=== PATIENT | male | born 1985 | race Caucasian/White ===

== ENCOUNTER 2023-04-19 08:51 | Observation (INO) ==
--- NOTE | 2023-04-19 09:10 | Emergency Department Note ---
Impression & Plan AMS (altered mental status), Acute hyperglycemia, Abnormal results of thyroid function studies, Acute urinary retention ED Provider Note NAME: CLAIRE VILLASENOR AGE: 38 SEX: M : 1985 ARRIVES VIA: Ambulance INFORMANT: Patient, ED PROVIDER(S): Brody Lino DO CHIEF COMPLAINT: Altered mental status HPI: The patient is a 38-year-old male who presented to the emergency department for an evaluation of altered mental status. The patient recently was at his methadone clinic appointment. He did receive his methadone. He had an episode where he became very confused. 911 was called. The patient at this time is awake and alert. The patient states he had a syncopal episode yesterday. He denies having any neck pain or back pain. He does complain of some abdominal pain. He denies chest pain or fever. He denies any alcohol or IV drug use. ROS: See above HPI for pertinent positives & negatives. A total of 10 systems reviewed and were otherwise negative. PAST MEDICAL HISTORY: See Below PAST SURGICAL HISTORY: See Below FAMILY HISTORY: See Below SOCIAL HISTORY: See Below HOME MEDICATIONS: See Below ALLERGIES: See Below VITALS: See Below PHYSICAL EXAMINATION: GENERAL: Patient is awake alert in no acute distress patient is resting comfortably and showing no signs of anxiety EYES: The conjunctivae are clear. The pupils are round and reactive. EARS, NOSE, MOUTH AND THROAT: The nose is without any evidence of any deformity. Mucous membranes are moist. Tongue is midline. NECK: The neck is nontender and supple. RESPIRATORY: Normal respiratory effort is noted there is no evidence of wheezing rhonchi or rales CARDIOVASCULAR: Regular rate and rhythm noted there no murmurs rubs or gallops normal S1 normal S2. GASTROINTESTINAL: The abdomen is soft. There is diffuse tenderness to palpation. There is no guarding rigidity. BACK: No midline tenderness or or step-off noted range of motion in flexion extension as well as rotation no signs of muscle spasm noted MUSCULOSKELETAL/EXTREMITIES: There is no evidence of gross deformity full range of motion is noted in the hips and shoulders. SKIN: There is no obvious evidence of any rash. There are no petechiae, pallor or cyanosis noted. NEUROLOGIC: Patient is awake alert and oriented x3 strength is symmetric patellar reflexes are 2+ bilaterally MEDICAL DECISION MAKING: The patient is a 38-year-old male who presented to the emergency department for an evaluation of altered mental status. The patient reportedly had an altered mental status after he received his methadone. He normally does not have this much lethargy afterwards. I discussed the patient's laboratory and radiographic studies with him. He was treated with IV fluids in the emergency department. He was also treated with IV insulin for hyperglycemia. The patient was found to have urinary retention. He was treated with a Rasheed catheter. Given the patient's findings I do not feel he would be a good candidate for outpatient management. For this reason I discussed his condition with the on-call [facility]ist. They have agreed to evaluate the patient in the emergency department for further management and disposition. Triage Nursing notes reviewed. Prior medical records reviewed Vital Signs: reviewed and remarkable for no significant abnormalities Differential diagnosis: Infection, hypoglycemia, electrolyte abnormalities, overdose, toxicologic, cardiac sources, intracerebral event, neurologic, trauma, as well as other pathologies. ER treatment provided: See below Diagnostics interpreted by me: ECG: EKG was obtained in the emergency department. My interpretation is normal sinus rhythm at 73 bpm. There is no ectopy. There is no acute ST segment abnormalities noted. No previous tracing was available. Cardiac Monitoring: An order was placed for continuous cardiac monitoring. The monitor shows a rate of 66 bpm with sinus rhythm. Laboratory studies: As stated above and show below. Imaging studies: See below. Radiographic imaging was reviewed by myself Consultation(s): I discussed this case with Sabine who is on-call for the [facility] Hospitalist group. Past Med/Surg History Medical History (Updated 04/19/23 @ 14:44 by Brody Lino DO) No significant past medical history Social History Smoking Status: Current every day smoker Preferred Language: Slovak Feels Safe at Home: Yes Allergies Allergies Allergy/AdvReac Type Severity Reaction Status Date / Time No Known Allergies Allergy Unverified 04/19/23 11:05 Home Meds Home Medications Medication Instructions Recorded Confirmed Methadone 114 mg PO UD 04/19/23 04/19/23 Results & Data (ED) Vital Signs Vital Signs - 24 hr 04/19/23 08:56 04/19/23 08:58 04/19/23 09:00 Temperature 36.9 C Temperature Source Oral Pulse Rate 75 75 74 Pulse Rate [Apical] Pulse Rate [Right Finger] Pulse Rate from SpO2 Sensor 75 74 Pulse Rhythm Regular Pulse Rhythm [Apical] Pulse Strength Normal Pulse Strength [Apical] Respiratory Rate 15 14 20 Respiratory Effort / Characteristics Non-Labored Respiratory Depth Normal Respiratory Pattern Regular Blood Pressure 125/90 Blood Pressure [Right Arm] Blood Pressure Mean 101 Blood Pressure Mean [Right Arm] Blood Pressure Position Sitting Blood Pressure Position [Right Arm] Pulse Oximetry 100 100 100 Oxygen Delivery Method Room Air Room Air Room Air Sepsis Recent Fever Within 48 Hours No Sepsis New/Unexplained Change in Mental Status No Sepsis Action Taken by Nursing No Action Required 04/19/23 09:10 04/19/23 09:12 04/19/23 09:17 Temperature Temperature Source Pulse Rate 73 72 Pulse Rate [Apical] Pulse Rate [Right Finger] Pulse Rate from SpO2 Sensor 75 Pulse Rhythm Pulse Rhythm [Apical] Pulse Strength Pulse Strength [Apical] Respiratory Rate 18 Respiratory Effort / Characteristics Respiratory Depth Respiratory Pattern Blood Pressure Blood Pressure [Right Arm] Blood Pressure Mean Blood Pressure Mean [Right Arm] Blood Pressure Position Blood Pressure Position [Right Arm] Pulse Oximetry 92 98 Oxygen Delivery Method Room Air Room Air Sepsis Recent Fever Within 48 Hours Sepsis New/Unexplained Change in Mental Status Sepsis Action Taken by Nursing 04/19/23 09:20 04/19/23 09:30 04/19/23 09:40 Temperature Temperature Source Pulse Rate 71 73 70 Pulse Rate [Apical] Pulse Rate [Right Finger] Pulse Rate from SpO2 Sensor 71 73 70 Pulse Rhythm Pulse Rhythm [Apical] Pulse Strength Pulse Strength [Apical] Respiratory Rate 12 13 14 Respiratory Effort / Characteristics Respiratory Depth Respiratory Pattern Blood Pressure Blood Pressure [Right Arm] Blood Pressure Mean Blood Pressure Mean [Right Arm] Blood Pressure Position Blood Pressure Position [Right Arm] Pulse Oximetry 100 99 98 Oxygen Delivery Method Room Air Room Air Room Air Sepsis Recent Fever Within 48 Hours Sepsis New/Unexplained Change in Mental Status Sepsis Action Taken by Nursing 04/19/23 09:50 04/19/23 10:29 04/19/23 10:30 Temperature Temperature Source Pulse Rate 70 73 69 Pulse Rate [Apical] Pulse Rate [Right Finger] Pulse Rate from SpO2 Sensor 70 70 69 Pulse Rhythm Pulse Rhythm [Apical] Pulse Strength Pulse Strength [Apical] Respiratory Rate 16 14 12 Respiratory Effort / Characteristics Respiratory Depth Respiratory Pattern Blood Pressure 110/84 108/80 Blood Pressure [Right Arm] Blood Pressure Mean 92 89 Blood Pressure Mean [Right Arm] Blood Pressure Position Blood Pressure Position [Right Arm] Pulse Oximetry 100 100 98 Oxygen Delivery Method Room Air Room Air Room Air Sepsis Recent Fever Within 48 Hours Sepsis New/Unexplained Change in Mental Status Sepsis Action Taken by Nursing 04/19/23 11:06 04/19/23 13:19 04/19/23 13:37 Temperature Temperature Source Pulse Rate 67 Pulse Rate [Apical] Pulse Rate [Right Finger] 68 Pulse Rate from SpO2 Sensor Pulse Rhythm Pulse Rhythm [Apical] Pulse Strength Pulse Strength [Apical] Respiratory Rate 14 Respiratory Effort / Characteristics Non-Labored Respiratory Depth Normal Respiratory Pattern Blood Pressure Blood Pressure [Right Arm] 117/84 112/78 Blood Pressure Mean Blood Pressure Mean [Right Arm] 95 89 Blood Pressure Position Blood Pressure Position [Right Arm] Semi-fowlers Pulse Oximetry 97 Oxygen Delivery Method Room Air Sepsis Recent Fever Within 48 Hours Sepsis New/Unexplained Change in Mental Status Sepsis Action Taken by Nursing 04/19/23 15:00 Temperature Temperature Source Pulse Rate Pulse Rate [Apical] 66 Pulse Rate [Right Finger] Pulse Rate from SpO2 Sensor Pulse Rhythm Pulse Rhythm [Apical] Regular Pulse Strength Pulse Strength [Apical] Normal Respiratory Rate 18 Respiratory Effort / Characteristics Non-Labored Respiratory Depth Normal Respiratory Pattern Regular Blood Pressure Blood Pressure [Right Arm] 123/88 Blood Pressure Mean Blood Pressure Mean [Right Arm] 99 Blood Pressure Position Blood Pressure Position [Right Arm] Pulse Oximetry 97 Oxygen Delivery Method Room Air Sepsis Recent Fever Within 48 Hours Sepsis New/Unexplained Change in Mental Status Sepsis Action Taken by [facility] Medications Current Medication List: was personally reviewed by me Laboratory Data Attestation: I reviewed the patient's lab results. 04/19/23 09:12 04/19/23 09:12 Lab Results 04/19/23 04/19/23 04/19/23 Range/Units 09:00 09:12 09:12 WBC 5.60 (4.8-10.8) K/ul RBC 3.97 L (4.70-6.10) M/uL Hgb 12.2 L (14.0-18.0) g/dl Hct 36.3 L (42.0-52.0) % MCV 91.4 (80.0-100.0) fL MCH 30.7 (25.0-34.0) pg MCHC 33.6 (32.0-36.0) g/dL RDW Std Deviation 44.2 (36.4-46.3) fL RDW Coeff of Nick 13.2 (11.5-14.5) % Plt Count 326 (130-400) K/uL MPV 9.6 (9.4-12.4) fL Immature Gran % (Auto) 0.2 % Neut % (Auto) 61.3 % Lymph % (Auto) 31.6 % [place] % (Auto) 5.0 % Eos % (Auto) 1.4 % Baso % (Auto) 0.5 % Neut # (Auto) 3.43 (1.40-6.50) K/uL Lymph # (Auto) 1.77 (1.20-3.40) K/uL [place] # (Auto) 0.28 (0.11-0.59) K/uL Eos # (Auto) 0.08 (0.00-0.50) K/uL Baso # (Auto) 0.03 (0.00-0.20) K/uL Immature Gran # (Auto) 0.01 (0.01-0.20) K/uL VBG pH (7.36-7.41) VBG pCO2 (38-50) mmHg VBG pO2 mmHg VBG HCO3 mmol/L VBG O2 Saturation % VBG Base Excess mEq/L Sodium 131 L (136-145) mmol/L Potassium 4.6 (3.5-5.1) mmol/L Chloride 95 L (98-107) mmol/L Carbon Dioxide 28 (21-32) mmol/L Anion Gap 8 (3-11) BUN 37 H (6-23) mg/dl Creatinine 1.27 (0.6-1.4) mg/dl Est Cr Clr Drug Dosing 57.6 ml/min Est GFR ( Amer) 83.7 ml/min Est GFR (Non-Af Amer) 72.2 ml/min BUN/Creatinine Ratio 29.1 H (10-20) Glucose 329 H* (70-99(Fasting)) mg/dl POC Glucose 367 H* (70-99) mg/dl Calcium 9.5 (8.6-10.3) mg/dl Magnesium 2.1 (1.7-2.4) mg/dl Total Bilirubin 0.4 (0.2-1.0) mg/dl AST 26 (13-39) U/L ALT 75 H (7-52) U/L Alkaline Phosphatase 102 (34-104) U/L Ammonia 19.0 (18-72) umol/L Total Creatine Kinase 88 (30-223) U/L Troponin I High Sens < 2.3 Cancelled (0-20) pg/ml Total Protein 8.2 (6.0-8.3) gm/dl Albumin 4.2 (3.4-5.0) gm/dl Globulin 4.0 (2.5-4.0) gm/dl Albumin/Globulin Ratio 1.1 (0.9-2) TSH 150.058 H (0.300-4.500) uIu/ml Free T4 0.52 L (0.61-1.60) ng/dl Urine Color Urine Appearance (Clear) Urine pH (4.5-7.5) Ur Specific [place] (1.000-1.030) Urine Protein (Negative) Urine Glucose (UA) (Negative) Urine Ketones (Negative) Urine Blood (Negative) Urine Nitrite (Negative) Urine Bilirubin (Negative) Urine Urobilinogen (Negative) Ur Leukocyte Esterase (Negative) Urine WBC (Auto) (0-5) /hpf Urine RBC (Auto) (0-4) /hpf U Hyaline Cast (Auto) (0-5) /lpf U Epithel Cells (Auto) (0-5) /lpf Urine Bacteria (Auto) (Negative) Urine Opiates Screen (Neg) Ur Methadone, Qual (Neg) Urine Barbiturates (Neg) Ur Phencyclidine (PCP) (Neg) U Amphetamin/Meth Scrn (Neg) MDMA (Ecstasy) Screen (Neg) U Benzodiazepines Scrn (Neg) Ur Cocaine Metabolite (Neg) U Marijuana (THC) Screen (Neg) Ethyl Alcohol mg/dL (<10.0) mg/dl 04/19/23 04/19/23 04/19/23 Range/Units 09:21 11:49 12:15 WBC (4.8-10.8) K/ul RBC (4.70-6.10) M/uL Hgb (14.0-18.0) g/dl Hct (42.0-52.0) % MCV (80.0-100.0) fL MCH (25.0-34.0) pg MCHC (32.0-36.0) g/dL RDW Std Deviation (36.4-46.3) fL RDW Coeff of Nick (11.5-14.5) % Plt Count (130-400) K/uL MPV (9.4-12.4) fL Immature Gran % (Auto) % Neut % (Auto) % Lymph % (Auto) % [place] % (Auto) % Eos % (Auto) % Baso % (Auto) % Neut # (Auto) (1.40-6.50) K/uL Lymph # (Auto) (1.20-3.40) K/uL [place] # (Auto) (0.11-0.59) K/uL Eos # (Auto) (0.00-0.50) K/uL Baso # (Auto) (0.00-0.20) K/uL Immature Gran # (Auto) (0.01-0.20) K/uL VBG pH 7.37 (7.36-7.41) VBG pCO2 53 H (38-50) mmHg VBG pO2 48 mmHg VBG HCO3 31 mmol/L VBG O2 Saturation 80.2 % VBG Base Excess 4.2 mEq/L Sodium (136-145) mmol/L Potassium (3.5-5.1) mmol/L Chloride (98-107) mmol/L Carbon Dioxide (21-32) mmol/L Anion Gap (3-11) BUN (6-23) mg/dl Creatinine (0.6-1.4) mg/dl Est Cr Clr Drug Dosing ml/min Est GFR ( Amer) ml/min Est GFR (Non-Af Amer) ml/min BUN/Creatinine Ratio (10-20) Glucose (70-99(Fasting)) mg/dl POC Glucose 273 H (70-99) mg/dl Calcium (8.6-10.3) mg/dl Magnesium (1.7-2.4) mg/dl Total Bilirubin (0.2-1.0) mg/dl AST (13-39) U/L ALT (7-52) U/L Alkaline Phosphatase (34-104) U/L Ammonia (18-72) umol/L Total Creatine Kinase (30-223) U/L Troponin I High Sens (0-20) pg/ml Total Protein (6.0-8.3) gm/dl Albumin (3.4-5.0) gm/dl Globulin (2.5-4.0) gm/dl Albumin/Globulin Ratio (0.9-2) TSH (0.300-4.500) uIu/ml Free T4 (0.61-1.60) ng/dl Urine Color Yellow Urine Appearance Clear (Clear) Urine pH 6.0 (4.5-7.5) Ur Specific [place] 1.029 (1.000-1.030) Urine Protein Trace H (Negative) Urine Glucose (UA) 3+ H (Negative) Urine Ketones Trace H (Negative) Urine Blood Negative (Negative) Urine Nitrite Negative (Negative) Urine Bilirubin Negative (Negative) Urine Urobilinogen Negative (Negative) Ur Leukocyte Esterase Negative (Negative) Urine WBC (Auto) 0 (0-5) /hpf Urine RBC (Auto) 0-4 (0-4) /hpf U Hyaline Cast (Auto) 0 (0-5) /lpf U Epithel Cells (Auto) 0-5 (0-5) /lpf Urine Bacteria (Auto) Negative (Negative) Urine Opiates Screen Neg (Neg) Ur Methadone, Qual Pos H (Neg) Urine Barbiturates Neg (Neg) Ur Phencyclidine (PCP) Neg (Neg) U Amphetamin/Meth Scrn Pos H (Neg) MDMA (Ecstasy) Screen Pos H (Neg) U Benzodiazepines Scrn Neg (Neg) Ur Cocaine Metabolite Neg (Neg) U Marijuana (THC) Screen Neg (Neg) Ethyl Alcohol mg/dL < 10.0 (<10.0) mg/dl Administered Medications Discontinued Medications Sodium Chloride (Nss) 1,000 mls @ 999 mls/hr IV .Q1H1M TERRY Stop: 04/19/23 10:15 Last Infusion: 04/19/23 10:34 Dose: Infused Documented By: Admin: 04/19/23 09:28 Dose: 999 mls/hr Documented By: TONO Sodium Chloride (Nss) 1,000 mls @ 999 mls/hr IV .Q1H1M ONE Stop: 04/19/23 12:04 Last Infusion: 04/19/23 12:12 Dose: Infused Documented By: MARY BETH Admin: 04/19/23 11:11 Dose: 999 mls/hr Documented By: ANIL Insulin Human Regular (Novolin-R Insulin Per Unit Charge) 5 units IV NOW STA Stop: 04/19/23 11:05 Last Admin: 04/19/23 11:11 Dose: 5 units Documented By: ANIL Co-signed By: MARY BETH Ioversol (Optiray 320 500ml) 94 ml IV ONCE ONE Stop: 04/19/23 10:45 Last Admin: 04/19/23 10:44 Dose: 94 ml Documented By: JUAN Imaging Data Attestation: I personally reviewed and interpreted this imaging study as follows: My Impression: CT of the brain was obtained in the emergency department. My interpretation is no intracranial hemorrhage or mass effect, final report below. CT of the abdomen and pelvis was obtained in the emergency department. My interpretation is no free air or signs of bowel obstruction, distended bladder was noted. Final report below. 1 view chest x-ray was obtained in the emergency department. My interpretation is no free air or definite infiltrate, final report below. Radiologist's Impression: Abdomen/Pelvis CT 04/19/23 09:[address] WITH IV CONTRAST CT DOSE: 1255.24 mGy.cm HISTORY: Lower abdominal pain. TECHNIQUE: Multiaxial CT images of the abdomen and pelvis were performed following the use of intravenous contrast. A dose lowering technique was utilized adhering to the principles of ALARA. COMPARISON STUDY: None. FINDINGS: Mild bronchiectasis and a few linear scarlike density seen within the periphery of the lung bases. This is likely chronic. No pneumoperitoneum. No pneumatosis. Subtle deformity and sclerosis at the superior endplates of T9 and T10 likely represent chronic compression deformities. No acute fractures identified. Mild body wall edema. The liver, gallbladder, pancreas, spleen, and adrenal glands are unremarkable. There is a punctate stone within the upper pole the right kidney. The kidneys enhance normally. There is mild bilateral hydronephrosis. This is likely due to the severely distended bladder. No ureteral stones identified. There is mild bladder wall thickening for the degree of distention. Trace ascites within the right lower quadrant is noted. No retroperitoneal or pelvic lymphadenopathy. Mild calcified plaque within the normal caliber abdominal aorta. The main portal vein is patent. Moderate fecal retention. Questionable mild thickening throughout the colon and rectum. This could represent a low-grade proctocolitis. Normal appendix. No dilated loops of bowel to suggest an obstruction. IMPRESSION: 1. Severely distended bladder with mild bladder wall thickening. This could be due to chronic outlet obstruction and/or an associated cystitis. Rasheed catheterization recommended for decompression. In addition, a urinalysis is suggested to assess for a cystitis. 2. Mild bilateral hydronephrosis which is likely due to the severely distended bladder. 3. Right-sided nephrolithiasis. 4. Normal appendix. 5. No evidence for a bowel obstruction. 6. Trace ascites. 7. Questionable mild thickening throughout the colon and rectum. This could represent a low-grade proctocolitis. 8. Additional findings as described above. ACT 112: Negative or not required by law. Electronically signed by: Evgeny Scott M.D. 04/19/2023 11:22 AM Chest X-Ray 04/19/23 09:06 XR chest 1V portable CLINICAL HISTORY: weakness TECHNIQUE: Single frontal radiograph of the chest was obtained. Comparison: None available at the time of this dictation. FINDINGS: No lines and tubes are seen. The cardiomediastinal silhouette is normal. The lungs are clear. No evidence of pleural effusion or pneumothorax. IMPRESSION: No acute chest disease. ACT 112: Negative or not required by law. Electronically signed by: Enrico Hamilton M.D. 04/19/2023 9:[address] 04/19/23 09:07 CT head/brain wo con CLINICAL HISTORY: ams Technique: Contiguous axial CT images of the head were acquired from the base of the skull to the vertex without intravenous contrast administration. Images were viewed in brain, subdural and bone windows. Automated dose lowering techniques and/or adjustment according to patient size were utilized for this exam. Comparison: None available at the time of this dictation. Findings: The ventricles, basal cisterns, and cerebral sulci are normal. There is no acute intracranial hemorrhage or evidence of acute territorial infarction. Neither mass effect, shift of the midline structures, nor abnormal extra-axial fluid collections are shown. Imaged portions of the paranasal sinuses and mastoid air cells are clear. The orbits appear normal. There are no acute fractures of the calvaria or scalp swelling. Impression: No acute intracranial hemorrhage, no evidence of acute territorial infarction or other acute intracranial disease process. ACT 112: Negative or not required by law. Electronically signed by: Enrico Hamilton M.D. 04/19/2023 11:13 AM Discharge Plan Visit Data Chief Complaint: Illness Stated Complaint: CONFUSION ED Provider: Brody Lino Discharge Problem: AMS (altered mental status), Acute hyperglycemia, Abnormal results of thyroid function studies, Acute urinary retention Patient Disposition: Being Evaluated by Hospitalist Forms Stand Alone Forms: My [facility], Important Visit Information Prescriptions Prescriptions: No Action Methadone 114 mg PO UD Rx Instructions: Per caregiver, pt visits clinic for his doses. Referrals Referrals: PCP,NO [Physician] - Discharge Problem: AMS (altered mental status) Qualifiers: Altered mental status type: unspecified Qualified Code(s): R41.82 - Altered mental status, unspecified
[2023-04-19] MEDS: SODIUM CHLORIDE 0.9% 1,000 ML IV SCH ×2 (09:28→17:56)
[2023-04-19 09:40] LABS: Basophils # (auto) 0.03 K/uL (0.00-0.20); Basophils % (auto) 0.5 %; Eosinophils # (auto) 0.08 K/uL (0.00-0.50); Eosinophils % (auto) 1.4 %; Hematocrit (blood only) 36.3 % (42.0-52.0); Hemoglobin 12.2 g/dl (14.0-18.0); Immature Granulocytes # (auto) 0.01 K/uL (0.01-0.20); Immature Granulocytes % (auto) 0.2 %; Lymphocytes # (auto) 1.77 K/uL (1.20-3.40); Lymphocytes % (auto) 31.6 %; Mean Corpuscular Hemoglobin 30.7 pg (25.0-34.0); Mean Corpuscular Hgb Conc 33.6 g/dL (32.0-36.0); Mean Corpuscular Volume 91.4 fL (80.0-100.0); Mean Platelet Volume 9.6 fL (9.4-12.4); Monocytes # (auto) 0.28 K/uL (0.11-0.59); Neutrophils # (auto) 3.43 K/uL (1.40-6.50); Neutrophils % (auto) 61.3 %; Platelet Count 326 K/uL (130-400); RDW Coefficient of Variation 13.2 % (11.5-14.5); RDW Standard Deviation 44.2 fL (36.4-46.3); Red Blood Count 3.97 M/uL (4.70-6.10)
[2023-04-19 09:41] LABS: Base Excess VBG 4.2 mEq/L; HCO3 VBG 31 mmol/L; Oxygen Saturation VBG 80.2 %; PCO2 VBG 53 mmHg (38-50); PO2 VBG 48 mmHg; pH VBG 7.37 (7.36-7.41)
[2023-04-19 09:57] LABS: Alanine Aminotransferase 75 U/L (7-52); Albumin Globulin Ratio 1.1 (0.9-2); Albumin Level 4.2 gm/dl (3.4-5.0); Alkaline Phosphatase 102 U/L (34-104); Anion Gap 8 (3-11); Aspartate Aminotransferase 26 U/L (13-39); BUN Creatinine Ratio 29.1 (10-20); Bilirubin,Total 0.4 mg/dl (0.2-1.0); Blood Urea Nitrogen 37 mg/dl (6-23); Calcium 9.5 mg/dl (8.6-10.3); Carbon Dioxide 28 mmol/L (21-32); Chloride 95 mmol/L (98-107); Creatine Kinase 88 U/L (30-223); Creatinine Clr Calc Pharmacy 57.6 ml/min; Est GFR (African American) 83.7 ml/min; Est GFR (Non-African American) 72.2 ml/min; Glucose 329 mg/dl (70-99(Fasting)); Magnesium 2.1 mg/dl (1.7-2.4); Potassium 4.6 mmol/L (3.5-5.1); Sodium 131 mmol/L (136-145); Total Protein 8.2 gm/dl (6.0-8.3)
--- NOTE | 2023-04-19 09:57 | XRay Report ---
XR chest 1V portable CLINICAL HISTORY: weakness TECHNIQUE: Single frontal radiograph of the chest was obtained. Comparison: None available at the time of this dictation. FINDINGS: No lines and tubes are seen. The cardiomediastinal silhouette is normal. The lungs are clear. No evid ence of pleural effusion or pneumothorax. IMPRESSION: No acute chest disease. ACT 112: Negative or not required by law. Electronically signed by: Enrico Hamilton M.D. 04/19/2023 9:55 AM
[2023-04-19] MEDS: OPTIRAY 320 500ml IV ONE (10:44)
[2023-04-19] MEDS: NovoLIN-R INSULIN PER UNIT CHARGE IV STA (11:11)
[2023-04-19] MEDS: SODIUM CHLORIDE 0.9% 1,000 ML IV ONE (11:11)
--- NOTE | 2023-04-19 11:14 | CT Scan Report ---
CT head/brain wo con CLINICAL HISTORY: ams Technique: Contiguous axial CT images of the head were acquired from the base of the skull to the robbie ludy without intravenous contrast administration. Images were viewed in brain, subdural and [facility]. Automated dose lowering techniques and/or adjustment according to patient size were utilized for this exam. Comparison: None available at the time of this dictation. Findings: The ventricles, basal cisterns, and cerebral sulci are normal. There is no acute intracranial hemorrh age or evidence of acute territorial infarction. Neither mass effect, shift of the midline structures , nor abnormal extra-axial fluid collections are shown. Imaged portions of the paranasal sinuses and mastoid air cells are clear. The orbits appear normal. There are no acute fractures of the calvaria or scalp swelling. Impression: No acute intracranial hemorrhage, no evidence of acute territorial infarction or other acute intracra nial disease process. ACT 112: Negative or not required by law. Electronically signed by: Enrico Hamilton M.D. 04/19/2023 11:13 AM
[2023-04-19 11:23] LABS: Thyroid Stimulating Hormone 150.058 uIu/ml (0.300-4.500); Troponin I High Sensitivity < 2.3 pg/ml (0-20)
--- NOTE | 2023-04-19 11:24 | CT Scan Report ---
ABDOMEN AND PELVIS CT WITH IV CONTRAST CT DOSE: 1255.24 mGy.cm HISTORY: Lower abdominal pain. TECHNIQUE: Multiaxial CT images of the abdomen and pelvis were performed following the use of intrave nous contrast. A dose lowering technique was utilized adhering to the principles of ALARA. COMPARISON STUDY: None. FINDINGS: Mild bronchiectasis and a few linear scarlike density seen within the periphery of the lung bases. This is likely chronic. No pneumoperitoneum. No pneumatosis. Subtle deformity and sclerosis a t the superior endplates of T9 and T10 likely represent chronic compression deformities. No acute fra ctures identified. Mild body wall edema. The liver, gallbladder, pancreas, spleen, and adrenal glands are unremarkable. There is a punctate stone within the upper pole the right kidney. The kidneys enha nce normally. There is mild bilateral hydronephrosis. This is likely due to the severely distended bl adder. No ureteral stones identified. There is mild bladder wall thickening for the degree of distent ion. Trace ascites within the right lower quadrant is noted. No retroperitoneal or pelvic lymphadenop athy. Mild calcified plaque within the normal caliber abdominal aorta. The main portal vein is patent . Moderate fecal retention. Questionable mild thickening throughout the colon and rectum. This could represent a low-grade proctocolitis. Normal appendix. No dilated loops of bowel to suggest an obstruc tion. IMPRESSION: 1. Severely distended bladder with mild bladder wall thickening. This could be due to chronic outlet obstruction and/or an associated cystitis. Rasheed catheterization recommended for decompression. In ad dition, a urinalysis is suggested to assess for a cystitis. 2. Mild bilateral hydronephrosis which is likely due to the severely distended bladder. 3. Right-sided nephrolithiasis. 4. Normal appendix. 5. No evidence for a bowel obstruction. 6. Trace ascites. 7. Questionable mild thickening throughout the colon and rectum. This could represent a low-grade pro ctocolitis. 8. Additional findings as described above. ACT 112: Negative or not required by law. Electronically signed by: Evgeny Scott M.D. 04/19/2023 11:22 AM
--- NOTE | 2023-04-19 11:53 | Electrocardiogram Report ---
Test Reason : Blood Pressure : / mmHG Vent. Rate : 073 BPM Atrial Rate : 073 BPM P-R Int : 126 ms QRS Dur : 084 ms QT Int : 438 ms P-R-T Axes : 081 087 066 degrees QTc Int : 482 ms Normal sinus rhythm ST elevation, consider early repolarization, pericarditis, or injury Prolonged QT Abnormal ECG No previous ECGs available Confirmed by Brody Nguyễn ([id number]) on 04/19/2023 11:52:56 AM Referred By: REFERRED SELF Confirmed By:rBody Nguyễn
[2023-04-19 12:00] LABS: T4 Free Thyroxine 0.52 ng/dl (0.61-1.60)
[2023-04-19 12:48] LABS: Appearance Urine Clear (Clear); Bacteria Urine Automated Negative (Negative); Bilirubin Urine Negative (Negative); Blood Urine Negative (Negative); Cast Urine Automated 0 /lpf (0-5); Color Urine Yellow; Epithelial Cell Urine Auto 0-5 /lpf (0-5); Glucose Urine UA 3+ (Negative); Ketones Urine Trace (Negative); Leukocyte Esterase Urine Negative (Negative); Nitrite Urine Negative (Negative); Protein Urine Trace (Negative); RBC Urine Automated 0-4 /hpf (0-4); Specific Gravity Urine 1.029 (1.000-1.030); Urobilinogen Urine Negative (Negative); WBC Urine Automated 0 /hpf (0-5)
[2023-04-19 13:31] LABS: Amphetamines+Metham, Urine Pos (Neg); Barbiturates, Urine Neg (Neg); Benzodiazepine, Urine Neg (Neg); Cocaine, Urine Neg (Neg); MDMA (Ecstacy), Urine Pos (Neg); Marijuana, Urine Neg (Neg); Methadone, Urine Pos (Neg); Opiate, Urine Neg (Neg); Phencyclidine, Urine Neg (Neg)
--- NOTE | 2023-04-19 15:09 | History & Physical Report ---
Date of Service April 19, 2023 Assessment & Plan (1) AMS (altered mental status): (2) Methamphetamine use: (3) Methadone use: Plan: This is a 38 yo M with a PMH of poorly controlled type 1 diabetes, hypothyroidism, mood disorder, history of opioid use disorder now on methadone, methamphetamine abuse, tobacco use and other medical problems listed below who was sent over from a methadone clinic in [place] with altered mental status. Developed AMS while at methadone clinic after dose, sent to [facility] ED CT head No acute intracranial hemorrhage, no evidence of acute territorial infarction or other acute intracranial disease process VSS, no leukocytosis, initial glucose 329, no anion gap Endorses smoking meth 5 days ago, UDS positive for methadone, meth and ecstasy/mdma Initially concerned for possible serotonin syndrome but not taking his ser traline or Seroquel on his outpatient med list - only taking insulin somewhat regularly Lethargic but awakens and answers questions appropriately, A&Ox3 Afebrile, no tremulousness, no focal neuro deficit Continue gentle fluids, blood cultures pending, monitor on tele, reassess resuming methadone in AM based on mentation (4) Diabetes type I: Plan: A1c 11.3 in Jan 2023, repeat a1c tomorrow AM Hold home agents SSI while in-patient Glycemic consult placed given poor compliance BSG AC HS (5) Abnormal results of thyroid function studies: (6) Hypothyroidism: Plan: TSH 150, free T4 0.52 Last took levothyroxine 1 week ago and since ran out Outpatient TFTs consistently abnormal in setting of noncompliance Given missed home dose, continue Follow up with PCP for repeat TFTs (7) Acute urinary retention: Plan: Denies history of urinary retention CT abd/pelvis with severely distended bladder with mild bladder wall thickening. This could be due to chronic outlet obstruction and/or an associated cystitis. Bansal catheterization recommended for decompression. In addition, a urinalysis is suggested to assess for a cystitis. Mild bilateral hydronephrosis which is likely due to the severely distended bladder. Abdominal fullness resolved since bansal placed Routine urology consult given urinary retention UA without evidence of UTI (8) Bipolar disorder: Plan: Not currently on any psych medications (9) Tobacco use disorder: Plan: Smoking cessation recommended. Declined offer for nicotine patch (10) Underweight: Plan: Underweight with BMI of 18 Nutrition assessment, likely protein calorie malnutrition (11) Non compliance w medication regimen: Plan: DVT Ppx: SQ heparin Code status: FULL PCP: [facility]: admitted to pcu Patient seen in collaboration with Dr. Ceja. Please see addendum. I spent a total of 75 minutes coordinating, documenting, and providing care for this patient excluding time spent in the performance of separately billed services. History of Present Illness Chief Complaint: Altered mental status Primary Care Provider: vA Graves MD This is a 38 yo M with a PMH of poorly controlled type 1 diabetes, hypothyroidism, mood disorder, history of opioid use disorder now on methadone, methamphetamine abuse, tobacco use and other medical problems listed below who was sent over from a methadone clinic in [place] with altered mental status. Patient is currently residing at a homeless fpc in [place]. Ambulates with a cane at baseline due to left foot drop thought to be due to n erve damage from a prolonged hospitalization. Is prescribed multiple medications including gabapentin, Zoloft and Seroquel but has not taking those currently. Only medications he takes is insulin, which she states he last took this morning and levothyroxine which she last took 1 week ago and since ran out. Endorses smoking methamphetamine 5 days ago and felt okay afterwards until his time at the methadone clinic this morning. After receiving medication this morning, had a reportedly acute episode of confusion and did not return to baseline so was sent to the ED for further evaluation. States he smoked meth in the setting of taking methadone a few months prior and did not have a reaction like this. Denies any IV drug use. Currently feels worn out and sleepy but no longer endorsing confusion. No hallucinations. No headache, visual changes, lightheadedness, chest pain, palpitations, shortness of breath, nausea, vomiting, abdominal pain, dysuria, hematuria, diarrhea or constipation. States he did have some lower abdominal discomfort prior to arrival that is since resolved with Bansal catheter placement. Allergies Allergy/AdvReac Type Severity Reaction Status Date / Time No Known Allergies Allergy Unverified 04/19/23 11:05 Home Medications Medication Instructions Recorded Confirmed Type Methadone 114 mg PO DAILY 04/19/23 04/19/23 History insulin aspart U-100 100 unit/mL 0 - 12 unit subcut QID 04/19/23 04/19/23 History subcutaneous solution (Novolog U-100 Insulin aspart) insulin glargine 100 unit/mL (3 18 unit subcut PM 04/19/23 04/19/23 History mL) subcutaneous pen (Lantus Solostar U-100 Insulin) levothyroxine 88 mcg tablet 88 mcg PO DAILY 04/19/23 04/19/23 History Past Med/Surg History Medical History (Updated 04/19/23 @ 16:47 by Sabine Leblanc PA-C) Opioid use disorder Bipolar disorder Tobacco use disorder Non compliance w medication regimen Hypothyroidism Diabetes type I No significant past medical history Surgical History (Updated 04/19/23 @ 16:13 by Sabine Leblanc PA-C) No pertinent past surgical history Family History Other Alcohol dependence with other alcohol-induced disorder Mood disorder Social History Smoking Status: Current every day smoker Tobacco Type: Cigarettes packs per day: 0.5; Hx Alcohol Use: No Hx Substance Use: Yes Non-Prescribed Medications: Methamphetamines Last Used Substance: Days (ago) Preferred Language: Mauritian [employer] Required: No Beliefs That Will Affect Care: None Current Living Situation: Homeless Current Living Situation Comment: homeless fpc Other Information That Helps Us Care for You: No Feels Safe at Home: Yes Safety Concerns: Feels Safe At This Time Assistive Devices: Cane Review of Systems Review of Systems: At least ten systems reviewed and negative except as noted in the HPI. Physical Exam Physical Exam: General Appearance: WD/WN, vitals as above, NAD, sitting up in bed, lethargic but awakens and answers questions appropriately, thin and frail appearing Head: normocephalic, atraumatic Eyes: normal inspection, PERRL, conjunctivae normal, anicteric sclerae ENT: external ear and nose normal, oropharynx with dry mucous membranes, edentulous Neck: normal visual inspection, trachea midline, no thyromegaly Respiratory: normal respiratory effort, lungs clear to auscultation, no wheeze, rales, rhonchi. No accessory muscle use Cardiovascular: regular rate, rhythm, no murmur, normal peripheral pulses, no BLE edema. Vessels: no JVD Chest: normal inspection of chest Abdomen/GI: normal bowel sounds, soft, nontender, no hepatosplenomegaly : Bansal Extremities/Musculoskeletal: no cyanosis or clubbing, extremities motor strength 5/5 Neurologic: PERRL, EOMI, accommodation nl, no face palsy, no dysarthria, CN's II-XI intact bilaterally and moves all extremities Psychiatric: A+Ox3, euthymic affect Skin: no rashes, normal color, warm/dry Results & Data Results & Data Vital Signs (Past 12 Hours) Vital Signs Temp Pulse Pulse Pulse Resp BP BP 04/19/23 15:00 66 18 123/88 04/19/23 13:37 112/78 04/19/23 13:19 67 04/19/23 11:06 68 14 117/84 04/19/23 10:30 69 12 108/80 04/19/23 10:29 73 14 110/84 04/19/23 09:50 70 16 04/19/23 09:40 70 14 04/19/23 09:30 73 13 04/19/23 09:20 71 12 04/19/23 09:17 04/19/23 09:12 72 04/19/23 09:10 73 18 04/19/23 09:00 74 20 04/19/23 08:58 75 14 04/19/23 08:56 36.9 C 75 15 125/90 Pulse Ox O2 Del Method 04/19/23 15:00 97 Room Air 04/19/23 13:37 04/19/23 13:19 04/19/23 11:06 97 Room Air 04/19/23 10:30 98 Room Air 04/19/23 10:29 100 Room Air 04/19/23 09:50 100 Room Air 04/19/23 09:40 98 Room Air 04/19/23 09:30 99 Room Air 04/19/23 09:20 100 Room Air 04/19/23 09:17 98 Room Air 04/19/23 09:12 04/19/23 09:10 92 Room Air 04/19/23 09:00 100 Room Air 04/19/23 08:58 100 Room Air 04/19/23 08:56 100 Room Air Laboratory Results Short CBC 04/19/23 Range/Units 09:12 WBC 5.60 (4.8-10.8) K/ul Hgb 12.2 L (14.0-18.0) g/dl Hct 36.3 L (42.0-52.0) % Plt Count 326 (130-400) K/uL BMP 04/19/23 09:12 Sodium 131 L Potassium 4.6 Chloride 95 L Carbon Dioxide 28 BUN 37 H Creatinine 1.27 Glucose 329 H* Calcium 9.5 Cardiac Enzymes 04/19/23 Range/Units 09:12 Total Creatine Kinase 88 (30-223) U/L Liver Function 04/19/23 Range/Units 09:12 Total Bilirubin 0.4 (0.2-1.0) mg/dl AST 26 (13-39) U/L ALT 75 H (7-52) U/L Alkaline Phosphatase 102 (34-104) U/L Albumin 4.2 (3.4-5.0) gm/dl Urine 04/19/23 Range/Units 12:15 Urine Color Yellow Urine Appearance Clear (Clear) Urine pH 6.0 (4.5-7.5) Ur Specific [place] 1.029 (1.000-1.030) Urine Protein Trace H (Negative) Urine Glucose (UA) 3+ H (Negative) Diagnostic Findings Abdomen/Pelvis CT 04/19/23 09:[address] WITH IV CONTRAST CT DOSE: 1255.24 mGy.cm HISTORY: Lower abdominal pain. TECHNIQUE: Multiaxial CT images of the abdomen and pelvis were performed following the use of intravenous contrast. A dose lowering technique was utilized adhering to the principles of ALARA. COMPARISON STUDY: None. FINDINGS: Mild bronchiectasis and a few linear scarlike density seen within the periphery of the lung bases. This is likely chronic. No pneumoperitoneum. No pneumatosis. Subtle deformity and sclerosis at the superior endplates of T9 and T10 likely represent chronic compression deformities. No acute fractures identified. Mild body wall edema. The liver, gallbladder, pancreas, spleen, and adrenal glands are unremarkable. There is a punctate stone within the upper pole the right kidney. The kidneys enhance normally. There is mild bilateral hydronephrosis. This is likely due to the severely distended bladder. No ureteral stones identified. There is mild bladder wall thickening for the degree of distention. Trace ascites within the right lower quadrant is noted. No retroperitoneal or pelvic lymphadenopathy. Mild calcified plaque within the normal caliber abdominal aorta. The main portal vein is patent. Moderate fecal retention. Questionable mild thickening throughout the colon and rectum. This could represent a low-grade proctocolitis. Normal appendix. No dilated loops of bowel to suggest an obstruction. IMPRESSION: 1. Severely distended bladder with mild bladder wall thickening. This could be due to chronic outlet obstruction and/or an associated cystitis. Bansal catheterization recommended for decompression. In addition, a urinalysis is suggested to assess for a cystitis. 2. Mild bilateral hydronephrosis which is likely due to the severely distended bladder. 3. Right-sided nephrolithiasis. 4. Normal appendix. 5. No evidence for a bowel obstruction. 6. Trace ascites. 7. Questionable mild thickening throughout the colon and rectum. This could represent a low-grade proctocolitis. 8. Additional findings as described above. ACT 112: Negative or not required by law. Electronically signed by: Evgeny Scott M.D. 04/19/2023 11:22 AM Chest X-Ray 04/19/23 09:06 XR chest 1V portable CLINICAL HISTORY: weakness TECHNIQUE: Single frontal radiograph of the chest was obtained. Comparison: None available at the time of this dictation. FINDINGS: No lines and tubes are seen. The cardiomediastinal silhouette is normal. The chun ngs are clear. No evidence of pleural effusion or pneumothorax. IMPRESSION: No acute chest disease. ACT 112: Negative or not required by law. Electronically signed by: Enrico Hamilton M.D. 04/19/2023 9:[address] 04/19/23 09:07 CT head/brain wo con CLINICAL HISTORY: ams Technique: Contiguous axial CT images of the head were acquired from the base of the skull to the vertex without intravenous contrast administration. Images were viewed in brain, subdural and bone windows. Automated dose lowering techniques and/or adjustment according to patient size were utilized for this exam. Comparison: None available at the time of this dictation. Findings: The ventricles, basal cisterns, and cerebral sulci are normal. There is no acute intracranial hemorrhage or evidence of acute territorial infarction. Neither mass effect, shift of the midline structures, nor abnormal extra-axial fluid collections are shown. Imaged portions of the paranasal sinuses and mastoid air cells are clear. The orbits appear normal. There are no acute fractures of the calvaria or scalp swelling. Impression: No acute intracranial hemorrhage, no evidence of acute territorial infarction or other acute intracranial disease process. ACT 112: Negative or not required by law. Electronically signed by: Enrico Hamilton M.D. 04/19/2023 11:13 AM Supervising Physician Co-Signing Physician Notes Pt seen and examined by myself, Ysabel Ceja MD on the day of service. Care was coordinated with Sabine Leblanc PA-C. Pt was AAOx3 when prompted but very drowsy. Admits to using meth and methadone. Denies any previous urinary issues, feels like he has more diarrhea than constipation currently. Hgb 12.2, Na 131 Glucose 329, ALT 75, TSH 150 with T4 0.52, VBG with normal pH, pCO2 of 53 UA with glucose, ketones, protein, Tox screen + for methamphetamines, methadone, MDMA, Head CT unremarkable, Chest XR with no acute changes, Abd/pelvis CT concerning for hydronephrosis, moderate fecal retention and possible proctocolitis, EKG NSR qtc 482. On exam, drowsy, AAOx3, RRR, breath sounds clear, abdomen nontender, no swelling in lower extremities Acute metabolic/toxic encephalopathy- resolved at the time of exam, AAOx3, but drowsy. Head CT unremarkable, tox screen positive, vbg grossly unremarkable. Continue to monitor Uncontrolled DMII- glucose of 329, normal anion gap, Basal/bolus per protocol, Glycemic consult, IV hydration Hydronephrosis- bansal placement in the ED, possibly medication/substance use related, urology consult placed for further recs. Low concern for UTI at this time. Moderate fecal retention, possible proctocolitis- in setting of chronic methadone use, bowel regimen, ?stercoral colitis? Otherwise as above. (1) AMS (altered mental status) Altered mental status type: unspecified Qualified Code(s): R41.82 - Altered mental status, unspecified
[2023-04-19] MEDS ORDERED: ACETAMINOPHEN 325 MG TAB PO PRN (15:21)
[2023-04-19] MEDS ORDERED: GLUCAGON FOR INJ 1 MG VIAL SQ PRN (15:21)
[2023-04-19] MEDS ORDERED: ONDANSETRON INJ 2 MG/ML 2 ML VIAL IV PRN (15:21)
[2023-04-19] MEDS ORDERED: GLUCOSE 10 TAB/TUBE PO PRN (15:21)
[2023-04-19] MEDS ORDERED: POLYETHYLENE (MIRALAX) 17 GM PACK PO PRN (15:21)
[2023-04-19] MEDS ORDERED: DEXTROSE 50% 50 ML SYRINGE IV PRN (15:21)
[2023-04-19] MEDS ORDERED: PHARMACY GLYCEMIC MGMT CONSULT PRN (15:24)
[2023-04-19] MEDS: LEVOTHYROXINE SODIUM 88 MCG TABLET PO ONE (16:53)
[2023-04-19] MEDS: LANTUS PER UNIT CHARGE SQ SCH (16:53)
[2023-04-19] MEDS: INSULIN ASPART PER UNIT CHARGE SC SCH (16:53)
[2023-04-19] MEDS ORDERED: DOCUSATE SODIUM 100 MG CAP PO PRN (17:40)
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
--- OUTSIDE RECORDS SUMMARY | 2023-04-19 19:46 | External Medical Summary | Summary of Care ---
Author Name Unknown Organization [facility] Address [address] [place] [address] Phone [phone] Care Team Providers Care Hop Farm Worker Name Role Phone Jerzy Wayne MD Primary Care Provider [phone] Reason for Referral * Medication Prior Authorization - Pending Review Specialty Diagnoses / Procedures Referred By Contac t Referred To Contact Diagnoses Type 1 diabetes mellitus with hemoglobin A1c goal of less than 8.0% ([facility]) Jerzy Wayne MD [address] [place] [address] Referral ID Status Reason Start Date Expiration Date V isits Requested Visits Authorized [id number] Pending Review 999 999 Reason for Visit * Reason Onset Date Comments Medication Question 03/27/202303/28 Encounter Details Date Type Department Care Team (Late st Contact Info) Description [facility] [place] [address] Jerzy Wayne MD [address] [place] [address] Medication Question (03/28) Allergies No known active allergiesdocumented as of this encounter (statuses as of 03/28/2023) Medications Medication Sig Dispensed Refills Start Date End Date Status Methadone HCl 10 MG/ML Oral Concentrate Take 10.7 mL by mouth in the morning. 0 11/01/2021 Active ViewdleTouch Verio w/Device KitIndications:Type 1 diabetes mellitus with hemoglobin A1c goal of less than 8.0% ([facility]) Use up to 4 times a day E11.9 1 Kit 0 12/02/2021 Active BD Pen Needle Mini U/F 31G X 5 MM (Insulin Pen Needle)Indications: Type 1 diabetes mellitus with hemoglobin A1c goal of less than 8.0% ([facility]) USE THREE TIMES DAILY WITH HUMALOG KWIK [...] Oral Tablet (SEROquel)Indicatio ns:Bipolar 1 disorder, depressed ([facility]) Take 1 Tablet by mouth at bedtime. [...] hemoglobin A1c goal of less than 8.0% ([facility]) Inject 0-12 Units under the skin 4 times a day. 15 mL 5 03/28/2023 Active Lantus SoloStar 100 UNIT/ML Subcutaneous Solution Pen-injectorIndicat ions:Type 1 diabetes mellitus with hemoglobin A1c goal of less than 8.0% ([facility]) Inject 18 Units under the skin at bedtime. 15 mL 5 03/28/2023 Active Levothyroxine Sodium 88 MCG Oral Tablet (Levoxyl)Indication s:Acquired hypothyroidism Take 1 Tablet by mouth daily first thing in the morning. 30 Tablet 5 03/28/2023 Active Midodrine HCl 10 MG Oral Tablet (Proamatine)Indicat ions:Orthostatic hypotension Take 1 Tablet by mouth in the morning and 1 Tablet at noon and 1 Tablet before bedtime. 90 Tablet 03/28/2023 Active OneTouch Delica Plus [id number] s:Type 1 diabetes mellitus with hemoglobin A1c [...] in the morning. 30 Tablet 03/28/2023 Active OneTouch Delica Plus [id number] s:Type 1 diabetes mellitus with hemoglobin A1c [...] January 19, 2023. 14 Tablet 0 01/19/2023 Discontinu ed(Refill) Sertraline HCl 25 MG Oral Tablet (Zoloft) Take 1 Tablet by mouth in the morning. 14 Tablet 0 01/18/2023 Discontinu ed(Refill) Lantus SoloStar 100 UNIT/ML Subcutaneous Solution Pen-injector Inject 18 Units under the skin at bedtime. 15 mL 0 01/18/2023 Discontinu ed(Refill) Insulin Aspart 100 UNIT/ML Subcutaneous Solution Pen-injector (novoLOG) Inject 1-4 units four times daily (morning, noon, evening and bedtime) per sliding scale 15 mL 0 01/18/2023 Discontinu ed(Refill) Mirtazapine 15 MG Oral Tablet (Remeron) Take 1 Tablet by mouth at bedtime. 30 Tablet 1 02/06/2023 Discontinu ed(Refill) documented as of this encounter (statuses as of 03/28/2023) Active Problems Problem Noted Date Diagnosed Date [...] as of this encounter (statuses as of 03/28/2023) Resolved Problems Problem Noted Date Diagnosed Date [...] as of this encounter (statuses as of 03/28/2023) Immunizations Name Administration Dates Next Due Seasonal [...] EST signed * Addendum Note - Marlene Blanco LPN - 03/28/2023 5:08 PM ESTAddended by: MARLENE BLANCO on: 03/28/2023 05:08 PM Modules accepted: Orders * Telephone Encounter - Marelne Blanco LPN - 03/28/2023 5:07 PM EST Pended, pt has appt with PCP on 04/16. * Telephone Encounter - Kelly Green CPhT - 03/27/2023 2:14 PM EST Patient ec [...] calling requesting refills for OneTouch Delica Plus [id number] . Upon chart review, medicationwas last prescribed [...] the patient. Thank you, Kelly Green CPht [employer]ation [employer] [facility] ([facility]) 03/27/2023, 2:17 PM documented in this encounter Plan of Treatment Upcoming Encounters Date Type Department Care Team (Late st Contact Info) Description 04/16/2023 2:20 PM EST Office Visit [facility] [address] [place] [phone] Jerzy Wayne MD [address] [place] [address] 06/22/2023 4:20 PM EDT [facility] [address] [place] [address] Angy Miller MD [address] [place] [address] Health Maintenance Due Date Last Done Comments DISCUSS TOBACCO CESSATION (REFER TO SMARTSET #7345) 1987 Hepatitis B (1 of 3 - [...] the patient have Health Care Power of Industrial Therapist? No Full Code 12/25/2021 1:35 PM 01/06/2022 6:52 PM This order reflects the patients wishes and were consensually agreed upon. Question Answer Comments Discussion of Advance Directives occurred with: Family Does the patient have a Living Will? No Does the patient have Health Care Power of Industrial Therapist? No Care Teams Hop Farm Worker Relationship Specialty Start Date End Date Jerzy Wayne MD [address] [address] PCP - General Family Medicine 06/27/22 documented as of this encounter
--- OUTSIDE RECORDS SUMMARY | 2023-04-19 19:46 | External Medical Summary | Summary of Care ---
Author Name Unknown Organization [facility] Address [address] [place] [address] Phone [phone] Care Team Providers Care Sales Support Technician Name Role Phone Av Wayne MD Primary Care Provider [phone] [phone] Reason for Referral * Medication Prior Authorization - Closed Specialty Diagnoses / Procedures Referred By Contac t Referred To Contact Diagnoses Type 1 diabetes mellitus with hemoglobin A1c goal of less than 8.0% ([facility]) Av Wayne MD [address] [place] [address] Referral ID Status Reason Start Date Expiration Date Visits Re quested Visits Authorized [id number] Closed 999 999 Reason for Visit * Reason Onset Date Comments Medication Question 03/27/202303/28 Encounter Details Date Type Department Care Team (Late st Contact Info) Description 03/27/2023 Telephone [facility] [address] [place] [address] Av Wayne MD [address] [place] [address] Medication Question (03/28) Allergies No known active allergiesdocumented as of this encounter (statuses as of 03/29/2023) Medications Medication Sig Dispensed Refills Start Date End Date Status Methadone HCl 10 MG/ML Oral Concentrate Take 10.7 mL by mouth in the morning. 0 11/01/2021 Active OneTouch Verio w/Device KitIndications:Type 1 diabetes mellitus with hemoglobin A1c goal of less than 8.0% ([facility]) Use up to 4 times a day E11.9 1 Kit 0 12/02/2021 Active BD Pen Needle Mini U/F 31G X 5 MM (Insulin Pen Needle)Indications: Type 1 diabetes mellitus with hemoglobin A1c goal of less than 8.0% ([facility]) USE THREE TIMES DAILY WITH HUMALOG KWIK [...] Oral Tablet (SEROquel)Indicatio ns:Bipolar 1 disorder, depressed ([facility]) Take 1 Tablet by mouth at bedtime. [...] hemoglobin A1c goal of less than 8.0% ([facility]) Inject 0-12 Units under the skin 4 times a day. 15 mL 5 03/28/2023 Active Lantus SoloStar 100 UNIT/ML Subcutaneous Solution Pen-injectorIndicat ions:Type 1 diabetes mellitus with hemoglobin A1c goal of less than 8.0% ([facility]) Inject 18 Units under the skin at [...] 90 Tablet 03/28/2023 Active OneTouch Delica Plus [id number] s:Type 1 diabetes mellitus with hemoglobin A1c [...] 30 Tablet 03/28/2023 Active OneTouch Delica Plus [id number] s:Type 1 diabetes mellitus with hemoglobin A1c [...] as of this encounter Miscellaneous Notes * Telephone Encounter - Arianna Jones, well cleaner - 03/29/2023 10:40 AM EST Pharmacy called asking if pt is to be on both the 100 mg and 25 mg of the sertraline, asking for a call back at [phone], please advise Thank you, Arianna Jones CPhT Child Care Coordinator II [facility] ([facility]) 03/29/2023,10:41 AM * Addendum Note - Av Wayne MD - 03/28/2023 5:17 PM ESTAddended by: AV WAYNE on: 03/28/2023 05:17 PM Modules accepted: Orders * Telephone Encounter - vA Wayne MD - 03/28/2023 5:17 PM EST [...] calling requesting refills for OneTouch Delica Plus [id number] . Upon chart review, medicationwas last prescribed [...] the patient. Thank you, Kelly Green CPht Child Care Coordinator II [facility] ([facility] ([facility]) 03/27/2023, 2:17 PM documented in this encounter Plan of Treatment Upcoming Encounters Date Type Department Care Team (Late st Contact Info) Description 04/16/2023 2:20 PM EST Office Visit [facility] [place] [phone] Av Wayne MD [address] [address] 06/22/2023 4:20 PM EDT Telemedicine Neurology, [place] [address] [place] [address] Angy Miller MD [address] [place] [address] Health Maintenance Due Date Last Done Comments DISCUSS TOBACCO CESSATION (REFER TO SMARTSET #2496) 1987 Hepatitis B (1 of 3 - [...] the patient have Health Care Power of Travel Assistant? No Full Code 12/25/2021 1:35 PM 01/06/2022 6:52 PM This order reflects the patients wishes and were consensually agreed upon. Question Answer Comments Discussion of Advance Directives occurred with: Family Does the patient have a Living Will? No Does the patient have Health Care Power of Travel Assistant? No Care Teams Sales Support Technician Relationship Specialty Start Date End Date Av Wayne MD [address] [address] PCP - General Family Medicine 06/27/22 documented as of this encounter
--- OUTSIDE RECORDS SUMMARY | 2023-04-19 19:46 | External Medical Summary | Summary of Care ---
Author Name Unknown Organization [facility] Address [address] [place] [address] Phone [phone] Care Team Providers Care Bellmaker Name Role Phone Av Wayne MD Primary Care Provider [phone] Reason for Referral * Medication Prior Authorization - Closed Specialty Diagnoses / Procedures Referred By Contac t Referred To Contact Diagnoses Type 1 diabetes mellitus with hemoglobin A1c goal of less than 8.0% ([facility]) Av Wayne MD [address] [place] [address] Referral ID Status Reason Start Date Expiration Date Visits Re quested Visits Authorized [id number] Closed 999 999 Reason for Visit * Reason Onset Date Comments Medication Question 03/27/202303/28 Encounter Details Date Type Department Care Team (Late st Contact Info) Description 03/27/2023 Telephone [facility] [address] [place] [address] Av Wayne MD [address] [place] [address] Medication Question (03/28) Allergies No known active allergiesdocumented as of this encounter (statuses as of 03/29/2023) Medications Medication Sig Dispensed Refills Start Date End Date Status Methadone HCl 10 MG/ML Oral Concentrate Take 10.7 mL by mouth in the morning. 0 11/01/2021 Active OneTouch Verio w/Device KitIndications:Type 1 diabetes mellitus with hemoglobin A1c goal of less than 8.0% ([facility]) Use up to 4 times a day E11.9 1 Kit 0 12/02/2021 Active BD Pen Needle Mini U/F 31G X 5 MM (Insulin Pen Needle)Indications: Type 1 diabetes mellitus with hemoglobin A1c goal of less than 8.0% ([facility]) USE THREE TIMES DAILY WITH HUMALOG [...] Oral Tablet (SEROquel)Indicatio ns:Bipolar 1 disorder, depressed ([facility]) Take 1 Tablet by mouth at [...] hemoglobin A1c goal of less than 8.0% ([facility]) Inject 0-12 Units under the skin 4 times a day. 15 mL 5 03/28/2023 Active Lantus SoloStar 100 UNIT/ML Subcutaneous Solution Pen-injectorIndicat ions:Type 1 diabetes mellitus with hemoglobin A1c goal of less than 8.0% ([facility]) Inject 18 Units under the skin [...] 90 Tablet 03/28/2023 Active OneTouch Delica Plus [id number] s:Type 1 diabetes mellitus with hemoglobin A1c [...] 30 Tablet 03/28/2023 Active OneTouch Delica Plus [id number] s:Type 1 diabetes mellitus with hemoglobin A1c [...] Notes * Telephone Encounter - Arianna Jones, multifocal button generator - 03/29/2023 10:40 AM EST Pharmacy called asking if pt is to be on both the 100 mg and 25 mg of the sertraline, asking for a call back at [phone], please advise Thank you, Arianna Jones CPhT Senior Design Engineer II [facility] ([facility]) 03/29/2023,10:41 AM * Addendum Note - Av Wayne MD - 03/28/2023 5:17 PM ESTAddended by: AV WAYNE on: 03/28/2023 05:17 PM Modules accepted: Orders * Telephone Encounter - Av Wayne MD - 03/28/2023 5:17 PM EST [...] calling requesting refills for OneTouch Delica Plus [id number] . Upon chart review, medicationwas last prescribed [...] the patient. Thank you, Kelly Green CPht Senior Design Engineer II [facility] ([facility]) 03/27/2023, 2:17 PM documented in this encounter Plan of Treatment Upcoming Encounters Date Type Department Care Team (Late st Contact Info) Description 04/16/2023 2:20 PM EST Office Visit [facility] [place] [phone] Av Wayne MD [address] [address] 06/22/2023 4:20 PM EDT Telemedicine Neurology, [place] [address] [place] [address] Angy Miller MD [address] [place] [address] Health Maintenance Due Date Last Done Comments DISCUSS TOBACCO CESSATION (REFER TO SMARTSET #2122) 1987 Hepatitis B (1 of 3 - [...] the patient have Health Care Power of Musical String Maker? No Full Code 12/25/2021 1:35 PM 01/06/2022 6:52 PM This order reflects the patients wishes and were consensually agreed upon. Question Answer Comments Discussion of Advance Directives occurred with: Family Does the patient have a Living Will? No Does the patient have Health Care Power of Musical String Maker? No Care Teams Bellmaker Relationship Specialty Start Date End Date Av Wayne MD [address] [address] PCP - General Family Medicine 06/27/22 documented as of this encounter
--- OUTSIDE RECORDS SUMMARY | 2023-04-19 19:46 | External Medical Summary | Summary of Care ---
Author Name Unknown Organization [facility] Address [address] [place] [address] Phone [phone] Care Team Providers Care Visual Merchandising Coordinator Name Role Phone Av Graves MD Primary Care Provider [phone] [phone] Reason for Visit * Reason Onset Date Comments Order Request 04/09/202304/10 Glucometer and supplies Encounter Details Date Type Department Care Team (Late st Contact Info) Description [facility] [place] [address] Av Graves MD [address] [place] [address] Order Request (04/10 Glucometer and supplies) Allergies No known active allergiesdocumented as of this encounter (statuses as of 04/12/2023) Medications Medication Sig Dispensed Refills Start Date End Date Status Methadone HCl 10 MG/ML Oral Concentrate Take 10.7 mL by mouth in the morning. 0 11/01/2021 Active BD Pen Needle Mini U/F 31G [...] Oral Tablet (SEROquel)Indicatio ns:Bipolar 1 disorder, depressed ([facility]) Take 1 Tablet by mouth at bedtime. [...] before bedtime. 90 Capsule 5 03/27/2023 Active Mirtazapine 15 MG Oral Tablet (Remeron) Take 1 Tablet by mouth at bedtime. 30 Tablet 1 03/28/2023 Active Insulin Aspart 100 UNIT/ML Subcutaneous Solution Pen-injector (novoLOG)Indication s:Type 1 diabetes mellitus with hemoglobin A1c goal of less than 8.0% ([facility]) Inject 0-12 Units under the skin 4 times a day. 15 mL 03/28/2023 Active Lantus SoloStar 100 UNIT/ML Subcutaneous Solution Pen-injectorIndicat ions:Type 1 diabetes mellitus with hemoglobin A1c goal of less than 8.0% ([facility]) Inject 18 Units under the skin at [...] 90 Tablet 03/28/2023 Active OneTouch Delica Plus [id number] s:Type 1 diabetes mellitus with hemoglobin A1c goal of less than 8.0% ([facility]) test blood sugars FOUR TIMES DAILY E10.9 100 Each 03/28/2023 Active OneTouch Verio In Vitro Strip (Glucose Blood)Indications:T ype 1 diabetes mellitus with hemoglobin A1c goal of less than 8.0% ([facility]) Use up to 4 times a day E10.9 100 Strip 5 03/28/2023 Active Sertraline HCl 100 MG Oral Tablet (Zoloft)Indications :Depression, major, recurrent, moderate ([facility]) Take 1 Tablet by mouth in the morning. 30 Tablet 5 03/28/2023 Active Sertraline HCl 25 MG Oral Tablet (Zoloft)Indications :Depression, major, recurrent, moderate ([facility]) Take 1 Tablet by mouth in the morning. With 100mg tablet for 125mg total dose. 30 Tablet 5 03/29/2023 Active OneTouch Verio w/Device KitIndications:Type 1 diabetes mellitus with hemoglobin A1c goal of less than 8.0% ([facility]) Use up to 4 times a day E10.9 1 Kit 0 04/12/2023 Active OneTouch Verio w/Device KitIndications:Type 1 diabetes mellitus with hemoglobin A1c goal of less than 8.0% ([facility]) Use up to 4 times a day E11.9 1 Kit 0 12/02/2021 Discontinu ed(Medicat ion/Dose Changed) documented as of this encounter (statuses as of 04/12/2023) Active Problems Problem Noted Date Diagnosed Date [...] Scalp laceration 07/17/2015 Depression, major, recurrent, moderate Mixed dyslipidemia 12/31/2012 Type 1 diabetes mellitus wit h hemoglobin A1c goal of less than 8.0% 12/17/2012 Overview: ICD-10 update of inactive term Neuropathy 12/17/2012 Hypothyroidism 08/30/2012 documented as of this encounter (statuses as of 04/12/2023) Resolved Problems Problem Noted Date Diagnosed Date [...] as of this encounter (statuses as of 04/12/2023) Immunizations Name Administration Dates Next Due Seasonal [...] encounter Miscellaneous Notes * Telephone Encounter - Ria Jc LPN - 04/10/2023 8:06 AM EST Glucometer pended, please review. Strips and lancets sent on 03/28. * Telephone Encounter - Adamaris Larkin OSA - 04/09/2023 12:50 PM EST An order was requested for this patient. Name of Requesting Provider: patient Order Requested: glucose meter and supplies Diagnosis/Reason for Request: uncontrolled sugar levels What location AND department does the patient wish to have their order completed at? Fax Number, if applicable: Call Back Number: [phone] If the caller is not a current patient, please advise the patient to call their current PCP to havethe order's prior to being seen in our office. The patient was informed that our providers would not order anything (medication, labs, etc.) prior to being seen. documented in this encounter Plan of Treatment Upcoming Encounters Date Type Department Care Team (Late st Contact Info) Description 04/16/2023 2:20 PM EST Office Visit [facility] [address] [place] [phone] Av Graves MD [address] [place] [address] 06/22/2023 4:20 PM EDT [facility] [address] [place] [address] Angy Miller MD [address] [place] [address] Health Maintenance Due Date Last Done Comments DISCUSS TOBACCO CESSATION (REFER TO SMARTSET #9000) 1987 Hepatitis B (1 of 3 - [...] as of this encounter Visit Diagnoses Diagnosis Type 1 diabetes mellitus with hemoglobin A1c goal of less than 8.0% ([facility])- Primary documented in this encounter Advance Directives Latest [...] the patient have Health Care Power of Automotive Software Engineer? No Full Code 12/25/2021 1:35 PM 01/06/2022 6:52 PM This order reflects the patients wishes and were consensually agreed upon. Question Answer Comments Discussion of Advance Directives occurred with: Family Does the patient have a Living Will? No Does the patient have Health Care Power of Automotive Software Engineer? No Care Teams Visual Merchandising Coordinator Relationship Specialty Start Date End Date Av Graves MD [address] [address] PCP - General Family Medicine 06/27/22 documented as of this encounter
--- OUTSIDE RECORDS SUMMARY | 2023-04-19 19:46 | External Medical Summary | Summary of Care ---
Author Name Unknown Organization [facility] Address [address] [place] [address] Phone [phone] Care Team Providers Care Circulation Supervisor Name Role Phone Av Graves MD Primary Care Provider [phone] [phone] Reason for Visit * Reason Onset Date Comments Medication Question 03/27/202303/28 Encounter Details Date Type Department Care Team (Late st Contact Info) Description 03/27[facility]2023 [facility] [place] [address] Av Graves MD [address] [place] [address] Medication Question (03/28) Allergies No known active allergiesdocumented as of this encounter (statuses as of 03/28/2023) Medications Medication Sig Dispensed Refills Start Date End Date Status Methadone HCl 10 MG/ML Oral Concentrate Take 10.7 mL by mouth in the morning. 0 11/01/2021 Active OneTouch Verio w/Device KitIndications:Ty pe 1 diabetes mellitus with hemoglobin A1c goal of less than 8.0% ([facility]) Use up to 4 times a day E11.9 1 Kit 0 12/02/2021 Active BD Pen Needle Mini U/F 31G X 5 MM (Insulin Pen Needle)Indication s:Type 1 diabetes mellitus with hemoglobin A1c goal of less than 8.0% ([facility]) USE THREE TIMES DAILY WITH HUMALOG KWIK PEN E10.9 100 Each 0 12/13/2022 Active OneTouch Delica Plus [id number] ons:Type 1 diabetes mellitus with hemoglobin A1c goal of less than 8.0% ([facility]) test blood sugars FOUR TIMES DAILY E10.9 100 Each 0 12/13/2022 Active OneTouch Verio In Vitro Strip (Glucose Blood)Indications :Type 1 diabetes mellitus with hemoglobin A1c goal of less than 8.0% ([facility]) Use up to 4 times a day E10.9 100 Strip 0 12/13/2022 Active Levothyroxine Sodium 88 MCG Oral Tablet (Levoxyl) Take 1 Tablet by mouth daily first thing in the morning. 14 Tablet 0 01/18/2023 Active Midodrine HCl 10 MG Oral Tablet (Proamatine) Take 1 Tablet by mouth in the morning and 1 Tablet at noon and 1 Tablet before bedtime. 42 Tablet 0 01/18/2023 Active Nicotine 14 MG/24HR Transdermal Patch 24 Hour (Nicoderm CQ) Place 1 Patch over 24 hours topically on the skin in the morning. 0 01/19/2023 Active Additional Information Patient not taking.Reported on 02/05/2023 Nutrisource Fiber Oral Packet Take 1 Packet by mouth in the morning. 14 Packet 0 01/19/2023 Active Additional Information Patient not taking.Reported on 02/05/2023 Sertraline HCl 100 MG Oral Tablet (Zoloft) Take 1 Tablet by mouth in the morning. Do not start before January 19, 2023. 14 Tablet 0 01/19/2023 Active Sertraline HCl 25 MG Oral Tablet (Zoloft) Take 1 Tablet by mouth in the morning. 14 Tablet 0 01/18/2023 Active Lantus SoloStar 100 UNIT/ML Subcutaneous Solution Pen-injector Inject 18 Units under the skin at bedtime. 15 mL 0 01/18/2023 Active Additional Information Patient taking differently:18 Units Subcutaneous HS,02/05/23 Pt states he is on a sliding scale, Reported on 02/05/2023 Insulin Aspart 100 UNIT/ML Subcutaneous Solution Pen-injector (novoLOG) Inject 1-4 units four times daily (morning, noon, evening and bedtime) per sliding scale 15 mL 0 01/18/2023 Active QUEtiapine Fumarate 200 MG Oral Tablet (SEROquel)Indicat ions:Bipolar 1 disorder, depressed ([facility]) Take 1 Tablet by mouth at [...] mouth at bedtime. 30 Tablet 1 02/06/2023 Discontinue d(Refill) documented as of this encounter (statuses as [...] encounter Miscellaneous Notes * Addendum Note - Marlene Blanco LPN - 03/28/2023 5:08 PM ESTAddended by: MARLENE BLANCO on: 03/28/2023 05:08 PM Modules accepted: Orders * Telephone Encounter - Marlene Blanco LPN - 03/28/2023 5:07 PM EST [...] calling requesting refills for OneTouch Delica Plus [id number] . Upon chart review, medicationwas last prescribed [...] therapy for the patient. Thank you, Kelly Green, [facility] Rotary Operator II [facility] ([facility] (formerly [facility]) 03/27/2023, 2:17 PM documented in this encounter Plan of Treatment Upcoming Encounters Date Type Department Care Team (Late st Contact Info) Description 04/16/2023 2:20 PM EST Office Visit [facility] [address] [place] [phone] Av Graves MD 21 [facility] [place] [address] 06/22/2023 4:20 PM EDT Telemedicine Neurology, [place] [address] [place] [address] Angy Miller MD [address] [place] [address] Health Maintenance Due Date Last Done Comments DISCUSS TOBACCO CESSATION (REFER TO SMARTSET #4225) 1987 Hepatitis B (1 of 3 - [...] hemoglobin A1c goal of less than 8.0% ([facility]) documented in this encounter Advance Directives Latest [...] the patient have Health Care Power of Intelligence Clerk? No Full Code 12/25/2021 1:35 PM 01/06/2022 6:52 PM This order reflects the patients wishes and were consensually agreed upon. Question Answer Comments Discussion of Advance Directives occurred with: Family Does the patient have a Living Will? No Does the patient have Health Care Power of Intelligence Clerk? No Care Teams Circulation Supervisor Relationship Specialty Start Date End Date Av Graves MD [address] [address] PCP - General Family Medicine 06/27/22 documented as of this encounter
--- OUTSIDE RECORDS SUMMARY | 2023-04-19 19:46 | External Medical Summary | Summary of Care ---
Author Name Unknown Organization [facility] Address [address] [place] [address] Phone [phone] Care Team Providers Care Accounts Payable Associate Name Role Phone Jerzy Wayne MD Primary Care Provider [phone] Reason for Referral * Medication Prior Authorization - Closed Specialty Diagnoses / Procedures Referred By Contac t Referred To Contact Diagnoses Type 1 diabetes mellitus with hemoglobin A1c goal of less than 8.0% ([facility]) Jerzy Wayne MD [address] [place] [address] Referral ID Status Reason Start Date Expiration Date Visits Re quested Visits Authorized [id number] Closed 999 999 Reason for Visit * Reason Onset Date Comments Medication Question 03/27/2023 Encounter Details Date Type Department Care Team (Late st Contact Info) Description 03/27[facility]2023 [facility] [address] [place] [address] Jerzy Wayne MD [address] [place] [address] Medication Question () Allergies No known active allergiesdocumented as of this encounter (statuses as of 03/30/2023) Medications Medication Sig Dispensed Refills Start Date End Date Status Methadone HCl 10 MG/ML Oral Concentrate Take 10.7 mL by mouth in the morning. 0 11/01/2021 Active Plum DistrictTouch Verio w/Device KitIndications:Type 1 diabetes mellitus with hemoglobin A1c goal of less than 8.0% ([facility]) Use up to 4 times a day E11.9 1 Kit 0 12/02/2021 Active BD Pen Needle Mini U/F 31G X 5 MM (Insulin Pen Needle)Indications: Type 1 diabetes mellitus with hemoglobin A1c goal of less than 8.0% ([facility]) USE THREE TIMES DAILY WITH HUMALOG [...] Oral Tablet (SEROquel)Indicatio ns:Bipolar 1 disorder, depressed ([facility]) Take 1 Tablet by mouth at [...] goal of less than 8.0% ([facility]) Inject 0-12 Units under the skin 4 times a day. 15 mL 5 03/28/2023 Active Lantus SoloStar 100 UNIT/ML Subcutaneous Solution Pen-injectorIndicat ions:Type 1 diabetes mellitus with hemoglobin A1c goal of less than 8.0% ([facility]) Inject 18 Units under the skin [...] 90 Tablet 03/28/2023 Active OneTouch Delica Plus [id number] s:Type 1 diabetes mellitus with hemoglobin A1c [...] 30 Tablet 03/29/2023 Active OneTouch Delica Plus [id number] s:Type 1 diabetes mellitus with hemoglobin A1c [...] as of this encounter (statuses as of 03/30/2023) Active Problems Problem Noted Date Diagnosed Date [...] as of this encounter (statuses as of 03/30/2023) Resolved Problems Problem Noted Date Diagnosed Date [...] as of this encounter (statuses as of 03/30/2023) Immunizations Name Administration Dates Next Due Seasonal [...] encounter Miscellaneous Notes * Telephone Encounter - Marlene Jc LPN - 03/30/2023 10:34 AM EST Below message relayed to [place] [facility]. * Addendum Note - Jerzy Wayne MD - 03/29/2023 8:44 PM ESTAddended by: JERZY WAYNE on: 03/29/2023 08:44 PM Modules accepted: Orders * Telephone Encounter - Jerzy Wayne MD - 03/29/2023 8:43 PM EST Yes, his dose is 125mg. New rx for 25mg dose sent to say to take with 100mg tablet. Thanks! Jerzy Wayne MD, [facility] [place] [place] * Telephone Encounter - Arianna Jones mail handler sorter - 03/29/2023 10:40 AM EST Pharmacy called asking if pt is to be on both the 100 mg and 25 mg of the sertraline, asking for a call back at [phone], please advise Thank you, Arianna Jones,[facility] Audit Analyst II [facility] ([facility] [...] calling requesting refills for OneTouch Delica Plus [id number] . Upon chart review, medicationwas last prescribed [...] the patient. Thank you, Kelly Green CPht Audit Analyst II [facility] ([facility]) 03/27/2023, 2:17 PM documented in this encounter Plan of Treatment Upcoming Encounters Date Type Department Care Team (Late st Contact Info) Description 04/16/2023 2:20 PM EST Office Visit [facility] [address] [place] [phone] Jerzy Wayne MD [address] [place] [address] 06/22/2023 4:20 PM EDT Telemedicine [facility] [address] [place] [address] Angy Miller MD [address], [place] [id number] Health Maintenance Due Date Last Done Comments DISCUSS TOBACCO CESSATION (REFER TO SMARTSET #[id number]) 1985 Hepatitis B (1 of 3 - [...] the patient have Health Care Power of Outside Industrial Sales Representative? No Full Code 12/25/2021 1:35 PM 01/06/2022 6:52 PM This order reflects the patients wishes and were consensually agreed upon. Question Answer Comments Discussion of Advance Directives occurred with: Family Does the patient have a Living Will? No Does the patient have Health Care Power of Outside Industrial Sales Representative? No Care Teams Accounts Payable Associate Relationship Specialty Start Date End Date Jerzy Wayne MD [address] [address] PCP - General Family Medicine 06/27/22 documented as of this encounter
--- OUTSIDE RECORDS SUMMARY | 2023-04-19 19:47 | External Medical Summary | Summary of Care ---
Author Name Unknown Organization [facility] Address [address] [place] [address] Phone [phone] Care Team Providers Care Network Communications Engineer Name Role Phone Av Graves MD Primary Care Provider [phone] Reason for Visit * Reason Onset Date Comments Medication Refill 03/06/2023 Refill not nacho ropriate. Encounter Details Date Type Department Care Team (Late st Contact Info) Description 03/06[facility] [place] [address] Av Graves MD [address] [place] [address] Medication Refill (Refill not appropriate. ) Allergies No known active allergiesdocumented as of this encounter (statuses as of 03/06/2023) Medications Medication Sig Dispensed Refills Start Date [...] Each 0 12/13/2022 Active OneTouch Delica Plus [id number] s:Type 1 diabetes mellitus with hemoglobin A1c goal of less than 8.0% ([facility]) test blood sugars FOUR TIMES DAILY E10.9 100 Each 0 12/13/2022 Active OneTouch Verio In Vitro Strip (Glucose Blood)Indications:T ype 1 diabetes mellitus with hemoglobin A1c goal of less than 8.0% ([facility]) Use up to 4 times a [...] Active QUEtiapine Fumarate 200 MG Oral Tablet (SEROquel)Indicatio ns:Bipolar 1 disorder, depressed (HCC) Take 1 Tablet by mouth at bedtime. 14 Tablet 0 02/05/2023 Active ProAir HFA 108 (90 Base) MCG/ACT Inhalation Aerosol Solution Inhale 2 Puffs by mouth every 4 hours as needed for Wheezing. 18 g 1 02/05/2023 Active Mirtazapine 15 MG Oral Tablet (Remeron) Take 1 Tablet by mouth at bedtime. 30 Tablet 1 02/06/2023 Active Gabapentin 300 MG Oral Capsule (Neurontin) Take 1 Capsule by mouth in the morning and 1 Capsule at noon and 1 Capsule before bedtime. 90 Capsule 1 02/06/2023 Active documented as of this encounter (statuses as of 03/06/2023) Active Problems Problem Noted Date Diagnosed Date [...] as of this encounter (statuses as of 03/06/2023) Resolved Problems Problem Noted Date Diagnosed Date [...] as of this encounter (statuses as of 03/06/2023) Immunizations Name Administration Dates Next Due Seasonal [...] encounter Miscellaneous Notes * Telephone Encounter - Rubina Huertas LPN - 03/06/2023 12:35 PM EST Rupert, pharmacist calling from [place] pharmacy. Patient requested a refill for Seroquel 200mg. Informed that the script was to be a 14 day supply until patient saw Psych the week of 02/05 per ERF/U office visit notes with [place] Mccormick on 02/05. Rupert will inform patient of this. documented in this encounter Plan of Treatment Upcoming Encounters Date Type Department Care Team (Late st Contact Info) Description 04/16/2023 2:20 PM EST Office Visit [facility] [address] [address] Av Graves MD [address] [place] [address] 06/22/2023 4:20 PM EDT Telemedicine Neurology, [place] [address] [place] [address] Angy Miller MD [address] [place] [address] Health Maintenance Due Date Last Done Comments DISCUSS TOBACCO CESSATION (REFER TO SMARTSET #8947) 1987 Hepatitis B (1 of 3 - [...] Not on filedocumented as of this encounter Advance Directives Latest Code Status [...] the patient have Health Care Power of Cosmetics Machine Operator? No Full Code 12/25/2021 1:35 PM 01/06/2022 6:52 PM This order reflects the patients wishes and were consensually agreed upon. Question Answer Comments Discussion of Advance Directives occurred with: Family Does the patient have a Living Will? No Does the patient have Health Care Power of Cosmetics Machine Operator? No Care Teams Network Communications Engineer Relationship Specialty Start Date End Date Av Graves MD [address] [address] PCP - General Family Medicine 06/27/22 documented as of this encounter
--- OUTSIDE RECORDS SUMMARY | 2023-04-19 19:47 | External Medical Summary | Summary of Care ---
Author Name Unknown Organization [facility] Address [address] [place] [address] Phone [phone] Care Team Providers Care Kiln Stacker Name Role Phone Jerzy Wayne MD Primary Care Provider [phone] Reason for Visit * Reason Onset Date Comments Medication Refill 03/27/2023 Encounter Details Date Type Department Care Team (Late st Contact Info) Description 03/27/2023 Refill [facility] [address] [place] [address] Jerzy Wayne MD [address] [place] [address] Allergies No known active allergiesdocumented as of this encounter (statuses as of 03/28/2023) Medications Medication Sig Dispensed Refills Start Date End Date Status Methadone HCl 10 MG/ML Oral Concentrate Take 10.7 mL by mouth in the morning. 0 11/01/2021 Active OneTouch Verio w/Device KitIndications:Ty pe 1 diabetes mellitus with hemoglobin A1c goal of less than 8.0% ([facility]) Use up to 4 times a day E11.9 1 Kit 0 12/02/2021 Active BD Pen Needle Mini U/F 31G X 5 MM (Insulin Pen Needle)Indication s:Type 1 diabetes mellitus with hemoglobin A1c goal of less than 8.0% (HCC) USE THREE TIMES DAILY WITH HUMALOG KWIK PEN E10.9 100 Each 0 12/13/2022 Active OneTouch Delica Plus [id number] ons:Type 1 diabetes mellitus with hemoglobin A1c goal of less than 8.0% ([facility]) test blood sugars FOUR TIMES DAILY E10.9 100 Each 0 12/13/2022 Active OneTouch Verio In Vitro Strip (Glucose Blood)Indications :Type 1 diabetes mellitus with hemoglobin A1c goal of less than 8.0% ([facility]) Use up to 4 times a day [...] Oral Tablet (SEROquel)Indicat ions:Bipolar 1 disorder, depressed ([facility]) Take 1 Tablet by mouth at bedtime. [...] at bedtime. 30 Tablet 1 03/28/2023 Active Mirtazapine 15 MG Oral Tablet (Remeron) [...] the money to buy more. Never true 10/12/20 22 Within the past 12 months, t [...] encounter Miscellaneous Notes * Telephone Encounter - Jerzy Wayne MD - 03/28/2023 1:30 PM ESTSigned Prescriptions: Disp Refills Mirtazapine 15 MG Oral Tablet (Remeron) 30 Tab*1 Sig: Take 1 Tablet by mouth at bedtime. Authorizing Provider: JERZY WAYNE * Telephone Encounter - Itz Harrington [facility] - 03/28/2023 12:04 PM EST Pending Prescriptions: Disp Refills Mirtazapine 15 MG Oral Tablet (Remeron) 30 Tab*1 Sig: Take 1 Tablet by mouth at bedtime. * Telephone Encounter - Itz Harrington [facility] - 03/28/2023 12:03 PM EST Unable to authorize medication refills for pended medication(s) at this time. Part of the protocol criteria used for refill authorization was not satisfied. Patient needs ALT and LDL with normal limits. ALT Date Value Ref Range Status 01/31/2023 118 (H) 10 - 50 U/L Final 01/12/2023 53 (H) 10 - 50 U/L Final 12/28/2022 123 (H) 10 - 50 U/L Final LDLCALC Date Value Ref Range Status 12/29/2022 134 (H) <=129 mg/dL Final Comment: LDL Cholesterol Reference Ranges (mg/dL): <70 Target level for high risk ASCVD patient <100 Optimal for general population 100-129 Near optimal for general population 130-159 Borderline high 160-189 High >=190 Very high Please approve if appropriate. Thanks, Itz Harrington Pharm.D. Clinical Pharmacist [facility] ([facility]) [phone] 03/28/2023, 12:03 PM Did you pend patient's preferred pharmacy and medication before forwarding?yes Pharmacy: [facility] [place] [facility] [address] [place] [address] Pending Prescriptions: Disp Refills Mirtazapine 15 MG Oral Tablet (Remeron) 30 Tab*1 Sig: Take 1 Tablet by mouth at bedtime. Last Visit: 02/05/2023 (in office), 02/04/2021 (telemedicine) Next Visit: 04/16/2023 If no future appointments scheduled, and last appointment is greater than a year ago, please schedule patient for a follow-up appointment Last date the medication was ordered: 02/06/2023 Is this request for a controlled substance?No Urine Drug Screen: Results for orders placed or performed during the hospital encounter of 01/31/23 TOXICOLOGY, URINE SCREEN W/O CONFIRMATION Result Value Amphetamines Screen, U Negative Benzodiazepines Screen, U Negative Cannabinoids Screen, U Positive (A) Cocaine Metabolite Screen, U Negative Fentanyl Screen, U Negative Hydrocodone Screen, U Negative Methadone Metabolite Screen, U Positive (A) Morphine/Codeine Screen, U Negative Oxycodone Screen, U Negative Narrative Cutoff Concentrations: Drug Level Amphetamines 500 ng/mL Benzodiazepines 100 ng/mL Cannabinoids 50 ng/mL Cocaine Metabolite 150 ng/mL Fentanyl 1 ng/mL Hydrocodone / Hydromorphone 300 ng/mL Methadone Metabolite 100 ng/mL Morphine / Codeine 300 ng/mL Oxycodone / Oxymorphone 100 ng/mL Screening results are presumptive and can only be used for medical purposes. Confirmatory testing is available upon request. Results for orders placed or performed during the hospital encounter of 07/16/15 TOX SCREEN, URINE, W/ CONFIRMATION Result Value Amphetamine NEGATIVE Barbiturates NEGATIVE Benzodiazepines NEGATIVE Cannabinoids NEGATIVE Cocaine Metabolite NEGATIVE Morphine / Codeine NEGATIVE METHADONE METABOLITE POSITIVE (A) OXYCODONE NEGATIVE TOX COMMENT THE ABOVE SCREENING RESULTS ARE PRESUMPTIVE AND CAN ONLY BE USED FOR MEDICAL PURPOSES. POSITIVE RESULTS REFLEX TO CONFIRMATORY TESTING. Cutoff Concentration Results for orders placed or performed during the hospital encounter of 12/07/14 TOX URINE DRUG SCREEN ([facility] ONLY) Result Value AMPHETAMINES NEGATIVE BARBITURATES NEGATIVE BENZODIAZEPINES NEGATIVE CANNABINOIDS NEGATIVE COCAINE METABOLITE NEGATIVE MORPHINE/ CODEINE NEGATIVE METHADONE MEDICAL POSITIVE (A) OXYCODONE NEGATIVE LETITIA COMMENT THE ABOVE SCREENING RESULTS ARE PRESUMPTIVE AND CAN ONLY BE USED FOR MEDICAL PURPOSES. CONFIRMATORY TESTING IS AVAILABLE UPON REQUEST. CUTOFF CONCENTRATION Patient Phone Numbers Labs: Lab Results Component Value Date/Time CREAT 1.4 (H) 01/31/2023 07:47 AM CREAT 1.1 12/21/2019 01:49 PM POTASSIUM 4.5 01/31/2023 07:47 AM POTASSIUM 4.5 12/21/2019 01:49 PM TSH 60.20 (H) 01/04/2023 09:42 AM TSH 9.35 (H) 12/07/2014 07:41 PM LDLCALC 134 (H) 12/29/2022 12:05 PM LDLCALC 241 (H) 12/30/2012 11:27 AM LDLDIRECT 116 06/28/2022 05:57 PM LDLDIRECT NOT APPLICABLE 12/30/2012 11:27 AM ALT 118 (H) 01/31/2023 07:47 AM ALT 19 12/21/2019 01:49 PM HGBA1C 11.3 (H) 12/29/2022 05:17 AM HGBA1C 11.0 (H) 12/09/2014 06:53 AM * Telephone Encounter - Kelly Green CPhT - 03/27/2023 2:19 PM EST Did you pend patient's preferred pharmacy and medication before forwarding?yes [facility] [place] [address] Pending Prescriptions: Disp Refills Mirtazapine 15 MG Oral Tablet (Remeron) 30 Tab*1 Sig: Take 1 Tablet by mouth at bedtime. Last Visit: 02/05/2023 (in office), 02/04/2021 (telemedicine) Next Visit: 04/16/2023 If no future appointments scheduled, and last appointment is greater than a year ago, please schedule patient for a follow-up appointment Last date the medication was ordered: 02/06/23 Is this request for a controlled substance?No Urine Drug Screen: Results for orders placed or performed during the hospital encounter of 01/31/23 TOXICOLOGY, URINE SCREEN W/O CONFIRMATION Result Value Amphetamines Screen, U Negative Benzodiazepines Screen, U Negative Cannabinoids Screen, U Positive (A) Cocaine Metabolite Screen, U Negative Fentanyl Screen, U Negative Hydrocodone Screen, U Negative Methadone Metabolite Screen, U Positive (A) Morphine/Codeine Screen, U Negative Oxycodone Screen, U Negative Narrative Cutoff Concentrations: Drug Level Amphetamines 500 ng/mL Benzodiazepines 100 ng/mL Cannabinoids 50 ng/mL Cocaine Metabolite 150 ng/mL Fentanyl 1 ng/mL Hydrocodone / Hydromorphone 300 ng/mL Methadone Metabolite 100 ng/mL Morphine / Codeine 300 ng/mL Oxycodone / Oxymorphone 100 ng/mL Screening results are presumptive and can only be used for medical purposes. Confirmatory testing is available upon request. Results for orders placed or performed during the hospital encounter of 07/16/15 TOX SCREEN, URINE, W/ CONFIRMATION Result Value Amphetamine NEGATIVE Barbiturates NEGATIVE Benzodiazepines NEGATIVE Cannabinoids NEGATIVE Cocaine Metabolite NEGATIVE Morphine / Codeine NEGATIVE METHADONE METABOLITE POSITIVE (A) OXYCODONE NEGATIVE TOX COMMENT THE ABOVE SCREENING RESULTS ARE PRESUMPTIVE AND CAN ONLY BE USED FOR MEDICAL PURPOSES. POSITIVE RESULTS REFLEX TO CONFIRMATORY TESTING. Cutoff Concentration Results for orders placed or performed during the hospital encounter of 12/07/14 TOX URINE DRUG SCREEN ([facility] ONLY) Result Value AMPHETAMINES NEGATIVE BARBITURATES NEGATIVE BENZODIAZEPINES NEGATIVE CANNABINOIDS NEGATIVE COCAINE METABOLITE NEGATIVE MORPHINE/ CODEINE NEGATIVE METHADONE MEDICAL POSITIVE (A) OXYCODONE NEGATIVE LETITIA COMMENT THE ABOVE SCREENING RESULTS ARE PRESUMPTIVE AND CAN ONLY BE USED FOR MEDICAL PURPOSES. CONFIRMATORY TESTING IS AVAILABLE UPON REQUEST. CUTOFF CONCENTRATION Patient Phone Numbers Labs: Lab Results Component Value Date/Time CREAT 1.4 (H) 01/31/2023 07:47 AM CREAT 1.1 12/21/2019 01:49 PM POTASSIUM 4.5 01/31/2023 07:47 AM POTASSIUM 4.5 12/21/2019 01:49 PM TSH 60.20 (H) 01/04/2023 09:42 AM TSH 9.35 (H) 12/07/2014 07:41 PM LDLCALC 134 (H) 12/29/2022 12:05 PM LDLCALC 241 (H) 12/30/2012 11:27 AM LDLDIRECT 116 06/28/2022 05:57 PM LDLDIRECT NOT APPLICABLE 12/30/2012 11:27 AM ALT 118 (H) 01/31/2023 07:47 AM ALT 19 12/21/2019 01:49 PM HGBA1C 11.3 (H) 12/29/2022 05:17 AM HGBA1C 11.0 (H) 12/09/2014 06:53 AM documented in this encounter Plan of Treatment Upcoming Encounters Date Type Department Care Team (Late st Contact Info) Description 04/16/2023 2:20 PM EST Office Visit [facility] [address] [place] [id number] Jerzy Wayne MD 21 [facility] [place] [address] 06/22/2023 4:20 PM EDT Telemedicine Neurology, [place] [address] [place] [address] Angy Miller MD [address] [place] [address] Health Maintenance Due Date Last Done Comments DISCUSS TOBACCO CESSATION (REFER TO SMARTSET #1897) 1985 Hepatitis B (1 of 3 - [...] the patient have Health Care Power of Food And Nutrition Services Supervisor? No Full Code 12/25/2021 1:35 PM 01/06/2022 6:52 PM This order reflects the patients wishes and were consensually agreed upon. Question Answer Comments Discussion of Advance Directives occurred with: Family Does the patient have a Living Will? No Does the patient have Health Care Power of Food And Nutrition Services Supervisor? No Care Teams Kiln Stacker Relationship Specialty Start Date End Date Jerzy Wayne MD [address] [address] PCP - General Family Medicine 06/27/22 documented as of this encounter
--- OUTSIDE RECORDS SUMMARY | 2023-04-19 19:47 | External Medical Summary | Summary of Care ---
Author Name Unknown Organization [facility] Address [address] [place] [address] Phone [phone] Care Team Providers Care Lens Polisher Hand Name Role Phone Av Graves MD Primary Care Provider [phone] Reason for Visit * Reason Onset Date Comments Med Request 02/05/2023 Encounter Details Date Type Department Care Team (Late st Contact Info) Description 02/05/2023 Telephone [facility] [address] Av Graves MD 21 [place] [address] Med Request Allergies No known active allergiesdocumented as of this encounter (statuses as of 02/06/2023) Medications Medication Sig Dispensed Refills Start Date End Date Status Methadone HCl 10 MG/ML Oral Concentrate Take 10.7 mL by mouth in the morning. 0 11/01/2021 Active OneTouch Verio w/Device KitIndications:Ty pe 1 diabetes mellitus with hemoglobin A1c goal of less than 8.0% ([facility]) Use up to 4 times a day E11.9 1 Kit 0 12/02/2021 Active BD Pen Needle Mini U/F 31G X 5 MM (Insulin Pen Needle)Indication s:Type 1 diabetes mellitus with hemoglobin A1c goal of less than 8.0% ([facility]) USE THREE TIMES DAILY WITH HUMALOG KWIK PEN E10.9 100 Each 0 12/13/2022 Active OneTouch Delica Plus [id number] ons:Type 1 diabetes mellitus with hemoglobin A1c goal of less than 8.0% ([facility]) test blood sugars FOUR TIMES DAILY E10.9 100 Each 0 12/13/2022 Active OneTouch Verio In Vitro Strip (Glucose Blood)Indications :Type 1 diabetes mellitus with hemoglobin A1c goal of less than 8.0% ([facility]) Use up to 4 times [...] Oral Tablet (SEROquel)Indicat ions:Bipolar 1 disorder, depressed ([facility]) Take 1 Tablet by mouth [...] before bedtime. 90 Capsule 1 02/06/2023 Active Gabapentin 300 MG Oral Capsule (Neurontin) Take 1 Capsule by mouth in the morning and 1 Capsule at noon and 1 Capsule before bedtime. 42 Capsule 0 01/18/2023 3 Discontinue d(Refill) Mirtazapine 15 MG Oral Tablet (Remeron) Take 1 Tablet by mouth at bedtime. 14 Tablet 0 01/18/2023 3 Discontinue d(Refill) documented as of this encounter (statuses as of 02/06/2023) Active Problems Problem Noted Date Diagnosed Date [...] as of this encounter (statuses as of 02/06/2023) Resolved Problems Problem Noted Date Diagnosed Date [...] as of this encounter (statuses as of 02/06/2023) Immunizations Name Administration Dates Next Due SEASONAL INFLUENZA, PF, 6 M & Above, IM , (FLULAVAL or FLUZONE) 01/06/2022(Deferred: Patient Refused) Seasonal Influenza, Split, I [...] encounter Miscellaneous Notes * Addendum Note - Nikia De PA-C - 02/06/2023 6:26 AM ESTAddended by: NIKIA DE on: 02/06/2023 06:26 AM Modules accepted: Orders * Telephone Encounter - Nikia De PA-C - 02/06/2023 6:24 AM EST Nikia De PA-C covering for Dr. Graves. Agreeable to refilling mirtazapine and gabapentin. Please advise pt follow up as scheduled. * Telephone Encounter - Arianna Jones PHARM Tech - 02/05/2023 3:54 PM EST Pt's ec calling to check on status of rx. Thank you, Arianna Jones CPhT Dividing Machine Operator [facility] ([facility]) (formerly Telepharmacy) 02/05/2023,3:54 PM * Telephone Encounter - Billy Kern LPN - 02/05/2023 2:03 PM EST Please advise on below message. Thank you. * Telephone Encounter - Tanja Hernandez CPhT - 02/05/2023 1:48 PM EST Pt's calling to request a refill on Mirtazapine 15 MG Oral Tablet (Remeron) and Gabapentin 300MG Oral Capsule (Neurontin) . Medication was last prescribed by [facility] 7th Floor butpatient is asking if PCP can take over the medication. Please advise if this is appropriate and send to [facility] [place] [facility] [address] [place] [address] [place] if agreeable. Thank you, Ana Hernandez Injection Molding Supervisor I [facility] ([facility]) (Formerly Telepharmacy) 02/05/2023,1:48 PM documented in this encounter Plan of Treatment Upcoming Encounters Date Type Department Care Team (Late st Contact Info) Description 04/16/2023 2:20 PM EST [facility] [address] [address] Av Graves MD [address] [address] Health Maintenance Due Date Last Done Comments DISCUSS TOBACCO CESSATION (REFER TO SMARTSET #6232) 1987 Hepatitis B (1 of 3 - [...] Not on filedocumented as of this encounter Additional Health Concerns Infection Onset Date Last Indicated Resolved Time Enterovirus (resp)/Rhinovirus 01/31/2023 01/31/2023 documented as of this encounter Advance Directives Latest [...] the patient have Health Care Power of Calculating Machine Operator? No Full Code 12/25/2021 1:35 PM 01/06/2022 6:52 PM This order reflects the patients wishes and were consensually agreed upon. Question Answer Comments Discussion of Advance Directives occurred with: Family Does the patient have a Living Will? No Does the patient have Health Care Power of Calculating Machine Operator? No Care Teams Lens Polisher Hand Relationship Specialty Start Date End Date Av Graves MD [address] [address] PCP - General Family Medicine 06/27/22 documented as of this encounter
--- OUTSIDE RECORDS SUMMARY | 2023-04-19 19:47 | External Medical Summary | Summary of Care ---
Author Name Unknown Organization [facility] Address [address] [place] [address] Phone [phone] Care Team Providers Care Farm Implement Engine Mechanic Name Role Phone Av Graves MD Primary Care Provider [phone] Reason for Visit * Reason Onset Date Comments Med Request 02/05/202302/06 Encounter Details Date Type Department Care Team (Late st Contact Info) Description 02/05/2023 Telephone [facility] [address] Av Graves MD 21 [place] [address] Med Request (02/06) Allergies No known active allergiesdocumented as of [...] Each 0 12/13/2022 Active OneTouch Delica Plus [id number] ons:Type 1 diabetes mellitus with hemoglobin A1c goal of less than 8.0% ([facility]) test blood sugars FOUR TIMES DAILY E10.9 100 Each 0 12/13/2022 Active OneTouch Verio In Vitro Strip (Glucose Blood)Indications :Type 1 diabetes mellitus with hemoglobin A1c goal of less than 8.0% ([facility]) Use up to 4 times [...] Oral Tablet (SEROquel)Indicat ions:Bipolar 1 disorder, depressed ([facility]) Take 1 Tablet by mouth [...] encounter Miscellaneous Notes * Telephone Encounter - Felicia Baum CMA - 02/06/2023 8:43 AM EST Attempted to contact patient, line states that number is not accepting calls at this time. Unable to leave message * Addendum Note - Nikia De PA-C - 02/06/2023 6:26 AM ESTAddended by: NIKIA DE on: 02/06/2023 06:26 AM Modules accepted: Orders * Telephone Encounter - Nikia De PA-C - 02/06/2023 6:24 AM EST Nikia De PA-C covering for Dr. Graves. Agreeable to refilling mirtazapine and gabapentin. Please advise pt follow up as scheduled. * Telephone Encounter - Arianna Jones book salesman - 02/05/2023 3:54 PM EST Pt's ec calling to check on status of rx. Thank you, Arianna Jones CPhT Community Arts Officer [facility] ([facility]) (formerly Telepharmacy) [...] (Neurontin) . Medication was last prescribed by [address] [place] [address] 7th Floor butpatient is asking if PCP can take over the medication. Please advise if this is appropriate and send to [facility] [place] [facility] [place] if agreeable. Thank you, Ana Hernandez Grain Oilseed Or Pasture Farm Worker I [facility] ([facility]) (Formerly Telepharmacy) 02/05/2023,1:48 PM documented in this encounter Plan of Treatment Upcoming Encounters Date Type Department Care Team (Late st Contact Info) Description 04/16/2023 2:20 PM EST Office Visit [facility] [address] [address] Av Graves MD [address] [phone] Health Maintenance Due Date Last Done Comments DISCUSS TOBACCO CESSATION (REFER TO SMARTSET #9009) 1987 Hepatitis B (1 of 3 - [...] the patient have Health Care Power of Oil Filters Inspector? No Full Code 12/25/2021 1:35 PM 01/06/2022 6:52 PM This order reflects the patients wishes and were consensually agreed upon. Question Answer Comments Discussion of Advance Directives occurred with: Family Does the patient have a Living Will? No Does the patient have Health Care Power of Oil Filters Inspector? No Care Teams Farm Implement Engine Mechanic Relationship Specialty Start Date End Date Av Graves MD [address] [id number] PCP - General Family Medicine 06/27/22 documented as of this encounter
--- OUTSIDE RECORDS SUMMARY | 2023-04-19 19:47 | External Medical Summary | Summary of Care ---
Author Name Unknown Organization [facility] Address [address] [place] [address] Phone [phone] Care Team Providers Care Tumbling Instructor Name Role Phone Jerzy Wayne MD Primary Care Provider [phone] Reason for Visit * Reason Onset Date Comments Medication Refill 03/27/2023 Encounter Details Date Type Department Care Team (Late st Contact Info) Description 03/27/2023 Refill [facility] 21 [place] [address] Jerzy Wayne MD 21 [place] [address] Allergies No known active allergiesdocumented as of this encounter (statuses as of 03/27/2023) Medications Medication Sig Dispensed Refills Start Date End Date Status Methadone HCl 10 MG/ML Oral Concentrate Take 10.7 mL by mouth in the morning. 0 11/01/2021 Active OneTouch Verio w/Device KitIndications:Ty pe 1 diabetes mellitus with hemoglobin A1c goal of less than 8.0% ([facility]) Use up to 4 times a day E11.9 1 Kit 0 12/02/2021 Active BD Pen Needle Mini U/F 31G X 5 MM (Insulin Pen Needle)Indication s:Type 1 diabetes mellitus with hemoglobin A1c goal of less than 8.0% ([facility]) USE THREE TIMES DAILY WITH HUMALOG KWIK PEN E10.9 100 Each 0 12/13/2022 Active OneTouch Delica Plus [id number] ons:Type 1 diabetes mellitus with hemoglobin A1c goal of less than 8.0% ([facility]) test blood sugars FOUR TIMES DAILY E10.9 100 Each 0 12/13/2022 Active OneTouch Verio In Vitro Strip (Glucose Blood)Indications :Type 1 diabetes mellitus with hemoglobin A1c goal of less than 8.0% ([facility]) Use up to 4 times a day [...] Oral Tablet (SEROquel)Indicat ions:Bipolar 1 disorder, depressed ([facility]) Take 1 Tablet by mouth at bedtime. [...] before bedtime. 90 Capsule 5 03/27/2023 Active Gabapentin 300 MG Oral Capsule (Neurontin) Take 1 Capsule by mouth in the morning and 1 Capsule at noon and 1 Capsule before bedtime. 90 Capsule 1 02/06/2023 Discontinue d(Refill) documented as of this encounter (statuses as of 03/27/2023) Active Problems Problem Noted Date Diagnosed Date [...] as of this encounter (statuses as of 03/27/2023) Resolved Problems Problem Noted Date Diagnosed Date [...] as of this encounter (statuses as of 03/27/2023) Immunizations Name Administration Dates Next Due Seasonal [...] Telephone Encounter - Jerzy Wayne MD - 03/27/2023 2:47 PM ESTSigned Prescriptions: Disp Refills Gabapentin 300 MG Oral Capsule (Neurontin) 90 Cap*5 Sig: Take 1 Capsule by mouth in the morning and 1 Capsule at noon and 1 Capsule before bedtime. Authorizing Provider: JERZY WAYNE * Telephone Encounter - Kelly Green desulphurizer operator - 03/27/2023 2:18 PM EST Did you pend patient's preferred pharmacy and medication before forwarding?yes Pharmacy: [facility] [place] [address] [place] [address] Pending Prescriptions: Disp Refills Gabapentin 300 MG Oral Capsule (Neurontin)90 Cap*1 Sig: Take 1 Capsule by mouth in the morning and 1 Capsule at noon and 1 Capsule before bedtime. Last Visit: 02/05/2023 (in office), 02/04/2021 [...] Description 04/16/2023 2:20 PM EST Office Visit [facility] [place] [address] Jerzy Wayne MD [address] [phone] 06/22/2023 4:20 PM EDT Telemedicine [facility] [address] [place] [address] Angy Miller MD [address] [place] [address] Health Maintenance Due Date Last Done Comments DISCUSS TOBACCO CESSATION (REFER TO SMARTSET #[id number]) 1987 Hepatitis B (1 of 3 - [...] the patient have Health Care Power of Program Advocate? No Full Code 12/25/2021 1:35 PM 01/06/2022 6:52 PM This order reflects the patients wishes and were consensually agreed upon. Question Answer Comments Discussion of Advance Directives occurred with: Family Does the patient have a Living Will? No Does the patient have Health Care Power of Program Advocate? No Care Teams Tumbling Instructor Relationship Specialty Start Date End Date Jerzy Wayne MD [address] [address] PCP - General Family Medicine 06/27/22 documented as of this encounter
--- OUTSIDE RECORDS SUMMARY | 2023-04-19 19:47 | External Medical Summary | Summary of Care ---
Author Name Unknown Organization [facility] Address [address] [place] [address] Phone [phone] Care Team Providers Care Flight Engineer Name Role Phone Av Graves MD Primary Care Provider [phone] Reason for Visit * Reason Onset Date Comments Medication Question 03/27/2023 Encounter Details Date Type Department Care Team (Late st Contact Info) Description [facility] [address] [facility] [place] [place] [address] Av Graves MD 21 [place] [address] Medication Question Allergies No known active allergiesdocumented as of [...] Each 0 12/13/2022 Active OneTouch Delica Plus [id number] s:Type 1 diabetes mellitus with hemoglobin A1c goal of less than 8.0% ([facility]) test blood sugars FOUR TIMES DAILY E10.9 100 Each 0 12/13/2022 Active OneTouch Verio In Vitro Strip (Glucose Blood)Indications:T ype 1 diabetes mellitus with hemoglobin A1c goal of less than 8.0% ([facility]) Use up to 4 times a day [...] Oral Tablet (SEROquel)Indicatio ns:Bipolar 1 disorder, depressed ([facility]) Take 1 Tablet by mouth at bedtime. [...] before bedtime. 90 Capsule 5 03/27/2023 Active documented as of this encounter (statuses [...] encounter Miscellaneous Notes * Telephone Encounter - Kelly Green, de alcoholizer - 03/27/2023 2:14 PM EST Patient ec [...] calling requesting refills for OneTouch Delica Plus [id number] . Upon chart review, medicationwas last prescribed [...] the patient. Thank you, Kelly Green CPht Kitchen Stewardess II [facility] ([facility]) (formerly Telepharmacy) 03/27/2023, 2:17 PM documented in this encounter Plan of Treatment Upcoming Encounters Date Type Department Care Team (Late st Contact Info) Description 04/16/2023 2:20 PM EST Office Visit [facility] [address] [address] [phone] Av Graves MD [address] [place] [address] [address] 06/22/2023 4:20 PM EDT [facility] [address] [facility] [place] [address] Angy Miller MD [address] [place] [address] Health Maintenance Due Date Last Done Comments DISCUSS TOBACCO CESSATION (REFER TO SMARTSET #7799) 1987 Hepatitis B (1 of 3 - [...] the patient have Health Care Power of Assistant Unit Forester? No Full Code 12/25/2021 1:35 PM 01/06/2022 6:52 PM This order reflects the patients wishes and were consensually agreed upon. Question Answer Comments Discussion of Advance Directives occurred with: Family Does the patient have a Living Will? No Does the patient have Health Care Power of Assistant Unit Forester? No Care Teams Flight Engineer Relationship Specialty Start Date End Date Av Graves MD [address] [address] PCP - General Family Medicine 06/27/22 documented as of this encounter
--- OUTSIDE RECORDS SUMMARY | 2023-04-19 19:47 | External Medical Summary | Summary of Care ---
Author Name Unknown Organization [facility] Address [address] [place] [address] Phone [phone] Care Team Providers Care Landscape Crew Member Name Role Phone Av Graves MD Primary Care Provider [phone] Reason for Visit * Reason Onset Date Comments Med Request 02/05/202302/06 Encounter Details Date Type Department Care Team (Late st Contact Info) Description 02/05/[address] [facility] [place] [address] Av Graves MD 21 [place] [address] Med Request (02/06) Allergies No [...] Each 0 12/13/2022 Active OneTouch Delica Plus [id number] ons:Type 1 diabetes mellitus with hemoglobin A1c goal of less than 8.0% ([facility]) test blood sugars FOUR TIMES DAILY E10.9 100 Each 0 12/13/2022 Active OneTouch Verio In Vitro Strip (Glucose Blood)Indications :Type 1 diabetes mellitus with hemoglobin A1c goal of less than 8.0% ([facility]) Use up to 4 times a [...] (SEROquel)Indicat ions:Bipolar 1 disorder, depressed ([facility]) Take 1 Tablet by mouth at [...] Notes * Telephone Encounter - Arianna Jones, information security manager - 02/06/2023 10:17 AM EST Pt calling to request gabapentin . Informed pt that RX is available at their pharmacy. Pt verbalized understanding and stated they will check with their pharmacy regarding this medication. Thank you, [facility] Belt Builder Helper [facility] ([facility]) (formerly Telepharmacy) 02/06/2023,10:17 AM * Telephone Encounter - Felicia Baum CMA [...] scheduled. * Telephone Encounter - Arianna Jones information security manager - 02/05/2023 3:54 PM EST Pt's ec calling to check on status of rx. Thank you, Arianna Jones CPhT Belt Builder Helper [facility] ([facility]) (formerly Telepharmacy) [...] (Neurontin) . Medication was last prescribed by [facility] 7th Floor butpatient is asking if PCP can take over the medication. Please advise if this is appropriate and send to [facility] [place] [facility] [address] [place] [address] if agreeable. Thank you, Ana Hernandez Dyer Assistant I [facility] ([facility]) (Formerly Telepharmacy) 02/05/2023,1:48 PM documented in this encounter Plan of Treatment Upcoming Encounters Date Type Department Care Team (Late st Contact Info) Description 04/16/2023 2:20 PM EST Office Visit [facility] [address] [address] Av Graves MD [address] [address] Health Maintenance Due Date Last Done Comments DISCUSS TOBACCO CESSATION (REFER TO SMARTSET #0800) 1987 Hepatitis B (1 of 3 - [...] the patient have Health Care Power of Mft? No Full Code 12/25/2021 1:35 PM 01/06/2022 6:52 PM This order reflects the patients wishes and were consensually agreed upon. Question Answer Comments Discussion of Advance Directives occurred with: Family Does the patient have a Living Will? No Does the patient have Health Care Power of Mft? No Care Teams Landscape Crew Member Relationship Specialty Start Date End Date Av Graves MD [address] [phone] PCP - General Family Medicine 06/27/22 documented as of this encounter
--- OUTSIDE RECORDS SUMMARY | 2023-04-19 19:48 | External Medical Summary ---
Author Name Unknown Address Unknown Organization K1[facility] [address] [place] [address] Laboratory Report Ordering Provider Test Date Status BARON OTOOLE 01/31/2023 07:47:00 Final Observation Date Value Abnormality Reference (Units ) Status Body temperature 01/31/2023 07:47:00 37.0 (C) Final pH of Venous blood 01/31/2023 07:47:00 7.219 Below low normal 7.320-7.430 (units) Final Carbon dioxide [Partial pressure] in Venous blood 01/31/2023 07:47:00 58.4 40.0-60.0 (mmHg) Final Oxygen [Partial pressure] in Venous blood 01/31/2023 07:47:00 24.4 Below low normal 25.0-50.0 (mmHg) Final Base excess, Capillary 01/31/2023 07:47:00 -4.8 Below low normal -2.0-2.0 (mmol/L) Final Hemoglobin [Mass/volume] in Blood by Oximetry 01/31/2023 07:47:00 10.8 Below low normal 14.0-16.8 (g/dL) Final Oxyhemoglobin, Venous (FO2HB) 01/31/2023 07:47:00 35.9 Below low normal 40.0-85.0 (% total Hgb) Final Carboxyhemoglobin 01/31/2023 07:47:00 1.5 <=1.5 (% total Hgb) Final Smokers: 0-9.0 % Methemoglobin 01/31/2023 07:47:00 0.8 <= 1.5 (% total Hgb) Final Deoxyhemoglobin/Hemoglo bin.total in Venous blood 01/31/2023 07:47:00 61.8 (% total Hgb) Final Oxygen content in Venous blood 01/31/2023 07:47:00 5.4 Below low normal 7.0-18.0 (%vol) F inal Bicarbonate, Venous, POC (i-STAT) 01/31/2023 07:47:00 23.0 23.0-31.0 (mmol/L) Final Performing Location [facility] - [address] [place] [address]
--- OUTSIDE RECORDS SUMMARY | 2023-04-19 19:48 | External Medical Summary | Summary of Care ---
Author Name Unknown Organization [facility] Address [address] [place] [address] Care Team Providers Care Commercial Illustrator Name Role Phone Av Graves MD Primary Care Provider [phone] Reason for Visit * Reason Comments Nutritional Services Documentation Encounter Details Date Type Department Care Team (Late st Contact Info) Description 2023 2:30 PM EST Nutrition Services [facility] [address] [facility], [address] [place] [address] Nola Sorensen, RDN [address] [place] [address] Allergies No known active allergiesdocumented as of this encounter (statuses as of 2023) Medications Medication Sig Dispensed Refills Start Date End Date Status Methadone HCl 10 MG/ML Oral Concentrate Take 10.7 mL by mouth in the morning. 0 11/01/2021 Active OneTouch Verio w/Device KitIndications:Type 1 diabetes mellitus with hemoglobin A1c goal of less than 8.0% ([facility]) Use up to 4 times a day E11.9 1 Kit 0 12/02/2021 Active ProAir HFA 108 (90 Base) MCG/ACT Inhalation Aerosol SolutionIndications: Pneumonia of both upper lobes due to infectious organism Inhale by mouth 2 Puffs every 4 hours as needed for Wheezing. 18 g 1 01/10/2022 Active BD Pen Needle Mini U/F 31G X 5 MM (Insulin Pen Needle)Indications:T ype 1 diabetes mellitus with hemoglobin A1c goal of less than 8.0% ([facility]) USE THREE TIMES DAILY WITH HUMALOG KWIK PEN E10.9 100 Each 0 12/13/2022 Active OneTouch Delica Plus [id number] :Type 1 diabetes mellitus with hemoglobin A1c goal of less than 8.0% ([facility]) test blood sugars FOUR TIMES DAILY E10.9 100 Each 0 12/13/2022 Active OneTouch Verio In Vitro Strip (Glucose Blood)Indications:Ty pe 1 diabetes mellitus with hemoglobin A1c goal of less than 8.0% ([facility]) Use up to 4 times a day E10.9 100 Strip 0 12/13/2022 Active Amoxicillin-Pot Clavulanate 875-125 MG Oral Tablet (Augmentin) Take 1 Tablet by mouth in the morning and 1 Tablet before bedtime. 28 Tablet 0 01/18/2023 Active Gabapentin 300 MG Oral Capsule (Neurontin) Take 1 Capsule by mouth in the morning and 1 Capsule at noon and 1 Capsule before bedtime. 42 Capsule 0 01/18/2023 Active Levothyroxine Sodium 88 MCG Oral Tablet (Levoxyl) Take 1 Tablet by mouth daily first thing in the morning. 14 Tablet 0 01/18/2023 Active Midodrine HCl 10 MG Oral Tablet (Proamatine) Take 1 Tablet by mouth in the morning and 1 Tablet at noon and 1 Tablet before bedtime. 42 Tablet 0 01/18/2023 Active Mirtazapine 15 MG Oral Tablet (Remeron) Take 1 Tablet by mouth at bedtime. 14 Tablet 0 01/18/2023 Active QUEtiapine Fumarate 200 MG Oral Tablet (SEROquel)Indication s:Bipolar 1 disorder, depressed (HCC) Take 1 Tablet by mouth at bedtime. 14 Tablet 0 01/18/2023 Active Sulfamethoxazole-Tri methoprim 800-160 MG Oral Tablet (Bactrim DS) Take 1 Tablet by mouth in the morning and 1 Tablet before bedtime. 28 Tablet 0 01/18/2023 Active Culturelle Oral Capsule Take 1 Capsule by mouth at noon and 1 Capsule in the evening. 28 Capsule 0 01/18/2023 Active Nicotine 14 MG/24HR Transdermal Patch 24 Hour (Nicoderm CQ) Place 1 Patch over 24 hours topically on the skin in the morning. 0 01/19/2023 Active Nutrisource Fiber Oral Packet Take 1 Packet by mouth in the morning. 14 Packet 0 01/19/2023 Active Sertraline HCl 100 MG Oral Tablet (Zoloft) [...] at bedtime. 15 mL 0 01/18/2023 Active Insulin Aspart 100 UNIT/ML Subcutaneous Solution Pen-injector (novoLOG) Inject 1-4 units four times daily (morning, noon, evening and bedtime) per sliding scale 15 mL 0 01/18/2023 Active documented as of this encounter (statuses as of 2023) Active Problems Problem Noted Date Diagnosed Date Nocturnal diarrhea 01/08/2023 Bipolar 2 disorder, major [...] as of this encounter (statuses as of 2023) Resolved Problems Problem Noted Date Diagnosed Date [...] as of this encounter (statuses as of 2023) Immunizations Name Administration Dates Next Due SEASONAL [...] or making decisions? (5 years old or older Yes 12/27/2022 documented as of this encounter Progress Notes * Nola Sorensen RDN - 2023 2:07 PM EST "Second attempt to outreach to patient" Patient assessed with severe malnutrition during recent inpatient stay. Patient contacted via telephone to discuss current nutritional risk. Patient not able to be reached by DINESH. Voicemail left for patient. Patient sent "Take Charge of your Nutrition" brochur e via [employer] and/or postal mail. documented in this encounter Plan of Treatment Upcoming Encounters Date Type Department Care Team (Late st Contact Info) Description 01/26/2023 11:00 AM EST Office Visit [facility] [place] [address] [address] Av Graves MD [address] [address] Health Maintenance Due Date Last Done Comments DISCUSS TOBACCO CESSATION (REFER TO SMARTSET #8259) 1987 Hepatitis B (1 of 3 - 3-dose series) 1987 COVID-19 Vaccine (#1) 1987 Pneumococcal Vaccine: Pediatrics (0 to 5 Years) and At-Risk Patients (6 to 64 Years) (1 - PCV) 1993 Diabetic Eye Exam 12/31/2021 12/31/2020, 12/31/2012 Albumin/Creatinine Ratio 11/01/2022 11/01/2021 Influenza Vaccine (FLU shot) (#1) 2022 Diabetic Foot Exam 12/02/2022 12/02/2021, 12/31/2020 HbA1c 06/30/2023 12/29/2022, 10/17, 06/28/2022, Additional history exists TSH 01/05/2024 01/04/2023, 10/17, 06/28/2022, Additional history exists GFR 01/13/2024 01/12/2023, 12/18, 01/04/2023, Additional history exists Depression Screening 01/19/2024 01/18/2023 DTaP,Tdap,and Td Vaccines (3 - Td or [...] the patient have Health Care Power of Material Yard Clerk? No Full Code 12/25/2021 1:35 PM 01/06/2022 6:52 PM Thi s order reflects the patients wishes and were consensually agreed upon. Question Answer Comments Discussion of Advance Directives occurred with: Family Does the patient have a Living Will? No Does the patient have Health Care Power of Material Yard Clerk? No Care Teams Commercial Illustrator Relationship Specialty Start Date End Date Av Graves MD [address] [address] PCP - General Family Medicine 06/27/22 documented as of this encounter
--- OUTSIDE RECORDS SUMMARY | 2023-04-19 19:48 | External Medical Summary ---
Author Name Unknown Address Unknown Organization K1F:[facility] - [address] [address] Laboratory Report Ordering Provider Test Date Status BARON OTOOLE 01/31/2023 07:47:00 Final Observation Date Value Abnormality Reference (Units ) Status BUN 01/31/2023 07:47:00 32 Above high normal 6-20 (mg/dL) Final Creatinine 01/31/2023 07:47:00 1.4 Above high normal 0.6-1.2 (mg/dL) Final Glomerular filtration rate/1.73 sq M.predicted [Volume Rate/Area] in Serum, Plasma or Blood by Creatinine-based formula (CKD-EPI) 01/31/2023 07:47:00 67 >=60 (mL/min) Final eGFR is calculated based on the CKD-EPI 2020 equation SODIUM 01/31/2023 07:47:00 126 Below low normal 135 -146 (mmol/L) Final Potassium 01/31/2023 07:47:00 4.5 3.5-5.1 (m mol/L) Final Cl 01/31/2023 07:47:00 92 Below low normal 98- 107 (mmol/L) Final CO2 01/31/2023 07:47:00 21 Below low normal 22- 32 (mmol/L) Final Anion gap 01/31/2023 07:47:00 13 7-15 (mmol /L) Final Glucose 01/31/2023 07:47:00 314 Above high normal 70 -120 (mg/dL) Final Albumin 01/31/2023 07:47:00 4.1 3.8-5.0 (g /dL) Final AST (Aspartate aminotransferase) 01/31/2023 07:47:00 109 Above high normal 10-50 (U/L) Final Alk Phos 01/31/2023 07:47:00 131 Above high normal 35 -130 (U/L) Final Bilirubin, Total 01/31/2023 07:47:00 0.2 <=1 .2 (mg/dL) Final Calcium 01/31/2023 07:47:00 9.7 8.4-10.2 ( mg/dL) Final Protein 01/31/2023 07:47:00 7.1 6.0-8.3 (g /dL) Final ALT (Alanine aminotransferase) 01/31/2023 07:47:00 118 Above high normal 10-50 (U/L) Final Performing Location [facility] - [facility] [address] [place] [address]
--- OUTSIDE RECORDS SUMMARY | 2023-04-19 19:48 | External Medical Summary ---
Author Name Unknown Address Unknown Organization K1F:[facility] - [address] [place] [address] Laboratory Report Ordering Provider Test Date Status BARON OTOOLE 01/31/2023 09:06:00 Final Observation Date Value Abnormality Reference (Units ) Status Troponin T 01/31/2023 09:06:00 23 Above high normal < =22 (ng/L) Final Performing Location [facility] - [address] [place] [address]
--- OUTSIDE RECORDS SUMMARY | 2023-04-19 19:48 | External Medical Summary ---
Author Name Unknown Address Unknown Organization [facility] - [address] [place] [address] Laboratory Report Ordering Provider Test Date Status BARON OTOOLE 01/31/2023 07:47:00 Final Observation Date Value Abnormality Reference (Units ) Status Lactic Acid 01/31/2023 07:47:00 2.3 Above high normal 0.4-2.0 (mmol/L) Final Performing Location [facility] - [address] [place] [address]
--- OUTSIDE RECORDS SUMMARY | 2023-04-19 19:48 | External Medical Summary | Summary of Care ---
Author Name Unknown Organization [facility] Address [address] [place] [address] Phone [phone] Care Team Providers Care Tufting Supervisor Name Role Phone Av Graves MD Primary Care Provider [phone] Reason for Visit * Reason Onset Date Comments Med Request 02/05/2023 Encounter Details Date Type Department Care Team (Late st Contact Info) Description 02/05/2023 Telephone [facility] [address] [facility] [place] [address] Av Graves MD 21 [place] [address] Med Request Allergies No known active allergiesdocumented as of this encounter (statuses as of 02/05/2023) Medications Medication Sig Dispensed Refills Start Date [...] Each 0 12/13/2022 Active OneTouch Delica Plus [id number] s:Type 1 diabetes mellitus with hemoglobin A1c goal of less than 8.0% ([facility]) test blood sugars FOUR TIMES DAILY E10.9 100 Each 0 12/13/2022 Active OneTouch Verio In Vitro Strip (Glucose Blood)Indications:T ype 1 diabetes mellitus with hemoglobin A1c goal of less than 8.0% ([facility]) Use up to 4 times a day E10.9 100 Strip 0 12/13/2022 Active Gabapentin 300 MG Oral Capsule (Neurontin) [...] at bedtime. 14 Tablet 0 01/18/2023 Active Nicotine 14 MG/24HR [...] for Wheezing. 18 g 1 02/05/2023 Active documented as of this encounter (statuses as of 02/05/2023) Active Problems Problem Noted Date Diagnosed Date [...] as of this encounter (statuses as of 02/05/2023) Resolved Problems Problem Noted Date Diagnosed Date [...] as of this encounter (statuses as of 02/05/2023) Immunizations Name Administration Dates Next Due SEASONAL [...] Miscellaneous Notes * Telephone Encounter - Arianna Jones PHARM Tech - 02/05/2023 3:54 PM EST Pt's ec calling to check on status of rx. Thank you, Arianna Jones CPhT Graphotype Operator [facility] ([facility] (formerly [...] (Neurontin) . Medication was last prescribed by [facility] butpatient is asking if PCP can take over the medication. Please advise if this is appropriate and send to [facility] [place] [facility] [place] [address] if agreeable. Thank you, Ana Hernandez Purchasing Agent I [facility] ([facility]) (Formerly [facility]pharm[facility]) 02/05/2023,1:48 PM documented in this encounter Plan of Treatment Upcoming Encounters Date Type Department Care Team (Late st Contact Info) Description 04/16/2023 2:20 PM EST Office Visit [facility] [address] [phone] Av Graves MD [address] [address] Health Maintenance Due Date Last Done Comments DISCUSS TOBACCO CESSATION (REFER TO SMARTSET #0965) 1987 Hepatitis B (1 of 3 - [...] the patient have Health Care Power of Computer Forensics Technician? No Full Code 12/25/2021 1:35 PM 01/06/2022 6:52 PM This order reflects the patients wishes and were consensually agreed upon. Question Answer Comments Discussion of Advance Directives occurred with: Family Does the patient have a Living Will? No Does the patient have Health Care Power of Computer Forensics Technician? No Care Teams Tufting Supervisor Relationship Specialty Start Date End Date Av Graves MD [address] [phone] PCP - General Family Medicine 06/27/22 documented as of this encounter
--- OUTSIDE RECORDS SUMMARY | 2023-04-19 19:48 | External Medical Summary ---
Author Name Unknown Address Unknown Organization K1F:[facility] - [address] [place] [address] [address] [place] [address] Laboratory Report Ordering Provider Test Date Status BINH OTOOLEMAURI 01/31/2023 11:45:01 Final Cutoff Concentrations:
Drug Level
Amphetamines 500 ng/mL
Benzodiazepines 100 ng/mL
Cannabinoids 50 ng/mL
Cocaine Metabolite 150 ng/mL
Fentanyl 1 ng/mL
Hydrocodone / Hydromorphone 300 ng/mL
Methadone Metabolite 100 ng/mL
Morphine / Codeine 300 ng/mL
Oxycodone / Oxymorphone 100 ng/mL

Screening results are presumptive and can only be used for medical purposes. Confirmatory testing is available upon request. Observation Date Value Abnormality Reference (Units ) Status Amphetamines, Urine screen 01/31/2023 11:45:01 Negative Negative Final Benzodiazepines, Urine screen 01/31/2023 11:45:01 Negative Negative Final Cannabinoids, Urine screen 01/31/2023 11:45:01 Positive Abnormal Negative Final Cocaine Metabolite, Urine screen 01/31/2023 11:45:01 Negative Negative Final fentaNYL [Presence] in Urine by Screen method 01/31/2023 11:45:01 Negative Negative Final HYDROcodone [Presence] in Urine by Screen method 01/31/2023 11:45:01 Negative Negative Final 0-Ypgqhozmmj-2,5-Dimeth yl-3,3-Diphenylpyrrolid ine (EDDP) [Presence] in Urine 01/31/2023 11:45:01 Positive Abnormal Negative Final Opiates, Urine screen 01/31/2023 11:45:01 Negative Negative Final oxyCODONE [Presence] in Urine by Screen method 01/31/2023 11:45:01 Negative Negative Final Performing Location [facility] - [address] [place] [address]
--- OUTSIDE RECORDS SUMMARY | 2023-04-19 19:48 | External Medical Summary | Summary of Care ---
Author Name Unknown Organization [facility] Address [address] [place] [address] Phone [phone] Care Team Providers Care It Compliance Analyst Name Role Phone Av Graves MD Primary Care Provider [phone] Reason for Visit * Reason Onset Date Comments Scan To Read 02/05/2023 Encounter Details Date Type Department Care Team (Late st Contact Info) Description 02/05/2023 Telephone [facility] 21 [facility] [place] [address] Av Graves MD [address] [place] [address] Scan To Read Allergies No known active allergiesdocumented as of [...] Each 0 12/13/2022 Active OneTouch Delica Plus [id number] s:Type 1 diabetes mellitus with hemoglobin A1c goal of less than 8.0% ([facility]) test blood sugars FOUR TIMES DAILY E10.9 100 Each 0 12/13/2022 Active OneTouch Verio In Vitro Strip (Glucose Blood)Indications:T ype 1 diabetes mellitus with hemoglobin A1c goal of less than 8.0% ([facility]) Use up to 4 times a day [...] encounter Miscellaneous Notes * Telephone Encounter - Binta Hoyt LPN - 02/05/2023 1:28 PM EST A Diabetic Telemed Eye image was taken and requires your interpretation for HANNAH Ramsey. Please check your inbasket for image. Patient prefers to be seen at [facility] if a follow-up appointmentis needed. documented in this encounter Plan of Treatment Upcoming Encounters Date Type Department Care Team (Late st Contact Info) Description 04/16/2023 2:20 PM EST [facility] [address] [phone] Av Graves MD [address] [address] Health Maintenance Due Date Last Done Comments DISCUSS TOBACCO CESSATION (REFER TO SMARTSET #9804) 1987 Hepatitis B (1 of 3 - [...] the patient have Health Care Power of Diploma Medical Assistant? No Full Code 12/25/2021 1:35 PM 01/06/2022 6:52 PM This order reflects the patients wishes and were consensually agreed upon. Question Answer Comments Discussion of Advance Directives occurred with: Family Does the patient have a Living Will? No Does the patient have Health Care Power of Diploma Medical Assistant? No Care Teams It Compliance Analyst Relationship Specialty Start Date End Date Av Graves MD [address] [phone] PCP - General Family Medicine 06/27/22 documented as of this encounter
--- OUTSIDE RECORDS SUMMARY | 2023-04-19 19:48 | External Medical Summary ---
Author Name Unknown Address Unknown Organization K1F:[facility] - [address] [place] [address] Laboratory Report Ordering Provider Test Date Status BARON OTOOLE 01/31/2023 07:47:00 Final Observation Date Value Abnormality Reference (Units ) Status SYNC LEUKOCYTES IN BLOOD BY AUTOMATED COUNT 01/31/2023 07:47:00 6.13 4.00-10.80 (K/uL) Final Segs 01/31/2023 07:47:00 76.4 Above high normal 40.0-75.0 (%) Final Lymphs % 01/31/2023 07:47:00 19.1 18.0-42.0 (%) Final Monos 01/31/2023 07:47:00 3.6 1.0-11.0 (%) Final Eosinophils 01/31/2023 07:47:00 0.3 0.0-6.0 (%) Final Basos 01/31/2023 07:47:00 0.3 0.0-2.0 (%) Final Immature Granulocyte, Percent 01/31/2023 07:47:00 0.3 0.0-2.0 (%) Final Absolute Segs 01/31/2023 07:47:00 4.68 1.80-7.70 (K/uL) Final Lymphs, absolute 01/31/2023 07:47:00 1.17 1.00-4.80 (K/ul) Final Monos, Abs 01/31/2023 07:47:00 0.22 0.00-1.10 (K/uL) Final Eos, Abs 01/31/2023 07:47:00 0.02 0.00-0.70 (K/uL) Final Basos, Abs 01/31/2023 07:47:00 0.02 0.00-0.20 (K/uL) Final Immature Granulocytes, Number 01/31/2023 07:47:00 0.02 0.00-0.20 (K/uL) Final Performing Location [facility] [address] [facility] [facility] [address] [address]
--- OUTSIDE RECORDS SUMMARY | 2023-04-19 19:48 | External Medical Summary | Summary of Care ---
Author Name Unknown Organization [facility] Address [address] [place] [address] Phone [phone] Care Team Providers Care Building Services Engineer Name Role Phone Av Graves MD Primary Care Provider [phone] Reason for Visit * Reason Onset Date Comments Med Request 02/05/2023 Encounter Details Date Type Department Care Team (Late st Contact Info) Description 02/05/2023 Telephone [facility] [address] [place] [address] Av Graves MD [address] [place] [address] Med Request Allergies No known [...] Each 0 12/13/2022 Active OneTouch Delica Plus [id number] s:Type 1 diabetes mellitus with hemoglobin A1c goal of less than 8.0% ([facility]) test blood sugars FOUR TIMES DAILY E10.9 100 Each 0 12/13/2022 Active OneTouch Verio In Vitro Strip (Glucose Blood)Indications:T ype 1 diabetes mellitus with hemoglobin A1c goal of less than 8.0% ([facility]) Use up to 4 times [...] encounter Miscellaneous Notes * Telephone Encounter - Billy Kern LPN - 02/05/2023 2:03 PM EST Please advise on below message. Thank you. * Telephone Encounter - Tanja Hernandez CPhT - 02/05/2023 1:48 PM EST Pt's calling to request a refill on Mirtazapine 15 MG Oral Tablet (Remeron) and Gabapentin 300MG Oral Capsule (Neurontin) . Medication was last prescribed by [address] [place], [place] [address] [address] butpatient is asking if PCP can take over the medication. Please advise if this is appropriate and send to [facility] [place] [facility] [address] [place] [address] [place] if agreeable. Thank you, Ana Hernandez Technical Photographer I [facility] ([facility]) (Formerly Tele[facility]) 02/05/2023,1:48 PM documented in this encounter Plan of Treatment Upcoming Encounters Date Type Department Care Team (Late st Contact Info) Description 04/16/2023 2:20 PM EST Office Visit [facility] [address] [phone] Av Graves MD [address] [address] Health Maintenance Due Date Last Done Comments DISCUSS TOBACCO CESSATION (REFER TO SMARTSET #5011) 1987 Hepatitis B (1 of 3 - [...] the patient have Health Care Power of Vocational School Teacher? No Full Code 12/25/2021 1:35 PM 01/06/2022 6:52 PM This order reflects the patients wishes and were consensually agreed upon. Question Answer Comments Discussion of Advance Directives occurred with: Family Does the patient have a Living Will? No Does the patient have Health Care Power of Vocational School Teacher? No Care Teams Building Services Engineer Relationship Specialty Start Date End Date Av Graves MD [address] [address] PCP - General Family Medicine 06/27/22 documented as of this encounter
--- OUTSIDE RECORDS SUMMARY | 2023-04-19 19:48 | External Medical Summary | Summary of Care ---
Author Name Unknown Organization [facility] Address [address] [place] [address] Phone [phone] Care Team Providers Care Php Wordpress Developer Name Role Phone Av Graves MD Primary Care Provider [phone] Reason for Visit * Reason Comments Seizure Hyperglycemia * Auth/Cert Specialty Diagnoses / Procedures Referred By Leticia nash Referred To Contact Referral ID Status Reason Start Date Expiration Date Visits Re quested Visits Authorized [id number] Encounter Details Date Type Department Care Team (Late st Contact Info) Description 01/31/2023 7:11 AM EST - 01/31/2023 1:46 PM EST Emergency [facility] Emergency [facility] ([facility]) [address] [place] [address] Bakari Aviles MD [address] [place] [address] Rhinovirus (Primary Dx) Discharge Disposition: Home - Self Care Allergies No known active allergiesdocumented as of this encounter (statuses as of 02/01/2023) Medications Medication Sig Dispensed Refills Start Date [...] of less than 8.0% ([facility]) USE THREE TIMES DAILY WITH HUMALOG KWIK PEN E10.9 100 Each 0 12/13/2022 Active [employer] Delica Plus [id number] :Type 1 diabetes mellitus with hemoglobin A1c goal of less than 8.0% ([facility]) test blood sugars FOUR TIMES DAILY E10.9 100 Each 0 12/13/2022 Active [employer] Verio In Vitro Strip (Glucose Blood)Indications:Ty pe [...] Oral Tablet (SEROquel)Indication s:Bipolar 1 disorder, depressed ([facility]) Take [...] as of this encounter (statuses as of 02/01/2023) Active Problems Problem Noted Date Diagnosed Date [...] as of this encounter (statuses as of 02/01/2023) Resolved Problems Problem Noted Date Diagnosed Date [...] as of this encounter (statuses as of 02/01/2023) Immunizations Name Administration Dates Next Due SEASONAL [...] on file documented as of this encounter Last Filed Vital Signs Vital Sign Reading Time Taken Comments Blood Pressure 105/76 01/31/2023 1:26 PM EST Pulse 89 01/31/2023 1:26 PM EST Temperature 36 C (96.8 F) 01/31/2023 7:15 AM EST Respiratory Rate 18 01/31/2023 1:26 PM EST Oxygen Saturation 96% 01/31/2023 7:15 AM EST Inhaled Oxygen Concentration - - Weight 49.9 kg (110 lb) 01/31/2023 7:15 AM EST Height - - Body Mass Index 17.75 12/11/2022 8:50 PM EDT documented in this encounter Functional Status Functional Status Response [...] Yes 12/27/2022 documented as of this encounter Discharge Instructions * Discharge Instructions* Bakari Aviles MD - 01/31/2023 1:06 PM EST You have rhinovirus which is a common cold virus. Please stay well hydrated. Please follow a bland diet for the next few days. Return with worsening back pain, abdominal pain, nausea, vomiting, inability eat or drink, chest pain, shortness of breath Please return to this Emergency Department or seek emergent care if your symptoms change, worsen significantly, or concern you in any way. Concerning symptoms that would require re-evaluation include, but are not necessarily limited to: - Fevers or shaking chills - Chest pain or difficulty breathing - Severe headache, numbness or tingling, or confusion - Persistent vomiting, severe abdominal pain, abdominal bloating, or bloody bowel movements - Inability to urinate or if your urine is significantly decreased Let us know if you have any questions regarding these instructions or the care you received here before leaving the Emergency Department. Please read the attached pamphlet for more information about your diagnosis and treatment. documented in this encounter Procedure Notes * Kalpesh Rich DO - 01/31/2023 7:50 AM ESTAssociated Order(s): EKG REASON FOR STUDY: ABD PAIN CONCLUSIONS: Normal sinus rhythm Possible Left atrial enlargement Rightward axis Nonspecific ST abnormality Abnormal ECG When compared with ECG of 27-DEC-2022 12:28, No significant change was found Ventricular Rate: 95 Atrial Rate: 95 MA Interval: 124 QRS Duration: 80 QT/QTc: 348/437 ms P-R-T [place]: 82 : 98 : 81 degrees documented in this encounter ED Notes * Bakari Aviles MD - 01/31/2023 7:41 AM EST HISTORY OF PRESENT ILLNESS Gil Irby is a 38 year old male who presents to the ED for evaluation of Seizure and Hyperglycemia. The patient was seen at 01/31/23 0712. History provided by: patient and EMS History provided by comment: And sisterCalli 38 y/o M presents to the ED with numerous complaints. Patient states he felt lightheaded last nightand currently feels this way. He states he had 2 episodes of shaking. He states he has had some seizures before. He urinated himself last evening. He states his daughter told him about the shaking episodes. He states his blood sugars have been high in the 400-500 range. He also has lower back pain. Denies any trauma. Endorses some nausea and vomiting. Endorses some chest pain and shortness of breath. He states he has been urinating frequently. Denies any fevers or chills. He is plans for aright 5th digit amputation soon. He is currently taking 2 antibiotics. He states he last used methamphetamines 1 week ago. Denies any additional drug or alcohol use. EMS reports seizure-like activitytoday for them with a approx 5 minute postictal phase. SisterCalli mentions that patient had a recent 7A admission. He has been having difficulties finding a place to stay although she has not talked to him a few weeks. He was recently using methamphetamines and fentanyl. The patient's allergies, past history, and medications were reviewed. PHYSICAL EXAM Initial Vitals (see all): BP 91/66 | Pulse 89 | Resp 20 | Temp 96.8 | O2 96 %, Room Air, None | Weight 49.9 kg | Height 167.6cm | BMI 17.75 kg/m2 Initial Pain Assessment (see all): 8 (severe pain)/103/10 ([facility] Adult Scale 0-10) Physical Exam Vitals and nursing note reviewed. Constitutional: General: He is not in acute distress. Appearance: He is cachectic. He is ill-appearing. Comments: Somewhat sleepy, answers questions appropriate HENT: Head: Normocephalic and atraumatic. Cardiovascular: Rate and Rhythm: Normal rate and regular rhythm. Pulmonary: Effort: Pulmonary effort is normal. No respiratory distress. Abdominal: Palpations: Abdomen is soft. Tenderness: There is no abdominal tenderness. There is no guarding or rebound. Musculoskeletal: Comments: No tenderness to the L-spine Skin: General: Skin is warm and dry. Coloration: Skin is pale. Neurological: Mental Status: He is alert. Mental status is at baseline. PROCEDURES AND TREATMENTS ED Orders | ED Results MEDICAL DECISION MAKING Nursing notes and vital signs were reviewed. Differential Diagnoses Based on my history, physical exam, and evaluation, the differential includes, but is not limited, to the following diagnoses: Electrolyte disturbance, DKA, occult infectious process, polysubstance abuse, seizure, ICH. Patient presents to the emergency department numerous complaints including lightheadedness, fatigue, concern for seizure, as well as hyperglycemia. Patient exam appears ill and pale; triage vitals notable for hypotension at 91/66. Fluids have been ordered. Patient has a complex medical history including history of polysubstance abuse. Broad workup will be pursued. Patient will be provided with fluids here. Consider DKA. Electrolyte disturbance certainly possible. Head CT has been ordered. Amount and/or Complexity of Data Reviewed Independent Historian: EMS Labs: ordered. Decision-making details documented in ED Course. Radiology: ordered. ECG/medicine tests: ordered. Risk Prescription drug management. ED Course as of 01/31/23 1750 SunJan 31, 2023 0753 My EKG interpretation: Normal sinus rhythm at 95 beats per minute. No evidence of STEMI or obvious dysrhythmia. [DR] 0858 Troponin T, High Sensitivity(!): 29 [DR] 0858 Lactate(!): 2.3 [DR] 0858 Glucose(!): 314 [DR] 0858 Sodium(!): 126 [DR] 0858 Renal function similar 2 weeks ago [DR] 0859 LFTs elevated [DR] 0859 CT head: IMPRESSION: 1. No definite acute intracranial abnormality. 2. No hemorrhage, mass lesion, acute infarction. 3. Chronic findings as above. 4. Additional findings, as described above. [DR] 0859 pH, Venous(!): 7.219 [DR] 0913 Rhinovirus/Enterovirus by PCR(!): Positive [DR] 0913 CXR IMPRESSION: 1. Somewhat patchy bibasilar opacification. Considerations include widespread infection or aspiration, edema, among additional possibilities. Superimposed reactive airways disease and/or viral infection could be considered. Please correlate clinically. 2. Additional findings, as described above. I independently reviewed the image(s) [DR] 1038 ABD US: IMPRESSION: Moderate right hydroureteronephrosis [DR] 1136 Troponin T, High Sensitivity(!): 23 [DR] 1136 Pt ambulated from bed 7 to bathroom with one-man assist (could not keep balance otherwise). Pulse 106 and O2 sat 96% for the duration of the exercise. It should be noted that patient does ambulate with a cane at home but we do not have a cane here soa one man assist was used in lieu of the cane [DR] 1237 Cannabinoids(!): Positive [DR] 1237 Methadone Metabolite(!): Positive [DR] 1237 Blood, Urine(!): Trace [DR] 1237 Lactate: 1.0 cleared [DR] 1300 CT a/p: IMPRESSION: 1. Air-fluid levels within the colon which may reflect a diarrheal state 2. Distended bladder 3. No hydronephrosis 4. Fibrosis with ill-defined opacities at the lung bases [DR] 1304 Patient reassessed. He is requesting his methadone. He receives 107 mg of methadone daily. This will be ordered as his distributor in [place] is closed [DR] ED Course User Index [DR] Bakari Aviles MD Patient was clinically stable for discharge upon reassessment; return precautions were discussed - patient verbalized understanding and was agreeable; all their questions were answered prior to discharge; patient was instructed to return to the ED if they were at all concerned or if they felt their signs/symptoms were worsening Clinical Impressions Rhinovirus Disposition Discharged. The patient's condition at disposition was: stable. Bakari Aviles * Hue Gonzalez RN - 01/31/2023 7:16 AM EST FAME ALS Report: Pt has had n/v over the past few days, diabetic with BSBS over 400 at home. Pt is currently on 2 antibiotics in preparation for amputation of right fifth finger. Last used meth 1 week ago. EMS reports seizure activity when trying to get pt onto litter, states that the pt had constriction of muscle but no convulsions. EMS reports that this only last for a few seconds and then the pt had a 5 minute post-ictal period, states that pt is still lethargic. EMS reports that the pt as initially 65/45. Cam up to 89 SBP after 500 mL NSS. Pt reports 2 seizure last night. 20 gauge PIV in LAC. documented in this encounter Miscellaneous Notes * ED Package Handler Note - Mindy Trinh RN - 01/31/2023 1:31 PM EST Pt verbalized understanding of D/C instructions. Advised of return precautions. Pt awaiting ride atthis time. 1345: Pt assisted to wheelchair and escorted to waiting room. Pt stated his ride should be here anyminute. * ED Package Handler Note - Daniel Stevens TECH - 01/31/2023 11:03 AM EST Pt ambulated from bed 7 to bathroom with one-man assist (could not keep balance otherwise). Pulse 106 and O2 sat 96% for the duration of the exercise. * ED Package Handler Note - Bean Baxter RN - 01/31/2023 7:24 AM EST Patient arrives to the ED with complaints of back pain that started last night. Patient noted to belethargic and is a poor historian at this time. States he started with N/V and back pain last nightin which he has not had any exposures to anyone who has been sick. Per EMS patient's BSBS was 400 upon their arrival. Currently on 2 antibiotics in preparation to have his fifth digit of his R hand amputated. EMS reports 3 episodes of seizure like activity since last night in which one of the episodes was witnessed by EMS. Reports patient's muscles were constricted without any convulsions noted while they were attempting to get patient in the litter for transport. Also states patient was post-ictal for 5 minutes after the witnessed seizure like activity. Denies any seizure history at this time. Hx of meth and fentanyl use but verbalizes he has used any drugs in the past week. No other complaints verbalized. Patient is ill appearing with dried lips and pale skin. PERRLA noted bilaterally. Speech is clear and coherent. Answering orientation questions appropriately. NSR noted on EKG with HR in the 90's. Lung sounds clear bilaterally to the bases. Respirations even and unlabored. SpO2 noted to be 96% on room air. Sensation and movement present in all extremities. Bed low with side railsup and call dahl in reach. documented in this encounter Plan of Treatment Health Maintenance Due Date Last Done Comments DISCUSS TOBACCO CESSATION (REFER TO SMARTSET #[id number]) 1985 Hepatitis B (1 of 3 - [...] 02/01/2024 01/31/2023, 12/18, 01/09/2023, Additional history exists DTaP,Tdap,and Td Vaccines (3 - Td or Tdap) 01/11/2032 01/10/2022, 05/18/2011 GARDASIL-HPV IMMUNIZATION SERIES Aged Out No longer eligible based on patient's age to complete this topic MENINGOCOCCAL (MENACTRA/MENVEO) Aged Out No longer eligible based on patient's age to complete this topic documented as of this encounter Medical Devices Not on filedocumented as of this encounter Procedures Procedure Name Priority Date/Time Associated Diagnosis Comments CT ABD/PELVIS WO IV/ORAL CONTRAST STAT 01/31/2023 12:22 PM EST URINALYSIS WITH MICROSCOPIC EXAM STAT 01/31/2023 11:45 AM EST TOXICOLOGY, URINESCREEN W/O CONFIRMATION STAT 01/31/2023 11:45 AM EST LACTATE STAT 01/31/2023 11:41 AM EST US ABDOMEN LIMITED STAT 01/31/2023 10 :12 AM EST TROPONIN T, HIGH SENSITIVITY STAT 01/31/2023 9:[address] HEAD/BRAIN WO CONTRAST STAT 01/31/2023 8:30 AM EST RESPIRATORY PATHOGEN PANEL, PCR STAT 01/31/2023 7:59 AM EST XR CHEST 1 VIEW STAT 01/31/2023 7:58 AM EST MA ECG ROUTINE ECG W/LEAST 12 LDS I&R ONLY STAT 01/31/2023 7:50 AM EST EXTRA HOANG TOP Routine 01/31/2023 7:47 AM EST DIFFERENTIAL, AUTOMATED STAT 01/31/2023 7:47 AM EST TROPONIN T, HIGH SENSITIVITY STAT 01/31/2023 7:47 AM EST BLOOD GAS, VENOUS STAT 01/31/2023 7:4 7 AM EST COMPREHENSIVE METABOLIC PANEL STAT 01/31/2023 7:47 AM EST CK Add-on 01/31/2023 7:47 AM EST CBC STAT 01/31/2023 7:47 AM EST LIPASE STAT 01/31/2023 7:47 AM EST LACTATE STAT 01/31/2023 7:47 AM EST CBC STAT 01/31/2023 7:47 AM EST GLUCOSE METER, POINT OF CARE ADARSH 01/31/2023 7:35 AM EST documented in this encounter Results * CT ABD/PELVIS WO IV/ORAL CONTRAST (01/31/2023 12:22 PM EST) Anatomical Region Laterality Modality Body, Abdomen, Pelvis Computed T omography 01/31/2023 12:1 2 PM EST Impressions 01/31/2023 12:45 PM EST IMPRESSION: 1. Air-fluid levels within the colon which may reflect a diarrheal state 2. Distended bladder 3. No hydronephrosis 4. Fibrosis with ill-defined opacities at the lung bases THIS DOCUMENT HAS BEEN ELECTRONICALLY SIGNED BY JERI HOLBROOK MD Narrative 01/31/2023 12:45 PM EST PROCEDURE INFORMATION: Exam: CT Abdomen And Pelvis Without Contrast Exam date and time: 01/31/2023 12:12 PM Age: 38 years old Clinical indication: Abdominal pain; Flank; Right; Additional info: Assess right-sided hydronephrosis; Patient with back discomfort as well as nausea vomiting TECHNIQUE: Imaging protocol: Computed tomography of the abdomen and pelvis without contrast. Radiation optimization: All CT scans at this facility use at least one of these dose optimization techniques: automated exposure control; mA and/or kV adjustment per patient size (includes targeted exams where dose is matched to clinical indication); or iterative reconstruction. REPORTING DATA: Count of CT and Cardiac NM exams in prior 12 months: This patient has received 0 known CTs and 0 known cardiac nuclear medicine studies in the 12 months prior to the current study. COMPARISON: DX (ABD AP X-RENTERIA, ABDOMEN, ABD AP GRID Crosswise) 12/31/2021 4:51 PM FINDINGS: Lungs: There are coarse interstitial markings at the lung bases suggesting fibrosis and bronchiectasis. There are ill-defined opacities at the lung bases which may be due to superimposed pneumonia. Liver: No suspicious abnormality is seen within the liver Gallbladder and bile ducts: The gallbladder is contracted Pancreas: The pancreas does not a focal abnormality Spleen: Spleen is not enlarged Adrenal glands: The adrenal glands are unremarkable Kidneys and ureters: There is no hydronephrosis. The hydronephrosis has resolved since the prior ultrasound Stomach and bowel: The small bowel stool and gas pattern is nonspecific. There are short air-fluid levels within the colon. Is there diarrhea? The gastric outline is normal Appendix: There is no evidence of acute appendicitis Intraperitoneal space: There is no free intraperitoneal air Vasculature: Atheromatous change is seen Lymph nodes: No lymphadenopathy is seen Urinary bladder: The bladder is fairly distended. Reproductive: The prostate is unremarkable Bones/joints: No acute abnormality is seen within the bones Soft tissues: The soft tissues are unremarkable Procedure Note Jeri Holbrook MD - 01/31/2023 PROCEDURE INFORMATION: Exam: CT Abdomen And Pelvis Without Contrast Exam date and time: 01/31/2023 12:12 PM Age: 38 years old Clinical indication: Abdominal pain; Flank; Right; Additional info: Assess right-sided hydronephrosis; Patient with back discomfort as well as nausea vomiting TECHNIQUE: Imaging protocol: Computed tomography of the abdomen and pelvis without contrast. Radiation optimization: All CT scans at this facility use at least one ofthese dose optimization techniques: automated exposure control; mA and/or kV adjustment per patient size (includes targeted exams where dose is matchedto clinical indication); or iterative reconstruction. REPORTING DATA: Count of CT and Cardiac NM exams in prior 12 months: This patient hasreceived 0 known CTs and 0 known cardiac nuclear medicine studies in the 12 monthsprior to the current study. COMPARISON: DX (ABD AP X-RENTERIA, ABDOMEN, ABD AP GRID Crosswise) 12/31/2021 4:51 PM FINDINGS: Lungs: There are coarse interstitial markings at the lung bases suggesting fibrosis and bronchiectasis. There are ill-defined opacities at the lungbases which may be due to superimposed pneumonia. Liver: No suspicious abnormality is seen within the liver Gallbladder and bile ducts: The gallbladder is contracted Pancreas: The pancreas does not a focal abnormality Spleen: Spleen is not enlarged Adrenal glands: The adrenal glands are unremarkable Kidneys and ureters: There is no hydronephrosis. The hydronephrosis has resolved since the prior ultrasound Stomach and bowel: The small bowel stool and gas pattern is nonspecific.There are short air-fluid levels within the colon. Is there diarrhea? Thegastric outline is normal Appendix: There is no evidence of acute appendicitis Intraperitoneal space: There is no free intraperitoneal air Vasculature: Atheromatous change is seen Lymph nodes: No lymphadenopathy is seen Urinary bladder: The bladder is fairly distended. Reproductive: The prostate is unremarkable Bones/joints: No acute abnormality is seen within the bones Soft tissues: The soft tissues are unremarkable IMPRESSION IMPRESSION: 1. Air-fluid levels within the colon which may reflect a diarrheal state 2. Distended bladder 3. No hydronephrosis 4. Fibrosis with ill-defined opacities at the lung bases THIS DOCUMENT HAS BEEN ELECTRONICALLY SIGNED BY JERI HOLBROOK MD Bakari Aviles MD RAD CT * (ABNORMAL) TOXICOLOGY, URINESCREEN W/O CONFIRMATION (01/31/2023 11:45 AM EST) Amphetamine Negative Negative 01/31/2023 12:19 PM EST [facility] Benzodiazepines Negative Negative 12:19 PM EST [facility] Cannabinoids Positive(A) Negative 01/31/2023 12:19 PM EST [facility] Cocaine Metabolite Negative Negative 2022 12:19 PM EST [facility] Fentanyl Negative Negative 01/31/2023 12:19 PM EST [facility] Hydrocodone / Hydromorphone Negative Negative 01/31/2023 12:19 PM EST [facility] Methadone Metabolite Positive(A) Negative 01/31/2023 12:19 PM EST [facility] Morphine / Codeine Negative Negative 2022 12:19 PM EST [facility] Oxycodone / Oxymorphone Negative Negative 01/31/2023 12:19 PM EST [facility] Urine Non-blood Collection / Unknown 01/31/2023 11:45 AM EST 01/31/2023 11:51 AM EST Narrative [facility] - 01/31/2023 12:19 PM EST Cutoff Concentrations: Drug Level Amphetamines 500 ng/mL Benzodiazepines 100 ng/mL Cannabinoids 50 ng/mL Cocaine Metabolite 150 ng/mL Fentanyl 1 ng/mL Hydrocodone / Hydromorphone 300 ng/mL Methadone Metabolite 100 ng/mL Morphine / Codeine 300 ng/mL Oxycodone / Oxymorphone 100 ng/mL Screening results are presumptive and can only be used for medical purposes. Confirmatory testing is available upon request. Bakari Aviles MD LAB URINE ORDERA [facility] [address] [place] [address] * (ABNORMAL) URINALYSIS WITH MICROSCOPIC EXAM (01/31/2023 11:45 AM EST) Color, Urine Yellow Light Yellow, Yellow, Dark Yellow 01/31/2023 12:12 PM EST [facility] Clarity, Urine Clear Clear 01/31/2023 12:12 PM EST [facility] Glucose, Urine >=1000(A) Negative mg/dL 01/31/2023 12:12 PM EST [facility] Bilirubin, Urine Negative Negative 01/31/2023 12:12 PM EST [facility] Ketone, Urine Negative Negative mg/dL 01/31/2023 12:12 PM EST [facility] Specific [place], Urine 1.021 1.003 - 1.030 01/31/2023 12:12 PM EST [facility] Blood, Urine Trace(A) Negative 01/31/2023 12:12 PM EST [facility] pH, Urine 6.0 5.0 - 7.5 Units 01/31/2023 12:12 PM EST [facility] Protein, Urine Negative Negative mg/dL 01/31/2023 12:12 PM EST [facility] Urobilinogen, Urine 0.2 0.2, 1.0 mg/dL 01/31/2023 12:12 PM EST [facility] Nitrite, Urine Negative Negative 01/31/2023 12:12 PM EST [facility] Esterase, Urine Negative Negative 01/31/2023 12:12 PM EST [facility] RBC, Urine 0-2 0 - 2 /HPF 01/31/2023 12:12 PM EST [facility] WBC, Urine 0-2 0 - 2 /HPF 01/31/2023 12:12 PM EST [facility] Bacteria, Urine 26-50(A) 0 - 25 /HPF 01/31/2023 12:12 PM EST [facility] Amorphous Crystals, Urine Many(A) None /HPF 01/31/2023 12:12 PM EST [facility] Urine Urine specimen obtained by clean catch procedure / Unknown Non-blood Collection / Unknown 01/31/2023 11:45 AM EST 01/31/2023 11:50 AM EST Bakari Aviles MD LAB URINE ORDERA BLES Performing Organization Address [facility] Co de Phone Number LABORATORY [address] [address] * LACTATE (01/31/2023 11:41 AM EST) Lactate 1.0 0.4 - 2.0 mmol/L 01/31/2023 11:59 AM EST LAB[facility]ATORY [facility] Blood Venous blood specimen / Unknown Venipuncture / Unknown 01/31/2023 11:41 AM EST 01/31/2023 11:44 AM EST Bakari Aviles MD LAB BLOOD ORDERA BLES Performing Organization Address [facility] Co de Phone Number LABORATORY [address] [address] * US ABDOMEN LIMITED (01/31/2023 10:12 AM EST) Anatomical Region Laterality Modality Abdomen, Body Ultrasound 01/31/2023 9:46 AM EST Impressions 01/31/2023 10:21 AM EST IMPRESSION: Moderate right hydroureteronephrosis THIS DOCUMENT HAS BEEN ELECTRONICALLY SIGNED BY JERI HOLBROOK MD Narrative 01/31/2023 10:21 AM EST PROCEDURE INFORMATION: Exam: US Abdomen, Limited; Right Upper Quadrant Exam date and time: 01/31/2023 9:46 AM Age: 38 years old Clinical indication: Pain and abnormal findings; Abnormal lab test; Elevated liver enzymes; Abdominal pain; Localized; Right upper quadrant (ruq); Additional info: Elevated lfts TECHNIQUE: Imaging protocol: Real time ultrasound of the abdomen with image documentation. Limited exam focused on the right upper quadrant. COMPARISON: DX (ABD AP X-RENTERIA, ABDOMEN, ABD AP GRID Crosswise) 12/31/2021 4:51 PM FINDINGS: Liver: No focal abnormality was seen within the liver Gallbladder: The gallbladder was contracted. No shadowing gallstones were demonstrated. The gallbladder wall measures 3 mm Biliary ducts: The common bile duct measured 4 mm Pancreas: The pancreas is normal Right kidney: The right kidney measures 12.2 x 6.4 x 7.1 cm. There is moderate right hydroureteronephrosis. Inferior vena cava: The inferior vena cava measures 2.2 cm Portal venous: The main portal vein was patent Procedure Note Jeri Holbrook MD - 01/31/2023 PROCEDURE INFORMATION: Exam: US Abdomen, Limited; Right Upper Quadrant Exam date and time: 01/31/2023 9:46 AM Age: 38 years old Clinical indication: Pain and abnormal findings; Abnormal lab test;Elevated liver enzymes; Abdominal pain; Localized; Right upper quadrant (ruq); Additional info: Elevated lfts TECHNIQUE: Imaging protocol: Real time ultrasound of the abdomen with imagedocumentation. Limited exam focused on the right upper quadrant. COMPARISON: DX (ABD AP X-RENTERIA, ABDOMEN, ABD AP GRID Crosswise) 12/31/2021 4:51 PM FINDINGS: Liver: No focal abnormality was seen within the liver Gallbladder: The gallbladder was contracted. No shadowing gallstones were demonstrated. The gallbladder wall measures 3 mm Biliary ducts: The common bile duct measured 4 mm Pancreas: The pancreas is normal Right kidney: The right kidney measures 12.2 x 6.4 x 7.1 cm. There ismoderate right hydroureteronephrosis. Inferior vena cava: The inferior vena cava measures 2.2 cm Portal venous: The main portal vein was patent IMPRESSION IMPRESSION: Moderate right hydroureteronephrosis THIS DOCUMENT HAS BEEN ELECTRONICALLY SIGNED BY JERI HOLBROOK MD Bakari Aviles MD RAD ULTRASOUND * (ABNORMAL) TROPONIN T, HIGH SENSITIVITY (01/31/2023 9:06 AM EST) Troponin T, High Sensitivity 23(H) <=22 ng/L 01/31/2023 9:38 AM EST LABORATORY [facility] Blood Venous blood specimen / Unknown Venipuncture / Unknown 01/31/2023 9:06 AM EST 01/31/2023 9:10 AM EST Bakari Aviles MD LAB BLOOD ORDERA BLES LABORATORY [facility] [address] [id number] * CT HEAD/BRAIN WO CONTRAST (01/31/2023 8:30 AM EST) Anatomical Region Laterality Modality Head Computed Tomogra phy 01/31/2023 8:26 AM EST Impressions 01/31/2023 8:44 AM EST IMPRESSION: 1. No definite acute intracranial abnormality. 2. No hemorrhage, mass lesion, acute infarction. 3. Chronic findings as above. 4. Additional findings, as described above. THIS DOCUMENT HAS BEEN ELECTRONICALLY SIGNED BY MAXI ELAM MD Narrative 01/31/2023 8:44 AM EST PROCEDURE INFORMATION: Exam: CT Head Without Contrast Exam date and time: 01/31/2023 8:26 AM Age: 38 years old Clinical indication: Other: Sz TECHNIQUE: Imaging protocol: Computed tomography of the head without contrast. Radiation optimization: All CT scans at this facility use at least one of these dose optimization techniques: automated exposure control; mA and/or kV adjustment per patient size (includes targeted exams where dose is matched to clinical indication); or iterative reconstruction. Other technique: Coronal reformations were performed. Sagittal reformations were performed. REPORTING DATA: Count of CT and Cardiac NM exams in prior 12 months: This patient has received 0 known CTs and 0 known cardiac nuclear medicine studies in the 12 months prior to the current study. COMPARISON: CT HEAD/BRAIN WO CONTRAST 01/02/2022 5:53 PM FINDINGS: Brain: No midline shift at level of foramen Monro. Basal cisterns patent. Newman-white differentiation appears preserved. No intracranial hemorrhage. No extra-axial fluid collection. Cerebral ventricles: Ventricles, sulci, fissures unremarkable. Cavum septum pellucidum. Paranasal sinuses: Minimal paranasal sinus mucosal thickening. Left maxillary sinus mucus retention cyst versus polyp formation or nodular mucosal thickening. Mastoid air cells: Mastoid air cells demonstrate no significant opacification. Bones/joints: Calvarium demonstrates no acute abnormality. Chronic appearing nasal bone fracture deformity. Bones are demineralized within portions. Chronic right medial orbital wall fracture with herniation of fat and portion medial rectus musculature into associated defect. Visualized orbits otherwise unremarkable. Soft tissues: Extracranial soft tissues unremarkable. Vasculature: Suggestion of hemoconcentration. Procedure Note Maxi Elam MD - 01/31/2023 PROCEDURE INFORMATION: Exam: CT Head Without Contrast Exam date and time: 01/31/2023 8:26 AM Age: 38 years old Clinical indication: Other: Sz TECHNIQUE: Imaging protocol: Computed tomography of the head without contrast. Radiation optimization: All CT scans at this facility use at least one ofthese dose optimization techniques: automated exposure control; mA and/or kV adjustment per patient size (includes targeted exams where dose is matchedto clinical indication); or iterative reconstruction. Other technique: Coronal reformations were performed. Sagittalreformations were performed. REPORTING DATA: Count of CT and Cardiac NM exams in prior 12 months: This patient hasreceived 0 known CTs and 0 known cardiac nuclear medicine studies in the 12 monthsprior to the current study. COMPARISON: CT HEAD/BRAIN WO CONTRAST 01/02/2022 5:53 PM FINDINGS: Brain: No midline shift at level of foramen Monro. Basal cisterns patent. Newman-white differentiation appears preserved. No intracranial hemorrhage.No extra-axial fluid collection. Cerebral ventricles: Ventricles, sulci, fissures unremarkable. Cavumseptum pellucidum. Paranasal sinuses: Minimal paranasal sinus mucosal thickening. Leftmaxillary sinus mucus retention cyst versus polyp formation or nodular mucosal thickening. Mastoid air cells: Mastoid air cells demonstrate no significantopacification. Bones/joints: Calvarium demonstrates no acute abnormality. Chronicappearing nasal bone fracture deformity. Bones are demineralized within portions.Chronic right medial orbital wall fracture with herniation of fat and portionmedial rectus musculature into associated defect. Visualized orbits otherwise unremarkable. Soft tissues: Extracranial soft tissues unremarkable. Vasculature: Suggestion of hemoconcentration. IMPRESSION IMPRESSION: 1. No definite acute intracranial abnormality. 2. No hemorrhage, mass lesion, acute infarction. 3. Chronic findings as above. 4. Additional findings, as described above. THIS DOCUMENT HAS BEEN ELECTRONICALLY SIGNED BY MAXI ELAM MD Bakari Aviles MD RAD CT * (ABNORMAL) RESPIRATORY PATHOGEN PANEL, PCR (01/31/2023 7:59 AM EST) Adenovirus by PCR Negative Negative 023 9:01 AM EST LABORATORY [facility] Coronavirus 229E by PCR Negative Negative 01/31/2023 9:01 AM EST LABORATORY [facility] Coronavirus HKU1 by PCR Negative Negative 01/31/2023 9:01 AM EST LABORATORY [facility] Coronavirus NL63 by PCR Negative Negative 01/31/2023 9:01 AM EST LABORATORY [facility] Coronavirus OC43 by PCR Negative Negative 01/31/2023 9:01 AM EST LABORATORY [facility] Coronavirus SARS-CoV-2 by PCR Negative Negative 01/31/2023 9:01 AM EST LABORATORY [facility] Human Metapneumovirus by PCR Negative Negative 01/31/2023 9:01 AM EST LABORATORY [facility] Rhinovirus/Enterov irus by PCR Positive(A) Negative 01/31/2023 9:01 AM EST LABORATORY [facility] Comment: Rhinovirus/Enterovirus detected by PCR (amplified probe). Influenza A Virus by PCR Negative Negative 01/31/2023 9:01 AM EST LABORATORY [facility] Influenza B Virus by PCR Negative Negative 01/31/2023 9:01 AM EST LABORATORY [facility] Parainfluenza Virus 1 by PCR Negative Negative 01/31/2023 9:01 AM EST LABORATORY [facility] Parainfluenza Virus 2 by PCR Negative Negative 01/31/2023 9:01 AM EST LABORATORY [facility] Parainfluenza Virus 3 by PCR Negative Negative 01/31/2023 9:01 AM EST LABORATORY [facility] Parainfluenza Virus 4 by PCR Negative Negative 01/31/2023 9:01 AM EST LABORATORY [facility] Respiratory Syncytial Virus by PCR Negative Negative 01/31/2023 9:01 AM EST LABORATORY [facility] Bordetella pertussis by PCR Negative Negative 01/31/2023 9:01 AM EST LABORATORY [facility] Chlamydia pneumoniae by PCR Negative Negative 01/31/2023 9:01 AM EST LABORATORY [facility] Mycoplasma pneumoniae by PCR Negative Negative 01/31/2023 9:01 AM EST LABORATORY [facility] Bordetella parapertussis by PCR Negative Negative 01/31/2023 9:01 AM EST LABORATORY [facility] Comment: The primers that detect Rhinovirus may cross react with some Enterorviruses. The validation of bronchial specimens, tracheal aspirates, and throats for this assay was developed and performance characteristics determined by [employer]. The validation of alternate specimen types has not been cleared or approved by the U.S. Food and Drug Administration (FDA). It has been determined that such clearance or approval is not necessary. Upper Respiratory Mid-turbinate nasal swab / Unknown Non-blood Collection / Unknown 01/31/2023 7:59 AM EST 01/31/2023 8:08 AM EST Bakari Aviles MD LAB MICRO - GENE RAL [place] [address] * XR CHEST 1 VIEW (01/31/2023 7:58 AM EST) Anatomical Region Laterality Modality Chest Digital Radiogra phy 01/31/2023 7:47 AM EST Impressions 01/31/2023 8:17 AM EST IMPRESSION: 1. Somewhat patchy bibasilar opacification. Considerations include widespread infection or aspiration, edema, among additional possibilities. Superimposed reactive airways disease and/or viral infection could be considered. Please correlate clinically. 2. Additional findings, as described above. THIS DOCUMENT HAS BEEN ELECTRONICALLY SIGNED BY MAXI ELAM MD Narrative 01/31/2023 8:17 AM EST PROCEDURE INFORMATION: Exam: XR Chest Exam date and time: 01/31/2023 7:47 AM Age: 38 years old Clinical indication: Other: Seizure; Fatigue; Additional info: Sz fatigue TECHNIQUE: Imaging protocol: Radiologic exam of the chest. Views: 1 view. COMPARISON: DX XR CHEST 1 VIEW 12/27/2022 12:22 PM FINDINGS: Limitations: Overlying material slightly limits evaluation. Patient rotated. Lungs: Lung volumes mildly hyperinflated. Mild to moderate bronchial wall thickening. Somewhat patchy bibasilar opacification. Redemonstration some areas of scarring. Pleural spaces: No definite pleural effusion. No definite pneumothorax. Heart/Mediastinum: Heart size similar, not enlarged. Mediastinal contour similar, unremarkable. Bones/joints: No definite acute bony abnormality. Soft tissues: No definite acute soft tissue abnormality. Procedure Note Maxi Elam MD - 01/31/2023 PROCEDURE INFORMATION: Exam: XR Chest Exam date and time: 01/31/2023 7:47 AM Age: 38 years old Clinical indication: Other: Seizure; Fatigue; Additional info: Sz fatigue TECHNIQUE: Imaging protocol: Radiologic exam of the chest. Views: 1 view. COMPARISON: DX XR CHEST 1 VIEW 12/27/2022 12:22 PM FINDINGS: Limitations: Overlying material slightly limits evaluation. Patientrotated. Lungs: Lung volumes mildly hyperinflated. Mild to moderate bronchial wall thickening. Somewhat patchy bibasilar opacification. Redemonstration someareas of scarring. Pleural spaces: No definite pleural effusion. No definite pneumothorax. Heart/Mediastinum: Heart size similar, not enlarged. Mediastinal contour similar, unremarkable. Bones/joints: No definite acute bony abnormality. Soft tissues: No definite acute soft tissue abnormality. IMPRESSION IMPRESSION: 1. Somewhat patchy bibasilar opacification. Considerations includewidespread infection or aspiration, edema, among additional possibilities.Superimposed reactive airways disease and/or viral infection could be considered.Please correlate clinically. 2. Additional findings, as described above. THIS DOCUMENT HAS BEEN ELECTRONICALLY SIGNED BY MAXI ELAM MD Bakari Aviles MD RADIOLOGY (RAD G ENERAL) * EKG (01/31/2023 7:50 AM EST) 01/31/2023 7:50 AM EST Narrative Procedure Note Kalpesh Rich, DO - 01/31/2023 7:50 AM EST REASON FOR STUDY: ABD PAIN CONCLUSIONS: Normal sinus rhythm Possible Left atrial enlargement Rightward axis Nonspecific ST abnormality Abnormal ECG When compared with ECG of 27-DEC-2022 12:28, No significant change was found Ventricular Rate: 95 Atrial Rate: 95 MA Interval: 124 QRS Duration: 80 QT/QTc: 348/437 ms P-R-T Cary: 82 : 98 : 81 degrees Bakari Aviles MD EKG [facility] * CK (01/31/2023 7:47 AM EST) CK 89 39 - 308 U/L 01/31/2023 9:43 AM EST LABORATORY [facility] Blood Venous blood specimen / Unknown Venipuncture / Unknown 01/31/2023 7:47 AM EST 01/31/2023 7:54 AM EST Bakari Aviles MD LAB BLOOD ORDERA BLES LABORATORY [facility] [address] [place] [address] * (ABNORMAL) DIFFERENTIAL, AUTOMATED (01/31/2023 7:47 AM EST) WBC 6.13 4.00 - 10.80 K/uL 01/31/2023 7:58 AM EST LABORATORY [facility] Neutrophils % 76.4(H) 40.0 - 75.0 % 01/31/2023 7:58 AM EST LAB[facility]ATORY [facility] Lymphocytes % 19.1 18.0 - 42.0 % 01/31/2023 7:58 AM EST LAB[facility]ATORY [facility] Monocytes % 3.6 1.0 - 11.0 % 01/31/2023 7:58 AM EST LAB[facility]ATORY [facility] Eosinophils % 0.3 0.0 - 6.0 % 01/31/2023 7:58 AM EST LAB[facility]ORY [facility] Basophils % 0.3 0.0 - 2.0 % 01/31/2023 7:58 AM EST LAB[facility]ATORY [facility] Immature Granulocytes % 0.3 0.0 - 2.0 % 01/31/2023 7:58 AM EST LAB[facility]ORY [facility] Absolute Neutrophils 4.68 1.80 - 7.70 K/uL 01/31/2023 7:58 AM EST LAB[facility]ATORY [facility] Absolute Lymphocytes 1.17 1.00 - 4.80 K/ul 01/31/2023 7:58 AM EST LAB[facility]ATORY [facility] Absolute Monocytes 0.22 0.00 - 1.10 K/uL 01/31/2023 7:58 AM EST LAB[facility]ATORY [facility] Absolute Eosinophils 0.02 0.00 - 0.70 K/uL 01/31/2023 7:58 AM EST LAB[facility]ORY [facility] Absolute Basophils 0.02 0.00 - 0.20 K/uL 01/31/2023 7:58 AM EST LAB[facility]ORY [facility] Absolute Immature Granulocytes 0.02 0.00 - 0.20 K/uL 01/31/2023 7:58 AM EST LAB[facility] Blood Venous blood specimen / Unknown Venipuncture / Unknown 01/31/2023 7:47 AM EST 01/31/2023 7:55 AM EST Bakari Aviles MD LAB BLOOD ORDERA BLES Performing Organization Address City/State/[facility] Co de Phone Number LABORATORY [facility] [address] [place] [address] * (ABNORMAL) CBC (01/31/2023 7:47 AM EST) Pathologist [facility] WBC 6.13 4.00 - 10.80 K/uL 01/31/2023 7:58 AM EST LABORATORY GL RBC 3.37 4.50 - 5.25 M/uL 01/31/2023 7:58 AM EST LABORATORY GL HGB 10.8(L) 14.0 - 16.8 g/dL 01/31/2023 7:58 AM EST LABORATORY GL HCT 30.8(L) 40.0 - 48.4 % 01/31/2023 7:58 AM EST LABORATORY GL MCV 91.4 82.0 - 99.5 fL 01/31/2023 7:58 AM EST LABORATORY GL MCH 32.0 27.0 - 34.0 pg 01/31/2023 7:58 AM EST LABORATORY GL MCHC 35.1 32.0 - 36.0 g/dL 01/31/2023 7:58 AM EST LABORATORY GL RDW 13.5 11.5 - 15.5 % 01/31/2023 7:58 AM EST LABORATORY GL PLT 278 140 - 400 K/uL 01/31/2023 7:58 AM EST LABORATORY GL MPV 9.3 6.6 - 11.1 fL 01/31/2023 7:58 AM EST LABORATORY GL nRBCs 0 <=0 /100 WBCs 01/31/2023 7:58 AM EST LABORATORY GL Blood Venous blood specimen / Unknown Venipuncture / Unknown 01/31/2023 7:47 AM EST 01/31/2023 7:55 AM EST Bakari Aviles MD LAB BLOOD ORDERA BLES Performing Organization Address City/[facility] de Phone Number LABORATORY [address] [phone] * EXTRA HOANG TOP (01/31/2023 7:47 AM EST) Blood Venous blood specimen / Unknown Venipuncture / Unknown 01/31/2023 7:47 AM EST 01/31/2023 7:55 AM EST Bakari Aviles MD LAB BLOOD ORDERA BLES Performing Organization Address [facility] de Phone Number LABORATORY [address] [phone] * (ABNORMAL) LACTATE (01/31/2023 7:47 AM EST) Lactate 2.3(H) 0.4 - 2.0 mmol/L 01/31/2023 8:08 AM EST LABORATORY [facility] Blood Venous blood specimen / Unknown Venipuncture / Unknown 01/31/2023 7:47 AM EST 01/31/2023 7:55 AM EST Bakari Aviles MD LAB BLOOD ORDERA BLES Performing Organization Address [facility] de Phone Number LABORATORY [address] [address] * (ABNORMAL) BLOOD GAS, VENOUS (01/31/2023 7:47 AM EST) Temperature 37.0 C 01/31/2023 7:54 AM EST LABORATORY [facility] pH, Venous 7.219(L) 7.320 - 7.430 units 01/31/2023 7:54 AM EST LABORATORY [facility] pCO2, Venous 58.4 40.0 - 60.0 mmHg 01/31/2023 7:54 AM EST LABORATORY [facility] pO2, Venous 24.4(L) 25.0 - 50.0 mmHg 01/31/2023 7:54 AM EST LABORATORY [facility] Base Excess, Venous -4.8(L) -2.0 - 2.0 mmol/L 01/31/2023 7:54 AM EST LABORATORY [facility] Hemoglobin, Whole Blood 10.8(L) 14.0 - 16.8 g/dL 01/31/2023 7:54 AM EST LAB[facility]ATORY [facility] Oxyhemoglobin, Venous 35.9(L) 40.0 - 85.0 % total Hgb 01/31/2023 7:54 AM EST LABORATORY [facility] Carboxyhemoglobi n, Whole Blood 1.5 <=1.5 % total Hgb 01/31/2023 7:54 AM EST LABORATORY [facility] Comment:Smokers: 0-9.0 % Methemoglobin, Whole Blood 0.8 <=1.5 % total Hgb 01/31/2023 7:54 AM EST LABORATORY [facility] Reduced Hemoglobin, Venous 61.8 % total Hgb 01/31/2023 7:54 AM EST LABORATORY [facility] O2 Content, Venous 5.4(L) 7.0 - 18.0 %vol 01/31/2023 7:54 AM EST LABORATORY [facility] Bicarbonate, Whole Blood 23.0 23.0 - 31.0 mmol/L 01/31/2023 7:54 AM EST LAB[facility]ATORY [facility] Blood Venous blood specimen / Unknown Venipuncture / Unknown 01/31/2023 7:47 AM EST 01/31/2023 7:51 AM EST Bakari Aviles MD LAB BLOOD ORDERA BLES Performing Organization Address City/[facility]/ZIP Co de Phone Number LABORATORY [address] [address] * (ABNORMAL) TROPONIN T, HIGH SENSITIVITY (01/31/2023 7:47 AM EST) Troponin T, High Sensitivity 29(H) <=22 ng/L 01/31/2023 8:12 AM EST LABORATORY GL Blood Venous blood specimen / Unknown Venipuncture / Unknown 01/31/2023 7:47 AM EST 01/31/2023 7:55 AM EST Bakari Aviles MD LAB BLOOD ORDERA BLES Performing Organization Address City/[facility]/ZIP Co de Phone Number LABORATORY [address] [address] * LIPASE (01/31/2023 7:47 AM EST) Lipase 42 13 - 60 U/L 01/31/2023 8:28 AM EST LABORATORY GL Blood Venous blood specimen / Unknown Venipuncture / Unknown 01/31/2023 7:47 AM EST 01/31/2023 7:54 AM EST Bakari Aviles MD LAB BLOOD ORDERA BLES LABORATORY [address] [place] [address] * (ABNORMAL) COMPREHENSIVE METABOLIC PANEL (01/31/2023 7:47 AM EST) BUN 32(H) 6 - 20 mg/dL 01/31/2023 8:28 AM EST LABORATORY GL Creatinine 1.4(H) 0.6 - 1.2 mg/dL 01/31/2023 8:28 AM EST LABORATORY GL Estimated Glomerular Filtration Rate 67 >=60 mL/min 01/31/2023 8:28 AM EST LABORATORY [facility] Comment:eGFR is calculated b ased on the CKD-EPI 2020 equation Sodium 126(L) 135 - 146 mmol/L 01/31/2023 8:28 AM EST LABORATORY [facility] Potassium 4.5 3.5 - 5.1 mmol/L 01/31/2023 8:28 AM EST LAB[facility]ATORY [facility] Chloride 92(L) 98 - 107 mmol/L 01/31/2023 8:28 AM EST LAB[facility]ATORY [facility] CO2 21(L) 22 - 32 mmol/L 01/31/2023 8:28 AM EST LAB[facility]ATORY [facility] Anion Gap 13 7 - 15 mmol/L 01/31/2023 8:28 AM EST LAB[facility]ATORY [facility] Glucose 314(H) 70 - 120 mg/dL 01/31/2023 8:28 AM EST LAB[facility]ATORY [facility] Albumin 4.1 3.8 - 5.0 g/dL 01/31/2023 8:28 AM EST LAB[facility]ATORY [facility] AST 109(H) 10 - 50 U/L 01/31/2023 8:28 AM EST LAB[facility]ATORY [facility] Alkaline Phosphatase 131(H) 35 - 130 U/L 01/31/2023 8:28 AM EST LABORATORY GL Bilirubin, Total 0.2 <=1.2 mg/dL 01/31/2023 8:28 AM EST LABORATORY [facility] Calcium 9.7 8.4 - 10.2 mg/dL 01/31/2023 8:28 AM EST LAB[facility]ATORY [facility] Protein 7.1 6.0 - 8.3 g/dL 01/31/2023 8:28 AM EST LAB[facility]ATORY [facility] ALT 118(H) 10 - 50 U/L 01/31/2023 8:28 AM EST LABORATORY GL Blood Venous blood specimen / Unknown Venipuncture / Unknown 01/31/2023 7:47 AM EST 01/31/2023 7:54 AM EST Bakari Aviles MD LAB BLOOD ORDERA BLES Performing Organization Address City/[facility] Co de Phone Number LABORATORY [address] [address] * (ABNORMAL) GLUCOSE METER, POINT OF CARE (01/31/2023 7:35 AM EST) [facility] Signature Glucose Meter 297(H) 70 - 120 mg/dL 01/31/2023 7:37 AM EST [facility] Blood Whole blood specimen / Unknown 01/31/2023 7:35 AM EST 01/31/2023 7:37 AM EST Bakari Aviles MD LAB POINT OF CAR E TEST DOCKED DEVICE UNSOLICITED RESULTS Performing Organization Address City/[facility] Co de Phone Number [facility] [address] [place] [phone] documented in this encounter Visit Diagnoses Diagnosis Rhinovirus- Primary Rhinovirus infection in conditions classified elsewhere and of unspecified site documented in this encounter Administered Medications Inactive Administered Medications - up to 3 most recent administrations Medication Order MAR Action Action Date Dose Rate Site methADONE CONCentrated 10 mg/mL oral conc 107 mg 107 mg, Oral, ONCE, On Sun01/31/23 at 1345, For 1 dose, Note Concentration! Shake Well! Given 01/31/2023 1:16 PM EST 107 mg NSS 0.9% 1,000 mL bolus infusion Intravenous, at 1,000 mL/hr Administer over 60 Minutes, Wide open, This infusion may be completed in less than 1 hour, since it will be a wide open rate, ONCE, 1 dose, On Sun01/31/23 at 0830 New Bag 01/31/2023 7:58 AM EST 1,000 mL 1000 mL/hr NSS 0.9% 1,000 mL bolus infusion Intravenous, at 1,000 mL/hr Administer over 60 Minutes, Wide open, This infusion may be completed in less than 1 hour, since it will be a wide open rate, ONCE, 1 dose, On Sun01/31/23 at 0900 New Bag 01/31/2023 8:47 AM EST 1,000 mL 1000 mL/hr documented in this encounter Active and Recently Administered Medications Times are shown in EST. Scheduled Medication Order 01/29/2023 01/30/2023 01/31/2023 albuterol-ipratropium (Duoneb) inhalation solution 3 mL 3 mL, Nebulizer, Q20 MINUTES, First dose on Sun01/31/23 at 1215, Last dose on Sun01/31/23 at 1235, For 2 doses, 3 mL = 0.5 mg ipratropium/ 2.5 mg albuterol 1215 (Not Given - Pr ovider: Rianna Love, [employer] - Reason: Other-Notify Provider - Comment: pt refused)1235 (Not Given - Provider: Rianna Love, [employer] - Reason: Other-Notify Provider - Comment: pt refused) methADONE CONCentrated 10 mg/mL oral conc 107 mg (COMPLETED) 107 mg, Oral, ONCE, On Sun01/31/23 at 1345, For 1 dose, Note Concentration! Shake Well! 1316 (Given - Provid er: Mindy Trinh RN) NSS 0.9% 1,000 mL bolus infusion (COMPLETED) Intravenous, at 1,000 mL/hr Administer over 60 Minutes, Wide open, This infusion may be completed in less than 1 hour, since it will be a wide open rate, ONCE, 1 dose, On Sun01/31/23 at 0830 0758 (New Bag - Prov ider: Bean Baxter RN)0857 (Stopped - Provider: Bean Baxter RN) NSS 0.9% 1,000 mL bolus infusion (COMPLETED) Intravenous, at 1,000 mL/hr Administer over 60 Minutes, Wide open, This infusion may be completed in less than 1 hour, since it will be a wide open rate, ONCE, 1 dose, On Sun01/31/23 at 0900 0847 (New Bag - Prov ider: Bean Baxter, DAVION)0948 (Stopped - Provider: Bean Baxter RN) documented in this encounter Additional Health Concerns Infection Onset Date Last Indicated Resolved Time Respiratory Rule-Out 01/31/2023 01/31/2023 023 9:01 AM EST COVID-19 Rule-Out 01/31/2023 01/31/2023 01/31/2023 9:01 AM EST Enterovirus (resp)/Rhinovirus 01/31/2023 01/31/2023 documented as of [...] the patient have Health Care Power of Director Global Development? No Full Code 12/25/2021 1:35 PM 01/06/2022 6:52 PM This order reflects the patients wishes and were consensually agreed upon. Question Answer Comments Discussion of Advance Directives occurred with: Family Does the patient have a Living Will? No Does the patient have Health Care Power of Director Global Development? 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
--- OUTSIDE RECORDS SUMMARY | 2023-04-19 19:48 | External Medical Summary | Summary of Care ---
Author Name Unknown Organization [facility] Address [address] [place] [address] Phone [phone] Care Team Providers Care Vocational Training Director Name Role Phone Av Graves MD Primary Care Provider [phone] Encounter Details Date Type Department Care Team (Late st Contact Info) Description 01/18/2023 Telephone Orthopaedics, [place] [place] [address] [place], [place] [phone] Services, Scheduling [address] [place] [address] Allergies No known active allergiesdocumented as of this encounter (statuses as of 01/23/2023) Medications Medication Sig Dispensed Refills Start Date End Date Status Methadone HCl 10 MG/ML Oral Concentrate Take 10.7 mL by mouth in the morning. 0 11/01/2021 Active OneTouch Verio w/Device KitIndications:Type 1 diabetes mellitus with hemoglobin A1c goal of less than 8.0% ([facility]) Use up to 4 times [...] Each 0 12/13/2022 Active OneTouch Delica Plus [id number] :Type 1 diabetes mellitus with hemoglobin A1c goal of less than 8.0% ([facility]) test blood sugars FOUR TIMES DAILY E10.9 100 Each 0 12/13/2022 Active OneTouch Verio In Vitro Strip (Glucose Blood)Indications:Ty pe 1 diabetes mellitus with hemoglobin A1c goal of less than 8.0% ([facility]) Use up to 4 times [...] Oral Tablet (SEROquel)Indication s:Bipolar 1 disorder, depressed ([facility]) Take 1 Tablet by mouth [...] as of this encounter (statuses as of 01/23/2023) Active Problems Problem Noted Date Diagnosed Date [...] as of this encounter (statuses as of 01/23/2023) Resolved Problems Problem Noted Date Diagnosed Date [...] as of this encounter (statuses as of 01/23/2023) Immunizations Name Administration Dates Next Due SEASONAL [...] encounter Miscellaneous Notes * Telephone Encounter - Stephanie Ortega RN - 01/23/2023 1:06 PM EST Will offer appt next week with Dr Parson at Stephanie Ortega RN [facility] Upper Extremity Nurse Coordinator * Telephone Encounter - Soni Cruz OSA - 01/18/2023 1:49 PM EDT 7A calling about an appointment for patients hand possible amputation, patient to be discharged this afternoon . Patient needing to see someone for this however they need to be able to use [employer] for transportationto visit. Please advise, Thank you 7A number is [phone] documented in this encounter Plan of Treatment Upcoming Encounters Date Type Department Care Team (Late st Contact Info) Description 01/26/2023 11:00 AM EST Office Visit [facility] [address] [phone] Av Graves MD [address] [address] Health Maintenance Due Date Last Done Comments DISCUSS TOBACCO CESSATION (REFER TO SMARTSET #[id number]) 1985 Hepatitis B (1 of 3 - [...] the patient have Health Care Power of Ctrs? No Full Code 12/25/2021 1:35 PM 01/06/2022 6:52 PM This order reflects the patients wishes and were consensually agreed upon. Question Answer Comments Discussion of Advance Directives occurred with: Family Does the patient have a Living Will? No Does the patient have Health Care Power of Ctrs? No Care Teams Vocational Training Director Relationship Specialty Start Date End Date Av Graves MD [address] [address] PCP - General Family Medicine 06/27/22 documented as of this encounter
--- OUTSIDE RECORDS SUMMARY | 2023-04-19 19:48 | External Medical Summary ---
Author Name Unknown Address Unknown Organization K1F:[facility] - [address] [place] [address] Laboratory Report Ordering Provider Test Date Status BARON OTOOLE 01/31/2023 07:47:00 Final Observation Date Value Abnormality Reference (Units ) Status Troponin T 01/31/2023 07:47:00 29 Above high normal < =22 (ng/L) Final Performing Location [facility] - [address] [place] [address]
--- OUTSIDE RECORDS SUMMARY | 2023-04-19 19:48 | External Medical Summary ---
Author Name Unknown Address Unknown Organization K1F:[facility] - [address] [place] [address] [address] [place] [address] Laboratory Report Ordering Provider Test Date Status BINH OTOOLEMAURI 01/31/2023 07:47:00 Final Observation Date Value Abnormality Reference (Units ) Status WBC, Total 01/31/2023 07:47:00 6.13 4.00-10.80 (K/uL) Final RBC 01/31/2023 07:47:00 3.37 4.50-5.25 (M/uL) Final Hemoglobin 01/31/2023 07:47:00 10.8 Below low normal 14.0-16.8 (g/dL) Final HCT 01/31/2023 07:47:00 30.8 Below low normal 40.0-48.4 (%) Final MCV 01/31/2023 07:47:00 91.4 82.0-99.5 (fL) Final MCH 01/31/2023 07:47:00 32.0 27.0-34.0 (pg) Final MCHC 01/31/2023 07:47:00 35.1 32.0-36.0 (g/dL) Final RDW 01/31/2023 07:47:00 13.5 11.5-15.5 (%) Final Platelets 01/31/2023 07:47:00 278 140-400 (K/uL) Final MPV 01/31/2023 07:47:00 9.3 6.6-11.1 (fL) Final Nucleated erythrocytes/100 leukocytes [Ratio] in Blood by Automated count 01/31/2023 07:47:00 0 <=0 (/100 WBCs) Final Performing Location [facility] - [address] [place] [address]
--- OUTSIDE RECORDS SUMMARY | 2023-04-19 19:48 | External Medical Summary | Summary of Care ---
Author Name Unknown Organization [facility] Address [address] [place] [address] Phone [phone] Care Team Providers Care Utility Porter Name Role Phone Av Graves MD Primary Care Provider [phone] Encounter Details Date Type Department Care Team (Late st Contact Info) Description 01/18/2023 Telephone Orthopaedics, [facility], [place] [address] [place], [place] [phone] Services, Scheduling [address] [place] [address] Allergies No known active allergiesdocumented as of this encounter (statuses as of 01/23/2023) Medications Medication Sig Dispensed Refills Start Date End Date Status Methadone HCl 10 MG/ML Oral Concentrate Take 10.7 mL by mouth in the morning. 0 11/01/2021 Active OneTouch Verio w/Device KitIndications:Type 1 diabetes mellitus with hemoglobin A1c goal of less than 8.0% ([facility]) Use up to 4 times [...] Each 0 12/13/2022 Active OneTouch Delica Plus [id number] :Type 1 diabetes mellitus with hemoglobin A1c goal of less than 8.0% ([facility]) test blood sugars FOUR TIMES DAILY E10.9 100 Each 0 12/13/2022 Active OneTouch Verio In Vitro Strip (Glucose Blood)Indications:Ty pe 1 diabetes mellitus with hemoglobin A1c goal of less than 8.0% ([facility]) Use up to 4 times [...] Oral Tablet (SEROquel)Indication s:Bipolar 1 disorder, depressed ([facility]) Take 1 Tablet by mouth [...] encounter Miscellaneous Notes * Telephone Encounter - Soni Cruz OSA - 01/18/2023 1:49 PM EDT 7A calling about an appointment for patients hand possible amputation, patient to be discharged this afternoon . Patient needing to see someone for this however they need to be able to use [employer] for transportationto visit. Please advise, Thank you 7A number is [phone] documented in this encounter Plan of Treatment Upcoming Encounters Date Type Department Care Team (Late st Contact Info) Description 01/26/2023 11:00 AM EST Office Visit [facility] [place] [address] [phone] Av Graves MD [address] [address] Health Maintenance Due Date Last Done Comments DISCUSS TOBACCO CESSATION (REFER TO SMARTSET #[id number]) 1985 Hepatitis B (1 of 3 - [...] the patient have Health Care Power of Brick Picker? No Full Code 12/25/2021 1:35 PM 01/06/2022 6:52 PM This order reflects the patients wishes and were consensually agreed upon. Question Answer Comments Discussion of Advance Directives occurred with: Family Does the patient have a Living Will? No Does the patient have Health Care Power of Brick Picker? No Care Teams Utility Porter Relationship Specialty Start Date End Date Av Graves MD [address] [address] PCP - General Family Medicine 06/27/22 documented as of this encounter
--- OUTSIDE RECORDS SUMMARY | 2023-04-19 19:48 | External Medical Summary ---
Author Name Unknown Address Unknown Organization K1F:[facility] [address] [place] [address] Laboratory Report Ordering Provider Test Date Status BARON OTOOLE 01/31/2023 07:59:45 Final ADMITTED patient Observation Date Value Abnormality Reference (Units ) Status Adenovirus DNA [Presence] in Nasopharynx by JAVED with non-probe detection 01/31/2023 07:59:45 Negative Negative Final Human coronavirus 229E RNA [Presence] in Nasopharynx by JAVED with non-probe detection 01/31/2023 07:59:45 Negative Negative Final Human coronavirus HKU1 RNA [Presence] in Nasopharynx by JAVED with non-probe detection 01/31/2023 07:59:45 Negative Negative Final Human coronavirus NL63 RNA [Presence] in Nasopharynx by JAVED with non-probe detection 01/31/2023 07:59:45 Negative Negative Final Human coronavirus OC43 RNA [Presence] in Nasopharynx by JAVED with non-probe detection 01/31/2023 07:59:45 Negative Negative Final SARS-CoV-2 (COVID-19) RNA [Presence] in Nasopharynx by JAVED with non-probe detection 01/31/2023 07:59:45 Negative Negative Final Human metapneumovirus RNA [Presence] in Nasopharynx by JAVED with non-probe detection 01/31/2023 07:59:45 Negative Negative Final Rhinovirus+Enterovirus RNA [Presence] in Nasopharynx by JAVED with non-probe detection 01/31/2023 07:59:45 Positive Abnormal Negative Final Rhinovirus/Enterovirus detec uriel by PCR (amplified probe).

Influenza virus A RNA [Prese nce] in Nasopharynx by JAVED with non-probe detection 01/31/2023 07:59:45 Negative Negative Final Influenza virus B RNA [Prese nce] in Nasopharynx by JAVED with non-probe detection 01/31/2023 07:59:45 Negative Negative Final Parainfluenza virus 1 RNA [P resence] in Nasopharynx by JAVED with non-probe detection 01/31/2023 07:59:45 Negative Negative Final Parainfluenza virus 2 RNA [P resence] in Nasopharynx by JAVED with non-probe detection 01/31/2023 07:59:45 Negative Negative Final Parainfluenza virus 3 RNA [P resence] in Nasopharynx by JAVED with non-probe detection 01/31/2023 07:59:45 Negative Negative Final Parainfluenza virus 4 RNA [P resence] in Nasopharynx by JAVED with non-probe detection 01/31/2023 07:59:45 Negative Negative Final Respiratory syncytial virus RNA [Presence] in Nasopharynx by JAVED with non-probe detection 01/31/2023 07:59:45 Negative Negative F inal Bordetella pertussis.pertuss is toxin promoter region [Presence] in Nasopharynx by JAVED with non-probe detection 01/31/2023 07:59:45 Negative Negative Final Chlamydophila pneumoniae DNA [Presence] in Nasopharynx by JAVED with non-probe detection 01/31/2023 07:59:45 Negative Negative Final Mycoplasma pneumoniae DNA [P resence] in Nasopharynx by JAVED with non-probe detection 01/31/2023 07:59:45 Negative Negative Final Bordetella parapertussis IS1 001 DNA [Presence] in Nasopharynx by JAVED with non-probe detection 01/31/2023 07:59:45 Negative Negative F inal
The primers that detect Rhinovirus may cross react with some Enterorviruses. The validation of bronchial specimens, tracheal aspirates, and throats for this assay was developed and performance characteristics determined by [employer]. The validation of alternate specimen types has not been cleared or approved by the U.S. Food and Drug Administration (FDA). It has been determined that such clearance or approval is not necessary. [facility] [address] [place] [address]
--- OUTSIDE RECORDS SUMMARY | 2023-04-19 19:48 | External Medical Summary | Summary of Care ---
Author Name Unknown Organization [facility] Address [address] [place] [address] Phone [phone] Care Team Providers Care Sail Repairer Name Role Phone Av Graves MD Primary Care Provider [phone] Encounter Details Date Type Department Care Team (Late st Contact Info) Description 02/05/2023 Telephone [facility] [address] [place] [address] [place] Mccormick CRNP [address] [place] [address] Allergies No known active allergiesdocumented as of [...] Each 0 12/13/2022 Active OneTouch Delica Plus [id number] s:Type 1 diabetes mellitus with hemoglobin A1c goal of less than 8.0% ([facility]) test blood sugars FOUR TIMES DAILY E10.9 100 Each 0 12/13/2022 Active OneTouch Verio In Vitro Strip (Glucose Blood)Indications:T ype 1 diabetes mellitus with hemoglobin A1c goal of less than 8.0% ([facility]) Use up to 4 times [...] encounter Miscellaneous Notes * Telephone Encounter - Vanesa Cronin OSA - 02/05/2023 1:07 PM EST Please assist with Neuro referral, unable to find any openings. Thank you! documented in this encounter Plan of Treatment Upcoming Encounters Date Type Department Care Team (Late st Contact Info) Description 04/16/2023 2:20 PM EST [facility] [place] [address] [phone] Av Graves MD [address] [phone] Health Maintenance Due Date Last Done Comments DISCUSS TOBACCO CESSATION (REFER TO SMARTSET #[id number]) 1985 Hepatitis B (1 of 3 - [...] the patient have Health Care Power of [employer] Make Up Helper? No Full Code 12/25/2021 1:35 PM 01/06/2022 6:52 PM This order reflects the patients wishes and were consensually agreed upon. Question Answer Comments Discussion of Advance Directives occurred with: Family Does the patient have a Living Will? No Does the patient have Health Care Power of [employer] Storage [employer] Make Up Helper? No Care Teams Sail Repairer Relationship Specialty Start Date End Date Av Graves MD [address] [address] PCP - General Family Medicine 06/27/22 documented as of this encounter
--- OUTSIDE RECORDS SUMMARY | 2023-04-19 19:48 | External Medical Summary | Summary of Care ---
Author Name Unknown Organization [facility] Address [address] [place] [address] Phone [phone] Care Team Providers Care Cnc Set Up Operator Name Role Phone Av Graves MD Primary Care Provider [phone] Reason for Referral * Evaluate & Treat - Unlimited Visits (Within 10 days (routine)) - Pending Review Specialty Diagnoses / Procedures Referred By Leticia nash Referred To Contact Neurology Diagnoses Seizure-like activity (HCC) [place] Mccormick CRNP [address] [place] [phone] Referral ID Status Reason Start Date Expiration Date Visits Requested Visits Authorized [id number] Pending Review Specialty Services Required [phone] Question Answer Referral Priority Within 10 days (routine) Where should this appointment be scheduled? [facility] This patient already has care established with Neurology. Do not place this order. Please use Ask A Doc to expedite care. Acknowledge [facility] NEUROLOGY REFERRAL QUESTIONS Seizure If this is for an initial diagnosis of a new seizure disorder, please place an order for an updated EEG Routine [[id number]] Acknowledge Reason for Visit * Reason Comments Emergency Department Follow-Up Encounter Details Date Type Department Care Team (Late st Contact Info) Description 02/05/2023 12:20 PM EST Office Visit [facility] [address] [facility] [place] [phone] [place] Mccormick CRNP [address] [place] [phone] Type 1 diabetes mellitus with hemoglobin A1c goal of less than 8.0% (HCC)*; Rhinovirus; Seizure-like activity (HCC); Bipolar 1 disorder, depressed (HCC); Wheezing; Tobacco use Allergies No known active allergiesdocumented as of this encounter (statuses as of 02/05/2023) Medications Medication Sig Dispensed Refills Start Date End Date Status Methadone HCl 10 MG/ML Oral Concentrate Take 10.7 mL by mouth in the morning. 0 11/01/2021 Active Diligent Board Member ServicesTouch Verio w/Device KitIndications:Ty pe 1 diabetes mellitus [...] PEN E10.9 100 Each 0 12/13/2022 Active Diligent Board Member ServicesTouch Delica Plus [id number] ons:Type 1 diabetes mellitus with hemoglobin A1c [...] Oral Tablet (SEROquel)Indicat ions:Bipolar 1 disorder, depressed (HCC) Take 1 Tablet by mouth at bedtime. 14 Tablet 0 02/05/2023 Active ProAir HFA 108 (90 Base) MCG/ACT Inhalation Aerosol Solution Inhale 2 Puffs by mouth every 4 hours as needed for Wheezing. 18 g 1 02/05/2023 Active ProAir HFA 108 (90 Base) MCG/ACT Inhalation Aerosol SolutionIndicatio ns:Pneumonia of both upper lobes due to infectious organism Inhale by mouth 2 Puffs every 4 hours as needed for Wheezing. 18 g 1 01/10/2022 3 Discontinue d(Refill) Amoxicillin-Pot Clavulanate 875-125 MG Oral Tablet (Augmentin) Take 1 Tablet by mouth in the morning and 1 Tablet before bedtime. 28 Tablet 0 01/18/2023 3 Discontinue d(End of Procedure) QUEtiapine Fumarate 200 MG Oral Tablet (SEROquel)Indicat ions:Bipolar 1 disorder, depressed (HCC) Take 1 Tablet by mouth at bedtime. 14 Tablet 0 01/18/2023 3 Discontinue d(Refill) Sulfamethoxazole- Trimethoprim 800-160 MG Oral Tablet (Bactrim DS) Take 1 Tablet by mouth in the morning and 1 Tablet before bedtime. 28 Tablet 0 01/18/2023 3 Discontinue d(Medicatio n List Clean Up) Culturelle Oral Capsule Take 1 Capsule by mouth at noon and 1 Capsule in the evening. 28 Capsule 0 01/18/2023 3 Discontinue d(End of Procedure) documented as of this encounter (statuses as [...] Day Cigarettes 0.5 7 Smokeless Tobacco: Never Tobacco Cessation:Ready to Q uit: Not Asked; Counseling Given: Not Answered Alcohol Use Standard Drinks/Week Comments No 0 [...] Sign Reading Time Taken Comments Blood Pressure - - Pulse - - Temperature 36.8 C (98.3 F) 02/05/2023 12:[address] Respiratory Rate - - Oxygen Saturation - - Inhaled Oxygen Concentration - - Weight 47.2 kg (104 lb) 02/05/2023 12:35 PM EST Height - - Body Mass Index 16.79 12/11/2022 8:50 PM EDT documented in this [...] Yes 12/27/2022 documented as of this encounter Patient Instructions * Patient Instructions* Binta Hoyt LPN - 02/05/2023 12:41 PM EST Images from the original note were not included. Dear Gil Irby, The care of your Diabetes is very important to us. A yearly diabetic eye exam is important to protect your vision. If youre getting an eye exam done outside of [facility] please tell your Eye Doctor to fax or mail us the results of your Diabetic Eye Exam at your next visit. Our Address and Fax Number are listed below to help. Thank you for helping us to improve your Diabetes Care Our Office Address and Fax Number: Av Graves MD [address] [phone] Diabetic Retinopathy: Evaluating Your Eyes Diabetic retinopathy is a condition that happens when diabetes damages blood vessels in the rear ofthe eye. It can lead to vision loss. To help catch it early, have a complete dilated eye exam at least once a year. During the exam, the eye healthcare provider will review your medical history, examine your eyes, and check your vision. Women who are and have pre-existing type 1 or type 2 diabetes have an increased risk of retinopathy. Women with diabetes should have an eye exam before or in the first trimester. They should continue to be monitored every trimester and for 1 year after delivery, depending on the severity of the retinopathy. The retina is the light-sensitive part of the eye that allows you to see. High blood sugar can damage blood vessels of the retina and cause them to leak or bleed. This damage can lead to abnormal blood vessel growth. This condition is called diabetic retinopathy. You may not have symptoms early in the disease. Later, there may be floaters, blurred vision, or poor night vision. There may also be partial or complete vision loss. Early cases of diabetic retinopathy can be treated by carefully controlling blood sugar, blood pressure, and cholesterol. Surgery or laser treatments may help restore lost vision. Laser surgery can shrink abnormal blood vessels or close ones that are leaking. Medicines injected in the eye can help decrease swelling of the retina. Home care Take all medicines, including insulin or oral diabetic medicine, exactly as prescribed. Follow the diet advised by your healthcare provider. If you have high cholesterol, follow a low-fat, low-cholesterol diet. Monitor blood sugars as advised. Try to achieve your ideal weight. If you smoke, quit smoking. Tobacco use worsens the effect of diabetes on your blood vessels. If you have high blood pressure, consider buying an automatic blood pressure machine. These are available at most pharmacies. Use this to monitor your blood pressure. Report your blood pressure readings to your healthcare provider. Exercise regularly. Follow-up care Follow up with your healthcare provider, or as advised. You must have a complete eye exam at least once a year, more often if needed. Untreated diabetic retinopathy can lead to complete loss of vision. Occupational therapists can help you adapt to any vision loss you have, including learning techniques to safely administer insulin. When to seek medical advice Call your healthcare provider right away if any of these occur. Increasing blurriness or any sudden changes in your vision Sudden flashes of light inside your eye New floaters (small dots or strings that seem to be moving across your field of vision) Eye pain, redness, or discharge from your eyelid New dark spots appearing in your field of vision Halos around lights Dimness of vision Partial or complete loss of vision Women with diabetes should have a complete eye exam before becoming , or as soon as possible when they find out they are . Retinopathy sometimes worsens during . Your eye exam Your eye healthcare provider uses an eye chart and other tools to check your vision. Then he or sheexamines your eyes for signs of disease. You are given eye drops to widen (dilate) your pupils. Youmay have one or more of the following tests: Tonometry to measure fluid pressure inside the eye. Slit lamp exam to allow the healthcare provider to view the structures of your eye. Ultrasound to create an image of the eye using sound waves. Ultrasound may be used if blood is found in the clear gel that fills the eye (vitreous). Ocular coherence tomography (OCT) to create an image of the retina using light waves. This shows ifthere is fluid leaking into certain parts of the eye. It can also measure the thickness of the retina. Fluorescein angiography This test may be done to check the health of the inside lining of the eye (retina). It also checks the tiny blood vessels (capillaries) that carry blood to the retina. During the test: Photographs are taken of the retina. A dye is then injected into the bloodstream through the arm or hand. The dye travels to the capillaries in the eye. More photographs are taken of the retina. The dye causes the capillaries to stand out on the photographs. You may feel brief nausea during the procedure. For a few hours after the test, your skin, eyes, and urine may appear yellow. Talk with your healthcare provider for more information about this test. Date Last Reviewed: 08/18/201519991332-1046 [employer]. [address] [place] [address]. All rights reserved. This information is not intended as a substitute for professional medical care. Always follow your healthcare professional's instructions. documented in this encounter Progress Notes * Binta Hoyt LPN - 02/05/2023 12:41 PM EST The importance of having a yearly diabetic eye exam has been discussed with patient. Order and/or Referral placed along with patient instructions. Provider made aware. Binta Hoyt LPN * [place] Mccormick CRNP - 02/05/2023 12:36 PM EST ER Follow up Family Medicine Visit CC: Chief Complaint Patient presents with Emergency Department Follow-Up History of Present Illness: Gil Irby is a 38 year old male presenting to ED with multiple complaints which included possible seizure like activity and hyperglycemia. He ran out of [employer] meds yesterday. In the last 2 days blood sugars have been 200s. Noted to be positive for rhinovirus Actively using methodone- seeing them weekly. He has been on methodone for the last 14-15 years. Hedid not miss any doses. Social History Socioeconomic History Marital status: Spouse name: Not on file Number of children: Not on file Years of education: Not on file Highest education level: Not on file Occupational History Not on file Tobacco Use Smoking status: Every Day Packs/day: 0.50 Years: 7.00 Additional pack years: 0.00 Total pack years: 3.50 Types: Cigarettes Smokeless tobacco: Never Vaping Use Vaping Use: Some days Substances: Nicotine, THC, Flavoring Devices: Disposable, Pre-filled or refillable cartridge Substance and Sexual Activity Alcohol use: No Drug use: Yes Types: Methamphetamines, Fentanyl Comment: periodically Sexual activity: Yes Other Topics Concern Not on file Social History Narrative Not on file Social Determinants of Health Financial Resource Strain: Not on file Food Insecurity: No Food Insecurity (12/28/2021) Hunger Vital Sign Worried About Running Out of Food in the Last Year: Never true Ran Out of Food in the Last Year: Never true Transportation Needs: Not on file Physical Activity: Not on file Stress: Not on file Social Connections: Not on file Intimate Partner Violence: Not on file Housing Stability: Not on file PMH: Past Medical History: Diagnosis Date ADHD Anxiety Bipolar disorder (HCC) Depression Diabetes mellitus (HCC) 2011 Hypothyroid Malnutrition of moderate degree (HCC) 12/02/2021 Protein-calorie malnutrition (HCC) 02/04/2021 Past Surgical History: Procedure Laterality Date NONE No outpatient medications have been marked as taking for the 02/05/23 encounter (Office Visit) [place] Wilkinson CRNP. Review of patient's allergies indicates: No Known Allergies Most Recent Immunizations Administered Date(s) Administered TDAP (age 10 and older)(Boostrix) 01/10/2022 TDAP (age 11 and older)(Adacel) 05/18/2011 Review of Systems: Review of Systems Constitutional: Positive for fatigue. Negative for chills, diaphoresis and fever. HENT: Positive for congestion, postnasal drip and rhinorrhea. Respiratory: Positive for cough and wheezing. Negative for shortness of breath. Cardiovascular: Negative for chest pain. Gastrointestinal: Negative for abdominal pain. Neurological: Positive for seizures. Negative for dizziness and headaches. Psychiatric/Behavioral: Feels stable Physical Exam: Temp 36.8 C (98.3 F) (Tympanic) | Wt 47.2 kg (104 lb) | BMI 16.79 kg/m | BSA 1.48 m Physical Exam HENT: Head: Normocephalic. Cardiovascular: Rate and Rhythm: Normal rate and regular rhythm. Pulmonary: Effort: Pulmonary effort is normal. Breath sounds: Decreased breath sounds, wheezing and rhonchi present. Neurological: Mental Status: He is alert and oriented to person, place, and time. Psychiatric: Attention and Perception: Attention normal. Mood and Affect: Mood normal. Speech: Speech normal. Behavior: Behavior normal. Behavior is cooperative. Thought Content: Thought content normal. Cognition and Memory: Cognition and memory normal. Judgment: Judgment normal. Assessment and Plan: 1. Type 1 diabetes mellitus with hemoglobin A1c goal of less than 8.0% (HCC) Blood sugars improved the last 2 days and in the 200s - [facility] DIAB[facility] 2. Rhinovirus Positive in ED Recommend supportive care 3. Seizure-like activity (HCC) No new episodes since ER visit - NEUROLOGY REFERRAL OP 4. Bipolar 1 disorder, depressed (HCC) Out of seroquel- refilled for short term supply until he can get back into psych this week per his report - QUEtiapine Fumarate 200 MG Oral Tablet (SEROquel); Take 1 Tablet by mouth at bedtime. Dispense: 14 Tablet; Refill: 0 5. Wheezing On exam Add albuterol hfa every 4 hours HOld on steroid given uncontrolled recent blood sugars 6. Tobacco use Still smoking I have advised the patient to call our office incase of any worsening or new symptoms. I spent a total of 20-29 minutes (exact time 25 mins) on the date of service in preparation, delivery, and documentation of the care provided to Gil Irby excluding any time spent in the performance of separately billed services. JUMANA Mena, HANNAH [facility] documented in this encounter Nursing Notes * Binta Hoyt LPN - 02/05/2023 12:39 PM EST Chief Complaint Patient presents with Emergency Department Follow-Up Pt was in [facility] ER 01/31. + for rhinovirus. States he is starting to fel better. Patient has been verbally educated on the need or importance of Diabetic Foot Exam and Immunizations: Flu, Pneumonia documented in this encounter Plan of Treatment Upcoming Encounters Date Type Department Care Team (Late st Contact Info) Description 04/16/2023 2:20 PM EST Office Visit [facility] [place] [address] [place] [phone] Av Graves MD [address] [place] [phone] Scheduled Referrals Name Type Priority Associated Diagnoses Orde r Schedule NEUROLOGY REFERRAL OP Referral Within 10 days (routine) Seizure-like activity (HCC) Ordered: 02/05/2023 Health Maintenance Due Date Last Done Comments DISCUSS TOBACCO CESSATION (REFER TO SMARTSET #5565) 1987 Hepatitis B (1 of 3 - [...] hemoglobin A1c goal of less than 8.0% (HCC)- Primary Rhinovirus Rhinovirus infection in conditions classified elsewhere and of unspecified site Seizure-like activity (HCC) Other convulsions Bipolar 1 disorder, depressed (HCC) Bipolar I disorder, most recent episode (or current) depressed, unspecified Wheezing Tobacco use Tobacco use disorder documented in this encounter Additional Health Concerns [...] the patient have Health Care Power of Controls Designer? No Full Code 12/25/2021 1:35 PM 01/06/2022 6:52 PM This order reflects the patients wishes and were consensually agreed upon. Question Answer Comments Discussion of Advance Directives occurred with: Family Does the patient have a Living Will? No Does the patient have Health Care Power of Controls Designer? No Care Teams Cnc Set Up Operator Relationship Specialty Start Date End Date Av Graves MD [address] [place] [phone] PCP - General Family Medicine 06/27/22 documented as of this encounter"
--- OUTSIDE RECORDS SUMMARY | 2023-04-19 19:48 | External Medical Summary ---
Author Name Unknown Address Unknown Organization K1F:[facility] - [address] [place] [address] Laboratory Report Ordering Provider Test Date Status BARON OTOOLE 01/31/2023 07:47:00 Final Observation Date Value Abnormality Reference (Units ) Status Lipase 01/31/2023 07:47:00 42 13-60 (U/L ) Final Performing Location [facility] - [address] [place] [address]
--- OUTSIDE RECORDS SUMMARY | 2023-04-19 19:48 | External Medical Summary ---
Author Name Unknown Address Unknown Organization K1F:[facility] - [address] [place] [address] Laboratory Report Ordering Provider Test Date Status BARON OTOOLE 01/31/2023 11:41:00 Final Observation Date Value Abnormality Reference (Units ) Status Lactic Acid 01/31/2023 11:41:00 1.0 0.4-2.0 (mmol/L) Final Performing Location [facility] - [address] [place] [address]
--- OUTSIDE RECORDS SUMMARY | 2023-04-19 19:48 | External Medical Summary ---
Author Name Unknown Address Unknown Organization K1F:[facility] - [address] [place] [address] Laboratory Report Ordering Provider Test Date Status BARON OTOOLE 01/31/2023 11:45:01 Final Observation Date Value Abnormality Reference (Units ) Status Color of Urine by Auto 01/31/2023 11:45:01 Yellow Light Yellow, Yellow, Dark Yellow Final Clarity, Urine 01/31/2023 11:45:01 Clear Clear Final Glucose [Mass/volume] in Urine by Automated test strip 01/31/2023 11:45:01 >=1000 Abnormal Negative (mg/dL) Final Bilirubin.total [Presence] in Urine by Automated test strip 01/31/2023 11:45:01 Negative Negative Final Ketones [Mass/volume] in Urine by Automated test strip 01/31/2023 11:45:01 Negative Negative (mg/dL) Final Specific gravity, Urine 01/31/2023 11:45:01 1.021 1.003-1.030 Final Hemoglobin [Presence] in Urine by Automated test strip 01/31/2023 11:45:01 Trace Abnormal Negative Final pH, Urine 01/31/2023 11:45:01 6.0 5.0-7.5 (Units) Final Protein [Mass/volume] in Urine by Automated test strip 01/31/2023 11:45:01 Negative Negative (mg/dL) Final Urobilinogen [Mass/volume] in Urine by Automated test strip 01/31/2023 11:45:01 0.2 0.2, 1.0 (mg/dL) Final Nitrite [Presence] in Urine by Automated test strip 01/31/2023 11:45:01 Negative Negative Final Leukocyte esterase [Presence] in Urine by Automated test strip 01/31/2023 11:45:01 Negative Negative Final RBC, Urine 01/31/2023 11:45:01 0-2 0-2 (/HPF) Final WBC, Urine 01/31/2023 11:45:01 0-2 0-2 (/HPF) Final Bacteria [#/area] in Urine sediment by Microscopy high power field 01/31/2023 11:45:01 26-50 Abnormal 0-25 (/HPF) Final Crystals.amorphous [#/area] in Urine sediment by Microscopy high power field 01/31/2023 11:45:01 Many Abnormal None (/HPF) Final Performing Location LAB[address]ATORY [address] [place] [address]
--- OUTSIDE RECORDS SUMMARY | 2023-04-19 19:48 | External Medical Summary | Summary of Care ---
Author Name Unknown Organization [facility] Address [address] [place] [address] Phone [phone] Care Team Providers Care Green Building Materials Designer Name Role Phone Av Graves MD Primary Care Provider [phone] Reason for Visit * Reason Onset Date Comments Scan To Read 02/05/2023 Encounter Details Date Type Department Care Team (Late st Contact Info) Description 02/05/2023 Telephone [facility] [address] [facility] [place] [address] Av Graves MD [address] [place] [address] Scan To Read Allergies No [...] Each 0 12/13/2022 Active OneTouch Delica Plus [id number] s:Type 1 diabetes mellitus with hemoglobin A1c goal of less than 8.0% ([facility]) test blood sugars FOUR TIMES DAILY E10.9 100 Each 0 12/13/2022 Active OneTouch Verio In Vitro Strip (Glucose Blood)Indications:T ype 1 diabetes mellitus with hemoglobin A1c goal of less than 8.0% ([facility]) Use up to 4 times a day [...] encounter Miscellaneous Notes * Telephone Encounter - Jimenez Mayorga MD - 02/05/2023 4:40 PM EST Retinal Scan Imaging Gil Irby [phone] Retinal Scan Interpretation: There is no retinopathy in both eyes Diabetes Retinal Imaging Care Plan: The retinal scan results are normal - I will forward this encounter to the Ophthalmology DM Letter Pool [[id number]], they will send a normal retinal scan letter to the patient, and the patient will be seen back for a yearly scan. Jimenez Mayorga MD 02/05/2023 4:40 PM * Telephone Encounter - Binta Hoyt LPN - 02/05/2023 1:28 PM EST A Diabetic Telemed Eye image was taken and requires your interpretation for HANNAH Ramsey. Please check your inbasket for image. Patient prefers to be seen at [facility] if a follow-up appointmentis needed. documented in this encounter Plan of Treatment Upcoming Encounters Date Type Department Care Team (Late st Contact Info) Description 04/16/2023 2:20 PM EST Office Visit [facility] [address] [facility] [place] [phone] Av Graves MD [address] [facility] [place] [address] Health Maintenance Due Date Last Done Comments DISCUSS TOBACCO CESSATION (REFER TO SMARTSET #[id number]) 1987 Hepatitis B (1 of 3 - [...] the patient have Health Care Power of Gate Shear Operator? No Full Code 12/25/2021 1:35 PM 01/06/2022 6:52 PM This order reflects the patients wishes and were consensually agreed upon. Question Answer Comments Discussion of Advance Directives occurred with: Family Does the patient have a Living Will? No Does the patient have Health Care Power of Gate Shear Operator? No Care Teams Green Building Materials Designer Relationship Specialty Start Date End Date Av Graves MD [address] [place] [address] PCP - General Family Medicine 06/27/22 documented as of this encounter
--- OUTSIDE RECORDS SUMMARY | 2023-04-19 19:48 | External Medical Summary ---
Author Name Unknown Address Unknown Organization : Laboratory Report Ordering Provider Test Date Status BARON OTOOLE 01/31/2023 07:35:42 Final Observation Date Value Abnormality Reference (Units ) Status Glucose Point of Care 01/31/2023 07:35:42 297 Above high normal 70-120 (mg/dL) Final Performing Location
--- OUTSIDE RECORDS SUMMARY | 2023-04-19 19:48 | External Medical Summary ---
Author Name Unknown Address Unknown Organization K1F:[facility] - [address] [place] [address] Laboratory Report Ordering Provider Test Date Status BARON OTOOLE 01/31/2023 07:47:00 Final Observation Date Value Abnormality Reference (Units ) Status CK 01/31/2023 07:47:00 89 39-308 (U/ L) Final Performing Location [facility] - [address] [place] [address]
--- OUTSIDE RECORDS SUMMARY | 2023-04-19 19:49 | External Medical Summary | Summary of Care ---
Author Name Unknown Organization [facility] Address [address] [place] [address] Phone [phone] Care Team Providers Care Heel Boom Operator Name Role Phone Av Graves MD Primary Care Provider [phone] Reason for Visit * Reason Onset Date Comments Hospital Follow-Up 01/19/2023 Encounter Details Date Type Department Care Team (Late st Contact Info) Description 01/19/2023 Telephone [facility] [address] [place] [address] Cornelia Cr, RN Hospital Follow-Up Allergies No known active allergiesdocumented as of this encounter (statuses as of 01/19/2023) Medications Medication Sig Dispensed Refills Start Date End Date Status Methadone HCl 10 MG/ML Oral Concentrate Take 10.7 mL by mouth in the morning. 0 11/01/2021 Active OneTouch Verio w/Device KitIndications:Type 1 diabetes mellitus with hemoglobin A1c goal of less than 8.0% ([facility]) Use up to 4 times a day [...] A1c goal of less than 8.0% ([facility]) USE THREE TIMES DAILY WITH HUMALOG KWIK PEN E10.9 100 Each 0 12/13/2022 Active OneTouch Delica Plus [id number] :Type 1 diabetes mellitus with hemoglobin A1c goal of less than 8.0% ([facility]) test blood sugars FOUR TIMES DAILY E10.9 100 Each 0 12/13/2022 Active OneTouch Verio In Vitro Strip (Glucose Blood)Indications:Ty pe 1 diabetes mellitus with hemoglobin A1c goal of less than 8.0% ([facility]) Use up to 4 times a day [...] Oral Tablet (SEROquel)Indication s:Bipolar 1 disorder, depressed ([facility]) Take 1 Tablet by mouth at bedtime. [...] as of this encounter (statuses as of 01/19/2023) Active Problems Problem Noted Date Diagnosed Date [...] as of this encounter (statuses as of 01/19/2023) Resolved Problems Problem Noted Date Diagnosed Date [...] as of this encounter (statuses as of 01/19/2023) Immunizations Name Administration Dates Next Due SEASONAL [...] encounter Miscellaneous Notes * Telephone Encounter - Cornelia Cr RN - 01/19/2023 10:08 AM EDT Transitions of Care Note Reason for Referral:Recent Admission Phone visit for follow up: SANDI Admitted to: [facility], Date: 12/27/2022 Discharged to: Home, Date: 01/18/2023 Diagnosis driving hospitalization: Bipolar 2 disorder, major depressive episode SANDI call not indicated per protocol due to psychiatric admission. Cornelia Cr RN documented in this encounter Plan of Treatment Upcoming Encounters Date Type Department Care Team (Late st Contact Info) Description 01/26/2023 11:00 AM EST Office Visit [address] [place] [id number] Av Graves MD [address] [facility] [address] [facility] [address] [place] [id number] Health Maintenance Due Date Last Done Comments DISCUSS TOBACCO CESSATION (REFER TO SMARTSET #0010) 1985 Hepatitis B (1 of 3 - [...] the patient have Health Care Power of Condenser Cleaner? No Full Code 12/25/2021 1:35 PM 01/06/2022 6:52 PM This order reflects the patients wishes and were consensually agreed upon. Question Answer Comments Discussion of Advance Directives occurred with: Family Does the patient have a Living Will? No Does the patient have Health Care Power of Condenser Cleaner? No Care Teams Heel Boom Operator Relationship Specialty Start Date End Date Av Graves MD [address] [id number] PCP - General Family Medicine 06/27/22 documented as of this encounter
--- OUTSIDE RECORDS SUMMARY | 2023-04-19 19:49 | External Medical Summary | Summary of Care ---
Author Name Unknown Organization [facility] Address [address] [place] [address] Phone [phone] Care Team Providers Care Cutting Pressman Name Role Phone Av Graves MD Primary Care Provider [phone] Reason for Visit * Reason Onset Date Comments Referral 01/22/2023 Encounter Details Date Type Department Care Team (Late st Contact Info) Description 01/22/2023 Telephone Endocrinology, [place] [address] [place] [address] [place], Pharmacist Endocrinology [address] [place] [address] Referral Allergies No known active allergiesdocumented as of this encounter (statuses as of 01/22/2023) Medications Medication Sig Dispensed Refills Start Date End Date Status Methadone HCl 10 MG/ML Oral Concentrate Take 10.7 mL by mouth in the morning. 0 11/01/2021 Active OneTouch Verio w/Device KitIndications:Type 1 diabetes mellitus with hemoglobin A1c goal of less than 8.0% ([facility]) Use up to 4 times [...] hemoglobin A1c goal of less than 8.0% ([facility]) USE THREE TIMES DAILY WITH HUMALOG KWIK PEN E10.9 100 Each 0 12/13/2022 Active OneTouch Delica Plus [id number] :Type 1 diabetes mellitus with hemoglobin A1c goal of less than 8.0% ([facility]) test blood sugars FOUR TIMES DAILY E10.9 100 Each 0 12/13/2022 Active OneTouch Verio In Vitro Strip (Glucose Blood)Indications:Ty pe 1 diabetes mellitus with hemoglobin A1c goal of less than 8.0% ([facility]) Use up to 4 times [...] Oral Tablet (SEROquel)Indication s:Bipolar 1 disorder, depressed ([facility]) Take 1 Tablet by mouth [...] as of this encounter (statuses as of 01/22/2023) Active Problems Problem Noted Date Diagnosed Date [...] as of this encounter (statuses as of 01/22/2023) Resolved Problems Problem Noted Date Diagnosed Date [...] as of this encounter (statuses as of 01/22/2023) Immunizations Name Administration Dates Next Due SEASONAL [...] encounter Miscellaneous Notes * Telephone Encounter - Chacha Parham RPh - 01/22/2023 4:19 PM EST Patient is not currently followed by endocrinology. Due to collaborative practice agreement, patient must be following with endocrinology provider in order to be seen by endo MTM. Please place endocrinology referral. Thank you * Telephone Encounter - Amanda Echavarria CPhT - 01/22/2023 3:18 PM EST Comments Pharmacist Medication Therapy Management: Minimum frequency patient should be seen in person for medication management: as appropriate per clinical condition and patient status By my signature, I understand that my patient Gil Irby will have his medication therapy managed by the [facility] ([facility]) per established policies, procedures, and protocols. I also certify that this referral may serve as an initiation of service for the management of drug therapy in the above noted patient. [facility] providers will be responsible for scheduling patient visits, obtaining appropriate laboratory studies, and adjusting medication management therapy per patient's need, in addition to those roles spelled out in the clinic policy, procedures, and drug management protocols. I understand that the service provided by the [facility] is voluntary and have informed patient that they can refuse the service at their discretion. I am aware that the [facility] will provide me with a copy of the patient encounter via my [employer]. I authorize the [facility] to carry out these activities on my behalf. I consider this program to be a necessary part of the patient's medical care. Palak Arroyo PA-C Discharge Order Order Specific Questions Referral Priority Within 3 days (urgent) Where should this appointment be scheduled? [facility] Department: Specialist Specialty: Endo Reason for Referral: DM Target A1c: < 8 documented in this encounter Plan of Treatment Upcoming Encounters Date Type Department Care Team (Late st Contact Info) Description 01/26/2023 11:00 AM EST Office Visit [facility] [address] [id number] Av Graves MD [address] [address] Health Maintenance Due Date Last Done Comments DISCUSS TOBACCO CESSATION (REFER TO SMARTSET #5843) 1985 Hepatitis B (1 of 3 - [...] the patient have Health Care Power of Party Bus Driver? No Full Code 12/25/2021 1:35 PM 01/06/2022 6:52 PM This order reflects the patients wishes and were consensually agreed upon. Question Answer Comments Discussion of Advance Directives occurred with: Family Does the patient have a Living Will? No Does the patient have Health Care Power of Party Bus Driver? No Care Teams Cutting Pressman Relationship Specialty Start Date End Date Av Graves MD [address] [id number] PCP - General Family Medicine 06/27/22 documented as of this encounter
--- OUTSIDE RECORDS SUMMARY | 2023-04-19 19:50 | External Medical Summary ---
Author Name Unknown Address Unknown Organization : Laboratory Report Ordering Provider Test Date Status DAYANARA MORA 01/17/2023 11:20:49 Final Observation Date Value Abnormality Reference (Units ) Status Glucose Point of Care 01/17/2023 11:20:49 73 70-120 (mg/dL) Final Performing Location
--- OUTSIDE RECORDS SUMMARY | 2023-04-19 19:50 | External Medical Summary ---
Author Name Unknown Address Unknown Organization : Laboratory Report Ordering Provider Test Date Status DAYANARA MORA 01/17/2023 06:04:12 Final Observation Date Value Abnormality Reference (Units) Status Glucose Point of Care 01/17/2023 06:04:12 31 Below lower panic limits 70-120 (mg/dL) Final POCT DEVICE COMMENT 01/17/2023 06:04:12 Notified Provider Final Performing Location
--- OUTSIDE RECORDS SUMMARY | 2023-04-19 19:50 | External Medical Summary ---
Author Name Unknown Address Unknown Organization : Laboratory Report Ordering Provider Test Date Status DAYANARA MORA 01/17/2023 07:21:47 Final Observation Date Value Abnormality Reference (Units ) Status Glucose Point of Care 01/17/2023 07:21:47 280 Above high normal 70-120 (mg/dL) Final Performing Location
--- OUTSIDE RECORDS SUMMARY | 2023-04-19 19:50 | External Medical Summary ---
Author Name Unknown Address Unknown Organization : Laboratory Report Ordering Provider Test Date Status DAYANARA MORA 01/16/2023 17:00:52 Final Observation Date Value Abnormality Reference (Units ) Status Glucose Point of Care 01/16/2023 17:00:52 128 Above high normal 70-120 (mg/dL) Final Performing Location
--- OUTSIDE RECORDS SUMMARY | 2023-04-19 19:50 | External Medical Summary | Summary of Care ---
Author Name Unknown Organization [facility] Address [address] [place] [address] Phone [phone] Care Team Providers Care Barbering Instructor Name Role Phone Av Graves MD Primary Care Provider [phone] Reason for Referral * Evaluate & Treat - Unlimited Visits (Within 3 days (urgent)) - Pending Review Specialty Diagnoses / Procedures Referred By Leticia nash Referred To Contact Pharmacist / Pharmacy Diagnoses Uncontrolled other specified diabetes mellitus with hyperglycemia (HCC) Sample, Palak Sahu PA-C [address] [place] [address] Referral ID Status Reason Start Date Expiration Date Visits Requested Visits Authorized [id number] Pending Review Specialty Services Required 01/18/2023 99 99 Question Answer Referral Priority Within 3 days (urgent) Where should this appointment be scheduled? [facility] Department: Specialist Specialty: Endo Reason for Referral: DM Target A1c: < 8 Comments Pharmacist Medication Therapy Management: Minimum frequency patient should be seen in person for medication management: as appropriate per clinical condition and patient status By my signature, I understand that my patient Gil Irby will have his medication therapy managed by the [facility] ([facility]) per established policies, procedures, and protocols. I also certify that this referral may serve as an initiation of service for the management of drug therapy in the above noted patient. [facility] providers will be responsible for scheduling patient visits, obtaining appropriate laboratory studies, and adjusting medication management therapy per patient's need, in addition to those roles spelled out in the clinic policy, procedures, and drug management protocols. I understand that the service provided by the [facility] is voluntary and have informed patient that they can refuse the service at their discretion. I am aware that the [facility] Clinic will provide me with a copy of the patient encounter via [facility]. I authorize the [facility] to carry out these activities on my behalf. I consider this program to be a necessary part of the patient's medical care. Palak Arroyo PA-C Discharge Order Reason for Visit * Reason Comments Weakness, Generalized * Auth/Cert Specialty Diagnoses / Procedures Referred By Leticia nash Referred To Contact Referral ID Status Reason Start Date Expiration Date Visits Re quested Visits Authorized [id number] Encounter Details Date Type Department Care Team (Late st Contact Info) Description 12/27/2022 12:11 PM EDT - 01/18/2023 2:37 PM EDT Hospital Encounter 7A [facility] 7th Floor [address] [place], [place] [id number] Bonifacio Ratliff MD [address] [place] [address] Denise Mcmillan MD [address] [place] [address] Marlon Banda MD [address] [place] [address] [id number] Coco Jean MD [address] [place] [address] Various: CDIQDC,EKG Discharge Disposition: Home with Services Allergies No known active allergiesdocumented as of this encounter (statuses as of 01/19/2023) Medications Medication Sig Dispensed Refills Start Date End Date Status Methadone HCl 10 MG/ML Oral Concentrate Take 10.7 mL by mouth in the morning. 0 2 Active OneTouch Verio w/Device KitIndications:Ty pe 1 diabetes mellitus with hemoglobin A1c goal of less than 8.0% (HCC) Use up to 4 times a day E11.9 1 Kit 0 2 Active ProAir HFA 108 (90 Base) MCG/ACT Inhalation Aerosol SolutionIndicatio ns:Pneumonia of both upper lobes due to infectious organism Inhale by mouth 2 Puffs every 4 hours as needed for Wheezing. 18 g 1 2 Active BD Pen Needle Mini U/F 31G X 5 MM (Insulin Pen Needle)Indication s:Type 1 diabetes mellitus with hemoglobin A1c goal of less than 8.0% (HCC) USE THREE TIMES DAILY WITH HUMALOG KWIK PEN E10.9 100 Each 0 3 Active OneTouch Delica Plus [id number] ons:Type 1 diabetes mellitus with hemoglobin A1c goal of less than 8.0% (HCC) test blood sugars FOUR TIMES DAILY E10.9 100 Each 0 3 Active OneTouch Verio In Vitro Strip (Glucose Blood)Indications :Type 1 diabetes mellitus with hemoglobin A1c goal of less than 8.0% (HCC) Use up to 4 times a day E10.9 100 Strip 0 3 Active Amoxicillin-Pot Clavulanate 875-125 MG Oral Tablet (Augmentin) Take 1 Tablet by mouth in the morning and 1 Tablet before bedtime. 28 Tablet 0 3 Active Gabapentin 300 MG Oral Capsule (Neurontin) Take 1 Capsule by mouth in the morning and 1 Capsule at noon and 1 Capsule before bedtime. 42 Capsule 0 3 Active Levothyroxine Sodium 88 MCG Oral Tablet (Levoxyl) Take 1 Tablet by mouth daily first thing in the morning. 14 Tablet 0 3 Active Midodrine HCl 10 MG Oral Tablet (Proamatine) Take 1 Tablet by mouth in the morning and 1 Tablet at noon and 1 Tablet before bedtime. 42 Tablet 0 3 Active Mirtazapine 15 MG Oral Tablet (Remeron) Take 1 Tablet by mouth at bedtime. 14 Tablet 0 3 Active QUEtiapine Fumarate 200 MG Oral Tablet (SEROquel)Indicat ions:Bipolar 1 disorder, depressed (HCC) Take 1 Tablet by mouth at bedtime. 14 Tablet 0 3 Active Sulfamethoxazole- Trimethoprim 800-160 MG Oral Tablet (Bactrim DS) Take 1 Tablet by mouth in the morning and 1 Tablet before bedtime. 28 Tablet 0 3 Active Culturelle Oral Capsule Take 1 Capsule by mouth at noon and 1 Capsule in the evening. 28 Capsule 0 3 Active Nicotine 14 MG/24HR Transdermal Patch 24 Hour (Nicoderm CQ) Place 1 Patch over 24 hours topically on the skin in the morning. 0 3 Active Nutrisource Fiber Oral Packet Take 1 Packet by mouth in the morning. 14 Packet 0 3 Active Sertraline HCl 100 MG Oral Tablet (Zoloft) Take 1 Tablet by mouth in the morning. Do not start before January 19, 2023. 14 Tablet 0 3 Active Sertraline HCl 25 MG Oral Tablet (Zoloft) Take 1 Tablet by mouth in the morning. 14 Tablet 0 3 Active Lantus SoloStar 100 UNIT/ML Subcutaneous Solution Pen-injector Inject 18 Units under the skin at bedtime. 15 mL 0 3 Active Insulin Aspart 100 UNIT/ML Subcutaneous Solution Pen-injector (novoLOG) Inject 1-4 units four times daily (morning, noon, evening and bedtime) per sliding scale 15 mL 0 3 Active Amoxicillin-Pot Clavulanate 875-125 MG Oral Tablet (Augmentin) Take 1 Tablet by mouth in the morning and 1 Tablet before bedtime. 60 Tablet 0 3 01/19/20 23 Discontinued Sulfamethoxazole- Trimethoprim 800-160 MG Oral Tablet (Bactrim DS) Take 1 Tablet by mouth in the morning and 1 Tablet before bedtime. 60 Tablet 0 3 01/19/20 23 Discontinued Gabapentin 300 MG Oral Capsule (Neurontin) Take 1 Capsule by mouth in the morning and 1 Capsule at noon and 1 Capsule before bedtime. 90 Capsule 0 3 01/19/20 23 Discontinued(Ref ill) Insulin Aspart 100 UNIT/ML Subcutaneous Solution Pen-injector (novoLOG) Check blood sugar before each meal and at bedtime then inject insulin aspart based on the sliding scale -- Glucose 150-200: 2 units, Glucose 201-250: 4 units, Glucose 251-300: 6 units, Glucose 301-350: 8 units, Glucose 351-400: 10 units, Glucose greater than 400: 12 units 3 Each 0 3 01/19/20 23 Discontinued(Ref ill) Lantus SoloStar 100 UNIT/ML Subcutaneous Solution Pen-injector Inject 12 Units under the skin at bedtime. 3 mL 0 3 01/19/20 23 Discontinued(Ref ill) Levothyroxine Sodium 88 MCG Oral Tablet (Levoxyl) Take 1 Tablet by mouth daily first thing in the morning. 30 Tablet 0 3 01/19/20 23 Discontinued(Ref ill) Mirtazapine 15 MG Oral Tablet (Remeron) Take 1 Tablet by mouth at bedtime. 30 Tablet 0 3 01/19/20 23 Discontinued(Ref ill) QUEtiapine Fumarate 200 MG Oral Tablet (SEROquel)Indicat ions:Bipolar 1 disorder, depressed (HCC) Take 1 Tablet by mouth at bedtime. 30 Tablet 0 3 01/19/20 23 Discontinued(Ref ill) Sulfamethoxazole- Trimethoprim 800-160 MG Oral Tablet (Bactrim DS) Take 1 Tablet by mouth in the morning and 1 Tablet before bedtime. 28 Tablet 0 3 01/19/20 23 Discontinued(Ref ill) Amoxicillin-Pot Clavulanate 875-125 MG Oral Tablet (Augmentin) Take 1 Tablet by mouth in the morning and 1 Tablet before bedtime. 28 Tablet 0 3 01/19/20 23 Discontinued(Ref ill) Midodrine HCl 10 MG Oral Tablet (Proamatine) Take 1 Tablet by mouth in the morning and 1 Tablet at noon and 1 Tablet before bedtime. 90 Tablet 0 3 01/19/20 23 Discontinued(Ref ill) Insulin Aspart 100 UNIT/ML Subcutaneous Solution Pen-injector (novoLOG) Check blood sugar before each meal and at bedtime then inject insulin aspart based on the sliding scale -- Glucose 80-150: 0 units, Glucose 151-200: 1 units, Glucose 201-250: 2 units, Glucose 251-300: 3 units, Glucose greater than 300: 4 units. With breakfast, inject 1unit for every 15 grams of carbs consumed. With lunch and dinner, inject 1 unit for every 18grams of carbs consumed. 2 Each 0 3 01/19/20 Discontinued(Ref ill) Lantus SoloStar 100 UNIT/ML Subcutaneous Solution Pen-injector Inject 18 Units under the skin at bedtime. 15 mL 0 3 01/19/20 Discontinued(Ref ill) Sertraline HCl 25 MG Oral Tablet (Zoloft) Take 5 Tablets by mouth in the morning. 70 Tablet 0 3 01/19/20 Discontinued(Ref ill) Insulin Aspart 100 UNIT/ML Subcutaneous Solution Pen-injector (novoLOG) Check blood sugar before each meal and at bedtime then inject insulin aspart based on the sliding scale -- Glucose 80-150: 0 units, Glucose 151-200: 1 units, Glucose 201-250: 2 units, Glucose 251-300: 3 units, Glucose greater than 300: 4 units. With breakfast, inject 1unit for every 15 grams of carbs consumed. With lunch and dinner, inject 1 unit for every 18grams of carbs consumed. 2 Each 0 3 01/19/20 Discontinued(Ref ill) Insulin Aspart 100 UNIT/ML Subcutaneous Solution Pen-injector (novoLOG) Check blood sugar before each meal and at bedtime then inject insulin aspart based on the sliding scale -- Glucose 80-150: 0 units, Glucose 151-200: 1 units, Glucose 201-250: 2 units, Glucose 251-300: 3 units, Glucose greater than 300: 4 units. With breakfast, inject 1unit for every 15 grams of carbs consumed. With lunch and dinner, inject 1 unit for every 18grams of carbs consumed. 2 Each 0 3 01/19/20 Discontinued(Ref ill) Insulin Aspart 100 UNIT/ML Subcutaneous Solution Pen-injector (novoLOG) Inject 0-4 Units under the skin 4 times a day. Check blood sugar before each meal and at bedtime then inject insulin aspart based on the sliding scale -- Glucose 80-150: 0 units, Glucose 151-200: 1 units, Glucose 201-250: 2 units, Glucose 251-300: 3 units, Glucose greater than 300: 4 units. With breakfast, inject 1unit for every 15 grams of carbs consumed. With lunch and dinner, inject 1 unit for every 18grams of carbs consumed. 2 Each 0 3 01/19/20 Discontinued Insulin Aspart 100 UNIT/ML Subcutaneous Solution Pen-injector (novoLOG) Inject 0-4 Units under the skin 4 times a day. 2 Each 0 3 01/19/20 Discontinued documented as of this encounter (statuses as [...] Sign Reading Time Taken Comments Blood Pressure 92/64 01/18/2023 6:00 AM EDT Pulse 86 01/18/2023 6:00 AM EDT Temperature 36.4 C (97.5 F) 01/18/2023 6:00 AM ED T Respiratory Rate 14 01/18/2023 6:00 AM EDT Oxygen Saturation 95% 01/06/2023 6:00 AM EDT Inhaled Oxygen Concentration - - Weight 53.7 kg (118 lb 4.8 oz) 01/15/2023 6:00 P M EDT Height - - Body Mass Index 19.09 12/11/2022 8:50 PM EDT documented in this [...] of this encounter Discharge Instructions * Discharge Instr - AVS* Halina Stewart BS - 01/18/2023 9:17 AM EDT Discharge Date: 01/18/2023 If the condition for which you were treated on the psychiatric unit worsens, fails to improve or you feel suicidal or homicidal, please call [facility]: or go to the nearest emergency room. The information below provides you with the instructions and the list of medications you need to betaking following discharge from the hospital. If you have any questions, please ask before leaving. Please carry this letter with you when you see your doctor in the clinic. If you have questions about your hospital stay or test results, you can reach us at [phone]. Destination: Home of daughter on the [facility] Primary Diagnosis at discharge: Major Depressive Disorder Recurrent Episode Unspecified. Stimulant use disorder/methamphetamine use disorder severe. Opiate use disorder on maintenance therapies. Brief summary of your inpatient care: The reason you were admitted to inpatient psychiatric treatment was due to change in mental status and decline in overall functioning. During your hospitalization, you were treated with a combination of medication and psycho-education therapy. Follow up treatment appointments have been scheduled for you and are noted below. Please attend scheduled appointments after discharge. Inpatient test results pending: None Operations & Procedures: None Complications: none applicable Diet: Follow the same diet as that followed prior to admission. Activity: As safely tolerated. Driving: You may drive if you can walk normally and firmly apply the brake and as long as your medications do not make you drowsy or dizzy. Date you may return to work or school: Upon discharge. See your primary care physician as listed below. SALES STOCK ASSOCIATE SECTION: Complaint Manager Instructions: - Go to all scheduled follow-up appointments. - Please take your medications everyday as prescribed. - Do not take more than as prescribed because this can be dangerous. - Do not drink alcohol, this can make depression worse by blocking the effects of antidepressants. Do not use illicit drugs as this makes your mood worse and can be toxic to your body in may ways. - Avoid tobacco, which contains nicotine. Limit caffeine use. Nicotine and caffeine are stimulants that can cause you to have difficulty sleeping. If you don't sleep, you can experience anxiety and worsening depression. Recommended Outpatient Treatment Plan: (please call to cancel or reschedule if unable to keep appointments) [facility] [address] [place] [address] Please call between the hours of 8:00 am and 4:00 pm on Sunday-Sunday to schedule or cancel a ride.You must call to schedule a ride before noon on the day before appointment, or cancel within 2 hours of appointment. [facility] (M[facility]adone [facility]) [address] [place] [address] Sunday-Sunday (6:00-12:00) Sunday-Sunday (6:15-9:30) You have requested to contact [facility] to schedule a date and time of aftercare appointment. [facility] [address] [place] [address] Phone#: Fax#: Intake appointment is scheduled with Karon Brandt on 01/22/2023 @ 3:00 pm for drug and alcohol counseling. [facility] [address] [facility] [address] [place] [address] Intake appointment is scheduled with Tashi Pedro on 01/23/2023 @ 9:30 am to assist with recovery needs and relapse prevention. [facility] [address] [place] [address] Psychiatry appointment is scheduled with HANNAH Valderrama on 2023 @ 10:15 am inthe office for medication management. [facility] [address] [place] [address] Phone #: [phone] Primary Care Provider appointment is scheduled with Dr. Av Graves M.D. on 01/26/2023 @ 11:00 am for hospital follow-up. [facility]) [address] [place] [address] Phone #: [phone] Referral submitted by [facility]; you will be contacted with date and time of intake appointment. [facility] Referral submitted by [facility]; you will be contacted with date and time of hospital follow-up appointment. [facility] [place] [facility] [address] [place] [address] [place] [address] Please discuss need for inpatient drug and alcohol rehab with [facility] Patient being discharged to another Inpatient Facility: No Complaint Manager Section Completed By: MICHAEL Murdock Patient is a tobacco user: yes Nicotine replacement prescription given at discharge: no, patient declined at this time Patient scheduled for tobacco use treatment appointment: no, patient declined outpatient tobacco use program referral at this time Pt received tobacco cessation education on . * Pharmacy Instr - AVS* Blaise Ac [facility] - 01/18/2023 11:01 AM EDT Novolog sliding scale: Check blood sugar before each meal and at bedtime then inject insulin aspart based on the sliding scale -- Glucose 150-200: 2 units, Glucose 201-250: 4 units, Glucose 251-300: 6 units, Glucose 301-350: 8 units, Glucose 351-400: 10 units, Glucose greater than 400: 12 units documented in this encounter Progress Notes * Blaise Ac RPh - 01/18/2023 9:43 AM EDT PHARMACY DISCHARGE MEDICATION RECONCILIATION REVIEW [facility]-[address] [place] [address] Name: Gil Irby Location: [facility] [id number] Date: 01/18/2023 Time: 9:43 AM This discharge medication reconciliation was reviewed by a pharmacist and no corrections or interventions were required. * Palak Arroyo PA-C - 01/17/2023 8:50 AM EDT PHYSICIAN PROGRESS NOTE INPATIENT PSYCHIATRY [address] [address] Name: Gil Irby Location: [facility] [id number] Date: 01/17/2023 Time: 8:50 AM Commitment Status: 201 Review: Case Reviewed in Treatment Team and Nursing Notes Past 24 Hours Reviewed SUBJECTIVE: Gil Irby is seen for follow up today. Chart reviewed. No acute events through the night. Gil is feeling good today. Looking forward to discharge tomorrow. Depression is improved since admission. Rated a 2/10 (with 10 being the worst). Anxiety is also improved since admission, but increase in anticipation of discharge. Rated a 5/10 (with 10 being the worst). Denies suicidal ideation, homicidal ideation, auditory or visual hallucinations, or delusions. Reports good sleep and appetite. Diarrhea is improving as well. Denies other medication side effects such as fatigue, headache, dizziness, changes in vision, chest pain, shortness of breath, nausea, vomiting, dysuria, constipation, abdominal pain, tremors, abnormal facial movements, or restlessness. He plans to stay at his daughter's home after discharge and participate in IOP drug/alcohol programming. He also accepted a referral to the [facility] to assist with further managing his diabetes. Medication Compliance: compliant with all prescribed medicines PRN Medication Utilization: None in the last 24 hours. Participating in Treatment: Improved participation in milieu programming/investment in treatment Current Medication List: Current Facility-Administered Medications Medication Dose Route Frequency Provider dicyclomine (Bentyl) cap 10 mg 10 mg Oral TID PRN Palak Arroyo PA-C sertraline (Zoloft) tab 125 mg 125 mg Oral Daily(AM) Palak Arroyo PA-C Hydrocortisone 2.5 % cream Rectal TID PRN Coco Jean MD Cholestyramine Light (Prevalite) oral powder 4 g 4 g Oral TID(AM/NOON/HS) Kishor Bermudez CRNP house antacid (Mi-Acid II) oral susp 15 mL 15 mL Oral Q4H PRN Coco Jean MD insulin aspart (NovoLOG) inj Subcutaneous With Meals and HS Reji Brothers MD Insulin Glargine (Lantus) inj 18 Units 18 Units Subcutaneous HS insulin Reji Brothers MD insulin aspart (NovoLOG) inj Subcutaneous Lunch Nery Collier PA-C Lactobacillus (Culturelle) cap 1 Capsule 1 Capsule Oral BID (Noon, 1700) Nery Collier PA-C Nutrisource (soluble fiber packet) 1 Packet Oral Daily(AM) Nery Collier PA-C insulin aspart (NovoLOG) inj Subcutaneous Breakfast Jordy Chowdhury Ed, DO insulin aspart (NovoLOG) inj Subcutaneous Dinner Jordy Chowdhury Ed, DO levothyroxine (Levoxyl) tab 100 mcg 100 mcg Oral Daily 0630 Jordy Chowdhury, DO ondansetron (Zofran) tab 4 mg 4 mg Oral Q6H PRN Coco Jean MD home medication stored in pharmacy Does Not Apply Daily(AM) Coco Jean MD Nicotine (Nicoderm CQ) 14 MG/24HR patch 1 Patch 1 Patch Transdermal Daily(AM) Coco Jean MD methADONE CONCentrated 10 mg/mL oral conc 107 mg 107 mg Oral Daily(AM) Marlon Banda MD mirtazapine ODT (Remeron Soltab) tab 30 mg 30 mg Oral HS Marlon Banda MD Acetaminophen (Tylenol) tab 975 mg 975 mg Oral Q6H PRN Cari Navarro PA-C amoxicillin-clavulanate (Augmentin) tab 875 mg 875 mg Oral BID(AM/PM) Cari Navarro PA-C dextrose 50 % inj 25 mL 25 mL IV Push PRN Cari Navarro PA-C dextrose 50 % inj 50 mL 50 mL IV Push PRN Cari Navarro PA-C Gabapentin (Neurontin) cap 300 mg 300 mg Oral TID(AM/NOON/HS) Cari Navarro PA-C glucagon (Glucagen) inj 1 mg 1 mg Intramuscular PRN Cari Navarro PA-C Glucose (Glutose 15) 40 % gel 15 g of glucose 15 g of glucose Oral PRN Cari Navarro PA-C Glucose (Glutose 15) 40 % gel 30 g of glucose 30 g of glucose Oral PRN Cari Navarro PA-C glucose chew tab 16 g 16 g Oral PRN Cari Navarro PA-C guaiFENesin-dm (Robitussin DM) oral syrup 10 mL 10 mL Oral Q6H PRN Cari Navarro PA-C melatonin tab 3 mg 3 mg Oral HS PRN Cari Navarro PA-C midodrine (Proamatine) tab 10 mg 10 mg Oral TID(AM/NOON/HS) Cari Navarro PA-C QUEtiapine (SEROquel) tab 200 mg 200 mg Oral HS Cari Navarro PA-C sulfamethoxazole-trimethoprim DS (Bactrim DS) 800-160 MG 1 Tablet 1 Tablet Oral BID(AM/PM) Cari Navarro PA-C MENTAL STATUS EVALUATION: Appearance: age-appropriate, bearded, and casually dressed Muscle strength and tone: normal muscle strength and tone Gait and Station: steady with use of cane and leg brace Personal Presentation: candid and cooperative Behavior: appropriate and cooperative, good eye contact Speech: normal, rate, tone and volume Mood: "good" Affect: type - anxious; range - restricted ; lability - no Associations: intact Thought Process: goal directed and logical Abstract Reasoning: not tested Thought Content: (-) SI, HI, no overt paranoia or delusions Perception: (-) AVH no disturbances appreciated Orientation: alert and oriented to person, place, time and situation Recent and remote memory as evidenced by recall of recent circumstances and remote life events: intact Language as evidenced by ability to repeat phrase and name object: intact Fund of knowledge as evidenced by vocabulary and current/historical events: intact Attention span/concentration as evidenced by: ability to sustain attention to examiner - intact Insight: good as evidenced by help-seeking behavior and willingness to participate/continue in treatment Judgment: good as evidenced by help-seeking behavior and willingness to participate in treatment PHYSICAL/CONSULT/LAB FINDINGS: BP: 100 mmHg/63 mmHg (01/17/23599) Pulse: 103 (01/17/23599) Temp: 37.39 C (01/17/23599) Resp: 18 (01/17/23599) SpO2: 95 % (01/06/23599) Labs reviewed as indicated below: Recent Results (from the past 48 hour(s)) GLUCOSE METER, POINT OF CARE Collection Time: 01/15/23 4:13 PM Result Value Ref Range Glucose Meter 44 (LL) 70 - 120 mg/dL GLUCOSE METER, POINT OF CARE Collection Time: 01/15/23 4:43 PM Result Value Ref Range Glucose Meter 139 (H) 70 - 120 mg/dL GLUCOSE METER, POINT OF CARE Collection Time: 01/15/23 8:28 PM Result Value Ref Range Glucose Meter 379 (H) 70 - 120 mg/dL GLUCOSE METER, POINT OF CARE Collection Time: 01/15/23 9:54 PM Result Value Ref Range Glucose Meter >500 (HH) 70 - 120 mg/dL Device Comment Notified Provider GLUCOSE METER, POINT OF CARE Collection Time: 01/15/23 11:43 PM Result Value Ref Range Glucose Meter 339 (H) 70 - 120 mg/dL GLUCOSE METER, POINT OF CARE Collection Time: 01/16/23 5:22 AM Result Value Ref Range Glucose Meter 37 (LL) 70 - 120 mg/dL GLUCOSE METER, POINT OF CARE Collection Time: 01/16/23 5:53 AM Result Value Ref Range Glucose Meter 138 (H) 70 - 120 mg/dL GLUCOSE METER, POINT OF CARE Collection Time: 01/16/23 7:57 AM Result Value Ref Range Glucose Meter 171 (H) 70 - 120 mg/dL GLUCOSE METER, POINT OF CARE Collection Time: 01/16/23 11:40 AM Result Value Ref Range Glucose Meter 121 (H) 70 - 120 mg/dL GLUCOSE METER, POINT OF CARE Collection Time: 01/16/23 5:00 PM Result Value Ref Range Glucose Meter 128 (H) 70 - 120 mg/dL GLUCOSE METER, POINT OF CARE Collection Time: 01/16/23 7:51 PM Result Value Ref Range Glucose Meter 144 (H) 70 - 120 mg/dL GLUCOSE METER, POINT OF CARE Collection Time: 01/17/23 6:04 AM Result Value Ref Range Glucose Meter 31 (LL) 70 - 120 mg/dL Device Comment Notified Provider GLUCOSE METER, POINT OF CARE Collection Time: 01/17/23 6:35 AM Result Value Ref Range Glucose Meter 184 (H) 70 - 120 mg/dL GLUCOSE METER, POINT OF CARE Collection Time: 01/17/23 7:21 AM Result Value Ref Range Glucose Meter 280 (H) 70 - 120 mg/dL GLUCOSE METER, POINT OF CARE Collection Time: 01/17/23 11:20 AM Result Value Ref Range Glucose Meter 73 70 - 120 mg/dL GLUCOSE METER, POINT OF CARE Collection Time: 01/17/23 11:51 AM Result Value Ref Range Glucose Meter 52 (L) 70 - 120 mg/dL GLUCOSE METER, POINT OF CARE Collection Time: 01/17/23 1:12 PM Result Value Ref Range Glucose Meter 213 (H) 70 - 120 mg/dL DANGEROUSNESS TO SELF/OTHERS ASSESSMENT UPDATE: dangerousness to self/others has lessened and is now rated minimal risk PATIENT REPORTED DEPRESSION SCREENING (PHQ9): PHQ9 Survey Results Last 24hours (since 01/16/2023) None DIAGNOSIS: Principal Problem: Bipolar 2 disorder, major depressive episode (HCC) Active Problems: Hypothyroidism Severe protein-calorie malnutrition (HCC) Opioid use disorder Compulsive skin picking Methamphetamine abuse (HCC) Chronic osteomyelitis of right hand including fingers (HCC) Uncontrolled diabetes mellitus with hyperglycemia (HCC) Social anxiety disorder Nocturnal diarrhea BRBPR (bright red blood per rectum) Resolved Problems: Dehydration Orthostatic hypotension Syncope ASSESSMENT: Gil Irby is a 37 year old male with a past psychiatric history of ADHD and depression who was admitted to the 7A Inpatient Psychiatric Unit at [facility] ([facility]) on 12/27/2022 on a 201 (voluntary) commitment for depression with suicidal ideation. Gil continues to struggle with depression and anxiety and did not feel the addition of Buspar was helpful. He was agreeable to trying Zoloft instead to target both complaints. He is compliant with medications and showing improved participation in milieu programming. Would like to go to inpatient rehab after hospital discharge. PLAN: Reviewed with Dr. Jean and treatment team. Inpatient psychiatric care is necessary because of suicidal potential . Plan of care includes: 1) 201 (voluntary) commitment 2) Safety Q15 minute checks 3) Supportive milieu and group therapy 4) Safe discharge planning arranged discharge with [facility] drug/alcohol rehab. Referral for outpatient healthcare educator/MTM program Referral for OP orthopaedic f/u appointment 5) Psychotropic Medications Discontinue Buspar 10mg BID d/t ineffectiveness Gabapentin 300mg TID Remeron Soltab 30mg QHS Seroquel 200mg QHS Zoloft 125mg Daily for depression/anxiety 6) Medical Needs Continue home medications as prescribed Appreciate internal medicine's and endocrinologies co management of hyperglycemia. Insulin regimen changed to address persistent hyperglycemia. Increased dose of Synthroid from 88mcg to 100mcg as TSH was 60 on labs today. Bentyl for abdominal cramping 7) Labs/Imaging None pending. On antipsychotic therapy: HgbA1c 12/29/22 - 11.3% Lipid panel 12/29/22 - mildly elevated LDL Treatment options and alternatives reviewed with patient and they agree with the above plan. Information about current medications was provided to the patient including reasons why medicationsare being used, risks, benefits, side effects and alternatives to treatment (including no treatment). Signature: Palak Arroyo PA-C 01/17/2023 2:54 PM Associated attestation - Coco Jean MD - 01/17/2023 4:40 PM EDT I saw and evaluated the patient on date of service referenced in note and have supervised the performance of a medically appropriate history and/or exam by the Physician Real Estate Transaction Coordinator. I have reviewed the documentation and agree, with exceptions/additions as noted below: none Coco Jean MD Attending psychiatrist 01/17/23 4:35 PM * Palak Arroyo PA-C - 01/16/2023 7:44 AM EDT PHYSICIAN PROGRESS NOTE INPATIENT PSYCHIATRY [facility] [address] Name: Gil Irby Location: [facility] [id number] Date: 01/16/2023 Time: 7:44 AM Commitment Status: 201 Review: Case Reviewed in Treatment Team and Nursing Notes Past 24 Hours Reviewed SUBJECTIVE: Gil Irby is seen for follow up today. Chart reviewed. No acute events through the night. Gil is feeling "hopeful" today. Depression is improving and is mild today. Rated a 2/10 (with 10 being the worst). Anxiety is moderate. Rated a 5/10 (with 10 being the worst). Anxiety is mostly anticipatory in nature and regarding where he will go next. Expresses he would like to move forward with IOP drug/alcohol rehab if he does not get accepted for IP rehab. Denies suicidal ideation,homicidal ideation, auditory or visual hallucinations, or delusions. Reports good sleep and appetite. He was weighed yesterday and is happy to be gaining weight again. Bentyl was successful at reducing stomach cramping. Denies other medication side effects such as fatigue, headache, dizziness, changes in vision, chest pain, shortness of breath, nausea, vomiting, dysuria, constipation, abdominal pain, tremors, abnormal facial movements, or restlessness. Medication Compliance: compliant with all prescribed medicines PRN Medication Utilization: None in the last 24 hours. Participating in Treatment: Improved participation in milieu programming/investment in treatment Current Medication List: Current Facility-Administered Medications Medication Dose Route Frequency Provider dicyclomine (Bentyl) cap 10 mg 10 mg Oral TID PRN Sample, Palak Sahu PA-C sertraline (Zoloft) tab 125 mg 125 mg Oral Daily(AM) Sample, Palak Sahu PA-C Hydrocortisone 2.5 % cream Rectal TID PRN Coco Jean MD Cholestyramine Light (Prevalite) oral powder 4 g 4 g Oral TID(AM/NOON/HS) Kishor Bermudez CRNP house antacid (Mi-Acid II) oral susp 15 mL 15 mL Oral Q4H PRN Coco Jean MD insulin aspart (NovoLOG) inj Subcutaneous With Meals and HS Reji Brothers MD Insulin Glargine (Lantus) inj 18 Units 18 Units Subcutaneous HS insulin Reji Brothers MD insulin aspart (NovoLOG) inj Subcutaneous Lunch Nery Collier PA-C Lactobacillus (Culturelle) cap 1 Capsule 1 Capsule Oral BID (Noon, 1700) Nery Collier PA-C Nutrisource (soluble fiber packet) 1 Packet Oral Daily(AM) Nery Collier PA-C insulin aspart (NovoLOG) inj Subcutaneous Breakfast Jordy Chowdhury Ed, DO insulin aspart (NovoLOG) inj Subcutaneous Dinner Luciana, Jordy Ed, DO levothyroxine (Levoxyl) tab 100 mcg 100 mcg Oral Daily 0630 Jordy Chowdhury Ed, DO ondansetron (Zofran) tab 4 mg 4 mg Oral Q6H PRN Coco Jean MD home medication stored in pharmacy Does Not Apply Daily(AM) Coco Jean MD Nicotine (Nicoderm CQ) 14 MG/24HR patch 1 Patch 1 Patch Transdermal Daily(AM) Coco Jean MD methADONE CONCentrated 10 mg/mL oral conc 107 mg 107 mg Oral Daily(AM) Marlon Banda MD mirtazapine ODT (Remeron Soltab) tab 30 mg 30 mg Oral HS Marlon Banda MD Acetaminophen (Tylenol) tab 975 mg 975 mg Oral Q6H PRN Cari Navarro PA-C amoxicillin-clavulanate (Augmentin) tab 875 mg 875 mg Oral BID(AM/PM) Cari Navarro PA-C dextrose 50 % inj 25 mL 25 mL IV Push PRN Cari Navarro PA-C dextrose 50 % inj 50 mL 50 mL IV Push PRN Cari Navarro PA-C Gabapentin (Neurontin) cap 300 mg 300 mg Oral TID(AM/NOON/HS) Cari Navarro PA-C glucagon (Glucagen) inj 1 mg 1 mg Intramuscular PRN Cari Navarro PA-C Glucose (Glutose 15) 40 % gel 15 g of glucose 15 g of glucose Oral PRN Cari Navarro PA-C Glucose (Glutose 15) 40 % gel 30 g of glucose 30 g of glucose Oral PRN Cari Navarro PA-C glucose chew tab 16 g 16 g Oral PRN Cari Navarro PA-C guaiFENesin-dm (Robitussin DM) oral syrup 10 mL 10 mL Oral Q6H PRN Cari Navarro PA-C melatonin tab 3 mg 3 mg Oral HS PRN Cari Navarro PA-C midodrine (Proamatine) tab 10 mg 10 mg Oral TID(AM/NOON/HS) Cari Navarro PA-C QUEtiapine (SEROquel) tab 200 mg 200 mg Oral HS Cari Navarro PA-C sulfamethoxazole-trimethoprim DS (Bactrim DS) 800-160 MG 1 Tablet 1 Tablet Oral BID(AM/PM) Cari Navarro PA-C MENTAL STATUS EVALUATION: Appearance: age-appropriate, bearded, and casually dressed, wearing beanie hat Muscle strength and tone: normal muscle strength and tone Gait and Station: steady with use of cane and leg brace Personal Presentation: candid and cooperative Behavior: appropriate and cooperative, fair eye contact Speech: normal, rate, tone and volume Mood: "hopeful" Affect: type - dysphoric and anxious; range - restricted ; lability - no Associations: intact Thought Process: goal directed and logical Abstract Reasoning: not tested Thought Content: (-) SI, HI, no overt paranoia or delusions Perception: (-) AVH no disturbances appreciated Orientation: alert and oriented to person, place, time and situation Recent and remote memory as evidenced by recall of recent circumstances and remote life events: intact Language as evidenced by ability to repeat phrase and name object: intact Fund of knowledge as evidenced by vocabulary and current/historical events: intact Attention span/concentration as evidenced by: ability to sustain attention to examiner - intact Insight: good as evidenced by help-seeking behavior and willingness to participate/continue in treatment Judgment: good as evidenced by help-seeking behavior and willingness to participate in treatment PHYSICAL/CONSULT/LAB FINDINGS: BP: 105 mmHg/73 mmHg (01/16/23530) Pulse: 106 (01/16/23530) Temp: 36.61 C (01/15/23 0700) Resp: 18 (01/16/23530) SpO2: 95 % (01/06/23 0600) Labs reviewed as indicated below: Recent Results (from the past 48 hour(s)) GLUCOSE METER, POINT OF CARE Collection Time: 01/14/23 4:56 PM Result Value Ref Range Glucose Meter 166 (H) 70 - 120 mg/dL GLUCOSE METER, POINT OF CARE Collection Time: 01/14/23 8:01 PM Result Value Ref Range Glucose Meter 126 (H) 70 - 120 mg/dL GLUCOSE METER, POINT OF CARE Collection Time: 01/15/23 6:46 AM Result Value Ref Range Glucose Meter 230 (H) 70 - 120 mg/dL GLUCOSE METER, POINT OF CARE Collection Time: 01/15/23 11:15 AM Result Value Ref Range Glucose Meter 267 (H) 70 - 120 mg/dL GLUCOSE METER, POINT OF CARE Collection Time: 01/15/23 4:13 PM Result Value Ref Range Glucose Meter 44 (LL) 70 - 120 mg/dL GLUCOSE METER, POINT OF CARE Collection Time: 01/15/23 4:43 PM Result Value Ref Range Glucose Meter 139 (H) 70 - 120 mg/dL GLUCOSE METER, POINT OF CARE Collection Time: 01/15/23 8:28 PM Result Value Ref Range Glucose Meter 379 (H) 70 - 120 mg/dL GLUCOSE METER, POINT OF CARE Collection Time: 01/15/23 9:54 PM Result Value Ref Range Glucose Meter >500 (HH) 70 - 120 mg/dL Device Comment Notified Provider GLUCOSE METER, POINT OF CARE Collection Time: 01/15/23 11:43 PM Result Value Ref Range Glucose Meter 339 (H) 70 - 120 mg/dL GLUCOSE METER, POINT OF CARE Collection Time: 01/16/23 5:22 AM Result Value Ref Range Glucose Meter 37 (LL) 70 - 120 mg/dL GLUCOSE METER, POINT OF CARE Collection Time: 01/16/23 5:53 AM Result Value Ref Range Glucose Meter 138 (H) 70 - 120 mg/dL GLUCOSE METER, POINT OF CARE Collection Time: 01/16/23 7:57 AM Result Value Ref Range Glucose Meter 171 (H) 70 - 120 mg/dL GLUCOSE METER, POINT OF CARE Collection Time: 01/16/23 11:40 AM Result Value Ref Range Glucose Meter 121 (H) 70 - 120 mg/dL DANGEROUSNESS TO SELF/OTHERS ASSESSMENT UPDATE: dangerousness to self/others has lessened and is now rated minimal risk PATIENT REPORTED DEPRESSION SCREENING (PHQ9): PHQ9 Survey Results Last 24hours (since 01/15/2023) None DIAGNOSIS: Principal Problem: Bipolar 2 disorder, major depressive episode (HCC) Active Problems: Hypothyroidism Severe protein-calorie malnutrition (HCC) Opioid use disorder Compulsive skin picking Methamphetamine abuse (HCC) Chronic osteomyelitis of right hand including fingers (HCC) Uncontrolled diabetes mellitus with hyperglycemia (HCC) Social anxiety disorder Nocturnal diarrhea BRBPR (bright red blood per rectum) Resolved Problems: Dehydration Orthostatic hypotension Syncope ASSESSMENT: Gil Irby is a 37 year old male with a past psychiatric history of ADHD and depression who was admitted to the Inpatient Psychiatric Unit at [facility] ([facility]) on 12/27/2022 on a 201 (voluntary) commitment for depression with suicidal ideation. Gil continues to struggle with depression and anxiety and did not feel the addition of Buspar was helpful. He was agreeable to trying Zoloft instead to target both complaints. He is compliant with medications and showing improved participation in milieu programming. Would like to go to inpatient rehab after hospital discharge. PLAN: Reviewed with Dr. Jean and treatment team. Inpatient psychiatric care is necessary because of suicidal potential . Plan of care includes: 1) 201 (voluntary) commitment 2) Safety Q15 minute checks 3) Supportive milieu and group therapy 4) Safe discharge planning Referrals to inpatient rehab not successful. CM to arrange discharge with [facility] drug/alcohol rehab. Referral for outpatient healthcare educator Referral for OP orthopaedic f/u appointment 5) Psychotropic Medications Discontinue Buspar 10mg BID d/t ineffectiveness Gabapentin 300mg TID Remeron Soltab 30mg QHS Seroquel 200mg QHS Zoloft 125mg Daily for depression/anxiety 6) Medical Needs Continue home medications as prescribed Appreciate internal medicine's and endocrinologies co management of hyperglycemia. Insulin regimen changed to address persistent hyperglycemia. Increased dose of Synthroid from 88mcg to 100mcg as TSH was 60 on labs today. Bentyl for abdominal cramping 7) Labs/Imaging None pending. On antipsychotic therapy: HgbA1c 12/29/22 - 11.3% Lipid panel 12/29/22 - mildly elevated LDL Treatment options and alternatives reviewed with patient and they agree with the above plan. Information about current medications was provided to the patient including reasons why medicationsare being used, risks, benefits, side effects and alternatives to treatment (including no treatment). Signature: Palak Arroyo PA-C 01/16/2023 3:12 PM Associated attestation - Coco Jean MD - 01/16/2023 3:14 PM EDT I saw and evaluated the patient on date of service referenced in note and have supervised the performance of a medically appropriate history and/or exam by the Physician Real Estate Transaction Coordinator. I have reviewed the documentation and agree, with exceptions/additions as noted below: none Coco Jean MD Attending psychiatrist 01/16/23 3:14 PM * Sample, Palak Sahu PA-C - 01/15/2023 8:53 AM EDT PHYSICIAN PROGRESS NOTE INPATIENT PSYCHIATRY [facility]-[address] [address] Name: Gil Irby Location: [facility] [id number] Date: 01/15/2023 Time: 8:53 AM Commitment Status: 201 Review: Case Reviewed in Treatment Team and Nursing Notes Past 24 Hours Reviewed SUBJECTIVE: Gil Irby is seen for follow up today. Chart reviewed. No acute events through the night. Gil is not feeling well physically today. Experiencing a lot of abdominal cramping and pain with an increase in diarrhea. He has been in bed all morning. Explains he had one episode of hematochezia on Sunday evening, but this has not persisted. Despite feeling physically sick, his mood has also been down most of the weekend. Depression is moderate. Rated a 6/10 (with 10 being the worst). Anxiety is also moderate. Rated a 5/10 (with 10 being the worst). Had several visits with his wifethat did not go well. He did not feel like discussing why today. Offered support to which he was thankful. Last evening, the visit with so poorly, Gil was slamming doors and visibly upset. He deescalated with nursing staff and found this to be helpful for him. Feels he could come to nursing staffshould he feel this way again. Denies suicidal ideation, homicidal ideation, auditory or visual hallucinations, or delusions. Reports sleep has been "rough" the last few nights due to increased anxiety and diarrhea. Despite all that is going on, his appetite has remained good. Tolerating titration of Zoloft well and Denies medication side effects such as fatigue, headache, dizziness, changes in vision, chest pain, shortness of breath, nausea, vomiting, dysuria, constipation, tremors, abnormal facial movements, or restlessness. He is agreeable to increasing his Zoloft to help his mood. Medication Compliance: compliant with all prescribed medicines PRN Medication Utilization: None in the last 24 hours. Participating in Treatment: Improved participation in milieu programming/investment in treatment Current Medication List: Current Facility-Administered Medications Medication Dose Route Frequency Provider dicyclomine (Bentyl) cap 10 mg 10 mg Oral TID PRN Palak Arroyo PA-C [START ON 01/16/2023] sertraline (Zoloft) tab 125 mg 125 mg Oral Daily(AM) Palak Arroyo PA-C Hydrocortisone 2.5 % cream Rectal TID PRN Coco Jean MD Cholestyramine Light (Prevalite) oral powder 4 g 4 g Oral TID(AM/NOON/HS) Kishor Bermudez CRNP house antacid (Mi-Acid II) oral susp 15 mL 15 mL Oral Q4H PRN Coco Jean MD insulin aspart (NovoLOG) inj Subcutaneous With Meals and HS Reji Brothers MD Insulin Glargine (Lantus) inj 18 Units 18 Units Subcutaneous HS insulin Reji Brothers MD insulin aspart (NovoLOG) inj Subcutaneous Lunch Nery Collier PA-C Lactobacillus (Culturelle) cap 1 Capsule 1 Capsule Oral BID (Noon, 1700) Nery Collier PA-C Nutrisource (soluble fiber packet) 1 Packet Oral Daily(AM) Nery Collier PA-C insulin aspart (NovoLOG) inj Subcutaneous Breakfast LucianaJordy pantoja Ed, DO insulin aspart (NovoLOG) inj Subcutaneous Dinner Luciana, Jordy Ed, DO levothyroxine (Levoxyl) tab 100 mcg 100 mcg Oral Daily 0630 Jordy Chowdhury Ed, DO ondansetron (Zofran) tab 4 mg 4 mg Oral Q6H PRN Coco Jean MD home medication stored in pharmacy Does Not Apply Daily(AM) Coco Jean MD Nicotine (Nicoderm CQ) 14 MG/24HR patch 1 Patch 1 Patch Transdermal Daily(AM) Coco Jean MD methADONE CONCentrated 10 mg/mL oral conc 107 mg 107 mg Oral Daily(AM) Marlon Banda MD mirtazapine ODT (Remeron Soltab) tab 30 mg 30 mg Oral HS Marlon Banda MD Acetaminophen (Tylenol) tab 975 mg 975 mg Oral Q6H PRN Cari Navarro PA-C amoxicillin-clavulanate (Augmentin) tab 875 mg 875 mg Oral BID(AM/PM) Cari Navarro PA-C dextrose 50 % inj 25 mL 25 mL IV Push PRN Cari Navarro PA-C dextrose 50 % inj 50 mL 50 mL IV Push PRN Cari Navarro PA-C Gabapentin (Neurontin) cap 300 mg 300 mg Oral TID(AM/NOON/HS) Cari Navarro PA-C glucagon (Glucagen) inj 1 mg 1 mg Intramuscular PRN Cari Navarro PA-C Glucose (Glutose 15) 40 % gel 15 g of glucose 15 g of glucose Oral PRN Cari Navarro PA-C Glucose (Glutose 15) 40 % gel 30 g of glucose 30 g of glucose Oral PRN Cari Navarro PA-C glucose chew tab 16 g 16 g Oral PRN Cari Navarro PA-C guaiFENesin-dm (Robitussin DM) oral syrup 10 mL 10 mL Oral Q6H PRN Cari Navarro PA-C melatonin tab 3 mg 3 mg Oral HS PRN Cari Navarro PA-C midodrine (Proamatine) tab 10 mg 10 mg Oral TID(AM/NOON/HS) Cari Navarro PA-C QUEtiapine (SEROquel) tab 200 mg 200 mg Oral HS Cari Navarro PA-C sulfamethoxazole-trimethoprim DS (Bactrim DS) 800-160 MG 1 Tablet 1 Tablet Oral BID(AM/PM) Cari Navarro PA-C MENTAL STATUS EVALUATION: Appearance: age-appropriate, bearded, and casually dressed, wearing beanie hat Muscle strength and tone: normal muscle strength and tone Gait and Station: steady with use of cane and leg brace Personal Presentation: candid and cooperative Behavior: appropriate and cooperative, fair eye contact Speech: normal, rate, tone and volume Mood: depressed Affect: type - dysphoric; range - blunted ; lability - no Associations: intact Thought Process: goal directed and logical Abstract Reasoning: not tested Thought Content: (-) SI, HI, no overt paranoia or delusions Perception: (-) AVH no disturbances appreciated Orientation: alert and oriented to person, place, time and situation Recent and remote memory as evidenced by recall of recent circumstances and remote life events: intact Language as evidenced by ability to repeat phrase and name object: intact Fund of knowledge as evidenced by vocabulary and current/historical events: intact Attention span/concentration as evidenced by: ability to sustain attention to examiner - intact Insight: good as evidenced by help-seeking behavior and willingness to participate/continue in treatment Judgment: good as evidenced by help-seeking behavior and willingness to participate in treatment PHYSICAL/CONSULT/LAB FINDINGS: BP: 91 mmHg/62 mmHg (01/15/23 0700) Pulse: 89 (01/15/23 0700) Temp: 36.61 C (01/15/23 07) Resp: 16 (01/15/23 0700) SpO2: 95 % (01/06/23 0600) Labs reviewed as indicated below: Recent Results (from the past 48 hour(s)) GLUCOSE METER, POINT OF CARE Collection Time: 01/13/23 4:50 PM Result Value Ref Range Glucose Meter 179 (H) 70 - 120 mg/dL FECAL OCCULT BLOOD, EIA Collection Time: 01/13/23 6:16 PM Result Value Ref Range iFOBT Negative Negative GLUCOSE METER, POINT OF CARE Collection Time: 01/13/23 7:56 PM Result Value Ref Range Glucose Meter 118 70 - 120 mg/dL GLUCOSE METER, POINT OF CARE Collection Time: 01/14/23 7:20 AM Result Value Ref Range Glucose Meter 177 (H) 70 - 120 mg/dL GLUCOSE METER, POINT OF CARE Collection Time: 01/14/23 12:03 PM Result Value Ref Range Glucose Meter 90 70 - 120 mg/dL GLUCOSE METER, POINT OF CARE Collection Time: 01/14/23 4:56 PM Result Value Ref Range Glucose Meter 166 (H) 70 - 120 mg/dL GLUCOSE METER, POINT OF CARE Collection Time: 01/14/23 8:01 PM Result Value Ref Range Glucose Meter 126 (H) 70 - 120 mg/dL GLUCOSE METER, POINT OF CARE Collection Time: 01/15/23 6:46 AM Result Value Ref Range Glucose Meter 230 (H) 70 - 120 mg/dL GLUCOSE METER, POINT OF CARE Collection Time: 01/15/23 11:15 AM Result Value Ref Range Glucose Meter 267 (H) 70 - 120 mg/dL DANGEROUSNESS TO SELF/OTHERS ASSESSMENT UPDATE: dangerousness to self/others has lessened and is now rated minimal risk PATIENT REPORTED DEPRESSION SCREENING (PHQ9): PHQ9 Survey Results Last 24hours (since 01/14/2023) None DIAGNOSIS: Principal Problem: Bipolar 2 disorder, major depressive episode (HCC) Active Problems: Hypothyroidism Severe protein-calorie malnutrition (HCC) Opioid use disorder Compulsive skin picking Methamphetamine abuse (HCC) Chronic osteomyelitis of right hand including fingers (HCC) Uncontrolled diabetes mellitus with hyperglycemia (HCC) Social anxiety disorder Nocturnal diarrhea BRBPR (bright red blood per rectum) Resolved Problems: Dehydration Orthostatic hypotension Syncope ASSESSMENT: Gil Irby is a 37 year old male with a past psychiatric history of ADHD and depression who was admitted to the 7A Inpatient Psychiatric Unit at [facility] ([facility]) on 12/27/2022 on a 201 (voluntary) commitment for depression with suicidal ideation. Gil continues to struggle with depression and anxiety and did not feel the addition of Buspar was helpful. He was agreeable to trying Zoloft instead to target both complaints. He is compliant with medications and showing improved participation in milieu programming. Would like to go to inpatient rehab after hospital discharge. PLAN: Reviewed with Dr. Jean and treatment team. Inpatient psychiatric care is necessary because of suicidal potential . Plan of care includes: 1) 201 (voluntary) commitment 2) Safety Q15 minute checks 3) Supportive milieu and group therapy 4) Safe discharge planning Referrals to inpatient rehab being pursued by CM Proving difficult due to medical needs of patient - awaiting decision from several medical based rehab's Referral for outpatient healthcare educator Referral for OP orthopaedic f/u appointment 5) Psychotropic Medications Discontinue Buspar 10mg BID d/t ineffectiveness Gabapentin 300mg TID Remeron Soltab 30mg QHS Seroquel 200mg QHS Increase: Zoloft 125mg Daily for depression/anxiety 6) Medical Needs Continue home medications as prescribed Appreciate internal medicine's and endocrinologies co management of hyperglycemia. Insulin regimen changed to address persistent hyperglycemia. Increased dose of Synthroid from 88mcg to 100mcg as TSH was 60 on labs today. Added Bentyl for abdominal cramping 7) Labs/Imaging None pending. On antipsychotic therapy: HgbA1c 12/29/22 - 11.3% Lipid panel 12/29/22 - mildly elevated LDL Treatment options and alternatives reviewed with patient and they agree with the above plan. Information about current medications was provided to the patient including reasons why medicationsare being used, risks, benefits, side effects and alternatives to treatment (including no treatment). Signature: Palak Arroyo PA-C 01/15/2023 3:20 PM Associated attestation - Coco Jean MD - 01/16/2023 8:14 AM EDT I saw and evaluated the patient on date of service referenced in note and have supervised the performance of a medically appropriate history and/or exam by the Physician Real Estate Transaction Coordinator. I have reviewed the documentation and agree, with exceptions/additions as noted below: none Coco Jean MD Attending psychiatrist 01/16/23 8:13 AM * Servando Ratliff MD - 01/14/2023 7:50 AM EDT PHYSICIAN PROGRESS NOTE INPATIENT PSYCHIATRY [facility] [address] Name: Gil Irby Location: [facility] [id number] Date: 01/14/2023 Time: 7:51 AM Patient location: HOSPITAL. I was not in a hospital or clinic location. After connecting through [employer], patient was identified by name and date of and/or wristband checked. Patient (or authorized legal novelties sales representative) was then informed that this was a Telemedicine visit and was being conducted confidentially over secure lines. My office door was closed. No one else was in the room with me.. Patient acknowledged consent and understanding of privacy and security of the Telemedicine visit and gave permission to have a telemedicine presenter stay in the room in order to assist with the history and to conduct the exam as needed. I informed the patient that I have reviewed their record in [employer] and presented the opportunity for them to ask any questions regarding the visit today. The patient agreed to participate. Commitment Status: 201 Patient seen in Treatment Team: seen by psychiatrist/physician Review: Nursing Notes Past 24 Hours Reviewed SUBJECTIVE: Patient seen, case discussed with staff and records reviewed. Patient had no behavior issues in the last 24 hours on the unit. Patient stated that he does not feel good with still had diarrhea last night. However he reports that his depression better with slept well last night and has agood appetite. He denies any depressive symptoms with no suicidal or homicidal ideation reported. Patient denies any AV hallucinations, paranoid delusions or manic symptoms. Patient has been tolerating his psychotropic medication without any side effects. Medication Compliance: compliant with all prescribed medicines Participating in Treatment: Attends programs, groups and activities MENTAL STATUS EVALUATION: Appearance: casually dressed Muscle strength and tone: Not tested Gait and Station: no abnormalities noted Personal Presentation: candid and cooperative. Behavior: appropriate within the milieu and cooperative Speech: normal, rate, tone and volume and goal directed Mood: anxious Affect: type - anxious; range - constricted; lability - no Associations: loose Thought Process: goal directed Abstract Reasoning: not tested Thought Content: denies suicidal ideations, homicidal ideations, auditory hallucinations, visual hallucinations, delusions, impulsivity to act out or preoccupation with violence Orientation: alert and oriented to person, place, time and situation Recent and remote memory as evidenced by recall of recent circumstances and remote life events: intact Language as evidenced by ability to repeat phrase and name object: intact Fund of knowledge as evidenced by vocabulary and current/historical events: intact Attention span/concentration as evidenced by: ability to sustain attention to examiner - intact Insight: fair Judgment: fair PHYSICAL/CONSULT/LAB FINDINGS: BP: 105 mmHg/69 mmHg (01/14/23599) Pulse: 89 (01/14/23599) Temp: 36.72 C (01/14/23599) Resp: 16 (10/29/23 0600) SpO2: 95 % (01/06/23 0600) Labs reviewed as indicated below: Results for orders placed or performed during the hospital encounter of 12/27/22 LIPID PANEL WITH DIRECT LDL IF TG IS HIGH Result Value Ref Range Triglycerides 96 <=174 mg/dL Cholesterol 196 <200 mg/dL HDL Cholesterol 43 >39 mg/dL Non-HDL Cholesterol 153 <=159 mg/dL LDL Cholesterol 134 (H) <=129 mg/dL Results for orders placed or performed in visit on 06/28/22 LDL CHOLESTEROL (DIRECT MEASURE) Result Value Ref Range LDL Cholesterol (Direct Measure) 116 <=129 mg/dL Lab Results Component Value Date/Time HDL CHOLESTEROL - [facility] 43 12/29/2022 12:05 PM HDL CHOLESTEROL - [facility] 44 12/30/2012 11:27 AM Lab Results Component Value Date/Time CHOLESTEROL - [facility] 196 12/29/2022 12:05 PM CHOLESTEROL - [facility] 313 (H) 12/30/2012 11:27 AM CHOLESTEROL-HDL RATIO - [facility] 7.1 12/30/2012 11:27 AM Lab Results Component Value Date/Time GLUCOSE - [facility] 216 (H) 01/12/2023 08:34 PM GLUCOSE - [facility] 193 (H) 12/21/2019 01:49 PM GLUCOSE METER POCT - [facility] 177 (H) 01/14/2023 07:20 AM GLUCOSE METER POCT - [facility] 295 (H) 12/21/2019 12:40 PM GLUCOSE POCT - [facility] 378 (H) 07/16/2015 10:14 AM GLUCOSE, URINE - [facility] 500 (A) 12/27/2022 02:32 PM GLUCOSE, URINE - [facility] 1,000 (A) 07/16/2015 12:30 PM Lab Results Component Value Date/Time HEMOGLOBIN A1C - [facility] 11.3 (H) 12/29/2022 05:17 AM HEMOGLOBIN A1C - [facility] 11.0 (H) 12/09/2014 06:53 AM HEMOGLOBIN I-STAT POCT - [facility] 16.0 07/16/2015 10:14 AM HEMOGLOBIN, [id number] 11.4 (A) 04/28/2013 12:00 AM HEMOGLOBIN, WHOLE BLOOD - [facility] 12.9 (L) 12/27/2022 12:35 PM HEMOGLOBIN, WHOLE BLOOD - [facility] 15.3 07/16/2015 10:10 AM No components found for: "[id number]" No results found for: "MICROALBU" Lab Results Component Value Date/Time CREATININE - [facility] 1.4 (H) 01/12/2023 08:34 PM CREATININE - [facility] 1.1 12/21/2019 01:49 PM CREATININE, RANDOM URINE - [facility] 49 11/01/2021 03:01 PM Lab Results Component Value Date/Time ALT - [facility] 53 (H) 01/12/2023 08:34 PM ALT - [facility] 19 12/21/2019 01:49 PM Hydrocortisone 2.5 % cream Cholestyramine Light (Prevalite) oral powder 4 g house antacid (Mi-Acid II) oral susp 15 mL insulin aspart (NovoLOG) inj Insulin Glargine (Lantus) inj 18 Units insulin aspart (NovoLOG) inj Lactobacillus (Culturelle) cap 1 Capsule Nutrisource (soluble fiber packet) insulin aspart (NovoLOG) inj insulin aspart (NovoLOG) inj levothyroxine (Levoxyl) tab 100 mcg ondansetron (Zofran) tab 4 mg sertraline (Zoloft) tab 100 mg home medication stored in pharmacy Nicotine (Nicoderm CQ) 14 MG/24HR patch 1 Patch methADONE CONCentrated 10 mg/mL oral conc 107 mg mirtazapine ODT (Remeron Soltab) tab 30 mg Acetaminophen (Tylenol) tab 975 mg amoxicillin-clavulanate (Augmentin) tab 875 mg dextrose 50 % inj 25 mL dextrose 50 % inj 50 mL Gabapentin (Neurontin) cap 300 mg glucagon (Glucagen) inj 1 mg Glucose (Glutose 15) 40 % gel 15 g of glucose Glucose (Glutose 15) 40 % gel 30 g of glucose glucose chew tab 16 g guaiFENesin-dm (Robitussin DM) oral syrup 10 mL melatonin tab 3 mg midodrine (Proamatine) tab 10 mg QUEtiapine (SEROquel) tab 200 mg sulfamethoxazole-trimethoprim DS (Bactrim DS) 800-160 MG 1 Tablet DANGEROUSNESS TO SELF/OTHERS ASSESSMENT UPDATE: no change PATIENT REPORTED DEPRESSION SCREENING (PHQ9): PHQ9 Survey Results Last 24hours (since 01/13/2023) None Patient is a 37-year-old male with past history of ADHD and depression admitted to inpatient unit as a voluntary patient for depressed mood and suicidal ideation currently showing improvement. He hasbeen sleeping well with good appetite and tolerating medication without any side effects. He has insight into his underlying substance abuse. DIAGNOSIS: Bipolar 1 disorder with recent episode depressed severe without psychotic features. Hypothyroidism. Opioids use disorder. Social anxiety disorder. TREATMENT PLAN: Continue with inpatient treatment as a voluntary patient because of suicidal potential. Supportive milieu and group therapy. Safety checks Q 15 minutes. Continue with medication management that includes Gabapentin 300 mg three times daily. Mirtazapine 30 mg p.o. q.h.s.. Quetiapine 200 mg p.o. q.h.s.. Sertraline 100 mg p.o. daily. P.r.n. medications for anxiety, insomnia and agitation. Drug and alcohol rehab referral. Safe discharge and aftercare plan. Information about current medications was provided to the patient including reasons why medicationsare being used: yes Signature: Physician - Servando Ratliff MD * Servando Ratliff MD - 01/13/2023 8:19 AM EDT PHYSICIAN PROGRESS NOTE INPATIENT PSYCHIATRY [facility] [address] Name: Gil Irby Location: [facility] [id number] Date: 01/13/2023 Time: 8:20 AM Patient location: HOSPITAL. I was not in a hospital or clinic location. After connecting through [employer], patient was identified by name and date of and/or wristband checked. Patient (or authorized legal novelties sales representative) was then informed that this was a Telemedicine visit and was being conducted confidentially over secure lines. My office door was closed. No one else was in the room with me.. Patient acknowledged consent and understanding of privacy and security of the Telemedicine visit and gave permission to have a telemedicine presenter stay in the room in order to assist with the history and to conduct the exam as needed. I informed the patient that I have reviewed their record in [employer] and presented the opportunity for them to ask any questions regarding the visit today. The patient agreed to participate. Commitment Status: 201 Patient seen in Treatment Team: seen by psychiatrist/physician Review: Nursing Notes Past 24 Hours Reviewed SUBJECTIVE: Patient seen, case discussed with staff and records reviewed. Staff reported that patient in the last 24 hours had no behavior issues had been doing well. Patient stated that he has beendoing pretty good although had diarrhea yesterday. He reports he has been sleeping well good appetite with depression manageable. He denies any suicidal or homicidal ideation with no AV hallucinations or manic symptoms reported. Patient talked about his disposition plan with awaiting acceptance to a drug and alcohol rehab facility. Discussed with him the results of his C diff which came back negative. Encouraged patient to attend groups. Medication Compliance: compliant with all prescribed medicines Participating in Treatment: Attends programs, groups and activities MENTAL STATUS EVALUATION: Appearance: casually dressed Muscle strength and tone: Not tested. Gait and Station: no abnormalities noted Personal Presentation: candid and cooperative. Behavior: appropriate within the milieu and cooperative Speech: normal, rate, tone and volume and goal directed Mood: depressed Affect: type - anxious; range - full range; lability - no Associations: intact Thought Process: goal directed Abstract Reasoning: not tested Thought Content: denies suicidal ideations, homicidal ideations, auditory hallucinations, visual hallucinations, delusions, impulsivity to act out or preoccupation with violence Orientation: alert and oriented to person, place, time and situation Recent and remote memory as evidenced by recall of recent circumstances and remote life events: intact Language as evidenced by ability to repeat phrase and name object: intact Fund of knowledge as evidenced by vocabulary and current/historical events: intact Attention span/concentration as evidenced by: ability to sustain attention to examiner - intact Insight: fair Judgment: fair PHYSICAL/CONSULT/LAB FINDINGS: BP: 95 mmHg/3 mmHg (01/13/23 0500) Pulse: 92 (01/13/23 0500) Temp: 36.72 C (01/13/23 0500) Resp: 17 (01/13/23 0500) SpO2: 95 % (01/06/23 0600) Labs reviewed as indicated below: Results for orders placed or performed during the hospital encounter of 12/27/22 LIPID PANEL WITH DIRECT LDL IF TG IS HIGH Result Value Ref Range Triglycerides 96 <=174 mg/dL Cholesterol 196 <200 mg/dL HDL Cholesterol 43 >39 mg/dL Non-HDL Cholesterol 153 <=159 mg/dL LDL Cholesterol 134 (H) <=129 mg/dL Results for orders placed or performed in visit on 06/28/22 LDL CHOLESTEROL (DIRECT MEASURE) Result Value Ref Range LDL Cholesterol (Direct Measure) 116 <=129 mg/dL Lab Results Component Value Date/Time HDL CHOLESTEROL - [facility] 43 12/29/2022 12:05 PM HDL CHOLESTEROL - [facility] 44 12/30/2012 11:27 AM Lab Results Component Value Date/Time CHOLESTEROL - [facility] 196 12/29/2022 12:05 PM CHOLESTEROL - [facility] 313 (H) 12/30/2012 11:27 AM CHOLESTEROL-HDL RATIO - [facility] 7.1 12/30/2012 11:27 AM Lab Results Component Value Date/Time GLUCOSE - [facility] 216 (H) 01/12/2023 08:34 PM GLUCOSE - [facility] 193 (H) 12/21/2019 01:49 PM GLUCOSE METER POCT - [facility] 82 01/13/2023 07:06 AM GLUCOSE METER POCT - [facility] 295 (H) 12/21/2019 12:40 PM GLUCOSE POCT - [facility] 378 (H) 07/16/2015 10:14 AM GLUCOSE, URINE - [facility] 500 (A) 12/27/2022 02:32 PM GLUCOSE, URINE - [facility] 1,000 (A) 07/16/2015 12:30 PM Lab Results Component Value Date/Time HEMOGLOBIN A1C - [facility] 11.3 (H) 12/29/2022 05:17 AM HEMOGLOBIN A1C - [facility] 11.0 (H) 12/09/2014 06:53 AM HEMOGLOBIN I-STAT POCT - [facility] 16.0 07/16/2015 10:14 AM HEMOGLOBIN, [id number] 11.4 (A) 04/28/2013 12:00 AM HEMOGLOBIN, WHOLE BLOOD - [facility] 12.9 (L) 12/27/2022 12:35 PM HEMOGLOBIN, WHOLE BLOOD - [facility] 15.3 07/16/2015 10:10 AM No components found for: "[id number]" No results found for: "MICROALBU" Lab Results Component Value Date/Time CREATININE - [facility] 1.4 (H) 01/12/2023 08:34 PM CREATININE - [facility] 1.1 12/21/2019 01:49 PM CREATININE, RANDOM URINE - [facility] 49 11/01/2021 03:01 PM Lab Results Component Value Date/Time ALT - [facility] 53 (H) 01/12/2023 08:34 PM ALT - [facility] 19 12/21/2019 01:49 PM Cholestyramine Light (Prevalite) oral powder 4 g Hydrocortisone 2.5 % cream house antacid (Mi-Acid II) oral susp 15 mL insulin aspart (NovoLOG) inj Insulin Glargine (Lantus) inj 18 Units insulin aspart (NovoLOG) inj Lactobacillus (Culturelle) cap 1 Capsule Nutrisource (soluble fiber packet) insulin aspart (NovoLOG) inj insulin aspart (NovoLOG) inj levothyroxine (Levoxyl) tab 100 mcg ondansetron (Zofran) tab 4 mg sertraline (Zoloft) tab 100 mg home medication stored in pharmacy Nicotine (Nicoderm CQ) 14 MG/24HR patch 1 Patch methADONE CONCentrated 10 mg/mL oral conc 107 mg mirtazapine ODT (Remeron Soltab) tab 30 mg Acetaminophen (Tylenol) tab 975 mg amoxicillin-clavulanate (Augmentin) tab 875 mg dextrose 50 % inj 25 mL dextrose 50 % inj 50 mL Gabapentin (Neurontin) cap 300 mg glucagon (Glucagen) inj 1 mg Glucose (Glutose 15) 40 % gel 15 g of glucose Glucose (Glutose 15) 40 % gel 30 g of glucose glucose chew tab 16 g guaiFENesin-dm (Robitussin DM) oral syrup 10 mL melatonin tab 3 mg midodrine (Proamatine) tab 10 mg QUEtiapine (SEROquel) tab 200 mg sulfamethoxazole-trimethoprim DS (Bactrim DS) 800-160 MG 1 Tablet DANGEROUSNESS TO SELF/OTHERS ASSESSMENT UPDATE: no change PATIENT REPORTED DEPRESSION SCREENING (PHQ9): PHQ9 Survey Results Last 24hours (since 01/12/2023) None Patient is a 37-year-old male with past history of ADHD and depression admitted to inpatient unit as a voluntary patient for depressed mood and suicidal ideation currently showing improvement. He hasbeen sleeping well with good appetite and tolerating medication without any side effects. He has insight into his underlying substance abuse. DIAGNOSIS: Bipolar 1 disorder with recent episode depressed severe without psychotic features. Hypothyroidism. Opioids use disorder. Social anxiety disorder. TREATMENT PLAN: Continue with inpatient treatment as a voluntary patient because of suicidal potential. Supportive milieu and group therapy. Safety checks Q 15 minutes. Continue with medication management that includes Gabapentin 300 mg three times daily. Mirtazapine 30 mg p.o. q.h.s.. Quetiapine 200 mg p.o. q.h.s.. Sertraline 100 mg p.o. daily. Drug and alcohol rehab referral. Safe discharge and aftercare plan. Information about current medications was provided to the patient including reasons why medicationsare being used: yes Signature: Physician - Servando Ratliff MD * Sample, Palak Sahu PA-C - 01/12/2023 1:26 PM EDT PHYSICIAN PROGRESS NOTE INPATIENT PSYCHIATRY [address] [address] Name: Gil Irby Location: [facility] [id number] Date: 01/12/2023 Time: 1:26 PM Commitment Status: 201 Review: Case Reviewed in Treatment Team and Nursing Notes Past 24 Hours Reviewed SUBJECTIVE: Gil Irby is seen for follow up today. Chart reviewed. No acute events through the night. Gil is doing well overall. Has been withdrawn to his room more in the las 48 hours as he feels physically ill. Endorses body aches, rhinorrhea, and nausea, and diarrhea. Encouraged him to speak with medicine when they see him as follow up about persistent diarrhea. His mood is described as "doing good". Depression is mild. Rated a 2/10 (with 10 being the worst). Anxiety is mild. Rated a2/10 (with 10 being the worst). He is coping well and these are manageable numbers for him. Denies suicidal ideation, homicidal ideation, auditory or visual hallucinations, or delusions. Sleep is good. Appetite is "awesome." He is attending groups when able, but has been feeling ill. Tolerating hismedications well without side effects. Denies fatigue, headache, dizziness, changes in vision, chest pain, shortness of breath, vomiting, dysuria, constipation, abdominal pain, tremors, abnormal facia l movements, or restlessness. Visits with his have been going well. He is hoping to be discharged to rehab soon. Medication Compliance: compliant with all prescribed medicines PRN Medication Utilization: None in the last 24 hours. Participating in Treatment: Improved participation in milieu programming/investment in treatment Current Medication List: Current Facility-Administered Medications Medication Dose Route Frequency Provider house antacid (Mi-Acid II) oral susp 15 mL 15 mL Oral Q4H PRN Coco Jean MD insulin aspart (NovoLOG) inj Subcutaneous With Meals and HS Reji Brothers MD Insulin Glargine (Lantus) inj 18 Units 18 Units Subcutaneous HS insulin Reji Brothers MD loperamide (Imodium) cap 4 mg 4 mg Oral TID(AM/NOON/HS) Nery Collier PA-C insulin aspart (NovoLOG) inj Subcutaneous Lunch Nery Collier PA-C Lactobacillus (Culturelle) cap 1 Capsule 1 Capsule Oral BID (Noon, 1700) Nery Collier PA-C Nutrisource (soluble fiber packet) 1 Packet Oral Daily(AM) Nery Collier PA-C insulin aspart (NovoLOG) inj Subcutaneous Breakfast Jordy Chowdhury, DO insulin aspart (NovoLOG) inj Subcutaneous Dinner Jordy Chwodhury Ed, DO levothyroxine (Levoxyl) tab 100 mcg 100 mcg Oral Daily 0630 Jordy Chowdhury, DO ondansetron (Zofran) tab 4 mg 4 mg Oral Q6H PRN Coco Jean MD sertraline (Zoloft) tab 100 mg 100 mg Oral Daily(AM) Palak Arroyo PA-C home medication stored in pharmacy Does Not Apply Daily(AM) Coco Jean MD Nicotine (Nicoderm CQ) 14 MG/24HR patch 1 Patch 1 Patch Transdermal Daily(AM) Coco Jean MD methADONE CONCentrated 10 mg/mL oral conc 107 mg 107 mg Oral Daily(AM) Marlon Banda MD mirtazapine ODT (Remeron Soltab) tab 30 mg 30 mg Oral HS Marlon Banda MD Acetaminophen (Tylenol) tab 975 mg 975 mg Oral Q6H PRN Cari Navarro PA-C amoxicillin-clavulanate (Augmentin) tab 875 mg 875 mg Oral BID(AM/PM) Cari Navarro PA-C dextrose 50 % inj 25 mL 25 mL IV Push PRN Cari Navarro PA-C dextrose 50 % inj 50 mL 50 mL IV Push PRN Cari Navarro PA-C Gabapentin (Neurontin) cap 300 mg 300 mg Oral TID(AM/NOON/HS) Cari Navarro PA-C glucagon (Glucagen) inj 1 mg 1 mg Intramuscular PRN Cari Navarro PA-C Glucose (Glutose 15) 40 % gel 15 g of glucose 15 g of glucose Oral PRN Cari Navarro PA-C Glucose (Glutose 15) 40 % gel 30 g of glucose 30 g of glucose Oral PRN Cari Navarro PA-C glucose chew tab 16 g 16 g Oral PRN Cari Navarro PA-C guaiFENesin-dm (Robitussin DM) oral syrup 10 mL 10 mL Oral Q6H PRN Cari Navarro PA-C melatonin tab 3 mg 3 mg Oral HS PRN Cari Navarro PA-C midodrine (Proamatine) tab 10 mg 10 mg Oral TID(AM/NOON/HS) Cari Navarro PA-C QUEtiapine (SEROquel) tab 200 mg 200 mg Oral HS Cari Navarro PA-C sulfamethoxazole-trimethoprim DS (Bactrim DS) 800-160 MG 1 Tablet 1 Tablet Oral BID(AM/PM) Cari Navarro PA-C MENTAL STATUS EVALUATION: Appearance: age-appropriate, bearded, and casually dressed, wearing beanie hat Muscle strength and tone: normal muscle strength and tone Gait and Station: steady with use of cane and leg brace Personal Presentation: candid and cooperative Behavior: appropriate and cooperative, good eye contact Speech: normal, rate, tone and volume Mood: "doing good" Affect: type - euthymic; range - restricted ; lability - no Associations: intact Thought Process: goal directed and logical Abstract Reasoning: not tested Thought Content: (-) SI, HI, no overt paranoia or delusions Perception: (-) AVH no disturbances appreciated Orientation: alert and oriented to person, place, time and situation Recent and remote memory as evidenced by recall of recent circumstances and remote life events: intact Language as evidenced by ability to repeat phrase and name object: intact Fund of knowledge as evidenced by vocabulary and current/historical events: intact Attention span/concentration as evidenced by: ability to sustain attention to examiner - intact Insight: good as evidenced by help-seeking behavior and willingness to participate/continue in treatment Judgment: good as evidenced by help-seeking behavior and willingness to participate in treatment PHYSICAL/CONSULT/LAB FINDINGS: BP: 84 mmHg/62 mmHg (01/12/23599) Pulse: 94 (01/12/23599) Temp: 37.61 C (01/12/23599) Resp: 16 (01/12/23599) SpO2: 95 % (01/06/23599) Labs reviewed as indicated below: Recent Results (from the past 48 hour(s)) GLUCOSE METER, POINT OF CARE Collection Time: 01/10/23 4:26 PM Result Value Ref Range Glucose Meter 218 (H) 70 - 120 mg/dL GLUCOSE METER, POINT OF CARE Collection Time: 01/10/23 7:44 PM Result Value Ref Range Glucose Meter 122 (H) 70 - 120 mg/dL GLUCOSE METER, POINT OF CARE Collection Time: 01/10/23 8:51 PM Result Value Ref Range Glucose Meter 200 (H) 70 - 120 mg/dL GLUCOSE METER, POINT OF CARE Collection Time: 01/11/23 2:24 AM Result Value Ref Range Glucose Meter 267 (H) 70 - 120 mg/dL GLUCOSE METER, POINT OF CARE Collection Time: 01/11/23 7:39 AM Result Value Ref Range Glucose Meter 222 (H) 70 - 120 mg/dL GLUCOSE METER, POINT OF CARE Collection Time: 01/11/23 12:03 PM Result Value Ref Range Glucose Meter 153 (H) 70 - 120 mg/dL GLUCOSE METER, POINT OF CARE Collection Time: 01/11/23 4:51 PM Result Value Ref Range Glucose Meter 252 (H) 70 - 120 mg/dL GLUCOSE METER, POINT OF CARE Collection Time: 01/11/23 8:45 PM Result Value Ref Range Glucose Meter 212 (H) 70 - 120 mg/dL GLUCOSE METER, POINT OF CARE Collection Time: 01/12/23 2:06 AM Result Value Ref Range Glucose Meter 303 (H) 70 - 120 mg/dL GLUCOSE METER, POINT OF CARE Collection Time: 01/12/23 7:19 AM Result Value Ref Range Glucose Meter 150 (H) 70 - 120 mg/dL GLUCOSE METER, POINT OF CARE Collection Time: 01/12/23 12:04 PM Result Value Ref Range Glucose Meter 157 (H) 70 - 120 mg/dL DANGEROUSNESS TO SELF/OTHERS ASSESSMENT UPDATE: dangerousness to self/others has lessened and is now rated minimal risk PATIENT REPORTED DEPRESSION SCREENING (PHQ9): PHQ9 Survey Results Last 24hours (since 01/11/2023) None DIAGNOSIS: Principal Problem: Bipolar 2 disorder, major depressive episode (HCC) Active Problems: Hypothyroidism Severe protein-calorie malnutrition (HCC) Opioid use disorder Compulsive skin picking Methamphetamine abuse ([facility]) Chronic osteomyelitis of right hand including fingers ([facility]) Uncontrolled diabetes mellitus with hyperglycemia ([facility]) Social anxiety disorder Nocturnal diarrhea Resolved Problems: Dehydration Orthostatic hypotension Syncope ASSESSMENT: Gil Irby is a 37 year old male with a past psychiatric history of ADHD and depression who was admitted to the 7A Inpatient Psychiatric Unit at [facility] ([facility]) on 12/27/2022 on a 201 (voluntary) commitment for depression with suicidal ideation. Gil continues to struggle with depression and anxiety and did not feel the addition of Buspar was helpful. He was agreeable to trying Zoloft instead to target both complaints. He is compliant with medications and showing improved participation in milieu programming. Would like to go to inpatient rehab after hospital discharge. PLAN: Reviewed with Dr. Jean and treatment team. Inpatient psychiatric care is necessary because of suicidal potential . Plan of care includes: 1) 201 (voluntary) commitment 2) Safety Q15 minute checks 3) Supportive milieu and group therapy 4) Safe discharge planning Referrals to inpatient rehab being pursued by CM Proving difficult due to medical needs of patient Referral for outpatient healthcare educator Referral for OP orthopaedic f/u appointment 5) Psychotropic Medications Discontinue Buspar 10mg BID d/t ineffectiveness Gabapentin 300mg TID Remeron Soltab 30mg QHS Seroquel 200mg QHS Zoloft 100mg Daily for depression/anxiety 6) Medical Needs Continue home medications as prescribed Appreciate internal medicine's and endocrinologies co management of hyperglycemia. Insulin regimen changed to address persistent hyperglycemia. Increased dose of Synthroid from 88mcg to 100mcg as TSH was 60 on labs today. 7) Labs/Imaging None pending. On antipsychotic therapy: HgbA1c 12/29/22 - 11.3% Lipid panel 12/29/22 - mildly elevated LDL Treatment options and alternatives reviewed with patient and they agree with the above plan. Information about current medications was provided to the patient including reasons why medicationsare being used, risks, benefits, side effects and alternatives to treatment (including no treatment). Signature: Palak Arroyo PA-C 01/12/2023 1:31 PM Associated attestation - Coco Jean MD - 01/13/2023 12:56 AM EDT I saw and evaluated the patient on date of service referenced in note and have supervised the performance of a medically appropriate history and/or exam by the Physician Real Estate Transaction Coordinator. I have reviewed the documentation and agree, with exceptions/additions as noted below: none Coco Jean MD Attending psychiatrist 01/13/23 12:55 AM * Palak Arroyo PA-C - 01/11/2023 7:52 AM EDT PHYSICIAN PROGRESS NOTE INPATIENT PSYCHIATRY [facility] [id number] Name: Gil Irby Location: [facility] [id number] Date: 01/11/2023 Time: 7:52 AM Commitment Status: 201 Review: Case Reviewed in Treatment Team and Nursing Notes Past 24 Hours Reviewed SUBJECTIVE: Gil Irby is seen for follow up today. Chart reviewed. No acute events through the night. Gil continues to do well on the unit. Depression is mild. Rated a 2/10 (with 10 being theworst). Anxiety is also mild. Rated a 2/10 (with 10 being the worst). Denies suicidal ideation, homicidal ideation, auditory or visual hallucinations, or delusions. Reports good sleep and appetite. Continues to complain of nocturnal diarrhea, refractory to imodium. Encouraged he let internal medicine know this when they see him today. Denies other side effects such as fatigue, headache, dizziness, changes in vision, chest pain, shortness of breath, nausea, vomiting, dysuria, constipation, abdominal pain, tremors, abnormal facial movements, or restlessness. He visited with his last night and it was a very good visit. He is ready to take the next step in his treatment and go to inpatient rehab. Medication Compliance: compliant with all prescribed medicines PRN Medication Utilization: None in the last 24 hours. Participating in Treatment: Improved participation in milieu programming/investment in treatment Current Medication List: Current Facility-Administered Medications Medication Dose Route Frequency Provider house antacid (Mi-Acid II) oral susp 15 mL 15 mL Oral Q4H PRN Coco Jean MD insulin aspart (NovoLOG) inj Subcutaneous With Meals and HS Reji Brothers MD Insulin Glargine (Lantus) inj 18 Units 18 Units Subcutaneous HS insulin Reji Brothers MD loperamide (Imodium) cap 4 mg 4 mg Oral TID(AM/NOON/HS) Nery Collier PA-C insulin aspart (NovoLOG) inj Subcutaneous Lunch Nery Collier PA-C Lactobacillus (Culturelle) cap 1 Capsule 1 Capsule Oral BID (Noon, 1700) Nery Collier PA-C Nutrisource (soluble fiber packet) 1 Packet Oral Daily(AM) Nery Collier PA-C insulin aspart (NovoLOG) inj Subcutaneous Breakfast Jordy Ednate Chowdhury, DO insulin aspart (NovoLOG) inj Subcutaneous Dinner Jordy Ed Luciana, DO levothyroxine (Levoxyl) tab 100 mcg 100 mcg Oral Daily 0630 Jordy Ednate Voray, DO ondansetron (Zofran) tab 4 mg 4 mg Oral Q6H PRN Coco Jean MD sertraline (Zoloft) tab 100 mg 100 mg Oral Daily(AM) Palak Arroyo PA-C home medication stored in pharmacy Does Not Apply Daily(AM) Coco Jean MD Nicotine (Nicoderm CQ) 14 MG/24HR patch 1 Patch 1 Patch Transdermal Daily(AM) Coco Jean MD methADONE CONCentrated 10 mg/mL oral conc 107 mg 107 mg Oral Daily(AM) Marlon Banda MD mirtazapine ODT (Remeron Soltab) tab 30 mg 30 mg Oral HS Marlon Banda MD Acetaminophen (Tylenol) tab 975 mg 975 mg Oral Q6H PRN Cari Navarro PA-C amoxicillin-clavulanate (Augmentin) tab 875 mg 875 mg Oral BID(AM/PM) Cari Navarro PA-C dextrose 50 % inj 25 mL 25 mL IV Push PRN Cari Navarro PA-C dextrose 50 % inj 50 mL 50 mL IV Push PRN Cari Navarro PA-C Gabapentin (Neurontin) cap 300 mg 300 mg Oral TID(AM/NOON/HS) Cari Navarro PA-C glucagon (Glucagen) inj 1 mg 1 mg Intramuscular PRN Cari Navarro PA-C Glucose (Glutose 15) 40 % gel 15 g of glucose 15 g of glucose Oral PRN Cari Navarro PA-C Glucose (Glutose 15) 40 % gel 30 g of glucose 30 g of glucose Oral PRN Cari Navarro PA-C glucose chew tab 16 g 16 g Oral PRN Cari Navarro PA-C guaiFENesin-dm (Robitussin DM) oral syrup 10 mL 10 mL Oral Q6H PRN Cari Navarro PA-C melatonin tab 3 mg 3 mg Oral HS PRN Cari Navarro PA-C midodrine (Proamatine) tab 10 mg 10 mg Oral TID(AM/NOON/HS) Cari Navarro PA-C QUEtiapine (SEROquel) tab 200 mg 200 mg Oral HS Cari Navarro PA-C sulfamethoxazole-trimethoprim DS (Bactrim DS) 800-160 MG 1 Tablet 1 Tablet Oral BID(AM/PM) Cari Navarro PA-C MENTAL STATUS EVALUATION: Appearance: age-appropriate, bearded, and casually dressed, wearing beanie hat Muscle strength and tone: normal muscle strength and tone Gait and Station: steady with use of cane and leg brace Personal Presentation: candid and cooperative Behavior: appropriate and cooperative, good eye contact Speech: normal, rate, tone and volume Mood: "good" Affect: type - euthymic, with appropriate brightening; range - restricted ; lability - no Associations: intact Thought Process: goal directed and logical Abstract Reasoning: not tested Thought Content: (-) SI, HI, no overt paranoia or delusions Perception: (-) AVH no disturbances appreciated Orientation: alert and oriented to person, place, time and situation Recent and remote memory as evidenced by recall of recent circumstances and remote life events: intact Language as evidenced by ability to repeat phrase and name object: intact Fund of knowledge as evidenced by vocabulary and current/historical events: intact Attention span/concentration as evidenced by: ability to sustain attention to examiner - intact Insight: good as evidenced by help-seeking behavior and willingness to participate/continue in treatment Judgment: good as evidenced by help-seeking behavior and willingness to participate in treatment PHYSICAL/CONSULT/LAB FINDINGS: BP: 84 mmHg/55 mmHg (01/11/23599) Pulse: 92 (01/11/23599) Temp: 36.67 C (01/11/23599) Resp: 16 (01/11/23599) SpO2: 95 % (01/06/23599) Labs reviewed as indicated below: Recent Results (from the past 48 hour(s)) GLUCOSE METER, POINT OF CARE Collection Time: 01/09/23 11:33 AM Result Value Ref Range Glucose Meter 204 (H) 70 - 120 mg/dL GASTROINTESTINAL PATHOGEN PANEL PCR Collection Time: 01/09/23 1:49 PM Result Value Ref Range Campylobacter group by PCR Negative Negative Salmonella species by PCR Negative Negative Shigella species by PCR Negative Negative Vibrio group by PCR Negative Negative Yersinia enterocolitica by PCR Negative Negative Shiga Toxin 1 Gene by PCR Negative Negative Shiga Toxin 2 Gene by PCR Negative Negative Norovirus by PCR Negative Negative Rotavirus by PCR Negative Negative INFLUENZA A/B RSV SARS-COV2,PCR Collection Time: 01/09/23 1:49 PM Result Value Ref Range SARS-CoV-2 (COVID-19) Result Negative Negative Influenza A PCR Result Negative Negative Influenza B PCR Result Negative Negative RSV PCR Result Negative Negative GLUCOSE METER, POINT OF CARE Collection Time: 01/09/23 4:42 PM Result Value Ref Range Glucose Meter 139 (H) 70 - 120 mg/dL GLUCOSE METER, POINT OF CARE Collection Time: 01/09/23 7:59 PM Result Value Ref Range Glucose Meter 160 (H) 70 - 120 mg/dL GLUCOSE METER, POINT OF CARE Collection Time: 01/10/23 7:19 AM Result Value Ref Range Glucose Meter 111 70 - 120 mg/dL GLUCOSE METER, POINT OF CARE Collection Time: 01/10/23 11:35 AM Result Value Ref Range Glucose Meter 184 (H) 70 - 120 mg/dL GLUCOSE METER, POINT OF CARE Collection Time: 01/10/23 4:26 PM Result Value Ref Range Glucose Meter 218 (H) 70 - 120 mg/dL GLUCOSE METER, POINT OF CARE Collection Time: 01/10/23 7:44 PM Result Value Ref Range Glucose Meter 122 (H) 70 - 120 mg/dL GLUCOSE METER, POINT OF CARE Collection Time: 01/10/23 8:51 PM Result Value Ref Range Glucose Meter 200 (H) 70 - 120 mg/dL GLUCOSE METER, POINT OF CARE Collection Time: 01/11/23 2:24 AM Result Value Ref Range Glucose Meter 267 (H) 70 - 120 mg/dL GLUCOSE METER, POINT OF CARE Collection Time: 01/11/23 7:39 AM Result Value Ref Range Glucose Meter 222 (H) 70 - 120 mg/dL DANGEROUSNESS TO SELF/OTHERS ASSESSMENT UPDATE: dangerousness to self/others has lessened and is now rated minimal risk PATIENT REPORTED DEPRESSION SCREENING (PHQ9): PHQ9 Survey Results Last 24hours (since 01/10/2023) None DIAGNOSIS: Principal Problem: Bipolar 2 disorder, major depressive episode (HCC) Active Problems: Hypothyroidism Severe protein-calorie malnutrition (HCC) Opioid use disorder Compulsive skin picking Methamphetamine abuse (HCC) Chronic osteomyelitis of right hand including fingers (HCC) Uncontrolled diabetes mellitus with hyperglycemia (HCC) Social anxiety disorder Nocturnal diarrhea Resolved Problems: Dehydration Orthostatic hypotension Syncope ASSESSMENT: Gil Irby is a 37 year old male with a past psychiatric history of ADHD and depression who was admitted to the 7A Inpatient Psychiatric Unit at [facility] ([facility]) on 12/27/2022 on a 201 (voluntary) commitment for depression with suicidal ideation. Gil continues to struggle with depression and anxiety and did not feel the addition of Buspar was helpful. He was agreeable to trying Zoloft instead to target both complaints. He is compliant with medications and showing improved participation in milieu programming. Would like to go to inpatient rehab after hospital discharge. PLAN: Reviewed with Dr. Jean and treatment team. Inpatient psychiatric care is necessary because of suicidal potential . Plan of care includes: 1) 201 (voluntary) commitment 2) Safety Q15 minute checks 3) Supportive milieu and group therapy 4) Safe discharge planning Referrals to inpatient rehab being pursued by CM Proving difficult due to medical needs of patient Referral for outpatient healthcare educator Referral for OP orthopaedic f/u appointment 5) Psychotropic Medications Discontinue Buspar 10mg BID d/t ineffectiveness Gabapentin 300mg TID Remeron Soltab 30mg QHS Seroquel 200mg QHS Zoloft 100mg Daily for depression/anxiety 6) Medical Needs Continue home medications as prescribed Appreciate internal medicine's and endocrinologies co management of hyperglycemia. Insulin regimen changed to address persistent hyperglycemia. Increased dose of Synthroid from 88mcg to 100mcg as TSH was 60 on labs today. 7) Labs/Imaging None pending. On antipsychotic therapy: HgbA1c 12/29/22 - 11.3% Lipid panel 12/29/22 - mildly elevated LDL Treatment options and alternatives reviewed with patient and they agree with the above plan. Information about current medications was provided to the patient including reasons why medicationsare being used, risks, benefits, side effects and alternatives to treatment (including no treatment). Signature: Palak Arroyo PA-C 01/11/2023 11:26 AM Associated attestation - Coco Jean MD - 01/11/2023 11:58 AM EDT I saw and evaluated the patient on date of service referenced in note and have supervised the performance of a medically appropriate history and/or exam by the Physician Real Estate Transaction Coordinator. I have reviewed the documentation and agree, with exceptions/additions as noted below: none Coco Jean MD Attending psychiatrist 01/11/23 11:58 AM * Palak Arroyo PA-C - 01/10/2023 7:37 AM EDT PHYSICIAN PROGRESS NOTE INPATIENT PSYCHIATRY [facility] [address] Name: Gil Irby Location: [facility] [id number] Date: 01/10/2023 Time: 7:37 AM Commitment Status: 201 Review: Case Reviewed in Treatment Team and Nursing Notes Past 24 Hours Reviewed SUBJECTIVE: Gil Ibry is seen for follow up today. Chart reviewed. No acute events through the night. Gil is experiencing increased levels of stress this morning as his was [facility] yesterday and has been reaching out to him via phone. He explains that prior to him coming to the hospital he and his had . Says they have a lot to talk through that they could notdo when she was in [facility]. She plans to come for visitation today to continue talking through things,He is looking forward to this as he prefers to speak to her in person. One of the phone calls last evening was incredibly stressful as he could hear his fighting with his oldest daughter in the background. This was very stressful for him as there was nothing he could do to help the situation. He chose not to accept more phone calls from her last night because he could not handle the stress. He is feeling better about everything this morning and has been able to talk to his a few times. Today, despite aforementioned stressors, he is doing well and feels he is coping successfully. Depression is mild. Rated a 2/10 (with 10 being the worst). Anxiety is also mild. Rated a 4/10 (with 10 being the worst). Denies suicidal ideation, homicidal ideation, auditory or visual hallucinations, or delusions. Sleep and appetite are good. Tolerating medications well. Endorses body aches and rhinorrhea this morning that are new. Denies other side effects such as fatigue, headache, dizziness, changes in vision, chest pain, shortness of breath, nausea, vomiting, dysuria, constipation, abdominal pain, tremors, abnormal facial movements, or restlessness. Diarrhea is improving. Medication Compliance: compliant with all prescribed medicines PRN Medication Utilization: None in the last 24 hours. Participating in Treatment: Improved participation in milieu programming/investment in treatment Current Medication List: Current Facility-Administered Medications Medication Dose Route Frequency Provider insulin aspart (NovoLOG) inj Subcutaneous With Meals and HS Reji Brothers MD Insulin Glargine (Lantus) inj 18 Units 18 Units Subcutaneous HS insulin Reji Brothers MD loperamide (Imodium) cap 4 mg 4 mg Oral TID(AM/NOON/HS) Nery Collier PA-C insulin aspart (NovoLOG) inj Subcutaneous Lunch Nery Collier PA-C Lactobacillus (Culturelle) cap 1 Capsule 1 Capsule Oral BID (Noon, 1700) Nery Collier PA-C Nutrisource (soluble fiber packet) 1 Packet Oral Daily(AM) Nery Collier PA-C insulin aspart (NovoLOG) inj Subcutaneous Breakfast Jordy Ed Luciana, DO insulin aspart (NovoLOG) inj Subcutaneous Dinner Jordy Ed Luciana, DO levothyroxine (Levoxyl) tab 100 mcg 100 mcg Oral Daily 0630 Jordy Ed Luciana, DO ondansetron (Zofran) tab 4 mg 4 mg Oral Q6H PRN Coco Jean MD sertraline (Zoloft) tab 100 mg 100 mg Oral Daily(AM) Palak Arroyo PA-C home medication stored in pharmacy Does Not Apply Daily(AM) Coco Jean MD house antacid (Mi-Acid II) oral susp 15 mL 15 mL Oral Q4H PRN Coco Jean MD Nicotine (Nicoderm CQ) 14 MG/24HR patch 1 Patch 1 Patch Transdermal Daily(AM) Coco Jean MD methADONE CONCentrated 10 mg/mL oral conc 107 mg 107 mg Oral Daily(AM) Marlon Banda MD mirtazapine ODT (Remeron Soltab) tab 30 mg 30 mg Oral HS Marlon Banda MD Acetaminophen (Tylenol) tab 975 mg 975 mg Oral Q6H PRN Cari Navarro PA-C amoxicillin-clavulanate (Augmentin) tab 875 mg 875 mg Oral BID(AM/PM) Cari Navarro PA-C dextrose 50 % inj 25 mL 25 mL IV Push PRN Cari Navarro PA-C dextrose 50 % inj 50 mL 50 mL IV Push PRN Cari Navarro PA-C Gabapentin (Neurontin) cap 300 mg 300 mg Oral TID(AM/NOON/HS) Cari Navarro PA-C glucagon (Glucagen) inj 1 mg 1 mg Intramuscular PRN Cari Navarro PA-C Glucose (Glutose 15) 40 % gel 15 g of glucose 15 g of glucose Oral PRN Cari Navarro PA-C Glucose (Glutose 15) 40 % gel 30 g of glucose 30 g of glucose Oral PRN Cari Navarro PA-C glucose chew tab 16 g 16 g Oral PRN Cari Navarro PA-C guaiFENesin-dm (Robitussin DM) oral syrup 10 mL 10 mL Oral Q6H PRN Cari Navarro PA-C melatonin tab 3 mg 3 mg Oral HS PRN Cari Navarro PA-C midodrine (Proamatine) tab 10 mg 10 mg Oral TID(AM/NOON/HS) Cari Navarro PA-C QUEtiapine (SEROquel) tab 200 mg 200 mg Oral HS Cari Navarro PA-C sulfamethoxazole-trimethoprim DS (Bactrim DS) 800-160 MG 1 Tablet 1 Tablet Oral BID(AM/PM) Cari Navarro PA-C MENTAL STATUS EVALUATION: Appearance: age-appropriate, bearded, and casually dressed, wearing beanie hat Muscle strength and tone: normal muscle strength and tone Gait and Station: steady with use of cane and leg brace Personal Presentation: candid and cooperative Behavior: appropriate and cooperative, good eye contact Speech: normal, rate, tone and volume Mood: "good" Affect: type - euthymic, but anxious; range - restricted ; lability - no Associations: intact Thought Process: goal directed and logical Abstract Reasoning: not tested Thought Content: (-) SI, HI, no overt paranoia or delusions Perception: (-) AVH no disturbances appreciated Orientation: alert and oriented to person, place, time and situation Recent and remote memory as evidenced by recall of recent circumstances and remote life events: intact Language as evidenced by ability to repeat phrase and name object: intact Fund of knowledge as evidenced by vocabulary and current/historical events: intact Attention span/concentration as evidenced by: ability to sustain attention to examiner - intact Insight: fair as evidenced by help-seeking behavior and willingness to participate in treatment Judgment: good as evidenced by help-seeking behavior and willingness to participate in treatment PHYSICAL/CONSULT/LAB FINDINGS: BP: 88 mmHg/52 mmHg (01/10/23599) Pulse: 93 (01/10/23599) Temp: 36.78 C (01/10/23599) Resp: 17 (01/10/23599) SpO2: 95 % (01/06/23599) Labs reviewed as indicated below: Recent Results (from the past 48 hour(s)) GLUCOSE METER, POINT OF CARE Collection Time: 01/08/23 11:55 AM Result Value Ref Range Glucose Meter 260 (H) 70 - 120 mg/dL GLUCOSE METER, POINT OF CARE Collection Time: 01/08/23 4:55 PM Result Value Ref Range Glucose Meter 202 (H) 70 - 120 mg/dL GLUCOSE METER, POINT OF CARE Collection Time: 01/08/23 7:13 PM Result Value Ref Range Glucose Meter 206 (H) 70 - 120 mg/dL GLUCOSE METER, POINT OF CARE Collection Time: 01/09/23 2:03 AM Result Value Ref Range Glucose Meter 321 (H) 70 - 120 mg/dL BASIC METABOLIC PANEL Collection Time: 01/09/23 6:21 AM Result Value Ref Range BUN 26 (H) 6 - 20 mg/dL Creatinine 0.9 0.6 - 1.2 mg/dL Estimated Glomerular Filtration Rate >90 >=60 mL/min Sodium 144 135 - 146 mmol/L Potassium 4.5 3.5 - 5.1 mmol/L Chloride 110 (H) 98 - 107 mmol/L CO2 27 22 - 32 mmol/L Anion Gap 7 7 - 15 mmol/L Glucose 40 (LL) 70 - 120 mg/dL Calcium 9.5 8.4 - 10.2 mg/dL CBC Collection Time: 01/09/23 6:21 AM Result Value Ref Range WBC 8.92 4.00 - 10.80 K/uL RBC 3.10 4.50 - 5.25 M/uL HGB 9.5 (L) 14.0 - 16.8 g/dL HCT 30.0 (L) 40.0 - 48.4 % MCV 96.8 82.0 - 99.5 fL MCH 30.6 27.0 - 34.0 pg MCHC 31.7 32.0 - 36.0 g/dL RDW 14.1 11.5 - 15.5 % PLT 331 140 - 400 K/uL MPV 8.9 6.6 - 11.1 fL nRBCs 0 <=0 /100 WBCs GLUCOSE METER, POINT OF CARE Collection Time: 01/09/23 6:25 AM Result Value Ref Range Glucose Meter 41 (LL) 70 - 120 mg/dL GLUCOSE METER, POINT OF CARE Collection Time: 01/09/23 6:53 AM Result Value Ref Range Glucose Meter 199 (H) 70 - 120 mg/dL GLUCOSE METER, POINT OF CARE Collection Time: 01/09/23 11:33 AM Result Value Ref Range Glucose Meter 204 (H) 70 - 120 mg/dL GASTROINTESTINAL PATHOGEN PANEL PCR Collection Time: 01/09/23 1:49 PM Result Value Ref Range Campylobacter group by PCR Negative Negative Salmonella species by PCR Negative Negative Shigella species by PCR Negative Negative Vibrio group by PCR Negative Negative Yersinia enterocolitica by PCR Negative Negative Shiga Toxin 1 Gene by PCR Negative Negative Shiga Toxin 2 Gene by PCR Negative Negative Norovirus by PCR Negative Negative Rotavirus by PCR Negative Negative INFLUENZA A/B RSV SARS-COV2,PCR Collection Time: 01/09/23 1:49 PM Result Value Ref Range SARS-CoV-2 (COVID-19) Result Negative Negative Influenza A PCR Result Negative Negative Influenza B PCR Result Negative Negative RSV PCR Result Negative Negative GLUCOSE METER, POINT OF CARE Collection Time: 01/09/23 4:42 PM Result Value Ref Range Glucose Meter 139 (H) 70 - 120 mg/dL GLUCOSE METER, POINT OF CARE Collection Time: 01/09/23 7:59 PM Result Value Ref Range Glucose Meter 160 (H) 70 - 120 mg/dL GLUCOSE METER, POINT OF CARE Collection Time: 01/10/23 7:19 AM Result Value Ref Range Glucose Meter 111 70 - 120 mg/dL DANGEROUSNESS TO SELF/OTHERS ASSESSMENT UPDATE: dangerousness to self/others has lessened and is now rated minimal risk PATIENT REPORTED DEPRESSION SCREENING (PHQ9): PHQ9 Survey Results Last 24hours (since 01/09/2023) None DIAGNOSIS: Principal Problem: Bipolar 2 disorder, major depressive episode (HCC) Active Problems: Hypothyroidism Severe protein-calorie malnutrition (HCC) Opioid use disorder Compulsive skin picking Methamphetamine abuse (HCC) Chronic osteomyelitis of right hand including fingers (HCC) Uncontrolled diabetes mellitus with hyperglycemia (HCC) Social anxiety disorder Nocturnal diarrhea Resolved Problems: Dehydration Orthostatic hypotension Syncope ASSESSMENT: Gil Irby is a 37 year old male with a past psychiatric history of ADHD and depression who was admitted to the 7A Inpatient Psychiatric Unit at [facility] ([facility]) on 12/27/2022 on a 201 (voluntary) commitment for depression with suicidal ideation. Gil continues to struggle with depression and anxiety and did not feel the addition of Buspar was helpful. He was agreeable to trying Zoloft instead to target both complaints. He is compliant with medications and showing improved participation in milieu programming. Would like to go to inpatient rehab after hospital discharge. PLAN: Reviewed with Dr. Jean and treatment team. Inpatient psychiatric care is necessary because of suicidal potential . Plan of care includes: 1) 201 (voluntary) commitment 2) Safety Q15 minute checks 3) Supportive milieu and group therapy 4) Safe discharge planning Referrals to inpatient rehab being pursued by CM Proving difficult due to medical needs of patient Referral for outpatient healthcare educator Referral for OP orthopaedic f/u appointment 5) Psychotropic Medications Discontinue Buspar 10mg BID d/t ineffectiveness Gabapentin 300mg TID Remeron Soltab 30mg QHS Seroquel 200mg QHS Zoloft 100mg Daily for depression/anxiety 6) Medical Needs Continue home medications as prescribed Appreciate internal medicine's and endocrinologies co management of hyperglycemia. Insulin regimen changed to address persistent hyperglycemia. Increased dose of Synthroid from 88mcg to 100mcg as TSH was 60 on labs today. 7) Labs/Imaging None pending. On antipsychotic therapy: HgbA1c 12/29/22 - 11.3% Lipid panel 12/29/22 - mildly elevated LDL Treatment options and alternatives reviewed with patient and they agree with the above plan. Information about current medications was provided to the patient including reasons why medicationsare being used, risks, benefits, side effects and alternatives to treatment (including no treatment). Signature: Palak Arroyo PA-C 01/10/2023 1:15 PM Associated attestation - Coco Jean MD - 01/10/2023 1:19 PM EDT I saw and evaluated the patient on date of service referenced in note and have supervised the performance of a medically appropriate history and/or exam by the Physician Real Estate Transaction Coordinator. I have reviewed the documentation and agree, with exceptions/additions as noted below: none Coco Jean MD Attending psychiatrist 01/10/23 1:19 PM * Nery Collier PA-C - 01/09/2023 10:50 AM EDT Images from the original note were not included. [facility] [id number] Clinical Summary: 37 yo male patient with PMHx DM1, chronic osteomyelitis right hand, methamphetamine abuse, recurrent syncope, depression and anxiety currently admitted to inpatient psychiatry unit due to depression with suicidal ideation. General internal medicine following hyperglycemia and new consult placed for diarrhea. INTERVAL HISTORY: This morning received 8 units novolog for BG 321 @ 0203. BG dropped to 41 @ 0600. Night team decreased lantus to 18 units HS Notes diarrhea 3-4 times a night x 7 days. 3 episodes of diarrhea with 2 episodes of incontinence last night. Denies bloody stool, abdominal pain, fever, chills, poor appetite. No improvement with lactobacillus BID, imodium BID, fiber once daily. Stool negative for c diff 01/01/23. Objective Physical Exam Most Recent Vital Signs: BP: 85 mmHg/59 mmHg (01/09/23 06) Pulse: 70 (01/09/23 0600) Temp: 36.39 C (01/09/23 06) Resp: 18 (01/09/23 06) SpO2: 95 % (01/06/23 06) Physical Exam Constitutional: General: He is not in acute distress. Appearance: He is not ill-appearing. Cardiovascular: Rate and Rhythm: Normal rate and regular rhythm. Heart sounds: No murmur heard. Pulmonary: Effort: No respiratory distress. Breath sounds: No wheezing, rhonchi or rales. Abdominal: General: Abdomen is flat. Palpations: There is no mass. Tenderness: There is no abdominal tenderness. There is no guarding or rebound. Musculoskeletal: General: Deformity (light erythema R DIP 5 with ROM intact and no open wound/drainage) present. Right lower leg: No edema. Left lower leg: No edema. STUDIES: Encounter Orders Labs and other studies reviewed with pertinent findings noted below: Lab results within last 7 days (see chart for full results) Units 01/09/23 0621 01/04/23 0942 Sodium mmol/L 144 133* Potassium mmol/L 4.5 4.3 Chloride mmol/L 110* 100 CO2 mmol/L 27 24 BUN mg/dL 26* 29* Creatinine mg/dL 0.9 1.0 Latest Reference Range & Units 12/28/22 04:42 12/29/22 05:17 01/09/23 06:21 WBC 4.00 - 10.80 K/uL 9.52 10.48 8.92 HGB 14.0 - 16.8 g/dL 10.6 (L) 10.7 (L) 9.5 (L) HCT 40.0 - 48.4 % 32.7 (L) 33.7 (L) 30.0 (L) MCV 82.0 - 99.5 fL 94.8 96.3 96.8 PLT 140 - 400 K/uL 348 349 331 Latest Reference Range & Units 01/01/23 22:05 Clostridium difficile Result Negative Negative. No C. difficile toxin B gene DNA detected by PCR (Amplified Probe). Stool Consistency Semi-liquid Assessment and Plan IMPRESSION/PLAN: Principal Problem: Bipolar 2 disorder, major depressive episode (HCC) Active Problems: Hypothyroidism Severe protein-calorie malnutrition (HCC) Opioid use disorder Compulsive skin picking Methamphetamine abuse (HCC) Chronic osteomyelitis of right hand including fingers (HCC) Uncontrolled diabetes mellitus with hyperglycemia (HCC) Social anxiety disorder Nocturnal diarrhea Resolved Problems: Dehydration Orthostatic hypotension Syncope I have examined the patient and consistent with the dietitian's findings found malnutrition presentof Severe (12/29/22 1555) degree. This is consistent with such due to Fat loss;Muscle loss;Weight loss (12/29/22 1555). I have also reviewed and agree with the dietitian's plan of care which include Diet change ordered;EPIC message sent to pharmacy regarding Vitamin K content of supplement;Oral nutritional supplement ordered/adjusted (01/03/23 1020). Increase Imodium 4 mg 3 times daily Continue Lactobacillus to 1 capsule at noon and 1700 and daily fiber supplement Obtain stool culture for GI pathogens Continue bactrim and augmentin for chronic osteomyelitis of R finger 5 (wound culture grew MRSA, strep A and bacteroides 10/27/22); suspect antibiotic associated diarrhea so may need to consider discontinuation of augmentin should above measures fail to improve diarrhea Document accurate stool frequency/consistency Will need outpatient follow up with hand surgeon regarding amputation of R finger 5 Dose of synthroid increased to 100 mcg starting 01/05/23 Update BMP, CBC tomorrow Agree with decrease lantus to 18 units HS Novolog CR 1:15 at breakfast, 1:18 at lunch and supper plus low dose sliding scale Bedtime snack containing 30 carbs Adjusted nursing communication to reflect call for blood sugar >450 as extra dose of insulin overnight resulted in hypoglycemia PHARMACOLOGIC VTE PROPHYLAXIS: This patient does not have an active medication from one of the medication groupers. CODE STATUS: Full Code EXPECTED DISCHARGE DATE: 01/09/2023 Case and plan of care were discussed with Dr. Chowdhury. I spent a total of 27 minutes coordinating, documenting, and providing care for this patient excluding time spent in the performance of separately billed services. * Sample, Palak Sahu PA-C - 01/09/2023 8:32 AM EDT PHYSICIAN PROGRESS NOTE INPATIENT PSYCHIATRY [address] [address] Name: Gil Irby Location: [facility] [id number] Date: 01/09/2023 Time: 8:33 AM Commitment Status: 201 Review: Case Reviewed in Treatment Team and Nursing Notes Past 24 Hours Reviewed SUBJECTIVE: Gil Irby is seen for follow up today. Chart reviewed. No acute events through the night. Gil continues to improve slowly on the unit. Today, Depression is mild. Rated a 3/10 (with 10 being the worst). Anxiety is also moderate. Rated a 5/10 (with 10 being the worst). Feels both depression and anxiety are increased today because his is incarcerated and his oldest daughter is driving his car with no previous driving experience. He is worried for the safety of his daughter. Overall, feels like he is coping with the stress well. Denies suicidal ideation, homicidal ideation, auditory or visual hallucinations, or delusions. Sleep is alright, but the persistent diarrhea is disruptive to sleep. He was seen by medical and tests ordered yesterday. Appetite is "awesome." He is attending group therapy when social anxiety is tolerable. Feels this is improving everyday. Tolerating the medication well and denies side effects such as fatigue, headache, dizziness, changes in vision, chest pain, shortness of breath, nausea, vomiting, dysuria, diarrhea, constipation, abdominalpain, tremors, abnormal facial movements, or restlessness. He feels his medications are effective and dose not want to change their dosages. Medication Compliance: compliant with all prescribed medicines PRN Medication Utilization: None in the last 24 hours. Participating in Treatment: Improved participation in milieu programming/investment in treatment Current Medication List: Current Facility-Administered Medications Medication Dose Route Frequency Provider insulin aspart (NovoLOG) inj Subcutaneous With Meals and HS Reji Brothers MD Insulin Glargine (Lantus) inj 18 Units 18 Units Subcutaneous HS insulin Reji Brothers MD loperamide (Imodium) cap 4 mg 4 mg Oral TID(AM/NOON/HS) Nery Collier PA-C insulin aspart (NovoLOG) inj Subcutaneous Lunch Nery Collier PA-C Lactobacillus (Culturelle) cap 1 Capsule 1 Capsule Oral BID (Noon, 1700) Nery Collier PA-C Nutrisource (soluble fiber packet) 1 Packet Oral Daily(AM) Nery Collier PA-C insulin aspart (NovoLOG) inj Subcutaneous Breakfast Jordy Ed Luciana, DO insulin aspart (NovoLOG) inj Subcutaneous Dinner Jordy Ed Luciana, DO levothyroxine (Levoxyl) tab 100 mcg 100 mcg Oral Daily 0630 Jordy Ednate Chowdhury, DO ondansetron (Zofran) tab 4 mg 4 mg Oral Q6H PRN Coco Jean MD sertraline (Zoloft) tab 100 mg 100 mg Oral Daily(AM) Palak Arroyo PA-C home medication stored in pharmacy Does Not Apply Daily(AM) Coco Jean MD house antacid (Mi-Acid II) oral susp 15 mL 15 mL Oral Q4H PRN Coco Jean MD Nicotine (Nicoderm CQ) 14 MG/24HR patch 1 Patch 1 Patch Transdermal Daily(AM) Coco Jean MD methADONE CONCentrated 10 mg/mL oral conc 107 mg 107 mg Oral Daily(AM) Marlon Banda MD mirtazapine ODT (Remeron Soltab) tab 30 mg 30 mg Oral HS Marlon Banda MD Acetaminophen (Tylenol) tab 975 mg 975 mg Oral Q6H PRN Cari Navarro PA-C amoxicillin-clavulanate (Augmentin) tab 875 mg 875 mg Oral BID(AM/PM) Cari Navarro PA-C dextrose 50 % inj 25 mL 25 mL IV Push PRN Cari Navarro PA-C dextrose 50 % inj 50 mL 50 mL IV Push PRN Cari Navarro PA-C Gabapentin (Neurontin) cap 300 mg 300 mg Oral TID(AM/NOON/HS) Cari Navarro PA-C glucagon (Glucagen) inj 1 mg 1 mg Intramuscular PRN Cari Navarro PA-C Glucose (Glutose 15) 40 % gel 15 g of glucose 15 g of glucose Oral PRN Cari Navarro PA-C Glucose (Glutose 15) 40 % gel 30 g of glucose 30 g of glucose Oral PRN Cari Navarro PA-C glucose chew tab 16 g 16 g Oral PRN Cari Navarro PA-C guaiFENesin-dm (Robitussin DM) oral syrup 10 mL 10 mL Oral Q6H PRN Cari Navarro PA-C melatonin tab 3 mg 3 mg Oral HS PRN Cari Navarro PA-C midodrine (Proamatine) tab 10 mg 10 mg Oral TID(AM/NOON/HS) Cari Navarro PA-C QUEtiapine (SEROquel) tab 200 mg 200 mg Oral HS Cari Navarro PA-C sulfamethoxazole-trimethoprim DS (Bactrim DS) 800-160 MG 1 Tablet 1 Tablet Oral BID(AM/PM) Cari Navarro PA-C MENTAL STATUS EVALUATION: Appearance: age-appropriate, bearded, and casually dressed, wearing beanie hat Muscle strength and tone: normal muscle strength and tone Gait and Station: steady with use of cane and leg brace Personal Presentation: candid and cooperative Behavior: appropriate and cooperative, good eye contact Speech: normal, rate, tone and volume Mood: "alright" Affect: type - euthymic; range - restricted ; lability - no Associations: intact Thought Process: goal directed and logical Abstract Reasoning: not tested Thought Content: (-) SI, HI, no overt paranoia or delusions Perception: (-) AVH no disturbances appreciated Orientation: alert and oriented to person, place, time and situation Recent and remote memory as evidenced by recall of recent circumstances and remote life events: intact Language as evidenced by ability to repeat phrase and name object: intact Fund of knowledge as evidenced by vocabulary and current/historical events: intact Attention span/concentration as evidenced by: ability to sustain attention to examiner - intact Insight: fair as evidenced by help-seeking behavior and willingness to participate in treatment Judgment: good as evidenced by help-seeking behavior and willingness to participate in treatment PHYSICAL/CONSULT/LAB FINDINGS: BP: 85 mmHg/59 mmHg (01/09/23 06) Pulse: 70 (01/09/23 06) Temp: 36.39 C (01/09/23599) Resp: 18 (01/09/23 06) SpO2: 95 % (01/06/23599) Labs reviewed as indicated below: Recent Results (from the past 48 hour(s)) GLUCOSE METER, POINT OF CARE Collection Time: 01/07/23 11:17 AM Result Value Ref Range Glucose Meter 155 (H) 70 - 120 mg/dL GLUCOSE METER, POINT OF CARE Collection Time: 01/07/23 4:22 PM Result Value Ref Range Glucose Meter 307 (H) 70 - 120 mg/dL GLUCOSE METER, POINT OF CARE Collection Time: 01/07/23 7:23 PM Result Value Ref Range Glucose Meter 202 (H) 70 - 120 mg/dL GLUCOSE METER, POINT OF CARE Collection Time: 01/08/23 2:31 AM Result Value Ref Range Glucose Meter 147 (H) 70 - 120 mg/dL GLUCOSE METER, POINT OF CARE Collection Time: 01/08/23 6:55 AM Result Value Ref Range Glucose Meter 35 (LL) 70 - 120 mg/dL Device Comment Notified Provider GLUCOSE METER, POINT OF CARE Collection Time: 01/08/23 8:02 AM Result Value Ref Range Glucose Meter 224 (H) 70 - 120 mg/dL GLUCOSE METER, POINT OF CARE Collection Time: 01/08/23 11:55 AM Result Value Ref Range Glucose Meter 260 (H) 70 - 120 mg/dL GLUCOSE METER, POINT OF CARE Collection Time: 01/08/23 4:55 PM Result Value Ref Range Glucose Meter 202 (H) 70 - 120 mg/dL GLUCOSE METER, POINT OF CARE Collection Time: 01/08/23 7:13 PM Result Value Ref Range Glucose Meter 206 (H) 70 - 120 mg/dL GLUCOSE METER, POINT OF CARE Collection Time: 01/09/23 2:03 AM Result Value Ref Range Glucose Meter 321 (H) 70 - 120 mg/dL BASIC METABOLIC PANEL Collection Time: 01/09/23 6:21 AM Result Value Ref Range BUN 26 (H) 6 - 20 mg/dL Creatinine 0.9 0.6 - 1.2 mg/dL Estimated Glomerular Filtration Rate >90 >=60 mL/min Sodium 144 135 - 146 mmol/L Potassium 4.5 3.5 - 5.1 mmol/L Chloride 110 (H) 98 - 107 mmol/L CO2 27 22 - 32 mmol/L Anion Gap 7 7 - 15 mmol/L Glucose 40 (LL) 70 - 120 mg/dL Calcium 9.5 8.4 - 10.2 mg/dL CBC Collection Time: 01/09/23 6:21 AM Result Value Ref Range WBC 8.92 4.00 - 10.80 K/uL RBC 3.10 4.50 - 5.25 M/uL HGB 9.5 (L) 14.0 - 16.8 g/dL HCT 30.0 (L) 40.0 - 48.4 % MCV 96.8 82.0 - 99.5 fL MCH 30.6 27.0 - 34.0 pg MCHC 31.7 32.0 - 36.0 g/dL RDW 14.1 11.5 - 15.5 % PLT 331 140 - 400 K/uL MPV 8.9 6.6 - 11.1 fL nRBCs 0 <=0 /100 WBCs GLUCOSE METER, POINT OF CARE Collection Time: 01/09/23 6:53 AM Result Value Ref Range Glucose Meter 199 (H) 70 - 120 mg/dL DANGEROUSNESS TO SELF/OTHERS ASSESSMENT UPDATE: dangerousness to self/others has lessened and is now rated minimal risk PATIENT REPORTED DEPRESSION SCREENING (PHQ9): PHQ9 Survey Results Last 24hours (since 01/08/2023) None DIAGNOSIS: Principal Problem: Bipolar 2 disorder, major depressive episode (HCC) Active Problems: Hypothyroidism Severe protein-calorie malnutrition (HCC) Opioid use disorder Compulsive skin picking Methamphetamine abuse (HCC) Chronic osteomyelitis of right hand including fingers (HCC) Uncontrolled diabetes mellitus with hyperglycemia (HCC) Social anxiety disorder Nocturnal diarrhea Resolved Problems: Dehydration Orthostatic hypotension Syncope ASSESSMENT: Gil Irby is a 37 year old male with a past psychiatric history of ADHD and depression who was admitted to the Inpatient Psychiatric Unit at [facility] ([facility]) on 12/27/2022 on a 201 (voluntary) commitment for depression with suicidal ideation. Gil continues to struggle with depression and anxiety and did not feel the addition of Buspar was helpful. He was agreeable to trying Zoloft instead to target both complaints. He is compliant with medications and showing improved participation in milieu programming. Would like to go to inpatient rehab after hospital discharge. PLAN: Reviewed with Dr. Jean and treatment team. Inpatient psychiatric care is necessary because of suicidal potential . Plan of care includes: 1) 201 (voluntary) commitment 2) Safety Q15 minute checks 3) Supportive milieu and group therapy 4) Safe discharge planning Referrals to inpatient rehab being pursued by CM Proving difficult due to medical needs of patient Referral for outpatient healthcare educator Referral for OP orthopaedic f/u appointment 5) Psychotropic Medications Discontinue Buspar 10mg BID d/t ineffectiveness Gabapentin 300mg TID Remeron Soltab 30mg QHS Seroquel 200mg QHS Zoloft 100mg Daily for depression/anxiety 6) Medical Needs Continue home medications as prescribed Appreciate internal medicine's and endocrinologies co management of hyperglycemia. Insulin regimen changed to address persistent hyperglycemia. Increased dose of Synthroid from 88mcg to 100mcg as TSH was 60 on labs today. 7) Labs/Imaging None pending. On antipsychotic therapy: HgbA1c 12/29/22 - 11.3% Lipid panel 12/29/22 - mildly elevated LDL Treatment options and alternatives reviewed with patient and they agree with the above plan. Information about current medications was provided to the patient including reasons why medicationsare being used, risks, benefits, side effects and alternatives to treatment (including no treatment). Signature: Paalk Arroyo PA-C 01/09/2023 3:45 PM Associated attestation - Coco Jean MD - 01/09/2023 8:19 PM EDT I saw and evaluated the patient on date of service referenced in note and have supervised the performance of a medically appropriate history and/or exam by the Physician Real Estate Transaction Coordinator. I have reviewed the documentation and agree, with exceptions/additions as noted below: none Coco Jean MD Attending psychiatrist 01/09/23 8:18 PM * Sample, Palak Sahu PA-C - 01/08/2023 10:45 AM EDT PHYSICIAN PROGRESS NOTE INPATIENT PSYCHIATRY [facility] [address] Name: Gil Irby Location: [facility] [id number] Date: 01/08/2023 Time: 10:45 AM Commitment Status: 201 Review: Case Reviewed in Treatment Team and Nursing Notes Past 24 Hours Reviewed SUBJECTIVE: Gil Irby is seen for follow up today. Chart reviewed. No acute events through the night. Gil had a good weekend. Endorses further improvement in mood symptoms. Depression is mild. Rated a 2/10 (with 10 being the worst). This is a tolerable level for him. He anticipates this would be less if he were out of the hospital and with his family. Talking to his family, specifically his daughter, on the phone is helpful while he is here. Says he is working on "not holding it in." Anxiety is not bothersome today. Rated a 0/10 (with 10 being the worst). Denies suicidal ideation, homicidal ideation, auditory or visual hallucinations, or delusions. Reports good sleep and appetite. He is attending group therapy, but admits at times his becomes too anxious in that social environmentand retreats to his room for a quiet space. Overall, feels his anxiety is improved since admission.Continues to experience diarrhea and now having incontinence of bowel at night. Says the diarrhea begins each night after dinner and lasts through the night. Reports approximately 3-4 loose stools every evening. This has happened before, but it has never lasted this long. Historically, this resolves without treatment. He is using imodium, but does not find this medication helpful. Denies hematochezia. Agreeable to speaking to medicine about this complaint. He feels he could be successful outside of the acute psychiatric hospital and would like to go to rehab soon. Medication Compliance: compliant with all prescribed medicines PRN Medication Utilization: None in the last 24 hours. Participating in Treatment: Improved participation in milieu programming/investment in treatment Current Medication List: Current Facility-Administered Medications Medication Dose Route Frequency Provider insulin aspart (NovoLOG) inj Subcutaneous Lunch Nery Collier PA-C insulin aspart (NovoLOG) inj Subcutaneous BID (AM/PM meals) Nery Collier PA-C Insulin Glargine (Lantus) inj 22 Units 22 Units Subcutaneous HS insulin Nery Collier PA-C Lactobacillus (Culturelle) cap 1 Capsule 1 Capsule Oral BID (Noon, 1700) Nery Collier PA-C loperamide (Imodium) cap 2 mg 2 mg Oral BID (AM/PM meals) Nery Collier PA-C Nutrisource (soluble fiber packet) 1 Packet Oral Daily(AM) Nery Collier PA-C insulin aspart (NovoLOG) inj Subcutaneous Breakfast Jordy Ed Luciana, DO insulin aspart (NovoLOG) inj Subcutaneous Dinner Jordy Ed Luciana, DO levothyroxine (Levoxyl) tab 100 mcg 100 mcg Oral Daily 0630 Jordy Ed Luciana, DO ondansetron (Zofran) tab 4 mg 4 mg Oral Q6H PRN Coco Jean MD sertraline (Zoloft) tab 100 mg 100 mg Oral Daily(AM) Palak Arroyo PA-C home medication stored in pharmacy Does Not Apply Daily(AM) Coco Jean MD house antacid (Mi-Acid II) oral susp 15 mL 15 mL Oral Q4H PRN Coco Jean MD milk of magnesia (Mom) oral susp 30 mL 30 mL Oral Daily PRN Coco Jean MD Nicotine (Nicoderm CQ) 14 MG/24HR patch 1 Patch 1 Patch Transdermal Daily(AM) Coco Jean MD methADONE CONCentrated 10 mg/mL oral conc 107 mg 107 mg Oral Daily(AM) Marlon Banda MD mirtazapine ODT (Remeron Soltab) tab 30 mg 30 mg Oral HS Marlon Banda MD Acetaminophen (Tylenol) tab 975 mg 975 mg Oral Q6H PRN Cari Navarro PA-C amoxicillin-clavulanate (Augmentin) tab 875 mg 875 mg Oral BID(AM/PM) Cari Navarro PA-C dextrose 50 % inj 25 mL 25 mL IV Push PRN Cari Navarro PA-C dextrose 50 % inj 50 mL 50 mL IV Push PRN Cari Navarro PA-C Gabapentin (Neurontin) cap 300 mg 300 mg Oral TID(AM/NOON/HS) Cari Navarro PA-C glucagon (Glucagen) inj 1 mg 1 mg Intramuscular PRN Cari Navarro PA-C Glucose (Glutose 15) 40 % gel 15 g of glucose 15 g of glucose Oral PRN Cari Navarro PA-C Glucose (Glutose 15) 40 % gel 30 g of glucose 30 g of glucose Oral PRN Cari Navarro PA-C glucose chew tab 16 g 16 g Oral PRN Cari Navarro PA-C guaiFENesin-dm (Robitussin DM) oral syrup 10 mL 10 mL Oral Q6H PRN Cari Navarro PA-C melatonin tab 3 mg 3 mg Oral HS PRN Cari Navarro PA-C midodrine (Proamatine) tab 10 mg 10 mg Oral TID(AM/NOON/HS) Cari Navarro PA-C QUEtiapine (SEROquel) tab 200 mg 200 mg Oral HS Cari Navarro PA-C senna-docusate (Senokot-S) 1 Tablet 1 Tablet Oral Daily PRN Cari Navarro PA-C sulfamethoxazole-trimethoprim DS (Bactrim DS) 800-160 MG 1 Tablet 1 Tablet Oral BID(AM/PM) Cari Navarro PA-C MENTAL STATUS EVALUATION: Appearance: age-appropriate, bearded, and casually dressed, wearing beanie hat Muscle strength and tone: normal muscle strength and tone Gait and Station: steady with use of cane and leg brace Personal Presentation: candid and cooperative Behavior: appropriate and cooperative, good eye contact Speech: normal, rate, tone and volume Mood: "good" Affect: type - euthymic, with appropriate brightening; range - restricted ; lability - no Associations: intact Thought Process: goal directed and logical Abstract Reasoning: not tested Thought Content: (-) SI, HI, no overt paranoia or delusions Perception: (-) AVH no disturbances appreciated Orientation: alert and oriented to person, place, time and situation Recent and remote memory as evidenced by recall of recent circumstances and remote life events: intact Language as evidenced by ability to repeat phrase and name object: intact Fund of knowledge as evidenced by vocabulary and current/historical events: intact Attention span/concentration as evidenced by: ability to sustain attention to examiner - intact Insight: fair as evidenced by help-seeking behavior and willingness to participate in treatment Judgment: good as evidenced by help-seeking behavior and willingness to participate in treatment PHYSICAL/CONSULT/LAB FINDINGS: BP: 87 mmHg/65 mmHg (01/08/23599) Pulse: 92 (01/08/23599) Temp: 36.78 C (01/08/23599) Resp: 16 (01/08/23599) SpO2: 95 % (01/06/23599) Labs reviewed as indicated below: Recent Results (from the past 48 hour(s)) GLUCOSE METER, POINT OF CARE Collection Time: 01/06/23 11:29 AM Result Value Ref Range Glucose Meter 123 (H) 70 - 120 mg/dL GLUCOSE METER, POINT OF CARE Collection Time: 01/06/23 4:29 PM Result Value Ref Range Glucose Meter 191 (H) 70 - 120 mg/dL GLUCOSE METER, POINT OF CARE Collection Time: 01/06/23 7:29 PM Result Value Ref Range Glucose Meter 303 (H) 70 - 120 mg/dL GLUCOSE METER, POINT OF CARE Collection Time: 01/07/23 7:18 AM Result Value Ref Range Glucose Meter 134 (H) 70 - 120 mg/dL GLUCOSE METER, POINT OF CARE Collection Time: 01/07/23 11:17 AM Result Value Ref Range Glucose Meter 155 (H) 70 - 120 mg/dL GLUCOSE METER, POINT OF CARE Collection Time: 01/07/23 4:22 PM Result Value Ref Range Glucose Meter 307 (H) 70 - 120 mg/dL GLUCOSE METER, POINT OF CARE Collection Time: 01/07/23 7:23 PM Result Value Ref Range Glucose Meter 202 (H) 70 - 120 mg/dL GLUCOSE METER, POINT OF CARE Collection Time: 01/08/23 2:31 AM Result Value Ref Range Glucose Meter 147 (H) 70 - 120 mg/dL GLUCOSE METER, POINT OF CARE Collection Time: 01/08/23 8:02 AM Result Value Ref Range Glucose Meter 224 (H) 70 - 120 mg/dL DANGEROUSNESS TO SELF/OTHERS ASSESSMENT UPDATE: dangerousness to self/others has lessened and is now rated minimal risk PATIENT REPORTED DEPRESSION SCREENING (PHQ9): PHQ9 Survey Results Last 24hours (since 01/07/2023) None DIAGNOSIS: Principal Problem: Bipolar 2 disorder, major depressive episode (HCC) Active Problems: Hypothyroidism Severe protein-calorie malnutrition (HCC) Opioid use disorder Compulsive skin picking Methamphetamine abuse (HCC) Chronic osteomyelitis of right hand including fingers ([facility]) Uncontrolled diabetes mellitus with hyperglycemia ([facility]) Social anxiety disorder Resolved Problems: Dehydration Orthostatic hypotension Syncope ASSESSMENT: Gil Irby is a 37 year old male with a past psychiatric history of ADHD and depression who was admitted to the 7A Inpatient Psychiatric Unit at [facility] ([facility]) on 12/27/2022 on a 201 (voluntary) commitment for depression with suicidal ideation. Gil continues to struggle with depression and anxiety and did not feel the addition of Buspar was helpful. He was agreeable to trying Zoloft instead to target both complaints. He is compliant with medications and showing improved participation in milieu programming. Would like to go to inpatient rehab after hospital discharge. PLAN: Reviewed with Dr. Jean and treatment team. Inpatient psychiatric care is necessary because of suicidal potential . Plan of care includes: 1) 201 (voluntary) commitment 2) Safety Q15 minute checks 3) Supportive milieu and group therapy 4) Safe discharge planning Referrals to inpatient rehab being pursued by CM Referral for outpatient healthcare educator Referral for OP orthopaedic f/u appointment 5) Psychotropic Medications Discontinue Buspar 10mg BID d/t ineffectiveness Gabapentin 300mg TID Remeron Soltab 30mg QHS Seroquel 200mg QHS Zoloft 100mg Daily for depression/anxiety 6) Medical Needs Continue home medications as prescribed Appreciate internal medicine's and endocrinologies co management of hyperglycemia. Insulin regimen changed to address persistent hyperglycemia. Increased dose of Synthroid from 88mcg to 100mcg as TSH was 60 on labs today. 7) Labs/Imaging None pending. On antipsychotic therapy: HgbA1c 12/29/22 - 11.3% Lipid panel 12/29/22 - mildly elevated LDL Treatment options and alternatives reviewed with patient and they agree with the above plan. Information about current medications was provided to the patient including reasons why medicationsare being used, risks, benefits, side effects and alternatives to treatment (including no treatment). Signature: Palak Arroyo PA-C 01/08/2023 2:12 PM Associated attestation - Coco Jean MD - 01/08/2023 2:53 PM EDT I saw and evaluated the patient on date of service referenced in note and have supervised the performance of a medically appropriate history and/or exam by the Physician Real Estate Transaction Coordinator. I have reviewed the documentation and agree, with exceptions/additions as noted below: none Coco Jean MD Attending psychiatrist 01/08/23 2:53 PM * Nery Collier PA-C - 01/08/2023 10:12 AM EDT Images from the original note were not included. [facility] 7A-7105/A Clinical Summary: 37 yo male patient with PMHx DM1, chronic osteomyelitis right hand, methamphetamine abuse, recurrent syncope, depression and anxiety currently admitted to inpatient psychiatry unit due to depression with suicidal ideation. General internal medicine following hyperglycemia and new consult placed for diarrhea. INTERVAL HISTORY: States appetite is good, eating 75-120 g carbs per meal. BG dropped to 35 this morning and he felt hot, sweaty and shaky. Currently on lantus 26 units HS, novolog SS with meals and novolog CR 1:15 with breakfast and 1:18 evening meal. BG >300 before supper yesterday and after supper 01/06. Notes diarrhea 3-4 times a night x 7 days. Fecal incontinence noted. Denies bloody stool, abdominal pain, fever, chills, poor appetite. No improvement with lactobacillus once daily, imodium 2 mg once daily. Stool negative for c diff 01/01/23. Objective Physical Exam Most Recent Vital Signs: BP: 87 mmHg/65 mmHg (01/08/23 06) Pulse: 92 (01/08/23599) Temp: 36.78 C (01/08/23599) Resp: 16 (01/08/23599) SpO2: 95 % (01/06/23599) Physical Exam Constitutional: General: He is not in acute distress. Appearance: He is not ill-appearing. Cardiovascular: Rate and Rhythm: Normal rate and regular rhythm. Heart sounds: No murmur heard. Pulmonary: Effort: No respiratory distress. Breath sounds: No wheezing, rhonchi or rales. Abdominal: General: Abdomen is flat. Palpations: There is no mass. Tenderness: There is no abdominal tenderness. There is no guarding or rebound. Musculoskeletal: General: Deformity (light erythema R DIP 5 with ROM intact and no open wound/drainage) present. Right lower leg: No edema. Left lower leg: No edema. STUDIES: Encounter Orders Labs and other studies reviewed with pertinent findings noted below: Latest Reference Range & Units 01/04/23 09:42 Sodium 135 - 146 mmol/L 133 (L) Potassium 3.5 - 5.1 mmol/L 4.3 Chloride 98 - 107 mmol/L 100 CO2 22 - 32 mmol/L 24 BUN 6 - 20 mg/dL 29 (H) Creatinine 0.6 - 1.2 mg/dL 1.0 Estimated Glomerular Filtration Rate >=60 mL/min >90 Anion Gap 7 - 15 mmol/L 9 Glucose 70 - 120 mg/dL 575 (HH) Calcium 8.4 - 10.2 mg/dL 8.9 Latest Reference Range & Units 12/29/22 05:17 WBC 4.00 - 10.80 K/uL 10.48 HGB 14.0 - 16.8 g/dL 10.7 (L) HCT 40.0 - 48.4 % 33.7 (L) MCV 82.0 - 99.5 fL 96.3 PLT 140 - 400 K/uL 349 Latest Reference Range & Units 01/01/23 22:05 Clostridium difficile Result Negative Negative. No C. difficile toxin B gene DNA detected by PCR (Amplified Probe). Stool Consistency Semi-liquid Assessment and Plan IMPRESSION/PLAN: Principal Problem: Bipolar 2 disorder, major depressive episode (HCC) Active Problems: Hypothyroidism Severe protein-calorie malnutrition (HCC) Opioid use disorder Compulsive skin picking Methamphetamine abuse (HCC) Chronic osteomyelitis of right hand including fingers (HCC) Uncontrolled diabetes mellitus with hyperglycemia (HCC) Social anxiety disorder Resolved Problems: Dehydration Orthostatic hypotension Syncope I have examined the patient and consistent with the dietitian's findings found malnutrition presentof Severe (12/29/22 1555) degree. This is consistent with such due to Fat loss;Muscle loss;Weight loss (12/29/22 1555). I have also reviewed and agree with the dietitian's plan of care which include Diet change ordered;PFI Acquisition message sent to pharmacy regarding Vitamin K content of supplement;Oral nutritional supplement ordered/adjusted (01/03/23 1020). Schedule Imodium 2 mg twice daily with meals Increase Lactobacillus to 1 capsule at noon and 1700 Add once daily fiber supplement Obtain stool culture for GI pathogens Continue bactrim and augmentin for chronic osteomyelitis of R finger 5 (wound culture grew MRSA, strep A and bacteroides 10/27/22); suspect antibiotic associated diarrhea so may need to consider discontinuation of augmentin should above measures fail to improve diarrhea Document accurate stool frequency/consistently Will need outpatient follow up with hand surgeon regarding amputation of R finger 5 Dose of synthroid increased to 100 mcg starting 01/05/23 Update BMP, CBC tomorrow Decrease lantus to 22 units HS Add novolog CR 1:18 at lunch and HOLD sliding scale at lunch PHARMACOLOGIC VTE PROPHYLAXIS: This patient does not have an active medication from one of the medication groupers. CODE STATUS: Full Code EXPECTED DISCHARGE DATE: 01/08/2023 Case and plan of care were discussed with Dr. Chowdhury. I spent a total of 45 minutes coordinating, documenting, and providing care for this patient excluding time spent in the performance of separately billed services. Associated attestation - Jordy Chowdhury DO - 01/08/2023 1:36 PM EDT I have reviewed the advanced practitioner documentation and agree. I we will make sure patient is getting a bedtime snack to prevent morning hypoglycemia * Ria Sharp MD - 01/07/2023 9:48 AM EDT PHYSICIAN PROGRESS NOTE INPATIENT PSYCHIATRY [address] [address] Name: Gil Irby Location: [facility] [id number]-[id number]/A Date: 01/07/2023 Time: 9:49 AM Patient location: HOSPITAL. I was in a different facility from the patient. After connecting through [employer], patient was identified by name and date of and/or wristband checked. Patient (or authorized legal novelties sales representative) was then informed that this was a Telemedicine visit and was being conducted confidentially over secure lines. My office door was closed. No one else was in the room with me. Patient acknowledged consent and understanding of privacy and security of the Telemedicine visit and gave permission to have a telemedicine presenter stay in the room in order to assist with the history and to conduct the exam as needed. I informed the patient that I have reviewed their record in [employer] and presented the opportunity for them to ask any questions regarding the visit today. The patient agreed to participate. Commitment Status: 201 Patient seen in Treatment Team: seen by psychiatrist/physician Review: Nursing Notes Past 24 Hours Reviewed SUBJECTIVE: I have reviewed the recent clinic notes, discussed the patient's progress with the nursing staff and the patient is seen for a follow-up. He was little upset this morning as he was hiding them back to her and nurses confronted him about his psychotic irritated but he was able to calm himself down. He described that he is trying to learn more things, is eating healthier and his blood sugar is staying in a normal range and that his mood is also better. He is not having any suicidal thoughts or anger. He is denying any unsafe behaviors and is learning to manage his anxiety and stress better. He also reported that his hand is healingwell and is getting his dressing changed. He described that his anxiety is much less than before, he is currently not reporting any significant physical symptoms or medical concerns and is working onlearning about healthy diabetes and managing his blood sugars better. Medication Compliance: compliant with all prescribed medicines Participating in Treatment: selective attendance and needs encouragement to attend MENTAL STATUS EVALUATION: Appearance: age-appropriate Muscle strength and tone: normal muscle strength and tone Gait and Station: no abnormalities noted Personal Presentation: candid and cooperative. Behavior: appropriate within the milieu Speech: normal, rate, tone and volume Mood: anxious and depressed Affect: type - dysphoric; range - constricted; lability - no Associations: intact Thought Process: goal directed Abstract Reasoning: intact Thought Content: denies suicidal ideations, homicidal ideations, auditory hallucinations, visual hallucinations, delusions, impulsivity to act out or preoccupation with violence Orientation: alert and oriented to person, place, time and situation Recent and remote memory as evidenced by recall of recent circumstances and remote life events: intact Language as evidenced by ability to repeat phrase and name object: intact Fund of knowledge as evidenced by vocabulary and current/historical events: intact Attention span/concentration as evidenced by: following conversation - intact Insight: fair Judgment: fair PHYSICAL/CONSULT/LAB FINDINGS: BP: 92 mmHg/65 mmHg (01/07/23 0600) Pulse: 91 (01/07/23 0600) Temp: 37.61 C (01/07/23 0600) Resp: 16 (01/07/23 0600) SpO2: 95 % (01/06/23 06) Labs reviewed as indicated below: No labs today DANGEROUSNESS TO SELF/OTHERS ASSESSMENT UPDATE: therapeutic milieu has been used to help improve coping skills PATIENT REPORTED DEPRESSION SCREENING (PHQ9): PHQ9 Survey Results Last 24hours (since 01/06/2023) None DIAGNOSIS: Principal Problem: Bipolar 2 disorder, major depressive episode (HCC) Active Problems: Hypothyroidism Severe protein-calorie malnutrition (HCC) Opioid use disorder Compulsive skin picking Methamphetamine abuse (HCC) Chronic osteomyelitis of right hand including fingers (HCC) Uncontrolled diabetes mellitus with hyperglycemia (HCC) Social anxiety disorder Resolved Problems: Dehydration Orthostatic hypotension Syncope ASSESSMENT: Gil Irby is a 37 year old male with a past psychiatric history of ADHD and depression who was admitted to the 7A Inpatient Psychiatric Unit at [facility] ([facility]) on 12/27/2022 on a 201 (voluntary) commitment for depression with suicidal ideation. Gil continues to struggle with depression and anxiety and did not feel the addition of Buspar was helpful. He was agreeable to trying Zoloft instead to target both complaints. He is compliant with medications and showing improved participation in milieu programming. Would like to go to inpatient rehab after hospital discharge. PLAN: Inpatient psychiatric care is necessary because of suicidal potential . Plan of care includes: 1) 201 (voluntary) commitment 2) Safety Q15 minute checks 3) Supportive milieu and group therapy 4) Safe discharge planning Referrals to inpatient rehab being pursued by CM Referral for outpatient healthcare educator Referral for OP orthopaedic f/u appointment 5) Psychotropic Medications Discontinue Buspar 10mg BID d/t ineffectiveness Gabapentin 300mg TID Remeron Soltab 30mg QHS Seroquel 200mg QHS Zoloft 100mg Daily for depression/anxiety 6) Medical Needs Continue home medications as prescribed Appreciate internal medicine's and endocrinologies co management of hyperglycemia. Insulin regimen changed to address persistent hyperglycemia. Increased dose of Synthroid from 88mcg to 100mcg as TSH was 60 on labs today. 7) Labs/Imaging None pending. On antipsychotic therapy: HgbA1c 12/29/22 - 11.3% Lipid panel 12/29/22 - mildly elevated LDL Treatment options and alternatives reviewed with patient and they agree with the above plan. Information about current medications was provided to the patient including reasons why medicationsare being used, risks, benefits, side effects and alternatives to treatment (including no treatment). Signature: Physician - Ria Sharp MD * Jordy Chowdhury, - 01/06/2023 12:22 PM EDT Images from the original note were not included. [facility] 7A-7105/A INTERVAL HISTORY: Doing well, pleased with how his sugars are the last 24 hours Objective Physical Exam Most Recent Vital Signs: BP: 93 mmHg/67 mmHg (01/06/23599) Pulse: 89 (01/06/23599) Temp: 36.28 C (01/06/23599) Resp: 16 (01/06/23599) SpO2: 95 % (01/06/23599) Constitutional: no acute distress Psych: normal mood and affect, memory normal STUDIES: Encounter Orders Labs and other studies reviewed with pertinent findings noted below: Reviewed glucose, no significant hypoglycemia since yesterday afternoon Assessment and Plan IMPRESSION : Principal Problem: Bipolar 2 disorder, major depressive episode (HCC) Active Problems: Hypothyroidism Severe protein-calorie malnutrition (HCC) Opioid use disorder Compulsive skin picking Methamphetamine abuse (HCC) Chronic osteomyelitis of right hand including fingers (HCC) Uncontrolled diabetes mellitus with hyperglycemia (HCC) Social anxiety disorder Resolved Problems: Dehydration Orthostatic hypotension Syncope I have examined the patient and consistent with the dietitian's findings found malnutrition presentof Severe (12/29/22 1555) degree. This is consistent with such due to Fat loss;Muscle loss;Weight loss (12/29/22 1555). I have also reviewed and agree with the dietitian's plan of care which include Diet change ordered;PFI Acquisition message sent to pharmacy regarding Vitamin K content of supplement;Oral nutritional supplement ordered/adjusted (01/03/23 1020). DIFFERENTIAL AND PLAN: Continue with current Lantus dosing Continue with scheduled short-acting insulin with breakfast and supper. Continue only sliding scaleinsulin at lunchtime due to recurrent mid afternoon hypoglycemic events. Additional care per attending PHARMACOLOGIC VTE PROPHYLAXIS: This patient does not have an active medication from one of the medication groupers. CODE STATUS: Full Code EXPECTED DISCHARGE DATE: 01/08/2023 * Ria Sharp MD - 01/06/2023 9:10 AM EDT PHYSICIAN PROGRESS NOTE INPATIENT PSYCHIATRY [address] [address] Name: Gil Irby Location: [facility] [id number]-[id number]/A Date: 01/06/2023 Time: 9:10 AM Patient location: HOSPITAL. I was in a different facility from the patient. After connecting through [employer], patient was identified by name and date of and/or wristband checked. Patient (or authorized legal novelties sales representative) was then informed that this was a Telemedicine visit and was being conducted confidentially over secure lines. My office door was closed. No one else was in the room with me. Patient acknowledged consent and understanding of privacy and security of the Telemedicine visit and gave permission to have a telemedicine presenter stay in the room in order to assist with the history and to conduct the exam as needed. I informed the patient that I have reviewed their record in [facility] and presented the opportunity for them to ask any questions regarding the visit today. The patient agreed to participate. Comitment Status: 201 Patient seen in Treatment Team: seen by psychiatrist/physician Review: Case Reviewed in Treatment Team SUBJECTIVE: I have reviewed the recent clinical notes, the reviewed the progress with the patient with nursing staff and the patient is seen virtually. He described that he is making adequate progress and is feeling that his mood is relatively better,not feeling as depressed, denies any suicidal intentions or plans. Still struggles with anxiety. He has been participating in some family activities, feeling that his anxiety is relatively less but still certain situations make him quite anxious. The nursing report report mentioned that he apparently had a bedwetting last night and he was very upset about that but he calmed down and managed the situation better. No obvious psychotic symptoms.Has been compliant with the medicine, not reporting any adverse effects. Medication Compliance: compliant with all prescribed medicines Participating in Treatment: Attends programs, groups and activities MENTAL STATUS EVALUATION: Appearance: age-appropriate Muscle strength and tone: normal muscle strength and tone Gait and Station: no abnormalities noted Personal Presentation: open and friendly. Behavior: appropriate within the milieu Speech: normal, rate, tone and volume Mood: better Affect: type - better ; range - blunted; lability - yes Associations: intact Thought Process: goal directed Abstract Reasoning: intact Thought Content: denies suicidal ideations, homicidal ideations, auditory hallucinations, visual hallucinations, delusions, impulsivity to act out or preoccupation with violence Orientation: alert and oriented to person, place, time and situation Recent and remote memory as evidenced by recall of recent circumstances and remote life events: intact Language as evidenced by ability to repeat phrase and name object: intact Fund of knowledge as evidenced by vocabulary and current/historical events: intact Attention span/concentration as evidenced by: ability to sustain attention to examiner - intact Insight: age appropriate Judgment: age appropriate PHYSICAL/CONSULT/LAB FINDINGS: BP: 93 mmHg/67 mmHg (01/06/23599) Pulse: 89 (01/06/23599) Temp: 36.28 C (01/06/23599) Resp: 16 (01/06/23599) SpO2: 95 % (01/06/23599) Labs reviewed as indicated below: No labs Today DANGEROUSNESS TO SELF/OTHERS ASSESSMENT UPDATE: therapeutic milieu has been used to help improve coping skills PATIENT REPORTED DEPRESSION SCREENING (PHQ9): PHQ9 Survey Results Last 24hours (since 01/05/2023) None DIAGNOSIS: Principal Problem: Bipolar 2 disorder, major depressive episode (HCC) Active Problems: Hypothyroidism Severe protein-calorie malnutrition (HCC) Opioid use disorder Compulsive skin picking Methamphetamine abuse (HCC) Chronic osteomyelitis of right hand including fingers (HCC) Uncontrolled diabetes mellitus with hyperglycemia (HCC) Social anxiety disorder Resolved Problems: Dehydration Orthostatic hypotension Syncope ASSESSMENT: Gil Irby is a 37 year old male with a past psychiatric history of ADHD and depression who was admitted to the Inpatient Psychiatric Unit at [facility] ([facility]) on 12/27/2022 on a 201 (voluntary) commitment for depression with suicidal ideation. Gil continues to struggle with depression and anxiety and did not feel the addition of Buspar was helpful. He was agreeable to trying Zoloft instead to target both complaints. He is compliant with medications and showing improved participation in milieu programming. Would like to go to inpatient rehab after hospital discharge. PLAN: Inpatient psychiatric care is necessary because of suicidal potential . Plan of care includes: 1) 201 (voluntary) commitment 2) Safety Q15 minute checks 3) Supportive milieu and group therapy 4) Safe discharge planning Referrals to inpatient rehab being pursued by CM Referral for outpatient healthcare educator Referral for OP orthopaedic f/u appointment 5) Psychotropic Medications Discontinue Buspar 10mg BID d/t ineffectiveness Gabapentin 300mg TID Remeron Soltab 30mg QHS Seroquel 200mg QHS Zoloft 100mg Daily for depression/anxiety 6) Medical Needs Continue home medications as prescribed Appreciate internal medicine's and endocrinologies co management of hyperglycemia. Insulin regimen changed to address persistent hyperglycemia. Increased dose of Synthroid from 88mcg to 100mcg as TSH was 60 on labs today. 7) Labs/Imaging None pending. On antipsychotic therapy: HgbA1c 12/29/22 - 11.3% Lipid panel 12/29/22 - mildly elevated LDL Treatment options and alternatives reviewed with patient and they agree with the above plan. Information about current medications was provided to the patient including reasons why medicationsare being used, risks, benefits, side effects and alternatives to treatment (including no treatment). Signature: Physician - Ria Sharp MD * Luciana Jordysofya Ward, - 01/05/2023 3:07 PM EDT Images from the original note were not included. [facility] 7A-7105/A INTERVAL HISTORY: Patient denies symptoms at the time of my evaluation. But does get symptomatic when he is hypoglycemic. Having wide swings in his glucose readings Objective Physical Exam Most Recent Vital Signs: BP: 89 mmHg/32 mmHg (01/05/23599) Pulse: 66 (01/05/23599) Temp: 36.89 C (01/05/23599) Resp: 16 (01/05/23599) SpO2: 99 % (01/01/23599) Constitutional: no acute distress CV: normal rate and rhythm, no murmur, gallops or rub Chest: normal respiratory effort, lungs clear to auscultation and percussion STUDIES: Encounter Orders Labs and other studies reviewed with pertinent findings noted below: Reviewed glucose readings Assessment and Plan IMPRESSION : Principal Problem: Bipolar 2 disorder, major depressive episode (HCC) Active Problems: Hypothyroidism Severe protein-calorie malnutrition (HCC) Opioid use disorder Compulsive skin picking Methamphetamine abuse (HCC) Chronic osteomyelitis of right hand including fingers (HCC) Uncontrolled diabetes mellitus with hyperglycemia (HCC) Social anxiety disorder Resolved Problems: Dehydration Orthostatic hypotension Syncope I have examined the patient and consistent with the dietitian's findings found malnutrition presentof Severe (12/29/22 1555) degree. This is consistent with such due to Fat loss;Muscle loss;Weight loss (12/29/22 1555). I have also reviewed and agree with the dietitian's plan of care which include Diet change ordered;EPIC message sent to pharmacy regarding Vitamin K content of supplement;Oral nutritional supplement ordered/adjusted (01/03/23 1020). DIFFERENTIAL AND PLAN: Patient replied sings in his glucose readings even with adjusting his insulin. Today for the 2nd time in 2 days had significant hypoglycemia mid afternoon. Hyperglycemia was present in the morning. We will increase nighttime Lantus We will not give any short-acting insulin with lunch, continue to monitor PHARMACOLOGIC VTE PROPHYLAXIS: This patient does not have an active medication from one of the medication groupers. CODE STATUS: Full Code EXPECTED DISCHARGE DATE: 01/08/2023 * Palak Arroyo PA-C - 01/05/2023 7:56 AM EDT PHYSICIAN PROGRESS NOTE INPATIENT PSYCHIATRY [address] [place] [address] Name: Gil Irby Location: [facility] [id number]-[id number]/A Date: 01/05/2023 Time: 7:56 AM Commitment Status: 201 Review: Case Reviewed in Treatment Team and Nursing Notes Past 24 Hours Reviewed SUBJECTIVE: Gil Irby is seen for follow up today. Chart reviewed. No acute events through the night. Gil continues to improve. Depression is mild today. Rated a 2/10 (with 10 being the worst). Anxiety is also mild. Rated a 1/10 (with 10 being the worst). He see's the most improvement in his anxiety in group therapy. He was able to attend groups yesterday with tolerable levels of anxiety.He is pleased with this improvement and feels the medications are helpful. Denies suicidal ideation, homicidal ideation, auditory or visual hallucinations, or delusions. Reports good sleep and appetite. Attending and participating in group therapy. Tolerating medications well and denies side effects such as fatigue, headache, dizziness, changes in vision, chest pain, shortness of breath, nausea, vomiting, dysuria, constipation, abdominal pain, tremors, abnormal facial movements, or restlessness. Continues complaints of diarrhea that be attributes to antibiotic therapy. Asked for a probiotic to assist with gut health. He met with CM yesterday and began the process of referrals to inpatient rehab. He is looking forward to taking the next steps. Medication Compliance: compliant with all prescribed medicines PRN Medication Utilization: None in the last 24 hours. Participating in Treatment: Improved participation in milieu programming/investment in treatment Current Medication List: Current Facility-Administered Medications Medication Dose Route Frequency Provider Lactobacillus (Culturelle) cap 1 Capsule 1 Capsule Oral Daily(AM) Palak Arroyo PA-C insulin aspart (NovoLOG) inj Subcutaneous With meals Jordy Chowdhury DO Insulin Glargine (Lantus) inj 26 Units 26 Units Subcutaneous HS insulin Jordy Ed Chowdhury DO levothyroxine (Levoxyl) tab 100 mcg 100 mcg Oral Daily 0630 Jordy Chowdhury DO ondansetron (Zofran) tab 4 mg 4 mg Oral Q6H PRN Coco Jean MD insulin aspart (NovoLOG) inj Subcutaneous With meals Aditi Lincoln MD sertraline (Zoloft) tab 100 mg 100 mg Oral Daily(AM) Palak Arroyo PA-C loperamide (Imodium) cap 2 mg 2 mg Oral Q4H PRN Palak Arroyo PA-C home medication stored in pharmacy Does Not Apply Daily(AM) Coco Jean MD house antacid (Mi-Acid II) oral susp 15 mL 15 mL Oral Q4H PRN Coco Jean MD milk of magnesia (Mom) oral susp 30 mL 30 mL Oral Daily PRN Coco Jean MD Nicotine (Nicoderm CQ) 14 MG/24HR patch 1 Patch 1 Patch Transdermal Daily(AM) Coco Jean MD methADONE CONCentrated 10 mg/mL oral conc 107 mg 107 mg Oral Daily(AM) Marlon Banda MD mirtazapine ODT (Remeron Soltab) tab 30 mg 30 mg Oral HS Marlon Banda MD Acetaminophen (Tylenol) tab 975 mg 975 mg Oral Q6H PRN Cari Nvaarro PA-C amoxicillin-clavulanate (Augmentin) tab 875 mg 875 mg Oral BID(AM/PM) Cari Navarro PA-C dextrose 50 % inj 25 mL 25 mL IV Push PRN Cari Navarro PA-C dextrose 50 % inj 50 mL 50 mL IV Push PRN Cari Navarro PA-C Gabapentin (Neurontin) cap 300 mg 300 mg Oral TID(AM/NOON/HS) Cari Navarro PA-C glucagon (Glucagen) inj 1 mg 1 mg Intramuscular PRN Cari Navarro PA-C Glucose (Glutose 15) 40 % gel 15 g of glucose 15 g of glucose Oral PRN Cari Navarro PA-C Glucose (Glutose 15) 40 % gel 30 g of glucose 30 g of glucose Oral PRN Cari Navarro PA-C glucose chew tab 16 g 16 g Oral PRN Cari Navarro PA-C guaiFENesin-dm (Robitussin DM) oral syrup 10 mL 10 mL Oral Q6H PRN Cari Navarro PA-C melatonin tab 3 mg 3 mg Oral HS PRN Cari Navarro PA-C midodrine (Proamatine) tab 10 mg 10 mg Oral TID(AM/NOON/HS) Cari Navarro PA-C QUEtiapine (SEROquel) tab 200 mg 200 mg Oral HS Cari Navarro PA-C senna-docusate (Senokot-S) 1 Tablet 1 Tablet Oral Daily PRN Cari Navarro PA-C sulfamethoxazole-trimethoprim DS (Bactrim DS) 800-160 MG 1 Tablet 1 Tablet Oral BID(AM/PM) Cari Navarro PA-C MENTAL STATUS EVALUATION: Appearance: age-appropriate, bearded, and casually dressed, wearing beanie hat Muscle strength and tone: normal muscle strength and tone Gait and Station: steady with use of cane and leg brace Personal Presentation: candid and cooperative Behavior: appropriate and cooperative, good eye contact Speech: normal rate, tone, and soft volume Mood: "good" Affect: type - dysphoric, with occasional brightening; range - constricted; lability - no Associations: intact Thought Process: goal directed and logical Abstract Reasoning: not tested Thought Content: (-) SI, HI, no overt paranoia/delusions Perception: (-) AVH no disturbances appreciated Orientation: alert and oriented to person, place, time and situation Recent and remote memory as evidenced by recall of recent circumstances and remote life events: intact Language as evidenced by ability to repeat phrase and name object: intact Fund of knowledge as evidenced by vocabulary and current/historical events: intact Attention span/concentration as evidenced by: ability to sustain attention to examiner - intact Insight: fair as evidenced by help-seeking behavior and willingness to participate in treatment Judgment: good as evidenced by help-seeking behavior and willingness to participate in treatment PHYSICAL/CONSULT/LAB FINDINGS: BP: 89 mmHg/32 mmHg (01/05/23 0600) Pulse: 66 (01/05/23599) Temp: 36.89 C (01/05/23599) Resp: 16 (01/05/23599) SpO2: 99 % (01/01/23599) Labs reviewed as indicated below: Recent Results (from the past 48 hour(s)) GLUCOSE METER, POINT OF CARE Collection Time: 01/03/23 12:03 PM Result Value Ref Range Glucose Meter 260 (H) 70 - 120 mg/dL GLUCOSE METER, POINT OF CARE Collection Time: 01/03/23 4:31 PM Result Value Ref Range Glucose Meter 63 (L) 70 - 120 mg/dL GLUCOSE METER, POINT OF CARE Collection Time: 01/03/23 4:47 PM Result Value Ref Range Glucose Meter 75 70 - 120 mg/dL GLUCOSE METER, POINT OF CARE Collection Time: 01/03/23 8:12 PM Result Value Ref Range Glucose Meter 353 (H) 70 - 120 mg/dL GLUCOSE METER, POINT OF CARE Collection Time: 01/03/23 9:34 PM Result Value Ref Range Glucose Meter >500 (HH) 70 - 120 mg/dL Device Comment Notified Provider GLUCOSE METER, POINT OF CARE Collection Time: 01/03/23 10:26 PM Result Value Ref Range Glucose Meter 417 (H) 70 - 120 mg/dL GLUCOSE METER, POINT OF CARE Collection Time: 01/03/23 11:28 PM Result Value Ref Range Glucose Meter 309 (H) 70 - 120 mg/dL GLUCOSE METER, POINT OF CARE Collection Time: 01/04/23 7:43 AM Result Value Ref Range Glucose Meter 338 (H) 70 - 120 mg/dL GLUCOSE METER, POINT OF CARE Collection Time: 01/04/23 9:25 AM Result Value Ref Range Glucose Meter >500 (HH) 70 - 120 mg/dL Device Comment Notified Provider BASIC METABOLIC PANEL Collection Time: 01/04/23 9:42 AM Result Value Ref Range BUN 29 (H) 6 - 20 mg/dL Creatinine 1.0 0.6 - 1.2 mg/dL Estimated Glomerular Filtration Rate >90 >=60 mL/min Sodium 133 (L) 135 - 146 mmol/L Potassium 4.3 3.5 - 5.1 mmol/L Chloride 100 98 - 107 mmol/L CO2 24 22 - 32 mmol/L Anion Gap 9 7 - 15 mmol/L Glucose 575 (HH) 70 - 120 mg/dL Calcium 8.9 8.4 - 10.2 mg/dL TSH WITH FREE T4 IF INDICATED Collection Time: 01/04/23 9:42 AM Result Value Ref Range TSH 60.20 (H) 0.27 - 4.20 uIU/mL T4, FREE Collection Time: 01/04/23 9:42 AM Result Value Ref Range T4, Free 0.7 (L) 0.9 - 1.7 ng/dL GLUCOSE METER, POINT OF CARE Collection Time: 01/04/23 11:59 AM Result Value Ref Range Glucose Meter 227 (H) 70 - 120 mg/dL GLUCOSE METER, POINT OF CARE Collection Time: 01/04/23 3:18 PM Result Value Ref Range Glucose Meter 50 (L) 70 - 120 mg/dL GLUCOSE METER, POINT OF CARE Collection Time: 01/04/23 4:05 PM Result Value Ref Range Glucose Meter 180 (H) 70 - 120 mg/dL GLUCOSE METER, POINT OF CARE Collection Time: 01/04/23 4:30 PM Result Value Ref Range Glucose Meter 234 (H) 70 - 120 mg/dL GLUCOSE METER, POINT OF CARE Collection Time: 01/04/23 7:44 PM Result Value Ref Range Glucose Meter 203 (H) 70 - 120 mg/dL GLUCOSE METER, POINT OF CARE Collection Time: 01/05/23 2:34 AM Result Value Ref Range Glucose Meter 232 (H) 70 - 120 mg/dL GLUCOSE METER, POINT OF CARE Collection Time: 01/05/23 7:18 AM Result Value Ref Range Glucose Meter 251 (H) 70 - 120 mg/dL GLUCOSE METER, POINT OF CARE Collection Time: 01/05/23 11:02 AM Result Value Ref Range Glucose Meter 427 (H) 70 - 120 mg/dL DANGEROUSNESS TO SELF/OTHERS ASSESSMENT UPDATE: dangerousness to self/others has lessened and is now rated minimal risk PATIENT REPORTED DEPRESSION SCREENING (PHQ9): PHQ9 Survey Results Last 24hours (since 01/04/2023) None DIAGNOSIS: Principal Problem: Bipolar 2 disorder, major depressive episode (HCC) Active Problems: Hypothyroidism Severe protein-calorie malnutrition (HCC) Opioid use disorder Compulsive skin picking Methamphetamine abuse (HCC) Chronic osteomyelitis of right hand including fingers (HCC) Uncontrolled diabetes mellitus with hyperglycemia (HCC) Social anxiety disorder Resolved Problems: Dehydration Orthostatic hypotension Syncope ASSESSMENT: Gil Irby is a 37 year old male with a past psychiatric history of ADHD and depression who was admitted to the 7A Inpatient Psychiatric Unit at [facility] ([facility]) on 12/27/2022 on a 201 (voluntary) commitment for depression with suicidal ideation. Gil continues to struggle with depression and anxiety and did not feel the addition of Buspar was helpful. He was agreeable to trying Zoloft instead to target both complaints. He is compliant with medications and showing improved participation in milieu programming. Would like to go to inpatient rehab after hospital discharge. PLAN: Reviewed with Dr. Jean and treatment team. Inpatient psychiatric care is necessary because of suicidal potential . Plan of care includes: 1) 201 (voluntary) commitment 2) Safety Q15 minute checks 3) Supportive milieu and group therapy 4) Safe discharge planning Referrals to inpatient rehab being pursued by CM Referral for outpatient healthcare educator Referral for OP orthopaedic f/u appointment 5) Psychotropic Medications Discontinue Buspar 10mg BID d/t ineffectiveness Gabapentin 300mg TID Remeron Soltab 30mg QHS Seroquel 200mg QHS Zoloft 100mg Daily for depression/anxiety 6) Medical Needs Continue home medications as prescribed Appreciate internal medicine's and endocrinologies co management of hyperglycemia. Insulin regimen changed to address persistent hyperglycemia. Increased dose of Synthroid from 88mcg to 100mcg as TSH was 60 on labs today. 7) Labs/Imaging None pending. On antipsychotic therapy: HgbA1c 12/29/22 - 11.3% Lipid panel 12/29/22 - mildly elevated LDL Treatment options and alternatives reviewed with patient and they agree with the above plan. Information about current medications was provided to the patient including reasons why medicationsare being used, risks, benefits, side effects and alternatives to treatment (including no treatment). Signature: Palak Arroyo PA-C 01/05/2023 11:55 AM Associated attestation - Coco Jean MD - 01/05/2023 12:12 PM EDT I saw and evaluated the patient on date of service referenced in note and have supervised the performance of a medically appropriate history and/or exam by the Physician Real Estate Transaction Coordinator. I have reviewed the documentation and agree, with exceptions/additions as noted below: none Coco Jean MD Attending psychiatrist 01/05/23 12:12 PM * Jordy Chowdhury, DO - 01/04/2023 12:25 PM EDT Images from the original note were not included. [facility] [id number]-7105/A INTERVAL HISTORY: Patient continues with hyperglycemia. But has no attributable symptoms. Objective Physical Exam Most Recent Vital Signs: BP: 101 mmHg/69 mmHg (01/04/23 09) Pulse: 107 (01/04/23930) Temp: 36.5 C (01/04/23599) Resp: 16 (01/04/23599) SpO2: 99 % (01/01/23599) Constitutional: no acute distress HEENT: normal: normocephalic, atraumatic; no masses, tenderness, or adenopathy, mucous membranes moist Musculoskeletal: Right hand and sterile bandage Psych: normal mood and affect STUDIES: Encounter Orders Labs and other studies reviewed with pertinent findings noted below: Reviewed glucoses., reviewed hemoglobin A1c, greater than 11. Reviewed TSH last TSH was not therapeutic in October, Reviewed BMP Assessment and Plan IMPRESSION : Principal Problem: Bipolar 2 disorder, major depressive episode (HCC) Active Problems: Severe protein-calorie malnutrition (HCC) Opioid use disorder Compulsive skin picking Methamphetamine abuse (HCC) Chronic osteomyelitis of right hand including fingers (HCC) Uncontrolled diabetes mellitus with hyperglycemia (HCC) Social anxiety disorder Resolved Problems: Dehydration Orthostatic hypotension Syncope I have examined the patient and consistent with the dietitian's findings found malnutrition presentof Severe (12/29/22 1555) degree. This is consistent with such due to Fat loss;Muscle loss;Weight loss (12/29/22 1555). I have also reviewed and agree with the dietitian's plan of care which include Diet change ordered;EPIC message sent to pharmacy regarding Vitamin K content of supplement;Oral nutritional supplement ordered/adjusted (01/03/23 1020). DIFFERENTIAL AND PLAN: Patient at risk for significant decompensation disease with a significantly uncontrolled glucose requiring urgent laboratory studies Notified by nursing this morning of a sugar greater than 600 on fingerstick. Laboratory BMP confirms glucose greater than 500. Bicarb and anion gap normal, no evidence of DKA. Patient given additional NovoLog and Lantus this morning. Blood glucose significantly improved hereat lunch. We will increase his nighttime Lantus dosing to reflect total dosing that he is received today. Increase NovoLog with meals scheduled in addition to sliding scale Check TSH to evaluate if appropriately replaced. Sub therapeutically treated hypothyroidism could make diabetes management more difficult Continue antibiotics and wound care as directed by wound on chronic Augmentin for chronic osteomyelitis Update:, patient this afternoon now hypoglycemic. Receiving glucose tabs and juice. Patient's diabetes very labile to manage. We will continue plan dose for Lantus tonight. But will decrease his mealtime insulin. TSH now also resulted. Still significantly elevated with T4 low as well. Not on enough supplementation with Synthroid. We will increase Synthroid dosing. Better management of his thyroid disease we will also make his diabetes use your to manage. PHARMACOLOGIC VTE PROPHYLAXIS: This patient does not have an active medication from one of the medication groupers. CODE STATUS: Full Code EXPECTED DISCHARGE DATE: 01/08/2023 * Sample, Palak Sahu PA-C - 01/04/2023 7:50 AM EDT PHYSICIAN PROGRESS NOTE INPATIENT PSYCHIATRY [facility] [id number] Name: Gil Irby Location: [facility] [id number]-[id number] Date: 01/04/2023 Time: 7:50 AM Commitment Status: 201 Review: Case Reviewed in Treatment Team and Nursing Notes Past 24 Hours Reviewed SUBJECTIVE: Gil Irby is seen for follow up today. Chart reviewed. No acute events through the night. Gil is making slow, but steady progress. He is medication compliant and actively participating in milieu programming. Today, he reports feeling better. Depression is mild. Rated a 3/10 (with 10 being the worst). Anxiety is moderate. Rated a 5/10 (with 10 being the worst). Identifies an improvement in his depression since admission. Denies suicidal ideation, homicidal ideation, auditory or visual hallucinations, or delusions. Sleep is good. Appetite is "awesome". He is attending group therapy and working through his social anxiety as tolerated. Reports feeling "sluggish" today and thinks this is due to hyperglycemia. Denies other medication side effects such as fatigue, headache, dizziness, changes in vision, chest pain, shortness of breath, nausea, vomiting, dysuria, diarrhea, constipation, abdominal pain, tremors, abnormal facial movements, or restlessness. To better treat the patient, a screening for anxiety disorders was conducted today. Gil reports feeling anxious only in social situations such as group settings. He experiences increased anxiety when in group therapy on the unit, but this is decreasing each day as he adjusted to the environment. Reports having to stare at the floor when in public as he becomes very anxious if he makes eye contact with other people. He begins to have intrusive, racing thoughts that they are judging him and is unable to stop perseverating on what others think of him. He does not feel anxious when he is at home or other little things. Also screened him for a more accurate diagnosis of depression. Reports predominately presence of depressive episodes with occasional periods of increased goal directed activity, grandiosity, and decreased need for sleep. These periods typically last 1-2 days. He is unsure of the last time he had one of these episodes. Provided education on Bipolar II Disorder and how thishelps to guide his treatment plan/medication regimen. Medication Compliance: compliant with all prescribed medicines PRN Medication Utilization: None in the last 24 hours. Participating in Treatment: Improved participation in milieu programming/investment in treatment Current Medication List: Current Facility-Administered Medications Medication Dose Route Frequency Provider insulin aspart (NovoLOG) inj Subcutaneous With meals Jordy Chowdhury, DO Insulin Glargine (Lantus) inj 26 Units 26 Units Subcutaneous HS insulin Jordy Chowdhury, DO insulin aspart (NovoLOG) inj Subcutaneous With meals Aditi Lincoln MD sertraline (Zoloft) tab 100 mg 100 mg Oral Daily(AM) Palak Arroyo PA-C loperamide (Imodium) cap 2 mg 2 mg Oral Q4H PRN Palak Arroyo PA-C home medication stored in pharmacy Does Not Apply Daily(AM) Coco Jean MD house antacid (Mi-Acid II) oral susp 15 mL 15 mL Oral Q4H PRN Coco Jean MD milk of magnesia (Mom) oral susp 30 mL 30 mL Oral Daily PRN Coco Jean MD Nicotine (Nicoderm CQ) 14 MG/24HR patch 1 Patch 1 Patch Transdermal Daily(AM) Coco Jean MD methADONE CONCentrated 10 mg/mL oral conc 107 mg 107 mg Oral Daily(AM) Marlon Banda MD mirtazapine ODT (Remeron Soltab) tab 30 mg 30 mg Oral HS Marlon Banda MD Acetaminophen (Tylenol) tab 975 mg 975 mg Oral Q6H PRN Cari Navarro PA-C amoxicillin-clavulanate (Augmentin) tab 875 mg 875 mg Oral BID(AM/PM) Cari Navarro PA-C dextrose 50 % inj 25 mL 25 mL IV Push PRN Cari Navarro PA-C dextrose 50 % inj 50 mL 50 mL IV Push PRN Cari Navarro PA-C Gabapentin (Neurontin) cap 300 mg 300 mg Oral TID(AM/NOON/HS) Cari Navarro PA-C glucagon (Glucagen) inj 1 mg 1 mg Intramuscular PRN Cari Navarro PA-C Glucose (Glutose 15) 40 % gel 15 g of glucose 15 g of glucose Oral PRN Cari Navarro PA-C Glucose (Glutose 15) 40 % gel 30 g of glucose 30 g of glucose Oral PRN Cari Navarro PA-C glucose chew tab 16 g 16 g Oral PRN Cari Navarro PA-C guaiFENesin-dm (Robitussin DM) oral syrup 10 mL 10 mL Oral Q6H PRN Cari Navarro PA-C levothyroxine (Levoxyl) tab 88 mcg 88 mcg Oral Daily 0630 Cari Navarro PA-C melatonin tab 3 mg 3 mg Oral HS PRN Cari Navarro PA-C midodrine (Proamatine) tab 10 mg 10 mg Oral TID(AM/NOON/HS) Cari Navarro PA-C ondansetron (Zofran) inj 4 mg 4 mg IV Push Q6H PRN Cari Navarro PA-C QUEtiapine (SEROquel) tab 200 mg 200 mg Oral HS Cari Navarro PA-C senna-docusate (Senokot-S) 1 Tablet 1 Tablet Oral Daily PRN Cari Navarro PA-C sulfamethoxazole-trimethoprim DS (Bactrim DS) 800-160 MG 1 Tablet 1 Tablet Oral BID(AM/PM) Cari Navarro PA-C MENTAL STATUS EVALUATION: Appearance: age-appropriate, bearded, and casually dressed, wearing beanie hat Muscle strength and tone: normal muscle strength and tone Gait and Station: steady with use of cane and leg brace Personal Presentation: candid and cooperative Behavior: appropriate and cooperative, fair eye contact Speech: normal rate, tone, and soft volume Mood: "doing good" Affect: type - dysphoric, with occasional brightening; range - full range; lability - no Associations: intact Thought Process: goal directed and logical Abstract Reasoning: not tested Thought Content: (-) SI, HI, no overt paranoia/delusions Perception: (-) AVH no disturbances appreciated Orientation: alert and oriented to person, place, time and situation Recent and remote memory as evidenced by recall of recent circumstances and remote life events: intact Language as evidenced by ability to repeat phrase and name object: intact Fund of knowledge as evidenced by vocabulary and current/historical events: intact Attention span/concentration as evidenced by: ability to sustain attention to examiner - intact Insight: fair as evidenced by help-seeking behavior and willingness to participate in treatment Judgment: fair as evidenced by help-seeking behavior and willingness to participate in treatment PHYSICAL/CONSULT/LAB FINDINGS: BP: 62 mmHg/45 mmHg (01/04/23 06) Pulse: 97 (01/04/23 06) Temp: 36.5 C (01/04/23599) Resp: 16 (01/04/23 06) SpO2: 99 % (01/01/23599) Labs reviewed as indicated below: Recent Results (from the past 48 hour(s)) GLUCOSE METER, POINT OF CARE Collection Time: 01/02/23 4:57 PM Result Value Ref Range Glucose Meter 327 (H) 70 - 120 mg/dL GLUCOSE METER, POINT OF CARE Collection Time: 01/02/23 8:48 PM Result Value Ref Range Glucose Meter 308 (H) 70 - 120 mg/dL GLUCOSE METER, POINT OF CARE Collection Time: 01/03/23 7:16 AM Result Value Ref Range Glucose Meter 312 (H) 70 - 120 mg/dL GLUCOSE METER, POINT OF CARE Collection Time: 01/03/23 12:03 PM Result Value Ref Range Glucose Meter 260 (H) 70 - 120 mg/dL GLUCOSE METER, POINT OF CARE Collection Time: 01/03/23 4:31 PM Result Value Ref Range Glucose Meter 63 (L) 70 - 120 mg/dL GLUCOSE METER, POINT OF CARE Collection Time: 01/03/23 4:47 PM Result Value Ref Range Glucose Meter 75 70 - 120 mg/dL GLUCOSE METER, POINT OF CARE Collection Time: 01/03/23 8:12 PM Result Value Ref Range Glucose Meter 353 (H) 70 - 120 mg/dL GLUCOSE METER, POINT OF CARE Collection Time: 01/03/23 9:34 PM Result Value Ref Range Glucose Meter >500 (HH) 70 - 120 mg/dL Device Comment Notified Provider GLUCOSE METER, POINT OF CARE Collection Time: 01/03/23 10:26 PM Result Value Ref Range Glucose Meter 417 (H) 70 - 120 mg/dL GLUCOSE METER, POINT OF CARE Collection Time: 01/03/23 11:28 PM Result Value Ref Range Glucose Meter 309 (H) 70 - 120 mg/dL GLUCOSE METER, POINT OF CARE Collection Time: 01/04/23 7:43 AM Result Value Ref Range Glucose Meter 338 (H) 70 - 120 mg/dL GLUCOSE METER, POINT OF CARE Collection Time: 01/04/23 9:25 AM Result Value Ref Range Glucose Meter >500 (HH) 70 - 120 mg/dL Device Comment Notified Provider BASIC METABOLIC PANEL Collection Time: 01/04/23 9:42 AM Result Value Ref Range BUN 29 (H) 6 - 20 mg/dL Creatinine 1.0 0.6 - 1.2 mg/dL Estimated Glomerular Filtration Rate >90 >=60 mL/min Sodium 133 (L) 135 - 146 mmol/L Potassium 4.3 3.5 - 5.1 mmol/L Chloride 100 98 - 107 mmol/L CO2 24 22 - 32 mmol/L Anion Gap 9 7 - 15 mmol/L Glucose 575 (HH) 70 - 120 mg/dL Calcium 8.9 8.4 - 10.2 mg/dL TSH WITH FREE T4 IF INDICATED Collection Time: 01/04/23 9:42 AM Result Value Ref Range TSH 60.20 (H) 0.27 - 4.20 uIU/mL T4, FREE Collection Time: 01/04/23 9:42 AM Result Value Ref Range T4, Free 0.7 (L) 0.9 - 1.7 ng/dL DANGEROUSNESS TO SELF/OTHERS ASSESSMENT UPDATE: dangerousness to self/others has lessened and is now rated minimal risk PATIENT REPORTED DEPRESSION SCREENING (PHQ9): PHQ9 Survey Results Last 24hours (since 01/03/2023) None DIAGNOSIS: Principal Problem: Bipolar 2 disorder, major depressive episode (HCC) Active Problems: Severe protein-calorie malnutrition (HCC) Opioid use disorder Compulsive skin picking Dehydration Orthostatic hypotension Methamphetamine abuse (HCC) Chronic osteomyelitis of right hand including fingers (HCC) Syncope Uncontrolled diabetes mellitus with hyperglycemia (HCC) Social anxiety disorder Resolved Problems: * No resolved hospital problems. * ASSESSMENT: Gil Irby is a 37 year old male with a past psychiatric history of ADHD and depression who was admitted to the Inpatient Psychiatric Unit at [facility] ([facility]) on 12/27/2022 on a 201 (voluntary) commitment for depression with suicidal ideation. Gil continues to struggle with depression and anxiety and did not feel the addition of Buspar was helpful. He was agreeable to trying Zoloft instead to target both complaints. He is compliant with medications and showing improved participation in milieu programming. Would like to go to inpatient rehab after hospital discharge. PLAN: Reviewed with Dr. Jean and treatment team. Inpatient psychiatric care is necessary because of suicidal potential . Plan of care includes: 1) 201 (voluntary) commitment 2) Safety Q15 minute checks 3) Supportive milieu and group therapy 4) Safe discharge planning Referrals to inpatient rehab being pursued by CM Referral for outpatient healthcare educator Referral for OP orthopaedic f/u appointment 5) Psychotropic Medications Discontinue Buspar 10mg BID d/t ineffectiveness Gabapentin 300mg TID Remeron Soltab 30mg QHS Seroquel 200mg QHS Zoloft 100mg Daily for depression/anxiety 6) Medical Needs Continue home medications as prescribed Appreciate internal medicine's and endocrinologies co management of hyperglycemia. Insulin regimen changed to address persistent hyperglycemia. Increased dose of Synthroid from 88mcg to 100mcg as TSH was 60 on labs today. 7) Labs/Imaging None pending. On antipsychotic therapy: HgbA1c 12/29/22 - 11.3% Lipid panel 12/29/22 - mildly elevated LDL Treatment options and alternatives reviewed with patient and they agree with the above plan. Information about current medications was provided to the patient including reasons why medicationsare being used, risks, benefits, side effects and alternatives to treatment (including no treatment). Signature: Palak Arroyo PA-C 01/04/2023 1:57 PM Associated attestation - Coco Jean MD - 01/04/2023 3:51 PM EDT I saw and evaluated the patient on date of service referenced in note and have supervised the performance of a medically appropriate history and/or exam by the Physician Real Estate Transaction Coordinator. I have reviewed the documentation and agree, with exceptions/additions as noted below: none Coco Jean MD Attending psychiatrist 01/04/23 3:51 PM * Palak Arroyo PA-C - 01/03/2023 8:38 AM EDT PHYSICIAN PROGRESS NOTE INPATIENT PSYCHIATRY [facility] [address] Name: Gil Irby Location: [facility] [id number] Date: 01/03/2023 Time: 8:38 AM Commitment Status: 201 Review: Case Reviewed in Treatment Team and Nursing Notes Past 24 Hours Reviewed SUBJECTIVE: Gil Irby is seen for follow up today. Chart reviewed. No acute events through the night. Gil is reporting improvement in symptoms today. Most notably, his symptoms has improved because his daughter visited him and he talked with her on the phone. He does not feel so isolated now that his family has reached out to him. Depression is mild. Rated a 4/10 (with 10 being the worst). Anxiety is also mild. Rated a 4/10 (with 10 being the worst). Denies suicidal ideation, homicidal ideation, auditory or visual hallucinations, or delusions. Sleep and appetite are good. Tolerating medications well. Denies medication side effects such as fatigue, headache, dizziness, changes in vision, chest pain, shortness of breath, nausea, vomiting, dysuria, diarrhea, constipation, abdominal pain, tremors, abnormal facial movements, or restlessness. Group therapy is going well and he is particularly proud of himself for overcoming his social anxiety and participating in groups. He is stillinterested in going to inpatient rehab once psychiatrically stable. Agreeable to increase Zoloft totarget remaining depression/anxiety. Medication Compliance: compliant with all prescribed medicines PRN Medication Utilization: None in the last 24 hours. Participating in Treatment: Improved participation in milieu programming/investment in treatment Current Medication List: Current Facility-Administered Medications Medication Dose Route Frequency Provider insulin aspart (NovoLOG) inj 4 Units 4 Units Subcutaneous With meals Aditi Lincoln MD insulin aspart (NovoLOG) inj Subcutaneous With Meals and HS Coco Jean MD Insulin Glargine (Lantus) inj 20 Units 20 Units Subcutaneous HS insulin Nery Collier PA-C [START ON 01/04/2023] sertraline (Zoloft) tab 100 mg 100 mg Oral Daily(AM) Palak Arroyo PA-C loperamide (Imodium) cap 2 mg 2 mg Oral Q4H PRN Palak Arroyo PA-C home medication stored in pharmacy Does Not Apply Daily(AM) Coco Jean MD house antacid (Mi-Acid II) oral susp 15 mL 15 mL Oral Q4H PRN Coco Jean MD milk of magnesia (Mom) oral susp 30 mL 30 mL Oral Daily PRN Coco Jean MD Nicotine (Nicoderm CQ) 14 MG/24HR patch 1 Patch 1 Patch Transdermal Daily(AM) Coco Jean MD methADONE CONCentrated 10 mg/mL oral conc 107 mg 107 mg Oral Daily(AM) Marlon Banda MD mirtazapine ODT (Remeron Soltab) tab 30 mg 30 mg Oral HS Marlon Banda MD Acetaminophen (Tylenol) tab 975 mg 975 mg Oral Q6H PRN Cari Navarro PA-C amoxicillin-clavulanate (Augmentin) tab 875 mg 875 mg Oral BID(AM/PM) Cari Navarro PA-C dextrose 50 % inj 25 mL 25 mL IV Push PRN Cari Navarro PA-C dextrose 50 % inj 50 mL 50 mL IV Push PRN Cari Navarro PA-C Gabapentin (Neurontin) cap 300 mg 300 mg Oral TID(AM/NOON/HS) Cari Navarro PA-C glucagon (Glucagen) inj 1 mg 1 mg Intramuscular PRN Cari Navarro PA-C Glucose (Glutose 15) 40 % gel 15 g of glucose 15 g of glucose Oral PRN Cari Navarro PA-C Glucose (Glutose 15) 40 % gel 30 g of glucose 30 g of glucose Oral PRN Cari Navarro PA-C glucose chew tab 16 g 16 g Oral PRN Cari Navarro PA-C guaiFENesin-dm (Robitussin DM) oral syrup 10 mL 10 mL Oral Q6H PRN Cari Navarro PA-C levothyroxine (Levoxyl) tab 88 mcg 88 mcg Oral Daily 0630 Cari Navarro PA-C melatonin tab 3 mg 3 mg Oral HS PRN Cari Navarro PA-C midodrine (Proamatine) tab 10 mg 10 mg Oral TID(AM/NOON/HS) Cari Navarro PA-C ondansetron (Zofran) inj 4 mg 4 mg IV Push Q6H PRN Cari Navarro PA-C QUEtiapine (SEROquel) tab 200 mg 200 mg Oral HS Cari Navarro PA-C senna-docusate (Senokot-S) 1 Tablet 1 Tablet Oral Daily PRN Cari Navarro PA-C sulfamethoxazole-trimethoprim DS (Bactrim DS) 800-160 MG 1 Tablet 1 Tablet Oral BID(AM/PM) Cari Navarro PA-C MENTAL STATUS EVALUATION: Appearance: age-appropriate, bearded, and casually dressed, wearing beanie hat Muscle strength and tone: normal muscle strength and tone Gait and Station: steady with use of cane Personal Presentation: candid and cooperative Behavior: appropriate and cooperative Speech: normal rate, tone, and soft volume Mood: "better" Affect: type - dysphoric; range - full range; lability - no Associations: intact Thought Process: goal directed and logical Abstract Reasoning: not tested Thought Content: (-) SI, HI, no overt paranoia/delusions Perception: (-) AVH no disturbances appreciated Orientation: alert and oriented to person, place, time and situation Recent and remote memory as evidenced by recall of recent circumstances and remote life events: intact Language as evidenced by ability to repeat phrase and name object: intact Fund of knowledge as evidenced by vocabulary and current/historical events: intact Attention span/concentration as evidenced by: ability to sustain attention to examiner - intact Insight: fair as evidenced by help-seeking behavior and willingness to participate in treatment Judgment: fair as evidenced by help-seeking behavior and willingness to participate in treatment PHYSICAL/CONSULT/LAB FINDINGS: BP: 90 mmHg/67 mmHg (01/03/23 06) Pulse: 92 (01/03/23599) Temp: 37.17 C (01/03/23599) Resp: 16 (01/03/23599) SpO2: 99 % (01/01/23599) Labs reviewed as indicated below: Recent Results (from the past 48 hour(s)) GLUCOSE METER, POINT OF CARE Collection Time: 01/01/23 4:50 PM Result Value Ref Range Glucose Meter 225 (H) 70 - 120 mg/dL GLUCOSE METER, POINT OF CARE Collection Time: 01/01/23 8:20 PM Result Value Ref Range Glucose Meter 249 (H) 70 - 120 mg/dL CLOSTRIDIUM DIFFICILE, PCR Collection Time: 01/01/23 10:05 PM Result Value Ref Range Stool Consistency Semi-liquid Clostridium difficile Result Negative Negative. No C. difficile toxin B gene DNA detected by PCR (Amplified Probe). GLUCOSE METER, POINT OF CARE Collection Time: 01/02/23 7:33 AM Result Value Ref Range Glucose Meter 313 (H) 70 - 120 mg/dL GLUCOSE METER, POINT OF CARE Collection Time: 01/02/23 11:40 AM Result Value Ref Range Glucose Meter 333 (H) 70 - 120 mg/dL GLUCOSE METER, POINT OF CARE Collection Time: 01/02/23 4:57 PM Result Value Ref Range Glucose Meter 327 (H) 70 - 120 mg/dL GLUCOSE METER, POINT OF CARE Collection Time: 01/02/23 8:48 PM Result Value Ref Range Glucose Meter 308 (H) 70 - 120 mg/dL GLUCOSE METER, POINT OF CARE Collection Time: 01/03/23 7:16 AM Result Value Ref Range Glucose Meter 312 (H) 70 - 120 mg/dL GLUCOSE METER, POINT OF CARE Collection Time: 10/18/23 12:03 PM Result Value Ref Range Glucose Meter 260 (H) 70 - 120 mg/dL DANGEROUSNESS TO SELF/OTHERS ASSESSMENT UPDATE: dangerousness to self/others has lessened and is now rated minimal risk PATIENT REPORTED DEPRESSION SCREENING (PHQ9): PHQ9 Survey Results Last 24hours (since 01/02/2023) None DIAGNOSIS: Principal Problem: Depression Active Problems: Severe protein-calorie malnutrition (HCC) Opioid use disorder Compulsive skin picking Dehydration Orthostatic hypotension Methamphetamine abuse (HCC) Chronic osteomyelitis of right hand including fingers (HCC) Syncope Uncontrolled diabetes mellitus with hyperglycemia (HCC) Anxiety disorder Resolved Problems: * No resolved hospital problems. * ASSESSMENT: Gil Irby is a 37 year old male with a past psychiatric history of ADHD and depression who was admitted to the Inpatient Psychiatric Unit at [facility] ([facility]) on 12/27/2022 on a 201 (voluntary) commitment for depression with suicidal ideation. Gil continues to struggle with depression and anxiety and did not feel the addition of Buspar was helpful. He was agreeable to trying Zoloft instead to target both complaints. He is compliant with medications and showing improved participation in milieu programming. Would like to go to inpatient rehab after hospital discharge. PLAN: Reviewed with Dr. Jean and treatment team. Inpatient psychiatric care is necessary because of suicidal potential . Plan of care includes: 1) 201 (voluntary) commitment 2) Safety Q15 minute checks 3) Supportive milieu and group therapy 4) Safe discharge planning Referrals to inpatient rehab being pursued by CM Referral for outpatient healthcare educator Referral for OP orthopaedic f/u appointment 5) Psychotropic Medications Discontinue Buspar 10mg BID d/t ineffectiveness Gabapentin 300mg TID Remeron Soltab 30mg QHS Seroquel 200mg QHS Zoloft 100mg Daily for depression/anxiety 6) Medical Needs Continue home medications as prescribed Patient seen by internal medicine and air quality specialist today. Insulin regimen changed to address persistent hyperglycemia. Endocrinology consult placed for further management of uncontrolled DM. 7) Labs/Imaging None pending. On antipsychotic therapy: HgbA1c 12/29/22 - 11.3% Lipid panel 12/29/22 - mildly elevated LDL Treatment options and alternatives reviewed with patient and they agree with the above plan. Information about current medications was provided to the patient including reasons why medicationsare being used, risks, benefits, side effects and alternatives to treatment (including no treatment). Signature: Palak Arroyo PA-C 01/03/2023 2:31 PM Associated attestation - Coco Jean MD - 01/03/2023 3:59 PM EDT I saw and evaluated the patient on date of service referenced in note and have supervised the performance of a medically appropriate history and/or exam by the Physician Real Estate Transaction Coordinator. I have reviewed the documentation and agree, with exceptions/additions as noted below: none Coco Jean MD Attending psychiatrist 01/03/23 3:59 PM * Palak Arroyo PA-C - 01/02/2023 7:52 AM EDT PHYSICIAN PROGRESS NOTE INPATIENT PSYCHIATRY [address] [address] Name: Gil Irby Location: [facility] [id number] Date: 01/02/2023 Time: 7:52 AM Commitment Status: 201 Review: Case Reviewed in Treatment Team and Nursing Notes Past 24 Hours Reviewed SUBJECTIVE: Gil Irby is seen for follow up today. Chart reviewed. No acute events through the night. Gil is feeling increasingly depressed today as he has not heard from his family since hisadmission to . He is feeling like they do not care about him and is upset they have not come to visit. He also does not have their phone numbers, or his cell phone, to call them himself. He was provided his sister's phone number as she was listed as his emergency contact. He was grateful for thisand felt some relief just having a family members number to call. His anxiety is still elevated from baseline today and rated a 6/10 (with 10 being the worst). Denies suicidal ideation, homicidal idea tion, auditory or visual hallucinations, or delusions. Sleep is good. Appetite is good, but he is frustrated with his diet. The carb counting is difficult and often leaves him feeling hungry in between meals. Offered education with air quality specialist to go over which foods he could eat that would help him feel more satisfied. He agreed and was thankful for this. Continues to have dizziness, but it has notworsened. Also reports diarrhea that is bothersome, but found the Imodium helpful. Denies other side effects such as fatigue, headache, changes in vision, chest pain, shortness of breath, nausea, vomiting, dysuria, constipation, abdominal pain, tremors, abnormal facial movements, or restlessness. Medication Compliance: compliant with all prescribed medicines PRN Medication Utilization: None in the last 24 hours. Participating in Treatment: selective attendance and needs encouragement to attend Current Medication List: Current Facility-Administered Medications Medication Dose Route Frequency Provider loperamide (Imodium) cap 2 mg 2 mg Oral Q4H PRN Palak Arroyo PA-C sertraline (Zoloft) tab 50 mg 50 mg Oral Daily(AM) Palak Arroyo PA-C home medication stored in pharmacy Does Not Apply Daily(AM) Coco Jean MD house antacid (Mi-Acid II) oral susp 15 mL 15 mL Oral Q4H PRN Coco Jean MD LiquaCel 30 mL Oral BID(AM/PM) Marlon Banda MD milk of magnesia (Mom) oral susp 30 mL 30 mL Oral Daily PRN Coco Jean MD Nicotine (Nicoderm CQ) 14 MG/24HR patch 1 Patch 1 Patch Transdermal Daily(AM) Coco Jean MD methADONE CONCentrated 10 mg/mL oral conc 107 mg 107 mg Oral Daily(AM) Marlon Banda MD mirtazapine ODT (Remeron Soltab) tab 30 mg 30 mg Oral HS Marlon Banda MD Acetaminophen (Tylenol) tab 975 mg 975 mg Oral Q6H PRN Cari Navarro PA-C amoxicillin-clavulanate (Augmentin) tab 875 mg 875 mg Oral BID(AM/PM) Cari Navarro PA-C dextrose 50 % inj 25 mL 25 mL IV Push PRN Cari Navarro PA-C dextrose 50 % inj 50 mL 50 mL IV Push PRN Cari Navarro PA-C Gabapentin (Neurontin) cap 300 mg 300 mg Oral TID(AM/NOON/HS) Cari Navarro PA-C glucagon (Glucagen) inj 1 mg 1 mg Intramuscular PRN Cari Navarro PA-C Glucose (Glutose 15) 40 % gel 15 g of glucose 15 g of glucose Oral PRN Cari Navarro PA-C Glucose (Glutose 15) 40 % gel 30 g of glucose 30 g of glucose Oral PRN Cari Navarro PA-C glucose chew tab 16 g 16 g Oral PRN Cari Navarro PA-C guaiFENesin-dm (Robitussin DM) oral syrup 10 mL 10 mL Oral Q6H PRN Cari Navarro PA-C insulin aspart (NovoLOG) inj Subcutaneous With Meals and HS Cari Navarro PA-C Insulin Glargine (Lantus) inj 12 Units 12 Units Subcutaneous HS insulin Cari Navarro PA-C levothyroxine (Levoxyl) tab 88 mcg 88 mcg Oral Daily 0630 Cari Navarro PA-C melatonin tab 3 mg 3 mg Oral HS PRN Cari Navarro PA-C midodrine (Proamatine) tab 10 mg 10 mg Oral TID(AM/NOON/HS) Cari Navarro PA-C ondansetron (Zofran) inj 4 mg 4 mg IV Push Q6H PRN Cari Navarro PA-C QUEtiapine (SEROquel) tab 200 mg 200 mg Oral HS Cari Navarro PA-C senna-docusate (Senokot-S) 1 Tablet 1 Tablet Oral Daily PRN Cari Navarro PA-C sulfamethoxazole-trimethoprim DS (Bactrim DS) 800-160 MG 1 Tablet 1 Tablet Oral BID(AM/PM) Cari Navarro PA-C MENTAL STATUS EVALUATION: Appearance: age-appropriate, bearded, and casually dressed, wearing beanie hat Muscle strength and tone: normal muscle strength and tone Gait and Station: steady with use of cane Personal Presentation: candid and cooperative. Behavior: appropriate and cooperative, still quiet/withdrawn Speech: normal rate, tone, and soft volume Mood: anxious and depressed Affect: type - dysphoric; range - blunted; lability - no Associations: intact Thought Process: goal directed and logical Abstract Reasoning: not tested Thought Content: (-) SI, HI, no overt paranoia/delusions Perception: (-) AVH Orientation: alert and oriented to person, place, time and situation Recent and remote memory as evidenced by recall of recent circumstances and remote life events: intact Language as evidenced by ability to repeat phrase and name object: intact Fund of knowledge as evidenced by vocabulary and current/historical events: intact Attention span/concentration as evidenced by: ability to sustain attention to examiner - intact Insight: fair as evidenced by help-seeking behavior and willingness to participate in treatment Judgment: fair as evidenced by help-seeking behavior and willingness to participate in treatment PHYSICAL/CONSULT/LAB FINDINGS: BP: 112 mmHg/82 mmHg (01/02/23599) Pulse: 84 (01/02/23599) Temp: 36.89 C (01/02/23599) Resp: 18 (01/02/23599) SpO2: 99 % (01/01/23599) Labs reviewed as indicated below: Recent Results (from the past 48 hour(s)) GLUCOSE METER, POINT OF CARE Collection Time: 12/31/22 11:39 AM Result Value Ref Range Glucose Meter 281 (H) 70 - 120 mg/dL GLUCOSE METER, POINT OF CARE Collection Time: 12/31/22 4:40 PM Result Value Ref Range Glucose Meter 254 (H) 70 - 120 mg/dL GLUCOSE METER, POINT OF CARE Collection Time: 12/31/22 8:05 PM Result Value Ref Range Glucose Meter 300 (H) 70 - 120 mg/dL GLUCOSE METER, POINT OF CARE Collection Time: 01/01/23 7:25 AM Result Value Ref Range Glucose Meter 356 (H) 70 - 120 mg/dL GLUCOSE METER, POINT OF CARE Collection Time: 01/01/23 11:38 AM Result Value Ref Range Glucose Meter 419 (H) 70 - 120 mg/dL GLUCOSE METER, POINT OF CARE Collection Time: 01/01/23 4:50 PM Result Value Ref Range Glucose Meter 225 (H) 70 - 120 mg/dL GLUCOSE METER, POINT OF CARE Collection Time: 01/01/23 8:20 PM Result Value Ref Range Glucose Meter 249 (H) 70 - 120 mg/dL CLOSTRIDIUM DIFFICILE, PCR Collection Time: 01/01/23 10:05 PM Result Value Ref Range Stool Consistency Semi-liquid Clostridium difficile Result Negative Negative. No C. difficile toxin B gene DNA detected by PCR (Amplified Probe). GLUCOSE METER, POINT OF CARE Collection Time: 01/02/23 7:33 AM Result Value Ref Range Glucose Meter 313 (H) 70 - 120 mg/dL DANGEROUSNESS TO SELF/OTHERS ASSESSMENT UPDATE: dangerousness to self/others has lessened and is now rated minimal risk PATIENT REPORTED DEPRESSION SCREENING (PHQ9): PHQ9 Survey Results Last 24hours (since 01/01/2023) None DIAGNOSIS: Principal Problem: Depression Active Problems: Severe protein-calorie malnutrition (HCC) Opioid use disorder Compulsive skin picking Dehydration Orthostatic hypotension Methamphetamine abuse (HCC) Chronic osteomyelitis of right hand including fingers (HCC) Syncope Uncontrolled diabetes mellitus with hyperglycemia (HCC) Anxiety disorder Resolved Problems: * No resolved hospital problems. * ASSESSMENT: Gil Irby is a 37 year old male with a past psychiatric history of ADHD and depression who was admitted to the Inpatient Psychiatric Unit at [facility] ([facility]) on 12/27/2022 on a 201 (voluntary) commitment for depression with suicidal ideation. Gil continues to struggle with depression and anxiety and did not feel the addition of Buspar was helpful. He was agreeable to trying Zoloft instead to target both complaints. He is compliant with medications and showing improved participation in milieu programming. Would like to go to inpatient rehab after hospital discharge. PLAN: Reviewed with Dr. Jean and treatment team. Inpatient psychiatric care is necessary because of suicidal potential . Plan of care includes: 1) 201 (voluntary) commitment 2) Safety Q15 minute checks 3) Supportive milieu and group therapy 4) Safe discharge planning Referrals to inpatient rehab being pursued by CM 5) Psychotropic Medications Discontinue Buspar 10mg BID d/t ineffectiveness Gabapentin 300mg TID Remeron Soltab 30mg QHS Seroquel 200mg QHS Zoloft 50mg Daily for depression/anxiety 6) Medical Needs Continue home medications as prescribed Watching FSBS. Patient receiving appropriate coverage via sliding scale. However, may need to involve internal medicine if FSBS continue to be elevated. 7) Labs/Imaging None pending. On antipsychotic therapy: HgbA1c 12/29/22 - 11.3% Lipid panel 12/29/22 - mildly elevated LDL Treatment options and alternatives reviewed with patient and they agree with the above plan. Information about current medications was provided to the patient including reasons why medicationsare being used, risks, benefits, side effects and alternatives to treatment (including no treatment). Signature: Palak Arroyo PA-C 01/02/2023 11:13 AM Associated attestation - Coco Jean MD - 01/02/2023 2:07 PM EDT I saw and evaluated the patient on date of service referenced in note and have supervised the performance of a medically appropriate history and/or exam by the Physician Real Estate Transaction Coordinator. I have reviewed the documentation and agree, with exceptions/additions as noted below: none Coco Jean MD Attending psychiatrist 01/02/23 2:07 PM * Palak Arroyo PA-C - 01/01/2023 9:05 AM EDT PHYSICIAN PROGRESS NOTE INPATIENT PSYCHIATRY [address] [address] Name: Gil Irby Location: [facility] [id number] Date: 01/01/2023 Time: 9:05 AM Commitment Status: 201 Review: Case Reviewed in Treatment Team and Nursing Notes Past 24 Hours Reviewed SUBJECTIVE: Gil Irby is seen for follow up today. Chart reviewed. No acute events through the night. Gil is adjusting to the milieu, but continues to struggle with significant depression andanxiety. Depression is rated a 7/10 (with 10 being the worst). Anxiety is rated a 7/10 (with 10 being the worst). He does not feel his current medications are helping the depression and anxiety. Reports long history of being on Seroquel and Remeron, but the symptoms he has now are new. Does not feel the Buspar is helping. Agreeable to discontinuing Buspar and starting Zoloft. Denies suicidal ideation, homicidal ideation, auditory or visual hallucinations, or delusions. Sleep is "actually good." Appetite is WNL. He is tolerating the medications well and denies side effects such as fatigue, headache, dizziness, changes in vision, chest pain, shortness of breath, nausea, vomiting, dysuria, constipation, abdominal pain, tremors, abnormal facial movements, or restlessness. Endorses occasional loose stool that began 2 days ago. Not bothersome and has not happened yet today. Medication Compliance: compliant with all prescribed medicines PRN Medication Utilization: None in the last 24 hours. Participating in Treatment: selective attendance and needs encouragement to attend Current Medication List: Current Facility-Administered Medications Medication Dose Route Frequency Provider busPIRone (Buspar) tab 5 mg 5 mg Oral QHS Palak Arroyo PA-C sertraline (Zoloft) tab 25 mg 25 mg Oral Daily(AM) Palak Arroyo PA-C home medication stored in pharmacy Does Not Apply Daily(AM) Coco Jean MD house antacid (Mi-Acid II) oral susp 15 mL 15 mL Oral Q4H PRN Coco Jean MD LiquaCel 30 mL Oral BID(AM/PM) Marlon Banda MD milk of magnesia (Mom) oral susp 30 mL 30 mL Oral Daily PRN Coco Jean MD Nicotine (Nicoderm CQ) 14 MG/24HR patch 1 Patch 1 Patch Transdermal Daily(AM) Coco Jean MD methADONE CONCentrated 10 mg/mL oral conc 107 mg 107 mg Oral Daily(AM) Marlon Banda MD mirtazapine ODT (Remeron Soltab) tab 30 mg 30 mg Oral HS Marlon Banda MD Acetaminophen (Tylenol) tab 975 mg 975 mg Oral Q6H PRN Cari Navarro PA-C amoxicillin-clavulanate (Augmentin) tab 875 mg 875 mg Oral BID(AM/PM) Cari Navarro PA-C dextrose 50 % inj 25 mL 25 mL IV Push PRN Cari Navarro PA-C dextrose 50 % inj 50 mL 50 mL IV Push PRN Cari Navarro PA-C Gabapentin (Neurontin) cap 300 mg 300 mg Oral TID(AM/NOON/HS) Cari Navarro PA-C glucagon (Glucagen) inj 1 mg 1 mg Intramuscular PRN Cari Navarro PA-C Glucose (Glutose 15) 40 % gel 15 g of glucose 15 g of glucose Oral PRN Cari Navarro PA-C Glucose (Glutose 15) 40 % gel 30 g of glucose 30 g of glucose Oral PRN Cari Navarro PA-C glucose chew tab 16 g 16 g Oral PRN Cari Navarro PA-C guaiFENesin-dm (Robitussin DM) oral syrup 10 mL 10 mL Oral Q6H PRN Cari Navarro PA-C insulin aspart (NovoLOG) inj Subcutaneous With Meals and HS Cari Navarro PA-C Insulin Glargine (Lantus) inj 12 Units 12 Units Subcutaneous HS insulin Cari Navarro PA-C levothyroxine (Levoxyl) tab 88 mcg 88 mcg Oral Daily 0630 Cari Navarro PA-C melatonin tab 3 mg 3 mg Oral HS PRN Cari Navarro PA-C midodrine (Proamatine) tab 10 mg 10 mg Oral TID(AM/NOON/HS) Cari Navarro PA-C ondansetron (Zofran) inj 4 mg 4 mg IV Push Q6H PRN Cari Navarro PA-C QUEtiapine (SEROquel) tab 200 mg 200 mg Oral HS Cari Navarro PA-C senna-docusate (Senokot-S) 1 Tablet 1 Tablet Oral Daily PRN Cari Navarro PA-C sulfamethoxazole-trimethoprim DS (Bactrim DS) 800-160 MG 1 Tablet 1 Tablet Oral BID(AM/PM) Cari Navarro PA-C MENTAL STATUS EVALUATION: Appearance: age-appropriate, bearded, and casually dressed Muscle strength and tone: normal muscle strength and tone Gait and Station: steady with use of cane Personal Presentation: candid and cooperative. Behavior: appropriate and cooperative, but isolative and withdrawn Speech: normal rate, tone, and soft volume Mood: depressed Affect: type - dysphoric; range - blunted; lability - no Associations: intact Thought Process: goal directed and logical Abstract Reasoning: not tested Thought Content: (-) SI, HI, no overt paranoia/delusions Perception: (-) AVH Orientation: alert and oriented to person, place, time and situation Recent and remote memory as evidenced by recall of recent circumstances and remote life events: intact Language as evidenced by ability to repeat phrase and name object: intact Fund of knowledge as evidenced by vocabulary and current/historical events: intact Attention span/concentration as evidenced by: ability to sustain attention to examiner - intact Insight: fair as evidenced by help-seeking behavior and willingness to participate in treatment Judgment: fair as evidenced by help-seeking behavior and willingness to participate in treatment PHYSICAL/CONSULT/LAB FINDINGS: BP: 78 mmHg/61 mmHg (01/01/23 0600) Pulse: 107 (01/01/23 06) Temp: 36.89 C (01/01/23599) Resp: 16 (01/01/23599) SpO2: 99 % (01/01/23599) Labs reviewed as indicated below: Recent Results (from the past 48 hour(s)) GLUCOSE METER, POINT OF CARE Collection Time: 12/30/22 4:50 PM Result Value Ref Range Glucose Meter 165 (H) 70 - 120 mg/dL GLUCOSE METER, POINT OF CARE Collection Time: 12/30/22 8:06 PM Result Value Ref Range Glucose Meter 243 (H) 70 - 120 mg/dL GLUCOSE METER, POINT OF CARE Collection Time: 12/31/22 7:34 AM Result Value Ref Range Glucose Meter 132 (H) 70 - 120 mg/dL GLUCOSE METER, POINT OF CARE Collection Time: 12/31/22 11:39 AM Result Value Ref Range Glucose Meter 281 (H) 70 - 120 mg/dL GLUCOSE METER, POINT OF CARE Collection Time: 12/31/22 4:40 PM Result Value Ref Range Glucose Meter 254 (H) 70 - 120 mg/dL GLUCOSE METER, POINT OF CARE Collection Time: 12/31/22 8:05 PM Result Value Ref Range Glucose Meter 300 (H) 70 - 120 mg/dL GLUCOSE METER, POINT OF CARE Collection Time: 01/01/23 7:25 AM Result Value Ref Range Glucose Meter 356 (H) 70 - 120 mg/dL GLUCOSE METER, POINT OF CARE Collection Time: 01/01/23 11:38 AM Result Value Ref Range Glucose Meter 419 (H) 70 - 120 mg/dL DANGEROUSNESS TO SELF/OTHERS ASSESSMENT UPDATE: dangerousness to self/others has lessened and is now rated minimal risk PATIENT REPORTED DEPRESSION SCREENING (PHQ9): PHQ9 Survey Results Last 24hours (since 12/31/2022) None DIAGNOSIS: Principal Problem: Depression Active Problems: Severe protein-calorie malnutrition (HCC) Opioid use disorder Compulsive skin picking Dehydration Orthostatic hypotension Methamphetamine abuse (HCC) Chronic osteomyelitis of right hand including fingers (HCC) Syncope Uncontrolled diabetes mellitus with hyperglycemia (HCC) Anxiety disorder Resolved Problems: * No resolved hospital problems. * ASSESSMENT: Gil Irby is a 37 year old male with a past psychiatric history of ADHD and depression who was admitted to the Inpatient Psychiatric Unit at [facility] ([facility]) on 12/27/2022 on a 201 (voluntary) commitment for depression with suicidal ideation. Gil continues to struggle with depression and anxiety and did not feel the addition of Buspar was helpful. He was agreeable to trying Zoloft instead to target both complaints. PLAN: Reviewed with Dr. Jean and treatment team. Inpatient psychiatric care is necessary because of suicidal potential . Plan of care includes: 1) 201 (voluntary) commitment 2) Safety Q15 minute checks 3) Supportive milieu and group therapy 4) Safe discharge planning 5) Psychotropic Medications Discontinue Buspar 10mg BID d/t ineffectiveness Gabapentin 300mg TID Remeron Soltab 30mg QHS Seroquel 200mg QHS Initiate Zoloft 25mg Daily for depression/anxiety 6) Medical Needs Continue home medications as prescribed Watching FSBS numbers as they are elevated today. Patient receiving appropriate coverage via sliding scale. However, may need to involve internal medicine if FSBS continue to be elevated. 7) Labs/Imaging None pending. On antipsychotic therapy: HgbA1c 12/29/22 - 11.3% Lipid panel 12/29/22 - mildly elevated LDL Treatment options and alternatives reviewed with patient and they agree with the above plan. Information about current medications was provided to the patient including reasons why medicationsare being used, risks, benefits, side effects and alternatives to treatment (including no treatment). Signature: Palak Arroyo PA-C 01/01/2023 3:15 PM Associated attestation - Coco Jean MD - 01/01/2023 6:36 PM EDT I saw and evaluated the patient on date of service referenced in note and have supervised the performance of a medically appropriate history and/or exam by the Physician Real Estate Transaction Coordinator. I have reviewed the documentation and agree, with exceptions/additions as noted below: none Coco Jean MD Attending psychiatrist 01/01/23 6:36 PM * Servando Ratliff MD - 12/31/2022 9:11 AM EDT PHYSICIAN PROGRESS NOTE INPATIENT PSYCHIATRY [address] [id number] Name: Gil Irby Location: [facility] [id number] Date: 12/31/2022 Time: 9:11 AM Patient location: HOSPITAL. I was not in a hospital or clinic location. After connecting through [employer], patient was identified by name and date of and/or wristband checked. Patient (or authorized legal novelties sales representative) was then informed that this was a Telemedicine visit and was being conducted confidentially over secure lines. My office door was closed. No one else was in the room withme.. Patient acknowledged consent and understanding of privacy and security of the Telemedicine visit and gave permission to have a telemedicine presenter stay in the room in order to assist with thehistory and to conduct the exam as needed. I informed the patient that I have reviewed their recordin [employer] and presented the opportunity for them to ask any questions regarding the visit today. The patient agreed to participate. Commitment Status: 201 Patient seen in Treatment Team: seen by psychiatrist/physician Review: Nursing Notes Past 24 Hours Reviewed SUBJECTIVE: Patient seen, case discussed with staff and records reviewed. Patient the last 24 hourshad no behavior issues on the unit. Staff reported the patient overall did well yesterday. Patient stated he was upset yesterday because he did not receive any calls from his daughter or his . Hestated that overall his mood is better compared to when he came in with slept well last night and has a good appetite. His only complaint was that he needed fresh cloths being in the hospital. Patient rated his depression at 7/10 with no suicidal or homicidal ideation reported. He attended and participated in groups yesterday. He denies any side effects from medication with his sugars have been good. Medication Compliance: compliant with all prescribed medicines Participating in Treatment: Attends programs, groups and activities MENTAL STATUS EVALUATION: Appearance: casually dressed Muscle strength and tone: Not tested Gait and Station: no abnormalities noted Personal Presentation: candid and cooperative. Behavior: appropriate within the milieu and cooperative Speech: normal, rate, tone and volume and goal directed Mood: anxious and depressed Affect: type - dysphoric and anxious; range - constricted; lability - no Associations: intact Thought Process: goal directed Abstract Reasoning: not tested Thought Content: denies suicidal ideations, homicidal ideations, auditory hallucinations, visual hallucinations, delusions, impulsivity to act out or preoccupation with violence Orientation: alert and oriented to person, place, time and situation Recent and remote memory as evidenced by recall of recent circumstances and remote life events: intact Language as evidenced by ability to repeat phrase and name object: intact Fund of knowledge as evidenced by vocabulary and current/historical events: intact Attention span/concentration as evidenced by: ability to sustain attention to examiner - intact Insight: fair Judgment: fair PHYSICAL/CONSULT/LAB FINDINGS: BP: 77 mmHg/56 mmHg (12/31/22599) Pulse: 90 (12/31/22599) Temp: 36.61 C (12/31/22599) Resp: 15 (12/31/22599) SpO2: 94 % (12/31/22599) Labs reviewed as indicated below: Results for orders placed or performed during the hospital encounter of 12/27/22 LIPID PANEL WITH DIRECT LDL IF TG IS HIGH Result Value Ref Range Triglycerides 96 <=174 mg/dL Cholesterol 196 <200 mg/dL HDL Cholesterol 43 >39 mg/dL Non-HDL Cholesterol 153 <=159 mg/dL LDL Cholesterol 134 (H) <=129 mg/dL Results for orders placed or performed in visit on 06/28/22 LDL CHOLESTEROL (DIRECT MEASURE) Result Value Ref Range LDL Cholesterol (Direct Measure) 116 <=129 mg/dL Lab Results Component Value Date/Time HDL CHOLESTEROL - [facility] 43 12/29/2022 12:05 PM HDL CHOLESTEROL - [facility] 44 12/30/2012 11:27 AM Lab Results Component Value Date/Time CHOLESTEROL - [facility] 196 12/29/2022 12:05 PM CHOLESTEROL - [facility] 313 (H) 12/30/2012 11:27 AM CHOLESTEROL-HDL RATIO - [facility] 7.1 12/30/2012 11:27 AM Lab Results Component Value Date/Time GLUCOSE - [facility] 148 (H) 12/29/2022 12:05 PM GLUCOSE - [facility] 193 (H) 12/21/2019 01:49 PM GLUCOSE METER POCT - [facility] 132 (H) 12/31/2022 07:34 AM GLUCOSE METER POCT - [facility] 295 (H) 12/21/2019 12:40 PM GLUCOSE POCT - [facility] 378 (H) 07/16/2015 10:14 AM GLUCOSE, URINE - [facility] 500 (A) 12/27/2022 02:32 PM GLUCOSE, URINE - [facility] 1,000 (A) 07/16/2015 12:30 PM Lab Results Component Value Date/Time HEMOGLOBIN A1C - [facility] 11.3 (H) 12/29/2022 05:17 AM HEMOGLOBIN A1C - [facility] 11.0 (H) 12/09/2014 06:53 AM HEMOGLOBIN I-STAT POCT - [facility] 16.0 07/16/2015 10:14 AM HEMOGLOBIN, [id number] 11.4 (A) 04/28/2013 12:00 AM HEMOGLOBIN, WHOLE BLOOD - [facility] 12.9 (L) 12/27/2022 12:35 PM HEMOGLOBIN, WHOLE BLOOD - [facility] 15.3 07/16/2015 10:10 AM No components found for: [id number] No results found for: MICROALBU Lab Results Component Value Date/Time CREATININE - [facility] 1.0 12/29/2022 12:05 PM CREATININE - [facility] 1.1 12/21/2019 01:49 PM CREATININE, RANDOM URINE - [facility] 49 11/01/2021 03:01 PM Lab Results Component Value Date/Time ALT - [facility] 123 (H) 12/28/2022 04:42 AM ALT - [facility] 19 12/21/2019 01:49 PM home medication stored in pharmacy house antacid (Mi-Acid II) oral susp 15 mL LiquaCel milk of magnesia (Mom) oral susp 30 mL Nicotine (Nicoderm CQ) 14 MG/24HR patch 1 Patch busPIRone (Buspar) tab 10 mg methADONE CONCentrated 10 mg/mL oral conc 107 mg mirtazapine ODT (Remeron Soltab) tab 30 mg Acetaminophen (Tylenol) tab 975 mg amoxicillin-clavulanate (Augmentin) tab 875 mg dextrose 50 % inj 25 mL dextrose 50 % inj 50 mL Gabapentin (Neurontin) cap 300 mg glucagon (Glucagen) inj 1 mg Glucose (Glutose 15) 40 % gel 15 g of glucose Glucose (Glutose 15) 40 % gel 30 g of glucose glucose chew tab 16 g guaiFENesin-dm (Robitussin DM) oral syrup 10 mL insulin aspart (NovoLOG) inj Insulin Glargine (Lantus) inj 12 Units levothyroxine (Levoxyl) tab 88 mcg melatonin tab 3 mg midodrine (Proamatine) tab 10 mg ondansetron (Zofran) inj 4 mg QUEtiapine (SEROquel) tab 200 mg senna-docusate (Senokot-S) 1 Tablet sulfamethoxazole-trimethoprim DS (Bactrim DS) 800-160 MG 1 Tablet DANGEROUSNESS TO SELF/OTHERS ASSESSMENT UPDATE: no change PATIENT REPORTED DEPRESSION SCREENING (PHQ9): PHQ9 Survey Results Last 24hours (since 12/30/2022) None 37-year-old male with past history of insulin-dependent diabetes mellitus, hypothyroidism, osteomyelitis, neuropathy, stimulant use disorder, depression and substance use disorder presentedwith worsening depression and physical problems associated with uncontrolled diabetes. Patient has been going through stressors of being homeless in the last 1 year, separation from his in the last few months, noncompliant with his medication in the last couple of months and relapsing on methamphetamine leading to worsening of depression. He endorses depressed mood, disturbed sleep, poor appetite, energy, poor concentration with suicide attempt prior to coming in. He has a significant family history of mother from depression and substance abuse as well as multiple cousins from both sideshave mental illness and substance abuse. DIAGNOSIS: Major Depressive Disorder Recurrent Episode Unspecified Stimulant use disorder/methamphetamine use disorder severe. Opiate use disorder on maintenance therapies. Diabetes mellitus Osteomyelitis Drop foot/neuropathy Hypothyroidism PLAN: Inpatient psychiatric care is necessary because of suicidal potential and potential for complications due to medication management that precludes outpatient approach . Safety checks Q 15 minutes. Supportive milieu and group therapy. Medication management includes Mirtazapine 30 mg p.o. q.h.s. Quetiapine 200 mg p.o. daily. Continue with antibiotics for his osteomyelitis. Continue with insulin for his diabetes. P.r.n. medications for anxiety, insomnia and agitation. Safe discharge and aftercare plan. Drug and alcohol rehab referral. Information about current medications was provided to the patient including reasons why medicationsare being used: yes Signature: Physician - Servando Ratliff MD * Rafael Rao MD - 12/29/2022 12:53 PM EDT Images from the original note were not included. [facility] [id number] INTERVAL HISTORY: 37 year old M with known history of DM1, bipolar disorder, opioid abuse, methamphetamine abuse, hypothyroidism, malnutrition, chronic right 5th finger osteomyelitis. Patient admitted due to generalized weakness, and multiple syncopal episodes over the past 1 week. Patient seen today at bedside, states that he is doing better but still has some dizziness when trying to ambulate. He feels a bit more upbeat today, and is happy that he is able to get help and is willing to receive treatment for mental health. Patient denies chest pain, denies shortness of breath, denies nausea or vomiting, deniesbowel movement changes, denies dysuria. Patient tried suicide attempt last week with self-administration of 25u insulin. He is on a 1:1. Objective Physical Exam Most Recent Vital Signs: BP: 100 mmHg/71 mmHg (12/29/22735) Pulse: 79 (12/29/22735) Temp: 36.39 C (12/29/22735) Resp: 16 (12/29/22735) SpO2: 99 % (12/29/22735) Constitutional: (+) ill appearing, thin and frail. HEENT: normal: normocephalic, atraumatic; no masses, tenderness, or adenopathy Neck: supple, normal range of motion, JVP normal CV: normal rate and rhythm, no murmur, gallops or rub Chest: normal respiratory effort, BLAE, no wheezing appreciated. Abdomen: normal: soft, bowel sounds normal, no masses, tenderness or organomegaly, no mass, no tenderness, no organomegaly, no rebound or guarding Skin: warm, dry, intact: Psych: depressed, patient has had recent suicidal thoughts. Peripheral Line Right Arm 20 Gauge (Active) Number of days: 2 STUDIES: Labs and other studies reviewed with pertinent findings noted below: Lab results within last 7 days (see chart for full results) Units 12/29/22 1205 12/29/22 0517 12/28/22 0442 Sodium mmol/L 138 141 140 Potassium mmol/L 4.5 5.3* 3.5 Chloride mmol/L 102 103 101 CO2 mmol/L 28 33* 33* BUN mg/dL 22* 22* 22* Creatinine mg/dL 1.0 1.2 1.0 Lab results within last 7 days (see chart for full results) Units 12/29/22 0517 12/28/22 0442 12/27/22 1235 HGB g/dL 10.7* 10.6* 12.8* HCT % 33.7* 32.7* 37.7* WBC K/uL 10.48 9.52 7.93 PLT K/uL 349 348 414* Lab results within last 7 days (see chart for full results) Units 12/28/22 0442 12/27/22 1235 Protein g/dL 6.5 8.9* Bilirubin, Total mg/dL 0.2 0.3 Alkaline Phosphatase U/L 97 127 AST U/L 43 -- ALT U/L 123* 212* XR WRIST 3 OR MORE VIEWS Result Date: 12/27/2022 IMPRESSION: Overall similar appearance of destructive osteolysis centered about the 5th PIP joint. THIS DOCUMENT HAS BEEN ELECTRONICALLY SIGNED BY FAUSTO MANUEL MD XR HAND 3 OR MORE VIEWS Result Date: 12/27/2022 IMPRESSION: Nonspecific erosive changes about the 5th PIP joint, which may reflect acute versus chronic infectious/inflammatory arthropathy. THIS DOCUMENT HAS BEEN ELECTRONICALLY SIGNED BY FAUSTO MANUEL MD XR HAND 3 OR MORE VIEWS Result Date: 12/27/2022 IMPRESSION: Overall similar appearance of destructive osteolysis centered about the 5th PIP joint. THIS DOCUMENT HAS BEEN ELECTRONICALLY SIGNED BY FAUSTO MANUEL MD XR CHEST 1 VIEW Result Date: 12/27/2022 IMPRESSION: No acute cardiopulmonary abnormality. THIS DOCUMENT HAS BEEN ELECTRONICALLY SIGNED BY FAUSTO MANUEL MD Assessment and Plan IMPRESSION : Principal Problem: Uncontrolled diabetes mellitus with hyperglycemia (HCC) Active Problems: Bipolar 1 disorder, depressed (HCC) Severe protein-calorie malnutrition (HCC) Opioid use disorder Compulsive skin picking Dehydration Orthostatic hypotension Methamphetamine abuse (HCC) Chronic osteomyelitis of right hand including fingers (HCC) Syncope Depression Anxiety disorder Resolved Problems: * No resolved hospital problems. * DIFFERENTIAL AND PLAN: 37 y/o M admitted for generalized weakness, dehydration and multiple syncopal episodes over the past 1 week. Patient is doing better, and not in acute distress. Patient is to be transferred to inpatient psychiatry today, once bed becomes available. ID: -WBC within normal limits. -Continue Augmentin 875mg BID -Continue Bactrim DS BID Syncope: -c/w IV fluids -c/w Midodrine TID Psych: -c/w seroquel 200mg HS -c/w mirtazapine 30mg -If agitated-olanzapine (Zyprexa Zydis) 5-10 mg every 4 hours as needed for acute agitation -Monitor EKG on antipsychotics keep Qtc < 500 ms, K > 4 and Mg > 2 Drug Abuse: -continue with methadone 107 mg daily Diabetes: -Continue with insulin sliding scale/Lantus 12u Wound care: -Consult for chronic wounds. -Patient encouraged to follow-up with hand surgeon. Possible transfer to [facility] to have surgery completed as patient is not able to get to [facility] due to no car/ride. Care management: -Patient interested in becoming sober and would like to be in rehabilitation for drug abuse. PHARMACOLOGIC VTE PROPHYLAXIS: This patient does not have an active medication from one of the medication groupers. CODE STATUS: Full Code EXPECTED DISCHARGE DATE: 12/29/2022 Patient see, examined, and discussed with Dr. Banda. Rafael Rao MD 12/29/2022 12:59 PM Associated attestation - Marlon Banda MD - 12/29/2022 6:19 PM EDT I saw and evaluated the patient today. I have reviewed the trainee note and agree. I spent a total of 50 minutes coordinating, documenting, and providing care for this patient excluding time spent in the performance of separately billed services. Patient feeling better today. Less dizzy. Able to ambulate without issues. Vitals are stable. Labs improved. Mildly elevated potassium this morning was improved on repeat labs this aftn. Appreciate psych input yesterday. Inpatient psych recommended. Increased remeron and started buspar. Will hold off on starting temazepam due to bp issues. Continue home dose seroquel. Continued 1:1. Today he is medical stable for psych transfer. I did discuss with Dr Coco jean. She is agreeable. I did have the patient sign a 201. Continue abx as before for right little finger osteo. Of note, he will need to fu with hand sx as outpatient. Will need this appt set up on discharge. If he is going to Drug and Alcohol rehab post psych stay. Then, they should be able to take him to the appointment. * Rafael Rao MD - 12/28/2022 11:30 AM EDT Images from the original note were not included. [facility] 4B-4016/W INTERVAL HISTORY: 37 year old M with known history of DM1, bipolar disorder, opioid abuse, methamphetamine abuse, hypothyroidism, malnutrition, chronic right 5th finger osteomyelitis. Patient presents due to recurrentsyncope, patient continued to feel faint during ambulation and when at rest. He states he has not been eating well or drinking much water. [place] lives [place]/has bouts of homelessness. Patient does not have access to much fresh running water. He has not followed up with outpatient surgery for the amputation of his osteomyelitic finger. Patient was seen by [facility] 2 weeksago for orthostatic hypotension, in usually takes midodrine 3 times a day for this. Patient says heis mostly compliant with medications, but has days where he misses it. States he smoked methamphetamine 4 days ago and used fentanyl one week ago. 20 pack year smoking hx, smokes 1PPD. Denies alcoholuse. Today, patient seen at bedside. He still endorses that he has intermittent feeling of lightheadedness, especially when standing. Denies chest pain, denies shortness of breath, denies nausea or vo miting, denies bowel or bladder changes. Patient tried suicide attempt last week with self-administration of 25u insulin. He is on a 1:1. Objective Physical Exam Most Recent Vital Signs: BP: 88 mmHg/68 mmHg (12/28/22 1113) Pulse: 88 (12/28/22 1113) Temp: 36.61 C (12/28/22 1113) Resp: 16 (12/28/22 1113) SpO2: 100 % (12/28/22 1113) Constitutional: (+) ill appearing, thin and frail. HEENT: normal: normocephalic, atraumatic; no masses, tenderness, or adenopathy Neck: supple, normal range of motion, JVP normal CV: normal rate and rhythm, no murmur, gallops or rub Chest: normal respiratory effort, Wheezing heard in upper and lower lobes bilaterally. Abdomen: normal: soft, bowel sounds normal, no masses, tenderness or organomegaly, no mass, no tenderness, no organomegaly, no rebound or guarding Skin: warm, dry, intact: Psych: depressed, patient has had recent suicidal thoughts. Peripheral Line Right Arm 20 Gauge (Active) Number of days: 1 STUDIES: Labs and other studies reviewed with pertinent findings noted below: Lab results within last 7 days (see chart for full results) Units 12/28/22 0442 12/27/22 1235 Sodium mmol/L 140 132* Potassium mmol/L 3.5 -- Chloride mmol/L 101 91* CO2 mmol/L 33* 28 BUN mg/dL 22* 27* Creatinine mg/dL 1.0 0.9 Lab results within last 7 days (see chart for full results) Units 12/28/22 0442 12/27/22 1235 HGB g/dL 10.6* 12.8* HCT % 32.7* 37.7* WBC K/uL 9.52 7.93 PLT K/uL 348 414* Lab results within last 7 days (see chart for full results) Units 12/28/22 0442 12/27/22 1235 Protein g/dL 6.5 8.9* Bilirubin, Total mg/dL 0.2 0.3 Alkaline Phosphatase U/L 97 127 AST U/L 43 -- ALT U/L 123* 212* XR WRIST 3 OR MORE VIEWS Result Date: 12/27/2022 IMPRESSION: Overall similar appearance of destructive osteolysis centered about the 5th PIP joint. THIS DOCUMENT HAS BEEN ELECTRONICALLY SIGNED BY FAUSTO MANUEL MD XR HAND 3 OR MORE VIEWS Result Date: 12/27/2022 IMPRESSION: Nonspecific erosive changes about the 5th PIP joint, which may reflect acute versus chronic infectious/inflammatory arthropathy. THIS DOCUMENT HAS BEEN ELECTRONICALLY SIGNED BY FAUSTO MANUEL MD XR HAND 3 OR MORE VIEWS Result Date: 12/27/2022 IMPRESSION: Overall similar appearance of destructive osteolysis centered about the 5th PIP joint. THIS DOCUMENT HAS BEEN ELECTRONICALLY SIGNED BY FAUSTO MANUEL MD XR CHEST 1 VIEW Result Date: 12/27/2022 IMPRESSION: No acute cardiopulmonary abnormality. THIS DOCUMENT HAS BEEN ELECTRONICALLY SIGNED BY FAUSTO MANUEL MD Assessment and Plan IMPRESSION : Principal Problem: Uncontrolled diabetes mellitus with hyperglycemia ([facility]) Active Problems: Bipolar 1 disorder, depressed ([facility]) Severe protein-calorie malnutrition (HCC) Compulsive skin picking Dehydration Orthostatic hypotension Methamphetamine abuse ([facility]) Chronic osteomyelitis of right hand including fingers ([facility]) Syncope Resolved Problems: * No resolved hospital problems. * DIFFERENTIAL AND PLAN: 37 y/o M that presents due to syncope and lightheadedness. Patient has had ongoing symptomatic orthostatic hypotension. He does not eat or drink much and seems to be dehydrated most of the time. Patient is inconsistent with taking his home medications. ID: -WBC within normal limits. -Continue Augmentin 875mg BID -Continue Bactrim BID -Patient received one dose each of Vancomycin and Zosyn on 12/27/22 Syncope: -c/w IV fluids -c/w Midodrine TID Psych: -c/w seroquel 200mg HS -c/w mirtazapine 15mg Drug Abuse: -Patient received one dose of methadone on 12/27/22, usually attends methadone clinic consistently.But missed session on 12/26/22. Diabetes: -Continue with insulin sliding scale/Lantus 12u Wound care: -Consult for chronic wounds. -Patient encouraged to follow-up with hand surgeon. Possible transfer to [facility] to have surgery completed as patient is not able to get to [facility] due to no car/ride. Care management: -Patient interested in becoming sober and would like to be in rehabilitation for drug abuse. PHARMACOLOGIC VTE PROPHYLAXIS: This patient does not have an active medication from one of the medication groupers. CODE STATUS: Full Code EXPECTED DISCHARGE DATE: No information available Patient will be discussed with Dr. Banda. Rafael Rao MD 12/28/2022 11:51 AM Associated attestation - Marlon Banda MD - 12/28/2022 3:46 PM EDT Images from the original note were not included. I saw and evaluated the patient today. I have reviewed the trainee note and agree. I spent a total of 50 minutes coordinating, documenting, and providing care for this patient excluding time spent in the performance of separately billed services. - Overall he appears to be improving. - continue Iv hydration for today - abx as before for chronic right little finger osteo. - psych consulted due to suicidal ideation. Appreciate input. 201 signed. Inpatient psych recommended. Increased remeron and started buspar. Will hold off on starting temazepam due to bp issues. Continue home dose seroquel. - continue 1:1 as well for now. - was planning to call and speak to [facility] about possible transfer for little finger amputation sx.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 it) Peripheral Line Right Arm 20 Gauge (Active) Number of days: 0 STUDIES: Labs and other studies reviewed with pertinent findings noted below: Recent Results (from the past 24 hour(s)) GLUCOSE METER, POINT OF CARE Collection Time: 12/27/22 12:21 PM Result Value Ref Range Glucose Meter >500 (HH) 70 - 120 mg/dL Device Comment Notified Provider COMPREHENSIVE METABOLIC PANEL Collection Time: 12/27/22 12:35 PM Result Value Ref Range BUN 27 (H) 6 - 20 mg/dL Creatinine 0.9 0.6 - 1.2 mg/dL Estimated Glomerular Filtration Rate >90 >=60 mL/min Sodium 132 (L) 135 - 146 mmol/L Potassium Chloride 91 (L) 98 - 107 mmol/L CO2 28 22 - 32 mmol/L Anion Gap 13 7 - 15 mmol/L Glucose 592 (HH) 70 - 120 mg/dL Albumin 4.5 3.8 - 5.0 g/dL AST Alkaline Phosphatase 127 35 - 130 U/L Bilirubin, Total 0.3 <=1.2 mg/dL Calcium 10.2 8.4 - 10.2 mg/dL Protein 8.9 (H) 6.0 - 8.3 g/dL ALT 212 (H) 10 - 50 U/L TROPONIN T, HIGH SENSITIVITY Collection Time: 12/27/22 12:35 PM Result Value Ref Range Troponin T, High Sensitivity 14 <=22 ng/L CBC Collection Time: 12/27/22 12:35 PM Result Value Ref Range WBC 7.93 4.00 - 10.80 K/uL RBC 4.06 4.50 - 5.25 M/uL HGB 12.8 (L) 14.0 - 16.8 g/dL HCT 37.7 (L) 40.0 - 48.4 % MCV 92.9 82.0 - 99.5 fL MCH 31.5 27.0 - 34.0 pg MCHC 34.0 32.0 - 36.0 g/dL RDW 13.3 11.5 - 15.5 % PLT 414 (H) 140 - 400 K/uL MPV 9.6 6.6 - 11.1 fL nRBCs 0 <=0 /100 WBCs DIFFERENTIAL, AUTOMATED Collection Time: 12/27/22 12:35 PM Result Value Ref Range WBC 7.93 4.00 - 10.80 K/uL Neutrophils % 69.7 40.0 - 75.0 % Lymphocytes % 26.4 18.0 - 42.0 % Monocytes % 2.5 1.0 - 11.0 % Eosinophils % 0.5 0.0 - 6.0 % Basophils % 0.6 0.0 - 2.0 % Immature Granulocytes % 0.3 0.0 - 2.0 % Absolute Neutrophils 5.53 1.80 - 7.70 K/uL Absolute Lymphocytes 2.09 1.00 - 4.80 K/ul Absolute Monocytes 0.20 0.00 - 1.10 K/uL Absolute Eosinophils 0.04 0.00 - 0.70 K/uL Absolute Basophils 0.05 0.00 - 0.20 K/uL Absolute Immature Granulocytes 0.02 0.00 - 0.20 K/uL PROCALCITONIN Collection Time: 12/27/22 12:35 PM Result Value Ref Range Procalcitonin 0.04 <0.10 ng/mL LACTATE, WHOLE BLOOD WITH REFLEX IF ABNORMAL Collection Time: 12/27/22 12:35 PM Result Value Ref Range Lactate, Whole Blood 1.2 0.4 - 2.0 mmol/L PT INR Collection Time: 12/27/22 12:35 PM Result Value Ref Range Prothrombin Time 13.2 11.6 - 15.2 seconds INR 1.0 0.8 - 1.2 APTT Collection Time: 12/27/22 12:35 PM Result Value Ref Range aPTT 27 21 - 38 seconds BLOOD GAS, VENOUS Collection Time: 12/27/22 12:35 PM Result Value Ref Range Temperature 37.0 C pH, Venous 7.353 7.320 - 7.430 units pCO2, Venous 59.9 40.0 - 60.0 mmHg pO2, Venous 29.3 25.0 - 50.0 mmHg Base Excess, Venous 5.6 (H) -2.0 - 2.0 mmol/L Hemoglobin, Whole Blood 12.9 (L) 14.0 - 16.8 g/dL Oxyhemoglobin, Venous 46.3 40.0 - 85.0 % total Hgb Carboxyhemoglobin, Whole Blood 4.7 (H) <=1.5 % total Hgb Methemoglobin, Whole Blood 1.5 <=1.5 % total Hgb Reduced Hemoglobin, Venous 47.5 % total Hgb O2 Content, Venous 8.4 7.0 - 18.0 %vol Bicarbonate, Whole Blood 32.4 (H) 23.0 - 31.0 mmol/L CULTURE, BLOOD Collection Time: 12/27/22 12:35 PM Result Value Ref Range Blood Culture Growth No growth to date CRP (INFLAMMATORY MARKER) Collection Time: 12/27/22 12:35 PM Result Value Ref Range CRP (Inflammatory Marker) <3 <=5 mg/L PHOSPHORUS Collection Time: 12/27/22 12:35 PM Result Value Ref Range Phosphorus 4.1 2.5 - 4.8 mg/dL MAGNESIUM Collection Time: 12/27/22 12:35 PM Result Value Ref Range Magnesium 2.1 1.5 - 2.6 mg/dL CULTURE, BLOOD Collection Time: 12/27/22 12:49 PM Result Value Ref Range Blood Culture Growth No growth to date URINALYSIS, REFLEX TO MICROSCOPIC Collection Time: 12/27/22 2:32 PM Result Value Ref Range Color, Urine Yellow Light Yellow, Yellow, Dark Yellow Clarity, Urine Clear Clear Glucose, Urine 500 (A) Negative mg/dL Bilirubin, Urine Negative Negative Ketone, Urine Negative Negative mg/dL Specific Effie, Urine 1.030 1.003 - 1.030 Blood, Urine Negative Negative pH, Urine 5.5 5.0 - 7.5 Units Protein, Urine Negative Negative mg/dL Urobilinogen, Urine 0.2 0.2, 1.0 mg/dL Nitrite, Urine Negative Negative Esterase, Urine Negative Negative Comment, Urine GLUCOSE METER, POINT OF CARE Collection Time: 12/27/22 2:59 PM Result Value Ref Range Glucose Meter 460 (H) 70 - 120 mg/dL XR HAND 3 OR MORE VIEWS Final Result PROCEDURE INFORMATION: Exam: XR Left Hand Exam date and time: 12/27/2022 1:24 PM Age: 37 years old Clinical indication: Other: Wound to 5th digit left hand; Additional info: Mcp wound TECHNIQUE: Imaging protocol: Radiologic exam of the left hand. Views: 3 or more views. COMPARISON: MRI HAND LEFT W WO CONTRAST 10/31/2022 9:31 AM FINDINGS: Bones/joints: There is tapered resorption identified about the 5th PIP joint, with erosive changes identified and linear focus of mineralization along the medial margin of the joint space. There is no acute fracture. There is no dislocation. Soft tissues: Mild 5th digit PIP soft tissue swelling is present. IMPRESSION IMPRESSION: Nonspecific erosive changes about the 5th PIP joint, which may reflect acute versus chronic infectious/inflammatory arthropathy. THIS DOCUMENT HAS BEEN ELECTRONICALLY SIGNED BY FAUSTO MANUEL MD XR CHEST 1 VIEW Final Result PROCEDURE INFORMATION: Exam: XR Chest Exam date and time: 12/27/2022 12:22 PM Age: 37 years old Clinical indication: Other: Hypotension, right hand osteomyelitis/wound; Additional info: Weakness TECHNIQUE: Imaging protocol: Radiologic exam of the chest. Views: 1 view. COMPARISON: DX XR CHEST 2 VIEWS 12/11/2022 3:22 PM FINDINGS: Lungs: Subsegmental atelectasis versus scarring in the right midlung field, with probable chronic scarring in the left midlung field. Pleural spaces: No definite pneumothorax. No pleural effusion. Heart/Mediastinum: Cardiac silhouette and pulmonary vasculature within normal limits. Bones/Joints: Osseous structures are unchanged. IMPRESSION IMPRESSION: No acute cardiopulmonary abnormality. THIS DOCUMENT HAS BEEN ELECTRONICALLY SIGNED BY FAUSTO MANUEL MD XR HAND 3 OR MORE VIEWS Final Result PROCEDURE INFORMATION: Exam: XR Right Hand Exam date and time: 12/27/2022 12:35 PM Age: 37 years old Clinical indication: Other: Hypotension, right hand osteomyelitis/wound; Additional info: Wound, osteomyelitis TECHNIQUE: Imaging protocol: Radiologic exam of the right hand. Views: 3 or more views. COMPARISON: DX XR HAND 3 OR MORE VIEWS 12/11/2022 5:08 PM FINDINGS: Bones/joints: Again identified is osseous destruction involving the 5th proximal and middle phalanges, with associated tapering and residual ununited osseous fragments. There is no acute fracture. There is no dislocation. Soft tissues: Moderate surrounding soft tissue swelling is present. IMPRESSION IMPRESSION: Overall similar appearance of destructive osteolysis centered about the 5th PIP joint. THIS DOCUMENT HAS BEEN ELECTRONICALLY SIGNED BY FAUSTO MANUEL MD XR WRIST 3 OR MORE VIEWS Final Result PROCEDURE INFORMATION: Exam: XR Right Wrist Exam date and time: 12/27/2022 12:37 PM Age: 37 years old Clinical indication: Other: Hypotension, right hand osteomyelitis/wound; Additional info: Hypotension, right hand has osteomyelitis TECHNIQUE: Imaging protocol: Radiologic exam of the right wrist. Views: 3 or more views. COMPARISON: DX XR HAND 3 OR MORE VIEWS 12/27/2022 12:35 PM COMPARISON MORE: DX XR HAND 3 OR MORE VIEWS 12/11/2022 5:08 PM FINDINGS: Bones/joints: Again identified is osseous destruction involving the 5th proximal and middle phalanges, with associated tapering and residual ununited osseous fragments. There is no acute fracture. There is no dislocation. Soft tissues: Moderate surrounding soft tissue swelling is present. IMPRESSION IMPRESSION: Overall similar appearance of destructive osteolysis centered about the 5th PIP joint. THIS DOCUMENT HAS BEEN ELECTRONICALLY SIGNED BY FAUSTO MANUEL MD Assessment and Plan IMPRESSION/PLAN: Principal Problem: Uncontrolled diabetes mellitus with hyperglycemia (HCC) Active Problems: Bipolar 1 disorder, depressed (HCC) Severe protein-calorie malnutrition (HCC) Compulsive skin picking Dehydration Orthostatic hypotension Methamphetamine abuse (HCC) Chronic osteomyelitis of right hand including fingers (HCC) Syncope Resolved Problems: * No resolved hospital problems. * Observe on tele Resume home lantus Start novolog sliding scale coverage IV isolyte 125 cc/hr Continue home midodrine Check orthostatics tomorrow Continue home bactrim and augmentin He has to f/u outpatient for his chronic right 5th digit osteo Care management consult as patient now interested in inpatient rehab Of note, patient claims he is taking methadone 107 mg daily from a methadone clinic -- since this is such a high dose, I am going to hold off ordering it for now -- I discussed with inpatient pharmacy and they will have someone call his methadone clinic to confirm this. He says he doesn't have transportation to get to his hand surgeon appt so I'm not sure how he's been able to get transportation to the methadone clinic therefore I am not sure whether he is actually taking this or not. PHARMACOLOGIC VTE PROPHYLAXIS:This patient does not have an active medication from one of the medication groupers. CODE STATUS: Full Code EXPECTED DISCHARGE DATE: No information available Patient seen along with Dr. Mcmillan and we discussed the case and plan of care. I spent a total of 80 minutes coordinating, documenting, and providing care for this patient excluding time spent in the performance of separately billed services or time spent by another provider/QHP. Cari Navarro PA-C 12/27/2022 7:14 PM Associated attestation - Denise Mcmillan MD - 12/27/2022 7:46 PM EDT I have reviewed the advanced practitioner documentation and agree. I saw and evaluated the patient on date of service referenced in note and have performed the following medically appropriate historyand/or exam: 37-year-old man with history of DM1, bipolar disorder, opioid abuse, meth use, hypothyroidism, malnutrition, chronic right 5th finger osteomyelitis presents to the ED today for syncope Patient's syncope is not new and has been orthostatic in nature. Last meth use was 3 days ago and last fentanyl use was within the past week. He uses by smoking. He stated that he has not been able to follow up with the hand surgeons because could not afford transportation to appointments. Currently requesting admission for help with placement/housing. He stated his he wants to go to inpatient drug rehab if needed Labs does not suggest acute infection. Normal CRP/protocol/white count Wound care consult for chronic and wounds. Patient encouraged to follow-up with hand surgeon has had been recommended several times in the past. Continue chronic Augmentin for now Case management consult. PT/OT evaluation Attending tomorrow needs to have pharmacy confirm if patient is still on methadone therapy Continue home midodrine. Insulin sliding scale/Lantus documented in this encounter Procedure Notes * Nandini Kaplan MD - 12/27/2022 12:28 PM EDTAssociated Order(s): EKG REASON FOR STUDY: SYNCOPE CONCLUSIONS: Sinus rhythm with short HI Rightward axis Abnormal ECG When compared with ECG of 11-DEC-2022 14:55, Nonspecific T wave abnormality no longer evident in Lateral leads Ventricular Rate: 88 Atrial Rate: 88 HI Interval: 110 QRS Duration: 86 QT/QTc: 362/438 ms P-R-T [place]: 85 : 94 : 70 degrees documented in this encounter Consult Notes * Kishor Bermudez CRNP - 01/12/2023 8:18 PM EDTAssociated Order(s): General Internal Medicine Consult IP Images from the original note were not included. [facility] [id number] General Internal Medicine Consult IP Consult performed by: Kishor Bermudez CRNP Consult ordered by: Palak Arroyo PA-C REASON FOR CONSULT: Persistent diarrhea with BRBPR REQUESTOR OF CONSULT: Palak Arroyo PA-C HPI: Gil Irby is a 37-year-old male with a past medical history remarkable for chronic osteomyelitis of his right hand on broad-spectrum antibiotics, methamphetamine abuse, diabetes mellitus type 1, bipolar disorder, nocturnal diarrhea who is being seen tonight at the request of Psychiatry team for persistent diarrhea as well as bright red blood per rectum. Internal Medicine team recently evaluated the patient this past week started the patient on scheduled Imodium, probiotics as well as fiber supplementation. Patient states that initially he noted improvement however is now having persistent diarrhea anywhere from 2-4 episodes a day. At times he is incontinent of stool. He denies any current urinary symptoms. Denies current fevers or chills. He endorses orthostasis symptoms with position changes. Last fall was approximately 1 week ago. Denies anycurrent lightheadedness, headaches or visual changes. Denies any current chest pain shortness for breath. States that he is able to eat 3 times a day however does not drink much fluids. Patient was thoroughly evaluated on the psychiatric floor in his room. Assigned RN was nearby witnessing evaluation. Patient's last BP noted to be 84/62, heart rate 94, respiratory rate 16. Laboratory results reviewed from 01/09/2023 noting normocytic anemia with downtrending hemoglobin. Hemoglobin as high as 12.8 earlier this month currently down to 9.5. Chemistry panel from 01/09/2023 revealed stable electrolytes with low glucose. He is dealing with uncontrolled diabetes mellitus with hyperglycemia and follows with endocrinology. Current basal bolusinsulin seems to be working for him. Blood sugars in the 200s currently. Of note patient will require outpatient follow-up with orthopedic hand surgeon upon discharge as hehas osteomyelitis of his 5th finger. He is on broad-spectrum antibiotics including Augmentin and Bactrim which are well known to cause C diff colitis. This will once again need to be ruled out. Imodium will be discontinued. Patient can remain on probiotics and Nutrisource. Will begin cholestyramine4 g p.o. three times daily. Send repeat GI pathogen panel, C diff rule out. Obtain basic labs including CBC, CMP, Mag. Patient also benefit from 1 L fluid bolus for hydration. Knee-high Nick's when out of bed as tolerated. Rest of plan of care will be as outlined below. Subjective Patient's past history, medications, and allergies were reviewed. Objective Physical Exam Most Recent Vital Signs: BP: 84 mmHg/62 mmHg (01/12/23 0600) Pulse: 94 (01/12/23599) Temp: 37.61 C (01/12/23599) Resp: 16 (01/12/23599) SpO2: 95 % (01/06/23599) Constitutional: no acute distress, (+) cachectic HEENT: normal: normocephalic, atraumatic; no masses, tenderness, or adenopathy Eyes: PERRLA, sclera and conjunctiva normal Neck: supple, normal range of motion CV: normal rate and rhythm, no murmur, gallops or rub Chest: normal respiratory effort, lungs clear to auscultation and percussion Abdomen: normal: soft, bowel sounds normal, no masses, tenderness or organomegaly, mild tenderness to LUQ Musculoskeletal: (-) negative Extremities: no clubbing, cyanosis, or edema, otherwise grossly normal, warm, and dry Skin: warm, dry, intact: Neuro: alert, oriented to person, place, and time, normal mental status exam Psych: normal mood and affect, nonsuicidal, judgement normal, memory normal STUDIES: Encounter Orders Labs and other studes reviewed with pertinent findings noted below: Assessment and Plan IMPRESSION: Principal Problem: Bipolar 2 disorder, major depressive episode (HCC) Active Problems: Hypothyroidism Severe protein-calorie malnutrition (HCC) Opioid use disorder Compulsive skin picking Methamphetamine abuse (HCC) Chronic osteomyelitis of right hand including fingers (HCC) Uncontrolled diabetes mellitus with hyperglycemia (HCC) Social anxiety disorder Nocturnal diarrhea BRBPR (bright red blood per rectum) Resolved Problems: Dehydration Orthostatic hypotension Syncope RECOMMENDATIONS: Gil Irby is a 37-year-old male with extensive past medical history that includes bipolar disorder, opiate abuse, meth use, diabetes mellitus type 1, hypothyroidism, malnutrition, chronic right 5th finger osteomyelitis on suppressive antibiotics awaiting amputation who is dealing with persistent diarrhea and is now having BRBPR although scant amounts. Nocturnal diarrhea BRBPR Chronic osteomyelitis of right hand, fifth finger Vitals stable, BP remains soft although MAPs>65 Repeat vitals Orthostatic Bps TEDs on in AM, off HS Isolyte-s 1 L fluid bolus x1 Obtain CBC, CMP, mg tonight GI pathogen panel, cdiff testing requested (currently on Bactrim & Augmentin 2/2 5th finger osteomyelitis) Discontinue imodium Continue nutrisource, culturelle capsules Cholestyramine 4 g PO TID Preparation-H TID prn Encourage PO intake DM1 Glucose 200 tonight Continue with basal/bolus regimen as prior Associated attestation - Alvarez Us MD - 01/12/2023 10:13 PM EDT I have reviewed the advanced practitioner documentation and agree. I saw and evaluated the patient on date of service referenced in note and have performed the following medically appropriate historyand/or exam on 01/12/2023. * Maribell Damon, RDN - 01/03/2023 9:31 AM EDTAssociated Order(s): ADULT MINIATURE MODEL MAKER CONSULT IP CONSULT - DIABETES EDUCATION [facility] [place] [id number] Name: Gil Irby Location: [facility] [id number] Date: 01/03/2023 Time: 9:31 AM Patient Identification: name and date of New patient identified by: Consult ASSESSMENT: Primary diagnosis (for hospital admission): Depression Patient's BG has been running in the 300s, he tells me he normally takes more lantus than he is receiving here in the hospital. Patient has been seen by Gale Gabriel this AM, she is increasing his lantus to 20 units at bedtime. She had also recommended a fixed dose of insulin with meals, along withthe sliding scale - agree with this as well. Reached out to Gale Cid, and recommended an endocrinology consult as well. Patient will need all supplies at discharge, glucometer, test strips, lancets, pen needles and insulin pens. PAST MEDICAL HISTORY: Past Medical History: Diagnosis Date ADHD Anxiety Bipolar disorder (HCC) Depression Diabetes mellitus (HCC) 2011 Hypothyroid Malnutrition of moderate degree (HCC) 12/02/2021 Protein-calorie malnutrition (HCC) 02/04/2021 TYPE OF DIABETES: Type 1 LENGTH OF TIME DIAGNOSED WITH DIABETES: 11 years PROVIDER THAT ASSISTS PATIENT WITH MANAGING DIABETES CARE: [facility] PCP CURRENT DIABETES MEDICATION REGIMEN: Lantus 12 units HS, Novolog sliding scale I unit for every 30 points BG over 150 GLUCOSE REVIEW: Patient Vitals for the past 48 hrs: Glucose (Bedside) 01/03/23 0730 312 01/02/231999 308 01/02/23 1141 333 01/02/23 0737 313 01/01/231999 249 01/01/23 1738 255 01/01/23 1130 419 HEMOGLOBIN A1C: (last three values) Lab Results Component Value Date/Time HGBA1C 11.3 (H) 12/29/2022 05:17 AM HGBA1C 12.8 (H) 10/28/2022 07:58 AM HGBA1C 12.1 (H) 06/28/2022 05:57 PM HGBA1C 11.0 (H) 12/09/2014 06:53 AM HGBA1C 11.4 (A) 04/28/2013 12:00 AM HGBA1C 9.4 (H) 12/30/2012 11:27 AM DIABETES MEDICATION PREVENTIVE MAINTENANCE COORDINATOR: Patient reports he was taking 10 units lantus in the AM and 12 units at bedtime, with Novolog sliding scale, 2 units for every 50 points above 150. PATIENT HAS A GLUCOMETER AT HOME: yes, [employer] and however patient is unsure where it is or if he lost it BLOOD GLUCOSE MONITORING PREVENTIVE MAINTENANCE COORDINATOR: does not test PHYSICAL ACTIVITY PRIOR TO ADMISSION: No activity outside [facility] DIABETES CONCERNS: Transportation CURRENT BARRIERS TO CARE/LIFE ISSUES: current illness and hospitalization, financial, and transportation SPECIAL NEEDS: none SUPPORT SYSTEM: unknown at this time PATIENT RECEIVED DIABETES EDUCATION IN THE PAST: yes PERSONS PRESENT FOR THIS EDUCATIONAL SESSION: Patient DSMT/DIABETES MNT DIAGNOSIS: Limited adherence to diabetes management recommendations related to depression as evidenced by elevated blood glucose levels. VERBAL DSMT/DIABETES MNT INTERVENTION: Nutrition: Taught and had patient identify foods that contain carbohydrates. Discuss using consistent carbohydrate approach. EDUCATIONAL MATERIALS PROVIDED: Written: Not given at this time PATIENT GOALS: Nutrition: Accurately count carbohydrates. Medications: Take insulin prior to eating meals. Rotate injection sites for optimal absorption of insulin. Take basal insulin, same dose and same time each day. Cover high blood glucoses using appropriate correction scale. Monitoring: Patient to test blood glucose 4 /day. COMMUNICATION: Communicated with nursing regarding diabetes education. Communicated with Gale Gabriel and regarding education and recommendations. RECOMMENDATIONS/INPATIENT PLAN: Please place a referral to Endocrinology. Media Traffic Manager will follow and provide education as needed. Will follow and adjust diabetes plan of care as medical condition requires. DISCHARGE PLANS: Patient to follow up with PCP after hospital discharge as soon as possible. Patient to schedule initial referral or follow up appointment with outpatient Media Traffic Manager. DISCHARGE INSTRUCTIONS: See above goals and plans DIABETES PRESCRIPTIONS NEEDED FOR HOSPITAL DISCHARGE: Insulin pens: to be determined OneTouch Ultra 2 Meter System (000917) OneTouch Ultra Test Strips (690700) Check blood glucose 4 times per day - Dispense 200 with refills OneTouch Delica Lancets 33 G (326011) Check blood glucose 4 times per day - Dispense 1 box with refills BD ultra fine pen needle 32 G x 4mm (081492) inject insulin 5-6 times daily - Dispense 1 box with refills Gvoke Hypopen - 2 pack - 1 mg/0.2ml (206158) MINUTES OF DSMT: 75 (68-82) Maribell Damon MS, RDN, LDN Clinical Dietitian [facility] Available via [facility] [place] Text [phone] * Aditi Lincoln MD - 01/03/2023 8:33 AM EDTAssociated Order(s): General Internal Medicine Consult IP Images from the original note were not included. [facility] [id number]/A General Internal Medicine Consult IP Consult performed by: Nery Collier PA-C Consult ordered by: Palak Arroyo PA-C REASON FOR CONSULT: hyperglycemia REQUESTOR OF CONSULT: psychiatry GALE Sample HPI: 37 yo male patient with PMHx DM1, chronic osteomyelitis right hand, methamphetamine abuse, recurrent syncope, depression and anxiety currently admitted to inpatient psychiatry unit due to depression with suicidal ideation. General internal medicine consulted due to hyperglycemia as blood sugars are consistently >300. Patient reports home dose of insulin is lantus 12 units nightly and novolog sliding scale 2 units for every 50 points over 150. Denies polydipsia, polyuria, dizziness, chest pain, SOB, fever, chills, increased pain or skin erythema on right hand. Found to be hiding snacks in his room last night. Patient has been frustrated with diet orders (states all he got for breakfast this morning was 2 pancakes) and yesterday air quality specialist reviewed chart andadded boost glucose control. Subjective Patient's past history, medications, and allergies were reviewed. Objective Physical Exam Most Recent Vital Signs: BP: 90 mmHg/67 mmHg (01/03/23599) Pulse: 92 (01/03/23599) Temp: 37.17 C (01/03/23599) Resp: 16 (01/03/23599) SpO2: 99 % (01/01/23599) Constitutional: no acute distress CV: normal rate and rhythm, no murmur, gallops or rub Chest: normal respiratory effort, lungs clear to auscultation and percussion Musculoskeletal: gauze dressing on fingers 4 & 5 on R hand and finger 5 on L hand, no visible skin erythema/streaking Extremities: no clubbing, cyanosis, or edema, otherwise grossly normal, warm, and dry Neuro: alert, oriented to person, place, and time, (+) standing in the hallway with cane as support STUDIES: Encounter Orders Labs and other studes reviewed with pertinent findings noted below: Latest Reference Range & Units 12/31/22 07:34 12/31/22 11:39 12/31/22 16:40 12/31/22 20:05 01/01/23 07:25 01/01/23 11:38 01/01/23 16:50 01/01/23 20:20 01/02/23 07:33 01/02/23 11:40 01/02/23 16: 20:48 01/03/23 07:16 Glucose Meter 70 - 120 mg/dL 132 (H) 281 (H) 254 (H) 300 (H) 356 (H) 419 (H) 225 (H) 249 (H) 313 (H) 333 (H) 327 (H) 308 (H) 312 (H) Latest Reference Range & Units 12/29/22 12:05 Sodium 135 - 146 mmol/L 138 Potassium 3.5 - 5.1 mmol/L 4.5 Chloride 98 - 107 mmol/L 102 CO2 22 - 32 mmol/L 28 BUN 6 - 20 mg/dL 22 (H) Creatinine 0.6 - 1.2 mg/dL 1.0 Estimated Glomerular Filtration Rate >=60 mL/min >90 Anion Gap 7 - 15 mmol/L 8 Glucose 70 - 120 mg/dL 148 (H) Calcium 8.4 - 10.2 mg/dL 8.6 Latest Reference Range & Units 12/29/22 05:17 CBC Rpt ! WBC 4.00 - 10.80 K/uL 10.48 HGB 14.0 - 16.8 g/dL 10.7 (L) HCT 40.0 - 48.4 % 33.7 (L) MCV 82.0 - 99.5 fL 96.3 PLT 140 - 400 K/uL 349 Assessment and Plan IMPRESSION: Principal Problem: Depression Active Problems: Severe protein-calorie malnutrition (HCC) Opioid use disorder Compulsive skin picking Dehydration Orthostatic hypotension Methamphetamine abuse (HCC) Chronic osteomyelitis of right hand including fingers (HCC) Syncope Uncontrolled diabetes mellitus with hyperglycemia (HCC) Anxiety disorder Resolved Problems: * No resolved hospital problems. * RECOMMENDATIONS: Increase dose of lantus to 20 units HS. Add 4 units fixed dose novolog in addition of sliding scale novolog as the patient is eating [id number] g carbs per meal. Input from clinical air quality specialist appreciated. She is recommending endocrinology consult and will discuss with primary team. Of note, will require outpatient follow up with orthopedic hand surgeon upon discharge. Return appointment ordered. Case and plan of care were discussed with Dr. Lincoln. I spent a total of 25 minutes coordinating, documenting, and providing care for this patient excluding time spent in the performance of separately billed services. I have reviewed the advanced practitioner documentation and agree. I saw and evaluated the patient on date of service referenced in note and have performed the following medically appropriate historyand/or exam: Mr Irby is a poorly controlled type 1 DM patient. His last hemoglobin A1c was 11.3.He tells me he was not trying to control his glucose for a long time. He was just living. Now he feels empowered to improve glucose control. Tells me he is concerned about diabetes causing visual changes (chronic) and he also states he was scheduled for a 5th finger amputation at [facility] but missed theappointment due to current hospitalization. Agree with increase in lantus. Also add mealtime standing dose of 4units and continue carbohydrate counting and coverage per that scale. Ask-a-doc Endocriniology also consulted by this author. Patient denies s/s of high or low blood sugar. Feels well. Tolerating large diet. Ultimately, at discharge, the simplest regimen may be the best to optimize adherence. Addendum: hypoglycemic at pre-dinner check. Hold mealtime coverage and standing coverage for this evening meal. - reduce meal time coverage to 2 units standing and reduce SS to low intensity. - give lantus as ordered this evening. * Diane Nobles RDN - 12/29/2022 3:40 PM EDT CLINICAL NUTRITION CONSULT/PROGRESS NOTE [facility] [id number] Name: Gil Irby Location: [facility] [id number] Date: 12/29/2022 Time: 3:40 PM How patient was identified (select 2): Wristband and Name Discussed in interdisciplinary rounds: No Gil Irby is a 37 year old male being seen for reduced dietary intake and significant unintentional weight loss Primary Diagnosis: Uncontrolled diabetes mellitus with hyperglycemia Other pertinent information: Met with pt today. He reports a good appetite and eating nearly 100% of meals. Denies difficulty chewing/swallowing and denies food allergies. Pt reports weight has been holding steady at around 106-107 lbs. He is agreeable to see a nutrition educator. He said he would eventually like an insulin pump. Pt was agreeable to allow this provider to perform a nutrition focused physical exam. Due to moderate to severe fat and severe muscle loss, pt continues to meet criteria for severe malnutrition. Pt is agreeable to watermelon liquacel and HS snack. Also recommend changing diet to Adult Carb Counting to allow him enough food to gain weight. A menu was provided to pt, so that he can choose his own meal options. NUTRITION ASSESSMENT: Past medical/surgical history and medications reviewed. Food/Nutrition-Related History Diet: 4 Choices (60 gm) Consistent Carbohydrate Heart Healthy, 2 gm Sodium Previously followed diet: Regular Food Allergies/Intolerances: No known food allergies Adult Energy Intake: No significant decrease Percentage of meal intake: Greater than 75% Oral Nutrition Supplement (ONS): None Pertinent medications/vitamins/minerals/supplements: Novolog, Lantus 12u HS Pertinent Biochemical Data: There are no biochemical abnormalities requiring a change in the nutrition plan of care. Nutrition-Focused Physical Findings: Appearance: Ill-appearing and Thin Respiratory support: Supplemental O2 Delivery: Room Air, None Nasal/Oral: No issues identified Digestive: No issues identified Last Bowel Movement: 12/26/22 (12/29/22 0830) Cognition: Awake, alert and Oriented Skin: chronic pinky wounds (h/o osteomyelitis) Nutrition Focused Physical Exam: NFPE completed on 12/29/22 Subcutaneous Fat Loss: Orbital fat pads: Moderate Buccal fat: Moderate Tricep: Severe Muscle Loss: Temples: Moderate Clavicles: Severe Shoulders: Severe Scapula: Severe Interosseous: Moderate Quadriceps: Severe Calves: Severe Edema Location: Lower extremities;Both (12/29/22 08) Anthropometrics Measurements Height: 167.6 cm Admission weight: 45.1 kg Weight: 45.1 kg (99 lb 6.8 oz) (12/28/22 0700) Body mass index is 16.05 kg/m. Usual Body Weight: 57 kg last month, highest weight 63.6 kg a few years ago Wick[place]fe weight: 61 kg [place] Weight Based on BMI: 21.7 Interpretation of Weight Change Prior to Admission: 20% weight loss in 1 year (Moderate) Nutrition Prescription: Energy needs: 25-30 Kcal/kg Kcal/day: 5831-6575 Based on [place] weight Protein needs: 1.2-1.3 gm/kg Protein: 73-79 grams Based on [place] weight Fluid needs: 35 ml/kg Fluid: 2135 ml/day Based on [place] weight Malnutrition: Malnutrition Present: Yes (12/29/221554) Adult Malnutrition Classification: Severe (12/29/221554) Malnutrition Characteristics: Fat loss;Muscle loss;Weight loss (12/29/221554) Malnutrition Care Plan: Patient meets ASPEN/AND criteria for severe malnutrition. Plan to meet 100% of estimated calorie and 100% of estimated protein requirements via therapeutic diet and a nutrition intervention of oral nutrition supplements. If patient unable to achieve estimated requirements over next 7 days, will need to consider enteral nutrition. Dietitian Action: Diet change ordered;Provided snacks;Oral nutritional supplement ordered/adjusted (12/29/221554) Liquacel (1 oz, 100 calories, 16 grams protein, 20 mg phosphorus, 10 mg potassium) BID NUTRITION DIAGNOSIS: Malnutrition severe related to social or environmental circumstances as evidenced by 20% weight loss x 1 year, severe muscle loss, and moderate to severe fat loss. Underweight related to social or environmental circumstances as evidenced by BMI of 16 Goals: Patient to consume greater than 75 % of daily meals and 75% of daily supplements within 5 days. Previous diagnosis/Goals: No improvement (malnutrition) NUTRITION INTERVENTION/PLAN: Orders: Change diet to Adult Carbohydrate Counting Oral nutrition supplement added Liquacel (1 oz, 100 calories, 16 grams protein, 20 mg phosphorus, 10 mg potassium) BID Relayed information to food preparer for snacks Clinical Nutrition Recommendations: Diet: Continue current nutrition plan Consider a referral to nutrition educator NUTRITION MONITORING AND EVALUATION: Nursing documentation flowsheets for percent meal intake Tolerance of supplement per patient/nursing report Lab values warranting change with MNT Weight for trends Plan follow-up: Will follow and adjust nutrition plan of care as medical condition requires. Please contact for change(s) in patient condition requiring earlier intervention. Diane Nobles RDN, LDN Clinical Dietitian [facility] Available via [facility] * Cari Palmer Tear Down Man - 12/29/2022 9:42 AM EDTAssociated Order(s): CARE MANAGEMENT CONSULT IP See Ancillary Progress Note * Peggy Key CRNP - 12/28/2022 2:38 PM EDTAssociated Order(s): PSYCHIATRY CONSULT IP INITIAL PSYCHIATRY CONSULT NOTE Patient location: HOSPITAL. I was not in a hospital or clinic location. After connecting through [employer], patient was identified by name and date of and/or wristband checked. Patient (or authorized legal novelties sales representative) was then informed that this was a Telemedicine visit and was being conducted confidentially over secure lines. My office door was closed. No one else was in the room with me.. Patient acknowledged consent and understanding of privacy and security of the Telemedicine visit and gave permission to have a telemedicine presenter stay in the room in order to assist with the history and to conduct the exam as needed. I informed the patient that I have reviewed their record in [facility] and presented the opportunity for them to ask any questions regarding the visit today. The patient agreed to participate. Date of Consult: 12/28/2022 Subjective "I was not taking care of diabetes, things were not going well, and I tried to kill myself." HISTORY OF PRESENT ILLNESS (HPI): The reason for psychiatric consultation is patient presented in the ED on 12/27 and as per HPI SARITHA Navarro -". PMH of DM1, bipolar disorder, opioid abuse, meth use, hypothyroidism, malnutrition, chronic right 5th finger osteomyelitis presents to the ED today for syncope. Patient has been admitted previously for this 5th finger osteomyelitis multiple times and he doesn't follow up w/hand surgeon because he has no transportation. He was just admitted here 2 weeks ago due syncope, orthostatic hypotension after 2 week meth binge. He apparently needs 5th finger amputation, we do not have a hand surgeon here at [facility] and last admission [facility] would not take him for transfer as it could be done on an outpat ient basis. He was sent home on bactrim and augmentin. Patient is basically homeless and has been staying in his daughter's boyfriend's camper w/no running water. Says he took his insulin last yesterday. He can't get transportation to appointments, [facility] won't take him because they kicked him out for a previous incident. States he last did fentanyl 1 week ago and last did methamphetamine 3 days ago - states he smokes the drugs, not injecting. Patient came to the ED today because he's passing outand falling when he tries to stand up. Hasn't been eating or drinking much. " Patient reports that he came in because he kept passing out when he stood up. "My diabetics is veryuncontrolled. I have a burn infection and have to have a finger amputated. I attempted to kill myself and took and overdose of insulin and I went out and they got me back." Denies that he is currently suicidal, he has felt like this before, "I did this because of everything that is going on, My left me in a camper, no way to call anyone we were together for 20 years, my issues and everythingjust felt like too much. I had been clean for 7 years on Methadone. I relapsed and started to use again and also was using Meth and Fentanyl. I feel depressed and anxious, and I want/need some help. I have been told that I am bipolar but I do not think that is the case. I am more depressed, I don'thave highs and lows" The patient was alert and fully oriented, no active SI or HI and no AVH. He is depressed and wants help for his mental health as well as his addiction issues. He does not have much of a support system. PSYCHIATRIC REVIEW OF SYSTEMS: Depression: -depressed (sad) mood , -decreased interests or pleasurein activities, -decreased appetite or weight loss when not dieting, -changes in sleep patterns: falling and staying asleep, -feeling worthless or excessive guilt, and -decreased concentration, Anxiety/OCD/PTSD: restlessness, edgyness, irritability, and sleep disturbance, and ADHD: disorganized difficulty completing tasks PAST PSYCHIATRIC HISTORY Inpatient:twice last time was about 9-10 years ago, and was an overdose Therapy, Outpatient: in the past but not currently has not seen anyone in 5-6 months Psychotropic medications, including Methadone, Remeron Prior psychiatric diagnosis: Opioid Dep, Bipolar History of SI attempts: yes 4 times overdoses Aggressive/violent behavior: in the past with his father History of trauma, abuse, exploitation or trafficking: none I have reviewed the patient's allergies, past history, and medications. MENTAL STATUS EXAM (MSE) Appearance: within normal limits Attitude: cooperative Eye Contact: good Behavior: appropriate Impulse Control: fair Speech: normal pitch, normal rate, and normal volume Mood: anxious and depressed Affect: blunted Thought Process: distracted Thought Content:normal Suicidality and Homicidality: No Ideation Insight: fair Judgment: fair Memory: fair Attention/Concentration: good Orientation: alert and oriented to person, place, time and situation Language: clear, coherent, and fluent Fund of Knowledge: fair Objective PHYSICAL EXAM & ADDITIONAL FINDINGS Please see most recent physical exam by attending physician. Reviewed ED vital signs and pertinent labs, imaging and other studies through Results Review Pain Screening: Is patient experiencing any pain? No Recommendations for management: None Nutritional Screening: Decrease in food intake and/or loss of appetite RISK ASSESSMENT- Risk assessment is a dynamic process; it is possible that this patient's condition, and risk level,may change. This should be re-evaluated and managed over time as appropriate. Please call or re-consult us if additional assistance is needed in terms of risk assessment and management. If your team decides to discharge this patient, please advise the patient how to best access emergency psychiatric services, or to call 911, if their condition worsens or they feel unsafe in any way. Based on my current evaluation and risk assessment, patient is determined to be at: Moderate Risk of harm to self or others Risk Factors: previous suicide attempts, history of depression, social and family isolation, substance abuse, anxiety, physical illness/chronic pain, unemployment/financial duress/housing, and recentromantic relationship break-up Protective Factors: hopeful attitude and or beliefs GENERAL FORMULATION- Based on my current evaluation and assessment of the patient, Gil Irby is a 37 year old years old who presents with complaints of depression, poor appetite, difficulty with sleep. S/P overdoseand is seeking help to address his mental health as well as his substance use. He is alert and oriented. He is engaged and makes good eye contact. No current SI or HI and no AVH, but is status post asignificant overdose. He has difficulty with sleep as well as his appetite and has not been managing his medical issues leading to more medical issues.. The patient's presentation and diagnosis is consistent with Opiate Use D/O, Depression Unspecified, Anxiety Unspecified.. Assessment & Plan DIAGNOSES: Primary Psychiatric Diagnoses: Anxiety Disorder Major Depressive Disorder Recurrent Episode Unspecified Opioid Dep PLAN/RECOMMENDATIONS/INTERVENTIONS: Inpatient psych admission is recommended: 201 signed by Patient Medication recommendations: Increase Remeron to 30 mg at HS for depressiojn Suggest Buspar 10 mg BID for anxiety Suggest Vistaril 25 mg TID PRN anxiety Continue Seroquel 200 mg a HS for sleep and mood Continue Methadone 107 mg a day If agitated-. olanzapine (Zyprexa Zydis) 5-10 mg every 4 hours as needed for acute agitation. Please administer orally disintegrating formulation (Zyprexa Zydis) if patient is accepting -First line: Recommend oral medications; however, if patient is refusing oral medications may give intramuscular olanzapine for severe agitation. Please do not exceed 40 mg of olanzapine within a 24-hour period. Do not give with benzos, as giving both together is associated with respiratory depression and severe oversedation. Non-Medication recommendations: Monitor EKG on antipsychotics keep Qtc < 500 ms, K > 4 and Mg> 2 Voluntary admit to mental health and then perhaps to rehab. I reviewed and updated the [place] Suicide Screen and Suicide Safety Plan as clinically indicated Follow-Up Telepsychiatry C/L services: Will sign off for now. Please re-consult our service as necessary. Total time spent in encounter: 40 minutes total, including record review, clinical interview, behavior observations, discussion of impressions and recommendations, consultation/communication with relevant parties, and clinical documentation Impressions and recommendations were shared with the appropriate persons, including the patient to the extent that the patient is able to consent to treatment as well as understand and participate intreatment decision-making. SW RN Hui at 13:41 pm SUPERVISOR [employer]YING [employer]FTENING and again at 14:29 pm SUPERVISOR [employer]YING [employer]ING and she will let MD know. Consultation recommendations were discussed with requesting physician/service. Thank you for involving us in the care of this patient. Please contact us with questions/concerns. HANNAH Jay * Darlene Mora, CHRIS - 12/28/2022 8:29 AM EDTAssociated Order(s): WOUND CONSULT IP Images from the original note were not included. Order Date:12/27/2022 Ordering User:SEEMA ARAGON [[id number]] Attending Provider:Bonifacio Ratliff MD [[id number]] Authorizing Provider: Denise Mcmillan MD [[id number]] Department:[address] [place] [address][[id number]] Order Specific Information Z1 Order: WOUND CONSULT IP [CUSTOM: [id number]] Order #: [id number]: [id number] Priority: Routine Class: Nursing Unit Reason for Consult: -> chronic wounds bilat 5th fingers Consulting Provider: -> Marlin Provider Released on: 12/27/2022 9:14 PM Priority: Routine Class: Nursing Unit Reason for Consult: -> chronic wounds bilat 5th fingers Consulting Provider: -> Marlin rodriguez Released on: 12/27/2022 9:14 PM Wound Care consult done for chronic wounds BL 5th fingers. HPI; Information obt from chart, and patient: Patient w/PMH of DM1, bipolar disorder, opioid abuse, meth use, hypothyroidism, malnutrition, chronic right 5th finger osteomyelitis presents to the ED today for syncope. Patient has been admitted previously for this 5th finger osteomyelitis multiple times and he doesn't follow up w/hand surgeon because he has no transportation. He was just admitted here 2 weeks ago due syncope, orthostatic hypotension after 2 week meth binge. He apparently needs 5th finger amputation, we do not have a hand surgeon here at [facility] and last admission [facility] would not take him for transfer as it could be done on an outpatient basis. He was sent home on bactrim and augmentin. Patient is basically homeless and has been staying in his daughter's boyfriend's camper w/no running water. Says he took his insulin last yesterday. He can't get transportation to appointments, [facility] won't take him because they kicked him outfor a previous incident. States he last did fentanyl 1 week ago and last did methamphetamine 3 daysago - states he smokes the drugs, not injecting. Patient came to the ED today because he's passing out and falling when he tries to stand up. Hasn't been eating or drinking much. Last took his insulin yesterday. Work up in ED shows Glucose 592, BP as low as 85/68. No changes w/his osteomyelitis, he keeps a dressing on his finger. He says he's now interested in inpatient drug rehab. Wound ostomy care was consult for chronic BL 5th finger wounds. Pt is known to wound care from previous visits. Pt reported he wasn't able to change dressings at home because he didn't have supplies.Stated dressing that was in place on admission was on for about 1 wk. Reported he's not able to bathe on a regular basis d/t living in a camper. Past medical history: Past Medical History: Diagnosis Date ADHD Anxiety Bipolar disorder (HCC) Depression Diabetes mellitus (HCC) 2011 Hypothyroid Malnutrition of moderate degree (HCC) 12/02/2021 Protein-calorie malnutrition (HCC) 02/04/2021 Past Surgical History: Procedure Laterality Date NONE Family History Problem Relation Age of Onset Mental Disorder Mother Alcohol and Other Disorders Associated Mother Alcohol and Other Disorders Associated Father Other (Other [Other]) Other no FH skin disorders Mental Disorder Uncle (Unspecified) Alcohol and Other Disorders Associated Uncle (Unspecified) Mental Disorder Aunt (Unspecified) Alcohol and Other Disorders Associated Aunt (Unspecified) Social History Socioeconomic History Marital status: Spouse name: Not on file Number of children: Not on file Years of education: Not on file Highest education level: Not on file Occupational History Not on file Tobacco Use Smoking status: Every Day Packs/day: 0.50 Years: 7.00 Pack years: 3.50 Types: Cigarettes Smokeless tobacco: Never [...] on file Food Insecurity: No Food Insecurity Worried About Running Out of Food in the Last Year: Never true Ran Out of Food in the Last Year: Never true Transportation Needs: Not on file Physical Activity: Not on file Stress: Not on file Social Connections: Not on file Intimate Partner Violence: Not on file Housing Stability: Not on file Allergies: Review of patient's allergies indicates: No Known Allergies Code status: Full Code Discussion of adv directives occurred with - adult: Patient Focused Wound Assessment: VS: BP 89/59 Comment: resident aware | Pulse 76 | Temp 35.9 C (96.6 F) (Tympanic) | Resp 16 | Wt 45.1 kg (99 lb 6.8 oz) | SpO2 97% | BMI 16.05 kg/m | BSA 1.45 m General: NAD. Resting in bed. Dirty hands/fingers noted. Neuro: AA&O MS: limited ROM in BL 5th fingers. Vascular: WNL. Fingers are warm w/ + sensation Integumentary: chronic open wound on Rt 5th finger. Appears to be healing. Wound bed is much smaller w/ pink granular tissue and scarring to surrounding skin. Mild serous drainage. Lt dorsum hand hasa healing wound from him picking at it. No purulence or signs of infection. PULSE SCALE: 4=Aneurysmal; 3=Normal; 2=Diminished; 1=Barely Palpable; 0=Absent Review of Labs/Tests: Recent Cultures (2 Weeks) 12/27/2022 12/27/2022 12:49 PM 12:35 PM BLOOD CULTURE GROWTH No growth to date No growth to date Recent Results (from the past 24 hour(s)) GLUCOSE METER, POINT OF CARE Collection Time: 12/27/22 12:21 PM Result Value Ref Range Glucose Meter >500 (HH) 70 - 120 mg/dL Device Comment Notified Provider COMPREHENSIVE METABOLIC PANEL Collection Time: 12/27/22 12:35 PM Result Value Ref Range BUN 27 (H) 6 - 20 mg/dL Creatinine 0.9 0.6 - 1.2 mg/dL Estimated Glomerular Filtration Rate >90 >=60 mL/min Sodium 132 (L) 135 - 146 mmol/L Potassium Chloride 91 (L) 98 - 107 mmol/L CO2 28 22 - 32 mmol/L Anion Gap 13 7 - 15 mmol/L Glucose 592 (HH) 70 - 120 mg/dL Albumin 4.5 3.8 - 5.0 g/dL AST Alkaline Phosphatase 127 35 - 130 U/L Bilirubin, Total 0.3 <=1.2 mg/dL Calcium 10.2 8.4 - 10.2 mg/dL Protein 8.9 (H) 6.0 - 8.3 g/dL ALT 212 (H) 10 - 50 U/L TROPONIN T, HIGH SENSITIVITY Collection Time: 12/27/22 12:35 PM Result Value Ref Range Troponin T, High Sensitivity 14 <=22 ng/L CBC Collection Time: 12/27/22 12:35 PM Result Value Ref Range WBC 7.93 4.00 - 10.80 K/uL RBC 4.06 4.50 - 5.25 M/uL HGB 12.8 (L) 14.0 - 16.8 g/dL HCT 37.7 (L) 40.0 - 48.4 % MCV 92.9 82.0 - 99.5 fL MCH 31.5 27.0 - 34.0 pg MCHC 34.0 32.0 - 36.0 g/dL RDW 13.3 11.5 - 15.5 % PLT 414 (H) 140 - 400 K/uL MPV 9.6 6.6 - 11.1 fL nRBCs 0 <=0 /100 WBCs DIFFERENTIAL, AUTOMATED Collection Time: 12/27/22 12:35 PM Result Value Ref Range WBC 7.93 4.00 - 10.80 K/uL Neutrophils % 69.7 40.0 - 75.0 % Lymphocytes % 26.4 18.0 - 42.0 % Monocytes % 2.5 1.0 - 11.0 % Eosinophils % 0.5 0.0 - 6.0 % Basophils % 0.6 0.0 - 2.0 % Immature Granulocytes % 0.3 0.0 - 2.0 % Absolute Neutrophils 5.53 1.80 - 7.70 K/uL Absolute Lymphocytes 2.09 1.00 - 4.80 K/ul Absolute Monocytes 0.20 0.00 - 1.10 K/uL Absolute Eosinophils 0.04 0.00 - 0.70 K/uL Absolute Basophils 0.05 0.00 - 0.20 K/uL Absolute Immature Granulocytes 0.02 0.00 - 0.20 K/uL PROCALCITONIN Collection Time: 12/27/22 12:35 PM Result Value Ref Range Procalcitonin 0.04 <0.10 ng/mL LACTATE, WHOLE BLOOD WITH REFLEX IF ABNORMAL Collection Time: 12/27/22 12:35 PM Result Value Ref Range Lactate, Whole Blood 1.2 0.4 - 2.0 mmol/L PT INR Collection Time: 12/27/22 12:35 PM Result Value Ref Range Prothrombin Time 13.2 11.6 - 15.2 seconds INR 1.0 0.8 - 1.2 APTT Collection Time: 12/27/22 12:35 PM Result Value Ref Range aPTT 27 21 - 38 seconds BLOOD GAS, VENOUS Collection Time: 12/27/22 12:35 PM Result Value Ref Range Temperature 37.0 C pH, Venous 7.353 7.320 - 7.430 units pCO2, Venous 59.9 40.0 - 60.0 mmHg pO2, Venous 29.3 25.0 - 50.0 mmHg Base Excess, Venous 5.6 (H) -2.0 - 2.0 mmol/L Hemoglobin, Whole Blood 12.9 (L) 14.0 - 16.8 g/dL Oxyhemoglobin, Venous 46.3 40.0 - 85.0 % total Hgb Carboxyhemoglobin, Whole Blood 4.7 (H) <=1.5 % total Hgb Methemoglobin, Whole Blood 1.5 <=1.5 % total Hgb Reduced Hemoglobin, Venous 47.5 % total Hgb O2 Content, Venous 8.4 7.0 - 18.0 %vol Bicarbonate, Whole Blood 32.4 (H) 23.0 - 31.0 mmol/L CULTURE, BLOOD Collection Time: 12/27/22 12:35 PM Result Value Ref Range Blood Culture Growth No growth to date CRP (INFLAMMATORY MARKER) Collection Time: 12/27/22 12:35 PM Result Value Ref Range CRP (Inflammatory Marker) <3 <=5 mg/L PHOSPHORUS Collection Time: 12/27/22 12:35 PM Result Value Ref Range Phosphorus 4.1 2.5 - 4.8 mg/dL MAGNESIUM Collection Time: 12/27/22 12:35 PM Result Value Ref Range Magnesium 2.1 1.5 - 2.6 mg/dL CULTURE, BLOOD Collection Time: 12/27/22 12:49 PM Result Value Ref Range Blood Culture Growth No growth to date URINALYSIS, REFLEX TO MICROSCOPIC Collection Time: 12/27/22 2:32 PM Result Value Ref Range Color, Urine Yellow Light Yellow, Yellow, Dark Yellow Clarity, Urine Clear Clear Glucose, Urine 500 (A) Negative mg/dL Bilirubin, Urine Negative Negative Ketone, Urine Negative Negative mg/dL Specific Effie, Urine 1.030 1.003 - 1.030 Blood, Urine Negative Negative pH, Urine 5.5 5.0 - 7.5 Units Protein, Urine Negative Negative mg/dL Urobilinogen, Urine 0.2 0.2, 1.0 mg/dL Nitrite, Urine Negative Negative Esterase, Urine Negative Negative Comment, Urine GLUCOSE METER, POINT OF CARE Collection Time: 12/27/22 2:59 PM Result Value Ref Range Glucose Meter 460 (H) 70 - 120 mg/dL GLUCOSE METER, POINT OF CARE Collection Time: 12/27/22 9:48 PM Result Value Ref Range Glucose Meter 469 (H) 70 - 120 mg/dL GLUCOSE METER, POINT OF CARE Collection Time: 12/28/22 3:58 AM Result Value Ref Range Glucose Meter 335 (H) 70 - 120 mg/dL BASIC METABOLIC PANEL Collection Time: 12/28/22 4:42 AM Result Value Ref Range BUN 22 (H) 6 - 20 mg/dL Creatinine 1.0 0.6 - 1.2 mg/dL Estimated Glomerular Filtration Rate >90 >=60 mL/min Sodium 140 135 - 146 mmol/L Potassium 3.5 3.5 - 5.1 mmol/L Chloride 101 98 - 107 mmol/L CO2 33 (H) 22 - 32 mmol/L Anion Gap 6 (L) 7 - 15 mmol/L Glucose 216 (H) 70 - 120 mg/dL Calcium 9.0 8.4 - 10.2 mg/dL CBC Collection Time: 12/28/22 4:42 AM Result Value Ref Range WBC 9.52 4.00 - 10.80 K/uL RBC 3.45 4.50 - 5.25 M/uL HGB 10.6 (L) 14.0 - 16.8 g/dL HCT 32.7 (L) 40.0 - 48.4 % MCV 94.8 82.0 - 99.5 fL MCH 30.7 27.0 - 34.0 pg MCHC 32.4 32.0 - 36.0 g/dL RDW 13.4 11.5 - 15.5 % PLT 348 140 - 400 K/uL MPV 8.8 6.6 - 11.1 fL nRBCs 0 <=0 /100 WBCs GLUCOSE METER, POINT OF CARE Collection Time: 12/28/22 7:41 AM Result Value Ref Range Glucose Meter 284 (H) 70 - 120 mg/dL XR HAND 3 OR MORE VIEWS Order: [id number] Status: Final result Visible to patient: Yes (not seen) Next appt: None 0 Result Notes Details Reading Physician Reading Date Result Priority Fausto Manuel MD [phone] 12/27/2022 Narrative & Impression PROCEDURE INFORMATION: Exam: XR Left Hand Exam date and time: 12/27/2022 1:24 PM Age: 37 years old Clinical indication: Other: Wound to 5th digit left hand; Additional info: Mcp wound TECHNIQUE: Imaging protocol: Radiologic exam of the left hand. Views: 3 or more views. COMPARISON: MRI HAND LEFT W WO CONTRAST 10/31/2022 9:31 AM FINDINGS: Bones/joints: There is tapered resorption identified about the 5th PIP joint, with erosive changes identified and linear focus of mineralization along the medial margin of the joint space. There is no acute fracture. There is no dislocation. Soft tissues: Mild 5th digit PIP soft tissue swelling is present. IMPRESSION IMPRESSION: Nonspecific erosive changes about the 5th PIP joint, which may reflect acute versus chronic infectious/inflammatory arthropathy. Interventions/treatments: Pt was seen and examined at bedside. Introduces self and role as wound care nurse. Pt is known to wound care. Removed dressing to BL hands. Cleansed w/ soap & water. Applied bacitracin, adpatic and DSD. Secured in place w/ roll gauze. Pt tolerated well. Denied pain. Recommendations: BL hand wounds: -cleanse w/ soap & water. Pat dry. -apply bacitracin, adaptic and DSD daily -secure in place w/ roll gauze Thank you for consult. Coordinated care w/ nursing staff. Call or TT w/ any questions or concerns. Darlene Sloan LPN,[facility] Licensed Practical Nurse, Wound Care Certified Wound Care Resource Nurse 12/28/22 12:18 PM documented in this encounter Nursing Notes * Darrion Spears RN - 01/18/2023 2:37 PM EDT PSYCHIATRY NURSING DISCHARGE SUMMARY [address] [address] Patient Name: Gil Irby Discharge Date: 01/18/2023 Discharge Time: 1437 NURSING DISCHARGE SUMMARY: Discharge instructions reviewed with patient, pt verbalized understanding. Patient denies SI, HI, hallucinations. Patient is a tobacco user, received nicotine replacement here. Patient accepting of tobacco cessation education, but not interested in quitting at this time. Advance Directives: Patient was provided copy of the Advance Directive Booklet: Declined Patient was provided copy of the [facility] Advance Directive Booklet: Declined PATIENT DISCHARGE SUMMARY: Accompanied by: Elena RICARDO Mode Of Transportation: Ambulatory Valuables Returned: Yes Belongings Returned: Yes Home Medications Returned: Yes Is patient being discharged to an acute facility/unit? No * Darrion Spears RN - 01/18/2023 11:33 AM EDT PHQ9 Survey Results Last 24hours (since 01/17/2023) Little interest or pleasure in doing things Several days Feeling down, depressed or hopeless Several days Trouble falling or staying asleep, or sleeping too much More than half the days Feeling tired or having little energy Several days Poor appetite or overeating Not at all Feeling bad about yourself - or that you are a failure, or have let yourself or your family down Several days Trouble concentrating on things, such as reading the newspaper or watching television Several days Moving or speaking so slowly that other people could have noticed. Or the opposite - being so fidgety or restless that you have been moving around a lot more than usual Not at all Thoughts that you would be better off , or of hurting yourself Not at all PHQ Adult Total Score 7 * Jevon Vasquez NA - 01/18/2023 8:33 AM EDT PSYCHIATRY PATIENT DAILY SELF REPORT [address] [address] Name: Gil Irby Location: [facility] [id number] Date: 01/18/2023 Time: 8:56 AM The patient reports the following: How are you sleeping? good # of Hours: 8 How is your appetite? good On a scale from 0-10, rank your feelings of depression: 2 (0 being no depression and 10 being extremely depressed) On a scale from 0-10, rank your feelings of anxiety: 3 (0 being no anxiety and 10 being extremely anxious) On a scale from 0-10, rank your physical pain: (0 being no pain and 10 being extreme pain) On a scale from 0-10, how are you managing your symptoms: 8 (0 being not managed at all and 10 being managed well) Are you having thoughts of hurting yourself or others? If yes, please be specific. no Are you experiencing hallucinations? If yes, please be specific. no Are you taking your medications as prescribed? yes Identify a situation you handled well within the last 24 hours: na Identify a situation you had a problem handling within the last 24 hours: na Identify a short term goal to work on today that will help you meet your treatment plan goals: na * Jevon Vasquez NA - 01/18/2023 8:32 AM EDT Patient self-reported data from community meeting: Feeling: happy Rates mood as: 8 Daily goal: go home How others can help me: stay positive * Cinthia Gibson RN - 01/18/2023 12:33 AM EDT The patient will be discharged on 1 antipsychotic. (Seroquel) * Cinthia Gibson RN - 01/17/2023 8:50 PM EDT Patient self-reported data from wrap-up meeting: Feeling word: Hopeful Rates mood as: 7 Did you meet your daily goal? Yes Positive thought: Be positive Adverse medication reaction: no * Carlos Manuel Underwood RN - 01/17/2023 3:14 PM EDT Pt was invited to but did not attend the 1300 group therapy session. * Carlos Manuel Underwood RN - 01/17/2023 1:16 PM EDT Pt's BSBS was 213 after lunch. * Carlos Manuel Underwood RN - 01/17/2023 11:58 AM EDT 1120 Pt reported that his blood sugar was dropping. His BSBS was 73. He was given a muffin to eat. 1151 Pt reported that his blood sugar was dropping. His BSBS was 53. He was given orange juice and his lunch tray. Insulin will be held for lunch time. 1200 E Sample PA-C was made aware that pt's BSBS was 73 and then 53 after a snack and rechecking BSBS. E Sample PA-C was made aware that pt's lunch time insulin will be held. * Carlos Manuel Underwood RN - 01/17/2023 11:13 AM EDT Pt asked for wound care to be completed to his right fifth finger. Pt stated that he picked the area open and would like the wound to be covered so that he does not continue to pick at the wound. There was a small amount of sanguineous fluid noted on the band-aid that was removed from the wound. Ptcleaned his hands. Bacitracin was applied to 2 small, red wound beds on the right fifth finger. Thewound was covered with a nonstick dressing and wrapped with roll guaze. * Darrion Spears RN - 01/17/2023 8:32 AM EDT PSYCHIATRY PATIENT DAILY SELF REPORT [address] [address] Name: Gil Irby Location: [facility] [id number] Date: 01/17/2023 Time: 8:32 AM The patient reports the following: How are you sleeping? good # of Hours: 8+ How is your appetite? good On a scale from 0-10, rank your feelings of depression: 3 (0 being no depression and 10 being extremely depressed) On a scale from 0-10, rank your feelings of anxiety: 3 (0 being no anxiety and 10 being extremely anxious) On a scale from 0-10, rank your physical pain: 0 (0 being no pain and 10 being extreme pain) On a scale from 0-10, how are you managing your symptoms: 8 (0 being not managed at all and 10 being managed well) Are you having thoughts of hurting yourself or others? If yes, please be specific. no Are you experiencing hallucinations? If yes, please be specific. no Are you taking your medications as prescribed? yes Identify a situation you handled well within the last 24 hours: Pt did not answer Identify a situation you had a problem handling within the last 24 hours: Pt did not answer Identify a short term goal to work on today that will help you meet your treatment plan goals: Pt did not answer * Darcy Stewart NA - 01/17/2023 8:31 AM EDT Patient self-reported data from community meeting: Feeling: Pissed Rates mood as: 5 Daily goal: Not snap out How others can help me: To be positive * Thalia Odell RN - 01/17/2023 6:14 AM EDT Pt awake at nurses station. States that he feels as though his blood sugar is low. Fingerstick obtained. Result 31. Maries juice, milk and cookies provided. 0635: Pt reports feeling better. Blood sugar rechecked, result 184. * Alix Daniel RN - 01/16/2023 9:43 PM EDT Pt did not attend wrap up. No medication reactions noted. * Brooke Gonzalez TECH - 01/16/2023 2:26 PM EDT Patient self-reported data from community meeting: Pt did not attend. * Torres Perez RN - 01/16/2023 2:20 PM EDT Pt upset with roommate Mulugeta for stinking up the room. Ask him to use another bathroom. Later he apologized to him. Possible d/c . Has been appropriate and cooperative with care. Appears nervous that his significant went to rehab and will not be there for him. * Torres Perez RN - 01/16/2023 9:57 AM EDT PSYCHIATRY PATIENT DAILY SELF REPORT [address] [address] Name: Gil Irby Location: [facility] [id number] Date: 01/16/2023 Time: 9:57 AM The patient reports the following: How are you sleeping? good # of Hours: 8 How is your appetite? good On a scale from 0-10, rank your feelings of depression: 4 (0 being no depression and 10 being extremely depressed) On a scale from 0-10, rank your feelings of anxiety: 4 (0 being no anxiety and 10 being extremely anxious) On a scale from 0-10, rank your physical pain: 0 (0 being no pain and 10 being extreme pain) On a scale from 0-10, how are you managing your symptoms: 8 (0 being not managed at all and 10 being managed well) Are you having thoughts of hurting yourself or others? If yes, please be specific. no Are you experiencing hallucinations? If yes, please be specific. no Are you taking your medications as prescribed? yes Identify a situation you handled well within the last 24 hours: n/a Identify a situation you had a problem handling within the last 24 hours: n/a Identify a short term goal to work on today that will help you meet your treatment plan goals: n/a * Thalia Odell RN - 01/16/2023 5:32 AM EDT 0520: pt ambulated to nurses station stating that he felt like his blood sugar was low. Fingerstickobtained. BSBS 37. Pt drank a carton of milk ,one orange juice and ate jordan crackers and an oatmeal cookie. A.M vital signs obtained and were stable. States that he woke up feeling "shaky" and knewthat his blood sugar was low. 0550: Pt reports feeling better. Repeat blood sugar 138. * Alix Daniel RN - 01/15/2023 10:17 PM EDT - physician notified, told to give 4 units and routine lantus 2150- 514 was the BSBS recheck, provider ordered med consult and additional 2 units to be given andrecheck one hour. 2226- Hospitalist said to give the 6 units then recheck in one hour. 0017- BSBS 339, new order to give additional 2 units and recheck in am. * Arianna Joseph RN - 01/15/2023 10:10 PM EDT 2029 Patient requested "stomach pill" with evening meds. PRN dicyclomine 10 mg given per MAR order. * Alix Daniel RN - 01/15/2023 9:59 PM EDT Pt was at wrap up but refused to answer questions. No medication reactions noted. * Torres Perez RN - 01/15/2023 3:40 PM EDT Pt received a call from his who stated to staff she was leaving for rehab. Call appeared to marcos. Pt was appropriate and thanked staff for allowing him to talk to her during group time. * Darcy Stewart NA - 01/15/2023 9:14 AM EDT Patient did not attend community meeting. * Thalia Odell RN - 01/15/2023 12:39 AM EDT Patient self-reported data from wrap-up meeting: Feeling word: optimistic Rates mood as: 5 Did you meet your daily goal? yes Positive thought: Be hopeful Adverse medication reaction: no * eJvon Vasquez NA - 01/14/2023 8:04 PM EDT [place] patient slam door. When approached, patient stated that he "cannot stop shitting myself, I cannot sleep with the door open because of the noise and I cannot sleep with the door closed because it is so goddamn hot in here." Explained to patient that I would contact maintenance about the heat. 2000: Asked patient to get blood sugar, patient in agreement. Asked how his visit went and he said not great, and that he is just going through it right now. Patient emotional, offered support. Patient thanked and is resting in bed. * Darrion Spears RN - 01/14/2023 6:34 PM EDT Patient's in to visit, when he was notified he said "I didn't want any visits from her" and was slightly agitated. He agreed to visit with her although. The visit seemed to go well and he didn'tescalate. Staff spoke with patient and he states that the ex- says she is going to rehab for about 2 months now and has never gone, she continues to use and blaming him for her not being able to go to rehab because he's in here. States she has not been truthful or faithful while he has been in here. * Ольга Germain LPN - 01/14/2023 5:54 PM EDT PSYCHIATRY GROUP THERAPY NOTE INPATIENT PSYCHIATRY [address] [address] Name: Gil Irby Location: [facility] 5/A Date: 01/14/2023 Time: 5:54 PM Group Start Time: 1300 Group End Time: 1355 THERAPEUTIC GROUP ACTIVITIES ATTENDED: Other/Describe: LUIS ALBERTO COMMENTS: Comments/Describe: Active participation with the activity pt participated for 30 minutes of the activity Ольга Germain LPN * Carlos Manuel Underwood RN - 01/14/2023 3:38 PM EDT Pt's wounds to the bilateral hands are closed. Pt declined wound care at this time. * Darrion Spears RN - 01/14/2023 9:26 AM EDT Patient self-reported data from community meeting: Feeling: happy Rates mood as: 5 Daily goal: go to group How others can help me: make me go to group * Darrion Spears RN - 01/14/2023 9:06 AM EDT PSYCHIATRY PATIENT DAILY SELF REPORT [address] [address] Name: Gil Irby Location: [facility] [id number] Date: 01/14/2023 Time: 9:08 AM The patient reports the following: How are you sleeping? good # of Hours: 8+ How is your appetite? good On a scale from 0-10, rank your feelings of depression: 2 (0 being no depression and 10 being extremely depressed) On a scale from 0-10, rank your feelings of anxiety: 2 (0 being no anxiety and 10 being extremely anxious) On a scale from 0-10, rank your physical pain: 0 (0 being no pain and 10 being extreme pain) On a scale from 0-10, how are you managing your symptoms: 8 (0 being not managed at all and 10 being managed well) Are you having thoughts of hurting yourself or others? If yes, please be specific. no Are you experiencing hallucinations? If yes, please be specific. no Are you taking your medications as prescribed? yes Identify a situation you handled well within the last 24 hours: pt did not answer Identify a situation you had a problem handling within the last 24 hours: pt did not answer Identify a short term goal to work on today that will help you meet your treatment plan goals: pt did not answer * Cinthia Gibson RN - 01/13/2023 8:57 PM EDT Patient self-reported data from wrap-up meeting: Feeling word: Hopeful Rates mood as: 5 Did you meet your daily goal? No Positive thought: Be positive Adverse medication reaction: no * Rupert Cardona RN - 01/13/2023 5:35 PM EDT PSYCHIATRY GROUP THERAPY NOTE INPATIENT PSYCHIATRY [facility] [address] Name: Gil Irby Location: [facility] [id number] Date: 01/13/2023 Time: 5:36 PM Group Start Time: 11;00 Group End Time: 12:00 THERAPEUTIC GROUP ACTIVITIES ATTENDED: Educational Group: Hope for tomorrow - Imaging that shows mental illness, Participation: Moderate, Interactions: Appropriate, Behaviors: Able to give feedback * Rupert Cardona RN - 01/13/2023 5:17 PM EDT Patient self-reported data from community meeting: Feeling: ectatic Rates mood as: 8 Daily goal: Go to all groups How others can help me: stay positive * Carlos Manuel Underwood RN - 01/13/2023 5:06 PM EDT Pt was asked to but did not attend the 1600 group therapy session. * Carlos Manuel Underwood RN - 01/13/2023 11:12 AM EDT Pt was made aware that a stool sample is needed. * Ольга Germain LPN - 01/13/2023 10:55 AM EDT 0807- Pt received medications at this time. Tolerated well at this time. Pt BSBS this AM was 82 with no s/s at this time. Pt eating breakfast at this time activity room at this time * Ольга Germain LPN - 01/13/2023 7:46 AM EDT PSYCHIATRY PATIENT DAILY SELF REPORT [address] [address] Name: Gil Irby Location: [facility] [id number] Date: 01/13/2023 Time: 7:46 AM The patient reports the following: How are you sleeping? good # of Hours: 8 How is your appetite? good On a scale from 0-10, rank your feelings of depression: 2 (0 being no depression and 10 being extremely depressed) On a scale from 0-10, rank your feelings of anxiety: 2 (0 being no anxiety and 10 being extremely anxious) On a scale from 0-10, rank your physical pain: 0 (0 being no pain and 10 being extreme pain) On a scale from 0-10, how are you managing your symptoms: 8 (0 being not managed at all and 10 being managed well) Are you having thoughts of hurting yourself or others? If yes, please be specific. no Are you experiencing hallucinations? If yes, please be specific. no Are you taking your medications as prescribed? yes Identify a situation you handled well within the last 24 hours: n/a Identify a situation you had a problem handling within the last 24 hours: n/a Identify a short term goal to work on today that will help you meet your treatment plan goals: n/a Ольга Germain LPN * Cinthia Gibson RN - 01/12/2023 8:22 PM EDT 2014 - During room checks, pt made this RN aware that he is having a small amount of rectal bleeding that just began. Small spot of blood noted on backside of pt underwear. Dr. Us made aware via tiger text. * Cinthia Gibson RN - 01/12/2023 8:21 PM EDT Patient self-reported data from wrap-up meeting: Feeling word: Optimistic Rates mood as: 8 Did you meet your daily goal? Yes Positive thought: Be positive Adverse medication reaction: no * Page Paris RN - 01/12/2023 9:28 AM EDT PSYCHIATRY PATIENT DAILY SELF REPORT [address] [address] Name: Gil Irby Location: [facility] [id number] Date: 01/12/2023 Time: 9:28 AM The patient reports the following: How are you sleeping? good # of Hours: 8+ How is your appetite? good On a scale from 0-10, rank your feelings of depression: 2 (0 being no depression and 10 being extremely depressed) On a scale from 0-10, rank your feelings of anxiety: 2 (0 being no anxiety and 10 being extremely anxious) On a scale from 0-10, rank your physical pain: 0 (0 being no pain and 10 being extreme pain) On a scale from 0-10, how are you managing your symptoms: 8 (0 being not managed at all and 10 being managed well) Are you having thoughts of hurting yourself or others? If yes, please be specific. no Are you experiencing hallucinations? If yes, please be specific. no Are you taking your medications as prescribed? yes Identify a situation you handled well within the last 24 hours: N/A Identify a situation you had a problem handling within the last 24 hours: N/A Identify a short term goal to work on today that will help you meet your treatment plan goals: N/A * Darcy Stewart NA - 01/12/2023 8:58 AM EDT Patient self-reported data from community meeting: Feeling: Hopeful Rates mood as: 9 Daily goal: Try to get sent somewhere, a medical rehab How others can help me: Be positive * Tiffany Peralta RN - 01/11/2023 10:14 PM EDT Patient self-reported data from wrap-up meeting: Feeling word: happy Rates mood as: 8 Did you meet your daily goal? I'm here Positive thought: Stay positive Adverse medication reaction: No * Carlos Manuel Underwood RN - 01/11/2023 1:30 PM EDT Wounds to the right and left hands are closed. Pt declined bacitracin and wound dressings. Pt stated that if any of the wounds became open, he would alert staff. * Carlos Manuel Underwood RN - 01/11/2023 10:12 AM EDT PSYCHIATRY PATIENT DAILY SELF REPORT [address] [address] Name: Gil Irby Location: [facility] [id number] Date: 01/11/2023 Time: 10:12 AM The patient reports the following: How are you sleeping? good # of Hours: 8+ How is your appetite? good On a scale from 0-10, rank your feelings of depression: 2 (0 being no depression and 10 being extremely depressed) On a scale from 0-10, rank your feelings of anxiety: 2 (0 being no anxiety and 10 being extremely anxious) On a scale from 0-10, rank your physical pain: 0 (0 being no pain and 10 being extreme pain) On a scale from 0-10, how are you managing your symptoms: 8 (0 being not managed at all and 10 being managed well) Are you having thoughts of hurting yourself or others? If yes, please be specific. no Are you experiencing hallucinations? If yes, please be specific. no Are you taking your medications as prescribed? yes Identify a situation you handled well within the last 24 hours: no response Identify a situation you had a problem handling within the last 24 hours: no response Identify a short term goal to work on today that will help you meet your treatment plan goals: no response * Brooke Gonzalez TECH - 01/11/2023 8:39 AM EDT Patient self-reported data from community meeting: Feeling: hopeful Rates mood as: 8 Daily goal: get through the day How others can help me: stay positive * Alix Daniel RN - 01/10/2023 8:40 PM EDT Patient self-reported data from wrap-up meeting: Feeling word: ecstatic Rates mood as: 9 Did you meet your daily goal? yes Positive thought: stay hopeful Adverse medication reaction: no * Darcy Stewart NA - 01/10/2023 9:18 AM EDT Patient self-reported data from community meeting: Feeling: Confused Rates mood as: 7 Daily goal: Talk with Halina today How others can help me: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 from 0-10, rank your feelings of anxiety: 8 (0 being no anxiety and 10 being extremely anxious) On a scale from 0-10, rank your physical pain: 0 (0 being no pain and 10 being extreme pain) On a scale from 0-10, how are you managing your symptoms: 7 (0 being not managed at all and 10 being managed well) Are you having thoughts of hurting yourself or others? If yes, please be specific. no Are you experiencing hallucinations? If yes, please be specific. no Are you taking your medications as prescribed? yes Identify a situation you handled well within the last 24 hours: Pt did not answer Identify a situation you had a problem handling within the last 24 hours: "Not hearing from my family" Identify a short term goal to work on today that will help you meet your treatment plan goals: Pt did not answer * Cinthia Gibson RN - 12/30/2022 8:20 PM EDT Patient self-reported data from wrap-up meeting: Feeling word: lonely Rates mood as: 7 Did you meet your daily goal? Yes Positive thought: Be hopeful Adverse medication reaction: no * Cinthia Gibson RN - 12/30/2022 7:54 PM EDT Patient is currently taking an antipsychotic medication. Chart reviewed for lab results: Hgb A1C: 12/29/22 @ 0517 Lipid Panel: 12/29/22 @ 1205 * Carlos Manuel Underwood RN - 12/30/2022 5:03 PM EDT Wound care completed to the bilateral hands. His hands were cleaned with soap and water and patted dry. The wounds to the hands have a scant amount of serosanguinous drainage. The wounds are healing and some are beginning to scab over. Bacitracin was applied, as well as adaptic, a DSD, and wrapped with guaze. * Carlos Manuel Underwood RN - 12/30/2022 2:54 PM EDT PSYCHIATRY GROUP THERAPY NOTE INPATIENT PSYCHIATRY [facility] [address] Name: Gli Irby Location: [facility] [id number] Date: 12/30/2022 Time: 2:57 PM Group Start Time: 1330 Group End Time: 1400 THERAPEUTIC GROUP ACTIVITIES ATTENDED: Mental Stimulation Group: card game "Say What?", Participation: Active, Interactions: Appropriate, Behaviors: Able to follow given directions/rules and Able to give feedback * Carlos Manuel Underwood RN - 12/30/2022 2:52 PM EDT PSYCHIATRY GROUP THERAPY NOTE INPATIENT PSYCHIATRY [address] [address] Name: Gil Irby Location: [address] Date: 12/30/2022 Time: 2:53 PM Group Start Time: 1100 Group End Time: 1150 THERAPEUTIC GROUP ACTIVITIES ATTENDED: Healthy Living:Active, Interactions: Appropriate, Behaviors: Able to follow given directions/rules and Able to give feedback * Natalie Aguirre NA - 12/30/2022 10:00 AM EDT Patient self-reported data from community meeting: Feeling: optimistic Rates mood as: 8 Daily goal: get through the weekend How others can help me: worry about getting better * Darrion Álvarez RN - 12/30/2022 9:12 AM EDT PSYCHIATRY PATIENT DAILY SELF REPORT [address] [address] Name: Gil Irby Location: [address] Date: 12/30/2022 Time: 9:12 AM The patient reports the following: How are you sleeping? good # of Hours: 8+ How is your appetite? fair On a scale from 0-10, rank your feelings of depression: 8 (0 being no depression and 10 being extremely depressed) On a scale from 0-10, rank your feelings of anxiety: 8 (0 being no anxiety and 10 being extremely anxious) On a scale from 0-10, rank your physical pain: 0 (0 being no pain and 10 being extreme pain) On a scale from 0-10, how are you managing your symptoms: 5 (0 being not managed at all and 10 being managed well) Are you having thoughts of hurting yourself or others? If yes, please be specific. no Are you experiencing hallucinations? If yes, please be specific. no Are you taking your medications as prescribed? yes Identify a situation you handled well within the last 24 hours: "none" Identify a situation you had a problem handling within the last 24 hours: "none" Identify a short term goal to work on today that will help you meet your treatment plan goals: "find somewhere to go" * Darrion Spears RN - 12/29/2022 9:45 PM EDT TREATMENT PLAN NOTE INPATIENT PSYCHIATRY [facility] [address] Name: Gil Irby Location: [facility] [id number] Date: 12/29/2022 Time: 9:45 PM Commitment Level on Admission: 201 Initial Diagnosis: Anxiety Disorder Bipolar Disorder Depressed Anticipated Length of Stay: 5-7 days Gil STRENGTHS: Please select a minimum of 2 strengths Seeking help and Cooperative OPPORTUNITIES FOR IMPROVEMENT: Area of Need: anxiety Short Term Goal: Gil will discuss any anxiety related issues with staff at least once a shift while awake. Goal Progress: New need Target Date: 01/05/23 Goal Progress: Moving toward and Continue Target Date: 01/12/23 Goal Progress: Moving toward and Continue Target Date: 01/19/23 Goal Progress: Goal achieved Discharge date 01/18/23 Psych Area of Need: depressed mood Short Term Goal: Gil will report an elevation in mood by target date. Gil will demonstrate an elevation in mood by utilizing one to one interactions with staff every shift while awake by target date. Gil will demonstrate an elevation in mood as observed by attendance and participation in unit activity and groups by by target date. Gil will demonstrate an elevation in mood by interacting with other patients on a more frequent basis. Goal Progress: New need Target Date: 01/05/23 Goal Progress: Moving toward and Continue Target Date: 01/12/23 Goal Progress: Moving toward and Continue Target Date: 01/19/23 Goal Progress: Goal achieved Discharge date 01/18/23 Psych Area of Need: ineffective coping strategies Short Term Goal: Gil will identify and discuss stressful situations with staff every shift while awake by target date. Gil will identify at least one coping skill to use when dealing with stressful situations by target date. Goal Progress: New need Target Date: 01/05/23 Goal Progress: Moving toward and Continue Target Date: 01/12/23 Goal Progress: Moving toward and Continue Target Date: 01/19/23 Goal Progress: Goal achieved Discharge date 01/18/23 PSYCH INTERVENTIONS: Core Interventions: One to one interaction with staff Medication Therapeutic group activities Patient education Discharge planning Daily session with psychiatrist Psycho-educational groups Leisure activities Community meetings Observation levels Additional interventions: Group therapy director of services INSOLE TAPER GOALS: Gil will report a decrease in depressive symptoms and an improvement in mood by discharge. Gil will return home with their mood improved and eating, drinking and performing activities of daily living. Gil will report a decrease in anxiety levels when facing events that precipitate increased anxiety by discharge. Gil will interact with staff and peers using appropriate, acceptable behaviors by discharge. Gil will demonstrate increased self-esteem through verbal expression of positive aspects of self by discharge. Gil will be free from physical injury for duration of hospital stay. Gil will indentify and use one positive coping skill by discharge. Gil will keep all follow up appointments. Gil will take medications as prescribed and, if there are issues with the medication, will discuss with psychiatrist. Gil will reach out to positive supports. MEDICAL NEEDS: Chronic Medical Need: Gil's goals listed below: Diabetes: Will maintain stable glucose levels during the hospital stay. Intervention - Monitor glucose levels. Consistent carbohydrate diet as ordered. Administer prescribed medications. Nicotine dependence: Will have a decrease in nicotine cravings. Intervention - Provide nicotine replacement therapy as ordered. Monitor vital signs as ordered. Discharge date 01/18/23 Acute Medical Need:N/A Short Term Goal: N/A Interventions: N/A Goal Progress: N/A Target Date: N/A Discharge date 01/18/23 Coco Jean MD Attending psychiatrist 01/01/23 9:29 AM Palak Arroyo PA-C 01/01/2023 10:14 AM Palak Arroyo PA-C 01/08/2023 9:12 AM Coco Jean MD Attending psychiatrist 01/08/23 9:12 AM Palak Arroyo PA-C 01/15/2023 8:54 AM Coco Jean MD Attending psychiatrist 01/15/23 8:56 AM * Cinthia Gibson RN - 12/29/2022 9:19 PM EDT Patient self-reported data from wrap-up meeting: Refused. Stated "I'll pass for tonight" Adverse medication reaction: no * Cinthia Gibson RN - 12/29/2022 8:40 PM EDT PHQ9 Survey Results Last 24hours (since 12/28/2022) Little interest or pleasure in doing things More than half the days Feeling down, depressed or hopeless Nearly everyday Trouble falling or staying asleep, or sleeping too much More than half the days Feeling tired or having little energy Nearly everyday Poor appetite or overeating Nearly everyday Feeling bad about yourself - or that you are a failure, or have let yourself or your family down Nearly everyday Trouble concentrating on things, such as reading the newspaper or watching television Nearly everyday Moving or speaking so slowly that other people could have noticed. Or the opposite - being so fidgety or restless that you have been moving around a lot more than usual Several days Thoughts that you would be better off , or of hurting yourself More than half the days PHQ Adult Total Score 22 * Rupert Cardona RN - 12/29/2022 7:34 PM EDT Gil states that he is homeless. When describing his use of drugs "I was living with my mother andshe won't quit using and when I am around it and she is using then its hard for me not to. I know that it is my decision and responsibility, but its hard, she won't grow up. Two weeks ago she threw me and my out, we have been 11 years and been together for 20, I have a daughter with ano ther woman and I have two step daughters by her and one step grandchild. My is now with another man." At this point he began to cry. * Juanita West LPN - 12/29/2022 7:24 PM EDT Pt taken to at 1820 via wheelchair. All belongings sent with pt. Chele RICARDO received report. * Adam French RN - 12/29/2022 6:42 PM EDT Pt arrived to unit at 1820 accompanied by 4B staff. Pt calm and cooperative on admission. Pt has L Leg brace and walks with cane. Pt has b/l hand wounds, positive for strep A in both hands, but has been on abx for over 24 hours and does not require isolation per isolation , that have daily dressingchanges that have been completed already prior to arrival. Pt is cooperative for vitals, safety search and contraband search. Pt starting admission process at this time. Pt denying SI/HI and A/VH on admission. Nicotine replacement ordered. Will continue to monitor. * Seema Aragon RN - 12/28/2022 10:54 PM EDT 1999- Pt AOx4. Denies pain. Assessment completed. Dressings on bilat hands clean and intact. 2130- Pt self administered insulin drawn up by nurse per MAY. * Seema Aragon RN - 12/27/2022 9:09 PM EDT Dual Licensed Skin Assessment completed by Svetlana Aragon RN and Pilar Ferguson RN. The patient is/has a N/A Skin Breakdown (includes non blanchable erythema): Yes. Wound Type: Other, location chronic wounds on bilat 5th fingers Wound Ostomy Nurse Notified: Yes - notified via wound care protocol Nursing interventions: Cleased wounds with NSS, dried, applied telfa and wrapped with gauze * Seema Aragon RN - 12/27/2022 8:44 PM EDT 2012- Pt AOx4. Denies pain. Admission assessment completed. Wounds to bilat 5th fingers, cleansed with NSS and covered with telfa and wrapped in gauze. Pt denies SI at this time but admits to suicideattempt last week, giving self 25units insulin. 1:1 at bedside. Orthos positive, pt c/o dizziness when standing. 2207- Pts BSBS 469. Per sliding scale call doctor for BS greater than 390, Owen Calabrese made aware, 8units to be given plus additional 4 units ordered by Owen MELARA. 0355- Pts BP 86/54, asymptomatic. BSBS 335. Owen Calabrese PA aware. No new orders at this time. * Cindy Hooker RN - 12/27/2022 7:33 PM EDT 2: Pt arrived to floor via wheelchair. Bed in lowest position, call stewart within reach. 9: Virtual nurse completed admission questions. 7: This RN made aware of pt's thoughts of suicidal behavior, charge nurse made aware and pt not left alone. 6: VS BP 92/60 | Pulse 79 | Temp 35.6 C (96.1 F) (Tympanic) | Resp 20 | SpO2 95% * Simran Martinez RN - 12/27/2022 7:19 PM EDT VIRTUAL RN [facility] [address] Name: Gil Irby Location: [facility] [id number] Date: 12/27/2022 Time: 7:19 PM I completed the Admission Navigator. The patient was in the hospital. I was in a private office space at a [facility] location. After connecting through [employer], the patient was identified by name and date of and / or wristband checked. Patient (or authorized legal novelties sales representative) was then in formed that this was a Virtual Nurse visit and was being conducted confidentially over secure lines. I used a headset and other methods to ensure confidentiality for the patient. Patient acknowledgedconsent and understanding of privacy and security of the Virtual Nurse visit. I presented the opportunity for the patient or authorized legal novelties sales representative to ask any questions regarding the visit today. The patient or authorized legal novelties sales representative agreed to participate. Message to bedside nurse Cindy Hooker, patient has shown a high risk of suicide recently by taking insulin dosage to kill himself within the past 2 weeks, I stayed on video until 1:1 entered the room. He also reports 50# weight loss within 2-3 months, having needs currently for food, bill assistance, and transportation, and is currently homeless. If possible he is willing to receive any vaccinations (flu or pneumonia) prior to discharge. documented in this encounter ED Notes * Bonifacio Ratliff MD - 12/27/2022 12:23 PM EDT Images from the original note were not included. HISTORY OF PRESENT ILLNESS Gil Irby is a 37 year old male who presents to the ED for evaluation of Weakness, Generalized. The patient was seen at 12/27/22 1222. Pt reports he is passing out or falling when he stands up. Was recently here with orthostatic hypotension. Hasn't been eating and drinking much. Has been sleeping in a camper with out water. Missed two days of methadone clinic. He says he was supposed to get surgery on his right hand to take care of a bone infection last weekbut he could not get to that surgery and that has not been done. Weakness, Generalized The patient's allergies, past history, and medications were reviewed. PHYSICAL EXAM Initial Vitals (see all): BP 85/68 | Pulse 93 | Resp 18 | Temp 98.1 | O2 98 %, Room Air, None | Weight 45.1 kg | Height 167.6cm | BMI 16.05 kg/m2 Initial Pain Assessment (see all): 7 (severe pain)/10, location: lower back ([facility] Adult Scale 0-10) Physical Exam Vitals and nursing note reviewed. Constitutional: General: He is in acute distress. Appearance: He is underweight. He is ill-appearing. HENT: Head: Normocephalic. Right Ear: External ear normal. Left Ear: External ear normal. Mouth/Throat: Pharynx: Oropharynx is clear. Eyes: Extraocular Movements: Extraocular movements intact. Neck: Trachea: No tracheal deviation. Cardiovascular: Rate and Rhythm: Normal rate. Pulmonary: Effort: Pulmonary effort is normal. Breath sounds: Normal breath sounds. Abdominal: Palpations: Abdomen is soft. Tenderness: There is no abdominal tenderness. Musculoskeletal: General: No deformity. Hands: Comments: Large dry ulcer right fifth finger is found after old Lexx wrap and old cotton are removed The PIP joint of the right fifth finger moves freely as if there is no ligamentous attachment Dry erythematous ulcer dorsum left index and middle finger MCP areas Skin: Coloration: Skin is pale. Findings: Rash and wound present. Comments: See right hand exam Neurological: Mental Status: He is alert. Motor: No weakness. Psychiatric: Behavior: Behavior is cooperative. PROCEDURES AND TREATMENTS ED Orders | ED Results MEDICAL DECISION MAKING Nursing notes and vital signs were reviewed. ED consults were placed. ED Course as of 12/29/22 0216 SunDec 27, 2022 1224 Relatively young adult with diabetes and very high blood sugar and hypotension, initiating treatment as if sepsis is present, may be able to differentiate hypotension better after testing results are available [RO] [address] [facility] pharmacy, they are going to contact the methadone clinic he goes to [facility] on [address], patient claims he is supposed to get 107 mg of methadone per day and as of this morning he missed 2 consecutive doses. [RO] 1302 EKG shows sinus rhythm with short HI rate of 88 rightward axis QTC normal at 438, short HI interval is new, prior study was 120 this studies 110 [RO] 1304 I received this message from pharmacist: I spoke to [facility] (on [address]) and [facility] (on [address]) and neither of them have any record of Andres Mchugh. I don't have any record of him gettingmethadone on Epic. [RO] 1311 On review, I have found the record of the doses, pharmacist reviewed with me and we agree there is verification of the dose the patient claims. [RO] 1646 Dr. King/ortho: limited evidence so far for acute osteomyelitis, available for consultation if needed [RO] 1740 Patient states he wants placement in safer living situation [RO] 1741 Dr. Mcmillan accepts [RO] ED Course User Index [RO] Bonifacio Ratliff MD Amount and/or Complexity of Data Reviewed Labs: ordered. Radiology: ordered. ECG/medicine tests: ordered. Risk Prescription drug management. Decision regarding hospitalization. Clinical Impressions Dehydration Generalized weakness Hyperglycemia Noncompliance with medications Housing insecurity Disposition Admitted. I discussed the management of this patient with the admitting provider and I made a decision to admit the patient. Admission Order Ordered Status . 12/27/221739 Assign to Observation ONCE Comments: I have evaluated this patient and recommend this patient to be upgraded to observation for assessment and re-assessment. Completed Bonifacio Ratliff * Silvina Chavez RN - 12/27/2022 12:08 PM EDT Pt reports he is passing out or falling when he stands up. Was recently here with orthostatic hypotension. Hasn't been eating and drinking much. Has been sleeping in a camper with out water. Missed two days of methadone clinic. documented in this encounter Miscellaneous Notes * Care Plan - Cinthia Gibson RN - 01/18/2023 12:15 AM EDT Clinical Goal(s): Pt will attend wrap-up group this shift (01/17/232047) Possible barriers to meeting goal(s)/advancing plan of care: Poor judgement Stability of the patient: Moderately stable - low risk of patient condition declining or worsening Summary regarding today's goal(s): Met: Attended Recommendations: Continue to encourage groups * Ancillary Progress Note - Halina Hoyt Med - 01/17/2023 3:01 PM EDT Call to [facility] inquiring what steps to get him involved with IOP when being discharged tomorrow. He is able to just be referred directly because of his [facility] insurance status to [employer]. * Care Plan - Alix Daniel RN - 01/17/2023 5:00 AM EDT Clinical Goal(s): Pt will attend wrap- up group this shift (01/16/231999) Possible barriers to meeting goal(s)/advancing plan of care: None Stability of the patient: Moderately stable - low risk of patient condition declining or worsening Summary regarding today's goal(s): Not Met: Pt did not attend wrap up Recommendations: Continue plan of care * Ancillary Progress Note - Denis Paredes MS - 01/16/2023 5:16 PM EDT PSYCHIATRY GROUP THERAPY NOTE INPATIENT PSYCHIATRY [facility] [address] Name: Gil Irby Location: [facility] [id number] Date: 01/16/2023 Time: 5:17 PM THERAPEUTIC GROUP ACTIVITIES: Check In: Reviewed plans for the day. Asked how they were feeling in the moment by using an emotionchart. Did they accomplish their goals yesterday, and what is their goal for today. Music Therapy: Naming all the songs they remember that could be referenced for Halloween. Listened to parts of the songs. Recreation Therapy/ Music Therapy: Paraded around the unit to show their creative masks and hats. Then, they selected described words to make a surprising Halloween story. Lastly, some balloon volleyball with the morning selected Halloween music COMMENTS: Gil attended the first and second groups. He expressed feeling hopefull, because it 'sucks' that a rehab can't be found, But, he is accepting to the intensive outpatient rehab.He mentions his is currently in rehab. He also comments they have been together 17 years. He expresses that is a good amount of time. He receives feedback form one peer, whom is continuously talking.His goal for today is to figure out if he is going inpatient for rehab, or intensive outpatient. In the second group,he actively knew the songs and what time period the songs were from. He named several too. However,a peer said he won't be attending the last group. The peer commented something happened. * Care Plan - Alix Daniel RN - 01/16/2023 5:00 AM EDT Clinical Goal(s): Pt will attend wrap up (01/15/23 1900) Possible barriers to meeting goal(s)/advancing plan of care: None Stability of the patient: Moderately stable - low risk of patient condition declining or worsening Summary regarding today's goal(s): Met: partially met, pt was at wrap up but did not participate in answering the questions Recommendations: Continue plan of care * Ancillary Progress Note - Denis Paredes MS - 01/15/2023 4:54 PM EDT PSYCHIATRY GROUP THERAPY NOTE INPATIENT PSYCHIATRY [address] [address] Name: Gil Irby Location: [place] [id number]/ Date: 01/15/2023 Time: 4:54 PM THERAPEUTIC GROUP ACTIVITIES: Check In: Identify how they are feeling in the moment. Did they accomplish their goal over the weekend, and what is their goal for today. Also, discussed events for today and tomorrow. Recreation Therapy: Creating a mask. COMMENTS: Gil did not attend the first group, even after therapist invited him. He did attend the second group, but arrived later. Therapist caught him up with the activity, and he chose to wear a hat that is purple. He began the mask, but due to time he did not finish it. Therapist became aware that he wasn't feeling physically well, and spoke to him about completing his mask. He was alright with that. * Ancillary Progress Note - Alejandra Alegre RDN - 01/15/2023 12:35 PM EDT CLINICAL NUTRITION CONSULT/PROGRESS NOTE [address] [address] Name: Gil Irby Location: [place] [id number]/ Date: 01/15/2023 Time: 3:22 PM How patient was identified (select 2): date and Name Discussed in interdisciplinary rounds: No Gil Irby is a 37 year old male being seen for follow-up Primary Diagnosis: Patient is a 37 year old male admitted with depression Other pertinent information: Patient continues to eat well. He is mostly eating 100% of his meals. His blood sugars have been better controled. He reports no more really low blood sugars. No recent weight, one was ordered. No N/V. NUTRITION ASSESSMENT: Past medical/surgical history and medications reviewed. Food/Nutrition-Related History Nutrition Support: Diet: Carbohydrate Counting Previously followed diet: carbohydrate counting Food Allergies/Intolerances: none Adult Energy Intake: No significant decrease Percentage of meal intake: Greater than 75% Oral Nutrition Supplement (ONS): none Pertinent medications/vitamins/minerals/supplements: cholestyramine, novolog, lantus, culturelle, levoxyl, nutrisource Pertinent Biochemical Data: Latest Reference Range & Units 01/14/23 12:03 01/14/23 16:56 01/14/23 20:01 01/15/23 06:46 01/15/23 11:15 Glucose Meter 70 - 120 mg/dL 90 166 (H) 126 (H) 230 (H) 267 (H) (H): Data is abnormally high Insulin being adjusted Nutrition-Focused Physical Findings: Appearance: Thin Respiratory support: Nasal/Oral: No issues identified Digestive: No issues identified Last Bowel Movement: 01/12/23 (01/12/23 0600) Cognition: Awake, alert and Oriented Skin: Chronic pinky wounds (h/o osteomyelitis) Enteral access: none Nutrition Focused Physical Exam: NFPE completed on 01/05/23 Subcutaneous Fat Loss: Orbital fat pads: Moderate Buccal fat: Moderate Tricep: Severe Muscle Loss: Temples: Moderate Clavicles: Severe Shoulders: Severe Scapula: Severe Interosseous: Moderate Quadriceps: Severe Calves: Severe Edema Location: Lower extremities;Both (12/29/22 0830) Anthropometrics Measurements Admission weight: 45.1 kg Weight: 45.1 kg (99 lb 6.8 oz) (12/28/22 0700) Usual Body Weight: 57 kg Wickliffe weight: 61 kg Wickliffe Weight Based on BMI: 21.7 Interpretation of Weight Change Prior to Admission: 20% weight loss in 1 year (Moderate) Weight Changes Since Admission: No new wt to assess Nutrition Prescription: Energy needs: 25-30 Kcal/kg Kcal/day: 2000-4774 Based on Wickliffe weight Protein needs: 1.2-1.3 gm/kg Protein: 73-79 grams Based on Wickliffe weight Fluid needs: 35 ml/kg Fluid: 2135 ml/day Based on Wickliffe weight Malnutrition: Malnutrition Present: Yes (12/29/221554) Adult Malnutrition Classification: Severe (12/29/221554) Malnutrition Characteristics: Fat loss;Muscle loss;Weight loss (12/29/221554) Malnutrition Care Plan: Patient meets ASPEN/AND criteria for severe malnutrition. Plan to meet 100% of estimated calorie and 100% of estimated protein requirements via therapeutic diet. NUTRITION DIAGNOSIS: Malnutrition severe related to social or environmental circumstances as evidenced by 20% weight loss x 1 year, severe muscle loss, and moderate to severe fat loss. Underweight related to social or environmental circumstances as evidenced by BMI of 16. Goals: Patient will continue to consume greater than 75% of his daily meals. NUTRITION INTERVENTION/PLAN: Orders: Weight Continue current care plan Clinical Nutrition Recommendations: Diet: Continue current nutrition plan NUTRITION MONITORING AND EVALUATION: Nursing documentation flowsheets for percent meal intake Lab values warranting change with MNT Weight for trends Plan follow-up: Will follow and adjust nutrition plan of care as medical condition requires. Please contact for change(s) in patient condition requiring earlier intervention. Alejandra Alegre RDN, DEVAN HUNTER Clinical Dietitian Phone [phone] [employer] * Care Plan - Cinthia Gibson RN - 01/15/2023 12:55 AM EDT Clinical Goal(s): Pt will attend wrap-up group this shift (01/14/232299) Possible barriers to meeting goal(s)/advancing plan of care: Poor judgement Stability of the patient: Moderately stable - low risk of patient condition declining or worsening Summary regarding today's goal(s): Met: Attended Recommendations: Continue encouraging groups * Care Plan - Cinthia Gibson RN - 01/14/2023 6:28 AM EDT Clinical Goal(s): Pt will attend wrap-up this shift (01/13/232035) Possible barriers to meeting goal(s)/advancing plan of care: Poor judgement Stability of the patient: Moderately stable - low risk of patient condition declining or worsening Summary regarding today's goal(s): Met: Attended Recommendations: Continue encouraging groups * Care Plan - Cinthia Gibson RN - 01/13/2023 5:02 AM EDT Clinical Goal(s): Pt will attend wrap-up group this shift (01/12/23 2100) Possible barriers to meeting goal(s)/advancing plan of care: Poor judgement Stability of the patient: Moderately stable - low risk of patient condition declining or worsening Summary regarding today's goal(s): Met: Attended Recommendations: Continue to encourage groups * Ancillary Progress Note - Denis Paredes MS - 01/12/2023 5:34 PM EDT PSYCHIATRY GROUP THERAPY NOTE INPATIENT PSYCHIATRY [facility] [address] Name: Gil Irby Location: [facility] [id number] Date: 01/12/2023 Time: 5:34 PM THERAPEUTIC GROUP ACTIVITIES: Music Therapy: All selected a song to share and simply just to listen to, that was rhythmically upbeat to increase motivation and energy. Immediately, followed by Check In: Identify how they are feeling in the moment with the use of an emotion chart. Report if they accomplished their goal yesterday, and what goal will they work on today and the weekend. Patient Education: Building a routine for well-being. Reviewed handouts with patients. Patients participation added to the review. Reminiscing:Activity used to encourage thoughts of past, and peers selecting their favorite memory at the end. COMMENTS: Gil attended the morning groups. He selected an up beat song, but wasn't certain if it was good for others, but he knew it motivated him. He expressed feeling optimistic, because his insurance papers were faxed to the rehab. He also expressed that this is the first time he has been this much looking forward to beginning a journey of being sober. He knows it will be difficult with his and daughter being out. He didn't have a goal from yesterday, and did not make one in group today ,due tofeeling he was having a low sugar, and needed to leave. He was very active in the discussion for the second group. He gave examples of combinations of food to eat at each meal. He also expressed thathe hopes to get an insulin pump, because of the changes that will occur after discharge from the hospital relating to food and his insulin needs. He gives good feedback to his peers also. * Care Plan - Alix Daniel RN - 01/12/2023 12:35 AM EDT Clinical Goal(s): Pt will attend wrap up (01/11/23 1900) Possible barriers to meeting goal(s)/advancing plan of care: None Stability of the patient: Moderately unstable - medium risk of patient condition declining or worsening Summary regarding today's goal(s): Met: Pt participated in wrap up Recommendations: Continue plan of care * Ancillary Progress Note - Denis Paredes MS - 01/11/2023 4:30 PM EDT PSYCHIATRY GROUP THERAPY NOTE INPATIENT PSYCHIATRY [facility] [address] Name: Gil Irby Location: [facility] [id number] Date: 01/11/2023 Time: 4:31 PM THERAPEUTIC GROUP ACTIVITIES: Check In: Music Therapy- Listening to an upbeat song to increase motivation and energy. Identify how they are feeling in the moment with an emotion chart. Did they accomplish yesterday's goals, and what is their goal for today. Finally some time spent on a question and answer activity. Patient Education: Podcast: Healthcare Bluebook: "Self Love is the glue that puts us back together, by Shocka". Accompaniedby 2 handouts on self love. Recreation Therapy: to increase movement with music and memory. COMMENTS: Gil did not attend any groups. * Care Plan - Alix Daniel RN - 01/11/2023 12:20 AM EDT Clinical Goal(s): Pt will attend wrap (01/10/23 1900) Possible barriers to meeting goal(s)/advancing plan of care: None Stability of the patient: Moderately unstable - medium risk of patient condition declining or worsening Summary regarding today's goal(s): Met: Pt participated in wrap up Recommendations: Continue plan of care * Ancillary Progress Note - Denis Paredes MS - 01/10/2023 6:04 PM EDT PSYCHIATRY GROUP THERAPY NOTE INPATIENT PSYCHIATRY [facility] [address] Name: Gil Irby Location: [facility] [id number] Date: 01/10/2023 Time: 6:04 PM THERAPEUTIC GROUP ACTIVITIES: Check In: Music Therapy: Listen to a song, suggested by a patient. Identify how they are feeling inthe moment by using an emotion chart. Did they accomplish yesterday's goal, and what is their goal for today. Patient Education: The benefits of positive self - talk. Coping Skills: Choices to practice: Listening to music, making bracelets with beads or braided, and socialization. COMMENTS: Gil attended the majority of the morning groups. He does give feedback well to his peers. He liked the song he heard this morning, and like the idea to hear a song every morning. He expressed feeling confused, because of a situation with his . He was basically talking in general terms, but agreed he needs to do what is best for him. Therapist even suggested a pro and con list. He accomplished his goal yesterday, and today his goal is to talk to his . He wanted a way to measure his goal , and decided he'd like a checklist. He wants to document how often they talk. In the second group, he stated he would begin working on increasing his self esteem, and say this positive affirmation:All my problems have solutions. At time he appears distressed. * Care Plan - Erinn Gomez RN - 01/10/2023 3:32 AM EDT Clinical Goal(s): Pt will attend wrap-up this shift (01/09/23 1900) Possible barriers to meeting goal(s)/advancing plan of care: poor judgement Stability of the patient: Moderately stable - low risk of patient condition declining or worsening Summary regarding today's goal(s): Met: attended wrap-up Recommendations: will encourage group participation * Ancillary Progress Note - Denis Paredes MS - 01/09/2023 5:07 PM EDT PSYCHIATRY GROUP THERAPY NOTE INPATIENT PSYCHIATRY [facility] [address] Name: Gil Irby Location: [facility] [id number] Date: 01/09/2023 Time: 5:07 PM THERAPEUTIC GROUP ACTIVITIES: Check In: Began with music therapy. Purpose: Playing the song, The Heat is On, by Ciro Ramsey. Song was to increase motivation and energy. Indicate how they are feeling in the moment with the use of an emotion chart, and explain why. Did they accomplish their goal yesterday, and what is their goal for today. Patient Education: Podcast: Achieve Your Goals by Dr. Partha Mcguire. Relaxation: With music and Guided meditation called, [place] -Kindness Meditation for Beginners. COMMENTS: Gil attended the majority of the morning groups. He was not present for the song, because he needed his bandages re wrapped. He did return and report feeling optimistic, because he is still wantingto go to rehab. He did not have a goal yesterday, but today his goal is to talk more with Halina about his discharge to rehab. In the second group, he was influenced by a peer, and did not enjoy the podcast. At times, he had his head down. He did not attend the last group. * Care Plan - Thalia Odell RN - 01/09/2023 6:30 AM EDT Clinical Goal(s): Pt will attend wrap-up group this shift (01/08/23 2200) Possible barriers to meeting goal(s)/advancing plan of care: Poor judgement Stability of the patient: Moderately unstable - medium risk of patient condition declining or worsening Summary regarding today's goal(s): Met: Pt attended wrap up group Recommendations: Pt attended wrap-up group earlier this shift and participated. * Ancillary Progress Note - Denis Paredes MS - 01/08/2023 3:13 PM EDT PSYCHIATRY GROUP THERAPY NOTE INPATIENT PSYCHIATRY [facility] [address] Name: Gil Irby Location: [facility] [id number] Date: 01/08/2023 Time: 3:13 PM THERAPEUTIC GROUP ACTIVITIES: Check In: Random readings from the book, I Believe In You. (Encouraging book with [employer], collection.) Some discussion and processing. Identify how they feel in the moment with an emotionchart. Did they accomplish their goal over the weekend, and what is their goal today. Patient Education: Podcast : How to stay calm in every situation by Karly. Also, What to do if your inner voice is cruel by Lenin Rivera. COMMENTS: Gil attended the morning groups. He was anxious, but succeeded in reading a reading from the book. But, had no eye contact. He feels optimistic since he has spoken to case management abut rehab. Aixa spoke about some of his zeferino concerns. Overall, his interest is to move on and take care of his recovery and health. In the second group, the most beneficial podcast was the one that pertained to anger. However, he was interested in the book for the second one as well. * Ancillary Progress Note - Alejandra Alegre RDN - 01/08/2023 12:20 PM EDT CLINICAL NUTRITION CONSULT/PROGRESS NOTE [facility] [address] Name: Gil Irby Location: [facility] [id number] Date: 01/08/2023 Time: 3:06 PM How patient was identified (select 2): date and Name Discussed in interdisciplinary rounds: No Gil Irby is a 37 year old male being seen for follow-up Primary Diagnosis: Patient is a 37 year old male admitted with depression Other pertinent information: Patient has been eating 100% of his meals. He does not like the super milk, so will discontinue. He did ask for regular whole milk and yogurt at each meal, will provide. No weight since admitted, one was ordered. He is doing much better with his blood sugars though he had a 35 this AM that he felt. His insulin was adjusted this AM. Denies N/V. He has been having diarrhea. NUTRITION ASSESSMENT: Past medical/surgical history and medications reviewed. Food/Nutrition-Related History Nutrition Support: Diet: Carbohydrate Counting Previously followed diet: carbohydrate counting Food Allergies/Intolerances: none Adult Energy Intake: No significant decrease Percentage of meal intake: Greater than 75% Oral Nutrition Supplement (ONS): Super Milk, Whole (1 cup provides 170 calories, 13 grams protein, 13 grams carbohydrate) TID Pertinent medications/vitamins/minerals/supplements: novolog, lantus, culturelle. Levoxyl, imodium,methadone Pertinent Biochemical Data: Latest Reference Range & Units 01/07/23 19:23 01/08/23 02:31 01/08/23 06:55 01/08/23 08:02 01/08/23 11:55 Glucose Meter 70 - 120 mg/dL 202 (H) 147 (H) 35 (LL) 224 (H) 260 (H) (LL): Data is critically low (H): Data is abnormally high Insulin was adjusted Nutrition-Focused Physical Findings: Appearance: Thin Respiratory support: Nasal/Oral: No issues identified Digestive: Appetite good Last Bowel Movement: 01/08/23 (01/08/23 0600) Cognition: Awake, alert and Oriented Skin: Chronic pinky wounds (h/o osteomyelitis) Enteral access: none Nutrition Focused Physical Exam: NFPE completed on 01/08/23 Subcutaneous Fat Loss: Orbital fat pads: Moderate Buccal fat: Moderate Tricep: Severe Muscle Loss: Temples: Moderate Clavicles: Severe Shoulders: Severe Scapula: Severe Interosseous: Moderate Quadriceps: Severe Calves: Severe Edema Location: Lower extremities;Both (12/29/22 0830) Anthropometrics Measurements Admission weight: 45.1 kg Weight: 45.1 kg (99 lb 6.8 oz) (12/28/22 0700) Usual Body Weight: 57 kg Wickliffe weight: 61 kg Wickliffe Weight Based on BMI: 21.7 Interpretation of Weight Change Prior to Admission: 20% weight loss in 1 year (Moderate) Weight Changes Since Admission: No new wt to assess Nutrition Prescription: Energy needs: 25-30 Kcal/kg Kcal/day: 9540-8568 Based on Wickliffe weight Protein needs: 1.2-1.3 gm/kg Protein: 73-79 grams Based on Wickliffe weight Fluid needs: 35 ml/kg Fluid: 2135 ml/day Based on Wickliffe weight Malnutrition: Malnutrition Present: Yes (12/29/22 155) Adult Malnutrition Classification: Severe (12/29/22 155) Malnutrition Characteristics: Fat loss;Muscle loss;Weight loss (12/29/22 1555) Malnutrition Care Plan: Patient meets ASPEN/AND criteria for severe malnutrition. Currently able to meet 100% estimated nutrition requirements, consuming 100% of meals and 100% of oral nutrition supplements. Enteral and parenteral nutrition are contraindicated at this time as patient's oral intake is meeting their estimated nutrition needs. Clinical nutrition to follow for sustained adequate oral intake and adjust malnutrition care plan accordingly. NUTRITION DIAGNOSIS: Malnutrition severe related to social or environmental circumstances as evidenced by 20% weight loss x 1 year, severe muscle loss, and moderate to severe fat loss. Underweight related to social or environmental circumstances as evidenced by BMI of 16. Goals: Patient to continue to consume greater than 75 % of daily meals and 75% of daily supplements NUTRITION INTERVENTION/PLAN: Orders: Oral nutrition supplement discontinued Super Milk, Whole (1 cup provides 170 calories, 13 grams protein, 13 grams carbohydrate) TID Continue current care plan Clinical Nutrition Recommendations: Diet: Continue current nutrition plan NUTRITION MONITORING AND EVALUATION: Nursing documentation flowsheets for percent meal intake Lab values warranting change with MNT Weight for trends Plan follow-up: Will follow and adjust nutrition plan of care as medical condition requires. Please contact for change(s) in patient condition requiring earlier intervention. Alejandra Alegre RDN, DEVAN HUNTER Clinical Dietitian Phone [phone] [employer] * Care Plan - Alix Daniel RN - 01/08/2023 12:07 AM EDT Clinical Goal(s): Pt will not have an anger outburst this shift (01/07/231899) Possible barriers to meeting goal(s)/advancing plan of care: None Stability of the patient: Moderately unstable - medium risk of patient condition declining or worsening Summary regarding today's goal(s): Met: Pt did not have any anger outbursts this shift Recommendations: Continue plan of care * Progress Notes - Non-Billable - Jordy Chowdhury DO - 01/07/2023 11:56 AM EDT Reviewed patient's record in EMR Reviewed glucoses, significantly improved from last week. Continue current insulin dosing We will continue to review patient EMR, please call if there are other acute concerns * Care Plan - Alix Daniel RN - 01/07/2023 4:58 AM EDT Clinical Goal(s): Pt will verablize adequate sleep (01/06/231899) Possible barriers to meeting goal(s)/advancing plan of care: None Stability of the patient: Moderately unstable - medium risk of patient condition declining or worsening Summary regarding today's goal(s): Not Met: Pt was awake on and off throughout the night, and was incontinent of stool Recommendations: Continue plan of care * Care Plan - Alix Daniel RN - 01/06/2023 5:04 AM EDT Clinical Goal(s): Pt will verablize adequate sleep this shift (01/05/23 1900) Possible barriers to meeting goal(s)/advancing plan of care: None Stability of the patient: Moderately unstable - medium risk of patient condition declining or worsening Summary regarding today's goal(s): Not Met: Pt woke up and had an accident, pt was tearful and did not sleep well Recommendations: Continue plan of care * Ancillary Progress Note - Denis Paredes MS - 01/05/2023 4:14 PM EDT PSYCHIATRY GROUP THERAPY NOTE INPATIENT PSYCHIATRY [facility] [address] Name: Gil Irby Location: [facility] [id number] Date: 01/05/2023 Time: 4:14 PM THERAPEUTIC GROUP ACTIVITIES: Check In: Patient Education: Topic: Fear. Therapist gave a hand out with ways to fight fear. Therapist then asked which one would they begin to practice first. Then, therapist asked how they were feeling in the moment, with an emotion chart and why. They also reported if they accomplished their goal from yesterday, and what is the goal for today, plus the weekend. Patient Education. Podcast on Mus ic and Your Brain by Partha Mcguire. Reminiscing: Activity. 3 different words inspire a memory to share, and at the end select the favorite one. COMMENTS: Gil attended about half of the last group on memories. He left before sharing what was his favorite memory. And he did not say why he left. * Care Plan - Cinthia Gibson RN - 01/04/2023 8:29 PM EDT Clinical Goal(s): Pt will attend wrap-up group this shift (01/04/231999) Possible barriers to meeting goal(s)/advancing plan of care: Poor judgement Stability of the patient: Moderately stable - low risk of patient condition declining or worsening Summary regarding today's goal(s): Met: Attended wrap-up group Recommendations: Continue to encourage group participation * Ancillary Progress Note - Denis Paredes MS - 01/04/2023 5:42 PM EDT PSYCHIATRY GROUP THERAPY NOTE INPATIENT PSYCHIATRY [facility] [address] Name: Gil Irby Location: [facility] [id number] Date: 01/04/2023 Time: 5:42 PM THERAPEUTIC GROUP ACTIVITIES: Check In: Identify how they are feeling in the moment with an emotion chart Did they accomplish their goal from yesterday, and what is their goal for today. Patient Education: Partial podcast by Ed Mcguire on Music and Your Brain. Movement with Music: Balloon Volleyball and memory.activity. COMMENTS: Gil attended the majority of all groups. He was participating actively and appropriately all day.In the first group, he said he was feeling happy initially, but tone and facial expression didn't exactly match. As he looked again he said he is hopeful. He mentions again that he has the social anxiety especially around 8 to 10 people. He gave eye contact, but only with therapist. He commented itis easier to talk one on one, but he got though this! His goal for today is to feel less frustratedwith his high blood sugars. So, he agreed it's what I eat, and what exercise I do. So, he agreed towalk at least one time with 2 other peers or alone in the chow. In was very interested in the second group. He was aware therapist has said a few things that the man was talking about in more complicated ways. He was also active in the movement activity, and remembered at least one song title. * Care Plan - Cinthia Gibson RN - 01/04/2023 12:26 AM EDT Clinical Goal(s): Pt will attend wrap-up group this shift (01/03/231999) Possible barriers to meeting goal(s)/advancing plan of care: Poor judgement Stability of the patient: Moderately stable - low risk of patient condition declining or worsening Summary regarding today's goal(s): Met: Attended wrap-up group Recommendations: Continue to encourage group participation * Inpatient Ask-A-Doc - Deloris Paul DO - 01/03/2023 11:26 PM EDT Images from the original note were not included. ASK-A-DOC Inpatient Note [facility] [address] Name: Gil Irby Location: [facility] [id number] Date: 01/03/2023 Time: 11:26 PM Date of Response: 01/03/2023 My Question for the Specialist: Poorly controlled type 1 DM- please eval and treat for improved glucose control regimen Assessment: 37M PMhx: DM1 ADHD, depression Admitted td IPU at 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 Hew was referred to MTM but discharged from services due to lack of response. Current inpt Rx: Lantus 20 units <-- increased dose from 12 this evening Novolog 2 units qAC <-- decreased from 4 units baseline Novolog qAC 1:50 > 150 Prior to today, BG was 300s: Recommendations: Please consider the following: -Preferable to gradually increase insulin doses, especially with low body weight. -While inpatient, would use Novolog ICR -Start Novolog ICR 1:18 with meals. Continue current NOvolog SS. Would avoid any further Novolog boluses tonight to reduce risk of recurrent hypoglycemia from insulin stacking. Trend BG and check a 2am BG as well. No orders entered. 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 7A-5/A Date: 01/03/2023 Time: 6:32 PM THERAPEUTIC GROUP ACTIVITIES: Check In: Identify how they were feeling in the moment by using an emotion chart, and explain why. Did they accomplish their goal yesterday, and what is their goal for today. Patient Education: Self Compassion. Therapist reviewed a packet of handouts, and asked them which method they would considerto begin practicing first. Creative Expression: Designing folders for their handouts. COMMENTS: Gil attended the last group today and completed a folder for his youngest daughter. He liked the music, he socialized and interacted well with all. He even talked to therapist about his physical health, mostly about his diabetes, possible causes and difficulties. He helped to clean up as well. * Ancillary Progress Note - Maribell Damon RDN - 01/03/2023 9:25 AM EDT CLINICAL NUTRITION CONSULT/PROGRESS NOTE [address] [address] Name: Gil Irby Location: [facility] 7A-5/A Date: 01/03/2023 Time: 9:25 AM How patient was identified (select 2): date and Name Discussed in interdisciplinary rounds: Anna Gil Irby is a 37 year old male being seen for adjustment in nutritional care and follow-up Primary Diagnosis: Depression Other pertinent information: In to see patient today to discuss diet and supplements. Patient frustrated with his new diet order (the consistent carb diet) and did not receive his protein this AM with breakfast. Patient also tells me he does not enjoy the oral nutrition supplements. Worked with patient, and adjusted diet and supplements. Encouraged pt to continue increasing PO intakes as able. NUTRITION ASSESSMENT: Past medical/surgical history and medications reviewed. Food/Nutrition-Related History Diet: 5 Choices (75 gm) Consistent Carbohydrate Previously followed diet: Adult carbohydrate counting Food Allergies/Intolerances: NKFA Adult Energy Intake: No significant decrease - since admission Percentage of meal intake: Greater than 75% Oral Nutrition Supplement (ONS): Boost Glucose Control (1 cup provides 190 calories, 16 grams protein, 16 grams carbohydrate) TID Liquacel (1 oz, 100 calories, 16 grams protein, 20 mg phosphorus, 10 mg potassium) BID Pertinent medications/vitamins/minerals/supplements: Lantus, novolog Pertinent Biochemical Data: Latest Reference Range & Units 01/01/23 20:20 01/02/23 07:33 01/02/23 11:40 01/02/23 16:57 01/02/23 20:48 01/03/23 07:16 Glucose Meter 70 - 120 mg/dL 249 (H) 313 (H) 333 (H) 327 (H) 308 (H) 312 (H) (H): Data is abnormally high Patient's insulin being adjusted today. Nutrition-Focused Physical Findings: Appearance: Cachectic and Thin Respiratory support: Nasal/Oral: No issues identified Digestive: Appetite good Last Bowel Movement: 01/02/23 (01/03/23 0600) Cognition: Awake, alert and Oriented Skin: Chronic pinky wounds (h/o osteomyelitis) Nutrition Focused Physical Exam: NFPE completed on 12/29/22 Subcutaneous Fat Loss: Orbital fat pads: Moderate Buccal fat: Moderate Tricep: Severe Muscle Loss: Temples: Moderate Clavicles: Severe Shoulders: Severe Scapula: Severe Interosseous: Moderate Quadriceps: Severe Calves: Severe Edema Location: Lower extremities;Both (12/29/22 0830) Anthropometrics Measurements Height: 167 cm (5' 6") Admission weight: 45.1 kg Weight: 45.1 kg (99 lb 6.8 oz) (12/28/22 0700) Body mass index is 16.05 kg/m. Usual Body Weight: 57 kg Wickliffe weight: 61 kg Wick[place]fe Weight Based on BMI: 21.7 Interpretation of Weight Change Prior to Admission: 20% weight loss in 1 year (Moderate) Weight Changes Since Admission: No new wt to assess Nutrition Prescription: Energy needs: 25-30 Kcal/kg Kcal/day: 4724-5594 Based on Wick[place]fe weight Protein needs: 1.2-1.3 gm/kg Protein: 73-79 grams Based on Wickliffe weight Fluid needs: 35 ml/kg Fluid: 2135 ml/day Based on Wickliffe weight Malnutrition: Malnutrition Present: Yes (12/29/22 155) Adult Malnutrition Classification: Severe (12/29/22 155) Malnutrition Characteristics: Fat loss;Muscle loss;Weight loss (12/29/22 155) Malnutrition Care Plan: Patient meets ASPEN/AND criteria for severe malnutrition. Currently able to meet 75% estimated nutrition requirements, consuming >75% of meals and 50% of oral nutrition supplements. Enteral and parenteral nutrition are contraindicated at this time as patient's oral intake is meeting their estimated nutrition needs. Clinical nutrition to follow for sustained adequate oral intake and adjust malnutrition care plan accordingly. Dietitian Action: Diet change ordered;PFI Acquisition message sent to pharmacy regarding Vitamin K content of supplement;Oral nutritional supplement ordered/adjusted (01/03/23 1020) NUTRITION DIAGNOSIS: Same as previous: Malnutrition severe related to social or environmental circumstances as evidenced by 20% weight loss x 1 year, severe muscle loss, and moderate to severe fat loss. Underweight related to social or environmental circumstances as evidenced by BMI of 16. Goals: Patient to consume greater than 75 % of daily meals and 75% of daily supplements within 5 days. Previous diagnosis/Goals: Patient is doing well with meal intakes, does not like ordered supplements NUTRITION INTERVENTION/PLAN: Orders: Oral nutrition supplement adjusted Super Milk, Whole (1 cup provides 170 calories, 13 gramsprotein, 13 grams carbohydrate) TID Clinical Nutrition Recommendations: Diet: Continue current nutrition plan NUTRITION MONITORING AND EVALUATION: Nursing documentation flowsheets for percent meal intake Tolerance of supplement per patient/nursing report Lab values warranting change with MNT Weight for trends Plan follow-up: Will follow and adjust nutrition plan of care as medical condition requires. Please contact for change(s) in patient condition requiring earlier intervention. Maribell Damon MS, RDN, LDN Clinical Dietitian [facility] Available via [place] Text [phone] * Care Plan - Thalia Odell RN - 01/03/2023 6:16 AM EDT Clinical Goal(s): Pt will not have any anger outbursts this shift (01/02/231999) Possible barriers to meeting goal(s)/advancing plan of care: Poor judgement Stability of the patient: Moderately unstable - medium risk of patient condition declining or worsening Summary regarding today's goal(s): Not Met: Pt became angry at change of shift when excess snacks were taken out of pt's bin in his room Recommendations: Continue with current plan of care. * Ancillary Progress Note - Denis Paredes MS - 01/02/2023 3:57 PM EDT PSYCHIATRY GROUP THERAPY NOTE INPATIENT PSYCHIATRY [facility] [address] Name: Gil Irby Location: [facility] [id number] Date: 01/02/2023 Time: 3:57 PM THERAPEUTIC GROUP ACTIVITIES: Check In: Identify how they are feeling in the moment with using an emotion chart.Did they accomplish yesterday's goal, and what is their goal for today. Patient Education: Depression. Handed out oneworksheet that were coping skills. Music Therapy:Listen and connect to a line in the song Depression by Joseph. COMMENTS: Gil attended the morning groups. He identified feeling lonely, because he has had no visitors or phone calls, since he is here. He agreed he is also sad. This is different, because in the past his family has been there for him. He did not attend groups or have a goal yesterday, but today his goalis to call a family member, so he can get more family phone numbers to call them for clothes that he needs. He was supportive and gave good feedback to his peers. In the second group, he connected christina blake. He stated this is what is happening now. He has too much physical pain and mental pain. It evolves around loss of weight, not being employed, and having social anxiety. This all beginning around Covid. He also received handouts. * Ancillary Progress Note - Maribell Damon RDN - 01/02/2023 12:00 PM EDT Discussed diet with GALE Cid - pt has been struggling with diet orders, high BS and has been consistently hungry. Adjusted his diet and added boost glucose control. Will follow up with education as able. Maribell Damon, MS, RDN, LDN Clinical Dietitian [facility] Available via [place] Text [phone] * Care Plan - Erinn Gomez RN - 01/02/2023 3:52 AM EDT Clinical Goal(s): Pt will remain free of falls this shift. (01/01/231999) Possible barriers to meeting goal(s)/advancing plan of care: poor judgment Stability of the patient: Moderately stable - low risk of patient condition declining or worsening Summary regarding today's goal(s): Met: no falls this shift Recommendations: will continue to educate on fall precautions * Ancillary Progress Note - Denis Paredes MS - 01/01/2023 5:02 PM EDT PSYCHIATRY GROUP THERAPY NOTE INPATIENT PSYCHIATRY [facility] [place] [address] Name: Gil Irby Location: [facility] [id number] Date: 01/01/2023 Time: 5:02 PM THERAPEUTIC GROUP ACTIVITIES: Check In: Identify how they're feeling in the moment with the use of an emotion chart. Given explanation of a goal that is attached to the goal sheet. General questions were also asked about goals. Then, what is their goal for today. Patient Education: Assertiveness. Reviewed 2 handouts, and practiced I statements. Relaxation: Therapist played appropriate music and did progressive muscle relaxation. COMMENTS: He did not attend groups today. * David Tejeda - Cinthia Gibson RN - 01/01/2023 5:28 AM EDT Clinical Goal(s): Pt will remain free of falls this shift (12/31/221938) Possible barriers to meeting goal(s)/advancing plan of care: Poor judgement Stability of the patient: Moderately stable - low risk of patient condition declining or worsening Summary regarding today's goal(s): Met: Pt remained free of falls this shift Recommendations: Continue educating on fall precautions * David Tejeda - Cinthia Gibson RN - 12/31/2022 6:29 AM EDT Clinical Goal(s): Pt will attend wrap-up group this shift (12/30/221999) Possible barriers to meeting goal(s)/advancing plan of care: Poor judgement Stability of the patient: Moderately stable - low risk of patient condition declining or worsening Summary regarding today's goal(s): Met: Attended wrap-up Recommendations: Continue to encourage group participation * David Tejeda - Cinthia Gibson RN - 12/30/2022 6:08 AM EDT Clinical Goal(s): Pt will attend wrap-up group this shift (12/29/221955) Possible barriers to meeting goal(s)/advancing plan of care: Poor judgement Stability of the patient: Moderately stable - low risk of patient condition declining or worsening Summary regarding today's goal(s): Not Met: Pt did not attend wrap-up Recommendations: Encourage group participation * Ancillary Progress Note - Cari Palmer, Tear Down Man - 12/29/2022 9:26 AM EDT CARE MANAGEMENT - ADULT INITIAL SCREENING [address] [address] Name: Gil Irby Location: [facility] [id number] Date: 12/29/2022 Time: 9:26 AM Patient Class: Inpatient (12/29/22918) Discussed patient with the interdisciplinary care team. This Community Worker performed a chart review and met with pt at bedside to complete admission screen and assessed needs for transition planning. The family day carer role and services were explained and emotional support was provided. 30 Day Readmission Screening 30 Day Readmission Readmission within 30 days?: Yes, the previous hospital stay was at THIS [facility] (12/29/229[address]) Chief Complaint: Weakness, Generalized Prior Living Arrangements What was your living situation prior to admission/observation?: Homeless (12/29/22918) Do you have any children, pets, or other dependents that you are currently caring for?: No (12/29/22918) Living Quarters: Unknown (12/29/22918) How many stories is the dwelling?: N/A (12/29/22918) Location of bathroom(s): Other - Comment (Homeless) (12/29/22918) Do you have serious difficulty walking or climbing stairs? (5 years old or older): No (12/29/22918) History of falling: Yes (12/28/221999) Prior Level of Functioning Describe the patient's ability prior to admission/observation to perform ADLs: Performs independently (12/29/22918) Requires assistance with: Bathing;Eating;Grooming;Toileting;Dressing (12/27/221848) Describe the patient's mobility status prior to admission: Patient ambulates independently (12/29/22918) Patient uses assistive device: Yes (12/29/22918) If yes, choose:: Cane (12/29/22918) Caregiver Information Patient Contacts Name Relation Home Work Mobile Calli Irby Other - (no specific identity) [phone] SHANNON ZHOU Mother [phone] Risk Stratification/Psychosocial/Care Gaps Risk Stratification Medical and Behavioral Health Concerns Identified: Substance Abuse (12/29/22918) Psycho Social/Care Gaps concerns identified upon admission:: N/A (12/29/22918) Accessed [employer] to connect patients to social care resources: No (12/29/22918) OBRA or OPTIONS needed for placement: No (12/29/22918) Readmission Risk Score: 32 (12/29/22918) AM-PAC Score With Stairs : 23 (12/28/22 09) Comments: Pt admitted for dehydration. Pt was recently admitted to [facility] on 12/11/22. PMH Diabetes, Hypothyroid, Depression, Anxiety, Bi-polar disorder, ADHD, Malnutrition of moderate degree. Pt states that he is currently homeless. Pt is interested in a 7a stay to address mental health prior to going to drug and alcohol in patient services for addiction to meth. Pt states that he was using meth every day with the last time being 2 days prior to admission to [facility]. Preferred method is smoking it. Pt completes ADL's independently. Pt does have a quad cane that he uses to assist with ambulation. Pt does not have reliable transportation and states that [facility] will not transport him. [facility] application was completed last admission. Consult-Psychiatry, Wound, CM [employer] [place] HEALTH PLAN Prior to Admission Services Services Prior to Admission PREVENTIVE MAINTENANCE COORDINATOR Services (Services received within the last 30 days with exception, Psych within last two years): N/A (12/29/22918) [place] Dept. of Aging (PDA) Waiver Program: N/A (12/29/22918) PREVENTIVE MAINTENANCE COORDINATOR Transportation (Services received within the last 30 days): N/A (12/29/22918) Outpatient Community Worker: no, not applicable Patient/Family Expectations: To go to for mental health, and then to inpatient D&A rehab. Anticipated Disposition Plan & Post Acute Needs Anticipated Plan Anticipated D/C disposition per abbreviated screening: Post hospitalization needs identified, continue to monitor for transition planning (12/29/22918) Anticipated Post-Acute Care needs identified: Rehab (12/29/22918) For further screening information, please refer to the Care Management flow document. * Hospital Course - Rafael Rao MD - 12/28/2022 6:02 PM EDT {Hospital Course documentation can easily be pulled into the Discharge Summary by documenting here and using the smartlink in the Discharge Summary template:02461} Gil Irby is a 37 year old male who presents to the ED for evaluation of Weakness, Generalized. The patient was seen at 12/27/22 1222. In ED, basic labs, testing, and imaging were completed. Work up in ED shows Glucose 592, BP as low as 85/68. X-ray of hand showed nonspecific erosive changes about the 5th PIP joint, which may reflect acute versus chronic infectious/inflammatory arthropathy.In ED, patient was started on IV fluids, Zosyn, and Vancomycin for empiric antibiotic coverage of underlying osteomyelitis. Patient confirmed to be enrolled in Methadone clinic (hx of drug abuse). Patient admitted to floors. Wound care consult placed for chronic wound. Patient encouraged to follow-up with hand surgeon as has been recommended several times in the past. Augmentin initiated as antibiotic for empiric coverage. Midodrine continued for orthostatic hypotension. Case management consulted. Insulin sliding scale/Lantus initiated for diabetic management. Patient with suicidal ideation and due to previous recent attempt at suicide, placed on a 1:1. Patient seen on floors on 12/28/22, patient clinically improving. Psychiatry consult placed and recommendation made for inpatient psychiatric treatment. * Diagnostic Clarification - Marlon Banda MD - 12/28/2022 5:26 PM EDT The patient has a diagnosis of Methamphetamine dependence. * Medical Necessity - Kirby Carmona RN - 12/28/2022 12:13 PM EDT AdmissionCare Guideline: Dehydration - INPT, Inpatient Based on the indications selected for the patient, the bed status of Admit to Inpatient was determined to be MET The following indications were selected as present at the time of evaluation of the patient: Hemodynamic instability, as indicated by 1 or more of the following: - Vital sign abnormality not readily corrected by appropriate treatment, as indicated by 1 or more ofthe following: - Hypotension that persists despite appropriate treatment (eg, volume repletion, treatment of underlying cause) - Orthostatic hypotension that persists despite appropriate treatment (eg, volume repletion) - Additional Information: Orthostaic Hypotension despite IVF: Sitting 87/57, standing 76/40. BP 10/28:86/54, 89/59, 88/68, IVF @ 125 AdmissionCare documentation entered by: Kirby Carmona [facility], 26th edition, Copyright 2021 [facility] [employer] All Rights Reserved. [id number]:13:04-04:00 Solely for purpose of utilization review and payment; not a diagnostic tool * Ancillary Progress Note - Halina Stewart BS - 12/28/2022 12:00 PM EDT FULL SOCIAL HISTORY PROGRESS NOTE - PSYCHIATRY [facility] [address] Name: Gil Irby Location: [facility] [id number] Date: 12/28/2022 Time: 12:00 PM DEMOGRAPHIC INFORMATION: Address: (mother's home) [address] [place] [address] Most recent address: [address] [place] [address] (mobile) [phone](mobile) County of Residence: [place] SOURCE OF INFORMATION: patient and medical record PRESENTING PROBLEM: Gil is a 37 year old, white, male who was admitted to the inpatientpsychiatric unit for evaluation and treatment of change in mental status as evidenced by anxiety, depression and suicidal thoughts. He first presented to the hospital with complaints of dizziness andpassing out episode, was medically cleared after admission to medical and admitted to behavioral health. His current psychosocial stressors include relationship discord, employment issues, substance abuse, housing issues and financial problems. Focus of treatment will be to stabilize mood, develop improved coping skills and explore relationship between ineffective coping and substance abuse. TREATMENT HISTORY: Psychiatric Hospitals: Yes Hospital and Date of Admission: Patient was admitted to inpatient psychiatry at [facility] in 2014. Outpatient Treatment: No current providers Name of Provider: Past history with Hayes Peña, PhD, unknown when and for how long. 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 FAMILY HISTORY: Family members diagnosed with mental illness: yes Relationship: mother Diagnosis: Depression History of family members attempting or committing suicide: no SOCIAL HISTORY: Place of : [place], [place] Number of Siblings: 1/2 sister and 1/2 brother Parents Living: yes Relationship with Parents: Father is supportive but will not allow patient to live with him; motheris an addict and patient does not want to live with her. MARITAL HISTORY: Currently from ; has one daughter, age 19. EDUCATION: high school; grade completed - 10 th grade and completed GED requirements. 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 Currently Unemployed. HISTORY: Service: no LEGAL HISTORY: History of Legal Problems: yes; explain - History of criminal charges for receiving stolen propertyand nonpayment of fines. ABUSE HISTORY: History of Abuse: no; patient denies any history of abuse. SUBSTANCE USE HISTORY: Alcohol: History of rehabs: yes How many? Twice First rehab? Patient did not remember Last rehab? As the age of 23 How many rehabs did you complete? Two Longest period of sobriety: More than 10 years as per patient account Drugs: Patient has a significant past history of stimulants and opiate use with 1st started the ageof 13. His last use was methamphetamine prior to coming in. He was opioids maintenance program for 15 years. Previous abuse of drugs: yes Cannabis: yes, first use as teenager Cocaine: yes, first use as teenages with last use was one year ago PCP (phencyclidine): no LSD (d-Lysergic Acid Diethylamide): no Benzodiazepines: yes, first use in his twenties with last use was couple of months ago Huffing: no Exhibition Organiser/synthetic drugs: no Cough/cold medicines: no Opiates: firs used at age 13 on methadone Heroin yes, first use 15 History of IV Drug Abuse? yes, first use 15 Been to rehab Tobacco: yes; explain - Smokes a pack a day. SOCIAL ACTIVITIES: Hobbies/Interests: Video games, fishing and watching t.[employer]. Pentecostal: Religion MEDICAL HISTORY: Insulin dependent diabetes mellitus, hypothyroidism, neuropathy. CURRENT LIVING SITUATION: Homeless; from . DISCHARGE PLANS: Patient will be referred to outpatient mental health services when able to contract for safety and resume activities of daily living. * Medical Necessity - Derrick Kowalski, Utilization Review Staff - 12/27/2022 5:44 PM EDT AdmissionCare Guideline: Sepsis (and Other Febrile Illness without Focal Infection) - OBS, Observation Based on the indications selected for the patient, the bed status of Admit to Observation was determined to be MET The following indications were selected as present at the time of evaluation of the patient: - Need for clinical observation of response to treatment (eg, parenteral antimicrobial) or until results of diagnostic studies (eg, cultures, fluid analysis) are available or while treatment at lowerlevel of care is arranged Additional Information: singh canales AdmissionCare documentation entered by: Derrick Kowalski [facility], 26th edition, Copyright 2021 [facility], [employer] All Rights Reserved. [id number] Solely for purpose of utilization review and payment; not a diagnostic tool * ED [employer] T[employer] Note - Silvina Chavez RN - 12/27/2022 3:31 PM EDT Assumed pt care. denies needs at this time. documented in this encounter Plan of Treatment Upcoming Encounters Date Type Department Care Team (Late st Contact Info) Description 01/26/2023 11:00 AM EST Office Visit [facility] [address] [phone] [address] Graves MD [address] [address] Scheduled Referrals Name Type Priority Associated Diagnoses Orde r Schedule PHARMACIST MEDS THERAPY MGMT REFERRAL OP Referral Within 3 days (urgent) Uncontrolled other specified diabetes mellitus with hyperglycemia (HCC) Ordered: 01/18/2023 Health Maintenance Due Date Last Done Comments DISCUSS TOBACCO CESSATION (REFER TO [facility] #[id number]) 1985 Hepatitis B (1 of 3 - [...] Procedure Name Priority Date/Time Associated Diagnosis Comments GLUCOSE METER, POINT OF CARE [facility] 01/18/2023 11:57 AM EDT GLUCOSE METER, POINT OF CARE [facility] 01/18/2023 6:45 AM EDT GLUCOSE METER, POINT OF CARE [facility] 01/17/2023 7:54 PM EDT GLUCOSE METER, POINT OF CARE [facility] 01/17/2023 4:15 PM EDT GLUCOSE METER, POINT OF CARE [facility] 01/17/2023 1:12 PM EDT GLUCOSE METER, POINT OF CARE [facility] 01/17/2023 11:51 AM EDT GLUCOSE METER, POINT OF CARE [facility] 01/17/2023 11:20 AM EDT GLUCOSE METER, POINT OF CARE [facility] 01/17/2023 7:21 AM EDT GLUCOSE METER, POINT OF CARE [facility] 01/17/2023 6:35 AM EDT GLUCOSE METER, POINT OF CARE [facility] 01/17/2023 6:04 AM EDT GLUCOSE METER, POINT OF CARE [facility] 01/16/2023 7:51 PM EDT GLUCOSE METER, POINT OF CARE [facility] 01/16/2023 5:00 PM EDT GLUCOSE METER, POINT OF CARE [facility] 01/16/2023 11:40 AM EDT GLUCOSE METER, POINT OF CARE [facility] 01/16/2023 7:57 AM EDT GLUCOSE METER, POINT OF CARE [facility] 01/16/2023 5:53 AM EDT GLUCOSE METER, POINT OF CARE [facility] 01/16/2023 5:22 AM EDT GLUCOSE METER, POINT OF CARE [facility] 01/15/2023 11:43 PM EDT GLUCOSE METER, POINT OF CARE [facility] 01/15/2023 9:54 PM EDT GLUCOSE METER, POINT OF CARE [facility] 01/15/2023 8:28 PM EDT GLUCOSE METER, POINT OF CARE [facility] 01/15/2023 4:43 PM EDT GLUCOSE METER, POINT OF CARE [facility] 01/15/2023 4:13 PM EDT GLUCOSE METER, POINT OF CARE [facility] 01/15/2023 11:15 AM EDT GLUCOSE METER, POINT OF CARE [facility] 01/15/2023 6:46 AM EDT GLUCOSE METER, POINT OF CARE [facility] 01/14/2023 8:01 PM EDT GLUCOSE METER, POINT OF CARE [facility] 01/14/2023 4:56 PM EDT GLUCOSE METER, POINT OF CARE [facility] 01/14/2023 12:03 PM EDT GLUCOSE METER, POINT OF CARE [facility] 01/14/2023 7:20 AM EDT GLUCOSE METER, POINT OF CARE [facility] 01/13/2023 7:56 PM EDT FECAL OCCULT BLOOD, EIA Routine 01/14/20 6:16 PM EDT GLUCOSE METER, POINT OF CARE [facility] 01/13/2023 4:50 PM EDT GLUCOSE METER, POINT OF CARE [facility] 01/13/2023 11:47 AM EDT GLUCOSE METER, POINT OF CARE [facility] 01/13/2023 7:06 AM EDT GASTROINTESTINAL PATHOGEN PANEL, STOOL Routine 01/12/2023 9:09 PM EDT GASTROINTESTINAL PATHOGEN PANEL CULTURE Routine 01/12/2023 9:09 PM EDT GASTROINTESTINAL PATHOGEN PANEL PCR Routine 01/12/2023 9:09 PM EDT CLOSTRIDIUM DIFFICILE, PCR Routine 01/12/2023 9:09 PM EDT FECAL OCCULT BLOOD, EIA Routine 01/13/20 9:09 PM EDT COMPREHENSIVE METABOLIC PANEL Routine 01/12/2023 8:34 PM EDT TYPE AND SCREEN Routine 01/12/2023 8:34 PM EDT PT INR Routine 01/12/2023 8:34 PM EDT CBC Routine 01/12/2023 8:34 PM EDT MAGNESIUM Routine 01/12/2023 8:34 PM EDT GLUCOSE METER, POINT OF CARE [facility] 01/12/2023 7:57 PM EDT GLUCOSE METER, POINT OF CARE [facility] 01/12/2023 4:45 PM EDT GLUCOSE METER, POINT OF CARE [facility] 01/12/2023 12:04 PM EDT GLUCOSE METER, POINT OF CARE [facility] 01/12/2023 10:53 AM EDT GLUCOSE METER, POINT OF CARE [facility] 01/12/2023 7:19 AM EDT GLUCOSE METER, POINT OF CARE [facility] 01/12/2023 2:06 AM EDT GLUCOSE METER, POINT OF CARE [facility] 01/11/2023 8:45 PM EDT GLUCOSE METER, POINT OF CARE [facility] 01/11/2023 4:51 PM EDT GLUCOSE METER, POINT OF CARE [facility] 01/11/2023 12:03 PM EDT GLUCOSE METER, POINT OF CARE [facility] 01/11/2023 7:39 AM EDT GLUCOSE METER, POINT OF CARE [facility] 01/11/2023 2:24 AM EDT GLUCOSE METER, POINT OF CARE [facility] 01/10/2023 8:51 PM EDT GLUCOSE METER, POINT OF CARE [facility] 01/10/2023 7:44 PM EDT GLUCOSE METER, POINT OF CARE [facility] 01/10/2023 4:26 PM EDT GLUCOSE METER, POINT OF CARE [facility] 01/10/2023 11:35 AM EDT GLUCOSE METER, POINT OF CARE [facility] 01/10/2023 7:19 AM EDT GLUCOSE METER, POINT OF CARE [facility] 01/09/2023 7:59 PM EDT GLUCOSE METER, POINT OF CARE [facility] 01/09/2023 4:42 PM EDT GASTROINTESTINAL PATHOGEN PANEL, STOOL Routine 01/09/2023 1:49 PM EDT GASTROINTESTINAL PATHOGEN PANEL CULTURE Routine 01/09/2023 1:49 PM EDT GASTROINTESTINAL PATHOGEN PANEL PCR Routine 01/09/2023 1:49 PM EDT INFLUENZA A/B RSV SARS-COV2,PCR STAT 01/09/2023 1:49 PM EDT GLUCOSE METER, POINT OF CARE [facility] 01/09/2023 11:33 AM EDT GLUCOSE METER, POINT OF CARE [facility] 01/09/2023 6:53 AM EDT GLUCOSE METER, POINT OF CARE [facility] 01/09/2023 6:25 AM EDT BASIC METABOLIC PANEL Routine 01/09/2023 6:21 AM EDT CBC Routine 01/09/2023 6:21 AM EDT GLUCOSE METER, POINT OF CARE [facility] 01/09/2023 2:03 AM EDT GLUCOSE METER, POINT OF CARE [facility] 01/08/2023 7:13 PM EDT GLUCOSE METER, POINT OF CARE [facility] 01/08/2023 4:55 PM EDT GLUCOSE METER, POINT OF CARE [facility] 01/08/2023 11:55 AM EDT GLUCOSE METER, POINT OF CARE [facility] 01/08/2023 8:02 AM EDT GLUCOSE METER, POINT OF CARE [facility] 01/08/2023 6:55 AM EDT GLUCOSE METER, POINT OF CARE [facility] 01/08/2023 2:31 AM EDT GLUCOSE METER, POINT OF CARE [facility] 01/07/2023 7:23 PM EDT GLUCOSE METER, POINT OF CARE [facility] 01/07/2023 4:22 PM EDT GLUCOSE METER, POINT OF CARE [facility] 01/07/2023 11:17 AM EDT GLUCOSE METER, POINT OF CARE [facility] 01/07/2023 7:18 AM EDT GLUCOSE METER, POINT OF CARE [facility] 01/06/2023 7:29 PM EDT GLUCOSE METER, POINT OF CARE [facility] 01/06/2023 4:29 PM EDT GLUCOSE METER, POINT OF CARE [facility] 01/06/2023 11:29 AM EDT GLUCOSE METER, POINT OF CARE [facility] 01/06/2023 7:19 AM EDT GLUCOSE METER, POINT OF CARE [facility] 01/06/2023 3:33 AM EDT GLUCOSE METER, POINT OF CARE [facility] 01/05/2023 8:15 PM EDT GLUCOSE METER, POINT OF CARE [facility] 01/05/2023 4:25 PM EDT GLUCOSE METER, POINT OF CARE [facility] 01/05/2023 2:55 PM EDT GLUCOSE METER, POINT OF CARE [facility] 01/05/2023 11:02 AM EDT GLUCOSE METER, POINT OF CARE [facility] 01/05/2023 7:18 AM EDT GLUCOSE METER, POINT OF CARE [facility] 01/05/2023 2:34 AM EDT GLUCOSE METER, POINT OF CARE [facility] 01/04/2023 7:44 PM EDT GLUCOSE METER, POINT OF CARE [facility] 01/04/2023 4:30 PM EDT GLUCOSE METER, POINT OF CARE [facility] 01/04/2023 4:05 PM EDT GLUCOSE METER, POINT OF CARE [facility] 01/04/2023 3:18 PM EDT GLUCOSE METER, POINT OF CARE [facility] 01/04/2023 11:59 AM EDT TSH WITH FREE T4 IF INDICATED Add-on 01/04/2023 9:42 AM EDT BASIC METABOLIC PANEL Routine 01/04/2023 9:42 AM EDT T4, FREE Routine 01/04/2023 9:42 AM EDT GLUCOSE METER, POINT OF CARE [facility] 01/04/2023 9:25 AM EDT GLUCOSE METER, POINT OF CARE [facility] 01/04/2023 7:43 AM EDT GLUCOSE METER, POINT OF CARE [facility] 01/03/2023 11:28 PM EDT GLUCOSE METER, POINT OF CARE [facility] 01/03/2023 10:26 PM EDT GLUCOSE METER, POINT OF CARE [facility] 01/03/2023 9:34 PM EDT GLUCOSE METER, POINT OF CARE [facility] 01/03/2023 8:12 PM EDT GLUCOSE METER, POINT OF CARE [facility] 01/03/2023 4:47 PM EDT GLUCOSE METER, POINT OF CARE [facility] 01/03/2023 4:31 PM EDT GLUCOSE METER, POINT OF CARE [facility] 01/03/2023 12:03 PM EDT GLUCOSE METER, POINT OF CARE [facility] 01/03/2023 7:16 AM EDT GLUCOSE METER, POINT OF CARE [facility] 01/02/2023 8:48 PM EDT GLUCOSE METER, POINT OF CARE [facility] 01/02/2023 4:57 PM EDT GLUCOSE METER, POINT OF CARE [facility] 01/02/2023 11:40 AM EDT GLUCOSE METER, POINT OF CARE [facility] 01/02/2023 7:33 AM EDT CLOSTRIDIUM DIFFICILE, PCR STAT 01/01/2023 10:05 PM EDT GLUCOSE METER, POINT OF CARE [facility] 01/01/2023 8:20 PM EDT GLUCOSE METER, POINT OF CARE [facility] 01/01/2023 4:50 PM EDT GLUCOSE METER, POINT OF CARE [facility] 01/01/2023 11:38 AM EDT GLUCOSE METER, POINT OF CARE [facility] 01/01/2023 7:25 AM EDT GLUCOSE METER, POINT OF CARE [facility] 12/31/2022 8:05 PM EDT GLUCOSE METER, POINT OF CARE [facility] 12/31/2022 4:40 PM EDT GLUCOSE METER, POINT OF CARE [facility] 12/31/2022 11:39 AM EDT GLUCOSE METER, POINT OF CARE [facility] 12/31/2022 7:34 AM EDT GLUCOSE METER, POINT OF CARE [facility] 12/30/2022 8:06 PM EDT GLUCOSE METER, POINT OF CARE [facility] 12/30/2022 4:50 PM EDT GLUCOSE METER, POINT OF CARE [facility] 12/30/2022 11:59 AM EDT GLUCOSE METER, POINT OF CARE [facility] 12/30/2022 7:55 AM EDT GLUCOSE METER, POINT OF CARE [facility] 12/29/2022 8:04 PM EDT GLUCOSE METER, POINT OF CARE [facility] 12/29/2022 4:07 PM EDT INFLUENZA A/B RSV SARS-COV2,PCR STAT 12/29/2022 1:45 PM EDT LIPID PANEL WITH DIRECT LDL IF TG IS HIGH Add-on 12/29/2022 12:05 PM EDT BASIC METABOLIC PANEL Routine 12/29/2022 12:05 PM EDT GLUCOSE METER, POINT OF CARE [facility] 12/29/2022 11:56 AM EDT GLUCOSE METER, POINT OF CARE [facility] 12/29/2022 8:17 AM EDT HEMOGLOBIN A1C Add-on 12/29/2022 5:17 AM EDT BASIC METABOLIC PANEL Routine 12/29/2022 5:17 AM EDT CBC Routine 12/29/2022 5:17 AM EDT GLUCOSE METER, POINT OF CARE [facility] 12/28/2022 9:37 PM EDT GLUCOSE METER, POINT OF CARE [facility] 12/28/2022 4:08 PM EDT GLUCOSE METER, POINT OF CARE [facility] 12/28/2022 12:32 PM EDT GLUCOSE METER, POINT OF CARE [facility] 12/28/2022 12:11 PM EDT GLUCOSE METER, POINT OF CARE [facility] 12/28/2022 11:13 AM EDT GLUCOSE METER, POINT OF CARE [facility] 12/28/2022 7:41 AM EDT HEPATIC FUNCTION PANEL Add-on 4:42 AM EDT BASIC METABOLIC PANEL Routine 12/28/2022 4:42 AM EDT CBC Routine 12/28/2022 4:42 AM EDT GLUCOSE METER, POINT OF CARE [facility] 12/28/2022 3:58 AM EDT GLUCOSE METER, POINT OF CARE [facility] 12/27/2022 9:48 PM EDT GLUCOSE METER, POINT OF CARE [facility] 12/27/2022 2:59 PM EDT URINALYSIS, REFLEX TO MICROSCOPIC STAT 12/27/2022 2:32 PM EDT XR HAND 3 OR MORE VIEWS STAT 12/28/19 1:35 PM EDT CULTURE, BLOOD STAT 12/27/2022 12:49 PM EDT XR CHEST 1 VIEW STAT 12/27/2022 12:46 PM EDT XR HAND 3 OR MORE VIEWS STAT 12/28/19 12:46 PM EDT XR WRIST 3 OR MORE VIEWS STAT 023 12:46 PM EDT LACTATE, WHOLE BLOOD WITH REFLEX IF ABNORMAL STAT 12/27/2022 12:35 PM EDT DIFFERENTIAL, AUTOMATED STAT 12/28/19 12:35 PM EDT TROPONIN T, HIGH SENSITIVITY STAT 12/27/2022 12:35 PM EDT PROCALCITONIN STAT 12/27/2022 12:35 PM EDT BLOOD GAS, VENOUS STAT 12/27/2022 12: 35 PM EDT CRP (INFLAMMATORY MARKER) STAT 12/27/2022 12:35 PM EDT COMPREHENSIVE METABOLIC PANEL STAT 12/27/2022 12:35 PM EDT CBC STAT 12/27/2022 12:35 PM EDT PT INR STAT 12/27/2022 12:35 PM EDT PHOSPHORUS STAT 12/27/2022 12:35 PM EDT CULTURE, BLOOD STAT 12/27/2022 12:35 PM EDT APTT STAT 12/27/2022 12:35 PM EDT CBC STAT 12/27/2022 12:35 PM EDT MAGNESIUM STAT 12/27/2022 12:35 PM EDT EXTRA HOANG TOP Routine 12/27/2022 12:34 PM EDT EXTRA TUBES Routine 12/27/2022 12:34 PM EDT HC ECG TRACING ONLY Routine 12/27/2022 1 2:28 PM EDT GLUCOSE METER, POINT OF CARE [facility] 12/27/2022 12:21 PM EDT documented in this encounter Results * GLUCOSE METER, POINT OF CARE (01/18/2023 11:57 AM EDT) Glucose Meter 87 70 - 120 mg/dL 01/18/2023 12:01 PM EDT [facility] Blood Whole blood specimen / Unknown 01/18/2023 11:57 AM EDT 01/18/2023 12:01 PM EDT Coco Jean MD LAB POINT OF CA RE TEST DOCKED DEVICE UNSOLICITED RESULTS Performing Organization Address [facility] Co de Phone Number [facility] [address] [phone] * (ABNORMAL) GLUCOSE METER, POINT OF CARE (01/18/2023 6:45 AM EDT) Glucose Meter 191(H) 70 - 120 mg/dL 01/18/2023 6:47 AM EDT [facility] Blood Whole blood specimen / Unknown 01/18/2023 6:45 AM EDT 01/18/2023 6:47 AM EDT Coco Jean MD LAB POINT OF CA RE TEST DOCKED DEVICE UNSOLICITED RESULTS Performing Organization Address [facility] de Phone Number [facility] [address] [address] * (ABNORMAL) GLUCOSE METER, POINT OF CARE (01/17/2023 7:54 PM EDT) Glucose Meter 206(H) 70 - 120 mg/dL 01/17/2023 7:56 PM EDT [facility] Blood Whole blood specimen / Unknown 01/17/2023 7:54 PM EDT 01/17/2023 7:56 PM EDT Coco Jean MD LAB POINT OF CA RE TEST DOCKED DEVICE UNSOLICITED RESULTS Performing Organization Address [facility] Phone Number [facility] [address] [address] * (ABNORMAL) GLUCOSE METER, POINT OF CARE (01/17/2023 4:15 PM EDT) Glucose Meter 163(H) 70 - 120 mg/dL 01/17/2023 4:18 PM EDT [facility] Blood Whole blood specimen / Unknown 01/17/2023 4:15 PM EDT 01/17/2023 4:18 PM EDT Coco Jean MD LAB POINT OF CA RE TEST DOCKED DEVICE UNSOLICITED RESULTS Performing Organization Address [facility] Co de Phone Number [facility] [address] [address] * (ABNORMAL) GLUCOSE METER, POINT OF CARE (01/17/2023 1:12 PM EDT) Glucose Meter 213(H) 70 - 120 mg/dL 01/17/2023 1:16 PM EDT [facility] Blood Whole blood specimen / Unknown 01/17/2023 1:12 PM EDT 01/17/2023 1:16 PM EDT Coco Jean MD LAB POINT OF CA RE TEST DOCKED DEVICE UNSOLICITED RESULTS Performing Organization Address [facility] de Phone Number [facility] [address] [address] * (ABNORMAL) GLUCOSE METER, POINT OF CARE (01/17/2023 11:51 AM EDT) Glucose Meter 52(L) 70 - 120 mg/dL 01/17/2023 11:58 AM EDT [facility] Blood Whole blood specimen / Unknown 01/17/2023 11:51 AM EDT 01/17/2023 11:58 AM EDT Coco Jean MD LAB POINT OF CA RE TEST DOCKED DEVICE UNSOLICITED RESULTS Performing Organization Address [facility] de Phone Number [facility] [address] [facility] [phone] * GLUCOSE METER, POINT OF CARE (01/17/2023 11:20 AM EDT) Glucose Meter 73 70 - 120 mg/dL 01/17/2023 11:24 AM EDT [facility] Blood Whole blood specimen / Unknown 01/17/2023 11:20 AM EDT 01/17/2023 11:24 AM EDT Coco Jean MD LAB POINT OF CA RE TEST DOCKED DEVICE UNSOLICITED RESULTS Performing Organization Address [facility] Co de Phone Number [facility] [address] [place] [address] * (ABNORMAL) GLUCOSE METER, POINT OF CARE (01/17/2023 7:21 AM EDT) Glucose Meter 280(H) 70 - 120 mg/dL 01/17/2023 7:46 AM EDT [facility] Blood Whole blood specimen / Unknown 01/17/2023 7:21 AM EDT 01/17/2023 7:46 AM EDT Coco Jean MD LAB POINT OF CA RE TEST DOCKED DEVICE UNSOLICITED RESULTS Performing Organization Address [facility] Phone Number [facility] [address] [place] [address] * (ABNORMAL) GLUCOSE METER, POINT OF CARE (01/17/2023 6:35 AM EDT) Glucose Meter 184(H) 70 - 120 mg/dL 01/17/2023 6:36 AM EDT [facility] Blood Whole blood specimen / Unknown 01/17/2023 6:35 AM EDT 01/17/2023 6:36 AM EDT Coco Jean MD LAB POINT OF CA RE TEST DOCKED DEVICE UNSOLICITED RESULTS Performing Organization Address [facility] Phone Number [facility] [address] [place] [address] * (ABNORMAL) GLUCOSE METER, POINT OF CARE (01/17/2023 6:04 AM EDT) Glucose Meter 31(LL) 70 - 120 mg/dL 01/17/2023 8:21 AM EDT [facility] Device Comment Notified Provider 01/17/2023 8:21 AM EDT [facility] Blood Whole blood specimen / Unknown 01/17/2023 6:04 AM EDT 01/17/2023 8:21 AM EDT Coco Jean MD LAB POINT OF CA RE TEST DOCKED DEVICE UNSOLICITED RESULTS Performing Organization Address City/[facility]/ZIP Co de Phone Number [facility] [address] [place] [address] * (ABNORMAL) GLUCOSE METER, POINT OF CARE (01/16/2023 7:51 PM EDT) Glucose Meter 144(H) 70 - 120 mg/dL 01/16/2023 7:52 PM EDT [facility] Blood Whole blood specimen / Unknown 01/16/2023 7:51 PM EDT 01/16/2023 7:52 PM EDT Coco Jean MD LAB POINT OF CA RE TEST DOCKED DEVICE UNSOLICITED RESULTS Performing Organization Address [facility] Co de Phone Number [facility] [address] [place] [address] * (ABNORMAL) GLUCOSE METER, POINT OF CARE (01/16/2023 5:00 PM EDT) Glucose Meter 128(H) 70 - 120 mg/dL 01/16/2023 5:03 PM EDT [facility] Blood Whole blood specimen / Unknown 01/16/2023 5:00 PM EDT 01/16/2023 5:03 PM EDT Coco Jean MD LAB POINT OF CA RE TEST DOCKED DEVICE UNSOLICITED RESULTS Performing Organization Address [facility] Co de Phone Number [facility] [address] [place] [address] * (ABNORMAL) GLUCOSE METER, POINT OF CARE (01/16/2023 11:40 AM EDT) Glucose Meter 121(H) 70 - 120 mg/dL 01/16/2023 11:45 AM EDT [facility] Blood Whole blood specimen / Unknown 01/16/2023 11:40 AM EDT 01/16/2023 11:45 AM EDT Coco Jean MD LAB POINT OF CA RE TEST DOCKED DEVICE UNSOLICITED RESULTS Performing Organization Address [facility] Co de Phone Number [facility] [address] [place] [address] * (ABNORMAL) GLUCOSE METER, POINT OF CARE (01/16/2023 7:57 AM EDT) Glucose Meter 171(H) 70 - 120 mg/dL 01/16/2023 8:29 AM EDT [facility] Blood Whole blood specimen / Unknown 01/16/2023 7:57 AM EDT 01/16/2023 8:29 AM EDT Coco Jean MD LAB POINT OF CA RE TEST DOCKED DEVICE UNSOLICITED RESULTS Performing Organization Address [facility] de Phone Number [facility] [address] [place] [address] * (ABNORMAL) GLUCOSE METER, POINT OF CARE (01/16/2023 5:53 AM EDT) Glucose Meter 138(H) 70 - 120 mg/dL 01/16/2023 5:55 AM EDT [facility] Blood Whole blood specimen / Unknown 01/16/2023 5:53 AM EDT 01/16/2023 5:55 AM EDT Coco Jean MD LAB POINT OF CA RE TEST DOCKED DEVICE UNSOLICITED RESULTS Performing Organization Address [facility] de Phone Number [facility] [address] [place] [address] * (ABNORMAL) GLUCOSE METER, POINT OF CARE (01/16/2023 5:22 AM EDT) Glucose Meter 37(LL) 70 - 120 mg/dL 01/16/2023 7:26 AM EDT [facility] Blood Whole blood specimen / Unknown 01/16/2023 5:22 AM EDT 01/16/2023 7:25 AM EDT Coco Jean MD LAB POINT OF CA RE TEST DOCKED DEVICE UNSOLICITED RESULTS Performing Organization Address City/[facility]/ZIP Co de Phone Number [facility] [address] [facility] [place] [address] * (ABNORMAL) GLUCOSE METER, POINT OF CARE (01/15/2023 11:43 PM EDT) Glucose Meter 339(H) 70 - 120 mg/dL 01/15/2023 11:45 PM EDT [facility] Blood Whole blood specimen / Unknown 01/15/2023 11:43 PM EDT 01/15/2023 11:45 PM EDT Coco Jean MD LAB POINT OF CA RE TEST DOCKED DEVICE UNSOLICITED RESULTS Performing Organization Address [facility] Co de Phone Number [facility] [address] [facility] [address] * (ABNORMAL) GLUCOSE METER, POINT OF CARE (01/15/2023 9:54 PM EDT) Glucose Meter >500(HH) 70 - 120 mg/dL 01/16/2023 7:25 AM EDT [facility] Device Comment Notified Provider 01/16/2023 7:25 AM EDT [facility] Blood Whole blood specimen / Unknown 01/15/2023 9:54 PM EDT 01/16/2023 7:25 AM EDT Coco Jean MD LAB POINT OF CA RE TEST DOCKED DEVICE UNSOLICITED RESULTS Performing Organization Address City/[facility] Co de Phone Number [facility] [address] [facility] [place] [address] * (ABNORMAL) GLUCOSE METER, POINT OF CARE (01/15/2023 8:28 PM EDT) Glucose Meter 379(H) 70 - 120 mg/dL 01/15/2023 8:31 PM EDT [facility] Blood Whole blood specimen / Unknown 01/15/2023 8:28 PM EDT 01/15/2023 8:31 PM EDT Coco Jean MD LAB POINT OF CA RE TEST DOCKED DEVICE UNSOLICITED RESULTS Performing Organization Address [facility] Co de Phone Number [facility] [address] [place] [address] * (ABNORMAL) GLUCOSE METER, POINT OF CARE (01/15/2023 4:43 PM EDT) Glucose Meter 139(H) 70 - 120 mg/dL 01/15/2023 4:49 PM EDT [facility] Blood Whole blood specimen / Unknown 01/15/2023 4:43 PM EDT 01/15/2023 4:49 PM EDT Coco Jean MD LAB POINT OF CA RE TEST DOCKED DEVICE UNSOLICITED RESULTS Performing Organization Address [facility] de Phone Number [facility] [address] [place] [address] * (ABNORMAL) GLUCOSE METER, POINT OF CARE (01/15/2023 4:13 PM EDT) Glucose Meter 44(LL) 70 - 120 mg/dL 01/15/2023 4:19 PM EDT [facility] Blood Whole blood specimen / Unknown 01/15/2023 4:13 PM EDT 01/15/2023 4:19 PM EDT Coco Jean MD LAB POINT OF CA RE TEST DOCKED DEVICE UNSOLICITED RESULTS Performing Organization Address [facility] Co de Phone Number [facility] [address] [place] [address] * (ABNORMAL) GLUCOSE METER, POINT OF CARE (01/15/2023 11:15 AM EDT) Glucose Meter 267(H) 70 - 120 mg/dL 01/15/2023 11:18 AM EDT [facility] Blood Whole blood specimen / Unknown 01/15/2023 11:15 AM EDT 01/15/2023 11:18 AM EDT Coco Jean MD LAB POINT OF CA RE TEST DOCKED DEVICE UNSOLICITED RESULTS Performing Organization Address [facility] [place] Co de Phone Number [facility] [address] [place] [address] * (ABNORMAL) GLUCOSE METER, POINT OF CARE (01/15/2023 6:46 AM EDT) Glucose Meter 230(H) 70 - 120 mg/dL 01/15/2023 6:56 AM EDT [facility] Blood Whole blood specimen / Unknown 01/15/2023 6:46 AM EDT 01/15/2023 6:56 AM EDT Coco Jean MD LAB POINT OF CA RE TEST DOCKED DEVICE UNSOLICITED RESULTS Performing Organization Address [facility] de Phone Number [facility] [address] [place] [address] * (ABNORMAL) GLUCOSE METER, POINT OF CARE (01/14/2023 8:01 PM EDT) Glucose Meter 126(H) 70 - 120 mg/dL 01/14/2023 8:04 PM EDT [facility] Blood Whole blood specimen / Unknown 01/14/2023 8:01 PM EDT 01/14/2023 8:04 PM EDT Coco Jean MD LAB POINT OF CA RE TEST DOCKED DEVICE UNSOLICITED RESULTS Performing Organization Address [facility] Co de Phone Number [facility] [address] [place] [address] * (ABNORMAL) GLUCOSE METER, POINT OF CARE (01/14/2023 4:56 PM EDT) Glucose Meter 166(H) 70 - 120 mg/dL 01/14/2023 4:57 PM EDT [facility] Blood Whole blood specimen / Unknown 01/14/2023 4:56 PM EDT 01/14/2023 4:57 PM EDT Coco Jean MD LAB POINT OF CA RE TEST DOCKED DEVICE UNSOLICITED RESULTS Performing Organization Address City/[facility]/ZIP Co de Phone Number [facility] [address] [place] [address] * GLUCOSE METER, POINT OF CARE (01/14/2023 12:03 PM EDT) Glucose Meter 90 70 - 120 mg/dL 01/14/2023 12:08 PM EDT [facility] Blood Whole blood specimen / Unknown 01/14/2023 12:03 PM EDT 01/14/2023 12:08 PM EDT Coco Jean MD LAB POINT OF CA RE TEST DOCKED DEVICE UNSOLICITED RESULTS Performing Organization Address [facility] Co de Phone Number [facility] [address] [place] [address] * (ABNORMAL) GLUCOSE METER, POINT OF CARE (01/14/2023 7:20 AM EDT) Glucose Meter 177(H) 70 - 120 mg/dL 01/14/2023 7:26 AM EDT [facility] Blood Whole blood specimen / Unknown 01/14/2023 7:20 AM EDT 01/14/2023 7:26 AM EDT Coco Jean MD LAB POINT OF CA RE TEST DOCKED DEVICE UNSOLICITED RESULTS Performing Organization Address [facility] Co de Phone Number [facility] [address] [place] [address] * GLUCOSE METER, POINT OF CARE (01/13/2023 7:56 PM EDT) Glucose Meter 118 70 - 120 mg/dL 01/13/2023 7:58 PM EDT [facility] Blood Whole blood specimen / Unknown 01/13/2023 7:56 PM EDT 01/13/2023 7:58 PM EDT Coco Jean MD LAB POINT OF CA RE TEST DOCKED DEVICE UNSOLICITED RESULTS Performing Organization Address [facility] Co de Phone Number [facility] [address] [place] [address] * FECAL OCCULT BLOOD, EIA (01/13/2023 6:16 PM EDT) iFOBT Negative Negative 01/13/2023 6:[address] [facility] Stool Stool specimen / Unknown Non-blood Collection / Unknown 01/13/2023 6:16 PM EDT 01/13/2023 6:25 PM EDT Kishor YOUNG LAB FLUID AND STOOL ORDERABLES Performing Organization Address [facility] Co de Phone Number LABORATORY [address] [address] * (ABNORMAL) GLUCOSE METER, POINT OF CARE (01/13/2023 4:50 PM EDT) Glucose Meter 179(H) 70 - 120 mg/dL 01/13/2023 5:10 PM EDT [facility] Blood Whole blood specimen / Unknown 01/13/2023 4:50 PM EDT 01/13/2023 5:10 PM EDT Coco Jean MD LAB POINT OF CA RE TEST DOCKED DEVICE UNSOLICITED RESULTS Performing Organization Address [facility] de Phone Number [facility] [address] [place] [address] * (ABNORMAL) GLUCOSE METER, POINT OF CARE (01/13/2023 11:47 AM EDT) Glucose Meter 132(H) 70 - 120 mg/dL 01/13/2023 11:50 AM EDT [facility] Blood Whole blood specimen / Unknown 01/13/2023 11:47 AM EDT 01/13/2023 11:50 AM EDT Coco Jean MD LAB POINT OF CA RE TEST DOCKED DEVICE UNSOLICITED RESULTS Performing Organization Address [facility] Co de Phone Number [facility] [address] [place] [address] * GLUCOSE METER, POINT OF CARE (01/13/2023 7:06 AM EDT) Glucose Meter 82 70 - 120 mg/dL 01/13/2023 7:10 AM EDT [facility] Blood Whole blood specimen / Unknown 01/13/2023 7:06 AM EDT 01/13/2023 7:10 AM EDT Coco Jean MD LAB POINT OF CA RE TEST DOCKED DEVICE UNSOLICITED RESULTS Performing Organization Address [facility] de Phone Number [facility] [address] [place] [address] * GASTROINTESTINAL PATHOGEN PANEL CULTURE (01/12/2023 9:09 PM EDT) Culture Growth No Aeromonas species or Plesiomonas species isolated. 01/15/2023 1:39 PM EDT LABORATORY [facility] Stool Stool specimen / Unknown 01/12/2023 9:09 PM EDT 01/12/2023 9:16 PM EDT Kishor YOUNG LAB MICRO - GENERAL ORDERABLES Performing Organization Address City/[facility] Co de Phone Number LABORATORY [facility] [address] [place] [address] * GASTROINTESTINAL PATHOGEN PANEL PCR (01/12/2023 9:09 PM EDT) Campylobacter group by PCR Negative Negative 01/13/2023 10:18 AM EDT LABORATORY [facility] Salmonella species by PCR Negative Negative 01/13/2023 10:18 AM EDT LABORATORY [facility] Shigella species by PCR Negative Negative 01/13/2023 10:18 AM EDT LABORATORY [facility] Vibrio group by PCR Negative Negative 01/13/2023 10:18 AM EDT LAB[facility]ATORY [facility] Yersinia enterocolitica by PCR Negative Negative 01/13/2023 10:18 AM EDT LAB[facility]ATORY [facility] Shiga Toxin 1 Gene by PCR Negative Negative 01/13/2023 10:18 AM EDT LAB[facility]ATORY [facility] Shiga Toxin 2 Gene by PCR Negative Negative 01/13/2023 10:18 AM EDT LAB[facility]ATORY [facility] Norovirus by PCR Negative Negative 01/14/20 10:18 AM EDT LAB[facility]ATORY [facility] Rotavirus by PCR Negative Negative 01/14/20 10:18 AM EDT LABORATORY [facility] Stool Stool specimen / Unknown 01/12/2023 9:09 PM EDT 01/12/2023 9:16 PM EDT [facility] MICRO - GENERAL ORDERABLES LABORATORY [facility] [address] [place] [address] * FECAL OCCULT BLOOD, EIA (01/12/2023 9:09 PM EDT) Pathologist [facility] iFOBT Negative Negative 01/12/2023 9:[address] [facility] Stool Stool specimen / Unknown 01/12/2023 9:09 PM EDT 01/12/2023 9:16 PM EDT [facility] LAB FLUID AND STOOL ORDERABLES LABORATORY [address] [address] * CLOSTRIDIUM DIFFICILE, PCR (01/12/2023 9:09 PM EDT) Stool Consistency Semi-liquid 01/12/2023 10:[address] [facility] Clostridium difficile Result Negative. No C. difficile toxin B gene DNA detected by PCR (Amplified Probe). Negative 01/12/2023 10:[address] [facility] Stool Stool specimen / Unknown 01/12/2023 9:09 PM EDT 01/12/2023 9:16 PM EDT Kishor Teleguz SENIOR HADO[employer] DEVELOPER LAB MICRO - GENERAL ORDERABLES Performing Organization Address [facility]/ZIP Co de Phone Number LABORATORY [address] [address] * PT INR (01/12/2023 8:34 PM EDT) Prothrombin Time 12.2 11.6 - 15.2 seconds 01/12/2023 8:[address] [facility] INR 0.9 0.8 - 1.2 01/12/2023 8:[address] [facility] Blood Venous blood specimen / Unknown Venipuncture / Unknown 01/12/2023 8:34 PM EDT 01/12/2023 8:36 PM EDT Narrative [facility]ATORY [facility] - 01/12/2023 8:53 PM EDT Warfarin Therapy INR: 2.0-3.0 conventional anticoagulation INR: 2.5-3.5 high intensity anticoagulation Kishor Teleguz SENIOR HADOOP DEVELOPER LAB BLOOD ORDERABLES Performing Organization Address City/[facility] Co de Phone Number LABORATORY [address] [address] * MAGNESIUM (01/12/2023 8:34 PM EDT) Magnesium 2.1 1.5 - 2.6 mg/dL 01/12/2023 9:[address] [facility] Blood Venous blood specimen / Unknown Venipuncture / Unknown 01/12/2023 8:34 PM EDT 01/12/2023 8:36 PM EDT Kishor Teleguz SENIOR HADOOP DEVELOPER LAB BLOOD ORDERABLES Performing Organization Address City/[facility]/ZIP Co de Phone Number LABORATORY [address] [id number] * TYPE AND SCREEN (01/12/2023 8:34 PM EDT) ABO A 01/12/2023 9:[address] [facility] Rh Positive 01/12/2023 9:[address] [facility] Red Blood Cell Antibody Screen Negative 01/12/2023 9:[address] [facility] Specimen Expiration Date 01/15/2023 23:59 01/12/2023 9:[address] [facility] Blood Venous blood specimen / Unknown Venipuncture / Unknown 01/12/2023 8:34 PM EDT 01/12/2023 8:36 PM EDT Kishor YOUNG LAB BLOOD BANK TEST ORDERABLES LABORATORY [facility] BLOOD [facility] [address] [place] [address] * (ABNORMAL) COMPREHENSIVE METABOLIC PANEL (01/12/2023 8:34 PM EDT) BUN 32(H) 6 - 20 mg/dL 01/12/2023 9:[address] [facility] Creatinine 1.4(H) 0.6 - 1.2 mg/dL 01/12/2023 9:16 PM EDT LABORATORY GL Estimated Glomerular Filtration Rate 68 >=60 mL/min 01/12/2023 9:16 PM EDT LABORATORY GL Comment:eGFR is calculated b ased on the CKD-EPI 2020 equation Sodium 140 135 - 146 mmol/L 01/12/2023 9:16 PM EDT LABORATORY GL Potassium 4.7 3.5 - 5.1 mmol/L 01/12/2023 9:16 PM EDT LABORATORY GL Chloride 104 98 - 107 mmol/L 01/12/2023 9:16 PM EDT LABORATORY [facility] CO2 27 22 - 32 mmol/L 01/12/2023 9:16 PM EDT LABORATORY GL Anion Gap 9 7 - 15 mmol/L 01/12/2023 9:16 PM EDT LABORATORY GL Glucose 216(H) 70 - 120 mg/dL 01/12/2023 9:16 PM EDT LABORATORY [facility] Albumin 4.4 3.8 - 5.0 g/dL 01/12/2023 9:16 PM EDT LABORATORY [facility] AST 28 10 - 50 U/L 01/12/2023 9:16 PM EDT LABORATORY [facility] Alkaline Phosphatase 92 35 - 130 U/L 01/12/2023 9:16 PM EDT LABORATORY [facility] Bilirubin, Total <0.2 <=1.2 mg/dL 01/12/2023 9:16 PM EDT LABORATORY [facility] Calcium 9.5 8.4 - 10.2 mg/dL 01/12/2023 9:16 PM EDT LABORATORY [facility] Protein 8.3 6.0 - 8.3 g/dL 01/12/2023 9:16 PM EDT LABORATORY [facility] ALT 53(H) 10 - 50 U/L 01/12/2023 9:16 PM EDT LABORATORY [facility] Blood Venous blood specimen / Unknown Venipuncture / Unknown 01/12/2023 8:34 PM EDT 01/12/2023 8:36 PM EDT Kishor YOUNG LAB BLOOD ORDERABLES LABORATORY [facility] [address] [place] [address] * (ABNORMAL) CBC (01/12/2023 8:34 PM EDT) WBC 10.27 4.00 - 10.80 K/uL 01/12/2023 8:41 PM EDT LABORATORY [facility] RBC 3.31 4.50 - 5.25 M/uL 01/12/2023 8:41 PM EDT LABORATORY [facility] HGB 10.0(L) 14.0 - 16.8 g/dL 01/12/2023 8:41 PM EDT LABORATORY [facility] HCT 32.2(L) 40.0 - 48.4 % 01/12/2023 8:41 PM EDT LABORATORY [facility] MCV 97.3 82.0 - 99.5 fL 01/12/2023 8:41 PM EDT LABORATORY [facility] MCH 30.2 27.0 - 34.0 pg 01/12/2023 8:[address] [facility] MCHC 31.1 32.0 - 36.0 g/dL 01/12/2023 8:[address] [facility] RDW 14.5 11.5 - 15.5 % 01/12/2023 8:[address] [facility] PLT 381 140 - 400 K/uL 01/12/2023 8:[address] [facility] MPV 9.0 6.6 - 11.1 fL 01/12/2023 8:[address] [facility] nRBCs 0 <=0 /100 WBCs 01/12/2023 8:[address] [facility] Blood Venous blood specimen / Unknown Venipuncture / Unknown 01/12/2023 8:34 PM EDT 01/12/2023 8:36 PM EDT Kishor YOUNG LAB BLOOD ORDERABLES Performing Organization Address City/[facility]/ZIP Co de Phone Number LABORATORY [address] [id number] * (ABNORMAL) GLUCOSE METER, POINT OF CARE (01/12/2023 7:57 PM EDT) Glucose Meter 200(H) 70 - 120 mg/dL 01/12/2023 7:59 PM EDT [facility] Blood Whole blood specimen / Unknown 01/12/2023 7:57 PM EDT 01/12/2023 7:59 PM EDT Coco Jean MD LAB POINT OF CA RE TEST DOCKED DEVICE UNSOLICITED RESULTS [facility] [address] [place] [id number] * (ABNORMAL) GLUCOSE METER, POINT OF CARE (01/12/2023 4:45 PM EDT) Glucose Meter 311(H) 70 - 120 mg/dL 01/12/2023 4:47 PM EDT [facility] Blood Whole blood specimen / Unknown 01/12/2023 4:45 PM EDT 01/12/2023 4:47 PM EDT Coco Jean MD LAB POINT OF CA RE TEST DOCKED DEVICE UNSOLICITED RESULTS Performing Organization Address [facility] Co de Phone Number [facility] [address] [place] [address] * (ABNORMAL) GLUCOSE METER, POINT OF CARE (01/12/2023 12:04 PM EDT) Glucose Meter 157(H) 70 - 120 mg/dL 01/12/2023 12:08 PM EDT [facility] Blood Whole blood specimen / Unknown 01/12/2023 12:04 PM EDT 01/12/2023 12:08 PM EDT Coco Jean MD LAB POINT OF CA RE TEST DOCKED DEVICE UNSOLICITED RESULTS Performing Organization Address [facility] Phone Number [facility] [address] [place] [address] * (ABNORMAL) GLUCOSE METER, POINT OF CARE (01/12/2023 10:53 AM EDT) Glucose Meter 43(LL) 70 - 120 mg/dL 01/12/2023 2:48 PM EDT [facility] Device Comment Notified Provider 01/12/2023 2:48 PM EDT [facility] Blood Whole blood specimen / Unknown 01/12/2023 10:53 AM EDT 01/12/2023 2:48 PM EDT Coco Jean MD LAB POINT OF CA RE TEST DOCKED DEVICE UNSOLICITED RESULTS Performing Organization Address [facility] Phone Number [facility] [address] [place] [address] * (ABNORMAL) GLUCOSE METER, POINT OF CARE (01/12/2023 7:19 AM EDT) Glucose Meter 150(H) 70 - 120 mg/dL 01/12/2023 7:22 AM EDT [facility] Blood Whole blood specimen / Unknown 01/12/2023 7:19 AM EDT 01/12/2023 7:22 AM EDT Coco Jean MD LAB POINT OF CA RE TEST DOCKED DEVICE UNSOLICITED RESULTS Performing Organization Address [facility] Co de Phone Number [facility] [address] [place] [address] * (ABNORMAL) GLUCOSE METER, POINT OF CARE (01/12/2023 2:06 AM EDT) Glucose Meter 303(H) 70 - 120 mg/dL 01/12/2023 2:08 AM EDT [facility] Blood Whole blood specimen / Unknown 01/12/2023 2:06 AM EDT 01/12/2023 2:08 AM EDT Coco Jean MD LAB POINT OF CA RE TEST DOCKED DEVICE UNSOLICITED RESULTS Performing Organization Address [facility] de Phone Number [facility] [address] [place] [address] * (ABNORMAL) GLUCOSE METER, POINT OF CARE (01/11/2023 8:45 PM EDT) Glucose Meter 212(H) 70 - 120 mg/dL 01/11/2023 8:47 PM EDT [facility] Blood Whole blood specimen / Unknown 01/11/2023 8:45 PM EDT 01/11/2023 8:47 PM EDT Coco Jean MD LAB POINT OF CA RE TEST DOCKED DEVICE UNSOLICITED RESULTS Performing Organization Address [facility] Phone Number [facility] [address] [place] [address] * (ABNORMAL) GLUCOSE METER, POINT OF CARE (01/11/2023 4:51 PM EDT) Glucose Meter 252(H) 70 - 120 mg/dL 01/11/2023 4:53 PM EDT [facility] Blood Whole blood specimen / Unknown 01/11/2023 4:51 PM EDT 01/11/2023 4:53 PM EDT Coco Jean MD LAB POINT OF CA RE TEST DOCKED DEVICE UNSOLICITED RESULTS Performing Organization Address [facility] Co de Phone Number [facility] [address] [place] [address] * (ABNORMAL) GLUCOSE METER, POINT OF CARE (01/11/2023 12:03 PM EDT) Glucose Meter 153(H) 70 - 120 mg/dL 01/11/2023 12:07 PM EDT [facility] Blood Whole blood specimen / Unknown 01/11/2023 12:03 PM EDT 01/11/2023 12:07 PM EDT Coco Jean MD LAB POINT OF CA RE TEST DOCKED DEVICE UNSOLICITED RESULTS Performing Organization Address [facility] de Phone Number [facility] [address] [place] [address] * (ABNORMAL) GLUCOSE METER, POINT OF CARE (01/11/2023 7:39 AM EDT) Glucose Meter 222(H) 70 - 120 mg/dL 01/11/2023 7:41 AM EDT [facility] Blood Whole blood specimen / Unknown 01/11/2023 7:39 AM EDT 01/11/2023 7:41 AM EDT Coco Jean MD LAB POINT OF CA RE TEST DOCKED DEVICE UNSOLICITED RESULTS Performing Organization Address [facility] Phone Number [facility] [address] [place] [address] * (ABNORMAL) GLUCOSE METER, POINT OF CARE (01/11/2023 2:24 AM EDT) Glucose Meter 267(H) 70 - 120 mg/dL 01/11/2023 2:26 AM EDT [facility] Blood Whole blood specimen / Unknown 01/11/2023 2:24 AM EDT 01/11/2023 2:26 AM EDT Coco Jean MD LAB POINT OF CA RE TEST DOCKED DEVICE UNSOLICITED RESULTS Performing Organization Address [facility] Co de Phone Number [facility] [address] [place] [address] * (ABNORMAL) GLUCOSE METER, POINT OF CARE (01/10/2023 8:51 PM EDT) Glucose Meter 200(H) 70 - 120 mg/dL 01/10/2023 8:57 PM EDT [facility] Blood Whole blood specimen / Unknown 01/10/2023 8:51 PM EDT 01/10/2023 8:57 PM EDT Coco Jean MD LAB POINT OF CA RE TEST DOCKED DEVICE UNSOLICITED RESULTS Performing Organization Address [facility] de Phone Number [facility] [address] [place] [address] * (ABNORMAL) GLUCOSE METER, POINT OF CARE (01/10/2023 7:44 PM EDT) Glucose Meter 122(H) 70 - 120 mg/dL 01/10/2023 7:46 PM EDT [facility] Blood Whole blood specimen / Unknown 01/10/2023 7:44 PM EDT 01/10/2023 7:46 PM EDT Coco Jean MD LAB POINT OF CA RE TEST DOCKED DEVICE UNSOLICITED RESULTS Performing Organization Address [facility] Phone Number [facility] [address] [place] [address] * (ABNORMAL) GLUCOSE METER, POINT OF CARE (01/10/2023 4:26 PM EDT) Glucose Meter 218(H) 70 - 120 mg/dL 01/10/2023 4:29 PM EDT [facility] Blood Whole blood specimen / Unknown 01/10/2023 4:26 PM EDT 01/10/2023 4:29 PM EDT Coco Jean MD LAB POINT OF CA RE TEST DOCKED DEVICE UNSOLICITED RESULTS Performing Organization Address [facility] Co de Phone Number [facility] [address] [place] [address] * (ABNORMAL) GLUCOSE METER, POINT OF CARE (01/10/2023 11:35 AM EDT) Glucose Meter 184(H) 70 - 120 mg/dL 01/10/2023 11:45 AM EDT [facility] Blood Whole blood specimen / Unknown 01/10/2023 11:35 AM EDT 01/10/2023 11:45 AM EDT Coco Jean MD LAB POINT OF CA RE TEST DOCKED DEVICE UNSOLICITED RESULTS Performing Organization Address [facility] de Phone Number [facility] [address] [place] [address] * GLUCOSE METER, POINT OF CARE (01/10/2023 7:19 AM EDT) Glucose Meter 111 70 - 120 mg/dL 01/10/2023 7:25 AM EDT [facility] Blood Whole blood specimen / Unknown 01/10/2023 7:19 AM EDT 01/10/2023 7:25 AM EDT Coco Jean MD LAB POINT OF CA RE TEST DOCKED DEVICE UNSOLICITED RESULTS Performing Organization Address [facility] Phone Number [facility] [address] [place] [address] * (ABNORMAL) GLUCOSE METER, POINT OF CARE (01/09/2023 7:59 PM EDT) Glucose Meter 160(H) 70 - 120 mg/dL 01/09/2023 8:03 PM EDT [facility] Blood Whole blood specimen / Unknown 01/09/2023 7:59 PM EDT 01/09/2023 8:02 PM EDT Coco Jean MD LAB POINT OF CA RE TEST DOCKED DEVICE UNSOLICITED RESULTS Performing Organization Address [facility] Co de Phone Number [facility] [address] [place] [address] * (ABNORMAL) GLUCOSE METER, POINT OF CARE (01/09/2023 4:42 PM EDT) Glucose Meter 139(H) 70 - 120 mg/dL 01/09/2023 4:47 PM EDT [facility] Blood Whole blood specimen / Unknown 01/09/2023 4:42 PM EDT 01/09/2023 4:47 PM EDT Coco Jean MD LAB POINT OF NM RE TEST DOCKED DEVICE UNSOLICITED RESULTS Performing Organization Address [facility] Phone Number [facility] [address] [place] [address] * INFLUENZA A/B RSV SARS-COV2,PCR (01/09/2023 1:49 PM EDT) Pathologist [facility] SARS-CoV-2 (COVID-19) Result Negative Negative 01/09/2023 2:[address] [facility] Comment: No SARS-CoV2 Coronavirus RNA detected by PCR (amplified probe). This express test was developed and its performance characteristics determined by [facility]. It has not been cleared or approved by the U.S. Food and Drug Administration (FDA). FDA does not require this test to go thru premarket FDA review. This test is used for clinical purposes. It should not be regarded as investigational or for research. This laboratory is certified under the Clinical Laboratory Improvement Amendments (CLIA) as qualified to perform high complexity clinical laboratory testing. This test is a nucleic acid amplification test (NAAT), a reverse transcriptase polymerase chain reaction (RT-PCR) test, or a Centers for Disease Control- acceptable equivalent. The test is performed in a high complexity Clinical Laboratory Improvement Amendments-(CLIA) certified laboratory. The test is acceptable for SARS-CoV-2 diagnosis, surveillance, and travel within the [place] and to most countries. Please check with local testing authorities about requirements before travel. The validation of bronchial specimens, tracheal aspirates, and sputum for this assay was developed and performance characteristics determined by [facility]. The validation of alternate specimen types has not been cleared or approved by the U.S. Food and Drug Administration (FDA). It has been determined that such clearance is not necessary. Influenza A PCR Result Negative Negative 01/09/2023 2:[address] [facility] Comment:No Influenza A RNA d etected by PCR (amplified probe) Influenza B PCR Result Negative Negative 01/09/2023 2:[address] [facility] Comment:No Influenza B RNA d etected by PCR (amplified probe) RSV PCR Result Negative Negative 01/09/2023 2:[address] [facility] Comment:No Respiratory Syncy tial Virus RNA detected by PCR (amplified probe) Upper Respiratory Mid-turbinate nasal swab / Unknown 01/09/2023 1:49 PM EDT 01/09/2023 1:59 PM EDT Coco Jean MD LAB MICRO - GEN ERAL ORDERABLES LABORATORY [address] [address] * GASTROINTESTINAL PATHOGEN PANEL CULTURE (01/09/2023 1:49 PM EDT) Culture Growth No Aeromonas species or Plesiomonas species isolated. 01/12/2023 9:45 AM EDT LABORATORY [facility] Stool Stool specimen / Unknown 01/09/2023 1:49 PM EDT 01/09/2023 6:16 PM EDT Nery Collier PA-C LAB MICRO - GENERAL ORDERABLES LABORATORY [facility] [address] [place] [address] * GASTROINTESTINAL PATHOGEN PANEL PCR (01/09/2023 1:49 PM EDT) Campylobacter group by PCR Negative Negative 01/10/2023 10:20 AM EDT LABORATORY [facility] Salmonella species by PCR Negative Negative 01/10/2023 10:20 AM EDT LABORATORY [facility] Shigella species by PCR Negative Negative 01/10/2023 10:20 AM EDT LABORATORY [facility] Vibrio group by PCR Negative Negative 01/10/2023 10:20 AM EDT LABORATORY [facility] Yersinia enterocolitica by PCR Negative Negative 01/10/2023 10:20 AM EDT LABORATORY [facility] Shiga Toxin 1 Gene by PCR Negative Negative 01/10/2023 10:20 AM EDT LABORATORY [facility] Shiga Toxin 2 Gene by PCR Negative Negative 01/10/2023 10:20 AM EDT LABORATORY [facility] Norovirus by PCR Negative Negative 01/11/20 10:20 AM EDT LABORATORY [facility] Rotavirus by PCR Negative Negative 01/11/20 10:20 AM EDT LABORATORY [facility] Stool Stool specimen / Unknown 01/09/2023 1:49 PM EDT 01/09/2023 6:16 PM EDT Nery Collier PA-C LAB MICRO - GENERAL ORDERABLES LABORATORY [facility] [address] [place], [place] [id number] * (ABNORMAL) GLUCOSE METER, POINT OF CARE (01/09/2023 11:33 AM EDT) Glucose Meter 204(H) 70 - 120 mg/dL 01/09/2023 11:39 AM EDT [facility] Blood Whole blood specimen / Unknown 01/09/2023 11:33 AM EDT 01/09/2023 11:39 AM EDT Coco Jean MD LAB POINT OF CA RE TEST DOCKED DEVICE UNSOLICITED RESULTS [facility] [address] [place] [address] * (ABNORMAL) GLUCOSE METER, POINT OF CARE (01/09/2023 6:53 AM EDT) Glucose Meter 199(H) 70 - 120 mg/dL 01/09/2023 6:57 AM EDT [facility] Blood Whole blood specimen / Unknown 01/09/2023 6:53 AM EDT 01/09/2023 6:57 AM EDT Coco Jean MD LAB POINT OF CA RE TEST DOCKED DEVICE UNSOLICITED RESULTS Performing Organization Address [facility] Co de Phone Number [facility] [address] [place] [address] * (ABNORMAL) GLUCOSE METER, POINT OF CARE (01/09/2023 6:25 AM EDT) Glucose Meter 41(LL) 70 - 120 mg/dL 01/09/2023 9:04 AM EDT [facility] Blood Whole blood specimen / Unknown 01/09/2023 6:25 AM EDT 01/09/2023 9:04 AM EDT Coco Jean MD LAB POINT OF CA RE TEST DOCKED DEVICE UNSOLICITED RESULTS Performing Organization Address [facility] Co de Phone Number [facility] [address] [place] [address] * (ABNORMAL) CBC (01/09/2023 6:21 AM EDT) WBC 8.92 4.00 - 10.80 K/uL 01/09/2023 6:27 AM EDT LABORATORY [facility] RBC 3.10 4.50 - 5.25 M/uL 01/09/2023 6:27 AM EDT LABORATORY [facility] HGB 9.5(L) 14.0 - 16.8 g/dL 01/09/2023 6:27 AM EDT LABORATORY [facility] HCT 30.0(L) 40.0 - 48.4 % 01/09/2023 6:27 AM EDT LABORATORY [facility] MCV 96.8 82.0 - 99.5 fL 01/09/2023 6:27 AM EDT LABORATORY [facility] MCH 30.6 27.0 - 34.0 pg 01/09/2023 6:[address] [facility] MCHC 31.7 32.0 - 36.0 g/dL 01/09/2023 6:[address] [facility] RDW 14.1 11.5 - 15.5 % 01/09/2023 6:[address] [facility] PLT 331 140 - 400 K/uL 01/09/2023 6:[address] [facility] MPV 8.9 6.6 - 11.1 fL 01/09/2023 6:27 AM EDT LABORATORY [facility] nRBCs 0 <=0 /100 WBCs 01/09/2023 6:[address] [facility] Blood Venous blood specimen / Unknown Venipuncture / Unknown 01/09/2023 6:21 AM EDT 01/09/2023 6:23 AM EDT Nery Collier PA-C LAB BLOOD ORDERABLES LABORATORY [facility] [address] [place] [address] * (ABNORMAL) BASIC METABOLIC PANEL (01/09/2023 6:21 AM EDT) BUN 26(H) 6 - 20 mg/dL 01/09/2023 6:43 AM EDT LABORATORY [facility] Creatinine 0.9 0.6 - 1.2 mg/dL 01/09/2023 6:43 AM EDT LABORATORY GL Estimated Glomerular Filtration Rate >90 >=60 mL/min 01/09/2023 6:43 AM EDT LABORATORY GL Comment:eGFR is calculated b ased on the CKD-EPI 2020 equation Sodium 144 135 - 146 mmol/L 01/09/2023 6:43 AM EDT LABORATORY [facility] Potassium 4.5 3.5 - 5.1 mmol/L 01/09/2023 6:43 AM EDT LABORATORY [facility] Chloride 110(H) 98 - 107 mmol/L 01/09/2023 6:43 AM EDT LABORATORY [facility] CO2 27 22 - 32 mmol/L 01/09/2023 6:43 AM EDT LABORATORY [facility] Anion Gap 7 7 - 15 mmol/L 01/09/2023 6:43 AM EDT LABORATORY GL Glucose 40(LL) 70 - 120 mg/dL 01/09/2023 6:43 AM EDT LABORATORY [facility] Calcium 9.5 8.4 - 10.2 mg/dL 01/09/2023 6:43 AM EDT LABORATORY GL Blood Venous blood specimen / Unknown Venipuncture / Unknown 01/09/2023 6:21 AM EDT 01/09/2023 6:23 AM EDT Nery Collier PA-C LAB BLOOD ORDERABLES Performing Organization Address City/[facility] Co de Phone Number LABORATORY [address] [id number] * (ABNORMAL) GLUCOSE METER, POINT OF CARE (01/09/2023 2:03 AM EDT) Glucose Meter 321(H) 70 - 120 mg/dL 01/09/2023 6:33 AM EDT [facility] Blood Whole blood specimen / Unknown 01/09/2023 2:03 AM EDT 01/09/2023 6:33 AM EDT Coco eJan MD LAB POINT OF CA RE TEST DOCKED DEVICE UNSOLICITED RESULTS Performing Organization Address [facility] de Phone Number [facility] [address] [place] [id number] * (ABNORMAL) GLUCOSE METER, POINT OF CARE (01/08/2023 7:13 PM EDT) Glucose Meter 206(H) 70 - 120 mg/dL 01/08/2023 7:15 PM EDT [facility] Blood Whole blood specimen / Unknown 01/08/2023 7:13 PM EDT 01/08/2023 7:15 PM EDT Coco Jean MD LAB POINT OF CA RE TEST DOCKED DEVICE UNSOLICITED RESULTS Performing Organization Address City/[facility] Co de Phone Number [facility] [address] [facility] [place] [address] * (ABNORMAL) GLUCOSE METER, POINT OF CARE (01/08/2023 4:55 PM EDT) Glucose Meter 202(H) 70 - 120 mg/dL 01/08/2023 5:18 PM EDT [facility] Blood Whole blood specimen / Unknown 01/08/2023 4:55 PM EDT 01/08/2023 5:18 PM EDT Coco Jean MD LAB POINT OF CA RE TEST DOCKED DEVICE UNSOLICITED RESULTS Performing Organization Address City/[facility]/ZIP Co de Phone Number [facility] [address] [facility] [place] [address] * (ABNORMAL) GLUCOSE METER, POINT OF CARE (01/08/2023 11:55 AM EDT) Glucose Meter 260(H) 70 - 120 mg/dL 01/08/2023 12:07 PM EDT [facility] Blood Whole blood specimen / Unknown 01/08/2023 11:55 AM EDT 01/08/2023 12:07 PM EDT Coco Jean MD LAB POINT OF CA RE TEST DOCKED DEVICE UNSOLICITED RESULTS Performing Organization Address City/[facility]/ZIP Co de Phone Number [facility] [address] [place] [address] * (ABNORMAL) GLUCOSE METER, POINT OF CARE (01/08/2023 8:02 AM EDT) Glucose Meter 224(H) 70 - 120 mg/dL 01/08/2023 9:10 AM EDT [facility] Blood Whole blood specimen / Unknown 01/08/2023 8:02 AM EDT 01/08/2023 9:10 AM EDT Coco Jean MD LAB POINT OF CA RE TEST DOCKED DEVICE UNSOLICITED RESULTS [facility] [address] [place] [address] * (ABNORMAL) GLUCOSE METER, POINT OF CARE (01/08/2023 6:55 AM EDT) Glucose Meter 35(LL) 70 - 120 mg/dL 01/08/2023 11:41 AM EDT [facility] Device Comment Notified Provider 01/08/2023 11:41 AM EDT [facility] Blood Whole blood specimen / Unknown 01/08/2023 6:55 AM EDT 01/08/2023 11:41 AM EDT Coco Jean MD LAB POINT OF CA RE TEST DOCKED DEVICE UNSOLICITED RESULTS Performing Organization Address City/[facility]/ZIP Co de Phone Number [facility] [address] [place] [address] * (ABNORMAL) GLUCOSE METER, POINT OF CARE (01/08/2023 2:31 AM EDT) Glucose Meter 147(H) 70 - 120 mg/dL 01/08/2023 2:33 AM EDT [facility] Blood Whole blood specimen / Unknown 01/08/2023 2:31 AM EDT 01/08/2023 2:33 AM EDT Coco Jean MD LAB POINT OF CA RE TEST DOCKED DEVICE UNSOLICITED RESULTS [facility] [address] [place] [address] * (ABNORMAL) GLUCOSE METER, POINT OF CARE (01/07/2023 7:23 PM EDT) Glucose Meter 202(H) 70 - 120 mg/dL 01/07/2023 7:25 PM EDT [facility] Blood Whole blood specimen / Unknown 01/07/2023 7:23 PM EDT 01/07/2023 7:25 PM EDT Coco Jean MD LAB POINT OF CA RE TEST DOCKED DEVICE UNSOLICITED RESULTS Performing Organization Address [facility] Co de Phone Number [facility] [address] [place] [address] * (ABNORMAL) GLUCOSE METER, POINT OF CARE (01/07/2023 4:22 PM EDT) Glucose Meter 307(H) 70 - 120 mg/dL 01/07/2023 4:24 PM EDT [facility] Blood Whole blood specimen / Unknown 01/07/2023 4:22 PM EDT 01/07/2023 4:24 PM EDT Coco Jean MD LAB POINT OF CA RE TEST DOCKED DEVICE UNSOLICITED RESULTS Performing Organization Address [facility] de Phone Number [facility] [address] [place] [address] * (ABNORMAL) GLUCOSE METER, POINT OF CARE (01/07/2023 11:17 AM EDT) Glucose Meter 155(H) 70 - 120 mg/dL 01/07/2023 11:19 AM EDT [facility] Blood Whole blood specimen / Unknown 01/07/2023 11:17 AM EDT 01/07/2023 11:19 AM EDT Coco Jean MD LAB POINT OF CA RE TEST DOCKED DEVICE UNSOLICITED RESULTS Performing Organization Address [facility] Co de Phone Number [facility] [address] [place] [address] * (ABNORMAL) GLUCOSE METER, POINT OF CARE (01/07/2023 7:18 AM EDT) Glucose Meter 134(H) 70 - 120 mg/dL 01/07/2023 7:23 AM EDT [facility] Blood Whole blood specimen / Unknown 01/07/2023 7:18 AM EDT 01/07/2023 7:23 AM EDT Coco Jean MD LAB POINT OF CA RE TEST DOCKED DEVICE UNSOLICITED RESULTS Performing Organization Address [facility] Co de Phone Number [facility] [address] [place] [address] * (ABNORMAL) GLUCOSE METER, POINT OF CARE (01/06/2023 7:29 PM EDT) Glucose Meter 303(H) 70 - 120 mg/dL 01/06/2023 7:31 PM EDT [facility] Blood Whole blood specimen / Unknown 01/06/2023 7:29 PM EDT 01/06/2023 7:31 PM EDT Coco Jean MD LAB POINT OF CA RE TEST DOCKED DEVICE UNSOLICITED RESULTS Performing Organization Address [facility] de Phone Number [facility] [address] [place] [address] * (ABNORMAL) GLUCOSE METER, POINT OF CARE (01/06/2023 4:29 PM EDT) Glucose Meter 191(H) 70 - 120 mg/dL 01/06/2023 4:32 PM EDT [facility] Blood Whole blood specimen / Unknown 01/06/2023 4:29 PM EDT 01/06/2023 4:32 PM EDT Coco Jean MD LAB POINT OF CA RE TEST DOCKED DEVICE UNSOLICITED RESULTS Performing Organization Address [facility] Co de Phone Number [facility] [address] [place] [address] * (ABNORMAL) GLUCOSE METER, POINT OF CARE (01/06/2023 11:29 AM EDT) Glucose Meter 123(H) 70 - 120 mg/dL 01/06/2023 11:31 AM EDT [facility] Blood Whole blood specimen / Unknown 01/06/2023 11:29 AM EDT 01/06/2023 11:31 AM EDT Coco Jean MD LAB POINT OF CA RE TEST DOCKED DEVICE UNSOLICITED RESULTS Performing Organization Address [facility] de Phone Number [facility] [address] [place] [address] * (ABNORMAL) GLUCOSE METER, POINT OF CARE (01/06/2023 7:19 AM EDT) Glucose Meter 138(H) 70 - 120 mg/dL 01/06/2023 7:22 AM EDT [facility] Blood Whole blood specimen / Unknown 01/06/2023 7:19 AM EDT 01/06/2023 7:22 AM EDT Coco Jean MD LAB POINT OF CA RE TEST DOCKED DEVICE UNSOLICITED RESULTS Performing Organization Address [facility] de Phone Number [facility] [address] [place] [address] * (ABNORMAL) GLUCOSE METER, POINT OF CARE (01/06/2023 3:33 AM EDT) Glucose Meter 202(H) 70 - 120 mg/dL 01/06/2023 3:35 AM EDT [facility] Blood Whole blood specimen / Unknown 01/06/2023 3:33 AM EDT 01/06/2023 3:35 AM EDT Coco Jean MD LAB POINT OF CA RE TEST DOCKED DEVICE UNSOLICITED RESULTS Performing Organization Address [facility] de Phone Number [facility] [address] [place] [address] * (ABNORMAL) GLUCOSE METER, POINT OF CARE (01/05/2023 8:15 PM EDT) Glucose Meter 221(H) 70 - 120 mg/dL 01/05/2023 8:17 PM EDT [facility] Blood Whole blood specimen / Unknown 01/05/2023 8:15 PM EDT 01/05/2023 8:17 PM EDT Coco Jean MD LAB POINT OF CA RE TEST DOCKED DEVICE UNSOLICITED RESULTS Performing Organization Address [facility] Co de Phone Number [facility] [address] [place] [address] * (ABNORMAL) GLUCOSE METER, POINT OF CARE (01/05/2023 4:25 PM EDT) Glucose Meter 177(H) 70 - 120 mg/dL 01/05/2023 4:28 PM EDT [facility] Blood Whole blood specimen / Unknown 01/05/2023 4:25 PM EDT 01/05/2023 4:28 PM EDT Coco Jean MD LAB POINT OF CA RE TEST DOCKED DEVICE UNSOLICITED RESULTS Performing Organization Address [facility] de Phone Number [facility] [address] [place] [address] * (ABNORMAL) GLUCOSE METER, POINT OF CARE (01/05/2023 2:55 PM EDT) Glucose Meter 62(L) 70 - 120 mg/dL 01/05/2023 4:28 PM EDT [facility] Blood Whole blood specimen / Unknown 01/05/2023 2:55 PM EDT 01/05/2023 4:28 PM EDT Coco Jean MD LAB POINT OF CA RE TEST DOCKED DEVICE UNSOLICITED RESULTS Performing Organization Address [facility] Co de Phone Number [facility] [address] [place] [address] * (ABNORMAL) GLUCOSE METER, POINT OF CARE (01/05/2023 11:02 AM EDT) Glucose Meter 427(H) 70 - 120 mg/dL 01/05/2023 11:04 AM EDT [facility] Blood Whole blood specimen / Unknown 01/05/2023 11:02 AM EDT 01/05/2023 11:04 AM EDT Coco Jean MD LAB POINT OF CA RE TEST DOCKED DEVICE UNSOLICITED RESULTS Performing Organization Address [facility] de Phone Number [facility] [address] [place] [address] * (ABNORMAL) GLUCOSE METER, POINT OF CARE (01/05/2023 7:18 AM EDT) Glucose Meter 251(H) 70 - 120 mg/dL 01/05/2023 7:22 AM EDT [facility] Blood Whole blood specimen / Unknown 01/05/2023 7:18 AM EDT 01/05/2023 7:22 AM EDT Coco Jean MD LAB POINT OF CA RE TEST DOCKED DEVICE UNSOLICITED RESULTS Performing Organization Address [facility] de Phone Number [facility] [address] [place] [address] * (ABNORMAL) GLUCOSE METER, POINT OF CARE (01/05/2023 2:34 AM EDT) Glucose Meter 232(H) 70 - 120 mg/dL 01/05/2023 2:36 AM EDT [facility] Blood Whole blood specimen / Unknown 01/05/2023 2:34 AM EDT 01/05/2023 2:36 AM EDT Coco Jean MD LAB POINT OF CA RE TEST DOCKED DEVICE UNSOLICITED RESULTS Performing Organization Address [facility] Co de Phone Number [facility] [address] [place] [address] * (ABNORMAL) GLUCOSE METER, POINT OF CARE (01/04/2023 7:44 PM EDT) Glucose Meter 203(H) 70 - 120 mg/dL 01/04/2023 7:46 PM EDT [facility] Blood Whole blood specimen / Unknown 01/04/2023 7:44 PM EDT 01/04/2023 7:46 PM EDT Coco Jean MD LAB POINT OF CA RE TEST DOCKED DEVICE UNSOLICITED RESULTS Performing Organization Address [facility] Co de Phone Number [facility] [address] [place] [address] * (ABNORMAL) GLUCOSE METER, POINT OF CARE (01/04/2023 4:30 PM EDT) Glucose Meter 234(H) 70 - 120 mg/dL 01/04/2023 4:32 PM EDT [facility] Blood Whole blood specimen / Unknown 01/04/2023 4:30 PM EDT 01/04/2023 4:32 PM EDT Coco Jean MD LAB POINT OF CA RE TEST DOCKED DEVICE UNSOLICITED RESULTS Performing Organization Address [facility] de Phone Number [facility] [address] [place] [address] * (ABNORMAL) GLUCOSE METER, POINT OF CARE (01/04/2023 4:05 PM EDT) Glucose Meter 180(H) 70 - 120 mg/dL 01/04/2023 4:32 PM EDT [facility] Blood Whole blood specimen / Unknown 01/04/2023 4:05 PM EDT 01/04/2023 4:32 PM EDT Coco Jean MD LAB POINT OF CA RE TEST DOCKED DEVICE UNSOLICITED RESULTS Performing Organization Address [facility] de Phone Number [facility] [address] [place] [address] * (ABNORMAL) GLUCOSE METER, POINT OF CARE (01/04/2023 3:18 PM EDT) Glucose Meter 50(L) 70 - 120 mg/dL 01/04/2023 3:22 PM EDT [facility] Blood Whole blood specimen / Unknown 01/04/2023 3:18 PM EDT 01/04/2023 3:22 PM EDT Coco Jean MD LAB POINT OF CA RE TEST DOCKED DEVICE UNSOLICITED RESULTS Performing Organization Address [facility] de Phone Number [facility] [address] [place] [address] * (ABNORMAL) GLUCOSE METER, POINT OF CARE (01/04/2023 11:59 AM EDT) Glucose Meter 227(H) 70 - 120 mg/dL 01/04/2023 3:22 PM EDT [facility] Blood Whole blood specimen / Unknown 01/04/2023 11:59 AM EDT 01/04/2023 3:22 PM EDT Coco Jean MD LAB POINT OF CA RE TEST DOCKED DEVICE UNSOLICITED RESULTS Performing Organization Address [facility] de Phone Number [facility] [address] [place] [address] * (ABNORMAL) T4, FREE (01/04/2023 9:42 AM EDT) T4, Free 0.7(L) 0.9 - 1.7 ng/dL 01/04/2023 1:[address] [facility] Blood Venous blood specimen / Unknown Venipuncture / Unknown 01/04/2023 9:42 AM EDT 01/04/2023 10:03 AM EDT Jordy Chowdhury DO LAB BLOOD ORDERAB LES Performing Organization Address [facility] Co de Phone Number [facility]ATORY [facility] [address] [place] [phone] * (ABNORMAL) TSH WITH FREE T4 IF INDICATED (01/04/2023 9:42 AM EDT) TSH 60.20(H) 0.27 - 4.20 uIU/mL 01/04/2023 12:[address] [facility] Blood Venous blood specimen / Unknown Venipuncture / Unknown 01/04/2023 9:42 AM EDT 01/04/2023 10:03 AM EDT Jordy Chowdhury DO LAB BLOOD ORDERAB LES LABORATORY GL [address] [place] [address] * (ABNORMAL) BASIC METABOLIC PANEL (01/04/2023 9:42 AM EDT) BUN 29(H) 6 - 20 mg/dL 01/04/2023 10:28 AM EDT LABORATORY GL Creatinine 1.0 0.6 - 1.2 mg/dL 01/04/2023 10:28 AM EDT LAB[facility]ATORY [facility] Estimated Glomerular Filtration Rate >90 >=60 mL/min 01/04/2023 10:28 AM EDT LAB[facility]ATORY [facility] Comment:eGFR is calculated b ased on the CKD-EPI 2020 equation Sodium 133(L) 135 - 146 mmol/L 01/04/2023 10:28 AM EDT LAB[facility]ATORY [facility] Potassium 4.3 3.5 - 5.1 mmol/L 01/04/2023 10:28 AM EDT LAB[facility]ATORY [facility] Chloride 100 98 - 107 mmol/L 01/04/2023 10:28 AM EDT LAB[facility]ATORY [facility] CO2 24 22 - 32 mmol/L 01/04/2023 10:28 AM EDT LABORATORY [facility] Anion Gap 9 7 - 15 mmol/L 01/04/2023 10:28 AM EDT LAB[facility]ATORY [facility] Glucose 575(HH) 70 - 120 mg/dL 01/04/2023 10:28 AM EDT LAB[facility]ATORY [facility] Calcium 8.9 8.4 - 10.2 mg/dL 01/04/2023 10:28 AM EDT LABORATORY GL Blood Venous blood specimen / Unknown Venipuncture / Unknown 01/04/2023 9:42 AM EDT 01/04/2023 10:03 AM EDT Jordy Chowdhury DO LAB BLOOD ORDERAB LES LABORATORY GL [address] [place] [address] * (ABNORMAL) GLUCOSE METER, POINT OF CARE (01/04/2023 9:25 AM EDT) Glucose Meter >500(HH) 70 - 120 mg/dL 01/04/2023 10:59 AM EDT [facility] Device Comment Notified Provider 01/04/2023 10:59 AM EDT [facility] Blood Whole blood specimen / Unknown 01/04/2023 9:25 AM EDT 01/04/2023 10:59 AM EDT Coco Jean MD LAB POINT OF CA RE TEST DOCKED DEVICE UNSOLICITED RESULTS Performing Organization Address City/[facility]/ZIP Co de Phone Number [facility] [address] [place] [address] * (ABNORMAL) GLUCOSE METER, POINT OF CARE (01/04/2023 7:43 AM EDT) Glucose Meter 338(H) 70 - 120 mg/dL 01/04/2023 7:47 AM EDT [facility] Blood Whole blood specimen / Unknown 01/04/2023 7:43 AM EDT 01/04/2023 7:47 AM EDT Coco Jean MD LAB POINT OF CA RE TEST DOCKED DEVICE UNSOLICITED RESULTS Performing Organization Address [facility] Co de Phone Number [facility] [address] [place] [address] * (ABNORMAL) GLUCOSE METER, POINT OF CARE (01/03/2023 11:28 PM EDT) Glucose Meter 309(H) 70 - 120 mg/dL 01/03/2023 11:30 PM EDT [facility] Blood Whole blood specimen / Unknown 01/03/2023 11:28 PM EDT 01/03/2023 11:30 PM EDT Coco Jean MD LAB POINT OF CA RE TEST DOCKED DEVICE UNSOLICITED RESULTS Performing Organization Address City/[facility] Co de Phone Number [facility] [address] [place] [address] * (ABNORMAL) GLUCOSE METER, POINT OF CARE (01/03/2023 10:26 PM EDT) Glucose Meter 417(H) 70 - 120 mg/dL 01/03/2023 10:29 PM EDT [facility] Blood Whole blood specimen / Unknown 01/03/2023 10:26 PM EDT 01/03/2023 10:29 PM EDT Coco Jean MD LAB POINT OF CA RE TEST DOCKED DEVICE UNSOLICITED RESULTS Performing Organization Address City/[facility]/ZIP Co de Phone Number [facility] [address] [place] [address] * (ABNORMAL) GLUCOSE METER, POINT OF CARE (01/03/2023 9:34 PM EDT) Glucose Meter >500(HH) 70 - 120 mg/dL 01/04/2023 9:03 AM T [facility] Device Comment Notified Provider 01/04/2023 9:03 AM T [facility] Blood Whole blood specimen / Unknown 01/03/2023 9:34 PM EDT 01/04/2023 9:02 AM EDT Coco Jean MD LAB POINT OF CA RE TEST DOCKED DEVICE UNSOLICITED RESULTS Performing Organization Address [facility] Co de Phone Number [facility] [address] [place] [address] * (ABNORMAL) GLUCOSE METER, POINT OF CARE (01/03/2023 8:12 PM EDT) Glucose Meter 353(H) 70 - 120 mg/dL 01/03/2023 8:16 PM EDT [facility] Blood Whole blood specimen / Unknown 01/03/2023 8:12 PM EDT 01/03/2023 8:16 PM EDT Coco Jean MD LAB POINT OF CA RE TEST DOCKED DEVICE UNSOLICITED RESULTS [facility] [address] [facility] [place] [address] * GLUCOSE METER, POINT OF CARE (01/03/2023 4:47 PM EDT) Glucose Meter 75 70 - 120 mg/dL 01/03/2023 4:55 PM EDT [facility] Blood Whole blood specimen / Unknown 01/03/2023 4:47 PM EDT 01/03/2023 4:55 PM EDT Coco Jean MD LAB POINT OF CA RE TEST DOCKED DEVICE UNSOLICITED RESULTS Performing Organization Address [facility] Co de Phone Number [facility] [address] [place] [address] * (ABNORMAL) GLUCOSE METER, POINT OF CARE (01/03/2023 4:31 PM EDT) Glucose Meter 63(L) 70 - 120 mg/dL 01/03/2023 4:35 PM EDT [facility] Blood Whole blood specimen / Unknown 01/03/2023 4:31 PM EDT 01/03/2023 4:35 PM EDT Coco Jean MD LAB POINT OF CA RE TEST DOCKED DEVICE UNSOLICITED RESULTS Performing Organization Address [facility] Co de Phone Number [facility] [address] [place] [address] * (ABNORMAL) GLUCOSE METER, POINT OF CARE (01/03/2023 12:03 PM EDT) Glucose Meter 260(H) 70 - 120 mg/dL 01/03/2023 12:09 PM EDT [facility] Blood Whole blood specimen / Unknown 01/03/2023 12:03 PM EDT 01/03/2023 12:09 PM EDT Coco Jean MD LAB POINT OF CA RE TEST DOCKED DEVICE UNSOLICITED RESULTS Performing Organization Address City/[facility] Co de Phone Number [facility] [address] [place] [address] * (ABNORMAL) GLUCOSE METER, POINT OF CARE (01/03/2023 7:16 AM EDT) Glucose Meter 312(H) 70 - 120 mg/dL 01/03/2023 7:28 AM EDT [facility] Blood Whole blood specimen / Unknown 01/03/2023 7:16 AM EDT 01/03/2023 7:28 AM EDT Coco Jean MD LAB POINT OF CA RE TEST DOCKED DEVICE UNSOLICITED RESULTS Performing Organization Address City/[facility]/ZIP Co de Phone Number [facility] [address] [place] [address] * (ABNORMAL) GLUCOSE METER, POINT OF CARE (01/02/2023 8:48 PM EDT) Glucose Meter 308(H) 70 - 120 mg/dL 01/02/2023 9:25 PM EDT [facility] Blood Whole blood specimen / Unknown 01/02/2023 8:48 PM EDT 01/02/2023 9:25 PM EDT Coco Jean MD LAB POINT OF CA RE TEST DOCKED DEVICE UNSOLICITED RESULTS Performing Organization Address City/[facility]/ZIP Co de Phone Number [facility] [address] [place] [address] * (ABNORMAL) GLUCOSE METER, POINT OF CARE (01/02/2023 4:57 PM EDT) Glucose Meter 327(H) 70 - 120 mg/dL 01/02/2023 5:18 PM EDT [facility] Blood Whole blood specimen / Unknown 01/02/2023 4:57 PM EDT 01/02/2023 5:18 PM EDT Coco Jean MD LAB POINT OF CA RE TEST DOCKED DEVICE UNSOLICITED RESULTS Performing Organization Address City/[facility]/ZIP Co de Phone Number [facility] [address] [place] [address] * (ABNORMAL) GLUCOSE METER, POINT OF CARE (01/02/2023 11:40 AM EDT) Glucose Meter 333(H) 70 - 120 mg/dL 01/02/2023 11:46 AM EDT [facility] Blood Whole blood specimen / Unknown 01/02/2023 11:40 AM EDT 01/02/2023 11:46 AM EDT Coco Jean MD LAB POINT OF CA RE TEST DOCKED DEVICE UNSOLICITED RESULTS Performing Organization Address City/[facility]/ZIP Co de Phone Number [facility] [address] [place] [address] * (ABNORMAL) GLUCOSE METER, POINT OF CARE (01/02/2023 7:33 AM EDT) Glucose Meter 313(H) 70 - 120 mg/dL 01/02/2023 7:38 AM EDT [facility] Blood Whole blood specimen / Unknown 01/02/2023 7:33 AM EDT 01/02/2023 7:38 AM EDT Coco Jean MD LAB POINT OF CA RE TEST DOCKED DEVICE UNSOLICITED RESULTS Performing Organization Address City/[facility] Co de Phone Number [facility] [address] [place] [address] * CLOSTRIDIUM DIFFICILE, PCR (01/01/2023 10:05 PM EDT) Stool Consistency Semi-liquid 01/01/2023 11:[address] [facility] Clostridium difficile Result Negative. No C. difficile toxin B gene DNA detected by PCR (Amplified Probe). Negative 01/01/2023 11:07 PM EDT LABORATORY GL Stool Stool specimen / Unknown 01/01/2023 10:05 PM EDT 01/01/2023 10:05 PM EDT Jose Cleveland Jr., MD LAB MICRO - GENERAL ORDERABLES Performing Organization Address [facility] de Phone Number [facility]ATORY [facility] [address] [place], [place] [id number] * (ABNORMAL) GLUCOSE METER, POINT OF CARE (01/01/2023 8:20 PM EDT) Glucose Meter 249(H) 70 - 120 mg/dL 01/01/2023 8:22 PM EDT [facility] Blood Whole blood specimen / Unknown 01/01/2023 8:20 PM EDT 01/01/2023 8:22 PM EDT Coco Jean MD LAB POINT OF CA RE TEST DOCKED DEVICE UNSOLICITED RESULTS Performing Organization Address [facility] de Phone Number [facility] [address] [place] [address] * (ABNORMAL) GLUCOSE METER, POINT OF CARE (01/01/2023 4:50 PM EDT) Glucose Meter 225(H) 70 - 120 mg/dL 01/01/2023 4:54 PM EDT [facility] Blood Whole blood specimen / Unknown 01/01/2023 4:50 PM EDT 01/01/2023 4:54 PM EDT Coco Jean MD LAB POINT OF CA RE TEST DOCKED DEVICE UNSOLICITED RESULTS Performing Organization Address [facility] de Phone Number [facility] [address] [place] [id number] * (ABNORMAL) GLUCOSE METER, POINT OF CARE (01/01/2023 11:38 AM EDT) Glucose Meter 419(H) 70 - 120 mg/dL 01/01/2023 11:44 AM EDT [facility] Blood Whole blood specimen / Unknown 01/01/2023 11:38 AM EDT 01/01/2023 11:44 AM EDT Coco Jean MD LAB POINT OF CA RE TEST DOCKED DEVICE UNSOLICITED RESULTS Performing Organization Address [facility] Co de Phone Number [facility] [address] [place] [address] * (ABNORMAL) GLUCOSE METER, POINT OF CARE (01/01/2023 7:25 AM EDT) Glucose Meter 356(H) 70 - 120 mg/dL 01/01/2023 7:34 AM EDT [facility] Blood Whole blood specimen / Unknown 01/01/2023 7:25 AM EDT 01/01/2023 7:34 AM EDT Coco Jean MD LAB POINT OF CA RE TEST DOCKED DEVICE UNSOLICITED RESULTS Performing Organization Address [facility] de Phone Number [facility] [address] [place] [address] * (ABNORMAL) GLUCOSE METER, POINT OF CARE (12/31/2022 8:05 PM EDT) Glucose Meter 300(H) 70 - 120 mg/dL 12/31/2022 8:35 PM EDT [facility] Blood Whole blood specimen / Unknown 12/31/2022 8:05 PM EDT 12/31/2022 8:35 PM EDT Coco Jean MD LAB POINT OF CA RE TEST DOCKED DEVICE UNSOLICITED RESULTS Performing Organization Address [facility] de Phone Number [facility] [address] [place] [address] * (ABNORMAL) GLUCOSE METER, POINT OF CARE (12/31/2022 4:40 PM EDT) Glucose Meter 254(H) 70 - 120 mg/dL 12/31/2022 4:44 PM EDT [facility] Blood Whole blood specimen / Unknown 12/31/2022 4:40 PM EDT 12/31/2022 4:44 PM EDT Coco Jean MD LAB POINT OF CA RE TEST DOCKED DEVICE UNSOLICITED RESULTS Performing Organization Address [facility] Co de Phone Number [facility] [address] [place] [address] * (ABNORMAL) GLUCOSE METER, POINT OF CARE (12/31/2022 11:39 AM EDT) Glucose Meter 281(H) 70 - 120 mg/dL 12/31/2022 11:46 AM EDT [facility] Blood Whole blood specimen / Unknown 12/31/2022 11:39 AM EDT 12/31/2022 11:46 AM EDT Coco Jean MD LAB POINT OF CA RE TEST DOCKED DEVICE UNSOLICITED RESULTS Performing Organization Address [facility] de Phone Number [facility] [address] [place] [address] * (ABNORMAL) GLUCOSE METER, POINT OF CARE (12/31/2022 7:34 AM EDT) Glucose Meter 132(H) 70 - 120 mg/dL 12/31/2022 7:40 AM EDT [facility] Blood Whole blood specimen / Unknown 12/31/2022 7:34 AM EDT 12/31/2022 7:40 AM EDT Coco Jean MD LAB POINT OF CA RE TEST DOCKED DEVICE UNSOLICITED RESULTS Performing Organization Address [facility] Co de Phone Number [facility] [address] [place] [address] * (ABNORMAL) GLUCOSE METER, POINT OF CARE (12/30/2022 8:06 PM EDT) Glucose Meter 243(H) 70 - 120 mg/dL 12/30/2022 8:17 PM EDT [facility] Blood Whole blood specimen / Unknown 12/30/2022 8:06 PM EDT 12/30/2022 8:16 PM EDT Coco Jean MD LAB POINT OF CA RE TEST DOCKED DEVICE UNSOLICITED RESULTS Performing Organization Address [facility] Co de Phone Number [facility] [address] [place] [address] * (ABNORMAL) GLUCOSE METER, POINT OF CARE (12/30/2022 4:50 PM EDT) Glucose Meter 165(H) 70 - 120 mg/dL 12/30/2022 5:01 PM EDT [facility] Blood Whole blood specimen / Unknown 12/30/2022 4:50 PM EDT 12/30/2022 5:01 PM EDT Coco Jean MD LAB POINT OF CA RE TEST DOCKED DEVICE UNSOLICITED RESULTS Performing Organization Address [facility] de Phone Number [facility] [address] [place] [address] * (ABNORMAL) GLUCOSE METER, POINT OF CARE (12/30/2022 11:59 AM EDT) Glucose Meter 134(H) 70 - 120 mg/dL 12/30/2022 12:03 PM EDT [facility] Blood Whole blood specimen / Unknown 12/30/2022 11:59 AM EDT 12/30/2022 12:03 PM EDT Coco Jean MD LAB POINT OF CA RE TEST DOCKED DEVICE UNSOLICITED RESULTS Performing Organization Address [facility] Co de Phone Number [facility] [address] [place] [address] * (ABNORMAL) GLUCOSE METER, POINT OF CARE (12/30/2022 7:55 AM EDT) Glucose Meter 158(H) 70 - 120 mg/dL 12/30/2022 9:25 AM EDT [facility] Blood Whole blood specimen / Unknown 12/30/2022 7:55 AM EDT 12/30/2022 9:25 AM EDT Coco Jean MD LAB POINT OF CA RE TEST DOCKED DEVICE UNSOLICITED RESULTS Performing Organization Address [facility] Co de Phone Number [facility] [address] [place] [address] * (ABNORMAL) GLUCOSE METER, POINT OF CARE (12/29/2022 8:04 PM EDT) Glucose Meter 138(H) 70 - 120 mg/dL 12/29/2022 8:07 PM EDT [facility] Blood Whole blood specimen / Unknown 12/29/2022 8:04 PM EDT 12/29/2022 8:07 PM EDT Coco Jean MD LAB POINT OF CA RE TEST DOCKED DEVICE UNSOLICITED RESULTS Performing Organization Address [facility] de Phone Number [facility] [address] [place] [address] * GLUCOSE METER, POINT OF CARE (12/29/2022 4:07 PM EDT) Glucose Meter 80 70 - 120 mg/dL 12/30/2022 6:24 AM EDT [facility] Blood Whole blood specimen / Unknown 12/29/2022 4:07 PM EDT 12/30/2022 6:24 AM EDT Coco Jean MD LAB POINT OF CA RE TEST DOCKED DEVICE UNSOLICITED RESULTS Performing Organization Address [facility] Phone Number [facility] [address] [place] [address] * INFLUENZA A/B RSV SARS-COV2,PCR (12/29/2022 1:45 PM EDT) SARS-CoV-2 (COVID-19) Result Negative Negative 12/29/2022 2:[address] [facility] Comment: No SARS-CoV2 Coronavirus RNA detected by PCR (amplified probe). This express test was developed and its performance characteristics determined by [employer]. It has not been cleared or approved by the U.S. Food and Drug Administration (FDA). FDA does not require this test to go thru premarket FDA review. This test is used for clinical purposes. It should not be regarded as investigational or for research. This laboratory is certified under the Clinical Laboratory Improvement Amendments (CLIA) as qualified to perform high complexity clinical laboratory testing. This test is a nucleic acid amplification test (NAAT), a reverse transcriptase polymerase chain reaction (RT-PCR) test, or a Centers for Disease Control- acceptable equivalent. The test is performed in a high complexity Clinical Laboratory Improvement Amendments-(CLIA) certified laboratory. The test is acceptable for SARS-CoV-2 diagnosis, surveillance, and travel within the [place] and to most countries. Please check with local testing authorities about requirements before travel. The validation of bronchial specimens, tracheal aspirates, and sputum for this assay was developed and performance characteristics determined by [employer]. The validation of alternate specimen types has not been cleared or approved by the U.S. Food and Drug Administration (FDA). It has been determined that such clearance is not necessary. Influenza A PCR Result Negative Negative 12/29/2022 2:[address] [facility] Comment:No Influenza A RNA d etected by PCR (amplified probe) Influenza B PCR Result Negative Negative 12/29/2022 2:[address] [facility] Comment:No Influenza B RNA d etected by PCR (amplified probe) RSV PCR Result Negative Negative 12/29/2022 2:[address] [facility] Comment:No Respiratory Syncy tial Virus RNA detected by PCR (amplified probe) Upper Respiratory Mid-turbinate nasal swab / Unknown Non-blood Collection / Unknown 12/29/2022 1:45 PM EDT 12/29/2022 1:49 PM EDT Marlon Banda MD LAB MICRO - GENERAL ORDERABLES LABORATORY [address] [address] * (ABNORMAL) LIPID PANEL WITH DIRECT LDL IF TG IS HIGH (12/29/2022 12:05 PM EDT) Triglycerides 96 <=174 mg/dL 12/30/2022 2:59 PM EDT [facility]AT[facility] Comment: Triglyceride Reference Ranges (mg/dL): <150 Acceptable 150-174 Borderline high 175-499 High >=500 Very high Cholesterol 196 <200 mg/dL 12/30/2022 2:59 PM EDT [facility] Comment: Total Cholesterol Reference Ranges (mg/dL): <200 Desirable 200-239 Borderline high >=240 High HDL Cholesterol 43 >39 mg/dL 2:59 PM EDT LAB[facility]ATORY [facility] Comment: HDL Cholesterol Reference Ranges (mg/dL): >=60 High (Desirable) <50 Low (Undesirable) For Females <40 Low (Undesirable) For Males Non-HDL Cholesterol 153 <=159 mg/dL 12/30/2022 2:59 PM EDT LAB[facility]ATORY [facility] Comment: Non-HDL Cholesterol Reference Range (mg/dL): <100 Target level for high risk ASCVD patient <130 Optimal for general population 130-159 Near optimal for general population 160-189 Borderline High 190-219 High >=220 Very High LDL Cholesterol 134(H) <=129 mg/dL 12/30/2022 2:59 PM EDT LAB[facility]ORY [facility] Comment: LDL Cholesterol Reference Ranges (mg/dL): <70 Target level for high risk ASCVD patient <100 Optimal for general population 100-129 Near optimal for general population 130-159 Borderline high 160-189 High >=190 Very high Blood Venous blood specimen / Unknown Venipuncture / Unknown 12/29/2022 12:05 PM EDT 12/29/2022 12:09 PM EDT Carlos Martínez MD LAB BLOOD ORDERABLES Performing Organization Address City/State/[facility] Co de Phone Number LABORATORY [facility] [address] [place] [address] * (ABNORMAL) BASIC METABOLIC PANEL (12/29/2022 12:05 PM EDT) BUN 22(H) 6 - 20 mg/dL 12/29/2022 12:41 PM EDT [facility] Creatinine 1.0 0.6 - 1.2 mg/dL 12/29/2022 12:41 PM EDT [facility] Estimated Glomerular Filtration Rate >90 >=60 mL/min 12/29/2022 12:41 PM EDT [facility] Comment:eGFR is calculated b ased on the CKD-EPI 2020 equation Sodium 138 135 - 146 mmol/L 12/29/2022 12:41 PM EDT [facility] Potassium 4.5 3.5 - 5.1 mmol/L 12/29/2022 12:41 PM EDT [facility] Chloride 102 98 - 107 mmol/L 12/29/2022 12:41 PM EDT [facility] CO2 28 22 - 32 mmol/L 12/29/2022 12:41 PM EDT [facility] Anion Gap 8 7 - 15 mmol/L 12/29/2022 12:41 PM EDT [facility] Glucose 148(H) 70 - 120 mg/dL 12/29/2022 12:41 PM EDT [facility] Calcium 8.6 8.4 - 10.2 mg/dL 12/29/2022 12:41 PM EDT [facility] Blood Venous blood specimen / Unknown Venipuncture / Unknown 12/29/2022 12:05 PM EDT 12/29/2022 12:09 PM EDT Marlon Banda MD LAB BLOOD ORDERABLES LABORATORY [address] [address] * (ABNORMAL) GLUCOSE METER, POINT OF CARE (12/29/2022 11:56 AM EDT) Glucose Meter 139(H) 70 - 120 mg/dL 12/29/2022 12:01 PM EDT [facility] Blood Whole blood specimen / Unknown 12/29/2022 11:56 AM EDT 12/29/2022 12:01 PM EDT Marlon Banda MD LAB POINT OF CARE TE ST DOCKED DEVICE UNSOLICITED RESULTS Performing Organization Address [facility]/ZIP Co de Phone Number [facility] [address] [place] [address] * (ABNORMAL) GLUCOSE METER, POINT OF CARE (12/29/2022 8:17 AM EDT) Glucose Meter 185(H) 70 - 120 mg/dL 12/29/2022 12:13 PM EDT [facility] Blood Whole blood specimen / Unknown 12/29/2022 8:17 AM EDT 12/29/2022 12:13 PM EDT Marlon Banda MD LAB POINT OF CARE TE ST DOCKED DEVICE UNSOLICITED RESULTS Performing Organization Address [facility] Co de Phone Number [facility] [address] [place] [address] * (ABNORMAL) HEMOGLOBIN A1C (12/29/2022 5:17 AM EDT) Hemoglobin A1C 11.3(H) 4.0 - 5.6 % 12/30/2022 2:32 PM EDT LABORATORY [facility] Comment:The use of HbA1c to monitor glycemic status is based on normal hemoglobin and HbA composition. This test should not be used in patients with abnormal hemoglobin that affects the half life of the red blood cell or the in vivo glycation rates. Estimated Average Glucose 278(H) <126 mg/dL 12/30/2022 2:32 PM EDT [facility]ORY [facility] Blood Venous blood specimen / Unknown Venipuncture / Unknown 12/29/2022 5:17 AM EDT 12/29/2022 5:38 AM EDT Carlos Martínez MD LAB BLOOD ORDERABLES Performing Organization Address City/[facility] Co de Phone Number LABORATORY [facility] [address] [place], [place] [id number] * (ABNORMAL) BASIC METABOLIC PANEL (12/29/2022 5:17 AM EDT) BUN 22(H) 6 - 20 mg/dL 12/29/2022 5:59 AM EDT [facility] Creatinine 1.2 0.6 - 1.2 mg/dL 12/29/2022 5:59 AM EDT [facility] Estimated Glomerular Filtration Rate 84 >=60 mL/min 12/29/2022 5:59 AM EDT [facility] Comment:eGFR is calculated b ased on the CKD-EPI 2020 equation Sodium 141 135 - 146 mmol/L 12/29/2022 5:59 AM EDT [facility]ORY [facility] Potassium 5.3(H) 3.5 - 5.1 mmol/L 12/29/2022 5:59 AM EDT [facility]ORY [facility] Chloride 103 98 - 107 mmol/L 12/29/2022 5:59 AM EDT [facility] CO2 33(H) 22 - 32 mmol/L 12/29/2022 5:59 AM EDT [facility] Anion Gap 5(L) 7 - 15 mmol/L 12/29/2022 5:59 AM EDT [facility]ORY [facility] Glucose 167(H) 70 - 120 mg/dL 12/29/2022 5:59 AM EDT [facility]ORY [facility] Calcium 8.9 8.4 - 10.2 mg/dL 12/29/2022 5:59 AM EDT [facility] Blood Venous blood specimen / Unknown Venipuncture / Unknown 12/29/2022 5:17 AM EDT 12/29/2022 5:38 AM EDT Rafael Rao MD LAB BLOOD ORD ERABLES LABORATORY [address] [address] * (ABNORMAL) CBC (12/29/2022 5:17 AM EDT) WBC 10.48 4.00 - 10.80 K/uL 12/29/2022 5:43 AM EDT LABORATORY GL RBC 3.50 4.50 - 5.25 M/uL 12/29/2022 5:43 AM EDT LAB[facility]ORY [facility] HGB 10.7(L) 14.0 - 16.8 g/dL 12/29/2022 5:43 AM EDT LAB[facility]ATORY [facility] HCT 33.7(L) 40.0 - 48.4 % 12/29/2022 5:43 AM EDT LAB[facility]ATORY [facility] MCV 96.3 82.0 - 99.5 fL 12/29/2022 5:43 AM EDT LAB[facility]ORY [facility] MCH 30.6 27.0 - 34.0 pg 12/29/2022 5:43 AM EDT LAB[facility]ORY [facility] MCHC 31.8 32.0 - 36.0 g/dL 12/29/2022 5:[address] [facility] RDW 13.7 11.5 - 15.5 % 12/29/2022 5:[address] [facility] PLT 349 140 - 400 K/uL 12/29/2022 5:[address] [facility] MPV 8.9 6.6 - 11.1 fL 12/29/2022 5:[address] [facility] nRBCs 0 <=0 /100 WBCs 12/29/2022 5:[address] [facility] Blood Venous blood specimen / Unknown Venipuncture / Unknown 12/29/2022 5:17 AM EDT 12/29/2022 5:38 AM EDT Rafael Rao MD LAB BLOOD ORD ERABLES Performing Organization Address City/[facility]/ZIP Co de Phone Number LABORATORY [address] [address] * (ABNORMAL) GLUCOSE METER, POINT OF CARE (12/28/2022 9:37 PM EDT) Glucose Meter 204(H) 70 - 120 mg/dL 12/28/2022 9:39 PM EDT [facility] Blood Whole blood specimen / Unknown 12/28/2022 9:37 PM EDT 12/28/2022 9:39 PM EDT Marlon Banda MD LAB POINT OF CARE TE ST DOCKED DEVICE UNSOLICITED RESULTS [facility] [address] [place] [address] * (ABNORMAL) GLUCOSE METER, POINT OF CARE (12/28/2022 4:08 PM EDT) Glucose Meter 155(H) 70 - 120 mg/dL 12/28/2022 4:13 PM EDT [facility] Blood Whole blood specimen / Unknown 12/28/2022 4:08 PM EDT 12/28/2022 4:13 PM EDT Marlon Banda MD LAB POINT OF CARE TE ST DOCKED DEVICE UNSOLICITED RESULTS Performing Organization Address [facility]/ZIP Co de Phone Number [facility] [address] [facility] [address] * GLUCOSE METER, POINT OF CARE (12/28/2022 12:32 PM EDT) Glucose Meter 89 70 - 120 mg/dL 12/28/2022 4:13 PM EDT [facility] Blood Whole blood specimen / Unknown 12/28/2022 12:32 PM EDT 12/28/2022 4:13 PM EDT Marlon Banda MD LAB POINT OF CARE TE ST DOCKED DEVICE UNSOLICITED RESULTS Performing Organization Address [facility] de Phone Number [facility] [address] [facility] [place] [address] * (ABNORMAL) GLUCOSE METER, POINT OF CARE (12/28/2022 12:11 PM EDT) Glucose Meter 54(L) 70 - 120 mg/dL 12/28/2022 4:13 PM EDT [facility] Blood Whole blood specimen / Unknown 12/28/2022 12:11 PM EDT 12/28/2022 4:13 PM EDT Marlon Banda MD LAB POINT OF CARE TE ST DOCKED DEVICE UNSOLICITED RESULTS Performing Organization Address [facility] Co de Phone Number [facility] [address] [facility] [place] [address] * (ABNORMAL) GLUCOSE METER, POINT OF CARE (12/28/2022 11:13 AM EDT) Glucose Meter 141(H) 70 - 120 mg/dL 12/28/2022 4:12 PM EDT [facility] Blood Whole blood specimen / Unknown 12/28/2022 11:13 AM EDT 12/28/2022 4:12 PM EDT Marlon Banda MD LAB POINT OF CARE TE ST DOCKED DEVICE UNSOLICITED RESULTS Performing Organization Address [facility] Co de Phone Number [facility] [address] [place] [address] * (ABNORMAL) GLUCOSE METER, POINT OF CARE (12/28/2022 7:41 AM EDT) Glucose Meter 284(H) 70 - 120 mg/dL 12/28/2022 8:15 AM EDT [facility] Blood Whole blood specimen / Unknown 12/28/2022 7:41 AM EDT 12/28/2022 8:15 AM EDT Marlon Banda MD LAB POINT OF CARE TE ST DOCKED DEVICE UNSOLICITED RESULTS Performing Organization Address [facility] de Phone Number [facility] [address] [place] [address] * (ABNORMAL) HEPATIC FUNCTION PANEL (12/28/2022 4:42 AM EDT) Albumin 3.5(L) 3.8 - 5.0 g/dL 12/28/2022 10:18 AM EDT LABORATORY [facility] AST 43 10 - 50 U/L 12/28/2022 10:18 AM EDT LABORATORY [facility] Alkaline Phosphatase 97 35 - 130 U/L 12/28/2022 10:18 AM EDT LABORATORY [facility] ALT 123(H) 10 - 50 U/L 12/28/2022 10:18 AM EDT LAB[facility]ATORY [facility] Bilirubin, Total 0.2 <=1.2 mg/dL 12/28/2022 10:18 AM EDT LABORATORY [facility] Bilirubin, Direct <0.2 0.0 - 0.3 mg/dL 12/28/2022 10:18 AM EDT LAB[facility]ATORY [facility] Protein 6.5 6.0 - 8.3 g/dL 12/28/2022 10:18 AM EDT LAB[facility]ATORY [facility] Blood Venous blood specimen / Unknown Venipuncture / Unknown 12/28/2022 4:42 AM EDT 12/28/2022 4:52 AM EDT Marlon Banda MD LAB BLOOD ORDERABLES LABORATORY [facility] [address] [place] [address] * (ABNORMAL) CBC (12/28/2022 4:42 AM EDT) WBC 9.52 4.00 - 10.80 K/uL 12/28/2022 4:[address] [facility] RBC 3.45 4.50 - 5.25 M/uL 12/28/2022 4:[address] [facility] HGB 10.6(L) 14.0 - 16.8 g/dL 12/28/2022 4:[address] [facility] HCT 32.7(L) 40.0 - 48.4 % 12/28/2022 4:[address] [facility] MCV 94.8 82.0 - 99.5 fL 12/28/2022 4:[address] [facility] MCH 30.7 27.0 - 34.0 pg 12/28/2022 4:[address] [facility] MCHC 32.4 32.0 - 36.0 g/dL 12/28/2022 4:[address] [facility] RDW 13.4 11.5 - 15.5 % 12/28/2022 4:[address] [facility] PLT 348 140 - 400 K/uL 12/28/2022 4:[address] [facility] MPV 8.8 6.6 - 11.1 fL 12/28/2022 4:55 AM EDT LABORATORY GL nRBCs 0 <=0 /100 WBCs 12/28/2022 4:[address] [facility] Blood Venous blood specimen / Unknown Venipuncture / Unknown 12/28/2022 4:42 AM EDT 12/28/2022 4:52 AM EDT Cari Navarro PA-C LAB BLOOD ORDERABLES LABORATORY [address] [address] * (ABNORMAL) BASIC METABOLIC PANEL (12/28/2022 4:42 AM EDT) BUN 22(H) 6 - 20 mg/dL 12/28/2022 5:22 AM EDT LABORATORY GL Creatinine 1.0 0.6 - 1.2 mg/dL 12/28/2022 5:22 AM EDT LABORATORY [facility] Estimated Glomerular Filtration Rate >90 >=60 mL/min 12/28/2022 5:22 AM EDT LABORATORY [facility] Comment:eGFR is calculated b ased on the CKD-EPI 2020 equation Sodium 140 135 - 146 mmol/L 12/28/2022 5:22 AM EDT LABORATORY [facility] Potassium 3.5 3.5 - 5.1 mmol/L 12/28/2022 5:22 AM EDT LABORATORY [facility] Chloride 101 98 - 107 mmol/L 12/28/2022 5:22 AM EDT LABORATORY [facility] CO2 33(H) 22 - 32 mmol/L 12/28/2022 5:22 AM EDT LABORATORY [facility] Anion Gap 6(L) 7 - 15 mmol/L 12/28/2022 5:22 AM EDT LABORATORY [facility] Glucose 216(H) 70 - 120 mg/dL 12/28/2022 5:22 AM EDT LABORATORY [facility] Calcium 9.0 8.4 - 10.2 mg/dL 12/28/2022 5:22 AM EDT LABORATORY GL Blood Venous blood specimen / Unknown Venipuncture / Unknown 12/28/2022 4:42 AM EDT 12/28/2022 4:52 AM EDT Cari Navarro PA-C LAB BLOOD ORDERABLES LABORATORY [facility] [address] [place], [place] [id number] * (ABNORMAL) GLUCOSE METER, POINT OF CARE (12/28/2022 3:58 AM EDT) Glucose Meter 335(H) 70 - 120 mg/dL 12/28/2022 4:02 AM EDT [facility] Blood Whole blood specimen / Unknown 12/28/2022 3:58 AM EDT 12/28/2022 4:02 AM EDT Denise Mcmillan MD LAB POINT OF CARE TEST DOCKED DEVICE UNSOLICITED RESULTS Performing Organization Address [facility] Co de Phone Number [facility] [address] [place] [address] * (ABNORMAL) GLUCOSE METER, POINT OF CARE (12/27/2022 9:48 PM EDT) Glucose Meter 469(H) 70 - 120 mg/dL 12/27/2022 10:32 PM EDT [facility] Blood Whole blood specimen / Unknown 12/27/2022 9:48 PM EDT 12/27/2022 10:32 PM EDT Denise Mcmillan MD LAB POINT OF CARE TEST DOCKED DEVICE UNSOLICITED RESULTS Performing Organization Address [facility] de Phone Number [facility] [address] [place] [address] * (ABNORMAL) GLUCOSE METER, POINT OF CARE (12/27/2022 2:59 PM EDT) Glucose Meter 460(H) 70 - 120 mg/dL 12/27/2022 3:01 PM EDT [facility] Blood Whole blood specimen / Unknown 12/27/2022 2:59 PM EDT 12/27/2022 3:01 PM EDT Bonifacio Ratliff MD LAB POINT OF CA RE TEST DOCKED DEVICE UNSOLICITED RESULTS Performing Organization Address [facility] de Phone Number [facility] [address] [place] [address] * (ABNORMAL) URINALYSIS, REFLEX TO MICROSCOPIC (12/27/2022 2:32 PM EDT) Color, Urine Yellow Light Yellow, Yellow, Dark Yellow 12/27/2022 2:52 PM EDT LABORATORY [facility] Clarity, Urine Clear Clear 12/27/2022 2:52 PM EDT LABORATORY [facility] Glucose, Urine 500(A) Negative mg/dL 12/27/2022 2:52 PM EDT LABORATORY [facility] Bilirubin, Urine Negative Negative 12/27/2022 2:52 PM EDT LABORATORY [facility] Ketone, Urine Negative Negative mg/dL 12/27/2022 2:52 PM EDT LABORATORY [facility] Specific Effie, Urine 1.030 1.003 - 1.030 12/27/2022 2:52 PM EDT LABORATORY [facility] Blood, Urine Negative Negative 12/27/2022 2:52 PM EDT LABORATORY [facility] pH, Urine 5.5 5.0 - 7.5 Units 12/27/2022 2:52 PM EDT LABORATORY [facility] Protein, Urine Negative Negative mg/dL 12/27/2022 2:52 PM EDT LABORATORY [facility] Urobilinogen, Urine 0.2 0.2, 1.0 mg/dL 12/27/2022 2:52 PM EDT LABORATORY [facility] Nitrite, Urine Negative Negative 12/27/2022 2:52 PM EDT LAB[facility]ATORY [facility] Esterase, Urine Negative Negative 2:52 PM EDT LAB[facility]ATORY [facility] Comment, Urine 12/27/2022 2:52 PM EDT LABORATORY [facility] Comment:Screen negative - Mi croscopic not performed. Urine Urine specimen obtained by clean catch procedure / Unknown Non-blood Collection / Unknown 12/27/2022 2:32 PM EDT 12/27/2022 2:47 PM EDT Bonifacio Ratliff MD LAB URINE ORDER [facility] LABORATORY [facility] [address] [place] [address] * XR HAND 3 OR MORE VIEWS (12/27/2022 1:35 PM EDT) Anatomical Region Laterality Modality Upper Extremity, Hand Digital Ra diography 12/27/2022 1:24 PM EDT Impressions 12/27/2022 1:56 PM EDT IMPRESSION: Nonspecific erosive changes about the 5th PIP joint, which may reflect acute versus chronic infectious/inflammatory arthropathy. THIS DOCUMENT HAS BEEN ELECTRONICALLY SIGNED BY FAUSTO MANUEL MD Narrative 12/27/2022 1:56 PM EDT PROCEDURE INFORMATION: Exam: XR Left Hand Exam date and time: 12/27/2022 1:24 PM Age: 37 years old Clinical indication: Other: Wound to 5th digit left hand; Additional info: Mcp wound TECHNIQUE: Imaging protocol: Radiologic exam of the left hand. Views: 3 or more views. COMPARISON: MRI HAND LEFT W WO CONTRAST 10/31/2022 9:31 AM FINDINGS: Bones/joints: There is tapered resorption identified about the 5th PIP joint, with erosive changes identified and linear focus of mineralization along the medial margin of the joint space. There is no acute fracture. There is no dislocation. Soft tissues: Mild 5th digit PIP soft tissue swelling is present. Procedure Note Fausto Maunel MD - 12/27/2022 PROCEDURE INFORMATION: Exam: XR Left Hand Exam date and time: 12/27/2022 1:24 PM Age: 37 years old Clinical indication: Other: Wound to 5th digit left hand; Additional info:Mcp wound TECHNIQUE: Imaging protocol: Radiologic exam of the left hand. Views: 3 or more views. COMPARISON: MRI HAND LEFT W WO CONTRAST 10/31/2022 9:31 AM FINDINGS: Bones/joints: There is tapered resorption identified about the 5th PIPjoint, with erosive changes identified and linear focus of mineralization alongthe medial margin of the joint space. There is no acute fracture. There is no dislocation. Soft tissues: Mild 5th digit PIP soft tissue swelling is present. IMPRESSION IMPRESSION: Nonspecific erosive changes about the 5th PIP joint, which may reflectacute versus chronic infectious/inflammatory arthropathy. THIS DOCUMENT HAS BEEN ELECTRONICALLY SIGNED BY FAUSTO MANUEL MD Bonifacio Ratliff MD RADIOLOGY ([facility]) * CULTURE, BLOOD (12/27/2022 12:49 PM EDT) Blood Culture Growth No growth 01/01/2023 1:[address] 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 THIS DOCUMENT HAS BEEN ELECTRONICALLY SIGNED BY FAUSTO MANUEL MD Narrative 12/27/2022 1:16 PM EDT PROCEDURE INFORMATION: Exam: XR Right Wrist Exam date and time: 12/27/2022 12:37 PM Age: 37 years old Clinical indication: Other: Hypotension, right hand osteomyelitis/wound; Additional info: Hypotension, right hand has osteomyelitis TECHNIQUE: Imaging protocol: Radiologic exam of the right wrist. Views: 3 or more views. COMPARISON: DX XR HAND 3 OR MORE VIEWS 12/27/2022 12:35 PM COMPARISON MORE: DX XR HAND 3 OR MORE VIEWS 12/11/2022 5:08 PM FINDINGS: Bones/joints: Again identified is osseous destruction involving the 5th proximal and middle phalanges, with associated tapering and residual ununited osseous fragments. There is no acute fracture. There is no dislocation. Soft tissues: Moderate surrounding soft tissue swelling is present. Procedure Note Fausto Manuel MD - 12/27/2022 PROCEDURE INFORMATION: Exam: XR Right Wrist Exam date and time: 12/27/2022 12:37 PM Age: 37 years old Clinical indication: Other: Hypotension, right hand osteomyelitis/wound; Additional info: Hypotension, right hand has osteomyelitis TECHNIQUE: Imaging protocol: Radiologic exam of the right wrist. Views: 3 or more views. COMPARISON: DX XR HAND 3 OR MORE VIEWS 12/27/2022 12:35 PM COMPARISON MORE: DX XR HAND 3 OR MORE VIEWS 12/11/2022 5:08 PM FINDINGS: Bones/joints: Again identified is osseous destruction involving the 5th proximal and middle phalanges, with associated tapering and residualununited osseous fragments. There is no acute fracture. There is no dislocation. Soft tissues: Moderate surrounding soft tissue swelling is present. 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 THIS DOCUMENT HAS BEEN ELECTRONICALLY SIGNED BY FAUSTO MANUEL MD Narrative 12/27/2022 1:16 PM EDT PROCEDURE INFORMATION: Exam: XR Right Hand Exam date and time: 12/27/2022 12:35 PM Age: 37 years old Clinical indication: Other: Hypotension, right hand osteomyelitis/wound; Additional info: Wound, osteomyelitis TECHNIQUE: Imaging protocol: Radiologic exam of the right hand. Views: 3 or more views. COMPARISON: DX XR HAND 3 OR MORE VIEWS 12/11/2022 5:08 PM FINDINGS: Bones/joints: Again identified is osseous destruction involving the 5th proximal and middle phalanges, with associated tapering and residual ununited osseous fragments. There is no acute fracture. There is no dislocation. Soft tissues: Moderate surrounding soft tissue swelling is present. Procedure Note Fausto Manuel MD - 12/27/2022 PROCEDURE INFORMATION: Exam: XR Right Hand Exam date and time: 12/27/2022 12:35 PM Age: 37 years old Clinical indication: Other: Hypotension, right hand osteomyelitis/wound; Additional info: Wound, osteomyelitis TECHNIQUE: Imaging protocol: Radiologic exam of the right hand. Views: 3 or more views. COMPARISON: DX XR HAND 3 OR MORE VIEWS 12/11/2022 5:08 PM FINDINGS: Bones/joints: Again identified is osseous destruction involving the 5th proximal and middle phalanges, with associated tapering and residualununited osseous fragments. There is no acute fracture. There is no dislocation. Soft tissues: Moderate surrounding soft tissue swelling is present. 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 THIS DOCUMENT HAS BEEN ELECTRONICALLY SIGNED BY FAUSTO MANUEL MD Bonifacio Ratliff MD RADIOLOGY ([facility]) * XR CHEST 1 VIEW (12/27/2022 12:46 PM EDT) Anatomical Region Laterality Modality Chest Digital Radiogra phy 12/27/2022 12:2 2 PM EDT Impressions 12/27/2022 1:12 PM EDT IMPRESSION: No acute cardiopulmonary abnormality. THIS DOCUMENT HAS BEEN ELECTRONICALLY SIGNED BY FAUSTO MANUEL MD Narrative 12/27/2022 1:12 PM EDT PROCEDURE INFORMATION: Exam: XR Chest Exam date and time: 12/27/2022 12:22 PM Age: 37 years old Clinical indication: Other: Hypotension, right hand osteomyelitis/wound; Additional info: Weakness TECHNIQUE: Imaging protocol: Radiologic exam of the chest. Views: 1 view. COMPARISON: DX XR CHEST 2 VIEWS 12/11/2022 3:22 PM FINDINGS: Lungs: Subsegmental atelectasis versus scarring in the right midlung field, with probable chronic scarring in the left midlung field. Pleural spaces: No definite pneumothorax. No pleural effusion. Heart/Mediastinum: Cardiac silhouette and pulmonary vasculature within normal limits. Bones/Joints: Osseous structures are unchanged. Procedure Note Fausto Manuel MD - 12/27/2022 PROCEDURE INFORMATION: Exam: XR Chest Exam date and time: 12/27/2022 12:22 PM Age: 37 years old Clinical indication: Other: Hypotension, right hand osteomyelitis/wound; Additional info: Weakness TECHNIQUE: Imaging protocol: Radiologic exam of the chest. Views: 1 view. COMPARISON: DX XR CHEST 2 VIEWS 12/11/2022 3:22 PM FINDINGS: Lungs: Subsegmental atelectasis versus scarring in the right midlungfield, with probable chronic scarring in the left midlung field. Pleural spaces: No definite pneumothorax. No pleural effusion. Heart/Mediastinum: Cardiac silhouette and pulmonary vasculature withinnormal limits. Bones/Joints: Osseous structures are unchanged. IMPRESSION IMPRESSION: No acute cardiopulmonary abnormality. THIS DOCUMENT HAS BEEN ELECTRONICALLY SIGNED BY FAUSTO MANUEL MD Bonifacio Ratliff MD RADIOLOGY ([facility]) * MAGNESIUM (12/27/2022 12:35 PM EDT) Magnesium 2.1 1.5 - 2.6 mg/dL 12/27/2022 1:27 PM EDT LABORATORY [facility] Blood Venous blood specimen / Unknown Venipuncture / Unknown 12/27/2022 12:35 PM EDT 12/27/2022 12:39 PM EDT Bonifacio Ratliff MD LAB BLOOD ORDER LETHA Performing Organization Address City/[facility] Co de Phone Number LABORATORY [address] [address] * PHOSPHORUS (12/27/2022 12:35 PM EDT) Pathologist [facility] Phosphorus 4.1 2.5 - 4.8 mg/dL 12/27/2022 1:27 PM EDT LABORATORY [facility] Comment:Result may be falsel y elevated due to hemolysis. Blood Venous blood specimen / Unknown Venipuncture / Unknown 12/27/2022 12:35 PM EDT 12/27/2022 12:39 PM EDT Bonifacio Ratliff MD LAB BLOOD ORDER LETHA Performing Organization Address City/[facility]/ZIP Co de Phone Number LABORATORY [address] [address] * CRP (INFLAMMATORY MARKER) (12/27/2022 12:35 PM EDT) Pathologist [facility] CRP (Inflammatory Marker) <3 <=5 mg/L 12/27/2022 1:27 PM EDT LABORATORY [facility] Blood Venous blood specimen / Unknown Venipuncture / Unknown 12/27/2022 12:35 PM EDT 12/27/2022 12:39 PM EDT Bonifacio Ratliff MD LAB BLOOD ORDER [facility] LABORATORY [facility] [address] [place] [address] * CULTURE, BLOOD (12/27/2022 12:35 PM EDT) [facility] Blood Culture Growth No growth 01/01/2023 1:[address] [facility] Blood Venous blood specimen / Unknown Venipuncture / Unknown 12/27/2022 12:35 PM EDT 12/27/2022 12:39 PM EDT Bonifacio Ratliff MD LAB MICRO - GEN ERAL ORDERABLES Performing Organization Address [facility] Co de Phone Number LABORATORY [address] [phone] * (ABNORMAL) BLOOD GAS, VENOUS (12/27/2022 12:35 PM EDT) [facility] Temperature 37.0 C 12/27/2022 12:[address] [facility] pH, Venous 7.353 7.320 - 7.430 units 12/27/2022 12:43 PM EDT LABORATORY [facility] pCO2, Venous 59.9 40.0 - 60.0 mmHg 12/27/2022 12:43 PM EDT LABORATORY [facility] pO2, Venous 29.3 25.0 - 50.0 mmHg 12/27/2022 12:43 PM EDT LABORATORY [facility] Base Excess, Venous 5.6(H) -2.0 - 2.0 mmol/L 12/27/2022 12:43 PM EDT LABORATORY GL Hemoglobin, Whole Blood 12.9(L) 14.0 - 16.8 g/dL 12/27/2022 12:43 PM EDT LABORATORY [facility] Oxyhemoglobin, Venous 46.3 40.0 - 85.0 % total Hgb 12/27/2022 12:43 PM EDT LABORATORY GL Carboxyhemoglobi n, Whole Blood 4.7(H) <=1.5 % total Hgb 12/27/2022 12:43 PM EDT LABORATORY [facility] Comment:Smokers: 0-9.0 % Methemoglobin, Whole Blood 1.5 <=1.5 % total Hgb 12/27/2022 12:43 PM EDT LABORATORY [facility] Reduced Hemoglobin, Venous 47.5 % total Hgb 12/27/2022 12:43 PM EDT LABORATORY [facility] O2 Content, Venous 8.4 7.0 - 18.0 %vol 12/27/2022 12:43 PM EDT LABORATORY [facility] Bicarbonate, Whole Blood 32.4(H) 23.0 - 31.0 mmol/L 12/27/2022 12:43 PM EDT LABORATORY [facility] Blood Venous blood specimen / Unknown Venipuncture / Unknown 12/27/2022 12:35 PM EDT 12/27/2022 12:38 PM EDT Bonifacio Ratliff MD LAB BLOOD ORDER LETHA LABORATORY [address] [address] * APTT (12/27/2022 12:35 PM EDT) aPTT 27 21 - 38 seconds 12/27/2022 12:57 PM EDT LABORATORY GL Blood Venous blood specimen / Unknown Venipuncture / Unknown 12/27/2022 12:35 PM EDT 12/27/2022 12:39 PM EDT Narrative LABORATORY [facility] - 12/27/2022 12:57 PM EDT Anticoagulation may affect testing. Refer to [employer] Test Catalog for a list of effects. Bonifacio Ratliff MD LAB BLOOD ORDER LETHA LABORATORY [address] [phone] * PT INR (12/27/2022 12:35 PM EDT) Prothrombin Time 13.2 11.6 - 15.2 seconds 12/27/2022 12:57 PM EDT LABORATORY GL INR 1.0 0.8 - 1.2 12/27/2022 12:57 PM EDT LABORATORY GL Blood Venous blood specimen / Unknown Venipuncture / Unknown 12/27/2022 12:35 PM EDT 12/27/2022 12:39 PM EDT Narrative LAB[facility]ORY [facility] - 12/27/2022 12:57 PM EDT Warfarin Therapy INR: 2.0-3.0 conventional anticoagulation INR: 2.5-3.5 high intensity anticoagulation Bonifacio Ratliff MD LAB BLOOD ORDER LETHA Performing Organization Address City/[facility] Co de Phone Number LABORATORY [address] [phone] * LACTATE, WHOLE BLOOD WITH REFLEX IF ABNORMAL (12/27/2022 12:35 PM EDT) Lactate, Whole Blood 1.2 0.4 - 2.0 mmol/L 12/27/2022 12:[address] [facility] Blood Venous blood specimen / Unknown Venipuncture / Unknown 12/27/2022 12:35 PM EDT 12/27/2022 12:38 PM EDT Bonifacio Ratliff MD LAB BLOOD ORDER LETHA Performing Organization Address [facility] Co de Phone Number LABORATORY [address] [address] * PROCALCITONIN (12/27/2022 12:35 PM EDT) Procalcitonin 0.04 <0.10 ng/mL 12/27/2022 1:[address] [facility] Blood Venous blood specimen / Unknown Venipuncture / Unknown 12/27/2022 12:35 PM EDT 12/27/2022 12:39 PM EDT Narrative LAB[facility]ATORY [facility] - 12/27/2022 1:09 PM EDT Less than 0.5 ng/mL: Low risk for progression to sepsis. Review patients condition for localized infections. 0.5 to 2.0 ng/mL: Intermediate risk for progresion to sepsis. Review underlying conditions. Recommend repeat PCT after 6 hours has elapsed. Greater than 2.0 ng/mL: high risk for progression to sepsis unless other causes are known. Bonifacio Ratliff MD LAB BLOOD ORDER [facility] LABORATORY [facility] [address] [place] [address] * DIFFERENTIAL, AUTOMATED (12/27/2022 12:35 PM EDT) WBC 7.93 4.00 - 10.80 K/uL 12/27/2022 12:45 PM EDT LABORATORY [facility] Neutrophils % 69.7 40.0 - 75.0 % 12/27/2022 12:45 PM EDT LABORATORY [facility] Lymphocytes % 26.4 18.0 - 42.0 % 12/27/2022 12:45 PM EDT LABORATORY [facility] Monocytes % 2.5 1.0 - 11.0 % 12/27/2022 12:45 PM EDT LABORATORY [facility] Eosinophils % 0.5 0.0 - 6.0 % 12/27/2022 12:45 PM EDT LABORATORY GL Basophils % 0.6 0.0 - 2.0 % 12/27/2022 12:45 PM EDT LABORATORY GL Immature Granulocytes % 0.3 0.0 - 2.0 % 12/27/2022 12:45 PM EDT LABORATORY GL Absolute Neutrophils 5.53 1.80 - 7.70 K/uL 12/27/2022 12:45 PM EDT LABORATORY GL Absolute Lymphocytes 2.09 1.00 - 4.80 K/ul 12/27/2022 12:45 PM EDT LABORATORY GL Absolute Monocytes 0.20 0.00 - 1.10 K/uL 12/27/2022 12:45 PM EDT LABORATORY [facility] Absolute Eosinophils 0.04 0.00 - 0.70 K/uL 12/27/2022 12:45 PM EDT LABORATORY GL Absolute Basophils 0.05 0.00 - 0.20 K/uL 12/27/2022 12:45 PM EDT LABORATORY [facility] Absolute Immature Granulocytes 0.02 0.00 - 0.20 K/uL 12/27/2022 12:45 PM EDT LABORATORY [facility] Blood Venous blood specimen / Unknown Venipuncture / Unknown 12/27/2022 12:35 PM EDT 12/27/2022 12:39 PM EDT Bonifacio Ratliff MD LAB BLOOD ORDER [facility] LAB[facility]ATORY [facility] [address] [place] [address] * (ABNORMAL) CBC (12/27/2022 12:35 PM EDT) WBC 7.93 4.00 - 10.80 K/uL 12/27/2022 12:45 PM EDT LABORATORY GL RBC 4.06 4.50 - 5.25 M/uL 12/27/2022 12:45 PM EDT LABORATORY GL HGB 12.8(L) 14.0 - 16.8 g/dL 12/27/2022 12:45 PM EDT LABORATORY GL HCT 37.7(L) 40.0 - 48.4 % 12/27/2022 12:[address] [facility] MCV 92.9 82.0 - 99.5 fL 12/27/2022 12:[address] [facility] MCH 31.5 27.0 - 34.0 pg 12/27/2022 12:[address] [facility] MCHC 34.0 32.0 - 36.0 g/dL 12/27/2022 12:[address] [facility] RDW 13.3 11.5 - 15.5 % 12/27/2022 12:[address] [facility] PLT 414(H) 140 - 400 K/uL 12/27/2022 12:[address] [facility] MPV 9.6 6.6 - 11.1 fL 12/27/2022 12:45 PM EDT LABORATORY GL nRBCs 0 <=0 /100 WBCs 12/27/2022 12:45 PM EDT LABORATORY GL Blood Venous blood specimen / Unknown Venipuncture / Unknown 12/27/2022 12:35 PM EDT 12/27/2022 12:39 PM EDT Bonifacio Ratliff MD LAB BLOOD ORDER [facility] LAB[facility]AT[facility] [address] [place] [phone] * TROPONIN T, HIGH SENSITIVITY (12/27/2022 12:35 PM EDT) Pathologist [facility] Troponin T, High Sensitivity 14 <=22 ng/L 12/27/2022 1:[address] [facility] Blood Venous blood specimen / Unknown Venipuncture / Unknown 12/27/2022 12:35 PM EDT 12/27/2022 12:39 PM EDT Bonifacio Ratliff MD LAB BLOOD ORDER [facility] LAB[facility] [address] [facility] [place] [phone] * (ABNORMAL) COMPREHENSIVE METABOLIC PANEL (12/27/2022 12:35 PM EDT) Pathologist [facility] BUN 27(H) 6 - 20 mg/dL 12/27/2022 1:27 PM EDT LABORATORY GL Creatinine 0.9 0.6 - 1.2 mg/dL 12/27/2022 1:27 PM EDT LABORATORY GL Estimated Glomerular Filtration Rate >90 >=60 mL/min 12/27/2022 1:27 PM EDT LABORATORY [facility] Comment:eGFR is calculated b ased on the CKD-EPI 2020 equation Sodium 132(L) 135 - 146 mmol/L 12/27/2022 1:27 PM EDT LABORATORY GL Potassium 12/27/2022 1:27 PM EDT LABORATORY [facility] Comment:Specimen too hemolyz ed. Reorder if needed. Chloride 91(L) 98 - 107 mmol/L 12/27/2022 1:27 PM EDT LABORATORY [facility] CO2 28 22 - 32 mmol/L 12/27/2022 1:27 PM EDT LABORATORY GL Anion Gap 13 7 - 15 mmol/L 12/27/2022 1:27 PM EDT LABORATORY GL Glucose 592(HH) 70 - 120 mg/dL 12/27/2022 1:27 PM EDT LABORATORY [facility] Albumin 4.5 3.8 - 5.0 g/dL 12/27/2022 1:27 PM EDT LABORATORY [facility] AST 12/27/2022 1:27 PM EDT LABORATORY [facility] Comment:Specimen too hemolyz ed. Reorder if needed. Alkaline Phosphatase 127 35 - 130 U/L 12/27/2022 1:27 PM EDT LABORATORY [facility] Comment:Result may be falsel y elevated due to hemolysis. Bilirubin, Total 0.3 <=1.2 mg/dL 12/27/2022 1:27 PM EDT [facility] Calcium 10.2 8.4 - 10.2 mg/dL 12/27/2022 1:27 PM EDT [facility] Protein 8.9(H) 6.0 - 8.3 g/dL 12/27/2022 1:27 PM EDT [facility] ALT 212(H) 10 - 50 U/L 12/27/2022 1:27 PM EDT [facility] Comment:Result may be falsel y elevated due to hemolysis. Blood Venous blood specimen / Unknown Venipuncture / Unknown 12/27/2022 12:35 PM EDT 12/27/2022 12:39 PM EDT Bonifacio Ratliff MD LAB BLOOD ORDER LETHA Performing Organization Address [facility] de Phone Number LABORATORY [facility] [address] [place] [address] * EXTRA HOANG TOP (12/27/2022 12:34 PM EDT) Blood Venous blood specimen / Unknown 12/27/2022 12:34 PM EDT 12/27/2022 12:41 PM EDT Bonifacio Ratliff MD LAB BLOOD ORDER LETHA Performing Organization Address [facility] Co de Phone Number LABORATORY [facility] [address] [place] [address] * EKG (12/27/2022 12:28 PM EDT) 12/27/2022 12:2 8 PM EDT Narrative Procedure Note Nandini Kaplan MD - 12/27/2022 12:28 PM EDT REASON FOR STUDY: SYNCOPE CONCLUSIONS: Sinus rhythm with short HI Rightward axis Abnormal ECG When compared with ECG of 11-DEC-2022 14:55, Nonspecific T wave abnormality no longer evident in Lateral leads Ventricular Rate: 88 Atrial Rate: 88 HI Interval: 110 QRS Duration: 86 QT/QTc: 362/438 ms P-R-T [place]: 85 : 94 : 70 degrees Bonifacio Ratliff MD EKG [facility] * (ABNORMAL) GLUCOSE METER, POINT OF CARE (12/27/2022 12:21 PM EDT) [facility] Glucose Meter >500(HH) 70 - 120 mg/dL 12/27/2022 12:57 PM EDT [facility] Device Comment Notified Provider 12/27/2022 12:57 PM EDT [facility] Blood Whole blood specimen / Unknown 12/27/2022 12:21 PM EDT 12/27/2022 12:57 PM EDT Bonifacio Ratliff MD LAB POINT OF CA RE TEST DOCKED DEVICE UNSOLICITED RESULTS [facility] [address] [place] [address] documented in this encounter Visit Diagnoses Diagnosis Bipolar 2 disorder, major depressive episode (HCC)- Primary Other bipolar disorders Dehydration Generalized weakness Other malaise and fatigue Hyperglycemia Other abnormal glucose Noncompliance with medications Personal history of noncompliance with medical treatment, presenting hazards to health Housing insecurity Nausea and vomiting, unspecified vomiting type Major depressive disorder with current active episode, unspecified depression episode severity, unspecified whether recurrent Uncontrolled other specified diabetes mellitus with hyperglycemia (HCC) Type 1 diabetes mellitus with hemoglobin A1c goal of less than 8.0% (HCC) Bipolar 1 disorder, depressed (HCC) Bipolar I disorder, most recent episode (or current) depressed, unspecified Uncontrolled diabetes mellitus with hyperglycemia (HCC) Dehydration Chronic osteomyelitis of right hand including fingers ([facility]) Compulsive skin picking Other disorder of impulse control Methamphetamine abuse (HCC) Nondependent amphetamine or related acting sympathomimetic abuse, unspecified Orthostatic hypotension Severe protein-calorie malnutrition (HCC) Other severe protein-calorie malnutrition Syncope Syncope and collapse Opioid use disorder Social anxiety disorder Social phobia Hypothyroidism Unspecified hypothyroidism Nocturnal diarrhea Diarrhea BRBPR (bright red blood per rectum) Hemorrhage of rectum and anus documented in this encounter Administered Medications Inactive Administered Medications - up to 3 most recent administrations Medication Order MAR Action Action Date Dose Rate Site Acetaminophen (Ofirmev) inj 721.5 mg 721.5 mg (15 mg/kg 48.1 kg), Intravenous, ONCE, 1 dose, On Sun12/27/22 at 1330, Administer over 15 Minutes, Administer undiluted over 15 minutes! NOTE: Maximum of 4000 mg per 24 hours of acetaminophen from all acetaminophen containing products., Indication: Patient is strictly NPO Restarted 12/27/2022 1:46 PM EDT 2,886 mg/hr 288.6 mL/hr New Bag 12/27/2022 1:43 PM EDT 721.5 mg 288.6 mL/hr Acetaminophen (Tylenol) tab 975 mg 975 mg, Oral, Q6H PRN Pain, Mild, Pain, Moderate, Headache, fever, Starting on Sun12/27/22 at 1832, Until Sun01/18/23 at 1843, Maximum of 4 grams (4000 mg) per day. Given 01/10/2023 7:26 AM EDT 975 mg Given 12/31/2022 7:40 AM EDT 975 mg Given 12/30/2022 9:09 AM EDT 975 mg amoxicillin-clavulanate (Augmentin) tab 875 mg 875 mg, Oral, BID (.AM/PM), First dose on Sun12/27/22 at 2100, Until Discontinued Given 01/18/2023 8:15 AM EDT 875 mg Given 01/17/2023 9:01 PM EDT 875 mg Given 01/17/2023 8:02 AM EDT 875 mg busPIRone (Buspar) tab 10 mg 10 mg, Oral, BID (.AM/PM), First dose on Sun12/28/22 at 2100, Until Discontinued Given 01/01/2023 8:41 AM EDT 10 mg Given 12/31/2022 8:56 PM EDT 10 mg Given 12/31/2022 8:35 AM EDT 10 mg busPIRone (Buspar) tab 5 mg 5 mg, Oral, QHS, First dose on Sun01/01/23 at 2200, Last dose on Sun01/01/23 at 2200, For 1 dose Given 01/01/2023 8:35 PM EDT 5 mg Cholestyramine Light (Prevalite) oral powder 4 g 4 g, Oral, TID(AM/NOON/HS), First dose on Sun01/12/23 at 2130, Until Discontinued, Cholestyramine resin may bind other drugs when given concurrently. Patient should take other drugs at least one (1) hour before or 4-6 hours after cholystyramine to avoid impeding their absorption. Given 01/15/2023 8:31 PM EDT 4 g Given 01/15/2023 4:17 PM EDT 4 g Given 01/15/2023 8:19 AM EDT 4 g dextrose 50 % inj 25 mL 25 mL, IV Push, PRN Hypoglycemia, Other, For blood glucose 54 - 69 mg/dL or 70 - 100 mg/dL with symptoms AND patient is unresponsive, NPO, OR unable to swallow, Starting on Sun12/27/22 at 1839, Until Estefania 01/18/23 at 1843, Administer IV. Recheck blood glucose after 15 minutes. Notify provider. dextrose 50 % inj 50 mL 50 mL, IV Push, PRN Hypoglycemia, Other, For blood glucose below 54 mg/dL AND patient unresponsive, NPO, OR unable to swallow, Starting on Sun12/27/22 at 1839, Until Estefania 01/18/23 at 1843, Administer IV. Recheck blood glucose in 15 minutes. Notify provider. dicyclomine (Bentyl) cap 10 mg 10 mg, Oral, TID PRN Other, abdominal cramping, Starting on Sun01/15/23 at 1123, Until Estefania 01/18/23 at 1843 Given 01/18/2023 8:15 AM EDT 10 mg Given 01/17/2023 8:05 AM EDT 10 mg Given 01/16/2023 12:22 PM EDT 10 mg Gabapentin (Neurontin) cap 300 mg 300 mg, Oral, TID(AM/NOON/HS), First dose on Sun12/27/22 at 2200, Until Discontinued Given 01/18/2023 12:29 PM EDT 30 0 mg Given 01/18/2023 6:24 AM EDT 300 mg Given 01/17/2023 9:01 PM EDT 300 mg glucagon (Glucagen) inj 1 mg 1 mg, Intramuscular, PRN Hypoglycemia, Other, If patient is unresponsive, or NPO and has no IV access, Starting on Sun12/27/22 at 1839, Until Sun01/18/23 at 184, NPO and no IV access with either 1) blood glucose less than 100 mg/dL and symptomatic OR 2) blood glucose less than 70 mg/dL and asymptomatic Glucose (Glutose 15) 40 % gel 15 g of glucose 15 g of glucose, Oral, PRN Hypoglycemia (low sugar), Other, For blood glucose 54 - 69 mg/dL or 70 - 100 mg/dL with symptoms AND patient alert WITH difficulty chewing/swallowing, Starting on Sun12/27/22 at 1839, Until Sun01/18/23 at 184, Administer gel. Recheck blood glucose after 15 minutes. Notify provider. 37.5 gram tube = 15 grams glucose = 1 each Given 12/28/2022 12:17 PM EDT 15 g of glucose Glucose (Glutose 15) 40 % gel 30 g of glucose 30 g of glucose, Oral, PRN Hypoglycemia (low sugar), Other, For blood glucose below 54 mg/dL AND patient alert WITH difficulty chewing/swallowing, Starting on Sun12/27/22 at 1839, Until Sun01/18/23 at 184, Administer gel. Recheck blood glucose after 15 minutes. Notify provider. 37.5 gram tube = 15 grams glucose = 1 each Given 01/04/2023 3:24 PM EDT 30 g of glucose glucose chew tab 16 g 16 g, Oral, PRN Hypoglycemia, Other, For blood glucose 54 - 69 mg/dL or 70 - 100 mg/dL with symptoms and patient alert without difficulty chewing/swallowing., Starting on Sun12/27/22 at 1839, Until Sun01/18/23 at 184 Given 01/05/2023 3:09 PM EDT 16 g home medication stored in pharmacy Daily(AM), First dose on 12/30/22 at 0900, Until Discontinued, Routine, when the patient is ready for discharge contact pharmacy house antacid (Mi-Acid II) oral susp 15 mL 15 mL, Oral, Q4H PRN Indigestion, Starting on Sun01/10/23 at 1512, Until Sun01/18/23 at 1843, SHAKE WELL Hydrocortisone 2.5 % cream Rectal, TID PRN Hemorrhoids, Starting on 01/13/23 at 1515, Until Sun01/18/23 at 1843, use for ANUSOL HC/PROCTOSOL HC insulin aspart (NovoLOG) inj 14 Units 14 Units, Subcutaneous, ONCE, 1 dose, On Sun01/04/23 at 1115, Given 01/04/2023 10:55 AM EDT 14 Units Arm Left Upper insulin aspart (NovoLOG) inj 2 Units 2 Units, Subcutaneous, ONCE, 1 dose, On Sun01/15/23 at 2300 Given 01/15/2023 10:29 PM EDT 2 Units Arm Right Upper insulin aspart (NovoLOG) inj 2 Units 2 Units, Subcutaneous, ONCE, 1 dose, On Sun01/16/23 at 0100 Given 01/16/2023 12:30 AM EDT 2 Units Arm Right Upper insulin aspart (NovoLOG) inj 4 Units 4 Units, Subcutaneous, ONCE, 1 dose, On Sun12/27/22 at 2230, Given 12/27/2022 10:30 PM EDT 4 Units Arm Right Upper insulin aspart (NovoLOG) inj 4 Units 4 Units, Subcutaneous, W/MEALS AND HS, First dose on Sun01/03/23 at 1200, Until Discontinued, Given 01/03/2023 12:21 PM EDT 4 Units Abdomen Left Upper insulin aspart (NovoLOG) inj 4 Units 4 Units, Subcutaneous, ONCE, 1 dose, On Sun01/15/23 at 2315 Given 01/15/2023 10:39 PM EDT 4 Units Arm Right Upper insulin aspart (NovoLOG) inj 5 Units 5 Units, Subcutaneous, ONCE, 1 dose, On Sun01/04/23 at 0900, Given 01/04/2023 8:47 AM EDT 5 Units Arm Right Upper insulin aspart (NovoLOG) inj Subcutaneous, W/MEALS AND HS, First dose on Sun12/27/22 at 2200, Until Discontinued, HIGH DOSE, Insulin sensitivity factor (ISF) = 30 (Moderately Insulin Resistance) Serum Blood Sugarless than 70 mg/dl or symptomatic (obtain STAT lab blood sugar and notify provider); 151 - 180 mg/dl (1 units); 181 - 210 mg/dl (2 units); 211 - 240 mg/dl (3 units); 241 - 270 mg/dl (4 units); 271 - 300 mg/dl (5 units); 301 - 330 mg/dl (6 units); 331 - 360 mg/dl (7 units); 361 - 390 mg/dl (8 units); greater than 390 mg/dl (call provider) Correctional insulin may be given if the patient is NPO. Given 01/03/2023 7:50 AM EDT 6 Units Arm Left Upper Given 01/02/2023 8:52 PM EDT 6 Units Ar m Left Upper Given 01/02/2023 5:44 PM EDT 6 Units Ar m Right Upper insulin aspart (NovoLOG) inj Subcutaneous, W/MEALS AND HS, First dose on Sun01/03/23 at 1200, Until Discontinued, MEDIUM DOSE (Usual starting dose): Sliding Scale Correctional insulin may be given if the patient is NPO. Dose based on standard build from Insulin Calculator. Do not modify insulin doses in administration instructions! , Glucose less than 70 instructions: Obtain STAT lab blood glucose and call covering provider., Glucose 80-150 (units): 0, Glucose 151-200 (units): 2, Glucose 201-250 (units): 4, Glucose 251-300 (units): 6, Glucose greater than 300 (units): 8, Glucose greater than 300 instructions: Give suggested insulin dose and call covering provider. Given 01/03/2023 12:22 PM EDT 6 Units Abdomen Left Upper insulin aspart (NovoLOG) inj Subcutaneous, WITH MEALS, First dose on Sun01/03/23 at 1815, Until Discontinued, LOW DOSE (Elderly insulin sensitive patient): Sliding Scale Correctional insulin may be given if the patient is NPO. Dose based on standard build from Insulin Calculator. Do not modify insulin doses in administration instructions! , Glucose less than 70 instructions: Obtain STAT lab blood glucose and call covering provider., Glucose 80-150 (units): 0, Glucose 151-200 (units): 1, Glucose 201-250 (units): 2, Glucose 251-300 (units): 3, Glucose greater than 300 (units): 4, Glucose greater than 300 instructions: Give suggested insulin dose and call covering provider. Given 01/08/2023 8:32 AM EDT 2 Units Arm Left Upper Given 01/07/2023 5:33 PM EDT 4 Units Ar m Right Upper Given 01/07/2023 12:49 PM EDT 1 Units A rm Right Upper insulin aspart (NovoLOG) inj Subcutaneous, ONCE, 1 dose, On Sun01/03/23 at 2215, Given 01/03/2023 9:40 PM EDT 10 Units Arm Left Upper insulin aspart (NovoLOG) inj Subcutaneous, WITH MEALS, First dose (after last modification) on Estefania 01/04/23 at 1700, Until Discontinued, Administer 1 unit SQ for every 18 grams of carbs consumed with meals Given 01/05/2023 12:49 PM EDT 3 Units Arm Left Upper Given 01/05/2023 8:52 AM EDT 8 Units Ar m Right Upper Given 01/04/2023 5:41 PM EDT 3 Units Ar m Left Upper insulin aspart (NovoLOG) inj Subcutaneous, BREAKFAST, First dose (after last modification) on 01/06/23 at 0800, Until Discontinued, Administer 1 unit SQ for every 15 grams of carbs consumed with meals Given 01/18/2023 8:17 AM EDT 2 Units Arm Right Upper Given 01/16/2023 9:04 AM EDT 2 Units Ar m Left Upper Given 01/14/2023 8:53 AM EDT 3 Units Ar m Right Upper insulin aspart (NovoLOG) inj Subcutaneous, DINNER, First dose on Sun01/05/23 at 1700, Until Discontinued, 1 unit subQ for every 18 g of carbs consumed with supper Given 01/17/2023 5:31 PM EDT 4 Units Arm Right Upper Given 01/16/2023 5:20 PM EDT 2 Units Ab domen Left Lower Given 01/15/2023 5:39 PM EDT 2 Units Ab domen Right Lower insulin aspart (NovoLOG) inj Subcutaneous, LUNCH, First dose on 01/08/23 at 1200, Until Discontinued, Dose equals 1 unit of insulin per 18 grams of carbohydrate consumed. Hold dose if patient does not eat Given 01/16/2023 12:20 PM EDT 5 Units Arm Right Upper Given 01/15/2023 12:31 PM EDT 4 Units A rm Right Upper Given 01/14/2023 12:47 PM EDT 5 Units A rm Left Upper insulin aspart (NovoLOG) inj Subcutaneous, BID (AM/PM MEALS), First dose (after last modification) on Sun01/08/23 at 1700, Until Discontinued, LOW DOSE (Elderly insulin sensitive patient): Sliding Scale Correctional insulin may be given if the patient is NPO. Dose based on standard build from Insulin Calculator. Do not modify insulin doses in administration instructions! , Glucose less than 70 instructions: Obtain STAT lab blood glucose and call covering provider., Glucose 80-150 (units): 0, Glucose 151-200 (units): 1, Glucose 201-250 (units): 2, Glucose 251-300 (units): 3, Glucose greater than 300 (units): 4, Glucose greater than 300 instructions: Give suggested insulin dose and call covering provider. Given 01/08/2023 5:38 PM EDT 2 Units Arm Right Upper insulin aspart (NovoLOG) inj Subcutaneous, W/MEALS AND HS, First dose (after last modification) on Sun01/09/23 at 0315, Until Discontinued, MEDIUM DOSE (Usual starting dose): Sliding Scale Correctional insulin may be given if the patient is NPO. Dose based on standard build from Insulin Calculator. Do not modify insulin doses in administration instructions! , Glucose less than 70 instructions: Obtain STAT lab blood glucose and call covering provider., Glucose 80-150 (units): 0, Glucose 151-200 (units): 2, Glucose 201-250 (units): 4, Glucose 251-300 (units): 6, Glucose greater than 300 (units): 8, Glucose greater than 300 instructions: Give suggested insulin dose and call covering provider. Given 01/09/2023 2:42 AM EDT 8 Units Arm Right Upper insulin aspart (NovoLOG) inj Subcutaneous, W/MEALS AND HS, First dose on Sun01/09/23 at 0800, Until Discontinued, LOW DOSE (Elderly insulin sensitive patient): Sliding Scale Correctional insulin may be given if the patient is NPO. Dose based on standard build from Insulin Calculator. Do not modify insulin doses in administration instructions! , Glucose less than 70 instructions: Obtain STAT lab blood glucose and call covering provider., Glucose 80-150 (units): 0, Glucose 151-200 (units): 1, Glucose 201-250 (units): 2, Glucose 251-300 (units): 3, Glucose greater than 300 (units): 4, Glucose greater than 300 instructions: Give suggested insulin dose and call covering provider. Given 01/18/2023 8:18 AM EDT 1 Units Arm Right Upper Given 01/17/2023 9:02 PM EDT 2 Units Ab domen Left Lower Given 01/17/2023 5:31 PM EDT 1 Units Ar m Right Upper Insulin Glargine (Lantus) inj 12 Units 12 Units, Subcutaneous, HSINSULIN, First dose on Sun12/27/22 at 2200, Until Discontinued, Given 01/02/2023 8:49 PM EDT 12 Units Arm Left Upper Given 01/01/2023 8:36 PM EDT 12 Units Ar m Right Upper Given 12/31/2022 8:56 PM EDT 12 Units Ab domen Right Upper Insulin Glargine (Lantus) inj 18 Units 18 Units, Subcutaneous, HSINSULIN, First dose (after last modification) on Sun01/09/23 at 2200, Until Discontinued, Given 01/17/2023 9:01 PM EDT 18 Units Abdomen Left Lower Given 01/16/2023 8:57 PM EDT 18 Units Ab domen Right Lower Given 01/15/2023 8:59 PM EDT 18 Units Ar m Left Upper Insulin Glargine (Lantus) inj 20 Units 20 Units, Subcutaneous, HSINSULIN, First dose (after last modification) on Sun01/03/23 at 2200, Until Discontinued, Given 01/03/2023 8:31 PM EDT 20 Units Arm Right Upper Insulin Glargine (Lantus) inj 22 Units 22 Units, Subcutaneous, HSINSULIN, First dose (after last modification) on Sun01/08/23 at 2200, Until Discontinued, Given 01/08/2023 9:07 PM EDT 22 Units Abdomen Right Lower Insulin Glargine (Lantus) inj 26 Units 26 Units, Subcutaneous, HSINSULIN, First dose (after last modification) on Estefania 01/04/23 at 2200, Until Discontinued, Given 01/07/2023 8:14 PM EDT 26 Units Abdomen Left Lower Given 01/06/2023 8:09 PM EDT 26 Units Ab domen Left Lower Given 01/05/2023 8:54 PM EDT 26 Units Ab domen Right Upper Insulin Glargine (Lantus) inj 6 Units 6 Units, Subcutaneous, ONCE, On Estefania 01/04/23 at 1115, For 1 dose, "IF DOSE IS HELD- NOTIFY COVERING PROVIDER!" Given 01/04/2023 11:00 AM EDT 6 Units Arm Left Upper ISOLYTE 1,500 mL bolus infusion (SEE ADMIN INSTRUCTIONS) Intravenous, at 1,200 mL/hr, Obtain vital signs q15 min x 4 beginning within the hour after fluid bolus end time, then resume vital signs as ordered. Estimated body mass index is 17.11 kg/m as calculated from the following: Height as of 12/11/22: 1.676 m (5' 6"). Weight as of 12/11/22: 48.1 kg (106 lb). Actual body weight was utilized to determine target ordered volume. Plasma-LYTE 148, isolyte-S, and isolyte-S pH 7.4 are considered equivalent - including for MAR barcode scanning., ONCE, 1 dose, On Sun12/27/22 at 1300 New Bag 12/27/2022 12:40 PM EDT 1,500 mL 1200 mL/hr isolyte-S pH 7.4 infusion Intravenous, at 125 mL/hr, Plasma-LYTE 148, isolyte-S, and isolyte-S pH 7.4 are considered equivalent - including for MAR barcode scanning., CONTINUOUS, Starting on Sun12/27/22 at 1915, Until Sun12/29/22 at 0803 New Bag 12/29/2022 5:09 AM EDT 125 mL/hr New Bag 12/28/2022 9:50 PM EDT 125 mL/hr Rate Verify 12/28/2022 7:49 PM EDT 125 mL/hr isolyte-S pH 7.4 infusion Intravenous, at 1,000 mL/hr, Administer entire volume within 60 minutes or less. Plasma-LYTE 148, isolyte-S, and isolyte-S pH 7.4 are considered equivalent - including for MAR barcode scanning., ONCE, 1 dose, On Sun01/12/23 at 2115 New Bag 01/12/2023 9:00 PM EDT 1,000 mL 1000 mL/hr Lactobacillus (Culturelle) cap 1 Capsule 1 Capsule, Oral, Daily(AM), First dose on Sun01/05/23 at 0945, Until Discontinued Given 01/08/2023 8:33 AM EDT 1 Capsule Given 01/07/2023 8:32 AM EDT 1 Capsule Given 01/06/2023 8:46 AM EDT 1 Capsule Lactobacillus (Culturelle) cap 1 Capsule 1 Capsule, Oral, BID (NOON, 1700), First dose (after last modification) on Sun01/08/23 at 1115, Until Discontinued Given 01/18/2023 12:29 PM EDT 1 Caps ule Given 01/17/2023 5:40 PM EDT 1 Capsule Given 01/17/2023 12:10 PM EDT 1 Capsule levothyroxine (Levoxyl) tab 100 mcg 100 mcg, Oral, [id number], First dose (after last modification) on Sun01/05/23 at 0630, Until Discontinued Given 01/18/2023 6:23 AM EDT 100 mcg Given 01/17/2023 5:58 AM EDT 100 mcg Given 01/16/2023 5:24 AM EDT 100 mcg levothyroxine (Levoxyl) tab 88 mcg 88 mcg, Oral, [id number], First dose on Sun12/28/22 at 0630, Until Discontinued Given 01/04/2023 6:11 AM EDT 88 mcg Given 01/03/2023 6:42 AM EDT 88 mcg Given 01/02/2023 6:04 AM EDT 88 mcg LiquaCel 30 mL, Oral, BID (.AM/PM), First dose on Sun12/29/22 at 2100, Until Discontinued Given 01/03/2023 8:36 AM EDT 30 mL Given 12/31/2022 8:56 PM EDT 30 mL Given 12/30/2022 8:41 PM EDT 30 mL loperamide (Imodium) cap 2 mg 2 mg, Oral, Q4H PRN Diarrhea, Starting on Sun01/02/23 at 1020, Until Sun01/08/23 at 1042, Maximum of 16 mg per day recommended Given 01/07/2023 8:34 AM EDT 2 mg Given 01/06/2023 8:10 PM EDT 2 mg Given 01/04/2023 4:32 PM EDT 2 mg loperamide (Imodium) cap 2 mg 2 mg, Oral, BID (AM/PM MEALS), First dose (after last modification) on Sun01/08/23 at 1700, Until Discontinued, Maximum of 16 mg per day recommended Given 01/09/2023 8:19 AM EDT 2 mg Given 01/08/2023 5:39 PM EDT 2 mg loperamide (Imodium) cap 4 mg 4 mg, Oral, ONCE, On Sun01/02/23 at 0000, For 1 dose, Maximum of 16 mg per day recommended Given 01/02/2023 12:02 AM EDT 4 mg loperamide (Imodium) cap 4 mg 4 mg, Oral, TID(AM/NOON/HS), First dose (after last modification) on Sun01/09/23 at 1600, Until Discontinued, Maximum of 16 mg per day recommended Given 01/12/2023 4:49 PM EDT 4 mg Given 01/12/2023 8:08 AM EDT 4 mg Given 01/11/2023 9:00 PM EDT 4 mg melatonin tab 3 mg 3 mg, Oral, HS PRN Insomnia, Starting on Sun12/27/22 at 1832, Until Sun01/18/23 at 1843 Given 01/14/2023 8:45 PM EDT 3 mg methADONE CONCentrated 10 mg/mL oral conc 107 mg 107 mg, Oral, ONCE, On Sun12/27/22 at 1345, For 1 dose, Note Concentration! Shake Well! Given 12/27/2022 1:35 PM E DT 107 mg methADONE CONCentrated 10 mg/mL oral conc 107 mg 107 mg, Oral, Daily(AM), First dose (after last reorder) on Sun12/28/22 at 1145, Until Discontinued, Note Concentration! Shake Well! Given 01/18/2023 8:2 0 AM EDT 107 mg Given 01/17/2023 8:01 AM EDT 107 mg Given 01/16/2023 8:05 AM EDT 107 mg midodrine (Proamatine) tab 10 mg 10 mg, Oral, TID(AM/NOON/HS), First dose on Sun12/27/22 at 1915, Until Discontinued Given 01/18/2023 12:29 PM EDT 10 mg Given 01/18/2023 6:23 AM EDT 10 mg Given 01/17/2023 9:01 PM EDT 10 mg mirtazapine ODT (Remeron Soltab) tab 15 mg 15 mg, Oral, HS, First dose on Sun12/27/22 at 2200, Until Discontinued Given 12/27/2022 10:03 PM EDT 15 mg mirtazapine ODT (Remeron Soltab) tab 30 mg 30 mg, Oral, HS, First dose (after last modification) on Estefania 12/28/22 at 2200, Until Discontinued Given 01/17/2023 9:01 PM EDT 30 mg Given 01/16/2023 8:55 PM EDT 30 mg Given 01/15/2023 8:31 PM EDT 30 mg Nicotine (Nicoderm CQ) 14 MG/24HR patch 1 Patch 1 Patch, Transdermal, Daily(AM), First dose on 12/30/22 at 0900, Until Discontinued, Do NOT cut the patch. Remove any Nicotine patches the patient may currently be wearing prior to applying the new patch. Place on clean hairless area. Remove for patient showers. WASTE INFO: Return packaging and waste medication in zip lock bag to pharmacy - [facility] container. Patch Applied 01/18/2023 8:15 AM EDT 1 Patch Arm Right Upper Patch Applied 01/17/2023 8:05 AM EDT 1 Patch Arm Left Upper Patch Applied 01/16/2023 8:05 AM EDT 1 Patch Arm Right Upper Nutrisource (soluble fiber packet) 1 Packet, Oral, Daily(AM), First dose on 01/08/23 at 1115, Until Discontinued, Stir one packet into at least 4 oz of any hot or cold beverage or prepared soft food, including purees. Stir until dissolved. Given 01/18/2023 8:15 AM EDT 1 Pa cket Given 01/17/2023 8:02 AM EDT 1 Packet Given 01/16/2023 8:04 AM EDT 1 Packet ondansetron (Zofran) inj 4 mg 4 mg, IV Push, Q6H PRN Nausea, Starting on Sun12/27/22 at 1832, Until Estefania 01/04/23 at 1751 Given 12/29/2022 12:43 PM EDT 4 mg ondansetron (Zofran) tab 4 mg 4 mg, Oral, Q6H PRN Nausea, Starting on Sun01/04/23 at 1752, Until Estefania 01/18/23 at 1843 Given 01/09/2023 12:21 PM EDT 4 mg Piperacillin-Tazobactam (Zosyn) 4.5 g in 100 mL NSS ivpb (HALF hour infusion) 4.5 g, IV Piggyback, ONCE, On Sun12/27/22 at 1300, For 1 dose New Bag 12/27/2022 12:54 PM EDT 4.5 g 2 00 mL/hr QUEtiapine (SEROquel) tab 200 mg 200 mg, Oral, HS, First dose on Sun12/27/22 at 2200, Until Discontinued Given 01/17/2023 9:01 PM EDT 200 mg Given 01/16/2023 8:55 PM EDT 200 mg Given 01/15/2023 8:31 PM EDT 200 mg senna-docusate (Senokot-S) 1 Tablet 1 Tablet, Oral, DAILY PRN Constipation, Starting on Sun12/27/22 at 1832, Until Sun01/09/23 at 1443 Given 12/29/2022 6:28 AM EDT 1 Tablet sertraline (Zoloft) tab 100 mg 100 mg, Oral, Daily(AM), First dose (after last modification) on Sun01/04/23 at 0900, Until Discontinued Given 01/15/2023 8:19 AM EDT 100 mg Given 01/14/2023 8:01 AM EDT 100 mg Given 01/13/2023 8:06 AM EDT 100 mg sertraline (Zoloft) tab 125 mg 125 mg, Oral, Daily(AM), First dose (after last modification) on Sun01/16/23 at 0900, Until Discontinued Given 01/18/2023 8:15 AM EDT 125 mg Given 01/17/2023 8:02 AM EDT 125 mg Given 01/16/2023 8:04 AM EDT 125 mg sertraline (Zoloft) tab 25 mg 25 mg, Oral, Daily(AM), First dose on Sun01/01/23 at 1245, Until Discontinued Given 01/01/2023 12:32 PM EDT 25 mg sertraline (Zoloft) tab 50 mg 50 mg, Oral, Daily(AM), First dose on Sun01/02/23 at 0900, Until Discontinued Given 01/03/2023 8:33 AM EDT 50 mg Given 01/02/2023 8:22 AM EDT 50 mg sodium chloride 0.9 % flush peripheral ramirez 3 mL 3 mL, IV Push, QSHIFT, First dose on Estefania 12/28/22 at 0000, Until Discontinued, Do not flush if lock, PICC, or central line not in place; IV infusing or unable to flush. Given 12/29/2022 4:00 PM EDT 3 mL Given 12/29/2022 8:00 AM EDT 3 mL Given 12/28/2022 4:00 PM EDT 3 mL sulfamethoxazole-trimethoprim DS (Bactrim DS) 800-160 MG 1 Tablet 1 Tablet, Oral, BID (.AM/PM), First dose on Sun12/27/22 at 2100, Until Discontinued Given 01/18/2023 8:15 AM EDT 1 T ablet Given 01/17/2023 9:01 PM EDT 1 Tablet Given 01/17/2023 8:02 AM EDT 1 Tablet Vancomycin (Vancocin) 1250 mg in NSS 250 mL ivpb 1,250 mg, IV Piggyback, ONCE, 1 dose, On Sun12/27/22 at 1300 New Bag 12/27/2022 2:37 PM EDT 1,250 mg 183.33 mL/hr documented in this encounter Active and Recently Administered Medications Times are shown in EDT. Scheduled Medication Order 01/16/2023 01/17/2023 01/18/2023 amoxicillin-clavulanate (Augmentin) tab 875 mg 875 mg, Oral, BID (.AM/PM), First dose on Sun12/27/22 at 2100, Until Discontinued 803 (Given - Provider: Adam French, DAVION)2054 (Given - Provider: Alix Daniel, DAVION) 801 (Given - Provider: Carlos Manuel Underwood, DAVION)2100 (Given - Provider: Loida Knox, DAVION) 814 (Given - Provider: Page Paris RN) Cholestyramine Light (Prevalite) oral powder 4 g 4 g, Oral, TID(AM/NOON/HS), First dose on Sun01/12/23 at 2130, Until Discontinued, Cholestyramine resin may bind other drugs when given concurrently. Patient should take other drugs at least one (1) hour before or 4-6 hours after cholystyramine to avoid impeding their absorption. 0800 (Not Given - Provider: Adam French RN - Reason: Refused-Notify Provider - Comment: Pt stating it is making his stomach feel worse)1600 (Not Given - Provider: Teresa Kilpatrick LPN - Reason: Refused-Notify Provider)2053 (Not Given - Provider: Alix Daniel RN - Reason: Refused-Notify Provider) 0800 (Not Given - Provider: Carlos Manuel Underwood RN - Reason: Refused-Notify Provider)1600 (Not Given - Provider: Carlos Manuel Underwood RN - Reason: Refused-Notify Provider)2200 (Not Given - Provider: Loida Knox RN - Reason: Refused-Notify Provider) 0800 (Not Given - Provider: Page Paris RN - Reason: Refused-Notify Provider) Gabapentin (Neurontin) cap 300 mg 300 mg, Oral, TID(AM/NOON/HS), First dose on Sun12/27/22 at 2200, Until Discontinued 0524 (Given - Provider: Alix Daniel, RN)1222 (Given - Provider: Adam French RN)2054 (Given - Provider: Alix Daniel RN) 0558 (Given - Provider: Thalia Odell, DAVION)1210 (Given - Provider: Carlos Manuel Underwood RN)210 (Given - Provider: Loida Knox, DAVION) 0624 (Given - Provider: Cinthia Gibson RN)1229 (Given - Provider: Page Paris, DAVION) home medication stored in pharmacy Daily(AM), First dose on 12/30/22 at 0900, Until Discontinued, Routine, when the patient is ready for discharge contact pharmacy 0900 (Order Check Addressed - Provider: Adam French RN) 0900 (Order Check Addressed - Provider: Carlos Manuel Underwood RN) 0900 (Order Check Addressed - Provider: Page Paris, DAVION) insulin aspart (NovoLOG) inj 2 Units (COMPLETED) 2 Units, Subcutaneous, ONCE, 1 dose, On Sun01/16/23 at 0100 0030 (Given - Provider: Thalia Odell, DAVION) insulin aspart (NovoLOG) inj Subcutaneous, BREAKFAST, First dose (after last modification) on Sun01/06/23 at 0800, Until Discontinued, Administer 1 unit SQ for every 15 grams of carbs consumed with meals 0904 (Given - Provider: Adam French RN - Comment: 1 unit for BSBS 171 + 2 units for carb count 30g eaten/15g/unit = 3 units total) 0800 (Not Given - Provider: Carlos Manuel Underwood RN - Reason: Parameter(s) Not Met) 0817 (Given - Provider: Page Paris RN) insulin aspart (NovoLOG) inj Subcutaneous, DINNER, First dose on Sun01/05/23 at 1700, Until Discontinued, 1 unit subQ for every 18 g of carbs consumed with supper 1720 (Given - Provider: Teresa Kilpatrick LPN) 1731 (Given - Provider: Carlos Manuel Underwood RN) insulin aspart (NovoLOG) inj Subcutaneous, LUNCH, First dose on Sun01/08/23 at 1200, Until Discontinued, Dose equals 1 unit of insulin per 18 grams of carbohydrate consumed. Hold dose if patient does not eat 1220 (Given - Provider: Adam French RN - Comment: pt ate 90g carbs for lunch/1 unit/18g carbs = 5 units) 1200 (Not Given - Provider: Carlos Manuel Underwood RN - Reason: Parameter(s) Not Met) 1200 (Not Given - Provider: Page Paris RN - Reason: Parameter(s) Not Met) insulin aspart (NovoLOG) inj Subcutaneous, W/MEALS AND HS, First dose on Sun01/09/23 at 0800, Until Discontinued, LOW DOSE (Elderly insulin sensitive patient): Sliding Scale Correctional insulin may be given if the patient is NPO. Dose based on standard build from Insulin Calculator. Do not modify insulin doses in administration instructions! , Glucose less than 70 instructions: Obtain STAT lab blood glucose and call covering provider., Glucose 80-150 (units): 0, Glucose 151-200 (units): 1, Glucose 201-250 (units): 2, Glucose 251-300 (units): 3, Glucose greater than 300 (units): 4, Glucose greater than 300 instructions: Give suggested insulin dose and call covering provider. 0903 (Given - Provider: Adam French RN - Comment: 1 unit for BSBS 171 + 2 units for carb count 30g/15g/u = 3 units total)1200 (Not Given - Provider: Adam French RN - Reason: Parameter(s) Not Met)1700 (No Insulin - Provider: Teresa Kilpatrick LPN - Reason: Parameter(s) Not Met)2200 (Not Given - Provider: Alix Daniel RN - Reason: Parameter(s) Not Met) 08 (Given - Provider: Carlos Manuel Underwood RN - Comment: Given per order by Herbie Arroyo PA-C)1200 (Not Given - Provider: Carlos Manuel Underwood RN - Reason: Parameter(s) Not Met - Comment: BSBS 52)173 (Given - Provider: Carlos Manuel Underwood RN)210 (Given - Provider: Loida Knox, DAVION) 0818 (Given - Provider: Page Paris, DAVION)1200 (Not Given - Provider: Page Paris RN - Reason: Parameter(s) Not Met) Insulin Glargine (Lantus) inj 18 Units 18 Units, Subcutaneous, HSINSULIN, First dose (after last modification) on Sun01/09/23 at 2200, Until Discontinued, 2056 (Given - Provider: Alix Daniel RN) 2100 (Given - Provider: Loida Knox, DAVION) Lactobacillus (Culturelle) cap 1 Capsule 1 Capsule, Oral, BID (NOON, 1700), First dose (after last modification) on Sun01/08/23 at 1115, Until Discontinued 1222 (Given - Provider: Adam French RN)1720 (Given - Provider: Teresa Kilpatrick LPN) 1210 (Given - Provider: Carlos Manuel Underwood RN)1740 (Given - Provider: Carlos Manuel Underwood RN) 1229 (Given - Provider: Page Paris, DAVION) levothyroxine (Levoxyl) tab 100 mcg 100 mcg, Oral, [id number], First dose (after last modification) on Sun01/05/23 at 0630, Until Discontinued 0524 (Given - Provider: Alix Daniel RN) 0558 (Given - Provider: Thalia Odell RN) 0623 (Given - Provider: Cinthia Gibson, DAVION) methADONE CONCentrated 10 mg/mL oral conc 107 mg 107 mg, Oral, Daily(AM), First dose (after last reorder) on Estefania 12/28/22 at 1145, Until Discontinued, Note Concentration! Shake Well! 0805 (Given - Provider: Adam French RN) 0801 (Given - Provider: Carlos Manuel Underwood, RN) 0820 (Given - Provider: Page Paris, RN) midodrine (Proamatine) tab 10 mg 10 mg, Oral, TID(AM/NOON/HS), First dose on Sun12/27/22 at 1915, Until Discontinued 05 (Given - Provider: Alix Daniel, RN)122 (Given - Provider: Adam French, DAVION)2054 (Given - Provider: Alix Daniel, RN) 05 (Given - Provider: Thalia Odell RN)121 (Given - Provider: Carlos Manuel Underwood, DAVION)2100 (Given - Provider: Loida Knox, DAVION) 06 (Given - Provider: Cinthia Gibson, DAVION)122 (Given - Provider: Page Paris, DAVION) mirtazapine ODT (Remeron Soltab) tab 30 mg 30 mg, Oral, HS, First dose (after last modification) on Estefania 12/28/22 at 2200, Until Discontinued 2054 (Given - Provider: Alix Daniel, DAVION) 2100 (Given - Provider: Loida Knox, RN) Nicotine (Nicoderm CQ) 14 MG/24HR patch 1 Patch 1 Patch, Transdermal, Daily(AM), First dose on 12/30/22 at 0900, Until Discontinued, Do NOT cut the patch. Remove any Nicotine patches the patient may currently be wearing prior to applying the new patch. Place on clean hairless area. Remove for patient showers. WASTE INFO: Return packaging and waste medication in zip lock bag to pharmacy - [facility] container. 0759 (Patch Removed - Provider: Adam French RN)0805 (Patch Applied - Provider: Adam French RN) 0800 (Patch Removed - Provider: Carlos Manuel Underwood RN)0805 (Patch Applied - Provider: Carlos Manuel Underwood RN) 0805 (Patch Removed - Provider: Page Paris RN)0815 (Patch Applied - Provider: Page Paris, DAVION)143 (Due: Patch Removed - Provider: Discharge, Physician - Comment: Time automatically adjusted from order being discontinued) Nutrisource (soluble fiber packet) 1 Packet, Oral, Daily(AM), First dose on Sun01/08/23 at 1115, Until Discontinued, Stir one packet into at least 4 oz of any hot or cold beverage or prepared soft food, including purees. Stir until dissolved. 0804 (Given - Provider: Adam French RN) 08 (Given - Provider: Carlos Manuel Underwood RN) 08 (Given - Provider: Page Paris RN) QUEtiapine (SEROquel) tab 200 mg 200 mg, Oral, HS, First dose on Sun12/27/22 at 2200, Until Discontinued 2054 (Given - Provider: Alix Daniel, DAVION) 2100 (Given - Provider: Loida Knox RN) sertraline (Zoloft) tab 125 mg 125 mg, Oral, Daily(AM), First dose (after last modification) on Sun01/16/23 at 0900, Until Discontinued 803 (Given - Provider: Adam French RN) 08 (Given - Provider: Carlos Manuel Underwood RN) 08 (Given - Provider: Page Paris, DAVION) sulfamethoxazole-trimeth oprim DS (Bactrim DS) 800-160 MG 1 Tablet 1 Tablet, Oral, BID (.AM/PM), First dose on Sun12/27/22 at 2100, Until Discontinued 803 (Given - Provider: Adam French RN)2054 (Given - Provider: Alix Daniel RN) 801 (Given - Provider: Carlos Manuel Underwood, DAVION)2100 (Given - Provider: Loida Knox RN) 814 (Given - Provider: Page Paris RN) PRN Medication Order 01/16/2023 01/17/2023 01/18/2023 Acetaminophen (Tylenol) tab 975 mg 975 mg, Oral, Q6H PRN Pain, Mild, Pain, Moderate, Headache, fever, Starting on Sun12/27/22 at 1832, Until Sun01/18/23 at 1843, Maximum of 4 grams (4000 mg) per day. dextrose 50 % inj 25 mL 25 mL, IV Push, PRN Hypoglycemia, Other, For blood glucose 54 - 69 mg/dL or 70 - 100 mg/dL with symptoms AND patient is unresponsive, NPO, OR unable to swallow, Starting on Sun12/27/22 at 1839, Until Sun01/18/23 at 1843, Administer IV. Recheck blood glucose after 15 minutes. Notify provider. dextrose 50 % inj 50 mL 50 mL, IV Push, PRN Hypoglycemia, Other, For blood glucose below 54 mg/dL AND patient unresponsive, NPO, OR unable to swallow, Starting on Sun12/27/22 at 1839, Until Sun01/18/23 at 184, Administer IV. Recheck blood glucose in 15 minutes. Notify provider. dicyclomine (Bentyl) cap 10 mg 10 mg, Oral, TID PRN Other, abdominal cramping, Starting on Sun01/15/23 at 1123, Until Sun01/18/23 at 1843 1222 (Given - Provider: Adam French, DAVION) 0805 (Given - Provider: Carlos Manuel Underwood, DAVION) 0815 (Given - Provider: Page Paris, DAVION) glucagon (Glucagen) inj 1 mg 1 mg, Intramuscular, PRN Hypoglycemia, Other, If patient is unresponsive, or NPO and has no IV access, Starting on Sun12/27/22 at 1839, Until Sun01/18/23 at 1843, NPO and no IV access with either 1) blood glucose less than 100 mg/dL and symptomatic OR 2) blood glucose less than 70 mg/dL and asymptomatic Glucose (Glutose 15) 40 % gel 15 g of glucose 15 g of glucose, Oral, PRN Hypoglycemia (low sugar), Other, For blood glucose 54 - 69 mg/dL or 70 - 100 mg/dL with symptoms AND patient alert WITH difficulty chewing/swallowing, Starting on Sun12/27/22 at 1839, Until Sun01/18/23 at 1843, Administer gel. Recheck blood glucose after 15 minutes. Notify provider. 37.5 gram tube = 15 grams glucose = 1 each Glucose (Glutose 15) 40 % gel 30 g of glucose 30 g of glucose, Oral, PRN Hypoglycemia (low sugar), Other, For blood glucose below 54 mg/dL AND patient alert WITH difficulty chewing/swallowing, Starting on Sun12/27/22 at 1839, Until Estefania 01/18/23 at 1843, Administer gel. Recheck blood glucose after 15 minutes. Notify provider. 37.5 gram tube = 15 grams glucose = 1 each glucose chew tab 16 g 16 g, Oral, PRN Hypoglycemia, Other, For blood glucose 54 - 69 mg/dL or 70 - 100 mg/dL with symptoms and patient alert without difficulty chewing/swallowing., Starting on Sun12/27/22 at 1839, Until Estefania 01/18/23 at 1843 guaiFENesin-dm (Robitussin DM) oral syrup 10 mL 10 mL, Oral, Q6H PRN Cough, Starting on Sun12/27/22 at 1832, Until Estefania 01/18/23 at 1843 house antacid (Mi-Acid II) oral susp 15 mL 15 mL, Oral, Q4H PRN Indigestion, Starting on Sun01/10/23 at 1512, Until Estefania 01/18/23 at 1843, SHAKE WELL Hydrocortisone 2.5 % cream Rectal, TID PRN Hemorrhoids, Starting on Sun01/13/23 at 1515, Until Estefania 01/18/23 at 1843, use for ANUSOL HC/PROCTOSOL HC melatonin tab 3 mg 3 mg, Oral, HS PRN Insomnia, Starting on Sun12/27/22 at 1832, Until Estefania 01/18/23 at 1843 ondansetron (Zofran) tab 4 mg 4 mg, Oral, Q6H PRN Nausea, Starting on Sun01/04/23 at 1752, Until Estefania 01/18/23 at 1843 documented in this encounter Additional Health Concerns Infection Onset Date Last Indicated Resolved Time ((Group A Strep) Strep pyoge desire) Comment:Patient is receiving antibiotic treatment for infection. Patient is not picking at wounds and is compliant with maintaining a dressing on the wound. 10/27/2022 10/27/2022 12/29/2022 1:30 P M EDT C. difficile Rule-Out 01/01/2023 01/01/20232022 11:07 PM EDT C. difficile Rule-Out 01/01/2023 01/01/20232022 7:34 AM EDT Gastrointestinal Rule-Out 01/08/2023 01/09/2023 10:20 AM EDT Gastrointestinal Rule-Out 01/12/2023 01/12/2023 10:18 AM EDT C. difficile Rule-Out 01/12/2023 01/12/20232022 10:21 PM EDT documented as of this encounter Advance Directives [...] the patient have Health Care Power of Foreclosure Home Inspector? No Full Code 12/25/2021 1:35 PM 01/06/2022 6:52 PM This order reflects the patients wishes and were consensually agreed upon. Question Answer Comments Discussion of Advance Directives occurred with: Family Does the patient have a Living Will? No Does the patient have Health Care Power of Foreclosure Home Inspector? No Care Teams Barbering Instructor Relationship Specialty Start Date End Date Av Graves MD [address] [id number] PCP - General Family Medicine 06/27/22 documented as of this encounter
--- OUTSIDE RECORDS SUMMARY | 2023-04-19 19:50 | External Medical Summary ---
Author Name Unknown Address Unknown Organization : Laboratory Report Ordering Provider Test Date Status DAYANARA MORA 01/17/2023 11:51:18 Final Observation Date Value Abnormality Reference (Units ) Status Glucose Point of Care 01/17/2023 11:51:18 52 Below low normal 70-120 (mg/dL) Final Performing Location
--- OUTSIDE RECORDS SUMMARY | 2023-04-19 19:50 | External Medical Summary ---
Author Name Unknown Address Unknown Organization : Laboratory Report Ordering Provider Test Date Status DAYANARA MORA 01/16/2023 19:51:11 Final Observation Date Value Abnormality Reference (Units ) Status Glucose Point of Care 01/16/2023 19:51:11 144 Above high normal 70-120 (mg/dL) Final Performing Location
--- OUTSIDE RECORDS SUMMARY | 2023-04-19 19:50 | External Medical Summary ---
Author Name Unknown Address Unknown Organization : Laboratory Report Ordering Provider Test Date Status DAYANARA MORA 01/18/2023 06:45:30 Final Observation Date Value Abnormality Reference (Units ) Status Glucose Point of Care 01/18/2023 06:45:30 191 Above high normal 70-120 (mg/dL) Final Performing Location
--- OUTSIDE RECORDS SUMMARY | 2023-04-19 19:50 | External Medical Summary ---
Author Name Unknown Address Unknown Organization : Laboratory Report Ordering Provider Test Date Status DAYANARA MORA 01/17/2023 13:12:57 Final Observation Date Value Abnormality Reference (Units ) Status Glucose Point of Care 01/17/2023 13:12:57 213 Above high normal 70-120 (mg/dL) Final Performing Location
--- OUTSIDE RECORDS SUMMARY | 2023-04-19 19:50 | External Medical Summary ---
Author Name Unknown Address Unknown Organization : Laboratory Report Ordering Provider Test Date Status DAYANARA MORA 01/16/2023 11:40:13 Final Observation Date Value Abnormality Reference (Units ) Status Glucose Point of Care 01/16/2023 11:40:13 121 Above high normal 70-120 (mg/dL) Final Performing Location
--- OUTSIDE RECORDS SUMMARY | 2023-04-19 19:50 | External Medical Summary ---
Author Name Unknown Address Unknown Organization : Laboratory Report Ordering Provider Test Date Status DAYANARA MORA 01/18/2023 11:57:48 Final Observation Date Value Abnormality Reference (Units ) Status Glucose Point of Care 01/18/2023 11:57:48 87 70-120 (mg/dL) Final Performing Location
--- OUTSIDE RECORDS SUMMARY | 2023-04-19 19:50 | External Medical Summary ---
Author Name Unknown Address Unknown Organization : Laboratory Report Ordering Provider Test Date Status DAYANARA MORA 01/17/2023 06:35:19 Final Observation Date Value Abnormality Reference (Units ) Status Glucose Point of Care 01/17/2023 06:35:19 184 Above high normal 70-120 (mg/dL) Final Performing Location
--- OUTSIDE RECORDS SUMMARY | 2023-04-19 19:50 | External Medical Summary ---
Author Name Unknown Address Unknown Organization : Laboratory Report Ordering Provider Test Date Status DAYANARA MORA 01/17/2023 16:15:41 Final Observation Date Value Abnormality Reference (Units ) Status Glucose Point of Care 01/17/2023 16:15:41 163 Above high normal 70-120 (mg/dL) Final Performing Location
--- OUTSIDE RECORDS SUMMARY | 2023-04-19 19:50 | External Medical Summary ---
Author Name Unknown Address Unknown Organization : Laboratory Report Ordering Provider Test Date Status DAYANARA MORA 01/16/2023 05:53:53 Final Observation Date Value Abnormality Reference (Units ) Status Glucose Point of Care 01/16/2023 05:53:53 138 Above high normal 70-120 (mg/dL) Final Performing Location
--- OUTSIDE RECORDS SUMMARY | 2023-04-19 19:51 | External Medical Summary ---
Author Name Unknown Address Unknown Organization : Laboratory Report Ordering Provider Test Date Status DAYANARA MORA 01/10/2023 11:35:55 Final Observation Date Value Abnormality Reference (Units ) Status Glucose Point of Care 01/10/2023 11:35:55 184 Above high normal 70-120 (mg/dL) Final Performing Location
--- OUTSIDE RECORDS SUMMARY | 2023-04-19 19:51 | External Medical Summary ---
Author Name Unknown Address Unknown Organization [id number]:LABORATORY [facility] - [address] [place] [address] Laboratory Report Ordering Provider Test Date Status NICOLE CALDWELL 01/12/2023 20:34:00 Final Observation Date Value Abnormality Reference (Units ) Status ABO 01/12/2023 20:34:00 A Final RH 01/12/2023 20:34:00 Positive Final RED BLOOD CELL ANTIBODY SCREEN 01/12/2023 20:34:00 Negative Final SPECIMEN EXPIRATION DATE 01/12/2023 20:34:00 01/15/2023 23:59 Final Performing Location [facility] - [address] [place] [address]
--- OUTSIDE RECORDS SUMMARY | 2023-04-19 19:51 | External Medical Summary ---
Author Name Unknown Address Unknown Organization : Laboratory Report Ordering Provider Test Date Status DAYANARA MORA 01/14/2023 20:01:40 Final Observation Date Value Abnormality Reference (Units ) Status Glucose Point of Care 01/14/2023 20:01:40 126 Above high normal 70-120 (mg/dL) Final Performing Location
--- OUTSIDE RECORDS SUMMARY | 2023-04-19 19:51 | External Medical Summary ---
Author Name Unknown Address Unknown Organization [id number]:[facility] [place] - [facility] [address] Laboratory Report Ordering Provider Test Date Status ADELSO MCARTHUR 01/09/2023 13:49:00 Final Observation Date Value Abnormality Reference (Units ) Status Campylobacter sp DNA.diarrheagenic [Presence] in Stool by JAVED with probe detection 01/09/2023 13:49:00 Negative Negative Final Salmonella sp rpoD gene [Presence] in Stool by JAVED with probe detection 01/09/2023 13:49:00 Negative Negative Final Shigella species+EIEC invasion plasmid antigen H ipaH gene [Presence] in Stool by JAVED with probe detection 01/09/2023 13:49:00 Negative Negative Final Vibrio sp DNA [Identifier] in Specimen by JAVED with probe detection 01/09/2023 13:49:00 Negative Negative Final Yersinia enterocolitica recN gene [Presence] in Stool by JAVED with probe detection 01/09/2023 13:49:00 Negative Negative Final Escherichia coli Stx1 toxin stx1 gene [Presence] in Stool by JAVED with probe detection 01/09/2023 13:49:00 Negative Negative Final Escherichia coli Stx2 toxin stx2 gene [Presence] in Stool by JAVED with probe detection 01/09/2023 13:49:00 Negative Negative Final Norovirus genogroups I and II RNA panel - Stool by JAVED with probe detection 01/09/2023 13:49:00 Negative Negative Final Rotavirus A RNA [Presence] in Stool by JAVED with probe detection 01/09/2023 13:49:00 Negative Negative Final Performing Location [facility] - [facility] [address]
--- OUTSIDE RECORDS SUMMARY | 2023-04-19 19:51 | External Medical Summary ---
Author Name Unknown Address Unknown Organization : Laboratory Report Ordering Provider Test Date Status DAYANARA MORA 01/13/2023 19:56:14 Final Observation Date Value Abnormality Reference (Units ) Status Glucose Point of Care 01/13/2023 19:56:14 118 70-120 (mg/dL) Final Performing Location
--- OUTSIDE RECORDS SUMMARY | 2023-04-19 19:51 | External Medical Summary ---
Author Name Unknown Address Unknown Organization [id number]:LABORATORY [facility] - [address] [place] [address] [address] [place] [address] Laboratory Report Ordering Provider Test Date Status NICOLE CALDWELL 01/12/2023 20:34:00 Final Observation Date Value Abnormality Reference (Units ) Status WBC, Total 01/12/2023 20:34:00 10.27 4.00-10.80 (K/uL) Final RBC 01/12/2023 20:34:00 3.31 4.50-5.25 (M/uL) Final Hemoglobin 01/12/2023 20:34:00 10.0 Below low normal 14.0-16.8 (g/dL) Final HCT 01/12/2023 20:34:00 32.2 Below low normal 40.0-48.4 (%) Final MCV 01/12/2023 20:34:00 97.3 82.0-99.5 (fL) Final MCH 01/12/2023 20:34:00 30.2 27.0-34.0 (pg) Final MCHC 01/12/2023 20:34:00 31.1 32.0-36.0 (g/dL) Final RDW 01/12/2023 20:34:00 14.5 11.5-15.5 (%) Final Platelets 01/12/2023 20:34:00 381 140-400 (K/uL) Final MPV 01/12/2023 20:34:00 9.0 6.6-11.1 (fL) Final Nucleated erythrocytes/100 leukocytes [Ratio] in Blood by Automated count 01/12/2023 20:34:00 0 <=0 (/100 WBCs) Final Performing Location LAB[facility]ATORY [facility] - [address] [place] [address]
--- OUTSIDE RECORDS SUMMARY | 2023-04-19 19:51 | External Medical Summary ---
Author Name Unknown Address Unknown Organization K1F:LABORATORY [facility] - [address] [place] [address] Laboratory Report Ordering Provider Test Date Status NICOLE CALDWELL 01/12/2023 20:34:00 Final Observation Date Value Abnormality Reference (Units ) Status Magnesium 01/12/2023 20:34:00 2.1 1.5-2.6 (m g/dL) Final Performing Location LAB[facility]ATORY [facility] - [address] [place] [address]
--- OUTSIDE RECORDS SUMMARY | 2023-04-19 19:51 | External Medical Summary ---
Author Name Unknown Address Unknown Organization : Laboratory Report Ordering Provider Test Date Status DAYANARA MORA 01/08/2023 16:55:42 Final Observation Date Value Abnormality Reference (Units ) Status Glucose Point of Care 01/08/2023 16:55:42 202 Above high normal 70-120 (mg/dL) Final Performing Location
--- OUTSIDE RECORDS SUMMARY | 2023-04-19 19:51 | External Medical Summary ---
Author Name Unknown Address Unknown Organization : Laboratory Report Ordering Provider Test Date Status DAYANARA MORA 01/12/2023 07:19:57 Final Observation Date Value Abnormality Reference (Units ) Status Glucose Point of Care 01/12/2023 07:19:57 150 Above high normal 70-120 (mg/dL) Final Performing Location
--- OUTSIDE RECORDS SUMMARY | 2023-04-19 19:51 | External Medical Summary ---
Author Name Unknown Address Unknown Organization : Laboratory Report Ordering Provider Test Date Status DAYANARA MORA 01/12/2023 12:04:47 Final Observation Date Value Abnormality Reference (Units ) Status Glucose Point of Care 01/12/2023 12:04:47 157 Above high normal 70-120 (mg/dL) Final Performing Location
--- OUTSIDE RECORDS SUMMARY | 2023-04-19 19:51 | External Medical Summary ---
Author Name Unknown Address Unknown Organization : Laboratory Report Ordering Provider Test Date Status DAYANARA MORA 01/10/2023 07:19:53 Final Observation Date Value Abnormality Reference (Units ) Status Glucose Point of Care 01/10/2023 07:19:53 111 70-120 (mg/dL) Final Performing Location
--- OUTSIDE RECORDS SUMMARY | 2023-04-19 19:51 | External Medical Summary ---
Author Name Unknown Address Unknown Organization : Laboratory Report Ordering Provider Test Date Status DAYANARA MORA 01/13/2023 11:47:58 Final Observation Date Value Abnormality Reference (Units ) Status Glucose Point of Care 01/13/2023 11:47:58 132 Above high normal 70-120 (mg/dL) Final Performing Location
--- OUTSIDE RECORDS SUMMARY | 2023-04-19 19:51 | External Medical Summary ---
Author Name Unknown Address Unknown Organization : Laboratory Report Ordering Provider Test Date Status DAYANARA MORA 01/07/2023 16:22:28 Final Observation Date Value Abnormality Reference (Units ) Status Glucose Point of Care 01/07/2023 16:22:28 307 Above high normal 70-120 (mg/dL) Final Performing Location
--- OUTSIDE RECORDS SUMMARY | 2023-04-19 19:51 | External Medical Summary ---
Author Name Unknown Address Unknown Organization : Laboratory Report Ordering Provider Test Date Status DAYANARA MORA 01/15/2023 20:28:57 Final Observation Date Value Abnormality Reference (Units ) Status Glucose Point of Care 01/15/2023 20:28:57 379 Above high normal 70-120 (mg/dL) Final Performing Location
--- OUTSIDE RECORDS SUMMARY | 2023-04-19 19:51 | External Medical Summary ---
Author Name Unknown Address Unknown Organization : Laboratory Report Ordering Provider Test Date Status DAYANARA MORA 01/07/2023 19:23:25 Final Observation Date Value Abnormality Reference (Units ) Status Glucose Point of Care 01/07/2023 19:23:25 202 Above high normal 70-120 (mg/dL) Final Performing Location
--- OUTSIDE RECORDS SUMMARY | 2023-04-19 19:51 | External Medical Summary ---
Author Name Unknown Address Unknown Organization : Laboratory Report Ordering Provider Test Date Status DAYANARA MORA 01/12/2023 16:45:42 Final Observation Date Value Abnormality Reference (Units ) Status Glucose Point of Care 01/12/2023 16:45:42 311 Above high normal 70-120 (mg/dL) Final Performing Location
--- OUTSIDE RECORDS SUMMARY | 2023-04-19 19:51 | External Medical Summary ---
Author Name Unknown Address Unknown Organization : Laboratory Report Ordering Provider Test Date Status DAYANARA MORA 01/15/2023 16:13:25 Final Observation Date Value Abnormality Reference (Units ) Status Glucose Point of Care 01/15/2023 16:13:25 44 Below lower panic limits 70-120 (mg/dL) Final Performing Location
--- OUTSIDE RECORDS SUMMARY | 2023-04-19 19:51 | External Medical Summary ---
Author Name Unknown Address Unknown Organization : Laboratory Report Ordering Provider Test Date Status DAYANARA MORA 01/11/2023 20:45:30 Final Observation Date Value Abnormality Reference (Units ) Status Glucose Point of Care 01/11/2023 20:45:30 212 Above high normal 70-120 (mg/dL) Final Performing Location
--- OUTSIDE RECORDS SUMMARY | 2023-04-19 19:51 | External Medical Summary ---
Author Name Unknown Address Unknown Organization K1F:LABORATORY [facility] - [address] [place] [address] Laboratory Report Ordering Provider Test Date Status NICOLE CALDWELL 01/12/2023 20:34:00 Final Warfarin Therapy
INR: 2 .0-3.0 conventional anticoagulation
INR: 2.5- 3.5 high intensity anticoagulation Observation Date Value Abnormality Reference (Units ) Status PT 01/12/2023 20:34:00 12.2 11.6-15.2 (seconds) Final INR 01/12/2023 20:34:00 0.9 0.8-1.2 Final Performing Location LABORATORY [facility] - [address] [place] [address]
--- OUTSIDE RECORDS SUMMARY | 2023-04-19 19:51 | External Medical Summary ---
Author Name Unknown Address Unknown Organization : Laboratory Report Ordering Provider Test Date Status DAYANARA MORA 01/15/2023 23:43:33 Final Observation Date Value Abnormality Reference (Units ) Status Glucose Point of Care 01/15/2023 23:43:33 339 Above high normal 70-120 (mg/dL) Final Performing Location
--- OUTSIDE RECORDS SUMMARY | 2023-04-19 19:51 | External Medical Summary ---
Author Name Unknown Address Unknown Organization K1F:LABORATORY [facility] - [address] [place] [address] Laboratory Report Ordering Provider Test Date Status NICOLE CALDWELL 01/12/2023 20:34:00 Final Observation Date Value Abnormality Reference (Units ) Status BUN 01/12/2023 20:34:00 32 Above high normal 6-20 (mg/dL) Final Creatinine 01/12/2023 20:34:00 1.4 Above high normal 0.6-1.2 (mg/dL) Final Glomerular filtration rate/1.73 sq M.predicted [Volume Rate/Area] in Serum, Plasma or Blood by Creatinine-based formula (CKD-EPI) 01/12/2023 20:34:00 68 >=60 (mL/min) Final eGFR is calculated based on the CKD-EPI 2020 equation SODIUM 01/12/2023 20:34:00 140 135-146 (m mol/L) Final Potassium 01/12/2023 20:34:00 4.7 3.5-5.1 (m mol/L) Final Cl 01/12/2023 20:34:00 104 98-107 (mm ol/L) Final CO2 01/12/2023 20:34:00 27 22-32 (mmo l/L) Final Anion gap 01/12/2023 20:34:00 9 7-15 (mmol /L) Final Glucose 01/12/2023 20:34:00 216 Above high normal 70 -120 (mg/dL) Final Albumin 01/12/2023 20:34:00 4.4 3.8-5.0 (g /dL) Final AST (Aspartate aminotransferase) 01/12/2023 20:34:00 28 10-50 (U/L) Fin al Alk Phos 01/12/2023 20:34:00 92 35-130 (U/ L) Final Bilirubin, Total 01/12/2023 20:34:00 <0.2 <=1 .2 (mg/dL) Final Calcium 01/12/2023 20:34:00 9.5 8.4-10.2 ( mg/dL) Final Protein 01/12/2023 20:34:00 8.3 6.0-8.3 (g /dL) Final ALT (Alanine aminotransferase) 01/12/2023 20:34:00 53 Above high normal 10-50 (U/L) Final Performing Location LABORATORY [facility] - [facility] [address] [place] [address]
--- OUTSIDE RECORDS SUMMARY | 2023-04-19 19:51 | External Medical Summary ---
Author Name Unknown Address Unknown Organization K01:LABORATORY [facility] - [facility] [address] [facility] [address] Laboratory Report Ordering Provider Test Date Status JOSE ALFREDO CALDWELLDADA 01/12/2023 21:09:00 Final Observation Date Value Abnormality Reference (Units ) Status Campylobacter sp DNA.diarrheagenic [Presence] in Stool by JAVED with probe detection 01/12/2023 21:09:00 Negative Negative Final Salmonella sp rpoD gene [Presence] in Stool by JAVED with probe detection 01/12/2023 21:09:00 Negative Negative Final Shigella species+EIEC invasion plasmid antigen H ipaH gene [Presence] in Stool by JAVED with probe detection 01/12/2023 21:09:00 Negative Negative Final Vibrio sp DNA [Identifier] in Specimen by JAVED with probe detection 01/12/2023 21:09:00 Negative Negative Final Yersinia enterocolitica recN gene [Presence] in Stool by JAVED with probe detection 01/12/2023 21:09:00 Negative Negative Final Escherichia coli Stx1 toxin stx1 gene [Presence] in Stool by JAVED with probe detection 01/12/2023 21:09:00 Negative Negative Final Escherichia coli Stx2 toxin stx2 gene [Presence] in Stool by JAVED with probe detection 01/12/2023 21:09:00 Negative Negative Final Norovirus genogroups I and II RNA panel - Stool by JAVED with probe detection 01/12/2023 21:09:00 Negative Negative Final Rotavirus A RNA [Presence] in Stool by JAVED with probe detection 01/12/2023 21:09:00 Negative Negative Final Performing Location LABORATORY [facility] - [facility] [address]
--- OUTSIDE RECORDS SUMMARY | 2023-04-19 19:51 | External Medical Summary ---
Author Name Unknown Address Unknown Organization K01:LABORATORY [facility] - [address] [facility] [place] [id number] Laboratory Report Ordering Provider Test Date Status JAVI,NICOLE 01/12/2023 21:09:00 Final Observation Date Value Abnormality Reference (Units) Status Bacteria identified in Specimen by Culture 01/12/2023 21:09:00 No Aeromonas species or Plesiomonas species isolated. Final Test: Gastrointestinal Patho gen Panel Culture
Specimen Source: Stool
Specimen Type: Stool
Specimen Date: 01/12/2023 9:09 PM
Result Date: 01/15/2023 1:39 PM
Result Status: Final result
Resulting Lab: LABORATORY [facility]
[address] [facility] [address]
[place] [address]

CULTURE

No Aeromonas species or Plesiomonas species isolated.

null Performing Location LABORATORY [facility] [address] [facility] [address]
--- OUTSIDE RECORDS SUMMARY | 2023-04-19 19:51 | External Medical Summary ---
Author Name Unknown Address Unknown Organization K1F:LABORATORY [facility] - [address] [place] [address] Laboratory Report Ordering Provider Test Date Status NICOLE CALDWELL 01/12/2023 21:09:00 Final Observation Date Value Abnormality Reference (Units) Status Source 01/12/2023 21:09:00 Semi-liquid Final Clostridioides difficile toxin and [id number] strain DNA panel - Stool by JAVED with probe detection 01/12/2023 21:09:00 Negative. No C. difficile toxin B gene DNA detected by PCR (Amplified Probe). Negative Final Performing Location LABORATORY [facility] - [address] [facility] [address] [place] [address]
--- OUTSIDE RECORDS SUMMARY | 2023-04-19 19:51 | External Medical Summary ---
Author Name Unknown Address Unknown Organization : Laboratory Report Ordering Provider Test Date Status DAYANARA MORA 01/07/2023 11:17:23 Final Observation Date Value Abnormality Reference (Units ) Status Glucose Point of Care 01/07/2023 11:17:23 155 Above high normal 70-120 (mg/dL) Final Performing Location
--- OUTSIDE RECORDS SUMMARY | 2023-04-19 19:51 | External Medical Summary ---
Author Name Unknown Address Unknown Organization : Laboratory Report Ordering Provider Test Date Status DAYANARA MORA 01/06/2023 11:29:33 Final Observation Date Value Abnormality Reference (Units ) Status Glucose Point of Care 01/06/2023 11:29:33 123 Above high normal 70-120 (mg/dL) Final Performing Location
--- OUTSIDE RECORDS SUMMARY | 2023-04-19 19:51 | External Medical Summary ---
Author Name Unknown Address Unknown Organization : Laboratory Report Ordering Provider Test Date Status DAYANARA MORA 01/10/2023 16:26:18 Final Observation Date Value Abnormality Reference (Units ) Status Glucose Point of Care 01/10/2023 16:26:18 218 Above high normal 70-120 (mg/dL) Final Performing Location
--- OUTSIDE RECORDS SUMMARY | 2023-04-19 19:51 | External Medical Summary ---
Author Name Unknown Address Unknown Organization : Laboratory Report Ordering Provider Test Date Status DAYANARA MORA 01/15/2023 11:15:40 Final Observation Date Value Abnormality Reference (Units ) Status Glucose Point of Care 01/15/2023 11:15:40 267 Above high normal 70-120 (mg/dL) Final Performing Location
--- OUTSIDE RECORDS SUMMARY | 2023-04-19 19:51 | External Medical Summary ---
Author Name Unknown Address Unknown Organization : Laboratory Report Ordering Provider Test Date Status DAYANARA MORA 01/09/2023 06:53:09 Final Observation Date Value Abnormality Reference (Units ) Status Glucose Point of Care 01/09/2023 06:53:09 199 Above high normal 70-120 (mg/dL) Final Performing Location
--- OUTSIDE RECORDS SUMMARY | 2023-04-19 19:51 | External Medical Summary ---
Author Name Unknown Address Unknown Organization : Laboratory Report Ordering Provider Test Date Status DAYANARA MORA 01/08/2023 06:55:05 Final Observation Date Value Abnormality Reference (Units) Status Glucose Point of Care 01/08/2023 06:55:05 35 Below lower panic limits 70-120 (mg/dL) Final POCT DEVICE COMMENT 01/08/2023 06:55:05 Notified Provider Final Performing Location
--- OUTSIDE RECORDS SUMMARY | 2023-04-19 19:51 | External Medical Summary ---
Author Name Unknown Address Unknown Organization : Laboratory Report Ordering Provider Test Date Status DAYANARA MORA 01/14/2023 16:56:02 Final Observation Date Value Abnormality Reference (Units ) Status Glucose Point of Care 01/14/2023 16:56:02 166 Above high normal 70-120 (mg/dL) Final Performing Location
--- OUTSIDE RECORDS SUMMARY | 2023-04-19 19:51 | External Medical Summary ---
Author Name Unknown Address Unknown Organization : Laboratory Report Ordering Provider Test Date Status DAYANARA MORA 01/11/2023 02:24:41 Final Observation Date Value Abnormality Reference (Units ) Status Glucose Point of Care 01/11/2023 02:24:41 267 Above high normal 70-120 (mg/dL) Final Performing Location
--- OUTSIDE RECORDS SUMMARY | 2023-04-19 19:51 | External Medical Summary ---
Author Name Unknown Address Unknown Organization : Laboratory Report Ordering Provider Test Date Status DAYANARA MORA 01/12/2023 10:53:52 Final Observation Date Value Abnormality Reference (Units) Status Glucose Point of Care 01/12/2023 10:53:52 43 Below lower panic limits 70-120 (mg/dL) Final POCT DEVICE COMMENT 01/12/2023 10:53:52 Notified Provider Final Performing Location
--- OUTSIDE RECORDS SUMMARY | 2023-04-19 19:51 | External Medical Summary ---
Author Name Unknown Address Unknown Organization : Laboratory Report Ordering Provider Test Date Status DAYAANRA MORA 01/14/2023 07:20:56 Final Observation Date Value Abnormality Reference (Units ) Status Glucose Point of Care 01/14/2023 07:20:56 177 Above high normal 70-120 (mg/dL) Final Performing Location
--- OUTSIDE RECORDS SUMMARY | 2023-04-19 19:51 | External Medical Summary ---
Author Name Unknown Address Unknown Organization : Laboratory Report Ordering Provider Test Date Status DAYANARA MORA 01/08/2023 19:13:18 Final Observation Date Value Abnormality Reference (Units ) Status Glucose Point of Care 01/08/2023 19:13:18 206 Above high normal 70-120 (mg/dL) Final Performing Location
--- OUTSIDE RECORDS SUMMARY | 2023-04-19 19:51 | External Medical Summary ---
Author Name Unknown Address Unknown Organization K1F:LABORATORY [facility] - [address] [place] [address] Laboratory Report Ordering Provider Test Date Status NICOLE CALDWELL 01/12/2023 21:09:00 Final Observation Date Value Abnormality Reference (Units ) Status Occult Blood (EIA) 01/12/2023 21:09:00 Negative N egative Final Performing Location LABORATORY [facility] - [address] [place] [address]
--- OUTSIDE RECORDS SUMMARY | 2023-04-19 19:51 | External Medical Summary ---
Author Name Unknown Address Unknown Organization : Laboratory Report Ordering Provider Test Date Status DAYANARA MORA 01/13/2023 07:06:05 Final Observation Date Value Abnormality Reference (Units ) Status Glucose Point of Care 01/13/2023 07:06:05 82 70-120 (mg/dL) Final Performing Location
--- OUTSIDE RECORDS SUMMARY | 2023-04-19 19:51 | External Medical Summary ---
Author Name Unknown Address Unknown Organization : Laboratory Report Ordering Provider Test Date Status DAYANARA MORA 01/06/2023 16:29:52 Final Observation Date Value Abnormality Reference (Units ) Status Glucose Point of Care 01/06/2023 16:29:52 191 Above high normal 70-120 (mg/dL) Final Performing Location
--- OUTSIDE RECORDS SUMMARY | 2023-04-19 19:51 | External Medical Summary ---
Author Name Unknown Address Unknown Organization : Laboratory Report Ordering Provider Test Date Status DAYANARA MORA 01/09/2023 11:33:50 Final Observation Date Value Abnormality Reference (Units ) Status Glucose Point of Care 01/09/2023 11:33:50 204 Above high normal 70-120 (mg/dL) Final Performing Location
--- OUTSIDE RECORDS SUMMARY | 2023-04-19 19:51 | External Medical Summary ---
Author Name Unknown Address Unknown Organization K1F:LABORATORY [facility] - [address] [place] [address] Laboratory Report Ordering Provider Test Date Status ADELSO MCARTHUR 01/09/2023 06:21:00 Final Observation Date Value Abnormality Reference (Units ) Status BUN 01/09/2023 06:21:00 26 Above high normal 6-20 (mg/dL) Final Creatinine 01/09/2023 06:21:00 0.9 0.6-1.2 (mg/dL) Final Glomerular filtration rate/1.73 sq M.predicted [Volume Rate/Area] in Serum, Plasma or Blood by Creatinine-based formula (CKD-EPI) 01/09/2023 06:21:00 >90 >=60 (mL/min) Final eGFR is calculated based on the CKD-EPI 2020 equation SODIUM 01/09/2023 06:21:00 144 135-146 (m mol/L) Final Potassium 01/09/2023 06:21:00 4.5 3.5-5.1 (m mol/L) Final Cl 01/09/2023 06:21:00 110 Above high normal 98 -107 (mmol/L) Final CO2 01/09/2023 06:21:00 27 22-32 (mmo l/L) Final Anion gap 01/09/2023 06:21:00 7 7-15 (mmol /L) Final Glucose 01/09/2023 06:21:00 40 Below lower panic li mits 70-120 (mg/dL) Final Calcium 01/09/2023 06:21:00 9.5 8.4-10.2 ( mg/dL) Final Performing Location [facility] [address] [facility] [place] [address]
--- OUTSIDE RECORDS SUMMARY | 2023-04-19 19:51 | External Medical Summary ---
Author Name Unknown Address Unknown Organization : Laboratory Report Ordering Provider Test Date Status DAYANARA MORA 01/11/2023 07:39:37 Final Observation Date Value Abnormality Reference (Units ) Status Glucose Point of Care 01/11/2023 07:39:37 222 Above high normal 70-120 (mg/dL) Final Performing Location
--- OUTSIDE RECORDS SUMMARY | 2023-04-19 19:51 | External Medical Summary ---
Author Name Unknown Address Unknown Organization : Laboratory Report Ordering Provider Test Date Status DAYANARA MORA 01/09/2023 06:25:04 Final Observation Date Value Abnormality Reference (Units ) Status Glucose Point of Care 01/09/2023 06:25:04 41 Below lower panic limits 70-120 (mg/dL) Final Performing Location
--- OUTSIDE RECORDS SUMMARY | 2023-04-19 19:51 | External Medical Summary ---
Author Name Unknown Address Unknown Organization : Laboratory Report Ordering Provider Test Date Status DAYANARA MORA 01/14/2023 12:03:42 Final Observation Date Value Abnormality Reference (Units ) Status Glucose Point of Care 01/14/2023 12:03:42 90 70-120 (mg/dL) Final Performing Location
--- OUTSIDE RECORDS SUMMARY | 2023-04-19 19:51 | External Medical Summary ---
Author Name Unknown Address Unknown Organization K1F:LABORATORY [facility] - [address] [place] [address] Laboratory Report Ordering Provider Test Date Status NICOLE CALDWELL 01/13/2023 18:16:55 Final Observation Date Value Abnormality Reference (Units ) Status Occult Blood (EIA) 01/13/2023 18:16:55 Negative N egative Final Performing Location LABORATORY [facility] - [address] [place] [address]
--- OUTSIDE RECORDS SUMMARY | 2023-04-19 19:51 | External Medical Summary ---
Author Name Unknown Address Unknown Organization : Laboratory Report Ordering Provider Test Date Status DAYANARA MORA 01/16/2023 05:22:20 Final Observation Date Value Abnormality Reference (Units ) Status Glucose Point of Care 01/16/2023 05:22:20 37 Below lower panic limits 70-120 (mg/dL) Final Performing Location
--- OUTSIDE RECORDS SUMMARY | 2023-04-19 19:51 | External Medical Summary ---
Author Name Unknown Address Unknown Organization : Laboratory Report Ordering Provider Test Date Status DAYANARA MORA 01/06/2023 19:29:31 Final Observation Date Value Abnormality Reference (Units ) Status Glucose Point of Care 01/06/2023 19:29:31 303 Above high normal 70-120 (mg/dL) Final Performing Location
--- OUTSIDE RECORDS SUMMARY | 2023-04-19 19:51 | External Medical Summary ---
Author Name Unknown Address Unknown Organization : Laboratory Report Ordering Provider Test Date Status DAYANARA MORA 01/15/2023 21:54:50 Final Observation Date Value Abnormality Reference (Units) Status Glucose Point of Care 01/15/2023 21:54:50 >500 Above upper panic limits 70-120 (mg/dL) Final POCT DEVICE COMMENT 01/15/2023 21:54:50 Notified Provider Final Performing Location
--- OUTSIDE RECORDS SUMMARY | 2023-04-19 19:51 | External Medical Summary ---
Author Name Unknown Address Unknown Organization : Laboratory Report Ordering Provider Test Date Status DAYANARA MORA 01/11/2023 16:51:04 Final Observation Date Value Abnormality Reference (Units ) Status Glucose Point of Care 01/11/2023 16:51:04 252 Above high normal 70-120 (mg/dL) Final Performing Location
--- OUTSIDE RECORDS SUMMARY | 2023-04-19 19:51 | External Medical Summary ---
Author Name Unknown Address Unknown Organization K1F:LABORATORY [facility] - [address] [place] [address] [address] [place] [address] Laboratory Report Ordering Provider Test Date Status ADELSO MCARTHUR 01/09/2023 06:21:00 Final Observation Date Value Abnormality Reference (Units ) Status WBC, Total 01/09/2023 06:21:00 8.92 4.00-10.80 (K/uL) Final RBC 01/09/2023 06:21:00 3.10 4.50-5.25 (M/uL) Final Hemoglobin 01/09/2023 06:21:00 9.5 Below low normal 14.0-16.8 (g/dL) Final HCT 01/09/2023 06:21:00 30.0 Below low normal 40.0-48.4 (%) Final MCV 01/09/2023 06:21:00 96.8 82.0-99.5 (fL) Final MCH 01/09/2023 06:21:00 30.6 27.0-34.0 (pg) Final MCHC 01/09/2023 06:21:00 31.7 32.0-36.0 (g/dL) Final RDW 01/09/2023 06:21:00 14.1 11.5-15.5 (%) Final Platelets 01/09/2023 06:21:00 331 140-400 (K/uL) Final MPV 01/09/2023 06:21:00 8.9 6.6-11.1 (fL) Final Nucleated erythrocytes/100 leukocytes [Ratio] in Blood by Automated count 01/09/2023 06:21:00 0 <=0 (/100 WBCs) Final Performing Location LABORATORY [facility] - [address] [place] [address]
--- OUTSIDE RECORDS SUMMARY | 2023-04-19 19:51 | External Medical Summary ---
Author Name Unknown Address Unknown Organization : Laboratory Report Ordering Provider Test Date Status DAYANARA MORA 01/08/2023 08:02:54 Final Observation Date Value Abnormality Reference (Units ) Status Glucose Point of Care 01/08/2023 08:02:54 224 Above high normal 70-120 (mg/dL) Final Performing Location
--- OUTSIDE RECORDS SUMMARY | 2023-04-19 19:51 | External Medical Summary ---
Author Name Unknown Address Unknown Organization : Laboratory Report Ordering Provider Test Date Status DAYANARA MORA 01/09/2023 02:03:45 Final Observation Date Value Abnormality Reference (Units ) Status Glucose Point of Care 01/09/2023 02:03:45 321 Above high normal 70-120 (mg/dL) Final Performing Location
--- OUTSIDE RECORDS SUMMARY | 2023-04-19 19:51 | External Medical Summary ---
Author Name Unknown Address Unknown Organization : Laboratory Report Ordering Provider Test Date Status DAYANARA MORA 01/06/2023 07:19:41 Final Observation Date Value Abnormality Reference (Units ) Status Glucose Point of Care 01/06/2023 07:19:41 138 Above high normal 70-120 (mg/dL) Final Performing Location
--- OUTSIDE RECORDS SUMMARY | 2023-04-19 19:51 | External Medical Summary ---
Author Name Unknown Address Unknown Organization : Laboratory Report Ordering Provider Test Date Status DAYANARA MORA 01/08/2023 02:31:34 Final Observation Date Value Abnormality Reference (Units ) Status Glucose Point of Care 01/08/2023 02:31:34 147 Above high normal 70-120 (mg/dL) Final Performing Location
--- OUTSIDE RECORDS SUMMARY | 2023-04-19 19:51 | External Medical Summary ---
Author Name Unknown Address Unknown Organization K01:LAB[facility]ATORY [facility] - [address] [place] [address] Laboratory Report Ordering Provider Test Date Status ADELSO MCARTHUR 01/09/2023 13:49:00 Final Observation Date Value Abnormality Reference (Units) Status Bacteria identified in Specimen by Culture 01/09/2023 13:49:00 No Aeromonas species or Plesiomonas species isolated. Final Test: Gastrointestinal Patho gen Panel Culture
Specimen Source: Stool
Specimen Type: Stool
Specimen Date: 01/09/2023 1:49 PM
Result Date: 01/12/2023 9:45 AM
Result Status: Final result
Resulting Lab: [facility]
[address]
[place] [address]

CULTURE

No Aeromonas species or Plesiomonas species isolated.

null Performing Location LABORATORY [facility] - [address] [facility] [address]
--- OUTSIDE RECORDS SUMMARY | 2023-04-19 19:51 | External Medical Summary ---
Author Name Unknown Address Unknown Organization : Laboratory Report Ordering Provider Test Date Status DAYANARA MORA 01/09/2023 19:59:44 Final Observation Date Value Abnormality Reference (Units ) Status Glucose Point of Care 01/09/2023 19:59:44 160 Above high normal 70-120 (mg/dL) Final Performing Location
--- OUTSIDE RECORDS SUMMARY | 2023-04-19 19:51 | External Medical Summary ---
Author Name Unknown Address Unknown Organization : Laboratory Report Ordering Provider Test Date Status DAYANARA MORA 01/06/2023 03:33:23 Final Observation Date Value Abnormality Reference (Units ) Status Glucose Point of Care 01/06/2023 03:33:23 202 Above high normal 70-120 (mg/dL) Final Performing Location
--- OUTSIDE RECORDS SUMMARY | 2023-04-19 19:51 | External Medical Summary ---
Author Name Unknown Address Unknown Organization : Laboratory Report Ordering Provider Test Date Status DAYANARA MORA 01/10/2023 19:44:29 Final Observation Date Value Abnormality Reference (Units ) Status Glucose Point of Care 01/10/2023 19:44:29 122 Above high normal 70-120 (mg/dL) Final Performing Location
--- OUTSIDE RECORDS SUMMARY | 2023-04-19 19:51 | External Medical Summary ---
Author Name Unknown Address Unknown Organization : Laboratory Report Ordering Provider Test Date Status DAYANARA MORA 01/11/2023 12:03:28 Final Observation Date Value Abnormality Reference (Units ) Status Glucose Point of Care 01/11/2023 12:03:28 153 Above high normal 70-120 (mg/dL) Final Performing Location
--- OUTSIDE RECORDS SUMMARY | 2023-04-19 19:51 | External Medical Summary ---
Author Name Unknown Address Unknown Organization : Laboratory Report Ordering Provider Test Date Status DAYANARA MORA 01/15/2023 16:43:45 Final Observation Date Value Abnormality Reference (Units ) Status Glucose Point of Care 01/15/2023 16:43:45 139 Above high normal 70-120 (mg/dL) Final Performing Location
--- OUTSIDE RECORDS SUMMARY | 2023-04-19 19:52 | External Medical Summary ---
Author Name Unknown Address Unknown Organization : Laboratory Report Ordering Provider Test Date Status DAYANARA MORA 01/05/2023 11:02:15 Final Observation Date Value Abnormality Reference (Units ) Status Glucose Point of Care 01/05/2023 11:02:15 427 Above high normal 70-120 (mg/dL) Final Performing Location
--- OUTSIDE RECORDS SUMMARY | 2023-04-19 19:52 | External Medical Summary ---
Author Name Unknown Address Unknown Organization : Laboratory Report Ordering Provider Test Date Status DAYANARA MORA 01/03/2023 12:03:53 Final Observation Date Value Abnormality Reference (Units ) Status Glucose Point of Care 01/03/2023 12:03:53 260 Above high normal 70-120 (mg/dL) Final Performing Location
--- OUTSIDE RECORDS SUMMARY | 2023-04-19 19:52 | External Medical Summary ---
Author Name Unknown Address Unknown Organization : Laboratory Report Ordering Provider Test Date Status DAYANARA MORA 01/02/2023 20:48:57 Final Observation Date Value Abnormality Reference (Units ) Status Glucose Point of Care 01/02/2023 20:48:57 308 Above high normal 70-120 (mg/dL) Final Performing Location
--- OUTSIDE RECORDS SUMMARY | 2023-04-19 19:52 | External Medical Summary ---
Author Name Unknown Address Unknown Organization K1F:LABORATORY [facility] - [address] [place] [address] Laboratory Report Ordering Provider Test Date Status ELIEL,CHENCHO 01/04/2023 09:42:00 Final Observation Date Value Abnormality Reference (Units ) Status T4, Free 01/04/2023 09:42:00 0.7 Below low normal 0.9 -1.7 (ng/dL) Final Performing Location LABORATORY [facility] - [address] [place] [address]
--- OUTSIDE RECORDS SUMMARY | 2023-04-19 19:52 | External Medical Summary ---
Author Name Unknown Address Unknown Organization : Laboratory Report Ordering Provider Test Date Status DAYANARA MORA 01/04/2023 16:05:05 Final Observation Date Value Abnormality Reference (Units ) Status Glucose Point of Care 01/04/2023 16:05:05 180 Above high normal 70-120 (mg/dL) Final Performing Location
--- OUTSIDE RECORDS SUMMARY | 2023-04-19 19:52 | External Medical Summary ---
Author Name Unknown Address Unknown Organization : Laboratory Report Ordering Provider Test Date Status DAYANARA MORA 01/01/2023 20:20:38 Final Observation Date Value Abnormality Reference (Units ) Status Glucose Point of Care 01/01/2023 20:20:38 249 Above high normal 70-120 (mg/dL) Final Performing Location
--- OUTSIDE RECORDS SUMMARY | 2023-04-19 19:52 | External Medical Summary ---
Author Name Unknown Address Unknown Organization : Laboratory Report Ordering Provider Test Date Status DAYANARA MORA 01/03/2023 20:12:48 Final Observation Date Value Abnormality Reference (Units ) Status Glucose Point of Care 01/03/2023 20:12:48 353 Above high normal 70-120 (mg/dL) Final Performing Location
--- OUTSIDE RECORDS SUMMARY | 2023-04-19 19:52 | External Medical Summary ---
Author Name Unknown Address Unknown Organization K1F:LABORATORY [facility] - [address] [place] [address] Laboratory Report Ordering Provider Test Date Status CHENCHO JULIAN 01/04/2023 09:42:00 Final Observation Date Value Abnormality Reference (Units ) Status BUN 01/04/2023 09:42:00 29 Above high normal 6-20 (mg/dL) Final Creatinine 01/04/2023 09:42:00 1.0 0.6-1.2 (mg/dL) Final Glomerular filtration rate/1.73 sq M.predicted [Volume Rate/Area] in Serum, Plasma or Blood by Creatinine-based formula (CKD-EPI) 01/04/2023 09:42:00 >90 >=60 (mL/min) Final eGFR is calculated based on the CKD-EPI 2020 equation SODIUM 01/04/2023 09:42:00 133 Below low normal 135 -146 (mmol/L) Final Potassium 01/04/2023 09:42:00 4.3 3.5-5.1 (m mol/L) Final Cl 01/04/2023 09:42:00 100 98-107 (mm ol/L) Final CO2 01/04/2023 09:42:00 24 22-32 (mmo l/L) Final Anion gap 01/04/2023 09:42:00 9 7-15 (mmol /L) Final Glucose 01/04/2023 09:42:00 575 Above upper panic li mits 70-120 (mg/dL) Final Calcium 01/04/2023 09:42:00 8.9 8.4-10.2 ( mg/dL) Final Performing Location LABORATORY [facility] - [address] [place] [address]
--- OUTSIDE RECORDS SUMMARY | 2023-04-19 19:52 | External Medical Summary ---
Author Name Unknown Address Unknown Organization : Laboratory Report Ordering Provider Test Date Status DAYANARA MORA 12/31/2022 20:05:47 Final Observation Date Value Abnormality Reference (Units ) Status Glucose Point of Care 12/31/2022 20:05:47 300 Above high normal 70-120 (mg/dL) Final Performing Location
--- OUTSIDE RECORDS SUMMARY | 2023-04-19 19:52 | External Medical Summary ---
Author Name Unknown Address Unknown Organization : Laboratory Report Ordering Provider Test Date Status DAYANARA MORA 01/05/2023 14:55:10 Final Observation Date Value Abnormality Reference (Units ) Status Glucose Point of Care 01/05/2023 14:55:10 62 Below low normal 70-120 (mg/dL) Final Performing Location
--- OUTSIDE RECORDS SUMMARY | 2023-04-19 19:52 | External Medical Summary ---
Author Name Unknown Address Unknown Organization : Laboratory Report Ordering Provider Test Date Status DAYANARA MORA 01/04/2023 11:59:57 Final Observation Date Value Abnormality Reference (Units ) Status Glucose Point of Care 01/04/2023 11:59:57 227 Above high normal 70-120 (mg/dL) Final Performing Location
--- OUTSIDE RECORDS SUMMARY | 2023-04-19 19:52 | External Medical Summary ---
Author Name Unknown Address Unknown Organization : Laboratory Report Ordering Provider Test Date Status DAYANARA MORA 01/02/2023 07:33:55 Final Observation Date Value Abnormality Reference (Units ) Status Glucose Point of Care 01/02/2023 07:33:55 313 Above high normal 70-120 (mg/dL) Final Performing Location
--- OUTSIDE RECORDS SUMMARY | 2023-04-19 19:52 | External Medical Summary ---
Author Name Unknown Address Unknown Organization : Laboratory Report Ordering Provider Test Date Status DAYANARA MORA 01/05/2023 07:18:40 Final Observation Date Value Abnormality Reference (Units ) Status Glucose Point of Care 01/05/2023 07:18:40 251 Above high normal 70-120 (mg/dL) Final Performing Location
--- OUTSIDE RECORDS SUMMARY | 2023-04-19 19:52 | External Medical Summary ---
Author Name Unknown Address Unknown Organization : Laboratory Report Ordering Provider Test Date Status DAYANARA MORA 01/03/2023 21:34:17 Final Observation Date Value Abnormality Reference (Units) Status Glucose Point of Care 01/03/2023 21:34:17 >500 Above upper panic limits 70-120 (mg/dL) Final POCT DEVICE COMMENT 01/03/2023 21:34:17 Notified Provider Final Performing Location
--- OUTSIDE RECORDS SUMMARY | 2023-04-19 19:52 | External Medical Summary ---
Author Name Unknown Address Unknown Organization : Laboratory Report Ordering Provider Test Date Status DAYANARA MORA 01/02/2023 11:40:26 Final Observation Date Value Abnormality Reference (Units ) Status Glucose Point of Care 01/02/2023 11:40:26 333 Above high normal 70-120 (mg/dL) Final Performing Location
--- OUTSIDE RECORDS SUMMARY | 2023-04-19 19:52 | External Medical Summary ---
Author Name Unknown Address Unknown Organization : Laboratory Report Ordering Provider Test Date Status DAYANARA MORA 01/05/2023 16:25:26 Final Observation Date Value Abnormality Reference (Units ) Status Glucose Point of Care 01/05/2023 16:25:26 177 Above high normal 70-120 (mg/dL) Final Performing Location
--- OUTSIDE RECORDS SUMMARY | 2023-04-19 19:52 | External Medical Summary ---
Author Name Unknown Address Unknown Organization K1F:LAB[facility]ATORY [facility] - [address] [place] [address] Laboratory Report Ordering Provider Test Date Status CHENCHO JULIAN 01/04/2023 09:42:00 Final Observation Date Value Abnormality Reference (Units ) Status TSH 01/04/2023 09:42:00 60.20 Above high normal 0. 27-4.20 (uIU/mL) Final Performing Location LAB[facility]ATORY [facility] - [address] [place] [address]
--- OUTSIDE RECORDS SUMMARY | 2023-04-19 19:52 | External Medical Summary ---
Author Name Unknown Address Unknown Organization : Laboratory Report Ordering Provider Test Date Status DAYANARA MORA 01/04/2023 07:43:23 Final Observation Date Value Abnormality Reference (Units ) Status Glucose Point of Care 01/04/2023 07:43:23 338 Above high normal 70-120 (mg/dL) Final Performing Location
--- OUTSIDE RECORDS SUMMARY | 2023-04-19 19:52 | External Medical Summary ---
Author Name Unknown Address Unknown Organization : Laboratory Report Ordering Provider Test Date Status DAYANARA MORA 01/03/2023 22:26:14 Final Observation Date Value Abnormality Reference (Units ) Status Glucose Point of Care 01/03/2023 22:26:14 417 Above high normal 70-120 (mg/dL) Final Performing Location
--- OUTSIDE RECORDS SUMMARY | 2023-04-19 19:52 | External Medical Summary ---
Author Name Unknown Address Unknown Organization : Laboratory Report Ordering Provider Test Date Status DAYANARA MORA 01/01/2023 07:25:00 Final Observation Date Value Abnormality Reference (Units ) Status Glucose Point of Care 01/01/2023 07:25:00 356 Above high normal 70-120 (mg/dL) Final Performing Location
--- OUTSIDE RECORDS SUMMARY | 2023-04-19 19:52 | External Medical Summary ---
Author Name Unknown Address Unknown Organization : Laboratory Report Ordering Provider Test Date Status DAYANARA MORA 12/31/2022 16:40:31 Final Observation Date Value Abnormality Reference (Units ) Status Glucose Point of Care 12/31/2022 16:40:31 254 Above high normal 70-120 (mg/dL) Final Performing Location
--- OUTSIDE RECORDS SUMMARY | 2023-04-19 19:52 | External Medical Summary ---
Author Name Unknown Address Unknown Organization : Laboratory Report Ordering Provider Test Date Status DAYANARA MORA 01/05/2023 02:34:34 Final Observation Date Value Abnormality Reference (Units ) Status Glucose Point of Care 01/05/2023 02:34:34 232 Above high normal 70-120 (mg/dL) Final Performing Location
--- OUTSIDE RECORDS SUMMARY | 2023-04-19 19:52 | External Medical Summary ---
Author Name Unknown Address Unknown Organization K1F:LABORATORY [facility] - [address] [place] [address] Laboratory Report Ordering Provider Test Date Status RANULFO DUNN JR 01/01/2023 22:05:17 Final Observation Date Value Abnormality Reference (Units) Status Source 01/01/2023 22:05:17 Semi-liquid Final Clostridioides difficile toxin and [id number] strain DNA panel - Stool by [facility] with probe detection 01/01/2023 22:05:17 Negative. No C. difficile toxin B gene DNA detected by PCR (Amplified Probe). Negative Final Performing Location LAB[facility]ATORY [facility] - [address] [place] [address]
--- OUTSIDE RECORDS SUMMARY | 2023-04-19 19:52 | External Medical Summary ---
Author Name Unknown Address Unknown Organization : Laboratory Report Ordering Provider Test Date Status DAYANARA MORA 01/01/2023 11:38:09 Final Observation Date Value Abnormality Reference (Units ) Status Glucose Point of Care 01/01/2023 11:38:09 419 Above high normal 70-120 (mg/dL) Final Performing Location
--- OUTSIDE RECORDS SUMMARY | 2023-04-19 19:52 | External Medical Summary ---
Author Name Unknown Address Unknown Organization : Laboratory Report Ordering Provider Test Date Status DAYANARA MORA 01/03/2023 16:47:38 Final Observation Date Value Abnormality Reference (Units ) Status Glucose Point of Care 01/03/2023 16:47:38 75 70-120 (mg/dL) Final Performing Location
--- OUTSIDE RECORDS SUMMARY | 2023-04-19 19:52 | External Medical Summary ---
Author Name Unknown Address Unknown Organization : Laboratory Report Ordering Provider Test Date Status DAYANARA MORA 01/02/2023 16:57:58 Final Observation Date Value Abnormality Reference (Units ) Status Glucose Point of Care 01/02/2023 16:57:58 327 Above high normal 70-120 (mg/dL) Final Performing Location
--- OUTSIDE RECORDS SUMMARY | 2023-04-19 19:52 | External Medical Summary ---
Author Name Unknown Address Unknown Organization : Laboratory Report Ordering Provider Test Date Status DAYANARA MORA 01/04/2023 19:44:27 Final Observation Date Value Abnormality Reference (Units ) Status Glucose Point of Care 01/04/2023 19:44:27 203 Above high normal 70-120 (mg/dL) Final Performing Location
--- OUTSIDE RECORDS SUMMARY | 2023-04-19 19:52 | External Medical Summary ---
Author Name Unknown Address Unknown Organization : Laboratory Report Ordering Provider Test Date Status DAYANARA MORA 01/04/2023 09:25:35 Final Observation Date Value Abnormality Reference (Units) Status Glucose Point of Care 01/04/2023 09:25:35 >500 Above upper panic limits 70-120 (mg/dL) Final POCT DEVICE COMMENT 01/04/2023 09:25:35 Notified Provider Final Performing Location
--- OUTSIDE RECORDS SUMMARY | 2023-04-19 19:52 | External Medical Summary ---
Author Name Unknown Address Unknown Organization : Laboratory Report Ordering Provider Test Date Status DAYANARA MORA 01/03/2023 16:31:17 Final Observation Date Value Abnormality Reference (Units ) Status Glucose Point of Care 01/03/2023 16:31:17 63 Below low normal 70-120 (mg/dL) Final Performing Location
--- OUTSIDE RECORDS SUMMARY | 2023-04-19 19:52 | External Medical Summary ---
Author Name Unknown Address Unknown Organization : Laboratory Report Ordering Provider Test Date Status DAYANARA MORA 01/04/2023 15:18:52 Final Observation Date Value Abnormality Reference (Units ) Status Glucose Point of Care 01/04/2023 15:18:52 50 Below low normal 70-120 (mg/dL) Final Performing Location
--- OUTSIDE RECORDS SUMMARY | 2023-04-19 19:53 | External Medical Summary ---
Author Name Unknown Address Unknown Organization : Laboratory Report Ordering Provider Test Date Status ALESIA METZ 12/28/2022 21:37:49 Final Observation Date Value Abnormality Reference (Units ) Status Glucose Point of Care 12/28/2022 21:37:49 204 Above high normal 70-120 (mg/dL) Final Performing Location
--- OUTSIDE RECORDS SUMMARY | 2023-04-19 19:53 | External Medical Summary ---
Author Name Unknown Address Unknown Organization K1F:LABORATORY [facility] - [address] [place] [address] Laboratory Report Ordering Provider Test Date Status ALESIA METZ 12/28/2022 04:42:00 Final Observation Date Value Abnormality Reference (Units ) Status Albumin 12/28/2022 04:42:00 3.5 Below low normal 3.8-5.0 (g/dL) Final AST (Aspartate aminotransferase) 12/28/2022 04:42:00 43 10-50 (U/L) Final Alk Phos 12/28/2022 04:42:00 97 35-130 (U/L) Final ALT (Alanine aminotransferase) 12/28/2022 04:42:00 123 Above high normal 10-50 (U/L) Final Bilirubin, Total 12/28/2022 04:42:00 0.2 <=1.2 (mg/dL) Final Bilirubin, Direct 12/28/2022 04:42:00 <0.2 0.0-0.3 (mg/dL) Final Protein 12/28/2022 04:42:00 6.5 6.0-8.3 (g/dL) Final Performing Location LAB[facility]ATORY [facility] - [address] [place] [address]
--- OUTSIDE RECORDS SUMMARY | 2023-04-19 19:53 | External Medical Summary ---
Author Name Unknown Address Unknown Organization K1F:LAB[facility]ATORY [facility] [address] [place] [address] Laboratory Report Ordering Provider Test Date Status NORMA MCCORMICK 12/27/2022 12:35:24 Final Observation Date Value Abnormality Reference (Units ) Status Troponin T 12/27/2022 12:35:24 14 <=22 (ng/ L) Final Performing Location LAB[facility]ATORY [facility] - [address] [place] [address]
--- OUTSIDE RECORDS SUMMARY | 2023-04-19 19:53 | External Medical Summary ---
Author Name Unknown Address Unknown Organization : Laboratory Report Ordering Provider Test Date Status DAYANARA MORA 12/30/2022 16:50:11 Final Observation Date Value Abnormality Reference (Units ) Status Glucose Point of Care 12/30/2022 16:50:11 165 Above high normal 70-120 (mg/dL) Final Performing Location
--- OUTSIDE RECORDS SUMMARY | 2023-04-19 19:53 | External Medical Summary ---
Author Name Unknown Address Unknown Organization K1F:LABORATORY [facility] - [address] [place] [address] Laboratory Report Ordering Provider Test Date Status SIMONA IVEY 12/29/2022 05:17:00 Final Observation Date Value Abnormality Reference (Units ) Status WBC, Total 12/29/2022 05:17:00 10.48 4.00-10.80 (K/uL) Final RBC 12/29/2022 05:17:00 3.50 4.50-5.25 (M/uL) Final Hemoglobin 12/29/2022 05:17:00 10.7 Below low normal 14.0-16.8 (g/dL) Final HCT 12/29/2022 05:17:00 33.7 Below low normal 40.0-48.4 (%) Final MCV 12/29/2022 05:17:00 96.3 82.0-99.5 (fL) Final MCH 12/29/2022 05:17:00 30.6 27.0-34.0 (pg) Final MCHC 12/29/2022 05:17:00 31.8 32.0-36.0 (g/dL) Final RDW 12/29/2022 05:17:00 13.7 11.5-15.5 (%) Final Platelets 12/29/2022 05:17:00 349 140-400 (K/uL) Final MPV 12/29/2022 05:17:00 8.9 6.6-11.1 (fL) Final Nucleated erythrocytes/100 leukocytes [Ratio] in Blood by Automated count 12/29/2022 05:17:00 0 <=0 (/100 WBCs) Final Performing Location LAB[facility]ATORY [facility] - [address] [place] [address]
--- OUTSIDE RECORDS SUMMARY | 2023-04-19 19:53 | External Medical Summary ---
Author Name Unknown Address Unknown Organization : Laboratory Report Ordering Provider Test Date Status ALESIA METZ 12/28/2022 12:11:08 Final Observation Date Value Abnormality Reference (Units ) Status Glucose Point of Care 12/28/2022 12:11:08 54 Below low normal 70-120 (mg/dL) Final Performing Location
--- OUTSIDE RECORDS SUMMARY | 2023-04-19 19:53 | External Medical Summary ---
Author Name Unknown Address Unknown Organization : Laboratory Report Ordering Provider Test Date Status NORMA MCCORMICK 12/27/2022 14:59:08 Final Observation Date Value Abnormality Reference (Units ) Status Glucose Point of Care 12/27/2022 14:59:08 460 Above high normal 70-120 (mg/dL) Final Performing Location
--- OUTSIDE RECORDS SUMMARY | 2023-04-19 19:53 | External Medical Summary ---
Author Name Unknown Address Unknown Organization : Laboratory Report Ordering Provider Test Date Status DAYANARA MORA 12/29/2022 20:04:21 Final Observation Date Value Abnormality Reference (Units ) Status Glucose Point of Care 12/29/2022 20:04:21 138 Above high normal 70-120 (mg/dL) Final Performing Location
--- OUTSIDE RECORDS SUMMARY | 2023-04-19 19:53 | External Medical Summary ---
Author Name Unknown Address Unknown Organization K1F:LABORATORY [facility] - [address] [place] [address] Laboratory Report Ordering Provider Test Date Status ALESIA METZ 12/29/2022 13:45:17 Final SCREENING Observation Date Value Abnormality Reference (Units ) Status SARS Coronavirus 2 12/29/2022 13:45:17 Negative N egative Final No SARS-CoV2 Coronavirus RNA detected by PCR (amplified probe).
This express test was developed and its performance characteristics determined by [facility]. It has not been cleared or approved [...] (RT-PCR) test, or a Centers for Disease Control-acceptable equivalent. The test is performed in a high complexity Clinical Laboratory Improvement Amendments-(CLIA) certified laboratory. The test is acceptable for SARS-CoV-2 diagnosis, surveillance, and travel within the [place] and to most countries. Please check with local testing authorities about requirements before travel.

The validation of bronchial specimens, tracheal aspirates, and sputum for this assay was developed and performance characteristics determined by [facility]. The validation of alternate specimen types has not been cleared or approved by the U.S. Food and Drug Administration (FDA). It has been determined that such clearance is not necessary. Influenza virus A RNA [Prese nce] in Specimen by [facility] with probe detection 12/29/2022 13:45:17 Negative Negative Final No Influenza A RNA detected by PCR (amplified probe) Influenza virus B RNA [Prese nce] in Specimen by [facility]AVED with probe detection 12/29/2022 13:45:17 Negative Negative Final No Influenza B RNA detected by PCR (amplified probe) Respiratory syncytial virus RNA [Identifier] in Specimen by [facility] with probe detection 12/29/2022 13:45:17 Negative Negative Final No Respiratory Syncytial Vir us RNA detected by PCR (amplified probe) Performing Location [address]ATORY [address] [facility] [address]
--- OUTSIDE RECORDS SUMMARY | 2023-04-19 19:53 | External Medical Summary ---
Author Name Unknown Address Unknown Organization : Laboratory Report Ordering Provider Test Date Status DAYANARA MORA 12/30/2022 07:55:02 Final Observation Date Value Abnormality Reference (Units ) Status Glucose Point of Care 12/30/2022 07:55:02 158 Above high normal 70-120 (mg/dL) Final Performing Location
--- OUTSIDE RECORDS SUMMARY | 2023-04-19 19:53 | External Medical Summary ---
Author Name Unknown Address Unknown Organization : Laboratory Report Ordering Provider Test Date Status ALESIA METZ 12/28/2022 16:08:55 Final Observation Date Value Abnormality Reference (Units ) Status Glucose Point of Care 12/28/2022 16:08:55 155 Above high normal 70-120 (mg/dL) Final Performing Location
--- OUTSIDE RECORDS SUMMARY | 2023-04-19 19:53 | External Medical Summary ---
Author Name Unknown Address Unknown Organization : Laboratory Report Ordering Provider Test Date Status ALESIA METZ 12/28/2022 07:41:03 Final Observation Date Value Abnormality Reference (Units ) Status Glucose Point of Care 12/28/2022 07:41:03 284 Above high normal 70-120 (mg/dL) Final Performing Location
--- OUTSIDE RECORDS SUMMARY | 2023-04-19 19:53 | External Medical Summary ---
Author Name Unknown Address Unknown Organization K1F:[facility] - [address] [place] [address] Laboratory Report Ordering Provider Test Date Status NAM LEIVA 12/28/2022 04:42:00 Final Observation Date Value Abnormality Reference (Units ) Status WBC, Total 12/28/2022 04:42:00 9.52 4.00-10.80 (K/uL) Final RBC 12/28/2022 04:42:00 3.45 4.50-5.25 (M/uL) Final Hemoglobin 12/28/2022 04:42:00 10.6 Below low normal 14.0-16.8 (g/dL) Final HCT 12/28/2022 04:42:00 32.7 Below low normal 40.0-48.4 (%) Final MCV 12/28/2022 04:42:00 94.8 82.0-99.5 (fL) Final MCH 12/28/2022 04:42:00 30.7 27.0-34.0 (pg) Final MCHC 12/28/2022 04:42:00 32.4 32.0-36.0 (g/dL) Final RDW 12/28/2022 04:42:00 13.4 11.5-15.5 (%) Final Platelets 12/28/2022 04:42:00 348 140-400 (K/uL) Final MPV 12/28/2022 04:42:00 8.8 6.6-11.1 (fL) Final Nucleated erythrocytes/100 leukocytes [Ratio] in Blood by Automated count 12/28/2022 04:42:00 0 <=0 (/100 WBCs) Final Performing Location [facility] - [address] [place] [address]
--- OUTSIDE RECORDS SUMMARY | 2023-04-19 19:53 | External Medical Summary ---
Author Name Unknown Address Unknown Organization K1F:LABORATORY [address] [address] Laboratory Report Ordering Provider Test Date Status NORMA MCCORMICK 12/27/2022 12:49:00 Final Observation Date Value Abnormality Reference (Units ) Status Bacteria identified in Specimen by Culture 12/27/2022 12:49:00 No growth Final Test: Culture, Blood
[facility] Source: Blood, Venous
Specimen Type: Blood
Specimen Date: 12/27/2022 12:49 PM
Result Date: 01/01/2023 1:01 PM
Result Status: Final result
Resulting Lab: [facility]
[address] [place] [address]
[facility] [id number]

CULTURE

No growth

null Performing Location [facility] - [address] [place] [address] [facility] [address]
--- OUTSIDE RECORDS SUMMARY | 2023-04-19 19:53 | External Medical Summary ---
Author Name Unknown Address Unknown Organization K1F:[facility] - [address] [place] [address] Laboratory Report Ordering Provider Test Date Status ALESIA METZ 12/29/2022 12:05:00 Final Observation Date Value Abnormality Reference (Units ) Status BUN 12/29/2022 12:05:00 22 Above high normal 6-20 (mg/dL) Final Creatinine 12/29/2022 12:05:00 1.0 0.6-1.2 (mg/dL) Final Glomerular filtration rate/1.73 sq M.predicted [Volume Rate/Area] in Serum, Plasma or Blood by Creatinine-based formula (CKD-EPI) 12/29/2022 12:05:00 >90 >=60 (mL/min) Final eGFR is calculated based on the CKD-EPI 2020 equation SODIUM 12/29/2022 12:05:00 138 135-146 (m mol/L) Final Potassium 12/29/2022 12:05:00 4.5 3.5-5.1 (m mol/L) Final Cl 12/29/2022 12:05:00 102 98-107 (mm ol/L) Final CO2 12/29/2022 12:05:00 28 22-32 (mmo l/L) Final Anion gap 12/29/2022 12:05:00 8 7-15 (mmol /L) Final Glucose 12/29/2022 12:05:00 148 Above high normal 70 -120 (mg/dL) Final Calcium 12/29/2022 12:05:00 8.6 8.4-10.2 ( mg/dL) Final Performing Location [facility] - [address] [place] [address]
--- OUTSIDE RECORDS SUMMARY | 2023-04-19 19:53 | External Medical Summary ---
Author Name Unknown Address Unknown Organization : Laboratory Report Ordering Provider Test Date Status DAYANARA MORA 12/31/2022 11:39:29 Final Observation Date Value Abnormality Reference (Units ) Status Glucose Point of Care 12/31/2022 11:39:29 281 Above high normal 70-120 (mg/dL) Final Performing Location
--- OUTSIDE RECORDS SUMMARY | 2023-04-19 19:53 | External Medical Summary ---
Author Name Unknown Address Unknown Organization K01:[facility] - [address] [facility] [place] [address] Laboratory Report Ordering Provider Test Date Status EZ SALDAÑA 12/29/2022 12:05:00 Final Observation Date Value Abnormality Reference (Units ) Status Triglyceride 12/29/2022 12:05:00 96 <=174 ( mg/dL) Final Triglyceride Reference Range s (mg/dL):
<150 Acceptable
150-174 Borderline high
175-499 High
>=500 Very high Cholesterol 12/29/2022 12:05:00 196 <200 (mg /dL) Final Total Cholesterol Reference Ranges (mg/dL):
<200 Desirable
200-239 Borderline high
>=240 High HDL 12/29/2022 12:05:00 43 >39 (mg/dL ) Final HDL Cholesterol Reference Ra nges (mg/dL):
>=60 High (Desirable)
<50 Low (Undesirable) For Females
<40 Low (Undesirable) For Males NON-HDL CHOLESTEROL 12/29/2022 12:05:00 153 <=159 (mg/dL) Final Non-HDL Cholesterol Referenc e Range (mg/dL):
<100 Target level for high risk ASCVD patient
<130 Optimal for general population
130-159 Near optimal for general population
160-189 Borderline High
190-219 High
>=220 Very High LDL, (calculated) 12/29/2022 12:05:00 134 Above high n ormal <=129 (mg/dL) Final LDL Cholesterol Reference Ra nges (mg/dL):
<70 Target level for high risk ASCVD patient
<100 Optimal for general population
100-129 Near optimal for general population
130-159 Borderline high
160-189 High
>=190 Very high Performing Location [facility] [place] - [address] [facility] [address]
--- OUTSIDE RECORDS SUMMARY | 2023-04-19 19:53 | External Medical Summary ---
Author Name Unknown Address Unknown Organization : Laboratory Report Ordering Provider Test Date Status ALESIA METZ 12/28/2022 11:13:12 Final Observation Date Value Abnormality Reference (Units ) Status Glucose Point of Care 12/28/2022 11:13:12 141 Above high normal 70-120 (mg/dL) Final Performing Location
--- OUTSIDE RECORDS SUMMARY | 2023-04-19 19:53 | External Medical Summary ---
Author Name Unknown Address Unknown Organization K1F:[facility] - [address] [place] [address] Laboratory Report Ordering Provider Test Date Status SIMONA IVEY 12/29/2022 05:17:00 Final Observation Date Value Abnormality Reference (Units ) Status BUN 12/29/2022 05:17:00 22 Above high normal 6-20 (mg/dL) Final Creatinine 12/29/2022 05:17:00 1.2 0.6-1.2 (mg/dL) Final Glomerular filtration rate/1.73 sq M.predicted [Volume Rate/Area] in Serum, Plasma or Blood by Creatinine-based formula (CKD-EPI) 12/29/2022 05:17:00 84 >=60 (mL/min) Final eGFR is calculated based on the CKD-EPI 2020 equation SODIUM 12/29/2022 05:17:00 141 135-146 (m mol/L) Final Potassium 12/29/2022 05:17:00 5.3 Above high normal 3. 5-5.1 (mmol/L) Final Cl 12/29/2022 05:17:00 103 98-107 (mm ol/L) Final CO2 12/29/2022 05:17:00 33 Above high normal 22 -32 (mmol/L) Final Anion gap 12/29/2022 05:17:00 5 Below low normal 7-1 5 (mmol/L) Final Glucose 12/29/2022 05:17:00 167 Above high normal 70 -120 (mg/dL) Final Calcium 12/29/2022 05:17:00 8.9 8.4-10.2 ( mg/dL) Final Performing Location [facility] - [address] [place] [address]
--- OUTSIDE RECORDS SUMMARY | 2023-04-19 19:53 | External Medical Summary ---
Author Name Unknown Address Unknown Organization : Laboratory Report Ordering Provider Test Date Status ALESIA METZ 12/29/2022 08:17:19 Final Observation Date Value Abnormality Reference (Units ) Status Glucose Point of Care 12/29/2022 08:17:19 185 Above high normal 70-120 (mg/dL) Final Performing Location
--- OUTSIDE RECORDS SUMMARY | 2023-04-19 19:53 | External Medical Summary ---
Author Name Unknown Address Unknown Organization : Laboratory Report Ordering Provider Test Date Status CASTRO BRUNO 12/27/2022 21:48:30 Final Observation Date Value Abnormality Reference (Units ) Status Glucose Point of Care 12/27/2022 21:48:30 469 Above high normal 70-120 (mg/dL) Final Performing Location
--- OUTSIDE RECORDS SUMMARY | 2023-04-19 19:53 | External Medical Summary ---
Author Name Unknown Address Unknown Organization : Laboratory Report Ordering Provider Test Date Status DAYANARA MORA 12/31/2022 07:34:00 Final Observation Date Value Abnormality Reference (Units ) Status Glucose Point of Care 12/31/2022 07:34:00 132 Above high normal 70-120 (mg/dL) Final Performing Location
--- OUTSIDE RECORDS SUMMARY | 2023-04-19 19:53 | External Medical Summary ---
Author Name Unknown Address Unknown Organization : Laboratory Report Ordering Provider Test Date Status DAYANARA MORA 12/30/2022 11:59:40 Final Observation Date Value Abnormality Reference (Units ) Status Glucose Point of Care 12/30/2022 11:59:40 134 Above high normal 70-120 (mg/dL) Final Performing Location
--- OUTSIDE RECORDS SUMMARY | 2023-04-19 19:53 | External Medical Summary ---
Author Name Unknown Address Unknown Organization K1F:LABORATORY [facility] - [address] [place] [address] Laboratory Report Ordering Provider Test Date Status NORMA MCCORMICK 12/27/2022 12:35:24 Final Observation Date Value Abnormality Reference (Units ) Status Lactic Acid, Whole Blood 12/27/2022 12:35:24 1.2 0.4-2.0 (mmol/L) Final Performing Location [facility] - [address] [place] [address]
--- OUTSIDE RECORDS SUMMARY | 2023-04-19 19:53 | External Medical Summary ---
Author Name Unknown Address Unknown Organization : Laboratory Report Ordering Provider Test Date Status ALESIA METZ 12/28/2022 12:32:38 Final Observation Date Value Abnormality Reference (Units ) Status Glucose Point of Care 12/28/2022 12:32:38 89 70-120 (mg/dL) Final Performing Location
--- OUTSIDE RECORDS SUMMARY | 2023-04-19 19:53 | External Medical Summary ---
Author Name Unknown Address Unknown Organization K01:[facility] [place] [address] [place] [address] Laboratory Report Ordering Provider Test Date Status EZ SALDAÑA 12/29/2022 05:17:00 Final Observation Date Value Abnormality Reference (Units ) Status HbA1C 12/29/2022 05:17:00 11.3 Above high normal 4. 0-5.6 (%) Final The use of HbA1c to monitor glycemic status is based on normal hemoglobin and HbA composition. This test should not be used in patients with abnormal hemoglobin that affects the half life of the red blood cell or the in vivo glycation rates. Glucose, estimated average 12/29/2022 05:17:00 278 Above high normal <126 (mg/dL) Gustavo cowart Performing Location [facility] [place] [address] [place] [address]
--- OUTSIDE RECORDS SUMMARY | 2023-04-19 19:53 | External Medical Summary ---
Author Name Unknown Address Unknown Organization : Laboratory Report Ordering Provider Test Date Status DAYANARA MORA 12/29/2022 16:07:23 Final Observation Date Value Abnormality Reference (Units ) Status Glucose Point of Care 12/29/2022 16:07:23 80 70-120 (mg/dL) Final Performing Location
--- OUTSIDE RECORDS SUMMARY | 2023-04-19 19:53 | External Medical Summary ---
Author Name Unknown Address Unknown Organization : Laboratory Report Ordering Provider Test Date Status ALESIA METZ 12/29/2022 11:56:35 Final Observation Date Value Abnormality Reference (Units ) Status Glucose Point of Care 12/29/2022 11:56:35 139 Above high normal 70-120 (mg/dL) Final Performing Location
--- OUTSIDE RECORDS SUMMARY | 2023-04-19 19:53 | External Medical Summary ---
Author Name Unknown Address Unknown Organization K1F:[facility] - [address] [place] [address] Laboratory Report Ordering Provider Test Date Status NORMA MCCORMICK 12/27/2022 14:32:48 Final Observation Date Value Abnormality Reference (Units ) Status Color of Urine by Auto 12/27/2022 14:32:48 Yellow Light Yellow, Yellow, Dark Yellow Final Clarity, Urine 12/27/2022 14:32:48 Clear Clear Final Glucose [Mass/volume] in Urine by Automated test strip 12/27/2022 14:32:48 500 Abnormal Negative (mg/dL) Final Bilirubin.total [Presence] in Urine by Automated test strip 12/27/2022 14:32:48 Negative Negative Final Ketones [Mass/volume] in Urine by Automated test strip 12/27/2022 14:32:48 Negative Negative (mg/dL) Final Specific gravity, Urine 12/27/2022 14:32:48 1.030 1.003-1.030 Final Hemoglobin [Presence] in Urine by Automated test strip 12/27/2022 14:32:48 Negative Negative Final pH, Urine 12/27/2022 14:32:48 5.5 5.0-7.5 (Units) Final Protein [Mass/volume] in Urine by Automated test strip 12/27/2022 14:32:48 Negative Negative (mg/dL) Final Urobilinogen [Mass/volume] in Urine by Automated test strip 12/27/2022 14:32:48 0.2 0.2, 1.0 (mg/dL) Final Nitrite [Presence] in Urine by Automated test strip 12/27/2022 14:32:48 Negative Negative Final Leukocyte esterase [Presence] in Urine by Automated test strip 12/27/2022 14:32:48 Negative Negative Final Annotation Comment 12/27/2022 14:32:48 Final Screen negative - Microscopi c not performed. Performing Location [facility] - [address] [place] [address]
--- OUTSIDE RECORDS SUMMARY | 2023-04-19 19:53 | External Medical Summary ---
Author Name Unknown Address Unknown Organization K1F:[facility] - [address] [place] [address] Laboratory Report Ordering Provider Test Date Status NAM LEIVA 12/28/2022 04:42:00 Final Observation Date Value Abnormality Reference (Units ) Status BUN 12/28/2022 04:42:00 22 Above high normal 6-20 (mg/dL) Final Creatinine 12/28/2022 04:42:00 1.0 0.6-1.2 (mg/dL) Final Glomerular filtration rate/1.73 sq M.predicted [Volume Rate/Area] in Serum, Plasma or Blood by Creatinine-based formula (CKD-EPI) 12/28/2022 04:42:00 >90 >=60 (mL/min) Final eGFR is calculated based on the CKD-EPI 2020 equation SODIUM 12/28/2022 04:42:00 140 135-146 (m mol/L) Final Potassium 12/28/2022 04:42:00 3.5 3.5-5.1 (m mol/L) Final Cl 12/28/2022 04:42:00 101 98-107 (mm ol/L) Final CO2 12/28/2022 04:42:00 33 Above high normal 22 -32 (mmol/L) Final Anion gap 12/28/2022 04:42:00 6 Below low normal 7-1 5 (mmol/L) Final Glucose 12/28/2022 04:42:00 216 Above high normal 70 -120 (mg/dL) Final Calcium 12/28/2022 04:42:00 9.0 8.4-10.2 ( mg/dL) Final Performing Location [facility] - [address] [place] [address]
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
--- OUTSIDE RECORDS SUMMARY | 2023-04-19 19:54 | External Medical Summary | Summary of Care ---
Author Name Unknown Organization [facility] Address [address] [place] [address] Phone [phone] Care Team Providers Care Field Installer Name Role Phone Av Graves MD Primary Care Provider [phone] [phone] Reason for Visit * Reason Onset Date Comments Appointment 12/13/2022 Encounter Details Date Type Department Care Team Description 12/13/2022 Telephone Orthopaedics [facility] [address] [place] [address] Services, Scheduling [address] [place] [address] Appointment Allergies No known active allergiesdocumented as of this encounter (statuses as of 12/18/2022) Medications Medication Sig Dispensed Refills Start Date End Date Status Methadone HCl 10 MG/ML Oral Concentrate Take 10.7 mL by mouth in the morning. 0 11/01/2021 Active OneTouch Verio w/Device KitIndications:Type 1 diabetes mellitus with hemoglobin A1c goal of less than 8.0% ([facility]) Use up to 4 times a [...] order for osteomyelitis R 5th finger. Nery oCllier PA-C said pt needs to be seen gen to have the finger amputated. Please advise how soon pt can be seen at either [facility] or[place]? If pt can't be seen urgently at one of these locations, referring provider will try arranging transportation for [place]. Schedulers: please call Nery Collier PA-C at [phone] or [place]ah[place] Text her about the appt. documented in this encounter Plan of Treatment Upcoming Encounters Date Type Specialty Care Team Description 12/25/2022 Office Visit Family Av García MD [address] [address] 12/27/2022 Office Visit Family Av García MD [address] [address] Health Maintenance Due Date Last Done Comments DISCUSS TOBACCO CESSATION (REFER TO SMARTSET #7776) 1985 Hepatitis B (1 of 3 - [...] the patient have Health Care Power of Change Analyst? No Full Code 12/25/2021 1:35 PM 01/06/2022 6:52 PM This order reflects the patients wishes and were consensually agreed upon. Question Answer Comments Discussion of Advance Directives occurred with: Family Does the patient have a Living Will? No Does the patient have Health Care Power of Change Analyst? No Full Code 07/16/2015 10:39 AM 07/17/2015 [...] the patient have Health Care Power of Change Analyst? No Care Teams Field Installer Relationship Specialty Start Date End Date Av Graves MD [facility] [place]er [phone] PCP - General Family Medicine 06/27/22 documented as of this encounter
--- OUTSIDE RECORDS SUMMARY | 2023-04-19 19:54 | External Medical Summary | Summary of Care ---
Author Name Unknown Organization [facility] Address [address] [place] [address] Phone [phone] Care Team Providers Care Direct Support Professional Name Role Phone Av Graves MD Primary Care Provider [phone] [phone] Reason for Visit * Reason Onset Date Comments Appointment 12/13/2022 Encounter Details Date Type Department Care Team Description 12/13/2022 Telephone Orthopaedics [facility] [address] [place] [address] Services, Scheduling [address] [place] [address] Appointment Allergies No known active allergiesdocumented as of this encounter (statuses as of 12/19/2022) Medications Medication Sig Dispensed Refills Start Date [...] as of this encounter (statuses as of 12/19/2022) Active Problems Problem Noted Date Chronic osteomyelitis [...] as of this encounter (statuses as of 12/19/2022) Resolved Problems Problem Noted Date Resolved Date [...] as of this encounter (statuses as of 12/19/2022) Immunizations Name Administration Dates Next Due SEASONAL [...] encounter Miscellaneous Notes * Telephone Encounter - DINA Espinoza - 12/19/2022 9:24 AM EDT That message was sent last Sunday, we are one day away from it being 1 week ago. This pt still does not have an appt and needs to be seen for both of his hands. * Telephone Encounter - ULISSES Espinosa - 12/18/2022 2:15 PM EDT Please seen message from JOSEY Walker * Telephone Encounter - DINA Espinoza - 12/18/2022 1:58 PM EDT This pt [...] urgent order for osteomyelitis R 5th finger. Nrey Collier PA-C said pt needs to be seen gen to have the finger amputated. Please advise how soon pt can be seen at either [facility]? If pt can't be seen urgently at one of these locations, referring provider will try arranging transportation for [place]. Schedulers: please call Nery Collier PA-C at [phone] or Nahid Text her about the appt. documented in this encounter Plan of Treatment Upcoming Encounters Date Type Specialty Care Team Description 12/25/2022 Office Visit Family Medicine Av Graves MD [address] [address] 12/27/2022 Office Visit Family Medicine Av Graves MD [address] [address] Health Maintenance Due Date Last Done Comments DISCUSS TOBACCO CESSATION (REFER TO SMARTSET #3297) 1985 Hepatitis B (1 of 3 - [...] ((Group A Strep) Strep pyogenes) 10/27/2022 10/28/19 documented as of this encounter Advance Directives [...] the patient have Health Care Power of Wrapper Hands Sprayer? No Full Code 12/25/2021 1:35 PM 01/06/2022 6:52 PM This order reflects the patients wishes and were consensually agreed upon. Question Answer Comments Discussion of Advance Directives occurred with: Family Does the patient have a Living Will? No Does the patient have Health Care Power of Wrapper Hands Sprayer? No Full Code 07/16/2015 10:39 AM 07/17/2015 [...] the patient have Health Care Power of Wrapper Hands Sprayer? No Care Teams Direct Support Professional Relationship Specialty Start Date End Date Av Graves MD [address] [place] [phone] PCP - General Family Medicine 06/27/22 documented as of this encounter
--- OUTSIDE RECORDS SUMMARY | 2023-04-19 19:54 | External Medical Summary ---
Author Name Unknown Address Unknown Organization K[facility]F:[facility] - [address] [place] [address] Laboratory Report Ordering Provider Test Date Status NORMA MCCORMICK 12/27/2022 12:35:24 Final Observation Date Value Abnormality Reference (Units ) Status Magnesium 12/27/2022 12:35:24 2.1 1.5-2.6 (m g/dL) Final Performing Location [facility] - [address] [place] [address]
--- OUTSIDE RECORDS SUMMARY | 2023-04-19 19:54 | External Medical Summary ---
Author Name Unknown Address Unknown Organization : Laboratory Report Ordering Provider Test Date Status NORMA MCCORMICK 12/27/2022 12:21:16 Final Observation Date Value Abnormality Reference (Units) Status Glucose Point of Care 12/27/2022 12:21:16 >500 Above upper panic limits 70-120 (mg/dL) Final POCT DEVICE COMMENT 12/27/2022 12:21:16 Notified Provider Final Performing Location
--- OUTSIDE RECORDS SUMMARY | 2023-04-19 19:54 | External Medical Summary | Summary of Care ---
Author Name Unknown Organization [facility] Address [address] [place] [address] Phone [phone] Care Team Providers Care Lockstitch Shoulder Joiner Name Role Phone Av Graves MD Primary Care Provider [phone] Reason for Visit * Reason Onset Date Comments Appointment 12/13/2022 Encounter Details Date Type Department Care Team Description 12/13/2022 Telephone Orthopaedics [facility] [address] [place] [address] Services, Scheduling [address] [place] [address] Appointment Allergies No known active allergiesdocumented as of this encounter (statuses as of 12/20/2022) Medications Medication Sig Dispensed Refills Start Date End Date Status Methadone HCl 10 MG/ML Oral Concentrate Take 10.7 mL by mouth in the morning. 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 18 g 1 01/10/2022 Active documented as of this encounter (statuses as of 12/20/2022) Active Problems Problem Noted Date Chronic osteomyelitis [...] as of this encounter (statuses as of 12/20/2022) Resolved Problems Problem Noted Date Resolved Date [...] as of this encounter (statuses as of 12/20/2022) Immunizations Name Administration Dates Next Due SEASONAL [...] * Telephone Encounter - ULISSES Espinosa - 12/20/2022 8:59 AM EDT Called and left several messages for patient to return our call so we can get him scheduled to be seen in ortho Will send letter JOSEY Espinosa * Telephone Encounter - Erinn Chou ATC - 12/19/2022 2:32 PM EDT Messages have been left for patient in regards to scheduling appt. Erinn Chou ATC * Telephone Encounter - DINA Espinoza - [...] soon pt can be seen at either [facility]? If pt can't be seen urgently at one of these locations, referring provider will try arranging transportation for [place]. Schedulers: please call Nery Collier PA-C at [phone] or [place] Text her about the appt. documented in this encounter Plan of Treatment Upcoming Encounters Date Type Specialty Care Team Description 12/25/2022 Office Visit Family Medicine Av Graves MD [address] [address] 12/27/2022 Office Visit Family Medicine Av Graves MD [address] [address] Health Maintenance Due Date Last Done Comments DISCUSS TOBACCO CESSATION (REFER TO SMARTSET #3960) 1985 Hepatitis B (1 of 3 - [...] the patient have Health Care Power of Event Security Officer? No Full Code 12/25/2021 1:35 PM 01/06/2022 6:52 PM This order reflects the patients wishes and were consensually agreed upon. Question Answer Comments Discussion of Advance Directives occurred with: Family Does the patient have a Living Will? No Does the patient have Health Care Power of Event Security Officer? No Full Code 07/16/2015 10:39 AM 07/17/2015 [...] the patient have Health Care Power of Event Security Officer? No Care Teams Lockstitch Shoulder Joiner Relationship Specialty Start Date End Date Av [facility] [place] [id number] PCP - General Family Medicine 06/27/22 documented as of this encounter
--- OUTSIDE RECORDS SUMMARY | 2023-04-19 19:54 | External Medical Summary ---
Author Name Unknown Address Unknown Organization K1F:[facility] - [address] [place] [address] [place] [id number] Laboratory Report Ordering Provider Test Date Status NORMA MCCORMICK 12/27/2022 12:35:24 Final Observation Date Value Abnormality Reference (Units ) Status Bacteria identified in Specimen by Culture 12/27/2022 12:35:24 No growth Final Test: Culture, Blood (site 2 )
Specimen Source: Blood, Venous
Specimen Type: Blood
Specimen Date: 12/27/2022 12:35 PM
Result Date: 01/01/2023 1:01 PM
Result Status: Final result
Resulting Lab: [facility]
[address] [place] [address]
[facility] [address]

CULTURE

No growth

null Performing Location [facility] - [address] [place] [address]
--- OUTSIDE RECORDS SUMMARY | 2023-04-19 19:54 | External Medical Summary ---
Author Name Unknown Address Unknown Organization K1F:[facility] - [address] [place] [address] Laboratory Report Ordering Provider Test Date Status BRANDEN MCCORMICKDidiRUBEN 12/27/2022 12:35:24 Final Observation Date Value Abnormality Reference (Units ) Status WBC, Total 12/27/2022 12:35:24 7.93 4.00-10.80 (K/uL) Final RBC 12/27/2022 12:35:24 4.06 4.50-5.25 (M/uL) Final Hemoglobin 12/27/2022 12:35:24 12.8 Below low normal 14.0-16.8 (g/dL) Final HCT 12/27/2022 12:35:24 37.7 Below low normal 40.0-48.4 (%) Final MCV 12/27/2022 12:35:24 92.9 82.0-99.5 (fL) Final MCH 12/27/2022 12:35:24 31.5 27.0-34.0 (pg) Final MCHC 12/27/2022 12:35:24 34.0 32.0-36.0 (g/dL) Final RDW 12/27/2022 12:35:24 13.3 11.5-15.5 (%) Final Platelets 12/27/2022 12:35:24 414 Above high normal 140-400 (K/uL) Final MPV 12/27/2022 12:35:24 9.6 6.6-11.1 (fL) Final Nucleated erythrocytes/100 leukocytes [Ratio] in Blood by Automated count 12/27/2022 12:35:24 0 <=0 (/100 WBCs) Final Performing Location [facility] - [address] [place] [address]
--- OUTSIDE RECORDS SUMMARY | 2023-04-19 19:54 | External Medical Summary ---
Author Name Unknown Address Unknown Organization K1F:[facility] - [address] [place] [address] Laboratory Report Ordering Provider Test Date Status NORMA MCCORMICK 12/27/2022 12:35:24 Final Less than 0.5 ng/mL: Low ris k for progression to sepsis. Review patients condition for localized infections.

0.5 to 2.0 ng/mL: Intermediate risk for progresion to sepsis. Review underlying conditions. Recommend repeat PCT after 6 hours has elapsed.

Greater than 2.0 ng/mL: high risk for progression to sepsis unless other causes are known. Observation Date Value Abnormality Reference (Units ) Status Procalcitonin [Mass/volume] in Serum or Plasma by Immunoassay 12/27/2022 12:35:24 0.04 <0.10 (ng/mL) Final Performing Location [facility] - [address] [place] [address]
--- OUTSIDE RECORDS SUMMARY | 2023-04-19 19:54 | External Medical Summary ---
Author Name Unknown Address Unknown Organization K1F:[facility] - [address] [place] [address] Laboratory Report Ordering Provider Test Date Status NORMA MCCORMICK 12/27/2022 12:35:24 Final Observation Date Value Abnormality Reference (Units ) Status CRP, low-sensitivity 12/27/2022 12:35:24 <3 <=5 (mg/L) Final Performing Location [facility] - [address] [place] [address]
--- OUTSIDE RECORDS SUMMARY | 2023-04-19 19:54 | External Medical Summary ---
Author Name Unknown Address Unknown Organization K1F:[facility] - [address] [place] [address] Laboratory Report Ordering Provider Test Date Status NORMA MCCORMICK 12/27/2022 12:35:24 Final Warfarin Therapy
INR: 2 .0-3.0 conventional anticoagulation
INR: 2.5- 3.5 high intensity anticoagulation Observation Date Value Abnormality Reference (Units ) Status PT 12/27/2022 12:35:24 13.2 11.6-15.2 (seconds) Final INR 12/27/2022 12:35:24 1.0 0.8-1.2 Final Performing Location [facility] - [address] [place] [address]
--- OUTSIDE RECORDS SUMMARY | 2023-04-19 19:54 | External Medical Summary ---
Author Name Unknown Address Unknown Organization K1F:[facility] - [address] [place] [address] Laboratory Report Ordering Provider Test Date Status JACENORMA 12/27/2022 12:35:24 Final Observation Date Value Abnormality Reference (Units ) Status BUN 12/27/2022 12:35:24 27 Above high normal 6-20 (mg/dL) Final Creatinine 12/27/2022 12:35:24 0.9 0.6-1.2 (mg/dL) Final Glomerular filtration rate/1.73 sq M.predicted [Volume Rate/Area] in Serum, Plasma or Blood by Creatinine-based formula (CKD-EPI) 12/27/2022 12:35:24 >90 >=60 (mL/min) Final eGFR is calculated based on the CKD-EPI 2020 equation SODIUM 12/27/2022 12:35:24 132 Below low normal 135 -146 (mmol/L) Final Potassium 12/27/2022 12:35:24 Final Specimen too hemolyzed. Reor ijeoma if needed. Cl 12/27/2022 12:35:24 91 Below low normal 98- 107 (mmol/L) Final CO2 12/27/2022 12:35:24 28 22-32 (mmo l/L) Final Anion gap 12/27/2022 12:35:24 13 7-15 (mmol /L) Final Glucose 12/27/2022 12:35:24 592 Above up per panic limits 70-120 (mg/dL) Final Albumin 12/27/2022 12:35:24 4.5 3.8-5.0 (g /dL) Final AST (Aspartate aminotransferase) 12/27/2022 12:35:24 Fin al Specimen too hemolyzed. Reor ijeoma if needed. Alk Phos 12/27/2022 12:35:24 127 35-130 (U/ L) Final Result may be falsely elevat ed due to hemolysis. Bilirubin, Total 12/27/2022 12:35:24 0.3 <=1 .2 (mg/dL) Final Calcium 12/27/2022 12:35:24 10.2 8.4-10.2 ( mg/dL) Final Protein 12/27/2022 12:35:24 8.9 Above hi gh normal 6.0-8.3 (g/dL) Final ALT (Alanine aminotransferase) 12/27/2022 12:35:24 212 Above high normal 10-50 (U/L) Final Result may be falsely elevat ed due to hemolysis. Performing Location [facility]ORY [facility] - [address] [place], [place] [address] [address]. [place] [address]
--- OUTSIDE RECORDS SUMMARY | 2023-04-19 19:54 | External Medical Summary ---
Author Name Unknown Address Unknown Organization K1F:[facility] - [address] [facility] [place] [address] Laboratory Report Ordering Provider Test Date Status BRANDEN MCCORMICKBRIGIDRaz 12/27/2022 12:35:24 Final Observation Date Value Abnormality Reference (Units ) Status Body temperature 12/27/2022 12:35:24 37.0 (C) Final pH of Venous blood 12/27/2022 12:35:24 7.353 7.320-7.430 (units) Final Carbon dioxide [Partial pressure] in Venous blood 12/27/2022 12:35:24 59.9 40.0-60.0 (mmHg) Final Oxygen [Partial pressure] in Venous blood 12/27/2022 12:35:24 29.3 25.0-50.0 (mmHg) Final Base excess, Capillary 12/27/2022 12:35:24 5.6 Above high normal -2.0-2.0 (mmol/L) Final Hemoglobin [Mass/volume] in Blood by Oximetry 12/27/2022 12:35:24 12.9 Below low normal 14.0-16.8 (g/dL) Final Oxyhemoglobin, Venous (FO2HB) 12/27/2022 12:35:24 46.3 40.0-85.0 (% total Hgb) Final Carboxyhemoglobin 12/27/2022 12:35:24 4.7 Above high normal <=1.5 (% total Hgb) Final Smokers: 0-9.0 % Methemoglobin 12/27/2022 12:35:24 1.5 <= 1.5 (% total Hgb) Final Deoxyhemoglobin/Hemoglo bin.total in Venous blood 12/27/2022 12:35:24 47.5 (% total Hgb) Final Oxygen content in Venous blood 12/27/2022 12:35:24 8.4 7.0-18.0 (%vol) Final Bicarbonate, Venous, POC (i-STAT) 12/27/2022 12:35:24 32.4 Above high normal 23.0-31.0 (mmol/L) Final Performing Location [facility] - [address] [place] [address]
--- OUTSIDE RECORDS SUMMARY | 2023-04-19 19:54 | External Medical Summary ---
Author Name Unknown Address Unknown Organization K1F:[facility] - [address] [place] [address] Laboratory Report Ordering Provider Test Date Status NORMA MCCORMICK 12/27/2022 12:35:24 Final Observation Date Value Abnormality Reference (Units ) Status Phosphate 12/27/2022 12:35:24 4.1 2.5-4.8 (m g/dL) Final Result may be falsely elevat ed due to hemolysis. Performing Location [facility] - [address] [place] [address]
--- OUTSIDE RECORDS SUMMARY | 2023-04-19 19:54 | External Medical Summary | Summary of Care ---
Author Name Unknown Organization [facility] Address [address] [place] [address] Phone [phone] Care Team Providers Care Shade Classifier Name Role Phone Av Graves MD Primary Care Provider [phone] [phone] Reason for Visit * Reason Onset Date Comments Appointment 12/13/2022 Encounter Details Date Type Department Care Team Description 12/13/2022 Telephone Orthopaedics [facility] [address] [place] [address] Services, Scheduling [address] [place] [address] Appointment Allergies No known active allergiesdocumented as of this encounter (statuses as of 12/19/2022) Medications Medication Sig Dispensed Refills Start Date End Date Status Methadone HCl 10 MG/ML Oral Concentrate Take 10.7 mL by mouth in the morning. 0 11/01/2021 Active OneTouch Verio w/Device KitIndications:Type 1 diabetes mellitus with hemoglobin A1c goal of less than 8.0% ([facility]) Use up to 4 times a day [...] encounter Miscellaneous Notes * Telephone Encounter - Erinn Chou ATC [...] soon pt can be seen at either [facility]? If pt can't be seen urgently at one of these locations, referring provider will try arranging transportation for [place]. Schedulers: please call Nery Collier PA-C at [phone] or [place] Text her about the appt. documented in this encounter Plan of Treatment Upcoming Encounters Date Type Specialty Care Team Description 12/25/2022 Office Visit Family Medicine Av Graves MD [address] [address] 12/27/2022 Office Visit Family Medicine Av Graves MD [address] [address] Health Maintenance Due Date Last Done Comments DISCUSS TOBACCO CESSATION (REFER TO SMARTSET #3298) 1985 Hepatitis B (1 of 3 - [...] the patient have Health Care Power of Microbiology Technician? No Full Code 12/25/2021 1:35 PM 01/06/2022 6:52 PM This order reflects the patients wishes and were consensually agreed upon. Question Answer Comments Discussion of Advance Directives occurred with: Family Does the patient have a Living Will? No Does the patient have Health Care Power of Microbiology Technician? No Full Code 07/16/2015 10:39 AM 07/17/2015 [...] the patient have Health Care Power of Microbiology Technician? No Care Teams Shade Classifier Relationship Specialty Start Date End Date Av Graves MD [address] [facility] [place] [address] PCP - General Family Medicine 06/27/22 documented as of this encounter
--- OUTSIDE RECORDS SUMMARY | 2023-04-19 19:55 | External Medical Summary ---
Author Name Unknown Address Unknown Organization K1F:[facility] - [address] [place] [address] Laboratory Report Ordering Provider Test Date Status MAKEDA ROSALES 12/13/2022 05:33:00 Final Observation Date Value Abnormality Reference (Units ) Status BUN 12/13/2022 05:33:00 31 Above high normal 6-20 (mg/dL) Final Creatinine 12/13/2022 05:33:00 1.2 0.6-1.2 (mg/dL) Final Glomerular filtration rate/1.73 sq M.predicted [Volume Rate/Area] in Serum, Plasma or Blood by Creatinine-based formula (CKD-EPI) 12/13/2022 05:33:00 82 >=60 (mL/min) Final eGFR is calculated based on the CKD-EPI 2020 equation SODIUM 12/13/2022 05:33:00 141 135-146 (m mol/L) Final Potassium 12/13/2022 05:33:00 4.2 3.5-5.1 (m mol/L) Final Cl 12/13/2022 05:33:00 110 Above high normal 98 -107 (mmol/L) Final CO2 12/13/2022 05:33:00 26 22-32 (mmo l/L) Final Anion gap 12/13/2022 05:33:00 5 Below low normal 7-1 5 (mmol/L) Final Glucose 12/13/2022 05:33:00 121 Above high normal 70 -120 (mg/dL) Final Albumin 12/13/2022 05:33:00 3.1 Below low normal 3.8 -5.0 (g/dL) Final AST (Aspartate aminotransferase) 12/13/2022 05:33:00 23 10-50 (U/L) Fin al Alk Phos 12/13/2022 05:33:00 64 35-130 (U/ L) Final Bilirubin, Total 12/13/2022 05:33:00 <0.2 <=1 .2 (mg/dL) Final Calcium 12/13/2022 05:33:00 8.5 8.4-10.2 ( mg/dL) Final Protein 12/13/2022 05:33:00 6.3 6.0-8.3 (g /dL) Final ALT (Alanine aminotransferase) 12/13/2022 05:33:00 22 10-50 (U/L) Gustavo cowart Performing Location LABORATORY [address] [place] [address]
--- OUTSIDE RECORDS SUMMARY | 2023-04-19 19:55 | External Medical Summary ---
Author Name Unknown Address Unknown Organization : Laboratory Report Ordering Provider Test Date Status DIANE SHIN 12/14/2022 08:15:55 Final Observation Date Value Abnormality Reference (Units ) Status Glucose Point of Care 12/14/2022 08:15:55 138 Above high normal 70-120 (mg/dL) Final Performing Location
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
--- OUTSIDE RECORDS SUMMARY | 2023-04-19 19:55 | External Medical Summary ---
Author Name Unknown Address Unknown Organization K1F:LABORATORY [facility] - [address] [place] [address] Laboratory Report Ordering Provider Test Date Status VICTOR MANUEL LAGUNA 12/12/2022 05:04:00 Final Observation Date Value Abnormality Reference (Units ) Status WBC, Total 12/12/2022 05:04:00 5.58 4.00-10.80 (K/uL) Final RBC 12/12/2022 05:04:00 3.13 4.50-5.25 (M/uL) Final Hemoglobin 12/12/2022 05:04:00 10.0 Below low normal 14.0-16.8 (g/dL) Final HCT 12/12/2022 05:04:00 30.2 Below low normal 40.0-48.4 (%) Final MCV 12/12/2022 05:04:00 96.5 82.0-99.5 (fL) Final MCH 12/12/2022 05:04:00 31.9 27.0-34.0 (pg) Final MCHC 12/12/2022 05:04:00 33.1 32.0-36.0 (g/dL) Final RDW 12/12/2022 05:04:00 13.3 11.5-15.5 (%) Final Platelets 12/12/2022 05:04:00 311 140-400 (K/uL) Final MPV 12/12/2022 05:04:00 8.8 6.6-11.1 (fL) Final Nucleated erythrocytes/100 leukocytes [Ratio] in Blood by Automated count 12/12/2022 05:04:00 0 <=0 (/100 WBCs) Final Performing Location LAB[facility]ATORY [facility] - [address] [place] [address]
--- OUTSIDE RECORDS SUMMARY | 2023-04-19 19:55 | External Medical Summary ---
Author Name Unknown Address Unknown Organization K1F:LAB[facility]ATORY [facility] - [address] [place] [address] Laboratory Report Ordering Provider Test Date Status MAKEDA ROSALES 12/13/2022 05:33:00 Final Observation Date Value Abnormality Reference (Units ) Status Phosphate 12/13/2022 05:33:00 2.7 2.5-4.8 (m g/dL) Final Performing Location [facility] - [address] [place] [address]
--- OUTSIDE RECORDS SUMMARY | 2023-04-19 19:55 | External Medical Summary ---
Author Name Unknown Address Unknown Organization : Laboratory Report Ordering Provider Test Date Status DIANE SHIN 12/13/2022 21:31:36 Final Observation Date Value Abnormality Reference (Units ) Status Glucose Point of Care 12/13/2022 21:31:36 195 Above high normal 70-120 (mg/dL) Final Performing Location
--- OUTSIDE RECORDS SUMMARY | 2023-04-19 19:55 | External Medical Summary ---
Author Name Unknown Address Unknown Organization : Laboratory Report Ordering Provider Test Date Status DIANE SHIN 12/13/2022 16:59:27 Final Observation Date Value Abnormality Reference (Units ) Status Glucose Point of Care 12/13/2022 16:59:27 232 Above high normal 70-120 (mg/dL) Final Performing Location
--- OUTSIDE RECORDS SUMMARY | 2023-04-19 19:55 | External Medical Summary | Summary of Care ---
Author Name Unknown Organization [facility] Address [address] [place] [address] Phone [phone] Care Team Providers Care Glass Silverer Name Role Phone Av Graves MD Primary Care Provider [phone] Reason for Visit * Reason Onset Date Comments Hospital Follow-Up 12/15/2022 Appointment 12/15/2022 Sooner HFU needjorge a d. Encounter Details Date Type Department Care Team Description 12/15/2022 Telephone Ancillary 1st Floor, [address] [address] Pamela Menendez RN Hospital Follow-Up; Appointment (Sooner HF... Allergies No known active allergiesdocumented as of this encounter (statuses as of 12/18/2022) Medications Medication Sig Dispensed Refills Start Date End Date Status Methadone HCl 10 MG/ML Oral Concentrate Take 10.7 mL by mouth in the morning. 0 11/01/2021 Active OneTouch Verio w/Device KitIndications:Type 1 diabetes mellitus with hemoglobin A1c goal of less than 8.0% ([facility]) Use up to 4 times a day E11.9 1 Kit 0 12/02/2021 Active ProAir HFA 108 (90 Base) MCG/ACT Inhalation Aerosol SolutionIndications:P neumonia of both upper lobes due to infectious organism Inhale by mouth 2 Puffs every 4 hours as needed for Wheezing. 18 g 1 01/10/2022 Active BD Pen Needle Mini U/F 31G X 5 MM (Insulin Pen Needle)Indications:Ty pe 1 diabetes mellitus with hemoglobin A1c goal of less than 8.0% ([facility]) USE THREE TIMES DAILY WITH HUMALOG KWIK PEN E10.9 100 Each 0 12/13/2022 Active OneTouch Delica Plus [id number]: Type 1 diabetes mellitus with hemoglobin A1c goal of less than 8.0% ([facility]) test blood sugars FOUR TIMES DAILY E10.9 100 Each 0 12/13/2022 Active Gabapentin 300 MG Oral Capsule (Neurontin) Take 1 Capsule by mouth in the morning and 1 Capsule at noon and 1 Capsule before bedtime. 90 Capsule 0 12/13/2022 Active Insulin Aspart 100 UNIT/ML Subcutaneous Solution Pen-injector (novoLOG) Check blood sugar before each meal and at bedtime then inject insulin aspart based on the sliding scale -- Glucose 150-200: 2 units, Glucose 201-250: 4 units, Glucose 251-300: 6 units, Glucose 301-350: 8 units, Glucose 351-400: 10 units, Glucose greater than 400: 12 units 3 Each 0 12/13/2022 Active Lantus SoloStar 100 UNIT/ML Subcutaneous Solution Pen-injector Inject 12 Units under the skin at bedtime. 3 mL 0 12/13/2022 Active Levothyroxine Sodium 88 MCG Oral Tablet (Levoxyl) Take 1 Tablet by mouth daily first thing in the morning. 30 Tablet 0 12/13/2022 Active Mirtazapine 15 MG Oral Tablet (Remeron) Take 1 Tablet by mouth at bedtime. 30 Tablet 0 12/13/2022 Active QUEtiapine Fumarate 200 MG Oral Tablet (SEROquel)Indications :Bipolar 1 disorder, depressed (HCC) Take 1 Tablet by mouth at bedtime. 30 Tablet 0 12/13/2022 Active OneTouch Verio In Vitro Strip (Glucose Blood)Indications:Typ e 1 diabetes mellitus with hemoglobin A1c goal of less than 8.0% ([facility]) Use up to 4 times a day E10.9 100 Strip 0 12/13/2022 Active Sulfamethoxazole-Trim ethoprim 800-160 MG Oral Tablet (Bactrim DS) Take 1 Tablet by mouth in the morning and 1 Tablet before bedtime. 28 Tablet 0 12/13/2022 Active Amoxicillin-Pot Clavulanate 875-125 MG Oral Tablet (Augmentin) Take 1 Tablet by mouth in the morning and 1 Tablet before bedtime. 28 Tablet 0 12/13/2022 Active Midodrine HCl 10 MG Oral Tablet (Proamatine) Take 1 Tablet by mouth in the morning and 1 Tablet at noon and 1 Tablet before bedtime. 90 Tablet 0 12/14/2022 Active documented as of this encounter (statuses [...] 12/11/2022 12/13/2022 Acute respiratory failure with hypoxia 2 01/06/2022 Malnutrition of moderate degree 12/02/2021 10/28/2022 [...] encounter Miscellaneous Notes * Telephone Encounter - Pamela Menendez RN - 12/18/2022 10:01 AM EDT Transitions of Care Note Reason for Referral:Recent Admission Phone visit for follow up: inpatient hospitalization Admitted to: [facility], Date: 12/11/22 Discharged to: home, Date: 12/14/22 Diagnosis driving hospitalization: chronic osteomyelitis of right hand including fingers Telephone call made to patient's number. No answer. Message left on machine to return call. He doeshave a PCP appointment scheduled for 12/25/22. Pamela Menendez RN * Telephone Encounter - ULISSES Ford - 12/15/2022 4:15 PM EDT LMOM to return call to get a sooner HFU appt scheduled. Per protocol, pt should be seen within 7-10days, so no later than 12/24, but that is a Sunday, so any day the week of 12/18, and with any provider in the department please, if no openings with PCP in timeframe listed. * Telephone Encounter - Pamela Menendez RN - 12/15/2022 11:37 AM EDT Transitions of Care Note Reason for Referral:Recent Admission Phone visit for follow up: inpatient hospitalization Admitted to: [facility], Date: 12/11/22 Discharged to: home, Date: 12/14/22 Diagnosis driving hospitalization: chronic osteomyelitis of right hand including fingers Telephone call made to patient's number. No answer. Message left on machine to return call. Pamela Menendez RN documented in this encounter Plan of Treatment Upcoming Encounters Date Type Specialty Care Team Description 12/25/2022 Office Visit Family Medicine Av Graves MD [address] [phone] 12/27/2022 Office Visit Family Medicine Av Graves MD [address] [phone] Health Maintenance Due Date Last Done Comments DISCUSS TOBACCO CESSATION (REFER TO SMARTSET #4324) 1985 Hepatitis B (1 of 3 - [...] the patient have Health Care Power of Engineering Technician Parking? No Full Code 12/25/2021 1:35 PM 01/06/2022 6:52 PM This order reflects the patients wishes and were consensually agreed upon. Question Answer Comments Discussion of Advance Directives occurred with: Family Does the patient have a Living Will? No Does the patient have Health Care Power of Engineering Technician Parking? No Full Code 07/16/2015 10:39 AM 07/17/2015 [...] the patient have Health Care Power of Engineering Technician Parking? No Care Teams Glass Silverer Relationship Specialty Start Date End Date Av Graves MD [facility] [place] [phone] PCP - General Family Medicine 06/27/22 documented as of this encounter
--- OUTSIDE RECORDS SUMMARY | 2023-04-19 19:55 | External Medical Summary ---
Author Name Unknown Address Unknown Organization K1F:LABORATORY [facility] - [address] [place] [address] Laboratory Report Ordering Provider Test Date Status JESSICA CUNNINGHAM 12/13/2022 05:33:00 Final Observation Date Value Abnormality Reference (Units ) Status Vancomycin, level 12/13/2022 05:33:00 21.0 10 .0-40.0 (ug/mL) Final Performing Location LAB[facility]ORY [facility] - [address] [place] [address]
--- OUTSIDE RECORDS SUMMARY | 2023-04-19 19:55 | External Medical Summary ---
Author Name Unknown Address Unknown Organization K1F:LAB[facility]ATORY [facility] - [address] [place] [address] Laboratory Report Ordering Provider Test Date Status MAKEDA ROSALES 12/14/2022 04:18:00 Final Observation Date Value Abnormality Reference (Units ) Status Magnesium 12/14/2022 04:18:00 1.8 1.5-2.6 (m g/dL) Final Performing Location LAB[facility] - [address] [place] [address]
--- OUTSIDE RECORDS SUMMARY | 2023-04-19 19:55 | External Medical Summary ---
Author Name Unknown Address Unknown Organization K1F:LABORATORY [facility] - [address] [place] [address] Laboratory Report Ordering Provider Test Date Status MAKEDA ROSALES 12/13/2022 05:33:00 Final Observation Date Value Abnormality Reference (Units ) Status WBC, Total 12/13/2022 05:33:00 5.77 4.00-10.80 (K/uL) Final RBC 12/13/2022 05:33:00 3.24 4.50-5.25 (M/uL) Final Hemoglobin 12/13/2022 05:33:00 10.4 Below low normal 14.0-16.8 (g/dL) Final HCT 12/13/2022 05:33:00 31.6 Below low normal 40.0-48.4 (%) Final MCV 12/13/2022 05:33:00 97.5 82.0-99.5 (fL) Final MCH 12/13/2022 05:33:00 32.1 27.0-34.0 (pg) Final MCHC 12/13/2022 05:33:00 32.9 32.0-36.0 (g/dL) Final RDW 12/13/2022 05:33:00 13.6 11.5-15.5 (%) Final Platelets 12/13/2022 05:33:00 329 140-400 (K/uL) Final MPV 12/13/2022 05:33:00 8.7 6.6-11.1 (fL) Final Nucleated erythrocytes/100 leukocytes [Ratio] in Blood by Automated count 12/13/2022 05:33:00 0 <=0 (/100 WBCs) Final Performing Location LABORATORY [facility] - [address] [place] [address]
--- OUTSIDE RECORDS SUMMARY | 2023-04-19 19:55 | External Medical Summary ---
Author Name Unknown Address Unknown Organization K1F:LAB[facility]ATORY [facility] - [address] [place] [address] Laboratory Report Ordering Provider Test Date Status DIANE SHIN 12/13/2022 05:33:00 Final Observation Date Value Abnormality Reference (Units ) Status Lactic Acid 12/13/2022 05:33:00 0.9 0.4-2.0 (mmol/L) Final Performing Location LAB[facility] - [address] [place] [address]
--- OUTSIDE RECORDS SUMMARY | 2023-04-19 19:55 | External Medical Summary ---
Author Name Unknown Address Unknown Organization : Laboratory Report Ordering Provider Test Date Status DIANE SHIN 12/12/2022 07:30:20 Final Observation Date Value Abnormality Reference (Units ) Status Glucose Point of Care 12/12/2022 07:30:20 207 Above high normal 70-120 (mg/dL) Final Performing Location
--- OUTSIDE RECORDS SUMMARY | 2023-04-19 19:55 | External Medical Summary | Summary of Care ---
Author Name Unknown Organization [facility] Address [address] [place] [address] Phone [phone] Care Team Providers Care Freight Team Associate Name Role Phone Av Graves MD Primary Care Provider [phone] Reason for Visit * Auth/Cert Specialty Diagnoses / Procedures Referred By Leticia t Referred To Contact Referral ID Status Reason Start Date Expiration Date Visits Re quested Visits Authorized [id number] [phone] Encounter Details Date Type Department Care Team Description 12/12/2022 Hospital Encounter Cardiac Studies, [facility] [address], [place] [id number] Allergies No known active allergiesdocumented as of [...] goal of less than 8.0% ([facility]) Use up to 4 times a day E11.9 1 Kit 0 12/02/2021 Suspended Additional Information OneTouch Verio In Vitro Strip (Glucose Blood)Indications: Type [...] 100 Each 11 01/10/2022 Suspended Additional Information OneTouch Verio In Vitro StripIndications:T ype 1 diabetes mellitus with hemoglobin A1c goal of less than 8.0% (HCC) Test as directed 1 Strip in the morning AND 1 Strip at noon AND 1 Strip in the evening. 100 Strip 5 01/10/2022 Suspended Additional Information OneTouch Delica Plus [id number] ns:Type 1 diabetes mellitus with hemoglobin A1c goal of less than 8.0% ([facility]) test blood sugars FOUR TIMES DAILY 100 [...] Resolved Date Acute respiratory failure with hypoxia 2 01/06/2022 [...] (15 years old or older) Yes 12/12/19 23 Cognitive Status Response Date of Assessm ent [...] Comments DISCUSS TOBACCO CESSATION (REFER TO SMARTSET #5847) 1985 Hepatitis B (1 of 3 - [...] Procedure Name Priority Date/Time Associated Diagnosis Comments ECHO, COMPLETE (2D), TRANS-THORACIC Routine 12/12/2022 1:44 PM EDT Syncope, unspecified syncope type documented in this encounter Results * ECHO, COMPLETE (2D), TRANS-THORACIC (12/12/2022 1:44 PM EDT) LEFT VENTRICULAR EJECTION FRACTION 56 % [facility] CARDIOLOGY 12/12/2022 1:09 PM EDT Ladan Alvarado PA-C ECHOCARDIOLOGY [facility] CARDIOLOGY documented in this encounter Additional Health Concerns [...] the patient have Health Care Power of Acoustical Logging Engineer? No Full Code 12/25/2021 1:35 PM 01/06/2022 6:52 PM This order reflects the patients wishes and were consensually agreed upon. Question Answer Comments Discussion of Advance Directives occurred with: Family Does the patient have a Living Will? No Does the patient have Health Care Power of Acoustical Logging Engineer? No Full Code 07/16/2015 10:39 AM 07/17/2015 [...] the patient have Health Care Power of Acoustical Logging Engineer? No Care Teams Freight Team Associate Relationship Specialty Start Date End Date Av Graves MD [address] [id number] PCP - General Family Medicine 06/27/22 documented as of this encounter
--- OUTSIDE RECORDS SUMMARY | 2023-04-19 19:55 | External Medical Summary | Summary of Care ---
Author Name Unknown Organization [facility] Address [address] [place] [address] Phone [phone] Care Team Providers Care Meter Tester Polyphase Name Role Phone Av Graves MD Primary Care Provider [phone] Reason for Referral * Evaluate & Treat - Unlimited Visits (Within 10 days (routine)) - Pending Review Specialty Diagnoses / Procedures Referred By Leticia nash Referred To Contact Wound Care Diagnoses Open wound of finger of right hand, subsequent encounter Nery Collier PA-C [address] [facility] Services [place] [phone] Referral ID Status Reason Start Date Expiration Date Visits Requested Visits Authorized [id number] Pending Review Specialty Services Required 12/13/[phone] Question Answer Referral Priority Within 10 days (routine) Comments Assess for: Present over 30 days Discharge Order Reason for Visit * Reason Comments Multiple Complaints * Auth/Cert Specialty Diagnoses / Procedures Referred By Leticia nash Referred To Contact Referral ID Status Reason Start Date Expiration Date Visits Re quested Visits Authorized [id number] Encounter Details Date Type Department Care Team Description 12/11/2022 - 12/14/2022 Hospital Encounter 5A [facility], [facility] 5th Floor [address] [facility] [place] [address] Alberto Ryan DO [address] [place] [address] Marlon Banda MD [address] [facility] [place] [address] Alvarez Us MD [facility] [place] [place] [id number] Various: EKG,KRAVS Allergies No known active allergiesdocumented as of this encounter (statuses as of 12/15/2022) Medications Medication Sig Dispensed Refills Start Date End Date Status Methadone HCl 10 MG/ML Oral Concentrate Take 10.7 mL by mouth in the morning. 0 2 Active OneTouch Verio w/Device KitIndications:T ype 1 diabetes mellitus with hemoglobin A1c goal of less than 8.0% (HCC) Use up to 4 times a day E11.9 1 Kit 0 2 Active ProAir HFA 108 (90 Base) MCG/ACT Inhalation Aerosol SolutionIndicati ons:Pneumonia of both upper lobes due to infectious organism Inhale by mouth 2 Puffs every 4 hours as needed for Wheezing. 18 g 1 2 Active BD Pen Needle Mini U/F 31G X 5 MM (Insulin Pen Needle)Indicatio ns:Type 1 diabetes mellitus with hemoglobin A1c goal of less than 8.0% (HCC) USE THREE TIMES DAILY WITH HUMALOG KWIK PEN E10.9 100 Each 0 3 Active OneTouch Delica Plus [id number] ions:Type 1 diabetes mellitus with hemoglobin A1c goal of less than 8.0% (HCC) test blood sugars FOUR TIMES DAILY E10.9 100 Each 0 3 Active Gabapentin 300 MG Oral Capsule (Neurontin) Take 1 Capsule by mouth in the morning and 1 Capsule at noon and 1 Capsule before bedtime. 90 Capsule 0 3 Active Insulin Aspart 100 UNIT/ML Subcutaneous Solution Pen-injector (novoLOG) Check blood sugar before each meal and at bedtime then inject insulin aspart based on the sliding scale -- Glucose 150-200: 2 units, Glucose 201-250: 4 units, Glucose 251-300: 6 units, Glucose 301-350: 8 units, Glucose 351-400: 10 units, Glucose greater than 400: 12 units 3 Each 0 3 Active Lantus SoloStar 100 UNIT/ML Subcutaneous Solution Pen-injector Inject 12 Units under the skin at bedtime. 3 mL 0 3 Active Levothyroxine Sodium 88 MCG Oral Tablet (Levoxyl) Take 1 Tablet by mouth daily first thing in the morning. 30 Tablet 0 3 Active Mirtazapine 15 MG Oral Tablet (Remeron) Take 1 Tablet by mouth at bedtime. 30 Tablet 0 3 Active QUEtiapine Fumarate 200 MG Oral Tablet (SEROquel)Indica tions:Bipolar 1 disorder, depressed (HCC) Take 1 Tablet by mouth at bedtime. 30 Tablet 0 3 Active OneTouch Verio In Vitro Strip (Glucose Blood)Indication s:Type 1 diabetes mellitus with hemoglobin A1c goal of less than 8.0% (HCC) Use up to 4 times a day E10.9 100 Strip 0 3 Active Sulfamethoxazole -Trimethoprim 800-160 MG Oral Tablet (Bactrim DS) Take 1 Tablet by mouth in the morning and 1 Tablet before bedtime. 28 Tablet 0 3 Active Amoxicillin-Pot Clavulanate 875-125 MG Oral Tablet (Augmentin) Take 1 Tablet by mouth in the morning and 1 Tablet before bedtime. 28 Tablet 0 3 Active Midodrine HCl 10 MG Oral Tablet (Proamatine) Take 1 Tablet by mouth in the morning and 1 Tablet at noon and 1 Tablet before bedtime. 90 Tablet 0 3 Active Mirtazapine 15 MG Oral Tablet (Remeron) Take 1 Tablet by mouth at bedtime. 0 2 12/14/19 23 Discontinued(Ref ill) OneTouch Verio In Vitro Strip (Glucose Blood)Indication s:Type 1 diabetes mellitus with hemoglobin A1c goal of less than 8.0% (HCC) Use up to 4 times a day E11.9 100 Strip 11 2 12/14/19 23 Discontinued(Ref ill) Insulin Aspart 100 UNIT/ML Subcutaneous Solution Pen-injector (novoLOG) Check blood sugar before each meal and at bedtime then inject insulin aspart based on the sliding scale -- Glucose 150-200: 2 units, Glucose 201-250: 4 units, Glucose 251-300: 6 units, Glucose 301-350: 8 units, Glucose 351-400: 10 units, Glucose greater than 400: 12 units 0 2 12/14/19 23 Discontinued(Ref ill) Lantus SoloStar 100 UNIT/ML Subcutaneous Solution Pen-injector Inject 12 Units under the skin at bedtime. 0 2 12/14/19 23 Discontinued(Ref ill) BD Pen Needle Mini U/F 31G X 5 MM (Insulin Pen Needle)Indicatio ns:Type 1 diabetes mellitus with hemoglobin A1c goal of less than 8.0% (HCC) USE THREE TIMES DAILY WITH HUMALOG KWIK PEN 100 Each 11 2 12/14/19 23 Discontinued(Ref ill) OneTouch Verio In Vitro StripIndications :Type 1 diabetes mellitus with hemoglobin A1c goal of less than 8.0% (HCC) Test as directed 1 Strip in the morning AND 1 Strip at noon AND 1 Strip in the evening. 100 Strip 5 2 12/14/19 23 Discontinued(Ref ill) OneTouch Delica Plus [id number] ions:Type 1 diabetes mellitus with hemoglobin A1c goal of less than 8.0% (HCC) test blood sugars FOUR TIMES DAILY 100 Each 5 2 12/14/19 23 Discontinued(Ref ill) Gabapentin 300 MG Oral Capsule (Neurontin) Take 1 Capsule by mouth in the morning and 1 Capsule at noon and 1 Capsule before bedtime. 0 3 12/14/19 23 Discontinued(Ref ill) QUEtiapine Fumarate 200 MG Oral Tablet (SEROquel)Indica tions:Bipolar 1 disorder, depressed (HCC) Take 1 Tablet by mouth at bedtime. 90 Tablet 3 3 12/14/19 23 Discontinued(Ref ill) Levothyroxine Sodium 88 MCG Oral Tablet (Levoxyl) Take 1 Tablet by mouth daily first thing in the morning at least 30 minutes prior to breakfast or other medications - Do not start before November 02, 2022. 30 Tablet 0 3 12/14/19 23 Discontinued(Ref ill) Silver sulfADIAZINE 1 % External Cream (Silvadene)Indic ations:Skin ulcer of finger with necrosis of bone (HCC),Osteomyeli tis of finger (HCC),Type 1 diabetes mellitus with hemoglobin A1c goal of less than 8.0% (HCC),Severe protein-calorie malnutrition (HCC),Compulsive skin picking,Opioid use disorder, severe, on maintenance therapy (HCC),Smoking Apply topically to affected area daily. Apply to wound daily with dressing 50 g 3 3 12/14/19 23 Discontinued OneTouch Verio In Vitro StripIndications :Type 1 diabetes mellitus with hemoglobin A1c goal of less than 8.0% (HCC) Test 1 Strip as directed in the morning and 1 Strip at noon and 1 Strip in the evening. E10.9. 100 Strip 0 3 12/15/19 23 Discontinued Midodrine HCl 5 MG Oral Tablet (Proamatine) Take 1 Tablet by mouth in the morning and 1 Tablet at noon and 1 Tablet before bedtime. 90 Tablet 0 3 12/15/19 23 Discontinued documented as of this encounter (statuses as of 12/15/2022) Active Problems Problem Noted Date Chronic osteomyelitis [...] as of this encounter (statuses as of 12/15/2022) Resolved Problems Problem Noted Date Resolved Date [...] as of this encounter (statuses as of 12/15/2022) Immunizations Name Administration Dates Next Due Seasonal [...] Sign Reading Time Taken Comments Blood Pressure 96/71 12/14/2022 3:06 PM EDT Pulse 83 12/14/2022 3:00 PM EDT Temperature 36.7 C (98.1 F) 12/14/2022 3:00 PM ED T Respiratory Rate 16 12/14/2022 3:00 PM EDT Oxygen Saturation 99% 12/14/2022 3:00 PM EDT Inhaled Oxygen Concentration - - Weight 48.1 kg (106 lb) 12/11/2022 8:50 PM EDT Height 167.6 cm (5' 6") 12/11/2022 8:50 PM EDT Body Mass Index 17.11 12/11/2022 8:50 PM EDT documented in this [...] Yes 12/11/2022 documented as of this encounter Discharge Instructions * Discharge Instr - AVS* Nery Collier PA-C - 12/13/2022 3:41 PM EDT Discharge Date: 12/14/2022 The information below provides you with the instructions and the list of medications you need to betaking following discharge from the hospital. If you have any questions, please ask before leaving. If you have questions after leaving, you can reach us at the numbers below. YOUR HOSPITAL PROVIDERS: Discharging Provider: Alvarez Us MD Provider Department: Hospital Medicine To reach this Provider Sunday through Sunday (8:00 AM to 4:30 PM) for any questions or test results: Call [phone] For after-hours concerns: Call [phone] and have your provider paged, or the provider motor and controls tester for the Department of Hospital Medicine paged. Please note, the discharging provider will not be able to provide you with any medications refills.Please discuss these with your primary care provider. Worsening Symptoms: If you have new symptoms, or your symptoms get worse, please contact your Discharge Provider or Primary Care Provider (PCP). If these providers are not available, you can go to your local [facility] or Urgent Care Clinic during their business hours. In an EMERGENCY situation: Call [phone] or go to the nearest emergency room. A BRIEF SUMMARY OF YOUR HOSPITAL STAY: You came to the hospital with: complaint of lightheadedness and near syncope, chronic osteomyelitisright finger 5 Your main diagnosis at discharge was: orthostatic hypotension, chronic osteomyelitis right finger 5 Operations & Procedures performed: none Complications: none significant Inpatient test results that are pending at discharge: none Advance Directive Documented: Advance Directive Does the Patient have an Advance Directive? No YOUR FOLLOW UP APPOINTMENTS: Primary Care Provider Information: PCP: Av Graves MD [address] [facility] / [place] [phone] (office) [phone] (fax) An appointment was requested with your PCP (Av Graves MD) within 7 days. An appointment was requested with orthopedics (hand surgeon) within 2 weeks. To follow up on this appointment call [phone]. Follow up with orthopedics is very important as surgery is likely required for bone infection on right finger 5. An appointment was requested with wound care within 2 weeks. (Please take this form to this visit with your primary care physician.) You need the following studies in the future: none INSTRUCTIONS: Diet: Carbohydrate-controlled diet, high protein diet Activity: No restrictions Wound Care: Wash bilateral finger 5 with saline, allow to dry and apply clean dry dressing once daily. Ask your doctor about when it is safe to shower, bathe, or soak in clean water. Never use contaminated water or have pets near your wound. Additional Instructions: - Call your primary care physician or seek medical attention if fever, worsening lightheadedness, spreading erythema of hand occur. - Complete the course of antibiotics as prescribed You were given information to contact [facility] if you desire inpatient rehab ( ) Contact [facility] to arrange transportation to orthopedics appointment ([phone] or ) documented in this encounter Progress Notes * Nery Collier PA-C - 12/13/2022 9:20 AM EDT Images from the original note were not included. [facility] [id number]/[facility] Medicine - Progress Note SUMMARY: Gil Irby is a 37 year old male with a PMHx of DM type 1, polyneuropathy, bipolar disorder, opioid disorder, methamphetamine abuse, severe malnutrition, depression, osteomyelitis of bothleft and right hands, presented with dizziness and syncope. Patient found to have orthostatic hypotension and ANTOLIN in the ED, given boluses and started on vancomycin and zosyn. He recently over the last 2-3 weeks has been smoking methamphetamines 2-3x/day. He was recently admitted in October of 2022 for sepsis due to osteomyelitis of the right 5th digit. He was discharged to home once stable with an appointment to follow up with a hand surgeon as an OP, he was not able to follow up due to transpor tation issues. He has been on Bactrim and augmentin PO as an outpatient. INTERVAL HISTORY: dizziness is improved today. Appetite is good. Denies diarrhea, chills, chest pain, SOB. No pain in hand. States prior to admission he was living with his mother but now he is homeless and he doesn't have access to any of his pills. ROS: Review of Systems Constitutional: Negative for fever. Respiratory: Negative for shortness of breath. Cardiovascular: Negative for chest pain. Gastrointestinal: Negative for abdominal pain. Musculoskeletal: Negative for arthralgias and joint swelling. Skin: Positive for wound. Neurological: Negative for dizziness and syncope. Objective Physical Exam Most Recent Vital Signs: BP: 111 mmHg/81 mmHg (12/13/22 1550) Pulse: 80 (12/13/22 1550) Temp: 36.72 C (12/13/22 1550) Resp: 16 (12/13/22 155) SpO2: 92 % (12/13/22 155) Physical Exam Vitals and nursing note reviewed. Constitutional: Appearance: Normal appearance. He is underweight. He is ill-appearing. HENT: Head: Normocephalic and atraumatic. Mouth/Throat: Mouth: Mucous membranes are moist. Cardiovascular: Rate and Rhythm: Normal rate and regular rhythm. Pulmonary: Effort: Pulmonary effort is normal. No respiratory distress. Breath sounds: Normal breath sounds. No wheezing or rhonchi. Abdominal: General: Abdomen is flat. Bowel sounds are normal. Palpations: Abdomen is soft. Tenderness: There is no abdominal tenderness. Musculoskeletal: Right lower leg: No edema. Left lower leg: No edema. Comments: Right fifth index finger has a large open wound with necrotic soft tissue and minimal serosanginous drainage. No surrounding warmth or bright erythema. Capillary refill intact distal digit. Skin: General: Skin is warm and dry. Capillary Refill: Capillary refill takes less than 2 seconds. Neurological: General: No focal deficit present. Mental Status: He is alert and oriented to person, place, and time. Peripheral Line Left Antecubital 20 Gauge (Active) Number of days: 2 STUDIES: I reviewed the patient's medical records. Lab results within last 7 days (see chart for full results) Units 12/13/22 0533 12/12/22 0504 12/11/22 1539 Sodium mmol/L 141 138 138 Potassium mmol/L 4.2 4.0 3.9 Chloride mmol/L 110* 107 99 CO2 mmol/L 26 25 28 BUN mg/dL 31* 36* 43* Creatinine mg/dL 1.2 1.0 1.6* Lab results within last 7 days (see chart for full results) Units 12/13/22 0533 12/12/22 0504 12/11/22 1539 HGB g/dL 10.4* 10.0* 12.0* HCT % 31.6* 30.2* 35.9* WBC K/uL 5.77 5.58 8.00 PLT K/uL 329 311 425* Echo 12/12/22: . Calculated LV ejection Fraction = 56% (three dimensional volumes). The left ventricular cavity size is normal. The LV wall thickness is normal. There is no left ventricular mural thrombus. The left ventricular wall motion is normal. The left ventricular diastolic function is normal. Blood cultures 12/11/22: no growth to date Assessment and Plan IMPRESSION : Principal Problem: Chronic osteomyelitis of right hand including fingers (HCC) Active Problems: Hypothyroidism Type 1 diabetes mellitus with hemoglobin A1c goal of less than 8.0% (HCC) Bipolar 1 disorder, depressed (HCC) Severe protein-calorie malnutrition (HCC) Opioid use disorder, severe, on maintenance therapy (HCC) Osteomyelitis (HCC) Orthostatic hypotension Methamphetamine abuse (HCC) Open wound of finger of right hand Syncope Resolved Problems: ANTOLIN (acute kidney injury) ([facility]) Dehydration I have examined the patient and consistent with the dietitian's findings found malnutrition presentof Severe (12/13/22 1454) degree. This is consistent with such due to Muscle loss;Fat loss;Weight loss (12/13/22 1454). I have also reviewed and agree with the dietitian's plan of care which include Provided snacks;Oral nutritional supplement ordered/adjusted (12/13/22 1454). ASSESSMENT/PLAN: Patient presented with near syncope and dizziness. Admitted to telemetry for ANTOLIN, orthostatic hypotension and osteomyelitis of the right hand. - Continue qshift orthostatic blood pressures - NSS 100cc/hr - ANTOLIN is resolved. - Continue vancomycin and zosyn for osteomyelitis and right hand wound. - Blood cultures pending. - Orthopedics consulted, surgeon motor and controls tester recommends following up with a hand surgeon. [facility] transfer center recommended outpatient follow up. -Contacted orthopedics triage today and message has been sent to Dr. Parson regarding scheduling appointment outpatient follow up. - Wound care recommends: Cleanse daily with NSS to the Bilater pinky fingers allow time to dry apply Oil emulsion and DSD to phalanges. Change as need for drainage purposes. Do not get dressings wet. - Nutrition consult appreciated - recommend adding liquacel protein supplement daily. - Care management on board - working on CARS application and also housing as patient is homeless. - Check CBC, BMP. - Accuchecks and sliding scale coverage qACHS as indicated per protocol. - Lantus 12 units qPM - Continue all other home medications. PHARMACOLOGIC VTE PROPHYLAXIS: hEParin CODE STATUS: Full Code EXPECTED DISCHARGE DATE: 12/14/2022 Reviewed plan of care with my attending, Dr. Us. 60 minutes were spent in the care of this patient. More than half of my time was spent counseling the patient or family and coordinating care for the patient on the floor. Associated attestation - Alvarez Us MD - 12/14/2022 3:23 PM EDT I have reviewed the advanced practitioner documentation and agree. I saw and evaluated the patient on date of service referenced in note and have performed the following medically appropriate historyand/or exam on 12/14/2022. 37 yo Male with Poorly controlled Type I Diabetes with Hb1c: 12, Severe Malnutrition, Polysubstanceabuse (Current Methamphetamines) on Methadone, Bipolar/ Depression/ Compulsive skin picking, Recentadmission (10/27 - 11/02) for possible sepsis from Right 5th finger Infection/ OM, discharged on oral antibiotics as there is no Hand surgeon available at [facility] and was asked to follow up as outpatient on 11/07 presents today with Worsening right 5th finger wound, generalized weakness and syncope. Right 5th finger chronic OM: Seen by Orthopedics at [facility]. Said pt needs amputation but not emergent and No hand hand surgeon available at [facility]. Recommended to follow up with Hand surgeon as outpatient.Placed on Bactrim and Augmentin. Reached out Orthopedics Nurse Navigator for appointment. Still working on it Diabetes: Well controlled with current Insulin regimen. Lantus 12U hs and Sliding scale insulin. Orthostatic Hypotension: Multiple factors. Malnutrition and Medication related. Echocardiogram normal EF. Placed on Midodrine. Apply compression stockings. Educated pt on Orthostatic Hypotension Social Issues: Doesn't have home. Pt used to stay with his mother but now states he can not go backthere. CM has been consulted Time spent: 55 Mins. More than half with patient and remaining time for reviewing labs, medial records, coordination of care with nurses and specialities. Day elements of the counseling and coordination of care included detail of treatment plan w/ pt and caregivers, content of pt and/or family discu ssions, day tests or procedures reviewed/ordered in [facility] rec, outcomes of discussions with other healthcare provider * Ladan Alvarado PA-C - 12/12/2022 1:44 PM EDT Images from the original note were not included. [facility] [id number]/[facility] Medicine - Progress Note SUMMARY: Gil Irby is a 37 year old male with a PMHx of DM type 1, polyneuropathy, bipolar disorder, opioid disorder, methamphetamine abuse, severe malnutrition, depression, osteomyelitis of bothleft and right hands, presented with dizziness and syncope. Patient found to have orthostatic hypotension in the ED, given boluses and started on vancomycin and zosyn. He recently over the last 2-3 weeks has been smoking methamphetamines 2-3x/day. Patient has a long history of chronic osteomyelitisof the left hand. He was recently admitted in October of 2022 for sepsis due to osteomyelitis of theright 5th digit. He was discharged to home once stable with an appointment to follow up with a handsurgeon as an OP, he was not able to follow up due to transportation issues. He has been on BactrimPO as an outpatient. Orthopedics consulted in the ED yesterday, recommends continuing PO antibiotics with dressing changes. + ANTOLIN INTERVAL HISTORY: Patient seen and examined at bedside earlier today. Does not report significant pain with hand wounds. Denies fevers. Patient has been lightheaded and dizzy. He was hypotensive overnight. ROS: Review of Systems Constitutional: Negative for fever. Respiratory: Negative for shortness of breath. Cardiovascular: Negative for chest pain. Gastrointestinal: Negative for abdominal pain. Musculoskeletal: Positive for arthralgias and joint swelling. Skin: Positive for wound. Neurological: Positive for dizziness and syncope. Objective Physical Exam Most Recent Vital Signs: BP: 98 mmHg/85 mmHg (12/12/22 1100) Pulse: 91 (12/12/22 1100) Temp: 37 C (12/12/22 1100) Resp: 16 (12/12/22 1100) SpO2: 100 % (12/12/22 1100) Physical Exam Vitals and nursing note reviewed. Constitutional: Appearance: Normal appearance. He is ill-appearing. HENT: Head: Normocephalic and atraumatic. Mouth/Throat: Mouth: Mucous membranes are moist. Cardiovascular: Rate and Rhythm: Normal rate and regular rhythm. Pulmonary: Effort: Pulmonary effort is normal. No respiratory distress. Breath sounds: Normal breath sounds. No wheezing or rhonchi. Abdominal: General: Abdomen is flat. Bowel sounds are normal. Palpations: Abdomen is soft. Tenderness: There is no abdominal tenderness. Musculoskeletal: Right lower leg: No edema. Left lower leg: No edema. Comments: Right fifth index finger has a large open wound, erythema, and drainage. Very limited range of motion of the affected finger. Skin: General: Skin is warm and dry. Capillary Refill: Capillary refill takes less than 2 seconds. Neurological: General: No focal deficit present. Mental Status: He is alert and oriented to person, place, and time. Peripheral Line Left Antecubital 20 Gauge (Active) Number of days: 1 STUDIES: I reviewed the patient's medical records. Labs and other studies reviewed personally by me with pertinent findings noted below: Recent Results (from the past 24 hour(s)) GLUCOSE METER, POINT OF CARE Collection Time: 12/11/22 2:50 PM Result Value Ref Range Glucose Meter 177 (H) 70 - 120 mg/dL COMPREHENSIVE METABOLIC PANEL Collection Time: 12/11/22 3:39 PM Result Value Ref Range BUN 43 (H) 6 - 20 mg/dL Creatinine 1.6 (H) 0.6 - 1.2 mg/dL Estimated Glomerular Filtration Rate 59 (L) >=60 mL/min Sodium 138 135 - 146 mmol/L Potassium 3.9 3.5 - 5.1 mmol/L Chloride 99 98 - 107 mmol/L CO2 28 22 - 32 mmol/L Anion Gap 11 7 - 15 mmol/L Glucose 114 70 - 120 mg/dL Albumin 4.5 3.8 - 5.0 g/dL AST 21 10 - 50 U/L Alkaline Phosphatase 86 35 - 130 U/L Bilirubin, Total 0.2 <=1.2 mg/dL Calcium 9.9 8.4 - 10.2 mg/dL Protein 8.6 (H) 6.0 - 8.3 g/dL ALT 27 10 - 50 U/L TROPONIN T, HIGH SENSITIVITY Collection Time: 12/11/22 3:39 PM Result Value Ref Range Troponin T, High Sensitivity 21 <=22 ng/L CBC Collection Time: 12/11/22 3:39 PM Result Value Ref Range WBC 8.00 4.00 - 10.80 K/uL RBC 3.77 4.50 - 5.25 M/uL HGB 12.0 (L) 14.0 - 16.8 g/dL HCT 35.9 (L) 40.0 - 48.4 % MCV 95.2 82.0 - 99.5 fL MCH 31.8 27.0 - 34.0 pg MCHC 33.4 32.0 - 36.0 g/dL RDW 13.3 11.5 - 15.5 % PLT 425 (H) 140 - 400 K/uL MPV 9.0 6.6 - 11.1 fL nRBCs 0 <=0 /100 WBCs DIFFERENTIAL, AUTOMATED Collection Time: 12/11/22 3:39 PM Result Value Ref Range WBC 8.00 4.00 - 10.80 K/uL Neutrophils % 45.0 40.0 - 75.0 % Lymphocytes % 49.3 (H) 18.0 - 42.0 % Monocytes % 4.4 1.0 - 11.0 % Eosinophils % 0.4 0.0 - 6.0 % Basophils % 0.8 0.0 - 2.0 % Immature Granulocytes % 0.1 0.0 - 2.0 % Absolute Neutrophils 3.61 1.80 - 7.70 K/uL Absolute Lymphocytes 3.94 1.00 - 4.80 K/ul Absolute Monocytes 0.35 0.00 - 1.10 K/uL Absolute Eosinophils 0.03 0.00 - 0.70 K/uL Absolute Basophils 0.06 0.00 - 0.20 K/uL Absolute Immature Granulocytes 0.01 0.00 - 0.20 K/uL PROCALCITONIN Collection Time: 12/11/22 3:39 PM Result Value Ref Range Procalcitonin 0.07 <0.10 ng/mL LACTATE Collection Time: 12/11/22 4:16 PM Result Value Ref Range Lactate 2.7 (H) 0.4 - 2.0 mmol/L TROPONIN T, HIGH SENSITIVITY Collection Time: 12/11/22 4:17 PM Result Value Ref Range Troponin T, High Sensitivity 21 <=22 ng/L MAGNESIUM Collection Time: 12/11/22 4:17 PM Result Value Ref Range Magnesium 2.3 1.5 - 2.6 mg/dL PHOSPHORUS Collection Time: 12/11/22 4:17 PM Result Value Ref Range Phosphorus 4.7 2.5 - 4.8 mg/dL CULTURE, BLOOD Collection Time: 12/11/22 4:23 PM Result Value Ref Range Blood Culture Growth No growth to date BLOOD GAS, VENOUS Collection Time: 12/11/22 4:27 PM Result Value Ref Range Temperature 37.0 C pH, Venous 7.247 (L) 7.320 - 7.430 units pCO2, Venous 72.6 (H) 40.0 - 60.0 mmHg pO2, Venous 20.2 (L) 25.0 - 50.0 mmHg Base Excess, Venous 1.7 -2.0 - 2.0 mmol/L Hemoglobin, Whole Blood 12.6 (L) 14.0 - 16.8 g/dL Oxyhemoglobin, Venous 25.9 (L) 40.0 - 85.0 % total Hgb Carboxyhemoglobin, Whole Blood 5.3 (H) <=1.5 % total Hgb Methemoglobin, Whole Blood 1.2 <=1.5 % total Hgb Reduced Hemoglobin, Venous 67.6 % total Hgb O2 Content, Venous 4.6 (L) 7.0 - 18.0 %vol Bicarbonate, Whole Blood 30.5 23.0 - 31.0 mmol/L CULTURE, BLOOD Collection Time: 12/11/22 4:27 PM Result Value Ref Range Blood Culture Growth No growth to date URINALYSIS, REFLEX TO MICROSCOPIC Collection Time: 12/11/22 5:42 PM Result Value Ref Range Color, Urine Yellow Light Yellow, Yellow, Dark Yellow Clarity, Urine Clear Clear Glucose, Urine >=1000 (A) Negative mg/dL Bilirubin, Urine Negative Negative Ketone, Urine Negative Negative mg/dL Specific [place], Urine 1.028 1.003 - 1.030 Blood, Urine Trace (A) Negative pH, Urine 6.0 5.0 - 7.5 Units Protein, Urine Trace (A) Negative mg/dL Urobilinogen, Urine 0.2 0.2, 1.0 mg/dL Nitrite, Urine Negative Negative Esterase, Urine Negative Negative MICROSCOPIC EXAM, URINE Collection Time: 12/11/22 5:42 PM Result Value Ref Range RBC, Urine 0-2 0 - 2 /HPF WBC, Urine 0-2 0 - 2 /HPF Bacteria, Urine 51-100 (A) 0 - 25 /HPF TOXICOLOGY, URINE SCREEN W/O CONFIRMATION Collection Time: 12/11/22 5:42 PM Result Value Ref Range Amphetamine Positive (A) Negative Benzodiazepines Negative Negative Cannabinoids Negative Negative Cocaine Metabolite Negative Negative Fentanyl Positive (A) Negative Hydrocodone / Hydromorphone Negative Negative Methadone Metabolite Positive (A) Negative Morphine / Codeine Negative Negative Oxycodone / Oxymorphone Negative Negative LACTATE Collection Time: 12/11/22 6:12 PM Result Value Ref Range Lactate 0.6 0.4 - 2.0 mmol/L GLUCOSE METER, POINT OF CARE Collection Time: 12/11/22 9:28 PM Result Value Ref Range Glucose Meter 99 70 - 120 mg/dL CBC Collection Time: 12/12/22 5:04 AM Result Value Ref Range WBC 5.58 4.00 - 10.80 K/uL RBC 3.13 4.50 - 5.25 M/uL HGB 10.0 (L) 14.0 - 16.8 g/dL HCT 30.2 (L) 40.0 - 48.4 % MCV 96.5 82.0 - 99.5 fL MCH 31.9 27.0 - 34.0 pg MCHC 33.1 32.0 - 36.0 g/dL RDW 13.3 11.5 - 15.5 % PLT 311 140 - 400 K/uL MPV 8.8 6.6 - 11.1 fL nRBCs 0 <=0 /100 WBCs BASIC METABOLIC PANEL Collection Time: 12/12/22 5:04 AM Result Value Ref Range BUN 36 (H) 6 - 20 mg/dL Creatinine 1.0 0.6 - 1.2 mg/dL Estimated Glomerular Filtration Rate >90 >=60 mL/min Sodium 138 135 - 146 mmol/L Potassium 4.0 3.5 - 5.1 mmol/L Chloride 107 98 - 107 mmol/L CO2 25 22 - 32 mmol/L Anion Gap 6 (L) 7 - 15 mmol/L Glucose 192 (H) 70 - 120 mg/dL Calcium 8.3 (L) 8.4 - 10.2 mg/dL GLUCOSE METER, POINT OF CARE Collection Time: 12/12/22 7:30 AM Result Value Ref Range Glucose Meter 207 (H) 70 - 120 mg/dL GLUCOSE METER, POINT OF CARE Collection Time: 12/12/22 11:23 AM Result Value Ref Range Glucose Meter 205 (H) 70 - 120 mg/dL Assessment and Plan IMPRESSION : Principal Problem: Osteomyelitis (HCC) Active Problems: Hypothyroidism Type 1 diabetes mellitus with hemoglobin A1c goal of less than 8.0% (HCC) Bipolar 1 disorder, depressed (HCC) Severe protein-calorie malnutrition (HCC) Opioid use disorder, severe, on maintenance therapy (HCC) ANTOLIN (acute kidney injury) (HCC) Dehydration Orthostatic hypotension Methamphetamine abuse (HCC) Chronic osteomyelitis of right hand including fingers (HCC) Open wound of finger of right hand Resolved Problems: * No resolved hospital problems. * ASSESSMENT/PLAN: Patient presented with syncope and dizziness, admitted to telemetry for ANTOLIN, orthostatic hypotension and osteomyelitis of the right hand. - Echo ordered given syncope - Continue qshift orthostatic blood pressures - NSS 100cc/hr - ANTOLIN is improving. - Continue vancomycin and zosyn for osteomyelitis and right hand wound. - Blood cultures pending. - Orthopedics consulted, surgeon motor and controls tester recommends following up with a hand surgeon. As patient does not have transportation, reaching out to [facility] to discuss disposition (transfer vs OP f/u). If outpatient follow up is recommended will have to have coronary care unit nurse help arrange transport. - Wound consult ordered - Nutrition consult pending - Care management on board, patient would like to go to a drug rehab. - Check CBC, CMP, mag and phos in AM. - Accuchecks and sliding scale coverage qACHS as indicated per protocol. - Lantus 12 units qPM - Continue all other home medications. PHARMACOLOGIC VTE PROPHYLAXIS: hEParin CODE STATUS: Full Code EXPECTED DISCHARGE DATE: 12/14/2022 Reviewed plan of care with my attending, Dr. Us. I spent a total of 52 minutes coordinating, documenting, and providing care for this patient excluding time spent in the performance of separately billed services or time spent by another provider/QHP. Ladan Alvarado PA-C Associated attestation - Alvarez Us MD - 12/12/2022 3:12 PM EDT I have reviewed the advanced practitioner documentation and agree. I saw and evaluated the patient on date of service referenced in note and have performed the following medically appropriate historyand/or exam on 12/12/2022. 37 yo Male with Poorly controlled Type I Diabetes with Hb1c: 12, Severe Malnutrition, Polysubstanceabuse (Current Methamphetamines) on Methadone, Bipolar/ Depression/ Compulsive skin picking, Recentadmission (10/27 - 11/02) for possible sepsis from Right 5th finger Infection/ OM, discharged on oral antibiotics as there is no Hand surgeon available at [facility] and was asked to follow up as outpatient on 11/07 presents today with Worsening right 5th finger wound, generalized weakness and syncope. Labs noted for ANTOLIN and Mild lactic acidosis. - Patient could go to any outpatient appointment as he doesn't have any transport and didn't take is antibiotics as prescribed - His right 5th finger looks much worse compared to 6 weeks ago. Please refer to pictures. - Seen by Orthopedics at [facility]. Said pt needs amputation but not emergent. No hand hand surgeon available at [facility]. Due to pt's non compliance, lack of transport/ other social issues and worsening wound/OM, I think this needs to be addressed Inpatient. Will discuss case with Orthopedics at [facility] - Continue Empiric antibiotics - Continue Insulin regimen - Reviewed echocardiogram - Positive for Orthostatic Hypotension. Started on Midodrine - Patient agreeable to go to Inpatient Drug/ Alcohol rehab Time spent: 55 Mins. More than half with patient and remaining time for reviewing labs, medial records, coordination of care with nurses and specialities. Day elements of the counseling and coordination of care included detail of treatment plan w/ pt and caregivers, content of pt and/or family discu ssions, day tests or procedures reviewed/ordered in med rec, outcomes of discussions with other healthcare providers documented in this encounter H&P Notes * Reji Brothers MD - 12/11/2022 8:08 PM EDT Images from the original note were not included. [facility] PRESENTING PROBLEM: dizziness, nausea HPI: This is a 37 yo man with pmh of type 1 DM, bipolar, opioid abuse on methadone, hypothyroidism,malnutrition. He was admitted here about 1 month ago and was discharged on augmentin and bactrim for right finger osteomyelitis. However, it doesn't appear that he has followed up. He admits to only using his medications on and off. He also admits to being on a 2 week long methamphetamine binge. Hewas brought to hospital with complaints of passing out when he would try to stand up and blurred vision. ED provider communicated with ortho regarding his untreated osteomyelitis and as per report, it was recommended for him to continue oral abx for now and to search for other causes of his systemic symptoms. He was found to have ANTOLIN and orthostatic hypotension, and he was recommended for admission. When I came to see patient he was very sleepy, but cooperative after being woken up. ROS: see hpi for pertinent ros; patient sleepy and lethargic, but denies dyspnea or chest pain. He has numbness of both feet and legs. He eats poorly. Denies productive cough. He also has recurrent diarrhea and nausea. Subjective Patient's past history, medications, and allergies were reviewed. Objective Physical Exam Most Recent Vital Signs: BP: 108 mmHg/81 mmHg (12/11/221999) Pulse: 77 (12/11/221999) Temp: 36.39 C (12/11/22 1448) Resp: 18 (12/11/221999) SpO2: 99 % (12/11/221999) Constitutional: (+) chronically ill appearing, cachectic young man sleeping in bed. HEENT: normal: normocephalic, atraumatic Eyes: sclera and conjunctiva normal Neck: supple CV: normal rate Chest: normal respiratory effort, lungs clear to auscultation Abdomen: soft, bowel sounds normal, no tenderness Extremities: no edema Skin: warm, very dry skin on feet, numerous scabs. Right pinky wrapped in dressing Neuro: lethargic, took multiple attempts to wake patient. Once awake, oriented x2. Very weak. Movesall extremities. Peripheral Line Left Antecubital 20 Gauge (Active) Number of days: 0 STUDIES: Labs and other studies reviewed with pertinent findings noted below: Results for orders placed or performed during the hospital encounter of 12/11/22 COMPREHENSIVE METABOLIC PANEL Result Value Ref Range BUN 43 (H) 6 - 20 mg/dL Creatinine 1.6 (H) 0.6 - 1.2 mg/dL Estimated Glomerular Filtration Rate 59 (L) >=60 mL/min Sodium 138 135 - 146 mmol/L Potassium 3.9 3.5 - 5.1 mmol/L Chloride 99 98 - 107 mmol/L CO2 28 22 - 32 mmol/L Anion Gap 11 7 - 15 mmol/L Glucose 114 70 - 120 mg/dL Albumin 4.5 3.8 - 5.0 g/dL AST 21 10 - 50 U/L Alkaline Phosphatase 86 35 - 130 U/L Bilirubin, Total 0.2 <=1.2 mg/dL Calcium 9.9 8.4 - 10.2 mg/dL Protein 8.6 (H) 6.0 - 8.3 g/dL ALT 27 10 - 50 U/L TROPONIN T, HIGH SENSITIVITY Result Value Ref Range Troponin T, High Sensitivity 21 <=22 ng/L CBC Result Value Ref Range WBC 8.00 4.00 - 10.80 K/uL RBC 3.77 4.50 - 5.25 M/uL HGB 12.0 (L) 14.0 - 16.8 g/dL HCT 35.9 (L) 40.0 - 48.4 % MCV 95.2 82.0 - 99.5 fL MCH 31.8 27.0 - 34.0 pg MCHC 33.4 32.0 - 36.0 g/dL RDW 13.3 11.5 - 15.5 % PLT 425 (H) 140 - 400 K/uL MPV 9.0 6.6 - 11.1 fL nRBCs 0 <=0 /100 WBCs DIFFERENTIAL, AUTOMATED Result Value Ref Range WBC 8.00 4.00 - 10.80 K/uL Neutrophils % 45.0 40.0 - 75.0 % Lymphocytes % 49.3 (H) 18.0 - 42.0 % Monocytes % 4.4 1.0 - 11.0 % Eosinophils % 0.4 0.0 - 6.0 % Basophils % 0.8 0.0 - 2.0 % Immature Granulocytes % 0.1 0.0 - 2.0 % Absolute Neutrophils 3.61 1.80 - 7.70 K/uL Absolute Lymphocytes 3.94 1.00 - 4.80 K/ul Absolute Monocytes 0.35 0.00 - 1.10 K/uL Absolute Eosinophils 0.03 0.00 - 0.70 K/uL Absolute Basophils 0.06 0.00 - 0.20 K/uL Absolute Immature Granulocytes 0.01 0.00 - 0.20 K/uL TROPONIN T, HIGH SENSITIVITY Result Value Ref Range Troponin T, High Sensitivity 21 <=22 ng/L PROCALCITONIN Result Value Ref Range Procalcitonin 0.07 <0.10 ng/mL BLOOD GAS, VENOUS Result Value Ref Range Temperature 37.0 C pH, Venous 7.247 (L) 7.320 - 7.430 units pCO2, Venous 72.6 (H) 40.0 - 60.0 mmHg pO2, Venous 20.2 (L) 25.0 - 50.0 mmHg Base Excess, Venous 1.7 -2.0 - 2.0 mmol/L Hemoglobin, Whole Blood 12.6 (L) 14.0 - 16.8 g/dL Oxyhemoglobin, Venous 25.9 (L) 40.0 - 85.0 % total Hgb Carboxyhemoglobin, Whole Blood 5.3 (H) <=1.5 % total Hgb Methemoglobin, Whole Blood 1.2 <=1.5 % total Hgb Reduced Hemoglobin, Venous 67.6 % total Hgb O2 Content, Venous 4.6 (L) 7.0 - 18.0 %vol Bicarbonate, Whole Blood 30.5 23.0 - 31.0 mmol/L URINALYSIS, REFLEX TO MICROSCOPIC Result Value Ref Range Color, Urine Yellow Light Yellow, Yellow, Dark Yellow Clarity, Urine Clear Clear Glucose, Urine >=1000 (A) Negative mg/dL Bilirubin, Urine Negative Negative Ketone, Urine Negative Negative mg/dL Specific [place], Urine 1.028 1.003 - 1.030 Blood, Urine Trace (A) Negative pH, Urine 6.0 5.0 - 7.5 Units Protein, Urine Trace (A) Negative mg/dL Urobilinogen, Urine 0.2 0.2, 1.0 mg/dL Nitrite, Urine Negative Negative Esterase, Urine Negative Negative LACTATE Result Value Ref Range Lactate 2.7 (H) 0.4 - 2.0 mmol/L MAGNESIUM Result Value Ref Range Magnesium 2.3 1.5 - 2.6 mg/dL PHOSPHORUS Result Value Ref Range Phosphorus 4.7 2.5 - 4.8 mg/dL LACTATE Result Value Ref Range Lactate 0.6 0.4 - 2.0 mmol/L MICROSCOPIC EXAM, URINE Result Value Ref Range RBC, Urine 0-2 0 - 2 /HPF WBC, Urine 0-2 0 - 2 /HPF Bacteria, Urine 51-100 (A) 0 - 25 /HPF GLUCOSE METER, POINT OF CARE Result Value Ref Range Glucose Meter 177 (H) 70 - 120 mg/dL XR HAND 3 OR MORE VIEWS Final Result PROCEDURE INFORMATION: Exam: XR Right Hand Exam date and time: 12/11/2022 5:08 PM Age: 37 years old Clinical indication: Other: HX right 5th digit osteomyelitis. Evaluate for changes TECHNIQUE: Imaging protocol: Radiologic exam of the right hand. Views: 3 or more views. COMPARISON: MRI HAND RIGHT W WO CONTRAST 10/31/2022 9:31 AM FINDINGS: Bones/joints: There is [id number] destruction of the proximal and middle phalanges of the little finger and the proximal interphalangeal joint consistent with septic arthritis and osteomyelitis, with markedly increased destruction when compared to the 10/31/2022 right hand MRI. DIP joint is unremarkable. Other bones and joints of the hand are normal. Soft tissues: No soft tissue swelling. IMPRESSION IMPRESSION: Fifth PIP joint septic arthritis and osteomyelitis with markedly increased bone destruction. THIS DOCUMENT HAS BEEN ELECTRONICALLY SIGNED BY WILMA CRUMP MD XR CHEST 2 VIEWS Final Result PROCEDURE INFORMATION: Exam: XR Chest Exam date and time: 12/11/2022 3:22 PM Age: 37 years old Clinical indication: Other: Chest pain, near syncopal episodes while standing. PT had trouble standing during x-rays and needed to be seated. TECHNIQUE: Imaging protocol: Radiologic exam of the chest. Views: 2 views. COMPARISON: DX XR CHEST 1 VIEW 10/27/2022 6:05 PM FINDINGS: Lungs: Linear subsegmental atelectasis in right mid lung zone. Mild scarring in left lung. No consolidation, mass or pulmonary vascular congestion. Pleural spaces: Unremarkable. No pleural effusion. No pneumothorax. Heart/Mediastinum: Unremarkable. No cardiomegaly. Bones/joints: Unremarkable. IMPRESSION IMPRESSION: No acute findings. Linear subsegmental atelectasis in right mid lung zone. Mild scarring in left lung. THIS DOCUMENT HAS BEEN ELECTRONICALLY SIGNED BY WILMA CRUMP MD Assessment and Plan IMPRESSION: Principal Problem: Dehydration Active Problems: Hypothyroidism Type 1 diabetes mellitus with hemoglobin A1c goal of less than 8.0% ([facility]) Bipolar 1 disorder, depressed (HCC) Severe protein-calorie malnutrition (HCC) Opioid use disorder, severe, on maintenance therapy ([facility]) Osteomyelitis ([facility]) ANTOLIN (acute kidney injury) ([facility]) Orthostatic hypotension Methamphetamine abuse (HCC) Resolved Problems: * No resolved hospital problems. * DIFFERENTIAL AND PLAN: Patient's main symptoms of dizziness, passing out are best explained by dehydration. Same with ANTOLIN.Post methamphetamine psychomotor depression also contributes to above clinical picture. -observe on med-surg -continue ivf for hydration and resume oral abx -ortho consult -if diarrhea found, check for c-diff -care management consult regarding his poor state of health and continued drug use; perhaps a drug rehab program might improve his future chances of recovery -insulin for dm1 -continue other home meds -nutrition consult regarding malnutrition; f/u phosphorus after he starts to eat as he is at risk for refeeding syndrome PHARMACOLOGIC VTE PROPHYLAXIS: Heparin CODE STATUS: Full Code EXPECTED DISCHARGE DATE: 1-2 days or more Total time spent face to face in this visit was 30 minutes of which more than 50% was spent discussing and counseling the patient/caregiver(s) regarding drug use, infection, diabetes control. Total time spent on this date of service including non face to face was 60 minutes in preparation, delivery, and documentation of care provided to Gil Irby, excluding time spent in performance of separately billable services. Details outlined above in impression and plan. documented in this encounter Procedure Notes * Haroon Rollins DO - 12/11/2022 2:55 PM EDTAssociated Order(s): EKG REASON FOR STUDY: SYNCOPE CONCLUSIONS: Sinus tachycardia Right atrial enlargement Rightward axis Abnormal ECG When compared with ECG of 27-OCT-2022 17:32, No significant change was found Ventricular Rate: 101 Atrial Rate: 101 MO Interval: 120 QRS Duration: 88 QT/QTc: 346/448 ms P-R-T [place]: 80 : 92 : 60 degrees documented in this encounter Consult Notes * Alejandra Alegre RDN - 12/13/2022 11:35 AM EDTAssociated Order(s): NUTRITION SERVICES (DIETITIAN) CONSULT IP CLINICAL NUTRITION CONSULT/PROGRESS NOTE [facility]-[address] [place] [address] Name: Gil Irby Location: [facility] [id number] Date: 12/13/2022 Time: 2:31 PM How patient was identified (select 2): date and Name Discussed in interdisciplinary rounds: No Gil Irby is a 37 year old male being seen for consult by provider and significant unintentional weight loss Primary Diagnosis: Patient is a 37 year old male admitted with dizziness and finger infection. Other pertinent information: Patient states that he has had weight loss over the last few years with a UBW of 130-140 pounds. Per EHR last weighed this in 2019. He was actually gaining weight in October, but has had a weight loss of 9.4-10% in the last month. He has severe muscle loss, moderate fat loss. He reports that he does not eat regularly as there is not always food available. He usually only eats 1-2 times a day. No food allergies or trouble chewing or swallowing. He does not count his carbohydrates but would be interested in learning how to do this. He did agreed to try watermelon liquacel as he does not like the milky supplements and to an HS snack. His diet was changed to carbohydrate counting to allow him enough food to gain weight. Denies N/V, constipation/diarrhea. NUTRITION ASSESSMENT: Past medical/surgical history and medications reviewed. Food/Nutrition-Related History Diet: 4 Choices (60 gm) Consistent Carbohydrate Heart Healthy, 2 gm Sodium Previously followed diet: regular Food Allergies/Intolerances: none Adult Energy Intake: No significant decrease Percentage of meal intake: 50-75% Oral Nutrition Supplement (ONS): none Pertinent medications/vitamins/minerals/supplements: NSS, novolog, lantus, levoxyl, methadone, remeron Pertinent Biochemical Data: There are no biochemical abnormalities requiring a change in the nutrition plan of care. Nutrition-Focused Physical Findings: Appearance: Ill-appearing and Thin Respiratory support: Room Air Nasal/Oral: No issues identified Digestive: No issues identified Last Bowel Movement: 12/11/22 (per pt) (12/11/22 2100) Cognition: Awake, alert Skin: fingers under dressings Nutrition Focused Physical Exam: NFPE completed on 12/13/22 Subcutaneous Fat Loss: Buccal fat: Moderate Tricep: Severe Rib: WNL Muscle Loss: Temples: Mild Clavicles: Moderate Shoulders: Severe Quadriceps: Severe Calves: Severe Anthropometrics Measurements Height: 167.6 cm (5' 6") (12/11/222049) Admission weight: 48.1 kg Weight: 48.1 kg (106 lb) (12/11/222049) BMI: 17.12 (12/11/222049) Usual Body Weight: 57 kg last month, highest weight 63.6 kg a few years ago [place] weight: 61.0 kg [place] Weight Based on BMI: 21.7 Interpretation of Weight Change:Greater than 5% weight loss in 1 month (Severe) Nutrition Prescription: Energy needs: 25-35 Kcal/kg Kcal/day: 6167-2549 Based on admission weight Protein needs: 1.2-1.3 gm/kg Protein: 58-63 Based on admission weight Fluid needs: 35 ml/kg Fluid: 1683 ml/day Based on admission weight Malnutrition: Malnutrition Present: Yes (12/13/221453) Adult Malnutrition Classification: Severe (12/13/221453) Malnutrition Characteristics: Muscle loss;Fat loss;Weight loss (12/13/221453) Malnutrition Care Plan: Patient meets ASPEN/AND criteria for severe malnutrition. Plan to meet 100% of estimated calorie and 100% of estimated protein requirements via therapeutic diet and a nutrition intervention of oral nutrition supplements. If patient unable to achieve estimated requirements over next 7 days, will need to consider enteral nutrition. NUTRITION DIAGNOSIS: Malnutrition severe related to social or environmental circumstances as evidenced by greater than 5% weight loss x 1 month, severe muscle loss, and moderate fat loss. Goals: Patient to consume greater than 75 % of daily meals and 75% of daily supplements within 5 days. NUTRITION INTERVENTION/PLAN: Orders: Change diet to carbohydrate counting Oral nutrition supplement added Liquacel (1 oz, 100 calories, 16 grams protein, 6 grams carbohydrate) daily Continue current care plan Clinical Nutrition Recommendations: Diet: Continue current nutrition plan Consider a referral to life educator NUTRITION MONITORING AND EVALUATION: Nursing documentation flowsheets for percent meal intake Tolerance of supplement per patient/nursing report Lab values warranting change with MNT Weight for trends Plan follow-up: Will follow and adjust nutrition plan of care as medical condition requires. Please contact for change(s) in patient condition requiring earlier intervention. Alejandra Alegre RDN, ELSA, DEVAN Clinical Dietitian Phone [phone] [employer] * Cinthia Ruby Saleem, PT - 12/13/2022 11:00 AM EDTAssociated Order(s): ADULT PHYSICAL THERAPY CONSULT IP GENERAL EVALUATION - Physical Therapy [facility]-[address] [id number] Name: Gil Irby Location: [facility] [id number] Date: 12/13/2022 Time: 2:13 PM Gil Irby is a/an 37 year old male. Patient Status: Inpatient Insurance: Payor: [facility] Plan: [facility] CARVEOUT Product Type: *No Product type* Payor: [employer] Plan: [employer] PL[employer] Product Type: *No Product type* Patient Seen: at bedside, nursing cleared patient for therapy Patient Identified By: Name, ID Band and Date Patient presents with HPI of the following, per MD note, "HPI: This is a 37 yo man with pmh of type1 DM, bipolar, opioid abuse on methadone, hypothyroidism, malnutrition. He was admitted here about 1 month ago and was discharged on augmentin and bactrim for right finger osteomyelitis. However, it doesn't appear that he has followed up. He admits to only using his medications on and off. He also admits to being on a 2 week long methamphetamine binge. He was brought to hospital with complaints of passing out when he would try to stand up and blurred vision. ED provider communicated with ortho regarding his untreated osteomyelitis and as per report, it was recommended for him to continue oralabx for now and to search for other causes of his systemic symptoms. He was found to have ANTOLIN and orthostatic hypotension, and he was recommended for admission. When I came to see patient he was verysleepy, but cooperative after being woken up. ROS: see hpi for pertinent ros; patient sleepy and lethargic, but denies dyspnea or chest pain. He has numbness of both feet and legs. He eats poorly. Denies productive cough. He also has recurrent diarrhea and nausea." Diagnosis: weakness (09/27/23 1100) Status of treatment: OOB evaluation completed (12/13/221099) Orders: PT evaluation and treatment (12/13/221099) Weight Bearing Status: Weight bearing as tolerated (12/13/221099) Precautions: Falls;Safety ((R) AFO) (12/13/221099) Total Treatment Time--free text: 55 min (12/13/221099) Past Medical History: Past Medical History: Diagnosis Date ADHD Anxiety Bipolar disorder (HCC) Depression Diabetes mellitus (HCC) 2012 Hypothyroid Malnutrition of moderate degree (HCC) 12/02/2021 Protein-calorie malnutrition (HCC) 02/04/2021 Past Surgical History: Past Surgical History: Procedure Laterality Date NONE Subjective: "I don't know if I'll be able to go back to my moms" Social History/Disposition Lives with: Family (with mom) (12/13/221099) Assistance available: No (12/13/221099) Dwelling type: Multi-story home (12/13/221099) Entry steps: 3 (BHR) (12/13/221099) Inside steps: 10 - 15 (15 with RHR) (12/13/221099) Bedroom location: 2nd floor (12/13/221099) Bath location: 2nd floor full bath (12/13/221099) Prior Level of Function Reported by: Patient (12/13/221099) Ambulation: Ambulatory with device (12/13/221099) Ambulatory Device: Quad cane (12/13/221099) Devices at home: Quad cane;Rolling walker;Wheelchair ((R) AFO) (12/13/221099) Observations Consciousness: Alert (12/13/221099) Orientation: Oriented times 4 (12/13/221099) Psychosocial: Patient can communicate basic needs;Patient can converse in a social setting (12/13/221099) Other Findings: No (12/13/221099) Sitting Posture: Rounded shoulders (12/13/221099) Standing Posture: Rounded shoulders (12/13/221099) Pain: No complaints of pain Range of Motion Range of Motion: WNL (12/13/221099) Strength Assessment Strength Assessment: WNL (12/13/221099) P.T. Bed Mobility Supine-Sit: Independent (12/13/221099) Sit-Supine: Independent (12/13/221099) Transfers Sit-Stand: Supervision (12/13/221099) Stand-Sit: Supervision (12/13/221099) W/C-Bed/Mat: Supervision (12/13/221099) Ambulation: Distance ambulated (feet): 150 Assistive Device: Quad cane Assist: Supervision Balance Sit (Static): Good (12/13/221099) Sit (Dynamic): Good (12/13/221099) Stand (Static): Fair (12/13/221099) Stand (Dynamic): Fair (12/13/221099) Patient and or Family Goal(s): to get well and to return home Patient Education Review of Precautions: Safety;Fall (call dahl) (12/13/221099) Safety Awareness: Patient verbalizes insight of current deficits;Patient demonstrates carryover of insight during functional tasks;Patient can communicate basic needs (12/13/221099) Preferred learning method: Combination (12/13/221099) Barriers to learning: Medical Status (12/13/221099) Method of Education: Verbalized to patient;Demonstrated to patient (12/13/221099) Topic of Education: Safety with mobility, Goals/plan of care, Use of assistive device, Fall prevention, and d/c recommendations Method of Education: Verbal discussion and explanation provided to patient regarding topics mentioned above: verbalized understanding and or agreement of this information Treatment Provided: Therapeutic Activities 25 minutes: bed mobility training transfer training toilet transfer training Donning/doffing pants due to incontinence Gait Training 15 minutes: gait training with quad cane Evaluation Moderate Complexity 15 minutes - 21047: Patient was cooperative, pleasant, motivated, and alert during treatment session. Moderate complexity evaluation performed and 1-2 personal factors or comorbidities were identified that will impact plan of care, including multiple steps at home, cognitive status, multiple orthopedic injuries, bathroom on second floor, and weakness. Patient presents with limitations in transfers, gait, elevations, balance, and endurance, which will impact plan of care. These limitations will be addressed by the goals set for this patient. Alarm Status Patient positioned in: Bed (12/13/221099) With: Call dahl in reach (12/13/221099) Treatment Status: Treatment at bedside (12/13/221099) Goals: Demonstrate Transfers with: Sit to stand: independent (pt does 100%) Bed to chair: independent (pt does 100%) Demonstrate Stairclimbing: Number of steps: 15, rail on right, and Level of Assistance: supervision(with cues) Demonstrate ambulation 150 feet independent (pt does 100%) with QC Increase Safety: with all mobility tasks to decrease fall risk Time Frame: 1-8 visits Assessment: Patient presents with minimal functional deficits at this time. Currently requires supervision for all mobility with use of QC. Patient incontinent of urine upon PT arrival, patient was able to independently don/doff boxers, pants, and socks varying from sitting and standing position. Overall decreased activity tolerance evident as patient was fatigued with activity. Denied having anyonset of symptoms with mobility. Verbalizes insight into current functional deficits and demonstrates overall good safety awareness. Patient declined use of (R) AFO for ambulation during this session. PT AM PAC is 20, Would consider home with post-acute care services which may include outpatient therapy or home health. The level of care will be determined in collaboration with the patient, family/caregiver, and care team members. Will cont to provide skilled PT services while at [facility] Deficits requiring P.T. treatment needs: Safety;Mobility;Balance;Weakness;Lower extremity strength (12/13/22 1100) Equipment Needs: Treatment Plan: Transfer training, Gait training, ROM exercises: , Strengthening exercises: , Balance activities, and Educate on safety with all mobility tasks to decrease fall risk Anticipated Frequency (on eval): (3-6x/wk) (12/13/22 1100) AM PAC Score with Stairs: 20 * Parris Camarillo [facility] - 12/13/2022 6:36 AM EDT PHARMACY PHARMACOKINETIC CONSULT [facility]-[address] [address] Name: Gil Irby Location: [facility] [id number] Date: 12/13/2022 Time: 6:36 AM Requesting service: Hospitalists Bacteria being treated: MRSA Source of infection: osteomyelitis Medication(s) being managed: Vancomycin Pharmacokinetic calculations will be performed utilizing Nimbuzz software. Lab information: Lab Results Component Value Date/Time WBC 5.77 12/13/2022 05:33 AM WBC 5.58 12/12/2022 05:04 AM WBC 8.00 12/11/2022 03:39 PM WBC 6.19 11/01/2022 05:39 AM WBC 6.06 10/31/2022 06:01 AM WBC 9.27 12/21/2019 01:49 PM WBC 9.59 07/17/2015 06:03 AM WBC 19.41 (H) 07/16/2015 10:10 AM WBC 10.42 07/16/2015 07:00 AM WBC 8.70 12/07/2014 05:55 PM Lab Results Component Value Date/Time BUN 31 (H) 12/13/2022 05:33 AM BUN 36 (H) 12/12/2022 05:04 AM BUN 43 (H) 12/11/2022 03:39 PM BUN 17 11/01/2022 05:39 AM BUN 20 10/31/2022 06:01 AM BUN 22 (H) 12/21/2019 01:49 PM BUN 10 07/17/2015 06:03 AM BUN 8 07/16/2015 10:10 AM BUN 9 07/16/2015 07:00 AM BUN 9 12/07/2014 07:41 PM Lab Results Component Value Date/Time CREAT 1.2 12/13/2022 05:33 AM CREAT 1.0 12/12/2022 05:04 AM CREAT 1.6 (H) 12/11/2022 03:39 PM CREAT 1.0 11/01/2022 05:39 AM CREAT 1.1 10/31/2022 06:01 AM CREAT 1.1 12/21/2019 01:49 PM CREAT 0.7 07/17/2015 06:03 AM CREAT 0.7 07/16/2015 10:10 AM CREAT 0.6 07/16/2015 07:00 AM CREAT 0.8 12/07/2014 07:41 PM ANTIMICROBIALS GIVEN (last 28 hours) Date/Time Action Medication Dose Rate 12/13/22 0116 New Bag Piperacillin-Tazobactam (Zosyn) 4.5 g in 100 mL NSS ivpb (FOUR hour infusion) 4.5 g 25 mL/hr 12/12/222054 New Bag vancomycin (Vancocin) 750 mg in NSS 100 mL ivpb 750 mg 110 mL/hr 12/12/22 1624 New Bag Piperacillin-Tazobactam (Zosyn) 4.5 g in 100 mL NSS ivpb (FOUR hour infusion) 4.5 g 25 mL/hr 12/12/22 0930 New Bag vancomycin (Vancocin) 750 mg in NSS 100 mL ivpb 750 mg 110 mL/hr 12/12/22 0911 New Bag Piperacillin-Tazobactam (Zosyn) 4.5 g in 100 mL NSS ivpb (FOUR hour infusion) 4.5 g 25 mL/hr Wt Readings from Last 1 Encounters: 12/11/22 48.1 kg (106 lb) Levels to date: Lab Results Component Value Date/Time VANCORANDOM 21.0 12/13/2022 05:33 AM VANCORANDOM 10.4 10/31/2022 06:01 AM VANCORANDOM 25.6 10/29/2022 07:25 AM Impression: Gil Irby is a/an 37 year old male receiving vancomycin therapy. The pharmacokinetic target for therapy is AUC24,SS (range) 400-600mg/L.hr Assessment and Plan: Recent measured serum creatinine values: 12/13/2022 05:33 1.2 mg/dL 12/12/2022 05:04 1 mg/dL 12/11/2022 15:39 1.6 mg/dL Assessment: Analysis of the most recent level(s) using Dial[employer]ica gives the following patient-specific pharmacokinetic parameters: CL: 2.14 L/hr V: 31.7 L T1/2: 10.9 hours Using these values, the current regimen of Vancomycin 750 mg IV every 12 hours is predicted to result in a steady-state trough of 20.8 mg/L and AUC24 of 698 mg/L.hr. At this time we recommend a regimen of 500 mg IV every 12 hours, which is predicted to result in a steady-state trough of 14 mg/L [id number] of 470 mg/L.hr. Recommendations: - Vancomycin 500 mg IV every 12 hours - Obtain Vancomycin level 12/15 06 - Continue to monitor serum creatinine Pharmacy will continue to follow and dose as appropriate by renal function, culture results, infectious disease input, and overall clinical status. Contact the Pharmacy at extension [phone] if there are any questions. * Cari Palmer, Director Mobile - 12/12/2022 10:49 AM EDTAssociated Order(s): CARE MANAGEMENT CONSULT IP See Ancillary Progress note * Declan Martinez PA-C - 12/12/2022 9:21 AM EDTAssociated Order(s): ORTHOPAEDICS CONSULT IP Orthopaedics CONSULT [facility]-[address] [id number] Name: Gil Irby Location: [facility] [id number]/W Date: 12/12/2022 Time: 9:21 AM REQUESTING SERVICE: Medicine REASON FOR CONSULT: Right little finger osteomyelitis HPI: 37-year-old diabetic male complaining of ulceration of the right little finger times many months. Historically, patient is unable to given exact time frame as when the little finger became an issue for him. After further inquiry discussion, the patient admits he has likely been having issues with his little finger greater than 1 year, which is different from initial reported from prior notes and documentation, but openings in the skin may be approximally 3 months. The patient had a pr previous admission in October with an orthopedic consult performed on 10/27/[address] Bolivar, whom recommended outpatient ortho hand follow up. A surgical consult with our hand specialist in [place], Dr. Parson, for consideration of little finger amputation secondary to osteomyelitis was scheduled. Patient was unable to attend this visit due to transportation issues. The patient does not report any current fevers, chills or night sweats. Patient did have cultures of the wound on the right little finger that were positive for strep and MRSA. Further review of the patient's medical history and lab findings does not reveal will be consistent with sepsis. Patient states that his little finger is not overly painful for him. Does have a dressing place in little finger. Antibiotic coverage currentlyconsist of Zosyn and vancomycin. PAST MEDICAL HISTORY: Past Medical History: Diagnosis Date ADHD Anxiety Bipolar disorder (HCC) Depression Diabetes mellitus (HCC) 2011 Hypothyroid Malnutrition of moderate degree (HCC) 12/02/2021 Protein-calorie malnutrition (HCC) 02/04/2021 PAST SURGICAL HISTORY: Past Surgical History: Procedure Laterality Date NONE FAMILY HISTORY: Family History Problem Relation Age of Onset Mental Disorder Mother Alcohol and Other Disorders Associated Mother Alcohol and Other Disorders Associated Father Other (Other [Other]) Other no FH skin disorders Mental Disorder Uncle (Unspecified) Alcohol and Other Disorders Associated Uncle (Unspecified) Mental Disorder Aunt (Unspecified) Alcohol and Other Disorders Associated Aunt (Unspecified) SOCIAL HISTORY: Social History Tobacco Use Smoking status: Every Day Packs/day: 0.50 Years: 7.00 Pack years: 3.50 Types: Cigarettes Smokeless tobacco: Never Vaping Use Vaping Use: Some days Substance Use Topics Alcohol use: No Drug use: Yes Types: Methamphetamines Comment: no use in 10 years ALLERGIES: Patient has no known allergies. ROS: Currently the patient denies headache, chest pain, shortness of breath, fevers, chills, night sweats PHYSICAL EXAMINATION: Most Recent Vital Signs: BP: 116 mmHg/84 mmHg (12/12/22720) Pulse: 83 (12/12/22720) Temp: 36.72 C (12/12/22720) Resp: 16 (12/12/22720) SpO2: 97 % (12/12/22720) General: alert and oriented x3 male, no acute distress, appears currently stated age, pleasant, resting comfortably in bed upon entering his room Skin: Right upper extremity including the little finger reveals what appears to be a full-thicknessulceration in the location of the dorsum PIP joint. There is no evidence of purulence or copious drainage. There is subtle evidence of what appears to be eschar around the borders of the ulceration. There does appear to be somewhat granulation tissue throughout the ulceration. I am not visualizing d eep anatomic structures. There is no advanced swelling or surrounding erythema that is spreading orradiating. Neurovascular: The right little finger reveals active motion. He reveals and describes the ability to sensate with light touch distal aspect of the little finger. Capillary refill present in under 2 seconds. Distal pulses +2. Musculoskeletal: Exam of the right little finger reveals active motion. Patient has greater strength with flexion at the D IP and PIP joint consistent with FDS and FDP can activity verses extensors. Patient appears to actively extend fully but has less strength with resisted and maintaining full extension at the PIP joint. There is no rotational deformity. LABS: Labs reviewed. There is no white count, 5.58. Glucose 177. Cultures performed on 10/27/2022 positive for MRSA and group a strep. Normotensive bedside BP. IMAGING: Exam: XR Right Hand Exam date and time: 12/11/2022 5:08 PM Age: 37 years old Clinical indication: Other: HX right 5th digit osteomyelitis. Evaluate for changes TECHNIQUE: Imaging protocol: Radiologic exam of the right hand. Views: 3 or more views. COMPARISON: MRI HAND RIGHT W WO CONTRAST 10/31/2022 9:31 AM FINDINGS: Bones/joints: There is [id number] destruction of the proximal and middle phalanges of the little finger and the proximal interphalangeal joint consistent with septic arthritis and osteomyelitis, with markedly increased destruction when compared to the 10/31/2022 right hand MRI. DIP joint is unremarkable. Other bones and joints of the hand are normal. Soft tissues: No soft tissue swelling. IMPRESSION IMPRESSION: Fifth PIP joint septic arthritis and osteomyelitis with markedly increased bone destruction. MRI HAND RIGHT WO CONTRAST HISTORY: Rule out osteomyelitis. Assess hand infections COMPARISON: Radiograph 10/27/2022 TECHNIQUE: Multiplanar multisequence MRI imaging right hand without contrast. FINDINGS: Soft tissue: There is an open wound dorsal at the proximal interphalangeal joint with soft tissue edema. Tendons: Tear of the 5th extensor tendon at the level of the PIP joint. Bone and joint: There is bone edema at the 5th proximal interphalangeal joint (base of the middle phalanx and head of the proximal phalanx). There is volar dislocation of the PIP joint. IMPRESSION: Right: 1. Open wound dorsally at the 5th finger. 2. Dislocation of the 5th proximal interphalangeal joint. Bone edema at the joint is a nonspecific finding which can be seen with trauma and osteomyelitis. 3. Tear of the 5th extensor tendon. IMPRESSION and PLAN: Principal Problem: Dehydration POA: Yes Active Problems: Hypothyroidism POA: Yes Type 1 diabetes mellitus with hemoglobin A1c goal of less than 8.0% ([facility]) POA: Yes Bipolar 1 disorder, depressed ([facility]) POA: Yes Severe protein-calorie malnutrition (HCC) POA: Yes Opioid use disorder, severe, on maintenance therapy (HCC) POA: Yes Osteomyelitis (HCC) POA: Yes ANTOLIN (acute kidney injury) (HCC) POA: Yes Orthostatic hypotension POA: Yes Methamphetamine abuse (HCC) POA: Yes POA = Present On Admission Impression: Right little finger osteomyelitis Plan: Today 's findings were discussed with the patient. They were educated regarding their diagnosis. Multiple treatment options discussed and agreed upon, including wound consult, dressing changes,continued antibiotics, and a follow- up with our hand service. Further discussion with the patient and he is not willing to travel. The patient and our medical service is recommending this procedure be performed during this current admission. The orthopedic attending for this current admission, Dr. Geller, does not perform this procedure and continues to standby having this evaluated treated on anoutpatient basis. If this is not acceptable per patient and or medical team we would need to consider transfer and status a possibility. Again, this would be for an issue a Dr. Geller believes can betreated without having to address a transfer. And more than happy to facilitate and assist however needed and recommended. Will be in discussion accordingly to determine when and where this procedurecan be performed and with which provider. The patient has no other questions or concerns and is agreeable to proceed accordingly. Continue to monitor and treat medically. This chart was completed in part utilizing [employer] Speech Voice Recognition Software. Grammatical errors, random word insertions, prounoun errors, and incomplete sentences are an occasional consequence of this system due to software limitations, ambient noise, and hardware issues. Any formal questions or concerns about the content, text, or information contained within the body of this dictation should be directly addressed to the provider for clarification. * Jimenez Wyatt [facility] - 12/12/2022 8:29 AM EDT PHARMACY PHARMACOKINETIC CONSULT [address] [address] Name: Gil Irby Location: [facility] [id number]/W Date: 12/12/2022 Time: 8:29 AM Requesting service: Hospitalists Bacteria being treated: Emperic Source of infection: Sepsis/osteo 5th digit, right hand Medication(s) being managed: Vancomycin Pharmacokinetic calculations will be performed utilizing Nimbuzz software. Lab information: Lab Results Component Value Date/Time WBC 5.58 12/12/2022 05:04 AM WBC 8.00 12/11/2022 03:39 PM WBC 6.19 11/01/2022 05:39 AM WBC 6.06 10/31/2022 06:01 AM WBC 7.68 10/30/2022 04:09 AM WBC 9.27 12/21/2019 01:49 PM WBC 9.59 07/17/2015 06:03 AM WBC 19.41 (H) 07/16/2015 10:10 AM WBC 10.42 07/16/2015 07:00 AM WBC 8.70 12/07/2014 05:55 PM Lab Results Component Value Date/Time BUN 36 (H) 12/12/2022 05:04 AM BUN 43 (H) 12/11/2022 03:39 PM BUN 17 11/01/2022 05:39 AM BUN 20 10/31/2022 06:01 AM BUN 18 10/30/2022 04:09 AM BUN 22 (H) 12/21/2019 01:49 PM BUN 10 07/17/2015 06:03 AM BUN 8 07/16/2015 10:10 AM BUN 9 07/16/2015 07:00 AM BUN 9 12/07/2014 07:41 PM Lab Results Component Value Date/Time CREAT 1.0 12/12/2022 05:04 AM CREAT 1.6 (H) 12/11/2022 03:39 PM CREAT 1.0 11/01/2022 05:39 AM CREAT 1.1 10/31/2022 06:01 AM CREAT 1.1 10/30/2022 04:09 AM CREAT 1.1 12/21/2019 01:49 PM CREAT 0.7 07/17/2015 06:03 AM CREAT 0.7 07/16/2015 10:10 AM CREAT 0.6 07/16/2015 07:00 AM CREAT 0.8 12/07/2014 07:41 PM ANTIMICROBIALS GIVEN (last 28 hours) Date/Time Action Medication Dose Rate 12/11/22 2144 Given sulfamethoxazole-trimethoprim DS (Bactrim DS) 800-160 MG 1 Tablet 1 Tablet 12/11/22 1745 New Bag Vancomycin (Vancocin) 1500 mg in NSS 250 mL ivpb LOCKED DOSE 1,500 mg 183.33 mL/hr 12/11/22 1659 New Bag Piperacillin-Tazobactam (Zosyn) 4.5 g in 100 mL NSS ivpb (HALF hour infusion) 4.5 g 200 mL/hr Wt Readings from Last 1 Encounters: 12/11/22 48.1 kg (106 lb) Levels to date: Lab Results Component Value Date/Time VANCORANDOM 10.4 10/31/2022 06:01 AM VANCORANDOM 25.6 10/29/2022 07:25 AM Impression: Gil Irby is a/an 37 year old male receiving vancomycin therapy. The pharmacokinetic target for therapy is AUC24,SS (range) 400-600mg/L.hr Assessment and Plan: Analysis using D[employer] gives the following patient-specific pharmacokinetic parameters: CL: 3.15 L/hr V: 32.5 L T1/2: 7.71 hours At this time we recommend a regimen of 750 mg IV every 12 hours, which is predicted to result in a steady-state trough of 12 mg/L and AUC24 of 472 mg/L.hr. Recommendations: - Vancomycin 750 mg IV every 12 hours - Obtain Vancomycin level [PLEASE ENTER WHEN TO OBTAIN NEXT LEVEL] - Continue to monitor serum creatinine Obtain next vancomycin level 12/13/22 with AM labs. Pharmacy will continue to follow and dose as appropriate by renal function, culture results, infectious disease input, and overall clinical status. Contact the Pharmacy at extension [phone] if there are any questions. * Ольга Germain LPN - 12/12/2022 7:22 AM EDTAssociated Order(s): WOUND CONSULT IP Order: WOUND CONSULT IP [CUSTOM: [id number]] Order #: [id number]: 1 Priority: Routine Class: Nursing Unit Reason for Consult: -> wounds to right and left hand Consulting Provider: -> Marlin Provider Released on: 12/12/2022 12:45 AM Priority: Routine Class: [facility] Unit Reason for Consult: -> wounds to right and left hand Consulting Provider: -> Marlin Provider Wound Care consult done for Wounds to the right and left hand HPI; Information obt from chart, and patient: This is a 37 yo man with pmh of type 1 DM, bipolar, opioid abuse on methadone, hypothyroidism, malnutrition. He was admitted here about 1 month ago and was discharged on augmentin and bactrim for right finger osteomyelitis. However, it doesn't appear that he has followed up. He admits to only usinghis medications on and off. He also admits to being on a 2 week long methamphetamine binge. He was brought to hospital with complaints of passing out when he would try to stand up and blurred vision.ED provider communicated with ortho regarding his untreated osteomyelitis and as per report, it wasrecommended for him to continue oral abx for now and to search for other causes of his systemic symptoms. He was found to have ANTOLIN and orthostatic hypotension, and he was recommended for admission. When I came to see patient he was very sleepy, but cooperative after being woken up. ROS: see hpi for pertinent ros; patient sleepy and lethargic, but denies dyspnea or chest pain. He has numbness of both feet and legs. He eats poorly. Denies productive cough. He also has recurrent diarrhea and nausea. Wound Care was consulted for R/L hand wounds. Upon initial assessment patient found to have wounds that started out has skin tear and d/t never healing properly and pt compliance with care, progressively got worse. Pt is from home with Mom although stating "I need to get out of that situation". Pt neglected to elaborate at this time. Pt did state "I don't always have access to receive my medications and then I go without for a while". Pt states "I'm insulin dependent and I don't always have insulin available". Pt then states "I've been on a binge with Meth lately" upon further questioning pt states started using bad about 2 weeks ago, stating "It's just been one thing after another here lately and I needed a way to cope". Past medical history: Past Medical History: Diagnosis Date ADHD Anxiety Bipolar disorder (HCC) Depression Diabetes mellitus (HCC) 2011 Hypothyroid Malnutrition of moderate degree (HCC) 12/02/2021 Protein-calorie malnutrition (HCC) 02/04/2021 Social History Socioeconomic History Marital status: Spouse name: Not on file Number of children: Not on file Years of education: Not on file Highest education level: Not on file Occupational History Not on file Tobacco Use Smoking status: Every Day Packs/day: 0.50 Years: 7.00 Pack years: 3.50 Types: Cigarettes Smokeless tobacco: Never Vaping Use Vaping Use: Some days Substance and Sexual Activity Alcohol use: No Drug use: Yes Types: Methamphetamines Comment: no use in 10 years Sexual activity: Yes Other Topics Concern Not [...] on file Housing Stability: Not on file Family History Problem Relation Age of Onset Mental Disorder Mother Alcohol and Other Disorders Associated Mother Alcohol and Other Disorders Associated Father Other (Other [Other]) Other no FH skin disorders Mental Disorder Uncle (Unspecified) Alcohol and Other Disorders Associated Uncle (Unspecified) Mental Disorder Aunt (Unspecified) Alcohol and Other Disorders Associated Aunt (Unspecified) Allergies:Review of patient's allergies indicates: No Known Allergies Code status:Full Code Discussion of adv directives occurred with - adult: Patient Sam: Support surface: Routine repositioning past 24 hrs: Moisture management past 24 hrs: Nutritional support: Heart Healthy Carb consistent; 2 gm sodium intact Focused Wound Assessment: VS:BP 105/74 | Pulse 75 | Temp 36.1 C (97 F) (Temporal Artery) | Resp 16 | Ht 1.676 m (5' 6") |Wt 48.1 kg (106 lb) | SpO2 96% | BMI 17.11 kg/m | BSA 1.5 m General: Pt was sitting upright in bed at this time with knees to chest Neuro:A/O/x4- pt was very tearful during wound consult stating several times "I shouldn't have let this get to this point". MS: Weakened Vascular:+2-3 pulses in the BUE Integumentary: Skin tears to the bilateral pinky fingers that have progressively gotten worse r/t non-compliance. Black/yellow/ pale pink in color with maceration in the stephane-wound region. Pt R pinkyfinger is "dangling" on hand and appears more of saw tooth edges and maceration in surrounding skinregion. Review of Labs/Tests: Latest Reference Range & Units 12/11/22 16:27 12/11/22 17:42 12/11/22 18:12 12/11/22 21:28 12/12/22 05:04 Temperature C 37.0 pH, Venous 7.320 - 7.430 units 7.247 (L) pCO2, Venous 40.0 - 60.0 mmHg 72.6 (H) pO2, Venous 25.0 - 50.0 mmHg 20.2 (L) O2 Content, Venous 7.0 - 18.0 %vol 4.6 (L) Oxyhemoglobin, Venous 40.0 - 85.0 % total Hgb 25.9 (L) Base Excess, Venous -2.0 - 2.0 mmol/L 1.7 Carboxyhemoglobin, Whole Blood <=1.5 % total Hgb 5.3 (H) Methemoglobin, Whole Blood <=1.5 % total Hgb 1.2 Reduced Hemoglobin, Venous % total Hgb 67.6 Sodium 135 - 146 mmol/L 138 Potassium 3.5 - 5.1 mmol/L 4.0 Chloride 98 - 107 mmol/L 107 CO2 22 - 32 mmol/L 25 BUN 6 - 20 mg/dL 36 (H) Creatinine 0.6 - 1.2 mg/dL 1.0 Estimated Glomerular Filtration Rate >=60 mL/min >90 Anion Gap 7 - 15 mmol/L 6 (L) Glucose 70 - 120 mg/dL 192 (H) Calcium 8.4 - 10.2 mg/dL 8.3 (L) Lactate 0.4 - 2.0 mmol/L 0.6 Bicarbonate, Whole Blood 23.0 - 31.0 mmol/L 30.5 Glucose Meter 70 - 120 mg/dL 99 CBC Rpt ! WBC 4.00 - 10.80 K/uL 5.58 HGB 14.0 - 16.8 g/dL 10.0 (L) Hemoglobin, Whole Blood 14.0 - 16.8 g/dL 12.6 (L) HCT 40.0 - 48.4 % 30.2 (L) MCV 82.0 - 99.5 fL 96.5 PLT 140 - 400 K/uL 311 CULTURE, BLOOD Rpt TOXICOLOGY, URINE SCREEN W/O CONFIRMATION Rpt ! Amphetamine Negative Positive ! Benzodiazepines Negative Negative Cannabinoids Negative Negative Cocaine Metabolite Negative Negative Fentanyl Negative Positive ! Hydrocodone / Hydromorphone Negative Negative Methadone Metabolite Negative Positive ! Morphine / Codeine Negative Negative Oxycodone / Oxymorphone Negative Negative Color, Urine Light Yellow, Yellow, Dark Yellow Yellow Clarity, Urine Clear Clear Glucose, Urine Negative mg/dL >=1000 ! Bilirubin, Urine Negative Negative Ketone, Urine Negative mg/dL Negative Specific [place], Urine 1.003 - 1.030 1.028 Blood, Urine Negative Trace ! pH, Urine 5.0 - 7.5 Units 6.0 Protein, Urine Negative mg/dL Trace ! Urobilinogen, Urine 0.2, 1.0 mg/dL 0.2 Nitrite, Urine Negative Negative Esterase, Urine Negative Negative Bacteria, Urine 0 - 25 /HPF 51-100 ! WBC, Urine 0 - 2 /HPF 0-2 RBC, Urine 0 - 2 /HPF 0-2 (L): Data is abnormally low (H): Data is abnormally high !: Data is abnormal Rpt: View report in Results Review for more information Interventions/treatments: Pt was seen and examined at bedside. Introduces self and role as wound care nurse. Cleansed skin with NSS, pt dry applied oil emulsion and a DSD over top of bilateral pinky fingers. Recommendations: Cleanse daily with NSS to the Bilater pinky fingers allow time to dry apply Oil emulsion and DSD tophalanges. Change as need for drainage purposes. Do not get dressings wet. Encourage compliance with care Thank you for consult. Coordinated care w/ Dr. Us Call or TT w/ any questions or concerns. Arianne Germain LPN Wound Care Resource Nurse documented in this encounter Nursing Notes * Kirby Dasilva LPN - 12/14/2022 4:44 PM EDT Pt left the floor via wheelchair to 4th floor surgery entrance, pt had belongings and understood discharge instructions. * Isela Ro RN - 12/14/2022 4:07 PM EDT You have a hospital discharge follow-up appointment on December 25, 2022 at 3:[address] Graves. Please arrive 15 minutes early to your scheduled appointment and be sure to bring an ID, Insurance Card, and any Co Pay you may have with you. Practice: [facility] Specialty: Family Medicine Street: [address] City: [place] State: [place] Zip: [address] Front Office [facility] in [place] will be reaching out to you to schedule an appointment. If you have not heard from them in a week after discharge, please reach out to them at [phone] to schedule an appointment. Wound Clinic at [facility] (Dr. Eric Orr) will be contacting you to schedule a follow up appointment after hospital discharge. If you do not hear from them please reach out to them at [phone] to schedule that appointment. * Hannah Cameron RN - 12/12/2022 1:02 AM EDT 0015 Pt BP 84/56. Calderon Calabrese aware. * Hannah Cameron RN - 12/12/2022 12:43 AM EDT Dual Licensed Skin Assessment completed by Rubina Yusuf and Sim May. The patient is/has a N/A Skin Breakdown (includes non blanchable erythema): Yes. Wound Type: Other, location right pinky finger, left hand Wound Ostomy Nurse Notified: Yes - notified via wound care protocol Nursing interventions: dressings changed. * Natasha Phillip RN - 12/11/2022 10:23 PM EDT CHENCHO RN [facility]-[address] [id number] Name: Gil Irby Location: [facility] [id number] Date: 12/11/2022 Time: 10:23 PM I completed the Admission Navigator. The patient was in the hospital. I was not in a hospital or clinic location. After connecting through [employer], the patient was identified by name and date of and / or wristband checked. Patient (or authorized legal membership sales representative) was then informed that this was a Virtual Nurse visit and was being conducted confidentially over secure lines. I used a headset and other methods to ensure confidentiality for the patient. My office door was closed. No oneelse was in the room with me. Patient acknowledged consent and understanding of privacy and security of the Virtual Nurse visit. I presented the opportunity for the patient or authorized legal membership sales representative to ask any questions regarding the visit today. The patient or authorized legal membership sales representative agreed to participate. Patient is alert and oriented. Patient screened as a moderate risk for suicide. CVM request submitted. Patient reported that he does not have enough food for the week, is at risk for becoming homeless, has difficulty finding transportation, has concerns for his safety, has difficulty running errands on his own, and has difficulty paying utility bills. Hannah Yusuf RN notifed via TT of concerns and that admission questions complete, also that dysphagia screening, skin assessment, and belongings will need to be documented. * Hannah Cameron RN - 12/11/2022 9:00 PM EDT 2100 Pt arrives to floor. Pt pivoted independently from stretcher to bed. VS obtained and stable. Upon arrival to floor pt has wound dressings on right pinky finger and left hand. Pt reports he has not undressed wounds in 2weeks. Was supposed to have right finger amputated but missed appt. Nursing attempted to remove bandage to right pinky but was unable to remove entire dressing due to it being adhered to wound. Pinky extremely unstable. Excess bandage cut off and then rewrapped over left overbandage. Finger black with moist red open areas. Unable to measure due to dressing. Dressing on left hand changed. documented in this encounter ED Notes * Alberto Ryan, DO - 12/11/2022 4:23 PM EDT HISTORY OF PRESENT ILLNESS Gil Irby is a 37 year old male who presents to the ED for evaluation of Multiple Complaints.The patient was seen at 12/11/22 1613. Review of Systems All other systems reviewed and are negative. This is a 37-year-old male, history of IV drug use, type 1 diabetes uncontrolled on insulin, osteomyelitis of the 5th digit of the right hand, presenting to the emergency department with worsening lightheadedness and near-syncope over the last few months. The patient states that he develops blurredvision and extreme lightheadedness whenever he stands up. He states his sugars have been uncontrolled at home and he is not been using his insulin. He was scheduled to have the 5th digit of his righthand surgically amputated, but has not undergone this procedure. He is had intermittent headaches for the last few months as well. He states his blurry vision is worse with the headaches. Denies any fevers or chills. He is not fallen or hit his head. Denies any chest pain or pressure, shortness of breath. The patient's allergies, past history, and medications were reviewed. PHYSICAL EXAM Initial Vitals (see all): BP 156/95 | Pulse 103 | Resp 20 | Temp 97.5 | O2 100 %, Room Air, None | Weight 48.08 kg | Height 167.6 cm | BMI 17.11 kg/m2 Initial Pain Assessment (see all): 0 (no pain)/10 ([facility] Adult Scale 0-10) Physical Exam Vitals and nursing note reviewed. Constitutional: General: He is not in acute distress. Appearance: He is well-developed. He is ill-appearing. He is not diaphoretic. Comments: Frail, chronically ill-appearing middle-aged male, lying in bed. HENT: Head: Normocephalic and atraumatic. Nose: Nose normal. Mouth/Throat: Mouth: Mucous membranes are dry. Pharynx: Oropharynx is clear. Eyes: Conjunctiva/sclera: Conjunctivae normal. Cardiovascular: Rate and Rhythm: Normal rate and regular rhythm. Heart sounds: No murmur heard. Pulmonary: Effort: Pulmonary effort is normal. No respiratory distress. Breath sounds: Normal breath sounds. Abdominal: Palpations: Abdomen is soft. Tenderness: There is no abdominal tenderness. Musculoskeletal: General: No swelling. Normal range of motion. Cervical back: Neck supple. Skin: General: Skin is warm and dry. Capillary Refill: Capillary refill takes less than 2 seconds. Findings: No erythema. Comments: Left hand with chronic appearing ulcer at the base of the 5th digit. Bandage on 5th digitof right hand. No significant erythema around wounds or tracking up the extremities. Healing scabs scattered over bilateral lower extremities. Neurological: Mental Status: He is alert and oriented to person, place, and time. Mental status is at baseline. Psychiatric: Mood and Affect: Mood normal. PROCEDURES AND TREATMENTS ED Orders | ED Results MEDICAL DECISION MAKING Nursing notes and vital signs were reviewed. ED consults were placed. Differential Diagnoses Based on my history, physical exam, and evaluation, the differential includes, but is not limited, to the following diagnoses: Sepsis, osteomyelitis, dehydration, orthostatic hypotension, electrolyteabnormality, DKA, hyperglycemia, MARKETING MANAGER lesion. Amount and/or Complexity of Data Reviewed Labs: ordered. Radiology: ordered. Risk Prescription drug management. Decision regarding hospitalization. This is a 37-year-old male presenting to the emergency department with lightheadedness and near-syncope when standing. Initial vital signs showed slight tachycardia with heart rate of 103. Otherwise normal.. However, repeat blood pressure was 90s over 60s. Physical exam as above. Given history of os teomyelitis of right pinky finger, blood cultures were obtained, and patient was provided broad-spectrum antibiotic coverage with vancomycin and Zosyn. He was given initial bolus of 1 L normal saline. X-ray of the right hand showed worsening bone degradation of the right pinky finger. Chest x-ray did not show any acute cardiopulmonary process. Urinalysis did not show any evidence of urinary tractinfection. Lactate initially elevated but cleared on repeat after fluids. VBG with respiratory acidosis, suspect due to hypoventilation when patient is sleeping, as he has been somnolent, likely due to recent methamphetamine use. CMP with significant ANTOLIN with creatinine of 1.6 from baseline around 0.9. CBC with hemoglobin increased from baseline, suspect hemoconcentration. Orthostatic testing wasremarkably positive, with decrease in systolic blood pressure from the 80s to 50s when transitioning from sitting to standing. Patient was given additional 1 L bolus of normal saline, but was still positive on orthostatics and near syncopal with standing. Discussed patient's case with Orthopedics, and given no leukocytosis or elevated procalcitonin, if patient is septic at this time, it is unlikely to be from chronic osteomyelitis of right pinky. They recommended continuing antibiotics for osteomyelitis, but stated patient has amputation could be performed on outpatient basis. Given this, patient was admitted to the hospitalist service for further workup and management. Patient remained stable while under my care in the emergency department. Clinical Impressions Chest pain Orthostatic hypotension Osteomyelitis of finger of right hand (HCC) Disposition Admitted. I discussed the management of this patient with the admitting provider and I made a decision to admit the patient. Admission Order Ordered Status . 12/11/222003 Admit for Inpatient Services (incl ZPO) ONCE Completed Alberto Ryan * Pardeep Singh RN - 12/11/2022 2:47 PM EDT Pt states he is here because he was supposed to get his right pinky ambulated a couple weeks ago and missed his appointment. Pt reports his vision is blurry and passing out when he stands up. Pt states sugars have been high for months documented in this encounter Miscellaneous Notes * Ancillary Progress Note - Lenin Beckwith SUPERINTENDENT LOGGING - 12/14/2022 4:12 PM EDT PROGRESS NOTE - Physical Therapy [facility]-[address] [id number] Name: Gil Irby Location: [facility] [id number] Date: 12/14/2022 Time: 5:34 PM Gil Irby is a/an 37 year old male. Patient Status: Inpatient Insurance: Payor: [facility] Plan: [facility] PSY[facility] CARVEOUT Product Type: *No Product type* Payor: [employer] [place] Plan: [employer] PLAN Product Type: *No Product type* Patient Seen: at bedside, nursing cleared patient for therapy Patient Identified By: Name, ID Band and Date Diagnosis: weakness (12/13/221099) Status of treatment: OOB evaluation completed (12/13/221099) Orders: PT evaluation and treatment (12/14/221611) Weight Bearing Status: Weight bearing as tolerated (12/14/221611) Precautions: Safety;Falls (12/14/221611) Total Treatment Time--free text: 23 mins (12/14/221611) Subjective: "Im feeling good. Ready to get out of here" Pain: No complaints of pain P.T. Bed Mobility Supine-Sit: Independent (12/14/221611) Sit-Supine: Independent (12/14/221611) Transfers Sit-Stand: Modified Independent (12/14/221611) Stand-Sit: Modified Independent (12/14/221611) W/C-Bed/Mat: Modified Independent (12/14/221611) Ambulation: Distance ambulated (feet): 200 Assistive Device: Quad cane Assist: Modified Independent Stair Training: Number of stairs: 10 Number of handrails: 1 Level of Assistance: Mod I and QBC Balance Sit (Static): Good (12/13/221099) Sit (Dynamic): Good (12/13/221099) Stand (Static): Fair (12/13/221099) Stand (Dynamic): Fair (12/13/221099) Patient and or Family Goal(s): to get well and to return home Topic of Education: Safety with mobility, Use of assistive device, Stair training, and Fall prevention Method of Education: Demonstrated the above task to pt: verbalized understanding and or agreement of this information and demonstrated the exercise and or task Treatment Provided: Therapeutic Activities 10 minutes: bed mobility training transfer training Gait Training 13 minutes: gait training with narrow base quad cane stair training Alarm Status Patient positioned in: Bed (12/14/221611) With: Call dahl in reach (12/14/221611) Patient Education Review of Precautions: Safety;Fall (12/14/221611) Safety Awareness: Patient verbalizes insight of current deficits;Patient demonstrates carryover of insight during functional tasks;Patient can communicate basic needs (12/14/221611) Preferred learning method: Combination (12/13/221099) Barriers to learning: Medical Status (12/13/221099) Method of Education: Verbalized to patient;Demonstrated to patient (12/13/221099) Assessment: Pt tolerated tx fair with no reported pain or SOB post tx session. Pt did report feeling fatigued post tx session. Pt was able to transfer and ambulate with a QBC and Mod I. Pt is steady and safe w/o assistance. Pt was also able to go up/down a flight of stairs with 1 HR and Mod I with the QBC. Pt used the BR before retuning back to bed. No needs post tx session. Deficits requiring P.T. treatment needs: Safety;Mobility;Balance;Weakness;Lower extremity strength (12/13/221099) Plan: Continue with current treatment plan established on evaluation. AM PAC Score with Stairs: 24 * Pt Handout (on AVS) - Isela Ro RN - 12/14/2022 4:06 PM EDT [address] Discharge Instructions for Osteomyelitis You have a condition called osteomyelitis. This is a bone infection caused by bacteria or fungi. Itmay have spread through the blood from one area of your body to the bone. Osteomyelitis is called acute when the infection is new. It's called chronic when you've had it for a longer time. Home care Take your medicine exactly as directed. If you were given antibiotics or antifungal medicine, make sure you finish the prescription?even if you feel better. If you don?t finish the medicine, the infection may return and may make future infections harder to treat. Be careful not to injure the area where you have the infection. Carefully follow all instructions for taking care of any wounds. Use a splint, sling, or brace as directed by your healthcare provider. Follow-up care Make a follow-up appointment, or as directed. When to get medical care Call your healthcare provider if you have any of the following: Increasing pain, redness, swelling, or drainage in the infected area Fever of 100.4 F ( 38C) or higher, or as advised by your provider Chills Increasing fatigue or feeling tired Last Reviewed Date: 04/19/202119996966-6938 [employer]. All rights reserved. This information is not intended as a substitute for professional medical care. Always follow your healthcare professional's instructions. * Pt Handout (on AVS) - Isela Ro RN - 12/14/2022 4:05 PM EDT Images from the original note were not included. [id number] Sulfamethoxazole/Trimethoprim Oral Tablet Brands: Bactrim Uses For infection. Instructions Swallow with a full glass (8 oz) of water unless your doctor gives you different instructions. You may take with food to prevent stomach upset. Space doses evenly to keep a steady amount of medicine in the body. Keep the medicine at room temperature. Avoid heat and direct light. Drink plenty of water while on this medicine. This medicine can make you sensitive to the sun. Use sunscreen or protective clothing when in sun. If you forget to take a dose on time, take it as soon as you remember. If it is almost time for thenext dose, do not take the missed dose. Return to your normal schedule. Do not take 2 doses at one time. Drug interactions can change how medicines work or increase risk for side effects. Tell your healthcare providers about all medicines taken. Include prescription and wymo-pyz-hkenkvj medicines, vitamins, and herbal medicines. Speak with your doctor or pharmacist before starting or stopping any medicine. Tell your doctor if symptoms do not get better or if they get worse. Keep using this medicine for the full number of days that it is prescribed. Do not stop the medicine even if you start to feel better. This medicine may affect your blood sugar levels. If you have diabetes, talk to your doctor before changing the dose of your diabetes medicine. If you have diabetes and use urine glucose tests, this medicine may cause incorrect results. Pleasecheck with your doctor before making any changes to your diabetes treatment plan. Keep all appointments for medical exams and tests while on this medicine. Cautions Tell your doctor and pharmacist if you ever had an allergic reaction to a medicine. Some patients taking this medicine have experienced serious side effects. Please speak with your doctor to understand the risks and benefits associated with this medicine. This medicine has been associated with a rare but serious skin rash. If you notice any red, peelingor blistered skin, contact your doctor immediately. Do not use the medication any more than instructed. Speak with your health care provider before receiving any vaccinations. Please tell your doctor if you have moderate to severe diarrhea while on this medicine. Do not treat the diarrhea with swar-tjc-[id number] diarrhea medicine. Do not breastfeed while on this medicine. This medicine can hurt a new baby in the womb. If you become while on this medicine, tell your doctor immediately. Your doctor may switch you to a different medicine. Do not share this medicine with anyone who has not been prescribed this medicine. Side Effects The following is a list of some common side effects from this medicine. Please speak with your doctor about what you should do if you experience these or other side effects. decreased appetite diarrhea nausea and vomiting Call your doctor or get medical help right away if you notice any of these more serious side effects: severe or persistent abdominal pain bleeding or bruising blurry vision severe, watery or bloody diarrhea swelling in the neck or throat severe or persistent headache fast, irregular, or slow heartbeat signs of kidney damage (such as change in urine color or bubbly urine) signs of liver damage (such as yellowing of eye or skin, dark urine, or unusual tiredness) muscle weakness sore or stiff neck seizures red, peeling or blistering skin vaginal itching or yeast infection A few people may have an allergic reaction to this medicine. Symptoms can include difficulty breathing, skin rash, itching, swelling, or severe dizziness. If you notice any of these symptoms, seek medical help quickly. Extra Please speak with your doctor, nurse, or pharmacist if you have any questions about this medicine. [email or web address] IMPORTANT NOTE: This document tells you briefly how to take your medicine, but it does not tell youall there is to know about it. Your doctor or pharmacist may give you other documents about your medicine. Please talk to them if you have any questions. Always follow their advice. There is a more complete description of this medicine available in Jordanian. Scan this code on your smartphone or tablet or use the web address below. You can also ask your pharmacist for a printout. If you have any questions, please ask your pharmacist. The display and use of this drug information is subject to Terms of Use. Copyright(c) 2022 [employer]. [employer]. All rights reserved. This information is not intended as a substitute for professional medical care. Always follow your healthcare professional's instructions. * Pt Handout (on AVS) - Isela Ro RN - 12/14/2022 4:05 PM EDT Images from the original note were not included. [id number] Mirtazapine Oral Tablet Brands: Remeron Uses This medicine is used for the following purposes: depression muscle aches post-traumatic stress disorder Instructions This medicine may be taken with or without food. This medicine will work best if you take it at about the same time every day. Keep the medicine at room temperature. Avoid heat and direct light. It may take several weeks for this medicine to fully work. It is important that you keep taking each dose of this medicine on time even if you are feeling well. If you forget to take a dose on time, take it as soon as you remember. If it is almost time for thenext dose, do not take the missed dose. Return to your normal schedule. Do not take 2 doses at one time. Tell your doctor and pharmacist about all your medicines. Include prescription and cchb-dxm-ayfjaitwafenwqvh, vitamins, and herbal medicines. Do not suddenly stop taking this medicine. Check with your doctor before stopping. Cautions Tell your doctor and pharmacist if you ever had an allergic reaction to a medicine. Do not use the medication any more than instructed. This medicine may cause dizziness or fainting, especially after exercising or in hot weather. Be very careful when standing or sitting up quickly. Your ability to stay alert or to react quickly may be impaired by this medicine. Do not operate machinery or drive while on this medicine. Please check with your doctor before drinking alcohol while on this medicine. Family should check on the patient often. Call the doctor if patient becomes more depressed, has thoughts of suicide, or shows changes in behavior. Tell the doctor or pharmacist if you are , planning to be , or . Do not start or stop any other medicines without first speaking to your doctor or pharmacist. Do not share this medicine with anyone who has not been prescribed this medicine. Some patients have serious side effects from this medicine. Ask your pharmacist to show you the information from the Food and Drug Administration (FDA) and discuss it with you. Side Effects The following is a list of some common side effects from this medicine. Please speak with your doctor about what you should do if you experience these or other side effects. constipation dizziness or drowsiness dry mouth weight gain Call your doctor or get medical help right away if you notice any of these more serious side effects: agitated feeling or trouble sleeping confusion swelling of the legs, feet, and hands pain in the eye fainting fever swelling in the neck or throat hallucinations (unusual thoughts, seeing or hearing things that are not real) fast or irregular heart beats mood changes muscle aches, spasms or abnormal movements dilation of the pupils shakiness blurring or changes of vision A few people may have an allergic reaction to this medicine. Symptoms can include difficulty breathing, skin rash, itching, swelling, or severe dizziness. If you notice any of these symptoms, seek medical help quickly. Extra Please speak with your doctor, nurse, or pharmacist if you have any questions about this medicine. [email or web address].[email or web address].BuildZoom/[email or web address]/fdbpem/[email or web address] IMPORTANT NOTE: This document tells you briefly how to take your medicine, but it does not tell youall there is to know about it. Your doctor or pharmacist may give you other documents about your medicine. Please talk to them if you have any questions. Always follow their advice. There is a more complete description of this medicine available in Jordanian. Scan this code on your smartphone or tablet or use the web address below. You can also ask your pharmacist for a printout. If you have any questions, please ask your pharmacist. The display and use of this drug information is subject to Terms of Use. Copyright(c) 2022 [employer]. 0836-1751 The [employer]. All rights reserved. This information is not intended as a substitute for professional medical care. Always follow your healthcare professional's instructions. * Pt Handout (on AVS) - Isela Ro RN - 12/14/2022 4:04 PM EDT Images from the original note were not included. [id number] Amoxicillin/Clavulanate Oral Tablet Brands: Augmentin Uses For treating bacterial infection. Instructions Take the medicine with food. Keep the medicine at room temperature. Avoid heat and direct light. It is important that you keep taking each dose of this medicine on time even if you are feeling well. If you forget to take a dose on time, take it as soon as you remember. If it is almost time for thenext dose, do not take the missed dose. Return to your normal schedule. Do not take 2 doses at one time. Tell your doctor and pharmacist about all your medicines. Include prescription and fram-vil-aoezyskbtmeswlye, vitamins, and herbal medicines. Keep using this medicine for the full number of days that it is prescribed. Do not stop the medicine even if you start to feel better. If you have diabetes and use urine glucose tests, this medicine may cause incorrect results. Pleasecheck with your doctor before making any changes to your diabetes treatment plan. Cautions Tell your doctor and pharmacist if you ever had an allergic reaction to a medicine. Do not use the medication any more than instructed. Please tell your doctor if you have moderate to severe diarrhea while on this medicine. Do not treat the diarrhea with ijpw-num-fjbiyfh diarrhea medicine. Tell the doctor or pharmacist if you are , planning to be , or . Do not start or stop any other medicines without first speaking to your doctor or pharmacist. Do not share this medicine with anyone who has not been prescribed this medicine. Side Effects The following is a list of some common side effects from this medicine. Please speak with your doctor about what you should do if you experience these or other side effects. diarrhea nausea and vomiting stomach upset or abdominal pain Call your doctor or get medical help right away if you notice any of these more serious side effects: severe or persistent abdominal pain severe, watery or bloody diarrhea signs of liver damage (such as yellowing of eye or skin, dark urine, or unusual tiredness) red, burning, or itchy skin yeast infection of mouth vaginal itching or discharge A few people may have an allergic reaction to this medicine. Symptoms can include difficulty breathing, skin rash, itching, swelling, or severe dizziness. If you notice any of these symptoms, seek medical help quickly. Extra Please speak with your doctor, nurse, or pharmacist if you have any questions about this medicine. [email or web address] IMPORTANT NOTE: This document tells you briefly how to take your medicine, but it does not tell youall there is to know about it. Your doctor or pharmacist may give you other documents about your medicine. Please talk to them if you have any questions. Always follow their advice. There is a more complete description of this medicine available in Jordanian. Scan this code on your smartphone or tablet or use the web address below. You can also ask your pharmacist for a printout. If you have any questions, please ask your pharmacist. The display and use of this drug information is subject to Terms of Use. Copyright(c) 2022 [employer]. [employer]. All rights reserved. This information is not intended as a substitute for professional medical care. Always follow your healthcare professional's instructions. * Pt Handout (on AVS) - Isela Ro RN - 12/14/2022 4:04 PM EDT Images from the original note were not included. [id number] Quetiapine Extended Release Oral Tablet Brands: Seroquel Uses This medicine is used for the following purposes: anxiety bipolar disorder depression schizophrenia Instructions Swallow the medicine without crushing or chewing it. Take the medicine with a light meal or without food. This medicine will work best if you take it at about the same time every day. Keep the medicine at room temperature. Avoid heat and direct light. It may take several weeks for this medicine to fully work. It is important that you keep taking each dose of this medicine on time even if you are feeling well. If you forget to take a dose on time, take it as soon as you remember. If it is almost time for thenext dose, do not take the missed dose. Return to your normal schedule. Do not take 2 doses at one time. Tell your doctor and pharmacist about all your medicines. Include prescription and rszf-rvd-yhasluyxebkkzfjt, vitamins, and herbal medicines. Do not suddenly stop taking this medicine. Check with your doctor before stopping. This medicine may cause higher blood sugar levels or diabetes. Please follow your doctor's instructions and check your blood sugar level regularly while on this medicine. Cautions Tell your doctor and pharmacist if you ever had an allergic reaction to a medicine. Do not use the medication any more than instructed. This medicine may cause dizziness or fainting, especially after exercising or in hot weather. Be very careful when standing or sitting up quickly. Your ability to stay alert or to react quickly may be impaired by this medicine. Do not operate machinery or drive while on this medicine. Do not drink beverages with alcohol while on this medicine. Avoid becoming overheated during exercise or other activities. Try to stay cool in hot weather. Contact your doctor if you notice a change in the amount or darkening of your urine. Family should check on the patient often. Call the doctor if patient becomes more depressed, has thoughts of suicide, or shows changes in behavior. Tell the doctor or pharmacist if you are , planning to be , or . Do not start or stop any other medicines without first speaking to your doctor or pharmacist. Do not share this medicine with anyone who has not been prescribed this medicine. Some patients have serious side effects from this medicine. Ask your pharmacist to show you the information from the Food and Drug Administration (FDA) and discuss it with you. Side Effects The following is a list of some common side effects from this medicine. Please speak with your doctor about what you should do if you experience these or other side effects. agitated feeling or trouble sleeping constipation dizziness or drowsiness dry mouth headaches rapid heartbeat low blood pressure liver problems muscle pain red, burning, or itchy skin weight gain Call your doctor or get medical help right away if you notice any of these more serious side effects: breathing interruption during sleep fever swelling in the neck or throat difficulty or discomfort urinating A few people may have an allergic reaction to this medicine. Symptoms can include difficulty breathing, skin rash, itching, swelling, or severe dizziness. If you notice any of these symptoms, seek medical help quickly. Extra Please speak with your doctor, nurse, or pharmacist if you have any questions about this medicine. [email or web address].[email or web address]/fdbpem/[email or web address] IMPORTANT NOTE: This document tells you briefly how to take your medicine, but it does not tell youall there is to know about it. Your doctor or pharmacist may give you other documents about your medicine. Please talk to them if you have any questions. Always follow their advice. There is a more complete description of this medicine available in Jordanian. Scan this code on your smartphone or tablet or use the web address below. You can also ask your pharmacist for a printout. If you have any questions, please ask your pharmacist. The display and use of this drug information is subject to Terms of Use. Copyright(c) 2022 [employer]. 2865-4371 [employer]. All rights reserved. This information is not intended as a substitute for professional medical care. Always follow your healthcare professional's instructions. * Ancillary Progress Note - Cari Palmer Director Mobile - 12/14/2022 9:04 AM EDT Call to [facility] for inpatient D&A bed. At this time they do not have any beds. Call to [facility]. They ask that CM fax referral to them. CM faxed referral waiting a call back. Made copy of pt ID and faxed completed [facility] form. Attempted to call the longterm to confirm pt acceptance. No answer and voicemail is full. * Care Plan - Lakesha Dutton RN - 12/14/2022 5:01 AM EDT Clinical Goal(s): pt will experience no dizziness this shift (12/13/221917) Possible barriers to meeting goal(s)/advancing plan of care: + orthos, complaints of dizziness Stability of the patient: Moderately unstable - medium risk of patient condition declining or worsening Summary regarding today's goal(s): Met: pt did not complain of dizziness this shift Recommendations: continue to monitor ortho VS, s/s * Care Plan - Isela Ro RN - 12/13/2022 5:59 PM EDT Clinical Goal(s): patient will be free from dizziness throughout this shift. (12/13/22824) Possible barriers to meeting goal(s)/advancing plan of care: Previous dizziness, blurry vision Stability of the patient: Moderately stable - low risk of patient condition declining or worsening Summary regarding today's goal(s): Met: No c/o dizziness Recommendations: Continue to monitor patient * Ancillary Progress Note - Cari Palmer Director Mobile - 12/13/2022 11:32 AM EDT Spoke to pt regarding transportation and discharge needs. Pt stated to CM he was banned from [facility]. CM called [facility] and they do not have record of pt being banned and said for pt to fill out application. [facility] said they can transport p[place] and [facility] will transport the remainder of the way. Pt needs a photo ID he was calling his to bring it in so CM can submit to [facility].Pt was also provided with [facility] Drug and Alcohol information so they can assist pt get inpatient help once he has his procedure. Called the longterm for pt as he is currently homeless. The longterm is going to run a back ground check and let CM know if pt can go there. * Care Plan - Hannah Cameron RN - 12/13/2022 5:59 AM EDT Clinical Goal(s): Pt will maintain MAP > 65 this shift (12/12/221929) Possible barriers to meeting goal(s)/advancing plan of care: hypotension Stability of the patient: Moderately stable - low risk of patient condition declining or worsening Summary regarding today's goal(s): Met: Pt maintained MAP > 65 Recommendations: continue fluids and midodrine * Ancillary Progress Note - Cariruby Palmer, Director Mobile - 12/12/2022 10:35 AM EDT CARE MANAGEMENT - ADULT INITIAL SCREENING [address] [id number] Name: Gil Irby Location: [facility] [id number] Date: 12/12/2022 Time: 10:35 AM Patient Class: Inpatient (12/12/221022) Discussed patient with the interdisciplinary care team. This Telehealth Case Manager performed a chart review and met with pt at bedside to complete admission screen and assessed needs for transition planning. The coronary care unit nurse role and services were explained and emotional support was provided. 30 Day Readmission Screening 30 Day Readmission Readmission within 30 days?: No (12/12/221022) Chief Complaint: Multiple Complaints Prior Living Arrangements What was your living situation prior to admission/observation?: With Parent (12/12/221022) Do you have any children, pets, or other dependents that you are currently caring for?: No (12/12/221022) Living Quarters: Other - Comment (Duplex) (12/12/221022) How many stories is the dwelling?: Two Stories (12/12/221022) Number of steps to enter living quarters:: 3 (12/12/221022) Location of bathroom(s): Upstairs only (12/12/221022) Do you have serious difficulty walking or climbing stairs? (5 years old or older): Yes (12/12/221022) History of falling: No (12/12/22 08) Prior Level of Functioning Describe the patient's ability prior to admission/observation to perform ADLs: Performs independently (12/12/221022) Describe the patient's mobility status prior to admission: Patient ambulates independently (12/12/221022) Patient uses assistive device: Yes (12/12/221022) If yes, choose:: Cane;Wheelchair (12/12/22 1023) Caregiver Information Patient Contacts Name Relation Home Work Mobile Shannon Rojas Mother [phone] Monica Irby Spouse [phone] Calli Irby Other - (no specific identity) [phone] Thalia Etienne Grandparent [phone] Risk Stratification/Psychosocial/Care Gaps Risk Stratification Medical and Behavioral Health Concerns Identified: Substance Abuse (12/12/22 1023) Psycho Social/Care Gaps concerns identified upon admission:: N/A (12/12/22 102) Accessed Knowrom to connect patients to social care resources: Yes (12/12/22 102) OBRA or OPTIONS needed for placement: No (12/12/22 102) Readmission Risk Score: 35 (12/12/22 102) AM-PAC Score With Stairs : 19 (12/12/22 0801) Comments: Pt admitted for chest pain. Pt most recent admission was 10/27/22. PMH Malnutrition of moderate degree. ADHD, Bipolar disorder, Anxiety, Depression, Hypothyroid, and Diabetes type 1. Pt states he completes ADL's independently. Pt does walk with a cane and also has a wheelchair. Pt does use oxygen at baseline 2L as needed and .5 at night. He gets his supplies from [facility]. Pt does have trouble with transportation, but states he is not eligible for [facility] as he has been banned for life. Unsure of how he will be transported at discharge. Pt is interested in inpatient drug and alcohol treatment, however he is worried about his hand and getting that taken care of. Pt also expressed concerns with going somewhere that will help manage his diabetes. CM explained we can make referrals to places that can help manage his medical needs. Pt in agreement with D&A referrals. Pt has had HH in the past with [facility]. Pt opened to HH again but w ould like to know more about his hand. Pt does not want his emergency contacts Shannon Rojas (mother) or Thalia Etienne (grandmother) called or notified of pt treatment. Pt states that his current address is at his mothers home, but he does not want to return there due to the environment. Pt states that there are drugs around and it is hard for him to not use while there. Pt also states concerns for physical safety and the pesticide applicator have beeninvolved. Pt does not have any income and does not qualify for SSDI. Pt would like community resources for food fink and help with utilities. He states he does get food stamps but that his food is eaten without his permission and there is nothing left for him. Prior to Admission Services Services Prior to Admission SUPERINTENDENT LOGGING Services (Services received within the last 30 days with exception, Psych within last two years): N/A (12/12/22 1023) [place] Dept. of Aging (PDA) Waiver Program: N/A (12/12/22 102) SUPERINTENDENT LOGGING Transportation (Services received within the last 30 days): Family/Friends Personal Vehicle (12/12/22 102) Outpatient Telehealth Case Manager: No Patient/Family Expectations: to get hand fixed and to go to Inpatient Drug and Alcohol rehab. Anticipated Disposition Plan & Post Acute Needs Anticipated Plan Anticipated D/C disposition per abbreviated screening: Post hospitalization needs identified, continue to monitor for transition planning (12/12/221022) Anticipated Post-Acute Care needs identified: Wound Care (other than pressure ulcer);Rehab (12/12/221022) For further screening information, please refer to the Care Management flow document. * Care Plan - Hannah Cameron RN - 12/12/2022 6:05 AM EDT Clinical Goal(s): Pt will rest > 6 hours this shift (12/11/22 2100) Possible barriers to meeting goal(s)/advancing plan of care: hospital environment Stability of the patient: Moderately stable - low risk of patient condition declining or worsening Summary regarding today's goal(s): Met: Pt slept > 6 hours this shift Recommendations: continue to promote rest * Communication - Chacha Tabares RN - 12/11/2022 8:30 PM EDT Hand-Off - Nurse Communication Note Name: Gil Irby Location: X Date: 12/11/2022 Time: 8:30 PM Sending to: 5A Safety Concerns: None Allergies: Patient has no known allergies. Code Status: Full Code Discussion of adv directives occurred with - adult: Patient Isolation: None Isolation flowsheet: Special Needs: Isolation [10] Special Needs comments: Group A strep 10/27/22 Attention to: nursing Report from: Chacha Tabares RN Phone extension: [phone] Patient arriving via: Bed Reason for SBAR handoff: Admission Situation/Background Admission date: 12/11/2022 Patient Service: Hospitalists [[id number]] Attending Provider: Marlon Banda MD Admitting diagnosis: Chest pain Chief Complaint: Multiple Complaints Problem list: Principal Problem: Dehydration Active Problems: Hypothyroidism Type 1 diabetes mellitus with hemoglobin A1c goal of less than 8.0% (HCC) Bipolar 1 disorder, depressed (HCC) Severe protein-calorie malnutrition (HCC) Opioid use disorder, severe, on maintenance therapy (HCC) Osteomyelitis (HCC) ANTOLIN (acute kidney injury) (HCC) Orthostatic hypotension Methamphetamine abuse (HCC) Resolved Problems: * No resolved hospital problems. * Level of Care: Med Surg [3] Assessment Vital Signs: BP: 108/81 (12/11/221999) Temp: 36.4 C (97.5 F) (12/11/221447) Pulse: 77 (12/11/221999) Resp: 18 (12/11/221999) SpO2: 99 % (12/11/221999) Fall Scale: Fall Score: 50 (12/11/221627) Fall Interventions: Bed at low level;Floor free of clutter;Walk path free of obstacles (12/11/221627) Neurological: Indira Coma Scale Eyes Open: Spontaneous (12/11/221448) Best Verbal Response: Verbally appropriate for age (12/11/221448) Best Motor Response: Obeys commands appropriate for age (12/11/221448) Coma Score: 15 (12/11/221448) Additional Neurological Information: AOx4 Respiratory: Respiratory WNL: WNL- within normal limits (12/11/221628) Cough: None (12/11/221628) Depth/Rhythm: Regular (12/11/221628) Dyspnea Occurance: None (12/11/221628) Effort: Unlabored (12/11/221628) Oxygen therapy/ Mechanical vent Supplemental O2 Delivery: Room Air, None (12/11/22 1700) Additional Respiratory Information: NA Cardiac: Rhythm: Regular (12/11/221628) Extremities: +Sensation;Right;Left;Upper;Lower (12/11/221628) Pulses Right: Radial +;Dorsalis Pedis + (12/11/221628) Pulses Left: Radial +;Dorsalis Pedis + (12/11/221628) Edema: No (12/11/221628) Capillary Refill: 2 sec (12/11/221628) Additional Cardiac Information: NA GI/: Abdomen: Soft;Non-distended;Non-tender (12/11/221628) Bowel Sounds: All Quadrants;Regular (12/11/221628) Additional GI/ Information: continent Integumentary: Skin Description: Warm;Dry (12/11/221628) Skin Color: Flesh Tone (12/11/221628) Additional Integumentary Information: NA Restraints: No orders of the defined types were placed in this encounter. Lines: Peripheral Line Left Antecubital 20 Gauge (Active) Status Flushes easily;Capped/Locked;Positive blood return 12/11/221627 Phlebitis Scale 0 12/11/221627 Infiltration Scale 0 12/11/221627 Site Description (Other) Without redness, swelling or drainage 12/11/221627 Site Intervention Flushed 12/11/221627 Dressing Assessment Transparent dressing;Dressing clean, dry, and intact;Occlusive 12/11/221627 Dressing Intervention Applied 12/11/221627 Number of days: 0 Peripheral Line Left Antecubital 20 Gauge (Active) Number of days: 0 Labs: Labs This Encounter COMPREHENSIVE METABOLIC PANEL - Abnormal; Notable for the following components: Result Value Ref Range BUN 43 6 - 20 mg/dL Creatinine 1.6 0.6 - 1.2 mg/dL Estimated Glomerular Filtration Rate 59 >=60 mL/min Protein 8.6 6.0 - 8.3 g/dL All other components within normal limits CBC - Abnormal; Notable for the following components: HGB 12.0 14.0 - 16.8 g/dL HCT 35.9 40.0 - 48.4 % PLT 425 140 - 400 K/uL All other components within normal limits DIFFERENTIAL, AUTOMATED - Abnormal; Notable for the following components: Lymphocytes % 49.3 18.0 - 42.0 % All other components within normal limits BLOOD GAS, VENOUS - Abnormal; Notable for the following components: pH, Venous 7.247 7.320 - 7.430 units pCO2, Venous 72.6 40.0 - 60.0 mmHg pO2, Venous 20.2 25.0 - 50.0 mmHg Hemoglobin, Whole Blood 12.6 14.0 - 16.8 g/dL Oxyhemoglobin, Venous 25.9 40.0 - 85.0 % total Hgb Carboxyhemoglobin, Whole Blood 5.3 <=1.5 % total Hgb O2 Content, Venous 4.6 7.0 - 18.0 %vol All other components within normal limits URINALYSIS, REFLEX TO MICROSCOPIC - Abnormal; Notable for the following components: Glucose, Urine >=1000 Negative mg/dL Blood, Urine Trace Negative Protein, Urine Trace Negative mg/dL All other components within normal limits LACTATE - Abnormal; Notable for the following components: Lactate 2.7 0.4 - 2.0 mmol/L All other components within normal limits MICROSCOPIC EXAM, URINE - Abnormal; Notable for the following components: Bacteria, Urine 51-100 0 - 25 /HPF All other components within normal limits GLUCOSE METER, POINT OF CARE - Abnormal; Notable for the following components: Glucose Meter 177 70 - 120 mg/dL All other components within normal limits TROPONIN T, HIGH SENSITIVITY - Normal TROPONIN T, HIGH SENSITIVITY - Normal PROCALCITONIN - Normal Narrative: Less than 0.5 ng/mL: Low risk for progression to sepsis. Review patients condition for localized infections. 0.5 to 2.0 ng/mL: Intermediate risk for progresion to sepsis. Review underlying conditions. Recommend repeat PCT after 6 hours has elapsed. Greater than 2.0 ng/mL: high risk for progression to sepsis unless other causes are known. MAGNESIUM - Normal PHOSPHORUS - Normal LACTATE - Normal CBC WITH WBC DIFFERENTIAL Narrative: The following orders were created for panel order CBC WITH WBC DIFFERENTIAL. Procedure Abnormality Status --------- ------ CBC[[id number]] Abnormal Final result DIFFERENTIAL, AUTOMATED[[id number]] Abnormal Final result Please view results for these tests on the individual orders. EXTRA LIGHT BLUE TOP EXTRA TUBES Narrative: The following orders were created for panel order EXTRA TUBES. Procedure Abnormality Status --------- ------ EXTRA HOANG TOP[[id number]] Final result Please view results for these tests on the individual orders. EXTRA HOANG TOP CULTURE, BLOOD CULTURE, BLOOD TOXICOLOGY, URINE SCREEN W/O CONFIRMATION GLUCOSE METER, POINT OF CARE (COMMUNICATION ORDER) GLUCOSE METER, POINT OF CARE (COMMUNICATION ORDER) GLUCOSE METER, POINT OF CARE (COMMUNICATION ORDER) GLUCOSE METER, POINT OF CARE (COMMUNICATION ORDER) GLUCOSE METER, POINT OF CARE (COMMUNICATION ORDER) Diet: Orders Placed This Encounter Procedures Heart Healthy Consistent Carbohydrate Diet : Sodium: 2 gm --- Number of Choices: 4 (60 grams) --- Fluid Restriction (ml): None Additional Diet Information: NA Intake and Output: Intake/Output Summary (Last 24 hours) at 12/11/20222029 Last data filed at 12/11/2022 192 Gross per 24 hour Intake 2374.82 ml Output -- Net 2374.82 ml Patient Belongings and Home Medications Patient Belongings at Bedside Belongings at Bedside: None (12/11/221627) Patient Belongings Sent Home (Does not apply to Ambulatory areas) Belongings Sent Home: None (12/11/221627) Patient Belongings Sent to Safe/Locker Belongings Sent to Safe: None (12/11/221627) Patient Medications Medications Brought by Patient?: No (12/11/221627) Recommendations/Follow up Goals/Plan of Care: observation 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 No * Medical Necessity - Paulette Tineo RN - 12/11/2022 7:51 PM EDT AdmissionCare Guideline: Osteomyelitis, Inpatient Based on the indications selected for the patient, the bed status of Admit to Inpatient was determined to be MET The following indications were selected as present at the time of evaluation of the patient: - Limb-threatening infection. See Foot: Surgical Wound Care as appropriate. 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 AdmissionCare documentation entered by: Paulette Tineo [facility] [employer], 26th edition, Copyright 2021 [facility] [employer] All Rights Reserved. [id number] Solely for purpose of utilization review and payment; not a diagnostic tool * ED Computer Science Professor Note - Silvina Chavez RN - 12/11/2022 7:41 PM EDT Pt had near syncopal episode while doing orthos. Vitals reported to Dr. Ryan * ED Computer Science Professor Note - Chacha Tabares RN - 12/11/2022 4:36 PM EDT Pt came to ED due to multiple complaints. Pt states dizziness for months and increased since last night. Pt states last oral intake was today "few fries". 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 Pt states diarrhea and nausea. Pt states right pinky was to be ambulated recently and did not go to appointment. Pt states tingling in fingers and toes. + pulses and ROM in all extremities. Normoactive bowel sounds. Regular heart rhythm. Lungs clear bilaterally. Pt laying in bed with call dahl in reach. All questions answered at this time. and daughter at bedside. IV accessed left AC. Fluids started as per eMAR. 1658: Fluids began and medications as per eMAR. Tolerated well. Pt laying in bed with call dahl in reach. All questions answered at this time. at bedside. 1922: gave pt another blanket and denies any further needs at this time. pt laying in bed with callbell in reach. All questions answered at this time. at bedside. documented in this encounter Plan of Treatment Upcoming Encounters Date Type Specialty Care Team Description 12/25/2022 Office Visit Family Medicine Av Graves MD [address] [phone] 12/27/2022 Office Visit Family Medicine Av Graves MD [address] [phone] Pending Results Name Type Priority Associated Diagnoses Date /Time CULTURE, BLOOD Lab Routine 12/11/2022 4:23 PM EDT CULTURE, BLOOD Lab Routine 12/11/2022 4:27 PM EDT Scheduled Referrals Name Type Priority Associated Diagnoses Orde r Schedule WOUND CARE REFERRAL OP Referral Within 10 days (routine) Open wound of finger of right hand, subsequent encounter Ordered: 12/13/2022 Health Maintenance Due Date Last Done Comments DISCUSS TOBACCO CESSATION (REFER TO [facility] #[id number]) 1985 Hepatitis B (1 of 3 - [...] Diagnosis Comments GLUCOSE METER, POINT OF CARE ADARSH 12/14/2022 11:43 AM EDT GLUCOSE METER, POINT OF CARE ADARSH 12/14/2022 8:15 AM EDT COMPREHENSIVE METABOLIC PANEL Routine 12/14/2022 4:18 AM EDT PHOSPHORUS Routine 12/14/2022 4:18 AM EDT CBC Routine 12/14/2022 4:18 AM EDT MAGNESIUM Routine 12/14/2022 4:18 AM EDT GLUCOSE METER, POINT OF CARE ADARSH 12/13/2022 9:31 PM EDT GLUCOSE METER, POINT OF CARE ADARSH 12/13/2022 4:59 PM EDT GLUCOSE METER, POINT OF CARE ADARSH 12/13/2022 11:39 AM EDT GLUCOSE METER, POINT OF CARE ADARSH 12/13/2022 7:53 AM EDT VANCOMYCIN RANDOM Timed 12/13/2022 5:3 3 AM EDT COMPREHENSIVE METABOLIC PANEL Routine 12/13/2022 5:33 AM EDT PHOSPHORUS Routine 12/13/2022 5:33 AM EDT LACTATE Routine 12/13/2022 5:33 AM EDT CBC Routine 12/13/2022 5:33 AM EDT MAGNESIUM Routine 12/13/2022 5:33 AM EDT GLUCOSE METER, POINT OF CARE ADARSH 12/12/2022 10:00 PM EDT GLUCOSE METER, POINT OF CARE ADARSH 12/12/2022 5:24 PM EDT ECHO, COMPLETE (2D), TRANS-THORACIC Routine 12/12/2022 1:44 PM EDT Syncope, unspecified syncope type GLUCOSE METER, POINT OF CARE ADARSH 12/12/2022 11:23 AM EDT GLUCOSE METER, POINT OF CARE ADARSH 12/12/2022 7:30 AM EDT CRP (INFLAMMATORY MARKER) Add-on 12/12/2022 5:04 AM EDT BASIC METABOLIC PANEL Routine 12/12/2022 5:04 AM EDT CBC Routine 12/12/2022 5:04 AM EDT GLUCOSE METER, POINT OF CARE ADARSH 12/11/2022 9:28 PM EDT LACTATE STAT 12/11/2022 6:12 PM EDT MICROSCOPIC EXAM, URINE STAT 12/11/2022 5:42 PM EDT TOXICOLOGY, URINESCREEN W/O CONFIRMATION Add-on 12/11/2022 5:42 PM EDT URINALYSIS, REFLEX TO MICROSCOPIC STAT 12/11/2022 5:42 PM EDT XR HAND 3 OR MORE VIEWS STAT 12/11/2022 4:55 PM EDT BLOOD GAS, VENOUS STAT 12/11/2022 4:2 7 PM EDT CULTURE, BLOOD Routine 12/11/2022 4:27 PM EDT CULTURE, BLOOD Routine 12/11/2022 4:23 PM EDT TROPONIN T, HIGH SENSITIVITY STAT 12/11/2022 4:17 PM EDT PHOSPHORUS Add-on 12/11/2022 4:17 PM EDT MAGNESIUM Add-on 12/11/2022 4:17 PM EDT EXTRA HOANG TOP Routine 12/11/2022 4:16 PM EDT EXTRA TUBES Routine 12/11/2022 4:16 PM EDT LACTATE Add-on 12/11/2022 4:16 PM EDT EXTRA LIGHT BLUE TOP STAT 12/11/2022 3:39 PM EDT DIFFERENTIAL, AUTOMATED STAT 12/11/2022 3:39 PM EDT TROPONIN T, HIGH SENSITIVITY STAT 12/11/2022 3:39 PM EDT PROCALCITONIN Add-on 12/11/2022 3:39 PM EDT COMPREHENSIVE METABOLIC PANEL STAT 12/11/2022 3:39 PM EDT CBC STAT 12/11/2022 3:39 PM EDT CBC STAT 12/11/2022 3:39 PM EDT XR CHEST 2 VIEWS STAT 12/11/2022 3:11 PM EDT HC ECG TRACING ONLY STAT 12/11/2022 2 :55 PM EDT Chest pain GLUCOSE METER, POINT OF CARE ADARSH 12/11/2022 2:50 PM EDT documented in this encounter Results * (ABNORMAL) GLUCOSE METER, POINT OF CARE (12/14/2022 11:43 AM EDT) [facility] Glucose Meter 174(H) 70 - 120 mg/dL 12/14/2022 12:32 PM EDT [facility] Blood Whole blood specimen / Unknown 12/14/2022 11:43 AM EDT 12/14/2022 12:32 PM EDT Alvarez Us MD LAB POINT OF CARE TE ST DOCKED DEVICE UNSOLICITED RESULTS Performing Organization Address [facility]/ZIP Co de Phone Number [facility] [address] [place] [address] * (ABNORMAL) GLUCOSE METER, POINT OF CARE (12/14/2022 8:15 AM EDT) Glucose Meter 138(H) 70 - 120 mg/dL 12/14/2022 8:23 AM EDT [facility] Blood Whole blood specimen / Unknown 12/14/2022 8:15 AM EDT 12/14/2022 8:23 AM EDT Alvarez Us MD LAB POINT OF CARE TE ST DOCKED DEVICE UNSOLICITED RESULTS Performing Organization Address [facility] Co de Phone Number [facility] [address] [place] [phone] * (ABNORMAL) PHOSPHORUS (12/14/2022 4:18 AM EDT) Phosphorus 2.4(L) 2.5 - 4.8 mg/dL 12/14/2022 5:31 AM EDT LABORATORY [facility] Blood Venous blood specimen / Unknown Venipuncture / Unknown 12/14/2022 4:18 AM EDT 12/14/2022 5:08 AM EDT Ladan Alvarado PA-C LAB BLOOD ORDER LETHA Performing Organization Address City/[facility] Co de Phone Number LABORATORY [address] [address] * MAGNESIUM (12/14/2022 4:18 AM EDT) Magnesium 1.8 1.5 - 2.6 mg/dL 12/14/2022 5:31 AM EDT LABORATORY [facility] Blood Venous blood specimen / Unknown Venipuncture / Unknown 12/14/2022 4:18 AM EDT 12/14/2022 5:08 AM EDT Ladan Alvarado PA-C LAB BLOOD ORDER LETHA LABORATORY [address] [address] * (ABNORMAL) CBC (12/14/2022 4:18 AM EDT) WBC 5.48 4.00 - 10.80 K/uL 12/14/2022 5:18 AM EDT LABORATORY [facility] RBC 3.22 4.50 - 5.25 M/uL 12/14/2022 5:18 AM EDT LABORATORY [facility] HGB 10.2(L) 14.0 - 16.8 g/dL 12/14/2022 5:18 AM EDT LABORATORY [facility] HCT 31.3(L) 40.0 - 48.4 % 12/14/2022 5:18 AM EDT LABORATORY [facility] MCV 97.2 82.0 - 99.5 fL 12/14/2022 5:18 AM EDT LABORATORY [facility] MCH 31.7 27.0 - 34.0 pg 12/14/2022 5:18 AM EDT LABORATORY [facility] MCHC 32.6 32.0 - 36.0 g/dL 12/14/2022 5:18 AM EDT LABORATORY [facility] RDW 13.6 11.5 - 15.5 % 12/14/2022 5:18 AM EDT LABORATORY [facility] PLT 347 140 - 400 K/uL 12/14/2022 5:18 AM EDT LABORATORY [facility] MPV 9.1 6.6 - 11.1 fL 12/14/2022 5:18 AM EDT LABORATORY [facility] nRBCs 0 <=0 /100 WBCs 12/14/2022 5:18 AM EDT LABORATORY [facility] Blood Venous blood specimen / Unknown Venipuncture / Unknown 12/14/2022 4:18 AM EDT 12/14/2022 5:08 AM EDT Ladan Alvarado PA-C LAB BLOOD ORDER LETHA LABORATORY [facility] [address] [facility] [place] [address] * (ABNORMAL) COMPREHENSIVE METABOLIC PANEL (12/14/2022 4:18 AM EDT) BUN 21(H) 6 - 20 mg/dL 12/14/2022 5:31 AM EDT LABORATORY [facility] Creatinine 0.9 0.6 - 1.2 mg/dL 12/14/2022 5:31 AM EDT LAB[facility]ATORY [facility] Estimated Glomerular Filtration Rate >90 >=60 mL/min 12/14/2022 5:31 AM EDT LAB[facility]ATORY [facility] Comment:eGFR is calculated b ased on the CKD-EPI 2020 equation Sodium 140 135 - 146 mmol/L 12/14/2022 5:31 AM EDT LAB[facility]ATORY [facility] Potassium 3.8 3.5 - 5.1 mmol/L 12/14/2022 5:31 AM EDT LAB[facility]ORY [facility] Chloride 108(H) 98 - 107 mmol/L 12/14/2022 5:31 AM EDT LAB[facility]ORY [facility] CO2 26 22 - 32 mmol/L 12/14/2022 5:31 AM EDT [facility] Anion Gap 6(L) 7 - 15 mmol/L 12/14/2022 5:31 AM EDT LAB[facility]ATORY [facility] Glucose 160(H) 70 - 120 mg/dL 12/14/2022 5:31 AM EDT LAB[facility]ATORY [facility] Albumin 2.9(L) 3.8 - 5.0 g/dL 12/14/2022 5:31 AM EDT LAB[facility]ATORY [facility] AST 19 10 - 50 U/L 12/14/2022 5:31 AM EDT LAB[facility]ATORY [facility] Alkaline Phosphatase 55 35 - 130 U/L 12/14/2022 5:31 AM EDT LAB[facility]ATORY [facility] Bilirubin, Total <0.2 <=1.2 mg/dL 12/14/2022 5:31 AM EDT LAB[facility]ATORY [facility] Calcium 8.2(L) 8.4 - 10.2 mg/dL 12/14/2022 5:31 AM EDT LAB[facility]ATORY [facility] Protein 5.8(L) 6.0 - 8.3 g/dL 12/14/2022 5:31 AM EDT LABORATORY GL ALT 19 10 - 50 U/L 12/14/2022 5:31 AM EDT LABORATORY [facility] Blood Venous blood specimen / Unknown Venipuncture / Unknown 12/14/2022 4:18 AM EDT 12/14/2022 5:08 AM EDT Ladan Alvarado PA-C LAB BLOOD ORDER LETHA Performing Organization Address City/[facility]/ZIP Co de Phone Number LABORATORY [facility] [address] [place] [address] * (ABNORMAL) GLUCOSE METER, POINT OF CARE (12/13/2022 9:31 PM EDT) Glucose Meter 195(H) 70 - 120 mg/dL 12/13/2022 9:38 PM EDT [facility] Blood Whole blood specimen / Unknown 12/13/2022 9:31 PM EDT 12/13/2022 9:38 PM EDT Alvarez Us MD LAB POINT OF CARE TE ST DOCKED DEVICE UNSOLICITED RESULTS Performing Organization Address [facility] de Phone Number [facility] [address] [place] [phone] * (ABNORMAL) GLUCOSE METER, POINT OF CARE (12/13/2022 4:59 PM EDT) Glucose Meter 232(H) 70 - 120 mg/dL 12/13/2022 6:18 PM EDT [facility] Blood Whole blood specimen / Unknown 12/13/2022 4:59 PM EDT 12/13/2022 6:18 PM EDT Alvarez Us MD LAB POINT OF CARE TE ST DOCKED DEVICE UNSOLICITED RESULTS Performing Organization Address [facility] de Phone Number [facility] [address] [place] [address] * GLUCOSE METER, POINT OF CARE (12/13/2022 11:39 AM EDT) Glucose Meter 117 70 - 120 mg/dL 12/13/2022 1:14 PM EDT [facility] Blood Whole blood specimen / Unknown 12/13/2022 11:39 AM EDT 12/13/2022 1:14 PM EDT Alvarez Us MD LAB POINT OF CARE TE ST DOCKED DEVICE UNSOLICITED RESULTS [facility] [address] [place] [address] * GLUCOSE METER, POINT OF CARE (12/13/2022 7:53 AM EDT) Glucose Meter 104 70 - 120 mg/dL 12/13/2022 8:10 AM EDT [facility] Blood Whole blood specimen / Unknown 12/13/2022 7:53 AM EDT 12/13/2022 8:10 AM EDT Alvarez Us MD LAB POINT OF CARE TE ST DOCKED DEVICE UNSOLICITED RESULTS Performing Organization Address [facility] Co de Phone Number [facility] [address] [place] [phone] * PHOSPHORUS (12/13/2022 5:33 AM EDT) Phosphorus 2.7 2.5 - 4.8 mg/dL 12/13/2022 5:58 AM EDT LABORATORY [facility] Blood Venous blood specimen / Unknown Venipuncture / Unknown 12/13/2022 5:33 AM EDT 12/13/2022 5:36 AM EDT Ladan Alvarado PA-C LAB BLOOD ORDER LETHA LABORATORY [address] [address] * MAGNESIUM (12/13/2022 5:33 AM EDT) Magnesium 1.9 1.5 - 2.6 mg/dL 12/13/2022 5:58 AM EDT LABORATORY [facility] Blood Venous blood specimen / Unknown Venipuncture / Unknown 12/13/2022 5:33 AM EDT 12/13/2022 5:36 AM EDT Ladan Alvarado PA-C LAB BLOOD ORDER LETHA LABORATORY [address] [address] * (ABNORMAL) CBC (12/13/2022 5:33 AM EDT) WBC 5.77 4.00 - 10.80 K/uL 12/13/2022 5:41 AM EDT LABORATORY [facility] RBC 3.24 4.50 - 5.25 M/uL 12/13/2022 5:41 AM EDT LABORATORY [facility] HGB 10.4(L) 14.0 - 16.8 g/dL 12/13/2022 5:41 AM EDT LABORATORY [facility] HCT 31.6(L) 40.0 - 48.4 % 12/13/2022 5:41 AM EDT LABORATORY [facility] MCV 97.5 82.0 - 99.5 fL 12/13/2022 5:41 AM EDT LABORATORY [facility] MCH 32.1 27.0 - 34.0 pg 12/13/2022 5:41 AM EDT LABORATORY [facility] MCHC 32.9 32.0 - 36.0 g/dL 12/13/2022 5:41 AM EDT LABORATORY [facility] RDW 13.6 11.5 - 15.5 % 12/13/2022 5:41 AM EDT LABORATORY [facility] PLT 329 140 - 400 K/uL 12/13/2022 5:41 AM EDT LABORATORY [facility] MPV 8.7 6.6 - 11.1 fL 12/13/2022 5:41 AM EDT LABORATORY [facility] nRBCs 0 <=0 /100 WBCs 12/13/2022 5:41 AM EDT LABORATORY [facility] Blood Venous blood specimen / Unknown Venipuncture / Unknown 12/13/2022 5:33 AM EDT 12/13/2022 5:36 AM EDT Ladan Alvarado PA-C LAB BLOOD ORDER LETHA LABORATORY GL [address] [facility] [place] [address] * (ABNORMAL) COMPREHENSIVE METABOLIC PANEL (12/13/2022 5:33 AM EDT) BUN 31(H) 6 - 20 mg/dL 12/13/2022 5:58 AM EDT LAB[facility]ATORY [facility] Creatinine 1.2 0.6 - 1.2 mg/dL 12/13/2022 5:58 AM EDT LAB[facility]ATORY [facility] Estimated Glomerular Filtration Rate 82 >=60 mL/min 12/13/2022 5:58 AM EDT LAB[facility]ATORY [facility] Comment:eGFR is calculated b ased on the CKD-EPI 2020 equation Sodium 141 135 - 146 mmol/L 12/13/2022 5:58 AM EDT LAB[facility]ORY [facility] Potassium 4.2 3.5 - 5.1 mmol/L 12/13/2022 5:58 AM EDT LAB[facility] Chloride 110(H) 98 - 107 mmol/L 12/13/2022 5:58 AM EDT LAB[facility] CO2 26 22 - 32 mmol/L 12/13/2022 5:58 AM EDT LAB[facility] Anion Gap 5(L) 7 - 15 mmol/L 12/13/2022 5:58 AM EDT [facility] Glucose 121(H) 70 - 120 mg/dL 12/13/2022 5:58 AM EDT [facility] Albumin 3.1(L) 3.8 - 5.0 g/dL 12/13/2022 5:58 AM EDT [facility] AST 23 10 - 50 U/L 12/13/2022 5:58 AM EDT [facility] Alkaline Phosphatase 64 35 - 130 U/L 12/13/2022 5:58 AM EDT [facility] Bilirubin, Total <0.2 <=1.2 mg/dL 12/13/2022 5:58 AM EDT [facility] Calcium 8.5 8.4 - 10.2 mg/dL 12/13/2022 5:58 AM EDT [facility] Protein 6.3 6.0 - 8.3 g/dL 12/13/2022 5:58 AM EDT LABORATORY [facility] ALT 22 10 - 50 U/L 12/13/2022 5:58 AM EDT LABORATORY GL Blood Venous blood specimen / Unknown Venipuncture / Unknown 12/13/2022 5:33 AM EDT 12/13/2022 5:36 AM EDT Ladan Alvarado PA-C LAB BLOOD ORDER LETHA LABORATORY [address] [phone] * LACTATE (12/13/2022 5:33 AM EDT) [facility] Lactate 0.9 0.4 - 2.0 mmol/L 12/13/2022 5:52 AM EDT LABORATORY [facility] Blood Venous blood specimen / Unknown Venipuncture / Unknown 12/13/2022 5:33 AM EDT 12/13/2022 5:36 AM EDT Alvarez Us MD LAB BLOOD ORDERABLES Performing Organization Address [facility] Co de Phone Number LABORATORY [address] [address] * VANCOMYCIN RANDOM (12/13/2022 5:33 AM EDT) Pathologist [facility] Vancomycin Random 21.0 10.0 - 40.0 ug/mL 12/13/2022 6:29 AM EDT LABORATORY [facility] Blood Venous blood specimen / Unknown Venipuncture / Unknown 12/13/2022 5:33 AM EDT 12/13/2022 5:36 AM EDT Jimenez Wyatt [facility] LAB BLOOD ORDERABL ES Performing Organization Address [facility] Co de Phone Number LABORATORY [address] [phone] * (ABNORMAL) GLUCOSE METER, POINT OF CARE (12/12/2022 10:00 PM EDT) Glucose Meter 219(H) 70 - 120 mg/dL 12/12/2022 10:04 PM EDT [facility] Blood Whole blood specimen / Unknown 12/12/2022 10:00 PM EDT 12/12/2022 10:04 PM EDT Alvarez Us MD LAB POINT OF CARE TE ST DOCKED DEVICE UNSOLICITED RESULTS Performing Organization Address City/[facility]/ZIP Co de Phone Number [facility] [address] [place] [address] * (ABNORMAL) GLUCOSE METER, POINT OF CARE (12/12/2022 5:24 PM EDT) Glucose Meter 232(H) 70 - 120 mg/dL 12/12/2022 5:27 PM EDT [facility] Blood Whole blood specimen / Unknown 12/12/2022 5:24 PM EDT 12/12/2022 5:27 PM EDT Alvarez Us MD LAB POINT OF CARE TE ST DOCKED DEVICE UNSOLICITED RESULTS Performing Organization Address [facility] Co de Phone Number [facility] [address] [place] [address] * ECHO, COMPLETE (2D), TRANS-THORACIC (12/12/2022 1:44 PM EDT) LEFT VENTRICULAR EJECTION FRACTION 56 % [facility] 12/12/2022 1:09 PM EDT Ladan Alvarado PA-C ECHOCARDIOLOGY Performing Organization Address City/[facility]/ZIP Co de Phone Number [facility] * (ABNORMAL) GLUCOSE METER, POINT OF CARE (12/12/2022 11:23 AM EDT) Glucose Meter 205(H) 70 - 120 mg/dL 12/12/2022 11:30 AM EDT [facility] Blood Whole blood specimen / Unknown 12/12/2022 11:23 AM EDT 12/12/2022 11:30 AM EDT Alvarez Us MD LAB POINT OF CARE TE ST DOCKED DEVICE UNSOLICITED RESULTS Performing Organization Address [facility] Co de Phone Number [facility] [address] [place] [address] * (ABNORMAL) GLUCOSE METER, POINT OF CARE (12/12/2022 7:30 AM EDT) Glucose Meter 207(H) 70 - 120 mg/dL 12/12/2022 7:48 AM EDT [facility] Blood Whole blood specimen / Unknown 12/12/2022 7:30 AM EDT 12/12/2022 7:48 AM EDT Alvarez Us MD LAB POINT OF CARE TE ST DOCKED DEVICE UNSOLICITED RESULTS Performing Organization Address [facility] de Phone Number [facility] [address] [place] [address] * CRP (INFLAMMATORY MARKER) (12/12/2022 5:04 AM EDT) CRP (Inflammatory Marker) <3 <=5 mg/L 12/12/2022 2:28 PM EDT LABORATORY [facility] Blood Venous blood specimen / Unknown Venipuncture / Unknown 12/12/2022 5:04 AM EDT 12/12/2022 5:08 AM EDT Alvarez Us MD LAB BLOOD ORDERABLES Performing Organization Address City/[facility] Co de Phone Number LABORATORY GL [address] [place], [place] [phone] * (ABNORMAL) BASIC METABOLIC PANEL (12/12/2022 5:04 AM EDT) BUN 36(H) 6 - 20 mg/dL 12/12/2022 5:33 AM EDT LABORATORY GL Creatinine 1.0 0.6 - 1.2 mg/dL 12/12/2022 5:33 AM EDT LABORATORY GL Estimated Glomerular Filtration Rate >90 >=60 mL/min 12/12/2022 5:33 AM EDT [facility] Comment:eGFR is calculated b ased on the CKD-EPI 2020 equation Sodium 138 135 - 146 mmol/L 12/12/2022 5:33 AM EDT LAB[facility] Potassium 4.0 3.5 - 5.1 mmol/L 12/12/2022 5:33 AM EDT [facility] Chloride 107 98 - 107 mmol/L 12/12/2022 5:33 AM EDT [facility] CO2 25 22 - 32 mmol/L 12/12/2022 5:33 AM EDT [facility] Anion Gap 6(L) 7 - 15 mmol/L 12/12/2022 5:33 AM EDT LAB[facility]ORY [facility] Glucose 192(H) 70 - 120 mg/dL 12/12/2022 5:33 AM EDT [facility] Calcium 8.3(L) 8.4 - 10.2 mg/dL 12/12/2022 5:33 AM EDT LAB[facility] GL Blood Venous blood specimen / Unknown Venipuncture / Unknown 12/12/2022 5:04 AM EDT 12/12/2022 5:08 AM EDT Calderon Calabrese PA-C LAB BLOOD ORDERABLES LAB[facility]ATORY [address] [id number] * (ABNORMAL) CBC (12/12/2022 5:04 AM EDT) WBC 5.58 4.00 - 10.80 K/uL 12/12/2022 5:13 AM EDT LABORATORY GL RBC 3.13 4.50 - 5.25 M/uL 12/12/2022 5:13 AM EDT LABORATORY GL HGB 10.0(L) 14.0 - 16.8 g/dL 12/12/2022 5:13 AM EDT [facility] HCT 30.2(L) 40.0 - 48.4 % 12/12/2022 5:13 AM EDT LABORATORY GL MCV 96.5 82.0 - 99.5 fL 12/12/2022 5:13 AM EDT [facility] MCH 31.9 27.0 - 34.0 pg 12/12/2022 5:13 AM EDT LABORATORY [facility] MCHC 33.1 32.0 - 36.0 g/dL 12/12/2022 5:13 AM EDT LABORATORY [facility] RDW 13.3 11.5 - 15.5 % 12/12/2022 5:13 AM EDT LABORATORY [facility] PLT 311 140 - 400 K/uL 12/12/2022 5:13 AM EDT LABORATORY [facility] MPV 8.8 6.6 - 11.1 fL 12/12/2022 5:13 AM EDT LABORATORY [facility] nRBCs 0 <=0 /100 WBCs 12/12/2022 5:13 AM EDT LABORATORY [facility] Blood Venous blood specimen / Unknown Venipuncture / Unknown 12/12/2022 5:04 AM EDT 12/12/2022 5:08 AM EDT Calderon Calabrese PA-C LAB BLOOD ORDERABLES LABORATORY [address] [id number] * GLUCOSE METER, POINT OF CARE (12/11/2022 9:28 PM EDT) Glucose Meter 99 70 - 120 mg/dL 12/11/2022 9:34 PM EDT [facility] Blood Whole blood specimen / Unknown 12/11/2022 9:28 PM EDT 12/11/2022 9:34 PM EDT Marlon Banda MD LAB POINT OF CARE TE ST DOCKED DEVICE UNSOLICITED RESULTS [facility] [address] [place] [id number] * LACTATE (12/11/2022 6:12 PM EDT) Lactate 0.6 0.4 - 2.0 mmol/L 12/11/2022 6:28 PM EDT LABORATORY [facility] Blood Venous blood specimen / Unknown Venipuncture / Unknown 12/11/2022 6:12 PM EDT 12/11/2022 6:14 PM EDT Alberto Ryan DO LAB BLOOD ORDERABLES Performing Organization Address City/[facility]/ZIP Co de Phone Number LABORATORY [address] [address] * (ABNORMAL) TOXICOLOGY, URINESCREEN W/O CONFIRMATION (12/11/2022 5:42 PM EDT) [facility] Amphetamine Positive(A) Negative 12/11/2022 8:44 PM EDT LABORATORY [facility] Benzodiazepines Negative Negative 8:44 PM EDT LABORATORY GL Cannabinoids Negative Negative 12/11/2022 8:44 PM EDT LABORATORY GL Cocaine Metabolite Negative Negative 2022 8:44 PM EDT LABORATORY GL Fentanyl Positive(A) Negative 12/11/2022 8:44 PM EDT LABORATORY GL Hydrocodone / Hydromorphone Negative Negative 12/11/2022 8:44 PM EDT LABORATORY GL Methadone Metabolite Positive(A) Negative 12/11/2022 8:44 PM EDT LABORATORY GL Morphine / Codeine Negative Negative 2022 8:44 PM EDT LABORATORY GL Oxycodone / Oxymorphone Negative Negative 12/11/2022 8:44 PM EDT LABORATORY [facility] Urine Non-blood Collection / Unknown 12/11/2022 5:42 PM EDT 12/11/2022 5:49 PM EDT Narrative LABORATORY GL - 12/11/2022 8:44 PM EDT Cutoff Concentrations: Drug Level Amphetamines 500 ng/mL Benzodiazepines 100 ng/mL Cannabinoids 50 ng/mL Cocaine Metabolite 150 ng/mL Fentanyl 1 ng/mL Hydrocodone / Hydromorphone 300 ng/mL Methadone Metabolite 100 ng/mL Morphine / Codeine 300 ng/mL Oxycodone / Oxymorphone 100 ng/mL Screening results are presumptive and can only be used for medical purposes. Confirmatory testing is available upon request. Calderon Calabrese PA-C LAB URINE ORDERABLES Performing Organization Address City/[facility]/ZIP Co de Phone Number LABORATORY [address] [address] * (ABNORMAL) MICROSCOPIC EXAM, URINE (12/11/2022 5:42 PM EDT) RBC, Urine 0-2 0 - 2 /HPF 12/11/2022 6:27 PM EDT LABORATORY [facility] WBC, Urine 0-2 0 - 2 /HPF 12/11/2022 6:27 PM EDT LABORATORY [facility] Bacteria, Urine 51-100(A) 0 - 25 /HPF 12/11/2022 6:27 PM EDT LABORATORY [facility] Urine Non-blood Collection / Unknown 12/11/2022 5:42 PM EDT 12/11/2022 5:49 PM EDT Alberto Ryan DO LAB URINE ORDERABLES LABORATORY [address] [address] * (ABNORMAL) URINALYSIS, REFLEX TO MICROSCOPIC (12/11/2022 5:42 PM EDT) Color, Urine Yellow Light Yellow, Yellow, Dark Yellow 12/11/2022 6:11 PM EDT LABORATORY [facility] Clarity, Urine Clear Clear 12/11/2022 6:11 PM EDT LABORATORY [facility] Glucose, Urine >=1000(A) Negative mg/dL 12/11/2022 6:11 PM EDT LABORATORY [facility] Bilirubin, Urine Negative Negative 12/11/2022 6:11 PM EDT LABORATORY GL Ketone, Urine Negative Negative mg/dL 12/11/2022 6:11 PM EDT LABORATORY GL Specific [place], Urine 1.028 1.003 - 1.030 12/11/2022 6:11 PM EDT LABORATORY GL Blood, Urine Trace(A) Negative 12/11/2022 6:11 PM EDT LABORATORY GL pH, Urine 6.0 5.0 - 7.5 Units 12/11/2022 6:11 PM EDT LABORATORY GL Protein, Urine Trace(A) Negative mg/dL 12/11/2022 6:11 PM EDT LABORATORY [facility] Urobilinogen, Urine 0.2 0.2, 1.0 mg/dL 12/11/2022 6:11 PM EDT LABORATORY [facility] Nitrite, Urine Negative Negative 12/11/2022 6:11 PM EDT LABORATORY [facility] Esterase, Urine Negative Negative 12/11/2022 6:11 PM EDT LABORATORY [facility] Urine Non-blood Collection / Unknown 12/11/2022 5:42 PM EDT 12/11/2022 5:49 PM EDT Alberto Ryan DO LAB URINE ORDERABLES LABORATORY [facility] [address] [place] [address] * XR HAND 3 OR MORE VIEWS (12/11/2022 4:55 PM EDT) Anatomical Region Laterality Modality Upper Extremity, Hand Digital Ra diography 12/11/2022 5:08 PM EDT Impressions 12/11/2022 5:21 PM EDT IMPRESSION: Fifth PIP joint septic arthritis and osteomyelitis with markedly increased bone destruction. THIS DOCUMENT HAS BEEN ELECTRONICALLY SIGNED BY WILMA CRUMP MD Narrative 12/11/2022 5:21 PM EDT PROCEDURE INFORMATION: Exam: XR Right Hand Exam date and time: 12/11/2022 5:08 PM Age: 37 years old Clinical indication: Other: HX right 5th digit osteomyelitis. Evaluate for changes TECHNIQUE: Imaging protocol: Radiologic exam of the right hand. Views: 3 or more views. COMPARISON: MRI HAND RIGHT W WO CONTRAST 10/31/2022 9:31 AM FINDINGS: Bones/joints: There is [id number] destruction of the proximal and middle phalanges of the little finger and the proximal interphalangeal joint consistent with septic arthritis and osteomyelitis, with markedly increased destruction when compared to the 10/31/2022 right hand MRI. DIP joint is unremarkable. Other bones and joints of the hand are normal. Soft tissues: No soft tissue swelling. Procedure Note Wilma Crump MD - 12/11/2022 PROCEDURE INFORMATION: Exam: XR Right Hand Exam date and time: 12/11/2022 5:08 PM Age: 37 years old Clinical indication: Other: HX right 5th digit osteomyelitis. Evaluate for changes TECHNIQUE: Imaging protocol: Radiologic exam of the right hand. Views: 3 or more views. COMPARISON: MRI HAND RIGHT W WO CONTRAST 10/31/2022 9:31 AM FINDINGS: Bones/joints: There is [id number] destruction of the proximal and middle phalanges of the little finger and the proximal interphalangealjoint consistent with septic arthritis and osteomyelitis, with markedlyincreased destruction when compared to the 10/31/2022 right hand MRI. DIP joint is unremarkable. Other bones and joints of the hand are normal. Soft tissues: No soft tissue swelling. IMPRESSION IMPRESSION: Fifth PIP joint septic arthritis and osteomyelitis with markedly increasedbone destruction. THIS DOCUMENT HAS BEEN ELECTRONICALLY SIGNED BY WILMA CRUMP MD Alberto Ryan DO RADIOLOGY (RAD GENER AL) * (ABNORMAL) BLOOD GAS, VENOUS (12/11/2022 4:27 PM EDT) Temperature 37.0 C 12/11/2022 4:47 PM EDT LABORATORY [facility] pH, Venous 7.247(L) 7.320 - 7.430 units 12/11/2022 4:47 PM EDT LABORATORY [facility] pCO2, Venous 72.6(H) 40.0 - 60.0 mmHg 12/11/2022 4:47 PM EDT LABORATORY [facility] pO2, Venous 20.2(L) 25.0 - 50.0 mmHg 12/11/2022 4:47 PM EDT LABORATORY [facility] Base Excess, Venous 1.7 -2.0 - 2.0 mmol/L 12/11/2022 4:47 PM EDT LABORATORY [facility] Hemoglobin, Whole Blood 12.6(L) 14.0 - 16.8 g/dL 12/11/2022 4:47 PM EDT LABORATORY [facility] Oxyhemoglobin, Venous 25.9(L) 40.0 - 85.0 % total Hgb 12/11/2022 4:47 PM EDT LABORATORY [facility] Carboxyhemoglobi n, Whole Blood 5.3(H) <=1.5 % total Hgb 12/11/2022 4:47 PM EDT LABORATORY [facility] Comment:Smokers: 0-9.0 % Methemoglobin, Whole Blood 1.2 <=1.5 % total Hgb 12/11/2022 4:47 PM EDT LABORATORY [facility] Reduced Hemoglobin, Venous 67.6 % total Hgb 12/11/2022 4:47 PM EDT LABORATORY [facility] O2 Content, Venous 4.6(L) 7.0 - 18.0 %vol 12/11/2022 4:47 PM EDT LABORATORY [facility] Bicarbonate, Whole Blood 30.5 23.0 - 31.0 mmol/L 12/11/2022 4:47 PM EDT LABORATORY [facility] Blood Venous blood specimen / Unknown Venipuncture / Unknown 12/11/2022 4:27 PM EDT 12/11/2022 4:40 PM EDT Alberto Jose [employer] LAB BLOOD ORDERABLES Performing Organization Address City/[facility]/ZIP Co de Phone Number LABORATORY [address] [address] * PHOSPHORUS (12/11/2022 4:17 PM EDT) Phosphorus 4.7 2.5 - 4.8 mg/dL 12/11/2022 4:55 PM EDT LABORATORY [facility] Blood Venous blood specimen / Unknown Venipuncture / Unknown 12/11/2022 4:17 PM EDT 12/11/2022 4:23 PM EDT Alberto Jose [employer] LAB BLOOD ORDERABLES Performing Organization Address City/[facility]/ZIP Co de Phone Number LABORATORY [address] [address] * MAGNESIUM (12/11/2022 4:17 PM EDT) Magnesium 2.3 1.5 - 2.6 mg/dL 12/11/2022 4:55 PM EDT LABORATORY [facility] Blood Venous blood specimen / Unknown Venipuncture / Unknown 12/11/2022 4:17 PM EDT 12/11/2022 4:23 PM EDT Alberto Jose Palringo LAB BLOOD ORDERABLES Performing Organization Address City/[facility]/ZIP Co de Phone Number LABORATORY [address] [phone] * TROPONIN T, HIGH SENSITIVITY (12/11/2022 4:17 PM EDT) [facility] Troponin T, High Sensitivity 21 <=22 ng/L 12/11/2022 4:44 PM EDT LABORATORY [facility] Blood Venous blood specimen / Unknown Venipuncture / Unknown 12/11/2022 4:17 PM EDT 12/11/2022 4:23 PM EDT Dot Koenig DO LAB BLOOD ORDE RABLES LABORATORY [address] [phone] * (ABNORMAL) LACTATE (12/11/2022 4:16 PM EDT) [facility] Lactate 2.7(H) 0.4 - 2.0 mmol/L 12/11/2022 4:41 PM EDT LABORATORY [facility] Blood Venous blood specimen / Unknown 12/11/2022 4:16 PM EDT 12/11/2022 4:23 PM EDT Alberto Ryan DO LAB BLOOD ORDERABLES Performing Organization Address City/[facility]/ZIP Co de Phone Number LABORATORY [address] [address] * EXTRA HOANG TOP (12/11/2022 4:16 PM EDT) Blood Venous blood specimen / Unknown 12/11/2022 4:16 PM EDT 12/11/2022 4:23 PM EDT Alberto Lamark DO LAB BLOOD ORDERABLES Performing Organization Address [facility]/ZIP Co de Phone Number LABORATORY [address] [address] * PROCALCITONIN (12/11/2022 3:39 PM EDT) [facility] Procalcitonin 0.07 <0.10 ng/mL 12/11/2022 4:42 PM EDT LABORATORY [facility] Blood Venous blood specimen / Unknown Venipuncture / Unknown 12/11/2022 3:39 PM EDT 12/11/2022 3:49 PM EDT [facility] LABORATORY GL - 12/11/2022 4:42 PM EDT Less than 0.5 ng/mL: Low risk for progression to sepsis. Review patients condition for localized infections. 0.5 to 2.0 ng/mL: Intermediate risk for progresion to sepsis. Review underlying conditions. Recommend repeat PCT after 6 hours has elapsed. Greater than 2.0 ng/mL: high risk for progression to sepsis unless other causes are known. Alberto Ryan DO LAB BLOOD ORDERABLES LABORATORY [address] [address] * (ABNORMAL) DIFFERENTIAL, AUTOMATED (12/11/2022 3:39 PM EDT) WBC 8.00 4.00 - 10.80 K/uL 12/11/2022 4:00 PM EDT LABORATORY GL Neutrophils % 45.0 40.0 - 75.0 % 12/11/2022 4:00 PM EDT LABORATORY [facility] Lymphocytes % 49.3(H) 18.0 - 42.0 % 12/11/2022 4:00 PM EDT LABORATORY GL Monocytes % 4.4 1.0 - 11.0 % 12/11/2022 4:00 PM EDT LABORATORY [facility] Eosinophils % 0.4 0.0 - 6.0 % 12/11/2022 4:00 PM EDT LABORATORY GL Basophils % 0.8 0.0 - 2.0 % 12/11/2022 4:00 PM EDT LABORATORY GL Immature Granulocytes % 0.1 0.0 - 2.0 % 12/11/2022 4:00 PM EDT LABORATORY GL Absolute Neutrophils 3.61 1.80 - 7.70 K/uL 12/11/2022 4:00 PM EDT LABORATORY GL Absolute Lymphocytes 3.94 1.00 - 4.80 K/ul 12/11/2022 4:00 PM EDT LABORATORY GL Absolute Monocytes 0.35 0.00 - 1.10 K/uL 12/11/2022 4:00 PM EDT LABORATORY [facility] Absolute Eosinophils 0.03 0.00 - 0.70 K/uL 12/11/2022 4:00 PM EDT LABORATORY [facility] Absolute Basophils 0.06 0.00 - 0.20 K/uL 12/11/2022 4:00 PM EDT LABORATORY [facility] Absolute Immature Granulocytes 0.01 0.00 - 0.20 K/uL 12/11/2022 4:00 PM EDT LABORATORY [facility] Blood Venous blood specimen / Unknown Venipuncture / Unknown 12/11/2022 3:39 PM EDT 12/11/2022 3:49 PM EDT Dot Koenig DO LAB BLOOD ORDHerbie CHOWDHURY LABORATORY [address] [address] * (ABNORMAL) CBC (12/11/2022 3:39 PM EDT) WBC 8.00 4.00 - 10.80 K/uL 12/11/2022 4:00 PM EDT LABORATORY [facility] RBC 3.77 4.50 - 5.25 M/uL 12/11/2022 4:00 PM EDT LABORATORY [facility] HGB 12.0(L) 14.0 - 16.8 g/dL 12/11/2022 4:00 PM EDT LABORATORY [facility] HCT 35.9(L) 40.0 - 48.4 % 12/11/2022 4:00 PM EDT LABORATORY [facility] MCV 95.2 82.0 - 99.5 fL 12/11/2022 4:00 PM EDT LABORATORY [facility] MCH 31.8 27.0 - 34.0 pg 12/11/2022 4:00 PM EDT LABORATORY [facility] MCHC 33.4 32.0 - 36.0 g/dL 12/11/2022 4:00 PM EDT LABORATORY [facility] RDW 13.3 11.5 - 15.5 % 12/11/2022 4:00 PM EDT LABORATORY [facility] PLT 425(H) 140 - 400 K/uL 12/11/2022 4:00 PM EDT LABORATORY [facility] MPV 9.0 6.6 - 11.1 fL 12/11/2022 4:00 PM EDT LABORATORY [facility] nRBCs 0 <=0 /100 WBCs 12/11/2022 4:00 PM EDT LABORATORY [facility] Blood Venous blood specimen / Unknown Venipuncture / Unknown 12/11/2022 3:39 PM EDT 12/11/2022 3:49 PM EDT Dot Koenig LAB BLOOD ORDHerbie CHOWDHURY LABORATORY [address] [id number] * EXTRA LIGHT BLUE TOP (12/11/2022 3:39 PM EDT) Blood Venous blood specimen / Unknown Venipuncture / Unknown 12/11/2022 3:39 PM EDT 12/11/2022 3:49 PM EDT Dot Koenig [facility] BLOOD ORDHerbie CHOWDHURY Performing Organization Address City/[facility]/ZIP Co de Phone Number LABORATORY [address] [phone] * TROPONIN T, HIGH SENSITIVITY (12/11/2022 3:39 PM EDT) Pathologist [facility] Troponin T, High Sensitivity 21 <=22 ng/L 12/11/2022 4:22 PM EDT LABORATORY [facility] Blood Venous blood specimen / Unknown Venipuncture / Unknown 12/11/2022 3:39 PM EDT 12/11/2022 3:49 PM EDT Dot Koenig LAB BLOOD ORDHerbie CHOWDHURY Performing Organization Address City/[facility]/ZIP Co de Phone Number LABORATORY [address] [address] * (ABNORMAL) COMPREHENSIVE METABOLIC PANEL (12/11/2022 3:39 PM EDT) BUN 43(H) 6 - 20 mg/dL 12/11/2022 4:21 PM EDT LABORATORY [facility] Creatinine 1.6(H) 0.6 - 1.2 mg/dL 12/11/2022 4:21 PM EDT LABORATORY [facility] Estimated Glomerular Filtration Rate 59(L) >=60 mL/min 12/11/2022 4:21 PM EDT LABORATORY [facility] Comment:eGFR is calculated b ased on the CKD-EPI 2020 equation Sodium 138 135 - 146 mmol/L 12/11/2022 4:21 PM EDT LABORATORY [facility] Potassium 3.9 3.5 - 5.1 mmol/L 12/11/2022 4:21 PM EDT LABORATORY [facility] Chloride 99 98 - 107 mmol/L 12/11/2022 4:21 PM EDT LABORATORY [facility] CO2 28 22 - 32 mmol/L 12/11/2022 4:21 PM EDT LABORATORY [facility] Anion Gap 11 7 - 15 mmol/L 12/11/2022 4:21 PM EDT LABORATORY [facility] Glucose 114 70 - 120 mg/dL 12/11/2022 4:21 PM EDT LABORATORY [facility] Albumin 4.5 3.8 - 5.0 g/dL 12/11/2022 4:21 PM EDT LABORATORY [facility] AST 21 10 - 50 U/L 12/11/2022 4:21 PM EDT LABORATORY [facility] Alkaline Phosphatase 86 35 - 130 U/L 12/11/2022 4:21 PM EDT LABORATORY [facility] Bilirubin, Total 0.2 <=1.2 mg/dL 12/11/2022 4:21 PM EDT LABORATORY [facility] Calcium 9.9 8.4 - 10.2 mg/dL 12/11/2022 4:21 PM EDT LABORATORY [facility] Protein 8.6(H) 6.0 - 8.3 g/dL 12/11/2022 4:21 PM EDT LABORATORY [facility] ALT 27 10 - 50 U/L 12/11/2022 4:21 PM EDT LABORATORY [facility] Blood Venous blood specimen / Unknown Venipuncture / Unknown 12/11/2022 3:39 PM EDT 12/11/2022 3:49 PM EDT Dot Koenig DO LAB BLOOD JOSE A [facility] [address] [place] [address] * XR CHEST 2 VIEWS (12/11/2022 3:11 PM EDT) Anatomical Region Laterality Modality Chest Digital Radiogra phy 12/11/2022 3:22 PM EDT Impressions 12/11/2022 3:16 PM EDT IMPRESSION: No acute findings. Linear subsegmental atelectasis in right mid lung zone. Mild scarring in left lung. THIS DOCUMENT HAS BEEN ELECTRONICALLY SIGNED BY WILMA CRUMP MD Narrative 12/11/2022 3:16 PM EDT PROCEDURE INFORMATION: Exam: XR Chest Exam date and time: 12/11/2022 3:22 PM Age: 37 years old Clinical indication: Other: Chest pain, near syncopal episodes while standing. PT had trouble standing during x-rays and needed to be seated. TECHNIQUE: Imaging protocol: Radiologic exam of the chest. Views: 2 views. COMPARISON: DX XR CHEST 1 VIEW 10/27/2022 6:05 PM FINDINGS: Lungs: Linear subsegmental atelectasis in right mid lung zone. Mild scarring in left lung. No consolidation, mass or pulmonary vascular congestion. Pleural spaces: Unremarkable. No pleural effusion. No pneumothorax. Heart/Mediastinum: Unremarkable. No cardiomegaly. Bones/joints: Unremarkable. Procedure Note Wilma Crump MD - 12/11/2022 PROCEDURE INFORMATION: Exam: XR Chest Exam date and time: 12/11/2022 3:22 PM Age: 37 years old Clinical indication: Other: Chest pain, near syncopal episodes whilestanding. PT had trouble standing during x-rays and needed to be seated. TECHNIQUE: Imaging protocol: Radiologic exam of the chest. Views: 2 views. COMPARISON: DX XR CHEST 1 VIEW 10/27/2022 6:05 PM FINDINGS: Lungs: Linear subsegmental atelectasis in right mid lung zone. Mildscarring in left lung. No consolidation, mass or pulmonary vascular congestion. Pleural spaces: Unremarkable. No pleural effusion. No pneumothorax. Heart/Mediastinum: Unremarkable. No cardiomegaly. Bones/joints: Unremarkable. IMPRESSION IMPRESSION: No acute findings. Linear subsegmental atelectasis in right mid lung zone. Mild scarring in left lung. THIS DOCUMENT HAS BEEN ELECTRONICALLY SIGNED BY WILMA CRUMP MD Dot Koenig DO RADIOLOGY ([facility]) * EKG (12/11/2022 2:55 PM EDT) 12/11/2022 2:55 PM EDT Procedure Note Haroon Rollins DO - 12/11/2022 2:55 PM EDT REASON FOR STUDY: SYNCOPE CONCLUSIONS: Sinus tachycardia Right atrial enlargement Rightward axis Abnormal ECG When compared with ECG of 27-OCT-2022 17:32, No significant change was found Ventricular Rate: 101 Atrial Rate: 101 MO Interval: 120 QRS Duration: 88 QT/QTc: 346/448 ms P-R-T [place]: 80 : 92 : 60 degrees Dot Koenig DO EKG [facility] CARDIOLOGY * (ABNORMAL) GLUCOSE METER, POINT OF CARE (12/11/2022 2:50 PM EDT) [facility] Signature Glucose Meter 177(H) 70 - 120 mg/dL 12/11/2022 2:51 PM EDT [facility] Blood Whole blood specimen / Unknown 12/11/2022 2:50 PM EDT 12/11/2022 2:51 PM EDT No Physician Data Unknown LAB POINT OF C ARE TEST DOCKED DEVICE UNSOLICITED RESULTS [facility] [address] [place] [address] documented in this encounter Visit Diagnoses Diagnosis Chronic osteomyelitis of right hand including fingers (HCC)- Primary Chest pain Chest pain, unspecified Orthostatic hypotension Osteomyelitis of finger of right hand (HCC) Unspecified osteomyelitis, hand Syncope, unspecified syncope type Type 1 diabetes mellitus with hemoglobin A1c goal of less than 8.0% (HCC) Bipolar 1 disorder, depressed (HCC) Bipolar I disorder, most recent episode (or current) depressed, unspecified Open wound of finger of right hand, subsequent encounter Type 1 diabetes mellitus with hemoglobin A1c goal of less than 8.0% (HCC) Severe protein-calorie malnutrition (HCC) Other severe protein-calorie malnutrition Osteomyelitis (HCC) Unspecified osteomyelitis, site unspecified Opioid use disorder, severe, on maintenance therapy (HCC) Hypothyroidism Unspecified hypothyroidism Bipolar 1 disorder, depressed (HCC) Bipolar I disorder, most recent episode (or current) depressed, unspecified ANTOLIN (acute kidney injury) (HCC) Acute kidney failure, unspecified Dehydration Orthostatic hypotension Methamphetamine abuse (HCC) Nondependent amphetamine or related acting sympathomimetic abuse, unspecified Open wound of finger of right hand Syncope Syncope and collapse documented in this encounter Administered Medications Inactive Administered Medications - up to 3 most recent administrations Medication Order MAR Action Action Date Dose Rate Site dextrose 50 % inj 25 mL 25 mL, IV Push, PRN Hypoglycemia, Other, For blood glucose 54 - 69 mg/dL or 70 - 100 mg/dL with symptoms AND patient is unresponsive, NPO, OR unable to swallow, Starting on Sun12/11/22 at 2012, Until Sun12/14/22 at 2043, Administer IV. Recheck blood glucose after 15 minutes. Notify provider. dextrose 50 % inj 50 mL 50 mL, IV Push, PRN Hypoglycemia, Other, For blood glucose below 54 mg/dL AND patient unresponsive, NPO, OR unable to swallow, Starting on Sun12/11/22 at 2012, Until Sun12/14/22 at 2043, Administer IV. Recheck blood glucose in 15 minutes. Notify provider. Drug Level Check - Vancomycin Random ONCE - TIMED LAB, 1 dose, First dose on Sun12/15/22 at 0600, STAT, [place] as Order Check Addressed once lab level is drawn. If antibiotic time changes, please contact the Pharmacy to adjust Lab and Drug Level Check times. Gabapentin (Neurontin) cap 300 mg 300 mg, Oral, TID(AM/NOON/HS), First dose on Sun12/11/22 at 2200, Until Discontinued Given 12/14/2022 12:29 PM EDT 300 mg Given 12/14/2022 5:41 AM EDT 300 mg Given 12/13/2022 9:08 PM EDT 300 mg glucagon (Glucagen) inj 1 mg 1 mg, Intramuscular, PRN Hypoglycemia, Other, If patient is unresponsive, or NPO and has no IV access, Starting on Sun12/11/22 at 2012, Until Sun12/14/22 at 2043, NPO and no IV access with either [...] patient alert WITH difficulty chewing/swallowing, Starting on Sun12/11/22 at 2012, Until Sun12/14/22 at 2043, Administer gel. Recheck blood glucose after 15 minutes. Notify provider. 37.5 gram tube = 15 grams glucose = 1 each Glucose (Glutose 15) 40 % gel 30 g of glucose 30 g of glucose, Oral, PRN Hypoglycemia (low sugar), Other, For blood glucose below 54 mg/dL AND patient alert WITH difficulty chewing/swallowing, Starting on Sun12/11/22 at 2012, Until Sun12/14/22 at 2043, Administer gel. Recheck blood glucose after 15 minutes. Notify provider. 37.5 gram tube = 15 grams glucose = 1 each glucose chew tab 16 g 16 g, Oral, PRN Hypoglycemia, Other, For blood glucose 54 - 69 mg/dL or 70 - 100 mg/dL with symptoms and patient alert without difficulty chewing/swallowing., Starting on Sun12/11/22 at 2012, Until Sun12/14/22 at 2043 hEParin inj 5,000 Units 5,000 Units, Subcutaneous, Q12H, First dose on Sun12/11/22 at 2100, Until Discontinued Given 12/14/2022 9:11 AM EDT 5,000 Units Abdomen Right Upper Given 12/13/2022 9:12 PM EDT 5,000 Units A bdomen Left Lower Given 12/13/2022 8:34 AM EDT 5,000 Units A bdomen Left Lower insulin aspart (NovoLOG) inj Subcutaneous, W/MEALS AND HS, First dose on Sun12/11/22 at 2200, Until Discontinued, MEDIUM DOSE (Usual starting dose): [...] insulin dose and call covering provider. Given 12/14/2022 12:29 PM EDT 2 Units Arm Right Upper Given 12/13/2022 10:26 PM EDT 2 Units A rm Right Upper Given 12/13/2022 5:21 PM EDT 4 Units Ar m Left Upper Insulin Glargine (Lantus) inj 12 Units 12 Units, Subcutaneous, PMINSULIN, First dose on Sun12/12/22 at 1700, Until Discontinued, Given 12/13/2022 5:21 PM EDT 12 Units Arm Left Upper Given 12/12/2022 5:47 PM EDT 12 Units Ar m Left Upper levothyroxine (Levoxyl) tab 88 mcg 88 mcg, Oral, [id number], First dose on Sun12/12/22 at 0630, Until Discontinued Given 12/14/2022 5:41 AM EDT 88 mcg Given 12/13/2022 6:33 AM EDT 88 mcg Given 12/12/2022 6:38 AM EDT 88 mcg LiquaCel 30 mL, Oral, DAILY(1900), First dose on Sun12/13/22 at 1900, Until Discontinued Given 12/13/2022 5:22 PM EDT 30 mL methADONE CONCentrated 10 mg/mL oral conc 107 mg 107 mg, Oral, Daily(AM), First dose on Sun12/12/22 at 0900, Until Discontinued Given 12/14/2022 9:10 AM EDT 107 mg Given 12/13/2022 8:33 AM EDT 107 mg Given 12/12/2022 8:59 AM EDT 107 mg midodrine (Proamatine) tab 5 mg 5 mg, Oral, TID(AM/NOON/HS), First dose on Sun12/12/22 at 1530, Until Discontinued Given 12/14/2022 5:41 AM EDT 5 mg Given 12/13/2022 9:08 PM EDT 5 mg Given 12/13/2022 12:28 PM EDT 5 mg midodrine HCl (Proamatine) tab 10 mg 10 mg, Oral, TID(AM/NOON/HS), First dose (after last modification) on Sun12/14/22 at 1200, Until Discontinued Given 12/14/2022 12:29 PM EDT 10 mg Mirtazapine (Remeron) tab 15 mg 15 mg, Oral, HS, First dose on Sun12/11/22 at 2200, Until Discontinued Given 12/13/2022 9:09 PM EDT 15 mg Given 12/12/2022 10:21 PM EDT 15 mg Given 12/11/2022 9:44 PM EDT 15 mg NSS 0.9% 1,000 mL bolus infusion Intravenous, at 1,000 mL/hr Administer over 60 Minutes, Wide open, This infusion may be completed in less than 1 hour, since it will be a wide open rate, ONCE, 1 dose, On Sun12/11/22 at 1700 New Bag 12/11/2022 4:28 PM EDT 1,000 mL 1000 mL/hr NSS 0.9% 1,000 mL bolus infusion Intravenous, at 1,000 mL/hr Administer over 60 Minutes, Wide open, This infusion may be completed in less than 1 hour, since it will be a wide open rate, ONCE, 1 dose, On Sun12/11/22 at 1830 New Bag 12/11/2022 5:57 PM EDT 1,000 mL 1000 mL/hr NSS infusion Intravenous, at 100 mL/hr, CONTINUOUS, Starting on Sun12/11/22 at 2045, Until Sun12/14/22 at 0929 New Bag 12/14/2022 7:39 AM EDT 100 mL/hr Rate Verify 12/14/2022 6:09 AM EDT 100 mL/hr New Bag 12/13/2022 9:15 PM EDT 100 mL/hr Piperacillin-Tazobactam (Zosyn) 4.5 g in 100 mL NSS ivpb (FOUR hour infusion) IV Piggyback, 4.5 g, Q8HNOW, 15 doses, First dose on Sun12/12/22 at 0845, Last dose on 12/17/22 at 0045, Administer over 4 Hours, at 25 mL/hr New Bag 12/14/2022 7:57 AM EDT 4.5 g 25 mL/hr New Bag 12/14/2022 12:20 AM EDT 4.5 g 25 mL/hr New 12/13/2022 4:13 PM EDT 4.5 g 25 mL/hr Piperacillin-Tazobactam (Zosyn) 4.5 g in 100 mL NSS ivpb (HALF hour infusion) IV Piggyback, 4.5 g, ONCE, 1 dose, On Sun12/11/22 at 1715, Administer over 30 Minutes New 12/11/2022 4:59 PM EDT 4.5 g 200 mL/hr QUEtiapine (SEROquel) tab 200 mg 200 mg, Oral, HS, First dose on Sun12/11/22 at 2200, Until Discontinued Given 12/13/2022 9:08 PM EDT 200 mg Given 12/12/2022 10:17 PM EDT 200 mg Given 12/11/2022 9:44 PM EDT 200 mg sulfamethoxazole-trimethoprim DS (Bactrim DS) 800-160 MG 1 Tablet 1 Tablet, Oral, Q12H, First dose on Sun12/11/22 at 2100, Last dose on Sun12/16/22 at 0900, For 5 days Given 12/11/2022 9:44 PM EDT 1 Tablet Vancomycin (Vancocin) 1500 mg in NSS 250 mL ivpb LOCKED DOSE 1,500 mg, IV Piggyback, ONCE, 1 dose, On Sun12/11/22 at 1730 12/11/2022 5:45 PM EDT 1,500 mg 183.33 mL/hr vancomycin (Vancocin) 500 mg in NSS 100 mL ivpb 500 mg, IV Piggyback, [id number], First dose (after last modification) on Sun12/13/22 at 0915, Until Discontinued New 12/14/2022 9:16 AM EDT 500 mg 110 mL /hr 12/13/2022 9:22 PM EDT 500 mg 110 mL/hr 12/13/2022 8:33 AM EDT 500 mg 110 mL/hr vancomycin (Vancocin) 750 mg in NSS 100 mL ivpb 750 mg, IV Piggyback, [id number], First dose on Sun12/12/22 at 0915, Until Discontinued New 12/12/2022 8:55 PM EDT 750 mg 110 mL/hr New 12/12/2022 9:30 AM EDT 750 mg 110 mL/hr vancomycin per pharmacy order Routine, NURSING: THIS IS TO REMIND YOU THAT PHARMACY WILL BE PLACING ORDERS FOR THIS MEDICATION --- NO DOCUMENTATION OF ADMIN OR ADDRESSED IS REQUIRED ON THIS ORDER documented in this encounter Active and Recently Administered Medications Times are shown in EDT. Scheduled Medication Order 12/12/2022 12/13/2022 12/14/2022 Drug Level Check - Vancomycin Random ONCE - TIMED LAB, 1 dose, First dose on Sun12/15/22 at 0600, STAT, Rupert as Order Check Addressed once lab level is drawn. If antibiotic time changes, please contact the Pharmacy to adjust Lab and Drug Level Check times. Gabapentin (Neurontin) cap 300 mg 300 mg, Oral, TID(AM/NOON/HS), First dose on Sun12/11/22 at 2200, Until Discontinued 0638 (Given - Provider: Hannah Cameron RN)1206 (Given - Provider: Olivia Londono RN)2217 (Given - Provider: Hannah Cameron RN) 0633 (Given - Provider: Hannah Cameron RN)1228 (Given - Provider: Ro Garcia RN)210 (Given - Provider: Lakesha Dutton RN) 0541 (Given - Provider: Lakesha Dutton RN)1229 (Given - Provider: Kirby Dasilva LPN) hEParin inj 5,000 Units 5,000 Units, Subcutaneous, Q12H, First dose on Sun12/11/22 at 2100, Until Discontinued 0859 (Given - Provider: Olivia Londono RN)205 (Given - Provider: Hannah Cameron RN) 0834 (Given - Provider: Ro Garcia RN)211 (Given - Provider: Lakesha Dutton RN) 0911 (Given - Provider: Kirby Dasilva LPN) insulin aspart (NovoLOG) inj Subcutaneous, W/MEALS AND HS, First dose on Sun12/11/22 at 2200, Until Discontinued, MEDIUM DOSE (Usual starting dose): [...] suggested insulin dose and call covering provider. 0859 (Given - Provider: Olivia Londono RN)1206 (Given - Provider: Olivia Londono RN)1747 (Given - Provider: Olivia Londono RN)2217 (Given - Provider: Hannah Cameron RN) 0800 (No Insulin - Provider: Ro Garcia RN - Reason: Parameter(s) Not Met)1200 (No Insulin - Provider: Ro Garcia RN - Reason: Parameter(s) Not Met)1721 (Given - Provider: Isela Ro RN)2226 (Given - Provider: Lakesha Dutton RN) 0800 (No Insulin - Provider: Kirby Dasilva LPN - Reason: Parameter(s) Not Met)1229 (Given - Provider: Kirby Dasilva LPN) Insulin Glargine (Lantus) inj 12 Units 12 Units, Subcutaneous, PMINSULIN, First dose on Sun12/12/22 at 1700, Until Discontinued, 174 (Given - Provider: Olivia Londono RN) 1721 (Given - Provider: Isela Ro RN) levothyroxine (Levoxyl) tab 88 mcg 88 mcg, Oral, [id number], First dose on Sun12/12/22 at 0630, Until Discontinued 0638 (Given - Provider: Hannah Cameron RN) 0633 (Given - Provider: Hannah Cameron RN) 0541 (Given - Provider: Lakesha Dutton RN) LiquaCel 30 mL, Oral, DAILY(1900), First dose on Sun12/13/22 at 1900, Until Discontinued 1722 (Given - Provider: Islea Ro, DAVION) methADONE CONCentrated 10 mg/mL oral conc 107 mg 107 mg, Oral, Daily(AM), First dose on Sun12/12/22 at 0900, Until Discontinued 0859 (Given - Provider: Olivia Londono RN) 0833 (Given - Provider: Ro Garcia, RN) 0910 (Given - Provider: Kirby Dasilva LPN) midodrine (Proamatine) tab 5 mg (CANCELED) 5 mg, Oral, TID(AM/NOON/HS), First dose on Sun12/12/22 at 1530, Until Discontinued 1521 (Given - Provider: Olivia Londono RN)2217 (Given - Provider: Hannah Cameron RN) 0633 (Given - Provider: Hannah Cameron RN)1228 (Given - Provider: Ro Garcia, DAVION)210 (Given - Provider: Lakesha Dutton RN) 0541 (Given - Provider: Lakesha Dutton RN) midodrine HCl (Proamatine) tab 10 mg 10 mg, Oral, TID(AM/NOON/HS), First dose (after last modification) on Sun12/14/22 at 1200, Until Discontinued 122 (Given - Provider: Kirby Dasilva LPN) Mirtazapine (Remeron) tab 15 mg 15 mg, Oral, HS, First dose on Sun12/11/22 at 2200, Until Discontinued 222 (Given - Provider: Hannah Cameron RN) 2108 (Given - Provider: Lakesha Dutton RN) Piperacillin-Tazobactam (Zosyn) 4.5 g in 100 mL NSS ivpb (FOUR hour infusion) IV Piggyback, 4.5 g, Q8HNOW, 15 doses, First dose on Sun12/12/22 at 0845, Last dose on Sun12/17/22 at 0045, Administer over 4 Hours, at 25 mL/hr 0911 (New Bag - Provider: Olivia Londono RN)1311 (Stopped - Provider: Olivia Londono RN)1624 (New Bag - Provider: Olivia Londono RN) 0116 (New Bag - Provider: Hannah Cameron RN)0844 (New Bag - Provider: Ro Gacria, DAVION)1244 (Stopped - Provider: Lakesha Dutton RN)1613 (New Bag - Provider: Isela Ro RN)2011 (Stopped - Provider: Lakesha Dutton RN) 0020 (New Bag - Provider: Lakesha Dutton RN)0420 (Stopped - Provider: Lakesha Dutton RN)0757 (New Bag - Provider: Kirby Dasilva LPN)1645 (Not Given - Provider: Kirby Dasilva LPN - Reason: Other-Notify Provider - Comment: discharged) QUEtiapine (SEROquel) tab 200 mg 200 mg, Oral, HS, First dose on Sun12/11/22 at 2200, Until Discontinued 2216 (Given - Provider: Hannah Cameron RN) 2107 (Given - Provider: Lakesha Duttno RN) vancomycin (Vancocin) 500 mg in NSS 100 mL ivpb 500 mg, IV Piggyback, [id number], First dose (after last modification) on Sun12/13/22 at 0915, Until Discontinued 08 (New Bag - Provider: Ro Garcia RN)09 (Stopped - Provider: Lakesha Dutton RN)2121 (New Bag - Provider: Lakesha Dutton RN)222 (Stopped - Provider: Lakesha Dutton RN) 0916 (New Bag - Provider: Kirby Dasilva LPN) vancomycin (Vancocin) 750 mg in NSS 100 mL ivpb (CANCELED) 750 mg, IV Piggyback, [id number], First dose on Sun12/12/22 at 0915, Until Discontinued 0930 (New Bag - Provider: Olivia Londono RN)102 (Stopped - Provider: Olivia Londono RN)2054 (New Bag - Provider: Hannah Cameron RN) vancomycin per pharmacy order Routine, NURSING: THIS IS TO REMIND YOU THAT PHARMACY WILL BE PLACING ORDERS FOR THIS MEDICATION --- NO DOCUMENTATION OF ADMIN OR ADDRESSED IS REQUIRED ON THIS ORDER Continuous Medication Order 12/12/2022 12/13/2022 12/14/2022 NSS infusion (CANCELED) Intravenous, at 100 mL/hr, CONTINUOUS, Starting on Sun12/11/22 at 2045, Until Sun12/14/22 at 0929 0644 (Stopped - Provider: Olivia Londono RN)0645 (New Bag - Provider: Hannah Cameron, DAVION)1419 (Rate Verify - Provider: Olivia Londono, RN)1623 (New Bag - Provider: Olivia Londono RN) 0156 (New Bag - Provider: Hannah Cameron RN)1159 (Rate Change - Provider: Lakesha Dutton RN)1227 (Stopped - Provider: Lakesha Dutton RN)1227 (New Bag - Provider: Ro Garcia RN)211 (Stopped - Provider: Lakesha Dutton RN)211 (New Bag - Provider: Lakesha Dutton RN) 0609 (Rate Verify - Provider: Lakesha Dutton RN)0739 (New Bag - Provider: Kirby Dasilva LPN) PRN Medication Order 12/12/2022 12/13/2022 12/14/2022 Acetaminophen (Tylenol) tab 650 mg 650 mg, Oral, Q6H PRN Pain, Mild, Fever >38C(100.5F), Starting on Sun12/11/22 at 2007, Until Sun12/14/22 at 2043, Maximum of 4 grams (4000 mg) per day. dextrose 50 % inj 25 mL 25 mL, IV Push, PRN Hypoglycemia, Other, For blood glucose 54 - 69 mg/dL or 70 - 100 mg/dL with symptoms AND patient is unresponsive, NPO, OR unable to swallow, Starting on Sun12/11/22 at 2012, Until Sun12/14/22 at 2043, Administer IV. Recheck blood glucose after 15 minutes. Notify provider. dextrose 50 % inj 50 mL 50 mL, IV Push, PRN Hypoglycemia, Other, For blood glucose below 54 mg/dL AND patient unresponsive, NPO, OR unable to swallow, Starting on Sun12/11/22 at 2012, Until Sun12/14/22 at 2043, Administer IV. Recheck blood glucose in 15 minutes. Notify provider. glucagon (Glucagen) inj 1 mg 1 mg, Intramuscular, PRN Hypoglycemia, Other, If patient is unresponsive, or NPO and has no IV access, Starting on Sun12/11/22 at 2012, Until Sun12/14/22 at 2043, NPO and no IV access with either [...] patient alert WITH difficulty chewing/swallowing, Starting on Sun12/11/22 at 2012, Until Sun12/14/22 at 2043, Administer gel. Recheck blood glucose after 15 minutes. Notify provider. 37.5 gram tube = 15 grams glucose = 1 each Glucose (Glutose 15) 40 % gel 30 g of glucose 30 g of glucose, Oral, PRN Hypoglycemia (low sugar), Other, For blood glucose below 54 mg/dL AND patient alert WITH difficulty chewing/swallowing, Starting on Sun12/11/22 at 2012, Until Sun12/14/22 at 2043, Administer gel. Recheck blood glucose after 15 minutes. Notify provider. 37.5 gram tube = 15 grams glucose = 1 each glucose chew tab 16 g 16 g, Oral, PRN Hypoglycemia, Other, For blood glucose 54 - 69 mg/dL or 70 - 100 mg/dL with symptoms and patient alert without difficulty chewing/swallowing., Starting on Sun12/11/22 at 2012, Until Sun12/14/22 at 2043 melatonin tab 3 mg 3 mg, Oral, HS PRN Insomnia, Starting on Sun12/11/22 at 2007, Until Sun12/14/22 at 2043 ondansetron (Zofran) inj 4 mg 4 mg, IV Push, Q6H PRN Nausea, Starting on Sun12/11/22 at 2007, Until Sun12/14/22 at 2043 Polyethylene Glycol 3350 (Miralax) oral powder 17 g 17 g (1 Packet), Oral, DAILY PRN Constipation, Starting on Sun12/11/22 at 2007, Until Sun12/14/22 at 2043, Mix in 8 oz of water, juice, soda, coffee, or tea. sodium chloride 0.9 % flush/inj 3 mL 3 mL, IV Push, PRN Other, Line Patency, Starting on Sun12/11/22 at 2006, Until Sun12/14/22 at 2043, Do not flush if lock, PICC, or central line not in place, IV infusing or unable to flush documented in this encounter Additional Health Concerns [...] the patient have Health Care Power of Bowling Alley Attendant? No Full Code 12/25/2021 1:35 PM 01/06/2022 6:52 PM This order reflects the patients wishes and were consensually agreed upon. Question Answer Comments Discussion of Advance Directives occurred with: Family Does the patient have a Living Will? No Does the patient have Health Care Power of Bowling Alley Attendant? No Full Code 07/16/2015 10:39 AM 07/17/2015 [...] the patient have Health Care Power of Bowling Alley Attendant? No Care Teams Meter Tester Polyphase Relationship Specialty Start Date End Date Av Graves MD SARITHA Carranza [phone] PCP - General Family Medicine 06/27/22 documented as of this encounter
--- OUTSIDE RECORDS SUMMARY | 2023-04-19 19:55 | External Medical Summary ---
Author Name Unknown Address Unknown Organization K1F:[facility] [address] [facility] [place] [address] Laboratory Report Ordering Provider Test Date Status MAKEDA ROSALES 12/14/2022 04:18:00 Final Observation Date Value Abnormality Reference (Units ) Status BUN 12/14/2022 04:18:00 21 Above high normal 6-20 (mg/dL) Final Creatinine 12/14/2022 04:18:00 0.9 0.6-1.2 (mg/dL) Final Glomerular filtration rate/1.73 sq M.predicted [Volume Rate/Area] in Serum, Plasma or Blood by Creatinine-based formula (CKD-EPI) 12/14/2022 04:18:00 >90 >=60 (mL/min) Final eGFR is calculated based on the CKD-EPI 2020 equation SODIUM 12/14/2022 04:18:00 140 135-146 (m mol/L) Final Potassium 12/14/2022 04:18:00 3.8 3.5-5.1 (m mol/L) Final Cl 12/14/2022 04:18:00 108 Above high normal 98 -107 (mmol/L) Final CO2 12/14/2022 04:18:00 26 22-32 (mmo l/L) Final Anion gap 12/14/2022 04:18:00 6 Below low normal 7-1 5 (mmol/L) Final Glucose 12/14/2022 04:18:00 160 Above high normal 70 -120 (mg/dL) Final Albumin 12/14/2022 04:18:00 2.9 Below low normal 3.8 -5.0 (g/dL) Final AST (Aspartate aminotransferase) 12/14/2022 04:18:00 19 10-50 (U/L) Fin al Alk Phos 12/14/2022 04:18:00 55 35-130 (U/ L) Final Bilirubin, Total 12/14/2022 04:18:00 <0.2 <=1 .2 (mg/dL) Final Calcium 12/14/2022 04:18:00 8.2 Below low normal 8.4 -10.2 (mg/dL) Final Protein 12/14/2022 04:18:00 5.8 Below low normal 6.0 -8.3 (g/dL) Final ALT (Alanine aminotransferase) 12/14/2022 04:18:00 19 10-50 (U/L) Gustavo cowart [facility] Location LABORATORY [facility] - [address] [place], [place] [address]darron Gonzalez. [place] [address]
--- OUTSIDE RECORDS SUMMARY | 2023-04-19 19:55 | External Medical Summary ---
Author Name Unknown Address Unknown Organization : Laboratory Report Ordering Provider Test Date Status DIANE SHIN 12/13/2022 11:39:24 Final Observation Date Value Abnormality Reference (Units ) Status Glucose Point of Care 12/13/2022 11:39:24 117 70-120 (mg/dL) Final Performing Location
--- OUTSIDE RECORDS SUMMARY | 2023-04-19 19:55 | External Medical Summary | Summary of Care ---
Author Name Unknown Organization [facility] Address [address] [place] [address] Phone [phone] Care Team Providers Care Medical Insurance Biller Name Role Phone Av Graves MD Primary Care Provider [phone] Reason for Visit * Reason Onset Date Comments Medication Question 12/14/2022 Encounter Details Date Type Department Care Team Description 12/14/[address] [place] [id number] Nery Collier PA-C [address] [facility] [place] [address] Medication Question Allergies No known active allergiesdocumented as of this encounter (statuses as of 12/14/2022) Medications Medication Sig Dispensed Refills Start Date End Date Status BD Pen Needle Mini U/F 31G X 5 MM (Insulin Pen Needle)Indications :Type 1 diabetes mellitus with hemoglobin A1c goal of less than 8.0% ([facility]) USE THREE TIMES DAILY WITH HUMALOG KWIK PEN E10.9 100 Each 0 12/13/2022 Active OneTouch Delica Plus [id number] ns:Type 1 diabetes mellitus with hemoglobin A1c goal of less than 8.0% ([facility]) test blood sugars FOUR TIMES DAILY E10.9 [...] Active QUEtiapine Fumarate 200 MG Oral Tablet (SEROquel)Indicati ons:Bipolar 1 disorder, depressed ([facility]) Take 1 Tablet by mouth at bedtime. 30 Tablet 0 12/13/2022 Active OneTouch Verio In Vitro Strip (Glucose Blood)Indications: Type 1 diabetes mellitus with hemoglobin A1c goal of less than 8.0% ([facility]) Use up to 4 times a day E10.9 100 Strip 0 12/13/2022 Active Sulfamethoxazole-T rimethoprim 800-160 MG Oral Tablet (Bactrim DS) Take [...] before bedtime. 90 Tablet 0 12/14/2022 Active Methadone HCl 10 MG/ML Oral Concentrate Take 10.7 mL by mouth in the morning. 0 11/01/2021 Suspended OneTouch Verio w/Device KitIndications:Typ e 1 diabetes mellitus with hemoglobin A1c goal of less than 8.0% ([facility]) Use up to 4 times a day E11.9 1 Kit 0 12/02/2021 Suspended Additional Information ProAir HFA 108 (90 Base) MCG/ACT Inhalation Aerosol SolutionIndication s:Pneumonia of both upper lobes due to infectious organism Inhale by mouth 2 Puffs every 4 hours as needed for Wheezing. 18 g 1 01/10/2022 Suspended Additional Information documented as of this encounter (statuses as of 12/14/2022) Active Problems Problem Noted Date Chronic osteomyelitis [...] as of this encounter (statuses as of 12/14/2022) Resolved Problems Problem Noted Date Resolved Date [...] as of this encounter (statuses as of 12/14/2022) Immunizations Name Administration Dates Next Due Seasonal [...] encounter Miscellaneous Notes * Telephone Encounter - Nery Collier PA-C - 12/14/2022 11:16 AM EDT Pharmacy aware. * Telephone Encounter - Nery Collier PA-C - 12/14/2022 10:01 AM EDT Patient has a meter The two scripts sent for test strips were duplicate * Telephone Encounter - Kelly Malik LPN - 12/14/2022 9:00 AM EDT Provider to address: Rupert calling from the [place] [facility]. Stated that he received 2 scripts yesterday from Nery Collier for OneTouch Verio In Vitro Strips. Rupert is wondering if Nery meant to send a RX for the meter too. Please advise Reason for Call: Medication Question Contact: Telephone Call Contact Type: Information Total Time including non face to face (minutes): 5 documented in this encounter Plan of Treatment Upcoming Encounters Date Type Specialty Care Team Description 12/25/2022 Office Visit Family Medicine Av Graves MD [address] [facility] [place]ITH[place] Messer [phone] 12/27/2022 Office Visit Family Medicine Av Graves MD [address] [address] Health Maintenance Due Date Last Done Comments DISCUSS TOBACCO CESSATION (REFER TO SMARTSET #0370) 1985 Hepatitis B (1 of 3 - [...] the patient have Health Care Power of Programming Instructor? No Full Code 12/25/2021 1:35 PM 01/06/2022 6:52 PM This order reflects the patients wishes and were consensually agreed upon. Question Answer Comments Discussion of Advance Directives occurred with: Family Does the patient have a Living Will? No Does the patient have Health Care Power of Programming Instructor? No Full Code 07/16/2015 10:39 AM 07/17/2015 [...] the patient have Health Care Power of Programming Instructor? No Care Teams Medical Insurance Biller Relationship Specialty Start Date End Date Av Graves MD 21 [place] [phone] PCP - General Family Medicine 06/27/22 documented as of this encounter
--- OUTSIDE RECORDS SUMMARY | 2023-04-19 19:55 | External Medical Summary ---
Author Name Unknown Address Unknown Organization K1F:[facility] - [address] [place] [address] Laboratory Report Ordering Provider Test Date Status MAKEDA ROSALES 12/13/2022 05:33:00 Final Observation Date Value Abnormality Reference (Units ) Status Magnesium 12/13/2022 05:33:00 1.9 1.5-2.6 (m g/dL) Final Performing Location [facility] - [address] [place] [address]
--- OUTSIDE RECORDS SUMMARY | 2023-04-19 19:55 | External Medical Summary ---
Author Name Unknown Address Unknown Organization : Laboratory Report Ordering Provider Test Date Status DIANE SHIN 12/12/2022 22:00:40 Final Observation Date Value Abnormality Reference (Units ) Status Glucose Point of Care 12/12/2022 22:00:40 219 Above high normal 70-120 (mg/dL) Final Performing Location
--- OUTSIDE RECORDS SUMMARY | 2023-04-19 19:55 | External Medical Summary ---
Author Name Unknown Address Unknown Organization K1F:LABORATORY [facility] - [address] [place] [address] Laboratory Report Ordering Provider Test Date Status DIANE SHIN 12/12/2022 05:04:00 Final Observation Date Value Abnormality Reference (Units ) Status CRP, low-sensitivity 12/12/2022 05:04:00 <3 <=5 (mg/L) Final Performing Location [facility] - [address] [place] [address]
--- OUTSIDE RECORDS SUMMARY | 2023-04-19 19:55 | External Medical Summary ---
Author Name Unknown Address Unknown Organization K1F:LABORATORY [facility] - [address] [place] [address] Laboratory Report Ordering Provider Test Date Status MAKEDA ROSALES 12/14/2022 04:18:00 Final Observation Date Value Abnormality Reference (Units ) Status WBC, Total 12/14/2022 04:18:00 5.48 4.00-10.80 (K/uL) Final RBC 12/14/2022 04:18:00 3.22 4.50-5.25 (M/uL) Final Hemoglobin 12/14/2022 04:18:00 10.2 Below low normal 14.0-16.8 (g/dL) Final HCT 12/14/2022 04:18:00 31.3 Below low normal 40.0-48.4 (%) Final MCV 12/14/2022 04:18:00 97.2 82.0-99.5 (fL) Final MCH 12/14/2022 04:18:00 31.7 27.0-34.0 (pg) Final MCHC 12/14/2022 04:18:00 32.6 32.0-36.0 (g/dL) Final RDW 12/14/2022 04:18:00 13.6 11.5-15.5 (%) Final Platelets 12/14/2022 04:18:00 347 140-400 (K/uL) Final MPV 12/14/2022 04:18:00 9.1 6.6-11.1 (fL) Final Nucleated erythrocytes/100 leukocytes [Ratio] in Blood by Automated count 12/14/2022 04:18:00 0 <=0 (/100 WBCs) Final Performing Location LABORATORY [facility] - [address] [place] [address]
--- OUTSIDE RECORDS SUMMARY | 2023-04-19 19:55 | External Medical Summary | Summary of Care ---
Author Name Unknown Organization [facility] Address [address] [place] [address] Phone [phone] Care Team Providers Care Rn Examiner Name Role Phone Av Graves MD Primary Care Provider [phone] Reason for Visit * Reason Onset Date Comments Medication Question 12/14/2022 Encounter Details Date Type Department Care Team Description 12/14/[address] [place] [phone] Nery Collier PA-C [address] [facility] [place] [address] Medication Question Allergies No known active allergiesdocumented as of this encounter (statuses as of 12/14/2022) Medications Medication Sig Dispensed Refills Start Date End Date Status BD Pen Needle Mini U/F 31G X 5 MM (Insulin Pen Needle)Indications :Type 1 diabetes mellitus with hemoglobin A1c goal of less than 8.0% ([facility]) USE THREE TIMES DAILY WITH HUMALOG KWIK PEN E10.9 100 Each 0 12/13/2022 Active OneTouch Delica Plus [id number] ns:Type 1 diabetes mellitus with hemoglobin A1c goal of less than 8.0% ([facility]) test blood sugars FOUR TIMES DAILY [...] Oral Tablet (SEROquel)Indicati ons:Bipolar 1 disorder, depressed ([facility]) Take 1 Tablet by mouth at bedtime. 30 Tablet 0 12/13/2022 Active OneTouch Verio In Vitro Strip (Glucose Blood)Indications: Type 1 diabetes mellitus with hemoglobin A1c goal of less than 8.0% ([facility]) Use up to 4 times a [...] hemoglobin A1c goal of less than 8.0% ([facility]) Use up to 4 times a [...] Provider to address: Rupert calling from the [facility]. Stated that he received 2 scripts [...] Visit Family Medicine Av Graves MD 21 [facility] [place] [phone] 12/27/2022 Office Visit Family Medicine Av Graves MD [address] [address] Health Maintenance Due Date Last Done Comments DISCUSS TOBACCO CESSATION (REFER TO SMARTSET #8218) 1985 Hepatitis B (1 of 3 - [...] the patient have Health Care Power of Surgical Technology Instructor? No Full Code 12/25/2021 1:35 PM 01/06/2022 6:52 PM This order reflects the patients wishes and were consensually agreed upon. Question Answer Comments Discussion of Advance Directives occurred with: Family Does the patient have a Living Will? No Does the patient have Health Care Power of Surgical Technology Instructor? No Full Code 07/16/2015 10:39 AM [...] the patient have Health Care Power of Surgical Technology Instructor? No Care Teams Rn Examiner Relationship Specialty Start Date End Date Av Graves MD 21 [place] [phone] PCP - General Family Medicine 06/27/22 documented as of this encounter
--- OUTSIDE RECORDS SUMMARY | 2023-04-19 19:55 | External Medical Summary ---
Author Name Unknown Address Unknown Organization : Laboratory Report Ordering Provider Test Date Status DIANE SHIN 12/13/2022 07:53:16 Final Observation Date Value Abnormality Reference (Units ) Status Glucose Point of Care 12/13/2022 07:53:16 104 70-120 (mg/dL) Final Performing Location
--- OUTSIDE RECORDS SUMMARY | 2023-04-19 19:55 | External Medical Summary ---
Author Name Unknown Address Unknown Organization : Laboratory Report Ordering Provider Test Date Status DIANE SHIN 12/12/2022 11:23:39 Final Observation Date Value Abnormality Reference (Units ) Status Glucose Point of Care 12/12/2022 11:23:39 205 Above high normal 70-120 (mg/dL) Final Performing Location
--- OUTSIDE RECORDS SUMMARY | 2023-04-19 19:56 | External Medical Summary ---
Author Name Unknown Address Unknown Organization K1[facility] [address] [place] [address] Laboratory Report Ordering Provider Test Date Status DESI MCGOWAN 12/11/2022 16:16:00 Final Observation Date Value Abnormality Reference (Units ) Status Lactic Acid 12/11/2022 16:16:00 2.7 Above high normal 0.4-2.0 (mmol/L) Final Performing Location [facility] [address] [place] [address]
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
--- OUTSIDE RECORDS SUMMARY | 2023-04-19 19:56 | External Medical Summary ---
Author Name Unknown Address Unknown Organization K1F:[facility] - [address] [place] [address] Laboratory Report Ordering Provider Test Date Status DESI MCGOWAN 12/11/2022 15:39:00 Final Less than 0.5 ng/mL: Low ris [...] [Mass/volume] in Serum or Plasma by Immunoassay 12/11/2022 15:39:00 0.07 <0.10 (ng/mL) Final Performing Location [facility] - [address] [place] [address]
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
--- OUTSIDE RECORDS SUMMARY | 2023-04-19 19:56 | External Medical Summary ---
Author Name Unknown Address Unknown Organization K1F:[facility] - [address] [place] [address] Laboratory Report Ordering Provider Test Date Status ESTER THOMSON 12/11/2022 16:17:01 Final Collect 1 HOUR Observation Date Value Abnormality Reference (Units ) Status Troponin T 12/11/2022 16:17:01 21 <=22 (ng/ L) Final Performing Location [facility] - [address] [place] [address]
--- OUTSIDE RECORDS SUMMARY | 2023-04-19 19:56 | External Medical Summary ---
Author Name Unknown Address Unknown Organization [facility] - [address] [place] [address] Laboratory Report Ordering Provider Test Date Status DESI MCGOWAN 12/11/2022 16:17:01 Final Observation Date Value Abnormality Reference (Units ) Status Phosphate 12/11/2022 16:17:01 4.7 2.5-4.8 (m g/dL) Final Performing Location [facility] - [address] [place] [address]
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
--- OUTSIDE RECORDS SUMMARY | 2023-04-19 19:56 | External Medical Summary ---
Author Name Unknown Address Unknown Organization K1F:[facility] - [address] [place] [address] Laboratory Report Ordering Provider Test Date Status ESTER THOMSON 12/11/2022 15:39:00 Final Observation Date Value Abnormality Reference (Units ) Status WBC, Total 12/11/2022 15:39:00 8.00 4.00-10.80 (K/uL) Final RBC 12/11/2022 15:39:00 3.77 4.50-5.25 (M/uL) Final Hemoglobin 12/11/2022 15:39:00 12.0 Below low normal 14.0-16.8 (g/dL) Final HCT 12/11/2022 15:39:00 35.9 Below low normal 40.0-48.4 (%) Final MCV 12/11/2022 15:39:00 95.2 82.0-99.5 (fL) Final MCH 12/11/2022 15:39:00 31.8 27.0-34.0 (pg) Final MCHC 12/11/2022 15:39:00 33.4 32.0-36.0 (g/dL) Final RDW 12/11/2022 15:39:00 13.3 11.5-15.5 (%) Final Platelets 12/11/2022 15:39:00 425 Above high normal 140-400 (K/uL) Final MPV 12/11/2022 15:39:00 9.0 6.6-11.1 (fL) Final Nucleated erythrocytes/100 leukocytes [Ratio] in Blood by Automated count 12/11/2022 15:39:00 0 <=0 (/100 WBCs) Final Performing Location [facility] - [address] [place] [address]
--- OUTSIDE RECORDS SUMMARY | 2023-04-19 19:56 | External Medical Summary ---
Author Name Unknown Address Unknown Organization K1F:[facility] - [address] [place] [address] [place] [address] Laboratory Report Ordering Provider Test Date Status LUDIN MCGOWANNakita 12/11/2022 16:27:17 Final Observation Date Value Abnormality Reference (Units ) Status Bacteria identified in Specimen by Culture 12/11/2022 16:27:17 No growth Final Test: Culture, Blood (Site 2 )
Specimen Source: Blood, Venous
Specimen Type: Blood
Specimen Date: 12/11/2022 4:27 PM
Result Date: 12/16/2022 5:01 PM
Result Status: Final result
Resulting Lab: [facility]
[address] [place] [address]
[facility] [id number]

CULTURE

No growth

null Performing Location [facility] - [address] [place] [address] [facility] [address]
--- OUTSIDE RECORDS SUMMARY | 2023-04-19 19:56 | External Medical Summary ---
Author Name Unknown Address Unknown Organization K1F:[facility] - [place] [address] Laboratory Report Ordering Provider Test Date Status ESTER THOMSON 12/11/2022 15:39:00 Final Collect NOW Observation Date Value Abnormality Reference (Units ) Status Troponin T 12/11/2022 15:39:00 21 <=22 (ng/ L) Final Performing Location [facility] - [address] [place] [address]
--- OUTSIDE RECORDS SUMMARY | 2023-04-19 19:56 | External Medical Summary | Summary of Care ---
Author Name Unknown Organization [facility] Address [address] [place] [address] Phone [phone] Care Team Providers Care Paraprofessional Aide Teacher Name Role Phone Av Graves MD Primary Care Provider [phone] Reason for Visit * Reason Onset Date Comments Appointment 11/01/2022 3 day urgent Encounter Details Date Type Department Care Team Description 11/01/2022 Telephone Wound Care, [facility] [address], [place] [phone] Mikael Caldera MD 27 [facility] [address] [place], [place] [phone] Appointment (3 day urgent) Allergies No known active allergiesdocumented as of [...] Strip 5 01/10/2022 Active OneTouch Delica Plus [id number] s:Type 1 diabetes mellitus with hemoglobin A1c [...] bedtime. 60 Tablet 0 11/01/2022 12/01/2022 Active documented as of this encounter (statuses [...] (15 years old or older) No 10/28/19 23 Cognitive Status Response Date of Assessm ent Because of a physical, menta l, or emotional condition, do you have serious difficulty concentrating, remembering, or making decisions? (5 years old or older No 10/27/2022 documented as of this encounter Miscellaneous Notes * Telephone Encounter - ULISSES Dai - 11/10/2022 8:26 AM EDT Unable to reach patient. Canceled the appointment and sent letter making patient aware. * Telephone Encounter - ULISSES Dai - 11/09/2022 9:01 AM EDT Called patients spouse Karen and LM for them to CB. * Telephone Encounter - ULISSES Dai - 11/08/2022 8:17 AM EDT Called patient and LM for him to CB. * Telephone Encounter - Tanya Whitley - 11/07/2022 8:38 AM EDT Called pt and LM For them to CB. * Telephone Encounter - ULISSES Dai - 11/06/2022 8:11 AM EDT Called pt and LM For them to CB. * Telephone Encounter - ULISSES Dai - 11/03/2022 10:48 AM EDT Called patient and LM for them to CB. * Telephone Encounter - Devora Ruiz RN - 11/03/2022 8:09 AM EDT Noted. Tanya, please cancel appointment with Dr. Caldera. * Telephone Encounter - Mikael Caldera MD - 11/02/2022 5:45 PM EDT The patient is being managed by Dr. Bolivar in Orthopaedics and he expressed in his note that outpatient follow-up will be arranged in his office. He should not be seen in wound care, as the patient's issue is surgical. * Telephone Encounter - Devora Ruiz RN - 11/01/2022 3:39 PM EDT Due to Dr. Caldera being out of clinic for next two weeks, we are unable to see this patient untilthen. Maybe General Surgery would be willing to see this patient or even [facility] sooner? * Telephone Encounter - ULISSES Dai - 11/01/2022 3:36 PM EDT [facility] called back and said that the patient will take the appointment in 3 weeks. She said it may be worse until then I advise her he can see his PCP or another provider until then. * Telephone Encounter - Tanya Whitley - 11/01/2022 3:16 PM EDT Rebecca called from [facility] requesting an urgent 3 day referral for a right index finger wound. (Osteo) Please advise. First available new wound appointment is 11/21/[address] Caldera. documented in this encounter Plan of Treatment Upcoming Encounters Date Type Specialty Care Team Description 11/10/2022 Office Visit Wound Care Madi Lerma MD [address] [place] [address] 11/16/2022 Office Visit Family Medicine Av Graves MD [address] [place] [address] 11/21/2022 Office Visit Wound Care Mikael Caldera MD [address] [place] [address] [place] [phone] 11/28/2022 Office Visit Ophthalmology Jorge Shepherd DO [address] [phone] 12/27/2022 Office Visit Family Medicine Av Graves MD 21 [facility] [place] [phone] Health Maintenance Due Date Last Done Comments [...] the patient have Health Care Power of Ink Technician? No Code Status History Code Status Date Activated Date Inactivated Comments Full Code 12/25/2021 1:35 PM 01/06/2022 6:52 PM This order reflects the patients wishes and were consensually agreed upon. Question Answer Comments Discussion of Advance Directives occurred with: Family Does the patient have a Living Will? No Does the patient have Health Care Power of Ink Technician? No Full Code 07/16/2015 10:39 AM [...] the patient have Health Care Power of Ink Technician? No Care Teams Paraprofessional Aide Teacher Relationship Specialty Start Date End Date Av Graves MD [address] [id number] PCP - General Family Medicine 06/27/22 documented as of this encounter
--- OUTSIDE RECORDS SUMMARY | 2023-04-19 19:56 | External Medical Summary ---
Author Name Unknown Address Unknown Organization : Laboratory Report Ordering Provider Test Date Status ALESIA METZ 12/11/2022 21:28:39 Final Observation Date Value Abnormality Reference (Units ) Status Glucose Point of Care 12/11/2022 21:28:39 99 70-120 (mg/dL) Final Performing Location
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
--- OUTSIDE RECORDS SUMMARY | 2023-04-19 19:56 | External Medical Summary | Summary of Care ---
Author Name Unknown Organization [facility] Address [address] [place] [address] Phone [phone] Care Team Providers Care Immigration Specialist Name Role Phone Av Graves MD Primary Care Provider [phone] [phone] Reason for Visit * Reason Onset Date Comments Home Health 11/16/2022 Encounter Details Date Type Department Care Team Description 11/[facility] [facility] [place] [address] Av Graves MD 21 [place] [address] Home Health Allergies No known active allergiesdocumented as of [...] hemoglobin A1c goal of less than 8.0% ([facility]) Use up to 4 times [...] Strip 5 01/10/2022 Active OneTouch Delica Plus [id number] s:Type 1 diabetes mellitus with hemoglobin A1c [...] encounter Miscellaneous Notes * Telephone Encounter - Av Graves MD [...] EDT HH Concerns Ale RN Calling from: [facility] Report/Concerns of: Missed Visits Narrative Missed home health visit 11/08, 11/10 (could not reach him to make a visit) She called him and he didn't want HH to come on Sunday She tried to call him yesterday and and today but pt did not answer his phone Call back [facility] Home Health with any advice or orders at Reason for Call: Home Health Contact: Telephone Call Contact Type: Care Coordination Total Time including non face to face (minutes): 5 documented in this encounter Plan of Treatment Upcoming Encounters Date Type Specialty Care Team Description 11/21/2022 Office Visit Wound Care Mikael Caldera MD [address] [place] [address] [place] [address] 11/28/2022 Office Visit Ophthalmology Jorge Shepherd DO [address] [address] 12/27/2022 Office Visit Family Medicine Av Graves MD [address] [phone] Health Maintenance Due Date Last Done Comments [...] the patient have Health Care Power of Spray Booth Operator? No Code Status History Code Status Date Activated Date Inactivated Comments Full Code 12/25/2021 1:35 PM 01/06/2022 6:52 PM This order reflects the patients wishes and were consensually agreed upon. Question Answer Comments Discussion of Advance Directives occurred with: Family Does the patient have a Living Will? No Does the patient have Health Care Power of Spray Booth Operator? No Full Code 07/16/2015 10:39 AM 07/17/2015 [...] the patient have Health Care Power of Spray Booth Operator? No Care Teams Immigration Specialist Relationship Specialty Start Date End Date Av Graves MD [address] [place] [address] PCP - General Family Medicine 06/27/22 documented as of this encounter
--- OUTSIDE RECORDS SUMMARY | 2023-04-19 19:56 | External Medical Summary ---
Author Name Unknown Address Unknown Organization K[facility] [address] [facility] [place] [address] Laboratory Report Ordering Provider Test Date Status ETSER THOMSON 12/11/2022 15:39:00 Final Observation Date Value Abnormality Reference (Units ) Status BUN 12/11/2022 15:39:00 43 Above high normal 6-20 (mg/dL) Final Creatinine 12/11/2022 15:39:00 1.6 Above high normal 0.6-1.2 (mg/dL) Final Glomerular filtration rate/1.73 sq M.predicted [Volume Rate/Area] in Serum, Plasma or Blood by Creatinine-based formula (CKD-EPI) 12/11/2022 15:39:00 59 Below low normal >=60 (mL/min) Final eGFR is calculated based on the CKD-EPI 2020 equation SODIUM 12/11/2022 15:39:00 138 135-146 (m mol/L) Final Potassium 12/11/2022 15:39:00 3.9 3.5-5.1 (m mol/L) Final Cl 12/11/2022 15:39:00 99 98-107 (mm ol/L) Final CO2 12/11/2022 15:39:00 28 22-32 (mmo l/L) Final Anion gap 12/11/2022 15:39:00 11 7-15 (mmol /L) Final Glucose 12/11/2022 15:39:00 114 70-120 (mg /dL) Final Albumin 12/11/2022 15:39:00 4.5 3.8-5.0 (g /dL) Final AST (Aspartate aminotransferase) 12/11/2022 15:39:00 21 10-50 (U/L) Fin al Alk Phos 12/11/2022 15:39:00 86 35-130 (U/ L) Final Bilirubin, Total 12/11/2022 15:39:00 0.2 <=1 .2 (mg/dL) Final Calcium 12/11/2022 15:39:00 9.9 8.4-10.2 ( mg/dL) Final Protein 12/11/2022 15:39:00 8.6 Above high normal 6. 0-8.3 (g/dL) Final ALT (Alanine aminotransferase) 12/11/2022 15:39:00 27 10-50 (U/L) Gustavo cowart Performing Location LABORATORY [facility] - [facility][note 3] [address]. [place] [address]
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
--- OUTSIDE RECORDS SUMMARY | 2023-04-19 19:56 | External Medical Summary ---
Author Name Unknown Address Unknown Organization : Laboratory Report Ordering Provider Test Date Status NO,UNKNOWN 12/11/2022 14:50:13 Final Observation Date Value Abnormality Reference (Units ) Status Glucose Point of Care 12/11/2022 14:50:13 177 Above high normal 70-120 (mg/dL) Final Performing Location
--- OUTSIDE RECORDS SUMMARY | 2023-04-19 19:56 | External Medical Summary ---
Author Name Unknown Address Unknown Organization K1F:LABORATORY [facility] - [address] [place] [address] Laboratory Report Ordering Provider Test Date Status DESI MCGOWAN 12/11/2022 17:42:06 Final Observation Date Value Abnormality Reference (Units ) Status Color of Urine by Auto 12/11/2022 17:42:06 Yellow Light Yellow, Yellow, Dark Yellow Final Clarity, Urine 12/11/2022 17:42:06 Clear Clear Final Glucose [Mass/volume] in Urine by Automated test strip 12/11/2022 17:42:06 >=1000 Abnormal Negative (mg/dL) Final Bilirubin.total [Presence] in Urine by Automated test strip 12/11/2022 17:42:06 Negative Negative Final Ketones [Mass/volume] in Urine by Automated test strip 12/11/2022 17:42:06 Negative Negative (mg/dL) Final Specific gravity, Urine 12/11/2022 17:42:06 1.028 1.003-1.030 Final Hemoglobin [Presence] in Urine by Automated test strip 12/11/2022 17:42:06 Trace Abnormal Negative Final pH, Urine 12/11/2022 17:42:06 6.0 5.0-7.5 (Units) Final Protein [Mass/volume] in Urine by Automated test strip 12/11/2022 17:42:06 Trace Abnormal Negative (mg/dL) Final Urobilinogen [Mass/volume] in Urine by Automated test strip 12/11/2022 17:42:06 0.2 0.2, 1.0 (mg/dL) Final Nitrite [Presence] in Urine by Automated test strip 12/11/2022 17:42:06 Negative Negative Final Leukocyte esterase [Presence] in Urine by Automated test strip 12/11/2022 17:42:06 Negative Negative Final Performing Location LABORATORY [facility] - [address] [place] [address]
--- OUTSIDE RECORDS SUMMARY | 2023-04-19 19:56 | External Medical Summary ---
Author Name Unknown Address Unknown Organization [facility] - [address] [place] [address] Laboratory Report Ordering Provider Test Date Status DESI MCGOWAN 12/11/2022 16:17:01 Final Observation Date Value Abnormality Reference (Units ) Status Magnesium 12/11/2022 16:17:01 2.3 1.5-2.6 (m g/dL) Final Performing Location [facility] - [address] [place] [address]
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
--- OUTSIDE RECORDS SUMMARY | 2023-04-19 19:56 | External Medical Summary ---
Author Name Unknown Address Unknown Organization K1F:[facility] - [address] [facility] [address] Laboratory Report Ordering Provider Test Date Status EDSI MCGOWAN 12/11/2022 16:27:17 Final Observation Date Value Abnormality Reference (Units ) Status Body temperature 12/11/2022 16:27:17 37.0 (C) Final pH of Venous blood 12/11/2022 16:27:17 7.247 Below low normal 7.320-7.430 (units) Final Carbon dioxide [Partial pressure] in Venous blood 12/11/2022 16:27:17 72.6 Above high normal 40.0-60.0 (mmHg) Final Oxygen [Partial pressure] in Venous blood 12/11/2022 16:27:17 20.2 Below low normal 25.0-50.0 (mmHg) Final Base excess, Capillary 12/11/2022 16:27:17 1.7 -2.0-2.0 (mmol/L) Final Hemoglobin [Mass/volume] in Blood by Oximetry 12/11/2022 16:27:17 12.6 Below low normal 14.0-16.8 (g/dL) Final Oxyhemoglobin, Venous (FO2HB) 12/11/2022 16:27:17 25.9 Below low normal 40.0-85.0 (% total Hgb) Final Carboxyhemoglobin 12/11/2022 16:27:17 5.3 Above high normal <=1.5 (% total Hgb) Final Smokers: 0-9.0 % Methemoglobin 12/11/2022 16:27:17 1.2 <= 1.5 (% total Hgb) Final Deoxyhemoglobin/Hemoglo bin.total in Venous blood 12/11/2022 16:27:17 67.6 (% total Hgb) Final Oxygen content in Venous blood 12/11/2022 16:27:17 4.6 Below low normal 7.0-18.0 (%vol) F inal Bicarbonate, Venous, POC (i-STAT) 12/11/2022 16:27:17 30.5 23.0-31.0 (mmol/L) Final Performing Location LABORATORY [facility] - [address] [address]
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
--- OUTSIDE RECORDS SUMMARY | 2023-04-19 19:56 | External Medical Summary ---
Author Name Unknown Address Unknown Organization K1F:[facility] - [address] [place] [address] Laboratory Report Ordering Provider Test Date Status DESI MCGOWAN 12/11/2022 18:12:00 Final Observation Date Value Abnormality Reference (Units ) Status Lactic Acid 12/11/2022 18:12:00 0.6 0.4-2.0 (mmol/L) Final Performing Location LAB[facility] - [address] [place] [address]
--- OUTSIDE RECORDS SUMMARY | 2023-04-19 19:56 | External Medical Summary ---
Author Name Unknown Address Unknown Organization K1F:LABORATORY [place] [id number] Laboratory Report Ordering Provider Test Date Status DESI MCGOWAN 12/11/2022 16:23:23 Final Observation Date Value Abnormality Reference (Units ) Status Bacteria identified in Specimen by Culture 12/11/2022 16:23:23 No growth Final Test: Culture, Blood
Spe cimen Source: Blood, Venous
Specimen Type: Blood
Specimen Date: 12/11/2022 4:23 PM
Result Date: 12/16/2022 5:01 PM
Result Status: Final result
Resulting Lab: LABORATORY [facility]
[address] [place] [address]
[facility] [address]

CULTURE

No growth

null Performing Location LABORATORY [facility] - [address] [place] [address]
--- OUTSIDE RECORDS SUMMARY | 2023-04-19 19:56 | External Medical Summary ---
Author Name Unknown Address Unknown Organization K1F:[facility] - [address] [place] [address] Laboratory Report Ordering Provider Test Date Status DESI MCGOWAN 12/11/2022 17:42:06 Final Observation Date Value Abnormality Reference (Units ) Status RBC, Urine 12/11/2022 17:42:06 0-2 0-2 (/HPF) Final WBC, Urine 12/11/2022 17:42:06 0-2 0-2 (/HPF) Final Bacteria [#/area] in Urine sediment by Microscopy high power field 12/11/2022 17:42:06 51-100 Abnormal 0-25 (/HPF) Final Performing Location [facility] - [address] [place] [address]
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
--- OUTSIDE RECORDS SUMMARY | 2023-04-19 19:56 | External Medical Summary ---
Author Name Unknown Address Unknown Organization K1F:[facility] - [address] [place] [address] Laboratory Report Ordering Provider Test Date Status TALI LAGUNAO 12/12/2022 05:04:00 Final Observation Date Value Abnormality Reference (Units ) Status BUN 12/12/2022 05:04:00 36 Above high normal 6-20 (mg/dL) Final Creatinine 12/12/2022 05:04:00 1.0 0.6-1.2 (mg/dL) Final Glomerular filtration rate/1.73 sq M.predicted [Volume Rate/Area] in Serum, Plasma or Blood by Creatinine-based formula (CKD-EPI) 12/12/2022 05:04:00 >90 >=60 (mL/min) Final eGFR is calculated based on the CKD-EPI 2020 equation SODIUM 12/12/2022 05:04:00 138 135-146 (m mol/L) Final Potassium 12/12/2022 05:04:00 4.0 3.5-5.1 (m mol/L) Final Cl 12/12/2022 05:04:00 107 98-107 (mm ol/L) Final CO2 12/12/2022 05:04:00 25 22-32 (mmo l/L) Final Anion gap 12/12/2022 05:04:00 6 Below low normal 7-1 5 (mmol/L) Final Glucose 12/12/2022 05:04:00 192 Above high normal 70 -120 (mg/dL) Final Calcium 12/12/2022 05:04:00 8.3 Below low normal 8.4 -10.2 (mg/dL) Final Performing Location [facility] - [address] [place] [address]
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
--- OUTSIDE RECORDS SUMMARY | 2023-04-19 19:57 | External Medical Summary | Summary of Care ---
Author Name Unknown Organization [facility] Address [address] [place] [address] Phone [phone] Care Team Providers Care Nuclear Waste Management Engineer Name Role Phone Av Graves MD Primary Care Provider [phone] [phone] Reason for Visit * Reason Onset Date Comments Appointment 11/01/2022 3 day urgent Encounter Details Date Type Department Care Team Description 11/01/2022 Telephone Wound Care, [facility] [address] [place] [address] Mikael Caldera MD 27 [facility] [address] [place], [place] [phone] Appointment (3 day urgent) Allergies No known [...] goal of less than 8.0% ([facility]) Use up to 4 times a [...] Strip 5 01/10/2022 Active OneTouch Delica Plus [id number] s:Type 1 diabetes mellitus with hemoglobin A1c [...] willing to see this patient or even [place] wound clinic sooner? * Telephone Encounter - [...] 11/01/2022 3:16 PM EDT Rebecca called from [facility] requesting an urgent 3 day referral for a right index finger wound. (Osteo) Please advise. First available new wound appointment is 11/21/[address] Caldera. documented in this encounter Plan of Treatment Upcoming Encounters Date Type Specialty Care Team Description 11/07/2022 Office Visit Orthopedics Gigi Parson MD [address] [place], [place] [phone] 11/09/2022 Office Visit Wound Care Madi Lerma MD [address] [place] [address] 11/16/2022 Office Visit Family Medicine Av Graves MD 21 [facility] [place] [address] 11/21/2022 Office Visit Wound Care Mikael Caldera MD [address] [phone] 11/28/2022 Office Visit Ophthalmology Jorge Shepherd DO 21 [facility] [place] [phone] 12/27/2022 Office Visit Family Medicine Av Graves MD 21 [facility] [place] [address] Health Maintenance Due Date Last Done Comments DISCUSS TOBACCO CESSATION (REFER TO SMARTSET #5045) 1985 Hepatitis B (1 of 3 - [...] the patient have Health Care Power of Equine Pharmacology Technician? No Code Status History Code Status Date Activated Date Inactivated Comments Full Code 12/25/2021 1:35 PM 01/06/2022 6:52 PM This order reflects the patients wishes and were consensually agreed upon. Question Answer Comments Discussion of Advance Directives occurred with: Family Does the patient have a Living Will? No Does the patient have Health Care Power of Equine Pharmacology Technician? No Full Code 07/16/2015 10:39 AM [...] the patient have Health Care Power of Equine Pharmacology Technician? No Care Teams Nuclear Waste Management Engineer Relationship Specialty Start Date End Date Av Graves MD [address] [address] PCP - General Family Medicine 06/27/22 documented as of this encounter
--- OUTSIDE RECORDS SUMMARY | 2023-04-19 19:57 | External Medical Summary | Summary of Care ---
Author Name Unknown Organization [facility] Address [address] [place] [address] Phone [phone] Care Team Providers Care Supervisor Mill Name Role Phone Av Graves MD Primary Care Provider [phone] [phone] Reason for Visit * Reason Onset Date Comments Appointment 11/01/2022 3 day urgent Encounter Details Date Type Department Care Team Description 11/01/2022 Telephone Wound Care, [facility] [address] [place] [address] Mikael Caldera MD 27 [facility] [address] [place], [place] [phone] Appointment (3 day urgent) Allergies No known [...] hemoglobin A1c goal of less than 8.0% ([facility]) Use up to 4 times a [...] Strip 5 01/10/2022 Active OneTouch Delica Plus [id number] s:Type 1 diabetes mellitus with hemoglobin A1c [...] willing to see this patient or even [place] wound clinic sooner? * Telephone Encounter - [...] 11/01/2022 3:16 PM EDT Rebecca called from requesting an urgent 3 day referral for a right index finger wound. (Osteo) Please advise. First available new wound appointment is 11/21/[address] Caldera. documented in this encounter Plan of Treatment Upcoming Encounters Date Type Specialty Care Team Description 11/07/2022 Office Visit Orthopedics Gigi Parson MD [address] [place] [address] 11/09/2022 Office Visit Wound Care Madi Lerma MD [address] [place] [address] 11/16/2022 Office Visit Family Medicine Av Graves MD [address] [place] [address] 11/21/2022 Office Visit Wound Care Mikael Caldera MD [address] [address] [place] [phone] 11/28/2022 Office Visit Ophthalmology Jorge Shepherd DO [address] [address] 12/27/2022 Office Visit Family Medicine Av Graves MD [address] [address] Health Maintenance Due Date Last Done Comments DISCUSS TOBACCO CESSATION (REFER TO SMARTSET #5071) 1987 Hepatitis B (1 of 3 - [...] the patient have Health Care Power of Pet Store Merchandiser? No Code Status History Code Status Date Activated Date Inactivated Comments Full Code 12/25/2021 1:35 PM 01/06/2022 6:52 PM This order reflects the patients wishes and were consensually agreed upon. Question Answer Comments Discussion of Advance Directives occurred with: Family Does the patient have a Living Will? No Does the patient have Health Care Power of Pet Store Merchandiser? No Full Code 07/16/2015 10:39 AM 07/17/2015 [...] the patient have Health Care Power of Pet Store Merchandiser? No Care Teams Supervisor Mill Relationship Specialty Start Date End Date Av Graves MD [address] [facility] [address] [place] [address] PCP - General Family Medicine 06/27/22 documented as of this encounter
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
--- OUTSIDE RECORDS SUMMARY | 2023-04-19 19:58 | External Medical Summary ---
Author Name Unknown Address Unknown Organization K1F:[facility] - [address] [place] [address] Laboratory Report Ordering Provider Test Date Status CASTRO BRUNO 11/01/2022 05:39:00 Final Observation Date Value Abnormality Reference (Units ) Status BUN 11/01/2022 05:39:00 17 6-20 (mg/dL) Final Creatinine 11/01/2022 05:39:00 1.0 0.6-1.2 (mg/dL) Final Glomerular filtration rate/1.73 sq M.predicted [Volume Rate/Area] in Serum, Plasma or Blood by Creatinine-based formula (CKD-EPI) 11/01/2022 05:39:00 >90 >=60 (mL/min) Final eGFR is calculated based on the CKD-EPI 2020 equation SODIUM 11/01/2022 05:39:00 140 135-146 (m mol/L) Final Potassium 11/01/2022 05:39:00 3.8 3.5-5.1 (m mol/L) Final Cl 11/01/2022 05:39:00 108 Above high normal 98 -107 (mmol/L) Final CO2 11/01/2022 05:39:00 28 22-32 (mmo l/L) Final Anion gap 11/01/2022 05:39:00 4 Below low normal 7-1 5 (mmol/L) Final Glucose 11/01/2022 05:39:00 164 Above high normal 70 -120 (mg/dL) Final Calcium 11/01/2022 05:39:00 7.8 Below low normal 8.4 -10.2 (mg/dL) Final Performing Location [facility] - [address] [place] [address]
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
--- OUTSIDE RECORDS SUMMARY | 2023-04-19 19:58 | External Medical Summary | Summary of Care ---
Author Name Unknown Organization [facility] Address [address] [place] [address] Phone [phone] Care Team Providers Care Vehicle Modification Technician Name Role Phone Av Graves MD Primary Care Provider +1 [phone] Reason for Visit * Reason Onset Date Comments Appointment 11/01/2022 3 day urgent Encounter Details Date Type Department Care Team Description 11/01/2022 Telephone Wound Care, [facility] [address] [place] [address] Mikael Caldera MD [address] [place], [place] [phone] Appointment (3 day urgent) Allergies No known [...] 1 Kit 0 12/02/2021 Suspended Additional Information F[employer] Verio In Vitro Strip (Glucose Blood)Indications: Type [...] 100 Strip 5 01/10/2022 Suspended Additional Information FliibyTouch Delica Plus [id number] ns:Type 1 diabetes mellitus with hemoglobin A1c goal of less than 8.0% ([facility]) test blood sugars FOUR TIMES DAILY 100 [...] disorder, depressed ([facility]) Take 1 Tablet by mouth at [...] willing to see this patient or even [place] [facility] sooner? * Telephone Encounter - [...] Medicine Av Graves MD [address] [address] 11/21/2022 Office Visit Wound Care Mikael Caldera MD [address] [address] 11/28/2022 Office Visit Ophthalmology Jorge Shepherd DO [address] [address] 12/27/2022 Office Visit Family Medicine Av Graves MD [address] [address] Health Maintenance Due Date Last Done Comments DISCUSS TOBACCO CESSATION (REFER TO SMARTSET #3296) 1987 Hepatitis B (1 of 3 - [...] the patient have Health Care Power of Gold Assayer? No Code Status History Code Status Date Activated Date Inactivated Comments Full Code 12/25/2021 1:35 PM 01/06/2022 6:52 PM This order reflects the patients wishes and were consensually agreed upon. Question Answer Comments Discussion of Advance Directives occurred with: Family Does the patient have a Living Will? No Does the patient have Health Care Power of Gold Assayer? No Full Code 07/16/2015 10:39 AM 07/17/2015 [...] the patient have Health Care Power of Gold Assayer? No Care Teams Vehicle Modification Technician Relationship Specialty Start Date End Date Av Graves MD [address] [phone] PCP - General Family Medicine 06/27/22 documented as of this encounter
--- OUTSIDE RECORDS SUMMARY | 2023-04-19 19:58 | External Medical Summary ---
Author Name Unknown Address Unknown Organization : Laboratory Report Ordering Provider Test Date Status CASTRO BRUNO 10/31/2022 07:44:12 Final Observation Date Value Abnormality Reference (Units ) Status Glucose Point of Care 10/31/2022 07:44:12 71 70-120 (mg/dL) Final Performing Location
--- OUTSIDE RECORDS SUMMARY | 2023-04-19 19:58 | External Medical Summary | Summary of Care ---
Author Name Unknown Organization [facility] Address [address] [place] [address] Phone [phone] Care Team Providers Care Clinical Nutritionist Name Role Phone Av Graves MD Primary Care Provider +1 [phone] Reason for Visit * Reason Onset Date Comments Appointment 11/01/2022 3 day urgent Encounter Details Date Type Department Care Team Description 11/01/2022 Telephone Wound Care, [facility] [address] [place] [address] Mikael Caldera MD 27 [facility] [address] [place], [place] [phone] Appointment (3 day urgent) Allergies No known [...] of less than 8.0% ([facility]) Use up to 4 times a [...] Strip 5 01/10/2022 Active OneTouch Delica Plus [id number] s:Type 1 diabetes mellitus with hemoglobin A1c [...] encounter Miscellaneous Notes * Telephone Encounter - Mikael Caldera MD [...] willing to see this patient or even [place] [facility] sooner? * Telephone Encounter - [...] Office Visit Orthopedics Gigi Parson MD [address] [place] [address] 11/09/2022 Office Visit Wound Care Madi Lerma MD [address] [place] [address] 11/16/2022 Office Visit Family Medicine Av Graves MD 21 [facility] [place] [phone] 11/21/2022 Office Visit Wound Care Mikael Caldera MD [address] [address] [place] [address] 11/28/2022 Office Visit Ophthalmology Jorge Shepherd DO 21 [facility] [place] [address] 12/27/2022 Office Visit Family Medicine Av Graves MD 21 [facility] [place] [phone] Health Maintenance Due Date Last Done Comments DISCUSS TOBACCO CESSATION (REFER TO SMARTSET #9849) 1987 Hepatitis B (1 of 3 - [...] the patient have Health Care Power of Wine Fermenter? No Code Status History Code Status Date Activated Date Inactivated Comments Full Code 12/25/2021 1:35 PM 01/06/2022 6:52 PM This order reflects the patients wishes and were consensually agreed upon. Question Answer Comments Discussion of Advance Directives occurred with: Family Does the patient have a Living Will? No Does the patient have Health Care Power of Wine Fermenter? No Full Code 07/16/2015 10:39 AM 07/17/2015 [...] the patient have Health Care Power of Wine Fermenter? No Care Teams Clinical Nutritionist Relationship Specialty Start Date End Date Av Graves MD 21 [facility] [place] e[place]sser [phone] PCP - General Family Medicine 06/27/22 documented as of this encounter
--- OUTSIDE RECORDS SUMMARY | 2023-04-19 19:58 | External Medical Summary ---
Author Name Unknown Address Unknown Organization K1F:[facility]ATORY [facility] - [address] [place] [address] Laboratory Report Ordering Provider Test Date Status ISHMAILSACCOH 10/31/2022 06:01:00 Final Observation Date Value Abnormality Reference (Units ) Status Vancomycin, level 10/31/2022 06:01:00 10.4 10 .0-40.0 (ug/mL) Final Performing Location [facility] - [address] [place] [address]
--- OUTSIDE RECORDS SUMMARY | 2023-04-19 19:58 | External Medical Summary ---
Author Name Unknown Address Unknown Organization : Laboratory Report Ordering Provider Test Date Status CASTRO BRUNO 11/02/2022 07:29:41 Final Observation Date Value Abnormality Reference (Units ) Status Glucose Point of Care 11/02/2022 07:29:41 124 Above high normal 70-120 (mg/dL) Final Performing Location
--- OUTSIDE RECORDS SUMMARY | 2023-04-19 19:58 | External Medical Summary ---
Author Name Unknown Address Unknown Organization : Laboratory Report Ordering Provider Test Date Status CASTRO BRUNO 11/01/2022 16:34:22 Final Observation Date Value Abnormality Reference (Units ) Status Glucose Point of Care 11/01/2022 16:34:22 254 Above high normal 70-120 (mg/dL) Final Performing Location
--- OUTSIDE RECORDS SUMMARY | 2023-04-19 19:58 | External Medical Summary ---
Author Name Unknown Address Unknown Organization : Laboratory Report Ordering Provider Test Date Status CASTRO BRUNO 10/31/2022 21:12:08 Final Observation Date Value Abnormality Reference (Units ) Status Glucose Point of Care 10/31/2022 21:12:08 230 Above high normal 70-120 (mg/dL) Final Performing Location
--- OUTSIDE RECORDS SUMMARY | 2023-04-19 19:58 | External Medical Summary ---
Author Name Unknown Address Unknown Organization : Laboratory Report Ordering Provider Test Date Status CASTRO BRUNO 11/01/2022 21:22:08 Final Observation Date Value Abnormality Reference (Units ) Status Glucose Point of Care 11/01/2022 21:22:08 272 Above high normal 70-120 (mg/dL) Final Performing Location
--- OUTSIDE RECORDS SUMMARY | 2023-04-19 19:58 | External Medical Summary ---
Author Name Unknown Address Unknown Organization [facility] - [address] [place] [address] Laboratory Report Ordering Provider Test Date Status CASTRO BRUNO 10/31/2022 06:01:00 Final Observation Date Value Abnormality Reference (Units ) Status BUN 10/31/2022 06:01:00 20 6-20 (mg/dL) Final Creatinine 10/31/2022 06:01:00 1.1 0.6-1.2 (mg/dL) Final Glomerular filtration rate/1.73 sq M.predicted [Volume Rate/Area] in Serum, Plasma or Blood by Creatinine-based formula (CKD-EPI) 10/31/2022 06:01:00 >90 >=60 (mL/min) Final eGFR is calculated based on the CKD-EPI 2020 equation SODIUM 10/31/2022 06:01:00 139 135-146 (m mol/L) Final Potassium 10/31/2022 06:01:00 3.7 3.5-5.1 (m mol/L) Final Cl 10/31/2022 06:01:00 109 Above high normal 98 -107 (mmol/L) Final CO2 10/31/2022 06:01:00 27 22-32 (mmo l/L) Final Anion gap 10/31/2022 06:01:00 3 Below low normal 7-1 5 (mmol/L) Final Glucose 10/31/2022 06:01:00 106 70-120 (mg /dL) Final Calcium 10/31/2022 06:01:00 7.9 Below low normal 8.4 -10.2 (mg/dL) Final Performing Location [facility] - [address] [place] [address]
--- OUTSIDE RECORDS SUMMARY | 2023-04-19 19:58 | External Medical Summary ---
Author Name Unknown Address Unknown Organization : Laboratory Report Ordering Provider Test Date Status CASTRO BRUNO 11/01/2022 07:47:08 Final Observation Date Value Abnormality Reference (Units ) Status Glucose Point of Care 11/01/2022 07:47:08 161 Above high normal 70-120 (mg/dL) Final Performing Location
--- OUTSIDE RECORDS SUMMARY | 2023-04-19 19:58 | External Medical Summary ---
Author Name Unknown Address Unknown Organization K1F:LABORATORY [facility] - [address] [place] [address] Laboratory Report Ordering Provider Test Date Status CASTRO BRUNO 11/01/2022 05:39:00 Final Observation Date Value Abnormality Reference (Units ) Status WBC, Total 11/01/2022 05:39:00 6.19 4.00-10.80 (K/uL) Final RBC 11/01/2022 05:39:00 2.81 4.50-5.25 (M/uL) Final Hemoglobin 11/01/2022 05:39:00 9.0 Below low normal 14.0-16.8 (g/dL) Final HCT 11/01/2022 05:39:00 27.5 Below low normal 40.0-48.4 (%) Final MCV 11/01/2022 05:39:00 97.9 82.0-99.5 (fL) Final MCH 11/01/2022 05:39:00 32.0 27.0-34.0 (pg) Final MCHC 11/01/2022 05:39:00 32.7 32.0-36.0 (g/dL) Final RDW 11/01/2022 05:39:00 14.1 11.5-15.5 (%) Final Platelets 11/01/2022 05:39:00 350 140-400 (K/uL) Final MPV 11/01/2022 05:39:00 8.5 6.6-11.1 (fL) Final Nucleated erythrocytes/100 leukocytes [Ratio] in Blood by Automated count 11/01/2022 05:39:00 0 <=0 (/100 WBCs) Final Performing Location LABORATORY [facility] - [address] [place] [address]
--- OUTSIDE RECORDS SUMMARY | 2023-04-19 19:58 | External Medical Summary ---
Author Name Unknown Address Unknown Organization K1F:LABORATORY [facility] - [address] [place] [address] Laboratory Report Ordering Provider Test Date Status CASTRO BRUNO 10/31/2022 06:01:00 Final Observation Date Value Abnormality Reference (Units ) Status WBC, Total 10/31/2022 06:01:00 6.06 4.00-10.80 (K/uL) Final RBC 10/31/2022 06:01:00 2.79 4.50-5.25 (M/uL) Final Hemoglobin 10/31/2022 06:01:00 9.0 Below low normal 14.0-16.8 (g/dL) Final HCT 10/31/2022 06:01:00 27.9 Below low normal 40.0-48.4 (%) Final MCV 10/31/2022 06:01:00 100.0 82.0-99.5 (fL) Final MCH 10/31/2022 06:01:00 32.3 27.0-34.0 (pg) Final MCHC 10/31/2022 06:01:00 32.3 32.0-36.0 (g/dL) Final RDW 10/31/2022 06:01:00 14.3 11.5-15.5 (%) Final Platelets 10/31/2022 06:01:00 382 140-400 (K/uL) Final MPV 10/31/2022 06:01:00 8.8 6.6-11.1 (fL) Final Nucleated erythrocytes/100 leukocytes [Ratio] in Blood by Automated count 10/31/2022 06:01:00 0 <=0 (/100 WBCs) Final Performing Location LABORATORY [facility] - [address] [place] [address]
--- OUTSIDE RECORDS SUMMARY | 2023-04-19 19:58 | External Medical Summary ---
Author Name Unknown Address Unknown Organization : Laboratory Report Ordering Provider Test Date Status CASTRO BRUNO 10/30/2022 21:45:27 Final Observation Date Value Abnormality Reference (Units ) Status Glucose Point of Care 10/30/2022 21:45:27 183 Above high normal 70-120 (mg/dL) Final Performing Location
--- OUTSIDE RECORDS SUMMARY | 2023-04-19 19:58 | External Medical Summary | Summary of Care ---
Author Name Unknown Organization [facility] Address [address] [place] [address] Phone [phone] Care Team Providers Care Marine Designer Name Role Phone Av Graves MD Primary Care Provider [phone] Reason for Referral * Evaluate & Treat - Unlimited Visits (Within 10 days (routine)) - Pending Review Specialty Diagnoses / Procedures Referred By Contac t Referred To Contact Pharmacist / Pharmacy Diagnoses Type 1 diabetes mellitus with diabetic polyneuropathy (HCC) Type 1 diabetes mellitus with hemoglobin A1c goal of less than 8.0% (HCC) Andrew Love, formerly [facility] [address] [place] [address] Referral ID Status Reason Start Date Expiration Date Visits Requested Visits Authorized [id number] Pending Review Specialty Services Required 11/01/2022 99 99 Question Answer Referral Priority Within 10 days (routine) Department: Primary Care Reason for Referral: DM Target A1c: < 7 Comments Pharmacist Medication Therapy Management: Minimum frequency patient should be seen in person for medication management: as appropriate per clinical condition and patient status By my signature, I understand that my patient Gil Irby will have his medication therapy managed by the [facility] Medication Therapy [facility] ([facility]) per established policies, procedures, and protocols. I also certify that this referral may serve as an initiation of service for the management of drug therapy in the above noted patient. [facility] providers will be responsible for scheduling patient visits, obtaining appropriate laboratory studies, and adjusting medication management therapy per patient's need, in addition to those roles spelled out in the clinic policy, procedures, and drug management protocols. I understand that the service provided by the [facility] is voluntary and have informed patient that they can refuse the service at their discretion. I am aware that the [facility] Clinic will provide me with a copy of the patient encounter via my [employer]. I authorize the [facility] Clinic to carry out these activities on my behalf. I consider this program to be a necessary part of the patient's medical care. Andrew Love formerly [facility] Discharge Order Reason for Visit * Reason Comments Infection * Auth/Cert Specialty Diagnoses / Procedures Referred By Leticia t Referred To Contact Referral ID Status Reason Start Date Expiration Date Visits Re quested Visits Authorized [id number] [phone] Encounter Details Date Type Department Care Team Description 10/27/2022 - 11/02/2022 Hospital Encounter [facility] 4th Floor [address] [place], [place] [id number] Dot Koenig [address] [address] Gail Dean MD [address] [place] [id number] Marlon Banda MD [address] [place] [address] [id number] Amber Thakkar DO [address] [place] [id number] Denise Mcmillan MD [address] [place] [id number] Various: EKG,CDIQDC Allergies No known active allergiesdocumented as of this encounter (statuses as of 11/03/2022) Medications Medication Sig Dispensed Refills Start Date End Date Status Mirtazapine 15 MG Oral Tablet (Remeron) Take 1 Tablet by mouth in the morning. 0 2 Active Methadone HCl 10 MG/5ML Oral Solution Take 69.5 mL by mouth in the morning. 0 2 Active OneTouch Verio w/Device KitIndications:Typ e 1 diabetes mellitus with hemoglobin A1c goal of less than 8.0% (HCC) Use up to 4 times a day E11.9 1 Kit 0 2 Active OneTouch Verio In Vitro Strip (Glucose Blood)Indications: Type 1 diabetes mellitus with hemoglobin A1c goal of less than 8.0% (HCC) Use up to 4 times a day E11.9 100 Strip 11 2 Active Insulin Aspart 100 UNIT/ML Subcutaneous Solution Pen-injector (novoLOG) Check blood sugar before each meal and at bedtime then inject insulin aspart based on the sliding scale -- Glucose 150-200: 2 units, Glucose 201-250: 4 units, Glucose 251-300: 6 units, Glucose 301-350: 8 units, Glucose 351-400: 10 units, Glucose greater than 400: 12 units 0 2 Active Lantus SoloStar 100 UNIT/ML Subcutaneous Solution Pen-injector Inject 12 Units under the skin at bedtime. 0 2 Active BD Pen Needle Mini U/F 31G X 5 MM (Insulin Pen Needle)Indications :Type 1 diabetes mellitus with hemoglobin A1c goal of less than 8.0% (HCC) USE THREE TIMES DAILY WITH HUMALOG KWIK PEN 100 Each 11 2 Active OneTouch Verio In Vitro StripIndications:T ype 1 diabetes mellitus with hemoglobin A1c goal of less than 8.0% (HCC) Test as directed 1 Strip in the morning AND 1 Strip at noon AND 1 Strip in the evening. 100 Strip 5 2 Active OneTouch Delica Plus [id number] ns:Type 1 diabetes mellitus with hemoglobin A1c goal of less than 8.0% (HCC) test blood sugars FOUR TIMES DAILY 100 Each 5 2 Active ProAir HFA 108 (90 Base) MCG/ACT Inhalation Aerosol SolutionIndication s:Pneumonia of both upper lobes due to infectious organism Inhale by mouth 2 Puffs every 4 hours as needed for Wheezing. 18 g 1 2 Active Gabapentin 300 MG Oral Capsule (Neurontin) Take 1 Capsule by mouth in the morning and 1 Capsule at noon and 1 Capsule before bedtime. 0 3 Active QUEtiapine Fumarate 200 MG Oral Tablet (SEROquel)Indicati ons:Bipolar 1 disorder, depressed (HCC) Take 1 Tablet by mouth at bedtime. 90 Tablet 3 3 Active Levothyroxine Sodium 88 MCG Oral Tablet (Levoxyl) Take 1 Tablet by mouth daily first thing in the morning at least 30 minutes prior to breakfast or other medications - Do not start before November 02, 2022. 30 Tablet 0 3 Active Amoxicillin-Pot Clavulanate 875-125 MG Oral Tablet (Augmentin) Take 1 Tablet by mouth in the morning and 1 Tablet before bedtime. 60 Tablet 0 3 12/02/19 23 Active Sulfamethoxazole-T rimethoprim 800-160 MG Oral Tablet (Bactrim DS) Take 1 Tablet by mouth in the morning and 1 Tablet before bedtime. 60 Tablet 0 3 12/02/19 23 Active Insulin Glargine 100 UNIT/ML Subcutaneous Solution (Lantus) Inject under the skin 10 Units before bedtime. 1 Each 12 2 11/02/19 Discontinued(Me dication List Clean Up) Insulin Aspart 100 UNIT/ML Subcutaneous Solution (NovoLOG) Check blood sugar before each meal and at bedtime then inject insulin aspart based on the sliding scale -- Glucose 150-200: 2 units, Glucose 201-250: 4 units, Glucose 251-300: 6 units, Glucose 301-350: 8 units, Glucose 351-400: 10 units, Glucose greater than 400: 12 units 1 Each 12 2 11/02/19 Discontinued(Me dication List Clean Up) oxygen IN GAS Use as directed. 1 lpm @@rest and 4 lpm with exertion using as needed 0 11/02/19 23 Discontinued(Me dication List Clean Up) Sildenafil Citrate 25 MG Oral Tablet Take 1 Tablet by mouth as needed. 0 2 11/02/19 23 Discontinued(Ak dication List Clean Up) Levothyroxine Sodium 75 MCG Oral Tablet (Levoxyl)Indicatio ns:Acquired hypothyroidism Take 1 Tablet by mouth in the morning. (at least 30 min prior to breakfast or other meds). 30 Tablet 1 3 11/02/19 23 Discontinued documented as of this encounter [...] Sign Reading Time Taken Comments Blood Pressure 103/69 11/02/2022 7:27 AM EDT Pulse 88 11/02/2022 7:27 AM EDT Temperature 37.6 C (99.7 F) 11/02/2022 7:27 AM ED T Respiratory Rate 16 11/02/2022 7:27 AM EDT Oxygen Saturation 97% 11/02/2022 7:27 AM EDT Inhaled Oxygen Concentration - - Weight 57.9 kg (127 lb 10.3 oz) 11/02/2022 6:00 AM EDT Height 167.6 cm (5' 6") 10/27/2022 8:40 PM EDT Body Mass Index 20.6 10/27/2022 8:40 PM EDT documented in this encounter Functional [...] No 10/27/2022 documented as of this encounter Discharge Summaries * Denise Mcmillan MD - 11/02/2022 11:38 AM EDT Images from the original note were not included. [address] [address] Admission Date: 10/27/2022 Discharge Date: 11/02/2022 RECOMMENDED TO DO FOR NEXT PROVIDER(S): Needs to follow up with Hand specialist/Surgeon for definitive management of his hand infections Need to follow up with wound care clinic Need to follow up DM MTM clinic PCP to check thyroid function test in 6-8 weeks REASON(S) FOR MEDICATION CHANGE(S): Discharged on Augmentin 875/125mg BID and bactrim DS BID until follow up with surgeon/definitive treatment of hand infection/Osteomyelitis Levothyroxine increased to 88mcg daily DISPOSITION ON DISCHARGE: home with health services Active Hospital Problems Diagnosis *Principal Diagnosis - Osteomyelitis (HCC) Depression, major, recurrent, moderate (HCC) Acute cystitis with hematuria Hypokalemia Generalized weakness Nausea and vomiting Decreased oral intake Compulsive skin picking Severe protein-calorie malnutrition (HCC) Opioid use disorder, severe, on maintenance therapy (HCC) ADHD (attention deficit hyperactivity disorder), combined type Bipolar 1 disorder, depressed (HCC) Smoking Type 1 diabetes mellitus with diabetic polyneuropathy (HCC) Mixed dyslipidemia Type 1 diabetes mellitus with hemoglobin A1c goal of less than 8.0% (HCC) Neuropathy Hypothyroidism Resolved Hospital Problems Diagnosis Date Resolved Malnutrition of moderate degree ([facility]) 10/28/2022 ADMISSION HISTORY & PHYSICAL EXAM (focused): Per Admitting Provider Patient is a 37 yo gentleman with history of DM I, neuropathy, depression, opiod use, bipolar, HLD,ADHD, malnutrition, compulsive skin picking who came with history of two months right 5th finger infection which has been getting progressively worse. Patient was admitted two months ago in the ICU due to same infection and was dx with MRSA infection. Patient has been extremely weak, with very low appetite, chills, nausea, vomiting, arthralgia and has been losing weight. Patient came today because he is so weak that can barely walk. Denies fever, chills, nausea, vomiting, diarrhea, abdominal pain. Patient has not been on antibiotics lately. BP: 119 mmHg/86 mmHg (10/27/221899) Pulse: 82 (10/27/221899) Temp: 36.61 C (10/27/227) Resp: 18 (10/27/221899) SpO2: 98 % (10/27/221899) Constitutional: (+) cachectic, alert, oriented x 3 HEENT: normal: normocephalic, atraumatic; no masses, tenderness, or adenopathy Eyes: sclera and conjunctiva normal Neck: supple, normal range of motion CV: normal rate and rhythm, no murmur, gallops or rub Chest: normal respiratory effort, lungs clear to auscultation and percussion Abdomen: normal: soft, bowel sounds normal, no masses, tenderness or organomegaly Musculoskeletal: tenderness right 5th digit, swelling, foul odor Extremities: no clubbing, cyanosis, or edema, otherwise grossly normal, warm, and dry, Right 5th digits with wound, left hand with wound Skin: warm, dry: Neuro: alert, oriented to person, place, and time, normal mental status exam, reflexes normal and symmetric, sensory normal Psych: normal mood and affect, judgement normal, memory normal HOSPITAL COURSE (focused): On presentation, patient had WBC of 12.22, CRP 14, HR 95. He met SIRS criteria Hence, Possible sepsis due to Osteomyelitis of the hands. He had wounds on both hands (R>L). He has had these for sometime but has been worsening especially on right hand when compared with pictures in his chart XR of the right hand noted Persistent subluxation at the 5th proximal interphalangeal joint anterior displacement of the distal fracture fragment. Additional fracture lines are unchanged. He was started on IV vancomycin and zosyn MRI of both hands were done without contrast as patient refused contrast images MRI right hand wo co showed dislocation of the 5th proximal interphalangeal joint. Bone edema at the joint is a nonspecific finding which can be seen with trauma and osteomyelitis.Tear of the 5th extensor tendon MRI Left hand wo co showed erosion of the 5th proximal interphalangeal joint is consistent with prior septic arthritis and osteomyelitis. The lack of edema is consistent with treated infection. Tear of the 5th extensor tendon at the level of the proximal interphalangeal joint Surgery evaluated and noted that patient will benefit from Hand specialist surgeon as he will require some intricate/complex management. Ortho arranging Hand Specialist appointment Wound culture from 10/27/22 grew MRSA, bacteroides fragilis and beta strep group A ID recommended discharging on Augmentin 875/125mg BID and Bactrim DS BID until possible surgery by Hand specialist. Patient advised to continue antibiotics till management by Surgeon/instructed to stop. Patient is to continue wound dressing as instructed and follow up wound care clinic. He has poorly controlled diabetes mellitus with HbA1c of 12.8 on 10/28/22 He acknowledged he has not been managing his diabetes appropriately Provided DM education and counseling Continue home antidiabetic regimen for now He is to follow up with DM MTM Notified pharm to notify DM MTM to follow up Thyroid function test show poorly controlled hypothyroidism Levothyroxine had been increased to 88 mcg this admission. Had counseled patient about medication adherence as he does acknowledge poor adherence. Needs thyroid function tests in 6-8 weeks to monitor Operations & Procedures: none Complications: none applicable Significant Lab and Imaging Results: Lab results within last 7 days (see chart for full results) Units 11/01/22 0539 10/31/22 0601 10/30/22 0409 10/28/22 0759 10/27/22 1747 HGB g/dL 9.0* 9.0* 8.4* < > 10.8* HCT % 27.5* 27.9* 26.0* < > 31.6* WBC K/uL 6.19 6.06 7.68 < > 12.22* PLT K/uL 350 382 308 < > 428* Neutrophils % % -- -- -- -- 62.3 Monocytes % % -- -- -- -- 5.0 Eosinophils % % -- -- -- -- 0.6 < > = values in this interval not displayed. Lab results within last 7 days (see chart for full results) Units 11/01/22 0539 10/31/22 0601 10/30/22 0409 Sodium mmol/L 140 139 143 Potassium mmol/L 3.8 3.7 3.5 Chloride mmol/L 108* 109* 112* CO2 mmol/L 28 27 28 BUN mg/dL 17 20 18 Creatinine mg/dL 1.0 1.1 1.1 MRI HAND LEFT WO CONTRAST Final Result EXAM: MRI HAND LEFT WO CONTRAST HISTORY: Rule out osteomyelitis. Assess hand infections COMPARISON: Radiograph 06/29/2022 TECHNIQUE: Multiplanar multisequence MRI imaging left hand without contrast. FINDINGS: Soft tissue: There is a wound dorsally at the 5th PIP joint with mild soft tissue edema. Tendons: There is focal irregularity of the 5th extensor tendon at the level of the PIP joint. Bone and joint: There is gross erosion of bone at both sides of the 5th proximal interphalangeal joint; there is only minimal associated bone edema. IMPRESSION: Left: 1. Erosion of the 5th proximal interphalangeal joint is consistent with prior septic arthritis and osteomyelitis. The lack of edema is consistent with treated infection. 2. Tear of the 5th extensor tendon at the level of the proximal interphalangeal joint. MRI HAND RIGHT WO CONTRAST Final Result EXAM: MRI HAND RIGHT WO CONTRAST HISTORY: Rule [...] 3. Tear of the 5th extensor tendon. XR HAND 2 VIEWS Final Result PROCEDURE INFORMATION: Exam: XR Right Hand Exam date and time: 10/27/2022 10:23 PM Age: 37 years old Clinical indication: Other: Post-splint. Best images due to splint and PT unable to straighten fingers. TECHNIQUE: Imaging protocol: Radiologic exam of the right hand. Views: 1 or 2 views. COMPARISON: OT XR HAND 3 OR MORE VIEWS 06/29/2022 3:42 PM FINDINGS: Bones/joints: There is casting material in place which obscures fine bony and soft-tissue detail. Persistent subluxation at the 5th proximal interphalangeal joint anterior displacement of the distal fracture fragment. Additional fracture lines are unchanged. Soft tissues: Normal. IMPRESSION IMPRESSION: Persistent subluxation at the 5th proximal interphalangeal joint anterior displacement of the distal fracture fragment. Additional fracture lines are unchanged. THIS DOCUMENT HAS BEEN ELECTRONICALLY SIGNED BY MARTÍN NOLAND MD XR CHEST 1 VIEW Final Result PROCEDURE INFORMATION: Exam: XR Chest Exam date and time: 10/27/2022 6:05 PM Age: 37 years old Clinical indication: Other: Sepsis TECHNIQUE: Imaging protocol: Radiologic exam of the chest. Views: 1 view. COMPARISON: DX (CXR AP X-RENTERIA GRID, CHEST, CXR AP GRID Crosswise) 12/29/2021 6:42 AM FINDINGS: Lungs: There is some parenchymal scarring in the left mid lung. There is no dense parenchymal consolidation, pleural effusion, or pneumothorax. Pleural spaces: See "Lungs" finding. Heart/Mediastinum: Unremarkable. No cardiomegaly. Bones/joints: Unremarkable. IMPRESSION IMPRESSION: No acute findings. THIS DOCUMENT HAS BEEN ELECTRONICALLY SIGNED BY MARTÍN NOLAND MD XR FINGERS 2 OR MORE VIEWS Final Result PROCEDURE INFORMATION: Exam: XR Right Finger(s) Exam date and time: 10/27/2022 6:05 PM Age: 37 years old Clinical indication: Other: Infection in finger TECHNIQUE: Imaging protocol: Radiologic exam of the right fingers. Views: Minimum 2 views. COMPARISON: OT XR HAND 3 OR MORE VIEWS 06/29/2022 3:42 PM FINDINGS: Bones/joints: There is subluxation at the 5th proximal interphalangeal joint with associated soft tissue swelling. There is some questionable erosion at the base of the 5th middle phalanx which may reflect underlying infection. Soft tissues: See "Bones/joints" finding. IMPRESSION IMPRESSION: Subluxed 5th proximal interphalangeal joint. Underlying osseous erosion may reflect infection/osteomyelitis. THIS DOCUMENT HAS BEEN ELECTRONICALLY SIGNED BY MARTÍN NOLAND MD Results Pending at Discharge: Lab Results Pending at Discharge: None MEDICATION UPDATES AT DISCHARGE START taking these medications INSTRUCTIONS amoxicillin-clavulanate 875-125 [...] mouth in the morning. OneTouch Delica Plus [id number] Misc test blood sugars FOUR TIMES DAILY [...] 1 Tablet by mouth at bedtime. * This list has 2 medication(s) that are the same as other medications prescribed for you. Read thedirections carefully, and ask your doctor or other care provider to review them with you. SCHEDULED FOLLOW-UP: Future Appointments Appt Date/Time Provider Department 11/07/2022 8:15 AM Gigi Parson MD Orthopaedics [facility] 11/09/2022 10:10 AM [facility]/09/2022 10:10 AM Madi Lerma MD [facility] 11/16/2022 9:00 AM Av Graves MD Wound Care, [facility] 11/21/2022 8:40 AM Mikale Caldera MD Ophthalmology, [facility] 11/21/2022 8:40 AM Mikael Caldera MD [facility] 11/28/2022 7:45 AM Jorge Shepherd DO 12/27/2022 10:00 AM Av Graves MD Outpatient Follow Up Pharmacist Meds Therapy Mgmt Referral Op Other Information Indwelling Devices: LINES ALL Duration Peripheral Line Left;Lower Arm 18 Gauge 5 days Vital Signs (last recorded): Most Recent Systolic BP: 103 mmHg (11/02/22726) Most Recent Diastolic BP: 69 mmHg (11/02/22726) Pulse: 88 (11/02/22726) Resp: 16 (11/02/22726) Most Recent Temperature: 37.61 C (11/02/22726) Weight: 57.9 kg (127 lb 10.3 oz) (11/02/22 0600) SpO2: 97 % (11/02/22726) Allergies: Patient has no known allergies. Activity: as tolerated Diet: diabetic diet Code status (this admission): Full Code Discussion of adv directives occurred with - adult: Patient Does patient have living will: No Does patient have health care power of pants closer: No Condition on Discharge: stable Isolation status: None Cognition: normal HOSPITAL CONSULTS ORDERED: ORTHOPAEDICS CONSULT IP NUTRITION SERVICES (DIETITIAN) CONSULT IP CARE MANAGEMENT CONSULT IP REFERRING PHYSICIAN: Ref: [id number]] NO STREET ADDRESS AVAILABLE None (office) None (fax) PRIMARY CARE PROVIDER: PCP: Av Graves MD [address] [place] [address] / [place] [address] (office) [phone] (fax) Note: To contact a physician responsible for this patients hospital care, please call [facility] [phone]. I certify this patient is confined to the home and needs intermittent shelter care, physical therapy and/or speech therapy, or continues to need occupational therapy. The patient is under my care and I have authorized services on this plan of care. The clinical findings of decrease in functional mobility secondary to decreased strength, decreased balance, and decreased endurance due to recent hospitalization and overall medical condition support the need for home health, and the patientdemonstrates a considerable and taxing effort when attempting to leave the home. The patient had a [id number]-[id number] encounter with an allowed provider type on 11/02/22 and the encounter was related to theprimary reason for home health care. Under situations in which I am an acute/post acute facility physician who will not be following the patient's plan of care, I authorized services on this plan of care and I transfer the patient for plan of care certification to the primary care physician named below who will follow the patient and update the plan of care. Primary care physician Av Graves MD I spent a total of 45 minutes coordinating, documenting, and providing care for this patient excluding time spent in the performance of separately billed services. documented in this encounter Discharge Instructions * Discharge Instr - AVS* Denise Mcmillan MD - 11/01/2022 3:23 PM EDT Discharge Date: 11/02/22 The information below provides you with the instructions and the list of medications you need to betaking following discharge from the hospital. If you have any questions, please ask before leaving. If you have questions after leaving, you can reach us at the numbers below. YOUR HOSPITAL PROVIDERS: Discharging Provider: Denise Mcmillan MD Provider Department: Hospital Medicine To reach this Provider Sunday through Sunday (8:00 AM to 4:30 PM) for any questions or test results: Call [phone] For after-hours concerns: Call [phone] and have your provider paged, or the provider ip technology transactions attorney for the Department of Hospital Medicine paged. [...] available, you can go to your local [facility] or Urgent Care Clinic during their business hours. In an EMERGENCY situation: Call [phone] or go to the nearest emergency room. A BRIEF SUMMARY OF YOUR HOSPITAL STAY: You came to the hospital with: complaint of worsening hand wounds Your main diagnosis at discharge was: Osteomyelitis of both hands Poorly controlled diabetes Hypothyroidism Operations & Procedures performed: none Complications: none applicable Inpatient test results that are pending at discharge: none Advance Directive Documented: Advance Directive Does the Patient have an Advance Directive? No YOUR FOLLOW UP APPOINTMENTS: Primary Care Provider Information: PCP: Av Graves MD [facility] / [place] [phone] (office) [phone] (fax) An appointment was requested with your PCP (Av Graves MD) within 7 days. (Please take this form to this visit with your primary care physician.) You need the following studies in the future: Thyroid function test in 6-8 weeks INSTRUCTIONS: Diet: Carbohydrate-controlled diet Activity: No restrictions and As tolerated Please ensure follow up with Diabetes MTM clinic for better management of your diabetes. Please stop smoking and any illicit drug as we discussed Please ensure follow up with your Primary Doctor You need a follow up with hand specialist/surgeon. The surgeons are working on getting you an appointment. Your Primary Doctor can also help with that. You need to continue taking the Augmentin and bactrim (antibiotics) until follow up with the Hand surgeon. If you are going to run out of the meds before the appointment, please contact your Primary Doctor for refill. Please continue wound care as instructed and follow up with wound clinic as well Your levothyroxine was increased to 88mcg daily. You will need a thyroid function test by your Primary Doctor in 6-8 weeks Additional Instructions: - Call your primary care physician or seek medical attention if you have any medical problems. documented in this encounter Progress Notes * Denise Mcmillan MD - 11/01/2022 4:23 PM EDT Images from the original note were not included. [facility] [id number] INTERVAL HISTORY: 37-year-old male with PMH DM I, neuropathy, depression, opiod use, bipolar, HLD, ADHD, malnutrition, compulsive skin picking presents with 2 months of right 5th digit infection that progressively gotten worse Patient seen and examined. Denied pain in hands Denied fevers, chills, nausea, vomiting Denied cough, chest pain, shortness of breath. Objective Physical Exam Most Recent Vital Signs: BP: 110 mmHg/75 mmHg (11/01/22 1549) Pulse: 95 (11/01/22 1549) Temp: 36 C (11/01/22 1549) Resp: 16 (11/01/22 1549) SpO2: 97 % (11/01/22 154) Constitutional: no acute distress, (+) Thin HEENT: normal: normocephalic, atraumatic; no masses, tenderness, or adenopathy Eyes: PERRLA, sclera and conjunctiva normal CV: normal rate, normal rhythm, S1 S2 Chest: normal respiratory effort, lungs clear to auscultation and percussion Abdomen: normal: soft, bowel sounds normal, no masses, tenderness or organomegaly Musculoskeletal: Right hand and 5th finger bandaged. Scars over left dorsomedial hand. Neuro: alert, oriented to person, place, and time, normal mental status exam Psych: normal mood and affect, nonsuicidal, judgement normal Peripheral Line Left;Lower Arm 18 Gauge (Active) Number of days: 5 STUDIES: Labs and other studies reviewed with pertinent findings noted below: Lab results within last 7 days (see chart for full results) Units 11/01/22 0539 10/31/22 0601 10/30/22 0409 HGB g/dL 9.0* 9.0* 8.4* HCT % 27.5* 27.9* 26.0* WBC K/uL 6.19 6.06 7.68 PLT K/uL 350 382 308 Lab results within last 7 days (see chart for full results) Units 11/01/22 0539 10/31/22 0601 10/30/22 0409 Sodium mmol/L 140 139 143 Potassium mmol/L 3.8 3.7 3.5 Chloride mmol/L 108* 109* 112* CO2 mmol/L 28 27 28 BUN mg/dL 17 20 18 Creatinine mg/dL 1.0 1.1 1.1 MRI HAND LEFT WO CONTRAST Final Result EXAM: MRI HAND LEFT WO CONTRAST HISTORY: Rule out osteomyelitis. Assess hand infections COMPARISON: Radiograph 06/29/2022 TECHNIQUE: Multiplanar multisequence MRI imaging left hand without contrast. FINDINGS: Soft tissue: There is a wound dorsally at the 5th PIP joint with mild soft tissue edema. Tendons: There is focal irregularity of the 5th extensor tendon at the level of the PIP joint. Bone and joint: There is gross erosion of bone at both sides of the 5th proximal interphalangeal joint; there is only minimal associated bone edema. IMPRESSION: Left: 1. Erosion of the 5th proximal interphalangeal joint is consistent with prior septic arthritis and osteomyelitis. The lack of edema is consistent with treated infection. 2. Tear of the 5th extensor tendon at the level of the proximal interphalangeal joint. MRI HAND RIGHT WO CONTRAST Final Result EXAM: MRI HAND RIGHT WO CONTRAST HISTORY: Rule [...] 3. Tear of the 5th extensor tendon. XR HAND 2 VIEWS Final Result PROCEDURE INFORMATION: Exam: XR Right Hand Exam date and time: 10/27/2022 10:23 PM Age: 37 years old Clinical indication: Other: Post-splint. Best images due to splint and PT unable to straighten fingers. TECHNIQUE: Imaging protocol: Radiologic exam of the right hand. Views: 1 or 2 views. COMPARISON: OT XR HAND 3 OR MORE VIEWS 06/29/2022 3:42 PM FINDINGS: Bones/joints: There is casting material in place which obscures fine bony and soft-tissue detail. Persistent subluxation at the 5th proximal interphalangeal joint anterior displacement of the distal fracture fragment. Additional fracture lines are unchanged. Soft tissues: Normal. IMPRESSION IMPRESSION: Persistent subluxation at the 5th proximal interphalangeal joint anterior displacement of the distal fracture fragment. Additional fracture lines are unchanged. THIS DOCUMENT HAS BEEN ELECTRONICALLY SIGNED BY MARTÍN NOLAND MD XR CHEST 1 VIEW Final Result PROCEDURE INFORMATION: Exam: XR Chest Exam date and time: 10/27/2022 6:05 PM Age: 37 years old Clinical indication: Other: Sepsis TECHNIQUE: Imaging protocol: Radiologic exam of the chest. Views: 1 view. COMPARISON: DX (CXR AP X-RENTERIA GRID, CHEST, CXR AP GRID Crosswise) 12/29/2021 6:42 AM FINDINGS: Lungs: There is some parenchymal scarring in the left mid lung. There is no dense parenchymal consolidation, pleural effusion, or pneumothorax. Pleural spaces: See "Lungs" finding. Heart/Mediastinum: Unremarkable. No cardiomegaly. Bones/joints: Unremarkable. IMPRESSION IMPRESSION: No acute findings. THIS DOCUMENT HAS BEEN ELECTRONICALLY SIGNED BY MARTÍN NOLAND MD XR FINGERS 2 OR MORE VIEWS Final Result PROCEDURE INFORMATION: Exam: XR Right Finger(s) Exam date and time: 10/27/2022 6:05 PM Age: 37 years old Clinical indication: Other: Infection in finger TECHNIQUE: Imaging protocol: Radiologic exam of the right fingers. Views: Minimum 2 views. COMPARISON: OT XR HAND 3 OR MORE VIEWS 06/29/2022 3:42 PM FINDINGS: Bones/joints: There is subluxation at the 5th proximal interphalangeal joint with associated soft tissue swelling. There is some questionable erosion at the base of the 5th middle phalanx which may reflect underlying infection. Soft tissues: See "Bones/joints" finding. IMPRESSION IMPRESSION: Subluxed 5th proximal interphalangeal joint. Underlying osseous erosion may reflect infection/osteomyelitis. THIS DOCUMENT HAS BEEN ELECTRONICALLY SIGNED BY MARTÍN NOLAND MD Assessment and Plan IMPRESSION : Principal Problem: Osteomyelitis (HCC) Active Problems: Depression, major, recurrent, moderate (HCC) Hypothyroidism Type 1 diabetes mellitus with hemoglobin A1c goal of less than 8.0% (HCC) Neuropathy Mixed dyslipidemia ADHD (attention deficit hyperactivity disorder), combined type Bipolar 1 disorder, depressed (HCC) Smoking Type 1 diabetes mellitus with diabetic polyneuropathy (HCC) Severe protein-calorie malnutrition (HCC) Opioid use disorder, severe, on maintenance therapy (HCC) Compulsive skin picking Acute cystitis with hematuria Hypokalemia Generalized weakness Nausea and vomiting Decreased oral intake Resolved Problems: Malnutrition of moderate degree (HCC) I have examined the patient and consistent with the dietitian's findings found malnutrition presentof Severe (10/28/22 1406) degree. This is consistent with such due to Muscle loss;Fat loss;Inadequate energy intake (10/28/22 1406). I have also reviewed and agree with the dietitian's plan of care which include Oral nutritional supplement ordered/adjusted (10/28/22 1406). DIFFERENTIAL AND PLAN: Reviewed XR. MRI right hand showed dislocation of the 5th proximal interphalangeal joint. Bone edema at the joint is a nonspecific finding which can be seen with trauma and osteomyelitis.Tear of the 5th extensor tendon MRI Left hand showed erosion of the 5th proximal interphalangeal joint is consistent with prior septic arthritis and osteomyelitis. The lack of edema is consistent with treated infection. Tear of the5th extensor tendon at the level of the proximal interphalangeal joint Wound culture from 10/27/22 grew MRSA, bacteroides fragilis and beta strep group A Discussed with Surgeon today Dr Martinez. He noted that patient will benefit from evaluation and management by a hand specialist surgeon. Discussed with ID Dr Sparks. Reviewed the patient. He recommend discharge on Augmentin 875/125mg BIDand Bactrim DS BID until follow up with surgeon outpatient Dr Martinez is working on getting patient appointment with a hand surgeon. Continue wound care Thyroid function test show poorly controlled hypothyroidism Levothyroxine had been increased to 88 mcg this admission. Had counseled patient about medication adherence as he does acknowledge poor adherence. Needs thyroid function tests in 6-8 weeks to monitor Poorly controlled DM. Notified pharm to notify DM MTM to follow up Patient counseled about this Continue insulin protocol while inpatient. Urine culture grew MRSA. Denied urinary symptoms Likely asymptomatic bacteruria However if true infection, his current antibiotics for his OM will cover that too Continue methadone Plan for dc tomorrow AM once all arrangements are made and meds/supplies provided PHARMACOLOGIC VTE PROPHYLAXIS: Enoxaparin CODE STATUS: Full Code EXPECTED DISCHARGE DATE: 11/01/2022 I spent a total of 40 minutes coordinating, documenting, and providing care for this patient excluding time spent in the performance of separately billed services or time spent by another provider/QHP. * Andrew Love RPh - 11/01/2022 3:19 PM EDT PHARMACY DISCHARGE MEDICATION RECONCILIATION REVIEW [address] [address] Name: Gil Irby Location: [facility] [id number]-[id number] Date: 11/01/2022 Time: 3:19 PM This discharge medication reconciliation was reviewed by a pharmacist and no corrections or interventions were required. The discharge prescriptions were sent to [facility] [address] as the patient is enrolled in the Bedside Rx program If you have any additional questions, please contact inpatient pharmacy at [phone] or "[facility]" TT role. * Darlene Sloan LPN - 11/01/2022 2:09 PM EDT Images from the original note were not included. Pt was seen for assistance w/ dressing change at the request of Samantha Holman PA-C. Rt hand was undressed. Cleansed w/ soap & water. Measured and pictured for chart. Redressed w/ aquacel Ag andDSD. Splint applied and secured using em wrap. Pt tolerated well. Rt 5th digit has a full thickness wound originated from a burn pt had picked at. Hypergranulation w/ some mild sloughing is present in wound bed. PIP joint of Rt 5th finger is instable and loose when mild manipulation is done to remove dressing. Mild serous drainage, no purulence or odor. 4th finger was macerated from old dressing. Dry scabbed areas over the 4th and 5th knuckles. Overall from previous pictures reviewed wound appears to be improving. Would recommend removing em wrap and splint daily to examine skin and changing dressing every other day with Aquacel Ag and DSD or non-adherent equivalent. May cleanse w/ mild soap & water. Would also apply a light layer of vaseline ointment over the dry scabbed areas to soften the skin. Discussed signs of infection and when to call the doctor upon discharge. Pt verbalized understanding. Coordinated care w/ Samantha Holman PA-c Call or TT w/ any questions or concerns. Darlene Sloan LPN,WC,OMS Licensed Practical Nurse, Wound Care Certified Wound Care Resource Nurse 11/01/22 1400 * Denise Mcmillan MD - 10/31/2022 12:07 PM EDT Images from the original note were not included. [facility] [id number] INTERVAL HISTORY: 37-year-old male with PMH DM I, neuropathy, depression, opiod use, bipolar, HLD, ADHD, malnutrition, compulsive skin picking presents with 2 months of right 5th digit infection that progressively gotten worse Patient seen and examined. Denied pain in hands today Denied fevers, chills, nausea, vomiting Denied cough, chest pain, shortness of breath. Objective Physical Exam Most Recent Vital Signs: BP: 98 mmHg/65 mmHg (10/31/22741) Pulse: 86 (10/31/22741) Temp: 35.89 C (10/31/22741) Resp: 16 (10/31/22741) SpO2: 97 % (10/31/22741) Constitutional: no acute distress, (+) Thin HEENT: normal: normocephalic, atraumatic; no masses, tenderness, or adenopathy Eyes: PERRLA, sclera and conjunctiva normal CV: normal rate, normal rhythm, S1 S2 Chest: normal respiratory effort, lungs clear to auscultation and percussion Abdomen: normal: soft, bowel sounds normal, no masses, tenderness or organomegaly Musculoskeletal: Right hand and 5th finger bandaged. Scars over left dorsomedial hand. Neuro: alert, oriented to person, place, and time, normal mental status exam Psych: normal mood and affect, nonsuicidal, judgement normal Peripheral Line Left;Lower Arm 18 Gauge (Active) Number of days: 4 STUDIES: Labs and other studies reviewed with pertinent findings noted below: Lab results within last 7 days (see chart for full results) Units 10/31/22 0601 10/30/22 0409 10/29/22 0725 HGB g/dL 9.0* 8.4* 9.6* HCT % 27.9* 26.0* 29.9* WBC K/uL 6.06 7.68 8.83 PLT K/uL 382 308 385 Lab results within last 7 days (see chart for full results) Units 10/31/22 0601 10/30/22 0409 10/29/22 0725 Sodium mmol/L 139 143 135 Potassium mmol/L 3.7 3.5 4.1 Chloride mmol/L 109* 112* 104 CO2 mmol/L 27 28 23 BUN mg/dL 20 18 16 Creatinine mg/dL 1.1 1.1 1.1 MRI HAND RIGHT WO CONTRAST Final Result EXAM: MRI HAND RIGHT WO CONTRAST HISTORY: Rule [...] 3. Tear of the 5th extensor tendon. XR HAND 2 VIEWS Final Result PROCEDURE INFORMATION: Exam: XR Right Hand Exam date and time: 10/27/2022 10:23 PM Age: 37 years old Clinical indication: Other: Post-splint. Best images due to splint and PT unable to straighten fingers. TECHNIQUE: Imaging protocol: Radiologic exam of the right hand. Views: 1 or 2 views. COMPARISON: OT XR HAND 3 OR MORE VIEWS 06/29/2022 3:42 PM FINDINGS: Bones/joints: There is casting material in place which obscures fine bony and soft-tissue detail. Persistent subluxation at the 5th proximal interphalangeal joint anterior displacement of the distal fracture fragment. Additional fracture lines are unchanged. Soft tissues: Normal. IMPRESSION IMPRESSION: Persistent subluxation at the 5th proximal interphalangeal joint anterior displacement of the distal fracture fragment. Additional fracture lines are unchanged. THIS DOCUMENT HAS BEEN ELECTRONICALLY SIGNED BY MARTÍN NOLAND MD XR CHEST 1 VIEW Final Result PROCEDURE INFORMATION: Exam: XR Chest Exam date and time: 10/27/2022 6:05 PM Age: 37 years old Clinical indication: Other: Sepsis TECHNIQUE: Imaging protocol: Radiologic exam of the chest. Views: 1 view. COMPARISON: DX (CXR AP X-RENTERIA GRID, CHEST, CXR AP GRID Crosswise) 12/29/2021 6:42 AM FINDINGS: Lungs: There is some parenchymal scarring in the left mid lung. There is no dense parenchymal consolidation, pleural effusion, or pneumothorax. Pleural spaces: See "Lungs" finding. Heart/Mediastinum: Unremarkable. No cardiomegaly. Bones/joints: Unremarkable. IMPRESSION IMPRESSION: No acute findings. THIS DOCUMENT HAS BEEN ELECTRONICALLY SIGNED BY MARTÍN NOLAND MD XR FINGERS 2 OR MORE VIEWS Final Result PROCEDURE INFORMATION: Exam: XR Right Finger(s) Exam date and time: 10/27/2022 6:05 PM Age: 37 years old Clinical indication: Other: Infection in finger TECHNIQUE: Imaging protocol: Radiologic exam of the right fingers. Views: Minimum 2 views. COMPARISON: OT XR HAND 3 OR MORE VIEWS 06/29/2022 3:42 PM FINDINGS: Bones/joints: There is subluxation at the 5th proximal interphalangeal joint with associated soft tissue swelling. There is some questionable erosion at the base of the 5th middle phalanx which may reflect underlying infection. Soft tissues: See "Bones/joints" finding. IMPRESSION IMPRESSION: Subluxed 5th proximal interphalangeal joint. Underlying osseous erosion may reflect infection/osteomyelitis. THIS DOCUMENT HAS BEEN ELECTRONICALLY SIGNED BY MARTÍN NOLAND MD MRI HAND LEFT WO CONTRAST (Results Pending) Assessment and Plan IMPRESSION : Principal Problem: Osteomyelitis (HCC) Active Problems: Depression, major, recurrent, moderate (HCC) Hypothyroidism Type 1 diabetes mellitus with hemoglobin A1c goal of less than 8.0% (HCC) Neuropathy Mixed dyslipidemia ADHD (attention deficit hyperactivity disorder), combined type Bipolar 1 disorder, depressed (HCC) Smoking Type 1 diabetes mellitus with diabetic polyneuropathy (HCC) Severe protein-calorie malnutrition (HCC) Opioid use disorder, severe, on maintenance therapy (HCC) Compulsive skin picking Acute cystitis with hematuria Hypokalemia Generalized weakness Nausea and vomiting Decreased oral intake Resolved Problems: Malnutrition of moderate degree (HCC) I have examined the patient and consistent with the dietitian's findings found malnutrition presentof Severe (10/28/22 1406) degree. This is consistent with such due to Muscle loss;Fat loss;Inadequate energy intake (10/28/22 1406). I have also reviewed and agree with the dietitian's plan of care which include Oral nutritional supplement ordered/adjusted (10/28/22 1406). DIFFERENTIAL AND PLAN: Currently on vanc and zosyn ID recs noted Reviewed XR. MRI right hand was ordered with contrast However, patient had declined further imaging w/co when he was down in MRI suite. He stated he could not take any more imaging so noncontrast studies were done. I explained that contrast would give more information but patient is not interested in any more scan w/co Will follow up with ID once full report on both MRI of both hand are back Surgery eval noted. No surgical intervention at the time. Recommended outpatient follow up BP runs in 90s. MAP still above 65. Monitor Had hypoglycemia on 10/30/22. Reduced HS lantus Monitor. Continue sliding scale. Thyroid function test show poorly controlled hypothyroidism Levothyroxine had been increased to 88 mcg this admission. Had counseled patient about medication adherence as he does acknowledge poor adherence. Needs thyroid function tests in 6-8 weeks to monitor Continue methadone PHARMACOLOGIC VTE PROPHYLAXIS: Enoxaparin CODE STATUS: Full Code EXPECTED DISCHARGE DATE: 11/02/2022 I spent a total of 45 minutes coordinating, documenting, and providing care for this patient excluding time spent in the performance of separately billed services or time spent by another provider/QHP. * Dimple Sierra, formerly [facility] - 10/31/2022 7:45 AM EDT PHARMACY PHARMACOKINETIC CONSULT [address] [address] Name: Gil Irby Location: [facility] [id number]-4017/W Date: 10/31/2022 Time: 7:44 AM Requesting service: Hospitalist Bacteria being treated: MRSA Source of infection: Osteomyelitis Medication(s) being managed: Vancomycin Pharmacokinetic calculations will be performed utilizing [employer] software. Lab information: Lab Results Component Value Date/Time WBC 6.06 10/31/2022 06:01 AM WBC 7.68 10/30/2022 04:09 AM WBC 8.83 10/29/2022 07:25 AM WBC 9.39 10/28/2022 07:59 AM WBC 12.22 (H) 10/27/2022 05:47 PM WBC 9.27 12/21/2019 01:49 PM WBC 9.59 07/17/2015 06:03 AM WBC 19.41 (H) 07/16/2015 10:10 AM WBC 10.42 07/16/2015 07:00 AM WBC 8.70 12/07/2014 05:55 PM Lab Results Component Value Date/Time BUN 20 10/31/2022 06:01 AM BUN 18 10/30/2022 04:09 AM BUN 16 10/29/2022 07:25 AM BUN 12 10/28/2022 07:59 AM BUN 14 10/27/2022 05:47 PM BUN 22 (H) 12/21/2019 01:49 PM BUN 10 07/17/2015 06:03 AM BUN 8 07/16/2015 10:10 AM BUN 9 07/16/2015 07:00 AM BUN 9 12/07/2014 07:41 PM Lab Results Component Value Date/Time CREAT 1.1 10/31/2022 06:01 AM CREAT 1.1 10/30/2022 04:09 AM CREAT 1.1 10/29/2022 07:25 AM CREAT 0.8 10/28/2022 07:59 AM CREAT 0.9 10/27/2022 05:47 PM CREAT 1.1 12/21/2019 01:49 PM CREAT 0.7 07/17/2015 06:03 AM CREAT 0.7 07/16/2015 10:10 AM CREAT 0.6 07/16/2015 07:00 AM CREAT 0.8 12/07/2014 07:41 PM ANTIMICROBIALS GIVEN (last 28 hours) Date/Time Action Medication Dose Rate 10/31/22 0640 New Bag Vancomycin (Vancocin) 1500 mg in NSS 250 mL ivpb LOCKED DOSE 1,500 mg 183.33 mL/hr 10/31/22 0031 New Bag piperacillin-tazobactam (ZOSYN) 4.5 g in D5W 100 mL (FOUR hour infusion) 4.5 g 25 mL/hr 10/30/22 1646 New Bag piperacillin-tazobactam (ZOSYN) 4.5 g in D5W 100 mL (FOUR hour infusion) 4.5 g 25 mL/hr 10/30/22 0825 New Bag piperacillin-tazobactam (ZOSYN) 4.5 g in D5W 100 mL (FOUR hour infusion) 4.5 g 25 mL/hr 10/30/22 0644 New Bag Vancomycin (Vancocin) 1500 mg in NSS 250 mL ivpb LOCKED DOSE 1,500 mg 183.33 mL/hr Wt Readings from Last 1 Encounters: 10/31/22 51.5 kg (113 lb 8 oz) Levels to date: Lab Results Component Value Date/Time VANCORANDOM 10.4 10/31/2022 06:01 AM VANCORANDOM 25.6 10/29/2022 07:25 AM Impression: Gil Irby is a/an 37 year old male receiving vancomycin therapy. The pharmacokinetic target for therapy is AUC24,SS (range) 400-600mg/L.hr Assessment and Plan: Recent measured serum creatinine values: 10/31/2022 06:01 1.1 mg/dL 10/30/2022 04:09 1.1 mg/dL 10/29/2022 07:25 1.1 mg/dL Assessment: Analysis of the most recent level(s) using Sols gives the following patient-specific pharmacokinetic parameters: CL: 3.05 L/hr V: 42.6 L T1/2: 12.4 hours Using these values, the current regimen of Vancomycin 1500 mg IV every 24 hours is predicted to result in a steady-state trough of 12 mg/L and AUC24 of 490 mg/L.hr. At this time we recommend a regimen of 1500 mg IV every 24 hours, which is predicted to result in a steady-state trough of 12 mg/L [id number] of 490 mg/L.hr. Recommendations: - Vancomycin 1500 mg IV every 24 hours - Obtain Vancomycin level 11/03 at 0600 - Continue to monitor serum creatinine Pharmacy will continue to follow and dose as appropriate by renal function, culture results, infectious disease input, and overall clinical status. Contact the Pharmacy at extension [phone] if there are any questions. Dimple Sierra RPh * Rubina Meneses RN - 10/31/2022 12:17 AM EDT Nursing Critical Care Response Note [facility] [address] Name: Gil Irby Date: 10/31/2022 Time: 12:17 AM Event Location: [facility], Unit Area: 4B In the role of the Critical Response Nurse I was involved in the care of this patient. Method of notification to the critical care response nurse: Follow up previous notification Reason for notification or follow up: Hypotension Observations/Interventions/Assessment: Pt. tends to have soft BPs overnight. Received a bolus previous two nights. Tonight BP is 102/63. No bolus needed at this time. Outcome/Plan At this time CRN will stop following up on patient. Bps have remained stable. No need to continue following at this point but if any questions or concerns arise please reach out! * Denise Mcmillan MD - 10/30/2022 11:38 AM EDT Images from the original note were not included. [facility] [id number] INTERVAL HISTORY: 37-year-old male with PMH DM I, neuropathy, depression, opiod use, bipolar, HLD, ADHD, malnutrition, compulsive skin picking presents with 2 months of right 5th digit infection that progressively gotten worse Patient seen and examined. Reported worsening right 5th finger wound infection with occasional purulent drainage Denied pain today. Denied fevers, chills, nausea, vomiting Denied cough, chest pain, shortness of breath. Patient reports he smokes meth (last use was about 1 day before admission). Denied heroin/opioid use. On methadone for past opioid abuse Reports smoking half pack of cigarette per day Objective Physical Exam Most Recent Vital Signs: BP: 94 mmHg/67 mmHg (10/30/22741) Pulse: 75 (10/30/22741) Temp: 36.28 C (10/30/22741) Resp: 16 (10/30/22741) SpO2: 97 % (10/30/22741) Constitutional: no acute distress, (+) Thin HEENT: normal: normocephalic, atraumatic; no masses, tenderness, or adenopathy Eyes: PERRLA, sclera and conjunctiva normal CV: normal rate, normal rhythm, S1 S2 Chest: normal respiratory effort, lungs clear to auscultation and percussion Abdomen: normal: soft, bowel sounds normal, no masses, tenderness or organomegaly Musculoskeletal: Right hand and 5th finger bandaged. Scars over left dorsomedial hand. Neuro: alert, oriented to person, place, and time, normal mental status exam Psych: normal mood and affect, nonsuicidal, judgement normal Peripheral Line Left;Lower Arm 18 Gauge (Active) Number of days: 3 Peripheral Line Left;Upper Arm 18 Gauge (Active) Number of days: 3 STUDIES: Labs and other studies reviewed with pertinent findings noted below: Lab results within last 7 days (see chart for full results) Units 10/30/22 0409 10/29/22 0725 10/28/22 0759 HGB g/dL 8.4* 9.6* 9.4* HCT % 26.0* 29.9* 27.4* WBC K/uL 7.68 8.83 9.39 PLT K/uL 308 385 368 Lab results within last 7 days (see chart for full results) Units 10/30/22 0409 10/29/22 0725 10/28/22 0759 Sodium mmol/L 143 135 140 Potassium mmol/L 3.5 4.1 3.3* Chloride mmol/L 112* 104 106 CO2 mmol/L 28 23 30 BUN mg/dL 18 16 12 Creatinine mg/dL 1.1 1.1 0.8 XR HAND 2 VIEWS Final Result PROCEDURE INFORMATION: Exam: XR Right Hand Exam date and time: 10/27/2022 10:23 PM Age: 37 years old Clinical indication: Other: Post-splint. Best images due to splint and PT unable to straighten fingers. TECHNIQUE: Imaging protocol: Radiologic exam of the right hand. Views: 1 or 2 views. COMPARISON: OT XR HAND 3 OR MORE VIEWS 06/29/2022 3:42 PM FINDINGS: Bones/joints: There is casting material in place which obscures fine bony and soft-tissue detail. Persistent subluxation at the 5th proximal interphalangeal joint anterior displacement of the distal fracture fragment. Additional fracture lines are unchanged. Soft tissues: Normal. IMPRESSION IMPRESSION: Persistent subluxation at the 5th proximal interphalangeal joint anterior displacement of the distal fracture fragment. Additional fracture lines are unchanged. THIS DOCUMENT HAS BEEN ELECTRONICALLY SIGNED BY MARTÍN NOLAND MD XR CHEST 1 VIEW Final Result PROCEDURE INFORMATION: Exam: XR Chest Exam date and time: 10/27/2022 6:05 PM Age: 37 years old Clinical indication: Other: Sepsis TECHNIQUE: Imaging protocol: Radiologic exam of the chest. Views: 1 view. COMPARISON: DX (CXR AP X-RENTERIA GRID, CHEST, CXR AP GRID Crosswise) 12/29/2021 6:42 AM FINDINGS: Lungs: There is some parenchymal scarring in the left mid lung. There is no dense parenchymal consolidation, pleural effusion, or pneumothorax. Pleural spaces: See "Lungs" finding. Heart/Mediastinum: Unremarkable. No cardiomegaly. Bones/joints: Unremarkable. IMPRESSION IMPRESSION: No acute findings. THIS DOCUMENT HAS BEEN ELECTRONICALLY SIGNED BY MARTÍN NOLAND MD XR FINGERS 2 OR MORE VIEWS Final Result PROCEDURE INFORMATION: Exam: XR Right Finger(s) Exam date and time: 10/27/2022 6:05 PM Age: 37 years old Clinical indication: Other: Infection in finger TECHNIQUE: Imaging protocol: Radiologic exam of the right fingers. Views: Minimum 2 views. COMPARISON: OT XR HAND 3 OR MORE VIEWS 06/29/2022 3:42 PM FINDINGS: Bones/joints: There is subluxation at the 5th proximal interphalangeal joint with associated soft tissue swelling. There is some questionable erosion at the base of the 5th middle phalanx which may reflect underlying infection. Soft tissues: See "Bones/joints" finding. IMPRESSION IMPRESSION: Subluxed 5th proximal interphalangeal joint. Underlying osseous erosion may reflect infection/osteomyelitis. THIS DOCUMENT HAS BEEN ELECTRONICALLY SIGNED BY MARTÍN NOLAND MD Assessment and Plan IMPRESSION : Principal Problem: Osteomyelitis (HCC) Active Problems: Depression, major, recurrent, moderate (HCC) Hypothyroidism Type 1 diabetes mellitus with hemoglobin A1c goal of less than 8.0% (HCC) Neuropathy Mixed dyslipidemia ADHD (attention deficit hyperactivity disorder), combined type Bipolar 1 disorder, depressed (HCC) Smoking Type 1 diabetes mellitus with diabetic polyneuropathy (HCC) Severe protein-calorie malnutrition (HCC) Opioid use disorder, severe, on maintenance therapy (HCC) Compulsive skin picking Acute cystitis with hematuria Hypokalemia Generalized weakness Nausea and vomiting Decreased oral intake Resolved Problems: Malnutrition of moderate degree (HCC) I have examined the patient and consistent with the dietitian's findings found malnutrition presentof Severe (10/28/22 1406) degree. This is consistent with such due to Muscle loss;Fat loss;Inadequate energy intake (10/28/22 1406). I have also reviewed and agree with the dietitian's plan of care which include Oral nutritional supplement ordered/adjusted (10/28/22 1406). DIFFERENTIAL AND PLAN: Currently on vanc and zosyn Will appreciate ID input with respect to antibiotics management Reviewed XR. Get MRI for better assessment Surgery eval noted. No surgical intervention at this time. Recommended outpatient follow up BP runs in 90s. MAP still above 65. Monitor Hypoglycemia this morning. Reduced HS lantus Monitor. Continue sliding scale. Will need readjustments as needed Thyroid function test show poorly controlled hypothyroidism Levothyroxine had been increased to 88 mcg this admission. Counseled patient about medication adherence as he does acknowledge poor adherence. Needs thyroid function tests in 6-8 weeks to monitor Provided counseling regarding smoking cessation and stopping use of methamphetamine. Continue methadone PHARMACOLOGIC VTE PROPHYLAXIS: Enoxaparin CODE STATUS: Full Code EXPECTED DISCHARGE DATE: 10/30/2022 I spent a total of 50 minutes coordinating, documenting, and providing care for this patient excluding time spent in the performance of separately billed services or time spent by another provider/QHP. * Glendy Torres RN - 10/30/2022 5:40 AM EDT Nursing Critical Care Response Note [facility] [id number] Name: Gil Irby Date: 10/30/2022 Time: 5:40 AM Event Location: [facility], Unit Area: 4b In the role of the Critical Response Nurse I was involved in the care of this patient. Method of notification to the critical care response nurse: Unit call/request for assistance Reason for notification or follow up: Hypotension Observations/Interventions/Assessment: pt noted to be hypotensive. UOP wnl. Outcome/Plan Pt given 1000 ml bolus. Repeat bp checks showed improvement. [facility] * Amber Thakkar - 10/29/2022 11:31 AM EDT Images from the original note were not included. [facility] [id number] INTERVAL HISTORY: 37-year-old male with PMH DM I, neuropathy, depression, opiod use, bipolar, HLD, ADHD, malnutrition, compulsive skin picking presents with 2 months of right 5th digit infection that progressively gotten worse. Of note, was admitted to the ICU 2 months ago for the same MRSA infection. XR hands: Persistent subluxation at the 5th proximal interphalangeal joint anterior displacement of the distal fracture fragment. Subjective: pt seen at bedside. No complaints overnight. Denies dizziness Objective Physical Exam Most Recent Vital Signs: BP: 92 mmHg/60 mmHg (10/29/22738) Pulse: 76 (10/29/22738) Temp: 36.11 C (10/29/22738) Resp: 18 (10/29/22738) SpO2: 98 % (10/29/22738) Constitutional: no acute distress HEENT: normal: normocephalic, atraumatic; no masses, tenderness, or adenopathy CV: normal rate and rhythm, no murmur, gallops or rub Chest: normal respiratory effort, lungs clear to auscultation and percussion Abdomen: normal: soft, bowel sounds normal, no masses, tenderness or organomegaly Extremities: (+) right arm and 5th digit wrapped. skin picking noted on left 4th and 5th fingers. Skin: warm, dry, (+) Skin picking noted on left 4th and 5th digit : Neuro: alert, oriented to person, place, and time Peripheral Line Left;Lower Arm 18 Gauge (Active) Number of days: 2 Peripheral Line Left;Upper Arm 18 Gauge (Active) Number of days: 2 STUDIES: Labs and other studies reviewed with pertinent findings noted below: Results for orders placed or performed during the hospital encounter of 10/27/22 COMPREHENSIVE METABOLIC PANEL Result Value Ref Range BUN 14 6 - 20 mg/dL Creatinine 0.9 0.6 - 1.2 mg/dL Estimated Glomerular Filtration Rate >90 >=60 mL/min Sodium 136 135 - 146 mmol/L Potassium 3.5 3.5 - 5.1 mmol/L Chloride 98 98 - 107 mmol/L CO2 31 22 - 32 mmol/L Anion Gap 7 7 - 15 mmol/L Glucose 143 (H) 70 - 120 mg/dL Albumin 3.5 (L) 3.8 - 5.0 g/dL AST 35 10 - 50 U/L Alkaline Phosphatase 110 35 - 130 U/L Bilirubin, Total 0.2 <=1.2 mg/dL Calcium 8.9 8.4 - 10.2 mg/dL Protein 7.6 6.0 - 8.3 g/dL ALT 62 (H) 10 - 50 U/L PROCALCITONIN Result Value Ref Range Procalcitonin 0.06 <0.10 ng/mL TROPONIN T, HIGH SENSITIVITY Result Value Ref Range Troponin T, High Sensitivity 16 <=22 ng/L LACTATE, WHOLE BLOOD WITH REFLEX IF ABNORMAL Result Value Ref Range Lactate, Whole Blood 1.5 0.4 - 2.0 mmol/L PT INR Result Value Ref Range Prothrombin Time 13.6 11.6 - 15.2 seconds INR 1.0 0.8 - 1.2 APTT Result Value Ref Range aPTT 30 21 - 38 seconds BLOOD GAS, VENOUS Result Value Ref Range Temperature 37.0 C pH, Venous 7.320 7.320 - 7.430 units pCO2, Venous 63.7 (H) 40.0 - 60.0 mmHg pO2, Venous 22.6 (L) 25.0 - 50.0 mmHg Base Excess, Venous 4.9 (H) -2.0 - 2.0 mmol/L Hemoglobin, Whole Blood 11.0 (L) 14.0 - 16.8 g/dL Oxyhemoglobin, Venous 38.9 (L) 40.0 - 85.0 % total Hgb Carboxyhemoglobin, Whole Blood 3.8 (H) <=1.5 % total Hgb Methemoglobin, Whole Blood 1.2 <=1.5 % total Hgb Reduced Hemoglobin, Venous 56.1 % total Hgb O2 Content, Venous 6.0 (L) 7.0 - 18.0 %vol Bicarbonate, Whole Blood 31.9 (H) 23.0 - 31.0 mmol/L URINALYSIS, REFLEX TO MICROSCOPIC Result Value Ref Range Color, Urine Yellow Light Yellow, Yellow, Dark Yellow Clarity, Urine Clear Clear Glucose, Urine 100 (A) Negative mg/dL Bilirubin, Urine Negative Negative Ketone, Urine Negative Negative mg/dL Specific [place], Urine 1.010 1.003 - 1.030 Blood, Urine Large (A) Negative pH, Urine 7.0 5.0 - 7.5 Units Protein, Urine >=300 (A) Negative mg/dL Urobilinogen, Urine 0.2 0.2, 1.0 mg/dL Nitrite, Urine Positive (A) Negative Esterase, Urine Large (A) Negative CULTURE, BLOOD Result Value Ref Range Blood Culture Growth No growth to date CULTURE, BLOOD Result Value Ref Range Blood Culture Growth No growth to date CRP (INFLAMMATORY MARKER) Result Value Ref Range CRP (Inflammatory Marker) 14 (H) <=5 mg/L CBC Result Value Ref Range WBC 12.22 (H) 4.00 - 10.80 K/uL RBC 3.33 4.50 - 5.25 M/uL HGB 10.8 (L) 14.0 - 16.8 g/dL HCT 31.6 (L) 40.0 - 48.4 % MCV 94.9 82.0 - 99.5 fL MCH 32.4 27.0 - 34.0 pg MCHC 34.2 32.0 - 36.0 g/dL RDW 13.5 11.5 - 15.5 % PLT 428 (H) 140 - 400 K/uL MPV 8.4 6.6 - 11.1 fL nRBCs 0 <=0 /100 WBCs DIFFERENTIAL, AUTOMATED Result Value Ref Range WBC 12.22 (H) 4.00 - 10.80 K/uL Neutrophils % 62.3 40.0 - 75.0 % Lymphocytes % 31.3 18.0 - 42.0 % Monocytes % 5.0 1.0 - 11.0 % Eosinophils % 0.6 0.0 - 6.0 % Basophils % 0.5 0.0 - 2.0 % Immature Granulocytes % 0.3 0.0 - 2.0 % Absolute Neutrophils 7.61 1.80 - 7.70 K/uL Absolute Lymphocytes 3.83 1.00 - 4.80 K/ul Absolute Monocytes 0.61 0.00 - 1.10 K/uL Absolute Eosinophils 0.07 0.00 - 0.70 K/uL Absolute Basophils 0.06 0.00 - 0.20 K/uL Absolute Immature Granulocytes 0.04 0.00 - 0.20 K/uL CULTURE, WOUND, DEEP, AEROBIC AND ANAEROBIC Result Value Ref Range Culture Growth Moderate Staphylococcus aureus (A) Stain Description No polymorphonuclear leukocytes seen Stain Description Many Gram positive cocci Stain Description Many Gram positive bacilli MRSA SCREEN, PCR Result Value Ref Range MRSA PCR Result Positive (A) Negative BASIC METABOLIC PANEL Result Value Ref Range BUN 12 6 - 20 mg/dL Creatinine 0.8 0.6 - 1.2 mg/dL Estimated Glomerular Filtration Rate >90 >=60 mL/min Sodium 140 135 - 146 mmol/L Potassium 3.3 (L) 3.5 - 5.1 mmol/L Chloride 106 98 - 107 mmol/L CO2 30 22 - 32 mmol/L Anion Gap 4 (L) 7 - 15 mmol/L Glucose 68 (L) 70 - 120 mg/dL Calcium 7.9 (L) 8.4 - 10.2 mg/dL CBC Result Value Ref Range WBC 9.39 4.00 - 10.80 K/uL RBC 2.88 4.50 - 5.25 M/uL HGB 9.4 (L) 14.0 - 16.8 g/dL HCT 27.4 (L) 40.0 - 48.4 % MCV 95.1 82.0 - 99.5 fL MCH 32.6 27.0 - 34.0 pg MCHC 34.3 32.0 - 36.0 g/dL RDW 13.7 11.5 - 15.5 % PLT 368 140 - 400 K/uL MPV 8.6 6.6 - 11.1 fL nRBCs 0 <=0 /100 WBCs MAGNESIUM Result Value Ref Range Magnesium 1.8 1.5 - 2.6 mg/dL HEMOGLOBIN A1C Result Value Ref Range Hemoglobin A1C 12.8 (H) 4.0 - 5.6 % Estimated Average Glucose 321 (H) <126 mg/dL MICROSCOPIC EXAM, URINE Result Value Ref Range RBC, Urine 50+ (A) 0 - 2 /HPF WBC, Urine 50+ (A) 0 - 2 /HPF Bacteria, Urine 101-150 (A) 0 - 25 /HPF TSH WITH FREE T4 IF INDICATED Result Value Ref Range TSH >100.00 (H) 0.27 - 4.20 uIU/mL T4, FREE Result Value Ref Range T4, Free 0.4 (L) 0.9 - 1.7 ng/dL VANCOMYCIN RANDOM Result Value Ref Range Vancomycin Random 25.6 10.0 - 40.0 ug/mL CBC Result Value Ref Range WBC 8.83 4.00 - 10.80 K/uL RBC 3.04 4.50 - 5.25 M/uL HGB 9.6 (L) 14.0 - 16.8 g/dL HCT 29.9 (L) 40.0 - 48.4 % MCV 98.4 82.0 - 99.5 fL MCH 31.6 27.0 - 34.0 pg MCHC 32.1 32.0 - 36.0 g/dL RDW 13.9 11.5 - 15.5 % PLT 385 140 - 400 K/uL MPV 9.0 6.6 - 11.1 fL nRBCs 0 <=0 /100 WBCs BASIC METABOLIC PANEL Result Value Ref Range BUN 16 6 - 20 mg/dL Creatinine 1.1 0.6 - 1.2 mg/dL Estimated Glomerular Filtration Rate >90 >=60 mL/min Sodium 135 135 - 146 mmol/L Potassium 4.1 3.5 - 5.1 mmol/L Chloride 104 98 - 107 mmol/L CO2 23 22 - 32 mmol/L Anion Gap 8 7 - 15 mmol/L Glucose 246 (H) 70 - 120 mg/dL Calcium 8.2 (L) 8.4 - 10.2 mg/dL CALCIUM, IONIZED Result Value Ref Range Calcium, Ionized 1.14 1.13 - 1.32 mmol/L GLUCOSE METER, POINT OF CARE Result Value Ref Range Glucose Meter 143 (H) 70 - 120 mg/dL GLUCOSE METER, POINT OF CARE Result Value Ref Range Glucose Meter 72 70 - 120 mg/dL GLUCOSE METER, POINT OF CARE Result Value Ref Range Glucose Meter 90 70 - 120 mg/dL GLUCOSE METER, POINT OF CARE Result Value Ref Range Glucose Meter 94 70 - 120 mg/dL GLUCOSE METER, POINT OF CARE Result Value Ref Range Glucose Meter 226 (H) 70 - 120 mg/dL GLUCOSE METER, POINT OF CARE Result Value Ref Range Glucose Meter 70 70 - 120 mg/dL GLUCOSE METER, POINT OF CARE Result Value Ref Range Glucose Meter 66 (L) 70 - 120 mg/dL GLUCOSE METER, POINT OF CARE Result Value Ref Range Glucose Meter 130 (H) 70 - 120 mg/dL GLUCOSE METER, POINT OF CARE Result Value Ref Range Glucose Meter 66 (L) 70 - 120 mg/dL GLUCOSE METER, POINT OF CARE Result Value Ref Range Glucose Meter 60 (L) 70 - 120 mg/dL GLUCOSE METER, POINT OF CARE Result Value Ref Range Glucose Meter 180 (H) 70 - 120 mg/dL GLUCOSE METER, POINT OF CARE Result Value Ref Range Glucose Meter 142 (H) 70 - 120 mg/dL GLUCOSE METER, POINT OF CARE Result Value Ref Range Glucose Meter 297 (H) 70 - 120 mg/dL XR HAND 2 VIEWS Final Result PROCEDURE INFORMATION: Exam: XR Right Hand Exam date and time: 10/27/2022 10:23 PM Age: 37 years old Clinical indication: Other: Post-splint. Best images due to splint and PT unable to straighten fingers. TECHNIQUE: Imaging protocol: Radiologic exam of the right hand. Views: 1 or 2 views. COMPARISON: OT XR HAND 3 OR MORE VIEWS 06/29/2022 3:42 PM FINDINGS: Bones/joints: There is casting material in place which obscures fine bony and soft-tissue detail. Persistent subluxation at the 5th proximal interphalangeal joint anterior displacement of the distal fracture fragment. Additional fracture lines are unchanged. Soft tissues: Normal. IMPRESSION IMPRESSION: Persistent subluxation at the 5th proximal interphalangeal joint anterior displacement of the distal fracture fragment. Additional fracture lines are unchanged. THIS DOCUMENT HAS BEEN ELECTRONICALLY SIGNED BY MARTÍN NOLAND MD XR CHEST 1 VIEW Final Result PROCEDURE INFORMATION: Exam: XR Chest Exam date and time: 10/27/2022 6:05 PM Age: 37 years old Clinical indication: Other: Sepsis TECHNIQUE: Imaging protocol: Radiologic exam of the chest. Views: 1 view. COMPARISON: DX (CXR AP X-RENTERIA GRID, CHEST, CXR AP GRID [facility]) 12/29/2021 6:42 AM FINDINGS: Lungs: There is some parenchymal scarring in the left mid lung. There is no dense parenchymal consolidation, pleural effusion, or pneumothorax. Pleural spaces: See "Lungs" finding. Heart/Mediastinum: Unremarkable. No cardiomegaly. Bones/joints: Unremarkable. IMPRESSION IMPRESSION: No acute findings. THIS DOCUMENT HAS BEEN ELECTRONICALLY SIGNED BY MARTÍN NOLAND MD XR FINGERS 2 OR MORE VIEWS Final Result PROCEDURE INFORMATION: Exam: XR Right Finger(s) Exam date and time: 10/27/2022 6:05 PM Age: 37 years old Clinical indication: Other: Infection in finger TECHNIQUE: Imaging protocol: Radiologic exam of the right fingers. Views: Minimum 2 views. COMPARISON: OT XR HAND 3 OR MORE VIEWS 06/29/2022 3:42 PM FINDINGS: Bones/joints: There is subluxation at the 5th proximal interphalangeal joint with associated soft tissue swelling. There is some questionable erosion at the base of the 5th middle phalanx which may reflect underlying infection. Soft tissues: See "Bones/joints" finding. IMPRESSION IMPRESSION: Subluxed 5th proximal interphalangeal joint. Underlying osseous erosion may reflect infection/osteomyelitis. THIS DOCUMENT HAS BEEN ELECTRONICALLY SIGNED BY MARTÍN NOLAND MD Assessment and Plan IMPRESSION : Principal Problem: Osteomyelitis (HCC) Active Problems: Depression, major, recurrent, moderate (HCC) Hypothyroidism Type 1 diabetes mellitus with hemoglobin A1c goal of less than 8.0% (HCC) Neuropathy Mixed dyslipidemia ADHD (attention deficit hyperactivity disorder), combined type Bipolar 1 disorder, depressed (HCC) Smoking Type 1 diabetes mellitus with diabetic polyneuropathy (HCC) Severe protein-calorie malnutrition (HCC) Opioid use disorder, severe, on maintenance therapy (HCC) Compulsive skin picking Acute cystitis with hematuria Hypokalemia Generalized weakness Nausea and vomiting Decreased oral intake Resolved Problems: Malnutrition of moderate degree (HCC) I have examined the patient and consistent with the dietitian's findings found malnutrition presentof Severe (10/28/22 1406) degree. This is consistent with such due to Muscle loss;Fat loss;Inadequate energy intake (10/28/22 1406). I have also reviewed and agree with the dietitian's plan of care which include Oral nutritional supplement ordered/adjusted (10/28/22 1406). DIFFERENTIAL AND PLAN: - continue vanc and Zosyn - appreciate orthopedic input. Recent MRSA infection of his small finger. Patient states he has been able to see his knuckles of his skin for the several weeks. No plan for urgent orthopedic surgicalintervention with possible plan for operative intervention on an outpatient basis. - status post finger was reduced under the skin in order to take tension off of the open wound of the skin and placed and leena-tape and soft dressing - blood and urine culture - MRSA screen positive - wound culture growing staph aureus - likely will need IV antibiotics. ID consult Sunday - TSH > 100 with free T4 0.04. Continue [employer] levothyroxine - appreciate nutrition input. Carb consistent diet - hypoglycemia resolved. - continue IV fluids - replete potassium - ionized calcium - Lantus 12 units qHS and SSI - continue outpatient methadone - care management I spent a total of 40-54 minutes (exact time 45 mins) on the date of service in preparation, delivery, and documentation of the care provided to Gil Irby excluding any time spent in the performance of separately billed services. PHARMACOLOGIC VTE PROPHYLAXIS: Enoxaparin CODE STATUS: Full Code EXPECTED DISCHARGE DATE: 10/30/2022 * Amber Thakkar DO - 10/28/2022 11:34 AM EDT Images from the original note were not included. [facility] [id number] INTERVAL HISTORY: 37-year-old male with PMH DM I, neuropathy, depression, opiod use, bipolar, HLD, ADHD, malnutrition, compulsive skin picking presents with 2 months of right 5th digit infection that progressively gotten worse. Of note, was admitted to the ICU 2 months ago for the same MRSA infection. XR hands: Persistent subluxation at the 5th proximal interphalangeal joint anterior displacement of the distal fracture fragment. Subjective: pt seen at bedside. Informed by nursing that his sugar was low but pt denies any symptoms. Objective Physical Exam Most Recent Vital Signs: BP: 112 mmHg/78 mmHg (10/28/22 1059) Pulse: 79 (10/28/22 1059) Temp: 36.5 C (10/28/22 1059) Resp: 18 (10/28/22 1059) SpO2: 97 % (10/28/22 1059) Constitutional: no acute distress HEENT: normal: normocephalic, atraumatic; no masses, tenderness, or adenopathy CV: normal rate and rhythm, no murmur, gallops or rub Chest: normal respiratory effort, lungs clear to auscultation and percussion Abdomen: normal: soft, bowel sounds normal, no masses, tenderness or organomegaly Extremities: (+) right arm and 5th digit wrapped. skin picking noted on left 4th and 5th fingers. Skin: warm, dry, (+) Skin picking noted on left 4th and 5th digit : Neuro: alert, oriented to person, place, and time Peripheral Line Left;Lower Arm 18 Gauge (Active) Number of days: 1 Peripheral Line Left;Upper Arm 18 Gauge (Active) Number of days: 1 STUDIES: Labs and other studies reviewed with pertinent findings noted below: Results for orders placed or performed during the hospital encounter of 10/27/22 COMPREHENSIVE METABOLIC PANEL Result Value Ref Range BUN 14 6 - 20 mg/dL Creatinine 0.9 0.6 - 1.2 mg/dL Estimated Glomerular Filtration Rate >90 >=60 mL/min Sodium 136 135 - 146 mmol/L Potassium 3.5 3.5 - 5.1 mmol/L Chloride 98 98 - 107 mmol/L CO2 31 22 - 32 mmol/L Anion Gap 7 7 - 15 mmol/L Glucose 143 (H) 70 - 120 mg/dL Albumin 3.5 (L) 3.8 - 5.0 g/dL AST 35 10 - 50 U/L Alkaline Phosphatase 110 35 - 130 U/L Bilirubin, Total 0.2 <=1.2 mg/dL Calcium 8.9 8.4 - 10.2 mg/dL Protein 7.6 6.0 - 8.3 g/dL ALT 62 (H) 10 - 50 U/L PROCALCITONIN Result Value Ref Range Procalcitonin 0.06 <0.10 ng/mL TROPONIN T, HIGH SENSITIVITY Result Value Ref Range Troponin T, High Sensitivity 16 <=22 ng/L LACTATE, WHOLE BLOOD WITH REFLEX IF ABNORMAL Result Value Ref Range Lactate, Whole Blood 1.5 0.4 - 2.0 mmol/L PT INR Result Value Ref Range Prothrombin Time 13.6 11.6 - 15.2 seconds INR 1.0 0.8 - 1.2 APTT Result Value Ref Range aPTT 30 21 - 38 seconds BLOOD GAS, VENOUS Result Value Ref Range Temperature 37.0 C pH, Venous 7.320 7.320 - 7.430 units pCO2, Venous 63.7 (H) 40.0 - 60.0 mmHg pO2, Venous 22.6 (L) 25.0 - 50.0 mmHg Base Excess, Venous 4.9 (H) -2.0 - 2.0 mmol/L Hemoglobin, Whole Blood 11.0 (L) 14.0 - 16.8 g/dL Oxyhemoglobin, Venous 38.9 (L) 40.0 - 85.0 % total Hgb Carboxyhemoglobin, Whole Blood 3.8 (H) <=1.5 % total Hgb Methemoglobin, Whole Blood 1.2 <=1.5 % total Hgb Reduced Hemoglobin, Venous 56.1 % total Hgb O2 Content, Venous 6.0 (L) 7.0 - 18.0 %vol Bicarbonate, Whole Blood 31.9 (H) 23.0 - 31.0 mmol/L URINALYSIS, REFLEX TO MICROSCOPIC Result Value Ref Range Color, Urine Yellow Light Yellow, Yellow, Dark Yellow Clarity, Urine Clear Clear Glucose, Urine 100 (A) Negative mg/dL Bilirubin, Urine Negative Negative Ketone, Urine Negative Negative mg/dL Specific [place], Urine 1.010 1.003 - 1.030 Blood, Urine Large (A) Negative pH, Urine 7.0 5.0 - 7.5 Units Protein, Urine >=300 (A) Negative mg/dL Urobilinogen, Urine 0.2 0.2, 1.0 mg/dL Nitrite, Urine Positive (A) Negative Esterase, Urine Large (A) Negative CULTURE, BLOOD Result Value Ref Range Blood Culture Growth No growth to date CULTURE, BLOOD Result Value Ref Range Blood Culture Growth No growth to date CRP (INFLAMMATORY MARKER) Result Value Ref Range CRP (Inflammatory Marker) 14 (H) <=5 mg/L CBC Result Value Ref Range WBC 12.22 (H) 4.00 - 10.80 K/uL RBC 3.33 4.50 - 5.25 M/uL HGB 10.8 (L) 14.0 - 16.8 g/dL HCT 31.6 (L) 40.0 - 48.4 % MCV 94.9 82.0 - 99.5 fL MCH 32.4 27.0 - 34.0 pg MCHC 34.2 32.0 - 36.0 g/dL RDW 13.5 11.5 - 15.5 % PLT 428 (H) 140 - 400 K/uL MPV 8.4 6.6 - 11.1 fL nRBCs 0 <=0 /100 WBCs DIFFERENTIAL, AUTOMATED Result Value Ref Range WBC 12.22 (H) 4.00 - 10.80 K/uL Neutrophils % 62.3 40.0 - 75.0 % Lymphocytes % 31.3 18.0 - 42.0 % Monocytes % 5.0 1.0 - 11.0 % Eosinophils % 0.6 0.0 - 6.0 % Basophils % 0.5 0.0 - 2.0 % Immature Granulocytes % 0.3 0.0 - 2.0 % Absolute Neutrophils 7.61 1.80 - 7.70 K/uL Absolute Lymphocytes 3.83 1.00 - 4.80 K/ul Absolute Monocytes 0.61 0.00 - 1.10 K/uL Absolute Eosinophils 0.07 0.00 - 0.70 K/uL Absolute Basophils 0.06 0.00 - 0.20 K/uL Absolute Immature Granulocytes 0.04 0.00 - 0.20 K/uL CULTURE, WOUND, DEEP, AEROBIC AND ANAEROBIC Result Value Ref Range Culture Growth Moderate Staphylococcus aureus (A) Stain Description No polymorphonuclear leukocytes seen Stain Description Many Gram positive cocci Stain Description Many Gram positive bacilli MRSA SCREEN, PCR Result Value Ref Range MRSA PCR Result Positive (A) Negative BASIC METABOLIC PANEL Result Value Ref Range BUN 12 6 - 20 mg/dL Creatinine 0.8 0.6 - 1.2 mg/dL Estimated Glomerular Filtration Rate >90 >=60 mL/min Sodium 140 135 - 146 mmol/L Potassium 3.3 (L) 3.5 - 5.1 mmol/L Chloride 106 98 - 107 mmol/L CO2 30 22 - 32 mmol/L Anion Gap 4 (L) 7 - 15 mmol/L Glucose 68 (L) 70 - 120 mg/dL Calcium 7.9 (L) 8.4 - 10.2 mg/dL CBC Result Value Ref Range WBC 9.39 4.00 - 10.80 K/uL RBC 2.88 4.50 - 5.25 M/uL HGB 9.4 (L) 14.0 - 16.8 g/dL HCT 27.4 (L) 40.0 - 48.4 % MCV 95.1 82.0 - 99.5 fL MCH 32.6 27.0 - 34.0 pg MCHC 34.3 32.0 - 36.0 g/dL RDW 13.7 11.5 - 15.5 % PLT 368 140 - 400 K/uL MPV 8.6 6.6 - 11.1 fL nRBCs 0 <=0 /100 WBCs MAGNESIUM Result Value Ref Range Magnesium 1.8 1.5 - 2.6 mg/dL MICROSCOPIC EXAM, URINE Result Value Ref Range RBC, Urine 50+ (A) 0 - 2 /HPF WBC, Urine 50+ (A) 0 - 2 /HPF Bacteria, Urine 101-150 (A) 0 - 25 /HPF TSH WITH FREE T4 IF INDICATED Result Value Ref Range TSH >100.00 (H) 0.27 - 4.20 uIU/mL T4, FREE Result Value Ref Range T4, Free 0.4 (L) 0.9 - 1.7 ng/dL GLUCOSE METER, POINT OF CARE Result Value Ref Range Glucose Meter 143 (H) 70 - 120 mg/dL GLUCOSE METER, POINT OF CARE Result Value Ref Range Glucose Meter 72 70 - 120 mg/dL GLUCOSE METER, POINT OF CARE Result Value Ref Range Glucose Meter 90 70 - 120 mg/dL GLUCOSE METER, POINT OF CARE Result Value Ref Range Glucose Meter 94 70 - 120 mg/dL GLUCOSE METER, POINT OF CARE Result Value Ref Range Glucose Meter 226 (H) 70 - 120 mg/dL GLUCOSE METER, POINT OF CARE Result Value Ref Range Glucose Meter 70 70 - 120 mg/dL GLUCOSE METER, POINT OF CARE Result Value Ref Range Glucose Meter 66 (L) 70 - 120 mg/dL GLUCOSE METER, POINT OF CARE Result Value Ref Range Glucose Meter 130 (H) 70 - 120 mg/dL GLUCOSE METER, POINT OF CARE Result Value Ref Range Glucose Meter 66 (L) 70 - 120 mg/dL GLUCOSE METER, POINT OF CARE Result Value Ref Range Glucose Meter 60 (L) 70 - 120 mg/dL GLUCOSE METER, POINT OF CARE Result Value Ref Range Glucose Meter 180 (H) 70 - 120 mg/dL XR HAND 2 VIEWS Final Result PROCEDURE INFORMATION: Exam: XR Right Hand Exam date and time: 10/27/2022 10:23 PM Age: 37 years old Clinical indication: Other: Post-splint. Best images due to splint and PT unable to straighten fingers. TECHNIQUE: Imaging protocol: Radiologic exam of the right hand. Views: 1 or 2 views. COMPARISON: OT XR HAND 3 OR MORE VIEWS 06/29/2022 3:42 PM FINDINGS: Bones/joints: There is casting material in place which obscures fine bony and soft-tissue detail. Persistent subluxation at the 5th proximal interphalangeal joint anterior displacement of the distal fracture fragment. Additional fracture lines are unchanged. Soft tissues: Normal. IMPRESSION IMPRESSION: Persistent subluxation at the 5th proximal interphalangeal joint anterior displacement of the distal fracture fragment. Additional fracture lines are unchanged. THIS DOCUMENT HAS BEEN ELECTRONICALLY SIGNED BY MARTÍN NOLAND MD XR CHEST 1 VIEW Final Result PROCEDURE INFORMATION: Exam: XR Chest Exam date and time: 10/27/2022 6:05 PM Age: 37 years old Clinical indication: Other: Sepsis TECHNIQUE: Imaging protocol: Radiologic exam of the chest. Views: 1 view. COMPARISON: DX (CXR AP X-RENTERIA GRID, CHEST, CXR AP GRID Crosswise) 12/29/2021 6:42 AM FINDINGS: Lungs: There is some parenchymal scarring in the left mid lung. There is no dense parenchymal consolidation, pleural effusion, or pneumothorax. Pleural spaces: See "Lungs" finding. Heart/Mediastinum: Unremarkable. No cardiomegaly. Bones/joints: Unremarkable. IMPRESSION IMPRESSION: No acute findings. THIS DOCUMENT HAS BEEN ELECTRONICALLY SIGNED BY MARTÍN NOLAND MD XR FINGERS 2 OR MORE VIEWS Final Result PROCEDURE INFORMATION: Exam: XR Right Finger(s) Exam date and time: 10/27/2022 6:05 PM Age: 37 years old Clinical indication: Other: Infection in finger TECHNIQUE: Imaging protocol: Radiologic exam of the right fingers. Views: Minimum 2 views. COMPARISON: OT XR HAND 3 OR MORE VIEWS 06/29/2022 3:42 PM FINDINGS: Bones/joints: There is subluxation at the 5th proximal interphalangeal joint with associated soft tissue swelling. There is some questionable erosion at the base of the 5th middle phalanx which may reflect underlying infection. Soft tissues: See "Bones/joints" finding. IMPRESSION IMPRESSION: Subluxed 5th proximal interphalangeal joint. Underlying osseous erosion may reflect infection/osteomyelitis. THIS DOCUMENT HAS BEEN ELECTRONICALLY SIGNED BY MARTÍN NOLAND MD Assessment and Plan IMPRESSION : Principal Problem: Osteomyelitis (HCC) Active Problems: Depression, major, recurrent, moderate (HCC) Hypothyroidism Type 1 diabetes mellitus with hemoglobin A1c goal of less than 8.0% (HCC) Neuropathy Mixed dyslipidemia ADHD (attention deficit hyperactivity disorder), combined type Bipolar 1 disorder, depressed (HCC) Smoking Type 1 diabetes mellitus with diabetic polyneuropathy (HCC) Malnutrition of moderate degree (HCC) Severe protein-calorie malnutrition (HCC) Opioid use disorder, severe, on maintenance therapy (HCC) Compulsive skin picking Acute cystitis with hematuria Hypokalemia Generalized weakness Nausea and vomiting Decreased oral intake Resolved Problems: * No resolved hospital problems. * DIFFERENTIAL AND PLAN: - continue vanc and Zosyn - appreciate orthopedic input. Recent MRSA infection of his small finger. Patient states he has been able to see his knuckles of his skin for the several weeks. No plan for urgent orthopedic surgicalintervention with possible plan for operative intervention on an outpatient basis. - status post finger was reduced under the skin in order to take tension off of the open wound of the skin and placed and leena-tape and soft dressing - blood and urine culture - MRSA screen positive - TSH > 100 with free T4 0.04. Continue TRUST OFFICER levothyroxine - appreciate nutrition input. Carb consistent diet - asymptomatic hypoglycemia. Likely due to poor oral intake. S/p milk and glucose tabs with improvement. - continue IV fluids - replete potassium - ionized calcium - Lantus 12 units qHS and SSI - continue outpatient methadone - care management I spent a total of 40-54 minutes (exact time 50 mins) on the date of service in preparation, delivery, and documentation of the care provided to Gil Irby excluding any time spent in the performance of separately billed services. PHARMACOLOGIC VTE PROPHYLAXIS: Enoxaparin CODE STATUS: Full Code EXPECTED DISCHARGE DATE: No information available * Micha Marsh MD - 10/28/2022 8:30 AM EDT Images from the original note were not included. Orthopaedic Progress Note [facility] [address] Name: Gil Irby Location: [facility] [id number]-[id number] Date: 10/28/2022 Time: 8:30 AM 24 hour events/Subjective: Patient seen at bedside, reports pain remains well controlled. Has remained afebrile and hemodynamically stable. Objective: BP: 104 mmHg/73 mmHg (10/28/22756) Pulse: 79 (10/28/22756) Temp: 36.28 C (10/28/22756) Resp: 16 (10/28/22756) SpO2: 98 % (10/28/22756) CONSTITUTIONAL State of health: chronically ill Level of consciousness: alert Distress: none MUSCULOSKELETAL RUE: splint in place and intact. SILT in all digits. Able to flex/extend/abduct/adduct digits 1-3. Digits WWP Imaging: Post-splinting x-rays reviewed and display persistent subluxation of the PIP joint Labs: Labs (3 Days) 10/28/2022 10/27/2022 7:59 AM 5:47 PM HGB 9.4 10.8 WBC 9.39 12.22 PLT 368 [id number] BUN -- 14 CREAT -- 0.9 Cultures: Recent Cultures (2 Weeks) 10/27/2022 10/27/2022 10/27/2022 5:55 PM 5:45 PM 5:38 PM STAIN DESCRIPTION No polymorphonuclear leukocytes seen -- -- Many Gram positive cocci Many Gram positive bacilli BLOOD CULTURE GROWTH -- No growth to date No growth to date Assessment/Plan: Mr. Irby is a/an 37 year old male with acute on chronic right small finger infection with associated open wound and PIP instability. The PIP joint remains subluxed even in immobilization. Given the chronicity of the patient's reported open wound and associated likely PIP instability, we will notperform any additional reduction atttempts or proceed with any surgical intervention during this admission so that he can be managed by one of our hand surgery specialists. - pain control per primary - Upper Right Extremity: weight bear as tolerated through elbow - OOB with assist, keep splint in place - no plan for urgent OR at this time - Antibiotics per primary team Disposition: per primary, but ok for d/c from ortho perspective when medically able Provisional care provided and general supervision by Dr. Bolivar, with whom the patient was discussed * Blaise Ac formerly [facility] - 10/27/2022 8:44 PM EDT PHARMACY PHARMACOKINETIC CONSULT [address] [address] Name: Gil Irby Location: [facility] [id number] Date: 10/27/2022 Time: 8:43 PM Requesting service: Hospitalist Bacteria being treated: Empiric Source of infection: Sepsis Medication(s) being managed: Vancomycin Pharmacokinetic calculations will be performed utilizing Playdem[employer] software. Lab information: Lab Results Component Value Date/Time WBC 12.22 (H) 10/27/2022 05:47 PM WBC 10.25 06/28/2022 05:57 PM WBC 9.09 01/06/2022 04:51 AM WBC 10.41 01/05/2022 05:11 AM WBC 10.84 (H) 01/04/2022 05:07 AM WBC 9.27 12/21/2019 01:49 PM WBC 9.59 07/17/2015 06:03 AM WBC 19.41 (H) 07/16/2015 10:10 AM WBC 10.42 07/16/2015 07:00 AM WBC 8.70 12/07/2014 05:55 PM Lab Results Component Value Date/Time BUN 14 10/27/2022 05:47 PM BUN 26 (H) 06/28/2022 05:57 PM BUN 19 01/06/2022 04:51 AM BUN 19 01/05/2022 04:27 PM BUN 15 01/05/2022 05:11 AM BUN 22 (H) 12/21/2019 01:49 PM BUN 10 07/17/2015 06:03 AM BUN 8 07/16/2015 10:10 AM BUN 9 07/16/2015 07:00 AM BUN 9 12/07/2014 07:41 PM Lab Results Component Value Date/Time CREAT 0.9 10/27/2022 05:47 PM CREAT 1.2 06/28/2022 05:57 PM CREAT 0.5 (L) 01/06/2022 04:51 AM CREAT 0.5 (L) 01/05/2022 04:27 PM CREAT 0.5 (L) 01/05/2022 05:11 AM CREAT 1.1 12/21/2019 01:49 PM CREAT 0.7 07/17/2015 06:03 AM CREAT 0.7 07/16/2015 10:10 AM CREAT 0.6 07/16/2015 07:00 AM CREAT 0.8 12/07/2014 07:41 PM ANTIMICROBIALS GIVEN (last 28 hours) Date/Time Action Medication Dose Rate 10/27/22 1840 New Bag Vancomycin (Vancocin) 1250 mg in NSS 250 mL ivpb 1,250 mg 183.33 mL/hr 10/27/22 1800 New Bag piperacillin-tazobactam in D5W (Zosyn) (HALF hour infusion) ivpb 4.5 g 4.5 g 200 mL/hr Wt Readings from Last 1 Encounters: 10/27/22 45.3 kg (99 lb 13.9 oz) Levels to date: No results found for: VANCO, VANCOPEAK, VANCORANDOM, VANCOTROUGH, GENTPEAK, GENTRANDOM, GENTTROUGH,TOBRAPEAK, TOBRARANDOM, TOBRATROUGH, AMIKAPEAK, AMIKARANDOM, AMIKATROUGH Impression: Gil Irby is a/an 37 year old male receiving vancomycin therapy. The pharmacokinetic target for therapy is AUC24,SS (range) 400-600mg/L.hr Assessment and Plan: Analysis using Sols gives the following patient-specific pharmacokinetic parameters: CL: 3.02 L/hr V: 37.9 L T1/2: 10 hours At this time we recommend a regimen of 750 mg IV every 12 hours, which is predicted to result in a steady-state trough of 14.7 mg/L and AUC24 of 490 mg/L.hr. Recommendations: - Vancomycin 750 mg IV every 12 hours - Obtain Vancomycin level [PLEASE ENTER WHEN TO OBTAIN NEXT LEVEL] - Continue to monitor serum creatinine Pharmacy will continue to follow and dose as appropriate by renal function, culture results, infectious disease input, and overall clinical status. Contact the Pharmacy at extension [phone] if there are any questions. documented in this encounter H&P Notes * Gail Dean MD - 10/27/2022 8:07 PM EDT Images from the original note were not included. [facility] PRESENTING PROBLEM: Generalized weakness, Right 5th digit infection HPI: Patient is a 37 yo gentleman with history of DM I, neuropathy, depression, opiod use, bipolar,HLD, ADHD, malnutrition, compulsive skin picking who came with history of two months right 5th finger infection which has been getting progressively worse. Patient was admitted two months ago in the ICU due to same infection and was dx with MRSA infection. Patient has been extremely weak, with verylow appetite, chills, nausea, vomiting, arthralgia and has been losing weight. Patient came today because he is so weak that can barely walk. Denies fever, chills, nausea, vomiting, diarrhea, abdominal pain. Patient has not been on antibiotics lately. Subjective Review of Systems Constitutional: Positive for generalized weakness, chills HENT: Negative for ear pain and sore throat. Eyes: Negative for pain and visual disturbance. Respiratory:Negative for shortness of breath Cardiovascular: Negative for chest pain and palpitations. Gastrointestinal: Positive for nausea, vomiting Genitourinary: Negative for dysuria and hematuria. Musculoskeletal: Positive for arthralgias Skin: Positive for skin infection right 5th finger, picking skin Neurological: Negative for seizures and syncope. All other systems reviewed and are negative. Patient's past history, medications, and allergies were reviewed. Objective Physical Exam Most Recent Vital Signs: BP: 119 mmHg/86 mmHg (10/27/221899) Pulse: 82 (10/27/221899) Temp: 36.61 C (10/27/22 1727) Resp: 18 (10/27/221899) SpO2: 98 % (10/27/221899) Constitutional: (+) cachectic, alert, oriented x 3 HEENT: normal: normocephalic, atraumatic; no masses, tenderness, or adenopathy Eyes: sclera and conjunctiva normal Neck: supple, normal range of motion CV: normal rate and rhythm, no murmur, gallops or rub Chest: normal respiratory effort, lungs clear to auscultation and percussion Abdomen: normal: soft, bowel sounds normal, no masses, tenderness or organomegaly Musculoskeletal: tenderness right 5th digit, swelling, foul odor Extremities: no clubbing, cyanosis, or edema, otherwise grossly normal, warm, and dry, Right 5th digits with wound, left hand with wound Skin: warm, dry: Neuro: alert, oriented to person, place, and time, normal mental status exam, reflexes normal and symmetric, sensory normal Psych: normal mood and affect, judgement normal, memory normal STUDIES: Labs and other studies reviewed with pertinent findings noted below: Latest Reference Range & Units 10/27/22 17:37 10/27/22 17:47 Temperature C 37.0 pH, Venous 7.320 - 7.430 units 7.320 pCO2, Venous 40.0 - 60.0 mmHg 63.7 (H) pO2, Venous 25.0 - 50.0 mmHg 22.6 (L) O2 Content, Venous 7.0 - 18.0 %vol 6.0 (L) Oxyhemoglobin, Venous 40.0 - 85.0 % total Hgb 38.9 (L) Base Excess, Venous -2.0 - 2.0 mmol/L 4.9 (H) Carboxyhemoglobin, Whole Blood <=1.5 % total Hgb 3.8 (H) Methemoglobin, Whole Blood <=1.5 % total Hgb 1.2 Reduced Hemoglobin, Venous % total Hgb 56.1 Troponin T, High Sensitivity <=22 ng/L 16 Sodium 135 - 146 mmol/L 136 Potassium 3.5 - 5.1 mmol/L 3.5 Chloride 98 - 107 mmol/L 98 CO2 22 - 32 mmol/L 31 BUN 6 - 20 mg/dL 14 Creatinine 0.6 - 1.2 mg/dL 0.9 Estimated Glomerular Filtration Rate >=60 mL/min >90 Anion Gap 7 - 15 mmol/L 7 Glucose 70 - 120 mg/dL 143 (H) Calcium 8.4 - 10.2 mg/dL 8.9 Bicarbonate, Whole Blood 23.0 - 31.0 mmol/L 31.9 (H) Protein 6.0 - 8.3 g/dL 7.6 Lactate, Whole Blood 0.4 - 2.0 mmol/L 1.5 INR 0.8 - 1.2 1.0 Prothrombin Time 11.6 - 15.2 seconds 13.6 aPTT 21 - 38 seconds 30 Glucose Meter 70 - 120 mg/dL 143 (H) (H): Data is abnormally high (L): Data is abnormally low XR right hand IMPRESSION: Subluxed 5th proximal interphalangeal joint. Underlying osseous erosion may reflect infection/osteomyelitis. IMPRESSION: Principal Problem: Osteomyelitis (HCC) Active Problems: Depression, major, recurrent, moderate (HCC) Hypothyroidism Type 1 diabetes mellitus with hemoglobin A1c goal of less than 8.0% (HCC) Neuropathy Mixed dyslipidemia ADHD (attention deficit hyperactivity disorder), combined type Bipolar 1 disorder, depressed (HCC) Smoking Type 1 diabetes mellitus with diabetic polyneuropathy (HCC) Malnutrition of moderate degree (HCC) Severe protein-calorie malnutrition (HCC) Opioid use disorder, severe, on maintenance therapy (HCC) Compulsive skin picking Resolved Problems: * No resolved hospital problems. * Assessment: Patient is a 37 yo gentleman with history of DM I, neuropathy, depression, opioid use, bipolar, HLD, ADHD, malnutrition, compulsive skin picking who came with history of two months right 5th finger infection which has been getting progressively worse. Patient was admitted two months ago in the ICU due to same infection and was dx with MRSA infection -Sepsis due to osteomyelitis right hand -Osteomyelitis 5th finger -DM I -Bipolar -Neuropathy -Opioid use -Malnutrition -HLD -ADHD -Compulsive skin picking PLAN: -Admit to Tele -IVF -Zosyn and Vanco -Ortho consult -F/U blood cx -Body Technician consult -Social service evaluation -Continue other home meds -ISS I have reviewed the labs and imaging and noted for the above findings. I have reviewed the chart. I spent 75 minute for the patient care, more than half my time was spent reviewing the chart, lab results, imaging and studies, counseling and coordinating care for the patient. I discussed the plan of care with the ED attending and answered all questions that the patient has. PHARMACOLOGIC VTE PROPHYLAXIS:Enoxaparin CODE STATUS: Full Code EXPECTED DISCHARGE DATE: No information available documented in this encounter Procedure Notes * Alona Hall RN - 10/30/2022 3:38 AM EDT Pt BP 80/52. OVERHEAD CRANE INSPECTOR Teleguz made aware. Orders place for 500 cc bolus BP 85/51 post bolus. Teleguz placed orders for second 500 mL. Pt AOx4 at this time. * Cynthia Venegas DO - 10/27/2022 5:32 PM EDTAssociated Order(s): EKG REASON FOR STUDY: SEPSIS CONCLUSIONS: Sinus rhythm with short IA Rightward axis Nonspecific ST abnormality Abnormal ECG When compared with ECG of 20-JUN-2022 13:14, Nonspecific T wave abnormality no longer evident in Inferior leads Ventricular Rate: 96 Atrial Rate: 96 IA Interval: 110 QRS Duration: 80 QT/QTc: 360/454 ms P-R-T [place]: 81 : 92 : 87 degrees documented in this encounter Consult Notes * Cari Palmer, Nuclear Control Operator - 10/31/2022 7:52 AM EDTAssociated Order(s): CARE MANAGEMENT CONSULT IP See Ancillary Progress Note * Dimple Sierra, formerly [facility] - 10/29/2022 10:11 AM EDT PHARMACY PHARMACOKINETIC CONSULT [address] [address] Name: Gil Irby Location: [facility] [id number]-[id number]/W Date: 10/29/2022 Time: 10:11 AM Requesting service: Hospitalists Bacteria being treated: Staphylococcus aureus Source of infection: osteomyelitis Medication(s) being managed: Vancomycin Pharmacokinetic calculations will be performed utilizing Playdem[employer] software. Lab information: Lab Results Component Value Date/Time WBC 8.83 10/29/2022 07:25 AM WBC 9.39 10/28/2022 07:59 AM WBC 12.22 (H) 10/27/2022 05:47 PM WBC 10.25 06/28/2022 05:57 PM WBC 9.09 01/06/2022 04:51 AM WBC 9.27 12/21/2019 01:49 PM WBC 9.59 07/17/2015 06:03 AM WBC 19.41 (H) 07/16/2015 10:10 AM WBC 10.42 07/16/2015 07:00 AM WBC 8.70 12/07/2014 05:55 PM Lab Results Component Value Date/Time BUN 16 10/29/2022 07:25 AM BUN 12 10/28/2022 07:59 AM BUN 14 10/27/2022 05:47 PM BUN 26 (H) 06/28/2022 05:57 PM BUN 19 01/06/2022 04:51 AM BUN 22 (H) 12/21/2019 01:49 PM BUN 10 07/17/2015 06:03 AM BUN 8 07/16/2015 10:10 AM BUN 9 07/16/2015 07:00 AM BUN 9 12/07/2014 07:41 PM Lab Results Component Value Date/Time CREAT 1.1 10/29/2022 07:25 AM CREAT 0.8 10/28/2022 07:59 AM CREAT 0.9 10/27/2022 05:47 PM CREAT 1.2 06/28/2022 05:57 PM CREAT 0.5 (L) 01/06/2022 04:51 AM CREAT 1.1 12/21/2019 01:49 PM CREAT 0.7 07/17/2015 06:03 AM CREAT 0.7 07/16/2015 10:10 AM CREAT 0.6 07/16/2015 07:00 AM CREAT 0.8 12/07/2014 07:41 PM ANTIMICROBIALS GIVEN (last 28 hours) Date/Time Action Medication Dose Rate 10/29/22 0938 New Bag piperacillin-tazobactam (ZOSYN) 4.5 g in D5W 100 mL (FOUR hour infusion) 4.5 g 25 mL/hr 10/29/22 0625 New Bag vancomycin (Vancocin) 750 mg in NSS 100 mL ivpb 750 mg 110 mL/hr 10/29/22 0050 New Bag piperacillin-tazobactam (ZOSYN) 4.5 g in D5W 100 mL (FOUR hour infusion) 4.5 g 25 mL/hr 10/28/22 1753 New Bag vancomycin (Vancocin) 750 mg in NSS 100 mL ivpb 750 mg 110 mL/hr 10/28/22 1725 New Bag piperacillin-tazobactam (ZOSYN) 4.5 g in D5W 100 mL (FOUR hour infusion) 4.5 g 25 mL/hr 10/28/22 0852 New Bag piperacillin-tazobactam (ZOSYN) 4.5 g in D5W 100 mL (FOUR hour infusion) 4.5 g 25 mL/hr 10/28/22 0632 New Bag vancomycin (Vancocin) 750 mg in NSS 100 mL ivpb 750 mg 110 mL/hr Wt Readings from Last 1 Encounters: 10/29/22 52.1 kg (114 lb 14.4 oz) Levels to date: Lab Results Component Value Date/Time VANCORANDOM 25.6 10/29/2022 07:25 AM Impression: Gil Irby is a/an 37 year old male receiving vancomycin therapy. The pharmacokinetic target for therapy is AUC24,SS (range) 400-600mg/L.hr Assessment and Plan: Recent measured serum creatinine values: 10/29/2022 07:25 1.1 mg/dL 10/28/2022 07:59 0.8 mg/dL 10/27/2022 17:47 0.9 mg/dL Assessment: Analysis of the most recent level(s) using [employer] gives the following patient-specific pharmacokinetic parameters: CL: 2.9 L/hr V: 45.3 L T1/2: 12 hours Using these values, the current regimen of Vancomycin 750 mg IV every 12 hours is predicted to result in a steady-state trough of 16.1 mg/L and AUC24 of 512 mg/L.hr. At this time we recommend a regimen of 1500 mg IV every 24 hours, which is predicted to result in a steady-state trough of 13.2 mg/L and AUC24 of 515 mg/L.hr. Recommendations: - Vancomycin 1500 mg IV every 24 hours - Obtain Vancomycin level 10/31 at 0600 - Continue to monitor serum creatinine Pharmacy will continue to follow and dose as appropriate by renal function, culture results, infectious disease input, and overall clinical status. Contact the Pharmacy at extension [phone] if there are any questions. Dimple Sierra RPh * Maribell Damon, DINESH - 10/28/2022 1:53 PM EDTAssociated Order(s): NUTRITION SERVICES (DIETITIAN) CONSULT IP CLINICAL NUTRITION CONSULT/PROGRESS NOTE [facility] [address] Name: Gil Irby Location: [facility] [id number]-[id number]/W Date: 10/28/2022 Time: 1:53 PM How patient was identified (select 2): date and Name Discussed in interdisciplinary rounds: No Gil Irby is a 37 year old male being seen for consult by provider, reduced dietary intake, skin breakdown and significant unintentional weight loss Primary Diagnosis: Osteomyelitis Other pertinent information: Pt seen with lunch tray at bedside, pt ate almost all of lunch today. He reports to me his appetite is good, he just has trouble getting food. Pt reports he receives foodstamps, but they run out fast, and where he lives, he has trouble getting food. Pt reports he only eats about 1x per day, and has noticed a severe loss of weight recently. Noted, pt already has a consult to case management - reached out to her to ask about getting pt information on local food fink. Per chart review, "XR hands: Persistent subluxation at the 5th proximal interphalangeal joint anterior displacement of the distal fracture fragment." Pt allowed me to preform a nutrition focused physical exam today, pt presents with severe fat and muscle wasting. Pt meets criteria for severe malnutrition. Will order boost supplements - pt agreeable to receive these during admission. NUTRITION ASSESSMENT: Past medical/surgical history and medications reviewed. Food/Nutrition-Related History Diet: 4 Choices (60 gm) Consistent Carbohydrate Previously followed diet: Regular Food Allergies/Intolerances: None Adult Energy Intake: Less than 50% of estimated energy requirement for greater than 1 month (severe, social/environmental). Oral Nutrition Supplement (ONS): None Pertinent medications/vitamins/minerals/supplements: Current medication list reviewed. Pertinent Biochemical Data: Latest Reference Range & Units Most Recent Potassium 3.5 - 5.1 mmol/L 3.3 (L) 10/28/22 07:59 Latest Reference Range & Units Most Recent Glucose 70 - 120 mg/dL 68 (L) 10/28/22 07:59 (L): Data is abnormally low K and glucose depleted, likely due to poor po intakes. Nutrition-Focused Physical Findings: Appearance: Cachectic, Ill-appearing and Thin Respiratory support: Room Air and None Nasal/Oral: No issues identified Digestive: Appetite good Last Bowel Movement: 10/26/22 (10/27/222039) Cognition: Awake, alert and Oriented Skin: Compromise with nutrition-related implications Nutrition Focused Physical Exam: NFPE completed on 10/28/2022 Subcutaneous Fat Loss: Orbital fat pads: Severe Buccal fat: Mild Tricep: Severe Rib: Severe Muscle Loss: Temples: Severe Clavicles: Severe Shoulders: Severe Scapula: Severe Interosseous: Moderate Anthropometrics Measurements Height: 167.6 cm (5' 6") (10/27/222039) Admission weight: 50.9 kg Weight: 50.9 kg (112 lb 3.4 oz) (10/28/22609) BMI: 16.13 (10/27/222039) Usual Body Weight: 46 kg [place] weight: 61kg [place] Weight Based on BMI: 21.7 Interpretation of Weight Change:No recent/significant weight change Nutrition Prescription: Energy needs: 30-35 Kcal/kg Kcal/day: 1114-8735 Based on current weight Protein needs: 1.25-1.5 gm/kg Protein: 64-76 Based on current weight Fluid needs: 40 ml/kg Fluid: 2036 ml/day Based on current weight Malnutrition: Malnutrition Present: Yes (10/28/221405) Adult Malnutrition Classification: Severe (10/28/221405) Malnutrition Characteristics: Muscle loss;Fat loss;Inadequate energy intake (10/28/221405) Malnutrition Care Plan: Patient meets ASPEN/AND criteria for severe malnutrition. Plan to meet 75% of estimated calorie and 75% of estimated protein requirements via therapeutic diet and a nutrition intervention of oral nutrition supplements. If patient unable to achieve estimatedrequirements over next 7 days, will need to consider enteral nutrition. Dietitian Action: Oral nutritional supplement ordered/adjusted (10/28/221405) NUTRITION DIAGNOSIS: Malnutrition severe related to social or environmental circumstances as evidenced by patient consuming less than 50% of estimated energy needs x 1 month, severe fat loss and severe muscle loss. Goals: Patient to consume greater than 75 % of daily meals and 75% of daily supplements within 7 days. NUTRITION INTERVENTION/PLAN: Orders: Oral nutrition supplement added Boost (1 cup provides 240 calories, 10 grams protein, 41 grams carbohydrate) TID Clinical Nutrition Recommendations: Diet: Continue current nutrition plan NUTRITION MONITORING AND EVALUATION: Nursing documentation flowsheets for percent meal intake Tolerance of supplement per patient/nursing report Lab values warranting change with MNT Weight for trends Plan follow-up: Will follow and adjust nutrition plan of care as medical condition requires. Please contact for change(s) in patient condition requiring earlier intervention. Maribell Damon, MS, RDN, LDN Clinical Dietitian [facility] Available via Chrom[employer] Text [phone] * Vito Bolivar MD - 10/27/2022 9:14 PM EDTAssociated Order(s): ORTHOPAEDICS CONSULT IP Images from the original note were not included. Orthopaedic Surgery Consult Name: Gil Irby : 1985 Date of Consultation: October 27, 2022 Location: [address] Reason for Consult: Finger infection HPI: Gil Irby is a 37 year RHD male with a medical history as listed below (last HBA1C 12.5) as well as compulsive picking who initially presented to the [facility] ED earlier this evening for evaluation of a possible infection involving his right small finger. The patient was told during a prior admission that he had an MRSA infection of his small finger. Has had several rounds of antibiotics in the past, which seemed to have helped the appearance of the finger, but once he starts picking it gets infected again. He states this most recent episode has been for the past 6 weeks. States it is slowlygotten worse. He notes that he has been able to see his knuckle out of his skin for several weeks now. He denies any purulent drainage that he is noticed. Denies any constitutional symptoms such as fevers, sweats, or chills. 10 pt ROS otherwise negative Past Medical History: Diagnosis Date ADHD Anxiety Bipolar disorder (HCC) Depression Diabetes mellitus (HCC) 2012 Hypothyroid Protein-calorie malnutrition (HCC) 02/04/2021 Past Surgical History: Procedure Laterality Date NONE Social History Socioeconomic History Marital status: Spouse [...] on file Housing Stability: Not on file Physical exam: BP 107/72 | Pulse 86 | Temp 36.3 C (97.3 F) (Tympanic) | Resp 16 | Ht 1.676 m (5' 6") | Wt 45.3kg (99 lb 13.9 oz) | SpO2 99% | BMI 16.12 kg/m | BSA 1.45 m General:No acute distress, Well-appearing, non-toxic Heart: regular rate and rhythm felt in periphery Lungs: no increased work of breathing RUE: Obvious open wound to the dorsal PIP with the joint exposed through the skin as pictured below. There is some mild associated cellulitis and swelling in the digit, but no palpable fluid collection ordrainage through the open wound. There are also chronic wounds proximally around the metacarpal heads This is mildly tender to palpation Non tender to palpation of clavicle/shoulder/upper arm/elbow/forearm/wrist/hand/fingers Full active and passive ROM of shoulder/elbow/wrist/fingers. Motor: grossly intact AIN/PIN/M/U/R SILT M/U/R 2+ radial pulse.? BCR<2 sec, WWP LUE: Skin intact. No gross deformity. No swelling/erythema/ecchymosis. Non tender to palpation of clavicle/shoulder/upper arm/elbow/forearm/wrist/hand/fingers Full active and passive ROM of shoulder/elbow/wrist/fingers. Motor: grossly intact AIN/PIN/M/U/R SILT M/U/R 2+ radial pulse.? BCR<2 sec, WWP RLE: Skin intact. No gross deformity. No swelling/erythema/ecchymosis. Non tender to palpation of thigh/knee/lower leg/ankle/foot Full active and passive ROM of hip/knee/ankle/toes. Non tender to log roll. Motor: grossly intact EHL/FHL/TA/GS. Grossly intact hip flexion and knee extension SILT DP/SP/Saph/Nitesh/T 2+ DP pulse.? BCR<2 sec, WWP distally LLE: Skin intact. No gross deformity. No swelling/erythema/ecchymosis. Non tender to palpation of thigh/knee/lower leg/ankle/foot Full active and passive ROM of hip/knee/ankle/toes. Non tender to log roll. Motor: grossly intact EHL/FHL/TA/GS. Grossly intact hip flexion and knee extension SILT DP/SP/Saph/Nitesh/T 2+ DP pulse.? BCR<2 sec, WWP distally Labs: Results for orders placed or performed during the hospital encounter of 10/27/22 COMPREHENSIVE METABOLIC PANEL Result Value Ref Range BUN 14 6 - 20 mg/dL Creatinine 0.9 0.6 - 1.2 mg/dL Estimated Glomerular Filtration Rate >90 >=60 mL/min Sodium 136 135 - 146 mmol/L Potassium 3.5 3.5 - 5.1 mmol/L Chloride 98 98 - 107 mmol/L CO2 31 22 - 32 mmol/L Anion Gap 7 7 - 15 mmol/L Glucose 143 (H) 70 - 120 mg/dL Albumin 3.5 (L) 3.8 - 5.0 g/dL AST 35 10 - 50 U/L Alkaline Phosphatase 110 35 - 130 U/L Bilirubin, Total 0.2 <=1.2 mg/dL Calcium 8.9 8.4 - 10.2 mg/dL Protein 7.6 6.0 - 8.3 g/dL ALT 62 (H) 10 - 50 U/L PROCALCITONIN Result Value Ref Range Procalcitonin 0.06 <0.10 ng/mL TROPONIN T, HIGH SENSITIVITY Result Value Ref Range Troponin T, High Sensitivity 16 <=22 ng/L LACTATE, WHOLE BLOOD WITH REFLEX IF ABNORMAL Result Value Ref Range Lactate, Whole Blood 1.5 0.4 - 2.0 mmol/L PT INR Result Value Ref Range Prothrombin Time 13.6 11.6 - 15.2 seconds INR 1.0 0.8 - 1.2 APTT Result Value Ref Range aPTT 30 21 - 38 seconds BLOOD GAS, VENOUS Result Value Ref Range Temperature 37.0 C pH, Venous 7.320 7.320 - 7.430 units pCO2, Venous 63.7 (H) 40.0 - 60.0 mmHg pO2, Venous 22.6 (L) 25.0 - 50.0 mmHg Base Excess, Venous 4.9 (H) -2.0 - 2.0 mmol/L Hemoglobin, Whole Blood 11.0 (L) 14.0 - 16.8 g/dL Oxyhemoglobin, Venous 38.9 (L) 40.0 - 85.0 % total Hgb Carboxyhemoglobin, Whole Blood 3.8 (H) <=1.5 % total Hgb Methemoglobin, Whole Blood 1.2 <=1.5 % total Hgb Reduced Hemoglobin, Venous 56.1 % total Hgb O2 Content, Venous 6.0 (L) 7.0 - 18.0 %vol Bicarbonate, Whole Blood 31.9 (H) 23.0 - 31.0 mmol/L CRP (INFLAMMATORY MARKER) Result Value Ref Range CRP (Inflammatory Marker) 14 (H) <=5 mg/L CBC Result Value Ref Range WBC 12.22 (H) 4.00 - 10.80 K/uL RBC 3.33 4.50 - 5.25 M/uL HGB 10.8 (L) 14.0 - 16.8 g/dL HCT 31.6 (L) 40.0 - 48.4 % MCV 94.9 82.0 - 99.5 fL MCH 32.4 27.0 - 34.0 pg MCHC 34.2 32.0 - 36.0 g/dL RDW 13.5 11.5 - 15.5 % PLT 428 (H) 140 - 400 K/uL MPV 8.4 6.6 - 11.1 fL nRBCs 0 <=0 /100 WBCs DIFFERENTIAL, AUTOMATED Result Value Ref Range WBC 12.22 (H) 4.00 - 10.80 K/uL Neutrophils % 62.3 40.0 - 75.0 % Lymphocytes % 31.3 18.0 - 42.0 % Monocytes % 5.0 1.0 - 11.0 % Eosinophils % 0.6 0.0 - 6.0 % Basophils % 0.5 0.0 - 2.0 % Immature Granulocytes % 0.3 0.0 - 2.0 % Absolute Neutrophils 7.61 1.80 - 7.70 K/uL Absolute Lymphocytes 3.83 1.00 - 4.80 K/ul Absolute Monocytes 0.61 0.00 - 1.10 K/uL Absolute Eosinophils 0.07 0.00 - 0.70 K/uL Absolute Basophils 0.06 0.00 - 0.20 K/uL Absolute Immature Granulocytes 0.04 0.00 - 0.20 K/uL GLUCOSE METER, POINT OF CARE Result Value Ref Range Glucose Meter 143 (H) 70 - 120 mg/dL Imaging: X-rays were reviewed, the PIP joint is dislocated dorsally into the skin and the middle phalanx is translated volarly relative to the joint. There is some questionable erosion, particularly in the distal aspect of the proximal phalanx near the PIP joint that may suggest osteomyelitis. Postsplinting x-rays pending IMPRESSION: 37-year-old right right-hand dominant male with acute on chronic infection of the rightsmall finger. He has new dislocation on his most recent imaging, however, he claims this deformity has been present for weeks with its associated wound. In addition, the patient is clinically hemodynamically stable at this time. PLAN -No plan for acute orthopedic surgical intervention during this hospitalization. However, patient was informed that we will possibly plan for operative intervention on an outpatient basis -Patient's finger was close quote reduced under the skin and order take tension off of the open wound of the skin. He was then placed in leena tape and a soft dressing as well as a well-padded ulnar gutter splint in this position -recommend continued medical management per hospitalist team -Okay for discharge from ortho perspective when medically clear. Ortho will arrange outpatient follow up with our hand team for definitive management of his infection Provisional care provided, definitive care to follow General supervision provided by Dr. Bolivar, with whom the patient was discussed Given the nature of the patient's traumatic high energy/open injuries, along with the patient's underlying co-morbidities, the patient was informed that he is at higher risk of complications including but not limited to nonunion, malunion, infection, loss of fixation/hardware failure, and the possible need for additional procedures/surgeries as indicated. I have discussed the patient's management with the medical trainee and agree with the note. Please refer to the documented findings and plan of care. The patient's service consisted of a service. I have reviewed the medical history, physical examination, diagnosis, and plan, as performed by the trainee on 10/27/2022 documented in this encounter Nursing Notes * Palak Bautista LPN - 11/02/2022 8:59 AM EDT 0700: Report received from Srikanth RICARDO. Care Assumed at this time, 0835: Assessment completed, see flow sheets for details. A/Ox4. Patient complaining of headache, will administer PRN medication. Right hand in me warp intact. L hand wound open to air. All care needs addressed and call dahl in reach. Care plan for the day discussed with patient. Medication administered per orders, see MAR for details. * Palak Bautista LPN - 11/01/2022 11:41 AM EDT 0700: Report received Melanie RICARDO. Care assumed at this time. Patient laying comfortably in bed with call dahl in reach. Fluids infusing. 0900: Assessment completed, see flow sheets for details. A/Ox4. No complaints at this time. Em wrap intact on right hand/arm. Left hand wound open to air. All care needs addressed and call dahl within reach. Medication administered per orders, see MAR for details. 1111: Zosyn hung per orders, see MAR for details. * Cinthia Ferguson RN - 10/31/2022 11:20 PM EDT 2200 Pt resting in bed, woke easily. Cooperative with assessment, see flowsheets for complete details. Denied pain and nausea. Dressing intact on RUE. Wound on L hand scabbed. Fluids infusing as ordered. Call dahl in reach. * Jaimie Sharma RN - 10/31/2022 8:03 AM EDT Pt BSBS was 71. This RN at bedside, patient denies symptoms of low blood sugar and does not displayany symptoms. Pt given two nutrigrain bars and apple juice at his request and patient consumed snacks/drinks in presence of RN. Pt is AO x 3, but is slow to respond to questions. Pt to go for MRI this morning - this RN requested MRI to please wait for patient consume food and drink d/t low blood sugar. * Lianne Ruelas RN - 10/30/2022 9:44 PM EDT Pt alert and verbal with needs. Pt rested most of shift with eyes closed. Pt denied pain. Dry dressing (em wrap) in place to Right hand. Pt very kind and cooperative with care. Pt refused novolog insulin at night. Pt lantus was changed today to 6 units but pt stated that he didn't want to try to do the coverage for the sliding scale because he would be low in am. Provider aware. No edema noted to BLE. Call dahl in reach. Pt did take colace this evening. Pt has been refusing but states last bm was the 10th. Offered to get him something to help with bowels but wanted to try colace first. No other concerns. * Janeth Parham LPN - 10/29/2022 5:54 PM EDT 1438- YARD STOCKER alerted charge that blood pressure was 83/54, Jaimie Black RN rechecked pressure and it was88/54. Chromo text sent to Dr. Thakkar, patient asymptomatic at this time. 1000 ml fluid bolus ordered by Dr. Thakkar. 1752- repeat blood pressure after fluid bolus was 98/60. Dr. Thakkar aware. * Lianne Ruelas RN - 10/28/2022 9:21 PM EDT Pt alert and verbal with needs. Pt pleasant and cooperative with care. Pt denies pain at this time.Dry dressing in place to right hand. Scabbed area noted to left hand. Pt states that he was very sick last time he had wound on the left hand. Educated pt on importance of going to see the dr when hehas open area like this. Pt states that he does pick at hands. At 2220 pt bs was 297-- administered the 12 units of lantus--- pt states that if 6 units (per sliding scale was administered that he would bottom out. Pt asked for only 3 units to be administered andprovider updated. Pt states that he is aware of s/s of hypo and hyperglycemia. Call dahl in reach. No voiced concerns at this time. * Janeth aPrham LPN - 10/28/2022 8:53 AM EDT 0757- notified by YARD STOCKER patient BSBS was 66, milk given to patient. 0837- BSBS recheck was 60, PRN 16g glucose tabs given to patient. 0900- BSBS recheck 226 Dr. Banda aware. 1059- BSBS recheck was 180. 1229- 2 units given. * Paulette Aragon RN - 10/27/2022 10:53 PM EDT 2100- Pt arrived to unit. Oriented to call dahl and surroundings. Pt has open wound to 5th finger on right hand. Denies pain. Afebrile. Admission assessment completed. Mother at bedside. 0055- Pts BSBS 72. Pt asymptomatic. OJ given. BSBS increased to 90. 0337- Pts BP 78/46. Pts BSBS 66. Pt sleeping but easy to arouse and oriented. Pt given 25mL dextrose per MAR (refusing oral options.) Pt has not voided yet, bladder scanned for >999. Pt immediately felt urge to void after pressure was applied. Voided 900ml bloody urine, specimen sent to lab. Post void residual 116. Dr. Dean made aware. 0404- Repeat BSBS 130. NSS bolus infusing. 0522- Pts BP 98/66 after bolus. documented in this encounter ED Notes * Hue Gonzalez RN - 10/27/2022 5:39 PM EDT Pt presents to the ED with c/o infection. Pt states tat he has a bone infection and MRSA, states that he was diagnosed months ago. Pt states that he has been having nausea, vomiting, weakness at home. Denies fevers or chills. Hypotensive in triage. * Dot Koenig, DO - 10/27/2022 5:37 PM EDT HISTORY OF PRESENT ILLNESS Gil Irby is a 37 year old male who presents to the ED for evaluation of Infection. The patient was seen at 10/27/22 1730. Patient is a 37-year-old male who presents via private vehicle with a chief complaint of an infection. He has past medical history of diabetes, depression, hypothyroidism, bipolar disorder, hyperlipidemia. The patient states that for the past couple of months he was diagnosed with a MRSA infection of his right 5th digit. States that he has not been on antibiotics recently for but it has gotten worse and now has the odor to it. He denies any fevers but does admit to chills and also nausea with nonbloody nonbilious emesis for the past couple of days. He is a diabetic but does not check his glucose regularly. He also admits to not having much of an appetite. 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 Negative for fatigue and fever. HENT: Negative for congestion, rhinorrhea, sinus pressure, sinus pain, sneezing and sore throat. Eyes: Negative for photophobia and visual disturbance. Respiratory: Negative for cough, shortness of breath and wheezing. Cardiovascular: Negative for chest pain and palpitations. Gastrointestinal: Positive for nausea and vomiting. Negative for abdominal pain. Genitourinary: Negative for dysuria, frequency and hematuria. Musculoskeletal: Positive for arthralgias. Negative for myalgias. Skin: Positive for wound. Negative for rash. Neurological: Negative for dizziness, light-headedness and headaches. The patient's allergies, past history, and medications were reviewed. PHYSICAL EXAM Initial Vitals (see all): BP 57/32 | Pulse 95 | Resp 18 | Temp 97.9 | O2 100 %Weight 45.36 kg | Height 167.6 cm | BMI 16.14 kg/m2 Initial Pain Assessment (see all): 6 (severe pain)/10 ([facility] Adult Scale 0-10) Physical Exam Constitutional: General: He is not in acute distress. Appearance: He is not toxic-appearing. HENT: Head: Normocephalic. Mouth/Throat: Mouth: Mucous membranes are moist. Eyes: General: No scleral icterus. Pupils: Pupils are equal, round, and reactive to light. Cardiovascular: Rate and Rhythm: Tachycardia present. Heart sounds: No murmur heard. No gallop. Pulmonary: Effort: No respiratory distress. Breath sounds: Normal breath sounds. No wheezing. Comments: Clear breath sounds in all lung vazquez. No acute respiratory distress. Pulse ox 100% on room air. Abdominal: General: There is no distension. Palpations: Abdomen is soft. Comments: No abdominal tenderness palpation. Abdomen is soft and nondistended. No guarding or rigidity. Musculoskeletal: General: Swelling and tenderness present. Normal range of motion. Cervical back: No rigidity. Comments: Tenderness to palpation of the right 5th digit. There is also swelling noted in a foul odor to it. Lymphadenopathy: Cervical: No cervical adenopathy. Skin: General: Skin is warm. Capillary Refill: Capillary refill takes less than 2 seconds. Findings: Erythema present. Comments: Patient does have foul odor to a wound of the dorsum of the right hand. There is an open area overlying the MCP joints of the 3rd 4th and 5th digits. There is a open wound of the right 5th digit that exposes bone with foul odor to it. He has no sensory deficit. Radial pulse +2. Neurological: Mental Status: He is alert and oriented to person, place, and time. Cranial Nerves: No cranial nerve deficit. Motor: No weakness. PROCEDURES AND TREATMENTS ED Orders | ED Results EKG Interpretation: Sinus rhythm, heart rate 96. No acute ischemic changes seen. MEDICAL DECISION MAKING Nursing notes and vital signs were reviewed. ED consults were placed. ED Course as of 10/27/221999Oct 27, 20221950 I spoke with the hospitalist team and they are agreeable for admission. [MS] ED Course User Index [MS] Dot Koenig DO Patient is a 37-year-old male who presents with a chief complaint of generalized fatigue, nausea vomiting and pain of the right hand. He does have a wound that has been present for 2 months and he has not been on antibiotics. Does look to be infected and I was concerned about osteomyelitis. He did have a foul odor to it and I did include pictures in the chart. Wound culture was obtained. He was hypotensive on arrival and he was given IV fluids and responded well to them. X- ray does show evidence of osteomyelitis he was treated with broad-spectrum antibiotics to cover for MRSA infection. I discussed the case the hospitalist team and they are agreeable for admission. Amount and/or Complexity of Data Reviewed Labs: ordered. Radiology: ordered. ECG/medicine tests: ordered. Risk Prescription drug management. Decision regarding hospitalization. Clinical Impressions Sepsis (HCC) Osteomyelitis of right hand, unspecified type (HCC) Disposition Admitted. I discussed the management of this patient with the admitting provider and I made a decision to admit the patient. Admission Order Ordered Status . 10/27/221950 Admit for Inpatient Services (incl ZPO) ONCE Ordered Dot Koenig documented in this encounter Miscellaneous Notes * Diagnostic Clarification - Denise Mcmillan MD - 11/02/2022 12:56 PM EDT The patient has been diagnosed with sepsis. * Communication - Tiffanie Kilpatrick RN - 11/02/2022 12:42 PM EDT Would recommend removing em wrap and splint daily to examine skin and changing dressing every other day with Aquacel Ag and DSD or non-adherent equivalent. May cleanse w/ mild soap & water. Would also apply a light layer of vaseline ointment over the dry scabbed areas to soften the skin. * Ancillary Progress Note - Lauren Hernandez RN - 11/02/2022 8:00 AM EDT Patient referred to for Wound care. Will await acceptance. * Ancillary Progress Note - Maribell Damon RDN - 11/01/2022 2:39 PM EDT CLINICAL NUTRITION INTERVAL NOTE [facility] [address] Name: Gil Irby Location: [id number] Date: 11/01/2022 Time: 2:39 PM How patient was identified (select 2): Medical record number and Name Gil Irby is being seen in follow up for follow-up Diet: 4 Choices (60 gm) Consistent Carbohydrate Oral Nutrition Supplement (ONS): Boost (1 cup provides 240 calories, 10 grams protein, 41 grams carbohydrate) TID Chart reviewed for pertinent nutrition information. Pt has been diet, consuming >75% of meals and supplements at this time. Discussed pt with nursing, possible discharge today. Will continue to monitor pt's PO intake. Wt increased since admission; is increased 10 lbs - will order standing scale wt to assess accuracy. NUTRITION INTERVENTION/PLAN: Orders: Weight Continue current care plan Clinical Nutrition Recommendations: Diet: Continue current nutrition plan Maribell Damon MS, RDN, LDN Clinical Dietitian [facility] Available via [employer] Text [phone] * Care Plan - Jaimie Sharma RN - 10/31/2022 5:38 PM EDT Clinical Goal(s): Pt will remain free of falls this shift (10/31/22 3686) Possible barriers to meeting goal(s)/advancing plan of care: Admitting diagnosis, hospital environment. Stability of the patient: Moderately unstable - medium risk of patient condition declining or worsening Summary regarding today's goal(s): Met - pt was free of falls this shift. Recommendations: Continue to follow plan of care, fall precautions. * Care Plan - Tiffany Cruz RN - 10/30/2022 6:29 PM EDT Clinical Goal(s): pt will not have any falls this shift (10/30/22 0700) Possible barriers to meeting goal(s)/advancing plan of care: tired , iv fluids infusing Stability of the patient: Moderately stable - low risk of patient condition declining or worsening Summary regarding today's goal(s): Met: no falls this shift Recommendations: monitor * Ancillary Progress Note - Lennie Zhang, Nuclear Control Operator - 10/30/2022 5:55 PM EDT CARE MANAGEMENT - ADULT INITIAL SCREENING [address] [address] Name: Gil Irby [address]: [address] Date: 10/30/2022 Time: 5:55 PM Patient Class: Inpatient (10/30/221811) Discussed patient with the interdisciplinary care team. This Quantitative Researcher performed a chart review and met with Patient at bedside to complete admission screen and assessed needs for transition planning. The animal daycare provider role and services were explained and emotional support was provided. 30 Day Readmission Screening 30 Day Readmission Readmission within 30 days?: No (10/30/221811) Chief Complaint: Infection Prior Living Arrangements What was your living situation prior to admission/observation?: With Parent;Independently () Do you have any children, pets, or other dependents that you are currently caring for?: No (10/30/221811) Living Quarters: House (10/30/221811) How many stories is the dwelling?: Two Stories (10/30/221811) Number of steps to enter living quarters:: 3 (10/30/221811) Location of bathroom(s): Upstairs only (10/30/221811) Do you have serious difficulty walking or climbing stairs? (5 years old or older): Yes (10/30/221811) History of falling: Yes (10/30/221811) Prior Level of Functioning Describe the patient's ability prior to admission/observation to perform ADLs: Performs independently (10/30/221811) Describe the patient's mobility status prior to admission: Patient ambulates independently (10/30/221811) Patient uses assistive device: Yes (10/30/221811) If yes, choose:: Cane;Wheelchair (10/30/221811) Caregiver Information Patient Contacts Name Relation Home Work Mobile Shannon Rojas Mother [phone] Monica Irby Spouse [phone] Calli Irby Other - (no specific identity) [phone] Thalia Etienne Grandparent [phone] Risk Stratification/Psychosocial/Care Gaps Risk Stratification Medical and Behavioral Health Concerns Identified: Multiple comorbidities;Substance Abuse () Psycho Social/Care Gaps concerns identified upon admission:: N/A (10/30/221811) Accessed [employer] to connect patients to social care resources: No (10/30/221811) OBRA or OPTIONS needed for placement: No (10/30/221811) Readmission Risk Score: 24 (10/30/221811) AM-PAC Score With Stairs : 21 (10/30/22825) Comments: Patient arrived at [facility] ED for evaluation of infection. PMH depression, type onw diabetes,Bipolar 1, Osteomyelitis, Hypothyroidism, neuropathy, ADHD. Consults Orthopaedics, Nutrition, CM. Patient reported that he lives home with his parents in a two story home with parents. Patient is independent with ADLs and uses cane and wheelchair when needed. Patient uses oxygen from [facility] home. Patient is open to home health for meds but is not interested in placement. Am Pac 21 [facility] Prior to Admission Services Services Prior to Admission TRUST OFFICER Services (Services received within the last 30 days with exception, Psych within last two years): N/A (10/30/221811) [place] Dept. of Aging (PDA) Waiver Program: N/A (10/30/221811) TRUST OFFICER Transportation (Services received within the last 30 days): Patient drives self;Family/Friends Personal Vehicle (10/30/221811) Outpatient Quantitative Researcher: no, not applicable Patient/Family Expectations: d/c home with hh Anticipated Disposition Plan & Post Acute Needs Anticipated Plan Anticipated D/C disposition per abbreviated screening: Post hospitalization needs identified, continue to monitor for transition planning (10/30/221811) Anticipated Post-Acute Care needs identified: Home Care Services;IV Infusion;Oxygen (oxygen from [facility]) (10/30/221811) For further screening information, please refer to the Care Management flow document. * Inpatient Ask-A-Doc - Tere Sparks MD - 10/30/2022 2:43 PM EDT ASK-A-DOC Inpatient Note [facility] [id number] Name: Gil Irby Location: [place] [id number]/ Date: 10/30/2022 Time: 2:43 PM Date of Response: 10/30/2022 Assessment: Lt fifth finger infection with likely osteomyelitis Recommendations: - We agree with IV vanco and IV piptazo for now. - We will F/U on the MRI left hand. - If the MRI shows osteo, would appreciate ortho team assessment for possible debridement and sending for intraop cultures. - If the MRI shows osteo with no plans for surgery, would recommend obtaining a bone biopsy to guide antibiotic treatment. Time spent: 15 minutes * Medical Necessity - Tiffany Quiles RN - 10/27/2022 10:03 PM EDT AdmissionCare Guideline: Osteomyelitis, Inpatient Based on the indications selected for the patient, the bed status of Admit to Inpatient was determined to be MET The following indications were selected as present at the time of evaluation of the patient: Outpatient intravenous therapy is not appropriate, as indicated by 1 or more of the following: - - It is not available or cannot be arranged in clinically appropriate time frame (eg, next day). Clinical presentation (eg, acuity of infection, rapidity of progression, bacteremia, Immunosuppressed patient) is judged to require an intensity of patient monitoring and care (eg, vital sign measurement, checks for infection progression, debridement) that cannot be provided at other than inpatientlevel of care. - Additional Information: 37 yo gentleman with history of DM I, neuropathy, depression, opioid use, bipolar, HLD, ADHD, malnutrition, compulsive skin picking who came with history of two months right 5th finger infection which has been getting progressively worse. Patient was admitted two months ago in the ICU due to same infection and was dx with MRSA infection -Sepsis due to osteomyelitis right hand -Osteomyelitis 5th finger Solely for purpose of utilization review and payment; not a diagnostic tool. AdmissionCare documentation entered by: Tiffany Quiles [facility] [employer], 26th edition, Copyright 2021 [facility] [employer] [facility] All Rights Reserved. [id number]:29-04:00 * Communication - Jevon Roberts RN - 10/27/2022 8:03 PM EDT Hand-Off - Nurse Communication Note Name: Gil Irby Location: Date: 10/27/2022 Time: 8:03 PM Sending to: [id number] Safety Concerns: Fall Risk and Has patient fallen this encounter? No Allergies: Patient has no known allergies. Code Status: Full Code Discussion of adv directives occurred with - adult: Patient Does patient have living will: No Does patient have health care power of pants closer: No Isolation: None Isolation flowsheet: Special Needs: Isolation [10] Special Needs comments: Group A strep 10/27/22 Attention to: 4B Report from: Jevon Roberts RN Phone extension: [phone] Patient arriving via: Stretcher Reason for SBAR handoff: Admission Situation/Background Admission date: 10/27/2022 Patient Service: Hospitalists [[id number]] Attending Provider: Gail Dean MD Admitting diagnosis: Sepsis (HCC) Chief Complaint: Infection Problem list: Principal Problem: Osteomyelitis (HCC) Active Problems: Depression, major, recurrent, moderate (HCC) Hypothyroidism Type 1 diabetes mellitus with hemoglobin A1c goal of less than 8.0% (HCC) Neuropathy Mixed dyslipidemia ADHD (attention deficit hyperactivity disorder), combined type Bipolar 1 disorder, depressed (HCC) Smoking Type 1 diabetes mellitus with diabetic polyneuropathy (HCC) Malnutrition of moderate degree (HCC) Severe protein-calorie malnutrition (HCC) Opioid use disorder, severe, on maintenance therapy (HCC) Compulsive skin picking Resolved Problems: * No resolved hospital problems. * Level of Care: Med Surg [3] Assessment Vital Signs: BP: 119/86 (10/27/221899) Temp: 36.6 C (97.9 F) (10/27/221726) Pulse: 82 (10/27/221899) Resp: 18 (10/27/221899) SpO2: 98 % (10/27/221899) Weight: 45.4 kg (100 lb) (10/27/221726) Height: 167.6 cm (5' 6") (10/27/221726) Fall Scale: Fall Score: 45 (10/27/221804) Neurological: [place] Coma Scale Eyes Open: Spontaneous (10/27/221726) Best Verbal Response: Verbally appropriate for age (10/27/221726) Best Motor Response: Obeys commands appropriate for age (10/27/221726) Coma Score: 15 (10/27/221726) Additional Neurological Information: Respiratory: Respiratory WNL: WNL- within normal limits (10/27/221805) Depth/Rhythm: Regular (10/27/221805) Dyspnea Occurance: None (10/27/221805) Effort: Unlabored (10/27/221805) Additional Respiratory Information: Cardiac: Rhythm: Regular;NSR (10/27/221805) Extremities: +Sensation;Right;Left;Upper;Lower;[place];Warm (10/27/221805) Pulses Right: Palpable;Dorsalis Pedis +;Radial + (10/27/221805) Pulses Left: Palpable;Dorsalis Pedis +;Radial + (10/27/221805) Edema: No (10/27/221805) Additional Cardiac Information: GI/: Additional GI/ Information: Integumentary: Skin Description: Dry;Warm (10/27/221805) Skin Color: Flesh Tone (10/27/221805) Additional Integumentary Information: Restraints: No orders of the defined types were placed in this encounter. Lines: Peripheral Line Left;Lower Arm 18 Gauge (Active) Number of days: 0 Peripheral Line Left;Upper Arm 18 Gauge (Active) Number of days: 0 Labs: Labs This Encounter COMPREHENSIVE METABOLIC PANEL - Abnormal; Notable for the following components: Result Value Ref Range Glucose 143 70 - 120 mg/dL Albumin 3.5 3.8 - 5.0 g/dL ALT 62 10 - 50 U/L All other components within normal limits BLOOD GAS, VENOUS - Abnormal; Notable for the following components: pCO2, Venous 63.7 40.0 - 60.0 mmHg pO2, Venous 22.6 25.0 - 50.0 mmHg Base Excess, Venous 4.9 -2.0 - 2.0 mmol/L Hemoglobin, Whole Blood 11.0 14.0 - 16.8 g/dL Oxyhemoglobin, Venous 38.9 40.0 - 85.0 % total Hgb Carboxyhemoglobin, Whole Blood 3.8 <=1.5 % total Hgb O2 Content, Venous 6.0 7.0 - 18.0 %vol Bicarbonate, Whole Blood 31.9 23.0 - 31.0 mmol/L All other components within normal limits CRP (INFLAMMATORY MARKER) - Abnormal; Notable for the following components: CRP (Inflammatory Marker) 14 <=5 mg/L All other components within normal limits CBC - Abnormal; Notable for the following components: WBC 12.22 4.00 - 10.80 K/uL HGB 10.8 14.0 - 16.8 g/dL HCT 31.6 40.0 - 48.4 % PLT 428 140 - 400 K/uL All other components within normal limits DIFFERENTIAL, AUTOMATED - Abnormal; Notable for the following components: WBC 12.22 4.00 - 10.80 K/uL All other components within normal limits GLUCOSE METER, POINT OF CARE - Abnormal; Notable for the following components: Glucose Meter 143 70 - 120 mg/dL All other components within normal limits PROCALCITONIN - Normal Narrative: Less than 0.5 ng/mL: Low risk for progression to sepsis. Review patients condition for localized infections. 0.5 to 2.0 ng/mL: Intermediate risk for progresion to sepsis. Review underlying conditions. Recommend repeat PCT after 6 hours has elapsed. Greater than 2.0 ng/mL: high risk for progression to sepsis unless other causes are known. TROPONIN T, HIGH SENSITIVITY - Normal LACTATE, WHOLE BLOOD WITH REFLEX IF ABNORMAL - Normal PT INR - Normal Narrative: Warfarin Therapy INR: 2.0-3.0 conventional anticoagulation INR: 2.5-3.5 high intensity anticoagulation APTT - Normal Narrative: Anticoagulation may affect testing. Refer to Q.ME Test Catalog for a listof effects. CBC WITH WBC DIFFERENTIAL Narrative: The following orders were created for panel order CBC WITH WBC DIFFERENTIAL. Procedure Abnormality Status --------- ------ CBC[[id number]] Abnormal Final result DIFFERENTIAL, AUTOMATED[[id number]] Abnormal Final result Please view results for these tests on the individual orders. EXTRA TUBES Narrative: The following orders were created for panel order EXTRA TUBES. Procedure Abnormality Status --------- ------ EXTRA HOANG TOP[[id number]] Final result Please view results for these tests on the individual orders. EXTRA HOANG TOP URINALYSIS, REFLEX TO MICROSCOPIC CULTURE, BLOOD CULTURE, BLOOD CULTURE, WOUND, DEEP, AEROBIC AND ANAEROBIC MRSA SCREEN, PCR GLUCOSE METER, POINT OF CARE (COMMUNICATION ORDER) [...] Fluid Restriction (ml): None Additional Diet Information: Intake and Output: No intake or output data in the 24 hours ending 10/27/222002 Patient Belongings and Home Medications Patient Belongings at Bedside Belongings at Bedside: Clothing (10/27/221804) Clothing: Shirt;Jacket/coat (10/27/221804) Patient Belongings Sent Home (Does not apply to Ambulatory areas) Belongings Sent Home: None (10/27/221804) Patient Belongings Sent to Safe/Locker Belongings Sent to Safe: None (10/27/221804) Patient Medications Medications Brought by Patient?: No (10/27/221804) Recommendations/Follow up Goals/Plan of Care: Consults not completed: Anticipated tests/studies/procedures: Medication Reconcilliation completed for this Admission? No * ED Dedicated Owner Operator Note - Jevon Roberts RN - 10/27/2022 6:08 PM EDT Pt has an open wound to right 5th digit with purulent discharge noted. Pt c/o pain in that finger. Sensation is intact. Wound culture obtained and sent to lab. IV x2 started, blood drawn and sent to lab. IV fluids infusing as ordered and without complications. IV antibiotics initiated. CCM on and pt noted to be NSR. Pt denies any current needs. Call dahl is within reach. Mother is at bedside. documented in this encounter Plan of Treatment Upcoming Encounters Date Type Specialty Care Team Description 11/07/2022 Office Visit Orthopedics Gigi Parson MD [address] [place] [address] 11/09/2022 Office Visit Wound Care Madi Lerma MD [address] [place] [address] 11/16/2022 Office Visit Family Medicine Av Graves MD [address] [place] [phone] 11/21/2022 Office Visit Wound Care Mikael Caldera MD [address] [place] [address] [place] [id number] 11/28/2022 Office Visit Ophthalmology Jorge Shepherd DO [address] [place] [phone] 12/27/2022 Office Visit Family Medicine vA Graves MD [address] [facility] [place] [address] Scheduled Referrals Name Type Priority Associated Diagnoses Orde r Schedule PHARMACIST MEDS THERAPY MGMT REFERRAL OP Referral Within 10 days (routine) Type 1 diabetes mellitus with diabetic polyneuropathy (HCC) Type 1 diabetes mellitus with hemoglobin A1c goal of less than 8.0% (HCC) Ordered: 11/01/2022 Health Maintenance Due Date Last Done Comments DISCUSS TOBACCO CESSATION (REFER TO SMARTSET #[id number]) 1985 Hepatitis B (1 of 3 - [...] Comments GLUCOSE METER, POINT OF CARE ADARSH 11/02/2022 11:36 AM EDT GLUCOSE METER, POINT OF CARE ADARSH 11/02/2022 7:29 AM EDT GLUCOSE METER, POINT OF CARE ADARSH 11/01/2022 9:22 PM EDT GLUCOSE METER, POINT OF CARE ADARSH 11/01/2022 4:34 PM EDT GLUCOSE METER, POINT OF CARE ADARSH 11/01/2022 11:28 AM EDT GLUCOSE METER, POINT OF CARE ADARSH 11/01/2022 7:47 AM EDT BASIC METABOLIC PANEL Routine 11/01/2022 5:39 AM EDT CBC Routine 11/01/2022 5:39 AM EDT GLUCOSE METER, POINT OF CARE ADARSH 10/31/2022 9:12 PM EDT GLUCOSE METER, POINT OF CARE ADARSH 10/31/2022 4:30 PM EDT GLUCOSE METER, POINT OF CARE ADARSH 10/31/2022 11:43 AM EDT MRI HAND LEFT WO CONTRAST Routine 10/31/2022 10:52 AM EDT MRI HAND RIGHT WO CONTRAST Routine 10/31/2022 10:51 AM EDT GLUCOSE METER, POINT OF CARE ADARSH 10/31/2022 7:44 AM EDT VANCOMYCIN RANDOM Timed 10/31/2022 6:0 1 AM EDT BASIC METABOLIC PANEL Routine 10/31/2022 6:01 AM EDT PHOSPHORUS Routine 10/31/2022 6:01 AM EDT CBC Routine 10/31/2022 6:01 AM EDT MAGNESIUM Routine 10/31/2022 6:01 AM EDT GLUCOSE METER, POINT OF CARE ADARSH 10/30/2022 9:45 PM EDT GLUCOSE METER, POINT OF CARE ADARSH 10/30/2022 5:01 PM EDT GLUCOSE METER, POINT OF CARE ADARSH 10/30/2022 11:39 AM EDT GLUCOSE METER, POINT OF CARE ADARSH 10/30/2022 9:01 AM EDT GLUCOSE METER, POINT OF CARE ADARHS 10/30/2022 7:51 AM EDT GLUCOSE METER, POINT OF CARE ADARSH 10/30/2022 7:48 AM EDT GLUCOSE METER, POINT OF CARE ADARSH 10/30/2022 7:46 AM EDT BASIC METABOLIC PANEL STAT 10/30/2022 4:09 AM EDT TYPE AND SCREEN Routine 10/30/2022 4:09 AM EDT LACTATE STAT 10/30/2022 4:09 AM EDT CALCIUM, IONIZED Routine 10/30/2022 4:09 AM EDT CBC STAT 10/30/2022 4:09 AM EDT GLUCOSE METER, POINT OF CARE ADARSH 10/29/2022 9:14 PM EDT GLUCOSE METER, POINT OF CARE ADARSH 10/29/2022 4:10 PM EDT GLUCOSE METER, POINT OF CARE ADARSH 10/29/2022 10:53 AM EDT GLUCOSE METER, POINT OF CARE ADARSH 10/29/2022 7:42 AM EDT VANCOMYCIN RANDOM Timed 10/29/2022 7:2 5 AM EDT BASIC METABOLIC PANEL Routine 10/29/2022 7:25 AM EDT CALCIUM, IONIZED Routine 10/29/2022 7:25 AM EDT CBC Routine 10/29/2022 7:25 AM EDT GLUCOSE METER, POINT OF CARE ADARSH 10/28/2022 10:11 PM EDT EXTRA URINE Routine 10/28/2022 4:58 PM EDT EXTRA TUBES Routine 10/28/2022 4:58 PM EDT EXTRA URINE Routine 10/28/2022 4:55 PM EDT EXTRA TUBES Routine 10/28/2022 4:55 PM EDT CULTURE, URINE, QUANTITATIVE Routine 10/28/2022 4:47 PM EDT GLUCOSE METER, POINT OF CARE ADARSH 10/28/2022 4:37 PM EDT GLUCOSE METER, POINT OF CARE ADARSH 10/28/2022 11:02 AM EDT GLUCOSE METER, POINT OF CARE ADARSH 10/28/2022 9:15 AM EDT GLUCOSE METER, POINT OF CARE ADARSH 10/28/2022 8:36 AM EDT BASIC METABOLIC PANEL Routine 10/28/2022 7:59 AM EDT CBC Routine 10/28/2022 7:59 AM EDT MAGNESIUM Routine 10/28/2022 7:59 AM EDT GLUCOSE METER, POINT OF CARE ADARSH 10/28/2022 7:58 AM EDT HEMOGLOBIN A1C Routine 10/28/2022 7:58 AM EDT GLUCOSE METER, POINT OF CARE ADARSH 10/28/2022 6:11 AM EDT GLUCOSE METER, POINT OF CARE ADARSH 10/28/2022 4:04 AM EDT MICROSCOPIC EXAM, URINE STAT 10/28/2022 3:53 AM EDT URINALYSIS, REFLEX TO MICROSCOPIC STAT 10/28/2022 3:53 AM EDT GLUCOSE METER, POINT OF CARE ADARSH 10/28/2022 3:31 AM EDT GLUCOSE METER, POINT OF CARE ADARSH 10/28/2022 12:57 AM EDT GLUCOSE METER, POINT OF CARE ADARSH 10/28/2022 12:02 AM EDT XR HAND 2 VIEWS STAT 10/27/2022 10:39 PM EDT MRSA SCREEN, PCR Routine 10/27/2022 10:0 9 PM EDT GLUCOSE METER, POINT OF CARE ADARSH 10/27/2022 9:07 PM EDT XR CHEST 1 VIEW STAT 10/27/2022 6:12 PM EDT XR FINGERS 2 OR MORE VIEWS STAT 10/27/2022 6:12 PM EDT CULTURE, WOUND, DEEP, AEROBIC AND ANAEROBIC STAT 10/27/2022 5:55 PM EDT LACTATE, WHOLE BLOOD WITH REFLEX IF ABNORMAL STAT 10/27/2022 5:47 PM EDT EXTRA HOANG TOP Routine 10/27/2022 5:47 PM EDT EXTRA TUBES Routine 10/27/2022 5:47 PM EDT DIFFERENTIAL, AUTOMATED STAT 10/27/2022 5:47 PM EDT TROPONIN T, HIGH SENSITIVITY STAT 10/27/2022 5:47 PM EDT PROCALCITONIN STAT 10/27/2022 5:47 PM EDT BLOOD GAS, VENOUS STAT 10/27/2022 5:4 7 PM EDT TSH WITH FREE T4 IF INDICATED Add-on 10/27/2022 5:47 PM EDT CRP (INFLAMMATORY MARKER) STAT 10/27/2022 5:47 PM EDT COMPREHENSIVE METABOLIC PANEL STAT 10/27/2022 5:47 PM EDT CBC WITH WBC DIFFERENTIAL STAT 10/27/2022 5:47 PM EDT PT INR STAT 10/27/2022 5:47 PM EDT APTT STAT 10/27/2022 5:47 PM EDT CBC STAT 10/27/2022 5:47 PM EDT T4, FREE Routine 10/27/2022 5:47 PM EDT CULTURE, BLOOD STAT 10/27/2022 5:45 PM EDT CULTURE, BLOOD STAT 10/27/2022 5:38 PM EDT GLUCOSE METER, POINT OF CARE ADARSH 10/27/2022 5:37 PM EDT HC ECG TRACING ONLY STAT 10/27/2022 5 :32 PM EDT Sepsis (HCC) documented in this encounter Results * (ABNORMAL) GLUCOSE METER, POINT OF CARE (11/02/2022 11:36 AM EDT) Glucose Meter 171(H) 70 - 120 mg/dL 11/02/2022 10:22 PM EDT [facility] Blood Whole blood specimen / Unknown 11/02/2022 11:36 AM EDT 11/02/2022 10:22 PM EDT Denise Mcmillan MD LAB POINT OF CARE TEST DOCKED DEVICE UNSOLICITED RESULTS Performing Organization Address City/[facility]/ZIP Co de Phone Number [facility] [address] [place] [address] * (ABNORMAL) GLUCOSE METER, POINT OF CARE (11/02/2022 7:29 AM EDT) Glucose Meter 124(H) 70 - 120 mg/dL 11/02/2022 10:22 PM EDT [facility] Blood Whole blood specimen / Unknown 11/02/2022 7:29 AM EDT 11/02/2022 10:22 PM EDT Denise Mcmillan MD LAB POINT OF CARE TEST DOCKED DEVICE UNSOLICITED RESULTS [facility] [address] [place] [address] * (ABNORMAL) GLUCOSE METER, POINT OF CARE (11/01/2022 9:22 PM EDT) Glucose Meter 272(H) 70 - 120 mg/dL 11/01/2022 9:29 PM EDT [facility] Blood Whole blood specimen / Unknown 11/01/2022 9:22 PM EDT 11/01/2022 9:29 PM EDT Denise Mcmillan MD LAB POINT OF CARE TEST DOCKED DEVICE UNSOLICITED RESULTS Performing Organization Address [facility] de Phone Number [facility] [address] [place] [address] * (ABNORMAL) GLUCOSE METER, POINT OF CARE (11/01/2022 4:34 PM EDT) Glucose Meter 254(H) 70 - 120 mg/dL 11/01/2022 6:43 PM EDT [facility] Blood Whole blood specimen / Unknown 11/01/2022 4:34 PM EDT 11/01/2022 6:43 PM EDT Denise Mcmillan MD LAB POINT OF CARE TEST DOCKED DEVICE UNSOLICITED RESULTS Performing Organization Address [facility] Phone Number [facility] [address] [place] [address] * (ABNORMAL) GLUCOSE METER, POINT OF CARE (11/01/2022 11:28 AM EDT) Glucose Meter 148(H) 70 - 120 mg/dL 11/01/2022 6:42 PM EDT [facility] Blood Whole blood specimen / Unknown 11/01/2022 11:28 AM EDT 11/01/2022 6:42 PM EDT Denise Mcmillan MD LAB POINT OF CARE TEST DOCKED DEVICE UNSOLICITED RESULTS Performing Organization Address [facility] de Phone Number [facility] [address] [place] [address] * (ABNORMAL) GLUCOSE METER, POINT OF CARE (11/01/2022 7:47 AM EDT) Glucose Meter 161(H) 70 - 120 mg/dL 11/01/2022 6:41 PM EDT [facility] Blood Whole blood specimen / Unknown 11/01/2022 7:47 AM EDT 11/01/2022 6:41 PM EDT Denise Mcmillan MD LAB POINT OF CARE TEST DOCKED DEVICE UNSOLICITED RESULTS [facility] [address] [facility] [place] [address] * (ABNORMAL) BASIC METABOLIC PANEL (11/01/2022 5:39 AM EDT) BUN 17 6 - 20 mg/dL 11/01/2022 6:15 AM EDT [facility] Creatinine 1.0 0.6 - 1.2 mg/dL 11/01/2022 6:15 AM EDT [facility] Estimated Glomerular Filtration Rate >90 >=60 mL/min 11/01/2022 6:15 AM EDT [facility] Comment:eGFR is calculated b ased on the CKD-EPI 2020 equation Sodium 140 135 - 146 mmol/L 11/01/2022 6:15 AM EDT [facility] Potassium 3.8 3.5 - 5.1 mmol/L 11/01/2022 6:15 AM EDT [facility] Chloride 108(H) 98 - 107 mmol/L 11/01/2022 6:15 AM EDT [facility] CO2 28 22 - 32 mmol/L 11/01/2022 6:15 AM EDT [facility] Anion Gap 4(L) 7 - 15 mmol/L 11/01/2022 6:15 AM EDT [facility] Glucose 164(H) 70 - 120 mg/dL 11/01/2022 6:15 AM EDT [facility] Calcium 7.8(L) 8.4 - 10.2 mg/dL 11/01/2022 6:15 AM EDT [facility] Blood Venous blood specimen / Unknown Venipuncture / Unknown 11/01/2022 5:39 AM EDT 11/01/2022 5:50 AM EDT Denise Mcmillan MD LAB BLOOD OR DERABLES Performing Organization Address City/[facility]/ZIP Co de Phone Number [facility] [address] [facility] [address] * (ABNORMAL) CBC (11/01/2022 5:39 AM EDT) WBC 6.19 4.00 - 10.80 K/uL 11/01/2022 5:53 AM EDT [facility] RBC 2.81 4.50 - 5.25 M/uL 11/01/2022 5:53 AM EDT [facility] HGB 9.0(L) 14.0 - 16.8 g/dL 11/01/2022 5:53 AM EDT [facility] HCT 27.5(L) 40.0 - 48.4 % 11/01/2022 5:53 AM EDT [facility] MCV 97.9 82.0 - 99.5 fL 11/01/2022 5:53 AM EDT [facility] MCH 32.0 27.0 - 34.0 pg 11/01/2022 5:53 AM EDT [facility] MCHC 32.7 32.0 - 36.0 g/dL 11/01/2022 5:53 AM EDT [facility] RDW 14.1 11.5 - 15.5 % 11/01/2022 5:53 AM EDT [facility] PLT 350 140 - 400 K/uL 11/01/2022 5:53 AM EDT [facility] MPV 8.5 6.6 - 11.1 fL 11/01/2022 5:53 AM EDT [facility] nRBCs 0 <=0 /100 WBCs 11/01/2022 5:53 AM EDT [facility] Blood Venous blood specimen / Unknown Venipuncture / Unknown 11/01/2022 5:39 AM EDT 11/01/2022 5:50 AM EDT Denise Mcmillan MD LAB BLOOD OR DERABLES LABORATORY [address] [id number] * (ABNORMAL) GLUCOSE METER, POINT OF CARE (10/31/2022 9:12 PM EDT) Glucose Meter 230(H) 70 - 120 mg/dL 10/31/2022 9:24 PM EDT [facility] Blood Whole blood specimen / Unknown 10/31/2022 9:12 PM EDT 10/31/2022 9:24 PM EDT Denise Mcmillan MD LAB POINT OF CARE TEST DOCKED DEVICE UNSOLICITED RESULTS Performing Organization Address [facility] Co de Phone Number [facility] [address] [place] [address] * (ABNORMAL) GLUCOSE METER, POINT OF CARE (10/31/2022 4:30 PM EDT) Glucose Meter 245(H) 70 - 120 mg/dL 10/31/2022 9:23 PM EDT [facility] Blood Whole blood specimen / Unknown 10/31/2022 4:30 PM EDT 10/31/2022 9:23 PM EDT Denise Mcmillan MD LAB POINT OF CARE TEST DOCKED DEVICE UNSOLICITED RESULTS Performing Organization Address [facility] Phone Number [facility] [address] [place] [address] * (ABNORMAL) GLUCOSE METER, POINT OF CARE (10/31/2022 11:43 AM EDT) Glucose Meter 202(H) 70 - 120 mg/dL 10/31/2022 9:23 PM EDT [facility] Blood Whole blood specimen / Unknown 10/31/2022 11:43 AM EDT 10/31/2022 9:23 PM EDT Denise Mcmillan MD LAB POINT OF CARE TEST DOCKED DEVICE UNSOLICITED RESULTS Performing Organization Address [facility] de Phone Number [facility] [address] [place] [address] * MRI HAND LEFT WO CONTRAST (10/31/2022 10:52 AM EDT) Anatomical Region Laterality Modality Upper Extremity, Hand Magnetic R esonance 10/31/2022 12:2 8 PM EDT Narrative 10/31/2022 12:26 PM EDT EXAM: MRI HAND LEFT WO CONTRAST HISTORY: Rule out osteomyelitis. Assess hand infections COMPARISON: Radiograph 06/29/2022 TECHNIQUE: Multiplanar multisequence MRI imaging left hand without contrast. FINDINGS: Soft tissue: There is a wound dorsally at the 5th PIP joint with mild soft tissue edema. Tendons: There is focal irregularity of the 5th extensor tendon at the level of the PIP joint. Bone and joint: There is gross erosion of bone at both sides of the 5th proximal interphalangeal joint; there is only minimal associated bone edema. IMPRESSION: Left: 1. Erosion of the 5th proximal interphalangeal joint is consistent with prior septic arthritis and osteomyelitis. The lack of edema is consistent with treated infection. 2. Tear of the 5th extensor tendon at the level of the proximal interphalangeal joint. Procedure Note Gigi Reyes MD - 10/31/2022 EXAM: MRI HAND LEFT WO CONTRAST HISTORY: Rule out osteomyelitis. Assess hand infections COMPARISON: Radiograph 06/29/2022 TECHNIQUE: Multiplanar multisequence MRI imaging left hand without contrast. FINDINGS: Soft tissue: There is a wound dorsally at the 5th PIP joint with mild softtissue edema. Tendons: There is focal irregularity of the 5th extensor tendon at thelevel of the PIP joint. Bone and joint: There is gross erosion of bone at both sides of the 5thproximal interphalangeal joint; there is only minimal associated boneedema. IMPRESSION: Left: 1. Erosion of the 5th proximal interphalangeal joint is consistent withprior septic arthritis and osteomyelitis. The lack of edema is consistentwith treated infection. 2. Tear of the 5th extensor tendon at the level of the proximalinterphalangeal joint. Denise Mcmillan MD RAD MRI-MRA * MRI HAND RIGHT WO CONTRAST (10/31/2022 10:51 AM EDT) Anatomical Region Laterality Modality Upper Extremity, Hand Magnetic R esonance 10/31/2022 12:0 1 PM EDT Narrative 10/31/2022 11:59 AM EDT EXAM: MRI HAND RIGHT WO CONTRAST HISTORY: Rule [...] 3. Tear of the 5th extensor tendon. Procedure Note Gigi Reyes MD - 10/31/2022 EXAM: MRI HAND RIGHT WO CONTRAST HISTORY: Rule out osteomyelitis. Assess hand infections COMPARISON: Radiograph 10/27/2022 TECHNIQUE: Multiplanar multisequence MRI imaging right hand without contrast. FINDINGS: Soft tissue: There is an open wound dorsal at the proximal interphalangealjoint with soft tissue edema. Tendons: Tear of the 5th extensor tendon at the level of the PIP joint. Bone and joint: There is bone edema at the 5th proximal interphalangealjoint (base of the middle phalanx and head of the proximal phalanx).There is volar dislocation of the PIP joint. IMPRESSION: Right: 1. Open wound dorsally at the 5th finger. 2. Dislocation of the 5th proximal interphalangeal joint. Bone edema atthe joint is a nonspecific finding which can be seen with trauma andosteomyelitis. 3. Tear of the 5th extensor tendon. Denise Mcmillan MD RAD MRI-MRA * GLUCOSE METER, POINT OF CARE (10/31/2022 7:44 AM EDT) Pathologist [facility] Glucose Meter 71 70 - 120 mg/dL 10/31/2022 8:05 AM EDT [facility] Blood Whole blood specimen / Unknown 10/31/2022 7:44 AM EDT 10/31/2022 8:05 AM EDT Denise Mcmillan MD LAB POINT OF CARE TEST DOCKED DEVICE UNSOLICITED RESULTS Performing Organization Address [facility] Co de Phone Number [facility] [address] [place] [address] * PHOSPHORUS (10/31/2022 6:01 AM EDT) Phosphorus 2.5 2.5 - 4.8 mg/dL 10/31/2022 6:44 AM EDT [facility] Blood Venous blood specimen / Unknown Venipuncture / Unknown 10/31/2022 6:01 AM EDT 10/31/2022 6:24 AM EDT Denise Mcmillan MD LAB BLOOD OR DERABLES Performing Organization Address [facility] de Phone Number LABORATORY [address] [address] * MAGNESIUM (10/31/2022 6:01 AM EDT) Magnesium 1.8 1.5 - 2.6 mg/dL 10/31/2022 6:44 AM EDT [facility] Blood Venous blood specimen / Unknown Venipuncture / Unknown 10/31/2022 6:01 AM EDT 10/31/2022 6:24 AM EDT Denise Mcmillan MD LAB BLOOD OR DERABLES Performing Organization Address [facility] de Phone Number LABORATORY [address] [address] * (ABNORMAL) BASIC METABOLIC PANEL (10/31/2022 6:01 AM EDT) BUN 20 6 - 20 mg/dL 10/31/2022 6:44 AM EDT [facility] Creatinine 1.1 0.6 - 1.2 mg/dL 10/31/2022 6:44 AM EDT [facility] Estimated Glomerular Filtration Rate >90 >=60 mL/min 10/31/2022 6:44 AM EDT [facility] Comment:eGFR is calculated b ased on the CKD-EPI 2020 equation Sodium 139 135 - 146 mmol/L 10/31/2022 6:44 AM EDT [facility] Potassium 3.7 3.5 - 5.1 mmol/L 10/31/2022 6:44 AM EDT [facility] Chloride 109(H) 98 - 107 mmol/L 10/31/2022 6:44 AM EDT [facility] CO2 27 22 - 32 mmol/L 10/31/2022 6:44 AM EDT [facility] Anion Gap 3(L) 7 - 15 mmol/L 10/31/2022 6:44 AM EDT [facility] Glucose 106 70 - 120 mg/dL 10/31/2022 6:44 AM EDT [facility] Calcium 7.9(L) 8.4 - 10.2 mg/dL 10/31/2022 6:44 AM EDT [facility] Blood Venous blood specimen / Unknown Venipuncture / Unknown 10/31/2022 6:01 AM EDT 10/31/2022 6:24 AM EDT Denise Mcmillan MD LAB BLOOD OR DERABLES LABORATORY [address] [address] * (ABNORMAL) CBC (10/31/2022 6:01 AM EDT) WBC 6.06 4.00 - 10.80 K/uL 10/31/2022 6:31 AM EDT [facility] RBC 2.79 4.50 - 5.25 M/uL 10/31/2022 6:31 AM EDT [facility] HGB 9.0(L) 14.0 - 16.8 g/dL 10/31/2022 6:31 AM EDT [facility] HCT 27.9(L) 40.0 - 48.4 % 10/31/2022 6:31 AM EDT [facility] MCV 100.0 82.0 - 99.5 fL 10/31/2022 6:31 AM EDT [facility] MCH 32.3 27.0 - 34.0 pg 10/31/2022 6:31 AM EDT [facility] MCHC 32.3 32.0 - 36.0 g/dL 10/31/2022 6:31 AM EDT [facility] RDW 14.3 11.5 - 15.5 % 10/31/2022 6:31 AM EDT [facility] PLT 382 140 - 400 K/uL 10/31/2022 6:31 AM EDT [facility] MPV 8.8 6.6 - 11.1 fL 10/31/2022 6:31 AM EDT [facility] nRBCs 0 <=0 /100 WBCs 10/31/2022 6:31 AM EDT [facility] Blood Venous blood specimen / Unknown Venipuncture / Unknown 10/31/2022 6:01 AM EDT 10/31/2022 6:24 AM EDT Denise Mcmillan MD LAB BLOOD OR DERABLES LABORATORY [address] [id number] * VANCOMYCIN RANDOM (10/31/2022 6:01 AM EDT) Vancomycin Random 10.4 10.0 - 40.0 ug/mL 10/31/2022 6:44 AM EDT [facility] Blood Venous blood specimen / Unknown Venipuncture / Unknown 10/31/2022 6:01 AM EDT 10/31/2022 6:24 AM EDT Amber Thakkar DO LAB BLOOD ORDERABLES LABORATORY [address] [address] * (ABNORMAL) GLUCOSE METER, POINT OF CARE (10/30/2022 9:45 PM EDT) Glucose Meter 183(H) 70 - 120 mg/dL 10/31/2022 4:52 AM EDT [facility] Blood Whole blood specimen / Unknown 10/30/2022 9:45 PM EDT 10/31/2022 4:52 AM EDT Denise Mcmillan MD LAB POINT OF CARE TEST DOCKED DEVICE UNSOLICITED RESULTS Performing Organization Address [facility] Co de Phone Number [facility] [address] [place] [address] * (ABNORMAL) GLUCOSE METER, POINT OF CARE (10/30/2022 5:01 PM EDT) Glucose Meter 162(H) 70 - 120 mg/dL 10/30/2022 6:33 PM EDT [facility] Blood Whole blood specimen / Unknown 10/30/2022 5:01 PM EDT 10/30/2022 6:33 PM EDT Denise Mcmillan MD LAB POINT OF CARE TEST DOCKED DEVICE UNSOLICITED RESULTS Performing Organization Address [facility] de Phone Number [facility] [address] [place] [address] * (ABNORMAL) GLUCOSE METER, POINT OF CARE (10/30/2022 11:39 AM EDT) Glucose Meter 146(H) 70 - 120 mg/dL 10/30/2022 6:32 PM EDT [facility] Blood Whole blood specimen / Unknown 10/30/2022 11:39 AM EDT 10/30/2022 6:32 PM EDT Denise Mcmillan MD LAB POINT OF CARE TEST DOCKED DEVICE UNSOLICITED RESULTS Performing Organization Address [facility] de Phone Number [facility] [address] [place] [address] * (ABNORMAL) GLUCOSE METER, POINT OF CARE (10/30/2022 9:01 AM EDT) Glucose Meter 130(H) 70 - 120 mg/dL 10/30/2022 10:21 AM EDT [facility] Blood Whole blood specimen / Unknown 10/30/2022 9:01 AM EDT 10/30/2022 10:21 AM EDT Denise Mcmillan MD LAB POINT OF CARE TEST DOCKED DEVICE UNSOLICITED RESULTS Performing Organization Address [facility] Co de Phone Number [facility] [address] [place] [address] * (ABNORMAL) GLUCOSE METER, POINT OF CARE (10/30/2022 7:51 AM EDT) Glucose Meter 40(LL) 70 - 120 mg/dL 10/30/2022 11:31 AM EDT [facility] Device Comment Notified Provider 10/30/2022 11:31 AM EDT [facility] Blood Whole blood specimen / Unknown 10/30/2022 7:51 AM EDT 10/30/2022 11:31 AM EDT Denise Mcmillan MD LAB POINT OF CARE TEST DOCKED DEVICE UNSOLICITED RESULTS Performing Organization Address [facility] Phone Number [facility] [address] [place] [address] * (ABNORMAL) GLUCOSE METER, POINT OF CARE (10/30/2022 7:48 AM EDT) Glucose Meter 44(LL) 70 - 120 mg/dL 10/30/2022 10:21 AM EDT [facility] Blood Whole blood specimen / Unknown 10/30/2022 7:48 AM EDT 10/30/2022 10:21 AM EDT Denise Mcmillan MD LAB POINT OF CARE TEST DOCKED DEVICE UNSOLICITED RESULTS Performing Organization Address [facility] de Phone Number [facility] [address] [place] [address] * (ABNORMAL) GLUCOSE METER, POINT OF CARE (10/30/2022 7:46 AM EDT) Glucose Meter 56(L) 70 - 120 mg/dL 10/30/2022 10:21 AM EDT [facility] Blood Whole blood specimen / Unknown 10/30/2022 7:46 AM EDT 10/30/2022 10:21 AM EDT Denise Mcmillan MD LAB POINT OF CARE TEST DOCKED DEVICE UNSOLICITED RESULTS Performing Organization Address City/[facility] Co de Phone Number [facility] [address] [place] [address] * TYPE AND SCREEN (10/30/2022 4:09 AM EDT) ABO A 10/30/2022 4:54 AM EDT [facility] Rh Positive 10/30/2022 4:54 AM EDT [facility] Red Blood Cell Antibody Screen Negative 10/30/2022 4:54 AM EDT [facility] Specimen Expiration Date 11/02/2022 23:59 10/30/2022 4:54 AM EDT [facility] Blood Venous blood specimen / Unknown Venipuncture / Unknown 10/30/2022 4:09 AM EDT 10/30/2022 4:12 AM EDT Kishor YOUNG LAB BLOOD BANK TEST ORDERABLES Performing Organization Address [facility] Co de Phone Number [facility] [address] [place] [phone] * (ABNORMAL) BASIC METABOLIC PANEL (10/30/2022 4:09 AM EDT) BUN 18 6 - 20 mg/dL 10/30/2022 4:33 AM EDT [facility] Creatinine 1.1 0.6 - 1.2 mg/dL 10/30/2022 4:33 AM EDT [facility] Estimated Glomerular Filtration Rate 89 >=60 mL/min 10/30/2022 4:33 AM EDT [facility] Comment:eGFR is calculated b ased on the CKD-EPI 2020 equation Sodium 143 135 - 146 mmol/L 10/30/2022 4:33 AM EDT [facility] Potassium 3.5 3.5 - 5.1 mmol/L 10/30/2022 4:33 AM EDT [facility] Chloride 112(H) 98 - 107 mmol/L 10/30/2022 4:33 AM EDT [facility] CO2 28 22 - 32 mmol/L 10/30/2022 4:33 AM EDT [facility] Anion Gap 3(L) 7 - 15 mmol/L 10/30/2022 4:33 AM EDT [facility] Glucose 79 70 - 120 mg/dL 10/30/2022 4:33 AM EDT [facility] Calcium 7.5(L) 8.4 - 10.2 mg/dL 10/30/2022 4:33 AM EDT [facility] Blood Venous blood specimen / Unknown Venipuncture / Unknown 10/30/2022 4:09 AM EDT 10/30/2022 4:12 AM EDT Kishor [employer] SERVICE ATTENDANT LAB BLOOD ORDERABLES Performing Organization Address City/[facility]/ZIP Co de Phone Number [facility]ORY [facility] [address] [place], [place] [phone] * LACTATE (10/30/2022 4:09 AM EDT) Lactate 0.6 0.4 - 2.0 mmol/L 10/30/2022 4:29 AM EDT LABORATORY [facility] Blood Venous blood specimen / Unknown Venipuncture / Unknown 10/30/2022 4:09 AM EDT 10/30/2022 4:12 AM EDT Kishor [email or web address] SERVICE ATTENDANT LAB BLOOD ORDERABLES Performing Organization Address City/[facility]/ZIP Co de Phone Number [facility] [address] [place], [place] [phone] * (ABNORMAL) CBC (10/30/2022 4:09 AM EDT) WBC 7.68 4.00 - 10.80 K/uL 10/30/2022 4:14 AM EDT [facility] RBC 2.60 4.50 - 5.25 M/uL 10/30/2022 4:14 AM EDT [facility] HGB 8.4(L) 14.0 - 16.8 g/dL 10/30/2022 4:14 AM EDT [facility] HCT 26.0(L) 40.0 - 48.4 % 10/30/2022 4:14 AM EDT [facility] MCV 100.0 82.0 - 99.5 fL 10/30/2022 4:14 AM EDT [facility] MCH 32.3 27.0 - 34.0 pg 10/30/2022 4:14 AM EDT [facility] MCHC 32.3 32.0 - 36.0 g/dL 10/30/2022 4:14 AM EDT [facility] RDW 14.2 11.5 - 15.5 % 10/30/2022 4:14 AM EDT [facility] PLT 308 140 - 400 K/uL 10/30/2022 4:14 AM EDT [facility] MPV 8.2 6.6 - 11.1 fL 10/30/2022 4:14 AM EDT [facility] nRBCs 0 <=0 /100 WBCs 10/30/2022 4:14 AM EDT [facility] Blood Venous blood specimen / Unknown Venipuncture / Unknown 10/30/2022 4:09 AM EDT 10/30/2022 4:12 AM EDT Kishor YOUNG LAB BLOOD ORDERABLES [facility] [address] [place] [address] * CALCIUM, IONIZED (10/30/2022 4:09 AM EDT) [facility] Calcium, Ionized 1.19 1.13 - 1.32 mmol/L 10/30/2022 5:05 AM EDT [facility] Comment:This test was lani doshi and its performance characteristics dtermined by [employer]. It has not been cleared or approved by the [place] Food and Drug Administration Blood Venous blood specimen / Unknown Venipuncture / Unknown 10/30/2022 4:09 AM EDT 10/30/2022 4:12 AM EDT [employer] ETHERA DO LAB BLOOD ORDERABLES Performing Organization Address City/[facility]/ZIP Co de Phone Number LABORATORY [address] [address] * (ABNORMAL) GLUCOSE METER, POINT OF CARE (10/29/2022 9:14 PM EDT) Glucose Meter 188(H) 70 - 120 mg/dL 10/29/2022 9:17 PM EDT [facility] Blood Whole blood specimen / Unknown 10/29/2022 9:14 PM EDT 10/29/2022 9:17 PM EDT [facility] Cecileia DO LAB POINT OF CARE TE ST DOCKED DEVICE UNSOLICITED RESULTS Performing Organization Address [facility] de Phone Number [facility] [address] [place] [phone] * (ABNORMAL) GLUCOSE METER, POINT OF CARE (10/29/2022 4:10 PM EDT) Glucose Meter 131(H) 70 - 120 mg/dL 10/29/2022 7:45 PM EDT [facility] Blood Whole blood specimen / Unknown 10/29/2022 4:10 PM EDT 10/29/2022 7:45 PM EDT Ishidil [facility] DO LAB POINT OF CARE TE ST DOCKED DEVICE UNSOLICITED RESULTS Performing Organization Address [facility] Co de Phone Number [facility] [address] [place] [phone] * GLUCOSE METER, POINT OF CARE (10/29/2022 10:53 AM EDT) Glucose Meter 111 70 - 120 mg/dL 10/29/2022 7:43 PM EDT [facility] Blood Whole blood specimen / Unknown 10/29/2022 10:53 AM EDT 10/29/2022 7:43 PM EDT [employer] ETHERA DO LAB POINT OF CARE TE ST DOCKED DEVICE UNSOLICITED RESULTS Performing Organization Address City/[facility]/ZIP Co de Phone Number [facility] [address] [place] [address] * (ABNORMAL) GLUCOSE METER, POINT OF CARE (10/29/2022 7:42 AM EDT) Glucose Meter 218(H) 70 - 120 mg/dL 10/29/2022 7:43 PM EDT [facility] Blood Whole blood specimen / Unknown 10/29/2022 7:42 AM EDT 10/29/2022 7:43 PM EDT [employer] DO LAB POINT OF CARE TE ST DOCKED DEVICE UNSOLICITED RESULTS Performing Organization Address [facility] Co de Phone Number [facility] [address] [place] [phone] * (ABNORMAL) BASIC METABOLIC PANEL (10/29/2022 7:25 AM EDT) BUN 16 6 - 20 mg/dL 10/29/2022 9:03 AM EDT [facility] Creatinine 1.1 0.6 - 1.2 mg/dL 10/29/2022 9:03 AM EDT [facility] Estimated Glomerular Filtration Rate >90 >=60 mL/min 10/29/2022 9:03 AM EDT [facility] Comment:eGFR is calculated b ased on the CKD-EPI 2020 equation Sodium 135 135 - 146 mmol/L 10/29/2022 9:03 AM EDT [facility] Potassium 4.1 3.5 - 5.1 mmol/L 10/29/2022 9:03 AM EDT [facility] Chloride 104 98 - 107 mmol/L 10/29/2022 9:03 AM EDT [facility] CO2 23 22 - 32 mmol/L 10/29/2022 9:03 AM EDT [facility] Anion Gap 8 7 - 15 mmol/L 10/29/2022 9:03 AM EDT [facility] Glucose 246(H) 70 - 120 mg/dL 10/29/2022 9:03 AM EDT [facility] Calcium 8.2(L) 8.4 - 10.2 mg/dL 10/29/2022 9:03 AM EDT [facility] Blood Venous blood specimen / Unknown Venipuncture / Unknown 10/29/2022 7:25 AM EDT 10/29/2022 7:32 AM EDT Amber Thakkar DO LAB BLOOD ORDERABLES LABORATORY [address] [address] * (ABNORMAL) CBC (10/29/2022 7:25 AM EDT) WBC 8.83 4.00 - 10.80 K/uL 10/29/2022 8:47 AM EDT [facility] RBC 3.04 4.50 - 5.25 M/uL 10/29/2022 8:47 AM EDT [facility] HGB 9.6(L) 14.0 - 16.8 g/dL 10/29/2022 8:47 AM EDT [facility] HCT 29.9(L) 40.0 - 48.4 % 10/29/2022 8:47 AM EDT [facility] MCV 98.4 82.0 - 99.5 fL 10/29/2022 8:47 AM EDT [facility] MCH 31.6 27.0 - 34.0 pg 10/29/2022 8:47 AM EDT [facility] MCHC 32.1 32.0 - 36.0 g/dL 10/29/2022 8:47 AM EDT [facility] RDW 13.9 11.5 - 15.5 % 10/29/2022 8:47 AM EDT [facility] PLT 385 140 - 400 K/uL 10/29/2022 8:47 AM EDT [facility] MPV 9.0 6.6 - 11.1 fL 10/29/2022 8:47 AM EDT [facility] nRBCs 0 <=0 /100 WBCs 10/29/2022 8:47 AM EDT [facility] Blood Venous blood specimen / Unknown Venipuncture / Unknown 10/29/2022 7:25 AM EDT 10/29/2022 7:32 AM EDT Amber Thakkar DO LAB BLOOD ORDERABLES Performing Organization Address [facility] de Phone Number LABORATORY [address] [address] * CALCIUM, IONIZED (10/29/2022 7:25 AM EDT) Calcium, Ionized 1.14 1.13 - 1.32 mmol/L 10/29/2022 8:12 AM EDT [facility] Comment:This test was develo ped and its performance characteristics dtermined by [employer]. It has not been cleared or approved by the [place] Food and Drug Administration Blood Venous blood specimen / Unknown Venipuncture / Unknown 10/29/2022 7:25 AM EDT 10/29/2022 7:32 AM EDT Amber Thakkar DO LAB BLOOD ORDERABLES Performing Organization Address [facility] Phone Number LABORATORY [address] [address] * VANCOMYCIN RANDOM (10/29/2022 7:25 AM EDT) [facility] Vancomycin Random 25.6 10.0 - 40.0 ug/mL 10/29/2022 9:03 AM EDT [facility] Blood Venous blood specimen / Unknown Venipuncture / Unknown 10/29/2022 7:25 AM EDT 10/29/2022 7:32 AM EDT Gail Dean MD LAB BLOOD ORDERABL ES Performing Organization Address [facility] de Phone Number LABORATORY [address] [address] * (ABNORMAL) GLUCOSE METER, POINT OF CARE (10/28/2022 10:11 PM EDT) Glucose Meter 297(H) 70 - 120 mg/dL 10/29/2022 6:34 AM EDT [facility] Blood Whole blood specimen / Unknown 10/28/2022 10:11 PM EDT 10/29/2022 6:34 AM EDT Amber ETHERA DO LAB POINT OF CARE TE ST DOCKED DEVICE UNSOLICITED RESULTS Performing Organization Address [facility] de Phone Number [facility] [address] [place] [phone] * EXTRA URINE (10/28/2022 4:58 PM EDT) Urine Urine specimen / Unknown 10/28/2022 4:58 PM EDT 10/28/2022 4:59 PM EDT Amber ETHERA DO LAB URINE ORDERABLES Performing Organization Address [facility] de Phone Number LABORATORY [address] [address] * EXTRA URINE (10/28/2022 4:55 PM EDT) Urine Urine specimen / Unknown 10/28/2022 4:55 PM EDT 10/28/2022 4:55 PM EDT [employer] LAB URINE ORDERABLES Performing Organization Address [facility] Phone Number LABORATORY [address] [address] * (ABNORMAL) CULTURE, URINE, QUANTITATIVE (10/28/2022 4:47 PM EDT) Pathologist [facility] Culture Growth >100,000 colonies/mL Staphylococcus aureus MRSA, This patient may require isolation.(A) MICROBROTH DILUTIONS 10/31/2022 3:32 PM EDT LABORATORY [facility] Urine Urine specimen obtained by clean catch procedure / Unknown Non-blood Collection / Unknown 10/28/2022 4:47 PM EDT 10/28/2022 4:51 PM EDT Organism Antibiotic Method Susceptibility Staphylococcus aureus MRSA, This patient may require isolation. Nitrofurantoin MICROBROTH DILUTIONS <=16: Susceptible Staphylococcus aureus MRSA, This patient may require isolation. Oxacillin MICROBROTH DILUTIONS >=4: Resistant Comment:Oxacillin/Me thicillin resistant Staphylococci are considered clinically resistant to all Beta-lactam (Penicillin and Cephalosporin) antibiotics. Quinolone antibiotics should also not be used for Staphylococci that are Oxacillin resistant. Staphylococcus aureus MRSA, This patient may require isolation. Penicillin G MICROBROTH DILUTIONS >=0.5: Resistant Staphylococcus aureus MRSA, This patient may require isolation. Tetracycline MICROBROTH DILUTIONS >=16: Resistant Staphylococcus aureus MRSA, This patient may require isolation. Trimeth/Sulfamethoxazol e MICROBROTH DILUTIONS <=10: Susceptible Staphylococcus aureus MRSA, This patient may require isolation. Vancomycin MICROBROTH DILUTIONS <=0.5: Susceptible Gail Dean MD LAB MICRO - GENERA L ORDERABLES LABORATORY [address] [phone] * (ABNORMAL) GLUCOSE METER, POINT OF CARE (10/28/2022 4:37 PM EDT) Glucose Meter 142(H) 70 - 120 mg/dL 10/28/2022 11:52 PM EDT [facility] Blood Whole blood specimen / Unknown 10/28/2022 4:37 PM EDT 10/28/2022 11:52 PM EDT [employer] LAB POINT OF CARE TE ST DOCKED DEVICE UNSOLICITED RESULTS Performing Organization Address [facility] Co de Phone Number [facility] [address] [place] [address] * (ABNORMAL) GLUCOSE METER, POINT OF CARE (10/28/2022 11:02 AM EDT) Glucose Meter 180(H) 70 - 120 mg/dL 10/28/2022 12:05 PM EDT [facility] Blood Whole blood specimen / Unknown 10/28/2022 11:02 AM EDT 10/28/2022 12:05 PM EDT [employer] ETHERA DO LAB POINT OF CARE TE ST DOCKED DEVICE UNSOLICITED RESULTS Performing Organization Address City/[facility] Co de Phone Number [facility] [address] [place] [address] * (ABNORMAL) GLUCOSE METER, POINT OF CARE (10/28/2022 9:15 AM EDT) Glucose Meter 226(H) 70 - 120 mg/dL 10/28/2022 9:17 AM EDT [facility] Blood Whole blood specimen / Unknown 10/28/2022 9:15 AM EDT 10/28/2022 9:17 AM EDT [employer] DO LAB POINT OF CARE TE ST DOCKED DEVICE UNSOLICITED RESULTS Performing Organization Address [facility] de Phone Number [facility] [address] [place] [address] * (ABNORMAL) GLUCOSE METER, POINT OF CARE (10/28/2022 8:36 AM EDT) Glucose Meter 60(L) 70 - 120 mg/dL 10/28/2022 12:05 PM EDT [facility] Blood Whole blood specimen / Unknown 10/28/2022 8:36 AM EDT 10/28/2022 12:05 PM EDT [facility] LAB POINT OF CARE TE ST DOCKED DEVICE UNSOLICITED RESULTS Performing Organization Address [facility] Co de Phone Number [facility] [address] [place] [phone] * MAGNESIUM (10/28/2022 7:59 AM EDT) Magnesium 1.8 1.5 - 2.6 mg/dL 10/28/2022 8:39 AM EDT [facility] Blood Venous blood specimen / Unknown Venipuncture / Unknown 10/28/2022 7:59 AM EDT 10/28/2022 8:17 AM EDT Gail Dean MD LAB BLOOD ORDERABL ES Performing Organization Address City/[facility] Co de Phone Number LABORATORY [address] [phone] * (ABNORMAL) CBC (10/28/2022 7:59 AM EDT) WBC 9.39 4.00 - 10.80 K/uL 10/28/2022 8:21 AM EDT [facility] RBC 2.88 4.50 - 5.25 M/uL 10/28/2022 8:21 AM EDT [facility] HGB 9.4(L) 14.0 - 16.8 g/dL 10/28/2022 8:21 AM EDT [facility] HCT 27.4(L) 40.0 - 48.4 % 10/28/2022 8:21 AM EDT [facility] MCV 95.1 82.0 - 99.5 fL 10/28/2022 8:21 AM EDT [facility] MCH 32.6 27.0 - 34.0 pg 10/28/2022 8:21 AM EDT [facility] MCHC 34.3 32.0 - 36.0 g/dL 10/28/2022 8:21 AM EDT [facility] RDW 13.7 11.5 - 15.5 % 10/28/2022 8:21 AM EDT [facility] PLT 368 140 - 400 K/uL 10/28/2022 8:21 AM EDT [facility] MPV 8.6 6.6 - 11.1 fL 10/28/2022 8:21 AM EDT [facility] nRBCs 0 <=0 /100 WBCs 10/28/2022 8:21 AM EDT [facility] [facility] Blood Venous blood specimen / Unknown Venipuncture / Unknown 10/28/2022 7:59 AM EDT 10/28/2022 8:17 AM EDT Gail Dean MD LAB BLOOD ORDERABL ES LABORATORY [address] [id number] * (ABNORMAL) BASIC METABOLIC PANEL (10/28/2022 7:59 AM EDT) BUN 12 6 - 20 mg/dL 10/28/2022 8:39 AM EDT LAB[facility]ATORY [facility] Creatinine 0.8 0.6 - 1.2 mg/dL 10/28/2022 8:39 AM EDT LAB[facility]ATORY [facility] Estimated Glomerular Filtration Rate >90 >=60 mL/min 10/28/2022 8:39 AM EDT [facility] Comment:eGFR is calculated b ased on the CKD-EPI 2020 equation Sodium 140 135 - 146 mmol/L 10/28/2022 8:39 AM EDT LAB[facility]ATORY [facility] Potassium 3.3(L) 3.5 - 5.1 mmol/L 10/28/2022 8:39 AM EDT LAB[facility]ATORY [facility] Chloride 106 98 - 107 mmol/L 10/28/2022 8:39 AM EDT LAB[facility]ATORY [facility] CO2 30 22 - 32 mmol/L 10/28/2022 8:39 AM EDT LAB[facility]ATORY [facility] Anion Gap 4(L) 7 - 15 mmol/L 10/28/2022 8:39 AM EDT LAB[facility]ATORY [facility] Glucose 68(L) 70 - 120 mg/dL 10/28/2022 8:39 AM EDT LAB[facility]ATORY [facility] Calcium 7.9(L) 8.4 - 10.2 mg/dL 10/28/2022 8:39 AM EDT LAB[facility]ATORY [facility] Blood Venous blood specimen / Unknown Venipuncture / Unknown 10/28/2022 7:59 AM EDT 10/28/2022 8:17 AM EDT Gail Dean MD LAB BLOOD ORDERABL ES LABORATORY [address] [address] * (ABNORMAL) GLUCOSE METER, POINT OF CARE (10/28/2022 7:58 AM EDT) [facility] Glucose Meter 66(L) 70 - 120 mg/dL 10/28/2022 12:05 PM EDT [facility] Blood Whole blood specimen / Unknown 10/28/2022 7:58 AM EDT 10/28/2022 12:05 PM EDT Ishmail Saccoh DO LAB POINT OF CARE TE ST DOCKED DEVICE UNSOLICITED RESULTS Performing Organization Address [facility]/ZIP Co de Phone Number [facility] [address] [place] [address] * (ABNORMAL) HEMOGLOBIN A1C (10/28/2022 7:58 AM EDT) Hemoglobin A1C 12.8(H) 4.0 - 5.6 % 10/28/2022 1:59 PM EDT LABORATORY [facility] Comment:The use of HbA1c to monitor glycemic status is based on normal hemoglobin and HbA composition. This test should not be used in patients with abnormal hemoglobin that affects the half life of the red blood cell or the in vivo glycation rates. Estimated Average Glucose 321(H) <126 mg/dL 10/28/2022 1:59 PM EDT LABORATORY [facility] Blood Venous blood specimen / Unknown Venipuncture / Unknown 10/28/2022 7:58 AM EDT 10/28/2022 8:17 AM EDT Gail Dean MD LAB BLOOD ORDERABL ES Performing Organization Address [facility]/ZIP Co de Phone Number LABORATORY [facility] [address] [place] [address] * GLUCOSE METER, POINT OF CARE (10/28/2022 6:11 AM EDT) Glucose Meter 94 70 - 120 mg/dL 10/28/2022 7:55 AM EDT [facility] Blood Whole blood specimen / Unknown 10/28/2022 6:11 AM EDT 10/28/2022 7:55 AM EDT Amber Thakkar DO LAB POINT OF CARE TE ST DOCKED DEVICE UNSOLICITED RESULTS Performing Organization Address [facility] Co de Phone Number [facility] [address] [place] [address] * (ABNORMAL) GLUCOSE METER, POINT OF CARE (10/28/2022 4:04 AM EDT) Glucose Meter 130(H) 70 - 120 mg/dL 10/28/2022 12:05 PM EDT [facility] Blood Whole blood specimen / Unknown 10/28/2022 4:04 AM EDT 10/28/2022 12:05 PM EDT Lorenzosuma Bijan DO LAB POINT OF CARE TE ST DOCKED DEVICE UNSOLICITED RESULTS Performing Organization Address City/[facility]/ZIP Co de Phone Number [facility] [address] [place] [address] * (ABNORMAL) MICROSCOPIC EXAM, URINE (10/28/2022 3:53 AM EDT) RBC, Urine 50+(A) 0 - 2 /HPF 10/28/2022 4:27 AM EDT LABORATORY [facility] WBC, Urine 50+(A) 0 - 2 /HPF 10/28/2022 4:27 AM EDT LABORATORY GL Bacteria, Urine 101-150(A) 0 - 25 /HPF 10/28/2022 4:27 AM EDT LABORATORY [facility] Urine Urine specimen obtained by clean catch procedure / Unknown Non-blood Collection / Unknown 10/28/2022 3:53 AM EDT 10/28/2022 3:56 AM EDT Dot Koenig DO LAB URINE ORDE RABLES LABORATORY [address] [id number] * (ABNORMAL) URINALYSIS, REFLEX TO MICROSCOPIC (10/28/2022 3:53 AM EDT) Color, Urine Yellow Light Yellow, Yellow, Dark Yellow 10/28/2022 4:02 AM EDT LABORATORY GL Clarity, Urine Clear Clear 10/28/2022 4:02 AM EDT LABORATORY GL Glucose, Urine 100(A) Negative mg/dL 10/28/2022 4:02 AM EDT LABORATORY GL Bilirubin, Urine Negative Negative 10/28/2022 4:02 AM EDT LABORATORY GL Ketone, Urine Negative Negative mg/dL 10/28/2022 4:02 AM EDT LABORATORY GL Specific [place], Urine 1.010 1.003 - 1.030 10/28/2022 4:02 AM EDT LAB[facility]ATORY [facility] Blood, Urine Large(A) Negative 10/28/2022 4:02 AM EDT LAB[facility]ATORY [facility] pH, Urine 7.0 5.0 - 7.5 Units 10/28/2022 4:02 AM EDT LAB[facility]ATORY [facility] Protein, Urine >=300(A) Negative mg/dL 10/28/2022 4:02 AM EDT LAB[facility]ATORY [facility] Urobilinogen, Urine 0.2 0.2, 1.0 mg/dL 10/28/2022 4:02 AM EDT LAB[facility]ATORY [facility] Nitrite, Urine Positive(A) Negative 10/28/2022 4:02 AM EDT LAB[facility]ORY [facility] Esterase, Urine Large(A) Negative 10/28/2022 4:02 AM EDT LAB[facility]ATORY [facility] Urine Urine specimen obtained by clean catch procedure / Unknown Non-blood Collection / Unknown 10/28/2022 3:53 AM EDT 10/28/2022 3:56 AM EDT Dot Koenig DO LAB URINE ORDE RABLES LABORATORY [address] [address] * (ABNORMAL) GLUCOSE METER, POINT OF CARE (10/28/2022 3:31 AM EDT) Glucose Meter 66(L) 70 - 120 mg/dL 10/28/2022 12:05 PM EDT [facility] Blood Whole blood specimen / Unknown 10/28/2022 3:31 AM EDT 10/28/2022 12:05 PM EDT Amber Thakkar DO LAB POINT OF CARE TE ST DOCKED DEVICE UNSOLICITED RESULTS Performing Organization Address [facility]/ZIP Co de Phone Number [facility] [address] [place] [id number] * GLUCOSE METER, POINT OF CARE (10/28/2022 12:57 AM EDT) Glucose Meter 90 70 - 120 mg/dL 10/28/2022 7:55 AM EDT [facility] Blood Whole blood specimen / Unknown 10/28/2022 12:57 AM EDT 10/28/2022 7:55 AM EDT Ishmail Saccoh DO LAB POINT OF CARE TE ST DOCKED DEVICE UNSOLICITED RESULTS Performing Organization Address [facility] Co de Phone Number [facility] [address] [place] [address] * GLUCOSE METER, POINT OF CARE (10/28/2022 12:02 AM EDT) Glucose Meter 72 70 - 120 mg/dL 10/28/2022 7:54 AM EDT [facility] Blood Whole blood specimen / Unknown 10/28/2022 12:02 AM EDT 10/28/2022 7:54 AM EDT IshIncentive Logicil ETHERA DO LAB POINT OF CARE TE ST DOCKED DEVICE UNSOLICITED RESULTS Performing Organization Address [facility] de Phone Number [facility] [address] [place] [address] * XR HAND 2 VIEWS (10/27/2022 10:39 PM EDT) Anatomical Region Laterality Modality Upper Extremity, Hand Digital Ra diography 10/27/2022 10:2 3 PM EDT Impressions 10/27/2022 10:46 PM EDT IMPRESSION: Persistent subluxation at the 5th proximal interphalangeal joint anterior displacement of the distal fracture fragment. Additional fracture lines are unchanged. THIS DOCUMENT HAS BEEN ELECTRONICALLY SIGNED BY MARTÍN NOLAND MD Narrative 10/27/2022 10:46 PM EDT PROCEDURE INFORMATION: Exam: XR Right Hand Exam date and time: 10/27/2022 10:23 PM Age: 37 years old Clinical indication: Other: Post-splint. Best images due to splint and PT unable to straighten fingers. TECHNIQUE: Imaging protocol: Radiologic exam of the right hand. Views: 1 or 2 views. COMPARISON: OT XR HAND 3 OR MORE VIEWS 06/29/2022 3:42 PM FINDINGS: Bones/joints: There is casting material in place which obscures fine bony and soft-tissue detail. Persistent subluxation at the 5th proximal interphalangeal joint anterior displacement of the distal fracture fragment. Additional fracture lines are unchanged. Soft tissues: Normal. Procedure Note Martín Noland MD - 10/27/2022 PROCEDURE INFORMATION: Exam: XR Right Hand Exam date and time: 10/27/2022 10:23 PM Age: 37 years old Clinical indication: Other: Post-splint. Best images due to splint and PT unable to straighten fingers. TECHNIQUE: Imaging protocol: Radiologic exam of the right hand. Views: 1 or 2 views. COMPARISON: OT XR HAND 3 OR MORE VIEWS 06/29/2022 3:42 PM FINDINGS: Bones/joints: There is casting material in place which obscures fine bonyand soft-tissue detail. Persistent subluxation at the 5th proximalinterphalangeal joint anterior displacement of the distal fracture fragment. Additional fracture lines are unchanged. Soft tissues: Normal. IMPRESSION IMPRESSION: Persistent subluxation at the 5th proximal interphalangeal joint anterior displacement of the distal fracture fragment. Additional fracture linesare unchanged. THIS DOCUMENT HAS BEEN ELECTRONICALLY SIGNED BY MARTÍN NOLAND MD Micha Marsh MD RADIOLOGY ([facility]) * (ABNORMAL) MRSA SCREEN, PCR (10/27/2022 10:09 PM EDT) [facility] MRSA PCR Result Positive( A) Negative 10/28/2022 2:36 AM EDT LABORATORY [facility] Comment:Methicillin resistan t Staphylococcus aureus detected by PCR (amplified probe). MRSA-This patient may require isolation. Please refer to Infection Control isolation policy. Upper Respiratory (Nares, Bilateral) Non-blood Collection / Unknown 10/27/2022 10:09 PM EDT 10/27/2022 10:14 PM EDT Gail Dean MD LAB MICRO - GENERA L ORDERABLES LABORATORY [facility] [address] [place] [address] * GLUCOSE METER, POINT OF CARE (10/27/2022 9:07 PM EDT) Glucose Meter 70 70 - 120 mg/dL 10/28/2022 12:04 PM EDT [facility] Blood Whole blood specimen / Unknown 10/27/2022 9:07 PM EDT 10/28/2022 12:04 PM EDT Ishmail Saccoh DO LAB POINT OF CARE TE ST DOCKED DEVICE UNSOLICITED RESULTS [facility] [address] [place] [address] * XR FINGERS 2 OR MORE VIEWS (10/27/2022 6:12 PM EDT) Anatomical Region Laterality Modality Upper Extremity Digital Radiogra phy 10/27/2022 6:05 PM EDT Impressions 10/27/2022 6:19 PM EDT IMPRESSION: Subluxed 5th proximal interphalangeal joint. Underlying osseous erosion may reflect infection/osteomyelitis. THIS DOCUMENT HAS BEEN ELECTRONICALLY SIGNED BY MARTÍN NOLAND MD Narrative 10/27/2022 6:19 PM EDT PROCEDURE INFORMATION: Exam: XR Right Finger(s) Exam date and time: 10/27/2022 6:05 PM Age: 37 years old Clinical indication: Other: Infection in finger TECHNIQUE: Imaging protocol: Radiologic exam of the right fingers. Views: Minimum 2 views. COMPARISON: OT XR HAND 3 OR MORE VIEWS 06/29/2022 3:42 PM FINDINGS: Bones/joints: There is subluxation at the 5th proximal interphalangeal joint with associated soft tissue swelling. There is some questionable erosion at the base of the 5th middle phalanx which may reflect underlying infection. Soft tissues: See "Bones/joints" finding. Procedure Note Martín Noland MD - 10/27/2022 PROCEDURE INFORMATION: Exam: XR Right Finger(s) Exam date and time: 10/27/2022 6:05 PM Age: 37 years old Clinical indication: Other: Infection in finger TECHNIQUE: Imaging protocol: Radiologic exam of the right fingers. Views: Minimum 2 views. COMPARISON: OT XR HAND 3 OR MORE VIEWS 06/29/2022 3:42 PM FINDINGS: Bones/joints: There is subluxation at the 5th proximal interphalangealjoint with associated soft tissue swelling. There is some questionable erosionat the base of the 5th middle phalanx which may reflect underlying infection. Soft tissues: See "Bones/joints" finding. IMPRESSION IMPRESSION: Subluxed 5th proximal interphalangeal joint. Underlying osseous erosionmay reflect infection/osteomyelitis. THIS DOCUMENT HAS BEEN ELECTRONICALLY SIGNED BY MARTÍN NOLAND MD Dot Koenig RADIOLOGY ([facility]) * XR CHEST 1 VIEW (10/27/2022 6:12 PM EDT) Anatomical Region Laterality Modality Chest Digital Radiogra phy 10/27/2022 6:05 PM EDT Impressions 10/27/2022 6:22 PM EDT IMPRESSION: No acute findings. THIS DOCUMENT HAS BEEN ELECTRONICALLY SIGNED BY MARTÍN NOLAND MD Narrative 10/27/2022 6:22 PM EDT PROCEDURE INFORMATION: Exam: XR Chest Exam date and time: 10/27/2022 6:05 PM Age: 37 years old Clinical indication: Other: Sepsis TECHNIQUE: Imaging protocol: Radiologic exam of the chest. Views: 1 view. COMPARISON: DX (CXR AP X-RENTERIA GRID, CHEST, CXR AP GRID Crosswise) 12/29/2021 6:42 AM FINDINGS: Lungs: There is some parenchymal scarring in the left mid lung. There is no dense parenchymal consolidation, pleural effusion, or pneumothorax. Pleural spaces: See "Lungs" finding. Heart/Mediastinum: Unremarkable. No cardiomegaly. Bones/joints: Unremarkable. Procedure Note Martín Noland MD - 10/27/2022 PROCEDURE INFORMATION: Exam: XR Chest Exam date and time: 10/27/2022 6:05 PM Age: 37 years old Clinical indication: Other: Sepsis TECHNIQUE: Imaging protocol: Radiologic exam of the chest. Views: 1 view. COMPARISON: DX (CXR AP X-RENTERIA GRID, CHEST, CXR AP GRID Crosswise) 12/29/2021 6:42 AM FINDINGS: Lungs: There is some parenchymal scarring in the left mid lung. There isno dense parenchymal consolidation, pleural effusion, or pneumothorax. Pleural spaces: See "Lungs" finding. Heart/Mediastinum: Unremarkable. No cardiomegaly. Bones/joints: Unremarkable. IMPRESSION IMPRESSION: No acute findings. THIS DOCUMENT HAS BEEN ELECTRONICALLY SIGNED BY MARTÍN NOLAND MD Dot Koenig DO RADIOLOGY ([facility]) * (ABNORMAL) CULTURE, WOUND, DEEP, AEROBIC AND ANAEROBIC (10/27/2022 5:55 PM EDT) Culture Growth Moderate Staphylococcus aureus MRSA, This patient may require isolation.(A) MICROBROTH DILUTIONS 11/01/2022 1:49 PM EDT LAB[facility]ATORY [facility] Culture Growth Moderate Bacteroides fragilis group(A) MICROBROTH DILUTIONS 11/01/2022 1:49 PM EDT LAB[facility]ATORY [facility] Culture Growth Moderate Beta Streptococcus group A(A) MICROBROTH DILUTIONS 11/01/2022 1:49 PM EDT [facility] Stain Description No polymorphonuclear leukocytes seen 11/01/2022 1:49 PM EDT LAB[facility] Stain Description Many Gram positive cocci 11/01/2022 1:49 PM EDT LAB[facility] Stain Description Many Gram positive bacilli 11/01/2022 1:49 PM EDT LAB[facility] Deep Wound (Finger, Right) Non-blood Collection / Unknown 10/27/2022 5:55 PM EDT 10/27/2022 5:58 PM EDT Narrative LABORATORY [facility] - 11/01/2022 1:49 PM EDT Multiple other species of aerobic and/or anaerobic bacteria. No further workup routinely performed Organism Antibiotic Method Susceptibility Staphylococcus aureus MRSA, This patient may require isolation. Clindamycin MICROBROTH DILUTIONS <=0.25: Susceptible Staphylococcus aureus MRSA, This patient may require isolation. Erythromycin MICROBROTH DILUTIONS >=8: Resistant Staphylococcus aureus MRSA, This patient may require isolation. Oxacillin MICROBROTH DILUTIONS >=4: Resistant Comment:Oxacillin/Me thicillin resistant Staphylococci are considered clinically resistant to all Beta-lactam (Penicillin and Cephalosporin) antibiotics. Quinolone antibiotics should also not be used for Staphylococci that are Oxacillin resistant. Staphylococcus aureus MRSA, This patient may require isolation. Penicillin G MICROBROTH DILUTIONS >=0.5: Resistant Staphylococcus aureus MRSA, This patient may require isolation. Tetracycline MICROBROTH DILUTIONS >=16: Resistant Staphylococcus aureus MRSA, This patient may require isolation. Trimeth/Sulfamethoxazo le MICROBROTH DILUTIONS <=10: Susceptible Staphylococcus aureus MRSA, This patient may require isolation. Vancomycin MICROBROTH DILUTIONS <=0.5: Susceptible Dot Koenig DO LAB MICRO - GE NERAL ORDERABLES LABORATORY [facility] [address] [place] [address] * (ABNORMAL) T4, FREE (10/27/2022 5:47 PM EDT) T4, Free 0.4(L) 0.9 - 1.7 ng/dL 10/28/2022 8:39 AM EDT LABORATORY [facility] Blood Venous blood specimen / Unknown Venipuncture / Unknown 10/27/2022 5:47 PM EDT 10/27/2022 5:52 PM EDT [facility] Performing Organization Address [facility] Co de Phone Number LABORATORY [address] [phone] * (ABNORMAL) TSH WITH FREE T4 IF INDICATED (10/27/2022 5:47 PM EDT) Pathologist [facility] TSH >100.00(H) 0.27 - 4.20 uIU/mL 10/28/2022 7:51 AM EDT LABORATORY [facility] Blood Venous blood specimen / Unknown Venipuncture / Unknown 10/27/2022 5:47 PM EDT 10/27/2022 5:52 PM EDT [facility] DO LAB BLOOD ORDERABLES Performing Organization Address City/[facility] Co de Phone Number LABORATORY [address] [phone] * EXTRA HOANG TOP (10/27/2022 5:47 PM EDT) Blood Venous blood specimen / Unknown 10/27/2022 5:47 PM EDT 10/27/2022 5:54 PM EDT Dot Koenig DO LAB BLOOD ORDE EDDIELES [facility] Organization Address City/State/ZIP Co de Phone Number LABORATORY [facility] [address] [place] [address] * (ABNORMAL) DIFFERENTIAL, AUTOMATED (10/27/2022 5:47 PM EDT) WBC 12.22(H) 4.00 - 10.80 K/uL 10/27/2022 5:54 PM EDT LABORATORY GL Neutrophils % 62.3 40.0 - 75.0 % 10/27/2022 5:54 PM EDT LABORATORY [facility] Lymphocytes % 31.3 18.0 - 42.0 % 10/27/2022 5:54 PM EDT LAB[facility]ATORY [facility] Monocytes % 5.0 1.0 - 11.0 % 10/27/2022 5:54 PM EDT LABORATORY GL Eosinophils % 0.6 0.0 - 6.0 % 10/27/2022 5:54 PM EDT LABORATORY GL Basophils % 0.5 0.0 - 2.0 % 10/27/2022 5:54 PM EDT LABORATORY GL Immature Granulocytes % 0.3 0.0 - 2.0 % 10/27/2022 5:54 PM EDT LABORATORY GL Absolute Neutrophils 7.61 1.80 - 7.70 K/uL 10/27/2022 5:54 PM EDT LABORATORY GL Absolute Lymphocytes 3.83 1.00 - 4.80 K/ul 10/27/2022 5:54 PM EDT LABORATORY GL Absolute Monocytes 0.61 0.00 - 1.10 K/uL 10/27/2022 5:54 PM EDT LABORATORY GL Absolute Eosinophils 0.07 0.00 - 0.70 K/uL 10/27/2022 5:54 PM EDT LABORATORY GL Absolute Basophils 0.06 0.00 - 0.20 K/uL 10/27/2022 5:54 PM EDT LABORATORY GL Absolute Immature Granulocytes 0.04 0.00 - 0.20 K/uL 10/27/2022 5:54 PM EDT LABORATORY [facility] Blood Venous blood specimen / Unknown Venipuncture / Unknown 10/27/2022 5:47 PM EDT 10/27/2022 5:52 PM EDT Dot Koenig LAB BLOOD ORDHerbie CHOWDHURY Performing Organization Address City/[facility]/ZIP Co de Phone Number LABORATORY [address] [address] * (ABNORMAL) CBC (10/27/2022 5:47 PM EDT) WBC 12.22(H) 4.00 - 10.80 K/uL 10/27/2022 5:54 PM EDT LABORATORY [facility] RBC 3.33 4.50 - 5.25 M/uL 10/27/2022 5:54 PM EDT LABORATORY [facility] HGB 10.8(L) 14.0 - 16.8 g/dL 10/27/2022 5:54 PM EDT LABORATORY [facility] HCT 31.6(L) 40.0 - 48.4 % 10/27/2022 5:54 PM EDT LABORATORY [facility] MCV 94.9 82.0 - 99.5 fL 10/27/2022 5:54 PM EDT LABORATORY [facility] MCH 32.4 27.0 - 34.0 pg 10/27/2022 5:54 PM EDT LABORATORY [facility] MCHC 34.2 32.0 - 36.0 g/dL 10/27/2022 5:54 PM EDT LABORATORY [facility] RDW 13.5 11.5 - 15.5 % 10/27/2022 5:54 PM EDT LABORATORY [facility] PLT 428(H) 140 - 400 K/uL 10/27/2022 5:54 PM EDT LABORATORY [facility] MPV 8.4 6.6 - 11.1 fL 10/27/2022 5:54 PM EDT LABORATORY [facility] nRBCs 0 <=0 /100 WBCs 10/27/2022 5:54 PM EDT LABORATORY [facility] Blood Venous blood specimen / Unknown Venipuncture / Unknown 10/27/2022 5:47 PM EDT 10/27/2022 5:52 PM EDT Dot Koenig LAB BLOOD JOSE A CHOWDHURY LABORATORY [address] [address] * (ABNORMAL) CRP (INFLAMMATORY MARKER) (10/27/2022 5:47 PM EDT) [facility] CRP (Inflammatory Marker) 14(H) <=5 mg/L 10/27/2022 6:09 PM EDT LABORATORY [facility] Blood Venous blood specimen / Unknown Venipuncture / Unknown 10/27/2022 5:47 PM EDT 10/27/2022 5:52 PM EDT Dot Koenig DO LAB BLOOD ORDHerbie CHOWDHURY LABORATORY [facility] [address] [facility] SARITHA Messer [id number] * (ABNORMAL) BLOOD GAS, VENOUS (10/27/2022 5:47 PM EDT) [facility] Temperature 37.0 C 10/27/2022 5:54 PM EDT LABORATORY [facility] pH, Venous 7.320 7.320 - 7.430 units 10/27/2022 5:54 PM EDT LABORATORY [facility] pCO2, Venous 63.7(H) 40.0 - 60.0 mmHg 10/27/2022 5:54 PM EDT LABORATORY [facility] pO2, Venous 22.6(L) 25.0 - 50.0 mmHg 10/27/2022 5:54 PM EDT LABORATORY [facility] Base Excess, Venous 4.9(H) -2.0 - 2.0 mmol/L 10/27/2022 5:54 PM EDT LABORATORY [facility] Hemoglobin, Whole Blood 11.0(L) 14.0 - 16.8 g/dL 10/27/2022 5:54 PM EDT LABORATORY [facility] Oxyhemoglobin, Venous 38.9(L) 40.0 - 85.0 % total Hgb 10/27/2022 5:54 PM EDT LABORATORY [facility] Carboxyhemoglobi n, Whole Blood 3.8(H) <=1.5 % total Hgb 10/27/2022 5:54 PM EDT LAB[facility]ORY [facility] Comment:Smokers: 0-9.0 % Methemoglobin, Whole Blood 1.2 <=1.5 % total Hgb 10/27/2022 5:54 PM EDT LABORATORY [facility] Reduced Hemoglobin, Venous 56.1 % total Hgb 10/27/2022 5:54 PM EDT LABORATORY [facility] O2 Content, Venous 6.0(L) 7.0 - 18.0 %vol 10/27/2022 5:54 PM EDT LABORATORY GL Bicarbonate, Whole Blood 31.9(H) 23.0 - 31.0 mmol/L 10/27/2022 5:54 PM EDT LABORATORY GL Blood Venous blood specimen / Unknown Venipuncture / Unknown 10/27/2022 5:47 PM EDT 10/27/2022 5:51 PM EDT Dot Koenig LAB BLOOD JOSE A COHWDHURY Performing Organization Address City/[facility]/ZIP Co de Phone Number LABORATORY [address] [id number] * APTT (10/27/2022 5:47 PM EDT) aPTT 30 21 - 38 seconds 10/27/2022 6:07 PM EDT LABORATORY [facility] Blood Venous blood specimen / Unknown Venipuncture / Unknown 10/27/2022 5:47 PM EDT 10/27/2022 5:52 PM EDT Narrative LABORATORY GL - 10/27/2022 6:07 PM EDT Anticoagulation may affect testing. Refer to Q[employer]ME Test Catalog for a list of effects. Dot Koenig DO [facility] BLOOD JOSE A CHOWDHURY Performing Organization Address City/[facility]/ZIP Co de Phone Number LABORATORY [address] [address] * PT INR (10/27/2022 5:47 PM EDT) Prothrombin Time 13.6 11.6 - 15.2 seconds 10/27/2022 6:06 PM EDT LABORATORY [facility] INR 1.0 0.8 - 1.2 10/27/2022 6:06 PM EDT LABORATORY GL Blood Venous blood specimen / Unknown Venipuncture / Unknown 10/27/2022 5:47 PM EDT 10/27/2022 5:52 PM EDT Narrative LABORATORY [facility] - 10/27/2022 6:06 PM EDT Warfarin Therapy INR: 2.0-3.0 conventional anticoagulation INR: 2.5-3.5 high intensity anticoagulation Dot Koenig DO LAB BLOOD ORDHrebie CHOWDHURY Performing Organization Address City/[facility]/ZIP Co de Phone Number LABORATORY [address] [phone] * LACTATE, WHOLE BLOOD WITH REFLEX IF ABNORMAL (10/27/2022 5:47 PM EDT) Pathologist [facility] Lactate, Whole Blood 1.5 0.4 - 2.0 mmol/L 10/27/2022 5:54 PM EDT LABORATORY [facility] Blood Venous blood specimen / Unknown Venipuncture / Unknown 10/27/2022 5:47 PM EDT 10/27/2022 5:51 PM EDT Dot Koenig LAB BLOOD ORDHerbie CHOWDHURY Performing Organization Address City/[facility]/ZIP Co de Phone Number LABORATORY [address] [address] * TROPONIN T, HIGH SENSITIVITY (10/27/2022 5:47 PM EDT) [facility] Troponin T, High Sensitivity 16 <=22 ng/L 10/27/2022 6:19 PM EDT LABORATORY [facility] Blood Venous blood specimen / Unknown Venipuncture / Unknown 10/27/2022 5:47 PM EDT 10/27/2022 5:52 PM EDT Dot Koenig LAB BLOOD ORDHerbie CHOWDHURY LABORATORY [address] [address] * PROCALCITONIN (10/27/2022 5:47 PM EDT) [facility] Procalcitonin 0.06 <0.10 ng/mL 10/27/2022 6:19 PM EDT LAB[facility]ATORY [facility] Blood Venous blood specimen / Unknown Venipuncture / Unknown 10/27/2022 5:47 PM EDT 10/27/2022 5:52 PM EDT Narrative LABORATORY [facility] - 10/27/2022 6:19 PM EDT Less than 0.5 ng/mL: Low risk for progression to sepsis. Review patients condition for localized infections. 0.5 to 2.0 ng/mL: Intermediate risk for progresion to sepsis. Review underlying conditions. Recommend repeat PCT after 6 hours has elapsed. Greater than 2.0 ng/mL: high risk for progression to sepsis unless other causes are known. Dot Koenig DO LAB BLOOD JOSE A CHOWDHURY LABORATORY [facility] [address] [place] [address] * (ABNORMAL) COMPREHENSIVE METABOLIC PANEL (10/27/2022 5:47 PM EDT) BUN 14 6 - 20 mg/dL 10/27/2022 6:09 PM EDT [facility] Creatinine 0.9 0.6 - 1.2 mg/dL 10/27/2022 6:09 PM EDT [facility] Estimated Glomerular Filtration Rate >90 >=60 mL/min 10/27/2022 6:09 PM EDT [facility] Comment:eGFR is calculated b ased on the CKD-EPI 2020 equation Sodium 136 135 - 146 mmol/L 10/27/2022 6:09 PM EDT [facility] Potassium 3.5 3.5 - 5.1 mmol/L 10/27/2022 6:09 PM EDT [facility] Chloride 98 98 - 107 mmol/L 10/27/2022 6:09 PM EDT [facility] CO2 31 22 - 32 mmol/L 10/27/2022 6:09 PM EDT [facility] Anion Gap 7 7 - 15 mmol/L 10/27/2022 6:09 PM EDT [facility] Glucose 143(H) 70 - 120 mg/dL 10/27/2022 6:09 PM EDT [facility] Albumin 3.5(L) 3.8 - 5.0 g/dL 10/27/2022 6:09 PM EDT [facility] AST 35 10 - 50 U/L 10/27/2022 6:09 PM EDT [facility] Alkaline Phosphatase 110 35 - 130 U/L 10/27/2022 6:09 PM EDT [facility] Bilirubin, Total 0.2 <=1.2 mg/dL 10/27/2022 6:09 PM EDT [facility] Calcium 8.9 8.4 - 10.2 mg/dL 10/27/2022 6:09 PM EDT [facility] Protein 7.6 6.0 - 8.3 g/dL 10/27/2022 6:09 PM EDT [facility] ALT 62(H) 10 - 50 U/L 10/27/2022 6:09 PM EDT [facility] Blood Venous blood specimen / Unknown Venipuncture / Unknown 10/27/2022 5:47 PM EDT 10/27/2022 5:52 PM EDT Dot Koenig DO LAB BLOOD ORDE [facility] [address] [address] * CULTURE, BLOOD (10/27/2022 5:45 PM EDT) Blood Culture Growth No growth 11/01/2022 6:02 PM EDT LABORATORY [facility] Blood Venous blood specimen / Unknown Venipuncture / Unknown 10/27/2022 5:45 PM EDT 10/27/2022 5:53 PM EDT Dot Koenig DO LAB MICRO - GE NERAL ORDERABLES LAB[facility]ATORY [address] [address] * CULTURE, BLOOD (10/27/2022 5:38 PM EDT) Blood Culture Growth No growth 11/01/2022 6:02 PM EDT [facility] Blood Venous blood specimen / Unknown Venipuncture / Unknown 10/27/2022 5:38 PM EDT 10/27/2022 5:43 PM EDT Dot Koenig DO LAB MICRO - GE NERAL ORDERABLES Performing Organization Address City/[facility]/ZIP Co de Phone Number [facility]ATORY [facility] [address] [place], [place] [id number] * (ABNORMAL) GLUCOSE METER, POINT OF CARE (10/27/2022 5:37 PM EDT) [facility] Glucose Meter 143(H) 70 - 120 mg/dL 10/27/2022 5:40 PM EDT [facility] Blood Whole blood specimen / Unknown 10/27/2022 5:37 PM EDT 10/27/2022 5:40 PM EDT Dot Koenig DO LAB POINT OF C ARE TEST DOCKED DEVICE UNSOLICITED RESULTS Performing Organization Address [facility] de Phone Number [facility] [address] [place] [id number] * EKG (10/27/2022 5:32 PM EDT) 10/27/2022 5:32 PM EDT Procedure Note Cynthia Tiffany Giftykayejeevan, DO - 10/27/2022 5:32 PM EDT REASON FOR STUDY: SEPSIS CONCLUSIONS: Sinus rhythm with short IA Rightward axis Nonspecific ST abnormality Abnormal ECG When compared with ECG of 20-JUN-2022 13:14, Nonspecific T wave abnormality no longer evident in Inferior leads Ventricular Rate: 96 Atrial Rate: 96 IA Interval: 110 QRS Duration: 80 QT/QTc: 360/454 ms P-R-T [place]: 81 : 92 : 87 degrees Dot Koenig DO EKG Performing Organization Address [facility] Co de Phone Number [facility] documented in this encounter Visit Diagnoses Diagnosis Osteomyelitis (HCC)- Primary Unspecified osteomyelitis, site unspecified Sepsis (HCC) Unspecified septicemia Chest pain Chest pain, unspecified Osteomyelitis of right hand, unspecified type (HCC) Type 1 diabetes mellitus with diabetic polyneuropathy (HCC) Type I (juvenile type) diabetes mellitus with neurological manifestations, not stated as uncontrolled Type 1 diabetes mellitus with hemoglobin A1c goal of less than 8.0% (HCC) Hypothyroidism Unspecified hypothyroidism Type 1 diabetes mellitus with hemoglobin A1c goal of less than 8.0% (HCC) Neuropathy Mononeuritis of unspecified site Mixed dyslipidemia Mixed hyperlipidemia ADHD (attention deficit hyperactivity disorder), combined type Attention deficit disorder with hyperactivity Bipolar 1 disorder, depressed (HCC) Bipolar I disorder, most recent episode (or current) depressed, unspecified Smoking Tobacco use disorder Type 1 diabetes mellitus with diabetic polyneuropathy (HCC) Type I (juvenile type) diabetes mellitus with neurological manifestations, not stated as uncontrolled Malnutrition of moderate degree (HCC) Malnutrition of moderate degree Severe protein-calorie malnutrition (HCC) Other severe protein-calorie malnutrition Opioid use disorder, severe, on maintenance therapy (HCC) Compulsive skin picking Other disorder of impulse control Depression, major, recurrent, moderate (HCC) Major depressive disorder, recurrent episode, moderate Acute cystitis with hematuria Acute cystitis Hypokalemia Hypopotassemia Generalized weakness Other malaise and fatigue Nausea and vomiting Nausea with vomiting Decreased oral intake Other symptoms concerning nutrition, metabolism, and development documented in this encounter Administered Medications Inactive Administered Medications - up to 3 most recent administrations Medication Order MAR Action Action Date Dose Rate Site Acetaminophen (Tylenol) tab 650 mg 650 mg, Oral, Q6H PRN Pain, Mild, Fever >38C(100.5F), Starting on Sun10/27/22 at 1951, Until Estefania 11/02/22 at 1656, Maximum of 4 grams (4000 mg) per day. Given 11/02/2022 8:38 AM EDT 650 mg amoxicillin-clavulanate (Augmentin) tab 875 mg 875 mg, Oral, Q12H, First dose on Sun11/01/22 at 2100, Last dose on Sun11/15/22 at 0900, For 14 days Given 11/02/2022 8:38 AM EDT 875 mg Given 11/01/2022 8:27 PM EDT 875 mg dextrose 50 % inj 25 mL 25 mL, IV Push, PRN Hypoglycemia, Other, For blood glucose 54 - 69 mg/dL or 70 - 100 mg/dL with symptoms AND patient is unresponsive, NPO, OR unable to swallow, Starting on Sun10/27/22 at 1951, Until Estefania /17/23 at 1656, Administer IV. Recheck blood glucose after 15 minutes. Notify provider. Given 10/28/2022 3:37 AM EDT 25 mL Docusate Sodium (Colace) cap 100 mg 100 mg, Oral, BID(AM/PM), First dose on Sun10/27/22 at 2100, Until Discontinued, For oral administration ONLY, if route of administration is other than oral and alternative product must be ordered. Given 11/02/2022 8:38 AM EDT 100 mg Given 11/01/2022 8:27 PM EDT 100 mg Given 11/01/2022 9:26 AM EDT 100 mg Enoxaparin (Lovenox) inj 40 mg 40 mg, Subcutaneous, [id number], First dose on Sun10/28/22 at 1000, Until Discontinued, If patient is on warfarin, inform provider if daily INR value is 2 or greater! Given 11/02/2022 8:44 AM EDT 40 mg Abdom en Right Lower Given 11/01/2022 9:25 AM EDT 40 mg Ab domen Left Lower Given 10/31/2022 10:56 AM EDT 40 mg A bdomen Right Lower Gabapentin (Neurontin) cap 300 mg 300 mg, Oral, TID(AM/NOON/HS), First dose on Sun10/27/22 at 2200, Until Discontinued Given 11/02/2022 12:00 PM EDT 300 mg Given 11/02/2022 5:49 AM EDT 300 mg Given 11/01/2022 8:27 PM EDT 300 mg glucose chew tab 16 g 16 g, Oral, PRN Hypoglycemia, Other, For blood glucose 54 - 69 mg/dL or 70 - 100 mg/dL with symptoms and patient alert without difficulty chewing/swallowing., Starting on Sun10/27/22 at 1951, Until Sun11/02/22 at 1656 Given 10/30/2022 8:12 AM EDT 16 g Given 10/28/2022 8:41 AM EDT 16 g insulin aspart (NovoLOG) inj Subcutaneous, W/MEALS AND HS, First dose on Sun10/27/22 at 2200, Until Discontinued, MEDIUM DOSE (Usual [...] insulin dose and call covering provider. Given 11/02/2022 11:59 AM EDT 2 Units Abdomen Right Lower Given 11/01/2022 9:31 PM EDT 6 Units Ar m Left Upper Given 11/01/2022 5:12 PM EDT 6 Units Ar m Right Upper Insulin Glargine (Lantus) inj 12 Units 12 Units, Subcutaneous, HS, First dose on Sun10/27/22 at 2200, Until Discontinued, Given 10/29/2022 9:46 PM EDT 12 Units Abdo men Left Lower Given 10/28/2022 9:39 PM EDT 12 Units Ar m Right Upper Insulin Glargine (Lantus) inj 6 Units 6 Units, Subcutaneous, HS, First dose (after last modification) on Sun10/30/22 at 2200, Until Discontinued, Given 11/01/2022 9:31 PM EDT 6 Units Arm Left Upper Given 10/31/2022 10:14 PM EDT 6 Units A rm Right Upper Given 10/30/2022 9:58 PM EDT 6 Units Ar m Left Upper isolyte-S pH 7.4 infusion Intravenous, at 1,200 mL/hr, Obtain vital signs q15 min x 4 beginning within the hour after fluid bolus end time, then resume vital signs as ordered. Estimated body mass index is 16.14 kg/m as calculated from the following: Height as of this encounter: 1.676 m (5' 6"). Weight as of this encounter: 45.4 kg (100 lb). Actual body weight was utilized to determine target ordered volume. Plasma-LYTE 148, isolyte-S, and isolyte-S pH 7.4 are considered equivalent - including for MAR barcode scanning., ONCE, 1 dose, On Sun10/27/22 at 1815 New Bag 10/27/2022 5:50 PM EDT 1,362 mL 1200 mL/ hr levothyroxine (Levoxyl) tab 75 mcg 75 mcg, Oral, [id number], First dose on 10/28/22 at 0630, Until Discontinued Given 10/29/2022 6:27 AM EDT 75 mcg Given 10/28/2022 6:32 AM EDT 75 mcg levothyroxine (Levoxyl) tab 88 mcg 88 mcg, Oral, [id number], First dose (after last modification) on Sun10/30/22 at 0630, Until Discontinued Given 11/02/2022 5:49 AM EDT 88 mcg Given 11/01/2022 5:49 AM EDT 88 mcg Given 10/31/2022 6:27 AM EDT 88 mcg methADONE CONCentrated 10 mg/mL oral conc 100 mg 100 mg, Oral, Daily(AM), First dose on 10/28/22 at 0900, Until Discontinued, Note Concentration! Shake Well! Given 11/02/2022 8:38 AM EDT 100 mg Given 11/01/2022 9:26 AM EDT 100 mg Given 10/31/2022 10:55 AM EDT 100 mg mirtazapine ODT (Remeron Soltab) tab 15 mg 15 mg, Oral, Daily(AM), First dose on Sun10/28/22 at 0900, Until Discontinued Given 11/02/2022 8:38 AM EDT 15 mg Given 11/01/2022 9:26 AM EDT 15 mg Given 10/31/2022 10:56 AM EDT 15 mg NSS 0.9% 1,000 mL bolus infusion Intravenous, at 1,000 mL/hr Administer over 60 Minutes, Administer entire volume within 60 minutes or less., ONCE, 1 dose, On 10/28/22 at 0430 New Bag 10/28/2022 4:03 AM EDT 1,000 mL 1000 mL/hr NSS 0.9% 1,000 mL bolus infusion Intravenous, at 1,000 mL/hr Administer over 60 Minutes, Administer entire volume within 60 minutes or less., ONCE, 1 dose, On 10/29/22 at 1700 New Bag 10/29/2022 4:38 PM EDT 1,000 mL 1000 mL/hr NSS 0.9% 500 mL bolus infusion Intravenous, at 500 mL/hr Administer over 60 Minutes, Administer entire volume within 60 minutes or less., ONCE, 1 dose, On Sun10/30/22 at 0415 Rate Verify 10/30/2022 3:51 AM EDT 500 mL/hr Bolus from Bag 10/30/2022 3:48 AM EDT 500 mL 500 mL/hr NSS 0.9% 500 mL bolus infusion Intravenous, at 500 mL/hr Administer over 60 Minutes, Administer entire volume within 60 minutes or less., ONCE, 1 dose, On Sun10/30/22 at 0445 New Bag 10/30/2022 4:11 AM EDT 500 mL 50 0 mL/hr NSS infusion Intravenous, at 125 mL/hr, CONTINUOUS, Starting on Sun10/27/22 at 2030, Until Sun11/01/22 at 0741 Rate Verify 11/01/2022 6:26 AM EDT 125 mL/hr Restarted 11/01/2022 5:41 AM EDT 125 mL/hr New Bag 11/01/2022 1:50 AM EDT 125 mL/hr piperacillin-tazobactam (ZOSYN) 4.5 g in D5W 100 mL (FOUR hour infusion) IV Piggyback, 4.5 g, Q8HNOW, 15 doses, First dose on Sun10/28/22 at 0000, Last dose on Sun11/01/22 at 1900, Administer over 4 Hours, at 25 mL/hr New Bag 11/01/2022 11:11 AM EDT 4.5 g 25 mL/hr Rate Verify 11/01/2022 6:26 AM EDT 1.125 g/hr 25 mL/hr Restarted 11/01/2022 5:41 AM EDT 1.125 g/hr 25 mL/hr piperacillin-tazobactam in D5W (Zosyn) (HALF hour infusion) ivpb 4.5 g 4.5 g, IV Piggyback, ONCE, On Sun10/27/22 at 1815, For 1 dose New Bag 10/27/2022 6:00 PM EDT 4.5 g 200 mL/hr potassium chloride ER tab 40 mEq 40 mEq, Oral, ONCE, On 10/28/22 at 0930, For 1 dose, This med should NOT be Crushed or Chewed Given 10/28/2022 9:56 AM EDT 40 mEq PURACYN PLUS RX wound & skin care fliptop topical soln Topical, Daily(AM), First dose on Sun11/02/22 at 0900, Until Discontinued, Apply soak for 3-5 mins to BL hand wounds Given 11/02/2022 8:39 AM EDT QUEtiapine (SEROquel) tab 200 mg 200 mg, Oral, HS, First dose on Sun10/27/22 at 2200, Until Discontinued Given 11/01/2022 8:27 PM EDT 200 mg Given 10/31/2022 10:13 PM EDT 200 mg Given 10/30/2022 9:58 PM EDT 200 mg sulfamethoxazole-trimethoprim DS (Bactrim DS) 800-160 MG 1 Tablet 1 Tablet, Oral, Q12H, First dose on Sun11/01/22 at 2100, Last dose on Sun11/15/22 at 0900, For 14 days Given 11/02/2022 8:44 AM EDT 1 Tablet Given 11/01/2022 8:27 PM EDT 1 Tablet Vancomycin (Vancocin) 1250 mg in NSS 250 mL ivpb 1,250 mg, IV Piggyback, ONCE, 1 dose, On Sun10/27/22 at 1815 New Bag 10/27/2022 6:40 PM EDT 1,250 mg 183.33 mL/hr Vancomycin (Vancocin) 1500 mg in NSS 250 mL ivpb LOCKED DOSE 1,500 mg, IV Piggyback, Q24H, First dose (after last modification) on Sun10/30/22 at 0630, Until Discontinued Rate Verify 11/01/2022 6:26 AM EDT 999.8 mg/hr 183.3 mL/hr New Bag 11/01/2022 5:59 AM EDT 1,500 mg 183.33 mL/hr Rate Verify 10/31/2022 7:30 AM EDT 999.8 mg/hr 183.3 mL/hr vancomycin (Vancocin) 750 mg in NSS 100 mL ivpb 750 mg, IV Piggyback, [id number], First dose on Sun10/28/22 at 0600, Until Discontinued New Bag 10/29/2022 6:25 AM EDT 750 mg 110 mL/hr New Bag 10/28/2022 5:53 PM EDT 750 mg 110 mL/hr Rate Verify 10/28/2022 6:57 AM EDT 750 mg/hr 110 mL/hr vancomycin per pharmacy order Routine, NURSING: THIS IS TO REMIND YOU THAT PHARMACY WILL BE PLACING ORDERS FOR THIS MEDICATION --- NO DOCUMENTATION OF ADMIN OR ADDRESSED IS REQUIRED ON THIS ORDER documented in this encounter Active and Recently Administered Medications Times are shown in EDT. Scheduled Medication Order 10/31/2022 11/01/2022 11/02/2022 amoxicillin-clavulanate (Augmentin) tab 875 mg 875 mg, Oral, Q12H, First dose on Sun11/01/22 at 2100, Last dose on Sun11/15/22 at 0900, For 14 days 2026 (Given - Provider: Thiago Moore RN) 0838 (Given - Provider: Palak Bautista LPN) Docusate Sodium (Colace) cap 100 mg 100 mg, Oral, BID(AM/PM), First dose on Sun10/27/22 at 2100, Until Discontinued, For oral administration ONLY, if route of administration is other than oral and alternative product must be ordered. 1056 (Given - Provider: Jaimie Sharma RN)2213 (Given - Provider: Cinthia Ferguson RN) 0926 (Given - Provider: Palak Bautista LPN)2026 (Given - Provider: Thiago Moore RN) 0838 (Given - Provider: Palak Bautista LPN) Enoxaparin (Lovenox) inj 40 mg 40 mg, Subcutaneous, [id number], First dose on Sun10/28/22 at 1000, Until Discontinued, If patient is on warfarin, inform provider if daily INR value is 2 or greater! 1056 (Given - Provider: Jaimie Sharma RN) 0925 (Given - Provider: Palak Bautista LPN) 0844 (Given - Provider: Palak Bautista LPN) Gabapentin (Neurontin) cap 300 mg 300 mg, Oral, TID(AM/NOON/HS), First dose on Sun10/27/22 at 2200, Until Discontinued 06 (Given - Provider: Lianne Ruelas RN)1248 (Given - Provider: Brenda Heath RN)2213 (Given - Provider: Cinthia Ferguson RN) 0549 (Given - Provider: Cinthia Freguson RN)1229 (Given - Provider: Palak Bautista LPN)2027 (Given - Provider: Thiago Moore RN) 0549 (Given - Provider: Thiago Moore RN)1200 (Given - Provider: Palak Bautista LPN) insulin aspart (NovoLOG) inj Subcutaneous, W/MEALS AND HS, First dose on Sun10/27/22 at 2200, Until Discontinued, MEDIUM DOSE (Usual [...] suggested insulin dose and call covering provider. 0800 (No Insulin - Provider: Jaimie Sharma RN - Reason: Parameter(s) Not Met)1248 (Given - Provider: Brenda Heath RN)1635 (Given - Provider: Jaimie Sharma RN)2214 (Given - Provider: Cinthia Ferguson RN) 0925 (Given - Provider: Palak Bautista LPN)1200 (Not Given - Provider: Palak Bautista LPN - Reason: Parameter(s) Not Met)1712 (Given - Provider: Palak Bautista LPN)2131 (Given - Provider: Thiago Moore RN) 0800 (Not Given - Provider: Palak Bautista LPN - Reason: Parameter(s) Not Met)1159 (Given - Provider: Palak Bautista LPN) Insulin Glargine (Lantus) inj 6 Units 6 Units, Subcutaneous, HS, First dose (after last modification) on Sun10/30/22 at 2200, Until Discontinued, 221 (Given - Provider: Cinthia Ferguson RN) 213 (Given - Provider: Thiago Moore RN) levothyroxine (Levoxyl) tab 88 mcg 88 mcg, Oral, [id number], First dose (after last modification) on Sun10/30/22 at 0630, Until Discontinued 0627 (Given - Provider: Lianne Ruelas RN) 0549 (Given - Provider: Cinthia Ferguson RN) 0549 (Given - Provider: Thiago Moore RN) methADONE CONCentrated 10 mg/mL oral conc 100 mg 100 mg, Oral, Daily(AM), First dose on 10/28/22 at 0900, Until Discontinued, Note Concentration! Shake Well! 1055 (Given - Provider: Jaimie Sharma RN) 0926 (Given - Provider: Palak Bautista LPN) 0838 (Given - Provider: Palak Bautista LPN) mirtazapine ODT (Remeron Soltab) tab 15 mg 15 mg, Oral, Daily(AM), First dose on 10/28/22 at 0900, Until Discontinued 1056 (Given - Provider: Jaimie Sharma RN) 0926 (Given - Provider: Palak Bautista LPN) 0838 (Given - Provider: Palak Bautista LPN) piperacillin-tazobactam (ZOSYN) 4.5 g in D5W 100 mL (FOUR hour infusion) (CANCELED) IV Piggyback, 4.5 g, Q8HNOW, 15 doses, First dose on Sun10/28/22 at 0000, Last dose on Sun11/01/22 at 1900, Administer over 4 Hours, at 25 mL/hr 0031 (New Bag - Provider: Lianne Ruelas RN)0034 (Rate Verify - Provider: Lianne Ruelas RN)0431 (Stopped - Provider: Lianne Ruelas RN)1055 (New Bag - Provider: Jaimie Sharma RN - Comment: MRI)1455 (Stopped - Provider: Jaimie Sharma RN)1844 (New Bag - Provider: Jaimie Sharma RN)2245 (Stopped - Provider: Cinthia Ferguson RN) 0300 (New Bag - Provider: Cinthia Ferguson, RN)0536 (Paused - Provider: Cinthia Ferguson, RN)0541 (Restarted - Provider: Cinthia Ferguson, RN)0626 (Rate Verify - Provider: Cinthia Ferguson RN)0705 (Stopped - Provider: Palak Bautista LPN)1111 (New Bag - Provider: Palak Bautista LPN)1510 (Stopped - Provider: Palak Bautista LPN) PURACYN PLUS RX wound & skin care fliptop topical soln Topical, Daily(AM), First dose on Sun11/02/22 at 0900, Until Discontinued, Apply soak for 3-5 mins to BL hand wounds 0839 (Given - Provider: Palak Bautista LPN) QUEtiapine (SEROquel) tab 200 mg 200 mg, Oral, HS, First dose on Sun10/27/22 at 2200, Until Discontinued 2212 (Given - Provider: Cinthia Ferguson RN) 2026 (Given - Provider: Thiago Moore, DAVION) sulfamethoxazole-trimetho prim DS (Bactrim DS) 800-160 MG 1 Tablet 1 Tablet, Oral, Q12H, First dose on Sun11/01/22 at 2100, Last dose on Sun11/15/22 at 0900, For 14 days 2026 (Given - Provider: Thiago Moore RN) 0844 (Given - Provider: Palak Bautista LPN) Vancomycin (Vancocin) 1500 mg in NSS 250 mL ivpb LOCKED DOSE (CANCELED) 1,500 mg, IV Piggyback, Q24H, First dose (after last modification) on Sun10/30/22 at 0630, Until Discontinued 0640 (New Bag - Provider: Lianne Ruelas RN)0730 (Rate Verify - Provider: Lianne Ruelas RN)0810 (Stopped - Provider: Cinthia Ferguson RN) 0559 (New Bag - Provider: Cinthia Ferguson, DAVION)0626 (Rate Verify - Provider: Cinthia Ferguson RN)0729 (Stopped - Provider: Palak Bautista LPN) vancomycin per pharmacy order Routine, NURSING: THIS IS TO REMIND YOU THAT PHARMACY WILL BE PLACING ORDERS FOR THIS MEDICATION --- NO DOCUMENTATION OF ADMIN OR ADDRESSED IS REQUIRED ON THIS ORDER Continuous Medication Order 10/31/2022 11/01/2022 11/02/2022 NSS infusion (CANCELED) Intravenous, at 125 mL/hr, CONTINUOUS, Starting on Sun10/27/22 at 2030, Until Sun11/01/22 at 0741 0034 (Rate Verify - Provider: Lianne Ruelas RN)0034 (Stopped - Provider: Lianne Ruelas RN)0036 (New Bag - Provider: Lianne Ruelas RN)0657 (Rate Verify - Provider: Lianne Ruelas RN)0658 (Rate Verify - Provider: Lianne Ruelas RN)0730 (Rate Verify - Provider: Lianne Ruelas RN)0835 (Stopped - Provider: Jaimie Sharma RN)0835 (New Bag - Provider: Gil Cardoza RN)0854 (Paused - Provider: Jaimie Sharma RN)1051 (Restarted - Provider: Jaimie Sharma RN)1544 (Rate Verify - Provider: Jaimie Sharma RN)1748 (Stopped - Provider: Jaimie Sharma RN)1749 (New Bag - Provider: Jaimie Sharma RN)1750 (Rate Verify - Provider: Jaimie Sharma RN)2340 (Rate Verify - Provider: Cinthia Ferguson RN) 0149 (Stopped - Provider: Cinthia Ferguson RN)0150 (New Bag - Provider: Cinthia Ferguson RN)0536 (Paused - Provider: Cinthia Ferguson RN)0541 (Restarted - Provider: Cinthia Ferguson RN)0626 (Rate Verify - Provider: Cinthia Ferguson RN)0800 (Stopped - Provider: Palak Bautista LPN) PRN Medication Order 10/31/2022 11/01/2022 11/02/2022 Acetaminophen (Tylenol) tab 650 mg 650 mg, Oral, Q6H PRN Pain, Mild, Fever >38C(100.5F), Starting on Sun10/27/22 at 1951, Until Sun11/02/22 at 1656, Maximum of 4 grams (4000 mg) per day. 0838 (Given - Provid er: Palak Bautista LPN) Albuterol Sulfate (Proventil) (2.5 MG/3ML) 0.083% inhalation solution 2.5 mg 2.5 mg, Nebulizer, Q6H PRN Dyspnea, Starting on Sun10/27/22 at 1951, Until Sun11/02/22 at 1655 dextrose 50 % inj 25 mL 25 mL, IV Push, PRN Hypoglycemia, Other, For blood glucose 54 - 69 mg/dL or 70 - 100 mg/dL with symptoms AND patient is unresponsive, NPO, OR unable to swallow, Starting on Sun10/27/22 at 1950, Until Sun11/02/22 at 1655, Administer IV. Recheck blood glucose after 15 minutes. Notify provider. dextrose 50 % inj 50 mL 50 mL, IV Push, PRN Hypoglycemia, Other, For blood glucose below 54 mg/dL AND patient unresponsive, NPO, OR unable to swallow, Starting on Sun10/27/22 at 1950, Until Sun11/02/22 at 1655, Administer IV. Recheck blood glucose in 15 minutes. Notify provider. glucagon (Glucagen) inj 1 mg 1 mg, Intramuscular, PRN Hypoglycemia, Other, If patient is unresponsive, or NPO and has no IV access, Starting on Sun10/27/22 at 1950, Until Sun11/02/22 at 1655, NPO and no IV access with either [...] patient alert WITH difficulty chewing/swallowing, Starting on Sun10/27/22 at 1950, Until Sun11/02/22 at 1655, Administer gel. Recheck blood glucose after 15 minutes. Notify provider. 37.5 gram tube = 15 grams glucose = 1 each Glucose (Glutose 15) 40 % gel 30 g of glucose 30 g of glucose, Oral, PRN Hypoglycemia (low sugar), Other, For blood glucose below 54 mg/dL AND patient alert WITH difficulty chewing/swallowing, Starting on Sun10/27/22 at 1950, Until Sun11/02/22 at 1655, Administer gel. Recheck blood glucose after 15 minutes. Notify provider. 37.5 gram tube = 15 grams glucose = 1 each glucose chew tab 16 g 16 g, Oral, PRN Hypoglycemia, Other, For blood glucose 54 - 69 mg/dL or 70 - 100 mg/dL with symptoms and patient alert without difficulty chewing/swallowing., Starting on Sun10/27/22 at 195, Until Estefania 11/02/22 at 1656 ondansetron (Zofran) inj 4 mg 4 mg, IV Push, Q6H PRN Nausea, Starting on Sun10/27/22 at 195, Until Estefania 11/02/22 at 1656 sodium chloride 0.9 % flush/inj 3 mL 3 mL, IV Push, PRN Other, Line Patency, Starting on Sun10/27/22 at 195, Until Estefania 11/02/22 at 1656, Do not flush if lock, PICC, or central line not in place, IV infusing or unable to flush documented in this encounter Additional Health Concerns Infection Onset Date Last Indicated Resolved Time ((Group A Strep) Strep pyogenes) 06/27/2022 06/28/1910/31/2022 7:25 AM EDT MRSA 10/27/2022 10/28/2022 ((Group A Strep) Strep [...] the patient have Health Care Power of Cashier Gambling? No Code Status History Code Status Date Activated Date Inactivated Comments Full Code 12/25/2021 1:35 PM 01/06/2022 6:52 PM This order reflects the patients wishes and were consensually agreed upon. Question Answer Comments Discussion of Advance Directives occurred with: Family Does the patient have a Living Will? No Does the patient have Health Care Power of Cashier Gambling? No Full Code 07/16/2015 10:39 AM 07/17/2015 [...] the patient have Health Care Power of Cashier Gambling? No Care Teams Marine Designer Relationship Specialty Start Date End Date Av Graves MD [facility] SARITHA Messer [id number] PCP - General Family Medicine 06/27/22 documented as of this encounter
--- OUTSIDE RECORDS SUMMARY | 2023-04-19 19:58 | External Medical Summary ---
Author Name Unknown Address Unknown Organization [facility] [address] [place] [address] Laboratory Report Ordering Provider Test Date Status CASTRO BRUNO 10/31/2022 06:01:00 Final Observation Date Value Abnormality Reference (Units ) Status Magnesium 10/31/2022 06:01:00 1.8 1.5-2.6 (m g/dL) Final Performing Location [facility] [address] [place] [id number]
--- OUTSIDE RECORDS SUMMARY | 2023-04-19 19:58 | External Medical Summary | Summary of Care ---
Author Name Unknown Organization [facility] Address [address] [place] [address] Phone [phone] Care Team Providers Care Drawer Liner Name Role Phone Av Graves MD Primary Care Provider [phone] Reason for Visit * Reason Onset Date Comments Appointment 11/01/2022 3 day urgent Encounter Details Date Type Department Care Team Description 11/01/2022 Telephone Wound Care, [facility] [address] [place] [address] Mikael Caldera MD [address] [place], [place] [id number] Appointment (3 day urgent) Allergies No known [...] 1 Kit 0 12/02/2021 Suspended Additional Information Zyme SolutionsToULURU Verio In Vitro Strip (Glucose Blood)Indications: Type [...] 100 Strip 5 01/10/2022 Suspended Additional Information Zyme SolutionsTouch Delica Plus [id number] ns:Type 1 diabetes mellitus with hemoglobin A1c [...] Oral Tablet (SEROquel)Indicati ons:Bipolar 1 disorder, depressed ([facility]) Take [...] Medicine Av Graves MD [address] [phone] 11/28/2022 Office Visit Ophthalmology Jorge Shepherd DO [address] [id number] 12/27/2022 Office Visit Family Medicine Av Graves MD [address] [address] Health Maintenance Due Date Last Done Comments DISCUSS TOBACCO CESSATION (REFER TO SMARTSET #3294) 1985 Hepatitis B (1 of 3 - [...] the patient have Health Care Power of Pulvi Mixer Operator? No Code Status History Code Status Date Activated Date Inactivated Comments Full Code 12/25/2021 1:35 PM 01/06/2022 6:52 PM This order reflects the patients wishes and were consensually agreed upon. Question Answer Comments Discussion of Advance Directives occurred with: Family Does the patient have a Living Will? No Does the patient have Health Care Power of Pulvi Mixer Operator? No Full Code 07/16/2015 10:39 AM [...] the patient have Health Care Power of Pulvi Mixer Operator? No Care Teams Drawer Liner Relationship Specialty Start Date End Date Av Graves MD [facility] SAR[place] Messer [phone] PCP - General Family Medicine 06/27/22 documented as of this encounter
--- OUTSIDE RECORDS SUMMARY | 2023-04-19 19:58 | External Medical Summary ---
Author Name Unknown Address Unknown Organization K1F:[facility] - [address] [place] [address] Laboratory Report Ordering Provider Test Date Status CASTRO BRUNO 10/31/2022 06:01:00 Final Observation Date Value Abnormality Reference (Units ) Status Phosphate 10/31/2022 06:01:00 2.5 2.5-4.8 (m g/dL) Final Performing Location [facility] - [address] [place] [address]
--- OUTSIDE RECORDS SUMMARY | 2023-04-19 19:58 | External Medical Summary ---
Author Name Unknown Address Unknown Organization : Laboratory Report Ordering Provider Test Date Status CASTRO BRUNO 10/31/2022 11:43:25 Final Observation Date Value Abnormality Reference (Units ) Status Glucose Point of Care 10/31/2022 11:43:25 202 Above high normal 70-120 (mg/dL) Final Performing Location
--- OUTSIDE RECORDS SUMMARY | 2023-04-19 19:58 | External Medical Summary ---
Author Name Unknown Address Unknown Organization : Laboratory Report Ordering Provider Test Date Status CASTRO BRUNO 11/02/2022 11:36:25 Final Observation Date Value Abnormality Reference (Units ) Status Glucose Point of Care 11/02/2022 11:36:25 171 Above high normal 70-120 (mg/dL) Final Performing Location
--- OUTSIDE RECORDS SUMMARY | 2023-04-19 19:58 | External Medical Summary ---
Author Name Unknown Address Unknown Organization : Laboratory Report Ordering Provider Test Date Status CASTRO BRUNO 11/01/2022 11:28:33 Final Observation Date Value Abnormality Reference (Units ) Status Glucose Point of Care 11/01/2022 11:28:33 148 Above high normal 70-120 (mg/dL) Final Performing Location
--- OUTSIDE RECORDS SUMMARY | 2023-04-19 19:58 | External Medical Summary | Summary of Care ---
Author Name Unknown Organization [facility] Address [address] [place] [address] Phone [phone] Care Team Providers Care Nursing Staffing Coordinator Name Role Phone Av Graves MD Primary Care Provider [phone] Reason for Visit * Reason Onset Date Comments Hospital Follow-Up 11/01/2022 Encounter Details Date Type Department Care Team Description 11/01/2022 Telephone Orthopaedics, [facility] [address] [place] [address] Services, Scheduling [address] [place] [address] Hospital Follow-Up Allergies No known active allergiesdocumented as of this encounter (statuses as of 11/01/2022) Medications Medication Sig Dispensed Refills Start Date End Date Status Mirtazapine 15 MG Oral Tablet (Remeron) Take 1 Tablet by mouth in the morning. 0 2 Suspended Methadone HCl 10 MG/5ML Oral Solution Take 69.5 mL by mouth in the morning. 0 2 Suspended OneTouch Verio w/Device KitIndications:Typ e 1 diabetes mellitus with hemoglobin A1c goal of less than 8.0% ([facility]) Use up to 4 times a day E11.9 1 Kit 0 2 Suspended Additional Information OneTouch Verio In Vitro Strip (Glucose Blood)Indications: Type 1 diabetes mellitus with hemoglobin A1c goal of less than 8.0% (HCC) Use up to 4 times a day E11.9 100 Strip 11 2 Suspended Additional Information Insulin Glargine 100 UNIT/ML Subcutaneous Solution (Lantus) Inject under the skin 10 Units before bedtime. 1 Each 12 2 Suspended Additional Information Patient taking differently: 12 UnitsSubcutaneous HS, Reported on 06/27/2022 Insulin Aspart 100 UNIT/ML Subcutaneous Solution (NovoLOG) Check blood sugar before each meal and at bedtime then inject insulin aspart based on the sliding scale -- Glucose 150-200: 2 units, Glucose 201-250: 4 units, Glucose 251-300: 6 units, Glucose 301-350: 8 units, Glucose 351-400: 10 units, Glucose greater than 400: 12 units 1 Each 12 2 Suspended Additional Information Insulin Aspart 100 UNIT/ML Subcutaneous Solution Pen-injector (novoLOG) Check blood sugar before each meal and at bedtime then inject insulin aspart based on the sliding scale -- Glucose 150-200: 2 units, Glucose 201-250: 4 units, Glucose 251-300: 6 units, Glucose 301-350: 8 units, Glucose 351-400: 10 units, Glucose greater than 400: 12 units 0 2 Suspended Lantus SoloStar 100 UNIT/ML Subcutaneous Solution Pen-injector Inject 12 Units under the skin at bedtime. 0 2 Suspended oxygen IN GAS Use as directed. 1 lpm @@rest and 4 lpm with exertion using as needed 0 Suspended BD Pen Needle Mini U/F 31G X 5 MM (Insulin Pen Needle)Indications :Type 1 diabetes mellitus with hemoglobin A1c goal of less than 8.0% (HCC) USE THREE TIMES DAILY WITH HUMALOG KWIK PEN 100 Each 11 2 Suspended Additional Information OneTouch Verio In Vitro StripIndications:T ype 1 diabetes mellitus with hemoglobin A1c goal of less than 8.0% (HCC) Test as directed 1 Strip in the morning AND 1 Strip at noon AND 1 Strip in the evening. 100 Strip 5 2 Suspended Additional Information OneTouch Delica Plus [id number] ns:Type 1 diabetes mellitus with hemoglobin A1c goal of less than 8.0% (HCC) test blood sugars FOUR TIMES DAILY 100 Each 5 2 Suspended Additional Information ProAir HFA 108 (90 Base) MCG/ACT Inhalation Aerosol SolutionIndication s:Pneumonia of both upper lobes due to infectious organism Inhale by mouth 2 Puffs every 4 hours as needed for Wheezing. 18 g 1 2 Suspended Additional Information Sildenafil Citrate 25 MG Oral Tablet Take 1 Tablet by mouth as needed. 0 2 Suspended Levothyroxine Sodium 75 MCG Oral Tablet (Levoxyl)Indicatio ns:Acquired hypothyroidism Take 1 Tablet by mouth in the morning. (at least 30 min prior to breakfast or other meds). 30 Tablet 1 3 Suspended Additional Information Gabapentin 300 MG Oral Capsule (Neurontin) Take 1 Capsule by mouth in the morning and 1 Capsule at noon and 1 Capsule before bedtime. 0 3 Suspended QUEtiapine Fumarate 200 MG Oral Tablet (SEROquel)Indicati ons:Bipolar 1 disorder, depressed (HCC) Take 1 Tablet by mouth at bedtime. 90 Tablet 3 3 Suspended Additional Information documented as of this [...] Miscellaneous Notes * Telephone Encounter - ULISSES Lopez - 11/01/2022 9:31 AM EDT Patient is currently admitted and is needing a 1 week hand specialist HD follow up per Samantha Holman. I cannot see anything on my end to schedule, please advise. Thank you! documented in this encounter Plan of Treatment Upcoming Encounters Date Type Specialty Care Team Description 11/28/2022 Office Visit Ophthalmology Jorge Shepherd DO [address] [id number] 12/27/2022 Office Visit Family Medicine Av Graves MD [address] [address] Health Maintenance Due Date Last Done Comments DISCUSS TOBACCO CESSATION (REFER TO SMARTSET #3299) 1985 Hepatitis B (1 of 3 - [...] the patient have Health Care Power of Credit Collections Rep? No Code Status History Code Status Date Activated Date Inactivated Comments Full Code 12/25/2021 1:35 PM 01/06/2022 6:52 PM This order reflects the patients wishes and were consensually agreed upon. Question Answer Comments Discussion of Advance Directives occurred with: Family Does the patient have a Living Will? No Does the patient have Health Care Power of Credit Collections Rep? No Full Code 07/16/2015 10:39 AM 07/17/2015 [...] the patient have Health Care Power of Credit Collections Rep? No Care Teams Nursing Staffing Coordinator Relationship Specialty Start Date End Date Av Graves MD [address] [facility] [place]er [phone] PCP - General Family Medicine 06/27/22 documented as of this encounter
--- OUTSIDE RECORDS SUMMARY | 2023-04-19 19:58 | External Medical Summary ---
Author Name Unknown Address Unknown Organization : Laboratory Report Ordering Provider Test Date Status CASTRO BRUNO 10/31/2022 16:30:55 Final Observation Date Value Abnormality Reference (Units ) Status Glucose Point of Care 10/31/2022 16:30:55 245 Above high normal 70-120 (mg/dL) Final Performing Location
--- OUTSIDE RECORDS SUMMARY | 2023-04-19 19:59 | External Medical Summary ---
Author Name Unknown Address Unknown Organization K1F:[facility] - [address] [place] [address] Laboratory Report Ordering Provider Test Date Status NICOLE CALDWELL 10/30/2022 04:09:00 Final Observation Date Value Abnormality Reference (Units ) Status Lactic Acid 10/30/2022 04:09:00 0.6 0.4-2.0 (mmol/L) Final Performing Location [facility] - [address] [place] [address]
--- OUTSIDE RECORDS SUMMARY | 2023-04-19 19:59 | External Medical Summary ---
Author Name Unknown Address Unknown Organization : Laboratory Report Ordering Provider Test Date Status CASTRO BRUNO 10/30/2022 11:39:50 Final Observation Date Value Abnormality Reference (Units ) Status Glucose Point of Care 10/30/2022 11:39:50 146 Above high normal 70-120 (mg/dL) Final Performing Location
--- OUTSIDE RECORDS SUMMARY | 2023-04-19 19:59 | External Medical Summary ---
Author Name Unknown Address Unknown Organization K01:LABORATORY [facility] - [address] [place] [address] Laboratory Report Ordering Provider Test Date Status MARILYN CASANOVA 10/27/2022 22:09:55 Final Observation Date Value Abnormality Reference (Units ) Status Methicillin resistant Staphylococcus aureus (MRSA) DNA [Presence] in Nose by JAVED with probe detection 10/27/2022 22:09:55 Positive Abnormal Negative Final Methicillin resistant Staphy lococcus aureus detected by PCR (amplified probe). MRSA-This patient may require isolation. Please refer to Infection Control isolation policy. Performing Location LAB[facility] [address] [facility] [place] [address]
--- OUTSIDE RECORDS SUMMARY | 2023-04-19 19:59 | External Medical Summary ---
Author Name Unknown Address Unknown Organization K1F:LABORATORY [facility] - [address] [place] [address] Laboratory Report Ordering Provider Test Date Status BERTORACHAELLATESHA 10/27/2022 17:47:04 Final Observation Date Value Abnormality Reference (Units ) Status CRP, low-sensitivity 10/27/2022 17:47:04 14 Above high normal <=5 (mg/L) Final Performing Location [facility] - [address] [place] [address]
--- OUTSIDE RECORDS SUMMARY | 2023-04-19 19:59 | External Medical Summary ---
Author Name Unknown Address Unknown Organization : Laboratory Report Ordering Provider Test Date Status RACHNA RUIZ 10/28/2022 11:02:12 Final Observation Date Value Abnormality Reference (Units ) Status Glucose Point of Care 10/28/2022 11:02:12 180 Above high normal 70-120 (mg/dL) Final Performing Location
--- OUTSIDE RECORDS SUMMARY | 2023-04-19 19:59 | External Medical Summary ---
Author Name Unknown Address Unknown Organization K01:[facility] [address] [facility] [address] Laboratory Report Ordering Provider Test Date Status MARILYN CASANOVA 10/28/2022 07:58:00 Final Observation Date Value Abnormality Reference (Units ) Status HbA1C 10/28/2022 07:58:00 12.8 Above high normal 4. 0-5.6 (%) Final The use of HbA1c to monitor glycemic status is based on normal hemoglobin and HbA composition. This test should not be used in patients with abnormal hemoglobin that affects the half life of the red blood cell or the in vivo glycation rates. Glucose, estimated average 10/28/2022 07:58:00 321 Above high normal <126 (mg/dL) Gustavo cowart Performing Location [facility] [address] [facility] [facility] [address]
--- OUTSIDE RECORDS SUMMARY | 2023-04-19 19:59 | External Medical Summary ---
Author Name Unknown Address Unknown Organization K1F:LABORATORY [place] [id number] Laboratory Report Ordering Provider Test Date Status ESTER THOMSON 10/27/2022 17:38:54 Final Observation Date Value Abnormality Reference (Units ) Status Bacteria identified in Specimen by Culture 10/27/2022 17:38:54 No growth Final Test: Culture, Blood
[facility] Source: Blood, Venous
Specimen Type: Blood
Specimen Date: 10/27/2022 5:38 PM
Result Date: 11/01/2022 6:02 PM
Result Status: Final result
Resulting Lab: LABORATORY [facility]
[address] [place] [address]
[place] [id number]

CULTURE

No growth

null Performing Location LABORATORY [facility] - [address] [place], [place] [address]jorge [place] [address]
--- OUTSIDE RECORDS SUMMARY | 2023-04-19 19:59 | External Medical Summary ---
Author Name Unknown Address Unknown Organization K1F:LABORATORY [facility] - [address] [place] [address] Laboratory Report Ordering Provider Test Date Status ESTER THOMSON 10/27/2022 17:47:04 Final Observation Date Value Abnormality Reference (Units ) Status Lactic Acid, Whole Blood 10/27/2022 17:47:04 1.5 0.4-2.0 (mmol/L) Final Performing Location [facility] - [address] [place] [address]
--- OUTSIDE RECORDS SUMMARY | 2023-04-19 19:59 | External Medical Summary ---
Author Name Unknown Address Unknown Organization K1F:LABORATORY [facility] - [address] [place] [address] Laboratory Report Ordering Provider Test Date Status ESTER THOMSON 10/28/2022 03:53:02 Final Observation Date Value Abnormality Reference (Units ) Status RBC, Urine 10/28/2022 03:53:02 50+ Abnormal 0-2 (/HPF) Final WBC, Urine 10/28/2022 03:53:02 50+ Abnormal 0-2 (/HPF) Final Bacteria [#/area] in Urine sediment by Microscopy high power field 10/28/2022 03:53:02 101-150 Abnormal 0-25 (/HPF) Final Performing Location LABORATORY [facility] - [address] [place] [address]
--- OUTSIDE RECORDS SUMMARY | 2023-04-19 19:59 | External Medical Summary ---
Author Name Unknown Address Unknown Organization : Laboratory Report Ordering Provider Test Date Status RACHNA RUIZ 10/28/2022 09:15:26 Final Observation Date Value Abnormality Reference (Units ) Status Glucose Point of Care 10/28/2022 09:15:26 226 Above high normal 70-120 (mg/dL) Final Performing Location
--- OUTSIDE RECORDS SUMMARY | 2023-04-19 19:59 | External Medical Summary ---
Author Name Unknown Address Unknown Organization K1F:LABORATORY [facility] - [address] [place] [address] Laboratory Report Ordering Provider Test Date Status ESTER THOMSON 10/27/2022 17:47:04 Final Warfarin Therapy
INR: 2 .0-3.0 conventional anticoagulation
INR: 2.5- 3.5 high intensity anticoagulation Observation Date Value Abnormality Reference (Units ) Status PT 10/27/2022 17:47:04 13.6 11.6-15.2 (seconds) Final INR 10/27/2022 17:47:04 1.0 0.8-1.2 Final Performing Location [facility] - [address] [place] [address]
--- OUTSIDE RECORDS SUMMARY | 2023-04-19 19:59 | External Medical Summary ---
Author Name Unknown Address Unknown Organization : Laboratory Report Ordering Provider Test Date Status RACHNA RUIZ 10/28/2022 04:04:36 Final Observation Date Value Abnormality Reference (Units ) Status Glucose Point of Care 10/28/2022 04:04:36 130 Above high normal 70-120 (mg/dL) Final Performing Location
--- OUTSIDE RECORDS SUMMARY | 2023-04-19 19:59 | External Medical Summary ---
Author Name Unknown Address Unknown Organization K1F:[facility] - [address] [place] [address] Laboratory Report Ordering Provider Test Date Status RACHNA RUIZ 10/29/2022 07:25:00 Final Observation Date Value Abnormality Reference (Units ) Status BUN 10/29/2022 07:25:00 16 6-20 (mg/dL) Final Creatinine 10/29/2022 07:25:00 1.1 0.6-1.2 (mg/dL) Final Glomerular filtration rate/1.73 sq M.predicted [Volume Rate/Area] in Serum, Plasma or Blood by Creatinine-based formula (CKD-EPI) 10/29/2022 07:25:00 >90 >=60 (mL/min) Final eGFR is calculated based on the CKD-EPI 2020 equation SODIUM 10/29/2022 07:25:00 135 135-146 (m mol/L) Final Potassium 10/29/2022 07:25:00 4.1 3.5-5.1 (m mol/L) Final Cl 10/29/2022 07:25:00 104 98-107 (mm ol/L) Final CO2 10/29/2022 07:25:00 23 22-32 (mmo l/L) Final Anion gap 10/29/2022 07:25:00 8 7-15 (mmol /L) Final Glucose 10/29/2022 07:25:00 246 Above high normal 70 -120 (mg/dL) Final Calcium 10/29/2022 07:25:00 8.2 Below low normal 8.4 -10.2 (mg/dL) Final Performing Location [facility] - [address] [place] [address]
--- OUTSIDE RECORDS SUMMARY | 2023-04-19 19:59 | External Medical Summary ---
Author Name Unknown Address Unknown Organization K1F:LABORATORY [facility] - [address] [place] [address] Laboratory Report Ordering Provider Test Date Status RACHNA RUIZ 10/29/2022 07:25:00 Final Observation Date Value Abnormality Reference (Units ) Status WBC, Total 10/29/2022 07:25:00 8.83 4.00-10.80 (K/uL) Final RBC 10/29/2022 07:25:00 3.04 4.50-5.25 (M/uL) Final Hemoglobin 10/29/2022 07:25:00 9.6 Below low normal 14.0-16.8 (g/dL) Final HCT 10/29/2022 07:25:00 29.9 Below low normal 40.0-48.4 (%) Final MCV 10/29/2022 07:25:00 98.4 82.0-99.5 (fL) Final MCH 10/29/2022 07:25:00 31.6 27.0-34.0 (pg) Final MCHC 10/29/2022 07:25:00 32.1 32.0-36.0 (g/dL) Final RDW 10/29/2022 07:25:00 13.9 11.5-15.5 (%) Final Platelets 10/29/2022 07:25:00 385 140-400 (K/uL) Final MPV 10/29/2022 07:25:00 9.0 6.6-11.1 (fL) Final Nucleated erythrocytes/100 leukocytes [Ratio] in Blood by Automated count 10/29/2022 07:25:00 0 <=0 (/100 WBCs) Final Performing Location LABORATORY [facility] - [address] [place] [address]
--- OUTSIDE RECORDS SUMMARY | 2023-04-19 19:59 | External Medical Summary ---
Author Name Unknown Address Unknown Organization : Laboratory Report Ordering Provider Test Date Status RACHNA RUIZ 10/29/2022 07:42:02 Final Observation Date Value Abnormality Reference (Units ) Status Glucose Point of Care 10/29/2022 07:42:02 218 Above high normal 70-120 (mg/dL) Final Performing Location
--- OUTSIDE RECORDS SUMMARY | 2023-04-19 19:59 | External Medical Summary ---
Author Name Unknown Address Unknown Organization : Laboratory Report Ordering Provider Test Date Status RACHNA RUIZ 10/28/2022 06:11:25 Final Observation Date Value Abnormality Reference (Units ) Status Glucose Point of Care 10/28/2022 06:11:25 94 70-120 (mg/dL) Final Performing Location
--- OUTSIDE RECORDS SUMMARY | 2023-04-19 19:59 | External Medical Summary ---
Author Name Unknown Address Unknown Organization K1F[facility] [address] [facility] [address] [place] [address] Laboratory Report Ordering Provider Test Date Status ESTER THOMSON 10/27/2022 17:47:04 Final Observation Date Value Abnormality Reference (Units ) Status BUN 10/27/2022 17:47:04 14 6-20 (mg/dL) Final Creatinine 10/27/2022 17:47:04 0.9 0.6-1.2 (mg/dL) Final Glomerular filtration rate/1.73 sq M.predicted [Volume Rate/Area] in Serum, Plasma or Blood by Creatinine-based formula (CKD-EPI) 10/27/2022 17:47:04 >90 >=60 (mL/min) Final eGFR is calculated based on the CKD-EPI 2020 equation SODIUM 10/27/2022 17:47:04 136 135-146 (m mol/L) Final Potassium 10/27/2022 17:47:04 3.5 3.5-5.1 (m mol/L) Final Cl 10/27/2022 17:47:04 98 98-107 (mm ol/L) Final CO2 10/27/2022 17:47:04 31 22-32 (mmo l/L) Final Anion gap 10/27/2022 17:47:04 7 7-15 (mmol /L) Final Glucose 10/27/2022 17:47:04 143 Above high normal 70 -120 (mg/dL) Final Albumin 10/27/2022 17:47:04 3.5 Below low normal 3.8 -5.0 (g/dL) Final AST (Aspartate aminotransferase) 10/27/2022 17:47:04 35 10-50 (U/L) Fin al Alk Phos 10/27/2022 17:47:04 110 35-130 (U/ L) Final Bilirubin, Total 10/27/2022 17:47:04 0.2 <=1 .2 (mg/dL) Final Calcium 10/27/2022 17:47:04 8.9 8.4-10.2 ( mg/dL) Final Protein 10/27/2022 17:47:04 7.6 6.0-8.3 (g /dL) Final ALT (Alanine aminotransferase) 10/27/2022 17:47:04 62 Above high normal 10-50 (U/L) Final Performing Location LABORATORY [facility] - [address] [place] [address]
--- OUTSIDE RECORDS SUMMARY | 2023-04-19 19:59 | External Medical Summary ---
Author Name Unknown Address Unknown Organization : Laboratory Report Ordering Provider Test Date Status RACHNA RUIZ 10/29/2022 21:14:42 Final Observation Date Value Abnormality Reference (Units ) Status Glucose Point of Care 10/29/2022 21:14:42 188 Above high normal 70-120 (mg/dL) Final Performing Location
--- OUTSIDE RECORDS SUMMARY | 2023-04-19 19:59 | External Medical Summary ---
Author Name Unknown Address Unknown Organization : Laboratory Report Ordering Provider Test Date Status RACHNA RUIZ 10/28/2022 00:57:10 Final Observation Date Value Abnormality Reference (Units ) Status Glucose Point of Care 10/28/2022 00:57:10 90 70-120 (mg/dL) Final Performing Location
--- OUTSIDE RECORDS SUMMARY | 2023-04-19 19:59 | External Medical Summary ---
Author Name Unknown Address Unknown Organization : Laboratory Report Ordering Provider Test Date Status RACHNA RUIZ 10/28/2022 03:31:30 Final Observation Date Value Abnormality Reference (Units ) Status Glucose Point of Care 10/28/2022 03:31:30 66 Below low normal 70-120 (mg/dL) Final Performing Location
--- OUTSIDE RECORDS SUMMARY | 2023-04-19 19:59 | External Medical Summary ---
Author Name Unknown Address Unknown Organization : Laboratory Report Ordering Provider Test Date Status CASTRO BRUNO 10/30/2022 09:01:57 Final Observation Date Value Abnormality Reference (Units ) Status Glucose Point of Care 10/30/2022 09:01:57 130 Above high normal 70-120 (mg/dL) Final Performing Location
--- OUTSIDE RECORDS SUMMARY | 2023-04-19 19:59 | External Medical Summary ---
Author Name Unknown Address Unknown Organization : Laboratory Report Ordering Provider Test Date Status RACHNA RUIZ 10/27/2022 21:07:46 Final Observation Date Value Abnormality Reference (Units ) Status Glucose Point of Care 10/27/2022 21:07:46 70 70-120 (mg/dL) Final Performing Location
--- OUTSIDE RECORDS SUMMARY | 2023-04-19 19:59 | External Medical Summary ---
Author Name Unknown Address Unknown Organization K1F:[facility] - [address] [place] [address] Laboratory Report Ordering Provider Test Date Status NICOLE CALDWELL 10/30/2022 04:09:00 Final Observation Date Value Abnormality Reference (Units ) Status BUN 10/30/2022 04:09:00 18 6-20 (mg/dL) Final Creatinine 10/30/2022 04:09:00 1.1 0.6-1.2 (mg/dL) Final Glomerular filtration rate/1.73 sq M.predicted [Volume Rate/Area] in Serum, Plasma or Blood by Creatinine-based formula (CKD-EPI) 10/30/2022 04:09:00 89 >=60 (mL/min) Final eGFR is calculated based on the CKD-EPI 2020 equation SODIUM 10/30/2022 04:09:00 143 135-146 (m mol/L) Final Potassium 10/30/2022 04:09:00 3.5 3.5-5.1 (m mol/L) Final Cl 10/30/2022 04:09:00 112 Above high normal 98 -107 (mmol/L) Final CO2 10/30/2022 04:09:00 28 22-32 (mmo l/L) Final Anion gap 10/30/2022 04:09:00 3 Below low normal 7-1 5 (mmol/L) Final Glucose 10/30/2022 04:09:00 79 70-120 (mg /dL) Final Calcium 10/30/2022 04:09:00 7.5 Below low normal 8.4 -10.2 (mg/dL) Final Performing Location [facility] - [address] [place] [address]
--- OUTSIDE RECORDS SUMMARY | 2023-04-19 19:59 | External Medical Summary ---
Author Name Unknown Address Unknown Organization K1F:[facility] [address] [facility] [place] [address] Laboratory Report Ordering Provider Test Date Status ESTER THOMSON 10/27/2022 17:47:04 Final Observation Date Value Abnormality Reference (Units ) Status SYNC LEUKOCYTES IN BLOOD BY AUTOMATED COUNT 10/27/2022 17:47:04 12.22 Above high normal 4.00-10.80 (K/uL) Final Segs 10/27/2022 17:47:04 62.3 40.0-75.0 (%) Final Lymphs % 10/27/2022 17:47:04 31.3 18.0-42.0 (%) Final Monos 10/27/2022 17:47:04 5.0 1.0-11.0 (%) Final Eosinophils 10/27/2022 17:47:04 0.6 0.0-6.0 (%) Final Basos 10/27/2022 17:47:04 0.5 0.0-2.0 (%) Final Immature Granulocyte, Percent 10/27/2022 17:47:04 0.3 0.0-2.0 (%) Final Absolute Segs 10/27/2022 17:47:04 7.61 1.80-7.70 (K/uL) Final Lymphs, absolute 10/27/2022 17:47:04 3.83 1.00-4.80 (K/ul) Final Monos, Abs 10/27/2022 17:47:04 0.61 0.00-1.10 (K/uL) Final Eos, Abs 10/27/2022 17:47:04 0.07 0.00-0.70 (K/uL) Final Basos, Abs 10/27/2022 17:47:04 0.06 0.00-0.20 (K/uL) Final Immature Granulocytes, Number 10/27/2022 17:47:04 0.04 0.00-0.20 (K/uL) Final Performing Location LABORATORY [facility] - [address] [place] [address]
--- OUTSIDE RECORDS SUMMARY | 2023-04-19 19:59 | External Medical Summary ---
Author Name Unknown Address Unknown Organization : Laboratory Report Ordering Provider Test Date Status RACHNA RUIZ 10/28/2022 07:58:57 Final Observation Date Value Abnormality Reference (Units ) Status Glucose Point of Care 10/28/2022 07:58:57 66 Below low normal 70-120 (mg/dL) Final Performing Location
--- OUTSIDE RECORDS SUMMARY | 2023-04-19 19:59 | External Medical Summary ---
Author Name Unknown Address Unknown Organization K01:[facility] [place] [address] [facility] [address] Laboratory Report Ordering Provider Test Date Status ESTER THOMSON 10/27/2022 17:55:13 Final Multiple other species of ae robic and/or anaerobic bacteria.
No further workup routinely performed Observation Date Value Abnormality Reference (Units ) Status Bacteria identified in Specimen by Culture 10/27/2022 17:55:13 [id number]^STAPHY LOCOCCUS AUREUS MRSA Abnormal Final Moderate Staphylococcus caitlin us MRSA, This patient may require isolation. Bacteria identified in Specimen by Culture 10/27/2022 17:55:13 [id number]^BACTEROIDES FRAGILI S GROUP Abnormal Final Moderate Bacteroides fragili s group Bacteria identified in Specimen by Culture 10/27/2022 17:55:13 [id number]^BETA STREPTOCOCCUS GROUP A Abnormal Final Moderate Beta Streptococcus group A Gram Stain 10/27/2022 17:55:13 No polymorphonuclear leukocyt es seen Final Gram Stain 10/27/2022 17:55:13 Many Gram positive cocci Final Gram Stain 10/27/2022 17:55:13 Many Gram positive bacilli Final Performing Location [facility] [place] [facility] [address] [facility] [address] Ordering Provider Test Date Status ESTER THOMSON 10/27/2022 17:55:13 Final Observation Date Value Abnormality Reference (Units ) Status Clindamycin 10/27/2022 17:55:13 <=0.25 Susceptible Final Erythromycin susceptibility 10/27/2022 17:55:13 >=8 Resistant Final Oxacillinsusceptibility 10/27/2022 17:55:13 >=4 Resistant Final Oxacillin/Methicillin resist ant Staphylococci are considered clinically resistant to all Beta-lactam (Penicillin and Cephalosporin) antibiotics. Quinolone antibiotics should also not be used for Staphylococci that are Oxacillin resistant. Penicillin susceptibility 10/27/2022 17:55:13 >=0.5 Resi stant Final Tetracyclinesusceptibility 10/27/2022 17:55:13 >=16 Res istant Final TMP-SMZ susceptibility 10/27/2022 17:55:13 <=10 Suscept ible Final Vancomycinsusceptibility 10/27/2022 17:55:13 <=0.5 Susce ptible Final Test: Culture, Wound, Deep, Aerobic and Anaerobic
Specimen Source: Finger, Right
Specimen Type: Deep Wound
Specimen Date: 10/27/2022 5:55 PM
Result Date: 11/01/2022 1:49 PM
Result Status: Final result
Abnormal: Yes
Resulting Lab: [facility] [place]
[address]
[place] [address]

CULTURE

Moderate Staphylococcus aureus MRSA, This patient may require isolation.
(Abnormal)

Moderate Bacteroides fragilis group (Abnormal)

Moderate Beta Streptococcus group A (Abnormal)

Multiple other species of aerobic and/or anaerobic bacteria. No further
workup routinely performed

STAIN

No polymorphonuclear leukocytes seen

Many Gram positive cocci

Many Gram positive bacilli

SUSCEPTIBILITY

Staphylococcus aureus
MRSA, This patient
may require
isolation.
METHOD MICROBROTH DILUTIONS

CLINDAMYCIN <=0.25 Susceptible
ERYTHROMYCIN >=8 Resistant
OXACILLIN >=4 Resistant [1]
PENICILLIN G >=0.5 Resistant
TETRACYCLINE >=16 Resistant
TRIMETH/SULFAMETHOXAZOLE <=10 Susceptible
VANCOMYCIN <=0.5 Susceptible

[1] Oxacillin/Methicillin resistant Staphylococci are considered clinically
resistant to all Beta-lactam (Penicillin and Cephalosporin) antibiotics.
Quinolone antibiotics should also not be used for Staphylococci that are
Oxacillin resistant.

null Performing Location [facility] [place] [address] [facility] [address]
--- OUTSIDE RECORDS SUMMARY | 2023-04-19 19:59 | External Medical Summary ---
Author Name Unknown Address Unknown Organization : Laboratory Report Ordering Provider Test Date Status CASTRO BRUNO 10/30/2022 17:01:59 Final Observation Date Value Abnormality Reference (Units ) Status Glucose Point of Care 10/30/2022 17:01:59 162 Above high normal 70-120 (mg/dL) Final Performing Location
--- OUTSIDE RECORDS SUMMARY | 2023-04-19 19:59 | External Medical Summary ---
Author Name Unknown Address Unknown Organization : Laboratory Report Ordering Provider Test Date Status RACHNA RUIZ 10/29/2022 16:10:08 Final Observation Date Value Abnormality Reference (Units ) Status Glucose Point of Care 10/29/2022 16:10:08 131 Above high normal 70-120 (mg/dL) Final Performing Location
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
--- OUTSIDE RECORDS SUMMARY | 2023-04-19 19:59 | External Medical Summary ---
Author Name Unknown Address Unknown Organization K1F:LABORATORY [facility] - [address] [place] [address] Laboratory Report Ordering Provider Test Date Status RACHNA RUIZ 10/29/2022 07:25:00 Final Observation Date Value Abnormality Reference (Units ) Status Calcium.ionized [Moles/volume] in Serum or Plasma by Ion-selective membrane electrode (ISE) 10/29/2022 07:25:00 1.14 1.13-1.32 (mmol/L) Final This test was developed and its performance characteristics dtermined by [employer] It has not been cleared or approved by the US Food and Drug Administration Performing Location LABORATORY [facility] - [address] [place] [address]
--- OUTSIDE RECORDS SUMMARY | 2023-04-19 19:59 | External Medical Summary ---
Author Name Unknown Address Unknown Organization : Laboratory Report Ordering Provider Test Date Status RACHNA RUIZ 10/28/2022 08:36:07 Final Observation Date Value Abnormality Reference (Units ) Status Glucose Point of Care 10/28/2022 08:36:07 60 Below low normal 70-120 (mg/dL) Final Performing Location
--- OUTSIDE RECORDS SUMMARY | 2023-04-19 19:59 | External Medical Summary ---
Author Name Unknown Address Unknown Organization K1F:[facility] - [address] [facility] [place] [address] Laboratory Report Ordering Provider Test Date Status ESTER THOMSON 10/27/2022 17:47:04 Final Observation Date Value Abnormality Reference (Units ) Status Body temperature 10/27/2022 17:47:04 37.0 (C) Final pH of Venous blood 10/27/2022 17:47:04 7.320 7.320-7.430 (units) Final Carbon dioxide [Partial pressure] in Venous blood 10/27/2022 17:47:04 63.7 Above high normal 40.0-60.0 (mmHg) Final Oxygen [Partial pressure] in Venous blood 10/27/2022 17:47:04 22.6 Below low normal 25.0-50.0 (mmHg) Final Base excess, Capillary 10/27/2022 17:47:04 4.9 Above high normal -2.0-2.0 (mmol/L) Final Hemoglobin [Mass/volume] in Blood by Oximetry 10/27/2022 17:47:04 11.0 Below low normal 14.0-16.8 (g/dL) Final Oxyhemoglobin, Venous (FO2HB) 10/27/2022 17:47:04 38.9 Below low normal 40.0-85.0 (% total Hgb) Final Carboxyhemoglobin 10/27/2022 17:47:04 3.8 Above high normal <=1.5 (% total Hgb) Final Smokers: 0-9.0 % Methemoglobin 10/27/2022 17:47:04 1.2 <= 1.5 (% total Hgb) Final Deoxyhemoglobin/Hemoglo bin.total in Venous blood 10/27/2022 17:47:04 56.1 (% total Hgb) Final Oxygen content in Venous blood 10/27/2022 17:47:04 6.0 Below low normal 7.0-18.0 (%vol) F inal Bicarbonate, Venous, POC (i-STAT) 10/27/2022 17:47:04 31.9 Above high normal 23.0-31.0 (mmol/L) Final Performing Location LABORATORY [facility] - [address] [place] [address]
--- OUTSIDE RECORDS SUMMARY | 2023-04-19 19:59 | External Medical Summary ---
Author Name Unknown Address Unknown Organization K1F:[facility] - [address] [place] [address] Laboratory Report Ordering Provider Test Date Status MARILYN CASANOVA 10/28/2022 07:59:00 Final Observation Date Value Abnormality Reference (Units ) Status Magnesium 10/28/2022 07:59:00 1.8 1.5-2.6 (m g/dL) Final Performing Location LAB[facility]AT[facility] - [address] [place] [address]
--- OUTSIDE RECORDS SUMMARY | 2023-04-19 19:59 | External Medical Summary ---
Author Name Unknown Address Unknown Organization K1F:[facility] - [address] [place] [address] Laboratory Report Ordering Provider Test Date Status MARILYN CASANOVA 10/28/2022 07:59:00 Final Observation Date Value Abnormality Reference (Units ) Status BUN 10/28/2022 07:59:00 12 6-20 (mg/dL) Final Creatinine 10/28/2022 07:59:00 0.8 0.6-1.2 (mg/dL) Final Glomerular filtration rate/1.73 sq M.predicted [Volume Rate/Area] in Serum, Plasma or Blood by Creatinine-based formula (CKD-EPI) 10/28/2022 07:59:00 >90 >=60 (mL/min) Final eGFR is calculated based on the CKD-EPI 2020 equation SODIUM 10/28/2022 07:59:00 140 135-146 (m mol/L) Final Potassium 10/28/2022 07:59:00 3.3 Below low normal 3.5 -5.1 (mmol/L) Final Cl 10/28/2022 07:59:00 106 98-107 (mm ol/L) Final CO2 10/28/2022 07:59:00 30 22-32 (mmo l/L) Final Anion gap 10/28/2022 07:59:00 4 Below low normal 7-1 5 (mmol/L) Final Glucose 10/28/2022 07:59:00 68 Below low normal 70- 120 (mg/dL) Final Calcium 10/28/2022 07:59:00 7.9 Below low normal 8.4 -10.2 (mg/dL) Final Performing Location LAB[facility] - [address] [place] [address]
--- OUTSIDE RECORDS SUMMARY | 2023-04-19 19:59 | External Medical Summary ---
Author Name Unknown Address Unknown Organization K1F:LABORATORY [facility] - [address] [place] [address] Laboratory Report Ordering Provider Test Date Status JOSE ALFREDO CALDWELLDADA 10/30/2022 04:09:00 Final Observation Date Value Abnormality Reference (Units ) Status WBC, Total 10/30/2022 04:09:00 7.68 4.00-10.80 (K/uL) Final RBC 10/30/2022 04:09:00 2.60 4.50-5.25 (M/uL) Final Hemoglobin 10/30/2022 04:09:00 8.4 Below low normal 14.0-16.8 (g/dL) Final HCT 10/30/2022 04:09:00 26.0 Below low normal 40.0-48.4 (%) Final MCV 10/30/2022 04:09:00 100.0 82.0-99.5 (fL) Final MCH 10/30/2022 04:09:00 32.3 27.0-34.0 (pg) Final MCHC 10/30/2022 04:09:00 32.3 32.0-36.0 (g/dL) Final RDW 10/30/2022 04:09:00 14.2 11.5-15.5 (%) Final Platelets 10/30/2022 04:09:00 308 140-400 (K/uL) Final MPV 10/30/2022 04:09:00 8.2 6.6-11.1 (fL) Final Nucleated erythrocytes/100 leukocytes [Ratio] in Blood by Automated count 10/30/2022 04:09:00 0 <=0 (/100 WBCs) Final Performing Location LAB[facility]ATORY [facility] - [address] [place] [address]
--- OUTSIDE RECORDS SUMMARY | 2023-04-19 19:59 | External Medical Summary ---
Author Name Unknown Address Unknown Organization K1F:LABORATORY [facility] - [address] [place] [address] Laboratory Report Ordering Provider Test Date Status ESTER THOMSON 10/27/2022 17:47:04 Final Observation Date Value Abnormality Reference (Units ) Status WBC, Total 10/27/2022 17:47:04 12.22 Above high normal 4.00-10.80 (K/uL) Final RBC 10/27/2022 17:47:04 3.33 4.50-5.25 (M/uL) Final Hemoglobin 10/27/2022 17:47:04 10.8 Below low normal 14.0-16.8 (g/dL) Final HCT 10/27/2022 17:47:04 31.6 Below low normal 40.0-48.4 (%) Final MCV 10/27/2022 17:47:04 94.9 82.0-99.5 (fL) Final MCH 10/27/2022 17:47:04 32.4 27.0-34.0 (pg) Final MCHC 10/27/2022 17:47:04 34.2 32.0-36.0 (g/dL) Final RDW 10/27/2022 17:47:04 13.5 11.5-15.5 (%) Final Platelets 10/27/2022 17:47:04 428 Above high normal 140-400 (K/uL) Final MPV 10/27/2022 17:47:04 8.4 6.6-11.1 (fL) Final Nucleated erythrocytes/100 leukocytes [Ratio] in Blood by Automated count 10/27/2022 17:47:04 0 <=0 (/100 WBCs) Final Performing Location LABORATORY [facility] - [address] [place] [address]
--- OUTSIDE RECORDS SUMMARY | 2023-04-19 19:59 | External Medical Summary ---
Author Name Unknown Address Unknown Organization K1F:LABORATORY [facility] - [address] [place] [address] Laboratory Report Ordering Provider Test Date Status RACHNA RUIZ 10/30/2022 04:09:00 Final Observation Date Value Abnormality Reference (Units ) Status Calcium.ionized [Moles/volume] in Serum or Plasma by Ion-selective membrane electrode (ISE) 10/30/2022 04:09:00 1.19 1.13-1.32 (mmol/L) Final This test was developed and its performance characteristics dtermined by [employer]. It has not been cleared or approved by the [place] Food and Drug Administration Performing Location LABORATORY [facility] - [address] [facility] [address]
--- OUTSIDE RECORDS SUMMARY | 2023-04-19 19:59 | External Medical Summary ---
Author Name Unknown Address Unknown Organization : Laboratory Report Ordering Provider Test Date Status RACHNA RUIZ 10/28/2022 16:37:05 Final Observation Date Value Abnormality Reference (Units ) Status Glucose Point of Care 10/28/2022 16:37:05 142 Above high normal 70-120 (mg/dL) Final Performing Location
--- OUTSIDE RECORDS SUMMARY | 2023-04-19 19:59 | External Medical Summary ---
Author Name Unknown Address Unknown Organization K1F:LABORATORY [facility] - [address] [place] [address] Laboratory Report Ordering Provider Test Date Status ESTER THOMSON 10/27/2022 17:47:04 Final Less than 0.5 ng/mL: Low ris [...] [Mass/volume] in Serum or Plasma by Immunoassay 10/27/2022 17:47:04 0.06 <0.10 (ng/mL) Final Performing Location LABORATORY [facility] - [address] [place] [address]
--- OUTSIDE RECORDS SUMMARY | 2023-04-19 19:59 | External Medical Summary ---
Author Name Unknown Address Unknown Organization : Laboratory Report Ordering Provider Test Date Status RACHNA RUIZ 10/28/2022 00:02:47 Final Observation Date Value Abnormality Reference (Units ) Status Glucose Point of Care 10/28/2022 00:02:47 72 70-120 (mg/dL) Final Performing Location
--- OUTSIDE RECORDS SUMMARY | 2023-04-19 19:59 | External Medical Summary ---
Author Name Unknown Address Unknown Organization K1F:LABORATORY [facility] - [address] [place] [address] Laboratory Report Ordering Provider Test Date Status ESTER THOMSON 10/28/2022 03:53:02 Final Observation Date Value Abnormality Reference (Units ) Status Color of Urine by Auto 10/28/2022 03:53:02 Yellow Light Yellow, Yellow, Dark Yellow Final Clarity, Urine 10/28/2022 03:53:02 Clear Clear Final Glucose [Mass/volume] in Urine by Automated test strip 10/28/2022 03:53:02 100 Abnormal Negative (mg/dL) Final Bilirubin.total [Presence] in Urine by Automated test strip 10/28/2022 03:53:02 Negative Negative Final Ketones [Mass/volume] in Urine by Automated test strip 10/28/2022 03:53:02 Negative Negative (mg/dL) Final Specific gravity, Urine 10/28/2022 03:53:02 1.010 1.003-1.030 Final Hemoglobin [Presence] in Urine by Automated test strip 10/28/2022 03:53:02 Large Abnormal Negative Final pH, Urine 10/28/2022 03:53:02 7.0 5.0-7.5 (Units) Final Protein [Mass/volume] in Urine by Automated test strip 10/28/2022 03:53:02 >=300 Abnormal Negative (mg/dL) Final Urobilinogen [Mass/volume] in Urine by Automated test strip 10/28/2022 03:53:02 0.2 0.2, 1.0 (mg/dL) Final Nitrite [Presence] in Urine by Automated test strip 10/28/2022 03:53:02 Positive Abnormal Negative Final Leukocyte esterase [Presence] in Urine by Automated test strip 10/28/2022 03:53:02 Large Abnormal Negative Final Performing Location LABORATORY [facility] - [address] [place] [address]
--- OUTSIDE RECORDS SUMMARY | 2023-04-19 19:59 | External Medical Summary ---
Author Name Unknown Address Unknown Organization K1F:LABORATORY [facility] - [address] [place] [address] Laboratory Report Ordering Provider Test Date Status RACHNA RUIZ 10/27/2022 17:47:04 Final Observation Date Value Abnormality Reference (Units ) Status T4, Free 10/27/2022 17:47:04 0.4 Below low normal 0.9 -1.7 (ng/dL) Final Performing Location LABORATORY [facility] - [address] [place] [address]
--- OUTSIDE RECORDS SUMMARY | 2023-04-19 19:59 | External Medical Summary ---
Author Name Unknown Address Unknown Organization K1F:LABORATORY [facility] - [address] [place] [address] Laboratory Report Ordering Provider Test Date Status NICOLE CALDWELL 10/30/2022 04:09:00 Final Observation Date Value Abnormality Reference (Units ) Status ABO 10/30/2022 04:09:00 A Final RH 10/30/2022 04:09:00 Positive Final RED BLOOD CELL ANTIBODY SCREEN 10/30/2022 04:09:00 Negative Final SPECIMEN EXPIRATION DATE 10/30/2022 04:09:00 11/02/2022 23:59 Final Performing Location LABORATORY [facility] - [address] [place] [address]
--- OUTSIDE RECORDS SUMMARY | 2023-04-19 19:59 | External Medical Summary ---
Author Name Unknown Address Unknown Organization : Laboratory Report Ordering Provider Test Date Status CASTRO BRUNO 10/30/2022 07:46:25 Final Observation Date Value Abnormality Reference (Units ) Status Glucose Point of Care 10/30/2022 07:46:25 56 Below low normal 70-120 (mg/dL) Final Performing Location
--- OUTSIDE RECORDS SUMMARY | 2023-04-19 19:59 | External Medical Summary ---
Author Name Unknown Address Unknown Organization K1F:LABORATORY [facility] - [address] [place] [address] Laboratory Report Ordering Provider Test Date Status ESTER THOMSON 10/27/2022 17:47:04 Final Anticoagulation may affect t esting. Refer to [employer] Test Catalog for a list of effects. Observation Date Value Abnormality Reference (Units ) Status aPTT panel - Platelet poor plasma 10/27/2022 17:47:04 30 21-38 (seconds) Final Performing Location LABORATORY [facility] - [address] [place] [address]
--- OUTSIDE RECORDS SUMMARY | 2023-04-19 19:59 | External Medical Summary ---
Author Name Unknown Address Unknown Organization K1F:LABORATORY [facility] - [address] [place] [address] Laboratory Report Ordering Provider Test Date Status MARILYN CASANOVA 10/29/2022 07:25:00 Final Observation Date Value Abnormality Reference (Units ) Status Vancomycin, level 10/29/2022 07:25:00 25.6 10 .0-40.0 (ug/mL) Final Performing Location LABORATORY [facility] - [address] [place] [address]
--- OUTSIDE RECORDS SUMMARY | 2023-04-19 19:59 | External Medical Summary ---
Author Name Unknown Address Unknown Organization [id number]:[facility]AT[facility] - [address] [place] [address] Laboratory Report Ordering Provider Test Date Status RACHNA RUIZ 10/27/2022 17:47:04 Final Observation Date Value Abnormality Reference (Units ) Status TSH 10/27/2022 17:47:04 >100.00 Above high normal 0. 27-4.20 (uIU/mL) Final Performing Location LAB[facility]AT[facility] - [address] [place] [id number]
--- OUTSIDE RECORDS SUMMARY | 2023-04-19 19:59 | External Medical Summary ---
Author Name Unknown Address Unknown Organization : Laboratory Report Ordering Provider Test Date Status ESTER THOMSON 10/27/2022 17:37:39 Final Observation Date Value Abnormality Reference (Units ) Status Glucose Point of Care 10/27/2022 17:37:39 143 Above high normal 70-120 (mg/dL) Final Performing Location
--- OUTSIDE RECORDS SUMMARY | 2023-04-19 19:59 | External Medical Summary ---
Author Name Unknown Address Unknown Organization : Laboratory Report Ordering Provider Test Date Status RACHNA RUIZ 10/28/2022 22:11:30 Final Observation Date Value Abnormality Reference (Units ) Status Glucose Point of Care 10/28/2022 22:11:30 297 Above high normal 70-120 (mg/dL) Final Performing Location
--- OUTSIDE RECORDS SUMMARY | 2023-04-19 19:59 | External Medical Summary ---
Author Name Unknown Address Unknown Organization : Laboratory Report Ordering Provider Test Date Status CASTRO BRUNO 10/30/2022 07:48:52 Final Observation Date Value Abnormality Reference (Units ) Status Glucose Point of Care 10/30/2022 07:48:52 44 Below lower panic limits 70-120 (mg/dL) Final Performing Location
[2023-04-19] MEDS: HEPARIN SOD 5,000 UNIT/0.5 ML VIAL SQ SCH (21:23)
[2023-04-20] MEDS: LEVOTHYROXINE SODIUM 88 MCG TABLET PO SCH (05:52)
[2023-04-20 06:35] LABS: Hematocrit (blood only) 33.9 % (42.0-52.0); Hemoglobin 11.4 g/dl (14.0-18.0); Mean Corpuscular Hemoglobin 31.1 pg (25.0-34.0); Mean Corpuscular Hgb Conc 33.6 g/dL (32.0-36.0); Mean Corpuscular Volume 92.4 fL (80.0-100.0); Mean Platelet Volume 9.9 fL (9.4-12.4); Platelet Count 302 K/uL (130-400); RDW Coefficient of Variation 13.2 % (11.5-14.5); RDW Standard Deviation 45.1 fL (36.4-46.3); Red Blood Count 3.67 M/uL (4.70-6.10); White Blood Count 6.32 K/ul (4.8-10.8)
[2023-04-20 07:11] LABS: Calcium 8.9 mg/dl (8.6-10.3); Creatinine Clr Calc Pharmacy 80.6 ml/min; Est GFR (African American) 126.9 ml/min; Est GFR (Non-African American) 109.5 ml/min; Potassium 3.8 mmol/L (3.5-5.1)
[2023-04-20] MEDS: DOCUSATE SODIUM 100 MG CAP PO SCH (07:29)
[2023-04-20] MEDS: CARBOHYDRATES FOR HYPOGLYCEMIA PO PRN (07:31)
[2023-04-20] MEDS: GLUCOSE 40% GEL 15 GM TUBE PO PRN (07:31)
[2023-04-20 07:39] LABS: Estimated Average Glucose 260 mg/dl; Hemoglobin A1C 10.7 % (4.5-5.6)
--- NOTE | 2023-04-20 09:41 | Urology Consultation ---
Date of Consultation April 20, 2023 Assessment & Plan (1) Acute urinary retention: 38 yo/M admitted for altered mental status, hyperglycemia, acute urinary retention. Urology is consulted for urinary retention Urinary retention likely multifactorial due to altered mental status, drug use, possible constipation Urinalysis on arrival was not suspicious for infection; showed trace protein, 3+ glucose, trace ketones otherwise negative Labs shownormal renal function, no leukocytosis CT A/P showed markedly distended bladder with mild bilateral hydronephrosis Recommend maintain catheter for 7 to 10 days for maximum drainage Recommend bowel regimen Will arrange outpatient follow-up with our service for voiding trial will sign off, contact our service with any additional questions or concerns History of Present Illness Attending Physician: Lan Gamboa MD History of Present Illness This is a 38-year-old male with past medical history of poorly controlled type 1 diabetes, bipolar disorder, opioid use disorder now on methadone, methamphetamine abuse, tobacco use who was referred to the emergency department on 04/19/2023 by his methadone clinic for evaluation of altered mental status. He was afebrile and hemodynamically stable on arrival. Labs showed creatinine 1.27, sodium of 131, glucose 329, hemoglobin 12.2, no leukocytosis. Urinalysis showed trace protein, 3+ glucose, trace ketones, otherwise negative. His urine drug screen was positive for methadone, amphetamine and MDMA. During workup in the emergency department, he was found to have urinary retention. A Rasheed catheter was placed. Urology is consulted for urinary retention. Patient seen and examined at bedside. He is awake and sitting up in bed. Denies abdominal or flank pain. He is tolerating catheter without issue. Rasheed is patent and draining clear urine. Denies bothersome urinary symptoms at baseline. Denies dysuria or hematuria. Denies nausea, vomiting, fever or chills. Denies constipation. Allergies Allergy/AdvReac Type Severity Reaction Status Date / Time No Known Allergies Allergy Unverified 04/19/23 11:05 Home Medications Medication Instructions Recorded Confirmed Type Methadone 114 mg PO DAILY 04/19/23 04/19/23 History insulin aspart U-100 100 unit/mL 0 - 12 unit subcut QID 04/19/23 04/19/23 History subcutaneous solution (Novolog U-100 Insulin aspart) insulin glargine 100 unit/mL (3 18 unit subcut PM 04/19/23 04/19/23 History mL) subcutaneous pen (Lantus Solostar U-100 Insulin) levothyroxine 88 mcg tablet 88 mcg PO DAILY 04/19/23 04/19/23 History Patient History Medical History Opioid use disorder Bipolar disorder Tobacco use disorder Non compliance w medication regimen Hypothyroidism Diabetes type I No significant past medical history Surgical History No pertinent past surgical history Family History Other Alcohol dependence with other alcohol-induced disorder Mood disorder Social History Smoking Status: Current every day smoker Tobacco Type: Cigarettes packs per day: 0.5; Hx Alcohol Use: No Hx Substance Use: Yes Non-Prescribed Medications: Methamphetamines Last Used Substance: Days (ago) Preferred Language: Tristanian [employer]sole [employer] Outsole Preparer Required: No Beliefs That Will Affect Care: None Current Living Situation: Homeless Current Living Situation Comment: homeless senior living Other Information That Helps Us Care for You: No Feels Safe at Home: Yes Safety Concerns: Feels Safe At This Time Assistive Devices: Cane Review of Systems Review of Systems: All systems reviewed & are unremarkable except as noted in HPI & below Physical Exam 2 Constitutional: + thin; no acute distress Respiratory: normal respiratory effort; no respiratory distress and no labored breathing Gastrointestinal (Abdomen): Inspection/Auscultation: abdomen normal to inspection Musculoskeletal: Head/Neck/Chest: normocephalic Neurologic: moves all extremities and awake Psychiatric: Orientation: alert and oriented x 3 Genitourinary: Rasheed patent and draining clear yellow urine Results & Data Vital Signs (Past 12 Hours) Vital Signs Temp Pulse Resp BP Pulse Ox O2 Del Method 04/20/23 08:41 36.3 C L 77 18 112/76 98 Room Air 04/20/23 03:33 36.7 C 67 18 133/80 96 Room Air 04/19/23 22:41 37.2 C 90 20 108/69 100 Room Air PG Care Time/CCT Total # of Minutes Spent Total Time Spent with Patient: Total time spent is greater than 50% in coordination of care (as documented) at patient's floor/unit and/or counseling patient: Coding Level of Care Code 65185 IN/OBS CONSULT LVL 4,60M Diagnoses Acute urinary retention R33.8
--- NOTE | 2023-04-20 10:42 | Pharmacy Report ---
Pharmacy Glycemic Short Note 2 - Date of Service April 20, 2023 - Glycemic Short BSG Results (Last 24 hours): 04/19/23 04/19/23 04/19/23 11:49 16:35 17:50 Glucose POC Glucose 273 H 191 H 218 H 04/19/23 04/20/23 04/20/23 19:49 05:38 07:22 Glucose 54 L POC Glucose 123 H 58 L* 04/20/23 08:01 Glucose POC Glucose 202 H OUTPATIENT ANTIDIABETIC REGIMEN: * Lantus 18 units SQ QPM * Novolog 0-12 units QID * HbA1c 10.7% (04/20/23), 11.3% (01/08) ASSESSMENT: * Gil is a 38 YOM admitted for altered mental status and a history of type 1 diabetes mellitus. Pharmacy has been consulted to assist with glycemic management while inpatient. * Hypoglycemia this AM, potentially caused by Lantus?, reported poor compliance to home regimen by provider. BSGs improved with breakfast. Will order 0.1 units/kg of basal insulin at bedtime, and allow for up to 0.2 unit/kg if BSGs elevated. * Novolog initiated at a weight based stress of 3, will loosen to a weight based stress of 2 for now due to hypoglycemia. PLAN FOR INPATIENT GLYCEMIC CONTROL: * Hold outpatient oral diabetes medications * Basal insulin * Lantus 5-10 units SQ HS (see eMAR for additional details) * Bolus insulin * NovoLog per scale ACHS or Q6hrs while NPO * Goal Range: Low 110 mg/dL - High 140 mg/dL * Correction Factor: 45 mg/dL/unit * Nutritional / Prandial insulin per carb ratio of 1 unit per 15 grams CHO consumed
[2023-04-20] MEDS ORDERED: METHADONE PO SCH (10:45)
[2023-04-20] MEDS: METHADONE PO SCH (11:28)
[2023-04-20] MEDS: METHADONE ORAL SOLN 2 MG/ML PO SCH (11:28)
--- NOTE | 2023-04-20 15:51 | Hospitalist Progress Note ---
Date of Service April 20, 2023 Assessment & Plan (1) AMS (altered mental status): Plan: This is a 38 yo M with a PMH of poorly controlled type 1 diabetes, hypothyroidism, mood disorder, history of opioid use disorder now on methadone, methamphetamine abuse, tobacco use and other medical problems listed below who was sent over from a methadone clinic in [place] with altered mental status. Acute toxic metabolic encephalopathy-cleared Developed AMS while at methadone clinic after dose, sent to [facility] ED CT head No acute intracranial hemorrhage, no evidence of acute territorial infarction or other acute intracranial disease process VSS, no leukocytosis, initial glucose 329, no anion gap Endorses smoking meth 5 days ago, UDS positive for methadone, meth and ecstasy/mdma Initially concerned for possible serotonin syndrome but not taking his sert raline or Seroquel on his outpatient med list - only taking insulin somewhat regularly Lethargic but awakens and answers questions appropriately, A&Ox3 Afebrile, no tremulousness, no focal neuro deficit Continue gentle fluids, blood cultures pending, monitor on tele, reassess resuming methadone in AM based on mentation Remains stable without any acute symptoms and/or confusion and he wants to be discharged Will get PT and OT evaluation prior to discharge Methadone has been restarted (2) Methamphetamine use: (3) Methadone use: (4) Diabetes type I: Plan: A1c 11.3 in Jan 2023, repeat a1c tomorrow AM Hold home agents SSI while in-patient Glycemic consult placed given poor compliance BSG AC HS (5) Abnormal results of thyroid function studies: (6) Hypothyroidism: Plan: TSH 150, free T4 0.52 Last took levothyroxine 1 week ago and since ran out Outpatient TFTs consistently abnormal in setting of noncompliance Given missed home dose, continue Follow up with PCP for repeat TFTs (7) Acute urinary retention: Plan: Denies history of urinary retention CT abd/pelvis with severely distended bladder with mild bladder wall thickening. This could be due to chronic outlet obstruction and/or an associated cystitis. Bansal catheterization recommended for decompression. In addition, a urinalysis is suggested to assess for a cystitis. Mild bilateral hydronephrosis which is likely due to the severely distended bladder. Abdominal fullness resolved since bansal placed Routine urology consult given urinary retention UA without evidence of UTI Appreciate urology input and recommendation to keep the Bansal until he has been seen as an outpatient during follow-up (8) Bipolar disorder: Plan: Not currently on any psych medications (9) Tobacco use disorder: Plan: Smoking cessation recommended. Declined offer for nicotine patch (10) Underweight: Plan: Underweight with BMI of 18 Nutrition assessment, likely protein calorie malnutrition (11) Non compliance w medication regimen: Plan: DVT Ppx: SQ heparin Code status: FULL PCP: [facility] Dispo: admitted to pcu Likely discharge tomorrow Admission and Anticipated Discharge Date Admission Date: April 19, 2023 Subjective 04/20/2023 Patient was seen and examined in telemetry unit He was sent to ER from a methadone clinic in [place] with altered mental status Change in mental status almost resolved in the emergency room and admitted to have methamphetamine and use of methadone Clinically much better this morning without any symptoms Review of Systems Review of Systems: All systems reviewed and are unremarkable except as noted below Physical Exam Physical Exam: Lying in bed comfortably Constitutional: well developed, well nourished and + thin; not ill appearing Eyes: PERRL, conjunctivae normal, anicteric sclerae ENMT: external ear and nose normal, oropharynx normal Neck: trachea midline, no thyromegaly Respiratory: no respiratory distress Auscultation: lungs clear to auscultation bilaterally Cardiovascular: Rate/Rhythm: regular rate and regular rhythm; not tachycardic Heart Sounds: normal S1 and normal S2; no murmur Extremities: no edema Gastrointestinal (Abdomen): Inspection/Auscultation: normal bowel sounds; abdomen not distended Percussion/Palpation: abdomen nontender Musculoskeletal: No acute arthritis involving any of the joint Neurologic: normal touch/pain/proprioception and moves all extremities; no focal motor deficits and not confused Lymphatic: no cervical or axillary lymphadenopathy Results & Data Results & Data Vital Signs (Past 12 Hours) Vital Signs Temp Pulse Pulse Resp BP Pulse Ox O2 Del Method 04/20/23 15:07 36.4 C L 62 16 101/67 96 Room Air 04/20/23 14:10 Room Air 04/20/23 11:50 36.5 C 78 18 112/68 94 Room Air 04/20/23 08:41 36.3 C L 77 18 112/76 98 Room Air Laboratory Results Short CBC 04/20/23 Range/Units 05:38 WBC 6.32 (4.8-10.8) K/ul Hgb 11.4 L (14.0-18.0) g/dl Hct 33.9 L (42.0-52.0) % Plt Count 302 (130-400) K/uL [facility] 04/20/23 05:38 Sodium 137 Potassium 3.8 Chloride 105 Carbon Dioxide 27 BUN 27 H Creatinine 0.90 D Glucose 54 L Calcium 8.9 Medications Administered Current Inpatient Medications Acetaminophen (Acetaminophen 325 Mg Tab) 650 mg PO Q4H PRN PRN Reason: Pain or Fever Stop: 05/19/23 15:20 Dextrose (Dextrose 50% 50 Ml Syringe) 25 - 50 ml IV UD PRN; Protocol PRN Reason: Hypoglycemia Protocol Stop: 05/19/23 15:20 Docusate Sodium (Docusate Sodium 100 Mg Cap) 100 mg PO BID [facility] Stop: 05/20/23 08:59 Last Admin: 04/20/23 07:29 Dose: Not Given Glucagon (Glucagon For Inj 1 Mg Vial) 1 mg SQ UD PRN; Protocol PRN Reason: Hypoglycemia Protocol Stop: 05/19/23 15:20 Glucose (Glucose 10 Tab/Tube) 4 - 8 tab PO UD PRN; Protocol PRN Reason: Hypoglycemia Treatment Stop: 05/19/23 15:20 Glucose (Glucose 40% Gel 15 Gm Tube) 15 - 30 gm PO UD PRN; Protocol PRN Reason: Hypoglycemia Protocol Stop: 05/19/23 15:20 Heparin Sodium (Porcine) (Heparin Sod 5,000 Unit/0.5 Ml Vial) 5,000 units SQ Q12 [facility] Stop: 05/19/23 20:59 Last Admin: 04/20/23 07:31 Dose: 5,000 units Sodium Chloride (Nss) 1,000 mls @ 80 mls/hr IV .[id number] [facility] Stop: 04/20/23 17:59 Last Admin: 04/20/23 05:51 Dose: 80 mls/hr Insulin Aspart (Insulin Aspart Per Unit Charge) 0 units SC ACHS [facility] Stop: 05/19/23 16:29 Last Admin: 04/20/23 13:07 Dose: Not Given Insulin Glargine (Lantus Per Unit Charge) 0 units SC HS [facility]; Protocol Stop: 05/20/23 20:59 Levothyroxine Sodium (Levothyroxine Sodium 88 Mcg Tablet) 88 mcg PO DAILYBB [facility] Stop: 05/20/23 06:29 Last Admin: 04/20/23 05:52 Dose: 88 mcg Methadone HCl (Methadone Oral Soln 2 Mg/Ml) 114 mg PO DAILY [facility] Stop: 05/04/23 10:59 Last Admin: 04/20/23 11:28 Dose: 114 mg Miscellaneous (Carbohydrates For Hypoglycemia ) 15 - 30 gm PO UD PRN PRN Reason: Hypoglycemia Protocol Stop: 05/19/23 15:20 Last Admin: 04/20/23 07:31 Dose: 30 gm Miscellaneous Information (Pharmacy Glycemic Mgmt Consult) 1 each N/A UD PRN; Protocol PRN Reason: Consult Stop: 05/19/23 15:23 *Methadone*Patient's Own Controlled Med 1 1 each PO DAILY [facility] Stop: 05/04/23 10:59 Last Admin: 04/20/23 11:28 Dose: 1 ea Ondansetron HCl (Ondansetron Inj 2 Mg/Ml 2 Ml Vial) 4 mg IV Q6H PRN PRN Reason: Nausea Stop: 05/19/23 15:20 Polyethylene Glycol (Polyethylene (Miralax) 17 Gm Pack) 17 gm PO DAILY PRN PRN Reason: Constipation Stop: 05/19/23 15:20 (1) AMS (altered mental status) Altered mental status type: unspecified Qualified Code(s): R41.82 - Altered mental status, unspecified
[2023-04-20] MEDS: LANTUS PER UNIT CHARGE SC SCH (21:57)
[2023-04-21 06:30] LABS: Hematocrit (blood only) 33.6 % (42.0-52.0); Hemoglobin 10.9 g/dl (14.0-18.0); Mean Corpuscular Hemoglobin 30.1 pg (25.0-34.0); Mean Corpuscular Hgb Conc 32.4 g/dL (32.0-36.0); Mean Corpuscular Volume 92.8 fL (80.0-100.0); Mean Platelet Volume 9.9 fL (9.4-12.4); Platelet Count 284 K/uL (130-400); RDW Coefficient of Variation 13.3 % (11.5-14.5); RDW Standard Deviation 45.8 fL (36.4-46.3); Red Blood Count 3.62 M/uL (4.70-6.10)
[2023-04-21 06:50] LABS: BUN Creatinine Ratio 22.1 (10-20); Calcium 8.7 mg/dl (8.6-10.3); Creatinine Clr Calc Pharmacy 76.6 ml/min; Est GFR (African American) 118.9 ml/min; Est GFR (Non-African American) 102.6 ml/min; Phosphorus 2.9 mg/dl (2.5-4.9)
[2023-04-21 07:22] LABS: Basophils # (auto) 0.04 K/uL (0.00-0.20); Basophils % (auto) 0.7 %; Eosinophils % (auto) 1.7 %; Immature Granulocytes # (auto) 0.01 K/uL (0.01-0.20); Immature Granulocytes % (auto) 0.2 %; Lymphocytes # (auto) 3.89 K/uL (1.20-3.40); Lymphocytes % (auto) 65.9 %; Monocytes # (auto) 0.26 K/uL (0.11-0.59); Monocytes % (auto) 4.4 %; Neutrophils % (auto) 27.1 %; RBC Morphology Unremarkable
[2023-04-21] MEDS: SODIUM CHLORIDE 0.9% 500 ML IV ONE (12:35)
[2023-04-21] MEDS: SODIUM CHLORIDE 0.9% 1,000 ML IV SCH (12:35)
--- NOTE | 2023-04-21 15:58 | Hospitalist Progress Note ---
Date of Service April 21, 2023 Assessment & Plan (1) AMS (altered mental status): Plan: This is a 38 yo M with a PMH of poorly controlled type 1 diabetes, hypothyroidism, mood disorder, history of opioid use disorder now on methadone, methamphetamine abuse, tobacco use and other medical problems listed below who was sent over from a methadone clinic in [place] with altered mental status. Acute toxic metabolic encephalopathy-cleared Developed AMS while at methadone clinic after dose, sent to [facility] ED CT head No acute intracranial hemorrhage, no evidence of acute territorial infarction or other acute intracranial disease process VSS, no leukocytosis, initial glucose 329, no anion gap Endorses smoking meth 5 days ago, UDS positive for methadone, meth and ecstasy/mdma Initially concerned for possible serotonin syndrome but not taking his sert raline or Seroquel on his outpatient med list - only taking insulin somewhat regularly Lethargic but awakens and answers questions appropriately, A&Ox3 Afebrile, no tremulousness, no focal neuro deficit Continue gentle fluids, blood cultures pending, monitor on tele, reassess resuming methadone in AM based on mentation Remains stable without any acute symptoms and/or confusion and he wants to be discharged Will get PT and OT evaluation prior to discharge Methadone has been restarted Low blood pressure Systolic blood pressure noted to be around 80s Received 500 mL of NS bolus and continued to have 1000 mL of normal saline more Monitor BP Patient remains asymptomatic and will observe (2) Methamphetamine use: (3) Methadone use: (4) Diabetes type I: Plan: A1c 11.3 in Jan 2023, repeat a1c tomorrow AM Hold home agents SSI while in-patient Glycemic consult placed given poor compliance BSG AC HS (5) Abnormal results of thyroid function studies: (6) Hypothyroidism: Plan: TSH 150, free T4 0.52 Last took levothyroxine 1 week ago and since ran out Outpatient TFTs consistently abnormal in setting of noncompliance Given missed home dose, continue Follow up with PCP for repeat TFTs (7) Acute urinary retention: Plan: Denies history of urinary retention CT abd/pelvis with severely distended bladder with mild bladder wall thickening. This could be due to chronic outlet obstruction and/or an associated cystitis. Bansal catheterization recommended for decompression. In addition, a urinalysis is suggested to assess for a cystitis. Mild bilateral hydronephrosis which is likely due to the severely distended bladder. Abdominal fullness resolved since bansal placed Routine urology consult given urinary retention UA without evidence of UTI Appreciate urology input and recommendation to keep the Bansal until he has been seen as an outpatient during follow-up (8) Bipolar disorder: Plan: Not currently on any psych medications (9) Tobacco use disorder: Plan: Smoking cessation recommended. Declined offer for nicotine patch (10) Underweight: Plan: Underweight with BMI of 18 Nutrition assessment, likely protein calorie malnutrition (11) Non compliance w medication regimen: Plan: DVT Ppx: SQ heparin Code status: FULL PCP: [facility] Dispo: admitted to pcu Noted ready to be discharged today Will have PT OT evaluation prior to discharge Admission and Anticipated Discharge Date Admission Date: April 19, 2023 Subjective 04/20/2023 Patient was seen and examined in telemetry unit He was sent to ER from a methadone clinic in [place] with altered mental status Change in mental status almost resolved in the emergency room and admitted to have methamphetamine and use of methadone Clinically much better this morning without any symptoms 04/21/2023 The patient was seen and examined in telemetry He has been weak and lethargic and the blood pressure noted to be low at systolic 80s Denies any symptoms Will have PT OT evaluation prior to discharge Review of Systems Review of Systems: All systems reviewed and are unremarkable except as noted below Physical Exam Physical Exam: Lying in bed comfortably Constitutional: well developed, well nourished and + thin; not ill appearing Eyes: PERRL, conjunctivae normal, anicteric sclerae ENMT: external ear and nose normal, oropharynx normal Neck: trachea midline, no thyromegaly Respiratory: no respiratory distress Auscultation: lungs clear to auscultation bilaterally Cardiovascular: Rate/Rhythm: regular rate and regular rhythm; not tachycardic Heart Sounds: normal S1 and normal S2; no murmur Extremities: no edema Gastrointestinal (Abdomen): Inspection/Auscultation: normal bowel sounds; abdomen not distended Percussion/Palpation: abdomen nontender Neurologic: normal touch/pain/proprioception and moves all extremities; no focal motor deficits and not confused Lymphatic: no cervical or axillary lymphadenopathy Results & Data Results & Data Vital Signs (Past 12 Hours) Vital Signs Temp Pulse Resp BP Pulse Ox O2 Del Method 04/21/23 15:16 36.4 C L 71 19 82/50 L 96 Room Air 04/21/23 11:53 74/43 L 04/21/23 11:02 36.3 C L 68 17 64/40 L 93 Room Air 04/21/23 07:31 36.4 C L 66 17 103/68 97 Room Air 04/21/23 07:31 Room Air Laboratory Results Short CBC 04/21/23 Range/Units 05:48 WBC 5.90 (4.8-10.8) K/ul Hgb 10.9 L (14.0-18.0) g/dl Hct 33.6 L (42.0-52.0) % Plt Count 284 (130-400) K/uL [facility] 04/21/23 05:48 Sodium 136 Potassium 4.0 Chloride 102 Carbon Dioxide 30 BUN 21 Creatinine 0.95 Glucose 100 H Calcium 8.7 Medications Administered Current Inpatient Medications Acetaminophen (Acetaminophen 325 Mg Tab) 650 mg PO Q4H PRN PRN Reason: Pain or Fever Stop: 05/19/23 15:20 Dextrose (Dextrose 50% 50 Ml Syringe) 25 - 50 ml IV UD PRN; Protocol PRN Reason: Hypoglycemia Protocol Stop: 05/19/23 15:20 Docusate Sodium (Docusate Sodium 100 Mg Cap) 100 mg PO BID [facility] Stop: 05/20/23 08:59 Last Admin: 04/21/23 09:20 Dose: Not Given Glucagon (Glucagon For Inj 1 Mg Vial) 1 mg SQ UD PRN; Protocol PRN Reason: Hypoglycemia Protocol Stop: 05/19/23 15:20 Glucose (Glucose 10 Tab/Tube) 4 - 8 tab PO UD PRN; Protocol PRN Reason: Hypoglycemia Treatment Stop: 05/19/23 15:20 Glucose (Glucose 40% Gel 15 Gm Tube) 15 - 30 gm PO UD PRN; Protocol PRN Reason: Hypoglycemia Protocol Stop: 05/19/23 15:20 Heparin Sodium (Porcine) (Heparin Sod 5,000 Unit/0.5 Ml Vial) 5,000 units SQ Q12 [facility] Stop: 05/19/23 20:59 Last Admin: 04/21/23 09:21 Dose: 5,000 units Insulin Aspart (Insulin Aspart Per Unit Charge) 0 units SC ACHS [facility] Stop: 05/19/23 16:29 Last Admin: 04/21/23 12:37 Dose: 3 units Insulin Glargine (Lantus Per Unit Charge) 0 units SC HS [facility]; Protocol Stop: 05/20/23 20:59 Last Admin: 04/20/23 21:57 Dose: 5 units Levothyroxine Sodium (Levothyroxine Sodium 88 Mcg Tablet) 88 mcg PO DAILYBB [facility] Stop: 05/20/23 06:29 Last Admin: 04/21/23 06:17 Dose: 88 mcg Methadone HCl (Methadone Oral Soln 2 Mg/Ml) 114 mg PO DAILY [facility] Stop: 05/04/23 10:59 Last Admin: 04/21/23 09:20 Dose: 114 mg Miscellaneous (Carbohydrates For Hypoglycemia ) 15 - 30 gm PO UD PRN PRN Reason: Hypoglycemia Protocol Stop: 05/19/23 15:20 Last Admin: 04/20/23 07:31 Dose: 30 gm Miscellaneous Information (Pharmacy Glycemic Mgmt Consult) 1 each N/A UD PRN; Protocol PRN Reason: Consult Stop: 05/19/23 15:23 *Methadone*Patient's Own Controlled Med 1 1 each PO DAILY [facility] Stop: 05/04/23 10:59 Last Admin: 04/21/23 09:20 Dose: 1 ea Ondansetron HCl (Ondansetron Inj 2 Mg/Ml 2 Ml Vial) 4 mg IV Q6H PRN PRN Reason: Nausea Stop: 05/19/23 15:20 Polyethylene Glycol (Polyethylene (Miralax) 17 Gm Pack) 17 gm PO DAILY PRN PRN Reason: Constipation Stop: 05/19/23 15:20 (1) AMS (altered mental status) Altered mental status type: unspecified Qualified Code(s): R41.82 - Altered mental status, unspecified
[2023-04-22 06:57] LABS: BUN Creatinine Ratio 23.9 (10-20); Calcium 8.5 mg/dl (8.6-10.3); Creatinine Clr Calc Pharmacy 84.7 ml/min; Est GFR (African American) 128.1 ml/min; Est GFR (Non-African American) 110.5 ml/min; Magnesium 1.8 mg/dl (1.7-2.4); Phosphorus 2.4 mg/dl (2.5-4.9)
--- NOTE | 2023-04-22 13:37 | Hospitalist Progress Note ---
Date of Service April 22, 2023 Assessment & Plan (1) AMS (altered mental status): Plan: This is a 38 yo M with a PMH of poorly controlled type 1 diabetes, hypothyroidism, mood disorder, history of opioid use disorder now on methadone, methamphetamine abuse, tobacco use and other medical problems listed below who was sent over from a methadone clinic in [place] with altered mental status. Acute toxic metabolic encephalopathy-cleared Developed AMS while at methadone clinic after dose, sent to [facility] ED CT head No acute intracranial hemorrhage, no evidence of acute territorial infarction or other acute intracranial disease process VSS, no leukocytosis, initial glucose 329, no anion gap Endorses smoking meth 5 days ago, UDS positive for methadone, meth and ecstasy/mdma Initially concerned for possible serotonin syndrome but not taking his sert raline or Seroquel on his outpatient med list - only taking insulin somewhat regularly Lethargic but awakens and answers questions appropriately, A&Ox3 Afebrile, no tremulousness, no focal neuro deficit Continue gentle fluids, blood cultures pending, monitor on tele, reassess resuming methadone in AM based on mentation Remains stable without any acute symptoms and/or confusion and he wants to be discharged Will get PT and OT evaluation prior to discharge Methadone has been restarted Clinically stable but has low blood pressure Low blood pressure Systolic blood pressure noted to be around 80s Received 500 mL of NS bolus and continued to have 1000 mL of normal saline more Monitor BP Patient remains asymptomatic and will observe Strongly advised to drink more fluid and eat reasonably and more (2) Methamphetamine use: (3) Methadone use: (4) Diabetes type I: Plan: A1c 11.3 in Jan 2023, repeat a1c tomorrow AM Hold home agents SSI while in-patient Glycemic consult placed given poor compliance BSG AC HS (5) Abnormal results of thyroid function studies: (6) Hypothyroidism: Plan: TSH 150, free T4 0.52 Last took levothyroxine 1 week ago and since ran out Outpatient TFTs consistently abnormal in setting of noncompliance Given missed home dose, continue Follow up with PCP for repeat TFTs (7) Acute urinary retention: Plan: Denies history of urinary retention CT abd/pelvis with severely distended bladder with mild bladder wall thickening. This could be due to chronic outlet obstruction and/or an associated cystitis. Bansal catheterization recommended for decompression. In addition, a urinalysis is suggested to assess for a cystitis. Mild bilateral hydronephrosis which is likely due to the severely distended bladder. Abdominal fullness resolved since bansal placed Routine urology consult given urinary retention UA without evidence of UTI Appreciate urology input and recommendation to keep the Bansal until he has been seen as an outpatient during follow-up Does not have any more urinary symptoms (8) Bipolar disorder: Plan: Not currently on any psych medications (9) Tobacco use disorder: Plan: Smoking cessation recommended. Declined offer for nicotine patch (10) Underweight: Plan: Severe protein calorie malnutrition Underweight with BMI of 18 Nutrition assessment, likely protein calorie malnutrition (11) Non compliance w medication regimen: Plan: DVT Ppx: SQ heparin Code status: FULL PCP: [facility] Dispo: admitted to pcu Noted ready to be discharged today Will have PT OT evaluation prior to discharge Admission and Anticipated Discharge Date Admission Date: April 19, 2023 Subjective 04/20/2023 Patient was seen and examined in telemetry unit He was sent to ER from a methadone clinic in [place] with altered mental status Change in mental status almost resolved in the emergency room and admitted to have methamphetamine and use of methadone Clinically much better this morning without any symptoms 04/21/2023 The patient was seen and examined in telemetry He has been weak and lethargic and the blood pressure noted to be low at systolic 80s Denies any symptoms Will have PT OT evaluation prior to discharge 04/22/2023 The patient was seen and examined in telemetry unit She was noted to be dizzy during physical therapy yesterday and the blood pressure noted to be very low at systolic 80s Received intravenous fluid boluses and the condition improved a little Has been feeling fine today but the blood pressure remains low at 87/52 Denies any significant symptoms at rest Review of Systems Review of Systems: All systems reviewed and are unremarkable except as noted below Physical Exam Physical Exam: Lying in bed comfortably Constitutional: well developed, well nourished and + thin; not ill appearing Eyes: PERRL, conjunctivae normal, anicteric sclerae ENMT: external ear and nose normal, oropharynx normal Neck: trachea midline, no thyromegaly Respiratory: no respiratory distress Auscultation: lungs clear to auscultation bilaterally Cardiovascular: Rate/Rhythm: regular rate and regular rhythm; not tachycardic Heart Sounds: normal S1 and normal S2; no murmur Extremities: no edema Gastrointestinal (Abdomen): Inspection/Auscultation: normal bowel sounds; abdomen not distended Percussion/Palpation: abdomen nontender Neurologic: normal touch/pain/proprioception and moves all extremities; no focal motor deficits and not confused Lymphatic: no cervical or axillary lymphadenopathy Results & Data Results & Data Vital Signs (Past 12 Hours) Vital Signs Temp Pulse Pulse Pulse Resp BP Pulse Ox 04/22/23 11:21 36.7 C 77 17 87/52 L 97 04/22/23 09:07 109/58 L 04/22/23 08:00 67 04/22/23 07:50 04/22/23 07:35 36.5 C 71 19 110/74 96 04/22/23 05:44 36.5 C 66 16 111/75 96 O2 Del Method 04/22/23 11:21 Room Air 04/22/23 09:07 04/22/23 08:00 04/22/23 07:50 Room Air 04/22/23 07:35 Room Air 04/22/23 05:44 Room Air Laboratory Results BMP 04/22/23 05:50 Sodium 136 Potassium 4.0 Chloride 105 Carbon Dioxide 28 BUN 21 Creatinine 0.88 Glucose 109 H Calcium 8.5 L Medications Administered Current Inpatient Medications Acetaminophen (Acetaminophen 325 Mg Tab) 650 mg PO Q4H PRN PRN Reason: Pain or Fever Stop: 05/19/23 15:20 Dextrose (Dextrose 50% 50 Ml Syringe) 25 - 50 ml IV UD PRN; Protocol PRN Reason: Hypoglycemia Protocol Stop: 05/19/23 15:20 Docusate Sodium (Docusate Sodium 100 Mg Cap) 100 mg PO BID [facility] Stop: 05/20/23 08:59 Last Admin: 04/22/23 08:46 Dose: Not Given Glucagon (Glucagon For Inj 1 Mg Vial) 1 mg SQ UD PRN; Protocol PRN Reason: Hypoglycemia Protocol Stop: 05/19/23 15:20 Glucose (Glucose 10 Tab/Tube) 4 - 8 tab PO UD PRN; Protocol PRN Reason: Hypoglycemia Treatment Stop: 05/19/23 15:20 Glucose (Glucose 40% Gel 15 Gm Tube) 15 - 30 gm PO UD PRN; Protocol PRN Reason: Hypoglycemia Protocol Stop: 05/19/23 15:20 Heparin Sodium (Porcine) (Heparin Sod 5,000 Unit/0.5 Ml Vial) 5,000 units SQ Q12 [facility] Stop: 05/19/23 20:59 Last Admin: 04/22/23 09:11 Dose: 5,000 units Insulin Aspart (Insulin Aspart Per Unit Charge) 0 units SC ACHS [facility] Stop: 05/19/23 16:29 Last Admin: 04/22/23 13:01 Dose: Not Given Insulin Glargine (Lantus Per Unit Charge) 0 units SC HS [facility]; Protocol Stop: 05/20/23 20:59 Last Admin: 04/21/23 21:42 Dose: 5 units Levothyroxine Sodium (Levothyroxine Sodium 88 Mcg Tablet) [facility] Stop: 05/20/23 06:29 Last Admin: 04/22/23 05:51 Dose: 88 mcg Methadone HCl (Methadone Oral Soln 2 Mg/Ml) 114 mg PO DAILY [facility] Stop: 05/04/23 10:59 Last Admin: 04/22/23 09:11 Dose: 114 mg Miscellaneous (Carbohydrates For Hypoglycemia ) 15 - 30 gm PO UD PRN PRN Reason: Hypoglycemia Protocol Stop: 05/19/23 15:20 Last Admin: 04/20/23 07:31 Dose: 30 gm Miscellaneous Information (Pharmacy Glycemic Mgmt Consult) 1 each N/A UD PRN; Protocol PRN Reason: Consult Stop: 05/19/23 15:23 *Methadone*Patient's Own Controlled Med 1 1 each PO DAILY [facility] Stop: 05/04/23 10:59 Last Admin: 04/22/23 09:11 Dose: 1 ea Ondansetron HCl (Ondansetron Inj 2 Mg/Ml 2 Ml Vial) 4 mg IV Q6H PRN PRN Reason: Nausea Stop: 05/19/23 15:20 Polyethylene Glycol (Polyethylene (Miralax) 17 Gm Pack) 17 gm PO DAILY PRN PRN Reason: Constipation Stop: 05/19/23 15:20 (1) AMS (altered mental status) Altered mental status type: unspecified Qualified Code(s): R41.82 - Altered mental status, unspecified
--- NOTE | 2023-04-22 13:57 | Pharmacy Report ---
Pharmacy Glycemic Short Note 2 - Date of Service April 22, 2023 - Glycemic Short BSG Results (Last 24 hours): 04/21/23 04/21/23 04/22/23 16:05 20:12 05:50 Glucose 109 H POC Glucose 120 H 119 H 04/22/23 04/22/23 07:13 11:25 Glucose POC Glucose 100 H 158 H OUTPATIENT ANTIDIABETIC REGIMEN: * Lantus 18 units SQ QPM * Novolog 0-12 units QID * HbA1c 10.7% (04/20/23), 11.3% (01/08) ASSESSMENT: 04/22 * Patient received total fo 10 units of insulin yesterday, of which 5 units were basal * Fasting BSG 100 mg/dl - continue same basal * Limited PO intake noted 04/20 * Gil is a 38 YOM admitted for altered mental status and a history of type 1 diabetes mellitus. Pharmacy has been consulted to assist with glycemic management while inpatient. * Hypoglycemia this AM, potentially caused by Lantus?, reported poor compliance to home regimen by provider. BSGs improved with breakfast. Will order 0.1 units/kg of basal insulin at bedtime, and allow for up to 0.2 unit/kg if BSGs elevated. * Novolog initiated at a weight based stress of 3, will loosen to a weight based stress of 2 for now due to hypoglycemia. PLAN FOR INPATIENT GLYCEMIC CONTROL: * Hold outpatient oral diabetes medications * Basal insulin * Lantus 5 units HS * Bolus insulin * NovoLog per scale ACHS or Q6hrs while NPO * Goal Range: Low 110 mg/dL - High 140 mg/dL * Correction Factor: 45 mg/dL/unit * Nutritional / Prandial insulin per carb ratio of 1 unit per 15 grams CHO consumed
[2023-04-22] MEDS: POT PHOSPHATE MONOBASIC W/ SOD TAB PO SCH (16:12)
[2023-04-22] MEDS: LANTUS PER UNIT CHARGE SC SCH (22:09)
--- NOTE | 2023-04-23 13:41 | Pharmacy Report ---
Pharmacy Glycemic Short Note 2 - Date of Service April 23, 2023 - Glycemic Short BSG Results (Last 24 hours): 04/22/23 04/22/23 04/23/23 16:01 20:48 07:35 POC Glucose 204 H 187 H 50 L* 04/23/23 04/23/23 04/23/23 07:36 08:13 11:21 POC Glucose 53 L* 136 H 198 H OUTPATIENT ANTIDIABETIC REGIMEN: * Lantus 18 units SQ QPM * Novolog 0-12 units QID * HbA1c 10.7% (04/20/23), 11.3% (01/08) ASSESSMENT: 04/23 * Gil received 9 units of insulin this morning (5 were basal) * Hypoglycemia this AM, repeat within goal range, will allow for 20% decrease in basal insulin if BSGs reasonable. * BSGs trended up throughout the day, will tighten carbohydrate ratio slightly 04/22 * Patient received total fo 10 units of insulin yesterday, of which 5 units were basal * Fasting BSG 100 mg/dl - continue same basal * Limited PO intake noted 04/20 * Gil is a 38 YOM admitted for altered mental status and a history of type 1 diabetes mellitus. Pharmacy has been consulted to assist with glycemic management while inpatient. * Hypoglycemia this AM, potentially caused by Lantus?, reported poor compliance to home regimen by provider. BSGs improved with breakfast. Will order 0.1 units/kg of basal insulin at bedtime, and allow for up to 0.2 unit/kg if BSGs elevated. * Novolog initiated at a weight based stress of 3, will loosen to a weight based stress of 2 for now due to hypoglycemia. PLAN FOR INPATIENT GLYCEMIC CONTROL: * Hold outpatient oral diabetes medications * Basal insulin * Lantus 4-5 units HS (see eMAR for additional details) * Bolus insulin * NovoLog per scale ACHS or Q6hrs while NPO * Goal Range: Low 110 mg/dL - High 140 mg/dL * Correction Factor: 45 mg/dL/unit * Nutritional / Prandial insulin per carb ratio of 1 unit per 15 grams CHO consumed
--- NOTE | 2023-04-23 13:55 | Hospitalist Progress Note ---
Date of Service April 23, 2023 Assessment & Plan (1) AMS (altered mental status): Plan: This is a 38 yo M with a PMH of poorly controlled type 1 diabetes, hypothyroidism, mood disorder, history of opioid use disorder now on methadone, methamphetamine abuse, tobacco use and other medical problems listed below who was sent over from a methadone clinic in [place] with altered mental status. Acute toxic metabolic encephalopathy-cleared Developed AMS while at methadone clinic after dose, sent to [facility] ED CT head No acute intracranial hemorrhage, no evidence of acute territorial infarction or other acute intracranial disease process VSS, no leukocytosis, initial glucose 329, no anion gap Endorses smoking meth 5 days ago, UDS positive for methadone, meth and ecstasy/mdma Initially concerned for possible serotonin syndrome but not taking his sert raline or Seroquel on his outpatient med list - only taking insulin somewhat regularly Lethargic but awakens and answers questions appropriately, A&Ox3 Afebrile, no tremulousness, no focal neuro deficit Continue gentle fluids, blood cultures pending, monitor on tele, reassess resuming methadone in AM based on mentation Remains stable without any acute symptoms and/or confusion and he wants to be discharged Will get PT and OT evaluation prior to discharge Methadone has been restarted Dizziness resolved and weakness has been improving Has been moving around without any difficulties Likely be discharged this afternoon Low blood pressure Systolic blood pressure noted to be around 80s Received 500 mL of NS bolus and continued to have 1000 mL of normal saline more Monitor BP Patient remains asymptomatic and will observe Strongly advised to drink more fluid and eat reasonably and more Pressure is better today at systolic more than 100 remains asymptomatic Will be discharged this afternoon (2) Methamphetamine use: (3) Methadone use: (4) Diabetes type I: Plan: A1c 11.3 in Jan 2023, repeat a1c tomorrow AM Hold home agents SSI while in-patient Glycemic consult placed given poor compliance BSG AC HS (5) Abnormal results of thyroid function studies: (6) Hypothyroidism: Plan: TSH 150, free T4 0.52 Last took levothyroxine 1 week ago and since ran out Outpatient TFTs consistently abnormal in setting of noncompliance Given missed home dose, continue Follow up with PCP for repeat TFTs (7) Acute urinary retention: Plan: Denies history of urinary retention CT abd/pelvis with severely distended bladder with mild bladder wall thickening. This could be due to chronic outlet obstruction and/or an associated cystitis. Bansal catheterization recommended for decompression. In addition, a urinalysis is suggested to assess for a cystitis. Mild bilateral hydronephrosis which is likely due to the severely distended bladder. Abdominal fullness resolved since bansal placed Routine urology consult given urinary retention UA without evidence of UTI Appreciate urology input and recommendation to keep the Bansal until he has been seen as an outpatient during follow-up Does not have any more urinary symptoms (8) Bipolar disorder: Plan: Not currently on any psych medications (9) Tobacco use disorder: Plan: Smoking cessation recommended. Declined offer for nicotine patch (10) Underweight: Plan: Severe protein calorie malnutrition Underweight with BMI of 18 Nutrition assessment, likely protein calorie malnutrition (11) Non compliance w medication regimen: Plan: DVT Ppx: SQ heparin Code status: FULL PCP: [facility] Dispo: admitted to pcu Noted ready to be discharged today Will have PT OT evaluation prior to discharge Admission and Anticipated Discharge Date Admission Date: April 19, 2023 Subjective 04/20/2023 Patient was seen and examined in telemetry unit He was sent to ER from a methadone clinic in [place] with altered mental status Change in mental status almost resolved in the emergency room and admitted to have methamphetamine and use of methadone Clinically much better this morning without any symptoms 04/21/2023 The patient was seen and examined in telemetry He has been weak and lethargic and the blood pressure noted to be low at systolic 80s Denies any symptoms Will have PT OT evaluation prior to discharge 04/22/2023 The patient was seen and examined in telemetry unit She was noted to be dizzy during physical therapy yesterday and the blood pressure noted to be very low at systolic 80s Received intravenous fluid boluses and the condition improved a little Has been feeling fine today but the blood pressure remains low at 87/52 Denies any significant symptoms at rest 04/23/2023 The patient was seen and examined in telemetry unit He has been feeling much better Denies any symptoms at rest or with ambulation Has been eating and drinking enough Will be discharged this afternoon Review of Systems Review of Systems: All systems reviewed and are unremarkable except as noted below Physical Exam Physical Exam: Lying in bed comfortably Constitutional: well developed, well nourished and + thin; not ill appearing Eyes: PERRL, conjunctivae normal, anicteric sclerae ENMT: external ear and nose normal, oropharynx normal Neck: trachea midline, no thyromegaly Respiratory: no respiratory distress Auscultation: lungs clear to auscultation bilaterally Cardiovascular: Rate/Rhythm: regular rate and regular rhythm; not tachycardic Heart Sounds: normal S1 and normal S2; no murmur Extremities: no edema Gastrointestinal (Abdomen): Inspection/Auscultation: normal bowel sounds; abdomen not distended Percussion/Palpation: abdomen nontender Musculoskeletal: No acute arthritis involving any of the joint Neurologic: normal touch/pain/proprioception and moves all extremities; no focal motor deficits and not confused Lymphatic: no cervical or axillary lymphadenopathy Results & Data Results & Data Vital Signs (Past 12 Hours) Vital Signs Temp Pulse Pulse Resp BP Pulse Ox O2 Del Method 04/23/23 11:23 36.7 C 78 18 105/65 93 Room Air 04/23/23 07:40 36.7 C 80 17 100/68 97 Room Air 04/23/23 06:01 63 04/23/23 03:16 36.9 C 69 16 116/74 94 Room Air Medications Administered Current Inpatient Medications Acetaminophen (Acetaminophen 325 Mg Tab) 650 mg PO Q4H PRN PRN Reason: Pain or Fever Stop: 05/19/23 15:20 Dextrose (Dextrose 50% 50 Ml Syringe) 25 - 50 ml IV UD PRN; Protocol PRN Reason: Hypoglycemia Protocol Stop: 05/19/23 15:20 Docusate Sodium (Docusate Sodium 100 Mg Cap) 100 mg PO BID [facility] Stop: 05/20/23 08:59 Last Admin: 04/23/23 09:00 Dose: Not Given Glucagon (Glucagon For Inj 1 Mg Vial) 1 mg SQ UD PRN; Protocol PRN Reason: Hypoglycemia Protocol Stop: 05/19/23 15:20 Glucose (Glucose 10 Tab/Tube) 4 - 8 tab PO UD PRN; Protocol PRN Reason: Hypoglycemia Treatment Stop: 05/19/23 15:20 Glucose (Glucose 40% Gel 15 Gm Tube) 15 - 30 gm PO UD PRN; Protocol PRN Reason: Hypoglycemia Protocol Stop: 05/19/23 15:20 Heparin Sodium (Porcine) (Heparin Sod 5,000 Unit/0.5 Ml Vial) 5,000 units SQ Q 12 [facility] Stop: 05/19/23 20:59 Last Admin: 04/23/23 09:06 Dose: 5,000 units Insulin Aspart (Insulin Aspart Per Unit Charge) 0 units SC ACHS [facility] Stop: 05/19/23 16:29 Last Admin: 04/23/23 12:00 Dose: 5 units Insulin Glargine (Lantus Per Unit Charge) 0 units SC HS [facility]; Protocol Stop: 05/23/23 20:59 Levothyroxine Sodium (Levothyroxine Sodium 88 Mcg Tablet) [facility]: 05/20/23 06:29 Last Admin: 04/23/23 06:10 Dose: 88 mcg Methadone HCl (Methadone Oral Soln 2 Mg/Ml) 114 mg PO DAILY [facility] Stop: 05/04/23 10:59 Last Admin: 04/23/23 09:06 Dose: 114 mg Miscellaneous (Carbohydrates For Hypoglycemia ) 15 - 30 gm PO UD PRN PRN Reason: Hypoglycemia Protocol Stop: 05/19/23 15:20 Last Admin: 04/20/23 07:31 Dose: 30 gm Miscellaneous Information (Pharmacy Glycemic Mgmt Consult) 1 each N/A UD PRN; Protocol PRN Reason: Consult Stop: 05/19/23 15:23 *Methadone*Patient's Own Controlled Med 1 1 each PO DAILY [facility] Stop: 05/04/23 10:59 Last Admin: 04/23/23 09:11 Dose: Not Given Ondansetron HCl (Ondansetron Inj 2 Mg/Ml 2 Ml Vial) 4 mg IV Q6H PRN PRN Reason: Nausea Stop: 05/19/23 15:20 Polyethylene Glycol (Polyethylene (Miralax) 17 Gm Pack) 17 gm PO DAILY PRN PRN Reason: Constipation Stop: 05/19/23 15:20 Potassium Phosphate (Pot Phosphate Monobasic W/ Sod Tab) 1 tab PO TID [facility] Stop: 05/22/23 13:59 Last Admin: 04/23/23 09:06 Dose: 1 tab (1) AMS (altered mental status) Altered mental status type: unspecified Qualified Code(s): R41.82 - Altered mental status, unspecified
[2023-04-23] MEDS ORDERED: LANTUS PER UNIT CHARGE SC SCH (21:00)
--- NOTE | 2023-04-24 08:26 | Discharge Summary ---
Date of Service April 23, 2023 Admission HPI Per Admitting Provider This is a 38 yo M with a PMH of poorly controlled type 1 diabetes, hypothyroidism, mood disorder, history of opioid use disorder now on methadone, methamphetamine abuse, tobacco use and other medical problems listed below who was sent over from a methadone clinic in [place] with altered mental status. Patient is currently residing at a homeless custodial in [place]. Ambulates with a cane at baseline due to left foot drop thought to be due to nerve damage from a prolonged hospitalization. Is prescribed multiple medications including gabapentin, Zoloft and Seroquel but has not taking those currently. Only medications he takes is insulin, which she states he last took this morning and levothyroxine which she last took 1 week ago and since ran out. Endorses smoking methamphetamine 5 days ago and felt okay afterwards until his time at the methadone clinic this morning. After receiving medication this morning, had a reportedly acute episode of confusion and did not return to baseline so was sent to the ED for further evaluation. States he smoked meth in the setting of taking methadone a few months prior and did not have a reaction like this. Denies any IV drug use. Currently feels worn out and sleepy but no longer endorsing confusion. No hallucinations. No headache, visual changes, lightheadedness, chest pain, palpitations, shortness of breath, nausea, vomiting, abdominal pain, dysuria, hematuria, diarrhea or constipation. States he did have some lower abdominal discomfort prior to arrival that is since resolved with Bansal catheter placement. Admission Exam Per Admitting Provider Physical Exam: General Appearance: WD/WN, vitals as above, NAD, sitting up in bed, lethargic but awakens and answers questions appropriately, thin and frail appearing Head: normocephalic, atraumatic Eyes: normal inspection, PERRL, conjunctivae normal, anicteric sclerae ENT: external ear and nose normal, oropharynx with dry mucous membranes, edentulous Neck: normal visual inspection, trachea midline, no thyromegaly Respiratory: normal respiratory effort, lungs clear to auscultation, no wheeze, rales, rhonchi. No accessory muscle use Cardiovascular: regular rate, rhythm, no murmur, normal peripheral pulses, no BLE edema. Vessels: no JVD Chest: normal inspection of chest Abdomen/GI: normal bowel sounds, soft, nontender, no hepatosplenomegaly : Bansal Extremities/Musculoskeletal: no cyanosis or clubbing, extremities motor strength 5/5 Neurologic: PERRL, EOMI, accommodation nl, no face palsy, no dysarthria, CN's II-XI intact bilaterally and moves all extremities Psychiatric: A+Ox3, euthymic affect Skin: no rashes, normal color, warm/dry Principal Diagnosis Change in mental status-improved, on methadone, acute urinary retention, hypothyroidism Discharge Exam Lying in bed comfortably Constitutional well developed, well nourished and + thin; not ill appearing Eyes PERRL, conjunctivae normal, anicteric sclerae ENMT external ear and nose normal, oropharynx normal Neck trachea midline, no thyromegaly Respiratory no respiratory distress Auscultation: lungs clear to auscultation bilaterally Cardiovascular Rate/Rhythm: regular rate and regular rhythm; not tachycardic Heart Sounds: normal S1 and normal S2; no murmur Extremities: no edema Gastrointestinal (Abdomen) Inspection/Auscultation: normal bowel sounds; abdomen not distended Percussion/Palpation: abdomen nontender Neurologic normal touch/pain/proprioception and moves all extremities; no focal motor deficits and not confused Lymphatic no cervical or axillary lymphadenopathy Discharge Data Allergies Allergy/AdvReac Type Severity Reaction Status Date / Time No Known Allergies Allergy Unverified 04/19/23 11:05 Consultations 04/19/23 15:03 ED Decision to Admit Stat 04/19/23 16:53 Consult Urology Routine Ordered Studies 04/19/23 09:06 CT abd pelvis IV con only Stat 04/19/23 09:07 CT head/brain wo con Stat Hospital Course (1) AMS (altered mental status): This is a 38 yo M with a PMH of poorly controlled type 1 diabetes, hypothyroidism, mood disorder, history of opioid use disorder now on methadone, methamphetamine abuse, tobacco use and other medical problems listed below who was sent over from a methadone clinic in [place] with altered mental status. Acute toxic metabolic encephalopathy-cleared Developed AMS while at methadone clinic after dose, sent to [facility] ED CT head No acute intracranial hemorrhage, no evidence of acute territorial infarction or other acute intracranial disease process VSS, no leukocytosis, initial glucose 329, no anion gap Endorses smoking meth 5 days ago, UDS positive for methadone, meth and ecstasy/mdma Initially concerned for possible serotonin syndrome but not taking his sertraline or Seroquel on his outpatient med list - only taking insulin somewhat regularly Lethargic but awakens and answers questions appropriately, A&Ox3 Afebrile, no tremulousness, no focal neuro deficit Continue gentle fluids, blood cultures pending, monitor on tele, reassess resuming methadone in AM based on mentation Remains stable without any acute symptoms and/or confusion and he wants to be discharged Will get PT and OT evaluation prior to discharge Methadone has been restarted Dizziness resolved and weakness has been improving Has been moving around without any difficulties Likely be discharged this afternoon Low blood pressure Systolic blood pressure noted to be around 80s Received 500 mL of NS bolus and continued to have 1000 mL of normal saline more Monitor BP Patient remains asymptomatic and will observe Strongly advised to drink more fluid and eat reasonably and more Pressure is better today at systolic more than 100 remains asymptomatic Will be discharged this afternoon (2) Methamphetamine use: (3) Methadone use: (4) Diabetes type I: A1c 11.3 in Jan 2023, repeat a1c tomorrow AM Hold home agents SSI while in-patient Glycemic consult placed given poor compliance BSG AC HS (5) Abnormal results of thyroid function studies: (6) Hypothyroidism: TSH 150, free T4 0.52 Last took levothyroxine 1 week ago and since ran out Outpatient TFTs consistently abnormal in setting of noncompliance Given missed home dose, continue Follow up with PCP for repeat TFTs (7) Acute urinary retention: Denies history of urinary retention CT abd/pelvis with severely distended bladder with mild bladder wall thickening. This could be due to chronic outlet obstruction and/or an associated cystitis. Bansal catheterization recommended for decompression. In addition, a urinalysis is suggested to assess for a cystitis. Mild bilateral hydronephrosis which is likely due to the severely distended bladder. Abdominal fullness resolved since bansal placed Routine urology consult given urinary retention UA without evidence of UTI Appreciate urology input and recommendation to keep the Bansal until he has been seen as an outpatient during follow-up Does not have any more urinary symptoms (8) Bipolar disorder: Not currently on any psych medications (9) Tobacco use disorder: Smoking cessation recommended. Declined offer for nicotine patch (10) Underweight: Severe protein calorie malnutrition Underweight with BMI of 18 Nutrition assessment, likely protein calorie malnutrition (11) Non compliance w medication regimen: DVT Ppx: SQ heparin Code status: FULL PCP: Star Dispo: admitted to pcu Noted ready to be discharged today Will have PT OT evaluation prior to discharge Total Time Total Time Spent Total Time Spent (In Minutes): 40 minutes Discharge Plan Discharge Items Patient Disposition: Home - Self-Care Reason For Visit: AMS Discharge Diagnosis: Change in mental status-improved, on methadone, acute urinary retention, hypothyroidism Condition on Discharge: Good Activity: Resume your previous activity Non-emergency contact: Primary Care Provider Call non-emergency contact if: you have any medication questions and your symptoms worsen Follow-up/Referrals: Mary Callahan CRNP [Nurse Practitioner] - (The Urology office will contact you for a follow up appointment.) Av Graves MD [Primary Care Provider] - (Date & Time 04/30/2023 3:00 PM Provider Av Graves MD [facility] ) Diet: Regular Addtl Attending Provider Instructions: Please take precautions to avoid fall Take your medications as advised Please keep appointments with your healthcare provider Doses of your Lantus has been decreased to 10 units from 18 units to avoid hypoglycemia Pending Studies at Discharge: No Stand-Alone Forms: My [facility], Smoking Cessation Medications and DC Order Prescriptions: Continued Methadone 114 mg PO DAILY Rx Instructions: Per caregiver, pt visits clinic for his doses. levothyroxine 88 mcg Tablet 88 mcg PO DAILY Rx Instructions: last took 1 week ago insulin aspart U-100 [Novolog U-100 Insulin aspart] 100 unit/mL Solution 0 - 12 unit SUBCUT QID Changed insulin glargine [Lantus Solostar U-100 Insulin] 100 unit/mL (3 mL) Insulin Pen 10 unit SUBCUT PM Qty: 3 0RF Rx Instructions: No Insulin supplied.Dose reduced Discharge Orders: Discharge Order (Routine); Ordered 04/23/23 Ordered By: Lan Gamboa Admission Data Admit Date/Time: 04/19/23 15:21 Attending Provider: Lan Gamboa Admit Provider: Ysabel Ceja Primary Care Provider: Av Graves Other Providers: Ysabel Ceja; Shane Benoit Other Interventions: Discharge Summary Assessment (RN) Last Done: 04/23/23 15:23
[2023-04-24 15:42] LABS: Amphetamine Urine, Confirm 3070 ng/mL (<250); MDA negative; MDEA negative; MDMA (Ecstasy) Urine, Confirm negative; Methadone, Ur Metabolite 5910 ng/mL (<100); Methadone, Ur Verification 4030 ng/mL (<100); Methamphetamine, Ur Confirm 9940 ng/mL (<250)
== END 2023-04-23 16:20 | disposition home or self-care (01) | DRG 91 ==
LOC: ED 08:51 → INTOOBSV 15:21 → 2S 15:21 → SUATTDRO 15:21 → 2S 17:09

== ENCOUNTER 2023-06-08 08:58 | Inpatient (IN) ==
--- NOTE | 2023-06-08 09:09 | Emergency Department Note ---
Impression & Plan Generalized weakness, Pneumonia, Acute hypoxemic respiratory failure, Hypomagnesemia, Elevated procalcitonin, Influenza A ED Provider Note HISTORY OF PRESENT ILLNESS: Patient is a 38-year-old male presenting with near syncope and hypoxia. Patient presented to methadone clinic today for his daily dose of methadone and apparently was very weak and having difficulties walking. He was given his normal dose and they called 911. On EMS arrival, the patient was found to be hypotensive with a systolic blood pressure in the 60s. He was given 400 cc of normal saline and route. Patient's initial oxygen level was hypoxic to the upper 80s and he was started on 2 L supplemental oxygen with improvement of his saturations to 96% on 2 L. Patient reports for the last week he has been feeling generally unwell. He has had a cough productive of a yellow phlegm. Denies any fevers. Reports feeling short of breath with exertion. He denies any chest pain. Denies any abdominal pain, nausea or vomiting. He denies any recent sick contact exposures. He does have a history of severe pneumonia and requiring intubation at [facility] last year. ROS: as above PHYSICAL EXAM: Constitutional: Patient appears in no acute distress. Cachectic appearing HENT: Head: Normocephalic and atraumatic. Eyes: EOMI, PERRL Mouth/Throat: Mucous membranes moist. Neck: Trachea midline. Neck supple. Cardiovascular: RRR, No murmurs, rubs or gallops. Intact distal pulses. Pulmonary/Chest: No respiratory distress. Breath sounds clear and equal bilaterally. No wheezes or rales. Abdominal: Abdomen soft, no tenderness, rebound or guarding. Musculoskeletal: No edema, tenderness or deformity noted. Skin: Warm and dry. No rash, erythema, pallor or cyanosis Psychiatric: Appropriate mood and affect for situation. Neurological: Alert and keenly responsive. CN II-XII grossly intact, moving all extremities equally and fully. MDM: - Vitals signs showed hypotension - History obtained via patient. History as above. - Chronic conditions affecting care: DM-1; hypothyroidism; mood disorder; HLD; osteomyelitis or R 5th finger; bipolar 2 disorder; chronic methadone use - Differential diagnoses include, but are not limited to: pneumonia; medication side effect; UTI; dehydration; electrolyte abnormality; ACS - Order placed for continuous cardiac monitoring. At this time, monitor showed rate of 83 bpm with normal sinus rhythm, per my interpretation. - External medical records reviewed. Discharge summary dated 04/24/2023 was reviewed. Patient was admitted at that time for altered mental status and acute urinary retention. - EKG interpreted by myself showed normal sinus rhythm. Rate 86 bpm. QT 388. No acute ischemic changes - Laboratory workup interpreted by myself showed normal WBC with left shift; chronic anemia; hyponatremia (Na 131); hyperglycemia (glucose 270); hypomagnesemia (Mg 1.5); normal troponin; elevated procalcitonin (1.27) - Viral respiratory panel positive for influenza A. - Patient's initial saturations on room air were 90%. He was placed on 2 L nasal cannula to maintain his saturations above 93% - CXR showed right lower lobe pneumonia, per my interpretation. - VBG shows slight acidosis (pH 7.3) - Blood cultures obtained. - Patient given 2L NS for fluid resuscitation - sepsis volume based on ideal body weight is 1936 cc. Given 1g IV magnesium for electrolyte replacement. IV zosyn administered for sepsis and pneumonia coverage. - Repeat blood pressures improved with fluid resuscitation. - Discussion was had with bottle caser about patient's case and need for admission - Hospitalist consulted for admission - Patient admitted to [facility] for further evaluation and management. ASSESSMENT AND PLAN: Diagnosis: generalized weakness; pneumonia; acute hypoxic respiratory failure; elevated procalcitonin; hypomagnesemia; influenza A Plan: admit Past Med/Surg History Medical History Opioid use disorder Bipolar disorder Tobacco use disorder Non compliance w medication regimen Hypothyroidism Diabetes type I No significant past medical history Surgical History No pertinent past surgical history Family History Other Alcohol dependence with other alcohol-induced disorder Mood disorder Social History Smoking Status: Current every day smoker Tobacco Type: Cigarettes packs per day: 0.5; Hx Alcohol Use: No Hx Substance Use: Yes Non-Prescribed Medications: Methamphetamines Last Used Substance: Days (ago) Preferred Language: Ukrainian Communication Ability: Effective Book Jogger Required: No Beliefs That Will Affect Care: None Current Living Situation: Homeless Current Living Situation Comment: homeless [facility]pc Feels Safe at Home: Yes Allergies Allergies Allergy/AdvReac Type Severity Reaction Status Date / Time No Known Allergies Allergy Unverified 04/19/23 11:05 Home Meds Home Medications Medication Instructions Recorded Confirmed Methadone 114 mg PO DAILY 04/19/23 06/08/23 insulin aspart U-100 100 unit/mL 0 - 12 unit subcut QID 04/19/23 06/08/23 subcutaneous solution (Novolog U-100 Insulin aspart) levothyroxine 88 mcg tablet 88 mcg PO DAILY 04/19/23 06/08/23 gabapentin 300 mg capsule 300 mg PO TID 06/08/23 06/08/23 Previous Rx's Medication Instructions Recorded insulin glargine 100 unit/mL (3 10 unit (0.1 mL) subcut PM #3 mL 04/23/23 mL) subcutaneous pen (Lantus Solostar U-100 Insulin) Results & Data (ED) Vital Signs Vital Signs - 24 hr 06/08/23 09:05 06/08/23 09:09 06/08/23 09:10 Pulse Rate 89 90 89 Pulse Rate from SpO2 Sensor 90 Pulse Rhythm Regular Pulse Strength Normal Respiratory Rate 22 16 Respiratory Effort / Characteristics Spontaneous SOB on Exertion Respiratory Pattern Tachypnea Blood Pressure 94/66 L Blood Pressure Mean 75 Blood Pressure Position Lying Pulse Oximetry 90 93 Oxygen Delivery Method Room Air Nasal Cannula Oxygen Flow Rate 2 Sepsis Recent Fever Within 48 Hours No Sepsis New/Unexplained Change in Mental Status No Sepsis Action Taken by Nursing Physician Notified 06/08/23 09:15 06/08/23 09:30 06/08/23 09:34 Pulse Rate 88 85 Pulse Rate from SpO2 Sensor 88 84 Pulse Rhythm Pulse Strength Respiratory Rate 18 18 Respiratory Effort / Characteristics Respiratory Pattern Blood Pressure 113/81 Blood Pressure Mean 95 Blood Pressure Position Pulse Oximetry 90 95 Oxygen Delivery Method Nasal Cannula Oxygen Flow Rate 2 Sepsis Recent Fever Within 48 Hours Sepsis New/Unexplained Change in Mental Status Sepsis Action Taken by Nursing 06/08/23 09:34 06/08/23 09:45 06/08/23 10:00 Pulse Rate 87 84 Pulse Rate from SpO2 Sensor 87 84 Pulse Rhythm Pulse Strength Respiratory Rate 20 16 Respiratory Effort / Characteristics Respiratory Pattern Blood Pressure 113/84 Blood Pressure Mean 89 Blood Pressure Position Pulse Oximetry 98 98 Oxygen Delivery Method Nasal Cannula Nasal Cannula Oxygen Flow Rate 2 2 Sepsis Recent Fever Within 48 Hours Sepsis New/Unexplained Change in Mental Status Sepsis Action Taken by Nursing 06/08/23 10:00 Pulse Rate 82 Pulse Rate from SpO2 Sensor 82 Pulse Rhythm Pulse Strength Respiratory Rate 17 Respiratory Effort / Characteristics Respiratory Pattern Blood Pressure Blood Pressure Mean Blood Pressure Position Pulse Oximetry 97 Oxygen Delivery Method Nasal Cannula Oxygen Flow Rate 2 Sepsis Recent Fever Within 48 Hours Sepsis New/Unexplained Change in Mental Status Sepsis Action Taken by Nursing Laboratory Data 06/08/23 09:15 06/08/23 09:15 Lab Results 06/08/23 06/08/23 06/08/23 Range/Units 09:15 09:24 Unknown WBC 8.48 (4.8-10.8) K/ul RBC 3.60 L (4.70-6.10) M/uL Hgb 10.6 L (14.0-18.0) g/dl Hct 32.4 L (42.0-52.0) % MCV 90.0 (80.0-100.0) fL MCH 29.4 (25.0-34.0) pg MCHC 32.7 (32.0-36.0) g/dL RDW Std Deviation 44.9 (36.4-46.3) fL RDW Coeff of Nick 13.4 (11.5-14.5) % Plt Count 343 (130-400) K/uL MPV 9.2 L (9.4-12.4) fL Immature Gran % (Auto) 1.1 % Neut % (Auto) 80.0 % Lymph % (Auto) 14.6 % Preston % (Auto) 3.4 % Eos % (Auto) 0.1 % Baso % (Auto) 0.8 % Neut # (Auto) 6.78 H (1.40-6.50) K/uL Lymph # (Auto) 1.24 (1.20-3.40) K/uL Preston # (Auto) 0.29 (0.11-0.59) K/uL Eos # (Auto) 0.01 (0.00-0.50) K/uL Baso # (Auto) 0.07 (0.00-0.20) K/uL Immature Gran # (Auto) 0.09 (0.01-0.20) K/uL PT 16.3 H (9.0-12.0) Seconds INR 1.5 H (0.9-1.1) VBG pH 7.30 L (7.36-7.41) VBG pCO2 57 H (38-50) mmHg VBG pO2 36 mmHg VBG HCO3 28 mmol/L VBG O2 Saturation 63.6 % VBG Base Excess 0.4 mEq/L Sodium 131 L (136-145) mmol/L Potassium 4.3 (3.5-5.1) mmol/L Chloride 92 L (98-107) mmol/L Carbon Dioxide 28 (21-32) mmol/L Anion Gap 11 (3-11) BUN 22 (6-23) mg/dl Creatinine 1.29 (0.6-1.4) mg/dl Est Cr Clr Drug Dosing 56.1 ml/min Est GFR ( Amer) 82.1 ml/min Est GFR (Non-Af Amer) 70.9 ml/min BUN/Creatinine Ratio 17.1 (10-20) Glucose 270 H (70-99(Fasting)) mg/dl Lactate 1.0 (0.4-2.0) mmol/L Calcium 8.6 (8.6-10.3) mg/dl Magnesium 1.5 L (1.7-2.4) mg/dl Total Bilirubin 0.4 (0.2-1.0) mg/dl Direct Bilirubin 0.1 (0-0.2) mg/dl AST 11 L (13-39) U/L ALT 8 (7-52) U/L Alkaline Phosphatase 71 (34-104) U/L Troponin I High Sens 9.5 (0-20) pg/ml Total Protein 7.4 (6.0-8.3) gm/dl Albumin 3.4 (3.4-5.0) gm/dl Procalcitonin 1.27 H (0-0.5) ng/ml Nasal Influ A H1 2008 PCR DETECTED A (NotDetected) Adenovirus (PCR) Not Detected (NotDetected) B. pertussis DNA (PCR) Not Detected (NotDetected) B.parapertussis DNA PCR Not Detected (NotDetected) C. pneumoniae DNA (PCR) Not Detected (NotDetected) Coronavirus OC43 (PCR) Not Detected (NotDetected) Coronavirus HKU1 (PCR) Not Detected (NotDetected) Coronavirus 229E (PCR) Not Detected (NotDetected) SARS-CoV-2 (PCR) Not Detected (NotDetected) Coronavirus NL63 (PCR) Not Detected (NotDetected) Human Metapneumovir PCR Not Detected (NotDetected) Influenza Type B (PCR) Not Detected (NotDetected) M. pneumoniae (PCR) Not Detected (NotDetected) Parainfluenza 1 (PCR) Not Detected (NotDetected) Parainfluenza 2 (PCR) Not Detected (NotDetected) Parainfluenza 3 (PCR) Not Detected (NotDetected) Parainfluenza 4 (PCR) Not Detected (NotDetected) RSV (PCR) Not Detected (NotDetected) Entero/Rhino (PCR) Not Detected (NotDetected) Administered Medications Discontinued Medications Sodium Chloride (Nss) 500 mls @ 999 mls/hr IV .Q31M [facility] Stop: 06/08/23 09:45 Last Infusion: 06/08/23 10:23 Dose: Infused [place]ed [place] [facility] [place]: 06/08/23 09:47 Dose: 999 mls/hr Documented [place]: [facility] Sodium Chloride (Nss) 1,000 mls @ 999 mls/hr IV .Q1H1M [facility] Stop: 06/08/23 10:15 Last Infusion: 06/08/23 10:23 Dose: Infused Documented [place] [facility] Admin: 06/08/23 09:47 Dose: 999 mls/hr Documented By: [facility] Piperacillin Sod/Tazobactam Sod (Zosyn) 4.5 gm in 100 mls @ 200 mls/hr IV NOW ONE Stop: 06/08/23 10:41 Last Admin: 06/08/23 10:23 Dose: 200 mls/hr Documented By: [facility] [place] Data Radiologist's Impression: Chest X-Ray 06/08/23 09:05 XR chest 1V portable HISTORY: cough; hypoxia COMPARISON: Chest 04/19/2023. FINDINGS: Slightly rotated study. No pneumothorax. The cardiac silhouette is normal in size. Interval development of multiple patchy bilateral airspace opacities most pronounced within the left midlung zone and right lung base. Linear scarlike density within the right lung zone persists. Possible trace right pleural effusion. IMPRESSION: Interval development of multifocal bilateral airspace opacities. This likely represents a pneumonia. ACT 112: Negative or not required by law. Electronically signed by: Evgeny Scott M.D. 06/08/2023 10:07 AM Discharge Plan Visit Data Chief Complaint: Vertigo ED Provider: Jaimie George Discharge Problem: Generalized weakness, Pneumonia, Acute hypoxemic respiratory failure, Hypomagnesemia, Elevated procalcitonin, Influenza A Forms Stand Alone Forms: My [facility] [employer] Prescriptions Prescriptions: No Action Methadone 114 mg PO DAILY Rx Instructions: Per caregiver, pt visits clinic for his doses. levothyroxine 88 mcg Tablet 88 mcg PO DAILY insulin aspart U-100 [Novolog U-100 Insulin aspart] 100 unit/mL Solution 0 - 12 unit SUBCUT QID insulin glargine [Lantus Solostar U-100 Insulin] 100 unit/mL (3 mL) Insulin Pen 10 unit SUBCUT PM Qty: 3 0RF gabapentin 300 mg capsule 300 mg PO TID Referrals Referrals: Av Graves MD [Primary Care Provider] -
[2023-06-08 09:31] LABS: Base Excess VBG 0.4 mEq/L; HCO3 VBG 28 mmol/L; Oxygen Saturation VBG 63.6 %; PCO2 VBG 57 mmHg (38-50); PO2 VBG 36 mmHg
[2023-06-08 09:41] LABS: Hematocrit (blood only) 32.4 % (42.0-52.0); Hemoglobin 10.6 g/dl (14.0-18.0); Mean Corpuscular Hemoglobin 29.4 pg (25.0-34.0); Mean Corpuscular Hgb Conc 32.7 g/dL (32.0-36.0); Mean Platelet Volume 9.2 fL (9.4-12.4); Platelet Count 343 K/uL (130-400); RDW Coefficient of Variation 13.4 % (11.5-14.5); RDW Standard Deviation 44.9 fL (36.4-46.3); White Blood Count 8.48 K/ul (4.8-10.8)
[2023-06-08] MEDS: SODIUM CHLORIDE 0.9% 1,000 ML IV SCH ×2 (09:47→12:01)
[2023-06-08] MEDS: SODIUM CHLORIDE 0.9% 500 ML IV SCH (09:47)
[2023-06-08 09:56] LABS: Albumin Level 3.4 gm/dl (3.4-5.0); BUN Creatinine Ratio 17.1 (10-20); Bilirubin Direct 0.1 mg/dl (0-0.2); Bilirubin,Total 0.4 mg/dl (0.2-1.0); Calcium 8.6 mg/dl (8.6-10.3); Creatinine Clr Calc Pharmacy 56.1 ml/min; Est GFR (African American) 82.1 ml/min; Est GFR (Non-African American) 70.9 ml/min; Magnesium 1.5 mg/dl (1.7-2.4); Potassium 4.3 mmol/L (3.5-5.1); Total Protein 7.4 gm/dl (6.0-8.3)
[2023-06-08 09:57] LABS: Basophils # (auto) 0.07 K/uL (0.00-0.20); Basophils % (auto) 0.8 %; Eosinophils # (auto) 0.01 K/uL (0.00-0.50); Eosinophils % (auto) 0.1 %; Immature Granulocytes # (auto) 0.09 K/uL (0.01-0.20); Immature Granulocytes % (auto) 1.1 %; Lymphocytes # (auto) 1.24 K/uL (1.20-3.40); Lymphocytes % (auto) 14.6 %; Monocytes # (auto) 0.29 K/uL (0.11-0.59); Monocytes % (auto) 3.4 %; Neutrophils # (auto) 6.78 K/uL (1.40-6.50)
[2023-06-08 10:02] LABS: Troponin I High Sensitivity 9.5 pg/ml (0-20)
[2023-06-08 10:05] LABS: INR 1.5 (0.9-1.1); Prothrombin Time 16.3 Seconds (9.0-12.0)
--- NOTE | 2023-06-08 10:09 | XRay Report ---
XR chest 1V portable HISTORY: cough; hypoxia COMPARISON: Chest 04/19/2023. FINDINGS: Slightly rotated study. No pneumothorax. The cardiac silhouette is normal in size. Interval development of multiple patchy bilateral airspace opacities most pronounced within the left midlung zone and right lung base. Linear scarlike density within the right lung zone persists. Possible trace right pleural effusion. IMPRESSION: Interval development of multifocal bilateral airspace opacities. This likely represents a pneumonia. ACT 112: Negative or not required by law. Electronically signed by: Evgeny Scott M.D. 06/08/2023 10:07 AM
[2023-06-08] MEDS: PIPERACILLIN/TAZOBACTAM 4.5 GM/100 ML BAG IV ONE (10:23)
[2023-06-08 10:44] LABS: Adenovirus PCR Not Detected (NotDetected); Bordetella parapertussis PCR Not Detected (NotDetected); Bordetella pertussis PCR Not Detected (NotDetected); Chlamydia pneumoniae PCR Not Detected (NotDetected); Coronavirus 229E PCR Not Detected (NotDetected); Coronavirus CoV-2 (COVID19)PCR Not Detected (NotDetected); Coronavirus HKU1 PCR Not Detected (NotDetected); Coronavirus NL63 PCR Not Detected (NotDetected); Coronavirus OC43PCR Not Detected (NotDetected); Human Metapneumovirus PCR Not Detected (NotDetected); Influenza A (H1 2009) PCR DETECTED (NotDetected); Influenza B PCR Not Detected (NotDetected); Mycoplasma pneumoniae PCR Not Detected (NotDetected); Parainfluenza Virus 1 PCR Not Detected (NotDetected); Parainfluenza Virus 2 PCR Not Detected (NotDetected); Parainfluenza Virus 3 PCR Not Detected (NotDetected); Parainfluenza Virus 4 PCR Not Detected (NotDetected); Respiratory Syncytial VirusPCR Not Detected (NotDetected); Rhinovirus/Enterovirus PCR Not Detected (NotDetected)
[2023-06-08] MEDS: SODIUM CHLORIDE 0.9% 500 ML IV ONE (10:57)
[2023-06-08] MEDS ORDERED: DEXTROSE 50% 50 ML SYRINGE IV PRN (11:45)
[2023-06-08] MEDS ORDERED: GLUCOSE 10 TAB/TUBE PO PRN (11:45)
[2023-06-08] MEDS ORDERED: GLUCOSE 40% GEL 15 GM TUBE PO PRN (11:45)
[2023-06-08] MEDS ORDERED: GLUCAGON FOR INJ 1 MG VIAL SQ PRN (11:45)
[2023-06-08] MEDS: MAGNESIUM SULFATE / D5W 1 GM/100 ML BAG IV STA (12:01)
--- NOTE | 2023-06-08 12:43 | History & Physical Report ---
Date of Service June 08, 2023 Assessment & Plan (1) Multifocal pneumonia: Plan: This is a 38 y/o male with poorly controlled DM1, hypothyroidism, bipolar disorder, hx opioid use now on methadone, methamphetamine use, tobacco use, and other history as outlined who presents to the ED from the methadone clinic with weakness and shortness of breath. Work-up in the ED revealed a multifocal pneumonia and influenza A. VBG showed mild acidosis and elevated pCO2. Initial hypotension corrected with ~2L of IVF and hypoxia is improved on 2L of O2. Also noted to have slight worsening of chronic anemia. - Admit to PCU - Broad-spectrum antibiotic coverage - Zosyn started in the ED, will add Vanco due to multiple hospitalizations, hx meth use sporadically, reusing insulin needles at times - Check MRSA swab - Check ABG due to abnormal VBG - Sputum culture - Iron studies for anemia (2) Influenza A: Plan: Symptoms for 5-7 days so outside the window for Tamiflu Droplet precautions (3) Acute hypoxemic respiratory failure: Plan: See plan for #1 Continue O2 as required to maintain sat of at least 92% (4) Hypomagnesemia: Plan: Replete IV - will give additional 2g mag sulfate and recheck in the AM (5) Methadone use: Plan: Continue outpatient dosing (6) Diabetes type I: Plan: Poorly controlled in the past Will continue basal insulin with sliding scale A1c in the AM Consider glycemic pharmacy consult pending clinical course (7) Hypothyroidism: Plan: Chronic, has missed some doses of meds over the last couple of months due to difficulty obtaining Continue levothyroxine at current dose (8) Methamphetamine use: Plan: Check UDS - pt reports last use of meth was last week (9) Elevated INR: Plan: Outpatient labs reviewed - INR has been elevated at least since 2022 but it is unclear if this has ever been worked up. Check PTT, mixing study (10) Severe protein-calorie malnutrition: Plan: Pt reports ~100 lb wt loss over the last couple of years Consult change management manager for assistance Plan Pt seen and reviewed with collaborating physician, Dr. Lopez. Plan of care discussed and as outlined above. Code status: full code DVT prophylaxis: SCDs for now due to work-up of prolonged PT/INR Laurence Smith PA-C History of Present Illness Chief Complaint: Weakness, cough Primary Care Provider: Av Graves MD This is a 38 y/o male with poorly controlled DM1, hypothyroidism, bipolar disorder, hx opioid use now on methadone, methamphetamine use, tobacco use, and other history as outlined who presents to the ED from the methadone clinic with weakness and shortness of breath. Pt reports that he started with "cold symptoms" about a week ago, mainly cough and subjective fever. He has felt warm, had chills and sweats but did not check his temperature. His cough has been productive of yellow to green sputum, no hemoptysis. He has noted shortness of breath at rest and with exertion. He has had associated chest heaviness and tight sensation but denies chest pain or palpitations. He smokes 1PPD. This morning, he went to the methadone clinic and was noted to be profoundly weak. He was then given his usual methadone dose and reportedly worsened acutely weakness, diaphoresis, short of breath so EMS was called. His initial systolic BPs were reportedly in the 60s so IVFs were started. He was given 400 ml in route, additional 1500 ml in the ED with improvement of BP into the 90s-100s systolic. Initial pulseox for EMS was in the low 80s, in the ED upper 80s so pt was placed on 2L of oxygen with improvement. Pt was admitted to [facility] 04/19-04/23/23 with altered mental status secondary to acute toxic metabolic encephalopathy - UDS was positive for methadone, methamphetamine, and ecstasy/mdma. He also had acute urinary retention and had a Rasheed catheter placed. He was supposed to f/u with urology as an outpatient to evaluate for removal. However, instead he presented to the [facility] ED a month after discharge and had it removed there. He had trouble getting more needles for his insulin injections so was apparently reusing them for a period of time. His basal insulin dosing was decreased during last admission from 18 units to 10 units due to hypoglycemia. Allergies Allergy/AdvReac Type Severity Reaction Status Date / Time No Known Allergies Allergy Unverified 04/19/23 11:05 Home Medications Medication Instructions Recorded Confirmed Type Methadone 114 mg PO DAILY 04/19/23 06/08/23 History insulin aspart U-100 100 unit/mL 0 - 12 unit subcut QID 04/19/23 06/08/23 History subcutaneous solution (Novolog U-100 Insulin aspart) levothyroxine 88 mcg tablet 88 mcg PO DAILY 04/19/23 06/08/23 History insulin glargine 100 unit/mL (3 10 unit (0.1 mL) subcut PM #3 mL 04/23/23 06/08/23 Rx mL) subcutaneous pen (Lantus Solostar U-100 Insulin) gabapentin 300 mg capsule 300 mg PO TID 06/08/23 06/08/23 History Past Med/Surg History Medical History (Updated 06/08/23 @ 15:53 by Winnie Smith PA-C) Pneumocephalus, traumatic Neuropathy Compulsive skin picking ADHD Mixed dyslipidemia History of pneumonia Multifocal necrotizing pneumonia with ARDS in Dec 2021, required intubation Osteomyelitis of right hand Acute urinary retention Opioid use disorder Bipolar disorder Tobacco use disorder Non compliance w medication regimen Hypothyroidism Diabetes type I Surgical History No pertinent past surgical history Family History Other Alcohol dependence with other alcohol-induced disorder Mood disorder Social History Smoking Status: Current every day smoker Tobacco Type: Cigarettes packs per day: 0.5; Second Hand Exposure: Yes; Tobacco Cessation Education Requested by Patient: No Hx Alcohol Use: No Hx Substance Use: Yes Non-Prescribed Medications: Methamphetamines Last Used Substance: Days (ago) Preferred Language: Armenian Communication Ability: Effective Tennis Racket Repairer Required: No Beliefs That Will Affect Care: None Current Living Situation: Homeless Current Living Situation Comment: MOTHER Other Information That Helps Us Care for You: No Feels Safe at Home: Yes Safety Concerns: Feels Safe At This Time Assistive Devices: Cane Review of Systems Review of Systems: All systems reviewed & are unremarkable except as noted in HPI & below Constitutional: + fever (subjective), + chills, + sweats , + fatigue, + weakness and + anorexia Eyes: no diplopia Ear, Nose, Mouth, Throat: no nasal congestion and no sore throat Respiratory: + cough, + dyspnea and + sputum producti on Cardiovascular: + dyspnea on exertion; no chest pain, no palpitations and no syncope Gastrointestinal: no abdominal pain, no nausea, no vomiting and no diarrhea/loose stools Genitourinary: no dysuria or no hematuria Musculoskeletal: no back pain and no neck pain Integumentary: no yellowing of the skin Neurologic: + generalized weakness; no headache(s) Physical Exam Physical Exam: General: awake, alert, no acute distress but appears ill, thin and frail- appearing HEENT: PERRL, no scleral icterus, slightly dry oral mucosa Neck: supple, trachea midline Heart: RRR Lungs: scattered wheezes and rhonchi bilaterally but worse at the bases Abdomen: soft, NT, +BS Extremities: no edema, distal pulses intact and equal Skin: no jaundice, slightly dry Neurologic: moving all extremities, oriented x 3, no dysarthria Results & Data Results & Data Vital Signs (Past 12 Hours) Vital Signs Pulse Resp BP Pulse Ox O2 Del Method O2 Flow Rate 06/08/23 12:30 94/70 L 06/08/23 12:30 75 95 06/08/23 12:15 77 94 06/08/23 12:12 Room Air 06/08/23 12:00 79 93 06/08/23 12:00 104/76 06/08/23 11:45 77 95 06/08/23 11:30 77 90 06/08/23 11:30 95/72 L 06/08/23 11:15 77 3 L 95 06/08/23 11:00 77 0 L 95 06/08/23 11:00 99/75 L 06/08/23 10:45 78 94 06/08/23 10:30 107/78 06/08/23 10:30 80 96 06/08/23 10:15 79 98 06/08/23 10:00 82 17 97 Nasal Cannula 2 06/08/23 10:00 113/84 06/08/23 09:45 84 16 98 Nasal Cannula 2 06/08/23 09:34 87 20 98 Nasal Cannula 2 06/08/23 09:34 113/81 06/08/23 09:30 85 18 95 Nasal Cannula 2 06/08/23 09:15 88 18 90 06/08/23 09:10 89 06/08/23 09:09 90 16 93 Nasal Cannula 2 06/08/23 09:05 89 22 94/66 L 90 Room Air Laboratory Results Laboratory Results - last 24 hr 06/08/23 06/08/23 06/08/23 09:15 09:24 12:32 WBC 8.48 RBC 3.60 L Hgb 10.6 L Hct 32.4 L MCV 90.0 MCH 29.4 MCHC 32.7 RDW Std Deviation 44.9 RDW Coeff of Nick 13.4 Plt Count 343 MPV 9.2 L Immature Gran % (Auto) 1.1 Neut % (Auto) 80.0 Lymph % (Auto) 14.6 Weber % (Auto) 3.4 Eos % (Auto) 0.1 Baso % (Auto) 0.8 Neut # (Auto) 6.78 H Lymph # (Auto) 1.24 Weber # (Auto) 0.29 Eos # (Auto) 0.01 Baso # (Auto) 0.07 Immature Gran # (Auto) 0.09 PT 16.3 H Pending INR 1.5 H Pending APTT Pending PTT Ratio Pending PT Mix Interpretation Pending PTT Mix Interpretation Pending VBG pH 7.30 L VBG pCO2 57 H VBG pO2 36 VBG HCO3 28 VBG O2 Saturation 63.6 VBG Base Excess 0.4 Sodium 131 L Potassium 4.3 Chloride 92 L Carbon Dioxide 28 Anion Gap 11 BUN 22 Creatinine 1.29 Est Cr Clr Drug Dosing 56.1 Est GFR ( Amer) 82.1 Est GFR (Non-Af Amer) 70.9 BUN/Creatinine Ratio 17.1 Glucose 270 H Lactate 1.0 Calcium 8.6 Magnesium 1.5 L Total Bilirubin 0.4 Direct Bilirubin 0.1 AST 11 L ALT 8 Alkaline Phosphatase 71 Troponin I High Sens 9.5 Total Protein 7.4 Albumin 3.4 Procalcitonin 1.27 H Nasal Influ A H1 2008 PCR Adenovirus (PCR) B. pertussis DNA (PCR) B.parapertussis DNA PCR C. pneumoniae DNA (PCR) Coronavirus OC43 (PCR) Coronavirus HKU1 (PCR) Coronavirus 229E (PCR) SARS-CoV-2 (PCR) Coronavirus NL63 (PCR) Human Metapneumovir PCR Influenza Type B (PCR) M. pneumoniae (PCR) Parainfluenza 1 (PCR) Parainfluenza 2 (PCR) Parainfluenza 3 (PCR) Parainfluenza 4 (PCR) RSV (PCR) Entero/Rhino (PCR) 06/08/23 Unknown WBC RBC Hgb Hct MCV MCH MCHC RDW Std Deviation RDW Coeff of Nick Plt Count MPV Immature Gran % (Auto) Neut % (Auto) Lymph % (Auto) Weber % (Auto) Eos % (Auto) Baso % (Auto) Neut # (Auto) Lymph # (Auto) Weber # (Auto) Eos # (Auto) Baso # (Auto) Immature Gran # (Auto) PT INR APTT PTT Ratio PT Mix Interpretation PTT Mix Interpretation VBG pH VBG pCO2 VBG pO2 VBG HCO3 VBG O2 Saturation VBG Base Excess Sodium Potassium Chloride Carbon Dioxide Anion Gap BUN Creatinine Est Cr Clr Drug Dosing Est GFR ( Amer) Est GFR (Non-Af Amer) BUN/Creatinine Ratio Glucose Lactate Calcium Magnesium Total Bilirubin Direct Bilirubin AST ALT Alkaline Phosphatase Troponin I High Sens Total Protein Albumin Procalcitonin Nasal Influ A H1 2008 PCR DETECTED A Adenovirus (PCR) Not Detected B. pertussis DNA (PCR) Not Detected B.parapertussis DNA PCR Not Detected C. pneumoniae DNA (PCR) Not Detected Coronavirus OC43 (PCR) Not Detected Coronavirus HKU1 (PCR) Not Detected Coronavirus 229E (PCR) Not Detected SARS-CoV-2 (PCR) Not Detected Coronavirus NL63 (PCR) Not Detected Human Metapneumovir PCR Not Detected Influenza Type B (PCR) Not Detected M. pneumoniae (PCR) Not Detected Parainfluenza 1 (PCR) Not Detected Parainfluenza 2 (PCR) Not Detected Parainfluenza 3 (PCR) Not Detected Parainfluenza 4 (PCR) Not Detected RSV (PCR) Not Detected Entero/Rhino (PCR) Not Detected Diagnostic Findings Chest X-Ray 06/08/23 09:05 XR chest 1V portable HISTORY: cough; hypoxia COMPARISON: Chest 04/19/2023. FINDINGS: Slightly rotated study. No pneumothorax. The cardiac silhouette is normal in size. Interval development of multiple patchy bilateral airspace opacities most pronounced within the left midlung zone and right lung base. Linear scarlike density within the right lung zone persists. Possible trace right pleural effusion. IMPRESSION: Interval development of multifocal bilateral airspace opacities. This likely represents a pneumonia. ACT 112: Negative or not required by law. Electronically signed by: Evgeny Scott M.D. 06/08/2023 10:07 AM Medications Administered Sodium Chloride (Nss) 1,000 mls @ 100 mls/hr IV .Q10H TERRY Stop: 06/09/23 07:59 Last Admin: 06/08/23 12:01 Dose: 100 mls/hr Documented By: DAVID Discontinued Medications Sodium Chloride (Nss) 500 mls @ 999 mls/hr IV .Q31M TERRY Stop: 06/08/23 09:45 Last Infusion: 06/08/23 10:23 Dose: Infused Documented By: Admin: 06/08/23 09:47 Dose: 999 mls/hr Documented By: DAVID Sodium Chloride (Nss) 1,000 mls @ 999 mls/hr IV .Q1H1M [facility] Stop: 06/08/23 10:15 Last Infusion: 06/08/23 10:23 Dose: Infused Documented By: Admin: 06/08/23 09:47 Dose: 999 mls/hr Documented By: DAVID Piperacillin Sod/Tazobactam Sod (Zosyn) 4.5 gm in 100 mls @ 200 mls/hr IV NOW ONE Stop: 06/08/23 10:41 Last Admin: 06/08/23 10:23 Dose: 200 mls/hr Documented By: DAVID Magnesium Sulfate/Dextrose (Magnesium Sulfate / D5w) 1 gm in 100 mls @ 100 mls/hr IV NOW STA Stop: 06/08/23 11:54 Last Admin: 06/08/23 12:01 Dose: 100 mls/hr Documented By: DAVID Sodium Chloride (Nss) 500 mls @ 999 mls/hr IV .Q31M ONE Stop: 06/08/23 11:27 Last Admin: 06/08/23 10:57 Dose: 999 mls/hr Documented By: DAVID Supervising Physician Co-Signing Physician Notes I have seen and examined the patient and have discussed the case with the provider above. I have reviewed the advanced practitioner's documentation, and I agree with, and take responsibility for that plan of care with the following exceptions. 38-year-old man presenting with lightheadedness and hypoxia. Patient was referred over from the methadone clinic apparently with weakness and having d ifficulties walking. He walks with a cane at baseline with a report of foot drop and peripheral neuropathy in his feet. EMS transported him to the ER today where he was found to be hypotension with a systolic blood pressure in the 60s. This was responsive to fluid challenge. Initial oxygen level was hypoxic to the upper 80s and he was started on supplemental oxygen requiring 2 L via nasal talon vikram. He reports 5 approximately 5 days of coughing that is nonproductive and denies fevers or chills. He reports feeling better since initial management in the ER today. Record review reveals a history of severe pneumonia requiring intubation last year. He is a type I diabetic that is uncontrolled with a hemoglobin A1c of 10.7 in 05/12. He does report compliance with medications including basal bolus insulin at home. On exam he is severely cachectic and underweight. He reports losing approximately 100 pounds over the last couple of years. He denies food insecurity but reports being on food stamps. He is in a monogamous relationship and lives with his spouse and mother who cook food. He does intermittently use crystal meth approximately once per month. He is on chronic methadone for the last 13 to 14 years. He is disabled and not working. He denies any bleeding but has an INR, PT and PTT that are elevated. He denies any history of known hemophilia or other blood disorders or factor deficiencies. This is thought secondary to malnutrition, however, DIC is still in the differential given significant history of previous osteomyelitis and other poorly controlled medical conditions. He is flu positive with multifocal pneumonia on CXR. Hypoxia is secondary to pneumonia, however, he also appears to have a mild respiratory acidosis, which can be seen on prior ABGs in the records. He has no documentation of COPD but is a half-way smoker (1ppd). Declines nicotine patch. Denies alcohol use or other street drugs. Reports he was screened for HIV at a clinic two months ago and this was negative. Workup also reveals acute anemia with uncertain cause. Hb was 12.2 last month and has trended down to 10.6. Again patient denies bleeding. He was hospitalized last month for altered mental status. Frequent phlebotomy from this stay may be contributing. He also had urinary retention with no evidence of infection and was sent home with a Rasheed in place. Today he had an episode of urinary incontinence which is not normal for him. UA is pending, but patient denies any dysuria or other UTI symptoms. 1. Sepsis 2/2 multifocal pneumonia in setting of influenza infection. Given patient's malnutrition, smoking history, and uncontrolled DMI along with his drug use and history of severe necrotizing pneumonia in the past will cont broad spectrum abx pending clinical improvement and culture results. Agree with avoiding Tamiflu given timing of symptoms. Cont monitoring on PCU 2. Severe protein calorie malnutrition-chronic, nutrition consult. Pt doesn't know why his wieght is low and states he cannot tolerate protein shakes or other supplements. Denies decreased food intake or food insecurity. Thiamine and folate empirically. Close followup with nutrition as outpatient recommended. Of note, an outpatient referral was recently placed and patient "no show" because of a lack of transportation. He was informed that virtual visits are possible and he can do those on his smart phone, which he has. 3. respiratory acidosis-uncertain COPD but has a long h/o smoking. ABG reveals pH 7.32 with a slight elevation pCO2 49 (nl 46), will cont treatment for pna and repeat pH in am. 4. acute anemia-possibly 2/2 phlebotomy during last hospitalization. Repeat in am, iron studies. Trend CBC. No active bleeding. 5. coagulopathy-ongoing INR 1.5 per record review. Likely related to malnutrition. DIC considered, however, with a normal platelet level this is considered less likely. If this decreases, consider fibrinogen and D-Dimer for rule out DIC. 6. drug use/smoking-cessation recommended, as noted above. DO John (6) Diabetes type I Diabetes mellitus complication status: with other specified complication Qualified Code(s): E10.69 - Type 1 diabetes mellitus with other specified complication (7) Hypothyroidism Hypothyroidism type: unspecified Qualified Code(s): E03.9 - Hypothyroidism, unspecified
[2023-06-08] MEDS ORDERED: VANCOMYCIN CONSULT ACTIVE PRN (12:49)
[2023-06-08 12:58] LABS: INR 1.6 (0.9-1.1); Partial Thromboplastin Ratio 1.7; Partial Thromboplastin Time 48 Seconds (21-31); Prothrombin Time 16.9 Seconds (9.0-12.0)
[2023-06-08] MEDS ORDERED: ACETAMINOPHEN 325 MG TAB PO PRN (13:30)
[2023-06-08] MEDS: VANCOMYCIN HCL 1,000 MG in SODIUM CHLORIDE 0.9% 500 ML IV ONE (13:43)
[2023-06-08] MEDS: GABAPENTIN 300 MG CAP PO SCH (13:59)
[2023-06-08] MEDS: MAGNESIUM SULFATE / D5W 1 GM/100 ML BAG IV SCH (14:00)
[2023-06-08 14:14] LABS: Base Excess ABG -1.4 mEq/L (-9-1.8); HCO3 ABG 25 mmol/L (19-24); Oxygen Saturation ABG 95.5 % (90-95); PCO2 ABG 49 mmHg (35-46); PO2 ABG 82 mmHg (80-95); pH ABG 7.32 (7.35-7.45)
--- NOTE | 2023-06-08 14:18 | Pharmacy Report ---
Pharmacy PK ABX Note - Date of Service June 08, 2023 - Assessment and Plan Assessment 38 year old M receiving Zosyn/vancomycin for treatment of pneumonia. Pertinent microbiologic data includes: MRSA Nasal Swab pending, blood cultures pending. Day # 1 of antimicrobial therapy. Plan Vancomycin * Loading dose: 1000 mg IV x 1 * Maintenance dose: 500 mg IV every 8 hours * Regimen is predicted to achieve target AUC/DAISY of 400-600 mg/L.hr * Trough level ordered for: 06/08/23 @ 0530 Pharmacy will continue to follow and will adjust dose/frequency as necessary. Thank you. Pharmacy has transitioned to AUC monitoring for vancomycin. AUC/DAISY is the prefe rred PK/PD target and is associated with decreased risk of nephrotoxicity compared to traditional trough targets.
[2023-06-08 14:38] LABS: Phosphorus 2.6 mg/dl (2.5-4.9)
[2023-06-08 15:14] LABS: Allen Test Pos (Pos)
--- NOTE | 2023-06-08 15:41 | Electrocardiogram Report ---
Test Reason : Blood Pressure : / mmHG Vent. Rate : 086 BPM Atrial Rate : 086 BPM P-R Int : 144 ms QRS Dur : 094 ms QT Int : 388 ms P-R-T Axes : 082 095 071 degrees QTc Int : 464 ms Normal sinus rhythm Rightward axis Borderline ECG When compared with ECG of 19-APR-2023 09:04, No significant change was found Confirmed by Fernie Ramírez ([id number]) on 06/08/2023 3:41:32 PM Referred By: REFERRED SELF Confirmed By:Jimi Ramírez
[2023-06-08] MEDS: THIAMINE HCL 100 MG TAB PO SCH (16:53)
[2023-06-08] MEDS: FOLIC ACID 1 MG TAB PO SCH (16:53)
[2023-06-08] MEDS: INSULIN ASPART PER UNIT CHARGE SC SCH (16:56)
[2023-06-08] MEDS: PIPERACILLIN/TAZOBACTAM 4.5 GM in DEXTROSE 5% MINI-B 100 ML IV SCH (17:00)
--- OUTSIDE RECORDS SUMMARY | 2023-06-08 20:23 | External Medical Summary | Summary of Care ---
Author Name Unknown Organization [facility] Address [address] [place] [address] Phone [phone] Care Team Providers Care Branch Operations Specialist Name Role Phone Av Graves MD Primary Care Provider [phone] Reason for Visit * Reason Onset Date Comments Med Request 05/02/2023 Left message 04/19 4 Encounter Details Date Type Department Care Team (Late st Contact Info) Description 05/02/2023 Telephone [facility] [address] [place] [address] Av Graves MD [address], [place] [id number] Med Request (Left message 05/02) Allergies No known active allergiesdocumented as of this encounter (statuses as of 05/11/2023) Medications Medication Sig Dispensed Refills Start Date [...] 02/05/2023 QUEtiapine Fumarate 200 MG Oral Tablet (SEROquel)Indication [...] Tablet by mouth at bedtime. 30 Tablet 03/28/2023 Active Insulin Aspart 100 UNIT/ML Subcutaneous Solution Pen-injector (novoLOG)Indications :Type 1 diabetes mellitus with hemoglobin A1c goal of less than 8.0% ([facility]) Inject 0-12 Units under the skin 4 times a day. 15 mL 03/28/2023 Active Lantus SoloStar 100 UNIT/ML Subcutaneous Solution Pen-injectorIndicati ons:Type 1 diabetes mellitus with hemoglobin A1c goal of less than 8.0% ([facility]) Inject 18 Units under the skin at bedtime. 15 mL 03/28/2023 Active Levothyroxine Sodium 88 MCG Oral Tablet (Levoxyl)Indications :Acquired hypothyroidism Take 1 Tablet by mouth daily first thing in the morning. 30 Tablet 03/28/2023 Active Midodrine HCl 10 MG Oral Tablet (Proamatine)Indicati ons:Orthostatic hypotension Take 1 Tablet by mouth in the morning and 1 Tablet at noon and 1 Tablet before bedtime. 90 Tablet 03/28/2023 Active OneTouch Delica Plus [id number] :Type 1 diabetes mellitus with hemoglobin A1c goal of less than 8.0% ([facility]) test blood sugars FOUR TIMES DAILY E10.9 100 Each 03/28/2023 Active OneTouch Verio In Vitro Strip (Glucose Blood)Indications:Ty pe 1 diabetes mellitus with hemoglobin A1c goal of less than 8.0% (HCC) Use up to 4 times a day E10.9 100 Strip 5 03/28/2023 Active Sertraline HCl 100 MG Oral Tablet (Zoloft)Indications: Depression, major, recurrent, moderate (HCC) Take 1 Tablet by mouth in the morning. 30 Tablet 5 03/28/2023 Active Sertraline HCl 25 MG Oral Tablet (Zoloft)Indications: Depression, major, recurrent, moderate (HCC) Take 1 Tablet by mouth in the morning. With 100mg tablet for 125mg total dose. 30 Tablet 5 03/29/2023 Active OneTouch Verio w/Device KitIndications:Type 1 diabetes mellitus with hemoglobin A1c goal of less than 8.0% (HCC) Use up to 4 times a day E10.9 1 Kit 0 04/12/2023 Active documented as of this encounter (statuses as of 05/11/2023) Active Problems Problem Noted Date Diagnosed Date [...] as of this encounter (statuses as of 05/11/2023) Resolved Problems Problem Noted Date Diagnosed Date [...] as of this encounter (statuses as of 05/11/2023) Immunizations Name Administration Dates Next Due Seasonal [...] encounter Miscellaneous Notes * Telephone Encounter - Shell Ceja MED ASSIST - 05/02/2023 3:04 PM EST Left generic message on answering machine asking patient to return our call to [phone]. Rupert from [facility] is aware. Please relay Dr Graves's message to pt when he calls back and assist in scheduling an appt. * Telephone Encounter - Av Graves MD - 05/02/2023 1:08 PM EST I will not sign any more prescriptions for him until he comes in to see me. No- showed last 6 visits, hospitalized several times since I last saw him. Thanks! Av Graves MD, TIAGO Family Physician Marlin Messer * Telephone Encounter - Ria JcCHRIS - 05/02/2023 10:44 AM EST Did you pend patient's preferred pharmacy and medication before forwarding?yes [facility]acy: [facility] [address] [place] [address] Pending Prescriptions: Disp Refills BD Pen Needle Mini U/F 31G X 5 MM (Insuli*100 Ea*0 Sig: USE THREE TIMES DAILY WITH HUMALOG KWIK PEN E10.9 Last Visit: 02/05/2023 (in office), 02/04/2021 (telemedicine) Next Visit: Visit date not found If no future appointments scheduled, and last appointment is greater than a year ago, please schedule patient for a follow-up appointment Last date the medication was ordered: 12/13/22 Is this request for a controlled substance?No [...] 12/09/2014 06:53 AM * Telephone Encounter - Sabina Garza CPhT - 05/02/2023 9:59 AM EST Pharmacy calling requesting refills for BD Pen Needle Mini U/F 31G X 5 MM (Insulin Pen Needle) . Upon chart review, medication was last prescribed by hospital. Pt did schedule a hospital follow up visit. Please advise if you wish to continue this therapy for the patient. Thank you, Sabina Garza First Officer And Flight Instructor [facility] ([facility]) (Formerly Telepharmacy) 05/02/2023,10:00 AM documented in this encounter Plan of Treatment Upcoming Encounters Date Type Department Care Team (Late st Contact Info) Description 06/22/2023 4:20 PM EDT Telemedicine Neurology, [place] [address] [place] [id number] nAgy Miller MD [address] [place] [address] Health Maintenance Due Date Last Done Comments DISCUSS TOBACCO CESSATION (REFER TO SMARTSET #[id number]) 1987 Pneumococcal Vaccine: Pediatrics (0 to 5 Years) and At-Risk Patients (6 to 64 Years) (1 of 2 - PCV) 1993 Hepatitis B (1 of 3 - 19+ 3-dose series) 2006 Albumin/Creatinine Ratio 11/01/2022 11/01/2021 COVID-19 Vaccine ( - 2022- season) 2022 Influenza Vaccine (FLU shot) (#1) 2022 Diabetic [...] A1c goal of less than 8.0% (HCC) documented in this encounter Advance Directives Latest [...] the patient have Health Care Power of Commodity Lead? No Full Code 12/25/2021 1:35 PM 01/06/2022 6:52 PM This order reflects the patients wishes and were consensually agreed upon. Question Answer Comments Discussion of Advance Directives occurred with: Family Does the patient have a Living Will? No Does the patient have Health Care Power of Commodity Lead? No Care Teams Branch Operations Specialist Relationship Specialty Start Date End Date Av Graves MD [address] [id number] PCP - General Family Medicine 06/27/22 documented as of this encounter
--- OUTSIDE RECORDS SUMMARY | 2023-06-08 20:23 | External Medical Summary | Summary of Care ---
Author Name Unknown Organization [facility] Address [address] [place] [address] Phone [phone] Care Team Providers Care Director Religious Education Name Role Phone Av Graves MD Primary Care Provider [phone] Reason for Visit * Reason Comments Other * Auth/Cert Specialty Diagnoses / Procedures Referred By Leticia t Referred To Contact [facility] [address] [place] [address] Phone: [phone] Emergency Medicine [facility] [address] [place] [address] Referral ID Status Reason Start Date Expiration Date Visits Re quested Visits Authorized [id number] Encounter Details Date Type Department Care Team (Late st Contact Info) Description 05/26/2023 5:43 PM EST - 05/26/2023 6:58 PM EST Emergency [facility] Emergency Department ([place]) [address] [place] [address] Alberto Ryan, DO [address] [place], [place] [id number] Encounter for Basnal catheter removal (Primary Dx) Discharge Disposition: Home - Self Care Allergies No known active allergiesdocumented as of this encounter (statuses as of 05/27/2023) Medications Medication Sig Dispensed Refills Start Date [...] 90 Tablet 03/28/2023 Active OneTouch Delica Plus [id number] :Type 1 diabetes mellitus with hemoglobin A1c [...] total dose. 30 Tablet 03/29/2023 Active OneTouch Verio w/Device KitIndications:Type 1 diabetes mellitus with hemoglobin A1c goal of less than 8.0% (HCC) Use up to 4 times a day E10.9 1 Kit 0 04/12/2023 Active documented as of this encounter (statuses as of 05/27/2023) Active Problems Problem Noted Date Diagnosed Date [...] as of this encounter (statuses as of 05/27/2023) Resolved Problems Problem Noted Date Diagnosed Date [...] as of this encounter (statuses as of 05/27/2023) Immunizations Name Administration Dates Next Due Seasonal [...] Sign Reading Time Taken Comments Blood Pressure 95/65 05/26/2023 6:38 PM EST Pulse 81 05/26/2023 6:38 PM EST Temperature 36.7 C (98.1 F) 05/26/2023 5:38 PM ES T Respiratory Rate 16 05/26/2023 6:38 PM EST Oxygen Saturation 99% 05/26/2023 5:38 PM EST Inhaled Oxygen Concentration - - Weight 50.8 kg (112 lb 1.6 oz) 05/26/2023 5:38 P M EST Height 167.6 cm (5' 6") 05/26/2023 5:38 PM EST Body Mass Index 18.09 05/26/2023 5:38 PM EST documented in this encounter Functional Status Functional [...] this encounter Discharge Instructions * Discharge Instructions* Anselmo Paec PA-C - 05/26/2023 6:55 PM EST You were seen today and treated in the ED for a catheter removal. Your catheter was removed in yourable to urinate. Please follow up with the primary care doctor in 7-10 days. If you are unable to urinate please return to this ED. documented in this encounter ED Notes * Shell Phillip RN - 05/26/2023 5:41 PM EST Pt comes in asking to have his urinary catheter removed. States he was admitted to [facility] and had a bansal catheter placed at that point. Was to have it removed approximately 1 month ago and missed his follow up appointment. Pt denies any complaints. Denies any fevers or chills Pt reports his BP does run low normally. documented in this encounter Miscellaneous Notes * ED Septic Cleaner Note - Bean Baxter RN - 05/26/2023 6:58 PM EST Reviewed discharge instructions with patient, who verbalized understanding. Ambulated out of ED with steady gait. FLACC 0. * ED Septic Cleaner Note - Jyothi Layton RN - 05/26/2023 6:45 PM EST Patient urinated approx 15 mL of urine. Denies any burning. It is clear yellow. * ED Septic Cleaner Note - Bean Baxter RN - 05/26/2023 6:27 PM EST Bansal catheter removed per providers orders. Tolerated well. Will continue to monitor. documented in this encounter Plan of Treatment Upcoming Encounters Date Type Department Care Team (Late st Contact Info) Description 06/22/2023 4:20 PM [facility] [address] [place] [address] Angy Miller MD [address] [place] [address] Health Maintenance Due Date Last Done Comments DISCUSS TOBACCO CESSATION (REFER TO SMARTSET #[id number]) 1987 Pneumococcal Vaccine: Pediatrics (0 to 5 Years) and At-Risk Patients (6 to 64 Years) (1 of 2 - PCV) 1993 Hepatitis B (1 of 3 - 19+ 3-dose series) 2006 Albumin/Creatinine Ratio 11/01/2022 11/01/2021 COVID-19 Vaccine ( season) 2022 Influenza Vaccine (FLU shot) (#1) [...] as of this encounter Visit Diagnoses Diagnosis Encounter for Bansal catheter removal- Primary Fitting and adjustment of urinary device documented in this encounter Advance Directives Latest [...] the patient have Health Care Power of Production Consultant? No Full Code 12/25/2021 1:35 PM 01/06/2022 6:52 PM This order reflects the patients wishes and were consensually agreed upon. Question Answer Comments Discussion of Advance Directives occurred with: Family Does the patient have a Living Will? No Does the patient have Health Care Power of Production Consultant? No Care Teams Director Religious Education Relationship Specialty Start Date End Date Av Graves MD [address] [id number] PCP - General Family Medicine 06/27/22 documented as of this encounter
--- OUTSIDE RECORDS SUMMARY | 2023-06-08 20:23 | External Medical Summary | Summary of Care ---
Author Name Unknown Organization [facility] Address [address] [place] [address] Phone [phone] Care Team Providers Care Floral Design Teacher Name Role Phone Jerzy Wayne MD Primary Care Provider [phone] Reason for Visit * Reason Comments eRx-Medication Refill Encounter Details Date Type Department Care Team (Late st Contact Info) Description 05/30/2023 Refill [facility] [address] [place] [address] Jerzy Wayne MD [address] [place], [place] [phone] Allergies No known active allergiesdocumented as of this encounter (statuses as of 05/31/2023) Medications Medication Sig Dispensed Refills Start Date End Date Status Methadone HCl 10 MG/ML Oral Concentrate Take 10.7 mL by mouth in the morning. 0 2 Active Nicotine 14 MG/24HR Transdermal Patch 24 Hour (Nicoderm CQ) Place 1 Patch over 24 hours topically on the skin in the morning. 0 3 Active Additional Information Patient not taking.Reported on 02/05/2023 Nutrisource Fiber Oral Packet Take 1 Packet by mouth in the morning. 14 Packet 0 3 Active Additional Information Patient not taking.Reported on 02/05/2023 QUEtiapine Fumarate 200 MG Oral Tablet (SEROquel)Indicatio ns:Bipolar 1 disorder, depressed (HCC) Take 1 Tablet by mouth at bedtime. 14 Tablet 0 3 Active ProAir HFA 108 (90 Base) MCG/ACT Inhalation Aerosol Solution Inhale 2 Puffs by mouth every 4 hours as needed for Wheezing. 18 g 1 3 Active Gabapentin 300 MG Oral Capsule (Neurontin) Take 1 Capsule by mouth in the morning and 1 Capsule at noon and 1 Capsule before bedtime. 90 Capsule 5 4 Active Insulin Aspart 100 UNIT/ML Subcutaneous Solution Pen-injector (novoLOG)Indication s:Type 1 diabetes mellitus with hemoglobin A1c goal of less than 8.0% ([facility]) Inject 0-12 Units under the skin 4 times a day. 15 mL 4 Active Lantus SoloStar 100 UNIT/ML Subcutaneous Solution Pen-injectorIndicat ions:Type 1 diabetes mellitus with hemoglobin A1c goal of less than 8.0% ([facility]) Inject 18 Units under the skin at bedtime. 15 mL 4 Active Levothyroxine Sodium 88 MCG Oral Tablet (Levoxyl)Indication s:Acquired hypothyroidism Take 1 Tablet by mouth daily first thing in the morning. 30 Tablet 4 Active Midodrine HCl 10 MG Oral Tablet (Proamatine)Indicat ions:Orthostatic hypotension Take 1 Tablet by mouth in the morning and 1 Tablet at noon and 1 Tablet before bedtime. 90 Tablet 4 Active OneTouch Delica Plus [id number] s:Type 1 diabetes mellitus with hemoglobin A1c goal of less than 8.0% ([facility]) test blood sugars FOUR TIMES DAILY E10.9 100 Each 4 Active OneTouch Verio In Vitro Strip (Glucose Blood)Indications:T ype 1 diabetes mellitus with hemoglobin A1c goal of less than 8.0% ([facility]) Use up to 4 times a day E10.9 100 Strip 4 Active Sertraline HCl 100 MG Oral Tablet (Zoloft)Indications :Depression, major, recurrent, moderate (HCC) Take 1 Tablet by mouth in the morning. 30 Tablet 4 Active Sertraline HCl 25 MG Oral Tablet (Zoloft)Indications :Depression, major, recurrent, moderate (HCC) Take 1 Tablet by mouth in the morning. With 100mg tablet for 125mg total dose. 30 Tablet 5 4 Active OneTouch Verio w/Device KitIndications:Type 1 diabetes mellitus with hemoglobin A1c goal of less than 8.0% (HCC) Use up to 4 times a day E10.9 1 Kit 0 4 Active Mirtazapine 15 MG Oral Tablet (Remeron) TAKE 1 TABLET BY MOUTH AT bedtime 30 Tablet 1 4 Active BD Pen Needle Mini U/F 31G X 5 MM (Insulin Pen Needle)Indications: Type 1 diabetes mellitus with hemoglobin A1c goal of less than 8.0% (HCC) USE THREE TIMES DAILY WITH HUMALOG KWIK PEN E10.9 300 Each 1 4 Active Mirtazapine 15 MG Oral Tablet (Remeron) Take 1 Tablet by mouth at bedtime. 30 Tablet 1 4 05/31/19 24 Discontinued documented as of this encounter (statuses as of 05/31/2023) Active Problems Problem Noted Date Diagnosed Date [...] as of this encounter (statuses as of 05/31/2023) Resolved Problems Problem Noted Date Diagnosed Date [...] as of this encounter (statuses as of 05/31/2023) Immunizations Name Administration Dates Next Due Seasonal [...] encounter Miscellaneous Notes * Telephone Encounter - Francisco Hopkins, [facility] - 05/31/2023 4:05 PM EDTSigned Prescriptions: Disp Refills Mirtazapine 15 MG Oral Tablet (Remeron) 30 Tab*1 Sig: TAKE 1 TABLET BY MOUTH AT bedtimeAuthorizing Provider: JERZY WAYNE User: FRANCISCO ENGLAND---- documented in this encounter Plan of Treatment Upcoming Encounters Date Type Department Care Team (Late st Contact Info) Description 06/22/2023 4:20 PM EDT Telemedicine Neurology, [place] [address] [place] [address] Angy Miller MD [address] [place] [address] 06/25/2023 12:00 PM EDT Office Visit [facility] [address] [place] [address] Jerzy Wayne MD [address] [place] [address] Health Maintenance Due Date Last Done Comments DISCUSS TOBACCO CESSATION (REFER TO SMARTSET #1501) 1987 Pneumococcal Vaccine: Pediatrics (0 to 5 [...] the patient have Health Care Power of Events And Promotions Assistant? No Full Code 12/25/2021 1:35 PM 01/06/2022 6:52 PM This order reflects the patients wishes and were consensually agreed upon. Question Answer Comments Discussion of Advance Directives occurred with: Family Does the patient have a Living Will? No Does the patient have Health Care Power of Events And Promotions Assistant? No Care Teams Floral Design Teacher Relationship Specialty Start Date End Date Jerzy Wayne MD [address] [id number] PCP - General Family Medicine 06/27/22 documented as of this encounter
--- OUTSIDE RECORDS SUMMARY | 2023-06-08 20:23 | External Medical Summary | Summary of Care ---
Author Name Unknown Organization [facility] Address [address] [place] [address] Phone [phone] Care Team Providers Care Database Admin Name Role Phone Av Graves MD Primary Care Provider [phone] Reason for Visit * Reason Onset Date Comments Med Request 05/02/2023 Left message 04/19 4 Encounter Details Date Type Department Care Team (Late st Contact Info) Description 05/02/2023 Telephone [facility] [address] [facility] [place] [address] Av Graves MD [address] [place] [address] Med Request (Left message 05/02) Allergies No known active allergiesdocumented as of this encounter (statuses as of 05/02/2023) Medications Medication Sig Dispensed Refills Start Date End Date Status Methadone HCl 10 MG/ML Oral Concentrate Take 10.7 mL by mouth in the morning. 0 11/01/2021 Active BD Pen Needle Mini U/F 31G X 5 MM (Insulin Pen Needle)Indications:T ype 1 diabetes mellitus with hemoglobin A1c goal of less than 8.0% ([facility]) USE THREE TIMES DAILY WITH [...] 90 Tablet 03/28/2023 Active OneTouch Delica Plus [id number] :Type 1 diabetes mellitus with hemoglobin A1c [...] as of this encounter (statuses as of 05/02/2023) Active Problems Problem Noted Date Diagnosed Date [...] as of this encounter (statuses as of 05/02/2023) Resolved Problems Problem Noted Date Diagnosed Date [...] as of this encounter (statuses as of 05/02/2023) Immunizations Name Administration Dates Next Due Seasonal [...] asking patient to return our call to [phone]. Rupert from [facility] is aware. Please relay Dr Graves's [...] Marlin Messer * Telephone Encounter - Ria Jc LPN - 05/02/2023 10:44 AM EST Did you pend patient's preferred pharmacy and medication before forwarding?yes [facility]acy[facility] Pending Prescriptions: Disp Refills BD Pen Needle [...] this therapy for the patient. Thank you, aSbina Garza Scalp Specialist [facility] ([facility]) (Formerly Telepharmacy) 05/02/2023,10:00 AM documented in this encounter Plan of Treatment Upcoming Encounters Date Type Department Care Team (Late st Contact Info) Description 06/22/2023 4:20 PM EDT Telemedicine Neurology, [place] [address] [place] [address] Angy Miller MD [address] [place] [address] Health Maintenance Due Date Last Done Comments DISCUSS TOBACCO CESSATION (REFER TO SMARTSET #4866) 1987 Hepatitis B (1 of 3 - [...] less than 8.0% ([facility]) documented in this encounter Advance Directives Latest [...] the patient have Health Care Power of Barrow Worker Helper? No Full Code 12/25/2021 1:35 PM 01/06/2022 6:52 PM This order reflects the patients wishes and were consensually agreed upon. Question Answer Comments Discussion of Advance Directives occurred with: Family Does the patient have a Living Will? No Does the patient have Health Care Power of Barrow Worker Helper? No Care Teams Database Admin Relationship Specialty Start Date End Date Av Graves MD [address] [address] PCP - General Family Medicine 06/27/22 documented as of this encounter
--- OUTSIDE RECORDS SUMMARY | 2023-06-08 20:23 | External Medical Summary | Summary of Care ---
Author Name Unknown Organization [facility] Address [address] [place] [address] Phone [phone] Care Team Providers Care Pickle Water Pump Operator Name Role Phone Av Graves MD Primary Care Provider [phone] Reason for Visit * Reason Onset Date Comments Medication Refill 05/30/2023 Encounter Details Date Type Department Care Team (Late st Contact Info) Description 05/30/2023 Telephone [facility] [address] [place] [address] Av Graves MD [address] [place], [place] [id number] Medication Refill Allergies No known active allergiesdocumented as of this encounter (statuses as of 05/30/2023) Medications Medication Sig Dispensed Refills Start Date End Date Status Methadone HCl 10 MG/ML Oral Concentrate Take 10.7 mL by mouth in the morning. 0 11/01/2021 Active Nicotine 14 MG/24HR Transdermal Patch 24 [...] than 8.0% ([facility]) Inject 0-12 Units under the skin 4 times a day. 15 mL 03/28/2023 Active Lantus SoloStar 100 UNIT/ML Subcutaneous Solution Pen-injectorIndicat ions:Type 1 diabetes mellitus with hemoglobin A1c goal of less than 8.0% ([facility]) Inject 18 Units under the skin [...] 90 Tablet 03/28/2023 Active OneTouch Delica Plus [id number] s:Type 1 diabetes mellitus with hemoglobin A1c goal of less than 8.0% ([facility]) test blood sugars FOUR TIMES DAILY [...] day E10.9 1 Kit 0 04/12/2023 Active BD Pen Needle Mini U/F 31G X 5 MM (Insulin Pen Needle)Indications: Type 1 diabetes mellitus with hemoglobin A1c goal of less than 8.0% ([facility]) USE THREE TIMES DAILY WITH HUMALOG KWIK PEN E10.9 300 Each 1 05/30/2023 Active BD Pen Needle Mini U/F 31G X 5 MM (Insulin Pen Needle)Indications: Type 1 diabetes mellitus with hemoglobin A1c goal of less than 8.0% (HCC) USE THREE TIMES DAILY WITH HUMALOG KWIK PEN E10.9 100 Each 0 12/13/2022 Discontinu ed(Refill) documented as of this encounter (statuses as of 05/30/2023) Active Problems Problem Noted Date Diagnosed Date [...] as of this encounter (statuses as of 05/30/2023) Resolved Problems Problem Noted Date Diagnosed Date [...] as of this encounter (statuses as of 05/30/2023) Immunizations Name Administration Dates Next Due Seasonal [...] encounter Miscellaneous Notes * Telephone Encounter - Brooke Colbert, [facility] - 05/30/2023 1:18 PM EDT Needs address updated in order to e-scribe - called pt and s/w Calli who will have pt call back later. If pt returns call, please transfer to me. If I am not available, please transfer to the next available [facility]. Rx faxed in interim. Thank you, Brooke Colbert PharmD Clinical Pharmacist [facility] ([facility]) (formerly Telepharmacy) 05/30/23 1:20 PM [phone] * Telephone Encounter - Jevon Andres PHARM Tech - 05/30/2023 1:09 PM EDT Pt's calling to request refill for pen needle tips. Caller stating pt has been reusing the same one. Did you pend patient's preferred pharmacy and medication before forwarding?yes [facility] [address] [place] [address] Pending Prescriptions: Disp Refills BD Pen Needle Mini U/F 31G X 5 MM (Insuli*100 Ea*0 Sig: USE THREE TIMES DAILY WITH HUMALOG KWIK PEN E10.9 Last Visit: 02/05/2023 (in office), 02/04/2021 (telemedicine) Next Visit: 06/25/2023 If no future appointments scheduled, and last appointment is greater than a year ago, please schedule patient for a follow-up appointment Last date the medication was ordered: 12/13/2022 Is this request for a controlled substance?No [...] UPON REQUEST. CUTOFF CONCENTRATION Patient Phone Numbers [facility] [phone] [facility] [phone] Labs: Lab Results Component Value Date/Time CREAT [...] Description 06/22/2023 4:20 PM EDT Telemedicine Neurology, [place] [address] [place] [address] Angy Miller MD [address] [place], [place] [id number] 06/25/2023 12:00 PM EDT Office Visit [facility] [place] [address] Av Graves MD [address] [place] [address] Health Maintenance Due Date Last Done Comments DISCUSS TOBACCO CESSATION (REFER TO SMARTSET #[id number]) 1987 Pneumococcal Vaccine: Pediatrics (0 to 5 Years) and At-Risk Patients (6 to 64 Years) (1 of 2 - PCV) 1993 Hepatitis B (1 of 3 - 19+ 3-dose series) 2006 Albumin/Creatinine Ratio 11/01/2022 11/01/2021 COVID-19 Vaccine ( - season) 2022 Influenza Vaccine (FLU shot) (#1) [...] the patient have Health Care Power of Senior Manager Mmcoe? No Full Code 12/25/2021 1:35 PM 01/06/2022 6:52 PM This order reflects the patients wishes and were consensually agreed upon. Question Answer Comments Discussion of Advance Directives occurred with: Family Does the patient have a Living Will? No Does the patient have Health Care Power of Senior Manager Mmcoe? No Care Teams Pickle Water Pump Operator Relationship Specialty Start Date End Date Av Graves MD [address] [id number] PCP - General Family Medicine 06/27/22 documented as of this encounter
--- OUTSIDE RECORDS SUMMARY | 2023-06-08 20:23 | External Medical Summary | Summary of Care ---
Author Name Unknown Organization [facility] Address [address] [place] [address] Phone [phone] Care Team Providers Care Associate Creative Director Name Role Phone Av Graves MD Primary Care Provider [phone] Reason for Visit * Reason Onset Date Comments Med Request 05/02/202305/02 Encounter Details Date Type Department Care Team (Late st Contact Info) Description 05/02/2023 Telephone [facility] 21 [facility] [place] [address] Av Graves MD 21 [facility] [place] [address] Med Request (05/02) Allergies No known active allergiesdocumented as of [...] goal of less than 8.0% ([facility]) USE THREE TIMES DAILY WITH HUMALOG [...] 90 Tablet 03/28/2023 Active OneTouch Delica Plus [id number] :Type 1 diabetes mellitus with hemoglobin A1c [...] pharmacy and medication before forwarding?yes [facility]: [facility] [place] [place] Pending Prescriptions: Disp Refills BD Pen Needle [...] for the patient. Thank you, Sabina Garza Branch Associate Teller [facility] ([facility]) (Formerly Telepharmacy) 05/02/2023,10:00 AM documented in this encounter Plan of Treatment Upcoming Encounters Date Type Department Care Team (Late st Contact Info) Description 06/22/2023 4:20 PM EDT Telemedicine Neurology[address] [address] Angy Miller MD [address] [place] [address] Health Maintenance Due Date Last Done Comments DISCUSS TOBACCO CESSATION (REFER TO SMARTSET #[id number]) 1987 Hepatitis B (1 of 3 - [...] the patient have Health Care Power of Planning Technician? No Full Code 12/25/2021 1:35 PM 01/06/2022 6:52 PM This order reflects the patients wishes and were consensually agreed upon. Question Answer Comments Discussion of Advance Directives occurred with: Family Does the patient have a Living Will? No Does the patient have Health Care Power of Planning Technician? No Care Teams Associate Creative Director Relationship Specialty Start Date End Date Av Graves MD [address] [id number] PCP - General Family Medicine 06/27/22 documented as of this encounter
--- OUTSIDE RECORDS SUMMARY | 2023-06-08 20:23 | External Medical Summary | Summary of Care ---
Author Name Unknown Organization [facility] Address [address] [place] [address] Phone [phone] Care Team Providers Care Plastic Top Assembler Name Role Phone Av Graves MD Primary Care Provider [phone] Reason for Visit * Reason Onset Date Comments Hospital Follow-Up 04/24/2023 [facility] 04/23 Encounter Details Date Type Department Care Team (Late st Contact Info) Description 04/24/2023 Telephone Ancillary 1st Floor, [place] [address] [place] [address] Kiki Patel, RN Hospital Follow-Up ([facility] 04/23) Allergies No known active allergiesdocumented as of this encounter (statuses as of 04/25/2023) Medications Medication Sig Dispensed Refills Start Date [...] of less than 8.0% ([facility]) Inject 0-12 Units under the skin 4 times a day. 15 mL 03/28/2023 Active Lantus SoloStar 100 UNIT/ML Subcutaneous Solution Pen-injectorIndicati ons:Type 1 diabetes mellitus with hemoglobin A1c goal of less than 8.0% ([facility]) Inject 18 Units under the [...] 90 Tablet 03/28/2023 Active OneTouch Delica Plus [id number] :Type 1 diabetes mellitus with hemoglobin A1c [...] as of this encounter (statuses as of 04/25/2023) Active Problems Problem Noted Date Diagnosed Date [...] as of this encounter (statuses as of 04/25/2023) Resolved Problems Problem Noted Date Diagnosed Date [...] as of this encounter (statuses as of 04/25/2023) Immunizations Name Administration Dates Next Due Seasonal [...] encounter Miscellaneous Notes * Telephone Encounter - Kiki Patel RN - 04/25/2023 12:32 PM EST Transitions of Care Note Reason for Referral:Recent Admission Phone visit for follow up: NA Admitted to: [facility], Date: 04/19 Discharged to: home, Date: 04/23 Diagnosis driving hospitalization: change in mental status - improved Acute urinary retention hypothryoidism Call went straight to voicemail again. He identified himself on the voicemail so reminded him of his upcoming hospital follow up appt with Dr Graves and to call if he has any questions. * Telephone Encounter - Kiki Patel RN - 04/24/2023 12:46 PM EST Transitions of Care Note Reason for Referral:Recent Admission Phone visit for follow up: NA Admitted to: [facility], Date: 04/19 Discharged to: home, Date: 04/23 Diagnosis driving hospitalization: change in mental status - improved Acute urinary retention hypothryoidism Message left on voicemail. If he reaches the call center he can be transferred to mo at [phone]. Thank you. documented in this encounter Plan of Treatment Upcoming Encounters Date Type Department Care Team (Late st Contact Info) Description 04/30/2023 3:00 PM EST Office Visit [facility] 21 [facility] [place] [phone] Av Graves MD 21 [facility] [place] [id number] 06/22/2023 4:20 PM EDT Telemedicine Neurology, [place] [address] [place] [address] Angy Miller MD [address] [place] [address] Health Maintenance Due Date Last Done Comments DISCUSS TOBACCO CESSATION (REFER TO SMARTSET #[id number]) 1987 Hepatitis B (1 of 3 - [...] the patient have Health Care Power of Karate Black Belt? No Full Code 12/25/2021 1:35 PM 01/06/2022 6:52 PM This order reflects the patients wishes and were consensually agreed upon. Question Answer Comments Discussion of Advance Directives occurred with: Family Does the patient have a Living Will? No Does the patient have Health Care Power of Karate Black Belt? No Care Teams Plastic Top Assembler Relationship Specialty Start Date End Date Av Graves MD [address] [id number] PCP - General Family Medicine 06/27/22 documented as of this encounter
[2023-06-08] MEDS: LANTUS PER UNIT CHARGE SQ SCH (20:57)
[2023-06-08] MEDS: VANCOMYCIN HCL 500 MG in NSS 100mL IV SCH (21:59)
[2023-06-08] MEDS: LANTUS PER UNIT CHARGE SQ STA (22:00)
[2023-06-09] MEDS: INSULIN ASPART PER UNIT CHARGE SC SCH (00:18)
[2023-06-09 05:53] LABS: Appearance Urine Cloudy (Clear); Bilirubin Urine Negative (Negative); Blood Urine Trace (Negative); Color Urine Yellow; Glucose Urine UA 3+ (Negative); Ketones Urine Trace (Negative); Leukocyte Esterase Urine 2+ (Negative); Nitrite Urine Positive (Negative); Protein Urine 1+ (Negative); RBC Urine Automated 0-4 /hpf (0-4); Specific Gravity Urine 1.018 (1.000-1.030); Urobilinogen Urine Negative (Negative); WBC Urine Automated >30 /hpf (0-5)
[2023-06-09 06:10] LABS: Amphetamines+Metham, Urine Pos (Neg); Barbiturates, Urine Neg (Neg); Benzodiazepine, Urine Neg (Neg); Cocaine, Urine Neg (Neg); MDMA (Ecstacy), Urine Neg (Neg); Marijuana, Urine Neg (Neg); Methadone, Urine Pos (Neg); Opiate, Urine Neg (Neg); Phencyclidine, Urine Neg (Neg)
[2023-06-09] MEDS: LEVOTHYROXINE SODIUM 88 MCG TABLET PO SCH (06:12)
[2023-06-09 06:50] LABS: Amorphous Sediment Urine Present (None Prsent); Bacteria Urine Automated 2+ (Negative)
[2023-06-09 07:32] LABS: Hematocrit (blood only) 26.8 % (42.0-52.0); Hemoglobin 9.1 g/dl (14.0-18.0); Mean Corpuscular Hemoglobin 29.9 pg (25.0-34.0); Mean Corpuscular Volume 88.2 fL (80.0-100.0); Mean Platelet Volume 9.2 fL (9.4-12.4); Platelet Count 284 K/uL (130-400); RDW Coefficient of Variation 13.5 % (11.5-14.5); Red Blood Count 3.04 M/uL (4.70-6.10); White Blood Count 8.25 K/ul (4.8-10.8)
[2023-06-09] MEDS ORDERED: PHARMACY GLYCEMIC MGMT CONSULT PRN (07:32)
[2023-06-09 07:54] LABS: INR 1.6 (0.9-1.1); Prothrombin Time 17.3 Seconds (9.0-12.0)
[2023-06-09 08:00] LABS: Calcium 7.7 mg/dl (8.6-10.3); Creatinine Clr Calc Pharmacy 72.5 ml/min; Est GFR (African American) 111.7 ml/min; Est GFR (Non-African American) 96.4 ml/min; Magnesium 1.9 mg/dl (1.7-2.4); Potassium 3.4 mmol/L (3.5-5.1)
[2023-06-09] MEDS: ADVANCED PROBIOTIC 625 MG CAPSULE PO SCH (08:05)
[2023-06-09] MEDS: DOXYCYCLINE HYCLATE 100 MG CAP PO SCH (08:05)
[2023-06-09 08:24] LABS: Estimated Average Glucose 275 mg/dl; Hemoglobin A1C 11.2 % (4.5-5.6)
--- NOTE | 2023-06-09 08:25 | Pharmacy Report ---
Pharmacy Glycemic Short Note 2 - Date of Service June 09, 2023 - Glycemic Short BSG Results (Last 24 hours): 06/08/23 06/08/23 06/08/23 09:15 16:02 20:33 Glucose 270 H POC Glucose 329 H* 333 H* 06/08/23 06/08/23 06/09/23 20:34 23:38 06:59 Glucose 74 POC Glucose 354 H* 293 H 06/09/23 06/09/23 07:41 08:04 Glucose POC Glucose 68 L* 101 H OUTPATIENT ANTIDIABETIC REGIMEN: * Lantus 18 units HS * Novolog 0 -12 units QID * A1c 10.7% 04/20/23, repeat A1c pending ASSESSMENT: * 38 y/o male with poorly controlled DM1, hypothyroidism, bipolar disorder, hx opioid use now on methadone, methamphetamine use last wk, tobacco use, admitted with multifocal pneumonia and influenza A, on IV antibiotics + Tamiflu. * Patient received 15 units of Lantus last night for BSGs in 300s, now BSG 68mg/dl this AM due to excess basal. Reduce basal dose tonight and continue NovoLog, titrate to goal BSG. Consider increasing bottom of goal range if another hypoglycemia episode occurs. PLAN FOR INPATIENT GLYCEMIC CONTROL: * Basal insulin * Lantus 6 SQ HS (or 8 units for BSG > 180mg/dl) * Bolus insulin * NovoLog per scale ACHS or Q6hrs while NPO * Goal Range: Low 110 mg/dL - High 140 mg/dL * Correction Factor: 30 mg/dL/unit * Nutritional / Prandial insulin per carb ratio of 1 unit per 15 grams CHO consumed
[2023-06-09] MEDS: METHADONE ORAL SOLN 2 MG/ML PO SCH (08:37)
[2023-06-09] MEDS: PATIENT'S OWN CONTROLLED MED 1 PO SCH (08:37)
[2023-06-09] MEDS ORDERED: METHADONE ORAL SOLN 2 MG/ML PO SCH (09:00)
[2023-06-09] MEDS: OSELTAMIVIR PHOSPHATE 75 MG CAP PO SCH (09:55)
--- NOTE | 2023-06-09 17:13 | Hospitalist Progress Note ---
Date of Service June 09, 2023 Assessment & Plan (1) Multifocal pneumonia: Plan: This is a 38 y/o male with poorly controlled DM1, hypothyroidism, bipolar disorder, hx opioid use now on methadone, methamphetamine use, tobacco use, and other history as outlined who presents to the ED from the methadone clinic with weakness and shortness of breath. Work-up in the ED revealed a multifocal pneumonia and influenza A. VBG showed mild acidosis and elevated pCO2. Initial hypotension corrected with ~2L of IVF and hypoxia is improved on 2L of O2. Also noted to have slight worsening of chronic anemia. - Admit to PCU - Broad-spectrum antibiotic coverage - Zosyn started in the ED, will add Vanco due to multiple hospitalizations, hx meth use sporadically, reusing insulin needles at times - Check MRSA swab - Check ABG due to abnormal VBG - Sputum culture - Iron studies for anemia 06/08 Clinically improving On room air now Follow-up cultures Added Tamiflu Added doxycycline for atypical coverage Continue vancomycin plus Zosyn (2) Influenza A: Plan: 06/08 In light of patient's clinical presentation including hypoxia, multifocal pneumonia, in the setting of diabetes type 1 Started Tamiflu twice daily (3) Acute hypoxemic respiratory failure: Plan: See plan for #1 Continue O2 as required to maintain sat of at least 92% 06/08 Improving Added incentive spirometer and flutter valve (4) Hypomagnesemia: Plan: Replete IV - will give additional 2g mag sulfate and recheck in the AM Replaced (5) Methadone use: Plan: Continue outpatient dosing (6) Diabetes type I: Plan: Poorly controlled in the past Will continue basal insulin with sliding scale A1c in the AM Consider glycemic pharmacy consult pending clinical course A1c 11.2 Pharmacy glycemic control service consult (7) Hypothyroidism: Plan: Chronic, has missed some doses of meds over the last couple of months due to difficulty obtaining Continue levothyroxine at current dose (8) Methamphetamine use: Plan: Check UDS - pt reports last use of meth was last week (9) Elevated INR: Plan: Outpatient labs reviewed - INR has been elevated at least since 2022 but it is unclear if this has ever been worked up. Check PTT, mixing study 05/11 Positive mixing study Will discuss with hematology (10) Severe protein-calorie malnutrition: Plan: Pt reports ~100 lb wt loss over the last couple of years Consult reel and rewinder operator for assistance Plan Code status: full code DVT prophylaxis: SCDs for now due to work-up of prolonged PT/INR Admission and Anticipated Discharge Date Admission Date: June 08, 2023 Subjective Follow-up for multifocal pneumonia, influenza A, etc. Seen resting in bed, sleeping but easily awake Comfortable, not in distress States he feels improved compared to yesterday Breathing is improving but still feeling congested Still having some cough No fevers or chills No abdominal pain, nausea vomiting No other new symptoms Review of Systems Review of Systems: all noted and negative except for above Physical Exam Physical Exam: General- oriented x 3, not in distress, speaks in sentences with no effort or a ccessory muscle use Appears somewhat weak Under nourished next Eyes- anicteric Neck- no JVD Lungs-positive crackles bilaterally No wheezing Heart- normal rate, regular rhythm; no murmurs Abdomen- normal bowel sounds, nondistended, soft, nontender Extremities- no pretibial edema, no calf tenderness Neuro- alert, oriented x 3; no gross focal neurologic deficits Skin- warm & dry Results & Data Results & Data Vital Signs (Past 12 Hours) Vital Signs Temp Pulse Resp BP Pulse Ox O2 Del Method O2 Flow Rate 06/09/23 16:17 36.7 C 94 H 18 95/60 L 94 Nasal Cannula 1 06/09/23 11:32 36.3 C L 94 H 20 91/51 L 91 Room Air 06/09/23 08:16 Nasal Cannula 2 06/09/23 07:58 36.5 C 97 H 18 84/64 L 92 Room Air all noted and reviewed including below (6) Diabetes type I Diabetes mellitus complication status: with other specified complication Qualified Code(s): E10.69 - Type 1 diabetes mellitus with other specified co mplication (7) Hypothyroidism Hypothyroidism type: unspecified Qualified Code(s): E03.9 - Hypothyroidism, unspecified
[2023-06-09] MEDS: POTASSIUM CHLORIDE CRTAB 20 MEQ TABCR PO STA (17:53)
[2023-06-09] MEDS ORDERED: LANTUS PER UNIT CHARGE SQ SCH (21:00)
[2023-06-09] MEDS: LANTUS PER UNIT CHARGE SQ SCH (21:30)
[2023-06-10] MEDS: CARBOHYDRATES FOR HYPOGLYCEMIA PO PRN (05:42)
[2023-06-10] MEDS: VANCOMYCIN LEVEL ONE (06:15)
[2023-06-10 06:20] LABS: Basophils # (auto) 0.03 K/uL (0.00-0.20); Basophils % (auto) 0.3 %; Eosinophils # (auto) 0.06 K/uL (0.00-0.50); Eosinophils % (auto) 0.7 %; Hematocrit (blood only) 30.2 % (42.0-52.0); Hemoglobin 9.8 g/dl (14.0-18.0); Immature Granulocytes # (auto) 0.07 K/uL (0.01-0.20); Immature Granulocytes % (auto) 0.8 %; Lymphocytes # (auto) 2.03 K/uL (1.20-3.40); Lymphocytes % (auto) 22.6 %; Mean Corpuscular Hemoglobin 29.3 pg (25.0-34.0); Mean Corpuscular Hgb Conc 32.5 g/dL (32.0-36.0); Mean Corpuscular Volume 90.4 fL (80.0-100.0); Mean Platelet Volume 9.2 fL (9.4-12.4); Monocytes # (auto) 0.35 K/uL (0.11-0.59); Monocytes % (auto) 3.9 %; Neutrophils # (auto) 6.46 K/uL (1.40-6.50); Neutrophils % (auto) 71.7 %; Platelet Count 339 K/uL (130-400); RDW Coefficient of Variation 13.9 % (11.5-14.5); RDW Standard Deviation 46.3 fL (36.4-46.3); Red Blood Count 3.34 M/uL (4.70-6.10)
[2023-06-10 06:46] LABS: BUN Creatinine Ratio 14.1 (10-20); Creatinine Clr Calc Pharmacy 75.3 ml/min; Est GFR (African American) 113.1 ml/min; Est GFR (Non-African American) 97.6 ml/min; Magnesium 1.6 mg/dl (1.7-2.4); Potassium 3.4 mmol/L (3.5-5.1)
--- NOTE | 2023-06-10 08:26 | Pharmacy Report ---
Pharmacy Glycemic Short Note 2 - Date of Service June 10, 2023 - Glycemic Short BSG Results (Last 24 hours): 06/09/23 06/09/23 06/09/23 11:28 16:00 20:38 Glucose POC Glucose 150 H 130 H 102 H 06/10/23 06/10/23 06/10/23 05:33 05:33 05:47 Glucose 35 L* POC Glucose 39 L* 39 L* 06/10/23 06/10/23 06/10/23 06:06 06:39 07:46 Glucose POC Glucose 63 L* 138 H 118 H OUTPATIENT ANTIDIABETIC REGIMEN: * Lantus 18 units HS * Novolog 0 -12 units QID * A1c 10.7% 04/20/23, 11.2% 06/09/23 ASSESSMENT: 06/09 * Blood sugars well controlled yesterday until early this AM, severe hypoglyc emia episode, even though patient only received 6 units Lantus last night. * Patient with minimal PO intake. Will HOLD Basal tonight and utilize NovoLog only with an extra check overnight to prevent another hypoglycemia episode. * Also change goal range and loosen CF/CR. 06/08 * 38 y/o male with poorly controlled DM1, hypothyroidism, bipolar disorder, hx opioid use now on methadone, methamphetamine use last wk, tobacco use, admitted with multifocal pneumonia and influenza A, on IV antibiotics + Tamiflu. * Patient received 15 units of Lantus last night for BSGs in 300s, now BSG 68mg/dl this AM due to excess basal. Reduce basal dose tonight and continue NovoLog, titrate to goal BSG. Consider increasing bottom of goal range if another hypoglycemia episode occurs. PLAN FOR INPATIENT GLYCEMIC CONTROL: * Basal insulin * Lantus 6 SQ HS (or 8 units for BSG > 180mg/dl) - HOLD on 06/09 - reassess 06/10 * Bolus insulin * NovoLog per scale ACHS or Q6hrs while NPO + additional check tonight at 0200 * Goal Range: Low 120 mg/dL - High 150 mg/dL * Correction Factor: 40 mg/dL/unit * Nutritional / Prandial insulin per carb ratio of 1 unit per 20 grams CHO consumed
--- NOTE | 2023-06-10 09:38 | Pharmacy Report ---
Pharmacy PK ABX Note - Date of Service June 10, 2023 - Assessment and Plan Assessment 06/09: Continues on vancomycin + zosyn -- day # 3 vanc. Renal function stable. Blood cultures NGTD. MRSA nasal (-)- attempted de-escalation for pulm coverage however primary team wanted to extend due to concern for possible bacteremia. 38 year old M receiving Zosyn/vancomycin for treatment of pneumonia. Pertinent microbiologic data includes: MRSA Nasal Swab pending, blood cultures pending. Day # 1 of antimicrobial therapy. Plan Vancomycin * Current regimen: 500mg IV q8h * Trough level this AM (~ 7.5h level), 17.9mcg/mL. Predicted to achieve ssAUC 537mg/L.hr- therapeutic. * Continue vanc 500mg IV q8h * Repeat level in ~ 48h if vanc continued. Pharmacy will continue to follow and will adjust dose/frequency as necessary. Thank you. Pharmacy has transitioned to AUC monitoring for vancomycin. AUC/DAISY is the preferred PK/PD target and is associated with decreased risk of nephrotoxicity compared to traditional trough targets.
[2023-06-10] MEDS: MAGNESIUM SULFATE / D5W 1 GM/100 ML BAG IV ONE (09:43)
[2023-06-10] MEDS: SODIUM CHLORIDE 0.9% 1,000 ML IV SCH (09:44)
[2023-06-10] MEDS: POTASSIUM CHLORIDE CRTAB 20 MEQ TABCR PO STA (09:44)
--- NOTE | 2023-06-10 15:00 | Hospitalist Progress Note ---
Date of Service June 10, 2023 Assessment & Plan (1) Multifocal pneumonia: Plan: This is a 38 y/o male with poorly controlled DM1, hypothyroidism, bipolar disorder, hx opioid use now on methadone, methamphetamine use, tobacco use, and other history as outlined who presents to the ED from the methadone clinic with weakness and shortness of breath. Work-up in the ED revealed a multifocal pneumonia and influenza A. VBG showed mild acidosis and elevated pCO2. Initial hypotension corrected with ~2L of IVF and hypoxia is improved on 2L of O2. Also noted to have slight worsening of chronic anemia. - Admit to PCU - Broad-spectrum antibiotic coverage - Zosyn started in the ED, will add Vanco due to multiple hospitalizations, hx meth use sporadically, reusing insulin needles at times - Check MRSA swab - Check ABG due to abnormal VBG - Sputum culture - Iron studies for anemia 06/08 Clinically improving On room air now Follow-up cultures Added Tamiflu Added doxycycline for atypical coverage Continue vancomycin plus Zosyn 06/09 Continues to improve Remains on room air Cultures negative so far Continue Tamiflu, doxycycline, Zosyn, vancomycin Add hypertonic saline Continue flutter valve, incentive spirometer (2) Influenza A: Plan: 06/09 In light of patient's clinical presentation including hypoxia, multifocal pneumonia, in the setting of diabetes type 1 Tamiflu twice daily (3) Acute hypoxemic respiratory failure: Plan: See plan for #1 Continue O2 as required to maintain sat of at least 92% 06/09 Improving incentive spirometer and flutter valve Added hypertonic saline (4) Hypomagnesemia: Plan: Replete IV - will give additional 2g mag sulfate and recheck in the AM Replaced (5) Methadone use: Plan: Continue outpatient dosing (6) Diabetes type I: Plan: Poorly controlled in the past Will continue basal insulin with sliding scale A1c in the AM Consider glycemic pharmacy consult pending clinical course A1c 11.2 Pharmacy glycemic control service consult (7) Hypothyroidism: Plan: Chronic, has missed some doses of meds over the last couple of months due to difficulty obtaining Continue levothyroxine at current dose (8) Methamphetamine use: Plan: Check UDS - pt reports last use of meth was last week (9) Elevated INR: Plan: Outpatient labs reviewed - INR has been elevated at least since 2022 but it is unclear if this has ever been worked up. Check PTT, mixing study 05/11 Positive mixing study Will discuss with hematology (10) Severe protein-calorie malnutrition: Plan: Pt reports ~100 lb wt loss over the last couple of years Consult template cutter for assistance Plan Code status: full code DVT prophylaxis: SCDs for now due to work-up of prolonged PT/INR Admission and Anticipated Discharge Date Admission Date: June 08, 2023 Subjective Follow-up for pneumonia, etc. Seen resting in bed, comfortable, not in distress Sitting up States he continues to feel improved overall Breathing is improving less cough, feels challenging to expectorate mucus No chest pain, fevers or chills No other new symptoms Review of Systems Review of Systems: all noted and negative except for above Physical Exam Physical Exam: General- oriented x 3, not in distress, speaks in sentences with no effort or accessory muscle use Eyes- anicteric Neck- no JVD Lungs-mild crackles bilaterally No wheezing Heart- normal rate, regular rhythm; no murmurs Abdomen- normal bowel sounds, nondistended, soft, no tenderness Extremities- no pretibial edema, no calf tenderness Neuro- alert, oriented x 3; no gross focal neurologic deficits Skin- warm & dry Results & Data Results & Data Vital Signs (Past 12 Hours) Vital Signs Temp Pulse Pulse Resp BP Pulse Ox O2 Del Method 06/10/23 14:49 74 06/10/23 11:27 36.5 C 88 20 102/65 95 Room Air 06/10/23 08:00 Room Air 06/10/23 08:00 88 06/10/23 07:53 36.9 C 88 19 100/62 91 Room Air 06/10/23 04:07 37.0 C 83 18 92/62 L 95 Nasal Cannula O2 Flow Rate 06/10/23 14:49 06/10/23 11:27 06/10/23 08:00 06/10/23 08:00 06/10/23 07:53 06/10/23 04:07 1.0 all noted and reviewed including below (6) Diabetes type I Diabetes mellitus complication status: with other specified complication Qualified Code(s): E10.69 - Type 1 diabetes mellitus with other specified complication (7) Hypothyroidism Hypothyroidism type: unspecified Qualified Code(s): E03.9 - Hypothyroidism, unspecified
[2023-06-10] MEDS: SODIUM CHLOR 7% 4 ML NEB NEB SCH (19:24)
[2023-06-11] MEDS: INSULIN ASPART PER UNIT CHARGE SC SCH (02:30)
[2023-06-11 07:32] LABS: Creatinine Clr Calc Pharmacy 67.9 ml/min; Est GFR (African American) 98.5 ml/min
[2023-06-11] MEDS: LANTUS PER UNIT CHARGE SC ONE (09:53)
[2023-06-11] MEDS: D5W AND NSS 1,000 ML IV SCH (09:53)
--- NOTE | 2023-06-11 10:03 | Pharmacy Report ---
Pharmacy Glycemic Short Note 2 - Date of Service June 11, 2023 - Glycemic Short BSG Results (Last 24 hours): 06/10/23 06/10/23 06/10/23 11:26 16:17 20:38 POC Glucose 125 H 72 72 06/11/23 06/11/23 06/11/23 02:27 07:25 07:26 POC Glucose 85 67 L* 70 OUTPATIENT ANTIDIABETIC REGIMEN: * Lantus 18 units HS * Novolog 0 -12 units QID HbA1c 10.7% 04/20/23, 11.2% 06/09/23 ASSESSMENT: 06/11/23: * Blood sugars on low-side throughout the day yesterday (low of 39 mg/dL yesterday AM) * Patient received 1 unit of insulin (no basal insulin yesterday) * Discussed case with hospitalist and given poor PO intake and > 24 hours without basal insulin, will initiate dextrose-containing maintenance fluids and give low-dose basal insulin this morning to prevent development of DKA * D5/NSS @75 mL/hr initiated, should follow potassium as hypokalemic yesterday * 36 grams CHO consumed at lunch -> BSG of 176 mg/dL, discussed again w/ hospitalist and will hold fluids for now and reassess at dinner 06/09 * Blood sugars well controlled yesterday until early this AM, severe hypoglycemia episode, even though patient only received 6 units Lantus last night. * Patient with minimal PO intake. Will HOLD Basal tonight and utilize NovoLog only with an extra check overnight to prevent another hypoglycemia episode. * Also change goal range and loosen CF/CR. 06/08 * 38 y/o male with poorly controlled DM1, hypothyroidism, bipolar disorder, hx opioid use now on methadone, methamphetamine use last wk, tobacco use, admitted with multifocal pneumonia and influenza A, on IV antibiotics + Tamiflu. * Patient received 15 units of Lantus last night for BSGs in 300s, now BSG 68mg/dl this AM due to excess basal. Reduce basal dose tonight and continue NovoLog, titrate to goal BSG. Consider increasing bottom of goal range if another hypoglycemia episode occurs. PLAN FOR INPATIENT GLYCEMIC CONTROL: * Basal insulin * Lantus 3 units SC x 1 * Bolus insulin * NovoLog per scale ACHS or Q6hrs while NPO + additional check tonight at 0200 * Goal Range: Low 120 mg/dL - High 150 mg/dL * Correction Factor: 40 mg/dL/unit * Nutritional / Prandial insulin per carb ratio of 1 unit per 20 grams CHO consumed
[2023-06-11 13:28] LABS: Amphetamine Urine, Confirm 347 ng/mL (<250); Methadone, Ur Metabolite >10000 ng/mL (<100); Methadone, Ur Verification >10000 ng/mL (<100); Methamphetamine, Ur Confirm 3850 ng/mL (<250)
--- NOTE | 2023-06-11 16:45 | Hospitalist Progress Note ---
Date of Service June 11, 2023 Assessment & Plan (1) Multifocal pneumonia: Plan: This is a 38 y/o male with poorly controlled DM1, hypothyroidism, bipolar disorder, hx opioid use now on methadone, methamphetamine use, tobacco use, and other history as outlined who presents to the ED from the methadone clinic with weakness and shortness of breath. Work-up in the ED revealed a multifocal pneumonia and influenza A. VBG showed mild acidosis and elevated pCO2. Initial hypotension corrected with ~2L of IVF and hypoxia is improved on 2L of O2. Also noted to have slight worsening of chronic anemia. - Admit to PCU - Broad-spectrum antibiotic coverage - Zosyn started in the ED, will add Vanco due to multiple hospitalizations, hx meth use sporadically, reusing insulin needles at times - Check MRSA swab - Check ABG due to abnormal VBG - Sputum culture - Iron studies for anemia 06/08 Clinically improving On room air now Follow-up cultures Added Tamiflu Added doxycycline for atypical coverage Continue vancomycin plus Zosyn 06/09 Continues to improve Remains on room air Cultures negative so far Continue Tamiflu, doxycycline, Zosyn, vancomycin Add hypertonic saline Continue flutter valve, incentive spirometer 06/10 Add Xopenex/Atrovent to improve pulmonary clearance Continue present regimen (2) Influenza A: Plan: 06/10 In light of patient's clinical presentation including hypoxia, multifocal pneumonia, in the setting of diabetes type 1 Tamiflu twice daily (3) Acute hypoxemic respiratory failure: Plan: See plan for #1 Continue O2 as required to maintain sat of at least 92% 06/10 Improving incentive spirometer and flutter valve hypertonic saline (4) Hypomagnesemia: Plan: Replete IV - will give additional 2g mag sulfate and recheck in the AM Replaced (5) Methadone use: Plan: Continue outpatient dosing (6) Diabetes type I: Plan: Poorly controlled in the past Will continue basal insulin with sliding scale A1c in the AM Consider glycemic pharmacy consult pending clinical course A1c 11.2 Pharmacy glycemic control service consult (7) Hypothyroidism: Plan: Chronic, has missed some doses of meds over the last couple of months due to difficulty obtaining Continue levothyroxine at current dose (8) Methamphetamine use: Plan: Check UDS - pt reports last use of meth was last week (9) Elevated INR: Plan: Outpatient labs reviewed - INR has been elevated at least since 2023 but it is unclear if this has ever been worked up. Check PTT, mixing study 05/11 Positive mixing study Will discuss with hematology (10) Severe protein-calorie malnutrition: Plan: Pt reports ~100 lb wt loss over the last couple of years Consult shake backboard notcher for assistance Plan Code status: full code DVT prophylaxis: SCDs for now due to work-up of prolonged PT/INR Admission and Anticipated Discharge Date Admission Date: June 08, 2023 Subjective Follow-up for pneumonia, etc. Seen resting in bed, sitting up, not in distress States he continues to feel improved overall Able to expectorate more phlegm No shortness of breath, chest pain, fevers or chills Hypoglycemic this morning, only had 1 Kiswahili toast Did better for lunch States appetite seems to be improving No other new symptoms Review of Systems Review of Systems: all noted and negative except for above Physical Exam Physical Exam: General- oriented x 3, not in distress, speaks in sentences with no effort or accessory muscle use Eyes- anicteric Neck- no JVD Lungs-positive crackles bilaterally Heart- normal rate, regular rhythm; no murmurs Abdomen- normal bowel sounds, nondistended, soft, no tenderness Extremities- no pretibial edema, no calf tenderness Neuro- alert, oriented x 3; no gross focal neurologic deficits Skin- warm & dry Results & Data Results & Data Vital Signs (Past 12 Hours) Vital Signs Temp Pulse Pulse Resp BP Pulse Ox O2 Del Method 06/11/23 16:03 37.1 C 93 H 18 130/89 94 Room Air 06/11/23 14:00 77 06/11/23 11:24 37.0 C 93 H 16 129/90 94 Room Air 06/11/23 09:41 Room Air 06/11/23 09:41 78 06/11/23 07:23 37.1 C 90 16 129/86 93 Room Air 06/11/23 07:02 90 16 93 Room Air (6) Diabetes type I Diabetes mellitus complication status: with other specified complication Qualified Code(s): E10.69 - Type 1 diabetes mellitus with other specified complication (7) Hypothyroidism Hypothyroidism type: unspecified Qualified Code(s): E03.9 - Hypothyroidism, unspecified
[2023-06-11] MEDS: ENOXAPARIN INJ 30 MG/0.3 ML SYR SQ SCH (18:13)
[2023-06-11] MEDS: D5NSS + 20MEQ KCL 20 MEQ/1,000 ML BAG IV SCH (21:25)
[2023-06-11] MEDS: guaiFENesin 600 MG TABCR PO SCH (21:54)
[2023-06-12] MEDS: LANTUS PER UNIT CHARGE SC ONE (08:05)
[2023-06-12 12:46] LABS: BUN Creatinine Ratio 10.6 (10-20); Calcium 8.4 mg/dl (8.6-10.3); Est GFR (African American) 96.4 ml/min; Est GFR (Non-African American) 83.2 ml/min; Magnesium 1.6 mg/dl (1.7-2.4)
--- NOTE | 2023-06-12 13:29 | Pharmacy Report ---
Pharmacy Glycemic Short Note 2 - Date of Service June 12, 2023 - Glycemic Short BSG Results (Last 24 hours): 06/11/23 06/11/23 06/12/23 16:05 19:47 02:06 Glucose POC Glucose 153 H 73 119 H 06/12/23 06/12/23 06/12/23 07:34 11:32 12:07 Glucose 222 H POC Glucose 170 H 240 H OUTPATIENT ANTIDIABETIC REGIMEN: * Lantus 18 units HS * Novolog 0 -12 units QID HbA1c 10.7% 04/20/23, 11.2% 06/09/23 ASSESSMENT: 06/12/23: * Dextrose-containing fluids restarted last evening for BSG of 73 mg/dL * Labs repeated today - anion gap of 6, no concern for DKA at this time * Provider agreeable to discontinuing dextrose-containing fluids today at lunchtime * Will continue w/ low-dose basal insulin and loosen Novolog parameters for rest of today to decrease likelihood of hypoglycemia 06/11/23: * Blood sugars on low-side throughout the day yesterday (low of 39 mg/dL yesterday AM) * Patient received 1 unit of insulin (no basal insulin yesterday) * Discussed case with hospitalist and given poor PO intake and > 24 hours without basal insulin, will initiate dextrose-containing maintenance fluids and give low-dose basal insulin this morning to prevent development of DKA * D5/NSS @75 mL/hr initiated, should follow potassium as hypokalemic yesterday * 36 grams CHO consumed at lunch -> BSG of 176 mg/dL, discussed again w/ hospitalist and will hold fluids for now and reassess at dinner 06/09 * Blood sugars well controlled yesterday until early this AM, severe hypoglycemia episode, even though patient only received 6 units Lantus last night. * Patient with minimal PO intake. Will HOLD Basal tonight and utilize NovoLog only with an extra check overnight to prevent another hypoglycemia episode. * Also change goal range and loosen CF/CR. 06/08 * 38 y/o male with poorly controlled DM1, hypothyroidism, bipolar disorder, hx opioid use now on methadone, methamphetamine use last wk, tobacco use, admitted with multifocal pneumonia and influenza A, on IV antibiotics + Tamiflu. * Patient received 15 units of Lantus last night for BSGs in 300s, now BSG 68mg/dl this AM due to excess basal. Reduce basal dose tonight and continue NovoLog, titrate to goal BSG. Consider increasing bottom of goal range if another hypoglycemia episode occurs. PLAN FOR INPATIENT GLYCEMIC CONTROL: * Basal insulin * Lantus 4 units SC x 1 * Reassess in AM * Bolus insulin * NovoLog per scale ACHS or Q6hrs while NPO + additional check tonight at 0200 * Goal Range: Low 120 mg/dL - High 160 mg/dL * Correction Factor: 45 mg/dL/unit * Nutritional / Prandial insulin per carb ratio of 1 unit per 25 grams CHO consumed
--- NOTE | 2023-06-12 15:18 | Hospitalist Progress Note ---
Date of Service June 12, 2023 Assessment & Plan (1) Multifocal pneumonia: Plan: Multifocal pneumonia Influenza A This is a 38 y/o male with poorly controlled DM1, hypothyroidism, bipolar disorder, hx opioid use now on methadone, methamphetamine use, tobacco use, and other history as outlined who presents to the ED from the methadone clinic with weakness and shortness of breath. Work-up in the ED revealed a multifocal pneumonia and influenza A. VBG showed mild acidosis and elevated pCO2. Initial hypotension corrected with ~2L of IVF and hypoxia is improved on 2L of O2. Also noted to have slight worsening of chronic anemia. 06/11 Improving gradually Remains on room air Blood culture: Negative Urine culture: E. coli, 10,000 colonies-resistant to ampicillin Continue Tamiflu, doxycycline day #4, Zosyn x 3 days--> changed to cefepime day #1, vancomycin discontinued Nebs, hypertonic saline Continue flutter valve, incentive spirometer (2) Influenza A: Plan: In light of patient's clinical presentation including hypoxia, multifocal pneumonia, in the setting of diabetes type 1, Tamiflu twice daily (3) Acute hypoxemic respiratory failure: Plan: See plan for #1 Continue O2 as required to maintain sat of at least 92% 06/11 Resolved incentive spirometer and flutter valve hypertonic saline, nebs (4) Hypomagnesemia: Plan: Replete IV - will give additional 2g mag sulfate and recheck in the AM Replaced (5) Methadone use: Plan: Continue outpatient dosing (6) Diabetes type I: Plan: Poorly controlled in the past Will continue basal insulin with sliding scale A1c in the AM Consider glycemic pharmacy consult pending clinical course A1c 11.2 Pharmacy glycemic control service consult (7) Hypothyroidism: Plan: Chronic, has missed some doses of meds over the last couple of months due to difficulty obtaining Continue levothyroxine at current dose (8) Methamphetamine use: Plan: Check UDS - pt reports last use of meth was last week (9) Elevated INR: Plan: Outpatient labs reviewed - INR has been elevated at least since 2022 but it is unclear if this has ever been worked up. Check PTT, mixing study 06/11 Positive mixing study Discussed with automation test engineer Dr Salvador ff up as outpatient with Hematology Possible osteomyelitis on the right fifth digit Patient reports he has been going to osteomyelitis of the right fifth digit and is supposed to follow-up with Ortho for surgical intervention Check x-ray of the right hand (10) Severe protein-calorie malnutrition: Plan: Pt reports ~100 lb wt loss over the last couple of years Consult supervisor drilling and shooting for assistance Plan Code status: full code DVT prophylaxis: SCDs for now due to work-up of prolonged PT/INR Admission and Anticipated Discharge Date Admission Date: June 08, 2023 Subjective Follow-up for bilateral pneumonia, DM type I, etc. Seen resting in bed, comfortable, not in distress States he continues to feel improved Breathing continues to improve Able to expectorate more phlegm No chest pain Appetite seems to be improving Weakness also improving No other new symptoms Review of Systems Review of Systems: all noted and negative except for above Physical Exam Physical Exam: General- oriented x 3, not in distress, speaks in sentences with no effort or accessory muscle use Eyes- anicteric Neck- no JVD Lungs-positive mild crackles bilaterally No wheeze Heart- normal rate, regular rhythm; no murmurs Abdomen- normal bowel sounds, nondistended, soft, nontender Extremities- no pretibial edema, no calf tenderness Neuro- alert, oriented x 3; no gross focal neurologic deficits Skin- warm & dry Results & Data Results & Data Vital Signs (Past 12 Hours) Vital Signs Temp Pulse Pulse Resp BP Pulse Ox O2 Del Method 06/12/23 11:31 36.5 C 80 17 106/75 95 Room Air 06/12/23 09:40 75 06/12/23 07:35 36.8 C 88 17 118/83 94 Room Air 06/12/23 07:22 72 16 96 Room Air 06/12/23 03:24 36.9 C 70 20 120/77 98 Room Air all noted and reviewed including below (6) Diabetes type I Diabetes mellitus complication status: with other specified complication Qualified Code(s): E10.69 - Type 1 diabetes mellitus with other specified complication (7) Hypothyroidism Hypothyroidism type: unspecified Qualified Code(s): E03.9 - Hypothyroidism, unspecified
--- NOTE | 2023-06-12 16:44 | XRay Report ---
XR hand RT min 3V routine CLINICAL HISTORY: r/o osteomyelitis 5th digit TECHNIQUE: 3 views of the right hand were obtained. Comparison: None available at the time of this dictation. FINDINGS: Focal lucency is at the proximal interphalangeal joint of the fifth digit. Soft tissue swelling is se en about the fifth digit. IMPRESSION: There is irregularity and bony erosion about the fifth digit PIP joint. Findings are compatible with osteomyelitis with likely septic arthritis, although they can also be seen with deformity from chroni c fracture ACT 112: Negative or not required by law. Electronically signed by: Enrico Hamilton M.D. 06/12/2023 4:42 PM
[2023-06-12] MEDS: CEFEPIME 2,000 MG in SYRINGE 0 ML IV SCH (16:54)
[2023-06-12] MEDS: MAGNESIUM OXIDE 400 MG TAB PO SCH (20:38)
[2023-06-13 07:37] LABS: BUN Creatinine Ratio 12.2 (10-20); Calcium 8.5 mg/dl (8.6-10.3); Creatinine Clr Calc Pharmacy 68.1 ml/min; Est GFR (Non-African American) 75.1 ml/min; Magnesium 1.6 mg/dl (1.7-2.4); Potassium 3.9 mmol/L (3.5-5.1)
[2023-06-13] MEDS: LANTUS PER UNIT CHARGE SC SCH (09:05)
--- NOTE | 2023-06-13 14:14 | Orthopedic Consultation ---
Date of Consultation June 13, 2023 Assessment & Plan (1) Osteomyelitis, hand: Chronic PIP joint infection right fifth finger with osteomyelitis middle and proximal phalanx in the periarticular region. Patient is already set up for amputation and [facility]. Patient indicated to me likely go to be discharged tomorrow so we can set this up with [facility] as an outpatient. If his admission continues at [facility] and this needs to be addressed tear please contact Dr. Franklin or Verenice for further evaluation and treatment. If patient continues admission here would be beneficial to get imaging from [facility] pushed into the [facility] system. History of Present Illness Reason for Consultation: Right fifth finger osteomyelitis Attending Physician: Manan Schneider MD History of Present Illness 38-year-old male admitted on medical service being treated for pneumonia. With regard to right fifth finger he states had infection there and originally the finger was draining but that subsided but has had chronic pain instability in the finger. He saw claims specialist at [facility] and said he had an MRI and they were planning to do an amputation. Allergies Allergy/AdvReac Type Severity Reaction Status Date / Time No Known Allergies Allergy Unverified 04/19/23 11:05 Home Medications Medication Instructions Recorded Confirmed Type Methadone 114 mg PO DAILY 04/19/23 06/08/23 History insulin aspart U-100 100 unit/mL 0 - 12 unit subcut QID 04/19/23 06/08/23 History subcutaneous solution (Novolog U-100 Insulin aspart) levothyroxine 88 mcg tablet 88 mcg PO DAILY 04/19/23 06/08/23 History insulin glargine 100 unit/mL (3 10 unit (0.1 mL) subcut PM #3 mL 04/23/23 06/08/23 Rx mL) subcutaneous pen (Lantus Solostar U-100 Insulin) gabapentin 300 mg capsule 300 mg PO TID 06/08/23 06/08/23 History Patient History Medical History Pneumocephalus, traumatic Neuropathy Compulsive skin picking ADHD Mixed dyslipidemia History of pneumonia Multifocal necrotizing pneumonia with ARDS in Dec 2021, required intubation Osteomyelitis of right hand Acute urinary retention Opioid use disorder Bipolar disorder Tobacco use disorder Non compliance w medication regimen Hypothyroidism Diabetes type I Surgical History No pertinent past surgical history Family History Other Alcohol dependence with other alcohol-induced disorder Mood disorder Social History Smoking Status: Current every day smoker Tobacco Type: Cigarettes packs per day: 0.5; Second Hand Exposure: Yes; Tobacco Cessation Education Requested by Patient: No Hx Alcohol Use: No Hx Substance Use: Yes Non-Prescribed Medications: Methamphetamines Last Used Substance: Days (ago) Preferred Language: Welsh Communication Ability: Effective Preschool Teacher Aide Required: No Beliefs That Will Affect Care: None Current Living Situation: Homeless Current Living Situation Comment: MOTHER Other Information That Helps Us Care for You: No Feels Safe at Home: Yes Safety Concerns: Feels Safe At This Time Assistive Devices: Cane Physical Exam Physical Exam: Fifth fingers grossly unstable at the PIP joint. Tendon function still intact. Has good capillary refill. He has multiple areas of skin breakdown over the mi ddle and proximal phalanx circumferentially around the finger no drainage of the these areas. All these areas of breakdown are superficial. There is generalized pink irritated skin around the whole area. Results & Data Vital Signs (Past 12 Hours) Vital Signs Temp Pulse Pulse Resp BP Pulse Ox O2 Del Method 06/13/23 11:15 36.9 C 95 H 17 107/71 92 Room Air 06/13/23 07:21 36.9 C 90 17 103/71 91 Room Air 06/13/23 07:15 Room Air 06/13/23 07:15 83 06/13/23 06:54 87 19 93 Room Air 06/13/23 04:41 37.0 C 90 17 129/85 96 Room Air Diagnostic Findings Hand x-rays demonstrate the fifth finger PIP joint is eroded away with osteomyelitis middle and proximal phalanx at the level of the PIP joint. (1) Osteomyelitis, hand Osteomyelitis type: other chronic
--- NOTE | 2023-06-13 15:39 | Infectious Disease Consult ---
Date of Service June 13, 2023 Telehealth Information I performed this visit using a real-time telehealth connection between my location and the patients location ([facility]). After connecting through interactive tele-video, patient was identified by name and date of and/or wristband check.Patient (or authorized healthcare veterans contact representative) was informed that this was a telemedicine visit and it was being conducted confidentially over secure lines. My office door was closed and no on e else was present in the room with me.Patient (or authorized healthcare veterans contact representative) provided consent to proceed with the visit, expressed an understanding of privacy and security of the telemedicine visit, and gave permission to have a hospital veterans contact representative in the room in order to assist with the visit and to conduct portions of the visit, as needed. I informed the patient (or authorized healthcare veterans contact representative) that I reviewed their record and presented the opportunity for them to ask any questions regarding the visit today. The patient agreed to participate. Assessment & Plan (1) Influenza A: (2) Multifocal pneumonia: (3) Acute hypoxemic respiratory failure: (4) Finger osteomyelitis, right: (5) Asymptomatic bacteriuria: Plan - Given that the osteomyelitis is chronic with patient having the swelling and redness for almost a year now, I would not recommend any antibiotic treatment. He is to follow-up with orthopedic as outpatient with plan for amputation at [facility]. - As for his pneumonia, I would recommend stopping doxycycline as he already received 5 days. Can continue on IV cefepime to complete a course of 7 days (including the piperacillin/tazobactam days). - Thank you for consulting ID. We will sign off for now. History of Present Illness History of Present Illness Mr. Irby is a 38-year-old man with medical history of type 1 diabetes (poorly controlled), hypothyroidism, bipolar disorder, polysubstance use disorder and chronic osteomyelitis of the right little finger was admitted to [facility] on 06/07 after being referred from the methadone clinic for generalized weakness and shortness of breath. On arrival to the emergency department, the influenza PCR came back positive for flu A and chest x-ray was suggestive of multifocal pneumonia. He was also a little hypotensive but responded appropriately to IV fluids. He was also hypoxic requiring 2 L of oxygen via nasal cannula. He was initially started on broad-spectrum antibiotics including piperacillin/tazobactam and vancomycin; however, after the MRSA swab came back negative, vancomycin was discontinued. On 06/11, the pip- tazo was shifted to cefepime. While in the hospital, he was noticed to have redness and swelling of the right little finger; therefore, an x-ray of the right hand was performed which showed irregularity and bony erosion of the fifth digit proximal interphalangeal joint compatible with osteomyelitis and likely septic arthritis. On obtaining history from the patient, he mentioned that he has been having this redness and swelling for over a year without any open wounds. He was also scheduled for amputation of the right little finger at [facility] around a couple of months ago; however, he did not have transportation. He was also seen by the orthopedic team during the current admi ssion and they recommended to call Orthopedic team at [facility] to reschedule th Rt little finger amputation. ID team was consulted for further recommendations and to help guide antibiotic treatment. Allergies Allergy/AdvReac Type Severity Reaction Status Date / Time No Known Allergies Allergy Unverified 04/19/23 11:05 Home Medications Medication Instructions Recorded Confirmed Type Methadone 114 mg PO DAILY 04/19/23 06/08/23 History insulin aspart U-100 100 unit/mL 0 - 12 unit subcut QID 04/19/23 06/08/23 History subcutaneous solution (Novolog U-100 Insulin aspart) levothyroxine 88 mcg tablet 88 mcg PO DAILY 04/19/23 06/08/23 History insulin glargine 100 unit/mL (3 10 unit (0.1 mL) subcut PM #3 mL 04/23/23 06/08/23 Rx mL) subcutaneous pen (Lantus Solostar U-100 Insulin) gabapentin 300 mg capsule 300 mg PO TID 06/08/23 06/08/23 History Patient History Medical History Pneumocephalus, traumatic Neuropathy Compulsive skin picking ADHD Mixed dyslipidemia History of pneumonia Multifocal necrotizing pneumonia with ARDS in Dec 2021, required intubation Osteomyelitis of right hand Acute urinary retention Opioid use disorder Bipolar disorder Tobacco use disorder Non compliance w medication regimen Hypothyroidism Diabetes type I Surgical History No pertinent past surgical history Family History Other Alcohol dependence with other alcohol-induced disorder Mood disorder Social History Smoking Status: Current every day smoker Tobacco Type: Cigarettes packs per day: 0.5; Second Hand Exposure: Yes; Tobacco Cessation Education Requested by Patient: No Hx Alcohol Use: No Hx Substance Use: Yes Non-Prescribed Medications: Methamphetamines Last Used Substance: Days (ago) Preferred Language: Azeri Communication Ability: Effective Mortgage Loan Assistant Required: No Beliefs That Will Affect Care: None Current Living Situation: Homeless Current Living Situation Comment: MOTHER Other Information That Helps Us Care for You: No Feels Safe at Home: Yes Safety Concerns: Feels Safe At This Time Assistive Devices: Cane Review of Systems Constitutional: Fatigue but better than before, no fever or chills HEENT: no sore throat, no nasal discharge Cardiovascular: no chest pain, or palpitations Respiratory: no shortness of breath, no cough Gastrointestinal: No nausea, vomiting, diarrhea or abdominal pain : No dysuria or hesitancy, no urinary discharge Musculoskeletal/Skin: No muscle aches/arthralgia. Mild pain Rt little finger Neurologic: no dizziness or headache Physical Exam Couldn't be obtained as the consult was conducted via telemed. Results & Data Vital Signs (Past 12 Hours) Vital Signs Temp Pulse Pulse Resp BP Pulse Ox O2 Del Method 06/13/23 11:15 36.9 C 95 H 17 107/71 92 Room Air 06/13/23 07:21 36.9 C 90 17 103/71 91 Room Air 06/13/23 07:15 Room Air 06/13/23 07:15 83 06/13/23 06:54 87 19 93 Room Air 06/13/23 04:41 37.0 C 90 17 129/85 96 Room Air Laboratory Results Microbiology: 06/07: 2 sets of blood culture negative to date 06/08: Urine culture growing E. coli Diagnostic Findings CXR on 06/07: Interval development of multifocal bilateral airspace opacities. This likely represents a pneumonia. RT hand Xray on 06/11: There is irregularity and bony erosion about the fifth digit PIP joint. Findings are compatible with osteomyelitis with likely septic arthritis, although they can also be seen with deformity from chronic fracture
--- NOTE | 2023-06-13 16:01 | Hospitalist Progress Note ---
Date of Service June 13, 2023 Assessment & Plan (1) Multifocal pneumonia: Plan: Multifocal pneumonia Influenza A This is a 38 y/o male with poorly controlled DM1, hypothyroidism, bipolar disorder, hx opioid use now on methadone, methamphetamine use, tobacco use, and other history as outlined who presents to the ED from the methadone clinic with weakness and shortness of breath. Patient x-ray on admission personally reviewed; multifocal bilateral airspace opacities Continue on Tamiflu; plan to treat for 5 days Continue on antibiotics with cefepime and vancomycin. Nebs, hypertonic saline Continue flutter valve, incentive spirometer (2) Influenza A: Plan: In light of patient's clinical presentation including hypoxia, multifocal pneumonia, in the setting of diabetes type 1, Tamiflu twice daily for total of 5 days next (3) Acute hypoxemic respiratory failure: Plan: See plan for #1 Continue O2 as required to maintain sat of at least 92% Weaned off to room air. (4) Hypomagnesemia: Plan: Repleted (5) Methadone use: Plan: Continue outpatient dosing (6) Diabetes type I: Plan: Poorly controlled in the past HbA1c of 11.2% Currently on Lantus and NovoLog as per pharmacy. (7) Hypothyroidism: Plan: Chronic, has missed some doses of meds over the last couple of months due to difficulty obtaining Continue levothyroxine at current dose (8) Finger osteomyelitis, right: Plan: Possible osteomyelitis on the right fifth digit Patient reports he has been going to osteomyelitis of the right fifth digit and is supposed to follow-up with Ortho for surgical intervention Xray showed irregularity and bony erosion about the fifth digit PIP joint. Findings consistent with osteomyelitis. Evaluated by Orthopedics; chronic PIP joint infection; recommended to follow up with [facility]. ID doesn't recommended antibiotics for chronic osteomyelitis. (9) Elevated INR: Plan: INR elevated to 1.6 Positive mixing study previous hospitalist discussed with business transformation manager Dr Salvador ff up as outpatient with Hematology (10) Severe protein-calorie malnutrition: Plan: Pt reports ~100 lb wt loss over the last couple of years Consult warp hauler for assistance Plan Code status: full code DVT prophylaxis: SCDs for now due to work-up of prolonged PT/INR Time spent evaluating patient, direct bedside care, chart review, placing orders, interpretation of diagnostic studies, discussion with consultants, patient, and family members, as well as other required patient management activities is 50 minutes Please note the above document was generated using voice recognition software. It may contain grammatical, syntax or spelling errors. Any formal questions or concerns about the content, text or information contained within the body of this dictation should be directly addressed to the provider for clarification Admission and Anticipated Discharge Date Admission Date: June 08, 2023 Subjective Patient seen and examined at bedside. He is comfortably lying in the bed; not in distress. He denies cough, fever or chills. Review of Systems Review of Systems: All systems reviewed & are unremarkable except as noted in Subjective Physical Exam Physical Exam: Constitutional: Alert oriented x 3; not in distress. Respiratory: Bilateral vesicular breath sound Cardiovascular: RRR, no murmur, no edema Vessels: no JVD or carotid bruit Chest: normal inspection of chest Abdomen: normal bowel sounds, soft, nontender, no hepatosplenomegaly Musculoskeletal: Fifth finger with multiple areas of skin breakdown. Nontender, no erythema or swelling. Skin: no rashes, warm and dry normal turgor Neurologic: PERRL, EOMI, accommodation nl, no face palsy, no dysarthria CN's II- XI intact bilaterally and moves all extremities Psychiatric: A+Ox3, euthymic affect Results & Data Results & Data Vital Signs (Past 12 Hours) Vital Signs Temp Pulse Pulse Resp BP Pulse Ox O2 Del Method 06/13/23 11:15 36.9 C 95 H 17 107/71 92 Room Air 06/13/23 07:21 36.9 C 90 17 103/71 91 Room Air 06/13/23 07:15 Room Air 06/13/23 07:15 83 06/13/23 06:54 87 19 93 Room Air 06/13/23 04:41 37.0 C 90 17 129/85 96 Room Air (6) Diabetes type I Diabetes mellitus complication status: with other specified complication Qualified Code(s): E10.69 - Type 1 diabetes mellitus with other specified complication (7) Hypothyroidism Hypothyroidism type: unspecified Qualified Code(s): E03.9 - Hypothyroidism, unspecified
[2023-06-14 07:27] LABS: BUN Creatinine Ratio 11.8 (10-20); Calcium 8.6 mg/dl (8.6-10.3); Creatinine Clr Calc Pharmacy 70.6 ml/min; Est GFR (African American) 90.5 ml/min; Est GFR (Non-African American) 78.1 ml/min; Magnesium 1.7 mg/dl (1.7-2.4); Potassium 3.7 mmol/L (3.5-5.1)
--- NOTE | 2023-06-14 15:36 | Discharge Summary ---
Date of Service June 14, 2023 Admission HPI Per Admitting Provider This is a 38 y/o male with poorly controlled DM1, hypothyroidism, bipolar disorder, hx opioid use now on methadone, methamphetamine use, tobacco use, and other history as outlined who presents to the ED from the methadone clinic with weakness and shortness of breath. Pt reports that he started with "cold symptoms" about a week ago, mainly cough and subjective fever. He has felt warm, had chills and sweats but did not check his temperature. His cough has been productive of yellow to green sputum, no hemoptysis. He has noted shortness of breath at rest and with exertion. He has had associated chest heaviness and t ight sensation but denies chest pain or palpitations. He smokes 1PPD. This morning, he went to the methadone clinic and was noted to be profoundly weak. He was then given his usual methadone dose and reportedly worsened acutely weakness, diaphoresis, short of breath so EMS was called. His initial systolic BPs were reportedly in the 60s so IVFs were started. He was given 400 ml in route, additional 1500 ml in the ED with improvement of BP into the 90s-100s systolic. Initial pulseox for EMS was in the low 80s, in the ED upper 80s so pt was placed on 2L of oxygen with improvement. Pt was admitted to [facility] 04/19-04/23/23 with altered mental status secondary to acute toxic metabolic encephalopathy - UDS was positive for methadone, methamphetamine, and ecstasy/mdma. He also had acute urinary retention and had a Rasheed catheter placed. He was supposed to f/u with urology as an outpatient to evaluate for removal. However, instead he presented to the [facility] ED a month after discharge and had it removed there. He had trouble getting more needles for his insulin injections so was apparently reusing them for a period of time. His basal insulin dosing was decreased during last admission from 18 units to 10 units due to hypoglycemia. Admission Exam Per Admitting Provider General: awake, alert, no acute distress but appears ill, thin and frail- appearing HEENT: PERRL, no scleral icterus, slightly dry oral mucosa Neck: supple, trachea midline Heart: RRR Lungs: scattered wheezes and rhonchi bilaterally but worse at the bases Abdomen: soft, NT, +BS Extremities: no edema, distal pulses intact and equal Skin: no jaundice, slightly dry Neurologic: moving all extremities, oriented x 3, no dysarthria Principal Diagnosis Influenza A Multifocal pneumonia Discharge Exam Constitutional: Alert oriented x 3; not in distress. Respiratory: Bilateral vesicular breath sound Cardiovascular: RRR, no murmur, no edema Vessels: no JVD or carotid bruit Chest: normal inspection of chest Abdomen: normal bowel sounds, soft, nontender, no hepatosplenomegaly Musculoskeletal: Fifth finger with multiple areas of skin breakdown. Nontender, no erythema or swelling. Skin: no rashes, warm and dry normal turgor Neurologic: PERRL, EOMI, accommodation nl, no face palsy, no dysarthria CN's II- XI intact bilaterally and moves all extremities Psychiatric: A+Ox3, euthymic affect Discharge Data Allergies Allergy/AdvReac Type Severity Reaction Status Date / Time No Known Allergies Allergy Unverified 04/19/23 11:05 Consultations 06/08/23 11:29 ED Decision to Admit Stat 06/12/23 15:30 Consult Orthopedic Surgery Routine 06/12/23 16:55 Consult Infectious Diseases Routine Diabetes Follow up Diabetes Follow-up Needed for HgbA1c >9% Hospital Course (1) Multifocal pneumonia: Multifocal pneumonia Influenza A This is a 38 y/o male with poorly controlled DM1, hypothyroidism, bipolar disorder, hx opioid use now on methadone, methamphetamine use, tobacco use, and other history as outlined who presents to the ED from the methadone clinic with weakness and shortness of breath. Patient x-ray on admission personally reviewed; multifocal bilateral airspace opacities During the hospitalization, patient was treated with IV antibiotics, Tamiflu, airway clearance therapy with hypertonic saline and nebulization He showed continued improvement throughout the hospitalization. At discharge, he was saturating well in room air. He completed antibiotic course with doxycycline and Tamiflu; discharge with 2 more days of cefdinir (2) Influenza A: Patient completed 5 days of Tamiflu (3) Acute hypoxemic respiratory failure: At room air at discharge (4) Hypomagnesemia: Repleted (5) Methadone use: Continue outpatient dosing (6) Diabetes type I: Poorly controlled in the past HbA1c of 11.2% Patient had multiple episodes Of hypoglycemia during the hospitalization. hematology nurse educator was consulted; patient was placed on 4 unit of Lantus; 2 units of NovoLog with small meal and 3 units with large meals (7) Hypothyroidism: Chronic, has missed some doses of meds over the last couple of months due to difficulty obtaining Continue levothyroxine at current dose (8) Finger osteomyelitis, right: Possible osteomyelitis on the right fifth digit Patient reports he has been going to osteomyelitis of the right fifth digit and is supposed to follow-up with Ortho for surgical intervention Xray showed irregularity and bony erosion about the fifth digit PIP joint. Findings consistent with osteomyelitis. Evaluated by Orthopedics; chronic PIP joint infection; recommended to follow up with Marlin [facility] as outpatient ID doesn't recommended antibiotics for chronic osteomyelitis. (9) Elevated INR: INR elevated to 1.6 Positive mixing study previous hospitalist discussed with varitype operator Dr Salvador ff up as outpatient with Hematology (10) Severe protein-calorie malnutrition: Pt reports ~100 lb wt loss over the last couple of years Consulted supervisor roller printing for assistance Plan Please note the above document was generated using voice recognition software. It may contain grammatical, syntax or spelling errors. Any formal questions or concerns about the content, text or information contained within the body of this dictation should be directly addressed to the provider for clarification Total Time Total Time Spent Total Time Spent (In Minutes): 45 Discharge Plan Discharge Items Patient Disposition: Home - Self-Care Reason For Visit: multifocal pneumonia, flu a Discharge Diagnosis: Multifocal pneumonia Influenza A Activity: Resume your previous activity Non-emergency contact: Primary Care Provider Call non-emergency contact if: you have any medication questions Follow-up/Referrals: Av Graves MD [Primary Care Provider] - (Date & Time 06/22/2023 2:00 PM Provider Partha Otto PA-C Department [facility] ) Diet: Regular Addtl Attending Provider Instructions: You were admitted to the hospital due to influenza. You were treated with Tamiflu during the hospitalization. You are also found to have pneumonia for which you are given antibiotics. To complete the antibiotic course; take cefdinir 300 mg twice a day for 2 days. For the diabetes: 1) take long-acting insulin (glargine)-4 units every morning. IT Is very important that you don't miss doses of long-acting insulin. 2) Take 2 units of short acting insulin(aspart) before you are having small meals. Take 3 units for larger meals. Please watch out for signs of hypoglycemia. You can use glucose tablets better found [id number] to quickly raise your blood glucose in case of hypoglycemia. It is very important for you to follow-up with primary care doctor and diabetes clinic. Titration of your insulin should be made based on your blood glucose re gisselle. Pending Studies at Discharge: No Stand-Alone Forms: My [facility], Smoking Cessation Medications and DC Order Prescriptions: New thiamine HCl (vitamin B1) 100 mg Tablet 100 mg PO QAM Qty: 30 0RF folic acid 1 mg Tablet 1 mg PO QAM Qty: 30 0RF cefdinir 300 mg capsule 300 mg PO BID 2 Days Qty: 4 0RF Continued Methadone 114 mg PO DAILY Rx Instructions: Per caregiver, pt visits clinic for his doses. levothyroxine 88 mcg Tablet 88 mcg PO DAILY gabapentin 300 mg capsule 300 mg PO TID Changed insulin aspart U-100 [Novolog U-100 Insulin aspart] 100 unit/mL Solution 2 - 3 unit SUBCUT QID Qty: 10 0RF insulin glargine [Lantus Solostar U-100 Insulin] 100 unit/mL (3 mL) Insulin Pen 4 unit SUBCUT PM Qty: 3 0RF Discharge Orders: Discharge Order (Routine); Ordered 06/14/23 Ordered By: Manan Rojo/Other Patient Handouts: Managing Type 1 Diabetes Admission Data Admit Date/Time: 06/08/23 11:40 Attending Provider: Manan Schneider Admit Provider: Ladan Lopez Primary Care Provider: Av Graves Other Providers: Ladan Lopez; Mikael Aldana; Michi Jalloh; Chang Alfredo; Tanya Caceres; Thiago White; Caroline Michael; Leobardo Barriga; Fernie Franklin; Pete Mercedes Andrew J.; Fernie Silva; Francisco Stevens; Brandon Morin; Gil Domingo; Jorge Burger; Caroline Kenney; Rafita Mendes; Declan Santiago; Rogelio Caldera; Nicole Carmona; Sylvester Lawson; Jevon Mtz; Cinthia March; Itz Piper; Linda Saravia; Dave Webb; Seun Saha; Gray Leblanc I.; Anthony Lancaster II; Leila Madrigal; Rupert Chowdhury; Bonifacio Fan; Tere Sparks Other Interventions: Discharge Summary Assessment (RN) Last Done: 06/14/23 11:24
--- NOTE | 2023-06-18 08:01 | Coding Query ---
To promote full compliance with coding requirements relating to patient care, provider participation is requested in all cases of cut off machine helper uncertainty. Please assist us with the question(s) below: Coding Question(s): The diagnosis below was documented in the H&P, by the Supervising Physician, then subsequently fell off all further documentation. Please indicate if it is still a possible diagnosis or ruled out. Physician's Response(s): SEPSIS - (the H&P Supervising Physician documented, "Sepsis 2/2 multifocal pneumonia in setting of influenza infection") ( X ) Diagnosed and POA ( ) Diagnosed and not POA ( ) Ruled out ( ) Other (please specify) MTDD
== END 2023-06-14 12:16 | disposition home or self-care (01) | DRG 871 ==
LOC: ED 08:58 → SUATTDRO 11:40 → 2S 11:40

== ENCOUNTER 2024-07-14 16:37 | Inpatient (IN) ==
--- NOTE | 2024-07-14 17:06 | Emergency Department Note ---
Impression & Plan ANTOLIN (acute kidney injury), Acute hyperglycemia, Acute hypotension, Acute respiratory acidosis, Osteomyelitis ED Provider Note NAME: CLAIRE VILLASENOR AGE: 39 SEX: M : 1985 ARRIVES VIA: Walk-In INFORMANT: Patient, ED PROVIDER(S): Brody Lino DO CHIEF COMPLAINT: Syncope HPI: The patient is a 39-year-old male who presented to the emergency department for an evaluation of syncope. The patient's been having episodes of syncope. He was recently discharged from a different hospital because of treatment for osteomyelitis of his right hand. He is not currently on any antibiotics. He denies having any fever. He denies having any chest pain or difficulty breathing. The patient came to the emergency department today because he wanted to go to a different emergency department. He is not been seen by his family doctor. Otherwise he has been compliant with his outpatient medications which include methadone and insulin. ROS: See above HPI for pertinent positives & negatives. A total of 10 systems reviewed and were otherwise negative. PAST MEDICAL HISTORY: See Below PAST SURGICAL HISTORY: See Below FAMILY HISTORY: See Below SOCIAL HISTORY: See Below HOME MEDICATIONS: See Below ALLERGIES: See Below VITALS: See Below PHYSICAL EXAMINATION: GENERAL: The patient is awake and alert. He is very cachectic appearing. EYES: The conjunctivae are clear. The pupils are round and reactive. EARS, NOSE, MOUTH AND THROAT: The nose is without any evidence of any deformity. NECK: The neck is nontender and supple. RESPIRATORY: Normal respiratory effort is noted there is no evidence of wheezing rhonchi or rales CARDIOVASCULAR: Regular rate and rhythm noted there no murmurs rubs or gallops normal S1 normal S2. GASTROINTESTINAL: The abdomen is soft. Abdomen is nontender. MUSCULOSKELETAL/EXTREMITIES: There is no evidence of gross deformity full range of motion is noted in the hips and shoulders. There is erythema and swelling noted on the lateral aspect of the right hand. Full range of motion is noted but appears chronic. SKIN: There is no obvious evidence of any rash. There are no petechiae, pallor or cyanosis noted. NEUROLOGIC: Patient is awake alert and oriented x3. MEDICAL DECISION MAKING: The patient is a 39-year-old male who presented to the emergency department for an evaluation. The patient's been having problems with passing out. He was very hypotensive upon arrival. He is dealing with a right hand infection. He has a history of diabetes. He also has a remote history of IV drug abuse. He is on methadone. The patient was very cachectic appearing. He had a low-grade fever. I discussed the patient's laboratory and radiographic studies with him. He was treated with IV fluids as well as IV antibiotics. He was treated empirically with broad-spectrum antibiotics. The patient was found to have signs of osteomyelitis on the right hand. This does not appear to be active clinically but it is very difficult as the patient's physical exam according to him is not unchanged from when he was last treated for osteomyelitis. [facility] He was also found to have areas of free air on his neck CT. I am unsure the significance of this but he may require further workup to determine the source of this. Triage Nursing notes reviewed. Prior medical records reviewed Vital Signs: reviewed and remarkable for initial hypotension. Differential diagnosis: Vasovagal event, dehydration, infection, hypoglycemia, electrolyte abnormalities, cardiac sources, intracerebral event, pulmonary embolism, seizure, toxicologic, neurologic, as well as other pathologies. ER treatment provided: See below Diagnostics interpreted by me: ECG: EKG was obtained in the emergency department. My interpretation is normal sinus rhythm at 88 bpm. There is no ectopy. There was no acute ST segment abnormalities noted. This was compared to a tracing from June 08, 2023. No changes were noted. Cardiac Monitoring: An order was placed for continuous cardiac monitoring. The monitor shows a rate of 75 bpm with sinus rhythm. Laboratory studies: As stated above and show below. Imaging studies: See below. Radiographic imaging was reviewed by myself Consultation(s): I discussed this case with Dr. Batista who [facility] ED COURSE: Procedures: none Critical Care: I have personally spent greater than 35 minutes of critical care time in the direct management of this patient. This includes bedside care, interpretation of diagnostic studies, and testing, discussion with consultants, patient, and family members, and other required patient management activities. This 35 minutes is in excess of all separately billable procedures. Past Med/Surg History Problem List (Updated 07/14/24 @ 21:05 by Brody Lino DO) Osteomyelitis (Acute) Acute respiratory acidosis (Acute) Acute hypotension (Acute) Acute hyperglycemia (Acute) ANTOLIN (acute kidney injury) (Acute) Finger osteomyelitis, right Osteomyelitis, hand Severe protein-calorie malnutrition Elevated INR Multifocal pneumonia Influenza A (Acute) Elevated procalcitonin (Acute) Hypomagnesemia (Acute) Acute hypoxemic respiratory failure (Acute) Pneumonia (Acute) Generalized weakness (Acute) Underweight Methadone use Opioid use disorder Bipolar disorder Tobacco use disorder Methamphetamine use Non compliance w medication regimen Hypothyroidism Diabetes type I Medical History Asymptomatic bacteriuria Pneumocephalus, traumatic Neuropathy Compulsive skin picking ADHD Mixed dyslipidemia History of pneumonia Multifocal necrotizing pneumonia with ARDS in Dec 2021, required intubation Osteomyelitis of right hand Acute urinary retention Surgical History No pertinent past surgical history Family History Other Alcohol dependence with other alcohol-induced disorder Mood disorder Social History Smoking Status: Current every day smoker Tobacco Type: Cigarettes packs per day: 0.5; Second Hand Exposure: Yes; Hx Alcohol Use: No Hx Substance Use: Yes Non-Prescribed Medications: Methamphetamines Last Used Substance: Days (ago) Preferred Language: Faroese 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 Numerical 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 Required: No Beliefs That Will Affect Care: None Current Living Situation: Homeless Current Living Situation Comment: MOTHER Feels Safe at Home: Yes Assistive Devices: Cane Allergies Allergies Allergy/AdvReac Type Severity Reaction Status Date / Time No Known Allergies Allergy Verified 07/14/24 18:31 Home Meds Home Medications Medication Instructions Recorded Confirmed Methadone 116 mg PO DAILY 04/19/23 07/14/24 gabapentin 300 mg capsule 300 mg PO TID 06/08/23 07/14/24 insulin aspart U-100 100 unit/mL 2 - 3 unit subcut ACHS 07/14/24 07/14/24 subcutaneous solution (Novolog U-100 Insulin aspart) levothyroxine 200 mcg tablet 200 mcg PO QAM 07/14/24 07/14/24 quetiapine 300 mg tablet 150 mg PO HS 07/14/24 07/14/24 Previous Rx's Medication Instructions Recorded insulin glargine 100 unit/mL (3 4 unit (0.04 mL) subcut PM #3 mL 06/14/23 mL) subcutaneous pen (Lantus Solostar U-100 Insulin) Results & Data (ED) Vital Signs Vital Signs - 24 hr 07/14/24 16:39 07/14/24 16:50 07/14/24 16:50 Temperature 37.7 C H Temperature Source Temporal Artery Scan Pulse Rate 88 Pulse Rate [Apical] Pulse Rate from SpO2 Sensor Pulse Rhythm [Apical] Pulse Strength [Apical] Respiratory Rate 18 Respiratory Effort / Characteristics Non-Labored Respiratory Depth Normal Respiratory Pattern Regular Blood Pressure 60/41 L 68/45 L 68/45 L Blood Pressure [Right Arm] Blood Pressure Mean 47 51 51 Blood Pressure Mean [Right Arm] Blood Pressure Position [Right Arm] Pulse Oximetry 98 Oxygen Delivery Method Room Air Oxygen Flow Rate Sepsis Recent Fever Within 48 Hours No Sepsis New/Unexplained Change in Mental Status No Sepsis Action Taken by Nursing No Action Required 07/14/24 16:50 07/14/24 16:51 07/14/24 16:54 Temperature Temperature Source Pulse Rate 86 87 Pulse Rate [Apical] Pulse Rate from SpO2 Sensor 87 88 Pulse Rhythm [Apical] Pulse Strength [Apical] Respiratory Rate 13 14 Respiratory Effort / Characteristics Respiratory Depth Respiratory Pattern Blood Pressure 68/45 L Blood Pressure [Right Arm] Blood Pressure Mean 51 Blood Pressure Mean [Right Arm] Blood Pressure Position [Right Arm] Pulse Oximetry 97 100 Oxygen Delivery Method Oxygen Flow Rate Sepsis Recent Fever Within 48 Hours Sepsis New/Unexplained Change in Mental Status Sepsis Action Taken by Nursing 07/14/24 16:57 07/14/24 16:57 07/14/24 16:58 Temperature Temperature Source Pulse Rate Pulse Rate [Apical] 85 Pulse Rate from SpO2 Sensor Pulse Rhythm [Apical] Pulse Strength [Apical] Respiratory Rate 14 Respiratory Effort / Characteristics Respiratory Depth Respiratory Pattern Blood Pressure 134/87 Blood Pressure [Right Arm] 134/87 Blood Pressure Mean 96 Blood Pressure Mean [Right Arm] 102 Blood Pressure Position [Right Arm] Pulse Oximetry 99 99 Oxygen Delivery Method Room Air Room Air Oxygen Flow Rate Sepsis Recent Fever Within 48 Hours Sepsis New/Unexplained Change in Mental Status Sepsis Action Taken by Nursing 07/14/24 16:59 07/14/24 17:00 07/14/24 17:11 Temperature 36.8 C Temperature Source Oral Pulse Rate 88 Pulse Rate [Apical] Pulse Rate from SpO2 Sensor Pulse Rhythm [Apical] Pulse Strength [Apical] Respiratory Rate Respiratory Effort / Characteristics Respiratory Depth Respiratory Pattern Blood Pressure 110/80 Blood Pressure [Right Arm] Blood Pressure Mean 86 Blood Pressure Mean [Right Arm] Blood Pressure Position [Right Arm] Pulse Oximetry Oxygen Delivery Method Oxygen Flow Rate Sepsis Recent Fever Within 48 Hours Sepsis New/Unexplained Change in Mental Status Sepsis Action Taken by Nursing 07/14/24 17:11 07/14/24 17:15 07/14/24 17:17 Temperature Temperature Source Pulse Rate Pulse Rate [Apical] 84 Pulse Rate from SpO2 Sensor Pulse Rhythm [Apical] Pulse Strength [Apical] Respiratory Rate 15 Respiratory Effort / Characteristics Respiratory Depth Respiratory Pattern Blood Pressure 110/80 123/79 Blood Pressure [Right Arm] 123/79 Blood Pressure Mean 86 92 Blood Pressure Mean [Right Arm] 93 Blood Pressure Position [Right Arm] Pulse Oximetry 100 Oxygen Delivery Method Room Air Oxygen Flow Rate Sepsis Recent Fever Within 48 Hours Sepsis New/Unexplained Change in Mental Status Sepsis Action Taken by Nursing 07/14/24 17:17 07/14/24 17:21 07/14/24 17:30 Temperature Temperature Source Pulse Rate 84 Pulse Rate [Apical] 81 Pulse Rate from SpO2 Sensor 85 Pulse Rhythm [Apical] Pulse Strength [Apical] Respiratory Rate 14 15 Respiratory Effort / Characteristics Respiratory Depth Respiratory Pattern Blood Pressure 123/79 Blood Pressure [Right Arm] 117/78 Blood Pressure Mean 92 Blood Pressure Mean [Right Arm] 91 Blood Pressure Position [Right Arm] Pulse Oximetry 100 96 Oxygen Delivery Method Room Air Oxygen Flow Rate Sepsis Recent Fever Within 48 Hours Sepsis New/Unexplained Change in Mental Status Sepsis Action Taken by Nursing 07/14/24 17:33 07/14/24 17:33 07/14/24 17:36 Temperature Temperature Source Pulse Rate 82 Pulse Rate [Apical] Pulse Rate from SpO2 Sensor 82 Pulse Rhythm [Apical] Pulse Strength [Apical] Respiratory Rate 13 Respiratory Effort / Characteristics Respiratory Depth Respiratory Pattern Blood Pressure 117/78 117/78 Blood Pressure [Right Arm] Blood Pressure Mean 90 90 Blood Pressure Mean [Right Arm] Blood Pressure Position [Right Arm] Pulse Oximetry 98 Oxygen Delivery Method Oxygen Flow Rate Sepsis Recent Fever Within 48 Hours Sepsis New/Unexplained Change in Mental Status Sepsis Action Taken by Nursing 07/14/24 17:42 07/14/24 17:45 07/14/24 17:45 Temperature Temperature Source Pulse Rate 83 Pulse Rate [Apical] 80 Pulse Rate from SpO2 Sensor 83 Pulse Rhythm [Apical] Pulse Strength [Apical] Respiratory Rate 14 14 Respiratory Effort / Characteristics Respiratory Depth Respiratory Pattern Blood Pressure 131/92 Blood Pressure [Right Arm] 131/92 Blood Pressure Mean 103 Blood Pressure Mean [Right Arm] 105 Blood Pressure Position [Right Arm] Pulse Oximetry 99 99 Oxygen Delivery Method Room Air Oxygen Flow Rate Sepsis Recent Fever Within 48 Hours Sepsis New/Unexplained Change in Mental Status Sepsis Action Taken by Nursing 07/14/24 17:45 07/14/24 17:45 07/14/24 17:45 Temperature Temperature Source Pulse Rate Pulse Rate [Apical] Pulse Rate from SpO2 Sensor Pulse Rhythm [Apical] Pulse Strength [Apical] Respiratory Rate Respiratory Effort / Characteristics Respiratory Depth Respiratory Pattern Blood Pressure 131/92 131/92 131/92 Blood Pressure [Right Arm] Blood Pressure Mean 103 103 103 Blood Pressure Mean [Right Arm] Blood Pressure Position [Right Arm] Pulse Oximetry Oxygen Delivery Method Oxygen Flow Rate Sepsis Recent Fever Within 48 Hours Sepsis New/Unexplained Change in Mental Status Sepsis Action Taken by Nursing 07/14/24 17:45 07/14/24 17:45 07/14/24 17:51 Temperature Temperature Source Pulse Rate 82 80 Pulse Rate [Apical] Pulse Rate from SpO2 Sensor 82 79 Pulse Rhythm [Apical] Pulse Strength [Apical] Respiratory Rate 16 20 Respiratory Effort / Characteristics Respiratory Depth Respiratory Pattern Blood Pressure 131/92 Blood Pressure [Right Arm] Blood Pressure Mean 103 Blood Pressure Mean [Right Arm] Blood Pressure Position [Right Arm] Pulse Oximetry 98 97 Oxygen Delivery Method Oxygen Flow Rate Sepsis Recent Fever Within 48 Hours Sepsis New/Unexplained Change in Mental Status Sepsis Action Taken by Nursing 07/14/24 18:00 07/14/24 18:00 07/14/24 18:00 Temperature Temperature Source Pulse Rate 80 Pulse Rate [Apical] 79 Pulse Rate from SpO2 Sensor 80 Pulse Rhythm [Apical] Pulse Strength [Apical] Respiratory Rate 15 16 Respiratory Effort / Characteristics Respiratory Depth Normal Respiratory Pattern Blood Pressure 124/92 Blood Pressure [Right Arm] 124/92 Blood Pressure Mean 101 Blood Pressure Mean [Right Arm] 102 Blood Pressure Position [Right Arm] Pulse Oximetry 98 100 Oxygen Delivery Method Room Air Oxygen Flow Rate Sepsis Recent Fever Within 48 Hours Sepsis New/Unexplained Change in Mental Status Sepsis Action Taken by Nursing 07/14/24 18:15 07/14/24 18:15 07/14/24 18:24 Temperature Temperature Source Pulse Rate 76 Pulse Rate [Apical] 80 Pulse Rate from SpO2 Sensor 78 Pulse Rhythm [Apical] Pulse Strength [Apical] Respiratory Rate 14 16 Respiratory Effort / Characteristics Respiratory Depth Respiratory Pattern Blood Pressure 128/94 Blood Pressure [Right Arm] 128/94 Blood Pressure Mean 105 Blood Pressure Mean [Right Arm] 105 Blood Pressure Position [Right Arm] Pulse Oximetry 100 97 Oxygen Delivery Method Room Air Oxygen Flow Rate Sepsis Recent Fever Within 48 Hours Sepsis New/Unexplained Change in Mental Status Sepsis Action Taken by Nursing 07/14/24 18:30 07/14/24 18:30 07/14/24 18:30 Temperature Temperature Source Pulse Rate 77 Pulse Rate [Apical] 78 Pulse Rate from SpO2 Sensor 77 Pulse Rhythm [Apical] Pulse Strength [Apical] Respiratory Rate 14 14 Respiratory Effort / Characteristics Respiratory Depth Respiratory Pattern Blood Pressure 149/100 H Blood Pressure [Right Arm] 149/100 H Blood Pressure Mean 115 Blood Pressure Mean [Right Arm] 116 Blood Pressure Position [Right Arm] Pulse Oximetry 98 99 Oxygen Delivery Method Oxygen Flow Rate Sepsis Recent Fever Within 48 Hours Sepsis New/Unexplained Change in Mental Status Sepsis Action Taken by Nursing 07/14/24 18:42 07/14/24 18:45 07/14/24 18:45 Temperature Temperature Source Pulse Rate 76 Pulse Rate [Apical] 77 Pulse Rate from SpO2 Sensor 76 Pulse Rhythm [Apical] Pulse Strength [Apical] Respiratory Rate 16 12 Respiratory Effort / Characteristics Respiratory Depth Respiratory Pattern Blood Pressure 148/99 H Blood Pressure [Right Arm] 148/99 H Blood Pressure Mean 112 Blood Pressure Mean [Right Arm] 115 Blood Pressure Position [Right Arm] Pulse Oximetry 99 99 Oxygen Delivery Method Room Air Oxygen Flow Rate Sepsis Recent Fever Within 48 Hours Sepsis New/Unexplained Change in Mental Status Sepsis Action Taken by Nursing 07/14/24 18:45 07/14/24 19:52 07/14/24 20:00 Temperature Temperature Source Pulse Rate Pulse Rate [Apical] 75 77 Pulse Rate from SpO2 Sensor Pulse Rhythm [Apical] Regular Regular Pulse Strength [Apical] Normal Normal Respiratory Rate 15 19 Respiratory Effort / Characteristics Non-Labored Non-Labored Respiratory Depth Normal Normal Respiratory Pattern Regular Regular Blood Pressure 148/99 H Blood Pressure [Right Arm] 109/69 106/70 Blood Pressure Mean 112 Blood Pressure Mean [Right Arm] 82 82 Blood Pressure Position [Right Arm] Lying Lying Pulse Oximetry 99 99 Oxygen Delivery Method Room Air Nasal Cannula Oxygen Flow Rate 2 Sepsis Recent Fever Within 48 Hours Sepsis New/Unexplained Change in Mental Status Sepsis Action Taken by Nursing 07/14/24 20:15 07/14/24 20:30 07/14/24 20:45 Temperature Temperature Source Pulse Rate Pulse Rate [Apical] 75 75 75 Pulse Rate from SpO2 Sensor Pulse Rhythm [Apical] Regular Regular Regular Pulse Strength [Apical] Normal Normal Normal Respiratory Rate 12 12 16 Respiratory Effort / Characteristics Non-Labored Non-Labored Non-Labored Respiratory Depth Normal Normal Normal Respiratory Pattern Regular Regular Regular Blood Pressure Blood Pressure [Right Arm] 108/62 111/78 119/82 Blood Pressure Mean Blood Pressure Mean [Right Arm] 77 89 94 Blood Pressure Position [Right Arm] Lying Lying Pulse Oximetry 99 98 100 Oxygen Delivery Method Nasal Cannula Nasal Cannula Nasal Cannula Oxygen Flow Rate 2 2 2 Sepsis Recent Fever Within 48 Hours Sepsis New/Unexplained Change in Mental Status Sepsis Action Taken by Jail Medications Current Medication List: was personally reviewed by me Laboratory Data Attestation: I reviewed the patient's lab results. 07/14/24 17:22 07/14/24 17:22 Lab Results 07/14/24 07/14/24 07/14/24 Range/Units 17:06 17:12 17:16 WBC (4.8-10.8) K/ul RBC (4.70-6.10) M/uL Hgb (14.0-18.0) g/dl POC Hgb 13.6 L (14.0-18.0) g/dl Hct (42.0-52.0) % POC Hct 40 L (42-52) % MCV (80.0-100.0) fL MCH (25.0-34.0) pg MCHC (32.0-36.0) g/dL RDW Std Deviation (36.4-46.3) fL RDW Coeff of Nick (11.5-14.5) % Plt Count (130-400) K/uL MPV (9.4-12.4) fL Immature Gran % (Auto) % Neut % (Auto) % Lymph % (Auto) % Bailey % (Auto) % Eos % (Auto) % Baso % (Auto) % Neut # (Auto) (1.40-6.50) K/uL Lymph # (Auto) (1.20-3.40) K/uL Bailey # (Auto) (0.11-0.59) K/uL Eos # (Auto) (0.00-0.50) K/uL Baso # (Auto) (0.00-0.20) K/uL Immature Gran # (Auto) (0.01-0.20) K/uL PT 10.2 (9.0-12.0) Seconds INR 0.9 (0.9-1.1) APTT 24 (21-31) Seconds PTT Ratio 0.9 VBG pH 7.26 L (7.36-7.41) VBG pCO2 64 H (38-50) mmHg VBG pO2 27 mmHg VBG HCO3 29 mmol/L VBG O2 Saturation < 60.0 % VBG Base Excess 0.1 mEq/L POC Sodium 132 L (135-144) mmol/L Sodium (136-145) mmol/L POC Potassium 4.5 (3.3-5.0) mmol/L Potassium (3.5-5.1) mmol/L POC Chloride 98 L (101-112) mmol/L Chloride (98-107) mmol/L Carbon Dioxide (21-32) mmol/L POC Total CO2 23 L (24-31) mmol/L Anion Gap (3-11) POC Anion Gap 17.0 (16-25) mmol/L POC BUN 51 H (7-18) mg/dl BUN (6-23) mg/dl Creatinine (0.6-1.4) mg/dl POC Creatinine 3.1 H (0.6-1.3) mg/dl Est Cr Clr Drug Dosing ml/min eGFR BUN/Creatinine Ratio (10-20) Glucose (70-99(Fasting)) mg/dl POC Glucose (other) 388 H* (70-99) mg/dl Lactate (0.4-2.0) mmol/L Calcium (8.6-10.3) mg/dl POC Ioniz Calcium Mariluz 1.18 (1.12-1.32) mmol/l Magnesium (1.7-2.4) mg/dl Total Bilirubin (0.2-1.0) mg/dl Direct Bilirubin (0-0.2) mg/dl AST (13-39) U/L ALT (7-52) U/L Alkaline Phosphatase (34-104) U/L Troponin I High Sens (0-20) pg/ml C-Reactive Protein (0-0.5) mg/dl Total Protein (6.0-8.3) gm/dl Albumin (3.4-5.0) gm/dl Procalcitonin (0-0.5) ng/ml TSH (0.300-4.500) uIu/ml Free T4 (0.61-1.60) ng/dl SARS-CoV-2 (PCR) (Negative) Influenza Type A (PCR) (Neg) Influenza Type B (PCR) (Neg) RSV (RT-PCR) (Neg) 07/14/24 07/14/24 Range/Units 17:22 19:35 WBC 5.92 (4.8-10.8) K/ul RBC 3.84 L (4.70-6.10) M/uL Hgb 11.4 L (14.0-18.0) g/dl POC Hgb (14.0-18.0) g/dl Hct 33.7 L (42.0-52.0) % POC Hct (42-52) % MCV 87.8 (80.0-100.0) fL MCH 29.7 (25.0-34.0) pg MCHC 33.8 (32.0-36.0) g/dL RDW Std Deviation 48.2 H (36.4-46.3) fL RDW Coeff of Nick 15.1 H (11.5-14.5) % Plt Count 264 (130-400) K/uL MPV 10.4 (9.4-12.4) fL Immature Gran % (Auto) 0.3 % Neut % (Auto) 50.4 % Lymph % (Auto) 44.1 % Bailey % (Auto) 4.6 % Eos % (Auto) 0.3 % Baso % (Auto) 0.3 % Neut # (Auto) 2.98 (1.40-6.50) K/uL Lymph # (Auto) 2.61 (1.20-3.40) K/uL Bailey # (Auto) 0.27 (0.11-0.59) K/uL Eos # (Auto) 0.02 (0.00-0.50) K/uL Baso # (Auto) 0.02 (0.00-0.20) K/uL Immature Gran # (Auto) 0.02 (0.01-0.20) K/uL PT (9.0-12.0) Seconds INR (0.9-1.1) APTT (21-31) Seconds PTT Ratio VBG pH (7.36-7.41) VBG pCO2 (38-50) mmHg VBG pO2 mmHg VBG HCO3 mmol/L VBG O2 Saturation % VBG Base Excess mEq/L POC Sodium (135-144) mmol/L Sodium 131 L (136-145) mmol/L POC Potassium (3.3-5.0) mmol/L Potassium 4.5 (3.5-5.1) mmol/L POC Chloride (101-112) mmol/L Chloride 96 L (98-107) mmol/L Carbon Dioxide 26 (21-32) mmol/L POC Total CO2 (24-31) mmol/L Anion Gap 9 (3-11) POC Anion Gap (16-25) mmol/L POC BUN (7-18) mg/dl BUN 52 H (6-23) mg/dl Creatinine 2.92 H (0.6-1.4) mg/dl POC Creatinine (0.6-1.3) mg/dl Est Cr Clr Drug Dosing 17.7 ml/min eGFR 27.48 BUN/Creatinine Ratio 17.8 (10-20) Glucose 376 H* (70-99(Fasting)) mg/dl POC Glucose (other) (70-99) mg/dl Lactate 2.4 H* 0.7 (0.4-2.0) mmol/L Calcium 9.5 (8.6-10.3) mg/dl POC Ioniz Calcium Mariluz (1.12-1.32) mmol/l Magnesium 2.0 (1.7-2.4) mg/dl Total Bilirubin 0.3 (0.2-1.0) mg/dl Direct Bilirubin 0.0 (0-0.2) mg/dl AST 25 (13-39) U/L ALT 30 (7-52) U/L Alkaline Phosphatase 146 H (34-104) U/L Troponin I High Sens 5.5 (0-20) pg/ml C-Reactive Protein 1.17 H (0-0.5) mg/dl Total Protein 8.3 (6.0-8.3) gm/dl Albumin 4.0 (3.4-5.0) gm/dl Procalcitonin 0.15 (0-0.5) ng/ml TSH 24.448 H (0.300-4.500) uIu/ml Free T4 0.84 (0.61-1.60) ng/dl SARS-CoV-2 (PCR) NEGATIVE (Negative) Influenza Type A (PCR) Negative (Neg) Influenza Type B (PCR) Negative (Neg) RSV (RT-PCR) Negative (Neg) Administered Medications Vancomycin HCl 1,000 mg/ (Sodium Chloride) 520 mls @ 200 mls/hr IV NOW ONE Stop: 07/14/24 22:30 Last Admin: 07/14/24 20:49 Dose: 200 mls/hr Documented By: JESSICA Discontinued Medications Sodium Chloride (Nss) 1,000 mls @ 999 mls/hr IV .Q1H1M TERRY Stop: 07/14/24 19:00 Last Infusion: 07/14/24 20:07 Dose: Infused Documented By: Admin: 07/14/24 18:22 Dose: 999 mls/hr Documented By: Infusion: 07/14/24 18:22 Dose: Infused Documented By: Admin: 07/14/24 17:33 Dose: 999 mls/hr Documented By: MARLENE Piperacillin Sod/Tazobactam Sod (Zosyn) 4.5 gm in 100 mls @ 200 mls/hr IV NOW ONE; Protocol Stop: 07/14/24 20:09 Last Infusion: 07/14/24 20:48 Dose: Infused Documented By: Admin: 07/14/24 20:07 Dose: 200 mls/hr Documented By: JESSICA Imaging Data Attestation: I personally reviewed and interpreted this imaging study as follows: My Impression: 1 view chest x-ray was obtained in the emergency department. My interpretation is no free air, there were areas of interstitial prominence noted, final report below. X-ray of the right hand was obtained in the emergency department. Significant degenerative changes were noted. Final report below. CT of the head was obtained in the emergency department. My interpretation is no intracranial hemorrhage or mass effect, final report below. Radiologist's Impression: Chest X-Ray 07/14/24 16:47 EXAM: XR chest 1V portable CLINICAL HISTORY: Sepsis TECHNIQUE: X-ray images of the chest were obtained in posteroanterior (PA) projection. COMPARISON: compared to the previous study dated 06/08/2023 FINDINGS: Pulmonary Parenchyma: Hyperinflated chest A decrease in the previously noted multifocal air space opacities, mainly at the right lower lobe Bilateral mid-lung zone atelactatic band Still noted blunting of the costophrenic angles reflecting mild pleural effusion /pleural thickening. Heart and Mediastinum: Heart size and shape are normal. No mediastinal widening or masses. No hilar or mediastinal lymphadenopathy. Multiple LEDs implicating both chest vazquez Soft Tissues: Soft tissues overlying the chest wall are unremarkable. IMPRESSION: 1. Hyperinflated chest, stable 2. A decrease in the previously noted multifocal air space opacities, mainly at the right lower lobe, course regression 3. Bilateral atelactatic bands, stable 4. Still noted blunting of the costophrenic angles reflecting mild pleural effusion /pleural thickening, stable Electronically signed by Adalberto Godoy 07-14-2024 8:19 PM Hand X-Ray 07/14/24 16:47 EXAM: XR hand RT min 3V routine CLINICAL HISTORY: Prior infection. TECHNIQUE: X-ray images of right hand were obtained in [place], lateral, and oblique projections. COMPARISON: Compared to the previous study dated 06/12/2023. FINDINGS: Bone Structure: Erosion of the distal proximal phalanx of the little finger with a pencil in a cup deformity in relation to the middle phalanx Hyperflexion of the 3rd and 4th proximal interphalangeal joints is likely degenerative rather than positional, especially the 3rd where profound degenerative changes are seen. Erosion of the distal head of the 3rd metacarpal bone Joint Spaces: The rest of Joint spaces are normal. No evidence of joint effusion or subluxation. Soft Tissues: Soft tissues appear normal and unremarkable. No soft tissue swelling, calcifications, or foreign bodies noted. IMPRESSION: 1. Erosion of the middle phalanx of the little finger with a pencil in a cup deformity to the middle phalanx, significant progression. 2. Hyperflexion of the 3rd and 4th proximal interphalangeal joints is likely degenerative rather than positional, new. 3. Punch out erosion of the distal head of the 3rd metacarpal bone with a decrease in the 3rd metacarpophalangeal joint space, significantly worse. 4. Please correlate with MRI if needed to assess soft tissues. Disclaimer: A subtle bone abnormality or fracture may not be readily apparent on X-rays, thus clinical correlation and further imaging including follow-up CT, MRI, or follow-up X-rays are advised as needed. Electronically signed by Adalberto Godoy 07-14-2024 8:[address] 07/14/24 16:49 EXAM: CT cervical spine wo con CLINICAL HISTORY: Falls. TECHNIQUE: CT scan of the cervical spine was performed without the administration of intravenous contrast. Contiguous axial images were obtained from the skull base to the upper thoracic spine. Coronal and sagittal reformatted images were also reviewed. One of the following dose reduction techniques was utilized for this exam. Automated exposure control, adjustment of the mA and/or kV according to patient size, and use of iterative reconstruction. COMPARISON: No previous studies are available for comparison. FINDINGS: Vertebrae: Straightened cervical curve. The vertebral bodies are normal in height. No evidence of acute fracture or dislocation. The cortical and trabecular bone patterns are normal. No signs of lytic or sclerotic lesions. Normal configuration of the posterior elements. Intervertebral Discs: The intervertebral disc spaces are preserved. No evidence of significant disc bulging or herniation. No calcifications or ossifications noted within the discs. Facet Joints: The facet joints are normal without evidence of dislocation, subluxation, or significant degenerative changes. Neural Foramina: The neural foramina are patent bilaterally at all levels. No evidence of foraminal narrowing or nerve root compression. Prevertebral Soft Tissues: The prevertebral soft tissues are normal in thickness without evidence of mass or abnormal fluid collection. Additional Findings: Few gas foci noted within the anterior epidural space as well as around both vertebral arteries in the vertebral foramina. IMPRESSION: 1. Few gas foci noted within the anterior epidural space as well as around both vertebral arteries in the vertebral foramina, could be non specific however, regarding patient history of trauma possibility of Pneumorrhachis(air within the spinal canal) can be excluded. Correlate clinically. 2. No evidence of acute fracture, dislocation, or significant degenerative changes. Electronically signed by Adalberto Godoy 07-14-2024 7:[address] 07/14/24 16:49 EXAM: CT head/brain wo con CLINICAL HISTORY: Falls. TECHNIQUE: Axial non-contrast CT scan of the brain was performed from the skull base to the high parietal region. One of the following dose reduction techniques were utilized for this exam: Automated exposure control, adjustment of the mA and/or kV according to patient size, use of iterative reconstruction. COMPARISON: 04/19/2023 FINDINGS: Brain Parenchyma: Normal attenuation of the cerebral hemispheres, cerebellum, and brainstem. No evidence of acute infarct, hemorrhage, or mass effect. No abnormal areas of hypo- or hyperattenuation. Ventricular System: Ventricles are normal in size and configuration. No evidence of hydrocephalus or ventricular enlargement. Persistent cavum septum pellucidum (normal variant) Subarachnoid Spaces: Normal sulci and cisterns. No evidence of subarachnoid hemorrhage or extra-axial fluid collections. Cerebellum and Brainstem: Normal size and signal. No masses, lesions, or areas of abnormal density. Orbits: Normal appearance of the globes, optic nerves, and extraocular muscles. No evidence of orbital masses or abnormal density. Sinuses: Clear paranasal sinuses. No evidence of sinusitis or mucosal thickening. Mastoid Air Cells: Clear mastoid air cells. No evidence of mastoiditis. Skull: Normal skull morphology. IMPRESSION: 1. Normal CT of the head without contrast. 2. No significant interval change. Electronically signed by Adalberto Godoy 07-14-2024 7:22 PM Discharge Plan Visit Data Chief Complaint: Syncope (Near Syncope) Stated Complaint: SYNCOPLE EPISODES ED Provider: Brody Lino Discharge Problem: ANTOLIN (acute kidney injury), Acute hyperglycemia, Acute hypotension, Acute respiratory acidosis, Osteomyelitis Patient Disposition: Being Evaluated by Hospitalist Forms Stand Alone Forms: My [facility] [place] [employer] Prescriptions Prescriptions: No Action Methadone 116 mg PO DAILY quetiapine 300 mg tablet 150 mg PO HS levothyroxine 200 mcg tablet 200 mcg PO QAM insulin aspart U-100 [Novolog U-100 Insulin aspart] 100 unit/mL solution 2 - 3 unit SUBCUT ACHS gabapentin 300 mg capsule 300 mg PO TID Rx Instructions: LAST FILLED 03/27/24 FOR 30 DAYS/90 CAPS. insulin glargine [Lantus Solostar U-100 Insulin] 100 unit/mL (3 mL) Insulin Pen 4 unit SUBCUT PM Qty: 3 0RF Referrals Referrals: Av Graves MD [Primary Care Provider] -
[2024-07-14 17:27] LABS: Base Excess VBG 0.1 mEq/L; HCO3 VBG 29 mmol/L; Oxygen Saturation VBG < 60.0 %; PCO2 VBG 64 mmHg (38-50); PO2 VBG 27 mmHg; pH VBG 7.26 (7.36-7.41)
[2024-07-14] MEDS: SODIUM CHLORIDE 0.9% 1,000 ML IV SCH ×2 (17:33→23:35)
[2024-07-14 17:39] LABS: iSTAT Creatinine 3.1 mg/dl (0.6-1.3); iSTAT Hemoglobin 13.6 g/dl (14.0-18.0); iSTAT Ionized Calcium 1.18 mmol/l (1.12-1.32); iSTAT Potassium 4.5 mmol/L (3.3-5.0)
[2024-07-14 17:40] LABS: Basophils # (auto) 0.02 K/uL (0.00-0.20); Basophils % (auto) 0.3 %; Eosinophils # (auto) 0.02 K/uL (0.00-0.50); Eosinophils % (auto) 0.3 %; Hematocrit (blood only) 33.7 % (42.0-52.0); Hemoglobin 11.4 g/dl (14.0-18.0); Immature Granulocytes # (auto) 0.02 K/uL (0.01-0.20); Immature Granulocytes % (auto) 0.3 %; Lymphocytes # (auto) 2.61 K/uL (1.20-3.40); Lymphocytes % (auto) 44.1 %; Mean Corpuscular Hemoglobin 29.7 pg (25.0-34.0); Mean Corpuscular Hgb Conc 33.8 g/dL (32.0-36.0); Mean Corpuscular Volume 87.8 fL (80.0-100.0); Mean Platelet Volume 10.4 fL (9.4-12.4); Monocytes # (auto) 0.27 K/uL (0.11-0.59); Monocytes % (auto) 4.6 %; Neutrophils # (auto) 2.98 K/uL (1.40-6.50); Neutrophils % (auto) 50.4 %; Platelet Count 264 K/uL (130-400); RDW Coefficient of Variation 15.1 % (11.5-14.5); RDW Standard Deviation 48.2 fL (36.4-46.3); Red Blood Count 3.84 M/uL (4.70-6.10); White Blood Count 5.92 K/ul (4.8-10.8)
[2024-07-14 18:20] LABS: Influenza A virus by PCR Negative (Neg); Influenza B virus by PCR Negative (Neg); RSV by PCR Negative (Neg); SARS CoV2 RNA(COVID-19) Ceph NEGATIVE (Negative)
[2024-07-14 18:23] LABS: INR 0.9 (0.9-1.1); Partial Thromboplastin Ratio 0.9; Partial Thromboplastin Time 24 Seconds (21-31); Prothrombin Time 10.2 Seconds (9.0-12.0)
[2024-07-14 18:26] LABS: Bilirubin,Total 0.3 mg/dl (0.2-1.0); Calcium 9.5 mg/dl (8.6-10.3); Potassium 4.5 mmol/L (3.5-5.1)
[2024-07-14 18:37] LABS: Troponin I High Sensitivity 5.5 pg/ml (0-20)
[2024-07-14 18:39] LABS: BUN Creatinine Ratio 17.8 (10-20); C Reactive Protein 1.17 mg/dl (0-0.5); Creatinine Clr Calc Pharmacy 17.7 ml/min; Total Protein 8.3 gm/dl (6.0-8.3)
[2024-07-14 18:47] LABS: Thyroid Stimulating Hormone 24.448 uIu/ml (0.300-4.500)
--- NOTE | 2024-07-14 19:22 | CT Scan Report ---
EXAM: CT head/brain wo con CLINICAL HISTORY: Falls. TECHNIQUE: Axial non-contrast CT scan of the brain was performed from the skull base to the high parietal region. One of the following dose reduction techniques were utilized for this exam: Automated exposure control, adjustment of the mA and/or kV according to patient size, use of iterative reconstruction. COMPARISON: 04/19/2023 FINDINGS: Brain Parenchyma: Normal attenuation of the cerebral hemispheres, cerebellum, and brainstem. No evidence of acute infarct, hemorrhage, or mass effect. No abnormal areas of hypo- or hyperattenuation. Ventricular System: Ventricles are normal in size and configuration. No evidence of hydrocephalus or ventricular enlargement. Persistent cavum septum pellucidum (normal variant) Subarachnoid Spaces: Normal sulci and cisterns. No evidence of subarachnoid hemorrhage or extra-axial fluid collections. Cerebellum and Brainstem: Normal size and signal. No masses, lesions, or areas of abnormal density. Orbits: Normal appearance of the globes, optic nerves, and extraocular muscles. No evidence of orbital masses or abnormal density. Sinuses: Clear paranasal sinuses. No evidence of sinusitis or mucosal thickening. Mastoid Air Cells: Clear mastoid air cells. No evidence of mastoiditis. Skull: Normal skull morphology. IMPRESSION: 1. Normal CT of the head without contrast. 2. No significant interval change. Electronically signed by Adalberto Godoy 07-14-2024 7:22 PM
[2024-07-14 19:30] LABS: T4 Free Thyroxine 0.84 ng/dl (0.61-1.60)
--- NOTE | 2024-07-14 19:39 | CT Scan Report ---
EXAM: CT cervical spine wo con CLINICAL HISTORY: Falls. TECHNIQUE: CT scan of the cervical spine was performed without the administration of intravenous contrast. Contiguous axial images were obtained from the skull base to the upper thoracic spine. Coronal and sagittal reformatted images were also reviewed. One of the following dose reduction techniques was utilized for this exam. Automated exposure control, adjustment of the mA and/or kV according to patient size, and use of iterative reconstruction. COMPARISON: No previous studies are available for comparison. FINDINGS: Vertebrae: Straightened cervical curve. The vertebral bodies are normal in height. No evidence of acute fracture or dislocation. The cortical and trabecular bone patterns are normal. No signs of lytic or sclerotic lesions. Normal configuration of the posterior elements. Intervertebral Discs: The intervertebral disc spaces are preserved. No evidence of significant disc bulging or herniation. No calcifications or ossifications noted within the discs. Facet Joints: The facet joints are normal without evidence of dislocation, subluxation, or significant degenerative changes. Neural Foramina: The neural foramina are patent bilaterally at all levels. No evidence of foraminal narrowing or nerve root compression. Prevertebral Soft Tissues: The prevertebral soft tissues are normal in thickness without evidence of mass or abnormal fluid collection. Additional Findings: Few gas foci noted within the anterior epidural space as well as around both vertebral arteries in the vertebral foramina. IMPRESSION: 1. Few gas foci noted within the anterior epidural space as well as around both vertebral arteries in the vertebral foramina, could be non specific however, regarding patient history of trauma possibility of Pneumorrhachis(air within the spinal canal) can be excluded. Correlate clinically. 2. No evidence of acute fracture, dislocation, or significant degenerative changes. Electronically signed by Adalberto Godoy 07-14-2024 7:39 PM
[2024-07-14] MEDS ORDERED: VANCOMYCIN CONSULT ACTIVE PRN (19:55)
[2024-07-14] MEDS: PIPERACILLIN/TAZOBACTAM 4.5 GM/100 ML BAG IV ONE (20:07)
--- NOTE | 2024-07-14 20:16 | XRay Report ---
EXAM: XR hand RT min 3V routine CLINICAL HISTORY: Prior infection. TECHNIQUE: X-ray images of right hand were obtained in PA, lateral, and oblique projections. COMPARISON: Compared to the previous study dated 06/12/2023. FINDINGS: Bone Structure: Erosion of the distal proximal phalanx of the little finger with a pencil in a cup deformity in relation to the middle phalanx Hyperflexion of the 3rd and 4th proximal interphalangeal joints is likely degenerative rather than positional, especially the 3rd where profound degenerative changes are seen. Erosion of the distal head of the 3rd metacarpal bone Joint Spaces: The rest of Joint spaces are normal. No evidence of joint effusion or subluxation. Soft Tissues: Soft tissues appear normal and unremarkable. No soft tissue swelling, calcifications, or foreign bodies noted. IMPRESSION: 1. Erosion of the middle phalanx of the little finger with a pencil in a cup deformity to the middle phalanx, significant progression. 2. Hyperflexion of the 3rd and 4th proximal interphalangeal joints is likely degenerative rather than positional, new. 3. Punch out erosion of the distal head of the 3rd metacarpal bone with a decrease in the 3rd metacarpophalangeal joint space, significantly worse. 4. Please correlate with MRI if needed to assess soft tissues. Disclaimer: A subtle bone abnormality or fracture may not be readily apparent on X-rays, thus clinical correlation and further imaging including follow-up CT, MRI, or follow-up X-rays are advised as needed. Electronically signed by Adalberto Godoy 07-14-2024 8:15 PM
--- NOTE | 2024-07-14 20:20 | XRay Report ---
EXAM: XR chest 1V portable CLINICAL HISTORY: Sepsis TECHNIQUE: X-ray images of the chest were obtained in posteroanterior (PA) projection. COMPARISON: compared to the previous study dated 06/08/2023 FINDINGS: Pulmonary Parenchyma: Hyperinflated chest A decrease in the previously noted multifocal air space opacities, mainly at the right lower lobe Bilateral mid-lung zone atelactatic band Still noted blunting of the costophrenic angles reflecting mild pleural effusion /pleural thickening. Heart and Mediastinum: Heart size and shape are normal. No mediastinal widening or masses. No hilar or mediastinal lymphadenopathy. Multiple LEDs implicating both chest vazquez Soft Tissues: Soft tissues overlying the chest wall are unremarkable. IMPRESSION: 1. Hyperinflated chest, stable 2. A decrease in the previously noted multifocal air space opacities, mainly at the right lower lobe, course regression 3. Bilateral atelactatic bands, stable 4. Still noted blunting of the costophrenic angles reflecting mild pleural effusion /pleural thickening, stable Electronically signed by Adalberto Godoy 07-14-2024 8:19 PM
[2024-07-14] MEDS: VANCOMYCIN HCL 1,000 MG in SODIUM CHLORIDE 0.9% 500 ML IV ONE (20:49)
[2024-07-14] MEDS ORDERED: DEXTROSE 50% 50 ML SYRINGE IV PRN (23:08)
[2024-07-14] MEDS ORDERED: GLUCOSE 10 TAB/TUBE PO PRN (23:08)
[2024-07-14] MEDS ORDERED: GLUCAGON FOR INJ 1 MG VIAL SQ PRN (23:08)
[2024-07-14] MEDS ORDERED: ACETAMINOPHEN 325 MG TAB PO PRN (23:08)
[2024-07-14] MEDS ORDERED: GLUCOSE 40% GEL 15 GM TUBE PO PRN (23:08)
[2024-07-14] MEDS ORDERED: NITROGLYCERIN SL 0.4 MG/TAB TAB SL PRN (23:08)
[2024-07-14] MEDS ORDERED: CARBOHYDRATES FOR HYPOGLYCEMIA PO PRN (23:08)
[2024-07-14] MEDS ORDERED: PHARMACY GLYCEMIC MGMT CONSULT PRN (23:08)
[2024-07-15] MEDS ORDERED: PIPERACILLIN/TAZOBACTAM 4.5 GM/100 ML BAG IV SCH ×3 (00:30→16:00)
[2024-07-15] MEDS: PIPERACILLIN/TAZOBACTAM 4.5 GM/100 ML BAG IV SCH ×2 (03:49→14:11)
--- NOTE | 2024-07-15 05:36 | History & Physical Report ---
Date of Service July 14, 2024 Assessment & Plan (1) Sepsis: Plan: 39-year-old male with past medical history significant for syncope and collapse, history of hyponatremia, bipolar disorder, major depressive disorder episode, history of ANTOLIN, history of hypotension, history of ongoing methamphetamine abuse, severe protein calorie malnutrition, type 1 diabetes with diabetic polyneuropathy, severe hypothyroidism, presents with syncopal episodes. Patient was discharged from [facility] on 06/09/24 after 6 weeks of hospital for IV Ancef for osteomyelitis and status post I&D x 2 for right upper extremity abscess. He was again admitted to [facility] on 06/26/2024 and discharged on 06/30/2024 for syncope and fall. He has ongoing chronic loose stools and his GI pathogen panel and C. difficile were all negative as per discharge summary and GI recommend outpatient colonoscopy. He smokes 1 pack of cigarettes daily. Ongoing methamphetamines. Last methamphetamine use was 2 days ago as per patient. In [facility] his TSH was greater than 100 due to noncompliance and received IV Synthroid. He also had episode of severe hypoglycemia with blood glucose 18 improved with dextrose. He declined rehab for methamphetamine and was discharged on 06/30/24. Patient lives with his parents. His mother states patient is very weak and needs assistance with ambulation. Whenever he standing he is feeling dizzy and is passing out. He passes out for few seconds. Having multiple episodes of syncope.. He was feeling stiff during the episode. He is also having a lot of nausea and diarrhea and not able to eat anything. Patient alert and oriented. Denies any headache. No runny nose or sore throat. Denies any chest pain. Denies shortness of breath. Denies abdominal pain. Micturating okay. He was hypotensive received fluids. His creatinine was 2.9. Also having hyperglycemia. Initial lactic acid 2.4 and repeat is 0.7. TSH is 24.4 and free T40.8. COVID flu and RSV negative. Resting comfortably currently. Still has open wound in between right fingers. Sepsis With hypotension with sbp in 60s on presntation and elevated lactic acid Currently improved Chronic osteomyelitis of right hand on x-ray seems progression In May was in [facility] for 6 weeks of IV Ancef Currently placed IV Vanco and Zosyn ID consult and Ortho consult IV fluids Close monitor Syncope History of syncope and collapse hypotensive on presentation Getting fluids Will follow echo and repeat labs Telemetry Cardiology consult Antolin cr 2.9 recent cr 1.4 avoid nephrotoxic meds will follow labs Hypothyroidism Continue current levothyroxine Needs close follow-up and repeat labs Diabetes Sliding scale and lantus Will follow HbA1c levels Glycemic pharmacy consult Bipolar disorder Depression Continue home medications Ongoing methamphetamine use Counseling On methadone Ongoing tobacco abuse will f/u repeat vbg nebs prn Anemia hb 10.1 will check iron studies, vitam b12 and folate levels st0ol for hemeoccult Severe protein calorie malnutrition poor oral intake Dietitian consult DVT prophylaxis SCDs for now Disposition Telemetry Full code History of Present Illness Chief Complaint: Syncope Primary Care Provider: Av Graves MD 39-year-old male with past medical history significant for syncope and collapse, history of hyponatremia, bipolar disorder, major depressive disorder episode, history of ANTOLIN, history of hypotension, history of ongoing methamphetamine abuse, severe protein calorie malnutrition, type 1 diabetes with diabetic polyneuropathy, severe hypothyroidism, presents with syncopal episodes. Patient was discharged from [facility] on 06/09/24 after 6 weeks of hospital for IV Ancef for osteomyelitis and status post I&D x 2 for right upper extremity abscess. He was again admitted to [facility] on 06/26/2024 and discharged on 06/30/2024 for syncope and fall. He has ongoing chronic loose stools and his GI pathogen panel and C. difficile were all negative as per discharge summary and GI recommend outpatient colonoscopy. He smokes 1 pack of cigarettes daily. Ongoing methamphetamines. Last methamphetamine use was 2 days ago as per patient. In [facility] his TSH was greater than 100 due to noncompliance and received IV Synthroid. He also had episode of severe hypoglycemia with blood glucose 18 improved with dextrose. He declined rehab for methamphetamine and was discharged on 06/30/24. Patient lives with his parents. His mother states patient is very weak and needs assistance with ambulation. Whenever he standing he is feeling dizzy and is passing out. He passes out for few seconds. Having multiple episodes of syncope.. He was feeling stiff during the episode. He is also having a lot of nausea and diarrhea and not able to eat anything. Patient alert and oriented. Denies any headache. No runny nose or sore throat. Denies any chest pain. Denies shortness of breath. Denies abdominal pain. Micturating okay. He was hypotensive received fluids. His creatinine was 2.9. Also having hyperglycemia. Initial lactic acid 2.4 and repeat is 0.7. TSH is 24.4 and free T40.8. COVID flu and RSV negative. Resting comfortably currently. Still has open wound in between right fingers. Past medical history. As mentioned above Past surgical history. Drainage of the right forearm/wrist lesion on 04/24/2024 Social history smokes 0.5/1 pack a day. Vapes nicotine, TSH, flavoring. No alcohol use. Using methamphetamines last was 2 days ago. Family history. Aunt has alcoholism. Father alcoholism. Mother alcoholism. Mother has mental disorder. Uncle has mental disorder. Allergies Allergy/AdvReac Type Severity Reaction Status Date / Time No Known Allergies Allergy Verified 07/14/24 18:31 Home Medications Medication Instructions Recorded Confirmed Type Methadone 116 mg PO DAILY 04/19/23 07/14/24 History gabapentin 300 mg capsule 300 mg PO TID 06/08/23 07/14/24 History insulin glargine 100 unit/mL (3 4 unit (0.04 mL) subcut PM #3 mL 06/14/23 07/14/24 Rx mL) subcutaneous pen (Lantus Solostar U-100 Insulin) insulin aspart U-100 100 unit/mL 2 - 3 unit subcut ACHS 07/14/24 07/14/24 History subcutaneous solution (Novolog U-100 Insulin aspart) levothyroxine 200 mcg tablet 200 mcg PO QAM 07/14/24 07/14/24 History quetiapine 300 mg tablet 150 mg PO HS 07/14/24 07/14/24 History Past Med/Surg History Problem List (Updated 07/15/24 @ 05:45 by Deny Batista MD) Sepsis Osteomyelitis (Acute) Acute respiratory acidosis (Acute) Acute hypotension (Acute) Acute hyperglycemia (Acute) ANTOLIN (acute kidney injury) (Acute) Finger osteomyelitis, right Osteomyelitis, hand Severe protein-calorie malnutrition Elevated INR Multifocal pneumonia Influenza A (Acute) Elevated procalcitonin (Acute) Hypomagnesemia (Acute) Acute hypoxemic respiratory failure (Acute) Pneumonia (Acute) Generalized weakness (Acute) Underweight Methadone use Opioid use disorder Bipolar disorder Tobacco use disorder Methamphetamine use Non compliance w medication regimen Hypothyroidism Diabetes type I Medical History Asymptomatic bacteriuria Pneumocephalus, traumatic Neuropathy Compulsive skin picking ADHD Mixed dyslipidemia History of pneumonia Multifocal necrotizing pneumonia with ARDS in Dec 2021, required intubation Osteomyelitis of right hand Acute urinary retention Surgical History No pertinent past surgical history Family History Other Alcohol dependence with other alcohol-induced disorder Mood disorder Social History Smoking Status: Current every day smoker Tobacco Type: Cigarettes packs per day: 0.5; Cigarettes Per Day: 1 pack per day; Second Hand Exposure: Yes; Hx Alcohol Use: No (Pt denies) Hx Substance Use: No (Pt denies) Preferred Language: [place] Citizen Communication Ability: Effective Call Center Specialist Required: No Beliefs That Will Affect Care: None Current Living Situation: Parent Current Living Situation Comment: MOTHER Other Information That Helps Us Care for You: No Feels Safe at Home: Yes Safety Concerns: Feels Safe At This Time Assistive Devices: Cane and Glasses Review of Systems Review of Systems: All systems reviewed & are unremarkable except as noted in HPI & below Physical Exam Physical Exam: General-Not in distress Head- atraumatic Eyes- PERRL. ENT- oropharynx clear Neck- supple, no JVD. Lungs- clear to auscultation no wheezing or crackles Heart- regular rate and rhythm; no murmur, no gallop. Abdomen- normal bowel sounds, soft, nontender, no distension Extremities- no pretibial edema, no erythema seen Neuro- alert, oriented PERRL, no facial palsy; no dysarthria; moves extremities Skin- open ulcer in between 2-3 right fingers Results & Data Results & Data Vital Signs (Past 12 Hours) Vital Signs Temp Pulse Pulse Resp BP BP Pulse Ox 07/14/24 21:15 76 07/14/24 20:45 75 16 119/82 100 07/14/24 20:30 75 12 111/78 98 07/14/24 20:15 75 12 108/62 99 07/14/24 20:00 77 19 106/70 99 07/14/24 19:52 75 15 109/69 99 07/14/24 18:45 148/99 H 07/14/24 18:45 148/99 H 07/14/24 18:45 77 12 148/99 H 99 07/14/24 18:42 76 16 99 07/14/24 18:30 77 14 99 07/14/24 18:30 149/100 H 07/14/24 18:30 78 14 149/100 H 98 07/14/24 18:24 76 16 97 07/14/24 18:15 128/94 07/14/24 18:15 80 14 128/94 100 07/14/24 18:00 80 16 100 07/14/24 18:00 124/92 07/14/24 18:00 79 15 124/92 98 07/14/24 17:51 80 20 97 07/14/24 17:45 82 16 98 07/14/24 17:45 131/92 07/14/24 17:45 131/92 07/14/24 17:45 131/92 07/14/24 17:45 131/92 07/14/24 17:45 131/92 07/14/24 17:45 80 14 131/92 99 07/14/24 17:42 83 14 99 07/14/24 17:36 82 13 98 07/14/24 17:33 117/78 07/14/24 17:33 117/78 07/14/24 17:30 81 15 117/78 96 07/14/24 17:21 84 14 100 07/14/24 17:17 123/79 07/14/24 17:17 123/79 07/14/24 17:15 84 15 123/79 100 07/14/24 17:11 110/80 07/14/24 17:11 110/80 07/14/24 17:00 36.8 C 07/14/24 16:59 88 07/14/24 16:58 99 07/14/24 16:57 134/87 07/14/24 16:57 85 14 134/87 99 07/14/24 16:54 87 14 100 07/14/24 16:51 86 13 97 07/14/24 16:50 68/45 L 07/14/24 16:50 68/45 L 07/14/24 16:50 68/45 L 07/14/24 16:39 37.7 C H 88 18 60/41 L 98 O2 Del Method O2 Flow Rate 07/14/24 21:15 07/14/24 20:45 Nasal Cannula 2 07/14/24 20:30 Nasal Cannula 2 07/14/24 20:15 Nasal Cannula 2 07/14/24 20:00 Nasal Cannula 2 07/14/24 19:52 Room Air 07/14/24 18:45 07/14/24 18:45 07/14/24 18:45 Room Air 07/14/24 18:42 07/14/24 18:30 07/14/24 18:30 07/14/24 18:30 07/14/24 18:24 07/14/24 18:15 07/14/24 18:15 Room Air 07/14/24 18:00 07/14/24 18:00 07/14/24 18:00 Room Air 07/14/24 17:51 07/14/24 17:45 07/14/24 17:45 07/14/24 17:45 07/14/24 17:45 07/14/24 17:45 07/14/24 17:45 07/14/24 17:45 Room Air 07/14/24 17:42 07/14/24 17:36 07/14/24 17:33 07/14/24 17:33 07/14/24 17:30 Room Air 07/14/24 17:21 07/14/24 17:17 07/14/24 17:17 07/14/24 17:15 Room Air 07/14/24 17:11 07/14/24 17:11 07/14/24 17:00 07/14/24 16:59 07/14/24 16:58 Room Air 07/14/24 16:57 07/14/24 16:57 Room Air 07/14/24 16:54 07/14/24 16:51 07/14/24 16:50 07/14/24 16:50 07/14/24 16:50 07/14/24 16:39 Room Air Diagnostic Findings Laboratory Results WBC 5.92 K/ul (4.8-10.8) 07/14/24 17:22 RBC 3.84 M/uL (4.70-6.10) L 07/14/24 17:22 Hgb 11.4 g/dl (14.0-18.0) L 07/14/24 17:22 POC Hgb 13.6 g/dl (14.0-18.0) L 07/14/24 17:12 Hct 33.7 % (42.0-52.0) L 07/14/24 17:22 POC Hct 40 % (42-52) L 07/14/24 17:12 MCV 87.8 fL (80.0-100.0) 07/14/24 17:22 MCH 29.7 pg (25.0-34.0) 07/14/24 17:22 MCHC 33.8 g/dL (32.0-36.0) 07/14/24 17:22 RDW Std Deviation 48.2 fL (36.4-46.3) H 07/14/24 17:22 RDW Coeff of Nick 15.1 % (11.5-14.5) H 07/14/24 17:22 Plt Count 264 K/uL (130-400) 07/14/24 17:22 MPV 10.4 fL (9.4-12.4) 07/14/24 17:22 Immature Gran % (Auto) 0.3 % 07/14/24 17:22 Neut % (Auto) 50.4 % 07/14/24 17:22 Lymph % (Auto) 44.1 % 07/14/24 17:22 Hoke % (Auto) 4.6 % 07/14/24 17:22 Eos % (Auto) 0.3 % 07/14/24 17:22 Baso % (Auto) 0.3 % 07/14/24 17:22 Neut # (Auto) 2.98 K/uL (1.40-6.50) 07/14/24 17:22 Lymph # (Auto) 2.61 K/uL (1.20-3.40) 07/14/24 17:22 Hoke # (Auto) 0.27 K/uL (0.11-0.59) 07/14/24 17:22 Eos # (Auto) 0.02 K/uL (0.00-0.50) 07/14/24 17:22 Baso # (Auto) 0.02 K/uL (0.00-0.20) 07/14/24 17:22 Immature Gran # (Auto) 0.02 K/uL (0.01-0.20) 07/14/24 17:22 PT 10.2 Seconds (9.0-12.0) 07/14/24 17:16 INR 0.9 (0.9-1.1) 07/14/24 17:16 APTT 24 Seconds (21-31) 07/14/24 17:16 PTT Ratio 0.9 07/14/24 17:16 VBG pH 7.26 (7.36-7.41) L 07/14/24 17:06 VBG pCO2 64 mmHg (38-50) H 07/14/24 17:06 VBG pO2 27 mmHg 07/14/24 17:06 VBG HCO3 29 mmol/L 07/14/24 17:06 VBG O2 Saturation < 60.0 % 07/14/24 17:06 VBG Base Excess 0.1 mEq/L 07/14/24 17:06 POC Sodium 132 mmol/L (135-144) L 07/14/24 17:12 Sodium 131 mmol/L (136-145) L 07/14/24 17:22 POC Potassium 4.5 mmol/L (3.3-5.0) 07/14/24 17:12 Potassium 4.5 mmol/L (3.5-5.1) 07/14/24 17:22 POC Chloride 98 mmol/L (101-112) L 07/14/24 17:12 Chloride 96 mmol/L (98-107) L 07/14/24 17:22 Carbon Dioxide 26 mmol/L (21-32) 07/14/24 17:22 POC Total CO2 23 mmol/L (24-31) L 07/14/24 17:12 Anion Gap 9 (3-11) 07/14/24 17:22 POC Anion Gap 17.0 mmol/L (16-25) 07/14/24 17:12 POC BUN 51 mg/dl (7-18) H 07/14/24 17:12 BUN 52 mg/dl (6-23) H 07/14/24 17:22 Creatinine 2.92 mg/dl (0.6-1.4) H 07/14/24 17:22 POC Creatinine 3.1 mg/dl (0.6-1.3) H 07/14/24 17:12 Est Cr Clr Drug Dosing 17.7 ml/min 07/14/24 17:22 eGFR 27.48 07/14/24 17:22 BUN/Creatinine Ratio 17.8 (10-20) 07/14/24 17:22 Glucose 376 mg/dl (70-99(Fasting)) H* 07/14/24 17:22 POC Glucose 207 mg/dl (70-99) H 07/14/24 23:15 POC Glucose (other) 388 mg/dl (70-99) H* 07/14/24 17:12 Lactate 0.7 mmol/L (0.4-2.0) 07/14/24 19:35 Calcium 9.5 mg/dl (8.6-10.3) 07/14/24 17:22 POC Ioniz Calcium Mariluz 1.18 mmol/l (1.12-1.32) 07/14/24 17:12 Magnesium 2.0 mg/dl (1.7-2.4) 07/14/24 17:22 Total Bilirubin 0.3 mg/dl (0.2-1.0) 07/14/24 17:22 Direct Bilirubin 0.0 mg/dl (0-0.2) 07/14/24 17:22 AST 25 U/L (13-39) 07/14/24 17:22 ALT 30 U/L (7-52) 07/14/24 17:22 Alkaline Phosphatase 146 U/L (34-104) H 07/14/24 17:22 Troponin I High Sens 5.5 pg/ml (0-20) 07/14/24 17:22 C-Reactive Protein 1.17 mg/dl (0-0.5) H 07/14/24 17:22 Total Protein 8.3 gm/dl (6.0-8.3) 07/14/24 17:22 Albumin 4.0 gm/dl (3.4-5.0) 07/14/24 17:22 Procalcitonin 0.15 ng/ml (0-0.5) 07/14/24 17:22 TSH 24.448 uIu/ml (0.300-4.500) H 07/14/24 17:22 Free T4 0.84 ng/dl (0.61-1.60) 07/14/24 17:22 SARS-CoV-2 (PCR) NEGATIVE (Negative) 07/14/24 17:22 Influenza Type A (PCR) Negative (Neg) 07/14/24 17:22 Influenza Type B (PCR) Negative (Neg) 07/14/24 17:22 RSV (RT-PCR) Negative (Neg) 07/14/24 17:22 Impressions Chest X-Ray 07/14/24 16:47 EXAM: XR chest 1V portable CLINICAL HISTORY: Sepsis TECHNIQUE: X-ray images of the chest were obtained in posteroanterior (PA) projection. COMPARISON: compared to the previous study dated 06/08/2023 FINDINGS: Pulmonary Parenchyma: Hyperinflated chest A decrease in the previously noted multifocal air space opacities, mainly at the right lower lobe Bilateral mid-lung zone atelactatic band Still noted blunting of the costophrenic angles reflecting mild pleural effusion /pleural thickening. Heart and Mediastinum: Heart size and shape are normal. No mediastinal widening or masses. No hilar or mediastinal lymphadenopathy. Multiple LEDs implicating both chest vazquez Soft Tissues: Soft tissues overlying the chest wall are unremarkable. IMPRESSION: 1. Hyperinflated chest, stable 2. A decrease in the previously noted multifocal air space opacities, mainly at the right lower lobe, course regression 3. Bilateral atelactatic bands, stable 4. Still noted blunting of the costophrenic angles reflecting mild pleural effusion /pleural thickening, stable Electronically signed by Adalberto Godoy 07-14-2024 8:19 PM Hand X-Ray 07/14/24 16:47 EXAM: XR hand RT min 3V routine CLINICAL HISTORY: Prior infection. TECHNIQUE: X-ray images of right hand were obtained in PA, lateral, and oblique projections. COMPARISON: Compared to the previous study dated 06/12/2023. FINDINGS: Bone Structure: Erosion of the distal proximal phalanx of the little finger with a pencil in a cup deformity in relation to the middle phalanx Hyperflexion of the 3rd and 4th proximal interphalangeal joints is likely degenerative rather than positional, especially the 3rd where profound degenerative changes are seen. Erosion of the distal head of the 3rd metacarpal bone Joint Spaces: The rest of Joint spaces are normal. No evidence of joint effusion or subluxation. Soft Tissues: Soft tissues appear normal and unremarkable. No soft tissue swelling, calcifications, or foreign bodies noted. IMPRESSION: 1. Erosion of the middle phalanx of the little finger with a pencil in a cup deformity to the middle phalanx, significant progression. 2. Hyperflexion of the 3rd and 4th proximal interphalangeal joints is likely degenerative rather than positional, new. 3. Punch out erosion of the distal head of the 3rd metacarpal bone with a decrease in the 3rd metacarpophalangeal joint space, significantly worse. 4. Please correlate with MRI if needed to assess soft tissues. Disclaimer: A subtle bone abnormality or fracture may not be readily apparent on X-rays, thus clinical correlation and further imaging including follow-up CT, MRI, or follow-up X-rays are advised as needed. Electronically signed by Adalberto Godoy 07-14-2024 8:[address] 07/14/24 16:49 EXAM: CT cervical spine wo con CLINICAL HISTORY: Falls. TECHNIQUE: CT scan of the cervical spine was performed without the administration of intravenous contrast. Contiguous axial images were obtained from the skull base to the upper thoracic spine. Coronal and sagittal reformatted images were also reviewed. One of the following dose reduction techniques was utilized for this exam. Automated exposure control, adjustment of the mA and/or kV according to patient size, and use of iterative reconstruction. COMPARISON: No previous studies are available for comparison. FINDINGS: Vertebrae: Straightened cervical curve. The vertebral bodies are normal in height. No evidence of acute fracture or dislocation. The cortical and trabecular bone patterns are normal. No signs of lytic or sclerotic lesions. Normal configuration of the posterior elements. Intervertebral Discs: The intervertebral disc spaces are preserved. No evidence of significant disc bulging or herniation. No calcifications or ossifications noted within the discs. Facet Joints: The facet joints are normal without evidence of dislocation, subluxation, or significant degenerative changes. Neural Foramina: The neural foramina are patent bilaterally at all levels. No evidence of foraminal narrowing or nerve root compression. Prevertebral Soft Tissues: The prevertebral soft tissues are normal in thickness without evidence of mass or abnormal fluid collection. Additional Findings: Few gas foci noted within the anterior epidural space as well as around both vertebral arteries in the vertebral foramina. IMPRESSION: 1. Few gas foci noted within the anterior epidural space as well as around both vertebral arteries in the vertebral foramina, could be non specific however, regarding patient history of trauma possibility of Pneumorrhachis(air within the spinal canal) can be excluded. Correlate clinically. 2. No evidence of acute fracture, dislocation, or significant degenerative changes. Electronically signed by Adalberto Godoy 07-14-2024 7:[address] 07/14/24 16:49 EXAM: CT head/brain wo con CLINICAL HISTORY: Falls. TECHNIQUE: Axial non-contrast CT scan of the brain was performed from the skull base to the high parietal region. One of the following dose reduction techniques were utilized for this exam: Automated exposure control, adjustment of the mA and/or kV according to patient size, use of iterative reconstruction. COMPARISON: 04/19/2023 FINDINGS: Brain Parenchyma: Normal attenuation of the cerebral hemispheres, cerebellum, and brainstem. No evidence of acute infarct, hemorrhage, or mass effect. No abnormal areas of hypo- or hyperattenuation. Ventricular System: Ventricles are normal in size and configuration. No evidence of hydrocephalus or ventricular enlargement. Persistent cavum septum pellucidum (normal variant) Subarachnoid Spaces: Normal sulci and cisterns. No evidence of subarachnoid hemorrhage or extra-axial fluid collections. Cerebellum and Brainstem: Normal size and signal. No masses, lesions, or areas of abnormal density. Orbits: Normal appearance of the globes, optic nerves, and extraocular muscles. No evidence of orbital masses or abnormal density. Sinuses: Clear paranasal sinuses. No evidence of sinusitis or mucosal thickening. Mastoid Air Cells: Clear mastoid air cells. No evidence of mastoiditis. Skull: Normal skull morphology. IMPRESSION: 1. Normal CT of the head without contrast. 2. No significant interval change. Electronically signed by Adalberto Godoy 07-14-2024 7:22 PM ECG Additional Comments: ECG. Normal sinus rhythm rate of 88. Right atrial enlargement. Nonspecific T wave abnormality in lateral leads. Code Status & VTE Plan VTE Prophylaxis Plan VTE Prophylaxis will be ordered: Yes
[2024-07-15 05:47] LABS: Basophils # (auto) 0.02 K/uL (0.00-0.20); Basophils % (auto) 0.6 %; Eosinophils # (auto) 0.04 K/uL (0.00-0.50); Eosinophils % (auto) 1.1 %; Hematocrit (blood only) 29.9 % (42.0-52.0); Hemoglobin 10.1 g/dl (14.0-18.0); Immature Granulocytes # (auto) 0.01 K/uL (0.01-0.20); Immature Granulocytes % (auto) 0.3 %; Lymphocytes # (auto) 1.26 K/uL (1.20-3.40); Lymphocytes % (auto) 34.7 %; Mean Corpuscular Hgb Conc 33.8 g/dL (32.0-36.0); Mean Corpuscular Volume 88.7 fL (80.0-100.0); Mean Platelet Volume 9.4 fL (9.4-12.4); Monocytes # (auto) 0.23 K/uL (0.11-0.59); Monocytes % (auto) 6.3 %; Neutrophils # (auto) 2.07 K/uL (1.40-6.50); Platelet Count 256 K/uL (130-400); RDW Coefficient of Variation 14.8 % (11.5-14.5); RDW Standard Deviation 48.3 fL (36.4-46.3); Red Blood Count 3.37 M/uL (4.70-6.10); White Blood Count 3.63 K/ul (4.8-10.8)
[2024-07-15 06:00] LABS: Base Excess VBG -1.8 mEq/L; HCO3 VBG 25 mmol/L; Oxygen Saturation VBG 96.2 %; PCO2 VBG 48 mmHg (38-50); PO2 VBG 70 mmHg; pH VBG 7.32 (7.36-7.41)
[2024-07-15 06:02] LABS: BUN Creatinine Ratio 18.3 (10-20); Calcium 8.5 mg/dl (8.6-10.3); Creatinine Clr Calc Pharmacy 28.7 ml/min; Magnesium 1.7 mg/dl (1.7-2.4)
[2024-07-15] MEDS: LEVOTHYROXINE SODIUM 200 MCG TABLET PO SCH (06:04)
[2024-07-15 06:09] LABS: Troponin I High Sensitivity 5.6 pg/ml (0-20)
[2024-07-15 06:57] LABS: Folate (Folic Acid),Ser orPlas 21.35 ng/ml (>5.38)
[2024-07-15] MEDS ORDERED: LEVALBUTEROL 1.25 MG/3 ML NEB NEB PRN (07:12)
[2024-07-15] MEDS ORDERED: INSULIN ASPART PER UNIT CHARGE SC SCH (07:30)
[2024-07-15] MEDS ORDERED: VANCOMYCIN 500 MG in NSS 100mL IV SCH (08:00)
[2024-07-15 08:15] LABS: Estimated Average Glucose 226 mg/dl; Hemoglobin A1C 9.5 % (4.5-5.6)
--- NOTE | 2024-07-15 08:29 | Cardiology Consultation ---
Date of Consultation July 15, 2024 Assessment & Plan (1) Orthostatic syncope: (2) Acute hypotension: (3) Sepsis: Plan 1) H/o syncope and collapse 2) Hypotension on presentation 3) Sepsis Admitted for syncopal episodes: -EKG on 07/14/24 showed Normal sinus rhythm. Nonspecific T-wave abnormality in lateral leads. Right atrial enlargement. -EKG from 07/15/24 showed Normal sinus rhythm. -Echo 07/15/24 shows LVEF 50-55%. All valve structures are well visualized without vegetation or valvular dysfunction. -Denies chest pain, SOB. -Troponin HS WNL, electrolytes overall stable. -Lab work 07/15/24 shows anemia with Hgb 10.1. -C/o weakness and dizziness when standing. -C/o diarrhea. -Malnutrition -Dehydration -Meth use x15 years, last 4 days ago. -Hypothyroidism - noncompliant with medication. -Has tolerated midodrine in the past with good results, per patient. Was discontinued for unknown reason. May consider restarting. -Recommend proper nutrition and hydration. -Recommend thyroid medication compliance. -Recommend discontinuing use of meth. Hypotension: -BP 68/45 on admission, 07/14/24 -Received 2 L IV fluids on 07/15/24 -BP 118/72, P 69 today -Patient was previously on Midodrine with good results. There is no contraindication from a cardiac perspective. This medication may be restarted. Sepsis: -ongoing management per primary team and ID. -Reviewed echocardiogram in detail with Dr. Peralta. Very crisp images identified with no vegetation or valvular dysfunction. A SARA would not be beneficial in this case. Case discussed with Dr. Peralta. Further recommendations pending his evaluation and assessment I spent a total of 60 minutes on the date of service in preparation, delivery, and documentation of the care provided to this patient, excluding any time spent in the performance of separately billed services. Soha Bradley, PAEyalC Department of Cardiology, [facility] This chart was completed in part utilizing Speech Voice Recognition Software. Grammatical errors, random word insertions, pronoun errors, and incomplete sentences are an occasional consequence of this system due to software limitations, ambient noise, and hardware issues. Any formal questions or concerns about the content, text, or information contained within the body of this dictation should be directly addressed to the provider for clarification. Supervising Physician Co-Signing Physician Notes Patient seen and personally examined, chart, medications, telemetry reviewed. Full assessment and plan as outlined by advanced provider above. Care and management discussed and personally endorsed Impression: Complex 39-year-old with chronic debilitation recent extended care therapies for osteomyelitis past history of orthostatic hypotension and significant hypothyroidism. Admitted after orthostatic syncope with evidence of prerenal azotemia. Patient has responded to fluid resuscitation infectious causes being investigated Echocardiogram today with excellent visualization of valve structures with normal valve structures and preserved LV systolic function Recommendations and plan as above could consider resumption of midodrine urged medication compliance including thyroid replacement History of Present Illness Reason for Consultation: History of syncope Hypotension on presentation Requesting Physician: Dr. Deny Batista Attending Physician: Jordy Chowdhury DO History of Present Illness 39-year-old male admitted for syncopal episodes. Medical history includes hypotension, ANTOLIN, ongoing methamphetamine abuse, severe protein calorie malnutrition, T1DM, hypothyroidism, bipolar disorder, and depression. Discharged on 06/09/24 after 6 weeks IV Ancef for osteomyelitis. Admitted at [facility] on 06/26/24 x4 days for syncope and fall. Last methamphetamine use on 07/12/24 per patient. Denies chest pain, SOB. BP 68/45 on admission, received 2 L of IV fluids. BP 118/72, P 69 today. EKG reviewed from 07/14/24: Normal sinus rhythm. Nonspecific T-wave abnormality in lateral leads. Right atrial enlargement. EKG reviewed from 07/15/24: Normal sinus rhythm. Echo reviewed from 07/15/24: Extremely high quality transthoracic study with excellent visualization of valve structures. LV is normal in size. Normal LV wall thickness. No regional wall motion abnormalities noted. LVEF 50-55% All valve structures are well visualized without vegetation or valvular dysf unction. There is trace mitral tricuspid insufficiency only. At time of evaluation this morning, patient was comfortably resting in bed, eating breakfast. Denies chest pain, SOB. C/o weakness, dizziness when standing. Admits to meth abuse, last use 4 days ago, per patient. Noncompliant with hypothyroidism medications. Admits to poor nutritional intake and poor hydration. Review of telemetry shows SR with rates 60s-80s. No acute events overnight. Allergies Allergy/AdvReac Type Severity Reaction Status Date / Time No Known Allergies Allergy Verified 07/14/24 18:31 Home Medications Medication Instructions Recorded Confirmed Type Methadone 116 mg PO DAILY 04/19/23 07/14/24 History gabapentin 300 mg capsule 300 mg PO TID 06/08/23 07/14/24 History insulin glargine 100 unit/mL (3 4 unit (0.04 mL) subcut PM #3 mL 06/14/23 07/14/24 Rx mL) subcutaneous pen (Lantus Solostar U-100 Insulin) insulin aspart U-100 100 unit/mL 2 - 3 unit subcut ACHS 07/14/24 07/14/24 History subcutaneous solution (Novolog U-100 Insulin aspart) levothyroxine 200 mcg tablet 200 mcg PO QAM 07/14/24 07/14/24 History quetiapine 300 mg tablet 150 mg PO HS 07/14/24 07/14/24 History Patient History Medical History Asymptomatic bacteriuria Pneumocephalus, traumatic Neuropathy Compulsive skin picking ADHD Mixed dyslipidemia History of pneumonia Multifocal necrotizing pneumonia with ARDS in Dec 2021, required intubation Osteomyelitis of right hand Acute urinary retention Surgical History No pertinent past surgical history Family History Other Alcohol dependence with other alcohol-induced disorder Mood disorder Social History Smoking Status: Current every day smoker Tobacco Type: Cigarettes packs per day: 0.5; Cigarettes Per Day: 1 pack per day; Second Hand Exposure: Yes; Hx Alcohol Use: No (Pt denies) Hx Substance Use: No (Pt denies) Preferred Language: French Communication Ability: Effective Avionics Safety Inspector Required: No Beliefs That Will Affect Care: None Current Living Situation: Parent Current Living Situation Comment: MOTHER Other Information That Helps Us Care for You: No Feels Safe at Home: Yes Safety Concerns: Feels Safe At This Time Assistive Devices: Cane and Glasses Review of Systems Review of Systems: All systems reviewed & are unremarkable except as noted in HPI & below Constitutional: as per Subjective / HPI Respiratory: as per Subjective / HPI; no dyspnea, no dyspnea on exertion, no hemoptysis and no wheezing Cardiovascular: as per Subjective / HPI and + syncope; no chest pain, no chest pain at rest, no dyspnea at rest, no palpitations and no edema Gastrointestinal: + diarrhea/loose stools Genitourinary: no difficulty urinating or no hematuria Musculoskeletal: + muscle weakness; no joint pain Integumentary: as per Subjective / HPI Neurologic: + falls, + generalized weakness and + sy ncope Psychiatric: + depression Physical Exam Constitutional: + cachectic, cooperative, comfortable an d + malnourished Eyes: PERRL, conjunctivae normal, anicteric sclerae Neck: normal visual inspection and trachea midline Respiratory: normal respiratory effort, lungs clear to auscultation Cardiovascular: RRR, no murmur, no edema Vessels: dorsalis pedis pulses present; no JVD Extremities: no edema Skin: no rashes, warm and dry Psychiatric: A+Ox3, euthymic affect Results & Data Vital Signs (Past 12 Hours) Vital Signs Temp Pulse Pulse Resp BP Pulse Ox O2 Del Method 07/15/24 07:30 36.8 C 69 20 118/72 98 Room Air 07/15/24 02:48 Nasal Cannula 07/15/24 02:39 36.5 C 68 18 113/74 100 Nasal Cannula 07/14/24 22:53 77 07/14/24 22:50 36.7 C 78 18 114/74 100 Nasal Cannula 07/14/24 22:00 70 13 151/100 H 100 Nasal Cannula 07/14/24 21:30 73 14 149/98 H 100 Nasal Cannula 07/14/24 21:15 77 12 152/102 H 100 Nasal Cannula 07/14/24 21:15 76 07/14/24 21:00 77 12 138/99 100 Nasal Cannula 07/14/24 20:45 75 16 119/82 100 Nasal Cannula 07/14/24 20:30 75 12 111/78 98 Nasal Cannula O2 Flow Rate 07/15/24 07:30 07/15/24 02:48 2 07/15/24 02:39 2 07/14/24 22:53 07/14/24 22:50 2 07/14/24 22:00 2 07/14/24 21:30 2 07/14/24 21:15 2 07/14/24 21:15 07/14/24 21:00 2 07/14/24 20:45 2 07/14/24 20:30 2 Laboratory Results Cardiac Enzymes 07/14/24 07/15/24 Range/Units 17:22 05:20 AST 25 (13-39) U/L Troponin I High Sens 5.5 5.6 (0-20) pg/ml Coagulation 07/14/24 Range/Units 17:16 PT 10.2 (9.0-12.0) Seconds APTT 24 (21-31) Seconds CBC 07/14/24 07/15/24 Range/Units 17:22 05:20 WBC 5.92 3.63 L (4.8-10.8) K/ul RBC 3.84 L 3.37 L (4.70-6.10) M/uL Hgb 11.4 L 10.1 L (14.0-18.0) g/dl Hct 33.7 L 29.9 L (42.0-52.0) % Plt Count 264 256 (130-400) K/uL Neut # (Auto) 2.98 2.07 (1.40-6.50) K/uL Lymph # (Auto) 2.61 1.26 (1.20-3.40) K/uL [place] # (Auto) 0.27 0.23 (0.11-0.59) K/uL Eos # (Auto) 0.02 0.04 (0.00-0.50) K/uL Baso # (Auto) 0.02 0.02 (0.00-0.20) K/uL Comprehensive Metabolic Panel 07/14/24 07/15/24 Range/Units 17:22 05:20 Sodium 131 L 138 (136-145) mmol/L Potassium 4.5 4.0 (3.5-5.1) mmol/L Chloride 96 L 108 H (98-107) mmol/L Carbon Dioxide 26 25 (21-32) mmol/L BUN 52 H 40 H (6-23) mg/dl Creatinine 2.92 H 2.19 H D (0.6-1.4) mg/dl Glucose 376 H* 73 (70-99(Fasting)) mg/dl Calcium 9.5 8.5 L (8.6-10.3) mg/dl Direct Bilirubin 0.0 (0-0.2) mg/dl AST 25 (13-39) U/L ALT 30 (7-52) U/L Alkaline Phosphatase 146 H (34-104) U/L Total Protein 8.3 (6.0-8.3) gm/dl Albumin 4.0 (3.4-5.0) gm/dl Intake and Output 07/14/24 07/15/24 07/15/24 22:59 06:59 14:59 Intake Total 3600 / 4120 520 / 4120 100 / 100 Output Total 0 / 950 950 / 950 Balance 3600 / 3170 -430 / 3170 100 / 100 Intake: IV 2100 / 2620 520 / 2620 100 / 100 Piperacillin/Tazobactam 4.5 gm 100 / 100 100 / 100 In 100 ml @ 25 mls/hr IV Q12H [facility] Rx#:[id number] Sodium Chloride 0.9% 1,000 ml @ 2000 / 2000 999 mls/hr IV .Q1H1M [facility] Rx#: [id number] Vancomycin HCl 1,000 mg In 520 / 520 Sodium Chloride 0.9% 500 ml @ 200 mls/hr IV NOW ONE Rx#: [id number] Other 1500 / 1500 Output: Urine 950 / 950 Other 0 / 0 Other: Other Intake Source IV NSS npo Weight 44 kg 44 kg Weight Measurement Method Built in [facility] Diagnostic Findings Telemetry reviewed: NSR, no arrhythmias. SR rates 60s-70s last night, 80s this morning. No acute events overnight. EKG reviewed from 07/14/24: Normal sinus rhythm. Nonspecific T-wave abnormality in lateral leads. Right atrial enlargement. EKG reviewed from 07/15/24: Normal sinus rhythm. Echo reviewed from 07/15/24: Extremely high quality transthoracic study with excellent visualization of valve structures. LV is normal in size. Normal LV wall thickness. No regional wall motion abnormalities noted. LVEF 50-55% All valve structures are well visualized without vegetation or valvular dysfunction. There is trace mitral tricuspid insufficiency only. Medications Administered Current Inpatient Medications Acetaminophen (Acetaminophen 325 Mg Tab) 650 mg PO Q4H PRN PRN Reason: Pain or Fever Stop: 08/13/24 23:07 Dextrose (Dextrose 50% 50 Ml Syringe) 25 - 50 ml IV UD PRN; Protocol PRN Reason: Hypoglycemia Protocol Stop: 08/13/24 23:07 Gabapentin (Gabapentin 300 Mg Cap) 300 mg PO TID [facility] Stop: 08/14/24 08:59 Glucagon (Glucagon For Inj 1 Mg Vial) 1 mg SQ UD PRN; Protocol PRN Reason: Hypoglycemia Protocol Stop: 08/13/24 23:07 Glucose (Glucose 40% Gel 15 Gm Tube) 15 - 30 gm PO UD PRN; Protocol PRN Reason: Hypoglycemia Protocol Stop: 08/13/24 23:07 Glucose (Glucose 10 Tab/Tube) 4 - 8 tab PO UD PRN; Protocol PRN Reason: Hypoglycemia Protocol Stop: 08/13/24 23:07 Sodium Chloride (Nss) 1,000 mls @ 80 mls/hr IV .[id number] [facility] Stop: 07/16/24 00:29 Last Admin: 07/14/24 23:35 Dose: 80 mls/hr Piperacillin Sod/Tazobactam Sod (Zosyn) 4.5 gm in 100 mls @ 25 mls/hr IV Q8H [facility]; Protocol Stop: 07/22/24 11:59 Insulin Aspart (Insulin Aspart Per Unit Charge) 0 units SC Q6 [facility] Stop: 08/14/24 00:00 Last Admin: 07/15/24 06:03 Dose: Not Given Insulin Glargine (Lantus Per Unit Charge) 2 units SQ DAILY [facility] Stop: 08/14/24 08:59 Levalbuterol HCl (Levalbuterol 1.25 Mg/3 Ml Neb) 1.25 mg NEB Q4H PRN PRN Reason: Shortness Of Breath Or Wheezing Stop: 08/14/24 07:11 Levothyroxine Sodium (Levothyroxine Sodium 200 Mcg Tablet) 200 mcg PO DAILYBB [facility] Stop: 08/14/24 06:29 Last Admin: 07/15/24 06:04 Dose: 200 mcg Methadone HCl (Methadone Oral Soln 2 Mg/Ml) 116 mg PO Q24H [facility] Stop: 07/29/24 07:59 Miscellaneous (Carbohydrates For Hypoglycemia ) 15 - 30 gm PO UD PRN PRN Reason: Hypoglycemia Protocol Stop: 08/13/24 23:07 Miscellaneous Information (Vancomycin Consult Active) 1 each N/A UD PRN PRN Reason: Consult Stop: 08/13/24 19:54 Miscellaneous Information (Pharmacy Glycemic Mgmt Consult) 1 each N/A UD PRN PRN Reason: Consult Stop: 08/13/24 23:07 Nitroglycerin (Nitroglycerin Sl 0.4 Mg/Tab Tab) 0.4 mg SL Q5M PRN PRN Reason: Chest Pain Stop: 08/13/24 23:07 Non-Formulary Medication (Patient's Own Controlled Med 1) 1 each N/A Q24H [facility] Stop: 07/29/24 05:59 Quetiapine Fumarate (Quetiapine Fumarate 25 Mg Tablet) 150 mg PO HS [facility] Stop: 08/14/24 20:59
--- NOTE | 2024-07-15 08:47 | Pharmacy Report ---
Pharmacy Glycemic Short Note 2 - Date of Service July 15, 2024 - Glycemic Short BSG Results (Last 24 hours): 07/14/24 07/14/24 07/14/24 17:12 17:22 23:15 Glucose 376 H* POC Glucose 207 H POC Glucose (other) 388 H* 07/15/24 07/15/24 05:20 05:55 Glucose 73 POC Glucose 78 POC Glucose (other) OUTPATIENT ANTIDIABETIC REGIMEN: * Lantus 4 units SC HS * Novolog 2-3 units SC ACHS HbA1c: 9.5% (07/15/24) ASSESSMENT: * is a 39 year old male who presented to ED on 07/14/24 for evaluation of syncopal episodes * Recently discharged from [facility] (~6 week hospitalization for treatment of osteomyelitis of right hand w/ IV cefazolin) * Pharmacy consulted for glycemic management for type 1 diabetes * Hyperglycemic on presentation, but trended down to 78 mg/dL this morning * Originally NPO, but now ordered a diet with breakfast * Last dose of basal insulin was 4 units on evening of 07/13/24 (as reported by patient) PLAN FOR INPATIENT GLYCEMIC CONTROL: * Basal insulin * Lantus 3 units SC x 1 today * Will plan to slowly move dosing back to HS to correlate with home regimen * Bolus insulin * NovoLog per scale ACHS or Q6hrs while NPO * Goal Range: Low 120 mg/dL - High 160 mg/dL * Correction Factor: 50 mg/dL/unit * Nutritional / Prandial insulin per carb ratio of 1 unit per 30 grams CHO consumed
[2024-07-15] MEDS ORDERED: Nursing to Pharmacy Communication SCH (09:00)
[2024-07-15] MEDS ORDERED: HEPARIN SOD 5,000 UNIT/0.5 ML VIAL SQ SCH (09:00)
[2024-07-15] MEDS ORDERED: LANTUS PER UNIT CHARGE SQ SCH (09:00)
[2024-07-15] MEDS: GABAPENTIN 300 MG CAP PO SCH (09:17)
[2024-07-15] MEDS: METHADONE ORAL SOLN 2 MG/ML PO SCH (09:17)
[2024-07-15] MEDS: PATIENT'S OWN CONTROLLED MED 1 SCH (09:18)
--- NOTE | 2024-07-15 09:40 | Pharmacy Report ---
Pharmacy PK ABX Note - Date of Service July 15, 2024 - Assessment and Plan Assessment 39 year old M receiving empiric vancomycin and Zosyn for concern of sepsis possibly secondary to progression of right hand osteomyelitis. Patient was recently discharged from [facility] following 6 weeks of IV cefazolin for right hand osteomyelitis. Pertinent microbiologic data includes: blood cultures x 2 pending. Patient with apparent ANTOLIN (SCr of 2.92 mg/dL on presentation -> now 2.19 mg/dL), baseline SCr ~1-1.2 mg/dL. Orthopedic surgery, cardiology, and ID consulted. Day # 2 of antimicrobial therapy. Plan Vancomycin * Loading dose: 1000 mg IV x 1 * Random level obtained 07/15/24 resulted as 15 mcg/mL. * Will continue to dose by random level given ANTOLIN. * 750 mg IV x 1 today and repeat random level ordered for: 07/16/24 Pharmacy will continue to follow and will adjust dose/frequency as necessary. Thank you. Pharmacy has transitioned to AUC monitoring for vancomycin. AUC/DAISY is the preferred PK/PD target and is associated with decreased risk of nephrotoxicity compared to traditional trough targets.
[2024-07-15] MEDS: LANTUS PER UNIT CHARGE SC ONE (10:20)
[2024-07-15] MEDS: INSULIN ASPART PER UNIT CHARGE SC SCH ×2 (10:20)
[2024-07-15] MEDS: VANCOMYCIN 750 MG in SODIUM CHLORIDE 0.9% 250 ML IV ONE (10:40)
--- NOTE | 2024-07-15 11:51 | Orthopedic Consultation ---
Date of Consultation July 15, 2024 Assessment & Plan (1) Finger osteomyelitis, right: Radiographs of the fingers are reviewed and noted. There is a chronic appearing process which is caused bony destruction at the level of the PIP joint on the right little finger. There appears to be a chronic bony process causing destruction of the middle finger PIP joint. There is a moth-eaten erosion in the periarticular region of the third metacarpal head. No acute fractures are noted there is no dislocations. The wrist is unremarkable and the report is noted. Patient is forthcoming with information but not very clear about the history. He recently had surgery and was at [facility]. We we will get records operative reports imaging etc. For now he can continue on IV antibiotics. I suspect that he has osteomyelitis of his third metacarpal head and probably would require a ray resection. An MRI of the hand with and without contrast is ordered. Will follow-up when the imaging and other information is available. The middle finger is is essentially fixed at the DIP and PIP joints he can either be flexed nor extended. He reports that this began after his most recent surgery which seems like a much more chronic process than a month ago. (2) Osteomyelitis, hand: History of Present Illness Attending Physician: Jordy Chowdhury DO History of Present Illness Patient is 39 years old. [id number]. He reports a several year history of having an infection on the right little finger because of a wound. This has been treated with IV antibiotics but not with surgery. Approximately a year ago the patient had a wound on the middle finger. He reports that since that time he has had problems with that middle finger. Several months ago the patient developed a problem with his right wrist. He was admitted to [facility] where he had surgery on his right wrist for infection. Before that surgery he reports that he had normal use of his right hand. After that he reports diminished ability to move the middle ring and little fingers. He was recently left or released from [facility]. He comes to [facility] because of syncope and falling. He is not having any pain. Allergies Allergy/AdvReac Type Severity Reaction Status Date / Time No Known Allergies Allergy Verified 07/14/24 18:31 Home Medications Medication Instructions Recorded Confirmed Type Methadone 116 mg PO DAILY 04/19/23 07/14/24 History gabapentin 300 mg capsule 300 mg PO TID 06/08/23 07/14/24 History insulin glargine 100 unit/mL (3 4 unit (0.04 mL) subcut PM #3 mL 06/14/23 07/14/24 Rx mL) subcutaneous pen (Lantus Solostar U-100 Insulin) insulin aspart U-100 100 unit/mL 2 - 3 unit subcut ACHS 07/14/24 07/14/24 History subcutaneous solution (Novolog U-100 Insulin aspart) levothyroxine 200 mcg tablet 200 mcg PO QAM 07/14/24 07/14/24 History quetiapine 300 mg tablet 150 mg PO HS 07/14/24 07/14/24 History Patient History Medical History Asymptomatic bacteriuria Pneumocephalus, traumatic Neuropathy Compulsive skin picking ADHD Mixed dyslipidemia History of pneumonia Multifocal necrotizing pneumonia with ARDS in Dec 2021, required intubation Osteomyelitis of right hand Acute urinary retention Surgical History No pertinent past surgical history Family History Other Alcohol dependence with other alcohol-induced disorder Mood disorder Social History Smoking Status: Current every day smoker Tobacco Type: Cigarettes packs per day: 0.5; Cigarettes Per Day: 1 pack per day; Second Hand Exposure: Yes; Hx Alcohol Use: No (Pt denies) Hx Substance Use: No (Pt denies) Preferred Language: Emirati Communication Ability: Effective Clerical Manager Required: No Beliefs That Will Affect Care: None Current Living Situation: Parent Current Living Situation Comment: MOTHER Other Information That Helps Us Care for You: No Feels Safe at Home: Yes Safety Concerns: Feels Safe At This Time Assistive Devices: Cane and Glasses Review of Systems Review of Systems: His health history is noted and reviewed. He uses methamphetamines and smokes daily.He also has opioid use disorder hypothyroidism and diabetes.There is no history of gout. Physical Exam Physical Exam: On physical exam he is awake alert and pleasant. Examination of the right hand reveals a chronic appearing shallow eschar half centimeter wide 2 cm long over the ulnar aspect of the proximal fifth metacarpal. There is no surrounding erythema fluctuance or drainage. The right little finger is foreshortened with limited active and passive movement. It is not swollen or tender and there are no active wounds or drainage. There is a well-healed scar on the volar aspect of the forearm extending to the carpal tunnel. He reports intact sensation in all fingers. He is able to abduct the index and middle finger. He is able to extend the thumb and palmarly abduct the thumb all with normal strength. The index finger nearly extends all the way and flexion is almost full. The ring finger has a fixed flexion contracture and can partially flex but is still several centimeters from the distal palmar crease. There is minimal active movement of the middle and little finger however the little finger does have some improved passive range of motion although not complete. The middle finger is fixed and cannot be extended or flexed. There is maceration between the 3rd and 4th digits in the webspace but there is no open wound or drainage. The middle finger appears mildly swollen towards the base. There is no tenderness to palpation. Otherwise the hand is not tender. Radial pulses 1+ capillary ref ills less than 2 seconds. A hand dressing is applied with some fluffs around the middle finger Results & Data Vital Signs (Past 12 Hours) Vital Signs Temp Pulse Resp BP Pulse Ox O2 Del Method O2 Flow Rate 07/15/24 07:30 36.8 C 69 20 118/72 98 Room Air 07/15/24 02:48 Nasal Cannula 2 07/15/24 02:39 36.5 C 68 18 113/74 100 Nasal Cannula 2 Laboratory Results Laboratory Results WBC 3.63 K/ul (4.8-10.8) L 07/15/24 05:20 RBC 3.37 M/uL (4.70-6.10) L 07/15/24 05:20 Hgb 10.1 g/dl (14.0-18.0) L 07/15/24 05:20 POC Hgb 13.6 g/dl (14.0-18.0) L 07/14/24 17:12 Hct 29.9 % (42.0-52.0) L 07/15/24 05:20 POC Hct 40 % (42-52) L 07/14/24 17:12 MCV 88.7 fL (80.0-100.0) 07/15/24 05:20 MCH 30.0 pg (25.0-34.0) 07/15/24 05:20 MCHC 33.8 g/dL (32.0-36.0) 07/15/24 05:20 RDW Std Deviation 48.3 fL (36.4-46.3) H 07/15/24 05:20 RDW Coeff of Nick 14.8 % (11.5-14.5) H 07/15/24 05:20 Plt Count 256 K/uL (130-400) 07/15/24 05:20 MPV 9.4 fL (9.4-12.4) 07/15/24 05:20 Immature Gran % (Auto) 0.3 % 07/15/24 05:20 Neut % (Auto) 57.0 % 07/15/24 05:20 Lymph % (Auto) 34.7 % 07/15/24 05:20 [place] % (Auto) 6.3 % 07/15/24 05:20 Eos % (Auto) 1.1 % 07/15/24 05:20 Baso % (Auto) 0.6 % 07/15/24 05:20 Neut # (Auto) 2.07 K/uL (1.40-6.50) 07/15/24 05:20 Lymph # (Auto) 1.26 K/uL (1.20-3.40) 07/15/24 05:20 [place] # (Auto) 0.23 K/uL (0.11-0.59) 07/15/24 05:20 Eos # (Auto) 0.04 K/uL (0.00-0.50) 07/15/24 05:20 Baso # (Auto) 0.02 K/uL (0.00-0.20) 07/15/24 05:20 Immature Gran # (Auto) 0.01 K/uL (0.01-0.20) 07/15/24 05:20 PT 10.2 Seconds (9.0-12.0) 07/14/24 17:16 INR 0.9 (0.9-1.1) 07/14/24 17:16 APTT 24 Seconds (21-31) 07/14/24 17:16 PTT Ratio 0.9 07/14/24 17:16 VBG pH 7.32 (7.36-7.41) L 07/15/24 05:51 VBG pCO2 48 mmHg (38-50) 07/15/24 05:51 VBG pO2 70 mmHg 07/15/24 05:51 VBG HCO3 25 mmol/L 07/15/24 05:51 VBG O2 Saturation 96.2 % 07/15/24 05:51 VBG Base Excess -1.8 mEq/L 07/15/24 05:51 POC Sodium 132 mmol/L (135-144) L 07/14/24 17:12 Sodium 138 mmol/L (136-145) 07/15/24 05:20 POC Potassium 4.5 mmol/L (3.3-5.0) 07/14/24 17:12 Potassium 4.0 mmol/L (3.5-5.1) 07/15/24 05:20 POC Chloride 98 mmol/L (101-112) L 07/14/24 17:12 Chloride 108 mmol/L (98-107) H 07/15/24 05:20 Carbon Dioxide 25 mmol/L (21-32) 07/15/24 05:20 POC Total CO2 23 mmol/L (24-31) L 07/14/24 17:12 Anion Gap 5 (3-11) 07/15/24 05:20 POC Anion Gap 17.0 mmol/L (16-25) 07/14/24 17:12 POC BUN 51 mg/dl (7-18) H 07/14/24 17:12 BUN 40 mg/dl (6-23) H 07/15/24 05:20 Creatinine 2.19 mg/dl (0.6-1.4) H D 07/15/24 05:20 POC Creatinine 3.1 mg/dl (0.6-1.3) H 07/14/24 17:12 Est Cr Clr Drug Dosing 28.7 ml/min 07/15/24 05:20 eGFR 38.81 07/15/24 05:20 BUN/Creatinine Ratio 18.3 (10-20) 07/15/24 05:20 Glucose 73 mg/dl (70-99(Fasting)) 07/15/24 05:20 POC Glucose 204 mg/dl (70-99) H 07/15/24 11:37 POC Glucose (other) 388 mg/dl (70-99) H* 07/14/24 17:12 Estimat Average Glucose 226 mg/dl 07/15/24 05:20 Hemoglobin A1c 9.5 % (4.5-5.6) H 07/15/24 05:20 Lactate 0.7 mmol/L (0.4-2.0) 07/14/24 19:35 Calcium 8.5 mg/dl (8.6-10.3) L 07/15/24 05:20 POC Ioniz Calcium Mariluz 1.18 mmol/l (1.12-1.32) 07/14/24 17:12 Magnesium 1.7 mg/dl (1.7-2.4) 07/15/24 05:20 Iron Cancelled 07/15/24 05:54 TIBC Cancelled 07/15/24 05:54 Transferrin Cancelled 07/15/24 05:54 Transferrin % Sat Cancelled 07/15/24 05:54 Total Bilirubin 0.3 mg/dl (0.2-1.0) 07/14/24 17:22 Direct Bilirubin 0.0 mg/dl (0-0.2) 07/14/24 17:22 AST 25 U/L (13-39) 07/14/24 17:22 ALT 30 U/L (7-52) 07/14/24 17:22 Alkaline Phosphatase 146 U/L (34-104) H 07/14/24 17:22 Troponin I High Sens 4.2 pg/ml (0-20) 07/15/24 10:43 C-Reactive Protein 1.17 mg/dl (0-0.5) H 07/14/24 17:22 Total Protein 8.3 gm/dl (6.0-8.3) 07/14/24 17:22 Albumin 4.0 gm/dl (3.4-5.0) 07/14/24 17:22 Vitamin B12 688 pg/ml (180-914) 07/15/24 05:39 Folate 21.35 ng/ml (>5.38) 07/15/24 05:39 Procalcitonin 0.15 ng/ml (0-0.5) 07/14/24 17:22 TSH 24.448 uIu/ml (0.300-4.500) H 07/14/24 17:22 Free T4 0.84 ng/dl (0.61-1.60) 07/14/24 17:22 Random Vancomycin 15.0 mcg/ml (10-20) 07/15/24 08:32 SARS-CoV-2 (PCR) NEGATIVE (Negative) 07/14/24 17:22 Influenza Type A (PCR) Negative (Neg) 07/14/24 17:22 Influenza Type B (PCR) Negative (Neg) 07/14/24 17:22 RSV (RT-PCR) Negative (Neg) 07/14/24 17:22 Impressions Hand X-Ray 07/14/24 16:47 EXAM: XR hand RT min 3V routine CLINICAL HISTORY: Prior infection. TECHNIQUE: X-ray images of right hand were obtained in PA, lateral, and oblique projections. COMPARISON: Compared to the previous study dated 06/12/2023. FINDINGS: Bone Structure: Erosion of the distal proximal phalanx of the little finger with a pencil in a cup deformity in relation to the middle phalanx Hyperflexion of the 3rd and 4th proximal interphalangeal joints is likely degenerative rather than positional, especially the 3rd where profound degenerative changes are seen. Erosion of the distal head of the 3rd metacarpal bone Joint Spaces: The rest of Joint spaces are normal. No evidence of joint effusion or subluxation. Soft Tissues: Soft tissues appear normal and unremarkable. No soft tissue swelling, calcifications, or foreign bodies noted. IMPRESSION: 1. Erosion of the middle phalanx of the little finger with a pencil in a cup deformity to the middle phalanx, significant progression. 2. Hyperflexion of the 3rd and 4th proximal interphalangeal joints is likely degenerative rather than positional, new. 3. Punch out erosion of the distal head of the 3rd metacarpal bone with a decrease in the 3rd metacarpophalangeal joint space, significantly worse. 4. Please correlate with MRI if needed to assess soft tissues. Disclaimer: A subtle bone abnormality or fracture may not be readily apparent on X-rays, thus clinical correlation and further imaging including follow-up CT, MRI, or follow-up X-rays are advised as needed. Electronically signed by Adalberto Godoy 07-14-2024 8:15 PM (2) Osteomyelitis, hand Osteomyelitis type: other chronic
--- NOTE | 2024-07-15 12:21 | Hospitalist Progress Note ---
Date of Service July 15, 2024 Assessment & Plan (1) Orthostatic syncope: (2) Severe protein-calorie malnutrition: (3) Type 1 diabetes mellitus with hypoglycemia: (4) ANTOLIN (acute kidney injury): (5) Chronic osteomyelitis involving hand: (6) Methamphetamine use: (7) Hypothyroidism: (8) Methadone use: Plan Patient presented with syncopal event and initial picture consistent with sepsis, however lower suspicion for sepsis. Patient has chronic osteomyelitis of the hand but did not believe that this is an active infection. Suspect patient's hypotension and acute kidney injury and syncope due to poor oral intake, dehydration, poor compliance with his thyroid medication, methamphetamine use and hypoglycemia due to poor compliance with managing his diabetes most specifically with oral intake. Communication with orthopedic team, they will review patient's x-ray findings of chronic osteomyelitis Communication with infectious disease, initial thoughts are that they did not treat chronic osteomyelitis will continue to evaluate for any other type of infectious process Encouraged oral intake and eating regularly Adjust diabetes management in the setting of hypoglycemia Reviewed cardiology recommendations. Patient may benefit from being restarted on midodrine, concern patient's blood pressure will be chronically low especially if he does not continue to eat and drink well Continue to stressed to patient importance of abstinence from methamphetamine. Patient's anemia most likely combination of nutritional impact as well as subtherapeutic treatment of his hypothyroidism Okay MedSurg 53 minutes reviewing record, evaluation bedside, communication with specialist, documentation Admission and Anticipated Discharge Date Admission Date: July 14, 2024 Subjective Patient presented with recurrent syncope. Readily admits to not eating or drinking much at all. Had been on midodrine in the past for blood pressure support. Also having episodes of hypoglycemia documented here which suspect may have been occurring at home in addition to poor compliance with his Synthroid. Physical Exam Physical Exam: Constitutional: Alert, cachectic, frail HEENT: Mucous membranes moist. Lungs: Clear to auscultation, decreased, no wheezes rales or rhonchi CV: S1-S2, regular Abdomen: Soft, nontender, nondistended Extremities: No significant edema, right thumb and hand deformity from previous surgical intervention and osteomyelitis. Neuro: No focal deficits, generally weak Psych: Cooperative, normal mood Results & Data Results & Data Vital Signs (Past 12 Hours) Vital Signs Temp Pulse Pulse Resp BP Pulse Ox O2 Del Method 07/15/24 11:54 36.9 C 79 20 124/80 97 Nasal Cannula 07/15/24 07:30 36.8 C 69 20 118/72 98 Room Air 07/15/24 06:00 65 07/15/24 02:48 Nasal Cannula 07/15/24 02:39 36.5 C 68 18 113/74 100 Nasal Cannula O2 Flow Rate 07/15/24 11:54 2 07/15/24 07:30 07/15/24 06:00 07/15/24 02:48 2 07/15/24 02:39 2 Laboratory Results Reviewed outpatient EMR. Reviewed surgical reports reviewed discharge summary CBC reviewed, Hemoglobin stable within baseline BMP reviewed Creatinine 2.19, improved Glucose was reviewed, fluctuating between 74 and 229 Blood cultures pending Diagnostic Findings Surgical procedure on 04/24/2024: Initial incision and debridement of right hand and wrist and distal forearm abscess down to tendon and bone. Surgical procedure on : Right forearm and wrist incision and drainage down to tendon and bone with placement of drain (7) Hypothyroidism Hypothyroidism type: unspecified Qualified Code(s): E03.9 - Hypothyroidism, unspecified
[2024-07-15 13:24] LABS: Appearance Urine Clear (Clear); Bacteria Urine Automated None Seen (None Seen); Bilirubin Urine Negative (Negative); Blood Urine Negative (Negative); Cast Urine Automated 0-2 /lpf (0-2); Color Urine Yellow; Epithelial Cell Urine Auto 0-2 /hpf (0-2); Glucose Urine UA 1+ (Negative); Ketones Urine Negative (Negative); Leukocyte Esterase Urine Negative (Negative); Nitrite Urine Negative (Negative); Protein Urine 1+ (Negative); RBC Urine Automated 0-2 /hpf (0-2); Specific Gravity Urine 1.013 (1.000-1.030); Urobilinogen Urine Negative (Negative); WBC Urine Automated 0-5 /hpf (0-5)
--- NOTE | 2024-07-15 13:25 | Infectious Disease Consult ---
Date of Service July 15, 2024 Telehealth Information I performed this visit using a real-time telehealth connection between my location and the patients location ([facility]). After connecting through interactive tele-video, patient was identified by name and date of and/or wristband check.Patient (or authorized healthcare franchise sales representative) was informed that this was a telemedicine visit and it was being conducted confidentially over secure lines. My office door was closed and no on e else was present in the room with me.Patient (or authorized healthcare franchise sales representative) provided consent to proceed with the visit, expressed an understanding of privacy and security of the telemedicine visit, and gave permission to have a hospital franchise sales representative in the room in order to assist with the visit and to conduct portions of the visit, as needed. I informed the patient (or authorized healthcare franchise sales representative) that I reviewed their record and presented the opportunity for them to ask any questions regarding the visit today. The patient agreed to participate. Assessment & Plan (1) Chronic osteomyelitis involving hand: (2) Syncope: (3) Dehydration: (4) Lactic acidosis: Plan There is nothing to suggest an infectious process contributing to the current illness. The changes on the MRI hand suggest chronic erosive/degenerative changes and possibly chronic osteo and doesnt warrant treatment at this point. Also, the whole picture with hypotension and lactic acidosis which responded quickly and appropriately to fluids suggests dehydration or metabolic rather than infection. Therefore, I would recommend discontinuing all antibiotics and monitor off them. Thank you for consulting ID. We will sign off for now. History of Present Illness History of Present Illness Gil is 39-year-old man with medical hx of bipolar disorder, type 1 diabetes with diabetic polyneuropathy, severe hypothyroidism and polysubstance use disord er including methamphetamine abuse who was admitted to [facility] on 07/14 because of syncope. In early Apr 2024, he was admitted to [facility] because of Rt wrist and forearm abscess and osteomyelitis for which he underwent I&D with intra op Cx growing MSSA. He was then treated per our recs with IV cefazolin for total of 6 weeks which he completed on 06/08/2024. He was then readmitted to [facility] on 06/26 because of syncope and ANTOLIN. The syncope was attributed to severe dehydration and severe hypothyroidism with non-adherence to medications. Now, he is presenting to [facility] with persistent syncope, progressive weakness and protein calorie malnutrition. On presentation, he was afebrile, but he was hypotensive at 60/41 which responded to fluids resuscitation quickly and appropriately. His initial work up was impressive for hyponatremia, elevated Cr 2.9 and elevated lactate at 2.4. Xray of the Rt hand showed erosion of the middle phalanx of the little finger with progression. ID team was consulted for further recommendations gisele with high concern for sepsis.Neg except for what was mentioned in H&P. Allergies Allergy/AdvReac Type Severity Reaction Status Date / Time No Known Allergies Allergy Verified 07/14/24 18:31 Home Medications Medication Instructions Recorded Confirmed Type Methadone 116 mg PO DAILY 04/19/23 07/14/24 History gabapentin 300 mg capsule 300 mg PO TID 06/08/23 07/14/24 History insulin glargine 100 unit/mL (3 4 unit (0.04 mL) subcut PM #3 mL 06/14/23 07/14/24 Rx mL) subcutaneous pen (Lantus Solostar U-100 Insulin) insulin aspart U-100 100 unit/mL 2 - 3 unit subcut ACHS 07/14/24 07/14/24 History subcutaneous solution (Novolog U-100 Insulin aspart) levothyroxine 200 mcg tablet 200 mcg PO QAM 07/14/24 07/14/24 History quetiapine 300 mg tablet 150 mg PO HS 07/14/24 07/14/24 History Patient History Medical History Asymptomatic bacteriuria Pneumocephalus, traumatic Neuropathy Compulsive skin picking ADHD Mixed dyslipidemia History of pneumonia Multifocal necrotizing pneumonia with ARDS in Dec 2021, required intubation Osteomyelitis of right hand Acute urinary retention Surgical History No pertinent past surgical history Family History Other Alcohol dependence with other alcohol-induced disorder Mood disorder Social History Smoking Status: Current every day smoker Tobacco Type: Cigarettes packs per day: 0.5; Cigarettes Per Day: 1 pack per day; Second Hand Exposure: Yes; Hx Alcohol Use: No (Pt denies) Hx Substance Use: No (Pt denies) Preferred Language: Uzbek Communication Ability: Effective Supervisor Fur Floor Worker Required: No Beliefs That Will Affect Care: None Current Living Situation: Parent Current Living Situation Comment: MOTHER Other Information That Helps Us Care for You: No Feels Safe at Home: Yes Safety Concerns: Feels Safe At This Time Assistive Devices: Cane and Glasses Review of Systems Neg except for what was mentioned in H&P. Physical Exam Couldnt be performed as the visit was conducted via telemed. Results & Data Vital Signs (Past 12 Hours) Vital Signs Temp Pulse Pulse Resp BP Pulse Ox O2 Del Method 07/15/24 11:54 36.9 C 79 20 124/80 97 Nasal Cannula 07/15/24 07:30 36.8 C 69 20 118/72 98 Room Air 07/15/24 06:00 65 07/15/24 02:48 Nasal Cannula 07/15/24 02:39 36.5 C 68 18 113/74 100 Nasal Cannula O2 Flow Rate 07/15/24 11:54 2 07/15/24 07:30 07/15/24 06:00 07/15/24 02:48 2 07/15/24 02:39 2 Laboratory Results Microbiology: 07/14: 2 sets of blood Cx NTD Diagnostic Findings Imaging: MRI Rt hand on 07/15/2024: IMPRESSION: 1. Chronic fifth proximal phalangeal fracture with incomplete bony fusion and probable pseudoarticulation. 2. Erosive changes of the third metacarpal phalangeal and third PIP joints with third PIP joint dislocation. Correlate clinically to exclude erosive arthropathy versus osteomyelitis. 3. Tendinosis with chronic appearing partial thickness tearing of the third digit flexor tendons. 4. Nonspecific subcutaneous and deep tissue edema of the hand and wrist. No drainable fluid collections.
[2024-07-15] MEDS: GADOBUTROL 65ML VIAL IV ONE (14:05)
--- NOTE | 2024-07-15 15:27 | Magnetic Resonance Report ---
MR hand RT wo/w con HISTORY: 39 years-old Male finger infection acute pain of the right third through fifth fingers with open wound and possible osteomyelitis. COMPARISON: Right hand radiographs 07/14/2024, 06/12/2023 TECHNIQUE: Multiplanar multisequence MRI of the right hand was obtained with and without IV contrast FINDINGS: Motion degraded exam. BONES: Chronic ununited/partially united fracture fracture of the mid diaphyseal fifth proximal phala nx with chronic remodeling/pseudoarticulation again noted. This demonstrates no acute erosive changes or significant marrow edema. Bony erosive changes involving the base of the third proximal phalanx and third metatarsal head and n danie redemonstrated with capsular thickening there is at least moderate narrowing within the distribut ions with ill-defined slightly decreased T1 marrow signal. These findings are new compared to the 05/18 radiographs. There is minimal multifocal osteoarthritis. Bony erosions with volar dislocation of the third PIP joint also represents a change from the 06/12/2023 radiographs. There is marrow edema with corticated margins. Findings compatible with chronic pulmonary injuries of the third and fourth PIP joints. There is diffuse subcutaneous and deep tissue edema. Moderate edema noted within the carpal tunnel. T endinosis with chronic appearing high-grade partial-thickness interstitial tearing involves the third digit flexor tendons at the level of the proximal phalanx. No significant tenosynovitis or retractio n. Trace joint effusion of the wrist. IMPRESSION: 1. Chronic fifth proximal phalangeal fracture with incomplete bony fusion and probable pseudoarticula tion. 2. Erosive changes of the third metacarpal phalangeal and third PIP joints with third PIP joint dislo cation. Correlate clinically to exclude erosive arthropathy versus osteomyelitis. 3. Tendinosis with chronic appearing partial thickness tearing of the third digit flexor tendons. 4. Nonspecific subcutaneous and deep tissue edema of the hand and wrist. No drainable fluid collectio ns. ACT 112: Negative or not required by law. The above report was generated using voice recognition software. It may contain grammatical, syntax o r spelling errors. Electronically signed by: Itz Geiger M.D. 07/15/2024 3:26 PM
[2024-07-15] MEDS: QUEtiapine FUMARATE 25 MG TABLET PO SCH (20:29)
[2024-07-16 09:50] LABS: Hematocrit (blood only) 31.4 % (42.0-52.0); Hemoglobin 10.5 g/dl (14.0-18.0); Mean Corpuscular Hemoglobin 29.9 pg (25.0-34.0); Mean Corpuscular Hgb Conc 33.4 g/dL (32.0-36.0); Mean Corpuscular Volume 89.5 fL (80.0-100.0); Mean Platelet Volume 9.8 fL (9.4-12.4); Platelet Count 278 K/uL (130-400); RDW Coefficient of Variation 15.3 % (11.5-14.5); RDW Standard Deviation 50.3 fL (36.4-46.3); Red Blood Count 3.51 M/uL (4.70-6.10); White Blood Count 4.44 K/ul (4.8-10.8)
[2024-07-16 10:12] LABS: Calcium 8.8 mg/dl (8.6-10.3); Creatinine Clr Calc Pharmacy 32.6 ml/min; Potassium 4.2 mmol/L (3.5-5.1)
--- NOTE | 2024-07-16 10:14 | Orthopedic Progress Note ---
Date of Service July 16, 2024 Assessment & Plan (1) Finger osteomyelitis, right: Plan: Explained to him that after the MRI findings this may potentially not be an acute infection. The antibiotics have been stopped from infectious diseases they also do not feel that it is an infectious process. Dr. Guy states that we may leave him off antibiotics for a few weeks and then consider a biopsy. This may be some form of arthritis. No immediate plans for surgical intervention of his right hand at this time. Change dressings on the right hand as needed. We will obtain an x-ray of the left hand today for comparison. May plan to do a biopsy in a few weeks for further evaluation if needed. Patient is in agreement with the plan currently. Will continue to follow. (2) Osteomyelitis, hand: Admission and Anticipated Discharge Date Admission Date: July 14, 2024 Subjective Patient is resting in bed. Doing well. Denies any pain in his hand. He states "you should have seen this hand and finger months ago". He states that the middle finger had a wound on the one knuckle and the "bone was sticking out". That has healed up. He states that he is pleased with how well his hand looks even though it does not move very well. He tells me that infectious disease stop the antibiotics. Physical Exam Musculoskeletal: Exam of his right hand: Exam essentially unchanged from yesterday. He does not have full extension of the middle or ring finger. No tenderness with palpation. Webspace between the 3rd and 4th fingers was evaluated. Still continues to have some mild bloody drainage due to excoriation of the skin. There is no tenderness. No joint effusions of any of his finger joints. There is no active drainage from the webspace itself. It is nontender to palpation. A new dry dressing was placed with padding between the fingers and wrap around his hand. No edema of the fingers. Results & Data Vital Signs (Past 12 Hours) Vital Signs Temp Pulse Resp BP Pulse Ox O2 Del Method 07/16/24 07:31 36.5 C 67 18 113/77 97 Room Air Laboratory Results 07/14/24 17:03 Aerobic Blood Culture - Preliminary Blood No growth in Aerobic bottle after 24 hours. Anaerobic Blood Culture - Final 07/14/24 16:55 Aerobic Blood Culture - Preliminary Blood No growth in Aerobic bottle after 24 hours. Anaerobic Blood Culture - Preliminary No growth in Anaerobic bottle after 24 hours. 04/30/25 04/30/25 04/30/25 09:22 09:01 08:08 WBC 4.44 L RBC 3.51 L Hgb 10.5 L Hct 31.4 L MCV 89.5 MCH 29.9 MCHC 33.4 RDW Std Deviation 50.3 H RDW Coeff of Nick 15.3 H Plt Count 278 MPV 9.8 POC Glucose 95 69 L* Troponin I High Sens Urine Color Urine Appearance Urine pH Ur Specific [place] Urine Protein Urine Glucose (UA) Urine Ketones Urine Blood Urine Nitrite Urine Bilirubin Urine Urobilinogen Ur Leukocyte Esterase Urine WBC (Auto) Urine RBC (Auto) U Hyaline Cast (Auto) U Epithel Cells (Auto) Urine Bacteria (Auto) 07/16/24 07/15/24 07/15/24 08:06 23:05 20:22 WBC RBC Hgb Hct MCV MCH MCHC RDW Std Deviation RDW Coeff of Nick Plt Count MPV POC Glucose 63 L* 112 H 125 H Troponin I High Sens Urine Color Urine Appearance Urine pH Ur Specific [place] Urine Protein Urine Glucose (UA) Urine Ketones Urine Blood Urine Nitrite Urine Bilirubin Urine Urobilinogen Ur Leukocyte Esterase Urine WBC (Auto) Urine RBC (Auto) U Hyaline Cast (Auto) U Epithel Cells (Auto) Urine Bacteria (Auto) 07/15/24 07/15/24 07/15/24 16:32 13:00 11:37 WBC RBC Hgb Hct MCV MCH MCHC RDW Std Deviation RDW Coeff of Nick Plt Count MPV POC Glucose 102 H 204 H Troponin I High Sens Urine Color Yellow Urine Appearance Clear Urine pH 5.0 Ur Specific [place] 1.013 Urine Protein 1+ H Urine Glucose (UA) 1+ H Urine Ketones Negative Urine Blood Negative Urine Nitrite Negative Urine Bilirubin Negative Urine Urobilinogen Negative Ur Leukocyte Esterase Negative Urine WBC (Auto) 0-5 Urine RBC (Auto) 0-2 U Hyaline Cast (Auto) 0-2 U Epithel Cells (Auto) 0-2 Urine Bacteria (Auto) None Seen 07/15/24 10:43 WBC RBC Hgb Hct MCV MCH MCHC RDW Std Deviation RDW Coeff of Nick Plt Count MPV POC Glucose Troponin I High Sens 4.2 Urine Color Urine Appearance Urine pH Ur Specific [place] Urine Protein Urine Glucose (UA) Urine Ketones Urine Blood Urine Nitrite Urine Bilirubin Urine Urobilinogen Ur Leukocyte Esterase Urine WBC (Auto) Urine RBC (Auto) U Hyaline Cast (Auto) U Epithel Cells (Auto) Urine Bacteria (Auto) Diagnostic Findings Hand MRI 07/15/24 11:30 MR hand RT wo/w con HISTORY: 39 years-old Male finger infection acute pain of the right third through fifth fingers with open wound and possible osteomyelitis. COMPARISON: Right hand radiographs 07/14/2024, 06/12/2023 TECHNIQUE: Multiplanar multisequence MRI of the right hand was obtained with and without IV contrast FINDINGS: Motion degraded exam. BONES: Chronic ununited/partially united fracture fracture of the mid diaphyseal fifth proximal phalanx with chronic remodeling/pseudoarticulation again noted. This demonstrates no acute erosive changes or significant marrow edema. Bony erosive changes involving the base of the third proximal phalanx and third metatarsal head and neck redemonstrated with capsular thickening there is at least moderate narrowing within the distributions with ill-defined slightly decreased T1 marrow signal. These findings are new compared to the 06/12/2023 radiographs. There is minimal multifocal osteoarthritis. Bony erosions with vola r dislocation of the third PIP joint also represents a change from the 06/12/2023 radiographs. There is marrow edema with corticated margins. Findings compatible with chronic pulmonary injuries of the third and fourth PIP joints. There is diffuse subcutaneous and deep tissue edema. Moderate edema noted within the carpal tunnel. Tendinosis with chronic appearing high-grade partial- thickness interstitial tearing involves the third digit flexor tendons at the level of the proximal phalanx. No significant tenosynovitis or retraction. Trace joint effusion of the wrist. IMPRESSION: 1. Chronic fifth proximal phalangeal fracture with incomplete bony fusion and probable pseudoarticulation. 2. Erosive changes of the third metacarpal phalangeal and third PIP joints with third PIP joint dislocation. Correlate clinically to exclude erosive arthropathy versus osteomyelitis. 3. Tendinosis with chronic appearing partial thickness tearing of the third digit flexor tendons. 4. Nonspecific subcutaneous and deep tissue edema of the hand and wrist. No drainable fluid collections. ACT 112: Negative or not required by law. The above report was generated using voice recognition software. It may contain grammatical, syntax or spelling errors. Electronically signed by: Itz Geiger M.D. 07/15/2024 3:26 PM (2) Osteomyelitis, hand Osteomyelitis type: other chronic
--- NOTE | 2024-07-16 11:24 | XRay Report ---
XR hand LT min 3V routine CLINICAL HISTORY: for comparison COMPARISON: Right hand dated 07/14/2024 FINDINGS: 3 views of the left hand demonstrate a similar-appearing and destruction of the PIP joint of the fifth finger with a pseudoarthrosis and pulmonary displacement and slight overlapping of the p roximal and of the middle phalanx in relationship to the distal end of the proximal phalanx. There is no periosteal reaction. There is no significant soft tissue swelling suggesting this is a chronic fi nding. No additional abnormalities are identified involving the left hand. IMPRESSION: PIP joint abnormality involving the fifth digit as described. The findings appear chronic . They are somewhat similar to the findings in the fifth digit in the right hand. ACT 112: Negative or not required by law. Electronically signed by: Herminia Irving M.D. 07/16/2024 11:23 AM
[2024-07-16] MEDS ORDERED: LANTUS PER UNIT CHARGE SC ONE (11:30)
[2024-07-16] MEDS: LANTUS PER UNIT CHARGE SC ONE (12:06)
--- NOTE | 2024-07-16 12:09 | Pharmacy Report ---
Pharmacy Glycemic Short Note 2 - Date of Service July 16, 2024 - Glycemic Short BSG Results (Last 24 hours): 07/15/24 07/15/24 07/15/24 16:32 20:22 23:05 Glucose POC Glucose 102 H 125 H 112 H 07/16/24 07/16/24 07/16/24 08:06 08:08 09:01 Glucose 95 POC Glucose 63 L* 69 L* 07/16/24 07/16/24 09:22 11:27 Glucose POC Glucose 95 111 H OUTPATIENT ANTIDIABETIC REGIMEN: * Lantus 4 units SC HS * Novolog 2-3 units SC ACHS HbA1c: 9.5% (07/15/24) ASSESSMENT: 07/16/24: * Blood sugars labile yesterday, ranging 78-204 mg/dL * Received 3 units of basal and 2 units of bolus (5 units total) * Fasting blood sugar of 69 mg/dL this morning -> will decrease basal today * No immediate plans for surgical intervention, antibiotics discontinued 07/15/24: * is a 39 year old male who presented to ED on 07/14/24 for evaluation of syncopal episodes * Recently discharged from [facility] (~6 week hospitalization for treatment of osteomyelitis of right hand w/ IV cefazolin) * Pharmacy consulted for glycemic management for type 1 diabetes * Hyperglycemic on presentation, but trended down to 78 mg/dL this morning * Originally NPO, but now ordered a diet with breakfast * Last dose of basal insulin was 4 units on evening of 07/13/24 (as reported by patient) PLAN FOR INPATIENT GLYCEMIC CONTROL: * Basal insulin - decrease * Lantus 2 units SC x 1 at lunch, continue to step back to HS * Bolus insulin * NovoLog per scale ACHS or Q6hrs while NPO * Goal Range: Low 120 mg/dL - High 160 mg/dL * Correction Factor: 50 mg/dL/unit * Nutritional / Prandial insulin per carb ratio of 1 unit per 30 grams CHO consumed
--- NOTE | 2024-07-16 14:10 | Hospitalist Progress Note ---
Date of Service July 16, 2024 Assessment & Plan (1) Orthostatic syncope: (2) ANTOLIN (acute kidney injury): Plan: Suspect ATN from hypotension (3) Severe protein-calorie malnutrition: (4) Type 1 diabetes mellitus with hypoglycemia: (5) Chronic osteomyelitis involving hand: Plan: Versus chronic inflammatory arthritis (6) Methamphetamine use: (7) Hypothyroidism: (8) Methadone use: Plan Patient with recurrent syncopal events most likely combination of orthostasis, neurocardiogenic syncope, hypoglycemia, volume depletion, and untreated hyp othyroidism Add midodrine to patient's medical regimen, still orthostatic despite adequate fluid resuscitation Continue current Synthroid dosing, recheck TSH in 4 to 6 weeks Lantus insulin continuing to be adjusted per pharmacy protocol. Suspect patient tolerance of insulin may improve when patient's renal function returns to baseline. Continue to avoid hypoglycemia Continue to encourage oral intake Continue to monitor renal function, anticipate discontinuing to improve as patient's blood pressure and hydration status improves Reviewed orthopedic consultation and evaluation. Appreciate thoughts on possible and inflammatory/psoriatic arthritis as etiology of patient's chronic findings on imaging of his hand. Will arrange for outpatient rheumatology evaluation Blood cultures remain sterile, continue to monitor off antibiotics Patient quite unsteady with ambulation. Therapy evaluation. May be a candidate for rehab Admission and Anticipated Discharge Date Admission Date: July 14, 2024 Subjective Patient had near syncopal event last evening when he was walking to his new room. Contusion of his face. This is similar to what happens at home. Confirms that he has been on midodrine in the past. Recurrent issues with hypoglycemia again this morning Physical Exam Physical Exam: Constitutional: Alert, nontoxic HEENT: Mucous membranes moist. Lungs: Clear to auscultation, decreased, no wheezes rales or rhonchi CV: S1-S2, regular Abdomen: Soft, nontender, nondistended Extremities: No significant edema, right hand deformities, no erythema, no warmth, no significant tenderness, well-healed surgical scars Neuro: No focal deficits Psych: Cooperative, normal mood Results & Data Results & Data Vital Signs (Past 12 Hours) Vital Signs Temp Pulse Resp BP Pulse Ox O2 Del Method 07/16/24 11:57 36.4 C L 78 20 115/82 99 Room Air 07/16/24 07:31 36.5 C 67 18 113/77 97 Room Air Diagnostic Findings Reviewed imaging, laboratory and diagnostic studies. Pertinent findings as below. Glucose reviewed,63, 69, 111 Creatinine 1.93, improved WBCs 4.4 Hemoglobin 10.5 ESR 43 (7) Hypothyroidism Hypothyroidism type: unspecified Qualified Code(s): E03.9 - Hypothyroidism, unspecified
[2024-07-16] MEDS: MIDODRINE HCL 2.5 MG TAB PO SCH (17:31)
[2024-07-16] MEDS: PROMETHAZINE 6.25 MG/50.25 ML BAG IV STA (20:06)
[2024-07-16] MEDS: LOPERAMIDE HCL 2 MG CAP PO SCH (20:09)
[2024-07-16] MEDS: FAMOTIDINE 20 MG TAB PO SCH (20:09)
[2024-07-16] MEDS: CALCIUM POLYCARBOPHIL 625MG TAB PO SCH (20:10)
[2024-07-17 08:20] LABS: BUN Creatinine Ratio 14.6 (10-20); Calcium 8.7 mg/dl (8.6-10.3)
--- NOTE | 2024-07-17 09:11 | Electrocardiogram Report ---
Test Reason : Blood Pressure : */* mmHG Vent. Rate : 88 BPM Atrial Rate : 88 BPM P-R Int : 118 ms QRS Dur : 84 ms QT Int : 370 ms P-R-T Axes : 84 90 62 degrees QTcB Int : 447 ms Normal sinus rhythm Right atrial enlargement Rightward axis Pulmonary disease pattern Abnormal ECG When compared with ECG of 08-Jun-2023 09:32, Nonspecific T wave abnormality now evident in Lateral leads Confirmed by Cuauhtemoc Welch ([id number]) on 07/17/2024 9:10:31 AM Referred By: REFERRED SELF Confirmed By: Cuauhtemoc Welch
--- NOTE | 2024-07-17 09:13 | Gastrointestinal Consultation ---
Date of Consultation July 17, 2024 Assessment & Plan (1) Diarrhea: 39 year old male with history of bipolar disorder, major depressive disorder episode, methamphetamine abuse, severe protein calorie malnutrition, type 1 diabetes with diabetic polyneuropathy, severe hypothyroidism, dyslipidemia, NSTEMI, malnutrition, substance use disorder and others below admitted w/ presents with syncopal episodes and concern for sepsis - GI asked to evaluate for diarrhea and weight loss - Celiac panel - Stool PCR - Fecal calprotectin - Fecal elastase - Pending stool studies and clinical status may consider diagnostic colonoscopy this admission Thank you for allowing us to participate in the care of this patient. Please call with any acute changes, questions or concerns. Please see addendum below with additional recommendation from my supervising physician. I spent a total of 60 minutes on the date of service in review of patient's record, and previously obtained information in person and appropriate medical visit, discussion and education of plan, with patient and/or caregiver, placing orders for tests/ referral/procedures as medically necessary and documentation of pertinent clinical information in patient's medical records for their visit today. Supervising Physician Co-Signing Physician Notes I saw and examined this patient with our nurse practitioner and agree with her assessment and plan. Patient with significant weight loss over the last several years associated with chronic GI symptoms including loose and frequent bowel movements. Needs a GI evaluation to exclude pathology that could explain this such as inflammatory bowel disease or celiac disease. In addition we will consider persistent hypothyroidism checking TSH level as well as T4 and T3. Would also check a.m. cortisol level as Irvin's disease can present with orthostatic hypotension as well as GI symptoms. Await preliminary GI serologies to test for celiac disease, stool studies as well as stool elastase to exclude pancreatic insufficiency. If unrevealing we will proceed with endoscopic evaluation once his other medical issues have been stabilized. History of Present Illness Reason for Consultation: diarrhea Requesting Physician: Jordy Chowdhury DO Attending Physician: Jordy Chowdhury DO History of Present Illness 39 year old male with history of bipolar disorder, major depressive disorder episode, methamphetamine abuse, severe protein calorie malnutrition, type 1 diabetes with diabetic polyneuropathy, severe hypothyroidism, dyslipidemia, NSTEMI, malnutrition, substance use disorder and others below admitted w/ presents with syncopal episodes and concern for sepsis. He was recently admitted at [facility] for osteomyelitis and status post I&D x 2 for right upper extremity abscess. There was report of negative infectious stool workup and plan for an OP colonoscopy. Suggests ongoing symptoms of loose stools, urgency intermittent episodes of incontinence. Reports nocturnal Bms as well. No black or bloody stools. No nausea/vomiting, GERD or dysphagia. Reports significant weight loss. Denies family history of IBD Denies family history of GI malignancy Allergies Allergy/AdvReac Type Severity Reaction Status Date / Time No Known Allergies Allergy Verified 07/14/24 18:31 Home Medications Medication Instructions Recorded Confirmed Type Methadone 116 mg PO DAILY 04/19/23 07/14/24 History gabapentin 300 mg capsule 300 mg PO TID 06/08/23 07/14/24 History insulin glargine 100 unit/mL (3 4 unit (0.04 mL) subcut PM #3 mL 06/14/23 07/14/24 Rx mL) subcutaneous pen (Lantus Solostar U-100 Insulin) insulin aspart U-100 100 unit/mL 2 - 3 unit subcut ACHS 07/14/24 07/14/24 History subcutaneous solution (Novolog U-100 Insulin aspart) levothyroxine 200 mcg tablet 200 mcg PO QAM 07/14/24 07/14/24 History quetiapine 300 mg tablet 150 mg PO HS 07/14/24 07/14/24 History Patient History Medical History Asymptomatic bacteriuria Pneumocephalus, traumatic Neuropathy Compulsive skin picking ADHD Mixed dyslipidemia History of pneumonia Multifocal necrotizing pneumonia with ARDS in Dec 2021, required intubation Osteomyelitis of right hand Acute urinary retention Surgical History No pertinent past surgical history Family History Other Alcohol dependence with other alcohol-induced disorder Mood disorder Social History Smoking Status: Current every day smoker Tobacco Type: Cigarettes packs per day: 0.5; Cigarettes Per Day: 1 pack per day; Second Hand Exposure: Yes; Hx Alcohol Use: No (Pt denies) Hx Substance Use: No (Pt denies) Preferred Language: Sudanese Communication Ability: Effective Stave Planer Tender Required: No Beliefs That Will Affect Care: None Current Living Situation: Parent Current Living Situation Comment: MOTHER Other Information That Helps Us Care for You: No Feels Safe at Home: Yes Safety Concerns: Feels Safe At This Time Assistive Devices: None Review of Systems Review of Systems: All other findings negative except as noted in HPI. Physical Exam Constitutional: WD/WN, vitals as above Respiratory: normal respiratory effort Cardiovascular: Rate/Rhythm: regular rate and regular rhythm Gastrointestinal (Abdomen): normal bowel sounds, soft, nontender, no hepatosplenomegaly Skin: no rashes, warm and dry Results & Data Vital Signs (Past 12 Hours) Vital Signs Temp Pulse Resp BP Pulse Ox O2 Del Method 07/17/24 07:08 97.7 F 71 16 103/68 98 Room Air 07/16/24 21:16 99.7 F H 94 H 20 144/84 H 98 Room Air Laboratory Results 07/17/24 07/17/24 07/16/24 Range/Units 07:52 07:35 20:50 WBC (4.8-10.8) K/ul RBC (4.70-6.10) M/uL Hgb (14.0-18.0) g/dl Hct (42.0-52.0) % MCV (80.0-100.0) fL MCH (25.0-34.0) pg MCHC (32.0-36.0) g/dL RDW Std Deviation (36.4-46.3) fL RDW Coeff of Nick (11.5-14.5) % Plt Count (130-400) K/uL MPV (9.4-12.4) fL ESR (0-15) mm/hr Sodium 138 (136-145) mmol/L Potassium 4.0 (3.5-5.1) mmol/L Chloride 109 H (98-107) mmol/L Carbon Dioxide 26 (21-32) mmol/L Anion Gap 3 (3-11) BUN 27 H (6-23) mg/dl Creatinine 1.85 H (0.6-1.4) mg/dl Est Cr Clr Drug Dosing 34.0 ml/min eGFR 47.52 BUN/Creatinine Ratio 14.6 (10-20) Glucose 139 H (70-99(Fasting)) mg/dl POC Glucose 148 H 110 H (70-99) mg/dl Calcium 8.7 (8.6-10.3) mg/dl 07/16/24 07/16/24 07/16/24 Range/Units 16:33 11:27 09:22 WBC (4.8-10.8) K/ul RBC (4.70-6.10) M/uL Hgb (14.0-18.0) g/dl Hct (42.0-52.0) % MCV (80.0-100.0) fL MCH (25.0-34.0) pg MCHC (32.0-36.0) g/dL RDW Std Deviation (36.4-46.3) fL RDW Coeff of Nick (11.5-14.5) % Plt Count (130-400) K/uL MPV (9.4-12.4) fL ESR (0-15) mm/hr Sodium (136-145) mmol/L Potassium (3.5-5.1) mmol/L Chloride (98-107) mmol/L Carbon Dioxide (21-32) mmol/L Anion Gap (3-11) BUN (6-23) mg/dl Creatinine (0.6-1.4) mg/dl Est Cr Clr Drug Dosing ml/min eGFR BUN/Creatinine Ratio (10-20) Glucose (70-99(Fasting)) mg/dl POC Glucose 167 H 111 H 95 (70-99) mg/dl Calcium (8.6-10.3) mg/dl 07/16/24 Range/Units 09:01 WBC 4.44 L (4.8-10.8) K/ul RBC 3.51 L (4.70-6.10) M/uL Hgb 10.5 L (14.0-18.0) g/dl Hct 31.4 L (42.0-52.0) % MCV 89.5 (80.0-100.0) fL MCH 29.9 (25.0-34.0) pg MCHC 33.4 (32.0-36.0) g/dL RDW Std Deviation 50.3 H (36.4-46.3) fL RDW Coeff of Nick 15.3 H (11.5-14.5) % Plt Count 278 (130-400) K/uL MPV 9.8 (9.4-12.4) fL ESR 43 H (0-15) mm/hr Sodium 140 (136-145) mmol/L Potassium 4.2 (3.5-5.1) mmol/L Chloride 110 H (98-107) mmol/L Carbon Dioxide 24 (21-32) mmol/L Anion Gap 6 (3-11) BUN 29 H (6-23) mg/dl Creatinine 1.93 H (0.6-1.4) mg/dl Est Cr Clr Drug Dosing 32.6 ml/min eGFR 45.16 BUN/Creatinine Ratio 15.0 (10-20) Glucose 95 (70-99(Fasting)) mg/dl POC Glucose (70-99) mg/dl Calcium 8.8 (8.6-10.3) mg/dl PG Care Time/CCT Total # of Minutes Spent Total Time Spent with Patient: Total time spent is greater than 50% in coordination of care (as documented) at patient's floor/unit and/or counseling patient: Coding Level of Care Code 75849 IN/OBS CONSULT LVL 4,60M Diagnoses Diarrhea R19.7
--- NOTE | 2024-07-17 09:22 | Electrocardiogram Report ---
Test Reason : Blood Pressure : */* mmHG Vent. Rate : 71 BPM Atrial Rate : 71 BPM P-R Int : 120 ms QRS Dur : 92 ms QT Int : 416 ms P-R-T Axes : 82 90 80 degrees QTcB Int : 452 ms Normal sinus rhythm Rightward axis Borderline ECG When compared with ECG of 14-Jul-2024 16:53, (unconfirmed) No significant change was found Confirmed by Cuauhtemoc Welch ([id number]) on 07/17/2024 9:22:29 AM Referred By: REFERRED SELF Confirmed By: Cuauhtemoc Welch
--- NOTE | 2024-07-17 09:53 | Orthopedic Progress Note ---
Date of Service July 17, 2024 Assessment & Plan (1) Chronic osteomyelitis involving hand: Plan: The patient was educated regarding today's findings. His wounds were examined and the dressings were left in place. These can be changed as needed for soiling. He will remain off the antibiotics for several weeks and biopsy of the metacarpal and phalangeal segments can be obtained. He remains afebrile. We can continue to follow while he is admitted. No acute intervention is needed at this time. Admission and Anticipated Discharge Date Admission Date: July 14, 2024 Subjective This 39-year-old male is seen today in his room. He has no current orthopedic complaints. There is no change in his right hand. He notes tingling in his fingers but no true numbness. He denies any problems with his left hand. No new complaints. Physical Exam Physical Exam: General: Frail, thin, young white male, in no acute distress. Laying in bed watching TV. Alert and oriented. Skin: Warm and dry with fair turgor. No rashes. He has some minor skin abrasions present on the right little finger and in the third webspace of the right hand. No edema in the fingers. The finger wounds are clean and show no signs of infection. He also has some minor skin excoriations on his face. These also appear clean with no signs of infection. Musculoskeletal: He has full range of motion of the left hand digits. He is able to make a fist. Thumb circumduction and opposition are intact. Right hand shows contractures of the long, ring, and little fingers. There is a scar present on the volar surface of his right wrist. There is intact flexion and extension to the index finger and thumb. Circumduction and opposition of the thumb is intact. Neurologic: Gross sensation is intact across each of the digits of both hands. He describes some tingling in the digits of the right hand with decreased subjective sensation compared to the left. Peripheral pulses are 2+ on the left. Capillary refill is equal to the digits on the right. Results & Data Vital Signs (Past 12 Hours) Vital Signs Temp Pulse Resp BP Pulse Ox O2 Del Method 07/17/24 07:08 36.5 C 71 16 103/68 98 Room Air Laboratory Results PRP obtained this morning shows sodium 138, potassium 4.0, chloride 109. BUN of 27 with creatinine 1.85, both of which are improving since admission. Glucose this morning is 139.
--- NOTE | 2024-07-17 12:18 | Hospitalist Progress Note ---
Date of Service July 17, 2024 Assessment & Plan (1) Orthostatic syncope: (2) ANTOLIN (acute kidney injury): Plan: Suspect ATN from hypotension (3) Severe protein-calorie malnutrition: (4) Type 1 diabetes mellitus with hypoglycemia: (5) Chronic osteomyelitis involving hand: Plan: Versus chronic inflammatory arthritis (6) Methamphetamine use: (7) Hypothyroidism: (8) Methadone use: (9) Irritable bowel syndrome with diarrhea: Plan Patient continues with significant orthostasis. Increase midodrine Reviewed GI consultation. Stool studies sent and pending Patient seems to have responded well to the Pepcid, Imodium, FiberCon. Continue to observe response Patient has a longstanding history of diarrhea that is nonbloody, history seems most consistent with irritable bowel syndrome with diarrhea prominent symptoms. Kidney function continues to improve continue to monitor intermittently, electrolytes stable at this time Continue daily Synthroid, explained to patient we will recheck TSH in approximate 4 to 6 weeks Admission and Anticipated Discharge Date Admission Date: July 14, 2024 Subjective Patient states that his stools seem to have improved. He is eating a full breakfast. Abdominal pain has improved with the Pepcid. He denies lightheadedness or dizziness upon standing/going to the bathroom, however orthostatic vitals still significantly positive Physical Exam Physical Exam: Constitutional: Alert, frail, malnourished HEENT: Mucous membranes moist. Lungs: Clear to auscultation, decreased, no wheezes rales or rhonchi CV: S1-S2, regular Abdomen: Soft, nontender, nondistended Extremities: No significant edema, right hand wrapped with gauze Neuro: No focal deficits Psych: Cooperative, normal mood Results & Data Results & Data Vital Signs (Past 12 Hours) Vital Signs Temp Pulse Resp BP Pulse Ox O2 Del Method 07/17/24 07:08 36.5 C 71 16 103/68 98 Room Air Diagnostic Findings Reviewed imaging, laboratory and diagnostic studies. Pertinent findings as below. Significantly positive orthostatic blood pressures Creatinine 1.85, improving (7) Hypothyroidism Hypothyroidism type: unspecified Qualified Code(s): E03.9 - Hypothyroidism, unspecified
[2024-07-17] MEDS: MIDODRINE HCL 2.5 MG TAB PO SCH (16:56)
[2024-07-17] MEDS: LANTUS PER UNIT CHARGE SC ONE (17:25)
[2024-07-17 23:32] LABS: Cdiff Toxin B Gene (2yr or >) Positive Cdiff Gene (Neg)
[2024-07-18 00:03] LABS: Adenovirus F 40/41 PCR Not Detected (NotDetected); Astrovirus PCR Not Detected (NotDetected); Campylobacter PCR Not Detected (NotDetected); Cryptosporidium PCR Not Detected (NotDetected); Cyclospora cayetanensis PCR Not Detected (NotDetected); Entamoeba histolytica PCR Not Detected (NotDetected); Enteroaggregative E.coli(EAEC) Not Detected (NotDetected); Enteropathogenic E.coli (EPEC) Not Detected (NotDetected); Enterotoxigenic E.coli (ETEC) Not Detected (NotDetected); Giardia lamblia PCR Not Detected (NotDetected); Norovirus GI/GII PCR Not Detected (NotDetected); Plesiomonas shigelloides PCR Not Detected (NotDetected); Rotavirus A PCR Not Detected (NotDetected); Salmonella PCR Not Detected (NotDetected); Sapovirus PCR Not Detected (NotDetected); Shiga-like Toxin E.coli (STEC) Not Detected (NotDetected); Shigella/Enteroinvasive E.coli Not Detected (NotDetected); Vibrio cholerae PCR Not Detected (NotDetected); Vibrio species PCR Not Detected (NotDetected); Yersinia enterocolitica PCR Not Detected (NotDetected)
[2024-07-18 00:40] LABS: Cdiff Antigen Positive; Cdiff Toxin A+B Positive Cdiff Toxin (Negative)
--- NOTE | 2024-07-18 00:44 | Communication Note ---
Date of Service: July 18, 2024 Made aware of stool C. difficile toxin positive result AP Stool C. difficile diarrhea Oral vancomycin course
[2024-07-18] MEDS: VANCOMYCIN HCL 125 MG/2.5ML SOLN PO SCH (01:24)
[2024-07-18] MEDS: CHERRY SYRUP 5 ML UDP PO SCH (01:25)
--- NOTE | 2024-07-18 09:25 | Orthopedic Progress Note ---
Date of Service July 18, 2024 Assessment & Plan (1) Chronic osteomyelitis involving hand: Plan: His wounds were examined and the dressings were left in place. These can be changed as needed for soiling. He will remain off the antibiotics for several weeks and biopsy of the metacarpal and phalangeal segments can be obtained. He remains afebrile. We can continue to follow while he is admitted. No acute intervention is needed at this time, however may require amputation of his right third digit. Patient may need to see rheumatology as an outpatient. Admission and Anticipated Discharge Date Admission Date: July 14, 2024 Subjective This 39-year-old male seen today for follow-up evaluation of bilateral hand issues. Patient states that his dressings were changed yesterday. He states that the flexion contracture affecting his right hand is chronic. States that he really only has an issue with his index finger on the left hand. Currently has a Band-Aid over the PIP of the right third finger. He states that he has lost the tip of his right fifth finger from osteomyelitis that was untreated. Patient is diabetic, methamphetamine abuser and very frail appearing. Currently denies chest pain, shortness of breath, fever, chills, sweats, nausea, vomiting or difficulties voiding. He states that he did have some stool issues earlier which have resolved. He states that he has been eating as well. Review of Systems Review of Systems: His health history is noted and reviewed. He uses methamphetamines and smokes daily.He also has opioid use disorder hypothyroidism and diabetes.There is no history of gout. Physical Exam Physical Exam: Bilateral hands: Warm and dry with fair turgor. No rashes. He has some minor skin abrasions present on the right little finger and in the third webspace of the right hand. No edema in the fingers. The finger wounds are clean and show no signs of infection. Abrasion to the dorsal surface of the PIP was covered with a Band-Aid. He has full range of motion of the left hand digits. He is able to make a fist. Right hand; shows Flexion contractures of the long, ring, and little fingers. There is intact flexion and extension to the index finger and thumb. Patient has erosive changes to the distal phalanx of the fifth finger. Patient is able to detect light sensation to touch over the pads of all digits. Peripheral pulses are 2+. Patient is neurovascularly intact in both upper extremities. Results & Data Diagnostic Findings Laboratory Results WBC 4.44 K/ul (4.8-10.8) L 07/16/24 09:01 RBC 3.51 M/uL (4.70-6.10) L 07/16/24 09:01 Hgb 10.5 g/dl (14.0-18.0) L 07/16/24 09:01 POC Hgb 13.6 g/dl (14.0-18.0) L 07/14/24 17:12 Hct 31.4 % (42.0-52.0) L 07/16/24 09:01 POC Hct 40 % (42-52) L 07/14/24 17:12 MCV 89.5 fL (80.0-100.0) 07/16/24 09:01 MCH 29.9 pg (25.0-34.0) 07/16/24 09:01 MCHC 33.4 g/dL (32.0-36.0) 07/16/24 09:01 RDW Std Deviation 50.3 fL (36.4-46.3) H 07/16/24 09:01 RDW Coeff of Nick 15.3 % (11.5-14.5) H 07/16/24 09:01 Plt Count 278 K/uL (130-400) 07/16/24 09:01 MPV 9.8 fL (9.4-12.4) 07/16/24 09:01 Immature Gran % (Auto) 0.3 % 07/15/24 05:20 Neut % (Auto) 57.0 % 07/15/24 05:20 Lymph % (Auto) 34.7 % 07/15/24 05:20 [place] % (Auto) 6.3 % 07/15/24 05:20 Eos % (Auto) 1.1 % 07/15/24 05:20 Baso % (Auto) 0.6 % 07/15/24 05:20 Neut # (Auto) 2.07 K/uL (1.40-6.50) 07/15/24 05:20 Lymph # (Auto) 1.26 K/uL (1.20-3.40) 07/15/24 05:20 [place] # (Auto) 0.23 K/uL (0.11-0.59) 07/15/24 05:20 Eos # (Auto) 0.04 K/uL (0.00-0.50) 07/15/24 05:20 Baso # (Auto) 0.02 K/uL (0.00-0.20) 07/15/24 05:20 Immature Gran # (Auto) 0.01 K/uL (0.01-0.20) 07/15/24 05:20 ESR 43 mm/hr (0-15) H 07/16/24 09:01 PT 10.2 Seconds (9.0-12.0) 07/14/24 17:16 INR 0.9 (0.9-1.1) 07/14/24 17:16 APTT 24 Seconds (21-31) 07/14/24 17:16 PTT Ratio 0.9 07/14/24 17:16 VBG pH 7.32 (7.36-7.41) L 07/15/24 05:51 VBG pCO2 48 mmHg (38-50) 07/15/24 05:51 VBG pO2 70 mmHg 07/15/24 05:51 VBG HCO3 25 mmol/L 07/15/24 05:51 VBG O2 Saturation 96.2 % 07/15/24 05:51 VBG Base Excess -1.8 mEq/L 07/15/24 05:51 POC Sodium 132 mmol/L (135-144) L 07/14/24 17:12 Sodium 138 mmol/L (136-145) 07/17/24 07:35 POC Potassium 4.5 mmol/L (3.3-5.0) 07/14/24 17:12 Potassium 4.0 mmol/L (3.5-5.1) 07/17/24 07:35 POC Chloride 98 mmol/L (101-112) L 07/14/24 17:12 Chloride 109 mmol/L (98-107) H 07/17/24 07:35 Carbon Dioxide 26 mmol/L (21-32) 07/17/24 07:35 POC Total CO2 23 mmol/L (24-31) L 07/14/24 17:12 Anion Gap 3 (3-11) 07/17/24 07:35 POC Anion Gap 17.0 mmol/L (16-25) 07/14/24 17:12 POC BUN 51 mg/dl (7-18) H 07/14/24 17:12 BUN 27 mg/dl (6-23) H 07/17/24 07:35 Creatinine 1.85 mg/dl (0.6-1.4) H 07/17/24 07:35 POC Creatinine 3.1 mg/dl (0.6-1.3) H 07/14/24 17:12 Est Cr Clr Drug Dosing 34.0 ml/min 07/17/24 07:35 eGFR 47.52 07/17/24 07:35 BUN/Creatinine Ratio 14.6 (10-20) 07/17/24 07:35 Glucose 139 mg/dl (70-99(Fasting)) H 07/17/24 07:35 POC Glucose 299 mg/dl (70-99) H 07/18/24 07:42 POC Glucose (other) 388 mg/dl (70-99) H* 07/14/24 17:12 Estimat Average Glucose 226 mg/dl 07/15/24 05:20 Hemoglobin A1c 9.5 % (4.5-5.6) H 07/15/24 05:20 Lactate 0.7 mmol/L (0.4-2.0) 07/14/24 19:35 Calcium 8.7 mg/dl (8.6-10.3) 07/17/24 07:35 POC Ioniz Calcium [place] 1.18 mmol/l (1.12-1.32) 07/14/24 17:12 Magnesium 1.7 mg/dl (1.7-2.4) 07/15/24 05:20 Iron Cancelled 07/15/24 05:54 TIBC Cancelled 07/15/24 05:54 Transferrin Cancelled 07/15/24 05:54 Transferrin % Sat Cancelled 07/15/24 05:54 Total Bilirubin 0.3 mg/dl (0.2-1.0) 07/14/24 17:22 Direct Bilirubin 0.0 mg/dl (0-0.2) 07/14/24 17:22 AST 25 U/L (13-39) 07/14/24 17:22 ALT 30 U/L (7-52) 07/14/24 17:22 Alkaline Phosphatase 146 U/L (34-104) H 07/14/24 17:22 Troponin I High Sens 4.2 pg/ml (0-20) 07/15/24 10:43 C-Reactive Protein 1.17 mg/dl (0-0.5) H 07/14/24 17:22 Total Protein 8.3 gm/dl (6.0-8.3) 07/14/24 17:22 Albumin 4.0 gm/dl (3.4-5.0) 07/14/24 17:22 Vitamin B12 688 pg/ml (180-914) 07/15/24 05:39 Folate 21.35 ng/ml (>5.38) 07/15/24 05:39 Procalcitonin 0.15 ng/ml (0-0.5) 07/14/24 17:22 TSH 24.448 uIu/ml (0.300-4.500) H 07/14/24 17:22 Free T4 0.84 ng/dl (0.61-1.60) 07/14/24 17:22 Urine Color Yellow 07/15/24 13:00 Urine Appearance Clear (Clear) 07/15/24 13:00 Urine pH 5.0 (4.5-7.5) 07/15/24 13:00 Ur Specific [place] 1.013 (1.000-1.030) 07/15/24 13:00 Urine Protein 1+ (Negative) H 07/15/24 13:00 Urine Glucose (UA) 1+ (Negative) H 07/15/24 13:00 Urine Ketones Negative (Negative) 07/15/24 13:00 Urine Blood Negative (Negative) 07/15/24 13:00 Urine Nitrite Negative (Negative) 07/15/24 13:00 Urine Bilirubin Negative (Negative) 07/15/24 13:00 Urine Urobilinogen Negative (Negative) 07/15/24 13:00 Ur Leukocyte Esterase Negative (Negative) 07/15/24 13:00 Urine WBC (Auto) 0-5 /hpf (0-5) 07/15/24 13:00 Urine RBC (Auto) 0-2 /hpf (0-2) 07/15/24 13:00 U Hyaline Cast (Auto) 0-2 /lpf (0-2) 07/15/24 13:00 U Epithel Cells (Auto) 0-2 /hpf (0-2) 07/15/24 13:00 Urine Bacteria (Auto) None Seen (None Seen) 07/15/24 13:00 Stl C. cayetanensis PCR Not Detected (NotDetected) 07/17/24 22:30 Stool Rotavirus A PCR Not Detected (NotDetected) 07/17/24 22:30 Stl Adenov F 40/41 PCR Not Detected (NotDetected) 07/17/24 22:30 Stool Astrovirus (PCR) Not Detected (NotDetected) 07/17/24 22:30 Stool Campylobacter PCR Not Detected (NotDetected) 07/17/24 22:30 Stl C. diff Tox B Gene Positive Cdiff Gene (Neg) A 07/17/24 22:30 Stl C.difficile Tox A&B Positive Cdiff Toxin (Negative) A* 07/17/24 22:30 Stool Cryptosporidium PCR Not Detected (NotDetected) 07/17/24 22:30 Stl E.coli Shiga Tox PCR Not Detected (NotDetected) 07/17/24 22:30 Stl Enterotoxigenic E PCR Not Detected (NotDetected) 07/17/24 22:30 Stool EPEC (PCR) Not Detected (NotDetected) 07/17/24 22:30 Stool EAEC (PCR) Not Detected (NotDetected) 07/17/24 22:30 Stl E. histolytica PCR Not Detected (NotDetected) 07/17/24 22:30 Stool Giardia Lamblia PCR Not Detected (NotDetected) 07/17/24 22:30 Stool Salmonella PCR Not Detected (NotDetected) 07/17/24 22:30 Stool Sapovirus (PCR) Not Detected (NotDetected) 07/17/24 22:30 Stl P. shigelloides PCR Not Detected (NotDetected) 07/17/24 22:30 Stl Shigella/EIEC PCR Not Detected (NotDetected) 07/17/24 22:30 St Y.enterocolitica PCR Not Detected (NotDetected) 07/17/24 22:30 Stool Vibrio (PCR) Not Detected (NotDetected) 07/17/24 22:30 Stl Vibrio cholerae PCR Not Detected (NotDetected) 07/17/24 22:30 Stl Norovirus GI/GII PCR Not Detected (NotDetected) 07/17/24 22:30 Random Vancomycin 15.0 mcg/ml (10-20) 07/15/24 08:32 SARS-CoV-2 (PCR) NEGATIVE (Negative) 07/14/24 17:22 Influenza Type A (PCR) Negative (Neg) 07/14/24 17:22 Influenza Type B (PCR) Negative (Neg) 07/14/24 17:22 RSV (RT-PCR) Negative (Neg) 07/14/24 17:22 Impressions Chest X-Ray 07/14/24 16:47 EXAM: XR chest 1V portable CLINICAL HISTORY: Sepsis TECHNIQUE: X-ray images of the chest were obtained in posteroanterior (PA) projection. COMPARISON: compared to the previous study dated 06/08/2023 FINDINGS: Pulmonary Parenchyma: Hyperinflated chest A decrease in the previously noted multifocal air space opacities, mainly at the right lower lobe Bilateral mid-lung zone atelactatic band Still noted blunting of the costophrenic angles reflecting mild pleural effusion /pleural thickening. Heart and Mediastinum: Heart size and shape are normal. No mediastinal widening or masses. No hilar or mediastinal lymphadenopathy. Multiple LEDs implicating both chest vazquez Soft Tissues: Soft tissues overlying the chest wall are unremarkable. IMPRESSION: 1. Hyperinflated chest, stable 2. A decrease in the previously noted multifocal air space opacities, mainly at the right lower lobe, course regression 3. Bilateral atelactatic bands, stable 4. Still noted blunting of the costophrenic angles reflecting mild pleural effusion /pleural thickening, stable Electronically signed by Adalberto Godoy 07-14-2024 8:[address] 07/14/24 16:49 EXAM: CT cervical spine wo con CLINICAL HISTORY: Falls. TECHNIQUE: CT scan of the cervical spine was performed without the administration of intravenous contrast. Contiguous axial images were obtained from the skull base to the upper thoracic spine. Coronal and sagittal reformatted images were also reviewed. One of the following dose reduction techniques was utilized for this exam. Automated exposure control, adjustment of the mA and/or kV according to patient size, and use of iterative reconstruction. COMPARISON: No previous studies are available for comparison. FINDINGS: Vertebrae: Straightened cervical curve. The vertebral bodies are normal in height. No evidence of acute fracture or dislocation. The cortical and trabecular bone patterns are normal. No signs of lytic or sclerotic lesions. Normal configuration of the posterior elements. Intervertebral Discs: The intervertebral disc spaces are preserved. No evidence of significant disc bulging or herniation. No calcifications or ossifications noted within the discs. Facet Joints: The facet joints are normal without evidence of dislocation, subluxation, or significant degenerative changes. Neural Foramina: The neural foramina are patent bilaterally at all levels. No evidence of foraminal narrowing or nerve root compression. Prevertebral Soft Tissues: The prevertebral soft tissues are normal in thickness without evidence of mass or abnormal fluid collection. Additional Findings: Few gas foci noted within the anterior epidural space as well as around both vertebral arteries in the vertebral foramina. IMPRESSION: 1. Few gas foci noted within the anterior epidural space as well as around both vertebral arteries in the vertebral foramina, could be non specific however, regarding patient history of trauma possibility of Pneumorrhachis(air within the spinal canal) can be excluded. Correlate clinically. 2. No evidence of acute fracture, dislocation, or significant degenerative changes. Electronically signed by Adalberto Godoy 07-14-2024 7:[address] 07/14/24 16:49 EXAM: CT head/brain wo con CLINICAL HISTORY: Falls. TECHNIQUE: Axial non-contrast CT scan of the brain was performed from the skull base to the high parietal region. One of the following dose reduction techniques were utilized for this exam: Automated exposure control, adjustment of the mA and/or kV according to patient size, use of iterative reconstruction. COMPARISON: 04/19/2023 FINDINGS: Brain Parenchyma: Normal attenuation of the cerebral hemispheres, cerebellum, and brainstem. No evidence of acute infarct, hemorrhage, or mass effect. No abnormal areas of hypo- or hyperattenuation. Ventricular System: Ventricles are normal in size and configuration. No evidence of hydrocephalus or ventricular enlargement. Persistent cavum septum pellucidum (normal variant) Subarachnoid Spaces: Normal sulci and cisterns. No evidence of subarachnoid hemorrhage or extra-axial fluid collections. Cerebellum and Brainstem: Normal size and signal. No masses, lesions, or areas of abnormal density. Orbits: Normal appearance of the globes, optic nerves, and extraocular muscles. No evidence of orbital masses or abnormal density. Sinuses: Clear paranasal sinuses. No evidence of sinusitis or mucosal thickening. Mastoid Air Cells: Clear mastoid air cells. No evidence of mastoiditis. Skull: Normal skull morphology. IMPRESSION: 1. Normal CT of the head without contrast. 2. No significant interval change. Electronically signed by Adalberto Godoy 07-14-2024 7:22 PM Hand MRI 07/15/24 11:30 MR hand RT wo/w con HISTORY: 39 years-old Male finger infection acute pain of the right third through fifth fingers with open wound and possible osteomyelitis. COMPARISON: Right hand radiographs 07/14/2024, 06/12/2023 TECHNIQUE: Multiplanar multisequence MRI of the right hand was obtained with and without IV contrast FINDINGS: Motion degraded exam. BONES: Chronic ununited/partially united fracture fracture of the mid diaphyseal fifth proximal phalanx with chronic remodeling/pseudoarticulation again noted. This demonstrates no acute erosive changes or significant marrow edema. Bony erosive changes involving the base of the third proximal phalanx and third metatarsal head and neck redemonstrated with capsular thickening there is at least moderate narrowing within the distributions with ill-defined slightly decreased T1 marrow signal. These findings are new compared to the 06/12/2023 radiographs. There is minimal multifocal osteoarthritis. Bony erosions with volar dislocation of the third PIP joint also represents a change from the 06/12/2023 radiographs. There is marrow edema with corticated margins. Findings compatible with chronic pulmonary injuries of the third and fourth PIP joints. There is diffuse subcutaneous and deep tissue edema. Moderate edema noted within the carpal tunnel. Tendinosis with chronic appearing high-grade partial- thickness interstitial tearing involves the third digit flexor tendons at the level of the proximal phalanx. No significant tenosynovitis or retraction. Trace joint effusion of the wrist. IMPRESSION: 1. Chronic fifth proximal phalangeal fracture with incomplete bony fusion and probable pseudoarticulation. 2. Erosive changes of the third metacarpal phalangeal and third PIP joints with third PIP joint dislocation. Correlate clinically to exclude erosive arthropathy versus osteomyelitis. 3. Tendinosis with chronic appearing partial thickness tearing of the third digit flexor tendons. 4. Nonspecific subcutaneous and deep tissue edema of the hand and wrist. No drainable fluid collections. ACT 112: Negative or not required by law. The above report was generated using voice recognition software. It may contain grammatical, syntax or spelling errors. Electronically signed by: Itz Geiger M.D. 07/15/2024 3:26 PM Hand X-Ray 07/16/24 10:14 XR hand LT min 3V routine CLINICAL HISTORY: for comparison COMPARISON: Right hand dated 07/14/2024 FINDINGS: 3 views of the left hand demonstrate a similar-appearing and destruction of the PIP joint of the fifth finger with a pseudoarthrosis and pulmonary displacement and slight overlapping of the proximal and of the middle phalanx in relationship to the distal end of the proximal phalanx. There is no periosteal reaction. There is no significant soft tissue swelling suggesting this is a chronic finding. No additional abnormalities are identified involving the left hand. IMPRESSION: PIP joint abnormality involving the fifth digit as described. The findings appear chronic. They are somewhat similar to the findings in the fifth digit in the right hand. ACT 112: Negative or not required by law. Electronically signed by: Herminia Irving M.D. 07/16/2024 11:23 AM
[2024-07-18] MEDS: PROMETHAZINE 6.25 MG/50.25 ML BAG IV PRN (09:40)
--- NOTE | 2024-07-18 10:07 | Gastroenterology Progress Note ---
Date of Service July 18, 2024 Assessment & Plan (1) Diarrhea: Plan: 39 year old male with history of bipolar disorder, major depressive disorder episode, methamphetamine abuse, severe protein calorie malnutrition, type 1 diabetes with diabetic polyneuropathy, severe hypothyroidism, dyslipidemia, NSTEMI, malnutrition, substance use disorder and others below admitted w/ presents with syncopal episodes and concern for sepsis - GI asked to evaluate for diarrhea and weight loss - Stool studies reveal C.diff infection. Please complete a 14 day course of Vancomycin 135 q6h. Avoid unnecessary ABX. Follow Celiac panel, Fecal calprotectin, Fecal elastase. Should follow up with a local GI after discharge. Thank you for allowing us to participate in the care of this patient. Please call with any acute changes, questions or concerns. Please see addendum below wi th additional recommendation from my supervising physician. I spent a total of 40 minutes on the date of service in review of patient's record, and previously obtained information in person and appropriate medical visit, discussion and education of plan, with patient and/or caregiver, placing orders for tests/referral/procedures as medically necessary and documentation of pertinent clinical information in patient's medical records for their visit today. Admission and Anticipated Discharge Date Admission Date: July 14, 2024 Supervising Physician Co-Signing Physician Notes I saw and examined this patient with our nurse practitioner and agree with her assessment and plan. Stool studies positive for C. difficile. This could be an explanation for a lot of his GI symptoms. Patient completed 14-day course of the vancomycin. Can follow-up with GI as an outpatient in 4 to 6 weeks to reassess any persistent symptoms that remain. Subjective Stool test reveals c.diff infection. Was started on Vancomycin. Endorses ongoing loose stools about 4-6 times daily. No report of black or bloody BMs. No abdominal pain today. Review of Systems Review of Systems: All other findings negative except as noted in HPI. Physical Exam Constitutional: WD/WN, vitals as above Respiratory: normal respiratory effort Cardiovascular: Rate/Rhythm: regular rate Gastrointestinal (Abdomen): Percussion/Palpation: abdomen soft Skin: no rashes, warm and dry Results & Data Results & Data Vital Signs (Past 12 Hours) Vital Signs Temp Pulse Resp BP Pulse Ox O2 Del Method 07/18/24 09:31 98.0 F 90 13 98/62 L 98 Room Air Laboratory Results 07/18/24 07/17/24 07/17/24 Range/Units 07:42 22:30 20:16 POC Glucose 299 H 380 H* (70-99) mg/dl Stl Pancreat Elastase 1 Pending Stl C. cayetanensis PCR Not Detected (NotDetected) Stool Rotavirus A PCR Not Detected (NotDetected) Stl Adenov F 40/41 PCR Not Detected (NotDetected) Stool Astrovirus (PCR) Not Detected (NotDetected) Stool Campylobacter PCR Not Detected (NotDetected) Stl C. diff Tox B Gene Positive Cdiff Gene A (Neg) Stl C.difficile Tox A&B Positive Cdiff Toxin A* (Negative) Stool Cryptosporidium PCR Not Detected (NotDetected) Stl E.coli Shiga Tox PCR Not Detected (NotDetected) Stl Enterotoxigenic E PCR Not Detected (NotDetected) Stool EPEC (PCR) Not Detected (NotDetected) Stool EAEC (PCR) Not Detected (NotDetected) Stl E. histolytica PCR Not Detected (NotDetected) Stool Giardia Lamblia PCR Not Detected (NotDetected) Stool Salmonella PCR Not Detected (NotDetected) Stool Sapovirus (PCR) Not Detected (NotDetected) Stl P. shigelloides PCR Not Detected (NotDetected) Stl Shigella/EIEC PCR Not Detected (NotDetected) St Y.enterocolitica PCR Not Detected (NotDetected) Stool Vibrio (PCR) Not Detected (NotDetected) Stl Vibrio cholerae PCR Not Detected (NotDetected) Stl Norovirus GI/GII PCR Not Detected (NotDetected) IgA Tiss Transglutamin IgA Celiac Disease Interp 07/17/24 07/17/24 07/17/24 Range/Units 20:14 16:28 11:18 POC Glucose 326 H* 241 H 99 (70-99) mg/dl Stl Pancreat Elastase 1 Stl C. cayetanensis PCR (NotDetected) Stool Rotavirus A PCR (NotDetected) Stl Adenov F 40/41 PCR (NotDetected) Stool Astrovirus (PCR) (NotDetected) Stool Campylobacter PCR (NotDetected) Stl C. diff Tox B Gene (Neg) Stl C.difficile Tox A&B (Negative) Stool Cryptosporidium PCR (NotDetected) Stl E.coli Shiga Tox PCR (NotDetected) Stl Enterotoxigenic E PCR (NotDetected) Stool EPEC (PCR) (NotDetected) Stool EAEC (PCR) (NotDetected) Stl E. histolytica PCR (NotDetected) Stool Giardia Lamblia PCR (NotDetected) Stool Salmonella PCR (NotDetected) Stool Sapovirus (PCR) (NotDetected) Stl P. shigelloides PCR (NotDetected) Stl Shigella/EIEC PCR (NotDetected) St Y.enterocolitica PCR (NotDetected) Stool Vibrio (PCR) (NotDetected) Stl Vibrio cholerae PCR (NotDetected) Stl Norovirus GI/GII PCR (NotDetected) IgA Tiss Transglutamin IgA Celiac Disease Interp 07/17/24 Range/Units 10:00 POC Glucose (70-99) mg/dl Stl Pancreat Elastase 1 Stl C. cayetanensis PCR (NotDetected) Stool Rotavirus A PCR (NotDetected) Stl Adenov F 40/41 PCR (NotDetected) Stool Astrovirus (PCR) (NotDetected) Stool Campylobacter PCR (NotDetected) Stl C. diff Tox B Gene (Neg) Stl C.difficile Tox A&B (Negative) Stool Cryptosporidium PCR (NotDetected) Stl E.coli Shiga Tox PCR (NotDetected) Stl Enterotoxigenic E PCR (NotDetected) Stool EPEC (PCR) (NotDetected) Stool EAEC (PCR) (NotDetected) Stl E. histolytica PCR (NotDetected) Stool Giardia Lamblia PCR (NotDetected) Stool Salmonella PCR (NotDetected) Stool Sapovirus (PCR) (NotDetected) Stl P. shigelloides PCR (NotDetected) Stl Shigella/EIEC PCR (NotDetected) St Y.enterocolitica PCR (NotDetected) Stool Vibrio (PCR) (NotDetected) Stl Vibrio cholerae PCR (NotDetected) Stl Norovirus GI/GII PCR (NotDetected) IgA Pending Tiss Transglutamin IgA Pending Celiac Disease Interp Pending PG Care Time/CCT Total # of Minutes Spent Total Time Spent with Patient: Total time spent is greater than 50% in coordination of care (as documented) at patient's floor/unit and/or counseling patient: Coding Level of Care Code 08108 SUB INP/OBS CARE 235MIN Diagnoses Diarrhea R19.7
--- NOTE | 2024-07-18 10:47 | Pharmacy Report ---
Pharmacy Glycemic Short Note 2 - Date of Service July 18, 2024 - Glycemic Short BSG Results (Last 24 hours): 07/17/24 07/17/24 07/17/24 11:18 16:28 20:14 POC Glucose 99 241 H 326 H* 07/17/24 07/18/24 20:16 07:42 POC Glucose 380 H* 299 H OUTPATIENT ANTIDIABETIC REGIMEN: * Lantus 4 units SC HS * Novolog 2-3 units SC ACHS * HbA1c: 9.5% (07/15/24) ASSESSMENT: 07/18/24: * BSGs nabila significantly last evening (99 -> 241 -> 353). Pt's diet intake has increased, but still surprised at the degree of BSG elevation. * Lantus dose will be increased to home dose this evening. * Novolog parameters adjusted to provide additional carb coverage. * Pharmacy will continue to follow and adjust regimen as indicated. 07/16/24: * Blood sugars labile yesterday, ranging 78-204 mg/dL * Received 3 units of basal and 2 units of bolus (5 units total) * Fasting blood sugar of 69 mg/dL this morning -> will decrease basal today * No immediate plans for surgical intervention, antibiotics discontinued 07/15/24: * is a 39 year old male who presented to ED on 07/14/24 for evaluation of syncopal episodes * Recently discharged from [facility] (~6 week hospitalization for treatment of osteomyelitis of right hand w/ IV cefazolin) * Pharmacy consulted for glycemic management for type 1 diabetes * Hyperglycemic on presentation, but trended down to 78 mg/dL this morning * Originally NPO, but now ordered a diet with breakfast * Last dose of basal insulin was 4 units on evening of 07/13/24 (as reported by patient) PLAN FOR INPATIENT GLYCEMIC CONTROL: * Basal insulin - increase * Lantus 4 units SC qPM * Bolus insulin * NovoLog per scale ACHS or Q6hrs while NPO * Goal Range: Low 100 mg/dL - High 160 mg/dL * Correction Factor: 50 mg/dL/unit * Nutritional / Prandial insulin per carb ratio of 1 unit per 25 grams CHO consumed
[2024-07-18 14:27] VITALS: O2SAT 100
[2024-07-18] MEDS: SODIUM CHLORIDE 0.9% 1,000 ML IV SCH (15:19)
--- NOTE | 2024-07-18 15:19 | Hospitalist Progress Note ---
Date of Service July 18, 2024 Assessment & Plan (1) Orthostatic syncope: (2) ANTOLIN (acute kidney injury): Plan: Suspect ATN from hypotension (3) Clostridium difficile diarrhea: (4) Severe protein-calorie malnutrition: (5) Type 1 diabetes mellitus with hypoglycemia: (6) Chronic osteomyelitis involving hand: Plan: Versus chronic inflammatory arthritis (7) Methamphetamine use: (8) Hypothyroidism: (9) Methadone use: (10) Irritable bowel syndrome with diarrhea: Plan Patient continues with significant orthostasis despite increasing midodrine. Attempt again more aggressive fluid resuscitation, 2 L fluid bolus, increase midodrine to 10 mg 3 times daily Patient has a history of chronic diarrhea, now testing positive for C. difficile, had recently tested negative. Oral vancomycin started, completed 14- day course Outpatient GI follow-up after is completed treatment for vancomycin Extensive phone conversation with Dr. Brown, rheumatology, he reviewed patient's films both in [employer] and [employer] system. Also reviewed the films with musculoskeletal radiologist. With the acute changes in the imaging extremely low suspicion for any type of inflammatory arthritis. Imaging finding much more consistent with infectious process/chronic osteomyelitis. Would not recommend treating for any type of inflammatory arthritis. Would recommend patient seek consultation with hand surgeon after his other medical issues have stabilized. Reviewed new diagnosis of C. difficile with patient. Also reviewed recommendations for hand surgeon consultation outpatient. Patient expressed understanding it would be and would consider amputation if that would overall improve his health. Continue to monitor orthostatic vital signs Check basic labs in a.m. Patient has had chronic diarrhea for months to potentially even years. Did have a recent negative C. difficile test. Suspect patient does have some sort of underlying chronic diarrheal condition that is now exacerbated with the C. difficile colitis.. However with this diagnosis will discontinue Imodium and FiberCon. Continue treatment with oral vancomycin. Admission and Anticipated Discharge Date Admission Date: July 14, 2024 Subjective Patient severely orthostatic this morning with near syncopal symptoms. Diarrhea unchanged. Did test positive for C. difficile overnight. Continuing to eat well. Physical Exam Physical Exam: Constitutional: Alert, frail cachectic HEENT: Mucous membranes moist. Lungs: Clear to auscultation, decreased, no wheezes rales or rhonchi CV: S1-S2, regular Abdomen: Soft, nontender, nondistended Extremities: No significant edema, patient has right hand wrapped, chronic hand deformities Neuro: No focal deficits Psych: Cooperative, normal mood Results & Data Results & Data Vital Signs (Past 12 Hours) Vital Signs Temp Pulse Pulse Resp BP Pulse Ox O2 Del Method 07/18/24 14:25 36.6 C 81 16 107/77 100 Room Air 07/18/24 12:11 36.7 C 84 15 07/18/24 09:31 36.7 C 90 13 98/62 L 98 Room Air Diagnostic Findings Reviewed imaging, laboratory and diagnostic studies. Pertinent findings as below. Stool positive for C. difficile toxin A Glucose 286 (8) Hypothyroidism Hypothyroidism type: unspecified Qualified Code(s): E03.9 - Hypothyroidism, unspecified
[2024-07-18] MEDS: MIDODRINE HCL 10 MG TAB PO SCH (16:27)
[2024-07-18] MEDS: LANTUS PER UNIT CHARGE SC SCH (20:57)
[2024-07-18] MEDS ORDERED: LANTUS PER UNIT CHARGE SC SCH (21:00)
[2024-07-19 08:06] VITALS: BP 115/83; PULSE 92; RESP 18; TEMP 98.2
[2024-07-19 08:26] LABS: Hematocrit (blood only) 31.6 % (42.0-52.0); Hemoglobin 10.7 g/dl (14.0-18.0); Mean Corpuscular Hemoglobin 30.1 pg (25.0-34.0); Mean Corpuscular Hgb Conc 33.9 g/dL (32.0-36.0); Mean Corpuscular Volume 88.8 fL (80.0-100.0); Mean Platelet Volume 9.6 fL (9.4-12.4); Platelet Count 340 K/uL (130-400); RDW Coefficient of Variation 14.9 % (11.5-14.5); RDW Standard Deviation 48.9 fL (36.4-46.3); Red Blood Count 3.56 M/uL (4.70-6.10); White Blood Count 9.09 K/ul (4.8-10.8)
[2024-07-19] MEDS: SODIUM CHLORIDE 0.9% 1,000 ML IV ONE (11:04)
[2024-07-19 11:06] LABS: BUN Creatinine Ratio 11.2 (10-20); Calcium 8.6 mg/dl (8.6-10.3); Magnesium 1.4 mg/dl (1.7-2.4); Potassium 4.3 mmol/L (3.5-5.1)
--- NOTE | 2024-07-19 11:24 | Discharge Summary ---
Discharge Summary Date of Service July 19, 2024 Principal Dx & Hospital Course #1 = Principal Diagnosis (1) Orthostatic syncope: (2) ANTOLIN (acute kidney injury): Suspect ATN from hypotension (3) Clostridium difficile diarrhea: (4) Severe protein-calorie malnutrition: (5) Type 1 diabetes mellitus with hypoglycemia: (6) Chronic osteomyelitis involving hand: Versus chronic inflammatory arthritis (7) Methamphetamine use: (8) Hypothyroidism: (9) Methadone use: (10) Irritable bowel syndrome with diarrhea: (11) Chronic renal failure (CRF), stage 3 (moderate): Plan Patient is a 39-year-old gentleman with multiple medical issues and ongoing methamphetamine use. Also on chronic methadone maintenance therapy. Had recently been treated with 6 weeks of IV antibiotics at [facility]. Presented to the emergency room with an acute syncopal event. He was noted to be quite hypotensive. Also noted to be hypoglycemic. Patient was admitted for concerns of sepsis. He was given fluid resuscitation. And so on broad-spectrum antibiotics for concerns of possible sepsis concerned that he had ongoing infection of his of his right hand. Patient was evaluated by orthopedics. Also evaluated by infectious disease. He had additional imaging and/MRI of his hand. Ultimately was determined that his right hand shows evidence of chronic osteomyelitis. Images were also reviewed by rheumatology remotely and there were did not seem to be any evidence of a rheumatological/inflammatory arthritis to explain his imaging on his hand. It was recommended that patient be observed off of all antibiotics. Blood cultures were sterile. The patient did well off of antibiotics. However, patient continued to be quite orthostatic. He also continued to have some issues with hypoglycemia. Patient also presented with some acute kidney injury which improved with some hydration. Suspect patient has a component of chronic renal dysfunction as that is baseline at the time of discharge. Patient was seen by cardiology for his orthostasis. Echocardiogram was unremarkable. It was learned that the patient had been on midodrine at some time in the past for persistent orthostasis. Midodrine was restarted. It was titrated up to 10 mg 3 times daily. He is also given some additional fluid boluses. The patient has a longstanding complaints of diarrhea. This had been evaluated and worked up with negative C. difficile culture and negative fecal fat when he was in [facility] just several weeks ago. However continue to plague him. GI consultation was obtained here because it was recommended that he undergo colonoscopy and his previous discharges. Stool studies were repeated. This time he did test positive for C. difficile diarrhea. He was started on oral vancomycin. Patient's laboratory studies stabilized his electrolytes were repleted. His blood pressures improved to the point where he least was not passing out or feeling lightheaded or dizzy when getting up and walking to the bathroom. His vital signs close that shows some blood pressures that dropped with changes in position but again he was no longer symptomatic. As his renal function improved and as his overall oral intake improved he no longer had episodes of hypoglycemia. He was tolerating his usual insulin dosages. Patient was really quite deconditioned due to his overall medical co ndition and prolonged hospitalizations over the last 2 months. He was evaluated by therapies. Case management was involved in his care and he was evaluated for possible placement to [facility] for acute inpatient rehabilitation. He was evaluated by their services and deemed appropriate candidate and insurance approval was obtained. On the day of discharge patient reports he was up and ambulating to the bathroom without lightheadedness or dizziness. He was tolerating his full diabetic diet. His diarrhea was about the same but manageable as it has been for many months. I believe that he can continue with ongoing evaluation and treatments at the rehab. He may need some intermittent electrolyte replacement and intermittent fluid boluses which can be done there but would benefit greatly from starting a more intensive physical therapy regimen. Notes For Next Care Provider Consider monitoring electrolytes and renal function at least weekly Complete course of oral vancomycin Consider outpatient hand surgeon evaluation to consider surgical intervention on patient's chronic osteomyelitis of his hand Monitor orthostatic vital signs Medication Changes From Visit Mag oxide 2 times daily Vancomycin for additional 12 days for C. difficile diarrhea Admission HPI Per Admitting Provider 39-year-old male with past medical history significant for syncope and collapse, history of hyponatremia, bipolar disorder, major depressive disorder episode, history of ANTOLIN, history of hypotension, history of ongoing methamphetamine abuse, severe protein calorie malnutrition, type 1 diabetes with diabetic polyneuropathy, severe hypothyroidism, presents with syncopal episodes. Patient was discharged from [facility] on 06/09/24 after 6 weeks of hospital for IV Ancef for osteomyelitis and status post I&D x 2 for right upper extremity abscess. He was again admitted to [facility] on 06/26/2024 and discharged on 06/30/2024 for syncope and fall. He has ongoing chronic loose stools and his GI pathogen panel and C. difficile were all negative as per discharge summary and GI recommend outpatient colonoscopy. He smokes 1 pack of cigarettes daily. Ongoing methamphetamines. Last methamphetamine use was 2 days ago as per patient. In [facility] his TSH was greater than 100 due to noncompliance and received IV Synthroid. He also had episode of severe hypoglycemia with blood glucose 18 improved with dextrose. He declined rehab for methamphetamine and was discharged on 06/30/24. Patient lives with his parents. His mother states patient is very weak and needs assistance with ambulation. Whenever he standing he is feeling dizzy and is passing out. He passes out for few seconds. Having multiple episodes of syncope.. He was feeling stiff during the episode. He is also having a lot of nausea and diarrhea and not able to eat anything. Patient alert and oriented. Denies any headache. No runny nose or sore throat. Denies any chest pain. Denies shortness of breath. Denies abdominal pain. Micturating okay. He was hypotensive received fluids. His creatinine was 2.9. Also having hyperglycemia. Initial lactic acid 2.4 and repeat is 0.7. TSH is 24.4 and free T40.8. COVID flu and RSV negative. Resting comfortably currently. Still has open wound in between right fingers. Past medical history. As mentioned above Past surgical history. Drainage of the right forearm/wrist lesion on 04/24/2024 Social history smokes 0.5/1 pack a day. Vapes nicotine, TSH, flavoring. No alcohol use. Using methamphetamines last was 2 days ago. Family history. Aunt has alcoholism. Father alcoholism. Mother alcoholism. Mother has mental disorder. Uncle has mental disorder. Admission Exam Per Admitting Provider See H&P Discharge Exam Constitutional: Alert, underweight/cachectic, nontoxic HEENT: Mucous membranes moist. Lungs: Clear to auscultation, decreased, no wheezes rales or rhonchi CV: S1-S2, regular Abdomen: Soft, nontender, nondistended Extremities: No significant edema in lower extremities, right hand deformities due to surgical intervention, no redness, no swelling, no tenderness, patient keeps hand in a rapid chronically Neuro: No focal deficits Psych: Cooperative, normal mood Updated Medication List Medication Instructions Recorded Confirmed Type Methadone 116 mg PO DAILY 04/19/23 07/14/24 History gabapentin 300 mg capsule 300 mg PO TID 06/08/23 07/14/24 History insulin glargine 100 unit/mL (3 4 unit (0.04 mL) subcut PM #3 mL 06/14/23 07/14/24 Rx mL) subcutaneous pen (Lantus Solostar U-100 Insulin) insulin aspart U-100 100 unit/mL 2 - 3 unit subcut ACHS 07/14/24 07/14/24 History subcutaneous solution (Novolog U-100 Insulin aspart) levothyroxine 200 mcg tablet 200 mcg PO QAM 07/14/24 07/14/24 History quetiapine 300 mg tablet 150 mg PO HS 07/14/24 07/14/24 History famotidine 20 mg tablet 20 mg PO BID #60 tabs 07/19/24 Rx magnesium oxide 400 mg (241.3 mg 400 mg PO BID #60 tabs 07/19/24 Rx magnesium) tablet midodrine 10 mg tablet 10 mg PO TID@0800,1200,1700 #90 07/19/24 Rx tabs vancomycin 125 mg capsule 125 mg PO QID 10 days #40 caps 07/19/24 Rx Hospital Stay Data Consultations 07/14/24 20:10 ED Decision to Admit Stat 07/15/24 08:00 Consult Cardiology Routine Consult Infectious Diseases Routine Consult Orthopedic Surgery Routine 07/15/24 11:33 HIM [Consult Health Information Management] Routine 07/16/24 18:02 Consult Gastroenterology Routine Diagnostic Imagining Performed 07/14/24 16:49 CT cervical spine wo con Stat CT head/brain wo con Stat 07/15/24 11:30 MR hand RT wo/w con Routine Reviewed imaging, laboratory and diagnostic studies. Pertinent findings as below. WBCs 9.0 Hemoglobin 10.7 Platelets 340 Sodium 138 Potassium 4.3 Carbon dioxide 25 BUN 22 Creatinine 1.97 Glucose 201 Magnesium 1.4, repleted before discharge MRI of the hand shows chronic fifth phalangeal fracture with incomplete fusion Erosive changes of the third metacarpal phalangeal and third PIP joints Chronic tenosynovitis of the tendons of the right hand Echocardiogram shows normal ejection fraction 50 to 55%,no significant valvular vegetation or valvular dysfunction Pending Results Patient Have Any Pending Studies at Discharge: No Discharge Instructions Given to Patient (Per Discharging Provider) Recommend evaluation by a hand surgeon after discharge from rehab Stay well-hydrated Change positions slowly to minimize risk of lightheadedness and dizziness and significant blood pressure drop Total Time Total Time Spent Total Time Spent (In Minutes): 42
[2024-07-19] MEDS: MAGNESIUM SULFATE / D5W 1 GM/100 ML BAG IV SCH (12:02)
[2024-07-22 03:23] LABS: IgA Serum 432 mg/dL (47-310); Tis Trans IgA <1.0 U/mL
== END 2024-07-19 16:36 | DRG 871 ==
LOC: ED 16:37 → SUATTDRO 21:18 → 4W 21:18 → 3N 07-15 16:58
DX: K58.0 Irritable bowel syndrome with diarrhea; S00.83XA Contusion of other part of head, initial encounter; Z91.148 Patient's other noncompliance with medication regimen for other reason; E10.42 Type 1 diabetes mellitus with diabetic polyneuropathy; T38.1X6A Underdosing of thyroid hormones and substitutes, initial encounter; F17.210 Nicotine dependence, cigarettes, uncomplicated; A41.9 Sepsis, unspecified organism; E87.20 Acidosis, unspecified; I95.1 Orthostatic hypotension; N17.0 Acute kidney failure with tubular necrosis; Z79.890 Hormone replacement therapy; F15.10 Other stimulant abuse, uncomplicated; D64.9 Anemia, unspecified; Z87.891 Personal history of nicotine dependence; E10.649 Type 1 diabetes mellitus with hypoglycemia without coma; E86.0 Dehydration; F31.9 Bipolar disorder, unspecified; E43 Unspecified severe protein-calorie malnutrition; N18.30 Chronic kidney disease, stage 3 unspecified; Z79.4 Long term (current) use of insulin; M86.641 Other chronic osteomyelitis, right hand; A04.72 Enterocolitis due to Clostridium difficile, not specified as recurrent; E03.9 Hypothyroidism, unspecified; W19.XXXA Unspecified fall, initial encounter; Z68.1 Body mass index [BMI] 19.9 or less, adult